=== PATIENT | male | born 1935 | race Caucasian/White ===

== ENCOUNTER 2018-01-25 08:56 | Outpatient (RCR) | payer MEDICARE, OTHER, SELFPAY ==
[2018-01-25 10:11] VITALS: BP 168/87; PULSE 67; RESP 18; TEMP 35.7; BMI 28.0
--- NOTE | 2018-01-25 11:51 | HP.PCM_ITS ---
(1) MRSA (methicillin resistant Staphylococcus aureus) infection Status: Acute Current Visit: Yes Code(s): A49.02 - Methicillin resistant Staphylococcus aureus infection, unspecified site (2) Malnutrition Status: Acute Current Visit: Yes Code(s): E46 - Unspecified protein-calorie malnutrition (3) Wound infection Status: Acute Current Visit: Yes Code(s): T14.8XXA - Other injury of unspecified body region, initial encounter; L08.9 - Local infection of the skin and subcutaneous tissue, unspecified (4) CKD (chronic kidney disease), stage III Status: Chronic Current Visit: Yes (5) Cellulitis Status: Chronic Current Visit: Yes Code(s): L03.90 - Cellulitis, unspecified (6) Lymphedema of lower extremity Status: Chronic Current Visit: Yes Qualifiers: Code(s): I89.0 - Lymphedema, not elsewhere classified (7) Nonstaphylococcal scalded skin syndrome Status: Chronic Current Visit: Yes Code(s): L53.8 - Other specified erythematous conditions History of Present Illness Date of Service: 01/25/18 Chief Complaint: Lymphedema legs, ruptured blister R great toe History of Wound: 82-year-old white male who has history of lymphedema and 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 Patient was last seen on for basically around the same thing. Patient has pumps at home he does use twice daily. Time patient complains that it is not only his lower leg but the sole of his foot that has developed a open ulcer. Patient complains that the drainage of clear fluid from his left leg is so much that it puddles all over his house which he finds annoying. So now he has developed cellulitis in the left lower leg with increased swelling and lymphedema. Patient has been soaking his foot and leg and a tub water but not Epson salt. We will be checking his pre-albumin and we did cultures today also will order him antibiotics because he finally has an infection and start him on levofloxacin cassettes when he was on last time and metronidazole because he did have anaerobes the last time. Past Medical History Past Medical History: Chronic Problems Cellulitis (Chronic) Lymphedema of lower extremity (Chronic) Nephrolithiasis (Chronic) Gout (Chronic) CKD (chronic kidney disease), stage III (Chronic) BPH (benign prostatic hyperplasia) (Chronic) Benign hypertension (Chronic) Anemia (Chronic) Chronic renal insufficiency, stage III (moderate) (Chronic) Nonstaphylococcal scalded skin syndrome (Chronic) Arthritis (Chronic) Past Medical History: Scalded skin syndrome left lower leg Surgical History: noncontributory Allergies/Adverse Reactions: Allergies No Known Allergies Allergy (Verified 04/13/17 14:20) Home Medications: Ambulatory Orders Medication Instructions Recorded Allopurinol 300 mg PO DAILY 10/10/16 Cholecalciferol (Vitamin D3) 50,000 unit PO BUGROS 10/10/16 [Vitamin D3] Doxazosin Mesylate 8 mg PO DAILY 10/10/16 Hydrochlorothiazide 12.5 mg PO TUTHSA PRN 10/10/16 Labetalol [Trandate (Beta Lily)] 200 mg PO BID 10/10/16 Lisinopril [Zestril] 40 mg PO DAILY 10/10/16 Pravastatin [Pravachol] 40 mg PO QHS 10/10/16 hydrALAZINE [Apresoline] 50 mg PO 4X/DAY 10/10/16 Acetaminophen [Tylenol Tablet] 650 mg PO Q6H PRN PRN tablet 04/15/17 Finasteride [Proscar] 5 mg PO DAILY #30 tablet 04/15/17 - Family History Paternal Diabetes Maternal Heart Disease Lives: With Family Smoking Status: Never smoker Alcohol: None Drugs: None Review of Systems Constitutional: Denies: Chills, Fever Eyes: Denies: Blurred vision, Drainage, Pain HEENT: Denies: Difficulty Hearing, Difficulty Swallowing, Sore Throat, Visual Changes Cardiovascular: Denies: Chest Pain, Palpitations, Syncope Respiratory: Denies: Cough, Shortness of Breath Gastrointestinal: Denies: Abdominal Pain, Nausea, Vomiting Genitourinary: Denies: Dysuria, Frequency Musculoskeletal: Denies: Joint Pain, Muscle pain Skin: Reports: - - Altered syndrome to left lower leg. Denies: Jaundice, Rash Neurological: Denies: Balance problems, Change in Speech, Difficulty swallowing , Focal weakness Psychiatric: Denies: Anxiety, Depression Endocrine: Denies: Change in Body Habitus Hematologic/ Lymphatic: Denies: Adenopathy - Physical Exam Vital Signs Temp Pulse Resp BP 96.2 F L 67 18 168/87 H 01/25/18 10:11 01/25/18 10:11 01/25/18 10:11 01/25/18 10:11 General: Oriented x3, Cooperative, Well developed HEENT: Atraumatic, PERRLA Oral: Moist Mucosa Neck: Supple, No JVD Lungs: Clear to auscultation, Normal air movement Cardiovascular: Regular rate, Regular Rhythm Abdomen: Bowel Sounds Present, Soft, Non Tender, No Hepato-splenomegaly Extremities: No clubbing, No edema, - - Scalded skin syndrome to left lower leg and on the pad of his left foot Wound Measurements and Assessment WC - Nurse 1 - General Ulcer Measurement Start: 01/25/18 09:27 Freq: Status: Active Protocol: Activity Type Activity Date Activity User E-Sign Co-Sign Detail Recorded Client Recorded Date Recorded By Document 01/25/18 10:11 DV [id number] 01/25/18 10:58 DV 01/25/18 10:11 Wound Center Nurse 1 [Ulcer Assessment] #5 Right Medial Ankle -Combined with other wound No -Current Size (cm) - Length 3.0 -Current Size (cm) - Width 3.0 -Current Size (cm) - Depth 0.1 -Total Square Cm 9.00 -Photo Taken Yes -Epithelialization None Present -Tunneling No -Undermining/Tunneling No -Circular Undermining No -Classification - Thickness Full Thickness without Exposed Support Structure -Exudate Amt Small (1-33%) -Exudate Type Serosanguineous -Wound Margin Flat & Intact -Granulation Amt None Present (0 %) -Granulation Quality N/A -Slough/Fibrin Yes -Necrosis Amt Large (67-100%) -Necrotic Tissue Type Adherent Slough -Structure Exposed None/Limited to Skin Breakdown -Texture ([place]-wound Skin Appearance) Assessed Excoriation Localized Edema Scarring Rash -Moisture ([place]-wound Skin Appearance Assessed ) Maceration Weeping Dry/Scaly -Color ([place]-wound Skin Appearance) Assessed Erythema Hemosiderin Staining -Temperature ([place]-wound Skin No Abnormality Appearance) (Pt Warm) -Tenderness on Palpation ([place]-wound Yes Skin Appearance) -Ulcer Cleansing Wound Cleanser -Foul Odor after Cleansing No -Anesthetic Used 4% Lidocaine Solution #4 LLE -Combined with other wound No -Current Size (cm) - Length 57.0 -Current Size (cm) - Width 54.5 -Current Size (cm) - Depth 0.3 -Total Square Cm 3106.50 -Photo Taken Yes -Epithelialization None Present -Tunneling No -Undermining/Tunneling No -Circular Undermining No -Classification - Thickness Full Thickness without Exposed Support Structure -Exudate Amt Large (67-100%) -Exudate Type Serosanguineous -Wound Margin Indistinct, Non -Visible -Granulation Amt Small (1-33%) -Granulation Quality Pale [place] Red -Slough/Fibrin Yes -Necrosis Amt Large (67-100%) -Necrotic Tissue Type Adherent Slough -Structure Exposed None/Limited to Skin Breakdown -Texture ([place]-wound Skin Appearance) Assessed Excoriation Localized Edema Scarring Rash -Moisture ([place]-wound Skin Appearance Assessed ) Maceration Weeping Dry/Scaly -Color ([place]-wound Skin Appearance) Assessed Erythema Mottled -Temperature ([place]-wound Skin No Abnormality Appearance) (Pt Warm) -Tenderness on Palpation ([place]-wound Yes Skin Appearance) -Ulcer Cleansing Wound Cleanser -Foul Odor after Cleansing Yes -Anesthetic Used 4% Lidocaine Solution [Edema Assessment] -Lower Limb Edema Present Yes -Right Calf (cm) 33.2 -Right Ankle (cm) 32.3 -Left Calf (cm) 44.5 -Left Ankle (cm) 32.4 WC - Nurse 2 - General Ulcer CM Notes Start: 01/25/18 09:27 Freq: Status: Active Protocol: Activity Type Activity Date Activity User E-Sign Co-Sign Detail Recorded Client Recorded Date Recorded By Document 01/25/18 11:25 MW [id number] 01/25/18 11:33 MW 01/25/18 11:25 Wound Center Nurse 2 [Procedure/Treatment] #5 Right Medial Ankle -Time 11:31 -Correct Patient Yes -Correct Side, Site, Position Yes -Correct Procedure Yes -Procedure Performed No -Post Debridement Size (cm) - Length 0 -Post Debridement Size (cm) - Width 0 -Post Debridement Size (cm) - Depth 0 -Total Square Cm 0 -Wound/Ulcer Outcome Healed- Epithelialized -Ulcer Cleansing Rinsed/ Irrigated with Saline -Foul Odor after Cleansing No -Bioengineered Tissue No -Bleeding Controlled with NA -Treatment Response Procedure Tolerated Well #4 LLE -Time 11:28 -Correct Patient Yes -Correct Side, Site, Position Yes -Correct Procedure Yes -Procedure Performed No -Post Debridement Size (cm) - Length 57.0 -Post Debridement Size (cm) - Width 54.5 -Post Debridement Size (cm) - Depth 0.3 -Total Square Cm 3106.50 -Wound/Ulcer Outcome Not Healed -Ulcer Cleansing Rinsed/ Irrigated with Saline -Foul Odor after Cleansing No -Bioengineered Tissue No -Bleeding Controlled with NA -Treatment Response Procedure Tolerated Well [See Physician Procedure note for Specifics] Musculoskeletal: No Tenderness to Palpation of Joints or Extremities Lymphatic: No Cervical, Supraclavicular, or Inguinal Adenopathy Neurological: Cranial nerves II-XII grossly intact, Neuro grossly intact Psych/Mental Status: Normal Affect, Appropriate Debridement Note Post-Debridement Measurements/Treatment WC - Nurse 2 - General Ulcer CM Notes Start: 01/25/18 09:27 Freq: Status: Active Protocol: Activity Type Activity Date Activity User E-Sign Co-Sign Detail Recorded Client Recorded Date Recorded By Document 01/25/18 11:25 MW [id number] 01/25/18 11:33 MW 01/25/18 11:25 Wound Center Nurse 2 #5 Right Medial Ankle -Time 11:31 -Correct Patient Yes -Correct Side, Site, Position Yes -Correct Procedure Yes -Procedure Performed No -Post Debridement Size (cm) - Length 0 -Post Debridement Size (cm) - Width 0 -Post Debridement Size (cm) - Depth 0 -Total Square Cm 0 -Wound/Ulcer Outcome Healed- Epithelialized -Ulcer Cleansing Rinsed/ Irrigated with Saline -Foul Odor after Cleansing No -Bioengineered Tissue No -Bleeding Controlled with NA -Treatment Response Procedure Tolerated Well #4 LLE -Time 11:28 -Correct Patient Yes -Correct Side, Site, Position Yes -Correct Procedure Yes -Procedure Performed No -Post Debridement Size (cm) - Length 57.0 -Post Debridement Size (cm) - Width 54.5 -Post Debridement Size (cm) - Depth 0.3 -Total Square Cm 3106.50 -Wound/Ulcer Outcome Not Healed -Ulcer Cleansing Rinsed/ Irrigated with Saline -Foul Odor after Cleansing No -Bioengineered Tissue No -Bleeding Controlled with NA -Treatment Response Procedure Tolerated Well No debridement was completed today Assessment/Plan Cultures obtained started on antibiotics will get labs of CBC and a pre-albumin Active Problems Cellulitis (Chronic) Lymphedema of lower extremity (Chronic) CKD (chronic kidney disease), stage III (Chronic) Wound infection (Acute) MRSA (methicillin resistant Staphylococcus aureus) infection (Acute) Malnutrition (Acute) Nonstaphylococcal scalded skin syndrome (Chronic) Assessment: Lymphedema bilateral lower legs. Cellulitis left leg. Renal insufficiency. MRSA and wound infections Plan: Wash leg with Hibiclens well then. Wrap left lower leg with Xeroform dressings cover with Barb tape and double layer Tubigrip's to bilateral lower legs. Until the order comes and will be using herself to open areas optic to red areas and Barb and double layer Tubigrip. Heart levofloxacin 751 p.o. daily for 14 days and metronidazole 253 times a day ?14 days\. Call with results of his labs. Up in 1 week
[2018-01-25 16:47] LABS: Absolute Lymphocyte Count 0.49 X10^3/ul (0.83-4.51); Absolute Neutrophil Count 4.9 X10^3/uL (2.0-7.7); Differential Indicated SCAN CRITERIA MET; Eosinophil# 0.04 X10^3/uL; Eosinophils% 0.7 % (0-5); Hematocrit 35.8 % (40-54); Lymphocyte # 0.49 X10^3/ul (4.0); Lymphocyte % 8.5 % (19-41); Mean Corp Hgb Conc 30.7 g/gl (32-36); Mean Corpuscular Hgb 29.4 pg (27.0-32.0); Mean Corpuscular Volume 95.7 fL (80-94); Mean Platelet Vol. 10.3 fl (6.2-12.0); Monocyte# 0.39 X10^3/uL; Monocyte% 6.7 % (0-10); Neutrophil # 4.85 X10^3/uL (2.7-7.7); Neutrophil % 83.9 % (47-70); POSITIVE COUNT NO; POSITIVE DIFFERENTIAL YES; POSITIVE MORPHOLOGY NO; Platelet Count 181 K/mm3 (150-450); RBC Distribution Width CV 14.2 % (11.6-14.6); RBC Distribution Width SD 48.7 fl (35.1-43.9); Red Blood Count 3.74 M/mm3 (4.6-6.2); White Blood Count 5.8 K/mm3 (4.4-11.0)
== END 2018-01-26 23:59 ==
LOC: WC 08:56
PROVIDERS: Family Provider Family Medicine; PCP Family Medicine; Visit Provider Nurse Practitioner
DX: T14.8XXA Other injury of unspecified body region, initial encounter (principal); L08.9 Local infection of the skin and subcutaneous tissue, unspecified; Z86.14 Personal history of Methicillin resistant Staphylococcus aureus infection; N18.3 Chronic kidney disease, stage 3 (moderate); I89.0 Lymphedema, not elsewhere classified; L03.90 Cellulitis, unspecified; L53.8 Other specified erythematous conditions; M19.90 Unspecified osteoarthritis, unspecified site; N40.0 Benign prostatic hyperplasia without lower urinary tract symptoms; M10.9 Gout, unspecified; Z79.899 Other long term (current) drug therapy
CPT/HCPCS: 84134; 85025; 87070; 87075; 87077; 87186; 87205; 99211; 99213; G0463

== ENCOUNTER 2018-02-15 10:30 | Outpatient (RCR) | payer MEDICARE, OTHER, SELFPAY ==
[2018-01-27 01:25] VITALS: PULSE 67; RESP 18; TEMP 35.7
[2018-02-01 09:58] VITALS: BP 92/46; PULSE 67; RESP 18; TEMP 35.7
--- NOTE | 2018-02-01 11:13 | PCM.WC.PN ---
(1) Wound infection Status: Acute Current Visit: No Code(s): T14.8XXA - Other injury of unspecified body region, initial encounter; L08.9 - Local infection of the skin and subcutaneous tissue, unspecified (2) Lymphedema of lower extremity Status: Chronic Current Visit: No Qualifiers: Code(s): I89.0 - Lymphedema, not elsewhere classified (3) Staph aureus infection Status: Acute Current Visit: Yes Code(s): A49.01 - Methicillin susceptible Staphylococcus aureus infection, unspecified site (4) Staphylococcal scalded skin syndrome Status: Acute Current Visit: Yes Code(s): L00 - Staphylococcal scalded skin syndrome Type of Wound Date of Service: 02/01/18 Chief Complaint: Lymphedema legs, ruptured blister R great toe History of Wound: 82-year-old white male who has history of lymphedema and 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 Patient was last seen on for basically around the same thing. Patient has pumps at home he does use twice daily. Time patient complains that it is not only his lower leg but the sole of his foot that has developed a open ulcer. Patient complains that the drainage of clear fluid from his left leg is so much that it puddles all over his house which he finds annoying. So now he has developed cellulitis in the left lower leg with increased swelling and lymphedema. Patient has been soaking his foot and leg and a tub water but not Epson salt. We will be checking his pre-albumin and we did cultures today also will order him antibiotics because he finally has an infection and start him on levofloxacin cassettes when he was on last time and metronidazole because he did have anaerobes the last time. Progress of Wound: The left lower leg is already started to improve using Xeroform. Patient has only been on Levaquin for 2 days but already showing improvement. Will continue the same treatment. Cultures came back positive for staph aureus no anaerobes were noted. - Physical Exam Vital Signs Temp Pulse Resp BP 96.2 F L 67 18 92/46 L 02/01/18 09:58 02/01/18 09:58 02/01/18 09:58 02/01/18 09:58 General: Oriented x3, Cooperative, Well developed HEENT: Atraumatic, PERRLA Oral: Moist Mucosa Neck: Supple, No JVD Lungs: Clear to auscultation, Normal air movement Cardiovascular: Regular rate, Regular Rhythm Abdomen: Bowel Sounds Present, Soft, Non Tender, No Hepato-splenomegaly Extremities: No clubbing, No edema, Edema, - - Scalded skin syndrome left lower leg, edema Wound Measurements and Assessment WC - Nurse 1 - General Ulcer Measurement Start: 02/01/18 09:54 Freq: Status: Active Protocol: Activity Type Activity Date Activity User E-Sign Co-Sign Detail Recorded Client Recorded Date Recorded By Document 02/01/18 09:58 BMF [id number] 02/01/18 10:15 BMF 02/01/18 09:58 Wound Center Nurse 1 [Ulcer Assessment] #4 LLE -Combined with other wound No -Current Size (cm) - Length 40 -Current Size (cm) - Width 36 -Current Size (cm) - Depth 0.1 -Total Square Cm 1440 -Photo Taken No -Tunneling No -Undermining/Tunneling No -Exudate Amt Large (67-100%) -Exudate Type Serosanguineous -Granulation Amt Large (67-100%) -Granulation Quality Red -Slough/Fibrin Yes -Necrosis Amt Small (1-33%) -Necrotic Tissue Type Adherent Slough -Structure Exposed None/Limited to Skin Breakdown -Texture ([place]-wound Skin Appearance) Scarring -Moisture ([place]-wound Skin Appearance Maceration ) Weeping Dry/Scaly -Color ([place]-wound Skin Appearance) Erythema Hemosiderin Staining -Temperature ([place]-wound Skin No Abnormality Appearance) (Pt Warm) -Tenderness on Palpation ([place]-wound No Skin Appearance) -Ulcer Cleansing Wound Cleanser -Foul Odor after Cleansing No -Anesthetic Used 4% Lidocaine Solution [Edema Assessment] -Lower Limb Edema Present Yes -Left Calf (cm) 38.3 -Left Ankle (cm) 36 WC - Nurse 2 - General Ulcer CM Notes Start: 02/01/18 09:54 Freq: Status: Active Protocol: Activity Type Activity Date Activity User E-Sign Co-Sign Detail Recorded Client Recorded Date Recorded By Document 02/01/18 10:31 MW [id number] 02/01/18 10:33 MW 02/01/18 10:31 Wound Center Nurse 2 [Procedure/Treatment] #4 LLE -Time 10:31 -Correct Patient Yes -Correct Side, Site, Position Yes -Correct Procedure Yes -Procedure Performed Yes -Type of Procedure Debridement -Clinical Debridement Selective -Post Debridement Size (cm) - Length 40.0 -Post Debridement Size (cm) - Width 26.0 -Post Debridement Size (cm) - Depth 0.1 -Total Square Cm 1040.00 -Wound/Ulcer Outcome Not Healed -Ulcer Cleansing Rinsed/ Irrigated with Saline -Foul Odor after Cleansing No -Bioengineered Tissue No -Bleeding Controlled with Pressure -Treatment Response Procedure Tolerated Well [See Physician Procedure note for Specifics] Pain Scale: 0-10 Numeric [Pain] -Is Patient Pain Free? Yes Musculoskeletal: No Tenderness to Palpation of Joints or Extremities Lymphatic: No Cervical, Supraclavicular, or Inguinal Adenopathy Neurological: Cranial nerves II-XII grossly intact, Neuro grossly intact Psych/Mental Status: Normal Affect, Appropriate, Alert and oriented to time, place, person, mood and affect Debridement Note Post-Debridement Measurements/Treatment WC - Nurse 2 - General Ulcer CM Notes Start: 02/01/18 09:54 Freq: Status: Active Protocol: Activity Type Activity Date Activity User E-Sign Co-Sign Detail Recorded Client Recorded Date Recorded By Document 02/01/18 10:31 MW [id number] 02/01/18 10:33 MW 02/01/18 10:31 Wound Center Nurse 2 #4 LLE -Time 10:31 -Correct Patient Yes -Correct Side, Site, Position Yes -Correct Procedure Yes -Procedure Performed Yes -Type of Procedure Debridement -Clinical Debridement Selective -Post Debridement Size (cm) - Length 40.0 -Post Debridement Size (cm) - Width 26.0 -Post Debridement Size (cm) - Depth 0.1 -Total Square Cm 1040.00 -Wound/Ulcer Outcome Not Healed -Ulcer Cleansing Rinsed/ Irrigated with Saline -Foul Odor after Cleansing No -Bioengineered Tissue No -Bleeding Controlled with Pressure -Treatment Response Procedure Tolerated Well Pain Scale: 0-10 Numeric Is Patient Pain Free? Yes Wound debrided: Lower leg scalded syndrome Type of Debridement: Selective debridement Anesthesia Used: 5% Lidocaine Gel Depth: Down to and including healthy tissue Percentage of wound debrided: 100 Instrument Used: - - Because Tissue Removed: Devitalized tissue some fibrin Severity: Limited To Skin Breakdown Amount of bleeding with debridement: None Bleeding Controlled with: Pressure Patient tolerated procedure well Assessment/Plan Active Problems Staph aureus infection (Acute) Staphylococcal scalded skin syndrome (Acute) Assessment: Lymphedema bilateral lower legs. Cellulitis left leg. Renal insufficiency. MRSA and wound infections Plan: Wash leg with Hibiclens well then. Wrap left lower leg with Xeroform dressings cover with Barb tape and double layer Tubigrip's to bilateral lower legs. Until the order comes and will be using herself to open areas optic to red areas and Barb and double layer Tubigrip. New Levaquin 750 1 p.o. daily for infection on the leg and you the metronidazole. Heart levofloxacin 751 p.o. daily for 14 days and metronidazole 253 times a day ?14 days\. Call with results of his labs. Up in 1 week
[2018-02-08 11:19] VITALS: BP 130/59; PULSE 69; RESP 18; TEMP 36.6
--- NOTE | 2018-02-08 14:12 | PCM.WC.PN ---
(1) Wound infection Status: Acute Current Visit: Yes Code(s): T14.8XXA - Other injury of unspecified body region, initial encounter; L08.9 - Local infection of the skin and subcutaneous tissue, unspecified (2) Lymphedema of lower extremity Status: Chronic Current Visit: Yes Qualifiers: Code(s): I89.0 - Lymphedema, not elsewhere classified (3) Staph aureus infection Status: Acute Current Visit: Yes Code(s): A49.01 - Methicillin susceptible Staphylococcus aureus infection, unspecified site (4) Staphylococcal scalded skin syndrome Status: Acute Current Visit: Yes Code(s): L00 - Staphylococcal scalded skin syndrome Type of Wound Date of Service: 02/08/18 Chief Complaint: Lymphedema legs, ruptured blister R great toe History of Wound: 82-year-old white male who has history of lymphedema and 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 Patient was last seen on for basically around the same thing. Patient has pumps at home he does use twice daily. Time patient complains that it is not only his lower leg but the sole of his foot that has developed a open ulcer. Patient complains that the drainage of clear fluid from his left leg is so much that it puddles all over his house which he finds annoying. So now he has developed cellulitis in the left lower leg with increased swelling and lymphedema. Patient has been soaking his foot and leg and a tub water but not Epson salt. We will be checking his pre-albumin and we did cultures today also will order him antibiotics because he finally has an infection and start him on levofloxacin cassettes when he was on last time and metronidazole because he did have anaerobes the last time. Progress of Wound: The left lower leg is already started to improve using Xeroform. Patient has only been on Levaquin for 2 days but already showing improvement. Will continue the same treatment. Cultures came back positive for staph aureus no anaerobes were noted. Having issues with the ankles breaking down from the Tubigrip will try padding better. Patient is doing his own dressing changes we debrided more on the left lateral lower leg of slough will start him on Aquacel there in those open areas - Physical Exam Vital Signs Temp Pulse Resp BP 97.8 F 69 18 130/59 H 02/08/18 11:19 02/08/18 11:19 02/08/18 11:19 02/08/18 11:19 General: Oriented x3, Cooperative, Well developed HEENT: Atraumatic, PERRLA Oral: Moist Mucosa Neck: Supple, No JVD Lungs: Clear to auscultation, Normal air movement Cardiovascular: Regular rate, Regular Rhythm Abdomen: Bowel Sounds Present, Soft, Non Tender, No Hepato-splenomegaly Extremities: No clubbing, No edema Skin: - - scalded skin syndrome open ulcers left lateral lower leg Wound Measurements and Assessment WC - Nurse 1 - General Ulcer Measurement Start: 02/01/18 09:54 Freq: Status: Active Protocol: Activity Type Activity Date Activity User E-Sign Co-Sign Detail Recorded Client Recorded Date Recorded By Document 02/08/18 11:19 [id number] 02/08/18 11:23 02/08/18 11:19 Wound Center Nurse 1 [Ulcer Assessment] #4 LLE -Combined with other wound No -Current Size (cm) - Length 35.0 -Current Size (cm) - Width 28.0 -Current Size (cm) - Depth 0.2 -Total Square Cm 980.00 -Photo Taken No -Epithelialization Small 1-33% -Tunneling No -Undermining/Tunneling No -Circular Undermining No -Classification - Thickness Full Thickness without Exposed Support Structure -Exudate Amt Large (67-100%) -Exudate Type Serous -Wound Margin Fibrotic Scar, Thickened Scar -Granulation Amt Large (67-100%) -Granulation Quality Red -Slough/Fibrin Yes -Necrosis Amt Small (1-33%) -Necrotic Tissue Type Adherent Slough -Structure Exposed Fascia Fat Layer Exposed -Texture ([place]-wound Skin Appearance) Excoriation Friable Localized Edema Scarring -Moisture ([place]-wound Skin Appearance Maceration ) Weeping -Color ([place]-wound Skin Appearance) Erythema Hemosiderin Staining -Temperature ([place]-wound Skin No Abnormality Appearance) (Pt Warm) -Tenderness on Palpation ([place]-wound Yes Skin Appearance) -Ulcer Cleansing hibiclens -Foul Odor after Cleansing No -Anesthetic Used 4% Lidocaine Solution [Edema Assessment] -Lower Limb Edema Present Yes -Right Calf (cm) 47.0 -Right Ankle (cm) 38.5 -Right Foot (cm) 30.0 -Left Calf (cm) 41.5 -Left Ankle (cm) 38.5 -Left Foot (cm) 30.0 WC - Nurse 2 - General Ulcer CM Notes Start: 02/01/18 09:54 Freq: Status: Active Protocol: Activity Type Activity Date Activity User E-Sign Co-Sign Detail Recorded Client Recorded Date Recorded By Document 02/08/18 11:41 MW [id number] 02/08/18 11:49 MW 02/08/18 11:41 Wound Center Nurse 2 [Procedure/Treatment] #4 LLE -Time 11:41 -Correct Patient Yes -Correct Side, Site, Position Yes -Correct Procedure Yes -Procedure Performed Yes -Type of Procedure Debridement -Clinical Debridement Subcutaneous -Post Debridement Size (cm) - Length 6.8 -Post Debridement Size (cm) - Width 8.0 -Post Debridement Size (cm) - Depth 0.1 -Total Square Cm 54.40 -Wound/Ulcer Outcome Not Healed -Ulcer Cleansing Rinsed/ Irrigated with Saline -Foul Odor after Cleansing No -Bioengineered Tissue No -Bleeding Controlled with Pressure -Treatment Response Procedure Tolerated Well [See Physician Procedure note for Specifics] Pain Scale: 0-10 Numeric [Pain] -Is Patient Pain Free? Yes Musculoskeletal: No Tenderness to Palpation of Joints or Extremities Lymphatic: No Cervical, Supraclavicular, or Inguinal Adenopathy Neurological: Cranial nerves II-XII grossly intact, Neuro grossly intact Psych/Mental Status: Normal Affect, Appropriate, Alert and oriented to time, place, person, mood and affect Debridement Note Post-Debridement Measurements/Treatment WC - Nurse 2 - General Ulcer CM Notes Start: 02/01/18 09:54 Freq: Status: Active Protocol: Activity Type Activity Date Activity User E-Sign Co-Sign Detail Recorded Client Recorded Date Recorded By Document 02/01/18 10:31 MW [id number] 02/01/18 10:33 MW Document 02/08/18 11:41 MW [id number] 02/08/18 11:49 MW 02/01/18 02/08/18 10:31 11:41 Wound Center Nurse 2 #4 LLE -Time 10:31 11:41 -Correct Patient Yes Yes -Correct Side, Site, Position Yes Yes -Correct Procedure Yes Yes -Procedure Performed Yes Yes -Type of Procedure Debridement Debridement -Clinical Debridement Selective Subcutaneous -Post Debridement Size (cm) - Length 40.0 6.8 -Post Debridement Size (cm) - Width 26.0 8.0 -Post Debridement Size (cm) - Depth 0.1 0.1 -Total Square Cm 1040.00 54.40 -Wound/Ulcer Outcome Not Healed Not Healed -Ulcer Cleansing Rinsed/ Rinsed/ Irrigated with Irrigated with Saline Saline -Foul Odor after Cleansing No No -Bioengineered Tissue No No -Bleeding Controlled with Pressure Pressure -Treatment Response Procedure Procedure Tolerated Well Tolerated Well Pain Scale: 0-10 Numeric Is Patient Pain Free? Yes Yes Wound debrided: Left lateral lower leg Type of Debridement: Excisional debridement Anesthesia Used: 5% Lidocaine Gel Depth: Down to and including healthy tissue, in the subcutaneous layer Percentage of wound debrided: 100 Instrument Used: 5mm curette Tissue Removed: Slough Severity: Limited To Skin Breakdown Amount of bleeding with debridement: None Bleeding Controlled with: Compression and gauze Patient tolerated procedure well Assessment/Plan Active Problems Staph aureus infection (Acute) Staphylococcal scalded skin syndrome (Acute) Lymphedema of lower extremity (Chronic) Wound infection (Acute) Assessment: Lymphedema bilateral lower legs. Cellulitis left leg. Renal insufficiency. MRSA and wound infections Plan: Wash leg with Hibiclens well then. Wrap left ankle and foot area with Xeroform dressings. Left lateral lower leg use Aquacel to open areas moistened cover gauze with Barb tape and double layer Tubigrip's to bilateral lower legs. Until the order comes and will be using herself to open areas optic to red areas and Barb and try cotton sleeve underneath Tubigrip double layer Tubigrip. New Levaquin 750 1 p.o. daily for infection on the leg and you the metronidazole. Heart levofloxacin 751 p.o. daily for 14 days and metronidazole 253 times a day ?14 days\. Up in 1 week
[2018-02-15 11:01] VITALS: RESP 16; TEMP 36.4
--- NOTE | 2018-02-15 12:39 | PCM.WC.PN ---
(1) Wound infection Status: Acute Current Visit: Yes Code(s): T14.8XXA - Other injury of unspecified body region, initial encounter; L08.9 - Local infection of the skin and subcutaneous tissue, unspecified (2) Lymphedema of lower extremity Status: Chronic Current Visit: Yes Qualifiers: Code(s): I89.0 - Lymphedema, not elsewhere classified (3) Staph aureus infection Status: Acute Current Visit: Yes Code(s): A49.01 - Methicillin susceptible Staphylococcus aureus infection, unspecified site (4) Staphylococcal scalded skin syndrome Status: Acute Current Visit: Yes Code(s): L00 - Staphylococcal scalded skin syndrome Type of Wound Date of Service: 02/15/18 Chief Complaint: Lymphedema legs, ruptured blister R great toe History of Wound: 82-year-old white male who has history of lymphedema and 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 Patient was last seen on for basically around the same thing. Patient has pumps at home he does use twice daily. Time patient complains that it is not only his lower leg but the sole of his foot that has developed a open ulcer. Patient complains that the drainage of clear fluid from his left leg is so much that it puddles all over his house which he finds annoying. So now he has developed cellulitis in the left lower leg with increased swelling and lymphedema. Patient has been soaking his foot and leg and a tub water but not Epson salt. We will be checking his pre-albumin and we did cultures today also will order him antibiotics because he finally has an infection and start him on levofloxacin cassettes when he was on last time and metronidazole because he did have anaerobes the last time. Progress of Wound: The left lower leg scalded skin is resolving. Patient has only been on Levaquin for 2 days but already showing improvement. Using Aquacel silver on the lateral left lower leg ulcers which is still wiping out a lot of slough but he does well and fluid buildup develops. Will continue the same treatment. Cultures came back positive for staph aureus no anaerobes were noted. We are using cotton sleeves under his ACEs and Tubigrip's which seem to be helping a lot with skin breakdown. Patient is doing his own dressing changes . - Physical Exam Vital Signs Temp Pulse Resp BP 97.5 F L 69 16 130/59 H 02/15/18 11:01 02/08/18 11:19 02/15/18 11:01 02/08/18 11:19 General: Oriented x3, Cooperative, Well developed HEENT: Atraumatic, PERRLA Oral: Moist Mucosa Neck: Supple, No JVD Lungs: Clear to auscultation, Normal air movement Cardiovascular: Regular rate, Regular Rhythm Abdomen: Bowel Sounds Present, Soft, Non Tender, No Hepato-splenomegaly Extremities: No clubbing, Edema, - - Lymphedema bilateral lower legs Skin syndrome resolving Skin: Ulcer/ Wound - Left lower lateral leg ulcer Wound Measurements and Assessment - Nurse 1 - General Ulcer Measurement Start: 02/01/18 09:54 Freq: Status: Active Protocol: Activity Type Activity Date Activity User E-Sign Co-Sign Detail Recorded Client Recorded Date Recorded By Document 02/15/18 11:01 [facility] [id number] 02/15/18 11:22 [facility] 02/15/18 11:01 Wound Center Nurse 1 [Ulcer Assessment] #4 LLE -Combined with other wound No -Current Size (cm) - Length 10.4 -Current Size (cm) - Width 8.5 -Current Size (cm) - Depth 0.1 -Total Square Cm 88.40 -Photo Taken No -Epithelialization Small 1-33% -Tunneling No -Undermining/Tunneling No -Circular Undermining No -Exudate Amt Large (67-100%) -Exudate Type Serous -Wound Margin Distinct, Outline Attached -Granulation Amt Large (67-100%) -Granulation Quality Red -Slough/Fibrin No -Necrosis Amt None Present (0 %) -Structure Exposed None/Limited to Skin Breakdown -Texture ([place]-wound Skin Appearance) Excoriation Scarring -Moisture ([place]-wound Skin Appearance Maceration ) Weeping -Color ([place]-wound Skin Appearance) Erythema -Temperature ([place]-wound Skin No Abnormality Appearance) (Pt Warm) -Tenderness on Palpation ([place]-wound No Skin Appearance) -Ulcer Cleansing Wound Cleanser -Foul Odor after Cleansing No -Anesthetic Used 4% Lidocaine Solution [Edema Assessment] -Lower Limb Edema Present Yes -Right Calf (cm) 45.6 -Right Ankle (cm) 37.8 -Left Calf (cm) 43.7 -Left Ankle (cm) 39 WC - Nurse 2 - General Ulcer CM Notes Start: 02/01/18 09:54 Freq: Status: Active Protocol: Activity Type Activity Date Activity User E-Sign Co-Sign Detail Recorded Client Recorded Date Recorded By Document 02/15/18 11:31 MW [id number] 02/15/18 11:35 MW 02/15/18 11:31 Wound Center Nurse 2 [Procedure/Treatment] #4 LLE -Time 11:31 -Correct Patient Yes -Correct Side, Site, Position Yes -Correct Procedure Yes -Procedure Performed Yes -Type of Procedure Debridement -Clinical Debridement Subcutaneous -Post Debridement Size (cm) - Length 9.5 -Post Debridement Size (cm) - Width 8.0 -Post Debridement Size (cm) - Depth 0.2 -Total Square Cm 76.00 -Wound/Ulcer Outcome Not Healed -Ulcer Cleansing Rinsed/ Irrigated with Saline -Foul Odor after Cleansing No -Bioengineered Tissue No -Bleeding Controlled with Pressure -Treatment Response Procedure Tolerated Well [See Physician Procedure note for Specifics] Pain Scale: 0-10 Numeric [Pain] -Is Patient Pain Free? Yes Musculoskeletal: No Tenderness to Palpation of Joints or Extremities Lymphatic: No Cervical, Supraclavicular, or Inguinal Adenopathy Neurological: Cranial nerves II-XII grossly intact, Neuro grossly intact Psych/Mental Status: Normal Affect, Appropriate, Alert and oriented to time, place, person, mood and affect Debridement Note Post-Debridement Measurements/Treatment WC - Nurse 2 - General Ulcer CM Notes Start: 02/01/18 09:54 Freq: Status: Active Protocol: Activity Type Activity Date Activity User E-Sign Co-Sign Detail Recorded Client Recorded Date Recorded By Document 02/01/18 10:31 MW [id number] 02/01/18 10:33 MW Document 02/08/18 11:41 MW [id number] 02/08/18 11:49 MW Document 02/15/18 11:31 MW [id number] 02/15/18 11:35 MW 02/01/18 02/08/18 02/15/18 10:31 11:41 11:31 Wound Center Nurse 2 #4 LLE -Time 10:31 11:41 11:31 -Correct Patient Yes Yes Yes -Correct Side, Site, Position Yes Yes Yes -Correct Procedure Yes Yes Yes -Procedure Performed Yes Yes Yes -Type of Procedure Debridement Debridement Debridement -Clinical Debridement Selective Subcutaneous Subcutaneous -Post Debridement Size (cm) - Length 40.0 6.8 9.5 -Post Debridement Size (cm) - Width 26.0 8.0 8.0 -Post Debridement Size (cm) - Depth 0.1 0.1 0.2 -Total Square Cm 1040.00 54.40 76.00 -Wound/Ulcer Outcome Not Healed Not Healed Not Healed -Ulcer Cleansing Rinsed/ Rinsed/ Rinsed/ Irrigated with Irrigated with Irrigated with Saline Saline Saline -Foul Odor after Cleansing No No No -Bioengineered Tissue No No No -Bleeding Controlled with Pressure Pressure Pressure -Treatment Response Procedure Procedure Procedure Tolerated Well Tolerated Well Tolerated Well Pain Scale: 0-10 Numeric Is Patient Pain Free? Yes Yes Yes Wound debrided: Lateral lower leg ulcer Anesthesia Used: 5% Lidocaine Gel Depth: Down to and including healthy tissue, in the subcutaneous layer Instrument Used: 5mm curette Tissue Removed: Fibrin slough Severity: Limited To Skin Breakdown Amount of bleeding with debridement: Mild Bleeding Controlled with: Compression and gauze Patient tolerated procedure well Assessment/Plan Active Problems Staph aureus infection (Acute) Staphylococcal scalded skin syndrome (Acute) Lymphedema of lower extremity (Chronic) Wound infection (Acute) Assessment: Lymphedema bilateral lower legs. Cellulitis left leg. Renal insufficiency. MRSA and wound infections Plan: Wash leg with Hibiclens well then. Left lateral lower leg use Aquacel to open areas moistened cover gauze with Barb tape and double layer Tubigrip's to bilateral lower legs. Until the order comes and will be using herself to open areas optic to red areas and Barb and try cotton sleeve underneath Tubigrip double layer Tubigrip. New Levaquin 750 1 p.o. daily for infection on the leg and you the metronidizole. follow in 2 weeks
--- NOTE | 2018-02-15 12:44 | PN.PCM_ITS ---
(1) Wound infection Status: Acute Current Visit: Yes Code(s): T14.8XXA - Other injury of unspecified body region, initial encounter; L08.9 - Local infection of the skin and subcutaneous tissue, unspecified (2) Lymphedema of lower extremity Status: Chronic Current Visit: Yes Qualifiers: Code(s): I89.0 - Lymphedema, not elsewhere classified (3) Staph aureus infection Status: Acute Current Visit: Yes Code(s): A49.01 - Methicillin susceptible Staphylococcus aureus infection, unspecified site (4) Staphylococcal scalded skin syndrome Status: Acute Current Visit: Yes Code(s): L00 - Staphylococcal scalded skin syndrome Type of Wound Date of Service: 02/15/18 Chief Complaint: Lymphedema legs, ruptured blister R great toe History of Wound: 82-year-old white male who has history of lymphedema and 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 Patient was last seen on for basically around the same thing. Patient has pumps at home he does use twice daily. Time patient complains that it is not only his lower leg but the sole of his foot that has developed a open ulcer. Patient complains that the drainage of clear fluid from his left leg is so much that it puddles all over his house which he finds annoying. So now he has developed cellulitis in the left lower leg with increased swelling and lymphedema. Patient has been soaking his foot and leg and a tub water but not Epson salt. We will be checking his pre-albumin and we did cultures today also will order him antibiotics because he finally has an infection and start him on levofloxacin cassettes when he was on last time and metronidazole because he did have anaerobes the last time. Progress of Wound: The left lower leg scalded skin is resolving. Patient has only been on Levaquin for 2 days but already showing improvement. Using Aquacel silver on the lateral left lower leg ulcers which is still wiping out a lot of slough but he does well and fluid buildup develops. Will continue the same treatment. Cultures came back positive for staph aureus no anaerobes were noted. We are using cotton sleeves under his ACEs and Tubigrip's which seem to be helping a lot with skin breakdown. Patient is doing his own dressing changes . - Physical Exam Vital Signs Temp Pulse Resp BP 97.5 F L 69 16 130/59 H 02/15/18 11:01 02/08/18 11:19 02/15/18 11:01 02/08/18 11:19 General: Oriented x3, Cooperative, Well developed HEENT: Atraumatic, PERRLA Oral: Moist Mucosa Neck: Supple, No JVD Lungs: Clear to auscultation, Normal air movement Cardiovascular: Regular rate, Regular Rhythm Abdomen: Bowel Sounds Present, Soft, Non Tender, No Hepato-splenomegaly Extremities: No clubbing, Edema, - - Lymphedema bilateral lower legs Skin syndrome resolving Skin: Ulcer/ Wound - Left lower lateral leg ulcer Wound Measurements and Assessment - Nurse 1 - General Ulcer Measurement Start: 02/01/18 09:54 Freq: Status: Active Protocol: Activity Type Activity Date Activity User E-Sign Co-Sign Detail Recorded Client Recorded Date Recorded By Document 02/15/18 11:01 [facility] [id number] 02/15/18 11:22 [facility] 02/15/18 11:01 Wound Center Nurse 1 [Ulcer Assessment] #4 LLE -Combined with other wound No -Current Size (cm) - Length 10.4 -Current Size (cm) - Width 8.5 -Current Size (cm) - Depth 0.1 -Total Square Cm 88.40 -Photo Taken No -Epithelialization Small 1-33% -Tunneling No -Undermining/Tunneling No -Circular Undermining No -Exudate Amt Large (67-100%) -Exudate Type Serous -Wound Margin Distinct, Outline Attached -Granulation Amt Large (67-100%) -Granulation Quality Red -Slough/Fibrin No -Necrosis Amt None Present (0 %) -Structure Exposed None/Limited to Skin Breakdown -Texture (Charlotte-wound Skin Appearance) Excoriation Scarring -Moisture ([place]-wound Skin Appearance Maceration ) Weeping -Color ([place]-wound Skin Appearance) Erythema -Temperature ([place]-wound Skin No Abnormality Appearance) (Pt Warm) -Tenderness on Palpation ([place]-wound No Skin Appearance) -Ulcer Cleansing Wound Cleanser -Foul Odor after Cleansing No -Anesthetic Used 4% Lidocaine Solution [Edema Assessment] -Lower Limb Edema Present Yes -Right Calf (cm) 45.6 -Right Ankle (cm) 37.8 -Left Calf (cm) 43.7 -Left Ankle (cm) 39 WC - Nurse 2 - General Ulcer CM Notes Start: 02/01/18 09:54 Freq: Status: Active Protocol: Activity Type Activity Date Activity User E-Sign Co-Sign Detail Recorded Client Recorded Date Recorded By Document 02/15/18 11:31 MW [id number] 02/15/18 11:35 MW 02/15/18 11:31 Wound Center Nurse 2 [Procedure/Treatment] #4 LLE -Time 11:31 -Correct Patient Yes -Correct Side, Site, Position Yes -Correct Procedure Yes -Procedure Performed Yes -Type of Procedure Debridement -Clinical Debridement Subcutaneous -Post Debridement Size (cm) - Length 9.5 -Post Debridement Size (cm) - Width 8.0 -Post Debridement Size (cm) - Depth 0.2 -Total Square Cm 76.00 -Wound/Ulcer Outcome Not Healed -Ulcer Cleansing Rinsed/ Irrigated with Saline -Foul Odor after Cleansing No -Bioengineered Tissue No -Bleeding Controlled with Pressure -Treatment Response Procedure Tolerated Well [See Physician Procedure note for Specifics] Pain Scale: 0-10 Numeric [Pain] -Is Patient Pain Free? Yes Musculoskeletal: No Tenderness to Palpation of Joints or Extremities Lymphatic: No Cervical, Supraclavicular, or Inguinal Adenopathy Neurological: Cranial nerves II-XII grossly intact, Neuro grossly intact Psych/Mental Status: Normal Affect, Appropriate, Alert and oriented to time, place, person, mood and affect Debridement Note Post-Debridement Measurements/Treatment WC - Nurse 2 - General Ulcer CM Notes Start: 02/01/18 09:54 Freq: Status: Active Protocol: Activity Type Activity Date Activity User E-Sign Co-Sign Detail Recorded Client Recorded Date Recorded By Document 02/01/18 10:31 MW [id number] 02/01/18 10:33 MW Document 02/08/18 11:41 MW [id number] 02/08/18 11:49 MW Document 02/15/18 11:31 MW [id number] 02/15/18 11:35 MW 02/01/18 02/08/18 02/15/18 10:31 11:41 11:31 Wound Center Nurse 2 #4 LLE -Time 10:31 11:41 11:31 -Correct Patient Yes Yes Yes -Correct Side, Site, Position Yes Yes Yes -Correct Procedure Yes Yes Yes -Procedure Performed Yes Yes Yes -Type of Procedure Debridement Debridement Debridement -Clinical Debridement Selective Subcutaneous Subcutaneous -Post Debridement Size (cm) - Length 40.0 6.8 9.5 -Post Debridement Size (cm) - Width 26.0 8.0 8.0 -Post Debridement Size (cm) - Depth 0.1 0.1 0.2 -Total Square Cm 1040.00 54.40 76.00 -Wound/Ulcer Outcome Not Healed Not Healed Not Healed -Ulcer Cleansing Rinsed/ Rinsed/ Rinsed/ Irrigated with Irrigated with Irrigated with Saline Saline Saline -Foul Odor after Cleansing No No No -Bioengineered Tissue No No No -Bleeding Controlled with Pressure Pressure Pressure -Treatment Response Procedure Procedure Procedure Tolerated Well Tolerated Well Tolerated Well Pain Scale: 0-10 Numeric Is Patient Pain Free? Yes Yes Yes Wound debrided: Lateral lower leg ulcer Anesthesia Used: 5% Lidocaine Gel Depth: Down to and including healthy tissue, in the subcutaneous layer Instrument Used: 5mm curette Tissue Removed: Fibrin slough Severity: Limited To Skin Breakdown Amount of bleeding with debridement: Mild Bleeding Controlled with: Compression and gauze Patient tolerated procedure well Assessment/Plan Active Problems Staph aureus infection (Acute) Staphylococcal scalded skin syndrome (Acute) Lymphedema of lower extremity (Chronic) Wound infection (Acute) Assessment: Lymphedema bilateral lower legs. Cellulitis left leg. Renal insufficiency. MRSA and wound infections Plan: Wash leg with Hibiclens well then. Left lateral lower leg use Aquacel to open areas moistened cover gauze with Barb tape and double layer Tubigrip's to bilateral lower legs. Until the order comes and will be using herself to open areas optic to red areas and Barb and try cotton sleeve underneath Tubigrip double layer Tubigrip. New Levaquin 750 1 p.o. daily for infection on the leg and you the metronidizole. follow in 2 weeks
== END 2018-02-25 23:59 ==
LOC: WC 10:30
PROVIDERS: Family Provider Family Medicine; PCP Family Medicine; Visit Provider Nurse Practitioner
DX: I89.0 Lymphedema, not elsewhere classified (principal); L00 Staphylococcal scalded skin syndrome; A49.01 Methicillin susceptible Staphylococcus aureus infection, unspecified site; L03.116 Cellulitis of left lower limb; L08.9 Local infection of the skin and subcutaneous tissue, unspecified; L97.821 Non-pressure chronic ulcer of other part of left lower leg limited to breakdown of skin
CPT/HCPCS: 11042; 11045; 97597; 97598

== ENCOUNTER → 2018-03-01 13:27 | Outpatient (CLI) | payer MEDICARE, OTHER, SELFPAY ==
[2018-03-01 16:21] LABS: Anion Gap 5 (5-15); BUN 23 mg/dL (7-18); BUN/Creat Ratio 16.3 RATIO (10-20); Calcium,Total 8.2 mg/dL (8.5-10.1); Chloride 112 mmol/L (98-107); Creatinine, Serum 1.41 mg/dL (0.70-1.30); EST Glomerular Filtration Rate 51 mL/min (>60); Est Glom Filt Rate - Afr Amer 62 mL/min (>60); Glucose 91 mg/dL (74-106); Potassium 4.3 mmol/L (3.5-5.1); Sodium Level 145 mmol/L (136-145)
[2018-03-01 16:26] LABS: Vitamin D,25 Hydroxy 76.4 ng/mL (29.95-100.01)
[2018-03-01 16:47] LABS: Absolute Lymphocyte Count 0.51 X10^3/ul (0.83-4.51); Absolute Neutrophil Count 2.3 X10^3/uL (2.0-7.7); Eosinophil# 0.13 X10^3/uL; Eosinophils% 4.2 % (0-5); Hematocrit 32.6 % (40-54); Hemoglobin 9.8 g/dl (13.0-16.5); Lymphocyte # 0.51 X10^3/ul (4.0); Lymphocyte % 16.6 % (19-41); Mean Corp Hgb Conc 30.1 g/gl (32-36); Mean Corpuscular Hgb 29.6 pg (27.0-32.0); Mean Corpuscular Volume 98.5 fL (80-94); Monocyte# 0.17 X10^3/uL; Monocyte% 5.5 % (0-10); Neutrophil # 2.26 X10^3/uL (2.7-7.7); Neutrophil % 73.4 % (47-70); Platelet Count 101 K/mm3 (150-450); RBC Distribution Width CV 14.4 % (11.6-14.6); Red Blood Count 3.31 M/mm3 (4.6-6.2); White Blood Count 3.1 K/mm3 (4.4-11.0)
[2018-03-01 16:52] LABS: Differential Indicated SCAN CRITERIA MET; POSITIVE COUNT NO; POSITIVE DIFFERENTIAL YES; POSITIVE MORPHOLOGY NO
[2018-03-01 18:27] LABS: Differential Comment SCANNED; Platelet Estimate MOD DEC (ADEQ)
== END ==
PROVIDERS: Family Provider Family Medicine; PCP Family Medicine; Visit Provider Family Medicine
DX: D69.6 Thrombocytopenia, unspecified (principal); E55.9 Vitamin D deficiency, unspecified; N18.3 Chronic kidney disease, stage 3 (moderate); L00 Staphylococcal scalded skin syndrome; L97.821 Non-pressure chronic ulcer of other part of left lower leg limited to breakdown of skin; L03.116 Cellulitis of left lower limb; B95.62 Methicillin resistant Staphylococcus aureus infection as the cause of diseases classified elsewhere
CPT/HCPCS: 11042; 11045; 36415; 80048; 82306; 85025

== ENCOUNTER 2018-03-22 10:15 | Outpatient (RCR) | payer MEDICARE, OTHER, SELFPAY ==
[2018-02-26 01:03] VITALS: PULSE 69; RESP 16; TEMP 36.4
[2018-03-01 10:09] VITALS: BP 128/68; PULSE 62; RESP 18; TEMP 35.7
--- NOTE | 2018-03-04 14:06 | PCM.WC.PN ---
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 Current Visit: Yes Code(s): L00 - Staphylococcal scalded skin syndrome (4) Wound infection Status: Acute Current Visit: Yes Code(s): T14.8XXA - Other injury of unspecified body region, initial encounter; L08.9 - Local infection of the skin and subcutaneous tissue, unspecified (5) Anemia Status: Chronic Current Visit: Yes Qualifiers: Anemia type: iron deficiency Code(s): D64.9 - Anemia, unspecified (6) Cellulitis Status: Chronic Current Visit: Yes Qualifiers: Site of cellulitis: extremity Site of cellulitis of extremity: lower extremity Laterality: unspecified laterality Qualified Code(s): L03.119 - Cellulitis of unspecified part of limb Code(s): L03.90 - Cellulitis, unspecified Type of Wound Date of Service: 03/15/18 Chief Complaint: Lymphedema legs, ruptured blister R great toe History of Wound: 82-year-old white male who has history of lymphedema and 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 Patient was last seen on for basically around the same thing. Patient has pumps at home he does use twice daily. Time patient complains that it is not only his lower leg but the sole of his foot that has developed a open ulcer. Patient complains that the drainage of clear fluid from his left leg is so much that it puddles all over his house which he finds annoying. So now he has developed cellulitis in the left lower leg with increased swelling and lymphedema. Patient has been soaking his foot and leg and a tub water but not Epson salt. We will be checking his pre-albumin and we did cultures today also will order him antibiotics because he finally has an infection and start him on levofloxacin cassettes when he was on last time and metronidazole because he did have anaerobes the last time. Progress of Wound: The right lower leg scalded skin is resolved. the L lower leg scalded leg is improved but wases and wanes with swellling . Patient has finished his antibiotics. Using Aquacel silver on the lateral left lower leg ulcers which isclean today totally no slough seen and is 1/2 the size from 2 weeks ago. Will continue the same treatment. Since switching to rhea wraps ioana is doing better about his swelling and able to do his own fressing changes .Cultures came back positive for staph aureus no anaerobes were noted. We are using cotton sleeves under his ACEs and Tubigrip's which seem to be helping a lot with skin breakdown. Patient is doing his own dressing changes . - Physical Exam Vital Signs Temp Pulse Resp BP 96.2 F L 62 18 128/68 H 03/01/18 10:09 03/01/18 10:09 03/01/18 10:09 03/01/18 10:09 General: Oriented x3, Cooperative, Well developed HEENT: Atraumatic, PERRLA Oral: Moist Mucosa Neck: Supple, No JVD Lungs: Clear to auscultation, Normal air movement Cardiovascular: Regular rate, Regular Rhythm Abdomen: Bowel Sounds Present, Soft, Non Tender, No Hepato-splenomegaly Extremities: No clubbing, Edema, - - ulcer L lat leg and lymphadema Musculoskeletal: No Tenderness to Palpation of Joints or Extremities Lymphatic: No Cervical, Supraclavicular, or Inguinal Adenopathy Neurological: Cranial nerves II-XII grossly intact, Neuro grossly intact Psych/Mental Status: Normal Affect, Appropriate, Alert and oriented to time, place, person, mood and affect Debridement Note Post-Debridement Measurements/Treatment WC - Nurse 2 - General Ulcer CM Notes Start: 03/01/18 10:09 Freq: Status: Active Protocol: Activity Type Activity Date Activity User E-Sign Co-Sign Detail Recorded Client Recorded Date Recorded By Document 03/01/18 11:50 CAROLINE [id number] 03/01/18 11:51 CAROLINE 03/01/18 11:50 Wound Center Nurse 2 #4 LLE -Time 11:50 -Correct Patient Yes -Correct Side, Site, Position Yes -Correct Procedure Yes -Procedure Performed Yes -Type of Procedure Debridement -Clinical Debridement Subcutaneous -Post Debridement Size (cm) - Length 4.5 -Post Debridement Size (cm) - Width 3.0 -Post Debridement Size (cm) - Depth 0.2 -Total Square Cm 13.50 -Wound/Ulcer Outcome Not Healed -Ulcer Cleansing Rinsed/ Irrigated with Saline -Foul Odor after Cleansing No -Bioengineered Tissue No -Topical Lidocaine (%) 4 -Lidocaine (ml) 5 -Bleeding Controlled with NA -Treatment Response Procedure Tolerated Well Pain Scale: 0-10 Numeric Is Patient Pain Free? Yes Wound debrided: l lat lower leg Type of Debridement: Excisional debridement Anesthesia Used: 5% Lidocaine Gel Depth: Down to and including healthy tissue Percentage of wound debrided: 100 Instrument Used: 5mm curette Tissue Removed: fibrin Severity: Limited To Skin Breakdown Amount of bleeding with debridement: Mild Bleeding Controlled with: Compression and gauze Patient tolerated procedure well Assessment/Plan Active Problems Staph aureus infection (Acute) Staphylococcal scalded skin syndrome (Acute) Cellulitis (Chronic) Lymphedema of lower extremity (Chronic) Wound infection (Acute) Anemia (Chronic) Assessment: Lymphedema bilateral lower legs. Cellulitis left leg. Renal insufficiency. MRSA and wound infections Plan: Wash leg with Hibiclens well then. Left lateral lower leg use Aquacel to open areas moistened cover gauze with Barb tape. 4 inch and 6 inch rhea wraps to the legs. STill finishing the metronidazole. follow-up in 1 weeks
[2018-03-15 11:31] VITALS: BP 139/62; PULSE 67; RESP 18; TEMP 35.9
--- NOTE | 2018-03-15 12:58 | PN.PCM_ITS ---
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 Current Visit: Yes Code(s): L00 - Staphylococcal scalded skin syndrome (4) Wound infection Status: Acute Current Visit: Yes Code(s): T14.8XXA - Other injury of unspecified body region, initial encounter; L08.9 - Local infection of the skin and subcutaneous tissue, unspecified (5) Anemia Status: Chronic Current Visit: Yes Qualifiers: Anemia type: iron deficiency Code(s): D64.9 - Anemia, unspecified (6) Cellulitis Status: Chronic Current Visit: Yes Qualifiers: Site of cellulitis: extremity Site of cellulitis of extremity: lower extremity Laterality: unspecified laterality Qualified Code(s): L03.119 - Cellulitis of unspecified part of limb Code(s): L03.90 - Cellulitis, unspecified (7) Lymphedema of lower extremity Status: Chronic Current Visit: Yes Code(s): I89.0 - Lymphedema, not elsewhere classified Type of Wound Date of Service: 03/15/18 Chief Complaint: Lymphedema legs, ruptured blister R great toe History of Wound: 82-year-old white male who has history of lymphedema and 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 Patient was last seen on for basically around the same thing. Patient has pumps at home he does use twice daily. Time patient complains that it is not only his lower leg but the sole of his foot that has developed a open ulcer. Patient complains that the drainage of clear fluid from his left leg is so much that it puddles all over his house which he finds annoying. So now he has developed cellulitis in the left lower leg with increased swelling and lymphedema. Patient has been soaking his foot and leg and a tub water but not Epson salt. We will be checking his pre-albumin and we did cultures today also will order him antibiotics because he finally has an infection and start him on levofloxacin cassettes when he was on last time and metronidazole because he did have anaerobes the last time. Progress of Wound: The right lower leg scalded skin is resolved. the L lower leg scalded leg is improved but waxes and wanes with swellling . Patient has finished his antibiotics. Using Aquacel silver on the lateral left lower leg ulcers which is clean today totally no slough seen and is 1/2 the size from 2 weeks ago. Will continue the same treatment. Since switching to rhea wraps ioana is doing better about his swelling and able to do his own fressing changes .Cultures came back positive for staph aureus no anaerobes were noted. We are using cotton sleeves under his ACEs and Tubigrip's which seem to be helping a lot with skin breakdown. Patient is doing his own dressing changes . - Physical Exam Vital Signs Temp Pulse Resp BP 96.6 F L 67 18 139/62 H 03/15/18 11:31 03/15/18 11:31 03/15/18 11:31 03/15/18 11:31 General: Oriented x3, Cooperative, Well developed HEENT: Atraumatic, PERRLA Oral: Moist Mucosa Neck: Supple, No JVD Lungs: Clear to auscultation, Normal air movement Cardiovascular: Regular rate, Regular Rhythm Abdomen: Bowel Sounds Present, Soft, Non Tender, No Hepato-splenomegaly Extremities: No clubbing, No edema Skin: Ulcer/ Wound, - - scalded skin syndrome and ulcers Wound Measurements and Assessment WC - Nurse 1 - General Ulcer Measurement Start: 03/01/18 10:09 Freq: Status: Active Protocol: Activity Type Activity Date Activity User E-Sign Co-Sign Detail Recorded Client Recorded Date Recorded By Document 03/15/18 11:31 [id number] 03/15/18 11:49 DL 03/15/18 11:31 Wound Center Nurse 1 [Ulcer Assessment] #4 LLE -Current Size (cm) - Length 3 -Current Size (cm) - Width 2.6 -Current Size (cm) - Depth 0.2 -Total Square Cm 7.8 -Photo Taken No -Exudate Amt Large (67-100%) -Exudate Type Serosanguineous -Wound Margin Indistinct, Non -Visible -Granulation Amt Medium (34-66%) -Granulation Quality [place] -Necrosis Amt Medium (34-66%) -Necrotic Tissue Type Adherent Slough -Structure Exposed N/A -Texture ([place]-wound Skin Appearance) Excoriation -Moisture ([place]-wound Skin Appearance Weeping ) -Color ([place]-wound Skin Appearance) Erythema Hemosiderin Staining -Temperature ([place]-wound Skin No Abnormality Appearance) (Pt Warm) -Ulcer Cleansing Wound Cleanser -Foul Odor after Cleansing No -Anesthetic Used 4% Lidocaine Solution [Edema Assessment] -Left Calf (cm) 46 -Left Ankle (cm) 37 Musculoskeletal: No Tenderness to Palpation of Joints or Extremities Lymphatic: No Cervical, Supraclavicular, or Inguinal Adenopathy Neurological: Cranial nerves II-XII grossly intact, Neuro grossly intact Psych/Mental Status: Normal Affect, Appropriate, Alert and oriented to time, place, person, mood and affect Debridement Note Post-Debridement Measurements/Treatment WC - Nurse 2 - General Ulcer CM Notes Start: 03/01/18 10:09 Freq: Status: Active Protocol: Activity Type Activity Date Activity User E-Sign Co-Sign Detail Recorded Client Recorded Date Recorded By Document 03/01/18 11:50 CAROLINE [id number] 03/01/18 11:51 CAROLINE 03/01/18 11:50 Wound Center Nurse 2 #4 LLE -Time 11:50 -Correct Patient Yes -Correct Side, Site, Position Yes -Correct Procedure Yes -Procedure Performed Yes -Type of Procedure Debridement -Clinical Debridement Subcutaneous -Post Debridement Size (cm) - Length 4.5 -Post Debridement Size (cm) - Width 3.0 -Post Debridement Size (cm) - Depth 0.2 -Total Square Cm 13.50 -Wound/Ulcer Outcome Not Healed -Ulcer Cleansing Rinsed/ Irrigated with Saline -Foul Odor after Cleansing No -Bioengineered Tissue No -Topical Lidocaine (%) 4 -Lidocaine (ml) 5 -Bleeding Controlled with NA -Treatment Response Procedure Tolerated Well Pain Scale: 0-10 Numeric Is Patient Pain Free? Yes Wound debrided: Lateral lower leg ulcer Type of Debridement: Excisional debridement Anesthesia Used: 5% Lidocaine Gel Depth: Down to and including healthy tissue, in the subcutaneous layer Instrument Used: 5mm curette Tissue Removed: Slough and fibrin Severity: Limited To Skin Breakdown Amount of bleeding with debridement: None Bleeding Controlled with: Pressure Patient tolerated procedure well Assessment/Plan Recultured anaerobic and aerobic to lower legs Active Problems Staph aureus infection (Acute) Staphylococcal scalded skin syndrome (Acute) Cellulitis (Chronic) Lymphedema of lower extremity (Chronic) Wound infection (Acute) Anemia (Chronic) Assessment: Lymphedema bilateral lower legs. Cellulitis left leg. Renal insufficiency. MRSA and wound infections Plan: Wash leg with Hibiclens well then. Left lateral lower leg use Aquacel to open areas moistened cover gauze with Barb tape. 4 inch and 6 inch rhea wraps to the legs. Call if there is difference in cultures. follow-up in 1 weeks
[2018-03-22 11:11] VITALS: BP 156/59; PULSE 63; RESP 18; TEMP 36.4
--- NOTE | 2018-03-22 13:07 | PCM.WC.PN ---
(1) Malnutrition Status: Acute Current Visit: Yes Qualifiers: Malnutrition type: protein-calorie malnutrition Code(s): E46 - Unspecified protein-calorie malnutrition (2) Staph aureus infection Status: Acute Current Visit: Yes Code(s): A49.01 - Methicillin susceptible Staphylococcus aureus infection, unspecified site (3) Staphylococcal scalded skin syndrome Status: Acute Current Visit: Yes Code(s): L00 - Staphylococcal scalded skin syndrome (4) Wound infection Status: Acute Current Visit: Yes Code(s): T14.8XXA - Other injury of unspecified body region, initial encounter; L08.9 - Local infection of the skin and subcutaneous tissue, unspecified (5) Anemia Status: Chronic Current Visit: Yes Qualifiers: Anemia type: iron deficiency Code(s): D64.9 - Anemia, unspecified (6) Cellulitis Status: Chronic Current Visit: Yes Qualifiers: Site of cellulitis: extremity Site of cellulitis of extremity: lower extremity Laterality: unspecified laterality Qualified Code(s): L03.119 - Cellulitis of unspecified part of limb Code(s): L03.90 - Cellulitis, unspecified Type of Wound Date of Service: 03/22/18 Chief Complaint: Lymphedema legs, ruptured blister R great toe History of Wound: 82-year-old white male who has history of lymphedema and 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 Patient was last seen on for basically around the same thing. Patient has pumps at home he does use twice daily. Time patient complains that it is not only his lower leg but the sole of his foot that has developed a open ulcer. Patient complains that the drainage of clear fluid from his left leg is so much that it puddles all over his house which he finds annoying. So now he has developed cellulitis in the left lower leg with increased swelling and lymphedema. Patient has been soaking his foot and leg and a tub water but not Epson salt. We will be checking his pre-albumin and we did cultures today also will order him antibiotics because he finally has an infection and start him on levofloxacin cassettes when he was on last time and metronidazole because he did have anaerobes the last time. Progress of Wound: The L lower leg scalded leg is improved but waxes and wanes with swellling . The recultures show staph again .Will restart levofloxin and continue the xeroform dressing changes. Using Aquacel silver on the lateral left lower leg ulcers which is clean today totally no slough seen and is 1/2 the size from 2 weeks ago. Will continue the same treatment. Since switching to rhea wraps ioana is doing better about his swelling and able to do his own fressing changes . We are using cotton sleeves under his ACEs and Tubigrip's which seem to be helping a lot with skin breakdown. Patient is doing his own dressing changes . - Physical Exam Vital Signs Temp Pulse Resp BP 97.5 F L 63 18 156/59 H 03/22/18 11:11 03/22/18 11:11 03/22/18 11:11 03/22/18 11:11 General: Oriented x3, Cooperative, Well developed HEENT: Atraumatic, PERRLA Oral: Moist Mucosa Neck: Supple, No JVD Lungs: Clear to auscultation, Normal air movement Cardiovascular: Regular rate, Regular Rhythm Abdomen: Bowel Sounds Present, Soft, Non Tender, No Hepato-splenomegaly Extremities: No clubbing, Edema Skin: Ulcer/ Wound - L lat lower leg and lower circumferential L lower leg is scalded syndrome Wound Measurements and Assessment WC - Nurse 1 - General Ulcer Measurement Start: 03/01/18 10:09 Freq: Status: Active Protocol: Activity Type Activity Date Activity User E-Sign Co-Sign Detail Recorded Client Recorded Date Recorded By Document 03/22/18 11:11 [facility] [id number] 03/22/18 11:20 [facility] 03/22/18 11:11 Wound Center Nurse 1 [Ulcer Assessment] #4 LLE -Combined with other wound No -Current Size (cm) - Length 8 -Current Size (cm) - Width 9 -Current Size (cm) - Depth 0.2 -Total Square Cm 72 -Date of Last Picture (Recall this 03/22/18 field) -Photo Taken Yes -Tunneling No -Undermining/Tunneling No -Circular Undermining No -Exudate Amt Large (67-100%) -Exudate Type Serous -Granulation Amt Large (67-100%) -Granulation Quality Red -Slough/Fibrin No -Necrosis Amt None Present (0 %) -Structure Exposed None/Limited to Skin Breakdown -Texture (Charlotte-wound Skin Appearance) Friable Scarring -Moisture ([place]-wound Skin Appearance Maceration ) -Color ([place]-wound Skin Appearance) Erythema Hemosiderin Staining -Temperature ([place]-wound Skin No Abnormality Appearance) (Pt Warm) -Tenderness on Palpation ([place]-wound No Skin Appearance) -Ulcer Cleansing Wound Cleanser -Foul Odor after Cleansing No -Anesthetic Used 4% Lidocaine Solution [Edema Assessment] -Lower Limb Edema Present Yes -Left Calf (cm) 45 -Left Ankle (cm) 35.6 WC - Nurse 2 - General Ulcer CM Notes Start: 03/01/18 10:09 Freq: Status: Active Protocol: Activity Type Activity Date Activity User E-Sign Co-Sign Detail Recorded Client Recorded Date Recorded By Document 03/22/18 11:47 DV [id number] 03/22/18 11:57 DV 03/22/18 11:47 Wound Center Nurse 2 [Procedure/Treatment] #6 LATERAL LLE -Time 11:52 -Correct Patient Yes -Correct Side, Site, Position Yes -Correct Procedure Yes -Procedure Performed Yes -Type of Procedure Debridement -Clinical Debridement Subcutaneous -Post Debridement Size (cm) - Length 4.0 -Post Debridement Size (cm) - Width 2.5 -Post Debridement Size (cm) - Depth 0.2 -Total Square Cm 10.00 -Wound/Ulcer Outcome Not Healed -Ulcer Cleansing Rinsed/ Irrigated with Saline -Foul Odor after Cleansing No -Bioengineered Tissue No -Bleeding Controlled with Pressure -Treatment Response Procedure Tolerated Well #4 LLE -Time 11:54 -Correct Patient Yes -Correct Side, Site, Position Yes -Correct Procedure Yes -Procedure Performed Yes -Type of Procedure Debridement -Clinical Debridement Selective -Post Debridement Size (cm) - Length 22.0 -Post Debridement Size (cm) - Width 35.0 -Post Debridement Size (cm) - Depth 0.1 -Total Square Cm 770.00 -Wound/Ulcer Outcome Not Healed -Ulcer Cleansing Rinsed/ Irrigated with Saline -Foul Odor after Cleansing No -Bioengineered Tissue No -Bleeding Controlled with NA -Other SELECTIVE @ 50% -Treatment Response Procedure Tolerated Well [See Physician Procedure note for Specifics] Pain Scale: 0-10 Numeric [Pain] -Is Patient Pain Free? Yes Musculoskeletal: No Tenderness to Palpation of Joints or Extremities Lymphatic: No Cervical, Supraclavicular, or Inguinal Adenopathy Neurological: Cranial nerves II-XII grossly intact, Neuro grossly intact Psych/Mental Status: Normal Affect, Appropriate Debridement Note Post-Debridement Measurements/Treatment WC - Nurse 2 - General Ulcer CM Notes Start: 03/01/18 10:09 Freq: Status: Active Protocol: Activity Type Activity Date Activity User E-Sign Co-Sign Detail Recorded Client Recorded Date Recorded By Document 03/01/18 11:50 JS [id number] 03/01/18 11:51 JS Document 03/22/18 11:47 DV [id number] 03/22/18 11:57 DV 03/01/18 03/22/18 11:50 11:47 Wound Center Nurse 2 #6 LATERAL LLE -Time 11:52 -Correct Patient Yes -Correct Side, Site, Position Yes -Correct Procedure Yes -Procedure Performed Yes -Type of Procedure Debridement -Clinical Debridement Subcutaneous -Post Debridement Size (cm) - Length 4.0 -Post Debridement Size (cm) - Width 2.5 -Post Debridement Size (cm) - Depth 0.2 -Total Square Cm 10.00 -Wound/Ulcer Outcome Not Healed -Ulcer Cleansing Rinsed/ Irrigated with Saline -Foul Odor after Cleansing No -Bioengineered Tissue No -Bleeding Controlled with Pressure -Treatment Response Procedure Tolerated Well #4 LLE -Time 11:50 11:54 -Correct Patient Yes Yes -Correct Side, Site, Position Yes Yes -Correct Procedure Yes Yes -Procedure Performed Yes Yes -Type of Procedure Debridement Debridement -Clinical Debridement Subcutaneous Selective -Post Debridement Size (cm) - Length 4.5 22.0 -Post Debridement Size (cm) - Width 3.0 35.0 -Post Debridement Size (cm) - Depth 0.2 0.1 -Total Square Cm 13.50 770.00 -Wound/Ulcer Outcome Not Healed Not Healed -Ulcer Cleansing Rinsed/ Rinsed/ Irrigated with Irrigated with Saline Saline -Foul Odor after Cleansing No No -Bioengineered Tissue No No -Topical Lidocaine (%) 4 -Lidocaine (ml) 5 -Bleeding Controlled with NA NA -Other SELECTIVE @ 50% -Treatment Response Procedure Procedure Tolerated Well Tolerated Well Pain Scale: 0-10 Numeric Is Patient Pain Free? Yes Yes Wound debrided: L Lat lower leg Type of Debridement: Excisional debridement Depth: Down to and including healthy tissue, in the subcutaneous layer Percentage of wound debrided: 100 Instrument Used: 5mm curette Tissue Removed: fibrin Severity: Limited To Skin Breakdown Amount of bleeding with debridement: None Bleeding Controlled with: Compression and gauze Patient tolerated procedure well - Additional Wound Wound debrided: scalded lower leg Laterality: Left Type of Debridement: Selective debridement Anesthesia Used: 5% Lidocaine Gel Depth: Down to and including healthy tissue Percentage of wound debrided: 50 Instrument Used: - - guaze Tissue Removed: fibrin Severity: Limited To Skin Breakdown Amount of bleeding with debridement: Mild Bleeding Controlled with: Compression and gauze Patient tolerated procedure: Patient tolerated procedure well Assessment/Plan Active Problems Staph aureus infection (Acute) Staphylococcal scalded skin syndrome (Acute) Cellulitis (Chronic) Lymphedema of lower extremity (Chronic) Wound infection (Acute) Anemia (Chronic) Malnutrition (Acute) Assessment: Lymphedema bilateral lower legs. scalded skin syndrome. nonhealing ulcer L lat lower leg. Cellulitis left leg. Renal insufficiency. MRSA and wound infections Plan: Wash leg with Hibiclens well then. Left lateral lower leg use Aquacel to open areas moistened cover gauze with Barb tape. 4 inch and 6 inch rhea wraps to the legs. patient instructed to wear all day till bed time for the swelling. start the levofloxin. follow-up in 1 weeks
== END 2018-03-28 23:59 ==
LOC: WC 10:15
PROVIDERS: Family Provider Family Medicine; PCP Family Medicine; Visit Provider Nurse Practitioner
DX: I89.0 Lymphedema, not elsewhere classified (principal); D69.6 Thrombocytopenia, unspecified; E55.9 Vitamin D deficiency, unspecified; N18.3 Chronic kidney disease, stage 3 (moderate); L00 Staphylococcal scalded skin syndrome; L97.821 Non-pressure chronic ulcer of other part of left lower leg limited to breakdown of skin; L03.116 Cellulitis of left lower limb; B95.62 Methicillin resistant Staphylococcus aureus infection as the cause of diseases classified elsewhere
CPT/HCPCS: 11042; 11045; 87070; 87075; 87077; 87186; 87205

== ENCOUNTER → 2018-04-05 09:00 | Outpatient (CLI) | payer MEDICARE, OTHER, SELFPAY ==
--- NOTE | 2018-04-05 09:00 | DT_ITS ---
This patient was seen during an EMR downtime April 01, 2018 - April 08, 2018. This patient may have a combination of paper and electronic documentation or all paper documentation. All documentation is viewable within the e-chart portion of [employer] for each patient visit.
== END ==
PROVIDERS: Visit Provider Nurse Practitioner
DX: L00 Staphylococcal scalded skin syndrome (principal)
CPT/HCPCS: 87070; 87075; 87077; 87186; 87205

== ENCOUNTER 2018-04-26 11:00 | Outpatient (RCR) | payer MEDICARE, OTHER, SELFPAY ==
[2018-03-29 00:52] VITALS: BP 156/59; PULSE 63; RESP 18; TEMP 36.4
[2018-03-29 11:41] VITALS: BP 122/65; PULSE 64; RESP 16; TEMP 35.7
--- NOTE | 2018-03-29 13:55 | PN.PCM_ITS ---
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 Status: Acute Current Visit: Yes Code(s): E83.59 - Other disorders of calcium metabolism; L97.909 - Non-pressure chronic ulcer of unspecified part of unspecified lower leg with unspecified severity (2) Staphylococcal scalded skin syndrome Status: Acute Current Visit: Yes Code(s): L00 - Staphylococcal scalded skin syndrome (3) Wound infection Status: Acute Current Visit: Yes Code(s): T14.8XXA - Other injury of unspecified body region, initial encounter; L08.9 - Local infection of the skin and subcutaneous tissue, unspecified (4) Anemia Status: Chronic Current Visit: Yes Code(s): D64.9 - Anemia, unspecified (5) Lymphedema of lower extremity Status: Chronic Current Visit: Yes Code(s): I89.0 - Lymphedema, not elsewhere classified (6) Nonstaphylococcal scalded skin syndrome Status: Chronic Current Visit: Yes Code(s): L53.8 - Other specified erythematous conditions Type of Wound Date of Service: 03/29/18 Chief Complaint: Lymphedema legs, ruptured blister R great toe History of Wound: 82-year-old white male who has history of lymphedema and 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 Patient was last seen on for basically around the same thing. Patient has pumps at home he does use twice daily. Time patient complains that it is not only his lower leg but the sole of his foot that has developed a open ulcer. Patient complains that the drainage of clear fluid from his left leg is so much that it puddles all over his house which he finds annoying. So now he has developed cellulitis in the left lower leg with increased swelling and lymphedema. Patient has been soaking his foot and leg and a tub water but not Epson salt. We will be checking his pre-albumin and we did cultures today also will order him antibiotics because he finally has an infection and start him on levofloxacin cassettes when he was on last time and metronidazole because he did have anaerobes the last time. Progress of Wound: The L lower leg scalded leg is improved but waxes and wanes with swellling . The recultures show staph again .Will restart levofloxin and continue the xeroform dressing changes. Using Aquacel silver on the lateral left lower leg ulcers which is clean today totally no slough seen and is 1/2 the size from 2 weeks ago. Will continue the same treatment. Since switching to rhea wraps ioana is doing better about his swelling and able to do his own fressing changes . We are using cotton sleeves under his ACEs and Tubigrip's which seem to be helping a lot with skin breakdown. Patient is doing his own dressing changes . - Physical Exam Vital Signs Temp Pulse Resp BP 96.2 F L 64 16 122/65 H 03/29/18 11:41 03/29/18 11:41 03/29/18 11:41 03/29/18 11:41 General: Oriented x3, Cooperative, Well developed HEENT: Atraumatic, PERRLA Oral: Moist Mucosa Neck: Supple, No JVD Lungs: Clear to auscultation, Normal air movement Cardiovascular: Regular rate, Regular Rhythm Abdomen: Bowel Sounds Present, Soft, Non Tender, No Hepato-splenomegaly Extremities: No clubbing, No edema, - - Lower leg lymphedema with lateral ulcers and scalded skin syndrome Skin: Ulcer/ Wound Wound Measurements and Assessment WC - Nurse 1 - General Ulcer Measurement Start: 03/29/18 11:26 Freq: Status: Active Protocol: Activity Type Activity Date Activity User E-Sign Co-Sign Detail Recorded Client Recorded Date Recorded By Document 03/29/18 11:41 [facility] [id number] 03/29/18 11:57 [facility] 03/29/18 11:41 Wound Center Nurse 1 [Ulcer Assessment] #6 LATERAL LLE inferior -Combined with other wound No -Current Size (cm) - Length 1.3 -Current Size (cm) - Width 0.5 -Current Size (cm) - Depth 0.1 -Total Square Cm 0.65 -Date of Last Picture (Recall this 03/29/18 field) -Photo Taken Yes -Epithelialization None Present -Tunneling No -Undermining/Tunneling No -Circular Undermining No -Exudate Amt Medium (34-66%) -Exudate Type Serous -Wound Margin Distinct, Outline Attached -Granulation Amt None Present (0 %) -Slough/Fibrin Yes -Necrosis Amt Large (67-100%) -Necrotic Tissue Type Adherent Slough -Structure Exposed N/A -Texture ([place]-wound Skin Appearance) Scarring -Moisture ([place]-wound Skin Appearance Maceration ) Weeping -Color ([place]-wound Skin Appearance) Erythema Hemosiderin Staining -Temperature ([place]-wound Skin No Abnormality Appearance) (Pt Warm) -Tenderness on Palpation ([place]-wound No Skin Appearance) -Ulcer Cleansing Wound Cleanser -Foul Odor after Cleansing No -Anesthetic Used 4% Lidocaine Solution #4 LLE superior -Combined with other wound No -Current Size (cm) - Length 1 -Current Size (cm) - Width 0.5 -Current Size (cm) - Depth 0.1 -Total Square Cm 0.5 -Date of Last Picture (Recall this 03/29/18 field) -Photo Taken Yes -Epithelialization None Present -Tunneling No -Undermining/Tunneling No -Circular Undermining No -Exudate Amt Medium (34-66%) -Exudate Type Serous -Wound Margin Distinct, Outline Attached -Granulation Amt None Present (0 %) -Slough/Fibrin Yes -Necrosis Amt Large (67-100%) -Necrotic Tissue Type Adherent Slough -Structure Exposed N/A -Texture ([place]-wound Skin Appearance) Scarring -Moisture ([place]-wound Skin Appearance Maceration ) Weeping -Color ([place]-wound Skin Appearance) Erythema Hemosiderin Staining -Temperature ([place]-wound Skin No Abnormality Appearance) (Pt Warm) -Tenderness on Palpation ([place]-wound No Skin Appearance) -Ulcer Cleansing Wound Cleanser -Foul Odor after Cleansing No -Anesthetic Used 4% Lidocaine Solution [Edema Assessment] -Lower Limb Edema Present Yes -Left Calf (cm) 45 -Left Ankle (cm) 37 WC - Nurse 2 - General Ulcer CM Notes Start: 03/29/18 11:26 Freq: Status: Active Protocol: Activity Type Activity Date Activity User E-Sign Co-Sign Detail Recorded Client Recorded Date Recorded By Document 03/29/18 12:21 [place] [id number] 03/29/18 12:23 [place] 03/29/18 12:21 Wound Center Nurse 2 [Procedure/Treatment] #6 LATERAL LLE inferior -Correct Patient No -Correct Side, Site, Position No -Correct Procedure No -Procedure Performed No #4 LLE superior -Time 12:22 -Correct Patient Yes -Correct Side, Site, Position Yes -Correct Procedure Yes -Procedure Performed Yes -Type of Procedure Debridement -Clinical Debridement Subcutaneous -Post Debridement Size (cm) - Length 2.2 -Post Debridement Size (cm) - Width 0.3 -Post Debridement Size (cm) - Depth 0.2 -Total Square Cm 0.66 -Wound/Ulcer Outcome Not Healed -Ulcer Cleansing Rinsed/ Irrigated with Saline -Foul Odor after Cleansing No -Bioengineered Tissue No -Bleeding Controlled with Pressure -Treatment Response Procedure Tolerated Well [See Physician Procedure note for Specifics] Pain Scale: 0-10 Numeric [Pain] -Is Patient Pain Free? Yes Musculoskeletal: No Tenderness to Palpation of Joints or Extremities Lymphatic: No Cervical, Supraclavicular, or Inguinal Adenopathy Neurological: Cranial nerves II-XII grossly intact, Neuro grossly intact Psych/Mental Status: Normal Affect, Appropriate Debridement Note Post-Debridement Measurements/Treatment WC - Nurse 2 - General Ulcer CM Notes Start: 03/29/18 11:26 Freq: Status: Active Protocol: Activity Type Activity Date Activity User E-Sign Co-Sign Detail Recorded Client Recorded Date Recorded By Document 03/29/18 12:21 [id number] 03/29/18 12:23 [place] 03/29/18 12:21 Wound Center Nurse 2 #6 LATERAL LLE inferior -Correct Patient No -Correct Side, Site, Position No -Correct Procedure No -Procedure Performed No #4 LLE superior -Time 12:22 -Correct Patient Yes -Correct Side, Site, Position Yes -Correct Procedure Yes -Procedure Performed Yes -Type of Procedure Debridement -Clinical Debridement Subcutaneous -Post Debridement Size (cm) - Length 2.2 -Post Debridement Size (cm) - Width 0.3 -Post Debridement Size (cm) - Depth 0.2 -Total Square Cm 0.66 -Wound/Ulcer Outcome Not Healed -Ulcer Cleansing Rinsed/ Irrigated with Saline -Foul Odor after Cleansing No -Bioengineered Tissue No -Bleeding Controlled with Pressure -Treatment Response Procedure Tolerated Well Pain Scale: 0-10 Numeric Is Patient Pain Free? 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 scalded skin syndrome. nonhealing ulcer L lat lower leg. Cellulitis left leg. Renal insufficiency. MRSA and wound infections Plan: Wash leg with Hibiclens well then. Left lateral lower leg use Aquacel to open areas moistened cover gauze with Barb tape. 4 inch and 6 inch rhea wraps to the legs. patient instructed to wear all day till bed time for the swelling. finish the antibiotics. follow-up in 1 weeks
--- NOTE | 2018-04-12 11:32 | PCM.WC.PN ---
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 Status: Acute Current Visit: No Code(s): E83.59 - Other disorders of calcium metabolism; L97.909 - Non-pressure chronic ulcer of unspecified part of unspecified lower leg with unspecified severity (2) Staphylococcal scalded skin syndrome Status: Acute Current Visit: Yes Code(s): L00 - Staphylococcal scalded skin syndrome (3) Wound infection Status: Acute Current Visit: Yes Code(s): T14.8XXA - Other injury of unspecified body region, initial encounter; L08.9 - Local infection of the skin and subcutaneous tissue, unspecified (4) Anemia Status: Chronic Current Visit: Yes Code(s): D64.9 - Anemia, unspecified (5) Lymphedema of lower extremity Status: Chronic Current Visit: Yes Code(s): I89.0 - Lymphedema, not elsewhere classified (6) Nonstaphylococcal scalded skin syndrome Status: Chronic Current Visit: Yes Code(s): L53.8 - Other specified erythematous conditions Type of Wound Date of Service: 04/12/18 Chief Complaint: Lymphedema legs, ruptured blister R great toe History of Wound: 82-year-old white male who has history of lymphedema and 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 Patient was last seen on for basically around the same thing. Patient has pumps at home he does use twice daily. Time patient complains that it is not only his lower leg but the sole of his foot that has developed a open ulcer. Patient complains that the drainage of clear fluid from his left leg is so much that it puddles all over his house which he finds annoying. So now he has developed cellulitis in the left lower leg with increased swelling and lymphedema. Patient has been soaking his foot and leg and a tub water but not Epson salt. We will be checking his pre-albumin and we did cultures today also will order him antibiotics because he finally has an infection and start him on levofloxacin cassettes when he was on last time and metronidazole because he did have anaerobes the last time. Progress of Wound: The L lower leg scalded leg is improved but waxes and wanes with swellling . The recultures show another nonusual bug again .Will start cefdinir 300 mg 2 po qd for 14 days and continue the xeroform dressing changes. L lat ulcer resolved. Since switching to rhea wraps ioana is doing better about his swelling and able to do his own dressing changes . We are using cotton sleeves under his ACEs and Tubigrip's which seem to be helping a lot with skin breakdown. - Physical Exam Vital Signs Temp Pulse Resp BP 96.2 F L 64 16 122/65 H 03/29/18 11:41 03/29/18 11:41 03/29/18 11:41 03/29/18 11:41 General: Oriented x3, Cooperative, Well developed HEENT: Atraumatic, PERRLA Oral: Moist Mucosa Neck: Supple, No JVD Lungs: Clear to auscultation, Normal air movement Cardiovascular: Regular rate, Regular Rhythm Abdomen: Bowel Sounds Present, Soft, Non Tender, No Hepato-splenomegaly Extremities: No clubbing, No edema Skin: Ulcer/ Wound - Scalded skin syndrome left lower leg and up the back of the leg There is on left lateral leg are resolved Wound Measurements and Assessment WC - Nurse 2 - General Ulcer CM Notes Start: 03/29/18 11:26 Freq: Status: Active Protocol: Activity Type Activity Date Activity User E-Sign Co-Sign Detail Recorded Client Recorded Date Recorded By Document 04/12/18 11:25 DV [id number] 04/12/18 11:32 DV 04/12/18 11:25 Wound Center Nurse 2 [Procedure/Treatment] #6 LATERAL LLE inferior -Time 11:28 -Correct Patient Yes -Correct Side, Site, Position Yes -Correct Procedure Yes -Procedure Performed Yes -Type of Procedure Debridement -Clinical Debridement Selective -Post Debridement Size (cm) - Length 25.5 -Post Debridement Size (cm) - Width 38.0 -Post Debridement Size (cm) - Depth 0.1 -Total Square Cm 969.00 -Wound/Ulcer Outcome Not Healed -Ulcer Cleansing Rinsed/ Irrigated with Saline -Foul Odor after Cleansing No -Bioengineered Tissue No -Bleeding Controlled with Pressure -Treatment Response Procedure Tolerated Well #4 LLE superior -Time 11:30 -Correct Patient Yes -Procedure Performed No -Post Debridement Size (cm) - Length 0 -Post Debridement Size (cm) - Width 0 -Post Debridement Size (cm) - Depth 0 -Total Square Cm 0 -Wound/Ulcer Outcome Healed- Epithelialized [See Physician Procedure note for Specifics] Pain Scale: 0-10 Numeric [Pain] -Is Patient Pain Free? Yes Musculoskeletal: No Tenderness to Palpation of Joints or Extremities Lymphatic: No Cervical, Supraclavicular, or Inguinal Adenopathy Neurological: Cranial nerves II-XII grossly intact, Neuro grossly intact Psych/Mental Status: Normal Affect, Appropriate, Alert and oriented to time, place, person, mood and affect Debridement Note Post-Debridement Measurements/Treatment WC - Nurse 2 - General Ulcer CM Notes Start: 03/29/18 11:26 Freq: Status: Active Protocol: Activity Type Activity Date Activity User E-Sign Co-Sign Detail Recorded Client Recorded Date Recorded By Document 03/29/18 12:21 JF [id number] 03/29/18 12:23 Document 04/12/18 11:25 DV [id number] 04/12/18 11:32 DV 03/29/18 04/12/18 12:21 11:25 Wound Center Nurse 2 #6 LATERAL LLE inferior -Time 11:28 -Correct Patient No Yes -Correct Side, Site, Position No Yes -Correct Procedure No Yes -Procedure Performed No Yes -Type of Procedure Debridement -Clinical Debridement Selective -Post Debridement Size (cm) - Length 25.5 -Post Debridement Size (cm) - Width 38.0 -Post Debridement Size (cm) - Depth 0.1 -Total Square Cm 969.00 -Wound/Ulcer Outcome Not Healed -Ulcer Cleansing Rinsed/ Irrigated with Saline -Foul Odor after Cleansing No -Bioengineered Tissue No -Bleeding Controlled with Pressure -Treatment Response Procedure Tolerated Well #4 LLE superior -Time 12:22 11:30 -Correct Patient Yes Yes -Correct Side, Site, Position Yes -Correct Procedure Yes -Procedure Performed Yes No -Type of Procedure Debridement -Clinical Debridement Subcutaneous -Post Debridement Size (cm) - Length 2.2 0 -Post Debridement Size (cm) - Width 0.3 0 -Post Debridement Size (cm) - Depth 0.2 0 -Total Square Cm 0.66 0 -Wound/Ulcer Outcome Not Healed Healed- Epithelialized -Ulcer Cleansing Rinsed/ Irrigated with Saline -Foul Odor after Cleansing No -Bioengineered Tissue No -Bleeding Controlled with Pressure -Treatment Response Procedure Tolerated Well Pain Scale: 0-10 Numeric Is Patient Pain Free? Yes Yes Wound debrided: Left lower leg scalded syndrome Type of Debridement: Selective debridement Anesthesia Used: 5% Lidocaine Gel Depth: Down to and including healthy tissue, in the subcutaneous layer Percentage of wound debrided: 50 Instrument Used: - - guaze Tissue Removed: fibrin Severity: Limited To Skin Breakdown Amount of bleeding with debridement: None Bleeding Controlled with: Pressure Patient tolerated procedure well Assessment/Plan Active Problems Staphylococcal scalded skin syndrome (Acute) Lymphedema of lower extremity (Chronic) Wound infection (Acute) Anemia (Chronic) Nonstaphylococcal scalded skin syndrome (Chronic) Assessment: Lymphedema bilateral lower legs. scalded skin syndrome. nonhealing ulcer L lat lower leg. Cellulitis left leg. Renal insufficiency. MRSA and wound infections Plan: Wash leg with Hibiclens well then. Xeroform to the left lower leg padded with ABDs and Barb then. 4 inch and 6 inch rhea wraps to the legs. patient instructed to wear all day till bed time for the swelling. start the antibiotics cefdinir 300 mg 2 po qd for 14 days. follow-up in 1 weeks
[2018-04-19 11:43] VITALS: BP 133/59; PULSE 64; RESP 16; TEMP 36.1
--- NOTE | 2018-04-19 14:11 | PCM.WC.PN ---
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 Status: Acute Current Visit: No Code(s): E83.59 - Other disorders of calcium metabolism; L97.909 - Non-pressure chronic ulcer of unspecified part of unspecified lower leg with unspecified severity (2) Staphylococcal scalded skin syndrome Status: Acute Current Visit: Yes Code(s): L00 - Staphylococcal scalded skin syndrome (3) Wound infection Status: Acute Current Visit: Yes Code(s): T14.8XXA - Other injury of unspecified body region, initial encounter; L08.9 - Local infection of the skin and subcutaneous tissue, unspecified (4) Anemia Status: Chronic Current Visit: Yes Code(s): D64.9 - Anemia, unspecified (5) Lymphedema of lower extremity Status: Chronic Current Visit: Yes Code(s): I89.0 - Lymphedema, not elsewhere classified (6) Nonstaphylococcal scalded skin syndrome Status: Chronic Current Visit: Yes Code(s): L53.8 - Other specified erythematous conditions Type of Wound Date of Service: 04/19/18 Chief Complaint: Lymphedema legs, ruptured blister R great toe History of Wound: 82-year-old white male who has history of lymphedema and 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 Patient was last seen on for basically around the same thing. Patient has pumps at home he does use twice daily. Time patient complains that it is not only his lower leg but the sole of his foot that has developed a open ulcer. Patient complains that the drainage of clear fluid from his left leg is so much that it puddles all over his house which he finds annoying. So now he has developed cellulitis in the left lower leg with increased swelling and lymphedema. Patient has been soaking his foot and leg and a tub water but not Epson salt. We will be checking his pre-albumin and we did cultures today also will order him antibiotics because he finally has an infection and start him on levofloxacin cassettes when he was on last time and metronidazole because he did have anaerobes the last time. Progress of Wound: The L lower leg scalded leg is improved but waxes and wanes with swellling . The recultures show another nonusual bug again .Will start cefdinir 300 mg 2 po qd for 14 days and continue the xeroform dressing changes. L lat ulcer resolved. Since switching to rhea wraps ioana is doing better about his swelling and able to do his own dressing changes . We are using cotton sleeves under his ACEs and Tubigrip's which seem to be helping a lot with skin breakdown. - Physical Exam Vital Signs Temp Pulse Resp BP 96.9 F L 64 16 133/59 H 04/19/18 11:43 04/19/18 11:43 04/19/18 11:43 04/19/18 11:43 General: Oriented x3, Cooperative, Well developed HEENT: Atraumatic, PERRLA Oral: Moist Mucosa Neck: Supple, No JVD Lungs: Clear to auscultation, Normal air movement Cardiovascular: Regular rate, Regular Rhythm Abdomen: Bowel Sounds Present, Soft, Non Tender, No Hepato-splenomegaly Extremities: No clubbing, No edema Skin: Ulcer/ Wound - Scalded skin syndrome left lower leg no ulcers noted Wound Measurements and Assessment WC - Nurse 1 - General Ulcer Measurement Start: 03/29/18 11:26 Freq: Status: Active Protocol: Activity Type Activity Date Activity User E-Sign Co-Sign Detail Recorded Client Recorded Date Recorded By Document 04/19/18 11:43 [facility] [id number] 04/19/18 11:50 [facility] 04/19/18 11:43 Wound Center Nurse 1 [Edema Assessment] -Lower Limb Edema Present Yes -Left Calf (cm) 45 -Left Ankle (cm) 36.7 - Nurse 2 - General Ulcer CM Notes Start: 03/29/18 11:26 Freq: Status: Active Protocol: Activity Type Activity Date Activity User E-Sign Co-Sign Detail Recorded Client Recorded Date Recorded By Document 04/19/18 12:06 [id number] 04/19/18 12:09 04/19/18 12:06 Wound Center Nurse 2 [Procedure/Treatment] #6 LLE -Time 12:07 -Correct Patient Yes -Correct Side, Site, Position Yes -Correct Procedure Yes -Procedure Performed Yes -Type of Procedure Debridement -Clinical Debridement Selective -Post Debridement Size (cm) - Length 19.0 -Post Debridement Size (cm) - Width 30.0 -Post Debridement Size (cm) - Depth 0.1 -Total Square Cm 570.00 -Wound/Ulcer Outcome Not Healed -Ulcer Cleansing Rinsed/ Irrigated with Saline -Foul Odor after Cleansing No -Bioengineered Tissue No -Bleeding Controlled with NA -Other 142.5 -Treatment Response Procedure Tolerated Well [See Physician Procedure note for Specifics] Pain Scale: 0-10 Numeric [Pain] -Is Patient Pain Free? Yes Musculoskeletal: No Tenderness to Palpation of Joints or Extremities Lymphatic: No Cervical, Supraclavicular, or Inguinal Adenopathy Neurological: Cranial nerves II-XII grossly intact, Neuro grossly intact Psych/Mental Status: Normal Affect, Appropriate Debridement Note Post-Debridement Measurements/Treatment WC - Nurse 2 - General Ulcer CM Notes Start: 03/29/18 11:26 Freq: Status: Active Protocol: Activity Type Activity Date Activity User E-Sign Co-Sign Detail Recorded Client Recorded Date Recorded By Document 03/29/18 12:21 JF [id number] 03/29/18 12:23 JF Document 04/12/18 11:25 DV [id number] 04/12/18 11:32 DV Document 04/19/18 12:06 CS [id number] 04/19/18 12:09 CS 03/29/18 04/12/18 04/19/18 12:21 11:25 12:06 Wound Center Nurse 2 #6 LLE -Time 11:28 12:07 -Correct Patient No Yes Yes -Correct Side, Site, Position No Yes Yes -Correct Procedure No Yes Yes -Procedure Performed No Yes Yes -Type of Procedure Debridement Debridement -Clinical Debridement Selective Selective -Post Debridement Size (cm) - Length 25.5 19.0 -Post Debridement Size (cm) - Width 38.0 30.0 -Post Debridement Size (cm) - Depth 0.1 0.1 -Total Square Cm 969.00 570.00 -Wound/Ulcer Outcome Not Healed Not Healed -Ulcer Cleansing Rinsed/ Rinsed/ Irrigated with Irrigated with Saline Saline -Foul Odor after Cleansing No No -Bioengineered Tissue No No -Bleeding Controlled with Pressure NA -Other 142.5 -Treatment Response Procedure Procedure Tolerated Well Tolerated Well #4 LLE superior -Time 12:22 11:30 -Correct Patient Yes Yes -Correct Side, Site, Position Yes -Correct Procedure Yes -Procedure Performed Yes No -Type of Procedure Debridement -Clinical Debridement Subcutaneous -Post Debridement Size (cm) - Length 2.2 0 -Post Debridement Size (cm) - Width 0.3 0 -Post Debridement Size (cm) - Depth 0.2 0 -Total Square Cm 0.66 0 -Wound/Ulcer Outcome Not Healed Healed- Epithelialized -Ulcer Cleansing Rinsed/ Irrigated with Saline -Foul Odor after Cleansing No -Bioengineered Tissue No -Bleeding Controlled with Pressure -Treatment Response Procedure Tolerated Well Pain Scale: 0-10 Numeric Is Patient Pain Free? Yes Yes Yes Wound debrided: Left lower leg Type of Debridement: Selective debridement Anesthesia Used: 5% Lidocaine Gel Depth: Down to and including healthy tissue Percentage of wound debrided: 100 Instrument Used: - - guaze Tissue Removed: fi brin Severity: Limited To Skin Breakdown Amount of bleeding with debridement: None Bleeding Controlled with: Pressure Patient tolerated procedure well Assessment/Plan Active Problems Staphylococcal scalded skin syndrome (Acute) Lymphedema of lower extremity (Chronic) Wound infection (Acute) Anemia (Chronic) Nonstaphylococcal scalded skin syndrome (Chronic) Assessment: Lymphedema bilateral lower legs. scalded skin syndrome. nonhealing ulcer L lat lower leg. Cellulitis left leg. Renal insufficiency. MRSA and wound infections Plan: Wash leg with Hibiclens well then. Xeroform to the left lower leg padded with ABDs and Barb then. 4 inch and 6 inch rhea wraps to the legs. patient instructed to wear all day till bed time for the swelling. finish the antibiotics cefdinir 300 mg 2 po qd for 14 days. follow-up in 1 weeks
--- NOTE | 2018-04-19 14:14 | PN.PCM_ITS ---
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 Status: Acute Current Visit: No Code(s): E83.59 - Other disorders of calcium metabolism; L97.909 - Non-pressure chronic ulcer of unspecified part of unspecified lower leg with unspecified severity (2) Staphylococcal scalded skin syndrome Status: Acute Current Visit: Yes Code(s): L00 - Staphylococcal scalded skin syndrome (3) Wound infection Status: Acute Current Visit: Yes Code(s): T14.8XXA - Other injury of unspecified body region, initial encounter; L08.9 - Local infection of the skin and subcutaneous tissue, unspecified (4) Anemia Status: Chronic Current Visit: Yes Code(s): D64.9 - Anemia, unspecified (5) Lymphedema of lower extremity Status: Chronic Current Visit: Yes Code(s): I89.0 - Lymphedema, not elsewhere classified (6) Nonstaphylococcal scalded skin syndrome Status: Chronic Current Visit: Yes Code(s): L53.8 - Other specified erythematous conditions Type of Wound Date of Service: 04/19/18 Chief Complaint: Lymphedema legs, ruptured blister R great toe History of Wound: 82-year-old white male who has history of lymphedema and 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 Patient was last seen on for basically around the same thing. Patient has pumps at home he does use twice daily. Time patient complains that it is not only his lower leg but the sole of his foot that has developed a open ulcer. Patient complains that the drainage of clear fluid from his left leg is so much that it puddles all over his house which he finds annoying. So now he has developed cellulitis in the left lower leg with increased swelling and lymphedema. Patient has been soaking his foot and leg and a tub water but not Epson salt. We will be checking his pre-albumin and we did cultures today also will order him antibiotics because he finally has an infection and start him on levofloxacin cassettes when he was on last time and metronidazole because he did have anaerobes the last time. Progress of Wound: The L lower leg scalded leg is improved but waxes and wanes with swellling . The recultures show another nonusual bug again .Will start cefdinir 300 mg 2 po qd for 14 days and continue the xeroform dressing changes. L lat ulcer resolved. Since switching to rhea wraps ioana is doing better about his swelling and able to do his own dressing changes . We are using cotton sleeves under his ACEs and Tubigrip's which seem to be helping a lot with skin breakdown. - Physical Exam Vital Signs Temp Pulse Resp BP 96.9 F L 64 16 133/59 H 04/19/18 11:43 04/19/18 11:43 04/19/18 11:43 04/19/18 11:43 General: Oriented x3, Cooperative, Well developed HEENT: Atraumatic, PERRLA Oral: Moist Mucosa Neck: Supple, No JVD Lungs: Clear to auscultation, Normal air movement Cardiovascular: Regular rate, Regular Rhythm Abdomen: Bowel Sounds Present, Soft, Non Tender, No Hepato-splenomegaly Extremities: No clubbing, No edema Skin: Ulcer/ Wound - Scalded skin syndrome left lower leg no ulcers noted Wound Measurements and Assessment WC - Nurse 1 - General Ulcer Measurement Start: 03/29/18 11:26 Freq: Status: Active Protocol: Activity Type Activity Date Activity User E-Sign Co-Sign Detail Recorded Client Recorded Date Recorded By Document 04/19/18 11:43 [facility] [id number] 04/19/18 11:50 [facility] 04/19/18 11:43 Wound Center Nurse 1 [Edema Assessment] -Lower Limb Edema Present Yes -Left Calf (cm) 45 -Left Ankle (cm) 36.7 - Nurse 2 - General Ulcer CM Notes Start: 03/29/18 11:26 Freq: Status: Active Protocol: Activity Type Activity Date Activity User E-Sign Co-Sign Detail Recorded Client Recorded Date Recorded By Document 04/19/18 12:06 [id number] 04/19/18 12:09 04/19/18 12:06 Wound Center Nurse 2 [Procedure/Treatment] #6 LLE -Time 12:07 -Correct Patient Yes -Correct Side, Site, Position Yes -Correct Procedure Yes -Procedure Performed Yes -Type of Procedure Debridement -Clinical Debridement Selective -Post Debridement Size (cm) - Length 19.0 -Post Debridement Size (cm) - Width 30.0 -Post Debridement Size (cm) - Depth 0.1 -Total Square Cm 570.00 -Wound/Ulcer Outcome Not Healed -Ulcer Cleansing Rinsed/ Irrigated with Saline -Foul Odor after Cleansing No -Bioengineered Tissue No -Bleeding Controlled with NA -Other 142.5 -Treatment Response Procedure Tolerated Well [See Physician Procedure note for Specifics] Pain Scale: 0-10 Numeric [Pain] -Is Patient Pain Free? Yes Musculoskeletal: No Tenderness to Palpation of Joints or Extremities Lymphatic: No Cervical, Supraclavicular, or Inguinal Adenopathy Neurological: Cranial nerves II-XII grossly intact, Neuro grossly intact Psych/Mental Status: Normal Affect, Appropriate Debridement Note Post-Debridement Measurements/Treatment WC - Nurse 2 - General Ulcer CM Notes Start: 03/29/18 11:26 Freq: Status: Active Protocol: Activity Type Activity Date Activity User E-Sign Co-Sign Detail Recorded Client Recorded Date Recorded By Document 03/29/18 12:21 JF [id number] 03/29/18 12:23 JF Document 04/12/18 11:25 DV [id number] 04/12/18 11:32 DV Document 04/19/18 12:06 CS [id number] 04/19/18 12:09 CS 03/29/18 04/12/18 04/19/18 12:21 11:25 12:06 Wound Center Nurse 2 #6 LLE -Time 11:28 12:07 -Correct Patient No Yes Yes -Correct Side, Site, Position No Yes Yes -Correct Procedure No Yes Yes -Procedure Performed No Yes Yes -Type of Procedure Debridement Debridement -Clinical Debridement Selective Selective -Post Debridement Size (cm) - Length 25.5 19.0 -Post Debridement Size (cm) - Width 38.0 30.0 -Post Debridement Size (cm) - Depth 0.1 0.1 -Total Square Cm 969.00 570.00 -Wound/Ulcer Outcome Not Healed Not Healed -Ulcer Cleansing Rinsed/ Rinsed/ Irrigated with Irrigated with Saline Saline -Foul Odor after Cleansing No No -Bioengineered Tissue No No -Bleeding Controlled with Pressure NA -Other 142.5 -Treatment Response Procedure Procedure Tolerated Well Tolerated Well #4 LLE superior -Time 12:22 11:30 -Correct Patient Yes Yes -Correct Side, Site, Position Yes -Correct Procedure Yes -Procedure Performed Yes No -Type of Procedure Debridement -Clinical Debridement Subcutaneous -Post Debridement Size (cm) - Length 2.2 0 -Post Debridement Size (cm) - Width 0.3 0 -Post Debridement Size (cm) - Depth 0.2 0 -Total Square Cm 0.66 0 -Wound/Ulcer Outcome Not Healed Healed- Epithelialized -Ulcer Cleansing Rinsed/ Irrigated with Saline -Foul Odor after Cleansing No -Bioengineered Tissue No -Bleeding Controlled with Pressure -Treatment Response Procedure Tolerated Well Pain Scale: 0-10 Numeric Is Patient Pain Free? Yes Yes Yes Wound debrided: Left lower leg Type of Debridement: Selective debridement Anesthesia Used: 5% Lidocaine Gel Depth: Down to and including healthy tissue Percentage of wound debrided: 100 Instrument Used: - - guaze Tissue Removed: fi brin Severity: Limited To Skin Breakdown Amount of bleeding with debridement: None Bleeding Controlled with: Pressure Patient tolerated procedure well Assessment/Plan Active Problems Staphylococcal scalded skin syndrome (Acute) Lymphedema of lower extremity (Chronic) Wound infection (Acute) Anemia (Chronic) Nonstaphylococcal scalded skin syndrome (Chronic) Assessment: Lymphedema bilateral lower legs. scalded skin syndrome. nonhealing ulcer L lat lower leg. Cellulitis left leg. Renal insufficiency. MRSA and wound infections Plan: Wash leg with Hibiclens well then. Xeroform to the left lower leg padded with ABDs and Barb then. 4 inch and 6 inch rhea wraps to the legs. patient instructed to wear all day till bed time for the swelling. ?finish the antibiotics cefdinir 300 mg 2 po qd for 14 days. follow-up in 1 weeks
[2018-04-26 11:12] VITALS: BP 128/61; PULSE 62; RESP 18; TEMP 36.4
--- NOTE | 2018-04-26 12:07 | PCM.WC.PN ---
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 Status: Acute Current Visit: No Code(s): E83.59 - Other disorders of calcium metabolism; L97.909 - Non-pressure chronic ulcer of unspecified part of unspecified lower leg with unspecified severity (2) Staphylococcal scalded skin syndrome Status: Acute Current Visit: Yes Code(s): L00 - Staphylococcal scalded skin syndrome (3) Wound infection Status: Acute Current Visit: No Code(s): T14.8XXA - Other injury of unspecified body region, initial encounter; L08.9 - Local infection of the skin and subcutaneous tissue, unspecified (4) Anemia Status: Chronic Current Visit: Yes Code(s): D64.9 - Anemia, unspecified (5) Lymphedema of lower extremity Status: Chronic Current Visit: Yes Code(s): I89.0 - Lymphedema, not elsewhere classified (6) Nonstaphylococcal scalded skin syndrome Status: Chronic Current Visit: Yes Code(s): L53.8 - Other specified erythematous conditions Type of Wound Date of Service: 04/26/18 Chief Complaint: Lymphedema legs, ruptured blister R great toe History of Wound: 82-year-old white male who has history of lymphedema and 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 Patient was last seen on for basically around the same thing. Patient has pumps at home he does use twice daily. Time patient complains that it is not only his lower leg but the sole of his foot that has developed a open ulcer. Patient complains that the drainage of clear fluid from his left leg is so much that it puddles all over his house which he finds annoying. So now he has developed cellulitis in the left lower leg with increased swelling and lymphedema. Patient has been soaking his foot and leg and a tub water but not Epson salt. We will be checking his pre-albumin and we did cultures today also will order him antibiotics because he finally has an infection and start him on levofloxacin cassettes when he was on last time and metronidazole because he did have anaerobes the last time. Progress of Wound: The L lower leg scalded leg is improved but waxes and wanes with swellling. Patient will be discharged from the wound center all the leg is cleared will always have just charge as long as he is keeping him up and keeping them bound the discharge should be limited. - Physical Exam Vital Signs Temp Pulse Resp BP 97.5 F L 62 18 128/61 H 04/26/18 11:12 04/26/18 11:12 04/26/18 11:12 04/26/18 11:12 General: Oriented x3, Cooperative, Well developed HEENT: Atraumatic, PERRLA Oral: Moist Mucosa Neck: Supple, No JVD Lungs: Clear to auscultation, Normal air movement Cardiovascular: Regular rate, Regular Rhythm Abdomen: Bowel Sounds Present, Soft, Non Tender, No Hepato-splenomegaly Extremities: No clubbing, No edema Wound Measurements and Assessment WC - Nurse 1 - General Ulcer Measurement Start: 03/29/18 11:26 Freq: Status: Active Protocol: Activity Type Activity Date Activity User E-Sign Co-Sign Detail Recorded Client Recorded Date Recorded By Document 04/26/18 11:12 [facility] [id number] 04/26/18 11:26 [facility] 04/26/18 11:12 Wound Center Nurse 1 [Ulcer Assessment] #6 LLE CIRCUMFERENTIAL -Combined with other wound No -Current Size (cm) - Length 21.5 -Current Size (cm) - Width 39.5 -Current Size (cm) - Depth 0.1 -Total Square Cm 849.25 -Date of Last Picture (Recall this 04/26/18 field) -Photo Taken Yes -Epithelialization Small 1-33% -Tunneling No -Undermining/Tunneling No -Circular Undermining No -Exudate Amt Large (67-100%) -Exudate Type Serosanguineous -Wound Margin Distinct, Outline Attached -Granulation Amt Large (67-100%) -Granulation Quality Red -Slough/Fibrin No -Necrosis Amt Small (1-33%) -Necrotic Tissue Type Adherent Slough -Structure Exposed None/Limited to Skin Breakdown -Texture ([place]-wound Skin Appearance) Excoriation Scarring -Moisture ([place]-wound Skin Appearance Maceration ) Weeping -Color ([place]-wound Skin Appearance) Erythema Hemosiderin Staining -Temperature ([place]-wound Skin No Abnormality Appearance) (Pt Warm) -Tenderness on Palpation ([place]-wound No Skin Appearance) -Ulcer Cleansing Wound Cleanser -Foul Odor after Cleansing No -Anesthetic Used 4% Lidocaine Solution [Edema Assessment] -Lower Limb Edema Present Yes -Left Calf (cm) 46 -Left Ankle (cm) 36.2 - Nurse 2 - General Ulcer CM Notes Start: 03/29/18 11:26 Freq: Status: Active Protocol: Activity Type Activity Date Activity User E-Sign Co-Sign Detail Recorded Client Recorded Date Recorded By Document 04/26/18 11:36 [id number] 04/26/18 11:37 JS 04/26/18 11:36 Wound Center Nurse 2 [Procedure/Treatment] #6 LLE CIRCUMFERENTIAL -Time 11:37 -Correct Patient Yes -Correct Side, Site, Position Yes -Correct Procedure Yes -Procedure Performed No -Wound/Ulcer Outcome Not Healed -Ulcer Cleansing Rinsed/ Irrigated with Saline -Foul Odor after Cleansing No -Bioengineered Tissue No -Bleeding Controlled with NA [See Physician Procedure note for Specifics] Pain Scale: 0-10 Numeric [Pain] -Is Patient Pain Free? Yes Musculoskeletal: No Tenderness to Palpation of Joints or Extremities Lymphatic: No Cervical, Supraclavicular, or Inguinal Adenopathy Neurological: Cranial nerves II-XII grossly intact, Neuro grossly intact Psych/Mental Status: Normal Affect, Appropriate, Alert and oriented to time, place, person, mood and affect Debridement Note Post-Debridement Measurements/Treatment WC - Nurse 2 - General Ulcer CM Notes Start: 03/29/18 11:26 Freq: Status: Active Protocol: Activity Type Activity Date Activity User E-Sign Co-Sign Detail Recorded Client Recorded Date Recorded By Document 03/29/18 12:21 [id number] 03/29/18 12:23 Document 04/12/18 11:25 DV [id number] 04/12/18 11:32 DV Document 04/19/18 12:06 [id number] 04/19/18 12:09 CS Document 04/26/18 11:36 JS [id number] 04/26/18 11:37 03/29/18 04/12/18 04/19/18 12:21 11:25 12:06 Wound Center Nurse 2 #6 LLE CIRCUMFERENTIAL -Time 11:28 12:07 -Correct Patient No Yes Yes -Correct Side, Site, Position No Yes Yes -Correct Procedure No Yes Yes -Procedure Performed No Yes Yes -Type of Procedure Debridement Debridement -Clinical Debridement Selective Selective -Post Debridement Size (cm) - Length 25.5 19.0 -Post Debridement Size (cm) - Width 38.0 30.0 -Post Debridement Size (cm) - Depth 0.1 0.1 -Total Square Cm 969.00 570.00 -Wound/Ulcer Outcome Not Healed Not Healed -Ulcer Cleansing Rinsed/ Rinsed/ Irrigated with Irrigated with Saline Saline -Foul Odor after Cleansing No No -Bioengineered Tissue No No -Bleeding Controlled with Pressure NA -Other 142.5 -Treatment Response Procedure Procedure Tolerated Well Tolerated Well #4 LLE superior -Time 12:22 11:30 -Correct Patient Yes Yes -Correct Side, Site, Position Yes -Correct Procedure Yes -Procedure Performed Yes No -Type of Procedure Debridement -Clinical Debridement Subcutaneous -Post Debridement Size (cm) - Length 2.2 0 -Post Debridement Size (cm) - Width 0.3 0 -Post Debridement Size (cm) - Depth 0.2 0 -Total Square Cm 0.66 0 -Wound/Ulcer Outcome Not Healed Healed- Epithelialized -Ulcer Cleansing Rinsed/ Irrigated with Saline -Foul Odor after Cleansing No -Bioengineered Tissue No -Bleeding Controlled with Pressure -Treatment Response Procedure Tolerated Well Pain Scale: 0-10 Numeric Is Patient Pain Free? Yes Yes Yes 04/26/18 11:36 Wound Center Nurse 2 #6 LLE CIRCUMFERENTIAL -Time 11:37 -Correct Patient Yes -Correct Side, Site, Position Yes -Correct Procedure Yes -Procedure Performed No -Type of Procedure -Clinical Debridement -Post Debridement Size (cm) - Length -Post Debridement Size (cm) - Width -Post Debridement Size (cm) - Depth -Total Square Cm -Wound/Ulcer Outcome Not Healed -Ulcer Cleansing Rinsed/ Irrigated with Saline -Foul Odor after Cleansing No -Bioengineered Tissue No -Bleeding Controlled with NA -Other -Treatment Response #4 LLE superior -Time -Correct Patient -Correct Side, Site, Position -Correct Procedure -Procedure Performed -Type of Procedure -Clinical Debridement -Post Debridement Size (cm) - Length -Post Debridement Size (cm) - Width -Post Debridement Size (cm) - Depth -Total Square Cm -Wound/Ulcer Outcome -Ulcer Cleansing -Foul Odor after Cleansing -Bioengineered Tissue -Bleeding Controlled with -Treatment Response Pain Scale: 0-10 Numeric Is Patient Pain Free? Yes No debridement was completed today Assessment/Plan Active Problems Staphylococcal scalded skin syndrome (Acute) Lymphedema of lower extremity (Chronic) Anemia (Chronic) Nonstaphylococcal scalded skin syndrome (Chronic) Assessment: Lymphedema bilateral lower legs. scalded skin syndrome. nonhealing ulcer L lat lower leg. Cellulitis left leg. Renal insufficiency. MRSA and wound infections Plan: Continue to wash legs with Hibiclens well then. Xeroform to the open areas and pad with ABDs and Barb then. 4 inch and 6 inch rhea wraps to the legs. patient instructed to wear all day till bed time for the swelling. Follow-up as needed discharge from the wound center
--- NOTE | 2018-04-26 12:10 | PN.PCM_ITS ---
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 Status: Acute Current Visit: No Code(s): E83.59 - Other disorders of calcium metabolism; L97.909 - Non-pressure chronic ulcer of unspecified part of unspecified lower leg with unspecified severity (2) Staphylococcal scalded skin syndrome Status: Acute Current Visit: Yes Code(s): L00 - Staphylococcal scalded skin syndrome (3) Wound infection Status: Acute Current Visit: No Code(s): T14.8XXA - Other injury of unspecified body region, initial encounter; L08.9 - Local infection of the skin and subcutaneous tissue, unspecified (4) Anemia Status: Chronic Current Visit: Yes Code(s): D64.9 - Anemia, unspecified (5) Lymphedema of lower extremity Status: Chronic Current Visit: Yes Code(s): I89.0 - Lymphedema, not elsewhere classified (6) Nonstaphylococcal scalded skin syndrome Status: Chronic Current Visit: Yes Code(s): L53.8 - Other specified erythematous conditions Type of Wound Date of Service: 04/26/18 Chief Complaint: Lymphedema legs, ruptured blister R great toe History of Wound: 82-year-old white male who has history of lymphedema and 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 Patient was last seen on for basically around the same thing. Patient has pumps at home he does use twice daily. Time patient complains that it is not only his lower leg but the sole of his foot that has developed a open ulcer. Patient complains that the drainage of clear fluid from his left leg is so much that it puddles all over his house which he finds annoying. So now he has developed cellulitis in the left lower leg with increased swelling and lymphedema. Patient has been soaking his foot and leg and a tub water but not Epson salt. We will be checking his pre-albumin and we did cultures today also will order him antibiotics because he finally has an infection and start him on levofloxacin cassettes when he was on last time and metronidazole because he did have anaerobes the last time. Progress of Wound: The L lower leg scalded leg is improved but waxes and wanes with swellling. Patient will be discharged from the wound center all the leg is cleared will always have just charge as long as he is keeping him up and keeping them bound the discharge should be limited. - Physical Exam Vital Signs Temp Pulse Resp BP 97.5 F L 62 18 128/61 H 04/26/18 11:12 04/26/18 11:12 04/26/18 11:12 04/26/18 11:12 General: Oriented x3, Cooperative, Well developed HEENT: Atraumatic, PERRLA Oral: Moist Mucosa Neck: Supple, No JVD Lungs: Clear to auscultation, Normal air movement Cardiovascular: Regular rate, Regular Rhythm Abdomen: Bowel Sounds Present, Soft, Non Tender, No Hepato-splenomegaly Extremities: No clubbing, No edema Wound Measurements and Assessment WC - Nurse 1 - General Ulcer Measurement Start: 03/29/18 11:26 Freq: Status: Active Protocol: Activity Type Activity Date Activity User E-Sign Co-Sign Detail Recorded Client Recorded Date Recorded By Document 04/26/18 11:12 [facility] [id number] 04/26/18 11:26 [facility] 04/26/18 11:12 Wound Center Nurse 1 [Ulcer Assessment] #6 LLE CIRCUMFERENTIAL -Combined with other wound No -Current Size (cm) - Length 21.5 -Current Size (cm) - Width 39.5 -Current Size (cm) - Depth 0.1 -Total Square Cm 849.25 -Date of Last Picture (Recall this 04/26/18 field) -Photo Taken Yes -Epithelialization Small 1-33% -Tunneling No -Undermining/Tunneling No -Circular Undermining No -Exudate Amt Large (67-100%) -Exudate Type Serosanguineous -Wound Margin Distinct, Outline Attached -Granulation Amt Large (67-100%) -Granulation Quality Red -Slough/Fibrin No -Necrosis Amt Small (1-33%) -Necrotic Tissue Type Adherent Slough -Structure Exposed None/Limited to Skin Breakdown -Texture ([place]-wound Skin Appearance) Excoriation Scarring -Moisture ([place]-wound Skin Appearance Maceration ) Weeping -Color ([place]-wound Skin Appearance) Erythema Hemosiderin Staining -Temperature ([place]-wound Skin No Abnormality Appearance) (Pt Warm) -Tenderness on Palpation ([place]-wound No Skin Appearance) -Ulcer Cleansing Wound Cleanser -Foul Odor after Cleansing No -Anesthetic Used 4% Lidocaine Solution [Edema Assessment] -Lower Limb Edema Present Yes -Left Calf (cm) 46 -Left Ankle (cm) 36.2 - Nurse 2 - General Ulcer CM Notes Start: 03/29/18 11:26 Freq: Status: Active Protocol: Activity Type Activity Date Activity User E-Sign Co-Sign Detail Recorded Client Recorded Date Recorded By Document 04/26/18 11:36 [id number] 04/26/18 11:37 JS 04/26/18 11:36 Wound Center Nurse 2 [Procedure/Treatment] #6 LLE CIRCUMFERENTIAL -Time 11:37 -Correct Patient Yes -Correct Side, Site, Position Yes -Correct Procedure Yes -Procedure Performed No -Wound/Ulcer Outcome Not Healed -Ulcer Cleansing Rinsed/ Irrigated with Saline -Foul Odor after Cleansing No -Bioengineered Tissue No -Bleeding Controlled with NA [See Physician Procedure note for Specifics] Pain Scale: 0-10 Numeric [Pain] -Is Patient Pain Free? Yes Musculoskeletal: No Tenderness to Palpation of Joints or Extremities Lymphatic: No Cervical, Supraclavicular, or Inguinal Adenopathy Neurological: Cranial nerves II-XII grossly intact, Neuro grossly intact Psych/Mental Status: Normal Affect, Appropriate, Alert and oriented to time, place, person, mood and affect Debridement Note Post-Debridement Measurements/Treatment WC - Nurse 2 - General Ulcer CM Notes Start: 03/29/18 11:26 Freq: Status: Active Protocol: Activity Type Activity Date Activity User E-Sign Co-Sign Detail Recorded Client Recorded Date Recorded By Document 03/29/18 12:21 [id number] 03/29/18 12:23 Document 04/12/18 11:25 DV [id number] 04/12/18 11:32 DV Document 04/19/18 12:06 [id number] 04/19/18 12:09 CS Document 04/26/18 11:36 JS [id number] 04/26/18 11:37 03/29/18 04/12/18 04/19/18 12:21 11:25 12:06 Wound Center Nurse 2 #6 LLE CIRCUMFERENTIAL -Time 11:28 12:07 -Correct Patient No Yes Yes -Correct Side, Site, Position No Yes Yes -Correct Procedure No Yes Yes -Procedure Performed No Yes Yes -Type of Procedure Debridement Debridement -Clinical Debridement Selective Selective -Post Debridement Size (cm) - Length 25.5 19.0 -Post Debridement Size (cm) - Width 38.0 30.0 -Post Debridement Size (cm) - Depth 0.1 0.1 -Total Square Cm 969.00 570.00 -Wound/Ulcer Outcome Not Healed Not Healed -Ulcer Cleansing Rinsed/ Rinsed/ Irrigated with Irrigated with Saline Saline -Foul Odor after Cleansing No No -Bioengineered Tissue No No -Bleeding Controlled with Pressure NA -Other 142.5 -Treatment Response Procedure Procedure Tolerated Well Tolerated Well #4 LLE superior -Time 12:22 11:30 -Correct Patient Yes Yes -Correct Side, Site, Position Yes -Correct Procedure Yes -Procedure Performed Yes No -Type of Procedure Debridement -Clinical Debridement Subcutaneous -Post Debridement Size (cm) - Length 2.2 0 -Post Debridement Size (cm) - Width 0.3 0 -Post Debridement Size (cm) - Depth 0.2 0 -Total Square Cm 0.66 0 -Wound/Ulcer Outcome Not Healed Healed- Epithelialized -Ulcer Cleansing Rinsed/ Irrigated with Saline -Foul Odor after Cleansing No -Bioengineered Tissue No -Bleeding Controlled with Pressure -Treatment Response Procedure Tolerated Well Pain Scale: 0-10 Numeric Is Patient Pain Free? Yes Yes Yes 04/26/18 11:36 Wound Center Nurse 2 #6 LLE CIRCUMFERENTIAL -Time 11:37 -Correct Patient Yes -Correct Side, Site, Position Yes -Correct Procedure Yes -Procedure Performed No -Type of Procedure -Clinical Debridement -Post Debridement Size (cm) - Length -Post Debridement Size (cm) - Width -Post Debridement Size (cm) - Depth -Total Square Cm -Wound/Ulcer Outcome Not Healed -Ulcer Cleansing Rinsed/ Irrigated with Saline -Foul Odor after Cleansing No -Bioengineered Tissue No -Bleeding Controlled with NA -Other -Treatment Response #4 LLE superior -Time -Correct Patient -Correct Side, Site, Position -Correct Procedure -Procedure Performed -Type of Procedure -Clinical Debridement -Post Debridement Size (cm) - Length -Post Debridement Size (cm) - Width -Post Debridement Size (cm) - Depth -Total Square Cm -Wound/Ulcer Outcome -Ulcer Cleansing -Foul Odor after Cleansing -Bioengineered Tissue -Bleeding Controlled with -Treatment Response Pain Scale: 0-10 Numeric Is Patient Pain Free? Yes No debridement was completed today Assessment/Plan Active Problems Staphylococcal scalded skin syndrome (Acute) Lymphedema of lower extremity (Chronic) Anemia (Chronic) Nonstaphylococcal scalded skin syndrome (Chronic) Assessment: Lymphedema bilateral lower legs. scalded skin syndrome. nonhealing ulcer L lat lower leg. Cellulitis left leg. Renal insufficiency. MRSA and wound infections Plan: Continue to wash legs with Hibiclens well then. Xeroform to the open areas and pad with ABDs and Barb then. 4 inch and 6 inch rhea wraps to the legs. patient instructed to wear all day till bed time for the swelling. Follow-up as needed discharge from the wound center
== END 2018-04-27 23:59 ==
LOC: WC 11:00
PROVIDERS: Family Provider Family Medicine; PCP Family Medicine; Visit Provider Nurse Practitioner
DX: E83.59 Other disorders of calcium metabolism (principal); L00 Staphylococcal scalded skin syndrome; I89.0 Lymphedema, not elsewhere classified; D64.9 Anemia, unspecified; T14.8XXA Other injury of unspecified body region, initial encounter; L08.9 Local infection of the skin and subcutaneous tissue, unspecified; L97.821 Non-pressure chronic ulcer of other part of left lower leg limited to breakdown of skin; Z86.14 Personal history of Methicillin resistant Staphylococcus aureus infection
CPT/HCPCS: 11042; 11045; 97597; 97598; 99212; G0463

== ENCOUNTER → 2018-05-07 09:57 | Outpatient (CLI) | payer MEDICARE, OTHER, SELFPAY ==
--- NOTE | 2018-05-07 09:59 | CDU_ITS ---
Reason For Study: Carotid stenosis Rt. Velocities/BP Lt. Velocities/BP Prox CCA 84.4/10.6 cm/sec. Prox CCA 86.2/12.3 cm/sec. Mid CCA 79.2/12.3 cm/sec. Mid CCA 91.5/13.5 cm/sec. Dist CCA 101.0/11.1 cm/sec. Dist CCA 90.9/11.7 cm/sec. Prox ICA 76.2/14.7 cm/sec. Prox ICA 104.0/17.0 cm/sec. Mid ICA 97.9/17.6 cm/sec. Mid ICA 101.0/19.6 cm/sec. Dist ICA 73.3/14.1 cm/sec. Dist ICA 90.4/13.7 cm/sec. Rt. ICA/CCA = 1.2. Lt. ICA/CCA = 1.1. Prox ECA 110.0/5.3 cm/sec. Prox ECA 98.5/0.0 cm/sec. Rt. Vert. 39.3/9.4 cm/sec. Lt. Vert. 67.4/12.9 cm/sec. Right Extracranial There is homogeneous, smooth atherosclerotic plaque noted in the right common carotid artery. There is homogeneous, smooth atherosclerotic plaque noted in the right internal carotid artery. There is intimal thickening but no significant atherosclerotic plaque noted in the right external carotid artery. Antegrade flow is noted in the right vertebral artery. Left Extracranial There is homogeneous, smooth atherosclerotic plaque noted in the left common carotid artery. There is intimal thickening but no significant atherosclerotic plaque noted in the left internal carotid artery. There is intimal thickening but no significant atherosclerotic plaque noted in the left external carotid artery. Antegrade flow is noted in the left vertebral artery. Procedure Carotid Duplex [id number]. Exam performed in department. Interpretation Summary Mild (<50%) stenosis right extracranial internal carotid. Mild (<50%) stenosis left extracranial internal carotid. Flow within the vertebral arteries is antegrade bilaterally. Ordering Physician: TIFFANIE KHAN Referring Physician: Vijay Mason Performed By: Kerri Alvarez RVT
== END ==
PROVIDERS: Family Provider Family Medicine; PCP Family Medicine; Visit Provider Surgery Vascular Surgery
DX: I65.23 Occlusion and stenosis of bilateral carotid arteries (principal)
CPT/HCPCS: 93880

== ENCOUNTER 2018-08-14 18:33 | Inpatient (IN) | payer MEDICARE, OTHER, SELFPAY ==
[2018-08-14 18:35] VITALS: BP 178/92; PULSE 65; RESP 18; TEMP 36.1; O2SAT 99; BMI 23.6
--- NOTE | 2018-08-14 18:52 | CT_ITS ---
STUDY: CT BRAIN WITHOUT CONTRAST REASON FOR EXAM: Male, 83 years old. Fall this morning. RADIATION DOSAGE (If Supplied By Facility): CTDIvol = ( 44.99 ) mGy, DLP = ( 829.85 ) mGycm TECHNIQUE: Transaxial CT imaging of the brain was performed without administration of intravenous contrast material. # of Images: 260 Individualized dose optimization techniques were used for this CT. COMPARISON: None. FINDINGS: There is a soft tissue mass over the right parietal region above the right ear. Soft tissues are otherwise unremarkable. Normal calvarium. There is mild cerebral atrophy with widening of the extra-axial spaces and ventricular dilatation. There is increasing encephalomalacia in the left parietal lobe suggesting remote left MCA distribution infarct. Normal basal ganglia and thalami. Normal brainstem. Normal cerebellum. There is no intracranial hemorrhage. There are no findings of an acute ischemic infarction. Normal visualized paranasal sinuses. CT/Brain/Head without Contrast IMPRESSION: 1. Remote left MCA distribution infarct. 2. Chronic involutional changes without acute intracranial or calvarial abnormality. 3. Soft tissue density overlying the right parietal region suggesting subcutaneous hematoma. Electronically Signed: Dionte Castillo DO at 20:58 EDT Tel [phone], Service support ,
--- NOTE | 2018-08-14 18:52 | EKG12_ITS ---
Test Reason : FALL Blood Pressure : / mmHG Vent. Rate : 068 BPM Atrial Rate : 068 BPM P-R Int : 186 ms QRS Dur : 130 ms QT Int : 514 ms P-R-T Axes : 022 268 020 degrees QTc Int : 546 ms Sinus rhythm with Premature atrial complexes Right bundle branch block Abnormal ECG Confirmed by BRET MACK, AMY ([id number]), assistant production editor LINO HOYT ([id number] on 08/19/2018 12:32:25 PM Referred By: TRESSA Confirmed By:AMY QUEEN MD
[2018-08-14 18:53] VITALS: BP 201/135; PULSE 69; RESP 18; TEMP 36.1; O2SAT 99
--- NOTE | 2018-08-14 18:53 | CT_ITS ---
STUDY: CT CERVICAL SPINE WITHOUT CONTRAST REASON FOR EXAM: Male, 83 years old. Fall this morning. RADIATION DOSAGE (If Supplied By Facility): CTDIvol = ( 22.32 ) mGy, DLP = ( 556.17 ) mGycm TECHNIQUE: High resolution transaxial imaging was performed without contrast material. Sagittal and coronal images were reconstructed. # of Images: 482 Individualized dose optimization techniques were used for this CT. COMPARISON: None FINDINGS: Normal craniovertebral junction. There are degenerative changes of the anterior atlantoaxial articulation. Normal odontoid process. Normal cervical lordosis. Normal vertebral bodies and posterior osseous elements. 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 C2-3: There is loss of disc height with endplate spondylosis. There is facet and uncovertebral joint degenerative change. Normal central canal. Narrowing of the right intervertebral neuroforamen. C3-4: There is endplate spondylosis with loss of disc height. There is facet and uncovertebral joint degenerative change. Normal central canal. There is marked narrowing of the right intervertebral neuroforamen. C4-5: There is loss of disc height with endplate spondylosis. There is facet and uncovertebral joint degenerative change. Normal central canal. There is narrowing of the right intervertebral neuroforamen. C5-6: There is loss of disc height with endplate spondylosis. There is facet and uncovertebral joint degenerative change. Normal central canal is narrowing of the bilateral intervertebral neuroforamina, right greater than left. C6-7: There is loss of disc height with endplate spondylosis.. There is facet and uncovertebral joint degenerative change. Normal central canal and there is mild narrowing of the bilateral intervertebral neuroforamina. C7-T1: There is loss of disc height with minimal endplate spondylosis. There is facet joint degenerative change. Normal central canal. There is narrowing of the left intervertebral neuroforamen. Normal visualized soft tissue structures. CT/Spine Cervical without Contras IMPRESSION: Degenerative changes of the cervical spine without acute fracture or subluxation. Electronically Signed: Dionte Castillo DO at 21:04 EDT Tel [phone], Service support ,
--- NOTE | 2018-08-14 18:53 | RAD_ITS ---
STUDY: X-RAY - LUMBAR SPINE REASON FOR EXAM: Male, 83 years old. Infusion. Patient found on floor. Complaints of lower back pain. TECHNIQUE: 3 view(s) of the lumbar spine were obtained. COMPARISON: None FINDINGS: There is straightening of the normal lumbar lordosis. There is no substantial scoliosis. There is a normal alignment of the vertebrae. There is multilevel endplate spondylosis of the lumbar vertebrae. There is multi-level degenerative disc disease with multi-level disc space narrowing. There is no evidence of acute fracture or loss of vertebral axial height. The soft tissue structures are unremarkable. RAD/Lumbar Spine 2 or 3 Views IMPRESSION: Degenerative changes of the lumbar spine is straightened lordosis. Electronically Signed: Dionte Castillo DO at 21:06 EDT Tel [phone], Service support ,
[2018-08-14 19:02] LABS: Absolute Lymphocyte Count 0.58 X10^3/ul (0.83-4.51); Absolute Neutrophil Count 13.4 X10^3/uL (2.0-7.7); Hematocrit 43.4 % (40-54); Hemoglobin 13.2 g/dl (13.0-16.5); Lymphocyte # 0.58 X10^3/ul (4.0); Mean Corp Hgb Conc 30.4 g/gl (32-36); Mean Corpuscular Hgb 27.8 pg (27.0-32.0); Mean Corpuscular Volume 91.6 fL (80-94); Mean Platelet Vol. 11.3 fl (6.2-12.0); Monocyte# 0.35 X10^3/uL; Monocyte% 2.4 % (0-10); Neutrophil # 13.38 X10^3/uL (2.7-7.7); Neutrophil % 93.4 % (47-70); Platelet Count 228 K/mm3 (150-450); RBC Distribution Width SD 49.6 fl (35.1-43.9); Red Blood Count 4.74 M/mm3 (4.6-6.2); White Blood Count 14.3 K/mm3 (4.4-11.0)
[2018-08-14 19:23] LABS: Differential Indicated SCAN CRITERIA MET; POSITIVE COUNT NO; POSITIVE DIFFERENTIAL YES; POSITIVE MORPHOLOGY NO
[2018-08-14 19:29] LABS: Anion Gap 12 (5-15); BUN 57 mg/dL (7-18); BUN/Creat Ratio 19.5 RATIO (10-20); Calcium,Total 8.6 mg/dL (8.5-10.1); Chloride 109 mmol/L (98-107); Creatinine, Serum 2.92 mg/dL (0.70-1.30); EST Glomerular Filtration Rate 22 mL/min (>60); Est Glom Filt Rate - Afr Amer 27 mL/min (>60); Estimated Creatinine Clearance 19.84 ml/min; Glucose 107 mg/dL (74-106); Sodium Level 143 mmol/L (136-145)
[2018-08-14 19:34] LABS: Platelet Estimate A (ADEQ); Red Cell Morphology NORM C+C NORMAL (NORM C&C)
--- NOTE | 2018-08-14 19:35 | ED.RN ---
lab called with critical lab results. Potassium level 6.3. Dr. Heath made aware no new orders at this time
[2018-08-14 19:37] LABS: Potassium 6.3 mmol/L (3.5-5.1)
[2018-08-14 19:45] LABS: CPK Total, Creatine Kinase 2125 U/L (39-308)
[2018-08-14 19:47] LABS: Mucous, Urine 0 SEEN /hpf (<or=2+)
[2018-08-14 19:50] LABS: Color, Urine Amber (Yellow); Glucose, Dipstick Normal (Normal); Ketone-Dipstick 5 mg/dl (Negative); Leukocyte Esterase-Dipstick 25 /ul (Negative); Nitrite-Dipstick Positive (Negative); Occult Blood-Urine 150 /ul (Negative); Protein-Dipstick 100 mg/dl (Negative); Specific Gravity, Urine 1.025 (1.002-1.030); Urine Clarity Sl. Cloudy (Clear); Urine Urobilinogen 4 mg/dl (Normal)
[2018-08-14 19:54] LABS: Urine Bilirubin Dipstick 3 mg/dL (Negative)
[2018-08-14 19:56] LABS: Amorphous Sediment 1+ URATE; Bacteria RARE /hpf (None Seen); Red Blood Cells-Urine 5-10 SEEN /hpf (0-5); Squamous Epithelial Cells - UA 0-5 SEEN /hpf (0-5); White Blood Cells 0-5 SEEN /hpf (0-5)
[2018-08-14] MEDS: Sodium Bicarbonate 8.4% 50 ML Syringe 50 MEQ IV (20:09)
--- NOTE | 2018-08-14 20:25 | RAD_ITS ---
STUDY: X-RAY CHEST REASON FOR EXAM: Male, 83 years old. Confusion. Patient found on floor by family members. TECHNIQUE: Single AP portable view of the chest. COMPARISON: May 10, 2017. FINDINGS: Telemetry wires overlie the chest. There is a moderate right pleural effusion with subsegmental atelectasis. There is no focal mass or infiltrate within the lungs. Normal size heart. Normal mediastinum and jordan. Normal visualized pulmonary arteries. Normal visualized aortic arch and descending thoracic aorta. The thoracic spine is obscured by the mediastinum. There is degenerative osteoarthritis of the bilateral shoulders. There is no demonstrated abnormality of the visualized soft tissue structures of the upper abdomen. RAD/Chest 1 View (Portable) IMPRESSION: Enlarging right pleural effusion and atelectasis on compared to the prior study. Electronically Signed: Dionte Castillo DO at 21:05 EDT Tel [phone], Service support ,
[2018-08-14] MEDS: Dextrose 50%-Water 25 GM/50 ML DISP.SYRIN IV (20:44)
[2018-08-14 20:51] VITALS: BP 162/93; PULSE 68; RESP 16; O2SAT 99
--- NOTE | 2018-08-14 21:16 | ED.DCSUM_ITS ---
- ER Visit Summary Date of Service: 08/14/18 Chief Complaint: Confusion History of Present Illness: The patient is a [address] Vijay Mason. He lives alone and is very functional. Family reports they spoke with him yesterday and he was at his baseline. States that he did not answer his phone this morning. However, he clearly then on the computer approximately 930. They went over to his house and he was on the floor and had been unable to get up. Patient complains of generalized weakness and chills. Patient reports that he goes to the wound clinic as needed for lymphedema. Physical Examination: Vitals: Stable. Afebrile. General: Well-nourished and well-developed. Head: Normocephalic atraumatic. Neck: Supple, no lymphadenopathy. No JVD. Mild diffuse tenderness palpation over the entire C-spine. No point tenderness.. Cardiovascular: Regular rate and rhythm. 2 out of 6 systolic murmur. Respiratory: No respiratory distress. Clear to auscultation bilaterally. Abdominal: Soft, nontender, nondistended, normal bowel sounds. No guarding, rebound, or peritoneal signs. Back: Moderate diffuse tenderness palpation over his lumbar spine. No point tenderness.. Extremities: 3+ pitting edema of his lower extreme is bilaterally. He has a large ulcer on the back of his left leg that extends to subcutaneous tissues and has surrounding erythema. There is green malodorous drainage coming from this. He has superficial ulcers over both the medial and lateral malleolus of the right ankle. Neurologic: Alert and oriented ?1. Cranial nerves II through XII are intact. Normal strength and sensation. Psych: Normal affect. Test Results: EKG is sinus at 68 with PACs and right bundle branch block. It is unchanged from 2017. CBC is more for white count of 14.3, segmented neutrophils 93, lymphocytes 4. Lactic acid is 2.1. Chem-7 is more for potassium of 6.3 (moderately hemolyzed) chloride of 109, BUN of 57, creatinine 2.92. Creatinine ranged from 1.41-2.52 in 2017. UA is marked for leukocytes, nitrites, blood, and 5-10 red blood cells. Initial troponin 0 0.230. CPK is 2125. Chest x-ray shows moderate right pleural effusion with atelectasis. LS spine x-ray show degenerative changes. CT of the C-spine shows degenerative changes and no acute disease. CT brain shows a right parietal hematoma and chronic changes otherwise. Emergency Department Course and Treatment: Patient had an IV placed. He was given a liter of normal saline. He was given D50 and insulin IV. Due to the hyperkalemia and rhabdomyolysis he was given an amp of bicarb IV. He was also given Zosyn and vancomycin IV. Aerobic and anaerobic cultures were sent from his left leg. A urine culture was sent. Treatment Plan: The patient was discussed with the hospitalist and will be admitted to the hospital for further evaluation and treatment. He is also discussed with Dr. Maxwell. At this time the elevated troponin is likely from his underlying illness and does not need to be repeated. Disposition: Admitted in serious condition. Impression: 1. Ulcers to legs bilaterally. 2. Cellulitis left leg. 3. Acute kidney injury. 4. Severe sepsis. 5. Hypokalemia. 6. Rhabdomyolysis. 7. Acute delirium. 8. Right pleural effusion. 9. Critical care time 30 minutes. This note was generated with [employer] dictation software. It may contain incorrect words, spelling, and punctuation that were not noted in review of the chart prior to signing ED Disposition - Plan for ED Patient: Chief Complaint: Fall Referrals: Vijay Mason MD [Primary Care Provider] -
--- NOTE | 2018-08-14 21:23 | ED.RN ---
pt was given a sip of water and immediately started coughing and semi-choking on the liquid. dr velasco was informed and dysphagia screening was conducted.
[2018-08-14] MEDS: Vancomycin IV 1,000 MG/200 ML BAG 200 MG IV (21:29)
--- NOTE | 2018-08-14 21:42 | ED.RN ---
REMOVED DRESSING FROM WOUNDS ON BILATERAL LEGS/FEET. DRESSING WAS DRIED TO WOUND, SALINE USED TO REMOVE. PURULENT/GREEN DRAINAGE FROM WOUNDS. FOUL SMELLING ODOR. VERY REDDENED WITH OPEN SPOTS. DR. ATKINS AT BEDSIDE TO ASSESS.
--- NOTE | 2018-08-14 21:53 | ED.RN ---
lab called with critical lab results. Lactic acid 2.1. Dr. Heath made aware. no new orders at this time
[2018-08-14 21:55] LABS: Lactic Acid 2.1 mmol/L (0.4-2.0)
--- NOTE | 2018-08-14 22:17 | PCM.HP.STD ---
Problem List (1) Sepsis affecting skin Status: Acute (2) Lymphedema of lower extremity Status: Chronic (3) Gout Status: Chronic (4) BPH (benign prostatic hyperplasia) Status: Chronic (5) Benign hypertension Status: Chronic (6) Chronic renal insufficiency, stage III (moderate) Status: Chronic (7) Rhabdomyolysis Status: Acute History of Present Illness Date of Admission: 08/14/18 Chief Complaint: confusion The patient is a 83 year old M with a significant history of CVA; MRSA infection; hypertension; hyperlipidemia; Gout; lymphedema; chronic bilateral leg wounds who was found on the floor of his home; confused and found to have elevated CPK; hyperkalemia; leukocytosis and possible infection of his bilateral leg wounds concerning for probable sepsis secondary to bilateral leg infection. Probable Sepsis White count of 14.3. Patient has no other SIRS criteria. However he is on labetalol. He reports taking labetalol the morning of his admission and his heart rate was 80. It is likely that he does not tachycardia because of use of labetalol. We will treat patient's as septic with likely source from infection of bilateral leg wounds. Per ED doctor unwrapping of prior dressing on patient leg showed dark green plaques on left leg that was cultured. Patient noted to have pus from bilateral leg wounds. Patient received vancomycin and Zosyn at emergency department. Patient has a history of MRSA infection. Vancomycin continued. Because patient reportedly has been going to our wound clinic is at risk of Pseudomonas. Zosyn continued. Lactic acid on admission was 2.1. Trend. Trend CBC. Rhabdomyolysis Likely due to fall and lying at one place. Patient received IV fluid bolus at emergency department. We will continue Normal Saline IV hydration Repeat CPK in a.m. Hyperkalemia This could be due to renal failure or rhabdomyolysis. Repeat BMP stat and in a.m. Patient has no serious EKG abnormality. JOSEF on CKD stage III On admission patient's creatinine was 2.92. Review of old records show that his creatinine on 03/01/2018 was 1.41. BUN over creatinine is 19.5. Urine creatinine and urine sodium ordered. His JOSEF on CKD likely is from rhabdomyolysis Continue IV hydration Avoid nephrotoxins. Trend BMP. If his creatinine does not improve consider nephrology consult. Wound Infection Management as in probable sepsis Wound Care consult Pleural effusion Independent review confirms severe pleural effusion on the right side. Review of old records confirms increase in size of right pleural effusion. Patient oxygen saturation was 98-99% on room air. Clinical monitoring. Hypertension On admission blood pressure was not within goal. Labetalol continued. Hydralazine as needed. Gout Allopurinol continued BPH Finasteride continued. DVT prophylaxis Subcutaneous heparin. Past Medical History Past Medical History (Chronic Problems): Chronic Problems Cellulitis (Chronic) Lymphedema of lower extremity (Chronic) Nephrolithiasis (Chronic) Gout (Chronic) CKD (chronic kidney disease), stage III (Chronic) BPH (benign prostatic hyperplasia) (Chronic) Benign hypertension (Chronic) Anemia (Chronic) Chronic renal insufficiency, stage III (moderate) (Chronic) Nonstaphylococcal scalded skin syndrome (Chronic) Arthritis (Chronic) Allergies No Known Allergies Allergy (Verified 04/13/17 14:20) Home Medications: Ambulatory Orders Medication Instructions Recorded Allopurinol 300 mg PO DAILY 10/10/16 Cholecalciferol (Vitamin D3) 50,000 unit PO BURGOS 10/10/16 [Vitamin D3] Labetalol [Trandate (Beta Lily)] 200 mg PO BID 10/10/16 Pravastatin [Pravachol] 40 mg PO QHS 10/10/16 Acetaminophen [Tylenol Tablet] 650 mg PO Q6H PRN PRN tablet 04/15/17 Finasteride [Proscar] 5 mg PO DAILY #30 tablet 04/15/17 Aspirin E.C. [Ecotrin] 81 mg PO DAILY 08/14/18 Surgical History: - - Bilateral carotid endarectomy Lives: Alone - Per family grandson will go and live with patient after discharge Smoking Status: Never smoker Alcohol: None - *Family History Paternal Family History: Family History (Last Updated 08/15/18 @ 00:00 by Chase Zavala MD) Mother Hyperthyroidism Father Diabetes Aortic aneurysm rupture History Items: Diabetes Maternal Family History: Family History (Last Updated 08/15/18 @ 00:00 by Chase Zavala MD) Mother Hyperthyroidism Father Diabetes Aortic aneurysm rupture History Items: Heart Disease Review of Systems Constitutional: Reports: Weakness. Denies: Chills, Fever, Weight Change Eyes: Denies: Blurred vision, Pain HEENT: Denies: Head Aches, Sinus Congestion, Sinus Drainage Cardiovascular: Denies: Chest Pain, Palpitations Respiratory: Denies: Cough, Shortness of breath at rest, Sputum production Gastrointestinal: Denies: Abdominal Pain, Nausea, Vomiting Genitourinary: Denies: Dysuria Musculoskeletal: Denies: Joint Pain, Joint Tenderness Skin: Denies: Rash, Wounds Neurological: Denies: Numbness, Tingling, Focal weakness Psychiatric: Denies: Anxiety, Depression, Homicidal Ideations, Suicidal Ideations Hematologic/ Lymphatic: Denies: Easy Bruising, Easy Bleeding VTE Information - Inpt Only VTE Present on Admission: No VTE Mechan Device Prophylaxis: None VTE Pharm Prophylaxis ordered?: Yes Patient Problems: Active and Suspected Problems Sepsis affecting skin (Acute) Rhabdomyolysis (Acute) - Physical Exam General: Alert, Cooperative, - - Oriented to self and place. Not oriented to the year. Extremely talkative with many repetition of statements. HEENT: Atraumatic, PERRLA, EOMI, Normocephalic Neck: Supple, No JVD, Negative Carotid Bruits Lungs: Clear to auscultation, Normal air movement Cardiovascular: Regular rate, No murmurs Abdomen: Bowel Sounds Present, Soft, Non Tender Extremities: No edema, Capillary Refill Less than 3 Seconds Skin: - - Excoriations of bilateral posterior legs; and with pus. Tender left posterior leg wound. Medial and lateral redness of left leg. Swelling of left leg. Musculoskeletal: No Tenderness to Palpation of Joints or Extremities Neurological: Cranial nerves II-XII grossly intact Psych/Mental Status: Normal Affect, Appropriate Vital Signs Temp Pulse Resp BP Pulse Ox 97.0 F L 68 16 162/93 H 99 08/14/18 18:53 08/14/18 20:51 08/14/18 20:51 08/14/18 20:51 08/14/18 20:51 Oxygen Delivery Method Room Air Weight: 72.606 kg Body Mass Index (BMI) 23.6 Laboratory Tests Past 24 Hrs 08/14/18 08/14/18 08/14/18 17:35 18:45 18:45 WBC 14.3 H RBC 4.74 Hgb 13.2 Hct 43.4 MCV 91.6 MCH 27.8 MCHC 30.4 L RDW 15.0 H RDW Differential 49.6 H Plt Count 228 MPV 11.3 Immature Gran % (Auto) 0.200 Neut % (Auto) 93.4 H Lymph % (Auto) 4.0 L [place] % (Auto) 2.4 Eos % (Auto) 0.0 Baso % (Auto) 0.0 Absolute Neuts (auto) 13.4 H Absolute Lymphs (auto) 0.58 L Total Counted Not Reportable Differential Comment Platelet Estimate A RBC Morphology NORM C+C Sodium 143 Potassium 6.3 H* Chloride 109 H Carbon Dioxide 22.0 Anion Gap 12 BUN 57 H Creatinine 2.92 H Estim Creat Clear Calc 19.84 Est GFR (MDRD) Af Amer 27 L Est GFR (MDRD) Non-Af 22 L BUN/Creatinine Ratio 19.5 Glucose 107 H Lactic Acid Calcium 8.6 Total Creatine Kinase Troponin I 0.230 H Urine Color Anjelica Urine Clarity Sl. Cloudy Urine pH 5.0 Ur Specific [place] 1.025 Urine Protein 100 H Urine Glucose (UA) Normal Urine Ketones 5 H Urine Occult Blood 150 H Urine Nitrite Positive H Urine Bilirubin 3 H Urine Urobilinogen 4 H Ur Leukocyte Esterase 25 H Urine RBC 5-10 SEEN Urine WBC 0-5 SEEN Ur Squamous Epith Cells 0-5 SEEN Amorphous Sediment 1+ URATE Urine Bacteria RARE Urine Mucus 0 SEEN 08/14/18 08/14/18 18:45 21:15 WBC RBC Hgb Hct MCV MCH MCHC RDW RDW Differential Plt Count MPV Immature Gran % (Auto) Neut % (Auto) Lymph % (Auto) [place] % (Auto) Eos % (Auto) Baso % (Auto) Absolute Neuts (auto) Absolute Lymphs (auto) Total Counted Differential Comment Platelet Estimate RBC Morphology Sodium Potassium Chloride Carbon Dioxide Anion Gap BUN Creatinine Estim Creat Clear Calc Est GFR (MDRD) Af Amer Est GFR (MDRD) Non-Af BUN/Creatinine Ratio Glucose Lactic Acid 2.1 H Calcium Total Creatine Kinase 2125 H Troponin I Urine Color Urine Clarity Urine pH Ur Specific [place] Urine Protein Urine Glucose (UA) Urine Ketones Urine Occult Blood Urine Nitrite Urine Bilirubin Urine Urobilinogen Ur Leukocyte Esterase Urine RBC Urine WBC Ur Squamous Epith Cells Amorphous Sediment Urine Bacteria Urine Mucus Assessment/Plan All Active Problems Staphylococcal scalded skin syndrome (Acute) 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 Per family patient was found on the floor with his recliner chair sit up forward and with scattered changes all over and a ceramics over his body and his hands entangled in wires. His family thinks that he fell and he tried to get up. Per his family patient was confused. When asked multiple questions he he was found; he kept saying: I am hoarse. Per family patient is normal alert, oriented and sharp. He has bilateral leg wounds that he follows up with the wound clinic. At emergency department patient was found to have elevated CPK. Also was found to have elevated potassium of 6.3. However his blood was slightly hemolyzed. Patient received D50, insulin and bicarbonate for this hyperkalemia. Patient was diagnosed with sepsis and received vancomycin and Zosyn. Probable Sepsis White count of 14.3. Patient has no other Sirs criteria. However he is on labetalol. He reports taking labetalol the morning of his admission and his heart rate was 80. We will treat patient's as a sepsis with likely source from infection of bilateral leg wounds. Per ED doctor unwrapping of prior dressing on patient leg showed dark green plaques on left leg that was cultured. Patient noted to have pus from bilateral leg wounds. Patient received vancomycin and Zosyn at emergency department. Patient has a history of MRSA infection. Vancomycin continued. Because patient reportedly has been going to our wound clinic is at risk of Pseudomonas. Zosyn continued. Lactic acid on admission was 2.1. Trend. Rhabdomyolysis Likely due to fall and line at one place. Patient received IV fluid bolus at emergency department. We will continue patient on half-normal saline due to hyperchloremia. Repeat CPK in a.m. Hyperkalemia This could be due to renal failure or rhabdomyolysis. Repeat BMP stat and in a.m. Patient has no serious EKG abnormality. Wound Infection Management as in probable sepsis Wound Care consult Pleural effusion Independent review confirms severe pleural effusion on the right side. Review of old records confirms increase in size of right pleural effusion. Patient oxygen saturation was 98-99% on room air. Clinical monitoring. Code Visit Inpatient E&M: 62062 In Hosp L3
[2018-08-14 22:48] VITALS: BP 156/98; PULSE 80; RESP 20; O2SAT 98
--- NOTE | 2018-08-14 22:55 | ED.RN ---
PT FAILED DYSPHAGIA SCREEN IN ED
[2018-08-15] VITALS (16 sets, daily range): BP systolic 147–182; BP diastolic 71–95; PULSE 62–80; RESP 16–20; TEMP 36.4–37.1; O2SAT 98–100; BMI 24.2
[2018-08-15 00:52] LABS: Anion Gap 11 (5-15); BUN 61 mg/dL (7-18); BUN/Creat Ratio 19.1 RATIO (10-20); Calcium,Total 8.3 mg/dL (8.5-10.1); Chloride 110 mmol/L (98-107); EST Glomerular Filtration Rate 20 mL/min (>60); Est Glom Filt Rate - Afr Amer 24 mL/min (>60); Glucose 159 mg/dL (74-106); Potassium 5.1 mmol/L (3.5-5.1); Sodium Level 145 mmol/L (136-145)
--- NOTE | 2018-08-15 01:02 | PCM.RX.CS ---
Consult Pharmacy has been consulted to manage selected antiobiotic: Vancomycin Type of Consult: New start Suspected Infection: Sepsis Prior Doses of Antibiotics Received/Current Regimen: Medications Discontinued Medications Vancomycin HCl (Vancomycin) 1,000 mg in 200 mls @ 200 mls/hr IV X1 ONE Stop: 08/14/18 21:29 Last Admin: 08/14/18 21: Dose: 200 mls/hr Labs: Sodium 145 mmol/L (136-145) 08/15/18 00:25 Potassium 5.1 mmol/L (3.5-5.1) 08/15/18 00:25 Chloride 110 mmol/L (98-107) H 08/15/18 00:25 Carbon Dioxide 24.0 mmol/L (21.0-32.0) 08/15/18 00:25 Anion Gap 11 (5-15) 08/15/18 00:25 BUN 61 mg/dL (7-18) H 08/15/18 00:25 Creatinine 3.20 mg/dL (0.70-1.30) H 08/15/18 00:25 Est GFR (MDRD) Af Amer 24 mL/min (>60) L 08/15/18 00:25 Est GFR (MDRD) Non-Af 20 mL/min (>60) L 08/15/18 00:25 BUN/Creatinine Ratio 19.1 RATIO (10-20) 08/15/18 00:25 Glucose 159 mg/dL (74-106) H 08/15/18 00:25 Weight used for dosin.4 kg Estimated Creatinine Clearance: 18.1 Goal Trough: 15-20 mcg/mL Pharmacy Plan for Drug Dosing: Due to CrCl<20 (18.1) a random vancomycin level will be drawn 08/16/18 @0600 and further dosing determined from results. Pharmacy Service will continue to monitor and adjust dosing as required. Follow-Up Labs: Trough Vancomycin - random level Labs to be done on [date and time ordered]: 08/16/18 @0600
[2018-08-15] MEDS: 0.9% Normal Saline 1,000 ML 100 ML IV (01:17)
[2018-08-15] MEDS: 0.9% NaCl Peripheral Flush Adult/Peds IV (01:17)
[2018-08-15 01:25] LABS: Reflex Lactate? Y
[2018-08-15 02:28] LABS: Lactic Acid 2.3 mmol/L (0.4-2.0)
[2018-08-15 05:46] LABS: BUN 64 mg/dL (7-18); Creatinine, Serum 3.18 mg/dL (0.70-1.30); EST Glomerular Filtration Rate 20 mL/min (>60); Estimated Creatinine Clearance 18.22 ml/min; Glucose 122 mg/dL (74-106)
[2018-08-15 05:47] LABS: Anion Gap 9 (5-15); BUN/Creat Ratio 20.1 RATIO (10-20); CPK Total, Creatine Kinase 890 U/L (39-308); Calcium,Total 7.9 mg/dL (8.5-10.1); Chloride 113 mmol/L (98-107); Est Glom Filt Rate - Afr Amer 24 mL/min (>60); Potassium 5.1 mmol/L (3.5-5.1); Sodium Level 144 mmol/L (136-145)
[2018-08-15 05:51] LABS: Urine Sodium 55 mmol/L (Not Establ.)
[2018-08-15] MEDS: Piperacil/Tazobactam 3.375 GM/50 ML ML IV ×2 (09:48→22:36)
[2018-08-15] MEDS: Heparin Injection (Vial) 5,000 UNIT/ML VIAL 5000 UNIT SC ×2 (09:49→22:38)
[2018-08-15] MEDS: 0.9% Normal Saline 1,000 ML 999 ML IV (09:52)
[2018-08-15] MEDS: 0.9% Normal Saline 1,000 ML 125 ML IV ×2 (09:53→18:46)
--- NOTE | 2018-08-15 10:18 | PCM.CONS.R ---
Problem List (1) Acute kidney injury superimposed on chronic kidney disease Status: Acute (2) Hyperkalemia Status: Acute Consultation - Renal PCP/ Referring MD: Requesting physician: [] Primary care physician: Vijay Mason MD - History of Present Illness History of Present Illness: The patient is a 83 year old M with medical history of gout, BPH, hyperlipidemia, vitamin D deficiency and CVA back in 1999. Patient was brought to [facility] emergency room yesterday because he was found by his family members on the floor. In the previous days, patient was in his usual status. In the emergency department, he was found to have acute kidney injury and hyperkalemia along with a sepsis due to cellulitis/UTI and rhabdomyolysis Renal team was consulted today for hyperkalemia management. Patient has chronic kidney disease at the baseline with baseline creatinine is around 1.4-1.5 mg deciliter. Last creatinine available was from February 2018 which shows creatinine 1.48 mg deciliter. Patient presented with a creatinine 2.9. Lloyd catheter was placed. Patient was given 2 L of normal saline yesterday and one liter of normal saline today . Kidney function did not improve , creatinine today 3.18 mg/dL . Patient seems oliguric . Patient started on antibiotic Zosyn/vancomycin . Urine culture and blood cultures are pending . Chest x-ray shows right lower pleural effusion moderate-sized with atelectasis . 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 along with right subcutaneous parietal hematoma Review of systems : 12 systems review is negative except for weakness , disorientation .[] - Allergies Allergies: Allergies No Known Allergies Allergy (Verified 04/13/17 14:20) - Current Medications Current Medications: Current Medications Acetaminophen (Tylenol) 650 mg PO Q6H PRN PRN PRN Reason: FEVER Allopurinol (Zyloprim) 300 mg PO DAILYCM [facility] Last Admin: 08/15/18 09:35 Dose: Not Given Aspirin (Ecotrin) 81 mg PO DAILYCM [facility] Last Admin: 08/15/18 09:35 Dose: Not Given Ergocalciferol (Vitamin D) 50,000 unit PO BURGOS [facility] Finasteride (Proscar) 5 mg PO DAILY [facility] Last Admin: 08/15/18 09:36 Dose: Not Given Heparin Sodium (Porcine) (Heparin Na) 5,000 unit SC Q12 [facility] Last Admin: 08/15/18 09:49 Dose: 5,000 unit Hydralazine HCl (Apresoline Iv) 5 mg IV Q4H PRN PRN PRN Reason: SBP > 160 Piperacillin Sod/Tazobactam Sod (Zosyn) 3.375 gm in 50 mls @ 12.5 mls/hr IV Q12 [facility] Last Admin: 08/15/18 09:48 Dose: 12.5 mls/hr Vancomycin IV Pharmacy to Dose (1,000 ea/ Sodium Chloride) 500 mls @ 250 mls/hr IV X1 PRN; Protocol Sodium Chloride () 1,000 mls @ 100 mls/hr IV .Q10H [facility] Stop: 08/15/18 10:29 Last Admin: 08/15/18 01:17 Dose: 100 mls/hr Sodium Chloride () 1,000 mls @ 999 mls/hr IV .Q1H1M ONE Stop: 08/15/18 10:37 Last Admin: 08/15/18 09:52 Dose: 999 mls/hr Sodium Chloride () 1,000 mls @ 125 mls/hr IV .Q8H [facility] Last Admin: 08/15/18 09:53 Dose: 125 mls/hr Labetalol HCl (Trandate) 200 mg PO BID [facility] Last Admin: 08/15/18 09:36 Dose: Not Given Magnesium Hydroxide (Milk Of Magnesia) 30 ml PO DAILY PRN PRN Reason: Constipation Nutritional Formula (Lactose Free) (Ensure Enlive) 120 ml PO 4X/DAY [facility] Last Admin: 08/15/18 09:36 Dose: Not Given Ondansetron HCl (Zofran) 4 mg IV Q8H PRN PRN PRN Reason: NAUSEA Pravastatin Sodium (Pravachol) 40 mg PO QHS [facility] Sodium Chloride () 5 - 30 ml IV UD PRN PRN Reason: SALINE FLUSH Last Admin: 08/15/18 01:17 Dose: 5 ml - Past Medical History Past Medical History (Chronic Problems): Chronic Problems Cellulitis (Chronic) Lymphedema of lower extremity (Chronic) Nephrolithiasis (Chronic) Gout (Chronic) CKD (chronic kidney disease), stage III (Chronic) BPH (benign prostatic hyperplasia) (Chronic) Benign hypertension (Chronic) Anemia (Chronic) Chronic renal insufficiency, stage III (moderate) (Chronic) Nonstaphylococcal scalded skin syndrome (Chronic) Arthritis (Chronic) - Past Surgical History Surgical History: - - Bilateral carotid endarectomy - Social History Smoking Status: Never smoker Alcohol: None - Family History Paternal Family History: Family History (Last Updated 08/15/18 @ 00:00 by Chase Zavala MD) Mother Hyperthyroidism Father Diabetes Aortic aneurysm rupture History Items: Diabetes Maternal Family History: Family History (Last Updated 08/15/18 @ 00:00 by Chase Zavala MD) Mother Hyperthyroidism Father Diabetes Aortic aneurysm rupture History Items: Heart Disease Patient Problems: Active and Suspected Problems Sepsis affecting skin (Acute) Rhabdomyolysis (Acute) Acute kidney injury superimposed on chronic kidney disease (Acute) Hyperkalemia (Acute) - Physical Exam General: Alert, Cooperative, Well developed, Disoriented Oral: Dry Mucosa Neck: Supple, No JVD Lungs: No rhonchi, No wheeze, No rales, - - Decreased breath sounds over right lower lobe Cardiovascular: Regular rate, Regular Rhythm, Normal S1, Normal S2 Abdomen: Bowel Sounds Present, Soft, Non Tender Extremities: No clubbing, No cyanosis, - - Both legs are wrapped up Skin: No rashes Musculoskeletal: No Muscle Wasting Lymphatic: No Cervical, Supraclavicular, or Inguinal Adenopathy Psych/Mental Status: Appropriate Vital Signs Temp Pulse Resp BP Pulse Ox 98.1 F 70 18 172/77 H 99 08/15/18 06:15 08/15/18 07:11 08/15/18 06:15 08/15/18 06:15 08/15/18 06:35 Oxygen Delivery Method Room Air Weight: 74.4 kg Body Mass Index (BMI) 24.2 Intake and Output for Last 24 Hours 08/13/18 08/14/18 08/15/18 23:59 23:59 23:59 Output Total 50 / 50 Balance -50 / -50 Laboratory Tests Past 24 Hrs 08/14/18 08/14/18 08/14/18 17:35 17:35 17:35 WBC RBC Hgb Hct MCV MCH MCHC RDW RDW Differential Plt Count MPV Immature Gran % (Auto) Neut % (Auto) Lymph % (Auto) [facility] % (Auto) Eos % (Auto) Baso % (Auto) Absolute Neuts (auto) Absolute Lymphs (auto) Total Counted Differential Comment Platelet Estimate RBC Morphology Sodium Potassium Chloride Carbon Dioxide Anion Gap BUN Creatinine Estim Creat Clear Calc Est GFR (MDRD) Af Amer Est GFR (MDRD) Non-Af BUN/Creatinine Ratio Glucose Lactic Acid Calcium Ammonia Total Creatine Kinase Troponin I Urine Color Anjelica Urine Clarity Sl. Cloudy Urine pH 5.0 Ur Specific [place] 1.025 Urine Protein 100 H Urine Glucose (UA) Normal Urine Ketones 5 H Urine Occult Blood 150 H Urine Nitrite Positive H Urine Bilirubin 3 H Urine Urobilinogen 4 H Ur Leukocyte Esterase 25 H Urine RBC 5-10 SEEN Urine WBC 0-5 SEEN Ur Squamous Epith Cells 0-5 SEEN Amorphous Sediment 1+ URATE Urine Bacteria RARE Urine Mucus 0 SEEN Ur Random Sodium 55 Urine Creatinine 253.00 08/14/18 08/14/18 08/14/18 18:45 18:45 18:45 WBC 14.3 H RBC 4.74 Hgb 13.2 Hct 43.4 MCV 91.6 MCH 27.8 MCHC 30.4 L RDW 15.0 H RDW Differential 49.6 H Plt Count 228 MPV 11.3 Immature Gran % (Auto) 0.200 Neut % (Auto) 93.4 H Lymph % (Auto) 4.[address] [facility] % (Auto) 2.4 Eos % (Auto) 0.0 Baso % (Auto) 0.0 Absolute Neuts (auto) 13.4 H Absolute Lymphs (auto) 0.58 L Total Counted Not Reportable Differential Comment Platelet Estimate A RBC Morphology NORM C+C Sodium 143 Potassium 6.3 H* Chloride 109 H Carbon Dioxide 22.0 Anion Gap 12 BUN 57 H Creatinine 2.92 H Estim Creat Clear Calc 19.84 Est GFR (MDRD) Af Amer 27 L Est GFR (MDRD) Non-Af 22 L BUN/Creatinine Ratio 19.5 Glucose 107 H Lactic Acid Calcium 8.6 Ammonia Total Creatine Kinase 2125 H Troponin I 0.230 H Urine Color Urine Clarity Urine pH Ur Specific [place] Urine Protein Urine Glucose (UA) Urine Ketones Urine Occult Blood Urine Nitrite Urine Bilirubin Urine Urobilinogen Ur Leukocyte Esterase Urine RBC Urine WBC Ur Squamous Epith Cells Amorphous Sediment Urine Bacteria Urine Mucus Ur Random Sodium Urine Creatinine 08/14/18 08/15/18 08/15/18 21:15 00:25 01:33 WBC RBC Hgb Hct MCV MCH MCHC RDW RDW Differential Plt Count MPV Immature Gran % (Auto) Neut % (Auto) Lymph % (Auto) [facility] % (Auto) Eos % (Auto) Baso % (Auto) Absolute Neuts (auto) Absolute Lymphs (auto) Total Counted Differential Comment Platelet Estimate RBC Morphology Sodium 145 Potassium 5.1 Chloride 110 H Carbon Dioxide 24.0 Anion Gap 11 BUN 61 H Creatinine 3.20 H Estim Creat Clear Calc 18.10 Est GFR (MDRD) Af Amer 24 L Est GFR (MDRD) Non-Af 20 L BUN/Creatinine Ratio 19.1 Glucose 159 H Lactic Acid 2.1 H 2.3 H Calcium 8.3 L Ammonia Total Creatine Kinase Troponin I Urine Color Urine Clarity Urine pH Ur Specific [place] Urine Protein Urine Glucose (UA) Urine Ketones Urine Occult Blood Urine Nitrite Urine Bilirubin Urine Urobilinogen Ur Leukocyte Esterase Urine RBC Urine WBC Ur Squamous Epith Cells Amorphous Sediment Urine Bacteria Urine Mucus Ur Random Sodium Urine Creatinine 08/15/18 08/15/18 05:20 09:38 WBC RBC Hgb Hct MCV MCH MCHC RDW RDW Differential Plt Count MPV Immature Gran % (Auto) Neut % (Auto) Lymph % (Auto) [facility] % (Auto) Eos % (Auto) Baso % (Auto) Absolute Neuts (auto) Absolute Lymphs (auto) Total Counted Differential Comment Platelet Estimate RBC Morphology Sodium 144 Potassium 5.1 Chloride 113 H Carbon Dioxide 22.0 Anion Gap 9 BUN 64 H Creatinine 3.18 H Estim Creat Clear Calc 18.22 Est GFR (MDRD) Af Amer 24 L Est GFR (MDRD) Non-Af 20 L BUN/Creatinine Ratio 20.1 H Glucose 122 H Lactic Acid Calcium 7.9 L Ammonia 18.0 Total Creatine Kinase 890 H Troponin I Urine Color Urine Clarity Urine pH Ur Specific [place] Urine Protein Urine Glucose (UA) Urine Ketones Urine Occult Blood Urine Nitrite Urine Bilirubin Urine Urobilinogen Ur Leukocyte Esterase Urine RBC Urine WBC Ur Squamous Epith Cells Amorphous Sediment Urine Bacteria Urine Mucus Ur Random Sodium Urine Creatinine Assessment/Plan All Active Problems 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 Baseline creatinine seems around 1.4-1.8 mg deciliter. UA showed 100 protein, occult blood 50, nitrite positive, RBCs 5-10 white cell 0-5. FeNa is 0.4% Acute kidney injury related to prerenal from dehydration due to poor oral intake . Postrenal is less likely since the patient has a Lloyd catheter in place I agree with IV fluid for volume expansion. I doubt another etiology of acute kidney injury for now. Please keep mean arterial pressure more than 65. Avoid PATITO inhibitor/ARB for now. No indication for renal replacement therapy. Check kidney function in the morning. 2-hyperkalemia: Related to acute kidney injury. Treated medically with D50/insulin. Potassium today 5.1. Check potassium level in a.m.. 3-sepsis due to cellulitis/UTI. On Zosyn and vancomycin. They are appropriately dosed for the current kidney function. Please monitor vancomycin trough level to keep it between 15 and 20. 4-hypertension: Blood pressure is elevated. I will increase labetalol to 400 twice a day. Might add hydralazine scheduled doses if blood pressure remains uncontrolled. Please avoid PATITO inhibitor/ARB and diuretics for now. 5-BPH: Continue finasteride and Flomax. Continuos urine drainage via Lloyd catheter You for the consult. Kidney team will continue to follow. I will discussed the plan of care with Dr. Vela. Zakia Meyer MD [phone]
--- NOTE | 2018-08-15 10:23 | CON.PCM_ITS ---
Problem List (1) Acute kidney injury superimposed on chronic kidney disease Status: Acute (2) Hyperkalemia Status: Acute Consultation - Renal PCP/ Referring MD: Requesting physician: [] Primary care physician: Vijay Mason MD - History of Present Illness History of Present Illness: The patient is a 83 year old M with medical history of gout, BPH, hyperlipidemia, vitamin D deficiency and CVA back in 1999. Patient was brought to [facility] emergency room yesterday because he was found by his family members on the floor. In the previous days, patient was in his usual status. In the emergency department, he was found to have acute kidney injury and hyperkalemia along with a sepsis due to cellulitis/UTI and rhabdomyolysis Renal team was consulted today for hyperkalemia management. Patient has chronic kidney disease at the baseline with baseline creatinine is around 1.4-1.5 mg deciliter. Last creatinine available was from February 2018 which shows creatinine 1.48 mg deciliter. Patient presented with a creatinine 2.9. Lloyd catheter was placed. Patient was given 2 L of normal saline yesterday and one liter of normal saline today . Kidney function did not improve , creatinine today 3.18 mg/dL . Patient seems oliguric . Patient started on antibiotic Zosyn/vancomycin . Urine culture and blood cultures are pending . Chest x-ray shows right lower pleural effusion moderate-sized with atelectasis . 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 along with right subcutaneous parietal hematoma Review of systems : 12 systems review is negative except for weakness , disorientation .[] - Allergies Allergies: Allergies No Known Allergies Allergy (Verified 04/13/17 14:20) - Current Medications Current Medications: Current Medications Acetaminophen (Tylenol) 650 mg PO Q6H PRN PRN PRN Reason: FEVER Allopurinol (Zyloprim) 300 mg PO DAILYCM [facility] Last Admin: 08/15/18 09:35 Dose: Not Given Aspirin (Ecotrin) 81 mg PO DAILYCM [facility] Last Admin: 08/15/18 09:35 Dose: Not Given Ergocalciferol (Vitamin D) 50,000 unit PO BURGOS [facility] Finasteride (Proscar) 5 mg PO DAILY [facility] Last Admin: 08/15/18 09:36 Dose: Not Given Heparin Sodium (Porcine) (Heparin Na) 5,000 unit SC Q12 [facility] Last Admin: 08/15/18 09:49 Dose: 5,000 unit Hydralazine HCl (Apresoline Iv) 5 mg IV Q4H PRN PRN PRN Reason: SBP > 160 Piperacillin Sod/Tazobactam Sod (Zosyn) 3.375 gm in 50 mls @ 12.5 mls/hr IV Q12 [facility] Last Admin: 08/15/18 09:48 Dose: 12.5 mls/hr Vancomycin IV Pharmacy to Dose (1,000 ea/ Sodium Chloride) 500 mls @ 250 mls/hr IV X1 PRN; Protocol Sodium Chloride () 1,000 mls @ 100 mls/hr IV .Q10H [facility] Stop: 08/15/18 10:29 Last Admin: 08/15/18 01:17 Dose: 100 mls/hr Sodium Chloride () 1,000 mls @ 999 mls/hr IV .Q1H1M ONE Stop: 08/15/18 10:37 Last Admin: 08/15/18 09:52 Dose: 999 mls/hr Sodium Chloride () 1,000 mls @ 125 mls/hr IV .Q8H [facility] Last Admin: 08/15/18 09:53 Dose: 125 mls/hr Labetalol HCl (Trandate) 200 mg PO BID [facility] Last Admin: 08/15/18 09:36 Dose: Not Given Magnesium Hydroxide (Milk Of Magnesia) 30 ml PO DAILY PRN PRN Reason: Constipation Nutritional Formula (Lactose Free) (Ensure Enlive) 120 ml PO 4X/DAY [facility] Last Admin: 08/15/18 09:36 Dose: Not Given Ondansetron HCl (Zofran) 4 mg IV Q8H PRN PRN PRN Reason: NAUSEA Pravastatin Sodium (Pravachol) 40 mg PO QHS [facility] Sodium Chloride () 5 - 30 ml IV UD PRN PRN Reason: SALINE FLUSH Last Admin: 08/15/18 01:17 Dose: 5 ml - Past Medical History Past Medical History (Chronic Problems): Chronic Problems Cellulitis (Chronic) Lymphedema of lower extremity (Chronic) Nephrolithiasis (Chronic) Gout (Chronic) CKD (chronic kidney disease), stage III (Chronic) BPH (benign prostatic hyperplasia) (Chronic) Benign hypertension (Chronic) Anemia (Chronic) Chronic renal insufficiency, stage III (moderate) (Chronic) Nonstaphylococcal scalded skin syndrome (Chronic) Arthritis (Chronic) - Past Surgical History Surgical History: - - Bilateral carotid endarectomy - Social History Smoking Status: Never smoker Alcohol: None - Family History Paternal Family History: Family History (Last Updated 08/15/18 @ 00:00 by Chase Zavala MD) Mother Hyperthyroidism Father Diabetes Aortic aneurysm rupture History Items: Diabetes Maternal Family History: Family History (Last Updated 08/15/18 @ 00:00 by Chase Zavala MD) Mother Hyperthyroidism Father Diabetes Aortic aneurysm rupture History Items: Heart Disease Patient Problems: Active and Suspected Problems Sepsis affecting skin (Acute) Rhabdomyolysis (Acute) Acute kidney injury superimposed on chronic kidney disease (Acute) Hyperkalemia (Acute) - Physical Exam General: Alert, Cooperative, Well developed, Disoriented Oral: Dry Mucosa Neck: Supple, No JVD Lungs: No rhonchi, No wheeze, No rales, - - Decreased breath sounds over right lower lobe Cardiovascular: Regular rate, Regular Rhythm, Normal S1, Normal S2 Abdomen: Bowel Sounds Present, Soft, Non Tender Extremities: No clubbing, No cyanosis, - - Both legs are wrapped up Skin: No rashes Musculoskeletal: No Muscle Wasting Lymphatic: No Cervical, Supraclavicular, or Inguinal Adenopathy Psych/Mental Status: Appropriate Vital Signs Temp Pulse Resp BP Pulse Ox 98.1 F 70 18 172/77 H 99 08/15/18 06:15 08/15/18 07:11 08/15/18 06:15 08/15/18 06:15 08/15/18 06:35 Oxygen Delivery Method Room Air Weight: 74.4 kg Body Mass Index (BMI) 24.2 Intake and Output for Last 24 Hours 08/13/18 08/14/18 08/15/18 23:59 23:59 23:59 Output Total 50 / 50 Balance -50 / -50 Laboratory Tests Past 24 Hrs 08/14/18 08/14/18 08/14/18 17:35 17:35 17:35 WBC RBC Hgb Hct MCV MCH MCHC RDW RDW Differential Plt Count MPV Immature Gran % (Auto) Neut % (Auto) Lymph % (Auto) [place] % (Auto) Eos % (Auto) Baso % (Auto) Absolute Neuts (auto) Absolute Lymphs (auto) Total Counted Differential Comment Platelet Estimate RBC Morphology Sodium Potassium Chloride Carbon Dioxide Anion Gap BUN Creatinine Estim Creat Clear Calc Est GFR (MDRD) Af Amer Est GFR (MDRD) Non-Af BUN/Creatinine Ratio Glucose Lactic Acid Calcium Ammonia Total Creatine Kinase Troponin I Urine Color Anjelica Urine Clarity Sl. Cloudy Urine pH 5.0 Ur Specific [place] 1.025 Urine Protein 100 H Urine Glucose (UA) Normal Urine Ketones 5 H Urine Occult Blood 150 H Urine Nitrite Positive H Urine Bilirubin 3 H Urine Urobilinogen 4 H Ur Leukocyte Esterase 25 H Urine RBC 5-10 SEEN Urine WBC 0-5 SEEN Ur Squamous Epith Cells 0-5 SEEN Amorphous Sediment 1+ URATE Urine Bacteria RARE Urine Mucus 0 SEEN Ur Random Sodium 55 Urine Creatinine 253.00 08/14/18 08/14/18 08/14/18 18:45 18:45 18:45 WBC 14.3 H RBC 4.74 Hgb 13.2 Hct 43.4 MCV 91.6 MCH 27.8 MCHC 30.4 L RDW 15.0 H RDW Differential 49.6 H Plt Count 228 MPV 11.3 Immature Gran % (Auto) 0.200 Neut % (Auto) 93.4 H Lymph % (Auto) 4.0 L [place] % (Auto) 2.4 Eos % (Auto) 0.0 Baso % (Auto) 0.0 Absolute Neuts (auto) 13.4 H Absolute Lymphs (auto) 0.58 L Total Counted Not Reportable Differential Comment Platelet Estimate A RBC Morphology NORM C+C Sodium 143 Potassium 6.3 H* Chloride 109 H Carbon Dioxide 22.0 Anion Gap 12 BUN 57 H Creatinine 2.92 H Estim Creat Clear Calc 19.84 Est GFR (MDRD) Af Amer 27 L Est GFR (MDRD) Non-Af 22 L BUN/Creatinine Ratio 19.5 Glucose 107 H Lactic Acid Calcium 8.6 Ammonia Total Creatine Kinase 2125 H Troponin I 0.230 H Urine Color Urine Clarity Urine pH Ur Specific [place] Urine Protein Urine Glucose (UA) Urine Ketones Urine Occult Blood Urine Nitrite Urine Bilirubin Urine Urobilinogen Ur Leukocyte Esterase Urine RBC Urine WBC Ur Squamous Epith Cells Amorphous Sediment Urine Bacteria Urine Mucus Ur Random Sodium Urine Creatinine 08/14/18 08/15/18 08/15/18 21:15 00:25 01:33 WBC RBC Hgb Hct MCV MCH MCHC RDW RDW Differential Plt Count MPV Immature Gran % (Auto) Neut % (Auto) Lymph % (Auto) [place] % (Auto) Eos % (Auto) Baso % (Auto) Absolute Neuts (auto) Absolute Lymphs (auto) Total Counted Differential Comment Platelet Estimate RBC Morphology Sodium 145 Potassium 5.1 Chloride 110 H Carbon Dioxide 24.0 Anion Gap 11 BUN 61 H Creatinine 3.20 H Estim Creat Clear Calc 18.10 Est GFR (MDRD) Af Amer 24 L Est GFR (MDRD) Non-Af 20 L BUN/Creatinine Ratio 19.1 Glucose 159 H Lactic Acid 2.1 H 2.3 H Calcium 8.3 L Ammonia Total Creatine Kinase Troponin I Urine Color Urine Clarity Urine pH Ur Specific [place] Urine Protein Urine Glucose (UA) Urine Ketones Urine Occult Blood Urine Nitrite Urine Bilirubin Urine Urobilinogen Ur Leukocyte Esterase Urine RBC Urine WBC Ur Squamous Epith Cells Amorphous Sediment Urine Bacteria Urine Mucus Ur Random Sodium Urine Creatinine 08/15/18 08/15/18 05:20 09:38 WBC RBC Hgb Hct MCV MCH MCHC RDW RDW Differential Plt Count MPV Immature Gran % (Auto) Neut % (Auto) Lymph % (Auto) [place] % (Auto) Eos % (Auto) Baso % (Auto) Absolute Neuts (auto) Absolute Lymphs (auto) Total Counted Differential Comment Platelet Estimate RBC Morphology Sodium 144 Potassium 5.1 Chloride 113 H Carbon Dioxide 22.0 Anion Gap 9 BUN 64 H Creatinine 3.18 H Estim Creat Clear Calc 18.22 Est GFR (MDRD) Af Amer 24 L Est GFR (MDRD) Non-Af 20 L BUN/Creatinine Ratio 20.1 H Glucose 122 H Lactic Acid Calcium 7.9 L Ammonia 18.0 Total Creatine Kinase 890 H Troponin I Urine Color Urine Clarity Urine pH Ur Specific [place] Urine Protein Urine Glucose (UA) Urine Ketones Urine Occult Blood Urine Nitrite Urine Bilirubin Urine Urobilinogen Ur Leukocyte Esterase Urine RBC Urine WBC Ur Squamous Epith Cells Amorphous Sediment Urine Bacteria Urine Mucus Ur Random Sodium Urine Creatinine Assessment/Plan All Active Problems 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 Baseline creatinine seems around 1.4-1.8 mg deciliter. UA showed 100 protein, occult blood 50, nitrite positive, RBCs 5-10 white cell 0-5. FeNa is 0.4% Acute kidney injury related to prerenal from dehydration due to poor oral intake . Postrenal is less likely since the patient has a Lloyd catheter in place I agree with IV fluid for volume expansion. I doubt another etiology of acute kidney injury for now. Please keep mean arterial pressure more than 65. Avoid PATITO inhibitor/ARB for now. No indication for renal replacement therapy. Check kidney function in the morning. 2-hyperkalemia: Related to acute kidney injury. Treated medically with D50/insulin. Potassium today 5.1. Check potassium level in a.m.. 3-sepsis due to cellulitis/UTI. On Zosyn and vancomycin. They are appropriately dosed for the current kidney function. Please monitor vancomycin trough level to keep it between 15 and 20. 4-hypertension: Blood pressure is elevated. I will increase labetalol to 400 twice a day. Might add hydralazine scheduled doses if blood pressure remains uncontrolled. Please avoid PATITO inhibitor/ARB and diuretics for now. 5-BPH: Continue finasteride and Flomax. Continuos urine drainage via Lloyd catheter You for the consult. Kidney team will continue to follow. I will discussed the plan of care with Dr. Vela. Zakia Meyer MD [phone]
--- NOTE | 2018-08-15 10:32 | US_ITS ---
STUDY: RENAL ULTRASOUND - COMPLETE REASON FOR EXAM: Male, 83 years old. Acute renal failure. TECHNIQUE: Ultrasound evaluation of the kidneys was performed with real-time and static astorga-scale imaging. # of Images: 52 COMPARISON: CT of the abdomen and pelvis, April 07, 2017. Report of a renal ultrasound, performed September 26, 2011, which is not available for direct comparison. FINDINGS: RIGHT KIDNEY: Normal location of the right kidney, which is normal in size. The right kidney measures 8.8 cm. There is increased renal cortical echogenicity. The renal cortex measures 1.1 cm. There is no right renal mass or cyst. A small lower pole exophytic cyst seen on the CT is not clearly identified. There are renal calculi in the lower pole with acoustic shadowing. The largest measures 9 mm in greatest dimension. There is no right hydronephrosis. DISTAL RIGHT URETER: There is non-visualization of the distal right ureter. There is no demonstrated right ureterovesical junction calculus. Dictated LEFT KIDNEY: Normal location of the left kidney, which is normal in size. The left kidney measures 8.5 cm. There is increased renal cortical echogenicity. There is mild cortical thinning. The renal cortex measures 0.9 cm. There is no left renal mass or cyst. There are no left renal calculi. There is no left hydronephrosis. DISTAL LEFT URETER: There is non-visualization of the distal left ureter. There is no demonstrated left ureterovesical junction calculus. There is no demonstrated left ureteral jet. BLADDER: The urinary bladder could not be evaluated as it is collapsed about a Lloyd catheter. US/Kidney and Bladder IMPRESSION: 1. Right lower pole renal calculi. This correlate with the calcifications seen on the CT scan. A small exophytic cyst seen in the lower pole of the right kidney is not identified however this may be partially obscured by bowel gas. 2. Bilateral increased renal cortical echogenicity with cortical thinning on the left. The findings suggest medical renal disease. 3. Inability to evaluate the urinary bladder due to nondistention. Electronically Signed: Dionte Castillo DO at 16:08 EDT Tel [phone], Service support ,
--- NOTE | 2018-08-15 10:34 | PCM.PROGNOTE ---
<Lion Green - Last Filed: 08/15/18 10:34> Patient Problems: Active and Suspected Problems Sepsis affecting skin (Acute) Rhabdomyolysis (Acute) Acute kidney injury superimposed on chronic kidney disease (Acute) Hyperkalemia (Acute) Subjective: Pt very confused this AM, not appropriately answering questions. Found aspirating laying flat. He cannot tell much about his hx. He knows he fell onto the floor and was unable to get up, unclear how long he was down before he was found. He is sore all over. He has chronic right sided weakness from stroke in 1999. He does not think he has any new onset of weakness. He has chronic LE lymphedema and follows the wound clinic here. - Physical Exam General: Alert, Cooperative, Confused HEENT: Atraumatic, PERRLA, EOMI, Normocephalic Neck: Supple, No JVD, Negative Carotid Bruits Lungs: Clear to auscultation, Normal air movement Cardiovascular: No murmurs, Irregular Rate Abdomen: Bowel Sounds Present, Soft, Non Tender Extremities: Capillary Refill Less than 3 Seconds, Edema Skin: Ulcer/ Wound Musculoskeletal: No Tenderness to Palpation of Joints or Extremities Neurological: Cranial nerves II-XII grossly intact Psych/Mental Status: Normal Affect, Appropriate Vital Signs Temp Pulse Resp BP Pulse Ox 98.1 F 70 18 172/77 H 99 08/15/18 06:15 08/15/18 07:11 08/15/18 06:15 08/15/18 06:15 08/15/18 06:35 Oxygen Delivery Method Room Air Weight: 164 lb 0.383 oz Body Mass Index (BMI) 24.2 Intake and Output for Last 24 Hours 08/13/18 08/14/18 08/15/18 23:59 23:59 23:59 Output Total 50 / 50 Balance -50 / -50 Laboratory Tests Past 24 Hrs 08/14/18 08/14/18 08/14/18 17:35 17:35 17:35 WBC RBC Hgb Hct MCV MCH MCHC RDW RDW Differential Plt Count MPV Immature Gran % (Auto) Neut % (Auto) Lymph % (Auto) [place] % (Auto) Eos % (Auto) Baso % (Auto) Absolute Neuts (auto) Absolute Lymphs (auto) Total Counted Differential Comment Platelet Estimate RBC Morphology Sodium Potassium Chloride Carbon Dioxide Anion Gap BUN Creatinine Estim Creat Clear Calc Est GFR (MDRD) Af Amer Est GFR (MDRD) Non-Af BUN/Creatinine Ratio Glucose Lactic Acid Calcium Ammonia Total Creatine Kinase Troponin I Urine Color Anjelica Urine Clarity Sl. Cloudy Urine pH 5.0 Ur Specific Ider 1.025 Urine Protein 100 H Urine Glucose (UA) Normal Urine Ketones 5 H Urine Occult Blood 150 H Urine Nitrite Positive H Urine Bilirubin 3 H Urine Urobilinogen 4 H Ur Leukocyte Esterase 25 H Urine RBC 5-10 SEEN Urine WBC 0-5 SEEN Ur Squamous Epith Cells 0-5 SEEN Amorphous Sediment 1+ URATE Urine Bacteria RARE Urine Mucus 0 SEEN Ur Random Sodium 55 Urine Creatinine 253.00 08/14/18 08/14/18 08/14/18 18:45 18:45 18:45 WBC 14.3 H RBC 4.74 Hgb 13.2 Hct 43.4 MCV 91.6 MCH 27.8 MCHC 30.4 L RDW 15.0 H RDW Differential 49.6 H Plt Count 228 MPV 11.3 Immature Gran % (Auto) 0.200 Neut % (Auto) 93.4 H Lymph % (Auto) 4.0 L [place] % (Auto) 2.4 Eos % (Auto) 0.0 Baso % (Auto) 0.0 Absolute Neuts (auto) 13.4 H Absolute Lymphs (auto) 0.58 L Total Counted Not Reportable Differential Comment Platelet Estimate A RBC Morphology NORM C+C Sodium 143 Potassium 6.3 H* Chloride 109 H Carbon Dioxide 22.0 Anion Gap 12 BUN 57 H Creatinine 2.92 H Estim Creat Clear Calc 19.84 Est GFR (MDRD) Af Amer 27 L Est GFR (MDRD) Non-Af 22 L BUN/Creatinine Ratio 19.5 Glucose 107 H Lactic Acid Calcium 8.6 Ammonia Total Creatine Kinase 2125 H Troponin I 0.230 H Urine Color Urine Clarity Urine pH Ur Specific Ider Urine Protein Urine Glucose (UA) Urine Ketones Urine Occult Blood Urine Nitrite Urine Bilirubin Urine Urobilinogen Ur Leukocyte Esterase Urine RBC Urine WBC Ur Squamous Epith Cells Amorphous Sediment Urine Bacteria Urine Mucus Ur Random Sodium Urine Creatinine 08/14/18 08/15/18 08/15/18 21:15 00:25 01:33 WBC RBC Hgb Hct MCV MCH MCHC RDW RDW Differential Plt Count MPV Immature Gran % (Auto) Neut % (Auto) Lymph % (Auto) [place] % (Auto) Eos % (Auto) Baso % (Auto) Absolute Neuts (auto) Absolute Lymphs (auto) Total Counted Differential Comment Platelet Estimate RBC Morphology Sodium 145 Potassium 5.1 Chloride 110 H Carbon Dioxide 24.0 Anion Gap 11 BUN 61 H Creatinine 3.20 H Estim Creat Clear Calc 18.10 Est GFR (MDRD) Af Amer 24 L Est GFR (MDRD) Non-Af 20 L BUN/Creatinine Ratio 19.1 Glucose 159 H Lactic Acid 2.1 H 2.3 H Calcium 8.3 L Ammonia Total Creatine Kinase Troponin I Urine Color Urine Clarity Urine pH Ur Specific Ider Urine Protein Urine Glucose (UA) Urine Ketones Urine Occult Blood Urine Nitrite Urine Bilirubin Urine Urobilinogen Ur Leukocyte Esterase Urine RBC Urine WBC Ur Squamous Epith Cells Amorphous Sediment Urine Bacteria Urine Mucus Ur Random Sodium Urine Creatinine 08/15/18 08/15/18 05:20 09:38 WBC RBC Hgb Hct MCV MCH MCHC RDW RDW Differential Plt Count MPV Immature Gran % (Auto) Neut % (Auto) Lymph % (Auto) [place] % (Auto) Eos % (Auto) Baso % (Auto) Absolute Neuts (auto) Absolute Lymphs (auto) Total Counted Differential Comment Platelet Estimate RBC Morphology Sodium 144 Potassium 5.1 Chloride 113 H Carbon Dioxide 22.0 Anion Gap 9 BUN 64 H Creatinine 3.18 H Estim Creat Clear Calc 18.22 Est GFR (MDRD) Af Amer 24 L Est GFR (MDRD) Non-Af 20 L BUN/Creatinine Ratio 20.1 H Glucose 122 H Lactic Acid Calcium 7.9 L Ammonia 18.0 Total Creatine Kinase 890 H Troponin I Urine Color Urine Clarity Urine pH Ur Specific Ider Urine Protein Urine Glucose (UA) Urine Ketones Urine Occult Blood Urine Nitrite Urine Bilirubin Urine Urobilinogen Ur Leukocyte Esterase Urine RBC Urine WBC Ur Squamous Epith Cells Amorphous Sediment Urine Bacteria Urine Mucus Ur Random Sodium Urine Creatinine Medical Necessity - Tobacco Use Smoking Status: Never smoker Assessment/Plan All Active Problems 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 BL LE cellulitis - complicated by chronic lymphedema. Did not meet sepsis criteria on admission (SIRS 1 of 2 only), however this is possibly masked as he is on lebatolol so will treat for possibly sepsis. He did have WBC elevation and lactic acidosis, however there are other etiologies to explain this. Hx multiple bacteria including MRSA and pseudomonas on cxs previously. Reculture wound and blood. Continue vanc and zosyn. Wound care consult. Possibly UTI as well + UA. Santizo in place. Pt is also aspirating. Afebrile. 2. JOSEF on CKD III 2/2 dehydration, rhabdo - not improved and oliguric. Nephrology consulted. He appears very dry. Bolus + increase IV fluid rate. Hyperkalemia resolved. 3. Acute rhabdo - fall + lying on floor. IV fluids. CK trending down. Check AM CMP. 4. Acute metabolic encephalopathy 2/2 sepsis, uremia - neuro consulted. Complicated by chronic right sided weakness 2/2 stroke. Severely elevated BP on admission. New aspiration/dysphagia. CT with remote infarct and chronic changes. Ammonia negative. 5. Witnessed aspiration - does not appear to have SOB or cough at this time. CXR with R pleural effusion and atelectasis. Speech therapy consulted. He states he does not have problems choking at home 6. Thrush - add nystatin if cleared by speech. 7. Indeterminate troponin - 2/2 CKD, rhabdo - relayed to cardiology per H&P and no further workup indicated per cardiology. 8. Chronic lymphedema complicating above. Continue wound care and follow up with [facility] [place]. 9. BPH - currently with santizo. 10. Hx CVA - right sided deficits. on asa, statin DVT ppx: heparin DC planning: PTOT, likely needs SNF. This patient was seen by Lion Green PA-C under the supervision of Doctor Vela. <Pablito Vela - Last Filed: 08/15/18 14:04> Subjective: The patient was seen and examined along with Lion BARONE and the nursing staff. Patient was found confused, disoriented to time and place. He was lethargic and very dehydrated. Skin and oral mucosa are very dry and parched. IV fluid normal saline 1 L bolus ordered Patient had just 50 mL of urine after midnight as per the nurse. Santizo catheter dark urine. Urobag empty. bus monitor shows normal sinus rhythm with PVCs and couplets. - Physical Exam General: Cooperative, Confused, Disoriented - To time and place, - Oral: Dry Mucosa, - - Thick white crust present on oropharyngeal mucosa. Neck: Supple, No JVD, Negative Carotid Bruits Lungs: No rhonchi, No wheeze, No rales, Diminished Cardiovascular: No murmurs, Irregular Rate Abdomen: Bowel Sounds Present, Soft, Non Tender Extremities: Capillary Refill Less than 3 Seconds, Edema - Bilateral lower leg edema seems chronic venous edema Skin: Ulcer/ Wound - Multiple superficial skin ulcer with excoriation and serous clear drainage. Large superficial skin erosion/ulcer on the posterior aspect of left leg Vital Signs Temp Pulse Resp BP Pulse Ox 98.1 F 76 18 172/77 H 99 08/15/18 06:15 08/15/18 11:18 08/15/18 06:15 08/15/18 06:15 08/15/18 06:35 Oxygen Delivery Method Room Air Weight: 164 lb 0.383 oz Body Mass Index (BMI) 24.2 Intake and Output for Last 24 Hours 08/13/18 08/14/18 08/15/18 23:59 23:59 23:59 Intake Total 1872 / 1872 Output Total 50 / 50 Balance 1822 / 1822 Microbiology Past 72 Hours 08/14/18 20:05 Gram Stain - Final Wound - Left Foot Wound Culture - Preliminary Gram negative collin Laboratory Tests Past 24 Hrs 08/14/18 08/14/18 08/14/18 17:35 17:35 17:35 WBC RBC Hgb Hct MCV MCH MCHC RDW RDW Differential Plt Count MPV Immature Gran % (Auto) Neut % (Auto) Lymph % (Auto) [place] % (Auto) Eos % (Auto) Baso % (Auto) Absolute Neuts (auto) Absolute Lymphs (auto) Total Counted Differential Comment Platelet Estimate RBC Morphology Sodium Potassium Chloride Carbon Dioxide Anion Gap BUN Creatinine Estim Creat Clear Calc Est GFR (MDRD) Af Amer Est GFR (MDRD) Non-Af BUN/Creatinine Ratio Glucose Lactic Acid Calcium Ammonia Total Creatine Kinase Troponin I Urine Color Anjelica Urine Clarity Sl. Cloudy Urine pH 5.0 Ur Specific Ider 1.025 Urine Protein 100 H Urine Glucose (UA) Normal Urine Ketones 5 H Urine Occult Blood 150 H Urine Nitrite Positive H Urine Bilirubin 3 H Urine Urobilinogen 4 H Ur Leukocyte Esterase 25 H Urine RBC 5-10 SEEN Urine WBC 0-5 SEEN Ur Squamous Epith Cells 0-5 SEEN Amorphous Sediment 1+ URATE Urine Bacteria RARE Urine Mucus 0 SEEN Ur Random Sodium 55 Urine Creatinine 253.00 S.aureus Protein A PCR MRSA (PCR) 08/14/18 08/14/18 08/14/18 18:45 18:45 18:45 WBC 14.3 H RBC 4.74 Hgb 13.2 Hct 43.4 MCV 91.6 MCH 27.8 MCHC 30.4 L RDW 15.0 H RDW Differential 49.6 H Plt Count 228 MPV 11.3 Immature Gran % (Auto) 0.200 Neut % (Auto) 93.4 H Lymph % (Auto) 4.0 L [place] % (Auto) 2.4 Eos % (Auto) 0.0 Baso % (Auto) 0.0 Absolute Neuts (auto) 13.4 H Absolute Lymphs (auto) 0.58 L Total Counted Not Reportable Differential Comment Platelet Estimate A RBC Morphology NORM C+C Sodium 143 Potassium 6.3 H* Chloride 109 H Carbon Dioxide 22.0 Anion Gap 12 BUN 57 H Creatinine 2.92 H Estim Creat Clear Calc 19.84 Est GFR (MDRD) Af Amer 27 L Est GFR (MDRD) Non-Af 22 L BUN/Creatinine Ratio 19.5 Glucose 107 H Lactic Acid Calcium 8.6 Ammonia Total Creatine Kinase 2125 H Troponin I 0.230 H Urine Color Urine Clarity Urine pH Ur Specific Ider Urine Protein Urine Glucose (UA) Urine Ketones Urine Occult Blood Urine Nitrite Urine Bilirubin Urine Urobilinogen Ur Leukocyte Esterase Urine RBC Urine WBC Ur Squamous Epith Cells Amorphous Sediment Urine Bacteria Urine Mucus Ur Random Sodium Urine Creatinine S.aureus Protein A PCR MRSA (PCR) 08/14/18 08/15/18 08/15/18 21:15 00:25 01:33 WBC RBC Hgb Hct MCV MCH MCHC RDW RDW Differential Plt Count MPV Immature Gran % (Auto) Neut % (Auto) Lymph % (Auto) [place] % (Auto) Eos % (Auto) Baso % (Auto) Absolute Neuts (auto) Absolute Lymphs (auto) Total Counted Differential Comment Platelet Estimate RBC Morphology Sodium 145 Potassium 5.1 Chloride 110 H Carbon Dioxide 24.0 Anion Gap 11 BUN 61 H Creatinine 3.20 H Estim Creat Clear Calc 18.10 Est GFR (MDRD) Af Amer 24 L Est GFR (MDRD) Non-Af 20 L BUN/Creatinine Ratio 19.1 Glucose 159 H Lactic Acid 2.1 H 2.3 H Calcium 8.3 L Ammonia Total Creatine Kinase Troponin I Urine Color Urine Clarity Urine pH Ur Specific Ider Urine Protein Urine Glucose (UA) Urine Ketones Urine Occult Blood Urine Nitrite Urine Bilirubin Urine Urobilinogen Ur Leukocyte Esterase Urine RBC Urine WBC Ur Squamous Epith Cells Amorphous Sediment Urine Bacteria Urine Mucus Ur Random Sodium Urine Creatinine S.aureus Protein A PCR MRSA (PCR) 08/15/18 08/15/18 08/15/18 05:20 09:38 10:45 WBC RBC Hgb Hct MCV MCH MCHC RDW RDW Differential Plt Count MPV Immature Gran % (Auto) Neut % (Auto) Lymph % (Auto) [place] % (Auto) Eos % (Auto) Baso % (Auto) Absolute Neuts (auto) Absolute Lymphs (auto) Total Counted Differential Comment Platelet Estimate RBC Morphology Sodium 144 Potassium 5.1 Chloride 113 H Carbon Dioxide 22.0 Anion Gap 9 BUN 64 H Creatinine 3.18 H Estim Creat Clear Calc 18.22 Est GFR (MDRD) Af Amer 24 L Est GFR (MDRD) Non-Af 20 L BUN/Creatinine Ratio 20.1 H Glucose 122 H Lactic Acid Calcium 7.9 L Ammonia 18.0 Total Creatine Kinase 890 H Troponin I Urine Color Urine Clarity Urine pH Ur Specific Ider Urine Protein Urine Glucose (UA) Urine Ketones Urine Occult Blood Urine Nitrite Urine Bilirubin Urine Urobilinogen Ur Leukocyte Esterase Urine RBC Urine WBC Ur Squamous Epith Cells Amorphous Sediment Urine Bacteria Urine Mucus Ur Random Sodium Urine Creatinine S.aureus Protein A PCR POSITIVE H MRSA (PCR) Negative Assessment/Plan This patient was seen in conjunction with Lion BARONE. I have independently interviewed and examined the patient and reviewed pertinent history, examination findings, laboratory and plan of management. I have reviewed the note and agree with the documented findings with the few additional points. In brief, patient is admitted to telemetry after he was found prolonged laying on the floor, confused and disoriented state and on further assessment found to be acute kidney injury with oliguria on baseline CKD stage III secondary to dehydration/prerenal along with suspicion of ATN secondary to rhabdomyolysis CK 2125, hyperkalemia, K6.3, sepsis secondary to bilateral lower extremity cellulitis and possible UTI with lactic acid 2.3. Patient is on empirically IV vancomycin and Zosyn. MRSA nasal screen is negative. UA positive of nitrite and LE, WBC 0-5, RBC 5-10 suggestive of possible UTI. Rv Technician consult reviewed and appreciated. Discussed with [employer] supervisor. Follow culture reports. Patient also has history of stroke with right-sided weakness in 1999. Patient is still has weakness on right upper and lower extremity. Neurologist was consulted to further evaluate for concern of new stroke on the top of old stroke. Neurology consult appreciated and advised to repeat CT head tomorrow. PT and OT to further evaluate when patient is more stable. I have discussed my assessment with Lion BARONE and orders have been reviewed. Microbiology Past 72 Hours 08/14/18 20:05 Wound - Left Foot Gram Stain - Final 08/14/18 20:05 Wound - Left Foot Wound Culture - Preliminary Gram negative collin Laboratory Results DRD) Non-Af 22 L, BUN/Creatinine Ratio 19.5, Glucose 107 H, Calcium 8.6, Troponin I 0.230 H 08/14/18 18:45: Total Creatine Kinase 2125 H 08/14/18 21:15: Lactic Acid 2.1 H 08/15/18 00:25: Sodium 145, Potassium 5.1, Chloride 110 H, Carbon Dioxide 24.0, Anion Gap 11, BUN 61 H, Creatinine 3.20 H, Estim Creat Clear Calc 18.10, Est GFR (MDRD) Af Amer 24 L, Est GFR (MDRD) Non-Af 20 L, BUN/Creatinine Ratio 19.1, Glucose 159 H, Calcium 8.3 L 08/15/18 01:33: Lactic Acid 2.3 H 08/15/18 05:20: Sodium 144, Potassium 5.1, Chloride 113 H, Carbon Dioxide 22.0, Anion Gap 9, BUN 64 H, Creatinine 3.18 H, Estim Creat Clear Calc 18.22, Est GFR (MDRD) Af Amer 24 L, Est GFR (MDRD) Non-Af 20 L, BUN/Creatinine Ratio 20.1 H, Glucose 122 H, Calcium 7.9 L, Total Creatine Kinase 890 H 08/15/18 09:38: Ammonia 18.0 08/15/18 10:45: S.aureus Protein A PCR POSITIVE H, MRSA (PCR) Negative Clinical Impression(s) from Imaging Studies Brain CT 08/14/18 18:52 IMPRESSION: 1. Remote left MCA distribution infarct. 2. Chronic involutional changes without acute intracranial or calvarial abnormality. 3. Soft tissue density overlying the right parietal region suggesting subcutaneous hematoma. Cervical Spine CT 08/14/18 18:53 IMPRESSION: Degenerative changes of the cervical spine without acute fracture or subluxation. Lumbar Spine X-Ray 08/14/18 18:53 IMPRESSION: Degenerative changes of the lumbar spine is straightened lordosis. Chest X-Ray 08/14/18 20:25 IMPRESSION: Enlarging right pleural effusion and atelectasis on compared to the prior study. Code Visit Inpatient E&M: 82678 Subs Hosp L3
--- NOTE | 2018-08-15 10:38 | CASEMGMT ---
DAVID met with patient, his daughter, and grandson. Introduced self and role at [facility]. Patient talked a lot, with some statements making sense and others not as much. He talked a lot about the wound center and his daughter in law who is a Nurse Practitioner. Patient does not feel he is confused from a Stroke, he feels it is because he fell and people are asking him too many questions. He said if his son or daughter would have shown up they could have helped him, but they didn't show up. Patient said too many people are coming in and asking him too many questions confusing him. DAVID then redirected patient and told him SW has some questions to ask, but since he feels too many questions are being asked SW can ask his daughter. He said, She will mess it up. SW told him he will be sitting right here and he can correct her if wrong. Patient lives in [facility] level home where he spends most of his time on the first floor. He has been independent. He manages his own meds, cooks, and drives. He uses [facility], but her said there is some problem with is insurance and [facility]. He has a lot of equipment from when his was alive. He has a walker, cane, shower chair, and grab bars. Confirmed patient's children's addresses and phone numbers. daughter: Ernestine Gr: [address] phone number is [phone] and patient's son lives about 5 minutes away from him here in [place]. Patient's daughter said they have been working on her son moving in with patient so he is not alone. DAVID told them DAVID and HAL LEDBETTER will follow along to assist with any d/c planning needs. Lorena LEWIS MSW
[2018-08-15] MEDS: Allopurinol 300 MG Tablet PO (11:04)
[2018-08-15] MEDS: Aspirin E.C. 81 MG Tablet PO (11:04)
[2018-08-15] MEDS: Labetalol 200 MG Tablet PO ×2 (11:04→22:55)
[2018-08-15] MEDS: Finasteride 5 MG Tablet PO (11:09)
--- NOTE | 2018-08-15 11:36 | CON.PCM_ITS ---
Reason for Consult Date of Consultation: 08/15/18 Reason for Consultation: confusion History of Present Illness: The patient is a 83 year old M right handed male who was found on the floor, couldnt get up, and was brought to er. family states he was on the floor all day. lives alone, but family member planning to move in. normally independent, drives. 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 initially his cva apparently caused right sided weakness Past Medical History Past Medical History (Chronic Problems): Chronic Problems Cellulitis (Chronic) Lymphedema of lower extremity (Chronic) Nephrolithiasis (Chronic) Gout (Chronic) CKD (chronic kidney disease), stage III (Chronic) BPH (benign prostatic hyperplasia) (Chronic) Benign hypertension (Chronic) Anemia (Chronic) Chronic renal insufficiency, stage III (moderate) (Chronic) Nonstaphylococcal scalded skin syndrome (Chronic) Arthritis (Chronic) Allergies No Known Allergies Allergy (Verified 04/13/17 14:20) Home Medications: Ambulatory Orders Medication Instructions Recorded Allopurinol 300 mg PO DAILY 10/10/16 Cholecalciferol (Vitamin D3) 50,000 unit PO BURGOS 10/10/16 [Vitamin D3] Labetalol [Trandate (Beta Lily)] 200 mg PO BID 10/10/16 Pravastatin [Pravachol] 40 mg PO QHS 10/10/16 Acetaminophen [Tylenol Tablet] 650 mg PO Q6H PRN PRN tablet 04/15/17 Finasteride [Proscar] 5 mg PO DAILY #30 tablet 04/15/17 Aspirin E.C. [Ecotrin] 81 mg PO DAILY 08/14/18 Surgical History: - - Bilateral carotid endarectomy Lives: Alone - Per family grandson will go and live with patient after discharge Smoking Status: Never smoker Alcohol: None - *Family History Paternal Family History: Family History (Last Reviewed 08/15/18 @ 11:35 by Bernardino Drake MD) Mother Hyperthyroidism Father Diabetes Aortic aneurysm rupture History Items: Diabetes Maternal Family History: Family History (Last Reviewed 08/15/18 @ 11:35 by Bernardino Drake MD) Mother Hyperthyroidism Father Diabetes Aortic aneurysm rupture History Items: Heart Disease Review of Systems Constitutional: Denies: Chills, Fever, Weight Change HEENT: Denies: Head Aches, Sinus Congestion, Sinus Drainage Cardiovascular: Denies: Chest Pain, Palpitations Respiratory: Denies: Cough, Shortness of breath at rest, Sputum production Gastrointestinal: Denies: Abdominal Pain, Nausea, Vomiting Genitourinary: Denies: Dysuria Musculoskeletal: Denies: Joint Pain, Joint Tenderness Skin: Denies: Rash, Wounds Neurological: Denies: Numbness, Tingling, Focal weakness Psychiatric: Denies: Anxiety, Depression, Homicidal Ideations, Suicidal Ideations Hematologic/ Lymphatic: Denies: Easy Bruising, Easy Bleeding Patient Problems: Active and Suspected Problems Sepsis affecting skin (Acute) Rhabdomyolysis (Acute) Acute kidney injury superimposed on chronic kidney disease (Acute) Hyperkalemia (Acute) - Physical Exam General: Alert, Oriented x3, Cooperative, No apparent distress Neurological: Cranial nerves II-XII grossly intact, Deep Tendon Reflexes 2+/4 and Symmetrical, - - mild right hemiparesis residual Vital Signs Temp Pulse Resp BP Pulse Ox 36.7 C 76 18 172/77 H 99 08/15/18 06:15 08/15/18 11:18 08/15/18 06:15 08/15/18 06:15 08/15/18 06:35 Oxygen Delivery Method Room Air Weight: 74.4 kg Body Mass Index (BMI) 24.2 Intake and Output for Last 24 Hours 08/13/18 08/14/18 08/15/18 23:59 23:59 23:59 Intake Total 1871 187 Output Total 50 / 50 Balance 182 / 182 Laboratory Tests Past 24 Hrs 08/14/18 08/14/18 08/14/18 17:35 17:35 17:35 WBC RBC Hgb Hct MCV MCH MCHC RDW RDW Differential Plt Count MPV Immature Gran % (Auto) Neut % (Auto) Lymph % (Auto) [place] % (Auto) Eos % (Auto) Baso % (Auto) Absolute Neuts (auto) Absolute Lymphs (auto) Total Counted Differential Comment Platelet Estimate RBC Morphology Sodium Potassium Chloride Carbon Dioxide Anion Gap BUN Creatinine Estim Creat Clear Calc Est GFR (MDRD) Af Amer Est GFR (MDRD) Non-Af BUN/Creatinine Ratio Glucose Lactic Acid Calcium Ammonia Total Creatine Kinase Troponin I Urine Color Anjelica Urine Clarity Sl. Cloudy Urine pH 5.0 Ur Specific [place] 1.025 Urine Protein 100 H Urine Glucose (UA) Normal Urine Ketones 5 H Urine Occult Blood 150 H Urine Nitrite Positive H Urine Bilirubin 3 H Urine Urobilinogen 4 H Ur Leukocyte Esterase 25 H Urine RBC 5-10 SEEN Urine WBC 0-5 SEEN Ur Squamous Epith Cells 0-5 SEEN Amorphous Sediment 1+ URATE Urine Bacteria RARE Urine Mucus 0 SEEN Ur Random Sodium 55 Urine Creatinine 253.00 S.aureus Protein A PCR MRSA (PCR) 08/14/18 08/14/18 08/14/18 18:45 18:45 18:45 WBC 14.3 H RBC 4.74 Hgb 13.2 Hct 43.4 MCV 91.6 MCH 27.8 MCHC 30.4 L RDW 15.0 H RDW Differential 49.6 H Plt Count 228 MPV 11.3 Immature Gran % (Auto) 0.200 Neut % (Auto) 93.4 H Lymph % (Auto) 4.0 L [place] % (Auto) 2.4 Eos % (Auto) 0.0 Baso % (Auto) 0.0 Absolute Neuts (auto) 13.4 H Absolute Lymphs (auto) 0.58 L Total Counted Not Reportable Differential Comment Platelet Estimate A RBC Morphology NORM C+C Sodium 143 Potassium 6.3 H* Chloride 109 H Carbon Dioxide 22.0 Anion Gap 12 BUN 57 H Creatinine 2.92 H Estim Creat Clear Calc 19.84 Est GFR (MDRD) Af Amer 27 L Est GFR (MDRD) Non-Af 22 L BUN/Creatinine Ratio 19.5 Glucose 107 H Lactic Acid Calcium 8.6 Ammonia Total Creatine Kinase 2125 H Troponin I 0.230 H Urine Color Urine Clarity Urine pH Ur Specific [place] Urine Protein Urine Glucose (UA) Urine Ketones Urine Occult Blood Urine Nitrite Urine Bilirubin Urine Urobilinogen Ur Leukocyte Esterase Urine RBC Urine WBC Ur Squamous Epith Cells Amorphous Sediment Urine Bacteria Urine Mucus Ur Random Sodium Urine Creatinine S.aureus Protein A PCR MRSA (PCR) 08/14/18 08/15/18 08/15/18 21:15 00:25 01:33 WBC RBC Hgb Hct MCV MCH MCHC RDW RDW Differential Plt Count MPV Immature Gran % (Auto) Neut % (Auto) Lymph % (Auto) [place] % (Auto) Eos % (Auto) Baso % (Auto) Absolute Neuts (auto) Absolute Lymphs (auto) Total Counted Differential Comment Platelet Estimate RBC Morphology Sodium 145 Potassium 5.1 Chloride 110 H Carbon Dioxide 24.0 Anion Gap 11 BUN 61 H Creatinine 3.20 H Estim Creat Clear Calc 18.10 Est GFR (MDRD) Af Amer 24 L Est GFR (MDRD) Non-Af 20 L BUN/Creatinine Ratio 19.1 Glucose 159 H Lactic Acid 2.1 H 2.3 H Calcium 8.3 L Ammonia Total Creatine Kinase Troponin I Urine Color Urine Clarity Urine pH Ur Specific [place] Urine Protein Urine Glucose (UA) Urine Ketones Urine Occult Blood Urine Nitrite Urine Bilirubin Urine Urobilinogen Ur Leukocyte Esterase Urine RBC Urine WBC Ur Squamous Epith Cells Amorphous Sediment Urine Bacteria Urine Mucus Ur Random Sodium Urine Creatinine S.aureus Protein A PCR MRSA (PCR) 08/15/18 08/15/18 08/15/18 05:20 09:38 10:45 WBC RBC Hgb Hct MCV MCH MCHC RDW RDW Differential Plt Count MPV Immature Gran % (Auto) Neut % (Auto) Lymph % (Auto) [place] % (Auto) Eos % (Auto) Baso % (Auto) Absolute Neuts (auto) Absolute Lymphs (auto) Total Counted Differential Comment Platelet Estimate RBC Morphology Sodium 144 Potassium 5.1 Chloride 113 H Carbon Dioxide 22.0 Anion Gap 9 BUN 64 H Creatinine 3.18 H Estim Creat Clear Calc 18.22 Est GFR (MDRD) Af Amer 24 L Est GFR (MDRD) Non-Af 20 L BUN/Creatinine Ratio 20.1 H Glucose 122 H Lactic Acid Calcium 7.9 L Ammonia 18.0 Total Creatine Kinase 890 H Troponin I Urine Color Urine Clarity Urine pH Ur Specific [place] Urine Protein Urine Glucose (UA) Urine Ketones Urine Occult Blood Urine Nitrite Urine Bilirubin Urine Urobilinogen Ur Leukocyte Esterase Urine RBC Urine WBC Ur Squamous Epith Cells Amorphous Sediment Urine Bacteria Urine Mucus Ur Random Sodium Urine Creatinine S.aureus Protein A PCR Pending MRSA (PCR) Pending ct reviewed, shows old left mca infarct Assessment/Plan All Active Problems 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 no mri due to claustrophobia. appears baseline/improved now per family repeat ct therapies continue medical management.
--- NOTE | 2018-08-15 12:03 | NURSING ---
wound photo: right lateral ankle
--- NOTE | 2018-08-15 12:04 | NURSING ---
wound photo: right medial ankle
--- NOTE | 2018-08-15 12:04 | NURSING ---
wound photo: left lateral foot/ankle
--- NOTE | 2018-08-15 12:05 | NURSING ---
wound photo: left posterior lower leg
--- NOTE | 2018-08-15 12:05 | NURSING ---
wound photo: left medial ankle
[2018-08-15 13:24] LABS: M R Staph aureus DNA By PCR Negative (Negative); Probe Check PASS; Specimen Processing Control PASS; Staph aureus DNA By PCR POSITIVE (Negative)
[2018-08-15] MEDS: hydrALAZINE 50 MG Tablet PO ×2 (13:59→22:38)
[2018-08-15] MEDS: Pravastatin 40 MG Tablet PO (22:45)
[2018-08-16] VITALS (16 sets, daily range): BP systolic 128–155; BP diastolic 52–83; PULSE 57–98; RESP 16–20; TEMP 36.8–36.9; O2SAT 95–99
[2018-08-16] MEDS: 0.9% Normal Saline 1,000 ML 125 ML IV ×2 (02:08→14:23)
[2018-08-16] MEDS: hydrALAZINE 50 MG Tablet PO ×3 (04:58→22:21)
--- NOTE | 2018-08-16 05:55 | CT_ITS ---
STUDY: CT BRAIN WITHOUT CONTRAST REASON FOR EXAM: Male, 83 years old. Fall. Old stroke. Head trauma. RADIATION DOSAGE (If Supplied By Facility): CTDIvol = ( 44.99 ) mGy, DLP = ( 1625.96 ) mGycm TECHNIQUE: Transaxial CT imaging of the brain was performed without administration of intravenous contrast material. # of Images: 246 Individualized dose optimization techniques were used for this CT. COMPARISON: None. FINDINGS: There is a soft tissue mass over the right temporal region above the right ear. Soft tissues are otherwise unremarkable. Normal calvarium. There is mild cerebral atrophy with widening of the extra-axial spaces and ventricular dilatation. There is increasing encephalomalacia in the left parietal lobe suggesting remote left MCA distribution infarct. Normal basal ganglia and thalami. Normal brainstem. Normal cerebellum. There is no intracranial hemorrhage. There are no findings of an acute ischemic infarction. Normal visualized paranasal sinuses. CT/Brain/Head without Contrast IMPRESSION: 1. Remote left MCA distribution infarct. 2. Chronic involutional changes without acute intracranial or calvarial abnormality. 3. Soft tissue density overlying the right temporal region suggesting subcutaneous hematoma. Electronically Signed: Boris Valderrama MD at 9:33 EDT Tel , Service support ,
[2018-08-16 07:44] LABS: Absolute Lymphocyte Count 0.52 X10^3/ul (0.83-4.51); Absolute Neutrophil Count 5.5 X10^3/uL (2.0-7.7); Basophil# 0.01 X10^3/uL; Basophil% 0.2 % (0-1); Eosinophil# 0.05 X10^3/uL; Eosinophils% 0.8 % (0-5); Hematocrit 31.7 % (40-54); Hemoglobin 9.5 g/dl (13.0-16.5); Lymphocyte # 0.52 X10^3/ul (4.0); Lymphocyte % 8.2 % (19-41); Mean Corpuscular Volume 93.5 fL (80-94); Mean Platelet Vol. 10.8 fl (6.2-12.0); Monocyte# 0.34 X10^3/uL; Monocyte% 5.3 % (0-10); Neutrophil # 5.45 X10^3/uL (2.7-7.7); Neutrophil % 85.3 % (47-70); Platelet Count 166 K/mm3 (150-450); RBC Distribution Width CV 14.8 % (11.6-14.6); RBC Distribution Width SD 48.2 fl (35.1-43.9); Red Blood Count 3.39 M/mm3 (4.6-6.2); White Blood Count 6.4 K/mm3 (4.4-11.0)
[2018-08-16 07:46] LABS: Differential Indicated SCAN CRITERIA MET; POSITIVE COUNT NO; POSITIVE DIFFERENTIAL YES; POSITIVE MORPHOLOGY NO
[2018-08-16 07:50] LABS: ALB/GLOB Ratio 0.7 RATIO (0.9-2.4); AST(SGOT) 55 U/L (15-37); Alanine Aminotransfer ALT/SGPT 27 U/L (16-61); Albumin, Serum 1.8 g/dL (3.2-5.0); Alkaline Phosphatase 69 U/L (45-117); Anion Gap 7 (5-15); BUN 66 mg/dL (7-18); BUN/Creat Ratio 18.8 RATIO (10-20); CPK Total, Creatine Kinase 484 U/L (39-308); Calcium,Total 7.2 mg/dL (8.5-10.1); Chloride 117 mmol/L (98-107); Creatinine, Serum 3.52 mg/dL (0.70-1.30); EST Glomerular Filtration Rate 18 mL/min (>60); Est Glom Filt Rate - Afr Amer 22 mL/min (>60); Estimated Creatinine Clearance 16.46 ml/min; Globulin 2.5 g/dL (2.2-4.2); Glucose 122 mg/dL (74-106); Potassium 4.2 mmol/L (3.5-5.1); Protein, Total 4.3 g/dL (6.4-8.2); Sodium Level 149 mmol/L (136-145)
[2018-08-16] MEDS: Piperacil/Tazobactam 3.375 GM/50 ML ML IV ×2 (09:51→22:41)
[2018-08-16] MEDS: Aspirin E.C. 81 MG Tablet PO (09:58)
[2018-08-16] MEDS: Finasteride 5 MG Tablet PO (09:58)
[2018-08-16] MEDS: Allopurinol 300 MG Tablet PO (09:58)
[2018-08-16] MEDS: Heparin Injection (Vial) 5,000 UNIT/ML VIAL 5000 UNIT SC ×2 (09:59→22:23)
--- NOTE | 2018-08-16 13:27 | CASEMGMT ---
Addendum entered by Lakshmi Del Valle 08/16/18 16:14: Physician and nursing expressing concerns about pt returning home at this time due to amount of care needed with therapy. SW attempted to call pt son multiple times with no answer and VM full. Call to pt dgt and SW re-explained concerns with plan for pt to return home at this time due to limited movement. Pt dgt states it is up to pt and brother, she does not have a say. SW met with pt and again expressed concerns with returning home at this time and explained that short term stay in SNF would be beneficial for rehab prior to returning home. SW explained Medicare benefit and coverage. Pt continues to deny to go to SNF at this time. He states his grandson will be with him providing 24 hour care and his son lives very close and can assist if needed. SW will remain available to assist with SNF placement if pt should change his mind. CRISTAL Rouse Original Note: Social Work Met with pt, son and daughter in room and reviewed how pt did with therapy and d/c plan. Pt and children state pt plans to return home at this time and that pt grandson who is an [employer] will be moving in with pt and providing 24 hour care. Pt is agreeable to home health services and would like to use [facility]. Pt will benefit from RN, PT, OT, AREA MANAGER. Pt inquired about medical alert. SW provided written and verbal information on the medical alert system. Pt son plans to assist pt in setting this up. Referral made to Ernestine in [facility]. Plan: home with 24 hour care and [facility] RN, PT, OT, AREA MANAGER CRISTAL Rouse
[2018-08-16] MEDS: Labetalol 200 MG Tablet PO ×2 (14:25→22:21)
--- NOTE | 2018-08-16 16:33 | PCM.PN.REN ---
Patient Problems: Active and Suspected Problems Sepsis affecting skin (Acute) Rhabdomyolysis (Acute) Acute kidney injury superimposed on chronic kidney disease (Acute) Hyperkalemia (Acute) Subjective: No acute events . Denied nausea /vomiting No SOB. On IVF Ns at 125 cc/hour. UOP > 500 Cr continues to rise - Physical Exam General: Alert, No apparent distress, Well nourished HEENT: PERRLA, EOMI Oral: Dry Mucosa Neck: Supple, No JVD Lungs: Clear to auscultation, Normal air movement, No rhonchi, No wheeze Cardiovascular: Regular rate, Regular Rhythm, Normal S1, Normal S2 Abdomen: Bowel Sounds Present, Soft, Non Tender Extremities: No clubbing, No cyanosis, - - +1 edema of both feet. Both legs are wrapped up Skin: No rashes Musculoskeletal: No Tenderness to Palpation of Joints or Extremities Lymphatic: No Cervical, Supraclavicular, or Inguinal Adenopathy Psych/Mental Status: Appropriate Vital Signs Temp Pulse Resp BP Pulse Ox 98.3 F 70 16 155/65 H 99 08/16/18 14:00 08/16/18 14:22 08/16/18 14:00 08/16/18 14:22 08/16/18 14:00 Oxygen Delivery Method Room Air Weight: 74.4 kg Body Mass Index (BMI) 24.2 Intake and Output for Last 24 Hours 08/14/18 08/15/18 08/16/18 23:59 23:59 23:59 Intake Total 4099 / 4099 1558 / 1558 Output Total 200 / 200 450 / 450 Balance 3899 / 3899 1108 / 1108 Microbiology Past 72 Hours 08/15/18 14:58 Urine Culture - Preliminary Urine, Catheterized Culture exhibits no growth. 08/14/18 20:05 Gram Stain - Final Wound - Left Foot Wound Culture - Preliminary GNR Poss Pseudomonas sp Gram positive organism Laboratory Tests Past 24 Hrs 08/16/18 08/16/18 07:08 07:08 WBC 6.4 RBC 3.39 L Hgb 9.5 L Hct 31.7 L MCV 93.5 MCH 28.0 MCHC 30.0 L RDW 14.8 H RDW Differential 48.2 H Plt Count 166 MPV 10.8 Immature Gran % (Auto) 0.200 Neut % (Auto) 85.3 H Lymph % (Auto) 8.2 L [place] % (Auto) 5.3 Eos % (Auto) 0.8 Baso % (Auto) 0.2 Absolute Neuts (auto) 5.5 Absolute Lymphs (auto) 0.52 L Total Counted Not Reportable Differential Comment COMMENT Sodium 149 H Potassium 4.2 Chloride 117 H Carbon Dioxide 25.0 Anion Gap 7 BUN 66 H Creatinine 3.52 H Estim Creat Clear Calc 16.46 Est GFR (MDRD) Af Amer 22 L Est GFR (MDRD) Non-Af 18 L BUN/Creatinine Ratio 18.8 Glucose 122 H Calcium 7.2 L Total Bilirubin 0.50 AST 55 H ALT 27 Alkaline Phosphatase 69 Total Creatine Kinase 484 H Total Protein 4.3 L Albumin 1.8 L Globulin 2.5 Albumin/Globulin Ratio 0.7 L Medical Necessity - Tobacco Use Smoking Status: Never smoker Assessment/Plan All Active Problems 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 Baseline creatinine seems around 1.4-1.8 mg deciliter. UA showed 100 protein, occult blood 50, nitrite positive, RBCs 5-10 white cell 0-5. FeNa is 0.4% Acute kidney injury related to prerenal from dehydration due to poor oral intake. Prerenal could have progressed to ATN . Cr is still worsening despite being on IVF I will continue IVF at 125 cc/hour. I will repeat urine indices Renal US is negative for hydronephrosis. Continue CD vis santizo I doubt another etiology of acute kidney injury for now. Please keep mean arterial pressure more than 65. Avoid PATITO inhibitor/ARB for now. No indication for renal replacement therapy. Check kidney function in the morning. 2-hyperkalemia: Related to acute kidney injury. Treated medically with D50/insulin. resolved. Check potassium level in a.m. 3- Hypernatremia . related to IV Ns. I will change IVF to 0.45% NS 4-sepsis due to cellulitis/UTI. On Zosyn which is appropriately dosed for the current kidney function. Please monitor vancomycin trough level to keep it between 15 and 20. 5-hypertension: Blood pressure is acceptable. Continue the current dose of hydralazine and labetalol Please avoid PATITO inhibitor/ARB and diuretics for now. 6-BPH: Continue finasteride and Flomax. Continuos urine drainage via Santizo catheter The plan of care with Dr. Oralia Meyer MD [phone]
[2018-08-16] MEDS: 0.45% Normal Saline 1,000 ML 125 ML IV (17:03)
--- NOTE | 2018-08-16 17:21 | PCM.PN.HOSP ---
Patient Problems: Active and Suspected Problems Sepsis affecting skin (Acute) Rhabdomyolysis (Acute) Acute kidney injury superimposed on chronic kidney disease (Acute) Hyperkalemia (Acute) Subjective: Feels better today, and wants to go home even though he needs two people to move him Vitals/I&O's: Vital Signs Temp Pulse Resp BP Pulse Ox 98.3 F 61 16 155/65 H 99 08/16/18 14:00 08/16/18 15:00 08/16/18 14:00 08/16/18 14:22 08/16/18 14:00 Oxygen Delivery Method Room Air Weight: 164 lb 0.383 oz Body Mass Index (BMI) 24.2 Intake and Output for Last 24 Hours 08/14/18 08/15/18 08/16/18 23:59 23:59 23:59 Intake Total 4099 / 4099 1558 / 1558 Output Total 200 / 200 450 / 450 Balance 3899 / 3899 1108 / 1108 General: Alert, Oriented x3, Cooperative, No apparent distress HEENT: Atraumatic, EOMI, Normocephalic Oral: Moist Mucosa Neck: Supple, No JVD Lungs: Clear to auscultation, Normal air movement, No rhonchi, No wheeze, No rales Cardiovascular: Regular rate, Regular Rhythm, Normal S1, Normal S2, No murmurs Abdomen: Soft, Non Tender, Non-Distended, No Hepato-splenomegaly Extremities: No edema, Capillary Refill Less than 3 Seconds Skin: - - Dressings inplace Neurological: Neuro grossly intact, Sensory exam intact to light touch and pain Psych/Mental Status: Normal Affect, Appropriate Microbiology Past 72 Hours 08/15/18 14:58 Urine, Catheterized Urine Culture - Preliminary Culture exhibits no growth. 08/14/18 20:05 Wound - Left Foot Gram Stain - Final 08/14/18 20:05 Wound - Left Foot Wound Culture - Preliminary GNR Poss Pseudomonas sp Gram positive organism Laboratory Results 08/16/18 07:08: WBC 6.4, RBC 3.39 L, Hgb 9.5 L, Hct 31.7 L, MCV 93.5, MCH 28.0, MCHC 30.0 L, RDW 14.8 H, RDW Differential 48.2 H, Plt Count 166, MPV 10.8, Immature Gran % (Auto) 0.200, Neut % (Auto) 85.3 H, Lymph % (Auto) 8.2 L, [place] % (Auto) 5.3, Eos % (Auto) 0.8, Baso % (Auto) 0.2, Absolute Neuts (auto) 5.5, Absolute Lymphs (auto) 0.52 L, Total Counted Not Reportable, Differential Comment COMMENT 08/16/18 07:08: Sodium 149 H, Potassium 4.2, Chloride 117 H, Carbon Dioxide 25.0, Anion Gap 7, BUN 66 H, Creatinine 3.52 H, Estim Creat Clear Calc 16.46, Est GFR (MDRD) Af Amer 22 L, Est GFR (MDRD) Non-Af 18 L, BUN/Creatinine Ratio 18.8, Glucose 122 H, Calcium 7.2 L, Total Bilirubin 0.50, AST 55 H, ALT 27, Alkaline Phosphatase 69, Total Creatine Kinase 484 H, Total Protein 4.3 L, Albumin 1.8 L, Globulin 2.5, Albumin/Globulin Ratio 0.7 L Current Medications Acetaminophen (Tylenol) 650 mg PO Q6H PRN PRN PRN Reason: FEVER Allopurinol (Zyloprim) 300 mg PO DAILYCM [facility] Last Admin: 08/16/18 09:58 Dose: 300 mg Aspirin (Ecotrin) 81 mg PO DAILYCM [facility] Last Admin: 08/16/18 09:58 Dose: 81 mg Ergocalciferol (Vitamin D) 50,000 unit PO BURGOS [facility] Finasteride (Proscar) 5 mg PO DAILY [facility] Last Admin: 08/16/18 09:58 Dose: 5 mg Heparin Sodium (Porcine) (Heparin Na) 5,000 unit SC Q12 [facility] Last Admin: 08/16/18 09:59 Dose: 5,000 unit Hydralazine HCl (Apresoline Iv) 5 mg IV Q4H PRN PRN PRN Reason: SBP > 160 Hydralazine HCl (Apresoline) 50 mg PO TID [facility] Last Admin: 08/16/18 14:22 Dose: 50 mg Piperacillin Sod/Tazobactam Sod (Zosyn) 3.375 gm in 50 mls @ 12.5 mls/hr IV Q12 [facility] Last Admin: 08/16/18 09:51 Dose: 12.5 mls/hr Sodium Chloride () 1,000 mls @ 125 mls/hr IV .Q8H [facility] Last Admin: 08/16/18 17:03 Dose: 125 mls/hr Labetalol HCl (Trandate) 200 mg PO BID [facility] Last Admin: 08/16/18 14:25 Dose: 200 mg Magnesium Hydroxide (Milk Of Magnesia) 30 ml PO DAILY PRN PRN Reason: Constipation Nutritional Formula (Lactose Free) (Ensure Enlive) 120 ml PO 4X/DAY [facility] Last Admin: 08/16/18 14:23 Dose: 120 ml Ondansetron HCl (Zofran) 4 mg IV Q8H PRN PRN PRN Reason: NAUSEA Pravastatin Sodium (Pravachol) 40 mg PO QHS [facility] Last Admin: 08/15/18 22:45 Dose: 40 mg Sodium Chloride () 5 - 30 ml IV UD PRN PRN Reason: SALINE FLUSH Last Admin: 08/15/18 01:17 Dose: 5 ml Medical Necessity - Tobacco Use Smoking Status: Never smoker Assessment/Plan All Active Problems 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 BL LE Cellulitis/JOSEF on CKD/Rhabdo/metabolic encephalopathy 2/2 uremia/Chronic lymphedema - H/o lymphedema - Now with cellulitis without sepsis - Currently cx with ? pseudomonas and gram positive organisms - c/w zosyn and vanc - Wound care consult for the lymphedema and the cellulitis - C/w IVF, though will decrease to 1/2NS since sodium is 149 - CK is improving 2. BPH - currently with a santizo - Will plan to dc in am 3. Hx CVA - right sided deficits, stable - c/w asa, statin DVT ppx: heparin
--- NOTE | 2018-08-16 18:36 | PN_ITS ---
Patient Problems: Active and Suspected Problems Sepsis affecting skin (Acute) Rhabdomyolysis (Acute) Acute kidney injury superimposed on chronic kidney disease (Acute) Hyperkalemia (Acute) Subjective: Feels better today, and wants to go home even though he needs two people to move him Vitals/I&O's: Vital Signs Temp Pulse Resp BP Pulse Ox 98.3 F 61 16 155/65 H 99 08/16/18 14:00 08/16/18 15:00 08/16/18 14:00 08/16/18 14:22 08/16/18 14:00 Oxygen Delivery Method Room Air Weight: 164 lb 0.383 oz Body Mass Index (BMI) 24.2 Intake and Output for Last 24 Hours 08/14/18 08/15/18 08/16/18 23:59 23:59 23:59 Intake Total 4099 / 4099 1558 / 1558 Output Total 200 / 200 450 / 450 Balance 3899 / 3899 1108 / 1108 General: Alert, Oriented x3, Cooperative, No apparent distress HEENT: Atraumatic, EOMI, Normocephalic Oral: Moist Mucosa Neck: Supple, No JVD Lungs: Clear to auscultation, Normal air movement, No rhonchi, No wheeze, No rales Cardiovascular: Regular rate, Regular Rhythm, Normal S1, Normal S2, No murmurs Abdomen: Soft, Non Tender, Non-Distended, No Hepato-splenomegaly Extremities: No edema, Capillary Refill Less than 3 Seconds Skin: - - Dressings inplace Neurological: Neuro grossly intact, Sensory exam intact to light touch and pain Psych/Mental Status: Normal Affect, Appropriate Microbiology Past 72 Hours 08/15/18 14:58 Urine, Catheterized Urine Culture - Preliminary Culture exhibits no growth. 08/14/18 20:05 Wound - Left Foot Gram Stain - Final 08/14/18 20:05 Wound - Left Foot Wound Culture - Preliminary GNR Poss Pseudomonas sp Gram positive organism Laboratory Results 08/16/18 07:08: WBC 6.4, RBC 3.39 L, Hgb 9.5 L, Hct 31.7 L, MCV 93.5, MCH 28.0, MCHC 30.0 L, RDW 14.8 H, RDW Differential 48.2 H, Plt Count 166, MPV 10.8, Immature Gran % (Auto) 0.200, Neut % (Auto) 85.3 H, Lymph % (Auto) 8.2 L, Colbert % (Auto) 5.3, Eos % (Auto) 0.8, Baso % (Auto) 0.2, Absolute Neuts (auto) 5.5, Absolute Lymphs (auto) 0.52 L, Total Counted Not Reportable, Differential Comment COMMENT 08/16/18 07:08: Sodium 149 H, Potassium 4.2, Chloride 117 H, Carbon Dioxide 25.0, Anion Gap 7, BUN 66 H, Creatinine 3.52 H, Estim Creat Clear Calc 16.46, Est GFR (MDRD) Af Amer 22 L, Est GFR (MDRD) Non-Af 18 L, BUN/Creatinine Ratio 18.8, Glucose 122 H, Calcium 7.2 L, Total Bilirubin 0.50, AST 55 H, ALT 27, Alkaline Phosphatase 69, Total Creatine Kinase 484 H, Total Protein 4.3 L, Albumin 1.8 L, Globulin 2.5, Albumin/Globulin Ratio 0.7 L Current Medications Acetaminophen (Tylenol) 650 mg PO Q6H PRN PRN PRN Reason: FEVER Allopurinol (Zyloprim) 300 mg PO DAILYCM [facility] Last Admin: 08/16/18 09:58 Dose: 300 mg Aspirin (Ecotrin) 81 mg PO DAILYCM [facility] Last Admin: 08/16/18 09:58 Dose: 81 mg Ergocalciferol (Vitamin D) 50,000 unit PO [place] [facility] Finasteride (Proscar) 5 mg PO DAILY [facility] Last Admin: 08/16/18 09:58 Dose: 5 mg Heparin Sodium (Porcine) (Heparin Na) 5,000 unit SC Q12 [facility] Last Admin: 08/16/18 09:59 Dose: 5,000 unit Hydralazine HCl (Apresoline Iv) 5 mg IV Q4H PRN PRN PRN Reason: SBP > 160 Hydralazine HCl (Apresoline) 50 mg PO TID [facility] Last Admin: 08/16/18 14:22 Dose: 50 mg Piperacillin Sod/Tazobactam Sod (Zosyn) 3.375 gm in 50 mls @ 12.5 mls/hr IV Q12 [facility] Last Admin: 08/16/18 09:51 Dose: 12.5 mls/hr Sodium Chloride () 1,000 mls @ 125 mls/hr IV .Q8H [facility] Last Admin: 08/16/18 17:03 Dose: 125 mls/hr Labetalol HCl (Trandate) 200 mg PO BID [facility] Last Admin: 08/16/18 14:25 Dose: 200 mg Magnesium Hydroxide (Milk Of Magnesia) 30 ml PO DAILY PRN PRN Reason: Constipation Nutritional Formula (Lactose Free) (Ensure Enlive) 120 ml PO 4X/DAY [facility] Last Admin: 08/16/18 14:23 Dose: 120 ml Ondansetron HCl (Zofran) 4 mg IV Q8H PRN PRN PRN Reason: NAUSEA Pravastatin Sodium (Pravachol) 40 mg PO QHS [facility] Last Admin: 08/15/18 22:45 Dose: 40 mg Sodium Chloride () 5 - 30 ml IV UD PRN PRN Reason: SALINE FLUSH Last Admin: 08/15/18 01:17 Dose: 5 ml Medical Necessity - Tobacco Use Smoking Status: Never smoker Assessment/Plan All Active Problems 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 BL LE Cellulitis/JOSEF on CKD/Rhabdo/metabolic encephalopathy 2/2 uremia/Chronic lymphedema - H/o lymphedema - Now with cellulitis without sepsis - Currently cx with ? pseudomonas and gram positive organisms - c/w zosyn and vanc - Wound care consult for the lymphedema and the cellulitis - C/w IVF, though will decrease to 1/2NS since sodium is 149 - CK is improving 2. BPH - currently with a santizo - Will plan to dc in am 3. Hx CVA - right sided deficits, stable - c/w asa, statin DVT ppx: heparin
[2018-08-16] MEDS: Pravastatin 40 MG Tablet PO (22:21)
[2018-08-16 22:52] LABS: Urine Sodium 53 mmol/L (Not Establ.)
[2018-08-17] VITALS (16 sets, daily range): BP systolic 125–159; BP diastolic 50–80; PULSE 53–98; RESP 14–20; TEMP 36.7–36.9; O2SAT 95–99
[2018-08-17] MEDS: 0.45% Normal Saline 1,000 ML 125 ML IV ×3 (01:39→16:19)
[2018-08-17] MEDS: hydrALAZINE 50 MG Tablet PO ×3 (05:25→21:32)
[2018-08-17 07:23] LABS: Anion Gap 8 (5-15); BUN 61 mg/dL (7-18); BUN/Creat Ratio 21.3 RATIO (10-20); Calcium,Total 7.6 mg/dL (8.5-10.1); Chloride 117 mmol/L (98-107); Creatinine, Serum 2.87 mg/dL (0.70-1.30); EST Glomerular Filtration Rate 23 mL/min (>60); Est Glom Filt Rate - Afr Amer 27 mL/min (>60); Estimated Creatinine Clearance 20.19 ml/min; Glucose 90 mg/dL (74-106); Potassium 3.8 mmol/L (3.5-5.1); Sodium Level 149 mmol/L (136-145)
[2018-08-17] MEDS: Finasteride 5 MG Tablet PO (09:43)
[2018-08-17] MEDS: Heparin Injection (Vial) 5,000 UNIT/ML VIAL 5000 UNIT SC ×2 (09:43→21:32)
[2018-08-17] MEDS: Aspirin E.C. 81 MG Tablet PO (09:43)
[2018-08-17] MEDS: Allopurinol 300 MG Tablet PO (09:43)
[2018-08-17] MEDS: Labetalol 200 MG Tablet PO ×2 (09:43→21:32)
[2018-08-17] MEDS: Piperacil/Tazobactam 3.375 GM/50 ML ML IV (09:50)
--- NOTE | 2018-08-17 14:18 | PCM.PN.HOSP ---
Patient Problems: Active and Suspected Problems Sepsis affecting skin (Acute) Rhabdomyolysis (Acute) Acute kidney injury superimposed on chronic kidney disease (Acute) Hyperkalemia (Acute) Subjective: Feels much better today but he is unable to go home because his grandson who is going to help him at home cannot move in until tomorrow Objective: General: Alert, Oriented x3, Cooperative, No apparent distress HEENT: Atraumatic, EOMI, Normocephalic Oral: Moist Mucosa Neck: Supple, No JVD Lungs: Clear to auscultation, Normal air movement, No rhonchi, No wheeze, No rales Cardiovascular: Regular rate, Regular Rhythm, Normal S1, Normal S2, No murmurs Abdomen: Soft, Non Tender, Non-Distended, No Hepato-splenomegaly Extremities: No edema, Capillary Refill Less than 3 Seconds Skin: - - Dressings inplace Neurological: Neuro grossly intact, Sensory exam intact to light touch and pain Psych/Mental Status: Normal Affect, Appropriate Vitals/I&O's: Vital Signs Temp Pulse Resp BP Pulse Ox 98.1 F 76 18 129/57 H 99 08/17/18 09:39 08/17/18 12:47 08/17/18 09:57 08/17/18 09:39 08/17/18 09:39 Oxygen Delivery Method Room Air Weight: 164 lb 0.383 oz Body Mass Index (BMI) 24.2 Intake and Output for Last 24 Hours 08/15/18 08/16/18 08/17/18 23:59 23:59 23:59 Intake Total 4099 / 4099 3331 / 3331 1674 / 1674 Output Total 200 / 200 1000 / 1000 525 / 525 Balance 3899 / 3899 2331 / 2331 1149 / 1149 Microbiology Past 72 Hours 08/15/18 01:23 Blood Culture (Wb) - Anticubital Right Blood Culture - Preliminary No growth in 48 hours. 08/15/18 01:33 Blood Culture (Wb) - Anticubital Right Blood Culture - Preliminary No growth in 48 hours. 08/15/18 14:58 Urine, Catheterized Urine Culture - Final Culture exhibits no growth. 08/14/18 20:05 Wound - Left Foot Gram Stain - Final 08/14/18 20:05 Wound - Left Foot Wound Culture - Preliminary Pseudomonas spp Gram positive organism 08/14/18 20:05 Wound - Left Foot Anaerobic Culture - Preliminary Checking for anaerobes, further studies to follow. Laboratory Results 08/16/18 20:15: Urine Creatinine 84.20 08/16/18 20:15: Ur Random Sodium 53 08/17/18 06:17: Sodium 149 H, Potassium 3.8, Chloride 117 H, Carbon Dioxide 24.0, Anion Gap 8, BUN 61 H, Creatinine 2.87 H, Estim Creat Clear Calc 20.19, Est GFR (MDRD) Af Amer 27 L, Est GFR (MDRD) Non-Af 23 L, BUN/Creatinine Ratio 21.3 H, Glucose 90, Calcium 7.6 L Current Medications Acetaminophen (Tylenol) 650 mg PO Q6H PRN PRN PRN Reason: FEVER [facility] Admin: 08/17/18 09:43 Dose: 300 mg [facility] ([facility]) [facility] Last Admin: 08/17/18 09:43 Dose: 81 mg Ergocalciferol (Vitamin D) 50,000 unit PO [facility] Finasteride (Proscar) 5 mg PO DAILY [facility] Last Admin: 08/17/18 09:43 Dose: 5 mg Heparin Sodium (Porcine) (Heparin Na) 5,000 unit SC Q12 [facility] Last Admin: 08/17/18 09:43 Dose: 5,000 unit Hydralazine HCl (Apresoline Iv) 5 mg IV Q4H PRN PRN PRN Reason: SBP > 160 Hydralazine HCl (Apresoline) 50 mg PO TID [facility] Last Admin: 08/17/18 05:25 Dose: 50 mg Piperacillin Sod/Tazobactam Sod (Zosyn) 3.375 gm in 50 mls @ 12.5 mls/hr IV Q12 [facility] Last Admin: 08/17/18 09:50 Dose: 12.5 mls/hr Sodium Chloride () 1,000 mls @ 125 mls/hr IV .Q8H [facility] Last Admin: 08/17/18 08:34 Dose: 125 mls/hr Labetalol HCl (Trandate) 200 mg PO BID [facility] Last Admin: 08/17/18 09:43 Dose: 200 mg Magnesium Hydroxide (Milk Of Magnesia) 30 ml PO DAILY PRN PRN Reason: Constipation Metronidazole (Flagyl) 500 mg PO TID [facility] Nutritional Formula (Lactose Free) (Ensure Enlive) 120 ml PO 4X/DAY [facility] Last Admin: 08/17/18 09:43 Dose: Not Given Ondansetron HCl (Zofran) 4 mg IV Q8H PRN PRN PRN Reason: NAUSEA Pravastatin Sodium (Pravachol) 40 mg PO QHS [facility] Last Admin: 08/16/18 22:21 Dose: 40 mg Sodium Chloride () 5 - 30 ml IV UD PRN PRN Reason: SALINE FLUSH Last Admin: 08/15/18 01:17 Dose: 5 ml Medical Necessity - Tobacco Use Smoking Status: Never smoker Assessment/Plan All Active Problems 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 BL LE Cellulitis/JOSEF on CKD/Rhabdo/metabolic encephalopathy 2/2 uremia/Chronic lymphedema - H/o lymphedema - Now with cellulitis without sepsis - Currently cx with pseudomonas and bacteroides, will switch to cipro and flagyl as the pseudomonas is longoria sensitive - Wound care consult for the lymphedema and the cellulitis, photos reviewed, no ulceration and no h/o DM to suspect osteo - C/w IVF 1/2NS since sodium is 149 - CK is improving - Creatinine is also improving and FENa is 1.2 indicating ATN, will remove santizo and renal function is also improving 2. BPH - DC santizo - c/w proscar 3. Hx CVA - right sided deficits, stable - c/w asa, statin DVT ppx: heparin Code Visit Inpatient E&M: 13048 Subs Hosp L2
--- NOTE | 2018-08-17 14:23 | PN_ITS ---
Patient Problems: Active and Suspected Problems Sepsis affecting skin (Acute) Rhabdomyolysis (Acute) Acute kidney injury superimposed on chronic kidney disease (Acute) Hyperkalemia (Acute) Subjective: Feels much better today but he is unable to go home because his grandson who is going to help him at home cannot move in until tomorrow Objective: General: Alert, Oriented x3, Cooperative, No apparent distress HEENT: Atraumatic, EOMI, Normocephalic Oral: Moist Mucosa Neck: Supple, No JVD Lungs: Clear to auscultation, Normal air movement, No rhonchi, No wheeze, No rales Cardiovascular: Regular rate, Regular Rhythm, Normal S1, Normal S2, No murmurs Abdomen: Soft, Non Tender, Non-Distended, No Hepato-splenomegaly Extremities: No edema, Capillary Refill Less than 3 Seconds Skin: - - Dressings inplace Neurological: Neuro grossly intact, Sensory exam intact to light touch and pain Psych/Mental Status: Normal Affect, Appropriate Vitals/I&O's: Vital Signs Temp Pulse Resp BP Pulse Ox 98.1 F 76 18 129/57 H 99 08/17/18 09:39 08/17/18 12:47 08/17/18 09:57 08/17/18 09:39 08/17/18 09:39 Oxygen Delivery Method Room Air Weight: 164 lb 0.383 oz Body Mass Index (BMI) 24.2 Intake and Output for Last 24 Hours 08/15/18 08/16/18 08/17/18 23:59 23:59 23:59 Intake Total 4099 / 4099 3331 / 3331 1674 / 1674 Output Total 200 / 200 1000 / 1000 525 / 525 Balance 3899 / 3899 2331 / 2331 1149 / 1149 Microbiology Past 72 Hours 08/15/18 01:23 Blood Culture (Wb) - Anticubital Right Blood Culture - Preliminary No growth in 48 hours. 08/15/18 01:33 Blood Culture (Wb) - Anticubital Right Blood Culture - Preliminary No growth in 48 hours. 08/15/18 14:58 Urine, Catheterized Urine Culture - Final Culture exhibits no growth. 08/14/18 20:05 Wound - Left Foot Gram Stain - Final 08/14/18 20:05 Wound - Left Foot Wound Culture - Preliminary Pseudomonas spp Gram positive organism 08/14/18 20:05 Wound - Left Foot Anaerobic Culture - Preliminary Checking for anaerobes, further studies to follow. Laboratory Results 08/16/18 20:15: Urine Creatinine 84.20 08/16/18 20:15: Ur Random Sodium 53 08/17/18 06:17: Sodium 149 H, Potassium 3.8, Chloride 117 H, Carbon Dioxide 24.0, Anion Gap 8, BUN 61 H, Creatinine 2.87 H, Estim Creat Clear Calc 20.19, Est GFR (MDRD) Af Amer 27 L, Est GFR (MDRD) Non-Af 23 L, BUN/Creatinine Ratio 21.3 H, Glucose 90, Calcium 7.6 L Current Medications Acetaminophen (Tylenol) 650 mg PO Q6H PRN PRN PRN Reason: FEVER [facility] Admin: 08/17/18 09:43 Dose: 300 mg [facility] ([facility]) [facility] Last Admin: 08/17/18 09:43 Dose: 81 mg Ergocalciferol (Vitamin D) 50,000 unit PO [facility] Finasteride (Proscar) 5 mg PO DAILY [facility] Last Admin: 08/17/18 09:43 Dose: 5 mg Heparin Sodium (Porcine) (Heparin Na) 5,000 unit SC Q12 [facility] Last Admin: 08/17/18 09:43 Dose: 5,000 unit Hydralazine HCl (Apresoline Iv) 5 mg IV Q4H PRN PRN PRN Reason: SBP > 160 Hydralazine HCl (Apresoline) 50 mg PO TID [facility] Last Admin: 08/17/18 05:25 Dose: 50 mg Piperacillin Sod/Tazobactam Sod (Zosyn) 3.375 gm in 50 mls @ 12.5 mls/hr IV Q12 [facility] Last Admin: 08/17/18 09:50 Dose: 12.5 mls/hr Sodium Chloride () 1,000 mls @ 125 mls/hr IV .Q8H [facility] Last Admin: 08/17/18 08:34 Dose: 125 mls/hr Labetalol HCl (Trandate) 200 mg PO BID [facility] Last Admin: 08/17/18 09:43 Dose: 200 mg Magnesium Hydroxide (Milk Of Magnesia) 30 ml PO DAILY PRN PRN Reason: Constipation Metronidazole (Flagyl) 500 mg PO TID [facility] Nutritional Formula (Lactose Free) (Ensure Enlive) 120 ml PO 4X/DAY [facility] Last Admin: 08/17/18 09:43 Dose: Not Given Ondansetron HCl (Zofran) 4 mg IV Q8H PRN PRN PRN Reason: NAUSEA Pravastatin Sodium (Pravachol) 40 mg PO QHS [facility] Last Admin: 08/16/18 22:21 Dose: 40 mg Sodium Chloride () 5 - 30 ml IV UD PRN PRN Reason: SALINE FLUSH Last Admin: 08/15/18 01:17 Dose: 5 ml Medical Necessity - Tobacco Use Smoking Status: Never smoker Assessment/Plan All Active Problems 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 BL LE Cellulitis/JOSEF on CKD/Rhabdo/metabolic encephalopathy 2/2 uremia/Chronic lymphedema - H/o lymphedema - Now with cellulitis without sepsis - Currently cx with pseudomonas and bacteroides, will switch to cipro and flagyl as the pseudomonas is longoria sensitive - Wound care consult for the lymphedema and the cellulitis, photos reviewed, no ulceration and no h/o DM to suspect osteo - C/w IVF 1/2NS since sodium is 149 - CK is improving - Creatinine is also improving and FENa is 1.2 indicating ATN, will remove santizo and renal function is also improving 2. BPH - DC santizo - c/w proscar 3. Hx CVA - right sided deficits, stable - c/w asa, statin DVT ppx: heparin Code Visit Inpatient E&M: 65093 Subs Hosp L2
[2018-08-17] MEDS: metroNIDAZOLE 500 MG Tablet PO ×2 (15:26→21:32)
--- NOTE | 2018-08-17 16:02 | PCM.PN.REN ---
Patient Problems: Active and Suspected Problems Sepsis affecting skin (Acute) Rhabdomyolysis (Acute) Acute kidney injury superimposed on chronic kidney disease (Acute) Hyperkalemia (Acute) Subjective: no new complaints - Physical Exam General: Alert, Oriented x3, Cooperative HEENT: Atraumatic, PERRLA, EOMI, Normocephalic Neck: Supple, No JVD, Negative Carotid Bruits Lungs: Clear to auscultation, Normal air movement Cardiovascular: Regular rate, No murmurs Abdomen: Bowel Sounds Present, Soft, Non Tender Extremities: No edema, Capillary Refill Less than 3 Seconds Skin: No rashes, No breakdown Musculoskeletal: No Tenderness to Palpation of Joints or Extremities Neurological: Cranial nerves II-XII grossly intact Psych/Mental Status: Normal Affect, Appropriate Vital Signs Temp Pulse Resp BP Pulse Ox 98.4 F 62 18 137/50 H 97 08/17/18 15:22 08/17/18 15:26 08/17/18 15:22 08/17/18 15:22 08/17/18 15:22 Oxygen Delivery Method Room Air Weight: 74.4 kg Body Mass Index (BMI) 24.2 Intake and Output for Last 24 Hours 08/15/18 08/16/18 08/17/18 23:59 23:59 23:59 Intake Total 4099 / 4099 3331 / 3331 1674 / 1674 Output Total 200 / 200 1000 / 1000 525 / 525 Balance 3899 / 3899 2331 / 2331 1149 / 1149 Microbiology Past 72 Hours 08/15/18 01:23 Blood Culture - Preliminary Blood Culture (Wb) - Anticubital Right No growth in 48 hours. 08/15/18 01:33 Blood Culture - Preliminary Blood Culture (Wb) - Anticubital Right No growth in 48 hours. 08/15/18 14:58 Urine Culture - Final Urine, Catheterized Culture exhibits no growth. 08/14/18 20:05 Gram Stain - Final Wound - Left Foot Wound Culture - Preliminary Pseudomonas spp Gram positive organism Anaerobic Culture - Preliminary Checking for anaerobes, further studies to follow. 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 Baseline creatinine seems around 1.4-1.8 mg deciliter. UA showed 100 protein, occult blood 50, nitrite positive, RBCs 5-10 white cell 0-5. FeNa is 0.4% Acute kidney injury related to prerenal from dehydration due to poor oral intake. Prerenal could have progressed to ATN . creatinine is better. 2-hyperkalemia: Related to acute kidney injury. Treated medically with D50/insulin. resolved. 3- Hypernatremia . related to IV Ns. now on half NS 4-sepsis due to cellulitis/UTI. abx as per primary 5-hypertension: Blood pressure is acceptable. Continue the current dose of hydralazine and labetalol 6-BPH: Continue finasteride and Flomax. santizo in place
[2018-08-17] MEDS: Pravastatin 40 MG Tablet PO (21:32)
[2018-08-18] VITALS (17 sets, daily range): BP systolic 121–199; BP diastolic 63–107; PULSE 53–94; RESP 16–18; TEMP 36.4–36.8; O2SAT 95–99
[2018-08-18] MEDS: 0.45% Normal Saline 1,000 ML 125 ML IV ×2 (00:13→08:57)
[2018-08-18] MEDS: metroNIDAZOLE 500 MG Tablet PO ×3 (05:39→22:12)
[2018-08-18] MEDS: hydrALAZINE 50 MG Tablet PO ×3 (05:39→22:12)
[2018-08-18 07:34] LABS: Anion Gap 6 (5-15); BUN 52 mg/dL (7-18); BUN/Creat Ratio 20.5 RATIO (10-20); Calcium,Total 7.6 mg/dL (8.5-10.1); Chloride 116 mmol/L (98-107); Creatinine, Serum 2.54 mg/dL (0.70-1.30); EST Glomerular Filtration Rate 26 mL/min (>60); Est Glom Filt Rate - Afr Amer 32 mL/min (>60); Estimated Creatinine Clearance 22.81 ml/min; Glucose 93 mg/dL (74-106); Potassium 3.9 mmol/L (3.5-5.1); Sodium Level 146 mmol/L (136-145)
--- NOTE | 2018-08-18 07:49 | PN_ITS ---
Patient Problems: Active and Suspected Problems Sepsis affecting skin (Acute) Rhabdomyolysis (Acute) Acute kidney injury superimposed on chronic kidney disease (Acute) Hyperkalemia (Acute) Subjective: Doing well, renal function is improving and he is now agreeable to SNF placement for rehab. No issues overnight Vitals/I&O's: Vital Signs Temp Pulse Resp BP Pulse Ox 97.7 F L 57 L 16 150/71 H 99 08/18/18 03:20 08/18/18 07:03 08/18/18 03:20 08/18/18 05:38 08/18/18 03:20 Oxygen Delivery Method Room Air Weight: 164 lb 0.383 oz Body Mass Index (BMI) 24.2 Intake and Output for Last 24 Hours 08/16/18 08/17/18 08/18/18 23:59 23:59 23:59 Intake Total 3331 / 3331 3473 / 3473 683 / 683 Output Total 1000 / 1000 675 / 675 Balance 2331 / 2331 2798 / 2798 683 / 683 General: Alert, Oriented x3, Cooperative, No apparent distress HEENT: Atraumatic, EOMI, Normocephalic Oral: Moist Mucosa Neck: Supple, No JVD Lungs: Clear to auscultation, Normal air movement, No rhonchi, No wheeze, No rales Cardiovascular: Regular rate, Regular Rhythm, Normal S1, Normal S2, No murmurs Abdomen: Soft, Non Tender, Non-Distended, No Hepato-splenomegaly Extremities: No edema, Capillary Refill Less than 3 Seconds Skin: - - Dressings inplace Neurological: Neuro grossly intact, Sensory exam intact to light touch and pain Psych/Mental Status: Normal Affect, Appropriate Microbiology Past 72 Hours 08/15/18 01:23 Blood Culture (Wb) - Anticubital Right Blood Culture - Preliminary No growth in 48 hours. 08/15/18 01:33 Blood Culture (Wb) - Anticubital Right Blood Culture - Prel iminary No growth in 48 hours. 08/15/18 14:58 Urine, Catheterized Urine Culture - Final Culture exhibits no growth. 08/14/18 20:05 Wound - Left Foot Gram Stain - Final 08/14/18 20:05 Wound - Left Foot Wound Culture - Preliminary Pseudomonas spp Gram positive organism 08/14/18 20:05 Wound - Left Foot Anaerobic Culture - Preliminary Checking for anaerobes, further studies to follow. Laboratory Results 08/18/18 06:50: Sodium 146 H, Potassium 3.9, Chloride 116 H, Carbon Dioxide 24.0, Anion Gap 6, BUN 52 H, Creatinine 2.54 H, Estim Creat Clear Calc 22.81, Est GFR (MDRD) Af Amer 32 L, Est GFR (MDRD) Non-Af 26 L, BUN/Creatinine Ratio 20.5 H, Glucose 93, Calcium 7.6 L Current Medications Acetaminophen (Tylenol) 650 mg PO Q6H PRN PRN PRN Reason: FEVER [facility] Last Admin: 08/17/18 09:43 Dose: 300 mg Aspirin (Ecotrin) [facility] Last Admin: 08/17/18 09:43 Dose: 81 mg Ciprofloxacin HCl (Cipro) 500 mg PO DAILY [facility] Ergocalciferol (Vitamin D) 50,000 unit PO BURGOS [facility] Finasteride (Proscar) 5 mg PO DAILY [facility] Last Admin: 08/17/18 09:43 Dose: 5 mg Heparin Sodium (Porcine) (Heparin Na) 5,000 unit SC Q12 [facility] Last Admin: 08/17/18 21:32 Dose: 5,000 unit Hydralazine HCl (Apresoline Iv) 5 mg IV Q4H PRN PRN PRN Reason: SBP > 160 Hydralazine HCl (Apresoline) 50 mg PO TID [facility] Last Admin: 08/18/18 05:39 Dose: 50 mg Sodium Chloride () 1,000 mls @ 125 mls/hr IV .Q8H [facility] Last Admin: 08/18/18 00:13 Dose: 125 mls/hr Labetalol HCl (Trandate) 200 mg PO BID [facility] Last Admin: 08/17/18 21:32 Dose: 200 mg Magnesium Hydroxide (Milk Of Magnesia) 30 ml PO DAILY PRN PRN Reason: Constipation Metronidazole (Flagyl) 500 mg PO TID [facility] Last Admin: 08/18/18 05:39 Dose: 500 mg Nutritional Formula (Lactose Free) (Ensure Enlive) 120 ml PO 4X/DAY [facility] Last Admin: 08/17/18 21:32 Dose: 120 ml Ondansetron HCl (Zofran) 4 mg IV Q8H PRN PRN PRN Reason: NAUSEA Pravastatin Sodium (Pravachol) 40 mg PO QHS [facility] Last Admin: 08/17/18 21:32 Dose: 40 mg Sodium Chloride () 5 - 30 ml IV UD PRN PRN Reason: SALINE FLUSH Last Admin: 08/15/18 01:17 Dose: 5 ml Medical Necessity - Tobacco Use Smoking Status: Never smoker Assessment/Plan All Active Problems 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 BL LE Cellulitis/JOSEF on CKD/Rhabdo/metabolic encephalopathy 2/2 uremia/Chronic lymphedema - H/o lymphedema - Now with cellulitis without sepsis - Currently cx with pseudomonas and bacteroides, will switch to cipro and flagyl as the pseudomonas is longoria sensitive - Wound care consult for the lymphedema and the cellulitis, photos reviewed, no ulceration and no h/o DM to suspect osteo - C/w IVF 1/2NS since sodium is 146 - Creatinine is also improving - CM for SNF authorization on sunday 2. BPH - c/w proscar 3. Hx CVA - right sided deficits, stable - c/w asa, statin DVT ppx: heparin Diet: Regular Code Visit Inpatient E&M: 83016 Subs Hosp L2
[2018-08-18] MEDS: Heparin Injection (Vial) 5,000 UNIT/ML VIAL 5000 UNIT SC ×2 (08:58→22:11)
[2018-08-18] MEDS: Aspirin E.C. 81 MG Tablet PO (08:59)
[2018-08-18] MEDS: Allopurinol 300 MG Tablet PO (08:59)
[2018-08-18] MEDS: Labetalol 200 MG Tablet PO ×2 (08:59→22:12)
[2018-08-18] MEDS: Ciprofloxacin 500 MG Tablet PO (08:59)
[2018-08-18] MEDS: Finasteride 5 MG Tablet PO (09:00)
[2018-08-18] MEDS: Pravastatin 40 MG Tablet PO (22:12)
--- NOTE | 2018-08-18 22:31 | NURSING ---
Report given to Pepe Willard RN who is taking over patient care at this time.
[2018-08-19] VITALS (12 sets, daily range): BP systolic 133–145; BP diastolic 55–73; PULSE 37–65; RESP 14–18; TEMP 36.4–36.8; O2SAT 96–99
[2018-08-19] MEDS: hydrALAZINE 50 MG Tablet PO (05:12)
[2018-08-19] MEDS: metroNIDAZOLE 500 MG Tablet PO ×2 (05:12→13:44)
[2018-08-19 06:57] LABS: Anion Gap 7 (5-15); BUN 50 mg/dL (7-18); BUN/Creat Ratio 21.3 RATIO (10-20); Chloride 117 mmol/L (98-107); Creatinine, Serum 2.35 mg/dL (0.70-1.30); EST Glomerular Filtration Rate 28 mL/min (>60); Est Glom Filt Rate - Afr Amer 34 mL/min (>60); Estimated Creatinine Clearance 24.65 ml/min; Glucose 114 mg/dL (74-106); Potassium 3.7 mmol/L (3.5-5.1); Sodium Level 148 mmol/L (136-145)
--- NOTE | 2018-08-19 08:09 | PCM.PN.HOSP ---
Patient Problems: Active and Suspected Problems Sepsis affecting skin (Acute) Rhabdomyolysis (Acute) Acute kidney injury superimposed on chronic kidney disease (Acute) Hyperkalemia (Acute) Subjective: Doing well fells better and noticed that his legs look better Vitals/I&O's: Vital Signs Temp Pulse Resp BP Pulse Ox 97.8 F 51 L 14 145/73 H 99 08/19/18 05:11 08/19/18 07:01 08/19/18 05:11 08/19/18 05:12 08/19/18 05:11 Oxygen Delivery Method Room Air Weight: 164 lb 0.383 oz Body Mass Index (BMI) 24.2 Intake and Output for Last 24 Hours 08/17/18 08/18/18 08/19/18 23:59 23:59 23:59 Intake Total 3473 / 3473 2166 / 2166 120 / 120 Output Total 675 / 675 150 / 150 100 / 100 Balance 2798 / 2798 2015 General: Alert, Oriented x3, Cooperative, No apparent distress HEENT: Atraumatic, EOMI, Normocephalic Oral: Moist Mucosa Neck: Supple, No JVD Lungs: Clear to auscultation, Normal air movement, No rhonchi, No wheeze, No rales Cardiovascular: Regular rate, Regular Rhythm, Normal S1, Normal S2, No murmurs Abdomen: Soft, Non Tender, Non-Distended, No Hepato-splenomegaly Extremities: No edema, Capillary Refill Less than 3 Seconds Skin: - - Dressings inplace Neurological: Neuro grossly intact, Sensory exam intact to light touch and pain Psych/Mental Status: Normal Affect, Appropriate Microbiology Past 72 Hours 08/14/18 20:05 Wound - Left Foot Gram Stain - Final 08/14/18 20:05 Wound - Left Foot Wound Culture - Final Pseudomonas spp Gram positive collin 08/14/18 20:05 Wound - Left Foot Anaerobic Culture - Preliminary Checking for anaerobes, further studies to follow. 08/15/18 01:23 Blood Culture (Wb) - Anticubital Right Blood Culture - Preliminary No growth in 48 hours. 08/15/18 01:33 Blood Culture (Wb) - Anticubital Right Blood Culture - Preliminary No growth in 48 hours. 08/15/18 14:58 Urine, Catheterized Urine Culture - Final Culture exhibits no growth. Laboratory Results 08/19/18 05:50: Sodium 148 H, Potassium 3.7, Chloride 117 H, Carbon Dioxide 24.0, Anion Gap 7, BUN 50 H, Creatinine 2.35 H, Estim Creat Clear Calc 24.65, Est GFR (MDRD) Af Amer 34 L, Est GFR (MDRD) Non-Af 28 L, BUN/Creatinine Ratio 21.3 H, Glucose 114 H, Calcium 8.0 L Current Medications Acetaminophen (Tylenol) 650 mg PO Q6H PRN PRN PRN Reason: FEVER [facility] Admin: 08/18/18 08:59 Dose: 300 mg [facility]) [facility] Last Admin: 08/18/18 08:59 Dose: 81 mg Ciprofloxacin HCl (Cipro) 500 mg PO DAILY [facility] Last Admin: 08/18/18 08:59 Dose: 500 mg Ergocalciferol (Vitamin D) 50,000 unit PO BURGOS [facility] Last Admin: 08/18/18 08:59 Dose: 50,000 unit Finasteride (Proscar) 5 mg PO DAILY [facility] Last Admin: 08/18/18 09:00 Dose: 5 mg Heparin Sodium (Porcine) (Heparin Na) 5,000 unit SC Q12 [facility] Last Admin: 08/18/18 22:11 Dose: 5,000 unit Hydralazine HCl (Apresoline Iv) 5 mg IV Q4H PRN PRN PRN Reason: SBP > 160 Hydralazine HCl (Apresoline) 50 mg PO TID [facility] Last Admin: 08/19/18 05:12 Dose: 50 mg Labetalol HCl (Trandate) 200 mg PO BID [facility] Last Admin: 08/18/18 22:12 Dose: 200 mg Magnesium Hydroxide (Milk Of Magnesia) 30 ml PO DAILY PRN PRN Reason: Constipation Metronidazole (Flagyl) 500 mg PO TID [facility] Last Admin: 08/19/18 05:12 Dose: 500 mg Nutritional Formula (Lactose Free) (Ensure Enlive) 120 ml PO 4X/DAY [facility] Last Admin: 08/18/18 22:12 Dose: 120 ml Ondansetron HCl (Zofran) 4 mg IV Q8H PRN PRN PRN Reason: NAUSEA Pravastatin Sodium (Pravachol) 40 mg PO QHS [facility] Last Admin: 08/18/18 22:12 Dose: 40 mg Sodium Chloride () 5 - 30 ml IV UD PRN PRN Reason: SALINE FLUSH Last Admin: 08/15/18 01:17 Dose: 5 ml Medical Necessity - Tobacco Use Smoking Status: Never smoker Assessment/Plan All Active Problems 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 BL LE Cellulitis/JOSFE on CKD/Rhabdo/metabolic encephalopathy 2/2 uremia/Chronic lymphedema - H/o lymphedema - Now with cellulitis without sepsis - Currently cx with pseudomonas and bacteroides, will switch to cipro and flagyl as the pseudomonas is longoria sensitive - Wound care consult for the lymphedema and the cellulitis, photos reviewed, no ulceration and no h/o DM to suspect osteo - IVF were discontinued because of arm swelling - Creatinine is also improving - CM for SNF authorization today 2. BPH - c/w proscar 3. Hx CVA - right sided deficits, stable - c/w asa, statin DVT ppx: heparin Diet: Regular Code Visit Inpatient E&M: 09657 Subs Hosp L2
--- NOTE | 2018-08-19 08:33 | PN_ITS ---
Patient Problems: Active and Suspected Problems Sepsis affecting skin (Acute) Rhabdomyolysis (Acute) Acute kidney injury superimposed on chronic kidney disease (Acute) Hyperkalemia (Acute) Subjective: Doing well fells better and noticed that his legs look better Vitals/I&O's: Vital Signs Temp Pulse Resp BP Pulse Ox 97.8 F 51 L 14 145/73 H 99 08/19/18 05:11 08/19/18 07:01 08/19/18 05:11 08/19/18 05:12 08/19/18 05:11 Oxygen Delivery Method Room Air Weight: 164 lb 0.383 oz Body Mass Index (BMI) 24.2 Intake and Output for Last 24 Hours 08/17/18 08/18/18 08/19/18 23:59 23:59 23:59 Intake Total 3473 / 3473 2166 / 2166 120 / 120 Output Total 675 / 675 150 / 150 100 / 100 Balance 2798 / 2798 2015 General: Alert, Oriented x3, Cooperative, No apparent distress HEENT: Atraumatic, EOMI, Normocephalic Oral: Moist Mucosa Neck: Supple, No JVD Lungs: Clear to auscultation, Normal air movement, No rhonchi, No wheeze, No rales Cardiovascular: Regular rate, Regular Rhythm, Normal S1, Normal S2, No murmurs Abdomen: Soft, Non Tender, Non-Distended, No Hepato-splenomegaly Extremities: No edema, Capillary Refill Less than 3 Seconds Skin: - - Dressings inplace Neurological: Neuro grossly intact, Sensory exam intact to light touch and pain Psych/Mental Status: Normal Affect, Appropriate Microbiology Past 72 Hours 08/14/18 20:05 Wound - Left Foot Gram Stain - Final 08/14/18 20:05 Wound - Left Foot Wound Culture - Final Pseudomonas spp Gram positive collin 08/14/18 20:05 Wound - Left Foot Anaerobic Culture - Preliminary Checking for anaerobes, further studies to follow. 08/15/18 01:23 Blood Culture (Wb) - Anticubital Right Blood Culture - Preliminary No growth in 48 hours. 08/15/18 01:33 Blood Culture (Wb) - Anticubital Right Blood Culture - Preliminary No growth in 48 hours. 08/15/18 14:58 Urine, Catheterized Urine Culture - Final Culture exhibits no growth. Laboratory Results 08/19/18 05:50: Sodium 148 H, Potassium 3.7, Chloride 117 H, Carbon Dioxide 24.0, Anion Gap 7, BUN 50 H, Creatinine 2.35 H, Estim Creat Clear Calc 24.65, Est GFR (MDRD) Af Amer 34 L, Est GFR (MDRD) Non-Af 28 L, BUN/Creatinine Ratio 21.3 H, Glucose 114 H, Calcium 8.0 L Current Medications Acetaminophen (Tylenol) 650 mg PO Q6H PRN PRN PRN Reason: FEVER [facility] Admin: 08/18/18 08:59 Dose: 300 mg Aspirin (Ecotrin) [facility] Last Admin: 08/18/18 08:59 Dose: 81 mg Ciprofloxacin HCl (Cipro) 500 mg PO DAILY [facility] Last Admin: 08/18/18 08:59 Dose: 500 mg Ergocalciferol (Vitamin D) 50,000 unit PO BURGOS [facility] Last Admin: 08/18/18 08:59 Dose: 50,000 unit Finasteride (Proscar) 5 mg PO DAILY [facility] Last Admin: 08/18/18 09:00 Dose: 5 mg Heparin Sodium (Porcine) (Heparin Na) 5,000 unit SC Q12 [facility] Last Admin: 08/18/18 22:11 Dose: 5,000 unit Hydralazine HCl (Apresoline Iv) 5 mg IV Q4H PRN PRN PRN Reason: SBP > 160 Hydralazine HCl (Apresoline) 50 mg PO TID [facility] Last Admin: 08/19/18 05:12 Dose: 50 mg Labetalol HCl (Trandate) 200 mg PO BID [facility] Last Admin: 08/18/18 22:12 Dose: 200 mg Magnesium Hydroxide (Milk Of Magnesia) 30 ml PO DAILY PRN PRN Reason: Constipation Metronidazole (Flagyl) 500 mg PO TID [facility] Last Admin: 08/19/18 05:12 Dose: 500 mg Nutritional Formula (Lactose Free) (Ensure Enlive) 120 ml PO 4X/DAY [facility] Last Admin: 08/18/18 22:12 Dose: 120 ml Ondansetron HCl (Zofran) 4 mg IV Q8H PRN PRN PRN Reason: NAUSEA Pravastatin Sodium (Pravachol) 40 mg PO QHS [facility] Last Admin: 08/18/18 22:12 Dose: 40 mg Sodium Chloride () 5 - 30 ml IV UD PRN PRN Reason: SALINE FLUSH Last Admin: 08/15/18 01:17 Dose: 5 ml Medical Necessity - Tobacco Use Smoking Status: Never smoker Assessment/Plan All Active Problems 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 BL LE Cellulitis/JOSEF on CKD/Rhabdo/metabolic encephalopathy 2/2 uremia/Chronic lymphedema - H/o lymphedema - Now with cellulitis without sepsis - Currently cx with pseudomonas and bacteroides, will switch to cipro and flagyl as the pseudomonas is longoria sensitive - Wound care consult for the lymphedema and the cellulitis, photos reviewed, no ulceration and no h/o DM to suspect osteo - IVF were discontinued because of arm swelling - Creatinine is also improving - CM for SNF authorization today 2. BPH - c/w proscar 3. Hx CVA - right sided deficits, stable - c/w asa, statin DVT ppx: heparin Diet: Regular Code Visit Inpatient E&M: 21298 Subs Hosp L2
[2018-08-19] MEDS: Aspirin E.C. 81 MG Tablet PO (09:07)
[2018-08-19] MEDS: Allopurinol 300 MG Tablet PO (09:07)
[2018-08-19] MEDS: Ciprofloxacin 500 MG Tablet PO (09:08)
[2018-08-19] MEDS: Heparin Injection (Vial) 5,000 UNIT/ML VIAL 5000 UNIT SC (09:08)
[2018-08-19] MEDS: Labetalol 200 MG Tablet PO (09:09)
[2018-08-19] MEDS: Finasteride 5 MG Tablet PO (09:09)
--- NOTE | 2018-08-19 11:58 | PCM.PN.REN ---
Patient Problems: Active and Suspected Problems Sepsis affecting skin (Acute) Rhabdomyolysis (Acute) Acute kidney injury superimposed on chronic kidney disease (Acute) Hyperkalemia (Acute) Subjective: Doing okay. No nausea No vomiting. No SOB - Physical Exam General: Cooperative, Well developed HEENT: Atraumatic Oral: Moist Mucosa Neck: Supple, No JVD Lungs: Clear to auscultation, Normal air movement, No rhonchi Cardiovascular: Regular rate, Regular Rhythm, Normal S1, Normal S2 Abdomen: Bowel Sounds Present, Soft, Non Tender Extremities: Edema Skin: No rashes Musculoskeletal: No Tenderness to Palpation of Joints or Extremities Neurological: Cranial nerves II-XII grossly intact, Neuro grossly intact Psych/Mental Status: Appropriate Vital Signs Temp Pulse Resp BP Pulse Ox 97.6 F L 37 L 16 145/64 H 98 08/19/18 09:00 08/19/18 11:01 08/19/18 09:00 08/19/18 09:00 08/19/18 09:00 Oxygen Delivery Method Room Air Weight: 74.4 kg Body Mass Index (BMI) 24.2 Intake and Output for Last 24 Hours 08/17/18 08/18/18 08/19/18 23:59 23:59 23:59 Intake Total 3473 / 3473 2166 / 2166 120 / 120 Output Total 675 / 675 150 / 150 100 / 100 Balance 2798 / 2798 2015 Microbiology Past 72 Hours 08/14/18 20:05 Gram Stain - Final Wound - Left Foot Wound Culture - Final Pseudomonas spp Gram positive collin Anaerobic Culture - Final No anaerobic bacteria isolated. 08/15/18 01:23 Blood Culture - Preliminary Blood Culture (Wb) - Anticubital Right No growth in 48 hours. 08/15/18 01:33 Blood Culture - Preliminary Blood Culture (Wb) - Anticubital Right No growth in 48 hours. 08/15/18 14:58 Urine Culture - Final Urine, Catheterized Culture exhibits no growth. 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 Baseline creatinine seems around 1.4-1.8 mg deciliter. UA showed 100 protein, occult blood 50, nitrite positive, RBCs 5-10 white cell 0-5. FeNa is 0.4% Acute kidney injury related to prerenal from dehydration due to poor oral intake. Cr improved with IVF. Currently off IVF. Last Cr trend 2.5->2.35 mg/dL Renal US is negative for hydronephrosis. Encouraged PO liquid intake Please keep mean arterial pressure more than 65. Avoid PATITO inhibitor/ARB for now. Check kidney function in the morning. 2-hyperkalemia: Related to acute kidney injury. Treated medically with D50/insulin. resolved. Check potassium level in a.m. 3- Hypernatremia . Na is 148 this morning. Encouraged PO water intake 4-Leg cellulitis. Continue Abx as per the primary service 5-hypertension: Blood pressure is acceptable. Continue the current dose of hydralazine and labetalol Please avoid PATITO inhibitor/ARB and diuretics for now. 6-BPH: Continue finasteride and Flomax. The plan of care with Dr. Oralia Meyer MD [phone]
--- NOTE | 2018-08-19 12:15 | CASEMGMT ---
Social Work Physician states he has spoke with pt and family over the weekend and they are now agreeable to short term SNF placement in [facility]. Referral made to TCU and they are able to accept pt today. SW met with pt in room and informed and he is agreeable to TCU at this time. With pt permission phone call to son to inform. No answer, VM full. SW inquired with pt if SW could call dgt and pt refused. Pt requested dgt in law be called. LADY left for Virgie Carrasco at work as pt does not have private number. Physician aware that TCU can take pt and pt to be d/c today. Plan: TCU [facility]
--- NOTE | 2018-08-19 13:09 | TREXTCAR_ITS ---
- Diet 08/15/18 10:16 Diet: Regular Diet Food consistency:: Regular Liquid Consistency:: Regular/Thin Is pt able to select menu?: No Diet Comments: supervision by staff / family[facility] - Wound(s) BILATERAL FEET Wound Type: Stasis Ulcer B lower legs Wound Type: combination of ulcered areas and superficial weeping areas Dressing Change: Adaptic and Aquacel AG right lateral ankle Wound Type: superficial open area Dressing Change: AntiMicrobial (Aquacel AG, etc) right medial ankle Wound Type: superficial open area Dressing Change: AntiMicrobial (Aquacel AG, etc) left lateral foot Wound Type: superficial ulcered area Dressing Change: AntiMicrobial (Aquacel AG, etc) left medial ankle Wound Type: cluster of superficial open areas Dressing Change: AntiMicrobial (Aquacel AG, etc) left posterior lower leg Wound Type: cluster of stasis ulcers Dressing Change: AntiMicrobial (Aquacel AG, etc) L arm Wound Type: Abrasion - Allergies/Procedures Done in Hospital Allergies/Adverse Reactions: Allergies No Known Allergies Allergy (Verified 04/13/17 14:20) - Type of Care/Length of Stay Estimated LOS: Convalescent Care Less Than 30 days Type of Care Needed: Skilled Rehab Potential: Good Prognosis: Good - Additional Orders/Day of Discharge Day of Discharge: 08/19/18 - Dietary and Speech Recommendations Dietitian Recommendations/Changes: Rec low sodium diet- consistency per [employer]. Continue Ensure Enlive w/ medpass as tolerated. Rec 1 packet Morales BID to assist w/ wound healing. Current weight as able. - Follow Up Care Primary Care Physician: Vijay Mason MD [Primary Care Provider] - Please follow up with your Primary Care Physician in: In 3-5 days after discharge
--- NOTE | 2018-08-19 13:19 | DS.PCM_ITS ---
Discharge Date and Diagnosis - Problem List Patient Problems: Active and Suspected Problems Sepsis affecting skin (Acute) Rhabdomyolysis (Acute) Acute kidney injury superimposed on chronic kidney disease (Acute) Hyperkalemia (Acute) Date of Admission: 08/14/18 Date of Discharge: 08/19/18 - Primary Discharge Diagnosis Active and Suspected Problems Sepsis affecting skin (Acute) Rhabdomyolysis (Acute) Acute kidney injury superimposed on chronic kidney disease (Acute) Hyperkalemia (Acute) - Secondary Discharge Diagnosis Chronic Problems Cellulitis (Chronic) Lymphedema of lower extremity (Chronic) Nephrolithiasis (Chronic) Gout (Chronic) CKD (chronic kidney disease), stage III (Chronic) BPH (benign prostatic hyperplasia) (Chronic) Benign hypertension (Chronic) Anemia (Chronic) Chronic renal insufficiency, stage III (moderate) (Chronic) Nonstaphylococcal scalded skin syndrome (Chronic) Arthritis (Chronic) Hospital Course and Treatment Imaging Results: CT Brain: IMPRESSION: 1. Remote left MCA distribution infarct. 2. Chronic involutional changes without acute intracranial or calvarial abnormality. 3. Soft tissue density overlying the right parietal region suggesting subcutaneous hematoma. CT C-spine: IMPRESSION: Degenerative changes of the cervical spine without acute fracture or subluxation. Consultations 08/15/18 00:18 Consult: Onc/Wound/product assurance engineer Routine Comment: Reason for Consult:: wounds on bilateral legs Nephrology Neurology Operations: None Procedures: None Summary of Care Provided: HPI: The patient is a 83 year old M with a significant history of CVA; MRSA infection; hypertension; hyperlipidemia; Gout; lymphedema; chronic bilateral leg wounds who was found on the floor of his home; confused and found to have elevated CPK; hyperkalemia; leukocytosis and possible infection of his bilateral leg wounds concerning for probable sepsis secondary to bilateral leg infection. Hospital Course: 1. BL LE Cellulitis/JOSEF on CKD/Rhabdo/metabolic encephalopathy 2/2 uremia/Chronic lymphedema - He was found on the floor at home by his son who brought him in. He was initially confused and that was felt to be d/t a metabolic encephalopathy from his elevated creatinine and rhabdo. He was started on IVF and hsi renal function progressed from JOSEF to ATN. He has continued to make urine and his creatinine was imprved to 2.35 on day of discahrge down from 3.52. Initially with his cellulitis was treated with zosyn and vanc, cx grew a pseudomonal species that was longoria-sensitive and report was called that he had bacteroides as well. He was transitioned to PO cipro and flagyl and will need to complete 4 more days of both. Also with his IVF, he was becoming hypernatremic and he was decreased to 1/2NS and then the day prior to DC he became edematous and so fluids were discontinued completely. 2. His other diagnoses were evaluated and his home medications were continued where appropriate Patient Problems: Active and Suspected Problems Sepsis affecting skin (Acute) Rhabdomyolysis (Acute) Acute kidney injury superimposed on chronic kidney disease (Acute) Hyperkalemia (Acute) - Physical Exam Vital Signs Temp Pulse Resp BP Pulse Ox 98.0 F 58 L 18 140/55 H 98 08/19/18 13:00 08/19/18 13:00 08/19/18 13:00 08/19/18 13:00 08/19/18 13:00 Oxygen Delivery Method Room Air Weight: 164 lb 0.383 oz Body Mass Index (BMI) 24.2 Intake and Output for Last 24 Hours 08/17/18 08/18/18 08/19/18 23:59 23:59 23:59 Intake Total 3473 / 3473 2166 / 2166 360 / 360 Output Total 675 / 675 150 / 150 250 / 250 Balance 2798 / 2798 2015 110 / 110 Microbiology Past 72 Hours 08/14/18 20:05 Gram Stain - Final Wound - Left Foot Wound Culture - Final Pseudomonas spp Gram positive collin Anaerobic Culture - Final No anaerobic bacteria isolated. 08/15/18 01:23 Blood Culture - Preliminary Blood Culture (Wb) - Anticubital Right No growth in 48 hours. 08/15/18 01:33 Blood Culture - Preliminary Blood Culture (Wb) - Anticubital Right No growth in 48 hours. 08/15/18 14:58 Urine Culture - Final Urine, Catheterized Culture exhibits no growth. Laboratory Tests Past 24 Hrs 08/19/18 05:50 Sodium 148 H Potassium 3.7 Chloride 117 H Carbon Dioxide 24.0 Anion Gap 7 BUN 50 H Creatinine 2.35 H Estim Creat Clear Calc 24.65 Est GFR (MDRD) Af Amer 34 L Est GFR (MDRD) Non-Af 28 L BUN/Creatinine Ratio 21.3 H Glucose 114 H Calcium 8.0 L Home Medications: Medications to take at Discharge Allopurinol 300 mg PO DAILY 10/10/16 Cholecalciferol (Vitamin D3) [Vitamin D3] 50,000 unit PO BURGOS 10/10/16 Labetalol [Trandate (Beta Lily)] 200 mg PO BID 10/10/16 Pravastatin [Pravachol] 40 mg PO QHS 10/10/16 Acetaminophen [Tylenol Tablet] 650 mg PO Q6H PRN PRN tablet 04/15/17 Finasteride [Proscar] 5 mg PO DAILY #30 tablet 04/15/17 Aspirin E.C. [Ecotrin] 81 mg PO DAILY 08/14/18 Ciprofloxacin [Cipro] 500 mg PO DAILY tablet 08/19/18 Metronidazole [Flagyl] 500 mg PO TID tablet 08/19/18 Primary Care Physician: Vijay Mason MD [Primary Care Provider] - Please follow up with your Primary Care Physician in: In 3-5 days after discharge Disposition: Shelter facility Minutes spent on discharge:: 35 Patient Condition:: Good Medical Necessity - Tobacco Use Smoking Status: Never smoker Meaningful Use Info Meaningful Use Diagnoses (Choose all that apply): None applicable Code Visit Inpatient E&M: 30926 Disch Hosp
--- NOTE | 2018-08-19 14:01 | CASEMGMT ---
Social Work Pt ready for d/c. Met with pt in room and he is agreeable to d/c today and states his dgt in law was in after SW left room earlier today and pt informed her of plan. Pt now has DIL number. Phone call to Virgie Carrasco and informed of d/c today to TCU. She is agreeable. Orders faxed to TCU and nursing aware of d/c. Plan: TCU today CRISTAL Rouse
== END 2018-08-19 14:40 | disposition skilled nursing facility (03) | DRG 682 ==
LOC: ED 19:19 → PCU 23:33
PROVIDERS: Internal Medicine; Physician Assistant; Admitting Provider Hospitalist; Emergency Provider Emergency Medicine; Family Provider Family Medicine; PCP Family Medicine; Visit Provider Family Medicine
DX: N17.0 Acute kidney failure with tubular necrosis (principal); G93.41 Metabolic encephalopathy; L03.116 Cellulitis of left lower limb; M62.82 Rhabdomyolysis; I69.351 Hemiplegia and hemiparesis following cerebral infarction affecting right dominant side; E87.0 Hyperosmolality and hypernatremia; L03.115 Cellulitis of right lower limb; E87.5 Hyperkalemia; I12.9 Hypertensive chronic kidney disease with stage 1 through stage 4 chronic kidney disease, or unspecified chronic kidney disease; N18.3 Chronic kidney disease, stage 3 (moderate); M19.90 Unspecified osteoarthritis, unspecified site; N40.0 Benign prostatic hyperplasia without lower urinary tract symptoms; M10.9 Gout, unspecified; I89.0 Lymphedema, not elsewhere classified; E86.0 Dehydration; D64.9 Anemia, unspecified; E78.5 Hyperlipidemia, unspecified
CPT/HCPCS: 36415; 70450; 71045; 72100; 72125; 76770; 80048; 80053; 81001; 82140; 82550; 82570; 83605; 84300; 84484; 85025; 87040; 87070; 87075; 87077; 87086; 87184; 87186; 87205; 87640; 92526; 93005; 94762; 97116; 97162; 97165; 97530; 97535; 99285; J7030; J7040; J7050; A4216

== ENCOUNTER 2018-08-19 14:42 | Inpatient (IN) | payer MEDICARE, OTHER, SELFPAY ==
[2018-08-19 14:45] VITALS: BP 142/55; PULSE 60; RESP 18; TEMP 36.6; O2SAT 99
--- NOTE | 2018-08-19 14:45 | NURSING ---
Pt arrived from U via bed at 1430
[2018-08-19 15:08] VITALS: BMI 27.4
[2018-08-19 15:17] VITALS: BMI 27.5
[2018-08-19] MEDS: Labetalol 200 MG Tablet PO (17:17)
--- NOTE | 2018-08-19 19:58 | PCM.HP.STD ---
Problem List (1) Metabolic encephalopathy Status: Acute (2) Cellulitis of leg Status: Acute (3) Leg ulcer Status: Chronic (4) Lymphedema Status: Chronic (5) Pleural effusion, right Status: Acute (6) Hypertension Status: Chronic (7) Benign prostatic hyperplasia Status: Chronic (8) Chronic kidney disease Status: Chronic (9) Stroke Status: Chronic (10) Hyperlipidemia Status: Chronic (11) Rhabdomyolysis Status: Acute (12) Hyperkalemia Status: Acute (13) Gout Status: Chronic (14) Sepsis Status: Acute History of Present Illness Date of Admission: 08/19/18 Chief Complaint: Here for rehabilitation, strengthening, prior to discharge home with grandson. The patient is a 83 year old Male with below past medical history presented to [facility] Emergency Department with confusion. 08/14/2018 EKG sinus rhythm with premature atrial contractions, right bundle branch block. 08/14/2018 CT cervical spine multi level disc disease without fracture, subluxation. 08/14/2018 X-ray lumbar spine degenerative changes, straightening lordosis. 08/14/2018 Chest X-ray enlarging right pleural effusion and atelectasis. 08/14/2018 CT brain shows remove left MCA infarct, right parietal hematoma, chronic involutional changes of brain. Lives alone. Found on floor, unable to get up. Generalized weakness, chills. WBC 14.3, Lactic acid 2.1. K 6.3(Hemolyzed), BUN 57, Cr 2.92. UA consistent with urinary tract infection, Troponin 0.230. CPK 2125. Normal Saline, D50, insulin, Bicarb, Zosyn, Vancomycin given. Leg, urine cultures sent. 08/14/2018 Admit to Hospital. Vancomycin, Zosyn IV for bilateral lower extremity cellulitis. IV fluids for rhabdomyolysis. Consult wound nurse for leg ulcers. 08/15/2018 Renal ultrasound showed right kidney stone, medical renal disease. 08/15/2018 Dr. Nelson consulted, added Hydralazine for blood pressure control. 08/15/2018 Dr. Drake recommended repeating CT scan of brain. 08/16/2018 Leg culture growing Pseudomonas. Continue Zosyn, Vancomycin. CK trending down. 08/17/2018 Leg cultures growing Pseudomonas, Bacteroides. Antibiotics switched to Cipro, Flagyl. IV fluids stopped due to edema. 08/19/2018 Admit to TCU with debility, here for rehabilitation, strengthening, prior to discharge home with grandson. Past Medical History Past Medical History (Chronic Problems): Chronic Problems Leg ulcer (Chronic) Lymphedema (Chronic) Hypertension (Chronic) Benign prostatic hyperplasia (Chronic) Chronic kidney disease (Chronic) Stroke (Chronic) Hyperlipidemia (Chronic) Cellulitis (Chronic) Lymphedema of lower extremity (Chronic) Nephrolithiasis (Chronic) Gout (Chronic) CKD (chronic kidney disease), stage III (Chronic) BPH (benign prostatic hyperplasia) (Chronic) Benign hypertension (Chronic) Anemia (Chronic) Chronic renal insufficiency, stage III (moderate) (Chronic) Nonstaphylococcal scalded skin syndrome (Chronic) Arthritis (Chronic) Allergies No Known Allergies Allergy (Verified 04/13/17 14:20) Home Medications: Ambulatory Orders Medication Instructions Recorded Allopurinol 300 mg PO DAILY 10/10/16 Cholecalciferol (Vitamin D3) 50,000 unit PO BURGOS 10/10/16 [Vitamin D3] Labetalol [Trandate (Beta Lily)] 200 mg PO BID 10/10/16 Pravastatin [Pravachol] 40 mg PO QHS 10/10/16 Acetaminophen [Tylenol Tablet] 650 mg PO Q6H PRN PRN tablet 04/15/17 Aspirin E.C. [Ecotrin] 81 mg PO DAILY 08/14/18 Ciprofloxacin [Cipro] 500 mg PO DAILY 08/19/18 Finasteride [Proscar] 5 mg PO DAILY 08/19/18 Metronidazole [Flagyl] 500 mg PO TID 08/19/18 Surgical History: - - Bilateral carotid endarectomy Psychiatric History: No pertinent psych hx Lives: Alone Smoking Status: Never smoker Tobacco Use: Non-smoker Alcohol: None Drugs: None - *Family History Paternal Family History: Family History (Last Reviewed 08/15/18 @ 11:35 by Bernardino Drake MD) Mother Hyperthyroidism Father Diabetes Aortic aneurysm rupture History Items: Diabetes Maternal Family History: Family History (Last Reviewed 08/15/18 @ 11:35 by Bernardino Drake MD) Mother Hyperthyroidism Father Diabetes Aortic aneurysm rupture History Items: Heart Disease Review of Systems Constitutional: Denies: Chills, Fever, Weight Change HEENT: Denies: Head Aches, Sinus Congestion, Sinus Drainage Cardiovascular: Denies: Chest Pain, Palpitations Respiratory: Denies: Cough, Shortness of breath at rest, Sputum production Gastrointestinal: Denies: Abdominal Pain, Nausea, Vomiting Genitourinary: Denies: Dysuria Musculoskeletal: Denies: Joint Pain, Joint Tenderness Skin: Denies: Rash, Wounds Neurological: Denies: Numbness, Tingling, Focal weakness Psychiatric: Denies: Anxiety, Depression, Homicidal Ideations, Suicidal Ideations Hematologic/ Lymphatic: Denies: Easy Bruising, Easy Bleeding VTE Information - Inpt Only VTE Present on Admission: No VTE Mechan Device Prophylaxis: Knee High JEAN PAUL Hose VTE Pharm Prophylaxis ordered?: Yes Patient Problems: Active and Suspected Problems Metabolic encephalopathy (Acute) Cellulitis of leg (Acute) Pleural effusion, right (Acute) - Physical Exam General: Alert, Oriented x3, Cooperative HEENT: Atraumatic, PERRLA, EOMI, Normocephalic Neck: Supple, No JVD, Negative Carotid Bruits Lungs: Clear to auscultation, Normal air movement Cardiovascular: Regular rate, No murmurs Abdomen: Bowel Sounds Present, Soft, Non Tender Extremities: Capillary Refill Less than 3 Seconds, - - All 4 extremities wrapped with Kerlix, PATITO wraps. Skin: No rashes, No breakdown Musculoskeletal: No Tenderness to Palpation of Joints or Extremities Neurological: Cranial nerves II-XII grossly intact Psych/Mental Status: Normal Affect, Appropriate Vital Signs Temp Pulse Resp BP Pulse Ox 97.8 F 60 18 142/55 H 99 08/19/18 14:45 08/19/18 14:45 08/19/18 14:45 08/19/18 14:45 08/19/18 14:45 Oxygen Delivery Method Room Air Weight: 84.368 kg Body Mass Index (BMI) 27.4 Intake and Output for Last 24 Hours 08/17/18 08/18/18 08/19/18 23:59 23:59 23:59 Intake Total 440 / 440 Balance 440 / 440 Assessment/Plan All Active Problems Staphylococcal scalded skin syndrome (Acute) 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) Sepsis affecting skin (Acute) Rhabdomyolysis (Acute) Acute kidney injury superimposed on chronic kidney disease (Acute) Hyperkalemia (Acute) Metabolic encephalopathy (Acute) Cellulitis of leg (Acute) Pleural effusion, right (Acute) Non-pressure chronic ulcer of other part of right foot limited to breakdown of skin (Resolved) Wound infection (Acute) Confusion (Acute) Sepsis (Acute) 83 year old male with below past medical history hospitalized for metabolic encephalopathy, complicated by bilateral lower extremity cellulitis, rhabdomyolysis, acute on chronic kidney failure, sepsis, hyperkalemia, admitted to TCU with debility, here for rehabilitation, strengthening, prior to discharge home with grandson. Debility - PT/OT. Dysphagia - ST. Pain - Tylenol 1000MG Q8H PRN mild pain. Bowel - Miralax 17GM daily, Dulcolax 10MG PO daily PRN. Pneumonia vaccination - Administer Prevnar 13. DVT prophylaxis - Lovenox 30MG sc daily. Leg ulcers - dressings per wound team, Morales 1 packet twice daily. Gout - Allopurinol 300MG daily. Stroke - Aspirin 81MG daily. Cellulitis of legs - Cipro 500MG daily thru 08/24/2018, Flagyl 500MG TID thru 08/23/2018. Vitamin D deficiency - D2 50,000 units per week. BPH - Finasteride 5MG daily. Hypertension - Labetalol 200MG BID. Skin irritation - Calmoseptine BID. Hyperlipidemia - Pravastatin 40MG QHS, consider high intensity statin with history of left MCA infarct.
--- NOTE | 2018-08-19 20:10 | HP.PCM_ITS ---
Problem List (1) Metabolic encephalopathy Status: Acute (2) Cellulitis of leg Status: Acute (3) Leg ulcer Status: Chronic (4) Lymphedema Status: Chronic (5) Pleural effusion, right Status: Acute (6) Hypertension Status: Chronic (7) Benign prostatic hyperplasia Status: Chronic (8) Chronic kidney disease Status: Chronic (9) Stroke Status: Chronic (10) Hyperlipidemia Status: Chronic (11) Rhabdomyolysis Status: Acute (12) Hyperkalemia Status: Acute (13) Gout Status: Chronic (14) Sepsis Status: Acute History of Present Illness Date of Admission: 08/19/18 Chief Complaint: Here for rehabilitation, strengthening, prior to discharge home with grandson. The patient is a 83 year old Male with below past medical history presented to [facility] Emergency Department with confusion. 08/14/2018 EKG sinus rhythm with premature atrial contractions, right bundle branch block. 08/14/2018 CT cervical spine multi level disc disease without fracture, subluxation. 08/14/2018 X-ray lumbar spine degenerative changes, straightening lordosis. 08/14/2018 Chest X-ray enlarging right pleural effusion and atelectasis. 08/14/2018 CT brain shows remove left MCA infarct, right parietal hematoma, chronic involutional changes of brain. Lives alone. Found on floor, unable to get up. Generalized weakness, chills. WBC 14.3, Lactic acid 2.1. K 6.3(Hemolyzed), BUN 57, Cr 2.92. UA consistent with urinary tract infection, Troponin 0.230. CPK 2125. Normal Saline, D50, insulin, Bicarb, Zosyn, Vancomycin given. Leg, urine cultures sent. 08/14/2018 Admit to Hospital. Vancomycin, Zosyn IV for bilateral lower extremity cellulitis. IV fluids for rhabdomyolysis. Consult wound nurse for leg ulcers. 08/15/2018 Renal ultrasound showed right kidney stone, medical renal disease. 08/15/2018 Dr. Nelson consulted, added Hydralazine for blood pressure control. 08/15/2018 Dr. Drake recommended repeating CT scan of brain. 08/16/2018 Leg culture growing Pseudomonas. Continue Zosyn, Vancomycin. CK trending down. 08/17/2018 Leg cultures growing Pseudomonas, Bacteroides. Antibiotics switched to Cipro, Flagyl. IV fluids stopped due to edema. 08/19/2018 Admit to TCU with debility, here for rehabilitation, strengthening, prior to discharge home with grandson. Past Medical History Past Medical History (Chronic Problems): Chronic Problems Leg ulcer (Chronic) Lymphedema (Chronic) Hypertension (Chronic) Benign prostatic hyperplasia (Chronic) Chronic kidney disease (Chronic) Stroke (Chronic) Hyperlipidemia (Chronic) Cellulitis (Chronic) Lymphedema of lower extremity (Chronic) Nephrolithiasis (Chronic) Gout (Chronic) CKD (chronic kidney disease), stage III (Chronic) BPH (benign prostatic hyperplasia) (Chronic) Benign hypertension (Chronic) Anemia (Chronic) Chronic renal insufficiency, stage III (moderate) (Chronic) Nonstaphylococcal scalded skin syndrome (Chronic) Arthritis (Chronic) Allergies No Known Allergies Allergy (Verified 04/13/17 14:20) Home Medications: Ambulatory Orders Medication Instructions Recorded Allopurinol 300 mg PO DAILY 10/10/16 Cholecalciferol (Vitamin D3) 50,000 unit PO BURGOS 10/10/16 [Vitamin D3] Labetalol [Trandate (Beta Lily)] 200 mg PO BID 10/10/16 Pravastatin [Pravachol] 40 mg PO QHS 10/10/16 Acetaminophen [Tylenol Tablet] 650 mg PO Q6H PRN PRN tablet 04/15/17 Aspirin E.C. [Ecotrin] 81 mg PO DAILY 08/14/18 Ciprofloxacin [Cipro] 500 mg PO DAILY 08/19/18 Finasteride [Proscar] 5 mg PO DAILY 08/19/18 Metronidazole [Flagyl] 500 mg PO TID 08/19/18 Surgical History: - - Bilateral carotid endarectomy Psychiatric History: No pertinent psych hx Lives: Alone Smoking Status: Never smoker Tobacco Use: Non-smoker Alcohol: None Drugs: None - *Family History Paternal Family History: Family History (Last Reviewed 08/15/18 @ 11:35 by Bernardino Drake MD) Mother Hyperthyroidism Father Diabetes Aortic aneurysm rupture History Items: Diabetes Maternal Family History: Family History (Last Reviewed 08/15/18 @ 11:35 by Bernardino Drake MD) Mother Hyperthyroidism Father Diabetes Aortic aneurysm rupture History Items: Heart Disease Review of Systems Constitutional: Denies: Chills, Fever, Weight Change HEENT: Denies: Head Aches, Sinus Congestion, Sinus Drainage Cardiovascular: Denies: Chest Pain, Palpitations Respiratory: Denies: Cough, Shortness of breath at rest, Sputum production Gastrointestinal: Denies: Abdominal Pain, Nausea, Vomiting Genitourinary: Denies: Dysuria Musculoskeletal: Denies: Joint Pain, Joint Tenderness Skin: Denies: Rash, Wounds Neurological: Denies: Numbness, Tingling, Focal weakness Psychiatric: Denies: Anxiety, Depression, Homicidal Ideations, Suicidal Ideations Hematologic/ Lymphatic: Denies: Easy Bruising, Easy Bleeding VTE Information - Inpt Only VTE Present on Admission: No VTE Mechan Device Prophylaxis: Knee High JEAN PAUL Hose VTE Pharm Prophylaxis ordered?: Yes Patient Problems: Active and Suspected Problems Metabolic encephalopathy (Acute) Cellulitis of leg (Acute) Pleural effusion, right (Acute) - Physical Exam General: Alert, Oriented x3, Cooperative HEENT: Atraumatic, PERRLA, EOMI, Normocephalic Neck: Supple, No JVD, Negative Carotid Bruits Lungs: Clear to auscultation, Normal air movement Cardiovascular: Regular rate, No murmurs Abdomen: Bowel Sounds Present, Soft, Non Tender Extremities: Capillary Refill Less than 3 Seconds, - - All 4 extremities wrapped with Kerlix, PATITO wraps. Skin: No rashes, No breakdown Musculoskeletal: No Tenderness to Palpation of Joints or Extremities Neurological: Cranial nerves II-XII grossly intact Psych/Mental Status: Normal Affect, Appropriate Vital Signs Temp Pulse Resp BP Pulse Ox 97.8 F 60 18 142/55 H 99 08/19/18 14:45 08/19/18 14:45 08/19/18 14:45 08/19/18 14:45 08/19/18 14:45 Oxygen Delivery Method Room Air Weight: 84.368 kg Body Mass Index (BMI) 27.4 Intake and Output for Last 24 Hours 08/17/18 08/18/18 08/19/18 23:59 23:59 23:59 Intake Total 440 / 440 Balance 440 / 440 Assessment/Plan All Active Problems Staphylococcal scalded skin syndrome (Acute) 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) Sepsis affecting skin (Acute) Rhabdomyolysis (Acute) Acute kidney injury superimposed on chronic kidney disease (Acute) Hyperkalemia (Acute) Metabolic encephalopathy (Acute) Cellulitis of leg (Acute) Pleural effusion, right (Acute) Non-pressure chronic ulcer of other part of right foot limited to breakdown of skin (Resolved) Wound infection (Acute) Confusion (Acute) Sepsis (Acute) 83 year old male with below past medical history hospitalized for metabolic encephalopathy, complicated by bilateral lower extremity cellulitis, rhabdomyolysis, acute on chronic kidney failure, sepsis, hyperkalemia, admitted to TCU with debility, here for rehabilitation, strengthening, prior to discharge home with grandson. * Debility - PT/OT. * Dysphagia - ST. * Pain - Tylenol 1000MG Q8H PRN mild pain. * Bowel - Miralax 17GM daily, Dulcolax 10MG PO daily PRN. * Pneumonia vaccination - Administer Prevnar 13. * DVT prophylaxis - Lovenox 30MG sc daily. * Leg ulcers - dressings per wound team, Morales 1 packet twice daily. * Gout - Allopurinol 300MG daily. * Stroke - Aspirin 81MG daily. * Cellulitis of legs - Cipro 500MG daily thru 08/24/2018, Flagyl 500MG TID thru 08/23/2018. * Vitamin D deficiency - D2 50,000 units per week. * BPH - Finasteride 5MG daily. * Hypertension - Labetalol 200MG BID. * Skin irritation - Calmoseptine BID. * Hyperlipidemia - Pravastatin 40MG QHS, consider high intensity statin with history of left MCA infarct.
[2018-08-19] MEDS: Pravastatin 40 MG Tablet PO (20:45)
[2018-08-19] MEDS: metroNIDAZOLE 500 MG Tablet PO (20:45)
[2018-08-19] MEDS: Menthol/Lanolin/Calamine/Znox 113 GM Tube 1 APPLIC TOPICAL (20:46)
[2018-08-20] MEDS: Menthol/Lanolin/Calamine/Znox 113 GM Tube 1 APPLIC TOPICAL ×2 (05:45→20:50)
[2018-08-20] MEDS: Labetalol 200 MG Tablet PO ×2 (05:46→17:37)
[2018-08-20] MEDS: Allopurinol 300 MG Tablet PO (05:47)
[2018-08-20] MEDS: Finasteride 5 MG Tablet PO (05:47)
[2018-08-20] MEDS: metroNIDAZOLE 500 MG Tablet PO ×3 (05:47→20:46)
[2018-08-20] MEDS: Polyethylene Glycol 3350 17 GM PACKET PO (05:48)
[2018-08-20] MEDS: Enoxaparin 30 MG/0.3 ML Syringe SC (05:48)
[2018-08-20] MEDS: Ciprofloxacin 500 MG Tablet PO (05:55)
[2018-08-20 06:13] LABS: Anion Gap 5 (5-15); BUN 49 mg/dL (7-18); BUN/Creat Ratio 23.4 RATIO (10-20); Calcium,Total 7.9 mg/dL (8.5-10.1); Chloride 117 mmol/L (98-107); Creatinine, Serum 2.09 mg/dL (0.70-1.30); EST Glomerular Filtration Rate 33 mL/min (>60); Est Glom Filt Rate - Afr Amer 39 mL/min (>60); Estimated Creatinine Clearance 27.72 ml/min; Glucose 100 mg/dL (74-106); Potassium 4.1 mmol/L (3.5-5.1); Sodium Level 148 mmol/L (136-145)
[2018-08-20 06:34] LABS: Absolute Lymphocyte Count 0.56 X10^3/ul (0.83-4.51); Absolute Neutrophil Count 3.8 X10^3/uL (2.0-7.7); Basophil# 0.01 X10^3/uL; Basophil% 0.2 % (0-1); Eosinophil# 0.22 X10^3/uL; Eosinophils% 4.5 % (0-5); Hematocrit 28.3 % (40-54); Hemoglobin 8.5 g/dl (13.0-16.5); Lymphocyte # 0.56 X10^3/ul (4.0); Lymphocyte % 11.5 % (19-41); Mean Corpuscular Hgb 28.4 pg (27.0-32.0); Mean Corpuscular Volume 94.6 fL (80-94); Mean Platelet Vol. 10.6 fl (6.2-12.0); Monocyte# 0.23 X10^3/uL; Monocyte% 4.7 % (0-10); Neutrophil # 3.81 X10^3/uL (2.7-7.7); Neutrophil % 78.7 % (47-70); Platelet Count 128 K/mm3 (150-450); RBC Distribution Width CV 14.5 % (11.6-14.6); RBC Distribution Width SD 47.4 fl (35.1-43.9); Red Blood Count 2.99 M/mm3 (4.6-6.2); White Blood Count 4.9 K/mm3 (4.4-11.0)
[2018-08-20 06:37] LABS: Differential Indicated SCAN CRITERIA MET; POSITIVE COUNT NO; POSITIVE DIFFERENTIAL YES; POSITIVE MORPHOLOGY NO
[2018-08-20 07:18] LABS: Differential Comment SCANNED
[2018-08-20] MEDS: Aspirin E.C. 81 MG Tablet PO (08:04)
--- NOTE | 2018-08-20 08:23 | NURSING ---
NO for ferrex PO daily.
--- NOTE | 2018-08-20 13:54 | PHA.CONS_ITS ---
<Kamron Heard D - Last Filed: 08/20/18 13:50> Progress Note - Pharmacy Subjective: TCU Admission Objective: Allergies No Known Allergies Allergy (Verified 04/13/17 14:20) Current Medications Generic Name Dose Route Start Last Admin Trade Name Freq PRN Reason Stop Dose Admin Acetaminophen 1,000 mg 08/19/18 20:23 Tylenol PO Q8H PRN MILD PAIN (1-3/10) Allopurinol 300 mg 08/20/18 06:00 08/20/18 05:47 Zyloprim PO 300 mg DAILY ANDRE Administration Aspirin 81 mg 08/20/18 08:00 08/20/18 08:04 Ecotrin PO 81 mg DAILY@0800 [facility] Administration Bisacodyl 10 mg 08/19/18 20:22 Dulcolax PO DAILY PRN Constipation Calamine/Phenol 1 applic 08/19/18 22:00 08/20/18 05:45 Calmoseptine Ointment TOPICAL 1 applicatio [facility] Administration Protocol Ciprofloxacin HCl 500 mg 08/20/18 06:00 08/20/18 05:55 Cipro PO 08/24/18 06:01 500 mg DAILY [facility] Administration Enoxaparin Sodium 30 mg 08/20/18 06:00 08/20/18 05:48 Lovenox SC 30 mg DAILY@0600 [facility] Administration Ergocalciferol 50,000 unit 08/25/18 10:00 Vitamin D PO BURGOS [facility] Finasteride 5 mg 08/20/18 06:00 08/20/18 05:47 Proscar PO 5 mg DAILY [facility] Administration Labetalol HCl 200 mg 08/19/18 18:00 08/20/18 05:46 Trandate PO 200 mg BID [facility] Administration Metronidazole 500 mg 08/19/18 22:00 08/20/18 05:47 Flagyl PO 08/23/18 22:01 500 mg TID [facility] Administration Nutritional Formula 1 packet 08/19/18 17:00 08/20/18 08:04 Morales - [place] Flavor PO 1 packet BIDCM [facility] Administration Polyethylene Glycol 17 gm 08/20/18 06:00 08/20/18 05:48 Miralax PO 17 gm DAILY [facility] Administration Polysaccharide Iron Complex 150 mg 08/21/18 08:00 Ferrex 150 PO DAILYCM [facility] Pravastatin Sodium 40 mg 08/19/18 22:00 08/19/18 20:45 Pravachol PO 40 mg QHS ANDRE Administration Tuberculin PPD 5 tu 08/27/18 10:00 Tubersol, Aplisol, Ppd ID 08/27/18 10:01 X1 ONE Problem List Metabolic encephalopathy (Acute) Cellulitis of leg (Acute) Leg ulcer (Chronic) Lymphedema (Chronic) Pleural effusion, right (Acute) Hypertension (Chronic) Benign prostatic hyperplasia (Chronic) Chronic kidney disease (Chronic) Stroke (Chronic) Hyperlipidemia (Chronic) Vital Signs Temp Pulse Resp BP Pulse Ox 97.8 F 60 18 142/55 H 99 08/19/18 14:45 08/19/18 14:45 08/19/18 14:45 08/19/18 14:45 08/19/18 14:45 Oxygen Delivery Method Room Air Weight: 85.36 kg Body Mass Index (BMI) 27.4 Sodium 148 mmol/L (136-145) H 08/20/18 05:30 Potassium 4.1 mmol/L (3.5-5.1) 08/20/18 05:30 Chloride 117 mmol/L (98-107) H 08/20/18 05:30 Carbon Dioxide 26.0 mmol/L (21.0-32.0) 08/20/18 05:30 Anion Gap 5 (5-15) 08/20/18 05:30 BUN 49 mg/dL (7-18) H 08/20/18 05:30 Creatinine 2.09 mg/dL (0.70-1.30) H 08/20/18 05:30 Est GFR (MDRD) Af Amer 39 mL/min (>60) L 08/20/18 05:30 Est GFR (MDRD) Non-Af 33 mL/min (>60) L 08/20/18 05:30 BUN/Creatinine Ratio 23.4 RATIO (10-20) H 08/20/18 05:30 Glucose 100 mg/dL (74-106) 08/20/18 05:30 Assessment/Plan: 1) Pain APAP for mild pain. Continue to monitor prn medication use, daily pain scores. 2) HTN/Hx Stroke ASA, pravastatin, labetalol. Continue to monitor lipids, s/s stroke, BP/HR. 3) ID Ciprofloxaxin, metronidazole. Continue to monitor s/s infection. 4) DVT PPx Enoxaparin daily. Continue to monitor s/s bleeding/clot. 5) Nutrition D, Fe, Morales. Continue to monitor clinically. 6) BPH Finasteride daily. Continue to monitor symptoms. 7) Gout Allopurinol daily. Continue to monitor gout symptoms. Psychotropic Medications: None Unnecessary Medications: None Bowel Regimen: 8) PEG daily, prn bisacodyl. Continue to monitor prn medication use, for constipation/diarrhea. Date of Note:: 08/20/18 - Provider Comments Provider responsibility: Provider responsible to enter orders to implement recommendations <Christiano Boss Chi - Last Filed: 08/20/18 18:02> Progress Note - Pharmacy Subjective: [] Objective: Allergies No Known Allergies Allergy (Verified 04/13/17 14:20) Current Medications Generic Name Dose Route Start Last Admin Trade Name Freq PRN Reason Stop Dose Admin Acetaminophen 1,000 mg 08/19/18 20:23 Tylenol PO Q8H PRN MILD PAIN (1-3/10) Allopurinol 300 mg 08/20/18 06:00 08/20/18 05:47 Zyloprim PO 300 mg DAILY ANDRE Administration Aspirin 81 mg 08/20/18 08:00 08/20/18 08:04 Ecotrin PO 81 mg DAILY@0800 [facility] Administration Bisacodyl 10 mg 08/19/18 20:22 Dulcolax PO DAILY PRN Constipation Calamine/Phenol 1 applic 08/19/18 22:00 08/20/18 05:45 Calmoseptine Ointment TOPICAL 1 applicatio [facility] Administration Protocol Ciprofloxacin HCl 500 mg 08/20/18 06:00 08/20/18 05:55 Cipro PO 08/24/18 06:01 500 mg DAILY ANDRE Administration Enoxaparin Sodium 30 mg 08/20/18 06:00 08/20/18 05:48 Lovenox SC 30 mg DAILY@0600 [facility] Administration Ergocalciferol 50,000 unit 08/25/18 10:00 Vitamin D PO BURGOS [facility] Finasteride 5 mg 08/20/18 06:00 08/20/18 05:47 Proscar PO 5 mg DAILY ANDRE Administration Labetalol HCl 200 mg 08/19/18 18:00 08/20/18 17:37 Trandate PO 200 mg BID ANDRE Administration Metronidazole 500 mg 08/19/18 22:00 08/20/18 13:50 Flagyl PO 08/23/18 22:01 500 mg TID ANDRE Administration Nutritional Formula 1 packet 08/19/18 17:00 08/20/18 17:36 Morales - [place] Flavor PO 1 packet BIDCM [facility] Administration Polyethylene Glycol 17 gm 08/20/18 06:00 08/20/18 05:48 Miralax PO 17 gm DAILY ANDRE Administration Polysaccharide Iron Complex 150 mg 08/21/18 08:00 Ferrex 150 PO DAILYCM [facility] Pravastatin Sodium 40 mg 08/19/18 22:00 08/19/18 20:45 Pravachol PO 40 mg QHS ANDRE Administration Tuberculin PPD 5 tu 08/27/18 10:00 Tubersol, Aplisol, Ppd ID 08/27/18 10:01 X1 ONE Problem List Metabolic encephalopathy (Acute) Cellulitis of leg (Acute) Leg ulcer (Chronic) Lymphedema (Chronic) Pleural effusion, right (Acute) Hypertension (Chronic) Benign prostatic hyperplasia (Chronic) Chronic kidney disease (Chronic) Stroke (Chronic) Hyperlipidemia (Chronic) Vital Signs Temp Pulse Resp BP Pulse Ox 98.3 F 56 L 16 149/58 H 99 08/20/18 15:36 08/20/18 15:36 08/20/18 15:36 08/20/18 15:36 08/20/18 15:36 Oxygen Delivery Method Room Air Weight: 85.36 kg Body Mass Index (BMI) 27.4 Sodium 148 mmol/L (136-145) H 08/20/18 05:30 Potassium 4.1 mmol/L (3.5-5.1) 08/20/18 05:30 Chloride 117 mmol/L (98-107) H 08/20/18 05:30 Carbon Dioxide 26.0 mmol/L (21.0-32.0) 08/20/18 05:30 Anion Gap 5 (5-15) 08/20/18 05:30 BUN 49 mg/dL (7-18) H 08/20/18 05:30 Creatinine 2.09 mg/dL (0.70-1.30) H 08/20/18 05:30 Est GFR (MDRD) Af Amer 39 mL/min (>60) L 08/20/18 05:30 Est GFR (MDRD) Non-Af 33 mL/min (>60) L 08/20/18 05:30 BUN/Creatinine Ratio 23.4 RATIO (10-20) H 08/20/18 05:30 Glucose 100 mg/dL (74-106) 08/20/18 05:30 Assessment/Plan: Psychotropic Medications: Unnecessary Medications: Bowel Regimen: - Provider Comments Provider responsibility: Provider responsible to enter orders to implement recommendations Provider Comments to Recommendations by Pharmacy: Agree
[2018-08-20 15:36] VITALS: BP 149/58; PULSE 56; RESP 16; TEMP 36.8; O2SAT 99
[2018-08-20] MEDS: Tuberculin,Purif.prot.deriv. 50 TU/ML Vial 5 ML ID (17:36)
--- NOTE | 2018-08-20 18:33 | NURSING ---
Per Dr. Perez's office, patient to get injection of Procrit every 2 weeks while at hospital.
[2018-08-20] MEDS: Pravastatin 40 MG Tablet PO (20:46)
[2018-08-21] MEDS: Finasteride 5 MG Tablet PO (05:06)
[2018-08-21] MEDS: Labetalol 200 MG Tablet PO ×2 (05:06→18:02)
[2018-08-21] MEDS: Ciprofloxacin 500 MG Tablet PO (05:06)
[2018-08-21] MEDS: Allopurinol 300 MG Tablet PO (05:06)
[2018-08-21] MEDS: metroNIDAZOLE 500 MG Tablet PO ×3 (05:06→22:10)
[2018-08-21] MEDS: Menthol/Lanolin/Calamine/Znox 113 GM Tube 1 APPLIC TOPICAL ×2 (05:06→22:10)
[2018-08-21] MEDS: Enoxaparin 30 MG/0.3 ML Syringe SC (05:10)
[2018-08-21] MEDS: Polyethylene Glycol 3350 17 GM PACKET PO (05:25)
[2018-08-21 07:20] VITALS: PULSE 78; RESP 16; O2SAT 93
[2018-08-21] MEDS: Aspirin E.C. 81 MG Tablet PO (07:47)
[2018-08-21] MEDS: Iron Polysaccharide Complex 150 MG CAPSULE PO (07:47)
[2018-08-21 16:00] VITALS: BP 107/58; PULSE 60; RESP 16; TEMP 36.8; O2SAT 99
[2018-08-21] MEDS: Pravastatin 40 MG Tablet PO (22:10)
[2018-08-22] MEDS: Menthol/Lanolin/Calamine/Znox 113 GM Tube 1 APPLIC TOPICAL ×2 (06:41→21:53)
[2018-08-22] MEDS: Ciprofloxacin 500 MG Tablet PO (06:42)
[2018-08-22] MEDS: metroNIDAZOLE 500 MG Tablet PO ×3 (06:42→21:51)
[2018-08-22] MEDS: Labetalol 200 MG Tablet PO ×2 (06:42→17:34)
[2018-08-22] MEDS: Allopurinol 300 MG Tablet PO (06:42)
[2018-08-22] MEDS: Finasteride 5 MG Tablet PO (06:42)
[2018-08-22] MEDS: Enoxaparin 30 MG/0.3 ML Syringe SC (06:43)
[2018-08-22] MEDS: Iron Polysaccharide Complex 150 MG CAPSULE PO (08:21)
[2018-08-22] MEDS: Aspirin E.C. 81 MG Tablet PO (08:21)
--- NOTE | 2018-08-22 08:45 | NURSING ---
wound photo: right lateral lower leg/ankle/foot
--- NOTE | 2018-08-22 08:46 | NURSING ---
wound photo: left posterior lower leg
[2018-08-22 10:00] VITALS: PULSE 80; RESP 18; O2SAT 94
[2018-08-22 16:00] VITALS: BP 177/63; PULSE 58; RESP 20; TEMP 36.7; O2SAT 100
[2018-08-22] MEDS: Pravastatin 40 MG Tablet PO (21:53)
[2018-08-23] MEDS: Allopurinol 300 MG Tablet PO (05:33)
[2018-08-23] MEDS: Ciprofloxacin 500 MG Tablet PO (05:33)
[2018-08-23] MEDS: Labetalol 200 MG Tablet PO ×2 (05:33→16:48)
[2018-08-23] MEDS: metroNIDAZOLE 500 MG Tablet PO ×3 (05:34→21:40)
[2018-08-23] MEDS: Menthol/Lanolin/Calamine/Znox 113 GM Tube 1 APPLIC TOPICAL ×2 (05:34→21:40)
[2018-08-23] MEDS: Enoxaparin 30 MG/0.3 ML Syringe SC (05:35)
[2018-08-23] MEDS: Finasteride 5 MG Tablet PO (05:37)
[2018-08-23] MEDS: Aspirin E.C. 81 MG Tablet PO (09:07)
[2018-08-23] MEDS: Iron Polysaccharide Complex 150 MG CAPSULE PO (09:07)
--- NOTE | 2018-08-23 13:08 | CASEMGMT ---
Addendum entered by Eloise Bejarano 08/23/18 14:46: Review and approved school social worker student documentation. CRISTAL Martínez SPIN TANK TENDER Original Note: Brief interview for mental status (BIMS) and mood (PHQ-9) completed on this day. BIMS score 15/15. PHQ-9 score 12/25. Dave Downey social work student
[2018-08-23 16:00] VITALS: BP 152/64; PULSE 70; RESP 20; TEMP 36.4; O2SAT 99
[2018-08-23 21:00] VITALS: PULSE 74; RESP 20; O2SAT 94
[2018-08-23] MEDS: Pravastatin 40 MG Tablet PO (21:40)
[2018-08-24] MEDS: Ciprofloxacin 500 MG Tablet PO (06:42)
[2018-08-24] MEDS: Menthol/Lanolin/Calamine/Znox 113 GM Tube 1 APPLIC TOPICAL ×2 (06:42→20:17)
[2018-08-24] MEDS: Enoxaparin 30 MG/0.3 ML Syringe SC (06:42)
[2018-08-24] MEDS: Labetalol 200 MG Tablet PO ×2 (06:43→17:06)
[2018-08-24] MEDS: Allopurinol 300 MG Tablet PO (06:43)
[2018-08-24] MEDS: Finasteride 5 MG Tablet PO (06:43)
[2018-08-24] MEDS: Iron Polysaccharide Complex 150 MG CAPSULE PO (08:09)
[2018-08-24] MEDS: Aspirin E.C. 81 MG Tablet PO (08:09)
[2018-08-24 10:00] VITALS: PULSE 78; RESP 20; O2SAT 95
[2018-08-24 15:23] VITALS: BP 172/54; PULSE 55; RESP 16; TEMP 36.7; O2SAT 95
[2018-08-24] MEDS: Pravastatin 40 MG Tablet PO (20:17)
[2018-08-25] MEDS: Menthol/Lanolin/Calamine/Znox 113 GM Tube 1 APPLIC TOPICAL ×2 (05:43→19:53)
[2018-08-25] MEDS: Labetalol 200 MG Tablet PO ×2 (05:44→17:49)
[2018-08-25] MEDS: Finasteride 5 MG Tablet PO (05:44)
[2018-08-25] MEDS: Allopurinol 300 MG Tablet PO (05:44)
[2018-08-25] MEDS: Enoxaparin 30 MG/0.3 ML Syringe SC (05:45)
[2018-08-25 07:00] VITALS: PULSE 72; RESP 18
[2018-08-25] MEDS: Iron Polysaccharide Complex 150 MG CAPSULE PO (07:34)
[2018-08-25] MEDS: Aspirin E.C. 81 MG Tablet PO (07:34)
[2018-08-25 15:24] VITALS: BP 153/65; PULSE 60; RESP 16; TEMP 36.8; O2SAT 99
[2018-08-25] MEDS: Pravastatin 40 MG Tablet PO (19:54)
[2018-08-26] MEDS: Finasteride 5 MG Tablet PO (05:13)
[2018-08-26] MEDS: Menthol/Lanolin/Calamine/Znox 113 GM Tube 1 APPLIC TOPICAL ×2 (05:13→21:14)
[2018-08-26] MEDS: Labetalol 200 MG Tablet PO ×2 (05:14→17:10)
[2018-08-26] MEDS: Allopurinol 300 MG Tablet PO (05:14)
[2018-08-26] MEDS: Enoxaparin 30 MG/0.3 ML Syringe SC (05:14)
[2018-08-26] MEDS: Iron Polysaccharide Complex 150 MG CAPSULE PO (07:56)
[2018-08-26] MEDS: Aspirin E.C. 81 MG Tablet PO (07:56)
[2018-08-26 10:50] VITALS: PULSE 86; RESP 18; O2SAT 95
--- NOTE | 2018-08-26 11:21 | NURSING ---
DRESSINGS DONE BY HAL SCHNEIDER WOUND NURSE.
--- NOTE | 2018-08-26 13:35 | NURSING ---
wound photo: bilateral lower legs
--- NOTE | 2018-08-26 13:36 | NURSING ---
wound photo: left posterior lower leg
--- NOTE | 2018-08-26 14:04 | NURSING ---
Left message with Claudine per request of therapy for appointment for hair cut.
[2018-08-26 15:06] VITALS: BP 155/68; PULSE 66; RESP 18; TEMP 36.7; O2SAT 98
--- NOTE | 2018-08-26 18:23 | NURSING ---
Pt has increased edema to BLLE and BLUE and scrotum. Dr. Boss updated. NO for lasix 40mg PO daily and check BMP sunday.
[2018-08-26] MEDS: Pravastatin 40 MG Tablet PO (21:14)
[2018-08-27] MEDS: Furosemide 40 MG Tablet PO (06:24)
[2018-08-27] MEDS: Menthol/Lanolin/Calamine/Znox 113 GM Tube 1 APPLIC TOPICAL ×2 (06:24→20:24)
[2018-08-27] MEDS: Labetalol 200 MG Tablet PO ×2 (06:25→17:00)
[2018-08-27] MEDS: Finasteride 5 MG Tablet PO (06:25)
[2018-08-27] MEDS: Enoxaparin 30 MG/0.3 ML Syringe SC (06:25)
[2018-08-27] MEDS: Allopurinol 300 MG Tablet PO (06:26)
[2018-08-27 07:16] LABS: Absolute Lymphocyte Count 0.67 X10^3/ul (0.83-4.51); Absolute Neutrophil Count 2.7 X10^3/uL (2.0-7.7); Basophil# 0.01 X10^3/uL; Basophil% 0.3 % (0-1); Eosinophil# 0.18 X10^3/uL; Eosinophils% 4.7 % (0-5); Hematocrit 29.4 % (40-54); Hemoglobin 8.7 g/dl (13.0-16.5); Lymphocyte # 0.67 X10^3/ul (4.0); Lymphocyte % 17.6 % (19-41); Mean Corp Hgb Conc 29.6 g/gl (32-36); Mean Corpuscular Hgb 28.7 pg (27.0-32.0); Mean Platelet Vol. 11.2 fl (6.2-12.0); Monocyte% 5.3 % (0-10); Neutrophil # 2.74 X10^3/uL (2.7-7.7); Neutrophil % 72.1 % (47-70); Platelet Count 142 K/mm3 (150-450); RBC Distribution Width CV 17.2 % (11.6-14.6); Red Blood Count 3.03 M/mm3 (4.6-6.2); White Blood Count 3.8 K/mm3 (4.4-11.0)
[2018-08-27 07:18] LABS: Anion Gap 8 (5-15); BUN 51 mg/dL (7-18); BUN/Creat Ratio 35.7 RATIO (10-20); Calcium,Total 8.4 mg/dL (8.5-10.1); Chloride 117 mmol/L (98-107); Creatinine, Serum 1.43 mg/dL (0.70-1.30); EST Glomerular Filtration Rate 50 mL/min (>60); Est Glom Filt Rate - Afr Amer 61 mL/min (>60); Estimated Creatinine Clearance 40.51 ml/min; Glucose 93 mg/dL (74-106); Potassium 4.3 mmol/L (3.5-5.1); Sodium Level 149 mmol/L (136-145)
[2018-08-27 07:30] LABS: POSITIVE COUNT NO; POSITIVE DIFFERENTIAL NO; POSITIVE MORPHOLOGY NO
[2018-08-27] MEDS: Iron Polysaccharide Complex 150 MG CAPSULE PO (07:30)
[2018-08-27] MEDS: Aspirin E.C. 81 MG Tablet PO (07:30)
[2018-08-27] MEDS: Tuberculin,Purif.prot.deriv. 50 TU/ML Vial 5 ML ID (10:57)
[2018-08-27 14:37] VITALS: PULSE 63; RESP 18; O2SAT 98
[2018-08-27 15:35] VITALS: BP 142/59; PULSE 60; RESP 14; TEMP 36.2; O2SAT 98
[2018-08-27] MEDS: Pravastatin 40 MG Tablet PO (20:25)
[2018-08-28] MEDS: Menthol/Lanolin/Calamine/Znox 113 GM Tube 1 APPLIC TOPICAL ×2 (04:29→21:47)
[2018-08-28] MEDS: Furosemide 40 MG Tablet PO (04:30)
[2018-08-28] MEDS: Finasteride 5 MG Tablet PO (04:30)
[2018-08-28] MEDS: Labetalol 200 MG Tablet PO ×2 (04:30→17:26)
[2018-08-28] MEDS: Allopurinol 300 MG Tablet PO (04:31)
[2018-08-28] MEDS: Enoxaparin 30 MG/0.3 ML Syringe SC (04:34)
[2018-08-28] MEDS: Aspirin E.C. 81 MG Tablet PO (08:01)
[2018-08-28] MEDS: Iron Polysaccharide Complex 150 MG CAPSULE PO (08:01)
[2018-08-28 10:00] VITALS: PULSE 78; RESP 18; O2SAT 96
--- NOTE | 2018-08-28 13:31 | CASEMGMT ---
Plan of care meeting held. Resident present as well as resident family. No discharge date set at this time. Resident to continue with further care and treatment on the Transitional Care Unit. Resident plans to discharge to home alone at time of discharge. Support given. Will continue to follow. CRISTAL Martínez, TRUCKLOAD OWNER OPERATOR
[2018-08-28 15:33] VITALS: BP 151/70; PULSE 64; RESP 16; TEMP 36.6; O2SAT 98
[2018-08-28] MEDS: Pravastatin 40 MG Tablet PO (21:47)
[2018-08-29] MEDS: Furosemide 40 MG Tablet PO (06:08)
[2018-08-29] MEDS: Menthol/Lanolin/Calamine/Znox 113 GM Tube 1 APPLIC TOPICAL ×2 (06:08→20:31)
[2018-08-29] MEDS: Enoxaparin 30 MG/0.3 ML Syringe SC (06:08)
[2018-08-29] MEDS: Finasteride 5 MG Tablet PO (06:09)
[2018-08-29] MEDS: Labetalol 200 MG Tablet PO ×2 (06:09→17:16)
[2018-08-29] MEDS: Allopurinol 300 MG Tablet PO (06:10)
[2018-08-29] MEDS: Iron Polysaccharide Complex 150 MG CAPSULE PO (08:12)
[2018-08-29] MEDS: Aspirin E.C. 81 MG Tablet PO (08:12)
--- NOTE | 2018-08-29 09:37 | MDS.RN ---
Information for the mds was obtained from review of the clinical record, interview of resident, staff, and direct observation of resident's care.
[2018-08-29 10:00] VITALS: PULSE 67; RESP 18; O2SAT 96
[2018-08-29 16:00] VITALS: BP 148/55; PULSE 66; RESP 18; TEMP 36.7; O2SAT 97
[2018-08-29] MEDS: Ammonium Lactate 225 gm Bottle 1 APPLIC TOPICAL (20:30)
[2018-08-29] MEDS: Pravastatin 40 MG Tablet PO (20:32)
[2018-08-30] MEDS: Ammonium Lactate 225 gm Bottle 1 APPLIC TOPICAL ×2 (04:48→16:40)
[2018-08-30] MEDS: Labetalol 200 MG Tablet PO ×2 (04:48→16:38)
[2018-08-30] MEDS: Furosemide 40 MG Tablet PO (04:48)
[2018-08-30] MEDS: Allopurinol 300 MG Tablet PO (04:48)
[2018-08-30] MEDS: Finasteride 5 MG Tablet PO (04:48)
[2018-08-30] MEDS: Menthol/Lanolin/Calamine/Znox 113 GM Tube 1 APPLIC TOPICAL ×2 (04:49→20:29)
[2018-08-30] MEDS: Enoxaparin 30 MG/0.3 ML Syringe SC (05:01)
[2018-08-30 06:10] LABS: Anion Gap 6 (5-15); BUN 59 mg/dL (7-18); BUN/Creat Ratio 41.8 RATIO (10-20); Calcium,Total 7.9 mg/dL (8.5-10.1); Chloride 114 mmol/L (98-107); Creatinine, Serum 1.41 mg/dL (0.70-1.30); EST Glomerular Filtration Rate 51 mL/min (>60); Est Glom Filt Rate - Afr Amer 62 mL/min (>60); Estimated Creatinine Clearance 41.09 ml/min; Glucose 94 mg/dL (74-106); Potassium 3.9 mmol/L (3.5-5.1); Sodium Level 149 mmol/L (136-145)
[2018-08-30] MEDS: Aspirin E.C. 81 MG Tablet PO (08:50)
[2018-08-30] MEDS: Iron Polysaccharide Complex 150 MG CAPSULE PO (08:51)
[2018-08-30 10:00] VITALS: PULSE 78; RESP 18; O2SAT 95
[2018-08-30 16:00] VITALS: BP 153/43; PULSE 66; RESP 14; TEMP 36.7; O2SAT 98
[2018-08-30] MEDS: Pravastatin 40 MG Tablet PO (20:28)
[2018-08-31] MEDS: Ammonium Lactate 225 gm Bottle 1 APPLIC TOPICAL ×2 (06:29→16:47)
[2018-08-31] MEDS: Menthol/Lanolin/Calamine/Znox 113 GM Tube 1 APPLIC TOPICAL ×2 (06:29→21:32)
[2018-08-31] MEDS: Enoxaparin 30 MG/0.3 ML Syringe SC (06:30)
[2018-08-31] MEDS: Furosemide 40 MG Tablet PO (06:31)
[2018-08-31] MEDS: Labetalol 200 MG Tablet PO ×2 (06:32→17:00)
[2018-08-31] MEDS: Allopurinol 300 MG Tablet PO (06:32)
[2018-08-31] MEDS: Finasteride 5 MG Tablet PO (06:32)
[2018-08-31] MEDS: Aspirin E.C. 81 MG Tablet PO (07:59)
[2018-08-31] MEDS: Iron Polysaccharide Complex 150 MG CAPSULE PO (07:59)
--- NOTE | 2018-08-31 14:16 | NURSING ---
THERAPY IN TO SEE PT. THIS NURSE ASKED PT IF HE NEEDED TO USE RESTROOM FIRST. PT STATED YES. THIS NURSE FOUND PT INCONTINENT X3. ASKED PT IF HE KNEW WHEN HE HAD TO USE RESTROOM, PT STATED BY THE TIME I GET URINAL I HAVE ALREADY WENT. ASKED PT IF HE CALLS OUT AFTER BEING INCONTINENT PT STATED NO. EXPLAINED TO PT THAT HE NEEDS TO CALL OUT SO WE CAN HELP HIM CLEAN UP AND THAT SITTING IN STOOL/URINE CAN CAUSE BRAKE DOWN ETC. PT STATED THAT HE UNDERSTOOD. REPORTED TO HAL LEE
[2018-08-31 15:30] VITALS: PULSE 62; RESP 18; O2SAT 98
[2018-08-31 15:43] VITALS: BP 172/61; PULSE 56; RESP 16; TEMP 36.3; O2SAT 99
[2018-08-31 16:53] VITALS: PULSE 64
[2018-08-31] MEDS: Pravastatin 40 MG Tablet PO (21:32)
[2018-09-01 04:46] VITALS: BP 157/52; PULSE 63; RESP 16; O2SAT 96
[2018-09-01 04:47] VITALS: PULSE 59; RESP 16; O2SAT 96
[2018-09-01] MEDS: Menthol/Lanolin/Calamine/Znox 113 GM Tube 1 APPLIC TOPICAL ×2 (05:08→20:46)
[2018-09-01] MEDS: Enoxaparin 30 MG/0.3 ML Syringe SC (05:08)
[2018-09-01] MEDS: Ammonium Lactate 225 gm Bottle 1 APPLIC TOPICAL ×2 (05:08→17:45)
[2018-09-01] MEDS: Finasteride 5 MG Tablet PO (05:09)
[2018-09-01] MEDS: Labetalol 200 MG Tablet PO ×2 (05:09→17:42)
[2018-09-01] MEDS: Furosemide 40 MG Tablet PO (05:10)
[2018-09-01] MEDS: Allopurinol 300 MG Tablet PO (05:10)
[2018-09-01] MEDS: Aspirin E.C. 81 MG Tablet PO (07:30)
[2018-09-01] MEDS: Iron Polysaccharide Complex 150 MG CAPSULE PO (07:30)
[2018-09-01 16:00] VITALS: BP 175/53; PULSE 57; RESP 14; TEMP 37.1; O2SAT 99
[2018-09-01] MEDS: Pravastatin 40 MG Tablet PO (20:44)
[2018-09-02] MEDS: Finasteride 5 MG Tablet PO (06:05)
[2018-09-02] MEDS: Labetalol 200 MG Tablet PO ×2 (06:05→16:42)
[2018-09-02] MEDS: Allopurinol 300 MG Tablet PO (06:05)
[2018-09-02] MEDS: Furosemide 40 MG Tablet PO (06:05)
[2018-09-02] MEDS: Enoxaparin 30 MG/0.3 ML Syringe SC (06:06)
[2018-09-02] MEDS: Ammonium Lactate 225 gm Bottle 1 APPLIC TOPICAL ×2 (06:08→16:42)
[2018-09-02] MEDS: Menthol/Lanolin/Calamine/Znox 113 GM Tube 1 APPLIC TOPICAL ×2 (06:09→21:30)
[2018-09-02] MEDS: Aspirin E.C. 81 MG Tablet PO (08:29)
[2018-09-02] MEDS: Iron Polysaccharide Complex 150 MG CAPSULE PO (08:30)
[2018-09-02 10:00] VITALS: PULSE 58; RESP 18; O2SAT 96
--- NOTE | 2018-09-02 14:41 | CASEMGMT ---
Brief interview for mental status (BIMS) and resident mood interview (PHQ-9) completed on this day. BIMS score 14/15. PHQ-9 score
[2018-09-02 16:00] VITALS: BP 122/68; PULSE 64; RESP 18; TEMP 36.8; O2SAT 96
[2018-09-02] MEDS: Pravastatin 40 MG Tablet PO (21:29)
[2018-09-03] MEDS: Polyethylene Glycol 3350 17 GM PACKET PO (05:24)
[2018-09-03] MEDS: Allopurinol 300 MG Tablet PO (05:26)
[2018-09-03] MEDS: Labetalol 200 MG Tablet PO ×2 (05:26→18:12)
[2018-09-03] MEDS: Enoxaparin 30 MG/0.3 ML Syringe SC (05:26)
[2018-09-03] MEDS: Furosemide 40 MG Tablet PO (05:26)
[2018-09-03] MEDS: Finasteride 5 MG Tablet PO (05:26)
[2018-09-03] MEDS: Ammonium Lactate 225 gm Bottle 1 APPLIC TOPICAL ×2 (05:27→18:13)
[2018-09-03] MEDS: Menthol/Lanolin/Calamine/Znox 113 GM Tube 1 APPLIC TOPICAL ×2 (05:27→20:07)
[2018-09-03 06:37] LABS: Anion Gap 5 (5-15); BUN 47 mg/dL (7-18); BUN/Creat Ratio 32.9 RATIO (10-20); Chloride 111 mmol/L (98-107); Creatinine, Serum 1.43 mg/dL (0.70-1.30); EST Glomerular Filtration Rate 50 mL/min (>60); Est Glom Filt Rate - Afr Amer 61 mL/min (>60); Estimated Creatinine Clearance 40.51 ml/min; Glucose 97 mg/dL (74-106); Potassium 3.4 mmol/L (3.5-5.1); Sodium Level 147 mmol/L (136-145)
[2018-09-03 06:42] LABS: Absolute Neutrophil Count 1.7 X10^3/uL (2.0-7.7); Eosinophil# 0.18 X10^3/uL; Eosinophils% 6.7 % (0-5); Hematocrit 28.1 % (40-54); Hemoglobin 8.6 g/dl (13.0-16.5); Lymphocyte % 22.4 % (19-41); Mean Corp Hgb Conc 30.6 g/gl (32-36); Mean Corpuscular Hgb 30.4 pg (27.0-32.0); Mean Corpuscular Volume 99.3 fL (80-94); Mean Platelet Vol. 10.6 fl (6.2-12.0); Monocyte% 7.5 % (0-10); Neutrophil % 63.4 % (47-70); Platelet Count 139 K/mm3 (150-450); RBC Distribution Width CV 18.2 % (11.6-14.6); RBC Distribution Width SD 62.6 fl (35.1-43.9); Red Blood Count 2.83 M/mm3 (4.6-6.2); White Blood Count 2.7 K/mm3 (4.4-11.0)
[2018-09-03 06:56] LABS: Differential Indicated SCAN CRITERIA MET; POSITIVE COUNT NO; POSITIVE DIFFERENTIAL YES; POSITIVE MORPHOLOGY NO
[2018-09-03 07:15] LABS: Anisocytosis RARE; Macrocytosis RARE; Platelet Estimate SLT DEC (ADEQ)
[2018-09-03] MEDS: Iron Polysaccharide Complex 150 MG CAPSULE PO (08:22)
[2018-09-03] MEDS: Aspirin E.C. 81 MG Tablet PO (08:22)
[2018-09-03 10:00] VITALS: PULSE 78; RESP 18; O2SAT 98
[2018-09-03 16:00] VITALS: BP 117/75; PULSE 56; RESP 22; TEMP 36.9; O2SAT 98
[2018-09-03] MEDS: Pravastatin 40 MG Tablet PO (20:07)
[2018-09-04] MEDS: Ammonium Lactate 225 gm Bottle 1 APPLIC TOPICAL ×2 (05:06→16:13)
[2018-09-04] MEDS: Furosemide 40 MG Tablet PO (05:06)
[2018-09-04] MEDS: Menthol/Lanolin/Calamine/Znox 113 GM Tube 1 APPLIC TOPICAL ×2 (05:06→21:14)
[2018-09-04] MEDS: Allopurinol 300 MG Tablet PO (05:06)
[2018-09-04] MEDS: Labetalol 200 MG Tablet PO ×2 (05:06→16:12)
[2018-09-04] MEDS: Finasteride 5 MG Tablet PO (05:06)
[2018-09-04] MEDS: Enoxaparin 30 MG/0.3 ML Syringe SC (05:07)
[2018-09-04] MEDS: Iron Polysaccharide Complex 150 MG CAPSULE PO (08:42)
[2018-09-04] MEDS: Aspirin E.C. 81 MG Tablet PO (08:42)
[2018-09-04 16:00] VITALS: BP 125/65; PULSE 62; RESP 14; TEMP 37; O2SAT 98
[2018-09-04] MEDS: Pravastatin 40 MG Tablet PO (21:13)
[2018-09-04 21:16] VITALS: PULSE 67; RESP 16; O2SAT 97
[2018-09-04 21:23] VITALS: BP 146/65; PULSE 67; RESP 16; O2SAT 98
[2018-09-05] MEDS: Ammonium Lactate 225 gm Bottle 1 APPLIC TOPICAL ×2 (05:39→17:53)
[2018-09-05] MEDS: Enoxaparin 30 MG/0.3 ML Syringe SC (05:40)
[2018-09-05] MEDS: Furosemide 40 MG Tablet PO (05:42)
[2018-09-05] MEDS: Finasteride 5 MG Tablet PO (05:42)
[2018-09-05] MEDS: Labetalol 200 MG Tablet PO ×2 (05:42→17:52)
[2018-09-05] MEDS: Allopurinol 300 MG Tablet PO (05:42)
[2018-09-05] MEDS: Menthol/Lanolin/Calamine/Znox 113 GM Tube 1 APPLIC TOPICAL ×2 (05:45→21:08)
[2018-09-05] MEDS: Aspirin E.C. 81 MG Tablet PO (09:02)
[2018-09-05] MEDS: Iron Polysaccharide Complex 150 MG CAPSULE PO (09:02)
[2018-09-05 10:00] VITALS: RESP 16; O2SAT 97
--- NOTE | 2018-09-05 11:58 | NURSING ---
wound photo: bilateral lower legs
--- NOTE | 2018-09-05 11:59 | NURSING ---
wound photo: left lateral lower leg
--- NOTE | 2018-09-05 11:59 | NURSING ---
wound photo: left posterior lower leg
[2018-09-05 15:32] VITALS: BP 126/70; PULSE 60; RESP 18; TEMP 36.8; O2SAT 97
[2018-09-05] MEDS: Pravastatin 40 MG Tablet PO (21:09)
[2018-09-06] MEDS: Ammonium Lactate 225 gm Bottle 1 APPLIC TOPICAL ×2 (05:15→16:40)
[2018-09-06] MEDS: Menthol/Lanolin/Calamine/Znox 113 GM Tube 1 APPLIC TOPICAL ×2 (05:15→20:53)
[2018-09-06] MEDS: Allopurinol 300 MG Tablet PO (05:16)
[2018-09-06] MEDS: Labetalol 200 MG Tablet PO ×2 (05:16→16:40)
[2018-09-06] MEDS: Enoxaparin 30 MG/0.3 ML Syringe SC (05:16)
[2018-09-06] MEDS: Furosemide 40 MG Tablet PO (05:16)
[2018-09-06] MEDS: Finasteride 5 MG Tablet PO (05:16)
[2018-09-06] MEDS: Iron Polysaccharide Complex 150 MG CAPSULE PO (08:18)
[2018-09-06] MEDS: Aspirin E.C. 81 MG Tablet PO (08:18)
--- NOTE | 2018-09-06 12:40 | CASEMGMT ---
Brief interview for mental status (BIMS) and mood (PHQ-9) completed on this day. BIMS score 15/15. PHQ-9 score 0/27. Dave Downey social work student
--- NOTE | 2018-09-06 14:08 | CASEMGMT ---
Student SW documentation reviewed. CRISTAL Rouse
[2018-09-06 16:00] VITALS: BP 146/65; PULSE 57; RESP 20; TEMP 35.7; O2SAT 97
[2018-09-06] MEDS: Pravastatin 40 MG Tablet PO (20:54)
[2018-09-06 22:00] VITALS: PULSE 66; RESP 15; O2SAT 97
[2018-09-07] MEDS: Menthol/Lanolin/Calamine/Znox 113 GM Tube 1 APPLIC TOPICAL ×2 (05:45→21:17)
[2018-09-07] MEDS: Ammonium Lactate 225 gm Bottle 1 APPLIC TOPICAL ×2 (05:46→17:20)
[2018-09-07] MEDS: Furosemide 40 MG Tablet PO (05:47)
[2018-09-07] MEDS: Labetalol 200 MG Tablet PO ×2 (05:47→17:19)
[2018-09-07] MEDS: Allopurinol 300 MG Tablet PO (05:47)
[2018-09-07] MEDS: Enoxaparin 30 MG/0.3 ML Syringe SC (05:47)
[2018-09-07] MEDS: Finasteride 5 MG Tablet PO (05:47)
[2018-09-07] MEDS: Aspirin E.C. 81 MG Tablet PO (08:30)
[2018-09-07] MEDS: Iron Polysaccharide Complex 150 MG CAPSULE PO (08:30)
[2018-09-07 16:00] VITALS: BP 167/87; PULSE 60; RESP 16; TEMP 37.2; O2SAT 99
[2018-09-07] MEDS: Pravastatin 40 MG Tablet PO (21:17)
[2018-09-07 22:00] VITALS: PULSE 80; RESP 20
[2018-09-08] MEDS: Menthol/Lanolin/Calamine/Znox 113 GM Tube 1 APPLIC TOPICAL ×2 (06:11→21:18)
[2018-09-08] MEDS: Ammonium Lactate 225 gm Bottle 1 APPLIC TOPICAL ×2 (06:16→17:19)
[2018-09-08] MEDS: Enoxaparin 30 MG/0.3 ML Syringe SC (06:17)
[2018-09-08] MEDS: Furosemide 40 MG Tablet PO (06:17)
[2018-09-08] MEDS: Labetalol 200 MG Tablet PO ×2 (06:17→17:17)
[2018-09-08] MEDS: Allopurinol 300 MG Tablet PO (06:18)
[2018-09-08] MEDS: Finasteride 5 MG Tablet PO (06:18)
[2018-09-08] MEDS: Iron Polysaccharide Complex 150 MG CAPSULE PO (08:38)
[2018-09-08] MEDS: Aspirin E.C. 81 MG Tablet PO (08:38)
[2018-09-08] MEDS: Polyethylene Glycol 3350 17 GM PACKET PO (09:32)
[2018-09-08 10:00] VITALS: PULSE 67; O2SAT 96
[2018-09-08 15:26] VITALS: BP 172/66; PULSE 58; RESP 14; TEMP 36.2; O2SAT 97
[2018-09-08] MEDS: Pravastatin 40 MG Tablet PO (21:18)
[2018-09-09] MEDS: Menthol/Lanolin/Calamine/Znox 113 GM Tube 1 APPLIC TOPICAL ×2 (06:37→21:14)
[2018-09-09] MEDS: Ammonium Lactate 225 gm Bottle 1 APPLIC TOPICAL ×2 (06:37→17:29)
[2018-09-09] MEDS: Furosemide 40 MG Tablet PO (06:37)
[2018-09-09] MEDS: Labetalol 200 MG Tablet PO ×2 (06:37→17:33)
[2018-09-09] MEDS: Enoxaparin 30 MG/0.3 ML Syringe SC (06:37)
[2018-09-09] MEDS: Allopurinol 300 MG Tablet PO (06:38)
[2018-09-09] MEDS: Finasteride 5 MG Tablet PO (06:38)
[2018-09-09] MEDS: Iron Polysaccharide Complex 150 MG CAPSULE PO (07:46)
[2018-09-09] MEDS: Aspirin E.C. 81 MG Tablet PO (07:46)
[2018-09-09 09:30] VITALS: PULSE 57; RESP 18; O2SAT 98
[2018-09-09 16:00] VITALS: BP 123/63; PULSE 58; RESP 16; TEMP 36.2; O2SAT 98
[2018-09-09 17:41] VITALS: PULSE 87
[2018-09-09] MEDS: Pravastatin 40 MG Tablet PO (21:14)
[2018-09-10] MEDS: Menthol/Lanolin/Calamine/Znox 113 GM Tube 1 APPLIC TOPICAL ×2 (05:22→20:44)
[2018-09-10] MEDS: Ammonium Lactate 225 gm Bottle 1 APPLIC TOPICAL ×2 (05:22→16:54)
[2018-09-10] MEDS: Enoxaparin 30 MG/0.3 ML Syringe SC (05:23)
[2018-09-10] MEDS: Labetalol 200 MG Tablet PO ×2 (05:25→16:54)
[2018-09-10] MEDS: Allopurinol 300 MG Tablet PO (05:25)
[2018-09-10] MEDS: Furosemide 40 MG Tablet PO (05:25)
[2018-09-10] MEDS: Finasteride 5 MG Tablet PO (05:25)
[2018-09-10] MEDS: Aspirin E.C. 81 MG Tablet PO (07:57)
[2018-09-10] MEDS: Iron Polysaccharide Complex 150 MG CAPSULE PO (07:57)
[2018-09-10 10:30] VITALS: PULSE 61; RESP 18; O2SAT 95
--- NOTE | 2018-09-10 14:39 | NURSING ---
wound photo: bilateral lower legs
--- NOTE | 2018-09-10 14:40 | NURSING ---
wound photo: left lateral lower leg
--- NOTE | 2018-09-10 14:40 | NURSING ---
wound photo: left posterior lower leg
--- NOTE | 2018-09-10 15:17 | NURSING ---
HAL SCHNEIDER DID DRESSING CHANGE TODAY. HAL CALIX AWARE
[2018-09-10 15:59] VITALS: BP 172/60; PULSE 64; RESP 16; TEMP 36.2; O2SAT 98
[2018-09-10] MEDS: Pravastatin 40 MG Tablet PO (20:46)
[2018-09-11] MEDS: Menthol/Lanolin/Calamine/Znox 113 GM Tube 1 APPLIC TOPICAL ×2 (05:21→20:50)
[2018-09-11] MEDS: Ammonium Lactate 225 gm Bottle 1 APPLIC TOPICAL ×2 (05:21→18:03)
[2018-09-11] MEDS: Furosemide 40 MG Tablet PO (05:26)
[2018-09-11] MEDS: Allopurinol 300 MG Tablet PO (05:27)
[2018-09-11] MEDS: Labetalol 200 MG Tablet PO ×2 (05:28→18:01)
[2018-09-11] MEDS: Finasteride 5 MG Tablet PO (05:28)
[2018-09-11] MEDS: Enoxaparin 30 MG/0.3 ML Syringe SC (05:31)
[2018-09-11 05:58] LABS: Absolute Lymphocyte Count 0.69 X10^3/ul (0.83-4.51); Absolute Neutrophil Count 1.4 X10^3/uL (2.0-7.7); Basophil# 0.01 X10^3/uL; Basophil% 0.4 % (0-1); Eosinophil# 0.18 X10^3/uL; Eosinophils% 6.9 % (0-5); Hematocrit 30.3 % (40-54); Hemoglobin 8.9 g/dl (13.0-16.5); Lymphocyte # 0.69 X10^3/ul (4.0); Lymphocyte % 26.4 % (19-41); Mean Corp Hgb Conc 29.4 g/gl (32-36); Mean Corpuscular Hgb 29.1 pg (27.0-32.0); Mean Platelet Vol. 10.5 fl (6.2-12.0); Monocyte# 0.34 X10^3/uL; Neutrophil # 1.38 X10^3/uL (2.7-7.7); Neutrophil % 52.9 % (47-70); Platelet Count 138 K/mm3 (150-450); RBC Distribution Width CV 16.5 % (11.6-14.6); RBC Distribution Width SD 57.7 fl (35.1-43.9); Red Blood Count 3.06 M/mm3 (4.6-6.2); White Blood Count 2.6 K/mm3 (4.4-11.0)
[2018-09-11 06:06] LABS: POSITIVE COUNT NO; POSITIVE DIFFERENTIAL NO; POSITIVE MORPHOLOGY NO
[2018-09-11 06:34] LABS: Anion Gap 7 (5-15); BUN 50 mg/dL (7-18); BUN/Creat Ratio 36.8 RATIO (10-20); Calcium,Total 8.5 mg/dL (8.5-10.1); Chloride 108 mmol/L (98-107); Creatinine, Serum 1.36 mg/dL (0.70-1.30); EST Glomerular Filtration Rate 53 mL/min (>60); Est Glom Filt Rate - Afr Amer 65 mL/min (>60); Glucose 88 mg/dL (74-106); Potassium 3.8 mmol/L (3.5-5.1); Sodium Level 148 mmol/L (136-145)
[2018-09-11] MEDS: Aspirin E.C. 81 MG Tablet PO (08:17)
[2018-09-11 10:00] VITALS: RESP 18; O2SAT 94
[2018-09-11] MEDS: Iron Polysaccharide Complex 150 MG CAPSULE PO (10:23)
--- NOTE | 2018-09-11 11:42 | CASEMGMT ---
Social Work Spoke with resident in room. This psychosocial rehabilitation counselor communicating to resident that discharge date has been set for 09/17/18. Resident is agreeable to discharge date and plans to discharge to home with family for support. Resident to have needed durable medical equipment already set up within the home. This psychosocial rehabilitation counselor communicating that physical and occupational therapy as well as halfway is being recommending for resident to continue with through home health care. Resident is agreeable to recommendation and requesting for home health care to be set up through [facility] ([facility]). Resident reporting to be able to communicate resident discharge date and plan to family. Resident family to provide transportation home for resident at time of discharge. Support given. Telephone call to [facility], Ernestine. This psychosocial rehabilitation counselor making referral for physical and occupational therapy as well as halfway. Order to be completed. Proposed discharge date: 09/17/18 PLAN: Discharge to home with grandson and home health care. CRISTAL Martínez, FLUTE GRINDER
[2018-09-11 15:44] VITALS: BP 178/61; PULSE 66; RESP 18; TEMP 36.6; O2SAT 97
[2018-09-11 20:30] VITALS: RESP 18
[2018-09-11] MEDS: Pravastatin 40 MG Tablet PO (20:50)
--- NOTE | 2018-09-11 21:12 | DCINST_ITS ---
- Discharge Diagnoses Current Active Problems: Current Active and Chronic Problems Metabolic encephalopathy (Acute) Cellulitis of leg (Acute) Leg ulcer (Chronic) Lymphedema (Chronic) Pleural effusion, right (Acute) Hypertension (Chronic) Benign prostatic hyperplasia (Chronic) Chronic kidney disease (Chronic) Stroke (Chronic) Hyperlipidemia (Chronic) You will use the following diet at home:: No restrictions, Regular Your food should be the consistency of: Regular Your liquids should be the consistency of: Regular/Thin Discharge Activity: Return to Normal Activity, May Shower, Use Walker Weight Bearing Status: Weight bearing as tolerated Call your doctor if you observe: Fever of 101 or Higher, Inability to urinate, Inability to have a bowel movement, Shortness of breath, Chest pain, Un controlled pain Allergies/Adverse Reactions: Allergies No Known Allergies Allergy (Verified 04/13/17 14:20) Medications to take at Discharge Allopurinol 300 mg PO DAILY 10/10/16 Cholecalciferol (Vitamin D3) [Vitamin D3] 50,000 unit PO BURGOS 10/10/16 Labetalol [Trandate (Beta Lily)] 200 mg PO BID 10/10/16 Pravastatin [Pravachol] 40 mg PO QHS 10/10/16 Aspirin E.C. [Ecotrin] 81 mg PO DAILY 08/14/18 Finasteride [Proscar] 5 mg PO DAILY 08/19/18 Acetaminophen [Tylenol] 1,000 mg PO Q8H PRN tablet 09/11/18 Epoetin Royer [Procrit] 10,000 units SC Q14D ml 09/11/18 Furosemide [Lasix] 40 mg PO DAILY #30 tablet 09/11/18 Iron Polysaccharide Complex [Ferrex 150] 150 mg PO DAILYCM #30 capsule 09/11/18 Menthol/Lanolin/Calamine/Znox [Calmoseptine Ointment] 1 applic TOPICAL tube 09/11/18 Nutritional Supplement [Morales - ORANGE FLAVOR] 1 packet PO BIDCM #60 packet 09/11/18 The following prescriptions were given: Furosemide [Lasix] 40 mg PO DAILY #30 tablet Iron Polysaccharide Complex [Ferrex 150] 150 mg PO DAILYCM #30 capsule Nutritional Supplement [Morales - [place]ANGE FLAVOR] 1 packet PO BIDCM #60 packet Primary Care Physician: Vijay Mason MD [Primary Care Provider] - Please follow up with your Primary Care Physician in: 1 week. Test Results: Test results from this visit will be discussed in further detail at your follow- up appointment, if applicable. Please Follow Up With: Vijay Mason When: F/U AFTER DC FROM TCU Proposed Discharge Date: 09/17/18
--- NOTE | 2018-09-11 21:14 | DS.PCM_ITS ---
Discharge Date and Diagnosis - Problem List Patient Problems: Active and Suspected Problems Metabolic encephalopathy (Acute) Cellulitis of leg (Acute) Pleural effusion, right (Acute) Date of Admission: 08/19/18 Date of Discharge: 09/17/18 - Primary Discharge Diagnosis Active and Suspected Problems Metabolic encephalopathy (Acute) Cellulitis of leg (Acute) Pleural effusion, right (Acute) - Secondary Discharge Diagnosis Chronic Problems Leg ulcer (Chronic) Lymphedema (Chronic) Hypertension (Chronic) Benign prostatic hyperplasia (Chronic) Chronic kidney disease (Chronic) Stroke (Chronic) Hyperlipidemia (Chronic) Cellulitis (Chronic) Lymphedema of lower extremity (Chronic) Nephrolithiasis (Chronic) Gout (Chronic) CKD (chronic kidney disease), stage III (Chronic) BPH (benign prostatic hyperplasia) (Chronic) Benign hypertension (Chronic) Anemia (Chronic) Chronic renal insufficiency, stage III (moderate) (Chronic) Nonstaphylococcal scalded skin syndrome (Chronic) Arthritis (Chronic) Hospital Course and Treatment Imaging Results: 08/19/18 15:06 Diet: Regular Diet Dietary Modifications:: Fluid Restricted Diet Is pt able to select menu?: Yes Diet Comments: LOW SODIUM, MEDS IN APPLESAUCE; 1500 FR. one salt packet w/each meal Labs (Last 48 Hours) 09/11/18 09/11/18 05:10 05:10 WBC 2.6 L RBC 3.06 L Hgb 8.9 L Hct 30.3 L MCV 99.0 H MCH 29.1 MCHC 29.4 L RDW 16.5 H RDW Differential 57.7 H Plt Count 138 L MPV 10.5 Immature Gran % (Auto) 0.400 Neut % (Auto) 52.9 Lymph % (Auto) 26.4 Mcleod % (Auto) 13.0 H Eos % (Auto) 6.9 H Baso % (Auto) 0.4 Absolute Neuts (auto) 1.4 L Absolute Lymphs (auto) 0.69 L Total Counted Not Reportable Sodium 148 H Potassium 3.8 Chloride 108 H Carbon Dioxide 33.0 H Anion Gap 7 BUN 50 H Creatinine 1.36 H Estim Creat Clear Calc 42.60 Est GFR (MDRD) Af Amer 65 Est GFR (MDRD) Non-Af 53 L BUN/Creatinine Ratio 36.8 H Glucose 88 Calcium 8.5 Consultations 08/19/18 15:03 Consult: Onc/Wound/traveling construction superintendent Routine Comment: Reason for Consult:: CELLULITES BLE'S Operations: None Procedures: None Summary of Care Provided: The patient is a 83 year old Male with below past medical history hospitalized for metabolic encephalopathy, complicated by bilateral lower extremity cellulitis, rhabdomyolysis, acute on chronic kidney failure, sepsis, hyperkalemia, admitted to TCU with debility, here for rehabilitation, strengthening, prior to discharge home with grandson. Discharge home with grandson, and Home Health Services. Patient Problems: Active and Suspected Problems Metabolic encephalopathy (Acute) Cellulitis of leg (Acute) Pleural effusion, right (Acute) - Physical Exam Vital Signs Temp Pulse Resp BP Pulse Ox 97.9 F 66 18 178/61 H 97 09/11/18 15:44 09/11/18 15:44 09/11/18 15:44 09/11/18 15:44 09/11/18 15:44 Oxygen Delivery Method Room Air Weight: 81.902 kg Body Mass Index (BMI) 27.4 Intake and Output for Last 24 Hours 09/09/18 09/10/18 09/11/18 23:59 23:59 23:59 Intake Total 1210 / 1210 830 / 830 580 / 580 Output Total 800 / 800 275 / 275 475 / 475 Balance 410 / 410 555 / 555 105 / 105 Laboratory Tests Past 24 Hrs 09/11/18 09/11/18 05:10 05:10 WBC 2.6 L RBC 3.06 L Hgb 8.9 L Hct 30.3 L MCV 99.0 H MCH 29.1 MCHC 29.4 L RDW 16.5 H RDW Differential 57.7 H Plt Count 138 L MPV 10.5 Immature Gran % (Auto) 0.400 Neut % (Auto) 52.9 Lymph % (Auto) 26.4 Mcleod % (Auto) 13.0 H Eos % (Auto) 6.9 H Baso % (Auto) 0.4 Absolute Neuts (auto) 1.4 L Absolute Lymphs (auto) 0.69 L Total Counted Not Reportable Sodium 148 H Potassium 3.8 Chloride 108 H Carbon Dioxide 33.0 H Anion Gap 7 BUN 50 H Creatinine 1.36 H Estim Creat Clear Calc 42.60 Est GFR (MDRD) Af Amer 65 Est GFR (MDRD) Non-Af 53 L BUN/Creatinine Ratio 36.8 H Glucose 88 Calcium 8.5 Discharge Diet: No Restrictions Discharge Activity: Return to Normal Activity, May Shower, Use Walker Weight Bearing Status: Weight bearing as tolerated Call your doctor if you observe: Fever of 101 or Higher, Inability to urinate, Inability to have a bowel movement, Shortness of breath, Chest pain, Uncontrolled pain Home Medications: Medications to take at Discharge Allopurinol 300 mg PO DAILY 10/10/16 Cholecalciferol (Vitamin D3) [Vitamin D3] 50,000 unit PO BURGOS 10/10/16 Labetalol [Trandate (Beta Lily)] 200 mg PO BID 10/10/16 Pravastatin [Pravachol] 40 mg PO QHS 10/10/16 Aspirin E.C. [Ecotrin] 81 mg PO DAILY 08/14/18 Finasteride [Proscar] 5 mg PO DAILY 08/19/18 Acetaminophen [Tylenol] 1,000 mg PO Q8H PRN tablet 09/11/18 Epoetin Royer [Procrit] 10,000 units SC Q14D ml 09/11/18 Furosemide [Lasix] 40 mg PO DAILY #30 tablet 09/11/18 Iron Polysaccharide Complex [Ferrex 150] 150 mg PO DAILYCM #30 capsule 09/11/18 Menthol/Lanolin/Calamine/Znox [Calmoseptine Ointment] 1 applic TOPICAL , tube 09/11/18 Nutritional Supplement [Morales - ORANGE FLAVOR] 1 packet PO BIDCM #60 packet 09/11/18 Following Prescrptions Were Given to Patient: Furosemide [Lasix] 40 mg PO DAILY #30 tablet Iron Polysaccharide Complex [Ferrex 150] 150 mg PO DAILYCM #30 capsule Nutritional Supplement [Morales - ORANGE FLAVOR] 1 packet PO BIDCM #60 packet Primary Care Physician: Vijay Mason MD [Primary Care Provider] - Please follow up with your Primary Care Physician in: 1 week. Please Follow Up With: Vijay Mason When: F/U AFTER DC FROM TCU Disposition: Home with Home Health Minutes spent on discharge:: 35 Patient Condition:: Stable Medical Necessity - Tobacco Use Smoking Status: Never smoker Tobacco Use: Non-smoker Meaningful Use Info Meaningful Use Diagnoses (Choose all that apply): None applicable
--- NOTE | 2018-09-11 21:15 | HHNOTE_ITS ---
Home Health Note - Plan Overview of reason of hospitalization: The patient is a 83 year old Male with below past medical history hospitalized for metabolic encephalopathy, complicated by bilateral lower extremity cellulitis, rhabdomyolysis, acute on chronic kidney failure, sepsis, hyperkalemia, admitted to TCU with debility, here for rehabilitation, strengthening, prior to discharge home with grandson. Discharge home with grandson, and Home Health Services. 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) Sepsis affecting skin (Acute) Rhabdomyolysis (Acute) Acute kidney injury superimposed on chronic kidney disease (Acute) Hyperkalemia (Acute) Metabolic encephalopathy (Acute) Cellulitis of leg (Acute) Leg ulcer (Chronic) Lymphedema (Chronic) Pleural effusion, right (Acute) Hypertension (Chronic) Benign prostatic hyperplasia (Chronic) Chronic kidney disease (Chronic) Stroke (Chronic) Hyperlipidemia (Chronic) Cellulitis (Chronic) Lymphedema of lower extremity (Chronic) Nephrolithiasis (Chronic) Gout (Chronic) CKD (chronic kidney disease), stage III (Chronic) BPH (benign prostatic hyperplasia) (Chronic) Benign hypertension (Chronic) Wound infection (Acute) Anemia (Chronic) Chronic renal insufficiency, stage III (moderate) (Chronic) Nonstaphylococcal scalded skin syndrome (Chronic) Confusion (Acute) Sepsis (Acute) Arthritis (Chronic) - Requirements and Reasons Disciplines Needed/Ordered: Senior Care, Physical Therapy Reason for Disciplines: Disease Specific Monitoring/education, Medication Management/Knowledge Deficit, Observation Assessment, Gait Training, Stair Training, Fall Prevention, Home Safety/Equipment Instruction, Balance and/or Posture Training, Transfer Training Related To: Limited/Poor Endurance, Unsteady Gait/Balance, Fall Risk Patient is unable to leave the home: Without Aid of Supportive Devices (crutches, cane, wheelchair, walker), Without the assistance of another person - Additional Disciplines Additional Disciplines Needed/Ordered: Occupational Therapy
[2018-09-12] MEDS: Allopurinol 300 MG Tablet PO (05:15)
[2018-09-12] MEDS: Labetalol 200 MG Tablet PO ×2 (05:15→17:46)
[2018-09-12] MEDS: Ammonium Lactate 225 gm Bottle 1 APPLIC TOPICAL ×2 (05:15→17:45)
[2018-09-12] MEDS: Furosemide 40 MG Tablet PO (05:15)
[2018-09-12] MEDS: Finasteride 5 MG Tablet PO (05:15)
[2018-09-12] MEDS: Menthol/Lanolin/Calamine/Znox 113 GM Tube 1 APPLIC TOPICAL ×2 (05:16→20:53)
[2018-09-12] MEDS: Enoxaparin 30 MG/0.3 ML Syringe SC (05:16)
[2018-09-12] MEDS: Iron Polysaccharide Complex 150 MG CAPSULE PO (07:51)
[2018-09-12] MEDS: Aspirin E.C. 81 MG Tablet PO (07:51)
[2018-09-12 15:15] VITALS: BP 168/60; PULSE 62; RESP 18; TEMP 36.8; O2SAT 96
[2018-09-12] MEDS: Pravastatin 40 MG Tablet PO (20:54)
[2018-09-13] MEDS: Ammonium Lactate 225 gm Bottle 1 APPLIC TOPICAL ×2 (05:47→17:00)
[2018-09-13] MEDS: Menthol/Lanolin/Calamine/Znox 113 GM Tube 1 APPLIC TOPICAL ×2 (05:47→22:08)
[2018-09-13] MEDS: Furosemide 40 MG Tablet PO (05:48)
[2018-09-13] MEDS: Labetalol 200 MG Tablet PO ×2 (05:48→17:00)
[2018-09-13] MEDS: Finasteride 5 MG Tablet PO (05:48)
[2018-09-13] MEDS: Allopurinol 300 MG Tablet PO (05:48)
[2018-09-13] MEDS: Enoxaparin 30 MG/0.3 ML Syringe SC (05:49)
[2018-09-13 06:30] VITALS: PULSE 60; O2SAT 95
[2018-09-13] MEDS: Iron Polysaccharide Complex 150 MG CAPSULE PO (08:48)
[2018-09-13] MEDS: Aspirin E.C. 81 MG Tablet PO (08:48)
--- NOTE | 2018-09-13 14:01 | CASEMGMT ---
Addendum entered by Eloise Bejarano 09/14/18 12:58: Reviewed and approved social work student MDS documentation. CRISTAL Martínez, GRANULAR OPERATOR Original Note: Brief interview for mental status (BIMS) and mood (PHQ-9) completed on this day. BIMS score 15. PHQ-9 score 11/24. Dave Downey social work student
[2018-09-13 16:00] VITALS: BP 174/61; PULSE 68; RESP 16; TEMP 36.6; O2SAT 96
[2018-09-13] MEDS: Pravastatin 40 MG Tablet PO (22:08)
[2018-09-14] MEDS: Menthol/Lanolin/Calamine/Znox 113 GM Tube 1 APPLIC TOPICAL ×2 (05:57→22:26)
[2018-09-14] MEDS: Furosemide 40 MG Tablet PO (05:58)
[2018-09-14] MEDS: Ammonium Lactate 225 gm Bottle 1 APPLIC TOPICAL ×2 (05:58→16:23)
[2018-09-14] MEDS: Enoxaparin 30 MG/0.3 ML Syringe SC (05:59)
[2018-09-14] MEDS: Finasteride 5 MG Tablet PO (05:59)
[2018-09-14] MEDS: Labetalol 200 MG Tablet PO ×2 (06:00→16:21)
[2018-09-14] MEDS: Allopurinol 300 MG Tablet PO (06:00)
[2018-09-14] MEDS: Iron Polysaccharide Complex 150 MG CAPSULE PO (09:12)
[2018-09-14] MEDS: Aspirin E.C. 81 MG Tablet PO (09:12)
[2018-09-14 16:00] VITALS: BP 166/57; PULSE 57; RESP 16; TEMP 37.1; O2SAT 97
--- NOTE | 2018-09-14 16:00 | NURSING ---
Aware of Vital Signs for 1600 today.
[2018-09-14 22:00] VITALS: PULSE 64; O2SAT 94
[2018-09-14] MEDS: Pravastatin 40 MG Tablet PO (22:27)
[2018-09-15] MEDS: Menthol/Lanolin/Calamine/Znox 113 GM Tube 1 APPLIC TOPICAL ×2 (05:14→20:15)
[2018-09-15] MEDS: Ammonium Lactate 225 gm Bottle 1 APPLIC TOPICAL ×2 (05:15→16:19)
[2018-09-15] MEDS: Labetalol 200 MG Tablet PO ×2 (05:16→16:19)
[2018-09-15] MEDS: Allopurinol 300 MG Tablet PO (05:16)
[2018-09-15] MEDS: Finasteride 5 MG Tablet PO (05:16)
[2018-09-15] MEDS: Furosemide 40 MG Tablet PO (05:17)
[2018-09-15] MEDS: Enoxaparin 30 MG/0.3 ML Syringe SC (05:18)
[2018-09-15] MEDS: Aspirin E.C. 81 MG Tablet PO (08:00)
[2018-09-15] MEDS: Iron Polysaccharide Complex 150 MG CAPSULE PO (08:00)
[2018-09-15 15:56] VITALS: BP 124/64; PULSE 79; RESP 14; TEMP 37.1; O2SAT 97
[2018-09-15] MEDS: Pravastatin 40 MG Tablet PO (20:15)
[2018-09-16] MEDS: Menthol/Lanolin/Calamine/Znox 113 GM Tube 1 APPLIC TOPICAL ×2 (05:04→21:35)
[2018-09-16] MEDS: Furosemide 40 MG Tablet PO (05:05)
[2018-09-16] MEDS: Labetalol 200 MG Tablet PO ×2 (05:05→16:59)
[2018-09-16] MEDS: Finasteride 5 MG Tablet PO (05:05)
[2018-09-16] MEDS: Allopurinol 300 MG Tablet PO (05:05)
[2018-09-16] MEDS: Enoxaparin 30 MG/0.3 ML Syringe SC (05:06)
[2018-09-16] MEDS: Ammonium Lactate 225 gm Bottle 1 APPLIC TOPICAL ×2 (05:08→17:05)
[2018-09-16] MEDS: Aspirin E.C. 81 MG Tablet PO (08:07)
[2018-09-16] MEDS: Iron Polysaccharide Complex 150 MG CAPSULE PO (08:07)
--- NOTE | 2018-09-16 09:51 | NURSING ---
JENNIEFARMWORKER LIVESTOCK NURSE CHANGED PT DRESSINGS.
--- NOTE | 2018-09-16 13:50 | MDS.RN ---
Information for the mds was obtained from review of the clinical record, interview of resident, staff, and direct observation of resident's care.
--- NOTE | 2018-09-16 15:51 | NURSING ---
wound photo: bilateral lower legs
[2018-09-16 15:52] VITALS: BP 159/57; PULSE 70; RESP 18; TEMP 36.4; O2SAT 97
--- NOTE | 2018-09-16 15:52 | NURSING ---
wound photo: left lateral lower leg
--- NOTE | 2018-09-16 15:52 | NURSING ---
wound photo: left posterior lower leg
[2018-09-16 20:40] VITALS: PULSE 78; RESP 18; O2SAT 96
[2018-09-16] MEDS: Pravastatin 40 MG Tablet PO (21:35)
[2018-09-17] MEDS: Ammonium Lactate 225 gm Bottle 1 APPLIC TOPICAL (06:04)
[2018-09-17] MEDS: Menthol/Lanolin/Calamine/Znox 113 GM Tube 1 APPLIC TOPICAL (06:04)
[2018-09-17] MEDS: Finasteride 5 MG Tablet PO (06:05)
[2018-09-17] MEDS: Enoxaparin 30 MG/0.3 ML Syringe SC (06:07)
[2018-09-17] MEDS: Labetalol 200 MG Tablet PO (06:07)
[2018-09-17] MEDS: Allopurinol 300 MG Tablet PO (06:07)
[2018-09-17] MEDS: Furosemide 40 MG Tablet PO (06:08)
[2018-09-17 09:14] VITALS: BP 166/56; PULSE 60; RESP 18; TEMP 36.6; O2SAT 96
[2018-09-17] MEDS: Iron Polysaccharide Complex 150 MG CAPSULE PO (09:16)
[2018-09-17] MEDS: Aspirin E.C. 81 MG Tablet PO (09:16)
== END 2018-09-17 12:30 | disposition home health service (06) | DRG 947 ==
PROVIDERS: Admitting Provider Family Medicine Geriatric Medicine; Family Provider Family Medicine; PCP Family Medicine; Referring Provider Family Medicine Geriatric Medicine; Visit Provider Family Medicine Geriatric Medicine
DX: R53.81 Other malaise (principal); G93.41 Metabolic encephalopathy; L03.116 Cellulitis of left lower limb; L03.115 Cellulitis of right lower limb; L97.811 Non-pressure chronic ulcer of other part of right lower leg limited to breakdown of skin; E78.5 Hyperlipidemia, unspecified; I12.9 Hypertensive chronic kidney disease with stage 1 through stage 4 chronic kidney disease, or unspecified chronic kidney disease; N18.3 Chronic kidney disease, stage 3 (moderate); E55.9 Vitamin D deficiency, unspecified; N40.0 Benign prostatic hyperplasia without lower urinary tract symptoms; M10.9 Gout, unspecified; Z86.73 Personal history of transient ischemic attack (TIA), and cerebral infarction without residual deficits; M19.90 Unspecified osteoarthritis, unspecified site; Z23 Encounter for immunization
CPT/HCPCS: 36415; 80048; 85025; 92610; 97110; 97116; 97162; 97166; 97530; 97535; 97802; J0885; 90670

== ENCOUNTER → 2018-09-23 15:23 | Outpatient (CLI) | payer MEDICARE, OTHER, SELFPAY ==
[2018-09-23 17:40] LABS: Absolute Lymphocyte Count 0.67 X10^3/ul (0.83-4.51); Absolute Neutrophil Count 4.2 X10^3/uL (2.0-7.7); Eosinophil# 0.13 X10^3/uL; Eosinophils% 2.4 % (0-5); Hematocrit 34.8 % (40-54); Hemoglobin 10.6 g/dl (13.0-16.5); Lymphocyte # 0.67 X10^3/ul (4.0); Lymphocyte % 12.6 % (19-41); Mean Corp Hgb Conc 30.5 g/gl (32-36); Mean Corpuscular Hgb 28.7 pg (27.0-32.0); Mean Corpuscular Volume 94.3 fL (80-94); Monocyte# 0.31 X10^3/uL; Monocyte% 5.8 % (0-10); Neutrophil # 4.21 X10^3/uL (2.7-7.7); Platelet Count 187 K/mm3 (150-450); RBC Distribution Width CV 14.4 % (11.6-14.6); RBC Distribution Width SD 49.2 fl (35.1-43.9); Red Blood Count 3.69 M/mm3 (4.6-6.2); White Blood Count 5.3 K/mm3 (4.4-11.0)
[2018-09-23 17:41] LABS: POSITIVE COUNT NO; POSITIVE DIFFERENTIAL NO; POSITIVE MORPHOLOGY NO
[2018-09-23 17:43] LABS: ALB/GLOB Ratio 0.8 RATIO (0.9-2.4); AST(SGOT) 15 U/L (15-37); Alanine Aminotransfer ALT/SGPT 14 U/L (16-61); Albumin, Serum 2.8 g/dL (3.2-5.0); Alkaline Phosphatase 116 U/L (45-117); Anion Gap 12 (5-15); BUN 29 mg/dL (7-18); BUN/Creat Ratio 19.5 RATIO (10-20); Calcium,Total 8.8 mg/dL (8.5-10.1); Chloride 105 mmol/L (98-107); Creatinine, Serum 1.49 mg/dL (0.70-1.30); EST Glomerular Filtration Rate 48 mL/min (>60); Est Glom Filt Rate - Afr Amer 58 mL/min (>60); Globulin 3.3 g/dL (2.2-4.2); Glucose 115 mg/dL (74-106); Potassium 3.6 mmol/L (3.5-5.1); Protein, Total 6.1 g/dL (6.4-8.2); Sodium Level 145 mmol/L (136-145)
--- OUTSIDE RECORDS SUMMARY | 2018-11-05 13:57 | XMS RPT_ITS ---
:1935 Author Organization OHIP Support Name Relationship Address Phone BULMARO SAWYER Unavailable [address] [facility] [address] + [place] [address] R Unavailable Unavailable Unavailable VASAS, DEMETRI Unavailable [address] + [place] [address] HARTLEYBULMARO Unavailable [address] [facility] [address] + [place] [address] R Unavailable Unavailable Unavailable VASAS, DEMETRI Unavailable [address] + [place] [address] HARTLEY BULMARO Unavailable [address] [facility] [address] + [place] [address] R Unavailable Unavailable Unavailable VASAS, DEMETRI Unavailable [address] + [place] [address] HARTLEYJESSICABULMARO Unavailable [address] [facility] [address] + [place] [address] R Unavailable Unavailable Unavailable VASAS, DEMETRI Unavailable [address] + [place] [address] Genesee Bulmaro Unavailable [address] [facility] [address] + [place] [address] R Unavailable Unavailable Unavailable Vasas, Demetri Unavailable [address] + [place] [address] Genesee Bulmaro Unavailable [address] [facility] [address] + [place] [address] R Unavailable Unavailable Unavailable Vasas, Demetri Unavailable [address] + [place] [address] Genesee Bulmaro Unavailable [address] [facility] [address] + [place] [address] R Unavailable Unavailable Unavailable Vasas, Demetri Unavailable [address] + [place] [address] [facility] Unavailable [address] + [place] [address] R Unavailable Unavailable Unavailable Vasas, Demetri Unavailable [address] + [place] [address] [facility] Unavailable [address] + [place] [address] R Unavailable Unavailable Unavailable Vasas, Demetri Unavailable [facility] + [place] [address] [facility] Un[facility] [address] + [place] [address] R Unavailable Unavailable Unavailable Vasas, Demetri Unavailable [address] [place], [place] [address] + [place] [address] [facility] Unavailable [address] + [place] [address] R Unavailable Unavailable Unavailable Vasas, Demetri Unavailable [facility] + [place] [address] [facility] Unavailable [address] + [place] [address] R Unavailable Unavailable Unavailable Vasas, Demetri Unavailable [facility] + [place] [address] [facility] Unavailable [address] + [place] [address] R Unavailable Unavailable Unavailable Vasas, Demetri Unavailable [facility] + [place] [address] [facility] Unavailable [address] + [place] [address] R Unavailable Unavailable Unavailable Vasas, Demetri Unavailable [address] [place], [place] [address] + [place] [address] Genesee, Bulmaro Unavailable [address] + [place] [address] R Unavailable Unavailable Unavailable Vasas, Demetri Unavailable [address] [place], [place] [address] + [place] [address] [facility] Unavailable [address] [facility] [address] + [place] [address] R Unavailable Unavailable Unavailable Vasas, Demetri Unavailable [address] + [place] [address] Genesee, Bulmaro Unavailable [address] + [place] [address] R Unavailable Unavailable Unavailable Vasas, Demetri Unavailable [address] + [place] [address] Genesee, Bulmaro Unavailable [address] + [place] [address] R Unavailable Unavailable Unavailable Vasas, Demetri Unavailable [address] + [place] [address] Genesee, Bulmaro Unavailable [address] + [place] [address] R Unavailable Unavailable Unavailable Vasas, Demetri Unavailable [address] + [place] [address] Genesee, Bulmaro Unavailable [address] + [place] [address] R Unavailable Unavailable Unavailable Vasas, Demetri Unavailable [address] + [place] [address] Genesee, Bulmaro Unavailable [address] + [place] [address] R Unavailable Unavailable Unavailable Vasas, Demetri Unavailable [address] + [place] [address] Genesee, Bulmaro Unavailable [address] + [place] [address] R Unavailable Unavailable Unavailable Vasas, Demetri Unavailable [address] + [place] [address] Genesee, Bulmaro Unavailable [address] + [place] [address] R Unavailable Unavailable Unavailable Vasas, Demetri Unavailable [address] + [place] [address] HARTLEY, BULMARO Unavailable [address] + [address] [place] [address] R Unavailable Unavailable Unavailable VASAS, DEMETRI Unavailable [address] + [place] [address] BULMARO SAWYER Unavailable Unavailable + R Unavailable Unavailable Unavailable VASAS, DEMETRI Unavailable [address] + [place] [address] Bulmaro Sawyer Unavailable [address] [facility] + [place] [address] R Unavailable Unavailable Unavailable Vasas, Demetri Unavailable [address] + [place] [address] BULMARO SAWYER Unavailable [address] + [address] [place] [address] R Unavailable Unavailable Unavailable VASAS, DEMETRI Unavailable [address] + [place] [address] BULMARO SAWYER Unavailable [address] + [address] [place] [address] R Unavailable Unavailable Unavailable VASAS, DEMETRI Unavailable [address] + [place] [address] BULMARO SAWYER Unavailable [address] [facility] + [address] [place] [address] R Unavailable Unavailable Unavailable VASAS, DEMETRI Unavailable [address] + [place] [address] BULMARO SAWYER Unavailable [address] + [address] [place] [address] R Unavailable Unavailable Unavailable VASAS, DEMETRI Unavailable [address] + [place] [address] R Unavailable Unavailable Unavailable VASAS, DEMETRI Unavailable [address] + [place] [address] R Unavailable Unavailable Unavailable VASAS, DEMETRI Unavailable [address] + [place] [address] R Unavailable Unavailable Unavailable VASAS, DEMETRI Unavailable [address] + [place] [address] R Unavailable Unavailable Unavailable VASAS, DEMETRI Unavailable [address] + [place] [address] R Unavailable Unavailable Unavailable VASAS, DEMETRI Unavailable [address] + [place] [address] R Unavailable Unavailable Unavailable VASAS, DEMETRI Unavailable [address] + [place] [address] R Unavailable Unavailable Unavailable VASAS, DEMETRI Unavailable [address] + [place] [address] R Unavailable Unavailable Unavailable VASAS, DEMETRI Unavailable [address] + [place] [address] R Unavailable Unavailable Unavailable VASAS, DEMETRI Unavailable [address] + [place] [address] Care Team Providers Name Role Phone Huerta Rah Attending Unavailable [facility] Unavailable Sementi, Gail Admitting Unavailable Bakhous, Aziz Consulting Unavailable Ashelfah, Ghasem Attending Unavailable Holden, Moi Consulting Unavailable Sementi, Gail Admitting Unavailable Sementi, Gail Attending Unavailable [facility] Unavailable Sementi, Gail Consulting Unavailable Sementi, Gail Admitting Unavailable An Platt SWITCH CLEANER-C Attending Unavailable [facility] Unavailable Bakhous, Aziz Consulting Unavailable Ashelfah, Ghasem Consulting Unavailable Tena Staples SWITCH CLEANER-C Attending Unavailable [facility] Unavailable Sementi, Gail Admitting Unavailable Ashelfah, Ghasem Attending Unavailable [facility] Unavailable Bakhous, Aziz Consulting Unavailable Holden, Moi Consulting Unavailable Ashelfah, Ghasem Consulting Unavailable Sementi, Gail Admitting Unavailable Ashelfah, Ghasem Attending Unavailable [facility] Unavailable Bakhous, Aziz Consulting Unavailable Holden, Moi Consulting Unavailable Ashelfah, Ghasem Consulting Unavailable Sementi, Gail Admitting Unavailable Ashelfah, Ghasem Attending Unavailable [facility] Unavailable Bakhous, Aziz Consulting Unavailable Holden, Moi Consulting Unavailable Ashelfah, Ghasem Consulting Unavailable Gera, Christiano Chi Admitting Unavailable Gera, Christiano Chi Attending Unavailable Gera, Christiano Chi Referring Unavailable [facility] Unavailable Marlon, Vijay Primary Care Unavailable [place], [place] Admitting Unavailable Dane, Pablito Attending Unavailable [place], [place] Admitting Unavailable [place], [place] Attending Unavailable [facility], [facility] Unavailable [place], [place] Consulting Unavailable [place], [place] Admitting Unavailable Arnaldo Greeny Attending Unavailable [facility], [facility] Unavailable Dane, Pablito Consulting Unavailable StaplesTena SWITCH CLEANER-C Attending Unavailable [facility], [facility] Unavailable StaplesTena SWITCH CLEANER-C Attending Unavailable [facility], [facility] Unavailable Marlon, Vijay Attending Unavailable Marlon, [facility] Unavailable Marlon, Vijay Attending Unavailable [facility], [facility] Unavailable Staples, Tnea SWITCH CLEANER-C Attending Unavailable [facility], [facility] Unavailable Staples, Tena SWITCH CLEANER-C Attending Unavailable Staples, Tena SWITCH CLEANER-C Attending Unavailable [facility], [facility] Unavailable ANGEL MEDRANO Attending Unavailable ANGEL MEDRANO Referring Unavailable [facility], [facility] Unavailable [facility], [facility] Unavailable Agyepong, Chase Admitting Unavailable Roxys, Aziz Consulting Unavailable Adele Bartons F Attending Unavailable Noelle, Bernardino Consulting Unavailable Agyepong, Chase Admitting Unavailable Agyepong, Chase Attending Unavailable [facility] Unavailable Agyepong, Chase Consulting Unavailable Agyepong, Chase Admitting Unavailable [facility] Unavailable Bakhous, Aziz Consulting Unavailable Dane, Pablito Attending Unavailable Darke, [place] Consulting Unavailable Dane, Pablito Consulting Unavailable Agyepong, Chase Admitting Unavailable Adele Bartons F Attending Unavailable [facility] Unavailable Bakhous, Aziz Consulting Unavailable Drake, Bernardino Consulting Unavailable Louistsoniray, Jose Guadalupe F Consulting Unavailable Agyepong, Chase Admitting Unavailable Oralia, Jose Guadalupe F Attending Unavailable [facility], [facility] Unavailable Bakhous, Aziz Consulting Unavailable Drake, Bernard[place] Consulting Unavailable Louistsoniray, Jose Guadalupe F Consulting Unavailable Agyepong, Chase Admitting Unavailable Oralia, Jose Guadalupe F Attending Unavailable [facility], [facility] Unavailable Bakhous, Aziz Consulting Unavailable Drake, Bernardino Consulting Unavailable Kotsonis, Jose Guadalupe F Consulting Unavailable Agyepong, Chase Admitting Unavailable Adele Bartons F Attending Unavailable Marlon, [facility] Unavailable Roxys, Zakia Consulting Unavailable Bernardino Drake Consulting Unavailable Jose Guadalupe Barton Consulting Unavailable Gera, Christiano Chi Admitting Unavailable Gera, Christiano Chi Attending Unavailable Gera, Christiano Chi Referring Unavailable Marlon, [facility] Unavailable Marlon, Vijay Attending Unavailable Marlon, [facility] Care Unavailable [facility], [facility] Unavailable Agyepong, Chase Admitting Unavailable [place], Rah Consulting Unavailable White, Maureen Attending Unavailable Steve, Oscar Consulting Unavailable Agyepong, Chase Admitting Unavailable Agyepong, Chase Attending [facility] Unavailable Agyepong, Chase Consulting Unavailable Agyepong, Chase Admitting Unavailable [place], Rah Attending Unavailable Marlon, [facility] Unavailable [place], Rah Consulting Unavailable AshelfahNanda Consulting Unavailable Agyepong, Chase Admitting Unavailable [place], Rah Attending Unavailable Marlon, [facility] Care Unavailable [place], Rah Consulting Unavailable Steve, Oscar Consulting Unavailable White, Maureen Consulting Unavailable Agyepong, Chase Admitting Unavailable Marlon, [facility] Unavailable [place], Rah Consulting Unavailable White, Maureen Attending Unavailable Steve, Oscar Consulting Unavailable White, Maureen Consulting Unavailable Agyepong, Chase Admitting Unavailable [place], Rah Attending Unavailable Marlon, [facility] Care Unavailable [place], Rah Consulting Unavailable Steve, Oscar Consulting Unavailable White, Maureen Consulting Unavailable Agyepong, Chase Admitting Unavailable Marlon, [facility] Unavailable [place], Rah Consulting Unavailable White, Maureen Attending Unavailable Steve, Oscar Consulting Unavailable White, Maureen Consulting Unavailable Agyepong, Chase Admitting Unavailable Marlon, [facility] Unavailable [place], Rah Consulting Unavailable White, Maureen Attending Unavailable Steve, Oscar Consulting Unavailable White, Maureen Consulting Unavailable HuertaRah Attending Unavailable HuertaRah Attending Unavailable MASCI, RAH Pritchard Referring Unavailable MASCI, RAH Pritchard Referring Unavailable MASCI, RAH A Referring Unavailable MASCI, RAH Pritchard Referring Unavailable MASCI, RAH Pritchard Referring Unavailable MASCI, RAH A Referring Unavailable MASCI, RAH A Referring Unavailable MASCI, RAH A Referring Unavailable MASCI, RAH A Referring Unavailable MASCI, RAH A Referring Unavailable MASCI, RAH A Referring Unavailable MASCI, RAH A Referring Unavailable MASCI, RAH A Referring Unavailable MASCI, RAH A Attending Unavailable MASCI, RAH A Referring Unavailable MASCI, RAH A Referring Unavailable MASCI, RAH A Referring Unavailable MASCI, RAH A Referring Unavailable MASCI, RAH A Referring Unavailable MASCI, RAH A Referring Unavailable MASCI, RAH A Referring Unavailable MASCI, RAH A Referring Unavailable MASCI, RAH A Referring Unavailable MASCI, RAH A Referring Unavailable MASCI, RAH A Referring Unavailable MASCI, RAH A Referring Unavailable MASCI, RAH A Referring Unavailable MASCI, RAH A Referring Unavailable MASCI, RAH A Referring Unavailable MASCI, RAH A Referring Unavailable MASCI, RAH A Referring Unavailable MASCI, RAH A Referring Unavailable MASCI, RAH A Referring Unavailable MASCI, RAH A Referring Unavailable MASCI, RAH A Referring Unavailable MASCI, RAH A Referring Unavailable MASCI, RAH A Referring Unavailable MASCI, RAH A Referring Unavailable KELLY, JUDY Referring Unavailable MASCI, RAH A Referring Unavailable MASCI, RAH A Referring Unavailable MASCI, RAH A Attending Unavailable MASCI, RAH A Referring Unavailable MASCI, RAH A Referring Unavailable MASCI, RAH A Referring Unavailable ANGEL MEDRANO Attending Unavailable MARLON, VIJAY MARTINEZ Referring Unavailable ANGEL MEDRANO Attending Unavailable MARLON, VIJAY Referring Unavailable MARLON, VIJAY Primary Care Unavailable ANGEL MEDRANO Attending Unavailable MARLON, VIJAY Referring Unavailable MARLON, VIJAY Primary Care Unavailable PROBLEMS PROBLEMS DATE TYPE CONDITION / CODE ATTENDING STATUS SOURCE 10/14/2018 Unknown R53.81 - Other Gera, Christiano Chi Active [place] malaise / Community R53.81(ICD-10) Hospital Repository 04/27/2016 Active [place] and ANGEL MEDRANO Active [place] stenosis of [facility] Other bilateral carotid [place] arteries / Repository I65.23(ICD-10) 05/17/2018 Active Other specified ANGEL MEDRANO Active [place] postprocedural [facility] Other states / [place] Z98.890(ICD-10) Repository 04/27/2016 Admitting Unknown / ANGEL MEDRANO General diagnosis UNK(Unknown) [facility] Repository 05/07/2018 Unknown 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 Community bilateral carotid Hospital arteries / Repository I65.23(ICD-10) 04/28/2018 Unknown I89.0 - Lymphedema, Staples, Active [place] not elsewhere Tena SWITCH CLEANER-C Community classified / Hospital I89.0(ICD-10) Repository 04/25/2018 Unknown L00 - Staphylococcal Jhoan, 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 / Hospital L00(ICD-10) Repository 03/04/2018 Unknown D64.9 - Anemia, Vijay Mason Active [place] unspecified / Community D64.9(ICD-10) Hospital Repository 03/01/2018 Unknown D69.6 - Vijay Mason Active [place] Thrombocytopenia, Community unspecified / Hospital D69.6(ICD-10) Repository 03/01/2018 Unknown E55.9 - Vitamin D Vijay Mason Active [place] deficiency, Community unspecified / Hospital E55.9(ICD-10) Repository 03/01/2018 Unknown N18.3 - Chronic Vijay Mason Active [place] kidney disease, [facility] stage 3 (moderate) / Hospital N18.3(ICD-10) Repository 01/30/2018 Active Anemia in chronic NA Active [place] kidney disease / [facility] D63.1(ICD-10) [place] Repository 01/30/2018 Active Chronic kidney NA Active [place] disease, stage 3 Clinic Main (moderate) / [place] N18.3(ICD-10) Repository 01/27/2018 Unknown Z00.00 - Encounter Jhoan, Active [place] for general adult [facility] without abnormal Repository findings / Z00.00(ICD-10) 10/24/2017 Active Chronic kidney NA Active [place] disease, unspecified Clinic Main / N18.9(ICD-10) [place] Repository PROCEDURES PROCEDURES No Procedure Records FoundRESULTS RESULTS CBC W/DIFF, AUTOMATED Collected: 10/15/2018 Status: F Source: [place] 5:13 AM [facility] HOSPITAL REPOSITORY TYPE CODE TESTS RESULT OUT OF RANGE REFERENCE UNITS LAB L100.1000 4.4-11.0 K/mm3 Low WBC 4.2 LAB L100.1200 4.6-6.2 M/mm3 Low RBC 2.92 LAB L100.1300 13.0-16.5 g/dl Low HGB 8.0 LAB L100.1400 40-54 % Low HCT 26.7 LAB L100.1500 80-94 fL Normal MCV 91.4 LAB L100.1600 27.0-32.0 pg Normal MCH 27.4 LAB L100.1700 32-36 g/gl Low MCHC 30.0 LAB L100.1810 11.6-14.6 % Normal RDW CV 14.3 LAB L100.1820 35.1-43.9 fl High RDW SD 47.7 LAB L100.1900 150-450 K/mm3 Low PLT 118 LAB L100.2000 6.2-12.0 fl Normal MPV 11.3 LAB L100.2100 47-70 % High NEUT% 81.5 LAB L100.2200 19-41 % Low LY% 11.8 LAB L100.2300 0-10 % Normal MONO% 5.3 LAB L100.2400 0-5 % Normal EO% 1.2 LAB L100.2500 0-1 % Normal BASO% 0.0 LAB L100.2550 0.0-0.9 % Normal IM GRAN % 0.200 Result Comment: IG% - Immature Granulocytes (promyelocytes, myelocytes and metamyelocytes) > 1% indicates that a LEFT SHIFT is Present. LAB L100.2620 2.0-7.7 X10 3/uL Normal Absolute Neut 3.4 LAB L100.2720 0.83-4.51 X10 3/ul Low Absolute Lymph 0.49 LAB L100.4500 Normal SMEAR COMMENT SEE COMMENT Result Comment: LYMPHOPENIA NOTED LAB L100.5500 ADEQ PLT EST Normal SLT DEC LAB L100.7300 ANISO Normal RARE LAB L100.7600 HYPOCHROMASIA Normal 1+ Performed By: #### L100.0100 #### [facility] [address] [place], [place], [address] BASIC METABOLIC Collected: 10/15/2018 Status: F Source: CINEBAR PROFILE (BMP) 5:[address] [facility] REPOSITORY TYPE CODE TESTS RESULT OUT OF RANGE REFERENCE UNITS LAB L501.0100 74-106 mg/dL High GLU 108 Result Comment: Fasting Glucose result from 100 to 125 mg/dL suggests IMPAIRED HOMEOSTASIS per A.D.A. criteria. Please note revised GLUCOSE reference range effective 2017. LAB L501.1000 7-18 mg/dL High BUN 63 LAB L501.1100 0.70-1.30 mg/dL High CREAT,SERUM 1.70 Result Comment: The validity of the calculated GFR AND GFRAA in patients over 70 years has not been determined. Clinical correlation is essential. LAB L501.1110 >60 mL/min Low EST GFR 41 Result Comment: Non- GFR Calc LAB L501.1115 >60 mL/min Low EST GFR - AA 50 Result Comment: GFR Calc LAB L501.1255 ml/min Normal Estimated CRCL 35.19 LAB L501.1300 10-20 RATIO High BUN/CRE 37.1 LAB L501.2200 8.5-10 mg/dL Low .1 CA 8.2 LAB L501.5300 136-14 mmol/L High 5 NA 149 LAB L501.5600 3.5-5. mmol/L Normal 1 K 4.6 LAB L501.5900 98-107 mmol/L High CL 112 LAB L501.6100 21.0-3 mmol/L Normal 2.0 CO2 30.0 LAB L501.6200 5-15 Normal GAP 7 Performed By: #### L500.2500 #### [facility] [address] [place], [address] BASIC METABOLIC Collected: 10/14/2018 Status: F Source: CINEBAR PROFILE (BMP) 6:[address] [facility] REPOSITORY TYPE CODE TESTS RESULT OUT OF RANGE REFERENCE UNITS LAB L501.0100 74-106 mg/dL Normal GLU 74 Result Comment: Please note revised GLUCOSE reference range effective 2017. LAB L501.1000 7-18 mg/dL High BUN 66 LAB L501.1100 0.70-1.30 mg/dL High CREAT,SERUM 1.70 Result Comment: The validity of the calculated GFR AND GFRAA in patients over 70 years has not been determined. Clinical correlation is essential. LAB L501.1110 >60 mL/min Low EST GFR 41 Result Comment: Non- GFR Calc LAB L501.1115 >60 mL/min Low EST GFR - AA 50 Result Comment: GFR Calc LAB L501.1255 ml/min Normal Estimated CRCL 35.19 LAB L501.1300 10-20 RATIO High BUN/CRE 38.8 LAB L501.2200 8.5-10 mg/dL Low .1 CA 8.2 LAB L501.5300 136-14 mmol/L Normal 5 NA 145 LAB L501.5600 3.5-5. mmol/L Normal 1 K 4.6 LAB L501.5900 98-107 mmol/L High CL 110 LAB L501.6100 21.0-3 mmol/L Normal 2.0 CO2 29.0 LAB L501.6200 5-15 Normal GAP 6 Performed By: #### L500.2500 #### [facility] [address] [place], [address] HISTORY AND PHYSICAL Observed: 10/13/2018 Status: F Source: CINEBAR EXAM 4:[address] [facility]POSITORY [facility] Medical Records Department [address] [facility] [facility] [place] [address] History and Physical 10/13/18 0748 MR#: [id number] Acct: [id number] Name: DOUG CAST Rep #: [id number] : 1935 83 From: Linda Syed MD PCP: Vijay Mason MD Status: ADM IN Y Location: [place] [address] Problem List (1) Acute delirium Status: Acute (2) Clostridium difficile colitis Status: Acute (3) Coronary artery disease Status: Chronic Qualifiers: Coronary Disease-Associated Artery/Lesion type: unspecified vessel or lesion type (4) Hypertension Status: Chronic Qualifiers: Hypertension type: essential hypertension Qualified Code(s): I10 - Essential (primary) hypertension (5) Stroke Status: Chronic Qualifiers: CVA mechanism: unspecified Qualified Code(s): I63.9 - Cerebral infarction, unspecified (6) Hyperlipidemia Status: Chronic Qualifiers: Hyperlipidemia type: unspecified Qualified Code(s): E78.5 - Hyperlipidemia, unspecified (7) Carotid artery disease Status: Chronic Qualifiers: Carotid artery disease type: unspecified Laterality: unspecified laterality Qualified Code(s): I77.9 - Disorder of arteries and arterioles, unspecified (8) Altered mental status Status: Acute History of Present Illness Date of Admission: 10/13/18 Chief Complaint: Altered mental status The patient is a 83 year old M [] Past Medical History Past Medical History (Chronic Problems): Chronic Problems Atrial fibrillation with rapid ventricular response (Chronic) Calciphylaxis (Chronic) Coronary artery disease (Chronic) Cellulitis of leg (Chronic) Healthcare associated bacterial pneumonia (Chronic) Sepsis (Chronic) Osteoarthritis (Chronic) BPH (benign prostatic hyperplasia) (Chronic) Leg ulcer (Chronic) Lymphedema (Chronic) Pleural effusion, right (Chronic) Hypertension (Chronic) Stroke (Chronic) Hyperlipidemia (Chronic) Carotid artery disease (Chronic) Anemia of chronic kidney failure (Chronic) Lymphedema of lower extremity (Chronic) Nephrolithiasis (Chronic) Gout (Chronic) CKD (chronic kidney disease), stage III (Chronic) BPH (benign prostatic hyperplasia) (Chronic) Allergies No Known Allergies Allergy (Verified 10/13/18 05:23) Home Medications: Ambulatory Orders Medication Instructions Recorded Labetalol [Trandate (Beta Mavis)] 200 mg PO BID 10/10/16 Surgical History: - - Bilateral carotid endarectomy Psychiatric History: No pertinent psych hx Lives: [place] Smoking Status: Never smoker Tobacco Use: Non-smoker Alcohol: None Drugs: None - *Family History Paternal Family History: Family History (Last Reviewed 10/08/18 @ 21:06 by Chuy Abrams DO) Mother Hyperthyroidism Father Diabetes Aortic aneurysm rupture History Items: Diabetes Maternal Family History: Family History (Last Reviewed 10/08/18 @ 21:06 by Chuy Abrams DO) Mother Hyperthyroidism Father Diabetes Aortic aneurysm rupture History Items: Heart Disease Review of Systems Unable to obtain accurate/complete ROS d/t: Unable to obtain on account of lethargy VTE Information - Inpt Only VTE Present on Admission: No VTE Pharm Prophylaxis ordered?: Yes Patient Problems: Active and Suspected Problems Acute delirium (Acute) Altered mental status (Acute) - Physical Exam General: Lethargic HEENT: Atraumatic, PERRLA, EOMI, Normocephalic Oral: Moist Mucosa Neck: Supple, No JVD, Negative Carotid Bruits Lungs: Clear to auscultation, Normal air movement Cardiovascular: Regular rate, Regular Rhythm, Normal S1, Normal S2, No murmurs Abdomen: Bowel Sounds Present, Soft, Non Tender, Non-Distended, No Hepato-splenomegaly Extremities: No edema Skin: No rashes, No breakdown Musculoskeletal: No Tenderness to Palpation of Joints or Extremities Lymphatic: No Cervical, Supraclavicular, or Inguinal Adenopathy Neurological: Cranial nerves II-XII grossly intact, Neuro grossly intact Psych/Mental Status: Normal Affect, Appropriate Vital Signs Temp Pulse Resp BP Pulse Ox 97.9 F 60 16 129/39 H 98 10/13/18 06:17 10/13/18 07:20 10/13/18 07:20 10/13/18 07:20 10/13/18 07:20 Oxygen Delivery Method Room Air Weight: 78.65 kg Body Mass Index (BMI) 24.8 Finger Stick Blood Glucose 122 Laboratory Tests Past 24 Hrs WBC 6.4 RBC 2.91 L Hgb 8.2 L Hct 27.9 L MCV 95.9 H MCH 28.2 Assessment/Plan All Active Problems Diarrhea (Acute) Clostridium difficile colitis (Acute) Blood in stool (Acute) Acute on chronic kidney failure (Acute) Hypernatremia (Acute) Hypokalemia (Acute) Delirium (Acute) Acute delirium (Acute) Altered mental status (Acute) 83-year-old with past medical history of CVA, hypertension, CKD, discharged on 11/02/2017 to TCU comes back with complaints of delirium and shortness of breath. Patient was combative in the ED, given Ativan, became lethargic. He was unarousable in PCU. ABG showed hypercapnia, respiratory acidosis 1. Acute on chronic hypoxic respiratory failure, likely secondary to medication side effect, started on BiPAP, continue to monitor mentation. 2. Acute metabolic encephalopathy, multifactorial, initially hyperactive now hypoactive delirium, the head was negative for any acute process started on IV ceftriaxone for possible UTI, will continue continue to monitor mentation. 3. Normocytic anemia,, at his baseline, 8.2 4. CKD stage III, baseline, continue to monitor 5. Possible UTI, contaminated as patient's perineum appear dirty, started on IV ceftriaxone, will continue, follow-up with urine cultures 6. Recent C. diff, on vancomycin, patient has decreased mentation, would continue on IV Flagyl for now, resume vancomycin if he is much more awake 7. Recent hypernatremia, sodium is normal 8. Recent hypokalemia, resolved 9. Hypertension 10. h/o CVA 11. Rest of history including BPH Asthma exacerbation is stable. 12. Code status: Full code. Discussed code status with patient's [id number] who will discuss with the son who is her . Agrees that patient should not be full code. The son will get back to the treatment staff on the expectations and plan. I discussed patient's care at the moment in detail. Code Visit Inpatient E AND M: [id number] Init Hosp L3 10/13/18 1659 <Electronically signed by Linda Syed MD> Date Linda Syed MD Cosigner Signature: Date (if applicable) CC: Linda Syed MD; Vijay Mason MD Signed TROPONIN-I Collected: 10/13/2018 Status: F Source: CINE[place] 3:[address] [facility] REPOSITORY Order Comment: 'TROP' Serial specimen #1, #2 or #3: 3 TYPE CODE TESTS RESULT OUT OF RANGE REFERENCE UNITS LAB L501.4010 <0.045 ng/mL Normal < 0.015 TROPONIN-I Result Comment: TROPONIN-I EXPECTED VALUES <0.045 Negative 0.045 - 0.590 Consistent with Cardiac Damage > OR = 0.600 Critical Value Not every elevated troponin is indicative of MN. These values should be used with clinical judgement in examining the patient's clinical picture for diagnosis. To establish a diagnosis of MN versus myocardial injury, there must be a demonstrated rise and/or fall in the troponin values, in addition to ischemic symptoms, EKG changes, new regional wall motion abnormality, and/or angiographical evidence. PLEASE NOTE: REFERENCE RANGES EDITED 18 Performed By: #### L501.4010 #### [facility] [place], [address] BLOOD GASES BY [facility] Collected: 10/13/2018 Status: F Source: [place] 2:[address] [facility] REPOSITORY TYPE CODE TESTS RESULT OUT OF RANGE REFERENCE UNITS LAB L9000.9990 Normal BLD GAS TYPE ART LAB L9001.1000 Normal SITE R Radial LAB L9001.1010 Normal LAURENCE TEST NA LAB L9001.1050 O2 Normal Delivery Dev Bi / C PAP LAB L9001.1070 RR Normal 12 LAB L9001.1074 Normal FI02 30 LAB L9001.1088 Normal IPAP 12 LAB L9001.1090 Normal EPAP 6 LAB L9001.1104 Normal Results To HOSP LAB L9001.1105 Normal Time Given 1400 LAB L9001.1110 7.35-7.45 Low pH - I-STAT 7.33 LAB L9001.1210 35-45 mmHg High pCO2 - ISTAT 57.3 LAB L9001.1310 75-100 mmHG Normal PO2 I-STAT 81 LAB L9001.2300 22-26 mmol/L High HCO3 ISTAT 30.2 LAB L9001.2400 -2 to +2 mmol/L High BE ISTAT 4 LAB L9001.2415 mmol/L Normal TOTAL CO2 32 ISTAT LAB L9001.2425 95-99 % Normal SO2 ISTAT 95 Performed By: #### L9000.0800 #### [facility] Point of Care [address] [place], [place] [address] TROPONIN-I Collected: 10/13/2018 Status: F Source: [place] 1:[address] [facility] REPOSITORY Order Comment: 'TROP' Serial specimen #1, #2 or #3: 2 TYPE CODE TESTS RESULT OUT OF RANGE REFERENCE UNITS LAB L501.4010 <0.045 ng/mL Normal < 0.015 TROPONIN-I Result Comment: TROPONIN-I EXPECTED VALUES <0.045 Negative 0.045 - 0.590 Consistent with Cardiac Damage > OR = 0.600 Critical Value Not every elevated troponin is indicative of MN. These values should be used with clinical judgement in examining the patient's clinical picture for diagnosis. To establish a diagnosis of MN versus myocardial injury, there must be a demonstrated rise and/or fall in the troponin values, in addition to ischemic symptoms, EKG changes, new regional wall motion abnormality, and/or angiographical evidence. PLEASE NOTE: REFERENCE RANGES EDITED 18 Performed By: #### L501.4010 #### [facility] [address] [place], [place], [id number] BLOOD GASES BY [facility] Collected: 10/13/2018 Status: F Source: MARK 10:[address] [facility] REPOSITORY TYPE CODE TESTS RESULT OUT OF RANGE REFERENCE UNITS LAB L9000.9990 Normal BLD GAS TYPE ART LAB L9001.1000 Normal SITE R Radial LAB L9001.1010 Normal LAURENCE TEST NA LAB L9001.1050 O2 Normal Delivery Dev NRB Mask LAB L9001.1055 /min Normal LPM 15.0 LAB L9001.1104 Normal Results To HOSP MD LAB L9001.1105 Normal Time Given 1051 LAB L9001.1110 7.35-7.45 Low pH - I-STAT 7.28 LAB L9001.1210 35-45 mmHg High alert pCO2 - ISTAT 68.2 LAB L9001.1310 75-100 mmHG High alert PO2 I-STAT 306 LAB L9001.2300 22-26 mmol/L High HCO3 ISTAT 31.8 LAB L9001.2400 -2 to +2 mmol/L High BE ISTAT 5 LAB L9001.2415 mmol/L Normal TOTAL CO2 34 ISTAT LAB L9001.2425 95-99 % High SO2 ISTAT 100 Performed By: #### L9000.0800 #### [facility] Point of Care [address] [facility] [place] [address] DISCHARGE SUMMARY Observed: 10/13/2018 Status: F Source: [place] 10:[address] [facility]POSITORY [facility] Medical Records Department [address] [place] [address] Discharge Summary 10/13/18 1005 MR#: [id number] Acct: [id number] Name: DOUG CAST Rep #: [id number] : 1935 83 From: Christiano Boss MD PCP: Vijay Mason MD Status: DIS IN Y Location: [place] [address] Discharge Date and Diagnosis - Problem List Patient Problems: Active and Suspected Problems Acute delirium (Acute) Date of Admission: 10/12/18 Date of Discharge: 10/13/18 - Primary Discharge Diagnosis Active and Suspected Problems Acute delirium (Acute) - Secondary Discharge Diagnosis Chronic Problems Atrial fibrillation with rapid ventricular response (Chronic) Calciphylaxis (Chronic) Coronary artery disease (Chronic) Cellulitis of leg (Chronic) Healthcare associated bacterial pneumonia (Chronic) Sepsis (Chronic) Osteoarthritis (Chronic) BPH (benign prostatic hyperplasia) (Chronic) Leg ulcer (Chronic) Lymphedema (Chronic) Pleural effusion, right (Chronic) Hypertension (Chronic) Stroke (Chronic) Hyperlipidemia (Chronic) Carotid artery disease (Chronic) Anemia of chronic kidney failure (Chronic) Lymphedema of lower extremity (Chronic) Nephrolithiasis (Chronic) Gout (Chronic) CKD (chronic kidney disease), stage III (Chronic) BPH (benign prostatic hyperplasia) (Chronic) Hospital Course and Treatment Consultations 10/12/18 16:31 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 STASIS ULCERS TO LLE Operations: None Procedures: None Summary of Care Provided: The patient is a 83 year old Male with below past medical history hospitalized for c. diff colitis, complicated by acute on chronic kidney failure, hypernatremia, hypokalemia, encephalopathy, admitted to TCU with debility, here for rehabilitation, strengthening, prior to disposition determination. 10/13/2018 4:37AM Resident increasingly short of breath, respiratory rate > 20, also more confused. Discharge to [facility] Emergency Department for evaluation, admission to hospital. Patient Problems: Active and Suspected Problems Acute delirium (Acute) - Physical Exam Vital Signs Temp Pulse Resp BP Pulse Ox 97.6 F L 58 L 22 H 147/64 H 98 10/12/18 16:00 10/13/18 04:45 10/13/18 04:45 10/12/18 16:00 10/13/18 04:45 Oxygen Flow Rate (L/min) 2 Oxygen Delivery Method Nasal Cannula Weight: 78.653 kg Body Mass Index (BMI) 25.6 Finger Stick Blood Glucose 122 POC Glucose POC Glucose 86 Discharge Diet: No Restrictions Weight Bearing Status: Weight bearing as tolerated Call your doctor if you observe: Fever of 101 or Higher, Inability to urinate, Shortness of breath, Chest pain, Uncontrolled pain Home Medications: Medications to take at Discharge Labetalol [Trandate (Beta Mavis)] 200 mg PO BID 10/10/16 Aspirin E.C. [Ecotrin] 81 mg PO DAILY 08/14/18 Finasteride [Proscar] 5 mg PO DAILY 08/19/18 Acetaminophen [Tylenol Tablet] 650 mg PO Q6H PRN PRN tab 10/02/18 Albuterol Aerosols [Ventolin Aerosols] 2.5 mg INHALATION Q2H PRN PRN vial.neb. 10/02/18 Magnesium Hydroxide [Milk Of Magnesia] 30 ml PO DAILY PRN udc 10/02/18 Allopurinol [Zyloprim] 300 mg PO DAILY 10/08/18 Apixaban [Eliquis] 2.5 mg PO BID 10/08/18 Epoetin Royer [Procrit] 10,000 units SC Q14D 10/08/18 Ergocalciferol [Vitamin D] 50,000 unit PO BURGOS 10/08/18 Furosemide [Lasix] 40 mg PO DAILY 10/08/18 Guaifenesin [Mucinex] 1,200 mg PO BID 10/08/18 Iron Polysaccharide Complex [Ferrex 150] 150 mg PO DAILYCM 10/08/18 Nutritional Supplement [Morales - ORANGE FLAVOR] 1 packet PO BIDCM 10/08/18 Pravastatin [Pravachol] 40 mg PO QHS 10/08/18 Fluoxetine [Prozac] 20 mg PO DAILY 10/12/18 Vancomcyin 125mg/5mL PO Liquid 125 mg PO Q6 10/12/18 Primary Care Physician: Vijay Mason MD [Primary Care Provider] - Please follow up with your Primary Care Physician in: 1 week. Please Follow Up With: Robby Stephens MD When: 2 weeks Please Follow Up With: Vijay Mason MD When: after discharge Disposition: Acute care Hospital Minutes spent on discharge:: 15 Patient Condition:: Guarded Medical Necessity - Tobacco Use Smoking Status: Never smoker Tobacco Use: Non-smoker Meaningful Use Info Meaningful Use Diagnoses (Choose all that apply): None applicable 10/13/18 1007 <Electronically signed by Christiano Boss MD> Date Christiano Boss MD Cosigner Signature (if applicable): Date CC: Vijay Mason MD; Christiano Boss MD Signed DISCHARGE INSTRUCTION Observed: 10/13/2018 Status: F Source: MARK 10:[address] [facility] REPOSITORY [facility] Medical Records Department [address] [place] [address] Instructions for Home/Discharge Instructions 10/13/18 1003 MR#: [id number] Acct: [id number] Name: DOUG CAST Rep #: [id number] : 1935 83 From: Christiano Boss MD PCP: Vijay Mason MD Status: DIS IN - Discharge Diagnoses Current Active Problems: Current Active and Chronic Problems Acute delirium (Acute) You will use the following diet at home:: No restrictions, Regular Your food should be the consistency of: Regular Your liquids should be the consistency of: Regular/Thin Weight Bearing Status: Weight bearing as tolerated Call your doctor if you observe: Fever of 101 or Higher, Inability to urinate, Shortness of breath, Chest pain, Uncontrolled pain Allergies/Adverse Reactions: Allergies No Known Allergies Allergy (Verified 10/13/18 05:23) Medications to take at Discharge Labetalol [Trandate (Beta Mavis)] 200 mg PO BID 10/10/16 Aspirin E.C. [Ecotrin] 81 mg PO DAILY 08/14/18 Finasteride [Proscar] 5 mg PO DAILY 08/19/18 Acetaminophen [Tylenol Tablet] 650 mg PO Q6H PRN PRN tab 10/02/18 Albuterol Aerosols [Ventolin Aerosols] 2.5 mg INHALATION Q2H PRN PRN vial.neb. 10/02/18 Magnesium Hydroxide [Milk Of Magnesia] 30 ml PO DAILY PRN udc 10/02/18 Allopurinol [Zyloprim] 300 mg PO DAILY 10/08/18 Apixaban [Eliquis] 2.5 mg PO BID 10/08/18 Epoetin Royer [Procrit] 10,000 units SC Q14D 10/08/18 Ergocalciferol [Vitamin D] 50,000 unit PO BURGOS 10/08/18 Furosemide [Lasix] 40 mg PO DAILY 10/08/18 Guaifenesin [Mucinex] 1,200 mg PO BID 10/08/18 Iron Polysaccharide Complex [Ferrex 150] 150 mg PO DAILYCM 10/08/18 Nutritional Supplement [Morales - ORANGE FLAVOR] 1 packet PO BIDCM 10/08/18 Pravastatin [Pravachol] 40 mg PO QHS 10/08/18 Fluoxetine [Prozac] 20 mg PO DAILY 10/12/18 Vancomcyin 125mg/5mL PO Liquid 125 mg PO Q6 10/12/18 Primary Care Physician: Vijay Mason MD [Primary Care Provider] - Please follow up with your Primary Care Physician in: 1 week. Test Results: Test results from this visit will be discussed in further detail at your follow-up appointment, if applicable. Please Follow Up With: Robby Stephens MD When: 2 weeks Please Follow Up With: Vijay Mason MD When: after discharge Proposed Discharge Date: 10/13/18 10/13/18 1004 <Electronically signed by Christiano Boss MD> Date Christiano Boss MD CC: Vijay Mason MD CBC W/DIFF, AUTOMATED Collected: 10/13/2018 Status: F Source: MARK 9:[address] [facility] REPOSITORY TYPE CODE TESTS RESULT OUT OF RANGE REFERENCE UNITS LAB L100.1000 4.4-11.0 K/mm3 Normal WBC 5.9 LAB L100.1200 4.6-6.2 M/mm3 Low RBC 2.96 LAB L100.1300 13.0-16.5 g/dl Low HGB 8.2 LAB L100.1400 40-54 % Low HCT 27.7 LAB L100.1500 80-94 fL Normal MCV 93.6 LAB L100.1600 27.0-32.0 pg Normal MCH 27.7 LAB L100.1700 32-36 g/gl Low MCHC 29.6 LAB L100.1810 11.6-14.6 % Normal RDW CV 14.3 LAB L100.1820 35.1-43.9 fl High RDW SD 49.1 LAB L100.1900 150-450 K/mm3 Low PLT 128 LAB L100.2000 6.2-12.0 fl Normal MPV 11.3 LAB L100.2100 47-70 % High NEUT% 84.4 LAB L100.2200 19-41 % Low LY% 8.4 LAB L100.2300 0-10 % Normal MONO% 5.1 LAB L100.2400 0-5 % Normal EO% 1.9 LAB L100.2500 0-1 % Normal BASO% 0.0 LAB L100.2550 0.0-0.9 % Normal IM GRAN % 0.200 Result Comment: IG% - Immature Granulocytes (promyelocytes, myelocytes and metamyelocytes) > 1% indicates that a LEFT SHIFT is Present. LAB L100.2620 2.0-7.7 X10 3/uL Normal Absolute Neut 5.0 LAB L100.2720 0.83-4.51 X10 3/ul Low Absolute Lymph 0.50 Performed By: #### L100.0100 #### [facility] [address] [place], [address] BNP,B-TYPE NATRIURETIC Collected: 10/13/2018 Status: F Source: [place] PEPTIDE 9:[address] [facility] REPOSITORY Order Comment: Comments: as add on test TYPE CODE TESTS RESULT OUT OF RANGE REFERENCE UNITS LAB L503.6620 0-100 pg/mL High B-TYPE 166.1 ARNOLD PEP Performed By: #### L503.6620 #### [facility] [address] [place], [address] TROPONIN-I Collected: 10/13/2018 Status: F Source: MARK 9:[address] [facility] REPOSITORY Order Comment: 'TROP' Serial specimen #1, #2 or #3: 1 TYPE CODE TESTS RESULT OUT OF RANGE REFERENCE UNITS LAB L501.4010 <0.045 ng/mL Normal < 0.015 TROPONIN-I Result Comment: TROPONIN-I EXPECTED VALUES <0.045 Negative 0.045 - 0.590 Consistent with Cardiac Damage > OR = 0.600 Critical Value Not every elevated troponin is indicative of MN. These values should be used with clinical judgement in examining the patient's clinical picture for diagnosis. To establish a diagnosis of MN versus myocardial injury, there must be a demonstrated rise and/or fall in the troponin values, in addition to ischemic symptoms, EKG changes, new regional wall motion abnormality, and/or angiographical evidence. PLEASE NOTE: REFERENCE RANGES EDITED 18 Performed By: #### L501.4010 #### [facility] [address] [place], [address] LACTIC ACID Collected: 10/13/2018 Status: F Source: [place] 8:[address] [facility] REPOS[facility]ORY Order Comment: Yes/No query for Sepsis Lactate Rule Y TYPE CODE TESTS RESULT OUT OF RANGE REFERENCE UNITS LAB L503.6005 0.4-2.0 mmol/L Normal LACTIC ACID 0.8 Performed By: #### L503.6005 #### [facility] [address] [place], [address] EMERGENCY DEPARTMENT Observed: 10/13/2018 Status: C Source: [place] SUMMARY 8:[address] [facility] REPOS[facility]ORY [facility] Medical Records Department [address] [place] [address] Emergency Department Summary 10/13/18 0736 MR#: [id number] Acct: [id number] Name: DOUG CAST Rep #: [id number] : 1935 83 From: Stanislaw Jaimes MD PCP: Vijay Mason MD Status: ADM IN ADDENDUM by Kary Ivan MD on 10/13/18 at 0835 Patient was signed out to me pending transfer to the floor. Patient's urinalysis did return with evidence of infection. With a definite source of infection and altered mental status, patient will have urine and blood cultures drawn along with a lactic acid. He is given a dose of IV Rocephin. Hospitalist has been contacted and updated on these changes. Date Kary Ivan MD cc: Vijay Mason MD * Addendum - ER Visit Summary Date of Service: 10/13/18 Chief Complaint: Altered mental status History of Present Illness: The patient is a 83 M who presents with altered mental status. He was sent down from the TCU. They had reported that he was lethargic and also short of breath. He was given an aerosol. At the initial time of nursing evaluation here he was awake and denied any complaint. At the time of my evaluation he was just repetitively yelling I cannot get up. He was also yelling his 's name who 2 years ago. I was unable to obtain any further history. Physical Examination: Afebrile pulse ox 97% on room air vitals unremarkable Moist mucous membranes Heart regular rate and rhythm No respiratory distress no wheezing Abdomen soft nontender nondistended Patient has dressings on the bilateral legs and some open wounds on both legs no erythema no drainage Patient alert but oriented to self only Test Results: EKG shows sinus bradycardia at a rate of 59 no acute changes. Labs notable for hemoglobin 8.2, BUN 71, creatinine 1.81. Chest x-ray shows progressive alveolar disease on the left and progressive right pleural fluid. CT of the head is done and pending I do not appreciate any obvious acute abnormality on my review. Urinalysis pending. Emergency Department Course and Treatment: Workup as above. We attempted to straight cath the patient also to obtain a urinalysis given his delirium. He began to punch the nurse. He was given IV Ativan. He was given IV Lasix for progressive CHF. Given his delirium I do feel he will need admitted. I spoke to the hospitalist and patient will be admitted to the PCU. Treatment Plan: [] Disposition: Admit Impression: CHF Delirium This note was generated with [employer]gl[employer] dictation software. It may contain incorrect words, spelling, and punctuation that were not noted in review of the chart prior to signing ED Disposition - Plan for ED Patient: Chief Complaint: Alt LOC Referrals: Viajy Mason MD [Primary Care Provider] - What to do if you have Problems For any increased pain, shortness of breath, bleeding, nausea or vomiting, chest pain, or any unexpected problems, contact your Primary Care Provider. Call [facility] ([phone]) or report to the closest Emergency Room. Call 911 if necessary. 10/13/18 0742 <Electronically signed by Stanislaw Jaimes MD> Date Stanislaw Jaimes MD Cosigner Signature (If Indicated): Date CC: Vijay Mason MD URINALYSIS, COMPLETE Collected: 10/13/2018 Status: F Source: MARK 8:[address] [facility] REPOSITORY Order Comment: How was Urine Obtained? CATHETER SPECIMEN TYPE CODE TESTS RESULT OUT OF RANGE REFERENCE UNITS LAB L400.3000 Yellow COLOR Normal Yellow LAB L400.3050 Clear Normal CLARITY Cloudy LAB L400.3200 Normal mg/dl Normal GLUCOSE, UR Normal LAB L400.3300 Negative mg/dL Normal BILIRUBIN URINE Negative LAB L400.3400 Negative mg/dl Normal KETONE UR Negative LAB L400.3465 1.002-1.030 Normal SP.GR. DIPSTX 1.015 LAB L400.3550 5.0 - 8.0 pH UR Normal 5.0 LAB L400.3600 Negative mg/dl High PROT 15 DIPSTX LAB L400.3700 Normal mg/dl Normal UROBILI Normal LAB L400.3750 Negative Normal NITRITE UR Negative LAB L400.3780 Negative /ul High OCCULT BLOOD-UR 150 LAB L400.3800 Negative /ul High LEUK ESTERASE 500 LAB L400.4050 0-5 /hpf WBC Normal 10-25 SEEN LAB L400.4100 0-5 /hpf Normal RBC-UA 5-10 SEEN LAB L400.4150 0-5 /hpf SQUAM Normal EPI 0-5 SEEN LAB L400.4300 None Seen /hpf 1+ Normal BACTERIA LAB L400.4350 <or=2+ /hpf 0 Normal MUCUS, URINE SEEN LAB L400.4400 0-5 /lpf Normal HYALINE CAST 0-5 SEEN LAB L400.4900 2+ Normal AMORPHOUS Performed By: #### L400.0001 #### [facility] [address] [place], [place], [address] Observed: 10/13/2018 Status: P Source: MARK CULTURE, URINE 8:[address] [facility] REPOSITORY Comments: use off of urine already collected Has pt arrived? Y Urine Culture Further studies to follow. ORGANISM 1: Yeast [place] Count 25,000-50,000 Performed By: #### M100.0650 #### [facility] [address] [place], [place], [address] CBC W/DIFF, AUTOMATED Collected: 10/13/2018 Status: F Source: MARK 6:[address] [facility] REPOSITORY TYPE CODE TESTS RESULT OUT OF RANGE REFERENCE UNITS LAB L100.1000 4.4-11.0 K/mm3 Normal WBC 6.4 LAB L100.1200 4.6-6.2 M/mm3 Low RBC 2.91 LAB L100.1300 13.0-16.5 g/dl Low HGB 8.2 LAB L100.1400 40-54 % Low HCT 27.9 LAB L100.1500 80-94 fL High MCV 95.9 LAB L100.1600 27.0-32.0 pg Normal MCH 28.2 LAB L100.1700 32-36 g/gl Low MCHC 29.4 LAB L100.1810 11.6-14.6 % Normal RDW CV 14.0 LAB L100.1820 35.1-43.9 fl High RDW SD 46.7 LAB L100.1900 150-450 K/mm3 Low PLT 127 LAB L100.2000 6.2-12.0 fl Normal MPV 11.6 LAB L100.2100 47-70 % High NEUT% 84.7 LAB L100.2200 19-41 % Low LY% 8.1 LAB L100.2300 0-10 % Normal MONO% 5.5 LAB L100.2400 0-5 % Normal EO% 1.4 LAB L100.2500 0-1 % Normal BASO% 0.0 LAB L100.2550 0.0-0.9 % Normal IM GRAN % 0.300 Result Comment: IG% - Immature Granulocytes (promyelocytes, myelocytes and metamyelocytes) > 1% indicates that a LEFT SHIFT is Present. LAB L100.2620 2.0-7.7 X10 3/uL Normal Absolute Neut 5.4 LAB L100.2720 0.83-4.51 X10 3/ul Low Absolute Lymph 0.52 Performed By: #### L100.0100 #### [facility] [address] [place], [place], [id number] COMPREHENSIVE METABOLIC Collected: 10/13/2018 Status: F Source: [facility] 6:[address] [facility] REPOSITORY TYPE CODE TESTS RESULT OUT OF RANGE REFERENCE UNITS LAB L501.0100 74-106 mg/dL Normal GLU 92 Result Comment: Please note revised GLUCOSE reference range effective 2017. LAB L501.1000 7-18 mg/dL High BUN 71 LAB L501.1100 0.70-1.30 mg/dL High CREAT,SERUM 1.81 Result Comment: The validity of the calculated GFR AND GFRAA in patients over 70 years has not been determined. Clinical correlation is essential. LAB L501.1110 >60 mL/min Low EST GFR 38 Result Comment: Non- GFR Calc LAB L501.1115 >60 mL/min Low EST GFR - AA 47 Result Comment: GFR Calc LAB L501.1255 ml/min Normal Estimated CRCL 33.05 LAB L501.1300 10-20 RATIO High BUN/CRE 39.2 LAB L501.1500 6.4-8. g/dL Low 2 T PROT 4.8 LAB L501.1800 3.2-5. g/dL Low 0 ALB 1.5 LAB L501.1950 2.2-4. g/dL Normal 2 GLOB 3.3 LAB L501.2000 0.9-2. RATIO Low 4 A/G 0.5 LAB L501.2200 8.5-10 mg/dL Low .1 CA 8.3 LAB L501.4100 15-37 U/L Normal AST 32 LAB L501.4305 45-117 U/L Normal ALK P 97 LAB L501.4405 16-61 U/L Normal ALT 20 LAB L501.4600 0.20-1 mg/dL Normal .00 T BILI 0.30 LAB L501.5300 136-14 mmol/L Normal 5 NA 143 LAB L501.5600 3.5-5. mmol/L Normal 1 K 4.7 LAB L501.5900 98-107 mmol/L High CL 109 LAB L501.6100 21.0-3 mmol/L Normal 2.0 CO2 30.0 LAB L501.6200 5-15 Low GAP 4 Performed By: #### L500.4050 #### [facility] [address] [place], [place], [id number] CHEST 1 VIEW Observed: 10/13/2018 Status: F Source: CINEBAR (PORTABLE) 6:[address] [facility] Imaging Services [address] [place] [address] Chest 1 View (Portable) MR#: [id number] Acct: [id number] Name: DOUG CAST Rep #: [id number] : 1935 M 83 From: Carmelo Canseco MD PCP: Vijay Mason MD Status: REG ER Study: Chest 1 View (Portable) Date of Exam: 10/13/18 Exam# [id number] Ordering Dr: Stanislaw Jaimes MD STUDY: X-RAY CHEST REASON FOR EXAM: Male, 83 years old. Unable to arouse TECHNIQUE: Single frontal view of the chest. COMPARISON: 10/08/2018 FINDINGS: Progressing alveolar disease on the left. Stable alveolar disease on the right. Progressing right pleural fluid. Stable left pleural fluid. Stable cardiomediastinal silhouette. Normal mediastinum and jordan. Normal visualized pulmonary arteries. Normal visualized aortic arch and descending thoracic aorta. There are diffuse degenerative changes of the visualized thoracic spine. There is degenerative osteoarthritis of the bilateral shoulders. There is no demonstrated abnormality of the visualized soft tissue structures of the upper abdomen. 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 Stable alveolar disease on the right. Progressing right pleural fluid. Stable left pleural fluid. Electronically Signed: Carmelo Canseco MD at 7:21 EST Tel , Service support , CC: Stanislaw Jaimes MD; Vijay Mason MD Safety Leader: Signed BRAIN/HEAD WITHOUT Observed: 10/13/2018 Status: F Source: MARK CONTRAST 6:[address] [facility] Imaging Services [address] [place] [address] Brain/Head without Contrast MR#: [id number] Acct: [id number] Name: DOUG CAST Rep #: [id number] : 1935 M 83 From: Carmelo Canseco MD PCP: Vijay Mason MD Status: REG ER Study: Brain/Head without Contrast Date of Exam: 10/13/18 Exam# [id number] Ordering Dr: Stanislaw Jaimes MD STUDY: CT BRAIN WITHOUT CONTRAST REASON FOR EXAM: Male, 83 years old. Confusion RADIATION DOSAGE (If Supplied By Facility): CTDIvol = ( 44.99 ) mGy, DLP = ( 1177.03 ) mGycm TECHNIQUE: Transaxial CT imaging of the brain was performed without administration of intravenous contrast material. Individualized dose optimization techniques were used for this CT. COMPARISON: 09/28/2018 FINDINGS: Multiple parotid calcifications. Normal calvarium. Bilateral lens replacements. Normal size ventricles and extra-axial spaces for the patient's age. There are areas of decreased attenuation within the white matter tracts of the supratentorial brain, consistent with microvascular disease changes. Normal age-related changes of the basal ganglia. Normal brainstem. Normal cerebellum. Stable left frontal and parietal encephalomalacia. There is no intracranial hemorrhage. There are no findings of an acute ischemic infarction. Normal visualized paranasal sinuses. CT/Brain/Head without Contrast IMPRESSION: No CT evidence of acute infarct or hemorrhage. Stable left frontal and parietal encephalomalacia. If there is clinical concern for hyperacute ischemia that is not evident by CT, MRI should be considered if possible. Electronically Signed: Carmelo Canseco MD at 7:50 EST Tel , Service support , CC: Stanislaw Jaimes MD; Vijay Mason MD Safety Leader: Signed BEDSIDE GLUCOSE Collected: 10/13/2018 Status: F Source: MARK 4:[address] [facility] REPOS[facility] TYPE CODE TESTS RESULT OUT OF RANGE REFERENCE UNITS LAB L501.080 70-110 mg/dL Normal BEDSIDE GLU 86 Result Comment: MANAGEMENT OF PATIENT CARE PER NURSING PROTOCOL Performed By: #### L501.080 #### [facility] Point of Care [address] [place] [address] Observed: 10/13/2018 Status: P Source: MARK CULTURE, BLOOD (WB) 12:[address] [facility] REPOSITORY BC No growth in 48 hours. Performed By: #### M200.1000 #### [facility] [address] [place], [id number] Observed: 10/13/2018 Status: P Source: MARK CULTURE, BLOOD (WB) 12:[address] [facility] REPOS[facility] BC No growth in 48 hours. Performed By: #### M200.1000 #### [facility] [address] [place], [address] HISTORY AND PHYSICAL Observed: 10/12/2018 Status: F Source: MARK EXAM 5:[address] [facility] Medical Records Department [address] [place] [address] History and Physical 10/12/18 1728 MR#: [id number] Acct: [id number] Name: DOUG CAST Rep #: [id number] : 1935 83 From: Christiano Boss MD PCP: Vijay Mason MD Status: ADM IN Location: [place] [address] Problem List (1) Diarrhea Status: Acute (2) Clostridium difficile colitis Status: Acute (3) Blood in stool Status: Acute (4) Acute on chronic kidney failure Status: Acute (5) Hypernatremia Status: Acute (6) Hypokalemia Status: Acute (7) Atrial fibrillation with rapid ventricular response Status: Chronic (8) Calciphylaxis Status: Chronic (9) Coronary artery disease Status: Chronic (10) Cellulitis of leg Status: Chronic (11) Delirium Status: Acute (12) Healthcare associated bacterial pneumonia Status: Chronic (13) Sepsis Status: Chronic (14) Osteoarthritis Status: Chronic (15) BPH (benign prostatic hyperplasia) Status: Chronic (16) Nephrolithiasis Status: Chronic History of Present Illness Date of Admission: 10/12/18 Chief Complaint: Here for rehabilitation, strengthening, prior to disposition determination. The patient is a 83 year old Male with below past medical history presented to [facility] Emergency Department 10/08/2018 with abnormal labs. 10/08/2018 Chest X-ray showed right mid, right lower lung consolidation, pleural effusion. Recent admission for atrial fibrillation with rapid ventricular response, started anticoagulation. Readmission for pneumonia. Increasing weakness, Increasing lethargy. Increased WBC, Decreased Hemoglobin, Low potassium, Creatinine 2. Diarrhea, fecal incontinence. Stool trace positive blood. 10/08/2018 Admit to Hospital. Stool for C. Diff. Supplement potassium. Consult Nephrology. 10/09/2018 Dr. Meyer recommended same dose Lasix. Avoid ACEI/ARBS. 10/09/2018 Gentle IV fluids. Hydrocortisone rectal suppositories for Hemorrhoids. Iron, Procrit for anemia. 10/09/2018 CT abdomen/pelvis no contrast showed right kidney stone with hydronephrosis. Colitis, Large loculated right pleural effusion, moderate left pleural effusion. Bilateral lower lung consolidation. 10/10/2018 Oral Vancomycin for C. diff colitis. D5W for hypernatremia. Stop Amoxicillin for strep HCAP, has had adequate course of treatment. 10/10/2018 Dr. Hatch recommended observation, no surgical intervention, right kidney stone not obstructive. 10/11/2018 Creatinine, sodium improving with D5W. Diarrhea resolved with oral vancomycin. Potassium corrected. 10/12/2018 Admit to TCU with debility, here for rehabilitation, strengthening, prior to disposition determination. Past Medical History Past Medical History (Chronic Problems): Chronic Problems Atrial fibrillation with rapid ventricular response (Chronic) Calciphylaxis (Chronic) Coronary artery disease (Chronic) Cellulitis of leg (Chronic) Healthcare associated bacterial pneumonia (Chronic) Sepsis (Chronic) Osteoarthritis (Chronic) BPH (benign prostatic hyperplasia) (Chronic) Leg ulcer (Chronic) Lymphedema (Chronic) Pleural effusion, right (Chronic) Hypertension (Chronic) Stroke (Chronic) Hyperlipidemia (Chronic) Carotid artery disease (Chronic) Anemia of chronic kidney failure (Chronic) Lymphedema of lower extremity (Chronic) Nephrolithiasis (Chronic) Gout (Chronic) CKD (chronic kidney disease), stage III (Chronic) BPH (benign prostatic hyperplasia) (Chronic) Allergies No Known Allergies Allergy (Verified 10/08/18 17:01) Home Medications: Ambulatory Orders Medication Instructions Recorded Surgical History: - - Bilateral carotid endarectomy Psychiatric History: No pertinent psych hx Lives: With Family - Most recently, at [facility] in [place]. Smoking Status: Never smoker Tobacco Use: Non-smoker Alcohol: None Drugs: None - *Family History Paternal Family History: Family History (Last Reviewed 10/08/18 @ 21:06 by Chuy Abrams DO) Mother Hyperthyroidism Father Diabetes Aortic aneurysm rupture History Items: Diabetes Maternal Family History: Family History (Last Reviewed 10/08/18 @ 21:06 by Cuhy Abrams DO) Mother Hyperthyroidism Father Diabetes Aortic aneurysm rupture History Items: Heart Disease Review of Systems Constitutional: Denies: Chills, Fever, Weight Change HEENT: Denies: Head Aches, Sinus Congestion, Sinus Drainage Cardiovascular: Denies: Chest Pain, Palpitations Respiratory: Denies: Cough, Shortness of breath at rest, Sputum production Gastrointestinal: Denies: Abdominal Pain, Nausea, Vomiting Genitourinary: Denies: Dysuria Musculoskeletal: Denies: Joint Pain, Joint Tenderness Skin: Denies: Rash, Wounds Neurological: Denies: Numbness, Tingling, Focal weakness Psychiatric: Denies: Anxiety, Depression, Homicidal Ideations, Suicidal Ideations Hematologic/ Lymphatic: Denies: Easy Bruising, Easy Bleeding VTE Information - Inpt Only VTE Present on Admission: No VTE Mechan Device Prophylaxis: Knee High JEAN PAUL Hose VTE Pharm Prophylaxis ordered?: No Reason prophylaxis not ordered:: Treatment Not Indicated Patient Problems: Active and Suspected Problems Diarrhea (Acute) Clostridium difficile colitis (Acute) Blood in stool (Acute) Acute on chronic kidney failure (Acute) Hypernatremia (Acute) Hypokalemia (Acute) Delirium (Acute) - Physical Exam General: Alert, Oriented x3, Cooperative HEENT: Atraumatic, PERRLA, EOMI, Normocephalic Neck: Supple, No JVD, Negative Carotid Bruits Lungs: Clear to auscultation, Normal air movement Cardiovascular: Regular rate, No murmurs Abdomen: Bowel Sounds Present, Soft, Non Tender Extremities: Capillary Refill Less than 3 Seconds, Edema - 1+ pitting edema bilaterally. Skin: No rashes, No breakdown Musculoskeletal: No Tenderness to Palpation of Joints or Extremities Neurological: Cranial nerves II-XII grossly intact Psych/Mental Status: Normal Affect, Appropriate Vital Signs Temp Pulse Resp BP Pulse Ox 97.6 F L 60 16 147/64 H 98 10/12/18 16:00 10/12/18 16:00 10/12/18 16:00 10/12/18 16:00 10/12/18 16:00 Oxygen Flow Rate (L/min) 2 Oxygen Delivery Method Nasal Cannula Weight: 78.653 kg Body Mass Index (BMI) 25.6 Finger Stick Blood Glucose 122 Assessment/Plan All Active Problems Diarrhea (Acute) Clostridium difficile colitis (Acute) Blood in stool (Acute) Acute on chronic kidney failure (Acute) Hypernatremia (Acute) Hypokalemia (Acute) Delirium (Acute) 83 year old male with below past medical history hospitalized for c. diff colitis, complicated by acute on chronic kidney failure, hypernatremia, hypokalemia, encephalopathy, admitted to TCU with debility, here for rehabilitation, strengthening, prior to disposition determination. * Debility - PT/OT. * Pain - Tylenol 1000MG Q8H PRN mild pain. * Bowel - Miralax 17GM daily PRN, Senna/colace 1 tablet BID PRN, Dulcolax 10MG daily PRN. * Pneumonia vaccination - Administer Prevnar 13 and/or Pneumovax 23 as necessary. * DVT prophylaxis - Not necessary, already on Eliquis. * Shortness of breath - Albuterol 2.5MG Q2H PRN. * Gout - Allopurinol 300MG daily. * Atrial Fibrillation - Labetalol 200MG BID, Eliquis 2.5MG BID. * Nutrition - Ensure Enlive 120ML 4x/day, Morales 1 packet BID. * Anemia - Ferrex 150MG daily, Procrit 10,000 units Q14 days. * BPH - Finasteride 5MG daily. * Depression - Fluoxetine 20MG daily. * Edema - Lasix 40MG daily. * Skin irritation - Calmoseptine TID bilateral buttocks, coccyx. * Tinea Corporis - Nystatin powder BID groin. * Hyperlipidemia - Pravastatin 40MG QHS, life expectancy short, consider stopping statin therapy. * C. difficile colitis - Vancomycin 125MG Q6H thru 10/24/2018, relapse rate high, consider tapering or prophylaxis dose. 10/12/18 [id number] <Electronically signed by Christiano Boss MD> Date Christiano Boss MD Cosigner Signature: Date (if applicable) CC: Vijay Maosn MD; Christiano Boss MD Signed DISCHARGE SUMMARY Observed: 10/12/2018 Status: F Source: CINEBAR 1:[address] [facility] Medical Records Department [address] [place] [address] Discharge Summary 10/12/18 1253 MR#: [id number] Acct: [id number] Name: DOUG CAST Rep #: [id number] : 1935 83 From: Nanda Canada MD PCP: Vijay Mason MD Status: ADM IN Location: [place] [address] Discharge Date and Diagnosis Date of Admission: 10/08/18 Date of Discharge: 10/12/18 - Primary Discharge Diagnosis #1 acute kidney injury notable stage III chronic kidney disease. #2 acute C. difficile colitis. #3 hypernatremia. #4 hypokalemia. #5 recent history of streptococcal healthcare associated pneumonia/streptococcal bacteremia, completed treatment with amoxicillin. - Secondary Discharge Diagnosis Chronic Problems Leg ulcer (Chronic) Lymphedema (Chronic) Pleural effusion, right (Chronic) Hypertension (Chronic) Stroke (Chronic) Hyperlipidemia (Chronic) Carotid artery disease (Chronic) Anemia of chronic kidney failure (Chronic) Lymphedema of lower extremity (Chronic) Nephrolithiasis (Chronic) Gout (Chronic) CKD (chronic kidney disease), stage III (Chronic) BPH (benign prostatic hyperplasia) (Chronic) Hospital Course and Treatment Imaging Results: Clinical Impression(s) from Imaging Studies Chest X-Ray 10/08/18 17:35 IMPRESSION: Right mid and lower lung consolidation and pleural effusion. Electronically Signed: Baltazar Moctezuma MD at 17:50 EST , Service support , Abdomen/Pelvis CT 10/09/18 19:37 IMPRESSION: Right renal stones with hydronephrosis. Colitis with wall thickening could be infectious or inflammatory. No obstruction. Large loculated right pleural effusion. Moderate left pleural effusion. Bilateral lower lung consolidation. Subcutaneous edema of the right lateral abdominal wall. No dominant mass. 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 Rosario, Dr. Hurtado, Dr. Meyer, nephrology. Dr. Hatch, urology. Operations: None Procedures: None Summary of Care Provided: Patient seen and examined on the day of discharge and appeared to be to be discharged to TCU. He denies any complaints. Nursing staff reports that he has been taking his medications. His vital signs are stable. This is an 83 years old male patient was sent to the ED because of abnormal labs namely leukocytosis, anemia and hypokalemia as well as weakness, diarrhea and functional decline, found to have acute kidney injury, stage III chronic kidney disease, C. difficile colitis, hyponatremia and hypokalemia. #1 acute kidney injury on top of stage III chronic kidney disease: Prerenal secondary to diarrhea and Lasix. He was treated with IV fluids. CT scan abdomen and pelvis done last night and revealed a right kidney stone with hydronephrosis. Urology consulted, stated that there is nonobstructing right kidney stone and without evidence of obstructive uropathy. Recommended no need for intervention at this time. With IV fluid therapy, his creatinine came down from 2.2 to down to 1.75 which is his baseline. Patient discharged to TCU in a stable medical condition, started back on Lasix, order given to repeat BMP in 4 days. #2 acute C. difficile colitis: Treated with oral vancomycin. He has no more diarrhea. Denied abdominal pain, nausea vomiting. Discharged on oral vancomycin to complete total of 10 days of treatment. #3 hypernatremia: Seems to be hypovolemic hypernatremia due to Lasix and diarrhea. Treated with D5 water IV fluids and his sodium returned back to normal. Maximum sodium was 150 and with treatment, came down to 140. #4 hypokalemia: Potassium replaced and corrected, discharge potassium is 4.4. #5 recent history of streptococcal healthcare associated pneumonia/streptococcal bacteremia: Patient was discharged on October 02, 2018 on amoxicillin for 7 additional days from that day which was completed. #6 chronic anemia: Normocytic anemia secondary to anemia of chronic disease. Hemoglobin has been around 8-9 g/dL. Discharge hemoglobin is 8.4 g/dL, stable at baseline. #7 paroxysmal atrial fibrillation: continued on labetalol for rate control, continued on Eliquis for anticoagulation. #8 hypertension: Blood pressure stable, continued on labetalol. #9 history of CVA: Continued on Eliquis and aspirin as well as statins. #10 benign prostatic hypertrophy: Continued on Proscar. Patient discharged to TCU in a stable medical condition, discharged on his medications without any changes, continued on Lasix and drip was, he completed his course of amoxicillin, order given to repeat BMP and CBC in 4 days, plan to follow-up with nephrology as outpatient, follow-up with PCP in 1 week. This note was generated with [employer] dictation software. It may contain incorrect words, spelling, and punctuation that were not noted in checking the note before signing. - Physical Exam General: Alert, Oriented x3, Cooperative, No apparent distress HEENT: Atraumatic, PERRLA, EOMI, Normocephalic Oral: Moist Mucosa, No Gingival or Mucosal Lesions/ Ulcerations Neck: Supple, No JVD, Negative Carotid Bruits, Trachea Midline, Thyroid Normal Size and Texture Lungs: Clear to auscultation, No wheeze, No rales, Diminished, Rhonchi, - - Decreased breath sounds at the bases, more on the right lung, rhonchi. Cardiovascular: Normal S1, Normal S2, PMI Normal, Irregular Rate Abdomen: Bowel Sounds Present, Soft, Non Tender, Non-Distended, No Hepato-splenomegaly Extremities: No clubbing, No cyanosis, Edema Lymphatic: No Cervical, Supraclavicular, or Inguinal Adenopathy Neurological: Cranial nerves II-XII grossly intact, Neuro grossly intact Psych/Mental Status: Normal Affect, Appropriate Vital Signs Temp Pulse Resp BP Pulse Ox 97.6 F L 60 16 147/68 H 98 10/12/18 08:25 10/12/18 08:25 10/12/18 08:25 10/12/18 08:25 10/12/18 08:25 Oxygen Flow Rate (L/min) 2 Oxygen Delivery Method Nasal Cannula Weight: 172 lb 2.896 oz Body Mass Index (BMI) 25.8 Finger Stick Blood Glucose 122 Intake and Output for Last 24 Hours Intake Total 2112 1396 / 1396 1581 / 1581 Output Total 100 / 100 Balance 2112 1296 / 1296 1581 / 1581 Microbiology Past 72 Hours 10/09/18 03:25 Enteric Bacteriology - Final Interface Orders 10/09/18 03:25 C. difficile DNA Amplification - Final Stool Toxigenic C. difficile DNA Laboratory Tests Past 24 Hrs WBC 7.2 RBC 3.08 L Hgb 8.4 L Hct 29.7 L MCV 96.4 H MCH 27.3 MCHC 28.3 L RDW 14.2 Home Medications: Medications to take at Discharge Labetalol [Trandate (Beta Mavis)] 200 mg PO BID 10/10/16 Aspirin E.C. [Ecotrin] 81 mg PO DAILY 08/14/18 Finasteride [Proscar] 5 mg PO DAILY 08/19/18 Acetaminophen [Tylenol Tablet] 650 mg PO Q6H PRN PRN tab 10/02/18 Albuterol Aerosols [Ventolin Aerosols] 2.5 mg INHALATION Q2H PRN PRN vial.neb. 10/02/18 Magnesium Hydroxide [Milk Of Magnesia] 30 ml PO DAILY PRN udc 10/02/18 Allopurinol [Zyloprim] 300 mg PO DAILY 10/08/18 Apixaban [Eliquis] 2.5 mg PO BID 10/08/18 Epoetin Royer [Procrit] 10,000 units SC Q14D 10/08/18 Ergocalciferol [Vitamin D] 50,000 unit PO BURGOS 10/08/18 Furosemide [Lasix] 40 mg PO DAILY 10/08/18 Guaifenesin [Mucinex] 1,200 mg PO BID 10/08/18 Iron Polysaccharide Complex [Ferrex 150] 150 mg PO DAILYCM 10/08/18 Nutritional Supplement [Morales - ORANGE FLAVOR] 1 packet PO BIDCM 10/08/18 Pravastatin [Pravachol] 40 mg PO QHS 10/08/18 Vancomcyin 125mg/5mL PO Liquid 125 mg PO Q6 7 Days po.syringe 10/12/18 Following Prescrptions Were Given to Patient: Vancomcyin 125mg/5mL PO Liquid 125 mg PO Q6 7 Days po.syringe Other Amb Orders: Basic Metabolic Profile (BMP) Time Frame: 10/16/18, Location: Laboratory CBC W/Diff, Automated Time Frame: 10/16/18, Location: Laboratory Primary Care Physician: Vijay Mason MD [Primary Care Provider] - Please follow up with your Primary Care Physician in: 1 week. Please Follow Up With: Robby Stephens MD When: 2 weeks. Disposition: [facility] facility Minutes spent on discharge:: 34 Patient Condition:: Stable Medical Necessity - Tobacco Use Smoking Status: Never smoker Tobacco Use: Non-smoker Meaningful Use Info Meaningful Use Diagnoses (Choose all that apply): None applicable Code Visit Inpatient E AND M: 05224 Disch Hosp 10/12/18 1301 <Electronically signed by Nanda Canada MD> Date Nanda Canada MD Cosigner Signature (if applicable): Date CC: Zakia Meyer MD; Nanda Canada; Diane Rosario M.D.; Vijay Mason MD Signed TRANSFER TO EXTENDED Observed: 10/12/2018 Status: F Source: [facility] 9:[address] [facility] Medical Records Department [address] [place] [id number] Transfer to Extended Care MR#: [id number] Acct: [id number] Name: DOUG CAST Rep #: [id number] : 1935 83 From: Nanda Canada MD PCP: Vijay Mason MD Status: ADM IN DOUG CAST [id number] (Patient) (Health Ins. Claim No.) (Day of Discharge to Facility) Certification of patient admission REQUIRED AT TIME OF ADMISSION. I CERTIFY THAT POST-HOSPITAL ECF SERVICES ARE REQUIRED TO BE GIVEN ON AN IN-PATIENT BASIS BECAUSE OF THE ABOVE NAMED PATIENT'S NEED FOR ALF CARE ON A CONTINUING BASIS FOR THE CONDITION(S) FOR WHICH HE/SHE WAS RECEIVING IN-PATIENT HOSPITAL SERVICES PRIOR TO HIS/HER TRANSFER TO THE [facility]. 10/12/18 0937 <Electronically signed by Nanda Canada MD> Date Nanda Canada MD - Diet 10/08/18 20:54 Diet: Renal: 60 gm protein Is pt able to select menu?: No - Routine Orders/Code Status O2 Liters per Minute: 2 O2 Frequency: Continuous Keep PO Greater than or Equal to (%): 92 Routine Lab Work: CBC, BMP - Wound(s) COCCYX Wound Type: Pressure Injury LEFT POSTERIOR CALF Wound Type: Stasis Ulcer Dressing Change: Adaptic cleft Wound Type: moisture associated Dressing Change: calmoseptine left buttock Wound Type: Pressure Injury - Suggestions for Active Care Change Position every (hours): 3 Hours to sit in a chair: 2 Times a day to sit in chair: 3 - Therapies Weight Bearing: Weight bearing as tolerated Physical Therapy: Eval and Treat Occupational Therapy: Eval and Treat Speech Therapy: Eval and Treat - Allergies/Procedures Done in Hospital Allergies/Adverse Reactions: Allergies No Known Allergies Allergy (Verified 10/08/18 17:01) - Type of Care/Length of Stay Estimated LOS: Convalescent Care Less Than 30 days Type of Care Needed: Skilled Rehab Potential: Fair Prognosis: Fair - Additional Orders/Day of Discharge H AND P will serve as current which was dated: 10/08/18 Day of Discharge: 10/12/18 - Dietary and Speech Recommendations Dietitian Recommendations/Changes: Poor oral intake- would not recommend renal diet at this time. Rec diet change to cardiac/low cholesterol, low sodium. Rec continue Morales BID for wound healing. Will d/c Nepro CarbSteady- not appropriate for non- dialysis patients. Will replace ONS w/ Ensure Enlive as intake appears poor this date. - Follow Up Care Primary Care Physician: Vijay Mason MD [Primary Care Provider] - Please follow up with your Primary Care Physician in: 1 week. Please Follow Up With: Robby Stephens MD When: 2 weeks. 10/12/18 0937 <Electronically signed by Nanda Canada MD> Date Nanda Canada MD CC: Zakia Meyer MD; Fernando Hatch MD; Vijay Mason MD Signed BASIC METABOLIC Collected: 10/12/2018 Status: F Source: CINEBAR PROFILE (BMP) 6:[address] [facility] REPOSITORY TYPE CODE TESTS RESULT OUT OF RANGE REFERENCE UNITS LAB L501.0100 74-106 mg/dL High GLU 114 Result Comment: Fasting Glucose result from 100 to 125 mg/dL suggests IMPAIRED HOMEOSTASIS per A.D.A. criteria. Please note revised GLUCOSE reference range effective 2017. LAB L501.1000 7-18 mg/dL High BUN 68 LAB L501.1100 0.70-1.30 mg/dL High CREAT,SERUM 1.75 Result Comment: The validity of the calculated GFR AND GFRAA in patients over 70 years has not been determined. Clinical correlation is essential. LAB L501.1110 >60 mL/min Low EST GFR 40 Result Comment: Non- GFR Calc LAB L501.1115 >60 mL/min Low EST GFR - AA 48 Result Comment: GFR Calc LAB L501.1255 ml/min Normal Estimated CRCL 32.03 LAB L501.1300 10-20 RATIO High BUN/CRE 38.9 LAB L501.2200 8.5-10 mg/dL Low .1 CA 8.0 LAB L501.5300 136-14 mmol/L Normal 5 NA 142 LAB L501.5600 3.5-5. mmol/L Normal 1 K 4.4 LAB L501.5900 98-107 mmol/L High CL 109 LAB L501.6100 21.0-3 mmol/L Normal 2.0 CO2 27.0 LAB L501.6200 5-15 Normal GAP 6 Performed By: #### L500.2500 #### [facility] [address] [place], [place], [address] CBC W/DIFF, AUTOMATED Collected: 10/12/2018 Status: F Source: MARK 6:[address] [facility] REPOSITORY TYPE CODE TESTS RESULT OUT OF RANGE REFERENCE UNITS LAB L100.1000 4.4-11.0 K/mm3 Normal WBC 7.2 LAB L100.1200 4.6-6.2 M/mm3 Low RBC 3.08 LAB L100.1300 13.0-16.5 g/dl Low HGB 8.4 LAB L100.1400 40-54 % Low HCT 29.7 LAB L100.1500 80-94 fL High MCV 96.4 LAB L100.1600 27.0-32.0 pg Normal MCH 27.3 LAB L100.1700 32-36 g/gl Low MCHC 28.3 LAB L100.1810 11.6-14.6 % Normal RDW CV 14.2 LAB L100.1820 35.1-43.9 fl High RDW SD 47.4 LAB L100.1900 150-450 K/mm3 Low PLT 122 LAB L100.2000 6.2-12.0 fl Normal MPV 11.6 LAB L100.2100 47-70 % High NEUT% 85.0 LAB L100.2200 19-41 % Low LY% 6.8 LAB L100.2300 0-10 % Normal MONO% 6.1 LAB L100.2400 0-5 % Normal EO% 1.8 LAB L100.2500 0-1 % Normal BASO% 0.0 LAB L100.2550 0.0-0.9 % Normal IM GRAN % 0.300 Result Comment: IG% - Immature Granulocytes (promyelocytes, myelocytes and metamyelocytes) > 1% indicates that a LEFT SHIFT is Present. LAB L100.2620 2.0-7.7 X10 3/uL Normal Absolute Neut 6.1 LAB L100.2720 0.83-4.51 X10 3/ul Low Absolute Lymph 0.49 Performed By: #### L100.0100 #### [facility] [address] [place], [address] CBC W/DIFF, AUTOMATED Collected: 10/11/2018 Status: F Source: MARK 5:[address] [facility] REPOSITORY TYPE CODE TESTS RESULT OUT OF RANGE REFERENCE UNITS LAB L100.1000 4.4-11.0 K/mm3 Normal WBC 7.7 LAB L100.1200 4.6-6.2 M/mm3 Low RBC 3.08 LAB L100.1300 13.0-16.5 g/dl Low HGB 8.5 LAB L100.1400 40-54 % Low HCT 29.4 LAB L100.1500 80-94 fL High MCV 95.5 LAB L100.1600 27.0-32.0 pg Normal MCH 27.6 LAB L100.1700 32-36 g/gl Low MCHC 28.9 LAB L100.1810 11.6-14.6 % High RDW CV 14.8 LAB L100.1820 35.1-43.9 fl High RDW SD 51.7 LAB L100.1900 150-450 K/mm3 Low PLT 127 LAB L100.2000 6.2-12.0 fl Normal MPV 11.7 LAB L100.2100 47-70 % High NEUT% 87.4 LAB L100.2200 19-41 % Low LY% 7.1 LAB L100.2300 0-10 % Normal MONO% 4.2 LAB L100.2400 0-5 % Normal EO% 1.3 LAB L100.2500 0-1 % Normal BASO% 0.0 LAB L100.2550 0.0-0.9 % Normal IM GRAN % 0.000 Result Comment: IG% - Immature Granulocytes (promyelocytes, myelocytes and metamyelocytes) > 1% indicates that a LEFT SHIFT is Present. LAB L100.2620 2.0-7.7 X10 3/uL Normal Absolute Neut 6.7 LAB L100.2720 0.83-4.51 X10 3/ul Low Absolute Lymph 0.55 Performed By: #### L100.0100 #### [facility] [address] [place], [place], [address] BASIC METABOLIC Collected: 10/11/2018 Status: F Source: MARK PROFILE ([facility]) 5:[address] [facility] REPOSITORY TYPE CODE TESTS RESULT OUT OF RANGE REFERENCE UNITS LAB L501.0100 74-106 mg/dL High GLU 122 Result Comment: Fasting Glucose result from 100 to 125 mg/dL suggests IMPAIRED HOMEOSTASIS per A.D.A. criteria. Please note revised GLUCOSE reference range effective 2017. LAB L501.1000 7-18 mg/dL High BUN 78 LAB L501.1100 0.70-1.30 mg/dL High CREAT,SERUM 1.96 Result Comment: The validity of the calculated GFR AND GFRAA in patients over 70 years has not been determined. Clinical correlation is essential. LAB L501.1110 >60 mL/min Low EST GFR 35 Result Comment: Non- GFR Calc LAB L501.1115 >60 mL/min Low EST GFR - AA 42 Result Comment: GFR Calc LAB L501.1255 ml/min Normal Estimated CRCL 28.60 LAB L501.1300 10-20 RATIO High BUN/CRE 39.8 LAB L501.2200 8.5-10 mg/dL Low .1 CA 8.3 LAB L501.5300 136-14 mmol/L High 5 NA 146 LAB L501.5600 3.5-5. mmol/L Normal 1 K 4.4 LAB L501.5900 98-107 mmol/L High CL 112 LAB L501.6100 21.0-3 mmol/L Normal 2.0 CO2 29.0 LAB L501.6200 5-15 Normal GAP 5 Performed By: #### L500.2500 #### [facility] [address] [facility] [place], [address] CONSULTATION Observed: 10/10/2018 Status: F Source: CINEBAR 8:[address] [facility] REPOSITORY [facility] Medical Records Department [address] [place] [address] Consultation 10/10/18 0803 MR#: [id number] Acct: [id number] Name: DOUG CAST Rep #: [id number] : 1935 83 From: Fernando Hatch MD PCP: Vijay Mason MD Status: ADM IN Location: [facility] [id number] Reason for Consult Date of Consultation: 10/10/18 Reason for Consultation: kidney stone History of Present Illness: The patient is a 83 year old [facility] with multiple medical problems and as a non obstructive stone recommend observation. Past Medical History Past Medical History (Chronic Problems): Chronic Problems Leg ulcer (Chronic) Lymphedema (Chronic) Pleural effusion, right (Chronic) Hypertension (Chronic) Stroke (Chronic) Hyperlipidemia (Chronic) Carotid artery disease (Chronic) Anemia of chronic kidney failure (Chronic) Lymphedema of lower extremity (Chronic) Nephrolithiasis (Chronic) Gout (Chronic) CKD (chronic kidney disease), stage III (Chronic) BPH (benign prostatic hyperplasia) (Chronic) Allergies No Known Allergies Allergy (Verified 10/08/18 17:01) Home Medications: Ambulatory Orders Medication Instructions Recorded Labetalol [Trandate (Beta Mavis)] 200 mg PO BID 10/10/16 Aspirin E.C. [Ecotrin] 81 mg PO DAILY 08/14/18 Finasteride [Proscar] 5 mg PO DAILY 08/19/18 Surgical History: - - Bilateral carotid endarectomy Lives: With Family, - - currently living [facility] [place] Smoking Status: Never smoker Tobacco Use: Non-smoker Alcohol: Occasional Drugs: None - *Family History Paternal Family History: Family History (Last Reviewed 10/08/18 @ 21:06 by Chuy Abrams DO) Mother Hyperthyroidism Father Diabetes Aortic aneurysm rupture History Items: Diabetes Maternal Family History: Family History (Last Reviewed 10/08/18 @ 21:06 by Chuy Abrams DO) Mother Hyperthyroidism Father Diabetes Aortic aneurysm rupture History Items: Heart Disease Physical Exam - Physical Exam Vital Signs Temp 98.7 F 10/10/18 03:09 Pulse 68 10/10/18 03:09 Resp 20 H 10/10/18 03:09 BP 121/47 H 10/10/18 03:09 Pulse Ox 95 10/10/18 03:09 Intake AND Output General: Alert HEENT: Atraumatic Neck: Supple Lungs: Normal air movement Microbiology Past 72 Hours 10/09/18 03:25 Enteric Bacteriology - Final Interface Orders 10/09/18 03:25 C. difficile DNA Amplification - Final Laboratory Tests Past 24 Hrs WBC 8.3 RBC 3.15 L Hgb 8.7 L Hct 30.5 L MCV 96.8 H MCH 27.6 MCHC 28.5 L RDW 14.5 RDW Differential 48.1 H WBC RBC Hgb Assessment/Plan stone in right kidney no obstruction no hydro for now recommend observation call with questions. 10/10/18 08 <Electronically signed by Fernando Hatch MD> Date Fernando Hatch MD Cosigner Signature (if applicable): Date CC: Zakia Meyer MD; Fernando Hatch MD; Vijay Mason MD Signed CBC W/DIFF, AUTOMATED Collected: 10/10/2018 Status: F Source: MARK 5:[address] [facility] REPOSITORY TYPE CODE TESTS RESULT OUT OF RANGE REFERENCE UNITS LAB L100.1000 4.4-11.0 K/mm3 Normal WBC 8.3 LAB L100.1200 4.6-6.2 M/mm3 Low RBC 3.15 LAB L100.1300 13.0-16.5 g/dl Low HGB 8.7 LAB L100.1400 40-54 % Low HCT 30.5 LAB L100.1500 80-94 fL High MCV 96.8 LAB L100.1600 27.0-32.0 pg Normal MCH 27.6 LAB L100.1700 32-36 g/gl Low MCHC 28.5 LAB L100.1810 11.6-14.6 % Normal RDW CV 14.5 LAB L100.1820 35.1-43.9 fl High RDW SD 48.1 LAB L100.1900 150-450 K/mm3 Low PLT 123 LAB L100.2000 6.2-12.0 fl Normal MPV 11.4 LAB L100.2100 47-70 % High NEUT% 90.5 LAB L100.2200 19-41 % Low LY% 5.1 LAB L100.2300 0-10 % Normal MONO% 3.5 LAB L100.2400 0-5 % Normal EO% 0.7 LAB L100.2500 0-1 % Normal BASO% 0.1 LAB L100.2550 0.0-0.9 % Normal IM GRAN % 0.100 Result Comment: IG% - Immature Granulocytes (promyelocytes, myelocytes and metamyelocytes) > 1% indicates that a LEFT SHIFT is Present. LAB L100.2620 2.0-7.7 X10 3/uL Normal Absolute Neut 7.5 LAB L100.2720 0.83-4.51 X10 3/ul Low Absolute Lymph 0.42 Performed By: #### L100.0100 #### [facility] [address] [facility] [place], [address] BASIC METABOLIC Collected: 10/10/2018 Status: F Source: CINEBAR PROFILE (BMP) 5:[address] [facility] REPOSITORY TYPE CODE TESTS RESULT OUT OF RANGE REFERENCE UNITS LAB L501.0100 74-106 mg/dL High GLU 107 Result Comment: Fasting Glucose result from 100 to 125 mg/dL suggests IMPAIRED HOMEOSTASIS per A.D.A. criteria. Please note revised GLUCOSE reference range effective 2017. LAB L501.1000 7-18 mg/dL High BUN 73 LAB L501.1100 0.70-1.30 mg/dL High CREAT,SERUM 2.22 Result Comment: The validity of the calculated GFR AND GFRAA in patients over 70 years has not been determined. Clinical correlation is essential. LAB L501.1110 >60 mL/min Low EST GFR 30 Result Comment: Non- GFR Calc LAB L501.1115 >60 mL/min Low EST GFR - AA 37 Result Comment: GFR Calc LAB L501.1255 ml/min Normal Estimated CRCL 25.25 LAB L501.1300 10-20 RATIO High BUN/CRE 32.9 LAB L501.2200 8.5-10 mg/dL Low .1 CA 8.3 LAB L501.5300 136-14 mmol/L High 5 NA 150 LAB L501.5600 3.5-5. mmol/L Normal 1 K 4.1 LAB L501.5900 98-107 mmol/L High CL 114 LAB L501.6100 21.0-3 mmol/L Normal 2.0 CO2 30.0 LAB L501.6200 5-15 Normal GAP 6 Performed By: #### L500.2500, L501.5200 #### [facility] [address] [facility] [place], [address] MAGNESIUM Collected: 10/10/2018 Status: F Source: CINEBAR 5:[address] [facility] REPOSITORY TYPE CODE TESTS RESULT OUT OF RANGE REFERENCE UNITS LAB L501.5200 1.6-2.6 mg/dL Normal MG 2.0 Performed By: #### L500.2500, L501.5200 #### [facility] [address] [place], [address] ABDOMEN/PELVIS WITHOUT Observed: 10/09/2018 Status: F Source: MARK CONT 7:[address] [facility] REPOSITORY [facility] Imaging Services [address] [address] Abdomen/Pelvis without Cont MR#: [id number] Acct: [id number] Name: DOUG CAST Rep #: [id number] : 1935 M 83 From: Baltazar Moctezuma MD PCP: Vijay Mason MD Status: ADM IN Study: Abdomen/Pelvis without Cont Date of Exam: 10/09/18 Exam# [id number] Ordering Dr: Nanda Canada MD STUDY: CT ABDOMEN AND PELVIS WITHOUT CONTRAST REASON FOR EXAM: Male, 83 years old. Large right flank mass RADIATION DOSAGE (If Supplied By Facility): CTDIvol = ( 20.47 ) mGy, DLP = ( 1263.61 ) mGycm TECHNIQUE: Transaxial images were obtained from the dome of the diaphragm to the symphysis pubis without oral contrast, and without intravenous contrast. Sagittal and coronal images were reconstructed. Individualized dose optimization techniques were used for this CT. COMPARISON: May 07, 2017 FINDINGS: Right mid and bilateral lower lung airspace opacities. Moderate left pleural effusion. Large right pleural effusion with loculation. Coronary artery calcifications. Normal liver. Normal gallbladder and extrahepatic biliary system. Normal spleen. Normal pancreas. Normal bilateral adrenal glands. There is 1.1 cm stone in the lower pole of the right kidney. There is 0.3 cm stones in the midpole. There are multiple 0.4 to 0.5 cm stones in the right renal pelvis. There is mild right hydronephrosis. Normal left kidney. Normal visualized stomach. Normal small intestine. Mild diffuse wall thickening of the colon. The appendix is visualized and appears normal. Normal abdominal aorta. Normal inferior vena cava. Normal retroperitoneum. Normal urinary bladder. There are prostatic calcifications. Mild free fluid in the abdomen and pelvis. Subcutaneous edema of the right lateral abdominal wall. There are diffuse degenerative changes of the visualized lumbar spine. Arthritic change of the hips. CT/Abdomen/Pelvis without Cont IMPRESSION: Right renal stones with hydronephrosis. Colitis with wall thickening could be infectious or inflammatory. No obstruction. Large loculated right pleural effusion. Moderate left pleural effusion. Bilateral lower lung consolidation. Subcutaneous edema of the right lateral abdominal wall. No dominant mass. Electronically Signed: Baltazar Moctezuma MD at 21:28 EST , Service support , CC: Nanda Canada; Vijay Mason MD Safety Leader: Signed UREA NITROGEN, URINE Collected: 10/09/2018 Status: F Source: MARK 10:[address] [facility] REPOSITORY TYPE CODE TESTS RESULT OUT OF RANGE REFERENCE UNITS LAB L502.0715 NO RANGE EST. mg/dL Normal URINE 793 UREA Performed By: #### L502.0715 #### [facility] [address] [place], [place], [address] CREATININE, URINE Collected: 10/09/2018 Status: F Source: MARK (RANDOM) 10:[address] [facility] REPOSITORY TYPE CODE TESTS RESULT OUT OF RANGE REFERENCE UNITS LAB L501.1200 NO RANGE EST. mg/dL Normal UR CREAT 88.30 Performed By: #### L501.1200 #### [facility] [address] [place], [address] CONSULTATION Observed: 10/09/2018 Status: F Source: MARK 7:[address] [facility] REPOSITORY [facility] Medical Records Department [address] [place] [address] Consultation 10/09/18 0731 MR#: [id number] Acct: [id number] Name: DOUG CAST Rep #: [id number] : 1935 83 From: Zakia Meyer MD PCP: Vijay Mason MD Status: ADM IN Y Location: [facility] [id number] Problem List (1) Acute kidney injury superimposed on chronic kidney disease Status: Chronic (2) Hypernatremia Status: Acute (3) Hypokalemia Status: Acute Consultation - Renal PCP/ Referring MD: Requesting physician: [] Primary care physician: Vijay Mason MD - History of Present Illness History of Present Illness: The patient is a 83 year old M past medical history of CVA, chronic kidney disease stage III, hypertension, A. fib, hyperlipidemia, bilateral lymphedema, anemia, recent pneumonia with acute kidney injury from prerenal etiology during his last admission in July 2018. [facility]. Stool test came back positive for blood. Patient was on antibiotics at the prison for pneumonia treatment. Patient was admitted for possible C. difficile colitis infection. Renal team was consulted for worsening kidney function. During patient hospitalization in July 2018 patient had an AK I from prerenal . Creatinine peaked at 3.5 at that time creatinine improved with hydration to baseline 1.4. Earlier this months creatinine increased to 2.7. Patient presented with a creatinine 2.3. Creatinine today is better at 2.7. Patient was on Lasix 40 mg p.o. daily at the prison. No NSAIDs used. No recent IV contrast exposure Review of system: 12 systems review is negative except for some diarrhea which is better than when he presented [] - Allergies Allergies: Allergies No Known Allergies Allergy (Verified 10/08/18 17:01) - Current Medications Current Medications: Current Medications Acetaminophen (Tylenol) 650 mg PO Q6H PRN PRN PRN Reason: Mild Pain (scale 0-3)/T>100.7 Albuterol Sulfate (Ventolin Aerosols) 2.5 mg INHALATION Q2H PRN PRN PRN Reason: sob/wheezing Allopurinol (Zyloprim) 300 mg PO DAILY [facility] Amoxicillin (Amoxil) 500 mg PO Q12 [facility] Last Admin: 10/08/18 21:50 Dose: 500 mg Apixaban (Eliquis) 2.5 mg PO BID ANDRE Last Admin: 10/08/18 21:50 Dose: 2.5 mg Aspirin (Ecotrin) 81 mg PO DAILY [facility] Epoetin Royer (Procrit) 10,000 units SC Q14D [facility] Ergocalciferol (Vitamin D) 50,000 unit PO BURGOS [facility] Finasteride (Proscar) 5 mg PO DAILY [facility] Furosemide (Lasix) 40 mg PO DAILY [facility] Guaifenesin (Mucinex) 1,200 mg PO BID [facility] Last Admin: 10/08/18 21:51 Dose: 1,200 mg Hydrocortisone Acetate (Anusol Hc) 25 mg RECTAL BID [facility] Stop: 10/11/18 10:01 Last Admin: 10/08/18 23:54 Dose: 25 mg Hydrocortisone Acetate (Anusol Hc) 25 mg RECTAL BID PRN PRN Labetalol HCl (Trandate) 200 mg PO BID [facility] Last Admin: 10/08/18 21:50 Dose: 200 mg Nutritional Formula (Morales - Sully Flavor) 1 packet PO BIDCM [facility] Nutritional Formula (Nepro Carb Steady) 120 ml PO 4X/DAY [facility] Polysaccharide Iron Complex (Ferrex 150) 150 mg PO DAILYCM [facility] Potassium Chloride (K-Dur) 20 meq PO BIDCM [facility] Stop: 10/09/18 08:01 Last Admin: 10/08/18 21:50 Dose: 20 meq Pravastatin Sodium (Pravachol) 40 mg PO QHS [facility] Last Admin: 10/08/18 21:50 Dose: 40 mg Sodium Chloride () 5 - 15 ml IV UD PRN PRN Reason: SALINE FLUSH - Past Medical History Past Medical History (Chronic Problems): Chronic Problems Leg ulcer (Chronic) Lymphedema (Chronic) Pleural effusion, right (Chronic) Hypertension (Chronic) Stroke (Chronic) Hyperlipidemia (Chronic) Carotid artery disease (Chronic) Anemia of chronic kidney failure (Chronic) Acute kidney injury superimposed on chronic kidney disease (Chronic) Cellulitis (Chronic) 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) Lymphedema of lower extremity (Chronic) Nephrolithiasis (Chronic) Gout (Chronic) CKD (chronic kidney disease), stage III (Chronic) BPH (benign prostatic hyperplasia) (Chronic) Anemia (Chronic) Chronic renal insufficiency, stage III (moderate) (Chronic) Arthritis (Chronic) - Past Surgical History Surgical History: - - Bilateral carotid endarectomy - Social History Smoking Status: Never smoker Alcohol: Occasional Drugs: None - Family History Paternal Family History: Family History (Last Reviewed 10/08/18 @ 21:06 by Chuy Abrams DO) Mother Hyperthyroidism Father Diabetes Aortic aneurysm rupture History Items: Diabetes Maternal Family History: Family History (Last Reviewed 10/08/18 @ 21:06 by Chuy Abrams DO) Mother Hyperthyroidism Father Diabetes Aortic aneurysm rupture History Items: Heart Disease Patient Problems: Active and Suspected Problems Diarrhea (Acute) Hematochezia (Acute) Hypokalemia (Acute) Hypernatremia (Acute) Hypokalemia (Acute) - Physical Exam General: Alert, Oriented x3 HEENT: Atraumatic Oral: Moist Mucosa Neck: Supple, No JVD Lungs: Clear to auscultation, Normal air movement, No rhonchi Cardiovascular: Regular rate, Regular Rhythm Abdomen: Bowel Sounds Present, Soft, Non Tender Extremities: No clubbing, No cyanosis, - - +2 edema of lower extremities Musculoskeletal: No Tenderness to Palpation of Joints or Extremities Lymphatic: No Cervical, Supraclavicular, or Inguinal Adenopathy Neurological: Cranial nerves II-XII grossly intact Psych/Mental Status: Normal Affect Vital Signs Temp Pulse Resp BP Pulse Ox 98.5 F 66 16 120/43 L 98 10/09/18 03:14 10/09/18 07:20 10/09/18 03:14 10/09/18 03:14 10/09/18 03:14 Oxygen Flow Rate (L/min) 2 Oxygen Delivery Method Nasal Cannula Weight: 78.1 kg Body Mass Index (BMI) 25.8 Finger Stick Blood Glucose 122 Intake and Output for Last 24 Hours Intake Total 300 / 300 200 / 200 Output Total 150 / 150 100 / 100 Balance 150 / 150 100 / 100 Microbiology Past 72 Hours 10/09/18 03:25 Stool Lactoferrin - Final Stool 10/08/18 17:40 Stool Occult Blood (ALDEN) - Final Stool Occult Blood Positive Laboratory Tests Past 24 Hrs WBC 10.7 RBC 2.86 L Assessment/Plan All Active Problems 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) Acute kidney injury superimposed on chronic kidney disease (Acute) Diarrhea (Acute) Hematochezia (Acute) Hypokalemia (Acute) Hypernatremia (Acute) Hypokalemia (Acute) Confusion (Acute) Atrial fibrillation with RVR (Resolved) Cellulitis of leg (Resolved) Delirium due to another medical condition (Resolved) HCAP (healthcare-associated pneumonia) (Resolved) Hyperkalemia (Resolved) Hypoxemia (Resolved) Metabolic encephalopathy (Resolved) Nonstaphylococcal scalded skin syndrome (Resolved) Pneumonia (Resolved) Rhabdomyolysis (Resolved) Sepsis (Resolved) Sepsis affecting skin (Resolved) Severe sepsis (Resolved) Staphylococcal scalded skin syndrome (Resolved) Wound infection (Resolved) 1-kidney injury on chronic kidney disease. Baseline creatinine seems in 1.4 mg a deciliter Patient had acute kidney injury 2 months ago from prerenal. Creatinine improved to 1.4 with hydration. UA for this is benign. No hematuria no proteinuria. I am suspecting acute kidney injury at this time also due to prerenal from diarrhea and Lasix. Creatinine is slightly better today at 2.17. Diarrhea is better. I will continue the same dose of Lasix. I encourage p.o. intake. Avoid PATITO inhibitor/ARB. 2-hypernatremia. Most probably from free water loss and diarrhea and Lasix. Sodium is 148 we will continue to follow. 3-hypokalemia: From Lasix and diarrhea. We will replace with potassium chloride 40 mEq p.o. 1 time today. I will check magnesium and potassium tomorrow. 4-anemia: Continue Procrit every 2 weeks. Check iron profile 5-hypertension: Blood pressure is well controlled. Continue the same dose of labetalol 6-BPH: On Proscar. No urinary obstructive symptoms as per the patient. 7-diarrhea: Rule out C. difficile colitis. Will defer to the primary team. Thank you for the consult. Renal team will continue to follow 10/09/18 0739 <Electronically signed by Zakia Meyer MD> Date Zakia Meyer MD Cosigner Signature (if applicable): Date CC: Zakia Meyer MD; Vijay Mason MD Signed CBC-COMPLETE BLOOD CNT Collected: 10/09/2018 Status: F Source: MARK NO DIFF 5:[address] [facility] REPOSITORY TYPE CODE TESTS RESULT OUT OF RANGE REFERENCE UNITS LAB L100.1000 4.4-11.0 K/mm3 Normal WBC 10.7 LAB L100.1200 4.6-6.2 M/mm3 Low RBC 2.86 LAB L100.1300 13.0-16.5 g/dl Low HGB 8.1 LAB L100.1400 40-54 % Low HCT 27.4 LAB L100.1500 80-94 fL High MCV 95.8 LAB L100.1600 27.0-32.0 pg Normal MCH 28.3 LAB L100.1700 32-36 g/gl Low MCHC 29.6 LAB L100.1810 11.6-14.6 % Normal RDW CV 14.4 LAB L100.1820 35.1-43.9 fl High RDW SD 47.6 LAB L100.1900 150-450 K/mm3 Low PLT 123 LAB L100.2000 6.2-12.0 fl High MPV 12.1 Performed By: #### L100.0500 #### [facility] [address] [place], [address] COMPREHENSIVE METABOLIC Collected: 10/09/2018 Status: F Source: [facility] 5:[address] [facility] REPOSITORY TYPE CODE TESTS RESULT OUT OF RANGE REFERENCE UNITS LAB L501.0100 74-106 mg/dL Normal GLU 99 Result Comment: Please note revised GLUCOSE reference range effective 2017. LAB L501.1000 7-18 mg/dL High BUN 74 LAB L501.1100 0.70-1.30 mg/dL High CREAT,SERUM 2.17 Result Comment: The validity of the calculated GFR AND GFRAA in patients over 70 years has not been determined. Clinical correlation is essential. LAB L501.1110 >60 mL/min Low EST GFR 31 Result Comment: Non- GFR Calc LAB L501.1115 >60 mL/min Low EST GFR - AA 38 Result Comment: GFR Calc LAB L501.1255 ml/min Normal Estimated CRCL 25.83 LAB L501.1300 10-20 RATIO High BUN/CRE 34.1 LAB L501.1500 6.4-8. g/dL Low 2 T PROT 4.3 LAB L501.1800 3.2-5. g/dL Low 0 ALB 1.4 LAB L501.1950 2.2-4. g/dL Normal 2 GLOB 2.9 LAB L501.2000 0.9-2. RATIO Low 4 A/G 0.5 LAB L501.2200 8.5-10 mg/dL Low .1 CA 8.3 LAB L501.4100 15-37 U/L Normal AST 24 LAB L501.4305 45-117 U/L Normal ALK P 114 LAB L501.4405 16-61 U/L Normal ALT 22 LAB L501.4600 0.20-1 mg/dL Normal .00 T BILI 0.40 LAB L501.5300 136-14 mmol/L High 5 NA 148 LAB L501.5600 3.5-5. mmol/L Low 1 K 3.1 LAB L501.5900 98-107 mmol/L High CL 111 LAB L501.6100 21.0-3 mmol/L Normal 2.0 CO2 31.0 LAB L501.6200 5-15 Normal GAP 6 Performed By: #### L500.4050, L501.2300, L501.5200 #### [facility] [address] [place], [place], [id number] PHOSPHORUS Collected: 10/09/2018 Status: F Source: CINEBAR 5:[address] [facility] REPOSITORY TYPE CODE TESTS RESULT OUT OF RANGE REFERENCE UNITS LAB L501.2300 2.5-4.9 mg/dL Normal PHOS 4.1 Performed By: #### L500.4050, L501.2300, L501.5200 #### [facility] [address] [place], [address] MAGNESIUM Collected: 10/09/2018 Status: F Source: CINEBAR 5:[address] [facility] REPOSITORY TYPE CODE TESTS RESULT OUT OF RANGE REFERENCE UNITS LAB L501.5200 1.6-2.6 mg/dL Normal MG 2.0 Performed By: #### L500.4050, L501.2300, L501.5200 #### [facility] [address] [place], [place], [id number] STOOL Observed: 10/09/2018 Status: F Source: MARK LACTOFERRIN/WBC 3:[address] [facility] REPOSITORY Stool Lacto/WBC Normal Reference Range = Negative Fecal WBC Lactoferrin Positive: Fecal WBC Lactoferrin present Performed By: #### M100.0605 #### [facility] [address] [place], [address] Observed: 10/09/2018 Status: C Source: MARK CDIFF (MOLECULAR) 3:[address] [facility] REPOSITORY Is the patient receiving laxatives? N New/unexplained onset of 3 or more stools in past 24 hrs? Y Cdiff-Molecular RESULTS CALLED TO Sheryl SAVAGE 10/09/18 1409 Alessandra [place]. REPORT READ BACK BY SOPHIA. Copy of report sent to Infection Control Printer MS#[id number] 10/09/18 7957 NITISHRayANNARay. Normal Reference Range = Negative C. Diff DNA Positive-Toxigenic C. Difficile DNA Detected NAAT METHOD Testing was performed using nucleic acid amplification ORGANISM 1: Toxigenic C. difficile DNA Performed By: #### M100.6796 #### [facility] [address] [place], [address] Observed: 10/09/2018 Status: F Source: MARK ENTERIC PATHOGEN 3:[address] [facility] PANEL STOOL REPOSITORY EP PANEL STOOL Not detected for Campylobacter group, Salmonella species, Shigella species, Vibrio Group, Yersinia enterocolitica, EHEC (Shiga Toxin 1, Shiga Toxin 2), Norovirus Gl/Gll, and Rotavirus A. Other common stool pathogens are not detected on this panel include: Aeromonas/Plesiomonas or parasites. Order testing for these organisms separately if suspected. This is an amplified DNA test which makes it both specific and sensitive. Normal Reference Range = Not Detected CAMPYLOBACTER Not Detected Salmonella Not Detected Shigella sp. Not Detected Shiga Toxin Not Detected Yersinia Not Detected VIBRIO Not Detected Norovirus Not Detected Rotavirus Not Detected Performed By: #### M100.637 #### [facility] [address] [place], [address] EMERGENCY DEPARTMENT Observed: 10/09/2018 Status: F Source: MARK SUMMARY 12:[address] [facility] REPOSITORY [facility] Medical Records Department [address] [place] [address] Emergency Department Summary 10/08/18 1857 MR#: [id number] Acct: [id number] Name: DOUG CAST Rep #: [id number] : 1935 83 From: Doug Currie MD PCP: Vijay Mason MD Status: ADM IN - ER Visit Summary Date of Service: 10/08/18 Chief Complaint: Abnormal labs History of Present Illness: The patient is a 83 M presenting for evaluation secondary to abnormal lab. Patient has recently been in and out of the hospital. He was initially admitted for A. fib with RVR and was started on anticoagulation. Patient then required readmission secondary to development of pneumonia. He was discharged home, and then bounced to a senior care facility secondary to functional decline. Patient apparently has had worsening weakness and lethargy. Repeat laboratory studies showed elevated white blood cell counts, decreased hemoglobin count, and a decreased potassium today. There was concern about this so the patient was brought to the emergency department for further evaluation. Patient states that his breathing feels somewhat improved, but he now has diarrhea and fecal incontinence. He states that his stools are not melanotic. Review of systems otherwise negative. Physical Examination: Vital signs are stable and within normal limits. Elderly somewhat ill-appearing male sitting in the bed not acute distress. Head normocephalic. Dry mucous membranes. Neck was supple. Heart was regular rate and rhythm. Lungs sounds showed some diminished sounds at the right base, but no respiratory distress rhonchi rales or wheezes. Abdomen was soft and nontender. Rectal exam showed brown stool but was trace guaiac positive. Patient has a stage I decubitus ulcer just above his anus. +2 bilaterally symmetric pitting edema of the lower extremities. Test Results: Patient's lab work today shows a leukocytosis of 17, hemoglobin of 8.5, potassium 3.1, and creatinine of 2 which is baseline Emergency Department Course and Treatment: Patient presented secondary to the above complaints. Patient's workup ends up showing guaiac positive stool in the setting of anticoagulation. I do believe that he requires admission for observation at this point given his general ill appearance. Patient's chest x-ray does not seem to be significantly changed, and as he has no new respiratory symptoms I do not believe that that is the cause of his leukocytosis, likely it is from his diarrhea. Patient will be admitted under the hospitalist. Disposition: Admission Impression: 1. GI bleed 2. Eliquis coagulopathy 3. Leukocytosis 4. Right-sided infiltrate and effusion unchanged from prior radiograph This note was generated with [employer]gl[employer] dictation software. It may contain incorrect words, spelling, and punctuation that were not noted in review of the chart prior to signing ED Disposition - Plan for ED Patient: Chief Complaint: Abn Labs Referrals: Vijay Mason MD [Primary Care Provider] - What to do if you have Problems For any increased pain, shortness of breath, bleeding, nausea or vomiting, chest pain, or any unexpected problems, contact your Primary Care Provider. Call [facility] ([phone]) or report to the closest Emergency Room. Call 911 if necessary. 10/09/18 0035 <Electronically signed by Doug Currie MD> Date Doug Currie MD Cosigner Signature (If Indicated): Date CC: Vijay Mason MD HISTORY AND PHYSICAL Observed: 10/08/2018 Status: F Source: CINEBAR EXAM 9:[address] [facility] REPOSITORY 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 Status: Acute (6) Carotid artery disease Status: Chronic (7) Cellulitis of leg Status: Resolved (8) Confusion Status: Acute (9) Delirium due to another medical condition Status: Resolved (10) HCAP (healthcare-associated pneumonia) Status: Resolved (11) Hyperkalemia Status: Resolved (12) Hypoxemia Status: Resolved (13) Metabolic encephalopathy Status: Resolved (14) Pneumonia Status: Resolved (15) Rhabdomyolysis Status: Resolved (16) Sepsis Status: Resolved (17) Sepsis affecting skin Status: Resolved (18) Severe sepsis Status: Resolved (19) Staphylococcal scalded skin syndrome Status: Resolved (20) Wound infection Status: Resolved (21) Anemia Status: Chronic (22) Arthritis Status: Chronic (23) BPH (benign prostatic hyperplasia) Status: Chronic (24) CKD (chronic kidney disease), stage III Status: Chronic (25) Cellulitis Status: Chronic Qualifiers: (26) Chronic renal insufficiency, stage III (moderate) Status: Chronic (27) Gout Status: Chronic (28) Hyperlipidemia Status: Chronic (29) Hypertension Status: Chronic (30) Leg ulcer Status: Chronic (31) Lymphedema Status: Chronic (32) Lymphedema of lower extremity Status: Chronic (33) Nephrolithiasis Status: Chronic (34) Non-pressure chronic ulcer of other part of right foot limited to breakdown of skin Status: Chronic (35) Nonstaphylococcal scalded skin syndrome Status: Resolved (36) Pleural effusion, right Status: Chronic (37) Stroke Status: Chronic (38) MRSA (methicillin resistant Staphylococcus aureus) infection Status: Inactive (39) Staph aureus infection Status: Inactive (40) Hypokalemia Status: Acute (41) Anemia of chronic kidney failure Status: Chronic History of Present Illness Date of Admission: 10/08/18 Chief Complaint: diarrhea, decreased HGB The patient is a 83 year old M with a past medical history of CVA, chronic renal failure stage III, hypertension, atrial fibrillation, chronic anticoagulation with Eliquis, hyperlipidemia, chronic mild thrombocytopenia, BPH, chronic bilateral lower extremity lymphedema, chronic venous stasis ulcers of the lower extremities, anemia of chronic disease/iron deficiency, recent streptococcal pneumonia with severe sepsis and acute on chronic renal failure who presented to the emergency department at [facility] with complaints of diarrhea, increased weakness, elevated white blood cell count and decreasing hemoglobin. He has been on amoxicillin and prior to that was on initially vancomycin and Zosyn for HCAP and then Rocephin. The patient himself cannot tell me if he has had diarrhea or not. He denies abdominal pain, nausea, vomiting. He denies any history of ulcers or diverticular disease. He denies shortness of breath and he is not coughing. Initial vital signs presentation to the emergency room are temperature 97.5, pulse rate 78, blood pressure 123/57, respiratory rate 16 and he was 94% saturated on room air and 99% saturated on a 2 L nasal cannula. White blood cell count at the prison was 17.5 with 91% neutrophils. Hemoglobin was 8.5 and platelet count was 125,000. The BMP showed an elevated sodium of 148 with a potassium of 3.1, BUN of 76 and a creatinine of 2.35. Creatinine at discharge from the hospital was 2.71. Chest x-ray in the emergency room showed right mid and lower lung consolidation with pleural effusion which is essentially unchanged from the chest x-ray at discharge. Rectal exam revealed brown stool which was Hemoccult positive. The patient does have internal hemorrhoids and they are painful to palpate. Past Medical History Past Medical History (Chronic Problems): Chronic Problems Leg ulcer (Chronic) Lymphedema (Chronic) Pleural effusion, right (Chronic) Hypertension (Chronic) Stroke (Chronic) Hyperlipidemia (Chronic) Carotid artery disease (Chronic) Anemia of chronic kidney failure (Chronic) Cellulitis (Chronic) 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) Lymphedema of lower extremity (Chronic) Nephrolithiasis (Chronic) Gout (Chronic) CKD (chronic kidney disease), stage III (Chronic) BPH (benign prostatic hyperplasia) (Chronic) Anemia (Chronic) Chronic renal insufficiency, stage III (moderate) (Chronic) Arthritis (Chronic) Allergies No Known Allergies Allergy (Verified 10/08/18 17:01) Home Medications: Ambulatory Orders Medication Instructions Recorded Labetalol [Trandate (Beta Mavis)] 200 mg PO BID 10/10/16 Aspirin E.C. [Ecotrin] 81 mg PO DAILY 08/14/18 Finasteride [Proscar] 5 mg PO DAILY 08/19/18 Surgical History: - - Bilateral carotid endarectomy Psychiatric History: No pertinent psych hx Lives: With Family, - - currently living [facility] [place] Smoking Status: Never smoker Tobacco Use: Non-smoker Alcohol: Occasional Drugs: None - *Family History Paternal Family History: Family History (Last Reviewed 10/08/18 @ 21:06 by Chuy Abrams DO) Mother Hyperthyroidism Father Diabetes Aortic aneurysm rupture History Items: Diabetes Maternal Family History: Family History (Last Reviewed 10/08/18 @ 21:06 by Chuy Abrams DO) Mother Hyperthyroidism Father Diabetes Aortic aneurysm rupture History Items: Heart Disease Review of Systems Constitutional: Reports: Weakness. Denies: Anorexia, Chills, Fever Eyes: Denies: Blurred vision HEENT: Denies: Difficulty Swallowing, Head Aches, Sinus Congestion, Sinus Drainage, Sore Throat Cardiovascular: Denies: Chest Pain, Light Headedness, Palpitations Respiratory: Denies: Cough, Shortness of Breath Gastrointestinal: Reports: Diarrhea. Denies: Abdominal Pain, Nausea, Vomiting Genitourinary: Denies: Dysuria Musculoskeletal: Denies: Arm Pain, Muscle pain, Neck Pain Skin: Denies: Jaundice, Rash, Wounds Neurological: Denies: Slurred speech, Focal weakness Psychiatric: Denies: Anxiety, Depression, Homicidal Ideations, Suicidal Ideations Hematologic/ Lymphatic: Reports: Easy Bruising, Easy Bleeding VTE Information - Inpt Only VTE Present on Admission: No VTE Mechan Device Prophylaxis: SCD's, Knee High JEAN PAUL Hose Reason prophylaxis not ordered:: Treatment Not Indicated - he is on Eliquis for AF Patient Problems: Active and Suspected Problems Diarrhea (Acute) Hematochezia (Acute) Hypokalemia (Acute) - Physical Exam General: Alert, Oriented x3, Cooperative, No apparent distress HEENT: Atraumatic, PERRLA, EOMI, Normocephalic Oral: Moist Mucosa Neck: Supple, No JVD, Negative Carotid Bruits Lungs: No rhonchi, No wheeze, No rales, Diminished - on the right side 1/[address] up the posterior lung field, - - Not tachypneic, no conversational dyspnea, no accessory muscle use Cardiovascular: Normal S1, Normal S2, No murmurs, No Ectopic Activity, No rub noted, No Gallop, - - Patient is in atrial fibrillation with controlled ventricular response Abdomen: Bowel Sounds Present, Soft, Non Tender, - - Rectal exam showed good sphincter tone, positive internal hemorrhoids that were painful to palpate, brown stool in the rectum...... Hemoccult positive Extremities: No clubbing, No cyanosis, No Calf Tenderness, Edema - Pitting of both lower extremities Skin: No rashes, No breakdown Musculoskeletal: No Tenderness to Palpation of Joints or Extremities Neurological: Cranial nerves II-XII grossly intact, Neuro grossly intact Psych/Mental Status: Appropriate, Flat Affect Vital Signs Temp Pulse Resp BP Pulse Ox 98.5 F 69 18 138/60 H 100 10/08/18 19:23 10/08/18 19:23 10/08/18 19:23 10/08/18 19:23 10/08/18 19:23 Oxygen Flow Rate (L/min) 2 Oxygen Delivery Method Nasal Cannula Weight: 170 lb Body Mass Index (BMI) 25.8 Finger Stick Blood Glucose 122 Microbiology Past 72 Hours 10/08/18 17:40 Stool Occult Blood (ALDEN) - Final Stool Occult Blood Positive Laboratory Tests Past 24 Hrs Urine Color Yellow Urine Clarity Sl. 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) Acute kidney injury superimposed on chronic kidney disease (Acute) Diarrhea (Acute) Hematochezia (Acute) Hypokalemia (Acute) Confusion (Acute) Atrial fibrillation with RVR (Resolved) Cellulitis of leg (Resolved) Delirium due to another medical condition (Resolved) HCAP (healthcare-associated pneumonia) (Resolved) Hyperkalemia (Resolved) Hypoxemia (Resolved) Metabolic encephalopathy (Resolved) Nonstaphylococcal scalded skin syndrome (Resolved) Pneumonia (Resolved) Rhabdomyolysis (Resolved) Sepsis (Resolved) Sepsis affecting skin (Resolved) Severe sepsis (Resolved) Staphylococcal scalded skin syndrome (Resolved) Wound infection (Resolved) Impressions 1. Diarrhea in a patient recently on multiple antibiotics. Stool is Hemoccult positive but patient has no abdominal pain, nausea or vomiting. Will workup for possible Clostridium difficile enterocolitis. He may just have bleeding hemorrhoids as his stool is brown and he has painful internal hemorrhoids. 2. Hypokalemia-will supplement 3. Hemoccult positive stool 4. Anemia of chronic disease 5. Acute renal failure on chronic renal failure stage III- we will consult nephrology at this time to evaluate this patient since he has not been evaluated in the recent past 6. History of CVA 7. PAF-rate controlled 8. Nephrolithiasis 9. Gout - need to consider that the Allopurinol may be causing some of the chronic anemia also due to BM suppression, herbert since the PLT's are low also 10. Hyperlipidemia 12. Hypertension 13. Carotid artery disease-status post endarterectomy 14. Chronic lymphedema of both lower extremities Admit to [facility] floor on telemetry Recheck lab in the a.m. Anusol HC suppositories twice daily Fecal leukocytes Enteric pathogen panel Enteric contact isolation Supplement potassium PT and OT Likely needs to go back to the prison Code Visit Inpatient E AND M: [id number] Init Hosp L2 10/08/182114 <Electronically signed by Chuy Abrams DO> Date Chuy Abrams DO Cosigner Signature: Date (if applicable) CC: Gail Abrams; Vijay Mason MD Signed URINALYSIS, COMPLETE Collected: 10/08/2018 Status: F Source: MARK 6:[address] [facility] REPOSITORY Order Comment: Order Date: 10/08/18 How was Urine Obtained? CLEAN CATCH TYPE CODE TESTS RESULT OUT OF RANGE REFERENCE UNITS LAB L400.3000 Yellow COLOR Normal Yellow LAB L400.3050 Clear Normal CLARITY Sl. Cloudy LAB L400.3200 Normal mg/dl Normal GLUCOSE, UR Normal LAB L400.3300 Negative mg/dL Normal BILIRUBIN URINE Negative LAB L400.3400 Negative mg/dl Normal KETONE UR Negative LAB L400.3465 1.002-1.030 Normal SP.GR. DIPSTX 1.015 LAB L400.3550 5.0 - 8.0 pH UR Normal 5.0 LAB L400.3600 Negative mg/dl PROT Normal DIPSTX Negative LAB L400.3700 Normal mg/dl Normal UROBILI Normal LAB L400.3750 Negative Normal NITRITE UR Negative LAB L400.3780 Negative /ul Normal OCCULT BLOOD-UR Negative LAB L400.3800 Negative /ul High LEUK 25 ESTERASE LAB L400.4050 0-5 /hpf WBC Normal 0-5 SEEN LAB L400.4100 0-5 /hpf 0 Normal RBC-UA SEEN LAB L400.4150 0-5 /hpf SQUAM 0 Normal EPI SEEN LAB L400.4300 None Seen /hpf 0 Normal BACTERIA SEEN LAB L400.4350 <or=2+ /hpf 0 Normal MUCUS, URINE SEEN LAB L400.4450 0-5 /lpf FINE Normal GRAN CAST 0-5 SEEN Performed By: #### L400.0001 #### [facility] [address] [place], [address] Observed: 10/08/2018 Status: F Source: CINEBAR STOOL OCCULT BLOOD 5:[address] [facility] IFOB REPOSITORY Order Date: 10/08/18 STOB iFOB Occult Blood Positive ORGANISM 1: OCCULT BLOOD POSITIVE Performed By: #### M100.7900 #### [facility] [address] [place], [address] CHEST 1 VIEW Observed: 10/08/2018 Status: F Source: MARK (PORTABLE) 5:[address] [facility] REPOSITORY [facility] Imaging Services [address] [place] [id number] Chest 1 View (Portable) MR#: [id number] Acct: [id number] Name: SEGUNDOUG Brittani Rep #: [id number] : 1935 M 83 From: Baltazar Moctezuma MD PCP: Vijay Mason MD Status: PRE ER Study: Chest 1 View (Portable) Date of Exam: 10/08/18 Exam# [id number] Ordering Dr: Doug Currie MD STUDY: X-RAY CHEST REASON FOR EXAM: Male, 83 years old. Abnormal labs. TECHNIQUE: Single AP portable view of the chest. COMPARISON: October 02, 2018 FINDINGS: There is right mid and lower lung groundglass and airspace consolidation. There is stable moderate right pleural effusion. There is left lower lung atelectasis. Normal size heart. Normal mediastinum and jordan. Normal visualized pulmonary arteries. There is atherosclerotic calcification of the aortic arch with tortuosity. There are diffuse degenerative changes of the visualized thoracic spine. Normal visualized ribs, clavicles, and shoulders. There is no demonstrated abnormality of the visualized soft tissue structures of the upper abdomen. RAD/Chest 1 View (Portable) IMPRESSION: Right mid and lower lung consolidation and pleural effusion. Electronically Signed: Baltazar Moctezuma MD at 17:50 EST , Service support , CC: Doug Currie; Vijay Mason MD Safety Leader: Signed CBC-COMPLETE BLOOD CNT Collected: 10/08/2018 Status: F Source: MARK NO DIFF 6:[address] [facility] REPOSITORY Order Comment: 119 TYPE CODE TESTS RESULT OUT OF RANGE REFERENCE UNITS LAB L100.1000 4.4-11.0 K/mm3 High WBC 17.5 LAB L100.1200 4.6-6.2 M/mm3 Low RBC 3.02 LAB L100.1300 13.0-16.5 g/dl Low HGB 8.5 LAB L100.1400 40-54 % Low HCT 28.7 LAB L100.1500 80-94 fL High MCV 95.0 LAB L100.1600 27.0-32.0 pg Normal MCH 28.1 LAB L100.1700 32-36 g/gl Low MCHC 29.6 LAB L100.1810 11.6-14.6 % Normal RDW CV 14.3 LAB L100.1820 35.1-43.9 fl High RDW SD 47.4 LAB L100.1900 150-450 K/mm3 Low PLT 125 LAB L100.2000 6.2-12.0 fl Normal MPV 11.8 Performed By: #### L100.0500 #### [facility] [address], [address] BASIC METABOLIC Collected: 10/08/2018 Status: F Source: MARK PROFILE (BMP) 6:[address] [facility] REPOSITORY Order Comment: 119 TYPE CODE TESTS RESULT OUT OF RANGE REFERENCE UNITS LAB L501.0100 74-106 mg/dL Normal GLU 95 Result Comment: Please note revised GLUCOSE reference range effective 2017. LAB L501.1000 7-18 mg/dL High BUN 76 LAB L501.1100 0.70-1.30 mg/dL High CREAT,SERUM 2.35 Result Comment: The validity of the calculated GFR AND GFRAA in patients over 70 years has not been determined. Clinical correlation is essential. LAB L501.1110 >60 mL/min Low EST GFR 28 Result Comment: Non- GFR Calc LAB L501.1115 >60 mL/min Low EST GFR - AA 34 Result Comment: GFR Calc LAB L501.1300 10-20 RATIO High BUN/CRE 32.3 LAB L501.2200 8.5-10.1 mg/dL Low CA 8.2 LAB L501.5300 136-145 mmol/L High NA 148 LAB L501.5600 3.5-5.1 mmol/L Low K 3.1 LAB L501.5900 98-107 mmol/L High CL 108 LAB L501.6100 21.0-32.0 mmol/L Normal CO2 30.0 LAB L501.6200 5-15 Normal GAP 10 Performed By: #### L500.2500 #### [facility] [address] [place], [address] CBC-COMPLETE BLOOD CNT Collected: 10/07/2018 Status: F Source: MARK NO DIFF 7:[address] [facility] REPOSITORY Order Comment: 119 TYPE CODE TESTS RESULT OUT OF RANGE REFERENCE UNITS LAB L100.1000 4.4-11.0 K/mm3 Normal WBC 9.6 LAB L100.1200 4.6-6.2 M/mm3 Low RBC 3.18 LAB L100.1300 13.0-16.5 g/dl Low HGB 9.0 LAB L100.1400 40-54 % Low HCT 30.1 LAB L100.1500 80-94 fL High MCV 94.7 LAB L100.1600 27.0-32.0 pg Normal MCH 28.3 LAB L100.1700 32-36 g/gl Low MCHC 29.9 LAB L100.1810 11.6-14.6 % Normal RDW CV 14.4 LAB L100.1820 35.1-43.9 fl High RDW SD 47.6 LAB L100.1900 150-450 K/mm3 Low PLT 118 LAB L100.2000 6.2-12.0 fl Normal MPV 11.9 Performed By: #### L100.0500 #### [facility] [address] [place], [place], [address] BASIC METABOLIC Collected: 10/07/2018 Status: F Source: MARK PROFILE (BMP) 7:[address] [facility] REPOSITORY Order Comment: 119 TYPE CODE TESTS RESULT OUT OF RANGE REFERENCE UNITS LAB L501.0100 74-106 mg/dL High GLU 123 Result Comment: Fasting Glucose result from 100 to 125 mg/dL suggests IMPAIRED HOMEOSTASIS per A.D.A. criteria. Please note revised GLUCOSE reference range effective 2017. LAB L501.1000 7-18 mg/dL High BUN 78 LAB L501.1100 0.70-1.30 mg/dL High CREAT,SERUM 2.30 Result Comment: The validity of the calculated GFR AND GFRAA in patients over 70 years has not been determined. Clinical correlation is essential. LAB L501.1110 >60 mL/min Low EST GFR 29 Result Comment: Non- GFR Calc LAB L501.1115 >60 mL/min Low EST GFR - AA 35 Result Comment: GFR Calc LAB L501.1300 10-20 RATIO High BUN/CRE 33.9 LAB L501.2200 8.5-10.1 mg/dL CA Normal 8.6 LAB L501.5300 136-145 mmol/L High NA 146 LAB L501.5600 3.5-5.1 mmol/L Low K 3.2 LAB L501.5900 98-107 mmol/L CL Normal 106 LAB L501.6100 21.0-32.0 mmol/L Normal CO2 30.0 LAB L501.6200 5-15 Normal GAP 10 Performed By: #### L500.2500 #### [facility] [address] [place], [address] CBC-COMPLETE BLOOD CNT Collected: 10/05/2018 Status: F Source: MARK NO DIFF 7:[address] [facility] REPOSITORY TYPE CODE TESTS RESULT OUT OF RANGE REFERENCE UNITS LAB L100.1000 4.4-11.0 K/mm3 Normal WBC 8.6 LAB L100.1200 4.6-6.2 M/mm3 Low RBC 3.54 LAB L100.1300 13.0-16.5 g/dl Low HGB 10.1 LAB L100.1400 40-54 % Low HCT 33.1 LAB L100.1500 80-94 fL Normal MCV 93.5 LAB L100.1600 27.0-32.0 pg Normal MCH 28.5 LAB L100.1700 32-36 g/gl Low MCHC 30.5 LAB L100.1810 11.6-14.6 % High RDW CV 14.7 LAB L100.1820 35.1-43.9 fl High RDW SD 48.1 LAB L100.1900 150-450 K/mm3 Low PLT 131 LAB L100.2000 6.2-12.0 fl High MPV 12.4 Performed By: #### L100.0500 #### [facility] [address] [place], [address] BASIC METABOLIC Collected: 10/05/2018 Status: F Source: CINEBAR PROFILE (BMP) 7:[address] [facility] REPOSITORY TYPE CODE TESTS RESULT OUT OF RANGE REFERENCE UNITS LAB L501.0100 74-106 mg/dL Normal GLU 101 Result Comment: Fasting Glucose result from 100 to 125 mg/dL suggests IMPAIRED HOMEOSTASIS per A.D.A. criteria. Please note revised GLUCOSE reference range effective 2017. LAB L501.1000 7-18 mg/dL High BUN 90 LAB L501.1100 0.70-1.30 mg/dL High CREAT,SERUM 2.69 Result Comment: The validity of the calculated GFR AND GFRAA in patients over 70 years has not been determined. Clinical correlation is essential. LAB L501.1110 >60 mL/min Low EST GFR 24 Result Comment: Non- GFR Calc LAB L501.1115 >60 mL/min Low EST GFR - AA 29 Result Comment: GFR Calc LAB L501.1300 10-20 RATIO High BUN/CRE 33.5 LAB L501.2200 8.5-10.1 mg/dL CA Normal 8.9 LAB L501.5300 136-145 mmol/L NA Normal 143 LAB L501.5600 3.5-5.1 mmol/L K Normal 3.7 LAB L501.5900 98-107 mmol/L CL Normal 105 LAB L501.6100 21.0-32.0 mmol/L Normal CO2 29.0 LAB L501.6200 5-15 Normal GAP 9 Performed By: #### L500.2500 #### [facility] [address] [place], [address] 12 LEAD ELECTROCARDIOGRAM Observed: 10/03/2018 Status: F Source: CINEBAR 2:[address] [facility] REPOSITORY [facility] Cardiovascular Services [address] [place] [address] 12 Lead EKG 09/29/18 0239 MR#: [id number] Acct: [id number] Name: DOUG CAST Rep #: [id number] : 1935 83 From: Rah Barab MD Attending Dr: Maureen Siddiqui Status: DIS IN Ordering Dr: Chase Zavala MD Date: 09/29/18 Location: [facility] Sex: M C Admitted: 09/29/18 Test Reason : RHYTHM CHANGE Blood Pressure : / mmHG Vent. Rate : 074 BPM Atrial Rate : 086 BPM P-R Int : 232 ms QRS Dur : 142 ms QT Int : 496 ms P-R-T Axes : 047 -50 -14 degrees QTc Int : 550 ms Sinus rhythm with marked sinus arrhythmia with 1st degree A-V block Right bundle branch block Left anterior fascicular block Bifascicular block Abnormal ECG Confirmed by BRET MACK, RAH ([id number]), state editor SARY MA ([id number]) on 10/03/2018 2:16:33 PM Referred By: DR STONE Confirmed By:RAH BARBA MD 10/03/18 1416 Date Rah Barba MD CC: Maureen Siddiqui; Chase Zavala MD; Vijay Mason MD Signed 12 LEAD ELECTROCARDIOGRAM Observed: 10/03/2018 Status: F Source: MARK 2:15 PM [facility] Cardiovascular Services [address] [place] [address] 12 Lead EKG 09/30/18 0451 MR#: [id number] Acct: [id number] Name: DOUG CAST Rep #: [id number] : 1935 83 From: Rah Barba MD Attending Dr: Maureen Siddiqui Status: DIS IN Ordering Dr: Rah Barba MD Date: 09/30/18 Location: [facility] Sex: M C Admitted: 09/29/18 Test Reason : AM EKG Blood Pressure : / mmHG Vent. Rate : 061 BPM Atrial Rate : 078 BPM P-R Int : 228 ms QRS Dur : 144 ms QT Int : 486 ms P-R-T Axes : 057 -61 005 degrees QTc Int : 489 ms Sinus rhythm with 1st degree A-V block with occasional Premature ventricular complexes and Premature atrial complexes Right bundle branch block Left anterior fascicular block Bifascicular block Abnormal ECG Confirmed by BRET MACK, RAH ([id number]), state editor SARY MA ([id number]) on 10/03/2018 2:14:38 PM Referred By: JOSE Confirmed By:RAH BARBA MD 10/03/18 1414 Date Rah Barba MD CC: Maureen Siddiqui; Rah Barba MD; Vijay Mason MD Signed DISCHARGE SUMMARY Observed: 10/02/2018 Status: F Source: MARK 3:[address] [facility]POSITORY [facility] Medical Records Department [address] [place] [address] Discharge Summary 10/02/18 1423 MR#: [id number] Acct: [id number] Name: DOUG CAST Rep #: [id number] : 1935 83 From: Lion BARONE PCP: Vijay Mason MD Status: DIS IN Y [id number] ADDENDUM by Maureen Siddiqui on 10/02/18 at 1500 Code Visit ATTENDING PHYSICIAN DISCHARGE NOTE: I have seen and examined the patient independently and agree with the assessment, plan, history per Lion Green as noted. Discharge Diagnoses: (1) Acute Encephalopathy secondary to Acute Metabolic Encephalopathy and Acute Severe Sepsis secondary to Acute Hypoxic Respiratory Failure secondary to Acute Streptococcal Pneumonia w/ Associated Streptococcal bacteremia and Possible Aspiration Component (2) Paroxsymal atrial fibrillation w/ RVR (3) Suspected Acute on Chronic Diastolic CHF (4) Acute kidney injury on CKD stage III (5) Mild Oropharyngeal Dysphagia (6) AOCD/Fe deficiency anemia (7) Carotid Artery Disease (8) BL LE Chronic Lymphedema w/ Stasis Wounds (9) Hypertension (10) Hyperlipidemia Discharge Summary: The patient is an 83 y/o M w/ PMHx: Hx CVA, CKD stage III, HTN, HLD, BPH, Chronic BL LE Lymphedema and Chronic Venous Stasis Ulcers/Wounds, AOCD/Fe deficiency anemia who presented to the [facility] ED on 09/29/18 w/ history of shortness of breath, increased weakness, lethargy as well as nonproductive cough. CT head without acute findings, CXR in the ED w/ cardiomegaly with central vascular congestive changes and areas of consolidation in the right lung base suspicious for pneumonia or pulmonary edema as well as small right-sided effusion. Admission CBC w/ WBC 12.3, LA elevated 2.1 upon admission with repeat 1.1. Admitted to PCU, maintained on oxygen with wean as tolerated to home oxygen supplementation, continued ATC duonebs, PRN albuterol, maintained initially on IV vanc and zosyn for possible HCAP; however, urine antigen + strep and also Bld Cx x 2 w/ streptococcal pneumonia thus abx therapy 09/30/18 de-escalated to IV rocephin w/ transition upon discharge given repeat negative Bld Cx 09/30/18 to oral amoxicillin 500 mg po BID x 7 additional days per ID recommendation. EKG in ED w/ atrial fibrillation w/ RVR, maintained on telemetry, converted, continued on home labetolol regimen, Cardiology consulted, initially maintained on heparin drip with transition to oral renally dosed eliquis. Additionally, suspected Acute on Chronic Diastolic CHF, initiated on IV low dose lasix given JOSEF on CKD, maintained on statin, BB, heparin drip initially as noted with transition to oral renally dosed eliquis, no ACEI/ARB secondary to renal disease, intake restriction. TSH and mag normal levels. ECHO obtained w/ normal LV systolic function, EF 55%, mild concentric LVH, mildly dilated RV, mildly enlarged LA, mildly enlarged RA, mild MVI, mild to moderate TVI, mild focal AV thickening, trivial pericardial effusion, no echocardiographic indication of a cardiac tamponade, echolucency consistent with pleural effusion, RVSP 64 mmHg consistent with pulmonary hypertension, evidence of diastolic dysfunction. Upon discharge patient transitioned to oral daily lasix regimen. Admission BUN/Cr 50/2.35, prior baseline creatinine noted to be 1.5 with recent elevations up to 2. Patient hydrated given sepsis despite CXR presentations w/ possible overload, held nephrotoxic medications, repeat 09/30/18 BUN/Cr 71/2.55, increasing; however, given concern for CHF exacerbation IV lasix utilized. Given these renal changes and progressive increase since 07/2018 1.4 range, requested nephrology follow-up upon discharge. During admission, concern for aspiration, Barium swallow study obtained w/ results noted to be normal with no evidence of increased risk for aspiration with speech therapy recommendation for regular texture, thin liquid diet with aspiration precautions, double swallow, liquid seizure, seated upright at 90 degrees during p.o. intake, remain upright for at least 30-60 minutes post-meal with continued speech assessment outpatient which was set-up with his home health care per discussion with CM/SW. Discharge Time: > 35 Minutes DAY OF DISCHARGE PROGRESS NOTE: Subjective: Patient without acute event overnight per self and nursing report. Patient breathing improved, weaned from oxygen, coughing lessened. Patient denies fever, chills, nausea, emesis, abdominal pain, chest pain or dyspnea. Patient agreeable to discharge to home with home health. He improved w/ PT and walked nearly 30 feet the day prior. Patient will be discharged with follow-up with primary care physician in addition to Dr. Barba. Objective: T 98.2, heart rate 86, BP 121/53, respiratory rate 16, 94% on room air. Physical Examination: General: awake, alert, oriented to self, place, year, recent events, improved from prior, cooperative, seated upright, in no apparent distress. Skin: normal color, turgor, no icterus, cyanosis except notable bilateral lower extremity chronic venous skin stasis wound/ulcers, lymphedema currently PATITO wrapped. HEENT: AT/NC, EOMI, PERRLA, improved MMM. Lungs: Diminished BS BL, > BL bases, mild effort, mild rales bases, no wheezing. Heart: Regular rate and rhythm; no gallop, rub audible. Abdomen: soft, NTTP, ND, normal BS. Extremities: no cyanosis, clubbing, see skin. Neurological: awake, alert, oriented as noted, improving, seated upright in bed in no apparent distress; cognitive function improved; pupils equally reactive to light and accomodation; cranial nerves II-XII grossly normal, moving all 4 extremities, strength improving, moderately globally decreased. Psychiatric: affect appears normal, no acute evidence of depressive or anxiety feelings. Assessment and Plan: Please see hospital summary above. Inpatient E AND M: [id number] Disch Hosp 10/02/18 1500 <Electronically signed by Maureen Siddiqui > Date Maureen Siddiqui cc: ABISAI Green; Maureen Siddiqui; Vijay Mason MD * Signed Discharge Date and Diagnosis Date of Admission: 09/29/18 Date of Discharge: 10/02/18 - Primary Discharge Diagnosis Acute sepsis 2/2 bacteremia and Acute RLL HCAP 2/2 strep pneumonia. 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 There is a small right-sided effusion is suspected Echo: Interpretation Summary The study was technically difficult. Left ventricular systolic function is normal. The estimated ejection fraction is 55 %. Mild concentric left ventricular hypertrophy. Mildly dilated right ventricle. The left atrium is mildly enlarged. The right atrium is mildly enlarged. Mild (1+) mitral valve insufficiency. Mild to moderate (1-2+) tricuspid valve insufficiency. Mild focal aortic valve thickening. Trivial pericardial effusion. There are no echocardiographic indications of cardiac tamponade. Echolucency c/w a pleural effusion. Right ventricular systolic pressure estimated to be 64 mmHg c/w pulmonary hypertension. There is evidence of diastolic dysfunction. Bubble contrast study negative for right to left interatrial shunt. 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 No acute findings in the brain Barium swallow: IMPRESSION: This patient presents with mild oropharyngeal dysphagia. Oral phase is marked by: sufficient labial seal/oral containment; significantly prolonged mastication w/ slowed lingual motion resulting in difficulty collecting bolus cohesively for A- P transit. Pharyngeal phase is marked by: delayed pharyngeal swallow onset w/ 1st 5mL bolus only; improved timing for swallow onset w/ all subsequent boluses across consistencies assessed; reduced tongue base retraction/anterior hyoid movement resulting incomplete epiglottic inversion w/ tongue base/vallecular contrast collection; incomplete laryngeal elevation/diminished posterior pharyngeal stripping wave resulting in poor pharyngeal bolus clearance; complete laryngeal vestibule closure was achieved w/ no penetration or aspiration occurring throughout this study; partial obstruction of bolus flow at the C4-5 level d/t osteophytes impeding bolus flow w/ contrast retention atop the PES. Use of liquid wash and multiple swallow was only somewhat effective to reduce pharyngeal residue retention. Although penetration/aspiration did not occur under fluoroscopy, this patient is at an increased risk to aspirate if compensatory precautions not adhered to properly. DIET TEXTURE RECOMMENDATIONS: Will recommend a regular texture/thin liquid diet. RAD/Swallowing Function w/Video IMPRESSION: Normal tailored barium swallow study. No evidence of increased risk for aspiration. RAD/Chest PA and Lateral IMPRESSION: Since prior study, there has been progressive increase in the right pleural effusion. Mild improvement in the right pulmonary infiltration. 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 Operations: None Procedures: 2-D Echocardiogram Summary of Care Provided: Hospital Course: The patient is a 83 year old M with pmhx of lymphedema, PAfib, CKDIII, dysphagia, prior stroke, chronic anemia, HTN, HLD, gout, carotid artery disease s/p CEA, bph, who presented to the ER with increased confusion and SOB. He was found to be septic with RLL pna and pleural effusion. He was placed in PCU on tele, and started on Rocephin and azithromycin. His blood cultures grew positive x 2 overnight with strep pneumo, urine antigen also + for strep pneumo. ID was consulted. Abx were de-escalated to rocephin only. He appeared to have a component of diastolic CHF exacerbation as well, and cardiology was consulted. He was managed with lasix and placed on a heparin drip. His repeat cultures grew negative. He was weaned off O2. With his hx of dysphagia, speech therapy and swallow studies were ordered, which he passed. Heparin was DCd and low dose eliquis was started given his age and kidney dysfunction. He was discharged to Home with Home Health Care in stable condition. He will need to see cardiology as an outpatient in 2 weeks, and his PCP in 1-2 weeks. He should continue daily wound care for his lymphedema. He will continue PT and OT at home. His weights and renal function need to be monitored. He was placed on Oral amoxicillin 500mg po bid for 7 more days for DC to clear his infection. This patient was seen by Lion Green PA-C under the supervision of Dr. Siddiqui. [] - Physical Exam General: Alert, Oriented x3, Cooperative HEENT: Atraumatic, PERRLA, EOMI, Normocephalic Neck: Supple, No JVD, Negative Carotid Bruits Lungs: Diminished, Rales - RML/RLL Cardiovascular: Regular rate, No murmurs Abdomen: Bowel Sounds Present, Soft, Non Tender Extremities: No edema, Capillary Refill Less than 3 Seconds Skin: No rashes, No breakdown Musculoskeletal: No Tenderness to Palpation of Joints or Extremities Neurological: Cranial nerves II-XII grossly intact Psych/Mental Status: Normal Affect, Appropriate, Alert and oriented to time, place, person, mood and affect Vital Signs Temp Pulse Resp BP Pulse Ox 98.2 F 86 16 121/53 H 94 10/02/18 13:51 10/02/18 13:51 10/02/18 13:51 10/02/18 13:51 10/02/18 13:51 Oxygen Flow Rate (L/min) 1 Oxygen Delivery Method Room Air Weight: 178 lb 9.191 oz Body Mass Index (BMI) 25.7 Finger Stick Blood Glucose 122 Intake and Output for Last 24 Hours Intake Total 4147.8 / 4147.8 966 / 966 724 / 724 Output Total 450 / 450 200 / 200 125 / 125 Balance 3697.8 / 3697.8 766 / 766 599 / 599 Microbiology Past 72 Hours 09/30/18 16:38 Blood Culture - Preliminary Blood Culture (Wb) - Anticubital Left Laboratory Tests Past 24 Hrs WBC Discharge Diet: Low fat/ Low Cholesterol, 2000 mg Sodium Diet Discharge Activity: Return to Normal Activity Home Medications: Medications to take at Discharge Allopurinol 300 mg PO DAILY 10/10/16 Cholecalciferol (Vitamin D3) [Vitamin D3] 50,000 unit PO BURGOS 10/10/16 Labetalol [Trandate (Beta Mavis)] 200 mg PO BID 10/10/16 Aspirin E.C. [Ecotrin] 81 mg PO DAILY 08/14/18 Finasteride [Proscar] 5 mg PO DAILY 08/19/18 Epoetin Royer [Procrit] 10,000 units SC Q14D ml 09/11/18 Iron Polysaccharide Complex [Ferrex 150] 150 mg PO DAILYCM #30 capsule 09/11/18 Menthol/Lanolin/Calamine/Znox [Calmoseptine Ointment] 1 applic TOPICAL , tube 09/11/18 Acetaminophen [Tylenol Tablet] 650 mg PO Q6H PRN PRN tab 10/02/18 Albuterol Aerosols [Ventolin Aerosols] 2.5 mg INHALATION Q2H PRN PRN vial.neb. 10/02/18 Amoxicillin [Amoxil] 500 mg PO Q12H #14 cap 10/02/18 Apixaban [Eliquis] 2.5 mg PO BID #60 tab 10/02/18 Ensure Enlive 120 ml PO 4X/DAY liquid 10/02/18 Furosemide 40 mg PO DAILY #30 tab 10/02/18 Magnesium Hydroxide [Milk Of Magnesia] 30 ml PO DAILY PRN udc 10/02/18 Pravastatin [Pravachol] 40 mg PO QHS tab 10/02/18 Following Prescrptions Were Given to Patient: Amoxicillin [Amoxil] 500 mg PO Q12H #14 cap Apixaban [Eliquis] 2.5 mg PO BID #60 tab Furosemide 40 mg PO DAILY #30 tab Other Amb Orders: Basic Metabolic Profile (BMP) Time Frame: 5 Days, Location: Laboratory Primary Care Physician: Vijay Mason MD [Primary Care Provider] - Please follow up with your Primary Care Physician in: 1-2 weeks Please Follow Up With: Rah Barba MD When: 2 weeks Please Follow Up With: Vijay Mason MD Disposition: Home with Home Health Medical Necessity - Tobacco Use Smoking Status: Never smoker Meaningful Use Info Meaningful Use Diagnoses (Choose all that apply): CHF - CHF PATITO/ARB ordered at discharge?: No Reason PATITO/ARB not ordered?: Worsening renal function Documented LVEF (%): 55 10/02/18 1444 <Electronically signed by Lion BARONE> Date Lion BARONE 10/02/18 1445<Electronically signed by Maureen Siddiqui > Cosigner Signature (if applicable): Date Maureen Siddiqui CC: ABISAI Green; Maureen Siddiqui; Vijay Mason MD Signed DISCHARGE INSTRUCTION Observed: 10/02/2018 Status: C Source: MARK 2:[address] [facility]POSITORY [facility] Medical Records Department [address] [place] [address] Instructions for Home/Discharge Instructions 10/02/18 1000 MR#: [id number] Acct: [id number] Name: DOUG CAST Rep #: [id number] : 1935 83 From: Lion BAROEN PCP: Vijay Mason MD Status: DIS IN ADDENDUM by Maureen Siddiqui on 10/02/18 at 1455 Additional Follow-up recommendation: Please follow-up with your materials planner or consider Dr. Sandrine Ramirez within 1-2 weeks given progressively worsening renal disease and recent acute kidney injury on chronic kidney disease. Date Maureen Siddiqui cc: Oscar Wilson M.D.; Rah Barba MD; Vijay Mason MD * Addendum ADDENDUM by ABISAI Green on 10/02/18 at 1015 Addendum: Lasix changed to 40 mg once daily. Please have a BMP checked within 5 days. 10/02/18 1015 Date Lion Green cc: Oscar Wilson M.D.; Rah Barba MD; Vijay Mason MD * Addendum - Discharge Diagnoses Current Active Problems: Current Active and Chronic Problems Acute kidney injury superimposed on chronic kidney disease (Acute) HCAP (healthcare-associated pneumonia) (Acute) Atrial fibrillation with RVR (Acute) Severe sepsis (Acute) Delirium due to another medical condition (Acute) Hypoxemia (Acute) Pneumonia (Acute) Carotid artery disease (Acute) You will use the following diet at home:: Cardiac Your food should be the consistency of: Regular Your liquids should be the consistency of: Regular/Thin Discharge Activity: Return to Normal Activity Allergies/Adverse Reactions: Allergies No Known Allergies Allergy (Verified 04/13/17 14:20) Medications to take at Discharge Allopurinol 300 mg PO DAILY 10/10/16 Cholecalciferol (Vitamin D3) [Vitamin D3] 50,000 unit PO BURGOS 10/10/16 Labetalol [Trandate (Beta Mavis)] 200 mg PO BID 10/10/16 Aspirin E.C. [Ecotrin] 81 mg PO DAILY 08/14/18 Finasteride [Proscar] 5 mg PO DAILY 08/19/18 Epoetin Royer [Procrit] 10,000 units SC Q14D ml 09/11/18 Iron Polysaccharide Complex [Ferrex 150] 150 mg PO DAILYCM #30 capsule 09/11/18 Menthol/Lanolin/Calamine/Znox [Calmoseptine Ointment] 1 applic TOPICAL , tube 09/11/18 Acetaminophen [Tylenol Tablet] 650 mg PO Q6H PRN PRN tablet 10/02/18 Albuterol Aerosols [Ventolin Aerosols] 2.5 mg INHALATION Q2H PRN PRN vial.neb. 10/02/18 Amoxicillin [Amoxil] 500 mg PO Q12H #14 capsule 10/02/18 Apixaban [Eliquis] 2.5 mg PO BID tablet 10/02/18 Ensure Enlive 120 ml PO 4X/DAY liquid 10/02/18 Furosemide [Lasix] 40 mg PO BID #30 tablet 10/02/18 Guaifenesin [Mucinex] 1,200 mg PO BID tablet 10/02/18 Magnesium Hydroxide [Milk Of Magnesia] 30 ml PO DAILY PRN udc 10/02/18 Pravastatin [Pravachol] 40 mg PO QHS tablet 10/02/18 The following prescriptions were given: Amoxicillin [Amoxil] 500 mg PO Q12H #14 capsule Primary Care Physician: Vijay Mason MD [Primary Care Provider] - Please follow up with your Primary Care Physician in: 1-2 weeks Test Results: Test results from this visit will be discussed in further detail at your follow-up appointment, if applicable. Please Follow Up With: Rah Barba MD When: 2 weeks Proposed Discharge Date: 10/02/18 10/02/18 1001 <Electronically signed by Lion BARONE> Date Lion BARONE CC: Oscar Wilson M.D.; Rah Barba MD; Vijay Mason MD Observed: 10/02/2018 Status: F Source: MARK CULTURE, BLOOD (WB) 8:[address] [facility] REPOSITORY Has pt arrived? Y BC No growth in 5 days. Performed By: #### M200.1000 #### [facility] [address] [place], [address] Observed: 10/02/2018 Status: F Source: MARK CULTURE, BLOOD (WB) 8:[address] [facility] REPOSITORY Has pt arrived? Y BC No growth in 5 days. Performed By: #### M200.1000 #### [facility] [address] [place], [address] BASIC METABOLIC Collected: 10/02/2018 Status: F Source: MARK PROFILE (BMP) 6:[address] [facility] REPOSITORY TYPE CODE TESTS RESULT OUT OF RANGE REFERENCE UNITS LAB L501.0100 74-106 mg/dL High GLU 124 Result Comment: Fasting Glucose result from 100 to 125 mg/dL suggests IMPAIRED HOMEOSTASIS per A.D.A. criteria. Please note revised GLUCOSE reference range effective 2017. LAB L501.1000 7-18 mg/dL High BUN 77 LAB L501.1100 0.70-1.30 mg/dL High CREAT,SERUM 2.71 Result Comment: The validity of the calculated GFR AND GFRAA in patients over 70 years has not been determined. Clinical correlation is essential. LAB L501.1110 >60 mL/min Low EST GFR 24 Result Comment: Non- GFR Calc LAB L501.1115 >60 mL/min Low EST GFR - AA 29 Result Comment: GFR Calc LAB L501.1255 ml/min Normal Estimated CRCL 20.68 LAB L501.1300 10-20 RATIO High BUN/CRE 28.4 LAB L501.2200 8.5-10 mg/dL Normal .1 CA 8.5 LAB L501.5300 136-14 mmol/L Normal 5 NA 143 LAB L501.5600 3.5-5. mmol/L Normal 1 K 3.9 LAB L501.5900 98-107 mmol/L Normal CL 105 LAB L501.6100 21.0-3 mmol/L Normal 2.0 CO2 29.0 LAB L501.6200 5-15 Normal GAP 9 Performed By: #### L500.2500 #### [facility] [address] [place], [place], [id number] CBC W/DIFF, AUTOMATED Collected: 10/02/2018 Status: F Source: MARK 6:[address] [facility] REPOSITORY Order Comment: Comments: due to heparin drip, per policy TYPE CODE TESTS RESULT OUT OF RANGE REFERENCE UNITS LAB L100.1000 4.4-11.0 K/mm3 Normal WBC 8.8 LAB L100.1200 4.6-6.2 M/mm3 Low RBC 3.41 LAB L100.1300 13.0-16.5 g/dl Low HGB 9.6 LAB L100.1400 40-54 % Low HCT 31.6 LAB L100.1500 80-94 fL Normal MCV 92.7 LAB L100.1600 27.0-32.0 pg Normal MCH 28.2 LAB L100.1700 32-36 g/gl Low MCHC 30.4 LAB L100.1810 11.6-14.6 % Normal RDW CV 14.1 LAB L100.1820 35.1-43.9 fl High RDW SD 45.9 LAB L100.1900 150-450 K/mm3 Low PLT 137 LAB L100.2000 6.2-12.0 fl Normal MPV 11.3 LAB L100.2100 47-70 % High NEUT% 91.0 LAB L100.2200 19-41 % Low LY% 3.0 LAB L100.2300 0-10 % Normal MONO% 5.5 LAB L100.2400 0-5 % Normal EO% 0.2 LAB L100.2500 0-1 % Normal BASO% 0.1 LAB L100.2550 0.0-0.9 % Normal IM GRAN % 0.200 Result Comment: IG% - Immature Granulocytes (promyelocytes, myelocytes and metamyelocytes) > 1% indicates that a LEFT SHIFT is Present. LAB L100.2620 2.0-7.7 X10 3/uL High Absolute Neut 8.0 LAB L100.2720 0.83-4.51 X10 3/ul Low Absolute Lymph 0.26 Performed By: #### L100.0100 #### [facility] [address] [place], [address] PARTIAL THROMBOPLAST Collected: 10/02/2018 Status: F Source: MARK TIME 6:[address] [facility] REPOSITORY Order Comment: Comments: on heparin drip TYPE CODE TESTS RESULT OUT OF REFERENCE UNITS RANGE LAB L300.4310 24.1-36.2 Seconds High PTT 72.4 Performed By: #### L300.4310 #### [facility] [address] [place], [address] CHEST PA AND LATERAL Observed: 10/02/2018 Status: F Source: MARK 12:[address] [facility] REPOSITORY [facility] Imaging Services [address] [place] [address] Chest PA and Lateral MR#: [id number] Acct: [id number] Name: DOUG CAST Rep #: [id number] : 1935 M 83 From: Stiven Ball MD PCP: Vijay Mason MD Status: ADM IN Study: Chest PA and Lateral Date of Exam: 10/02/18 Exam# [id number] Ordering Dr: Lion Green STUDY: X-RAY CHEST REASON FOR EXAM: Male, 83 years old. Shortness of breath and dyspnea. TECHNIQUE: AP and lateral views of the chest. COMPARISON: Comparison is made with prior study dated September 28, 2018. FINDINGS: EKG electrodes are seen. Since prior study, there has been progressive increase in the right pleural effusion. Mild improvement in the right lung infiltration. Stable appearance of the left hemithorax. Normal size heart. Normal mediastinum and jordan. Normal visualized pulmonary arteries. There is atherosclerotic tortuosity of the aortic arch and descending thoracic aorta. There are diffuse degenerative changes of the visualized thoracic spine. Normal visualized ribs, clavicles, and shoulders. There is no demonstrated abnormality of the visualized soft tissue structures of the upper abdomen. RAD/Chest PA and Lateral IMPRESSION: Since prior study, there has been progressive increase in the right pleural effusion. Mild improvement in the right pulmonary infiltration. Electronically Signed: Stiven Ball MD at 13:51 EST Tel [phone], Service support , CC: ABISAI Green; Vijay Mason MD Safety Leader: Signed PARTIAL THROMBOPLAST Collected: 10/01/2018 Status: F Source: CINE[place] TIME 8:[address] [facility] REPOSITORY TYPE CODE TESTS RESULT OUT OF REFERENCE UNITS RANGE LAB L300.4310 24.1-36.2 Seconds High PTT 72.6 Performed By: #### L300.4310 #### [facility] [address] [facility] [place], [address] 12 LEAD ELECTROCARDIOGRAM Observed: 10/01/2018 Status: F Source: CINEBAR 2:[address] [facility] REPOSITORY [facility] Cardiovascular Services [address] [place] [address] 12 Lead EKG 09/28/18 2232 MR#: [id number] Acct: [id number] Name: DOUG CAST Rep #: [id number] : 1935 83 From: Rah Barba MD Attending Dr: Maureen Siddiqui Status: ADM IN Ordering Dr: Baltazar Sultana MD Date: 09/28/18 Location: [facility] Sex: M C Admitted: 09/29/18 Test Reason : CP Blood Pressure : / mmHG Vent. Rate : 109 BPM Atrial Rate : 109 BPM P-R Int : 000 ms QRS Dur : 134 ms QT Int : 338 ms P-R-T Axes : 000 -64 034 degrees QTc Int : 455 ms Atrial fibrillation with rapid ventricular response Right bundle branch block Left anterior fascicular block Bifascicular block Abnormal ECG Confirmed by BRET MACK, RAH ([id number]), state editor SARY MA ([id number]) on 10/01/2018 2:55:25 PM Referred By: MARY Confirmed By:RAH BARBA MD 10/01/18 1455 Date Rah Barba MD CC: Maureen Siddiqui; BALTAZAR SULTANA MD; Vijay Mason MD Signed PARTIAL THROMBOPLAST Collected: 10/01/2018 Status: F Source: MARK TIME 2:[address] [facility] REPOSITORY TYPE CODE TESTS RESULT OUT OF REFERENCE UNITS RANGE LAB L300.4310 24.1-36.2 Seconds High PTT 76.0 Performed By: #### L300.4310 #### [facility] [address] [facility] [place], [address] MODIFIED BARIUM Observed: 10/01/2018 Status: F Source: CINE[place] SWALLOW STUDY 1:[address] [facility] REPOSITORY [facility] Speech Pathology [address] [place] [address] Modified Barium Swallow Study MR#: [id number] Acct: [id number] Name: DOUG CAST Rep #: [id number] : 1935 83 From: Nohemy Booth M.A. [facility] PRIMARY / SECONDARY DIAGNOSIS: HCAP/dysphagia REFERRING PHYSICIAN: Dr. Maureen Siddiqui CURRENT DIET: regular textures/thin liquids DENTITION: upper dentures in place, lower edentulous MENTAL STATUS: able to follow commands for participation in MBS RESPIRATORY STATUS: on 2L/min O2 via nasal cannula at time of MBS completion w/ diminished RLL lung sounds per most recent nursing documentation PREVIOUS MODIFIED BARIUM SWALLOW STUDY: n/a REASON FOR REFERRAL: Pt is an 83 YOM admitted to [facility] on 09/29/2018 d/t shortness of breath, workup revealed sepsis with bacteremia secondary to gram positive pneumonia, atrial fibrillation w/ RVR, metabolic encephalopathy. Pt. known to [facility] [employer] department from admission earlier this year (Jul), reports intermittent purposeful throat clearing during intake, though it is uncertain as to why. Reports continued and somewhat worsened hypogeusia. Given the etiology for admission, multiple prior workup results, and lack of clarity identified at bedside, a modified barium swallow study was recommended. 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 08/14/2018 CT revealed increasing encephalomalacia in the left parietal lobe suggesting remote left MCA distribution infarct. 08/16/2018 CT revealed a remote left MCA distribution infarct STUDY FINDINGS: Patient participated in a Modified Barium Swallow (MBS) study on 10/01/2018. Dr. Ball was the radiologist present for this evaluation. This study was recorded in the lateral view and images were sent to PACs for storage. The following consistencies were presented to this patient for analysis of oropharyngeal swallow function: thin liquid, pudding, and a regular texture Syeda Doone shortbread cookie. Results of the MBS are as follows: PENETRATION / ASPIRATION SCALE (ERNST): 1 = does not enter airway 2 = enters airway/above vocal folds/ejected 3 = enters airway/above vocal folds/not ejected 4 = enters airway/contacts vocal folds/ejected 5 = enters airway/contacts vocal folds/not ejected 6 = enters airway/below vocal folds/ejected 7 = enters airway/below vocal folds/not ejected despite effort 8 = enters airway/below vocal folds/no effort PENETRATION / ASPIRATION SCALE (SCORE): Thin via 5mL - teaspoon: 1 Thin via cup: 1 Thin via cup: 1 Thin via straw: 1 Puddin Cookie: 1 Thin via cup: 1 Thin via cup - sequential swallows: 1 ORAL PHASE CHARACTERIZED BY: LABIAL SEAL: no labial escape TONGUE CONTROL DURING BOLUS MANIPULATION: Posterior escape of less than half of bolus BOLUS PREPARATION / MASTICATION: slow prolonged chewing/mashing with complete recollection BOLUS TRANSPORT / LINGUAL MOTION: slowed tongue motion ORAL RESIDUE: residue collection on oral structures PHARYNGEAL PHASE CHARACTERIZED BY: INITIATION OF PHARYNGEAL SWALLOW: bolus head in pyriforms at first hyoid excursion with 5mL tsp swallow following cued oral holding; bolus head at posterior angle of ramus at first hyoid excursion w/ all subsequent boluses presented SOFT PALATE ELEVATION: no bolus between soft palate and pharyngeal wall LARYNGEAL ELEVATION: partial superior movement of thyroid cartilage/partial approximation of arytenoids cartilage to epiglottic petiole ANTERIOR HYOID EXCURSION: partial anterior movement EPIGLOTTIC MOVEMENT: partial epiglottic inversion LARYNGEAL VESTIBULE CLOSURE AT HEIGHT OF SWALLOW: complete laryngeal vestibule closure with no air/contrast in laryngeal vestibule PHARYNGEAL STRIPPING WAVE: pharyngeal stripping wave present / diminished PHARYNGOESOPHAGEAL SEGMENT OPENING: partial distension and partial duration; partial obstruction of flow C4-5 osteophytes impeding bolus flow TONGUE BASE RETRACTION: narrow column of contrast between tongue base and posterior pharyngeal wall PHARYNGEAL RESIDUE: collection of residue within or on pharyngeal structures collection along tongue base, valleculae, contrast lining the aryepiglottic folds and pyriform sinuses ESOPHAGEAL PHASE CHARACTERIZED BY: ESOPHAGEAL BOLUS CLEARANCE IN THE UPRIGHT POSITION: esophageal retention EFFECTS OF TREATMENT STRATEGIES ATTEMPTED: Double swallow = somewhat effective Liquid chaser = somewhat effective IMPRESSION: This patient presents with mild oropharyngeal dysphagia. Oral phase is marked by: sufficient labial seal/oral containment; significantly prolonged mastication w/ slowed lingual motion resulting in difficulty collecting bolus cohesively for A- P transit. Pharyngeal phase is marked by: delayed pharyngeal swallow onset w/ 1st 5mL bolus only; improved timing for swallow onset w/ all subsequent boluses across consistencies assessed; reduced tongue base retraction/anterior hyoid movement resulting incomplete epiglottic inversion w/ tongue base/vallecular contrast collection; incomplete laryngeal elevation/diminished posterior pharyngeal stripping wave resulting in poor pharyngeal bolus clearance; complete laryngeal vestibule closure was achieved w/ no penetration or aspiration occurring throughout this study; partial obstruction of bolus flow at the C4-5 level d/t osteophytes impeding bolus flow w/ contrast retention atop the PES. Use of liquid wash and multiple swallow was only somewhat effective to reduce pharyngeal residue retention. Although penetration/aspiration did not occur under fluoroscopy, this patient is at an increased risk to aspirate if compensatory precautions not adhered to properly. DIET TEXTURE RECOMMENDATIONS: Will recommend a regular texture/thin liquid diet. COMPENSATORY STRATEGIES RECOMMENDED: double swallow, liquid chaser, seated upright at 90 degrees during PO intake, remain upright for 30-60 minutes post meal (GERD precaution) SKILLED SPEECH THERAPY This patient requires intensive skilled speech-language intervention targeting and implementation of recommended compensatory strategies and implementation of an oral/oropharyngeal strengthening exercise maintenance program to preserve current function and prevent future decline; exercises targeting lingual control and oral/pharyngeal strength. ADDITIONAL COMMENTS/RECOMMENDATIONS: Results and recommendations were discussed with the Patient immediately following MBS completion, with the Patient verbalizing understanding and agreement with all recommendations and education provided. 10/01/18 1341 <Electronically signed by Nohemy Booth M.A. [employer]> Date Nohemy Booth M.A. [employer] Co-Signature Required for all Medicare patients Date/Time Co-Signature CC: BASIC METABOLIC Collected: 10/01/2018 Status: F Source: MARK LEMUS ([facility]) 6:[address] [facility] REPOSITORY TYPE CODE TESTS RESULT OUT OF RANGE REFERENCE UNITS LAB L501.0100 74-106 mg/dL High GLU 117 Result Comment: Fasting Glucose result from 100 to 125 mg/dL suggests IMPAIRED HOMEOSTASIS per A.D.A. criteria. Please note revised GLUCOSE reference range effective 2017. LAB L501.1000 7-18 mg/dL High BUN 74 LAB L501.1100 0.70-1.30 mg/dL High CREAT,SERUM 2.67 Result Comment: The validity of the calculated GFR AND GFRAA in patients over 70 years has not been determined. Clinical correlation is essential. LAB L501.1110 >60 mL/min Low EST GFR 25 Result Comment: Non- GFR Calc LAB L501.1115 >60 mL/min Low EST GFR - AA 30 Result Comment: GFR Calc LAB L501.1255 ml/min Normal Estimated CRCL 20.99 LAB L501.1300 10-20 RATIO High BUN/CRE 27.7 LAB L501.2200 8.5-10 mg/dL Low .1 CA 8.2 LAB L501.5300 136-14 mmol/L Normal 5 NA 143 LAB L501.5600 3.5-5. mmol/L Normal 1 K 3.8 LAB L501.5900 98-107 mmol/L Normal CL 104 LAB L501.6100 21.0-3 mmol/L Normal 2.0 CO2 28.0 LAB L501.6200 5-15 Normal GAP 11 Performed By: #### L500.2500 #### [facility] [address] [place], [place], [address] CBC W/DIFF, AUTOMATED Collected: 10/01/2018 Status: F Source: MARK 6:[address] [facility] REPOSITORY TYPE CODE TESTS RESULT OUT OF RANGE REFERENCE UNITS LAB L100.1000 4.4-11.0 K/mm3 Normal WBC 7.8 LAB L100.1200 4.6-6.2 M/mm3 Low RBC 3.27 LAB L100.1300 13.0-16.5 g/dl Low HGB 9.3 LAB L100.1400 40-54 % Low HCT 30.3 LAB L100.1500 80-94 fL Normal MCV 92.7 LAB L100.1600 27.0-32.0 pg Normal MCH 28.4 LAB L100.1700 32-36 g/gl Low MCHC 30.7 LAB L100.1810 11.6-14.6 % Normal RDW CV 13.9 LAB L100.1820 35.1-43.9 fl High RDW SD 45.0 LAB L100.1900 150-450 K/mm3 Low PLT 133 LAB L100.2000 6.2-12.0 fl Normal MPV 11.9 LAB L100.2100 47-70 % High NEUT% 91.0 LAB L100.2200 19-41 % Low LY% 3.1 LAB L100.2300 0-10 % Normal MONO% 5.5 LAB L100.2400 0-5 % Normal EO% 0.1 LAB L100.2500 0-1 % Normal BASO% 0.0 LAB L100.2550 0.0-0.9 % Normal IM GRAN % 0.300 Result Comment: IG% - Immature Granulocytes (promyelocytes, myelocytes and metamyelocytes) > 1% indicates that a LEFT SHIFT is Present. LAB L100.2620 2.0-7.7 X10 3/uL Normal Absolute Neut 7.1 LAB L100.2720 0.83-4.51 X10 3/ul Low Absolute Lymph 0.24 Performed By: #### L100.0100 #### [facility] [address] [place], [place], [address] PARTIAL THROMBOPLAST Collected: 10/01/2018 Status: F Source: MARK TIME 6:[address] [facility] REPOSITORY TYPE CODE TESTS RESULT OUT OF REFERENCE UNITS RANGE LAB L300.4310 24.1-36.2 Seconds High PTT 84.3 Performed By: #### L300.4310 #### [facility] [address] [place], [address] MAGNESIUM Collected: 10/01/2018 Status: F Source: MARK 6:[address] [facility] REPOSITORY Order Comment: Comments: ok to add on TYPE CODE TESTS RESULT OUT OF RANGE REFERENCE UNITS LAB L501.5200 1.6-2.6 mg/dL Normal MG 1.8 Performed By: #### L501.5200 #### [facility] [address] [place], [address] PHOSPHORUS Collected: 10/01/2018 Status: F Source: MARK 6:[address] [facility] REPOS[facility] Order Comment: Comments: ok to add on TYPE CODE TESTS RESULT OUT OF RANGE REFERENCE UNITS LAB L501.2300 2.5-4.9 mg/dL Normal PHOS 3.8 Performed By: #### L501.2300 #### [facility] [address] [place], [address] SWALLOWING FUNCTION Observed: 10/01/2018 Status: F Source: MARK W/VIDEO 12:[address] [facility] REPOSITORY [facility] Imaging Services [address] [place] [address] Swallowing Function w/Video MR#: [id number] Acct: [id number] Name: DOUG CAST Rep #: [id number] : 1935 M 83 From: Stiven Ball MD PCP: Vijay Mason MD Status: ADM IN Study: Swallowing Function w/Video Date of Exam: 10/01/18 Exam# [id number] Ordering Dr: Maureen Siddiqui STUDY: SWALLOWING STUDY REASON FOR EXAM: Male, 83 years old. Dysphagia. TECHNIQUE: The examination was performed with Speech Pathology in attendance. Under fluoroscopic observation, the patient ingested thin barium, thick barium, barium pudding, and barium coated cracker. FLUOROSCOPY TIME: 3:06 minutes/seconds. 2871 fluoroscopic images were obtained. RADIOLOGIST INVOLVEMENT: Radiologist was present and providing direct supervision. COMPARISON: None. FINDINGS: The following was observed during swallowing of the various mixtures of barium: There is a prolonged oral phase. Thin Barium: There was no evidence of aspiration or laryngeal penetration. Barium Pudding: There was no evidence of aspiration or laryngeal penetration. Moderate residual within the vallecula. Barium Coated Cracker: There was no evidence of aspiration or laryngeal penetration. RAD/Swallowing Function w/Video IMPRESSION: Normal tailored barium swallow study. No evidence of increased risk for aspiration. The swallow study findings were discussed with the patient by the speech pathologist at the conclusion of the examination. Please see speech pathology report for more information and recommendations. Electronically Signed: Stiven Ball MD at 11:40 EST Tel [phone], Service support , CC: Maureen Siddiqui; Vijay Mason MD Safety Leader: Signed Observed: 09/30/2018 Status: F Source: MARK CULTURE, BLOOD (WB) 4:[address] [facility] REPOSITORY Has pt arrived? Y BC No growth in 5 days. Performed By: #### M200.1000 #### [facility] [address] [place], [place], [address] Observed: 09/30/2018 Status: F Source: MARK CULTURE, BLOOD (WB) 4:[address] [facility] REPOSITORY Has pt arrived? Y BC No growth in 5 days. Performed By: #### M200.1000 #### [facility] [address] [place], [place], [address] ECHOCARDIOGRAM COMPLETE Observed: 09/30/2018 Status: F Source: MARK 4:[address] [facility] REPOSITORY [facility] Cardiovascular Services [address] [place] [address] Echo Complete 09/30/18 1457 MR#: [id number] Acct: [id number] Name: DOUG CAST Rep #: [id number] : 1935 83 From: Rah Barba MD Attending Dr: Maureen Siddiqui Status: ADM IN Ordering Dr: Chase Zavala MD Date: 09/29/18 Location: [facility] Sex: M C Admitted: 09/29/18 Reason For Study: ATRIAL FIB-FLUTTER Procedure This was a 2D Doppler, Color Flow transthoracic echocardiogram. The study was technically difficult. Exam performed portable in patient room. Left Ventricle Normal LV size. Mild concentric left ventricular hypertrophy. Left ventricular systolic function is normal. The estimated ejection fraction is 55 %. There is evidence of diastolic dysfunction. No regional wall motion abnormalities noted. Right Ventricle Mildly dilated right ventricle. Normal systolic function. Atria The left atrium is mildly enlarged. The right atrium is mildly enlarged. No doppler evidence for ASD. Bubble contrast study negative for right to left interatrial shunt. Mitral Valve There is no mitral annular calcification. Normal mitral valve. Mild (1+) mitral valve insufficiency. Tricuspid Valve Normal tricuspid valve. Mild to moderate (1-2+) tricuspid valve insufficiency. Right ventricular systolic pressure estimated to be 64 mmHg. Aortic Valve Trisinus/trileaflet aortic valve. Mild focal aortic valve thickening. Pulmonic Valve The pulmonic valve is not well visualized. Great Vessels Normal sized aortic root. Pericardium/Pleural Trivial pericardial effusion. There are no echocardiographic indications of cardiac tamponade. Echolucency c/w a pleural effusion. Medication Performed a rapid injection of agitated mix of 9 cc saline and 1cc air to assess for atrial septal defect. MMode/2D Measurements AND Calculations LVIDd: 5.2 cm IVSd: 1.4 cm Ao root diam: 3.2 cm LVIDs: 3.5 cm LVPWd: 1.3 cm RVDd: 4.4 cm FS: 31.5 % LAV(MOD-bp): 73.5 ml LVAd ap4: 34.9 cm2 SV(MOD-sp4): 53.3 ml LAV(MOD-bp) Indexed: 37.8 ml/m2 EDV(MOD-sp4): 111.4 ml LAV(MOD-sp2): 97.0 ml EDV(sp4-el): 114.5 ml LAV(MOD-sp4): 53.8 ml LVAs ap4: 22.6 cm2 ESV(MOD-sp4): 58.1 ml ESV(sp4-el): 55.1 ml EF(MOD-sp4): 47.8 % EF(sp4-el): 51.9 % SV(sp4-el): 59.4 ml LA A4 area: 20.7 cm2 LA dimension(2D): 3.9 cm RA A4 area: 21.1 cm2 Time Measurements MV dec time: 0.39 sec Doppler Measurements AND Calculations MV E max cheryl: 55.4 cm/sec Lat Peak E' Cheryl: 7.8 cm/sec Med Peak E' Cheryl: 6.3 cm/sec MV A max cheryl: 84.3 cm/sec E/E' lat: 7.1 E/E' med: 8.7 MV E/A: 0.66 Ao V2 max: 148.1 cm/sec LV V1 max: 103.5 cm/sec PA V2 max: 81.7 cm/sec Ao max P.8 mmHg LV V1 max P.3 mmHg TR max cheryl: 373.7 cm/sec TR max P.8 mmHg Interpretation Summary The study was technically difficult. Left ventricular systolic function is normal. The estimated ejection fraction is 55 %. Mild concentric left ventricular hypertrophy. Mildly dilated right ventricle. The left atrium is mildly enlarged. The right atrium is mildly enlarged. Mild (1+) mitral valve insufficiency. Mild to moderate (1-2+) tricuspid valve insufficiency. Mild focal aortic valve thickening. Trivial pericardial effusion. There are no echocardiographic indications of cardiac tamponade. Echolucency c/w a pleural effusion. Right ventricular systolic pressure estimated to be 64 mmHg c/w pulmonary hypertension. There is evidence of diastolic dysfunction. Bubble contrast study negative for right to left interatrial shunt. Ordering Physician: Chase Zavala Referring Physician: VIJAY MASON Performed By: Carla Reardon RDCS 12/01/13 1623 Date Rah Barba MD CC: Maureen Siddiqui; Chase Zavala MD; Vijay Mason MD Date Dictated: 09/30/18 1457 Date Transcribed: 09/30/181622 Safety Leader: Signed CONSULTATION Observed: 09/30/2018 Status: F Source: CINEBAR 11:[address] [facility] REPOSITORY [facility] Medical Records Department [address] [place] [address] Consultation 09/30/18 1146 MR#: [id number] Acct: [id number] Name: DOUG CAST Rep #: [id number] : 1935 83 From: Oscar Wilson MD PCP: Vijay Mason MD Status: ADM IN Y Location: [place] [address] Reason for Consult: Pneumococcal pneumonia with bacteremia Consulted by: Dr. Siddiqui History of Present Illness: The patient is a 83 year old M [] This is an 83-year-old gentleman with multiple comorbidities including previous stroke and underwent carotid endarterectomy in the past, chronic renal disease, chronic lymphedema of his lower extremities with recent multiple hospitalizations over the last 6 months who presents with progressive weakness and confusion. Patient denies any respiratory distress nor phlegm production. He did have evidence of new onset atrial fibrillation and an abnormal chest x-ray on admission. His admission blood cultures from September 28 are growing Streptococcus pneumoniae. Patient was initially placed on parenteral vancomycin and Zosyn. He is currently on ceftriaxone. Patient denies any active or history of tobacco abuse and denies any active alcohol abuse. Denies any pleuritic chest pain. He is on nasal cannula O2 at this time no gastrointestinal distress no urological symptoms. 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) Lymphedema of lower extremity (Chronic) Nephrolithiasis (Chronic) Gout (Chronic) CKD (chronic kidney disease), stage III (Chronic) BPH (benign prostatic hyperplasia) (Chronic) Benign hypertension (Chronic) Anemia (Chronic) Chronic renal insufficiency, stage III (moderate) (Chronic) Nonstaphylococcal scalded skin syndrome (Chronic) Arthritis (Chronic) Allergies/Adverse Reactions: Allergies No Known Allergies Allergy (Verified 04/13/17 14:20) Home Medications: Ambulatory Orders Medication Instructions Recorded Allopurinol 300 mg PO DAILY 10/10/16 Review of Systems Comment: Noncontributory Vital Signs Temp Pulse Resp BP Pulse Ox 97.9 F 78 20 H 133/80 H 95 09/30/18 09:35 09/30/18 11:25 09/30/18 11:25 09/30/18 09:35 09/30/18 09:35 Oxygen Flow Rate (L/min) 1 Oxygen Delivery Method Nasal Cannula Weight: 79.4 kg Body Mass Index (BMI) 25.7 Finger Stick Blood Glucose 122 Microbiology Past 72 Hours 09/28/18 22:33 Blood Culture - Preliminary Blood Culture (Wb) - Anticubital Right Streptococcus pneumoniae Laboratory Tests Past 24 Hrs WBC RBC Hgb Hct MCV WBC 8.0 RBC 3.38 L WBC RBC Hgb Hct MCV MCH MCHC RDW RDW Differential Plt Count MPV Immature Gran % (Auto) Neut % (Auto) Lymph % (Auto) - Other Studies Radiology: [] Other Studies: [] Route of nutrition/ use of supplements: [] Nutritional Intake: [] IV Site: [] Lloyd Catheter: [] Patient is alert chronically ill-appearing in no acute distress. Lungs some coarse breath sounds right lung field heart exam S1-S2 abdomen soft no focal tenderness. He does have bilateral chronic lymphedema with chronic ulcerations. - Assessment/Plan Antibiotics: [] Assessment/Plan: [] Active and Suspected Problems Acute kidney injury superimposed on chronic kidney disease (Acute) HCAP (healthcare-associated pneumonia) (Acute) Atrial fibrillation with RVR (Acute) Severe sepsis (Acute) Delirium due to another medical condition (Acute) Hypoxemia (Acute) Pneumonia (Acute) Carotid artery disease (Acute) Pneumococcal pneumonia with bacteremia and elderly man. I agree with daily ceftriaxone 2 g daily, will have sensitivities of the pneumococcus in the next 24 hours. Continue current antibiotic therapy and supportive care. 09/30/18 [id number] <Electronically signed by Oscar Wilson MD> Date Oscar Wilson MD Cosigner Signature (if applicable): Date CC: Oscar Wilson M.D.; Rah Barba MD; Vijay Mason MD Signed CBC W/DIFF, AUTOMATED Collected: 09/30/2018 Status: F Source: MARK 5:[address] [facility] REPOSITORY TYPE CODE TESTS RESULT OUT OF RANGE REFERENCE UNITS LAB L100.1000 4.4-11.0 K/mm3 Normal WBC 8.0 LAB L100.1200 4.6-6.2 M/mm3 Low RBC 3.38 LAB L100.1300 13.0-16.5 g/dl Low HGB 9.4 LAB L100.1400 40-54 % Low HCT 30.7 LAB L100.1500 80-94 fL Normal MCV 90.8 LAB L100.1600 27.0-32.0 pg Normal MCH 27.8 LAB L100.1700 32-36 g/gl Low MCHC 30.6 LAB L100.1810 11.6-14.6 % Normal RDW CV 13.9 LAB L100.1820 35.1-43.9 fl High RDW SD 46.6 LAB L100.1900 150-450 K/mm3 Low PLT 128 LAB L100.2000 6.2-12.0 fl Normal MPV 10.8 LAB L100.2100 47-70 % High NEUT% 92.3 LAB L100.2200 19-41 % Low LY% 3.9 LAB L100.2300 0-10 % Normal MONO% 3.8 LAB L100.2400 0-5 % Normal EO% 0.0 LAB L100.2500 0-1 % Normal BASO% 0.0 LAB L100.2550 0.0-0.9 % Normal IM GRAN % 0.000 Result Comment: IG% - Immature Granulocytes (promyelocytes, myelocytes and metamyelocytes) > 1% indicates that a LEFT SHIFT is Present. LAB L100.2620 2.0-7.7 X10 3/uL Normal Absolute Neut 7.4 LAB L100.2720 0.83-4.51 X10 3/ul Low Absolute Lymph 0.31 LAB L100.4500 Normal SMEAR COMMENT SCANNED Result Comment: LYMPHOPENIA NOTED Performed By: #### L100.0100 #### [facility] [address] [place], [address] PARTIAL THROMBOPLAST Collected: 09/30/2018 Status: F Source: MARK TIME 5:[address] [facility] REPOSITORY Order Comment: Comments: Heparin gtt TYPE CODE TESTS RESULT OUT OF REFERENCE UNITS RANGE LAB L300.4310 24.1-36.2 Seconds High PTT 70.6 Performed By: #### L300.4310 #### [facility] [address] [place], [address] BASIC METABOLIC Collected: 09/30/2018 Status: F Source: MARK PROFILE (BMP) 5:[address] [facility] REPOSITORY TYPE CODE TESTS RESULT OUT OF RANGE REFERENCE UNITS LAB L501.0100 74-106 mg/dL High GLU 115 Result Comment: Fasting Glucose result from 100 to 125 mg/dL suggests IMPAIRED HOMEOSTASIS per A.D.A. criteria. Please note revised GLUCOSE reference range effective 2017. LAB L501.1000 7-18 mg/dL High BUN 71 LAB L501.1100 0.70-1.30 mg/dL High CREAT,SERUM 2.55 Result Comment: The validity of the calculated GFR AND GFRAA in patients over 70 years has not been determined. Clinical correlation is essential. LAB L501.1110 >60 mL/min Low EST GFR 26 Result Comment: Non- GFR Calc LAB L501.1115 >60 mL/min Low EST GFR - AA 31 Result Comment: GFR Calc LAB L501.1255 ml/min Normal Estimated CRCL 21.98 LAB L501.1300 10-20 RATIO High BUN/CRE 27.8 LAB L501.2200 8.5-10 mg/dL Low .1 CA 7.9 LAB L501.5300 136-14 mmol/L Normal 5 NA 144 LAB L501.5600 3.5-5. mmol/L Normal 1 K 3.9 LAB L501.5900 98-107 mmol/L Normal CL 106 LAB L501.6100 21.0-3 mmol/L Normal 2.0 CO2 28.0 LAB L501.6200 5-15 Normal GAP 10 Performed By: #### L500.2500 #### [facility] [address] [facility] [place], [place], [address] PARTIAL THROMBOPLAST Collected: 09/29/2018 Status: F Source: CINEBAR TIME 9:[address] [facility] REPOSITORY Order Comment: Comments: HEPARIN DRIP VRI TYPE CODE TESTS RESULT OUT OF REFERENCE UNITS RANGE LAB L300.4310 24.1-36.2 Seconds High PTT 62.6 Performed By: #### L300.4310 #### [facility] [address] [place], [address] PARTIAL THROMBOPLAST Collected: 09/29/2018 Status: F Source: CINEBAR TIME 3:[address] [facility] REPOSITORY Order Comment: REDRAW. PREVIOUS SPECIMEN WAS REJECTED FOR TESTING DUE TO HEMOLYSIS. SPECIMEN WAS DISCARDED. 09/29/18 1549 Sarwat Milton Taylorkristyn. TYPE CODE TESTS RESULT OUT OF REFERENCE UNITS RANGE LAB L300.4310 24.1-36.2 Seconds High PTT 69.4 Performed By: #### L300.4310 #### [facility] [address] [place], [place], [address] CONSULTATION Observed: 09/29/2018 Status: F Source: CINEBAR 1:[address] [facility] REPOSITORY [facility] Medical Records Department [address] [place] [id number] Consultation 09/29/18 1335 MR#: [id number] Acct: [id number] Name: SEGUNDOUG Rep #: [id number] : 1935 83 From: Rah Barba MD PCP: Vijay Mason MD Status: ADM IN Y Location: [place] [address] Problem List (1) Atrial fibrillation with RVR Status: Acute (2) Hyperlipidemia Status: Chronic (3) Hypertension Status: Chronic (4) Carotid artery disease Status: Acute (5) Chronic renal insufficiency, stage III (moderate) Status: Chronic (6) Lymphedema Status: Chronic (7) Pneumonia Status: Acute (8) Pleural effusion, right Status: Chronic Reason for Consult Date of Consultation: 09/29/18 History of Present Illness: The patient is a 83 year old white male with a past complex medical history who is referred for evaluation of atrial fibrillation superimposed on history of hyperlipidemia, hypertension, carotid artery disease status post bilateral carotid endarterectomy- remote, chronic renal insufficiency, lymphedema, concerns of pneumonia, and a right- sided pleural effusion. The patient has been in and out of the [facility] and its associated transitional care unit recently for his complex medical history. He presented back based upon concerns of a cough, being somewhat short of breath, diminished appetite, and his personal concerns of having an underlying infection. He did not complain of ongoing chest discomfort classic for angina pectoris. He did state he had acid reflux which he believes was relieved by antacids. He has not not noted any acute orthopnea or PND. He has chronic lower extremity peripheral pitting edema which is been attributed to lymphedema. There has been no near syncope or syncope. He has denied any obvious palpitations. He does not believe he has gone through any cardiovascular diagnostic studies in the past. He has been evaluated. He was found to have negative troponin I levels. He was noted to be in atrial fibrillation. An ECG demonstrated atrial fibrillation with left axis deviation with right bundle branch block and a left anterior fascicular block. He was noted to have spontaneous return to sinus rhythm. A chest x-ray had been performed which suggested increased pulmonary vascularity/infiltrates especially right sided as well as a right sided pleural effusion. He has been placed on medical management. He is already been on beta-mavis therapy with labetalol/Normodyne. He was placed on anticoagulant therapy with IV heparin. He is also been placed on dual IV antibiotic therapy. 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) Lymphedema of lower extremity (Chronic) Nephrolithiasis (Chronic) Gout (Chronic) CKD (chronic kidney disease), stage III (Chronic) BPH (benign prostatic hyperplasia) (Chronic) Benign hypertension (Chronic) Anemia (Chronic) Chronic renal insufficiency, stage III (moderate) (Chronic) Nonstaphylococcal scalded skin syndrome (Chronic) Arthritis (Chronic) Surgical History: - - Bilateral carotid endarectomy - *Family History Paternal Family History: Family History (Last Reviewed 09/29/18 @ 01:26 by Chase Zavala MD) Mother Hyperthyroidism Father Diabetes Aortic aneurysm rupture History Items: Diabetes Maternal Family History: Family History (Last Reviewed 09/29/18 @ 01:26 by Chase Zavala MD) Mother Hyperthyroidism Father Diabetes Aortic aneurysm rupture History Items: Heart Disease Lives: With Family Smoking Status: Never smoker Alcohol: Occasional Drugs: None Review of Systems - Review of Systems General: Reports: Fatigue. Denies: Fever, Night Sweats Cardiovascular: Reports: Shortness of Breath, Peripheral Edema. Denies: Chest Discomfort, Orthopnea, PND, Palpitations, Lightheadedness, Dizziness, Near Syncope, Syncope Respiratory: Reports: Non Productive Cough, Shortness of Breath. Denies: Cough, Sputum Production, Hemoptysis Gastrointestinal: Reports: Heart Burn. Denies: Hematemesis, Hematochezia, Melena Genitourinary: Denies: Dysuria, Hematuria Skin: Denies: Rash Subjectve: This is an 83-year-old white male who appears to be resting comfortably at the moment in no acute distress. Objective: Vital Signs Temp Pulse Resp BP Pulse Ox 98.3 F 82 18 151/69 H 96 09/29/18 10:30 09/29/18 11:07 09/29/18 11:03 09/29/18 10:30 09/29/18 10:30 Oxygen Flow Rate (L/min) 4 Oxygen Delivery Method Nasal Cannula Weight: 173 lb 8.061 oz Body Mass Index (BMI) 25.7 Finger Stick Blood Glucose 122 Intake and Output for Last 24 Hours Intake Total 599 / 599 Output Total 70 / 70 Balance 529 / 529 General: Awake, Alert, Oriented x 3, Cooperative, No Acute Distress HEENT: Atraumatic, Normocephalic, PERRL, EOMI, Sclera Non Icteric Oral: Moist Mucosa Neck: Supple, Good ROM, No JVD Lungs: Diminished Right Base Cardiovascular: Regular Rhythm, Normal S1, Normal S2 Vascular: Delfino Carotid Artery Bruits Abdomen: Bowel Sounds Present, Soft, Non Tender Extremities: Moderate RLE Edema, Moderate LLE Edema Psych/Mental Status: Appropriate 09/28/18 22:33: WBC 16.1 H, RBC 4.06 L, Hgb 11.9 L, Hct 37.5 L, MCV 92.4, MCH 29.3, MCHC 31.7 L, RDW 13.8, RDW Differential 45.5 H, Plt Count 186, MPV 11.3, Immature Gran % (Auto) 0.300, Neut % (Auto) 93.1 H, Lymph % (Auto) 2.2 L, [place] % (Auto) 4.2, Eos % (Auto) 0.1, Baso % (Auto) 0.1, Absolute Neuts (auto) 15.0 H, Total Counted Not Reportable 09/28/18 22:33: Sodium 141, Potassium 4.3, Chloride 101, Carbon Dioxide 31.0, Anion Gap 9, BUN 50 H, Creatinine 2.35 H, Est GFR (MDRD) Af Amer 34 L, Est GFR (MDRD) Non-Af 28 L, BUN/Creatinine Ratio 21.3 H, Glucose 121 H, Calcium 8.7, Troponin I < 0.015 09/28/18 22:33: Lactic Acid 2.1 H 09/28/18 22:33: Magnesium 1.7 09/28/18 23:55: Urine Color Yellow, Urine Clarity Cloudy, Urine pH 5.0, Ur Specific [place] 1.020, Urine Protein 500 H, Urine Glucose (UA) Normal, Urine Ketones Negative, Urine Occult Blood 10 H, Urine Nitrite Negative, Urine Bilirubin 1 H, Urine Urobilinogen 1 H, Ur Leukocyte Esterase 25 H, Urine RBC 0-5 SEEN, Urine WBC 0-5 SEEN 09/29/18 02:20: PT 19.2 H, INR 1.6, APTT 58.1 H 09/29/18 03:14: Sodium 142, Potassium 3.7, Chloride 104, Carbon Dioxide 28.0, Anion Gap 10, BUN 51 H, Creatinine 2.32 H, Est GFR (MDRD) Af Amer 35 L, Est GFR (MDRD) Non-Af 29 L, BUN/Creatinine Ratio 22.0 H, Glucose 127 H, Calcium 7.7 L 09/29/18 03:14: WBC 12.3 H, RBC 3.43 L, Hgb 9.6 L, Hct 31.4 L, MCV 91.5, MCH 28.0, MCHC 30.6 L, RDW 14.1, RDW Differential 47.4 H, Plt Count 141 L, MPV 11.1 09/29/18 03:14: Lactic Acid 1.1 09/29/18 03:14: B-Natriuretic Peptide 236.5 H 09/29/18 08:46: APTT 69.4 H Rhythm: As noted above EKG: As noted above with subsequent ECG demonstrating sinus rhythm CXR: As noted above Assessment/Plan 1. Paroxysmal atrial fibrillation The patient demonstrated evidence of paroxysmal atrial fibrillation. The etiology may be related to a combination of factors including his age, history of hypertension, underlying pulmonary disease, infectious related issues, etc. At the present time he has returned to sinus rhythm. He will continue to be monitored. He will continue medical therapy. This will include his beta- mavis therapy and anticoagulant therapy. At the moment he is on IV heparin. Depending upon his clinical course consideration will be given to the need for future transition to oral systemic anticoagulant therapy. In the interim he will also undergo further evaluation. This will include a transthoracic echocardiogram to evaluate his atrial size as well as his ventricular wall motion and systolic function. 2. Hyperlipidemia He will continue lipid-lowering therapy as deemed appropriate. 3. Hypertension His blood pressure will need to be followed. His medications can be adjusted as deemed appropriate. 4. Carotid artery disease status post bilateral carotid endarterectomy This does place the patient is a higher risk for having other forms of arterial occlusive disease such as coronary artery disease. At the moment he has no evidence of ongoing acute coronary syndrome. However he will need to be monitored for any obvious evidence of underlying CAD that may require further evaluation and care as his clinical course progresses. 5. Chronic renal insufficiency This will need to be taken into consideration if the patient would require any type of evaluation regarding IV contrast could lead to IV contrast mediated nephropathy. 6. Lymphedema Patient has chronic bilateral lower extremity peripheral pitting edema which she has attributed to lymphedema. He will continue diuretic therapy as deemed appropriate. His renal function will be followed. 7. Pneumonia There is concern based on the patient's symptoms and his examination and his radiologic findings that he has underlying pneumonia. He will need to continue medical management and follow-up. 8. Pleural effusion The patient does have the appearance of a right-sided pleural effusion. Hopefully this will improve with medical therapy. If not he may need to be considered for thoracentesis. Comment: The above was discussed with the patient and his [id number] who was present at this time. This note was generated using a voice recognition system and there may be incorrect words, spelling or punctuation that were not noted when reviewing the office note prior to saving. 09/29/18 1346 <Electronically signed by Rah Barba MD> Date Rah Barba MD Cosigner Signature (if applicable): Date CC: Rah Barba MD; Vijay Mason MD Signed STREP Observed: 09/29/2018 Status: F Source: MARK PNEUMONIAE ANTIG(UR,CSF) 10:[address] [facility] REPOSITORY Order Date: 09/29/18 Has pt arrived? Y S pneumo Ag URINE INTERPRETATION Positive Urine Positive for pneumococcal pneumonia. RESULTS CALLED TO Megan MOURA 09/29/18 Miguel Cleveland. REPORT READ BACK BY JORDAN. Copy of report sent to Infection Control Printer [id number] 09/29/18 Miguel LÓPEZ. Strep pneumo Test Urine POSITIVE for pneumococcal pneumonia. ORGANISM 1: Streptococcus pneumonia Ag Performed By: #### M300.4600 #### [facility] [address] [place], [address] Observed: 09/29/2018 Status: F Source: MARK LEGIONELLA ANTIGEN 10:[address] [facility] URINE REPOSITORY Order Date: 09/29/18 Has pt arrived? Y Specimen Source: URINE, CATHETER Legionella, UR Legionella Antigen result interpretation: Negative Presumptive negative for Legionella pneumophila serogroup 1 antigen in urine, suggesting no recent or current infection. Legionella Ag, Urine Negative (See interpretation below) Performed By: #### M300.4500 #### [facility] [address] [facility] [place], [place], [address] PARTIAL THROMBOPLAST Collected: 09/29/2018 Status: F Source: MARK TIME 8:[address] [facility] REPOSITORY TYPE CODE TESTS RESULT OUT OF REFERENCE UNITS RANGE LAB L300.4310 24.1-36.2 Seconds High PTT 69.4 Performed By: #### L300.4310 #### [facility] [address] [facility] [place], [place], [address] CBC-COMPLETE BLOOD CNT Collected: 09/29/2018 Status: F Source: MARK NO DIFF 3:[address] [facility] REPOSITORY TYPE CODE TESTS RESULT OUT OF RANGE REFERENCE UNITS LAB L100.1000 4.4-11.0 K/mm3 High WBC 12.3 LAB L100.1200 4.6-6.2 M/mm3 Low RBC 3.43 LAB L100.1300 13.0-16.5 g/dl Low HGB 9.6 LAB L100.1400 40-54 % Low HCT 31.4 LAB L100.1500 80-94 fL Normal MCV 91.5 LAB L100.1600 27.0-32.0 pg Normal MCH 28.0 LAB L100.1700 32-36 g/gl Low MCHC 30.6 LAB L100.1810 11.6-14.6 % Normal RDW CV 14.1 LAB L100.1820 35.1-43.9 fl High RDW SD 47.4 LAB L100.1900 150-450 K/mm3 Low PLT 141 LAB L100.2000 6.2-12.0 fl Normal MPV 11.1 Performed By: #### L100.0500 #### [facility] [address] [facility] [address] [place], [place], [address] BASIC METABOLIC Collected: 09/29/2018 Status: F Source: MARK PRO[facility] (BMP) [facility] TYPE CODE TESTS RESULT OUT OF RANGE REFERENCE UNITS LAB L501.0100 74-106 mg/dL High GLU 127 Result Comment: Fasting Glucose result greater than or equal to 126 mg/dL suggests DIABETES MELLITUS per A.D.A. criteria. Please note revised GLUCOSE reference range effective 2017. LAB L501.1000 7-18 mg/dL High BUN 51 LAB L501.1100 0.70-1.30 mg/dL High CREAT,SERUM 2.32 Result Comment: The validity of the calculated GFR AND GFRAA in patients over 70 years has not been determined. Clinical correlation is essential. LAB L501.1110 >60 mL/min Low EST GFR 29 Result Comment: Non- GFR Calc LAB L501.1115 >60 mL/min Low EST GFR - AA 35 Result Comment: GFR Calc LAB L501.1255 ml/min Normal Estimated CRCL 24.16 LAB L501.1300 10-20 RATIO High BUN/CRE 22.0 LAB L501.2200 8.5-10 mg/dL Low .1 CA 7.7 LAB L501.5300 136-14 mmol/L Normal 5 NA 142 LAB L501.5600 3.5-5. mmol/L Normal 1 K 3.7 LAB L501.5900 98-107 mmol/L Normal CL 104 LAB L501.6100 21.0-3 mmol/L Normal 2.0 CO2 28.0 LAB L501.6200 5-15 Normal GAP 10 Performed By: #### L500.2500 #### [facility] [address] [place], [place], [address] LACTIC ACID Collected: 09/29/2018 Status: F Source: MARK 3:[address] [facility] REPOSITORY TYPE CODE TESTS RESULT OUT OF RANGE REFERENCE UNITS LAB L503.6005 0.4-2.0 mmol/L Normal LACTIC ACID 1.1 Performed By: #### L503.6005 #### [facility] [address] [place], [place], [address] BNP,B-TYPE NATRIURETIC Collected: 09/29/2018 Status: F Source: MARK PEPTIDE 3:[address] [facility] REPOSITORY Order Comment: Comments: from blood in lab. TYPE CODE TESTS RESULT OUT OF RANGE REFERENCE UNITS LAB L503.6620 0-100 pg/mL High B-TYPE 236.5 ARNOLD PEP Performed By: #### L503.6620 #### [facility] [address] [place], [address] PROTHROMBIN TIME W/INR Collected: 09/29/2018 Status: F Source: MARK 2:[address] [facility] REPOSITORY TYPE CODE TESTS RESULT OUT OF RANGE REFERENCE UNITS LAB L300.4150 11.7-14.9 SECONDS High PROTIME 19.2 LAB L300.4200 Normal INR 1.6 Performed By: #### L300.3900, L300.4310 #### [facility] [address] [facility] [place], [address] PARTIAL THROMBOPLAST Collected: 09/29/2018 Status: F Source: MARK TIME 2:[address] [facility] REPOSITORY TYPE CODE TESTS RESULT OUT OF REFERENCE UNITS RANGE LAB L300.4310 24.1-36.2 Seconds High PTT 58.1 Performed By: #### L300.3900, L300.4310 #### [facility] [address] [facility] [place], [address] HISTORY AND PHYSICAL Observed: 09/29/2018 Status: F Source: MARK EXAM 1:[address] [facility] REPOSITORY [facility] Medical Records Department [address] [place] [id number] History and Physical 09/29/18 0005 MR#: [id number] Acct: [id number] Name: DOUG CAST Rep #: [id number] : 1935 83 From: Chase Zavala MD PCP: Vijay Mason MD Status: ADM IN Location: [address] Problem List (1) Acute kidney injury superimposed on chronic kidney disease Status: Acute (2) Atrial fibrillation with RVR Status: Acute (3) Delirium due to another medical condition Status: Acute (4) HCAP (healthcare-associated pneumonia) Status: Acute History of Present Illness Date of Admission: 09/29/18 Chief Complaint: shortness of breath The patient is a 83 year old M with a significant history of CVA status post bilateral carotid endarterectomy; hypertension; chronic lymphedema who was hospitalized at our hospital on 08/14/2018 and discharged on 08/19/2018 for bilateral leg cellulitis, JOSEF on CKD, rhabdomyolysis, metabolic encephalopathy secondary to uremia and was subsequently discharged to a transitional care unit; who presents with increasing shortness of breath a few hours before his admission. Family reported that earlier in the day patient was weak. Later on he began to have shortness of breath at rest and was confused. His symptoms were progressively worsening. In the past week patient he has had a nonproductive cough. At the emergency department patient was found to have tachycardia, tachypnea; leukocytosis and was found in A. fib with RVR. His chest x-ray showed cardiomegaly with a severe pulmonary congestion. Brain CT scan at the ED did not show any acute pathology. 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) Lymphedema of lower extremity (Chronic) Nephrolithiasis (Chronic) Gout (Chronic) CKD (chronic kidney disease), stage III (Chronic) BPH (benign prostatic hyperplasia) (Chronic) Benign hypertension (Chronic) Anemia (Chronic) Chronic renal insufficiency, stage III (moderate) (Chronic) Nonstaphylococcal scalded skin syndrome (Chronic) Arthritis (Chronic) Allergies No Known Allergies Allergy (Verified 04/13/17 14:20) Home Medications: Ambulatory Orders Medication Instructions Recorded Allopurinol 300 mg PO DAILY 10/10/16 Cholecalciferol (Vitamin D3) 50,000 unit PO BURGOS 10/10/16 Surgical History: - - Bilateral carotid endarectomy Lives: With Family Smoking Status: Never smoker Alcohol: Occasional - *Family History Paternal Family History: Family History (Last Reviewed 09/29/18 @ 01:26 by Chase Zavala MD) Mother Hyperthyroidism Father Diabetes Aortic aneurysm rupture History Items: Diabetes Maternal Family History: Family History (Last Reviewed 09/29/18 @ 01:26 by Chase Zavala MD) Mother Hyperthyroidism Father Diabetes Aortic aneurysm rupture History Items: Heart Disease Review of Systems Constitutional: Denies: Chills, Fever, Weight Change HEENT: Denies: Head Aches, Sinus Congestion, Sinus Drainage Cardiovascular: Denies: Chest Pain, Palpitations Respiratory: Reports: Cough, Shortness of breath at rest. Denies: Sputum production Gastrointestinal: Denies: Abdominal Pain, Nausea, Vomiting Genitourinary: Denies: Dysuria Musculoskeletal: Denies: Joint Pain, Joint Tenderness Skin: Reports: Wounds - Bilateral leg wound.. Denies: Rash Neurological: Denies: Numbness, Tingling, Focal weakness Psychiatric: Denies: Anxiety, Depression, Homicidal Ideations, Suicidal Ideations Hematologic/ Lymphatic: Denies: Easy Bruising, Easy Bleeding VTE Information - Inpt Only VTE Present on Admission: No VTE Mechan Device Prophylaxis: None VTE Pharm Prophylaxis ordered?: No Reason prophylaxis not ordered:: Treatment Not Indicated - Patient has been started on heparin for Afib. - Physical Exam General: Alert, Oriented x3 - Patient new the month but not the year. He thought the year was . With some hesistancy he mentioned the name of the president, [employer] HEENT: Atraumatic, Normocephalic Neck: Supple, No JVD, Negative Carotid Bruits Lungs: Wheezes Cardiovascular: No murmurs, Irregular Rate Abdomen: Bowel Sounds Present, Soft, Non Tender Extremities: Edema - Bilateral leg edema Skin: Ulcer/ Wound - Bilateral leg wounds. Musculoskeletal: No Tenderness to Palpation of Joints or Extremities Neurological: Neuro grossly intact - Except patient did not know the year and she had some hesitancy before mentioned the name of the president of the [facility]. 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) Sepsis affecting skin (Acute) Rhabdomyolysis (Acute) Acute kidney injury superimposed on chronic kidney disease (Acute) Hyperkalemia (Acute) Metabolic encephalopathy (Acute) Cellulitis of leg (Acute) HCAP (healthcare-associated pneumonia) (Acute) Atrial fibrillation with RVR (Acute) Severe sepsis (Acute) Delirium due to another medical condition (Acute) Hypoxemia (Acute) Wound infection (Acute) Confusion (Acute) Sepsis (Acute) The patient is a 83 year old M with a significant history of CVA status post bilateral carotid endarterectomy; hypertension; chronic lymphedema who was hospitalized at the hospital on 08/14/2018 and discharged on 08/19/2018 for bilateral leg cellulitis, AK I on CKD, rhabdomyolysis, metabolic encephalopathy secondary to uremia and was subsequently discharged to a transitional care unit who presented with increasing shortness of breath; confusion and weakness and with radiographic evidence of pulmonary congestion consistent with sepsis secondary to hospital associated pneumonia. Sepsis secondary to hospital associated pneumonia. Lactic acid: 2.1; trend RR 29-37 Tachycardia: Atrial fibrillation with RVR with rate of about 110 Oxygen saturation: Initially 86% on 6 L Temperature 100.6. White count of 16.1 Patient meets SIRS criteria. Source of infection is his lungs. qSOFA score of 2 points (altered mental status; respiratory rate more than 22). CURB 65: 3 (confusion, uremia, increased respiratory rate) Blood culture 2 is pending Chest x-ray: Showed cardiomegaly with central vascular congestive changes and areas of consolidation in the right lung representing either pneumonia or pulmonary edema. There is small right-sided effusion suspected. I reviewed chest x- ray and I agree with radiologist's reading. Patient has a dry cough; sputum culture not ordered. Antibiotics: Patient received vancomycin and Zosyn at emergency department. Vancomycin and Zosyn will be continued with renal adjustments. Pharmacy to dose vancomycin. Patient received IV normal saline hydration which improved his heart rate. We will continue maintenance normal saline IV infusion especially as patient has AK I on CKD.. DuoNeb scheduled. Albuterol as needed Legionella antigen screen and Strep antigen ordered Prednisone 40 mg x1 was ordered due to severity of his pneumonia and wheezing on examination. Supplemental oxygen to maintain saturation of more than 90%. Echocardiogram to rule out any underlying heart failure. Trend CBC and BMP. Atrial fibrillation [id number] Score: Age >=75 (2 points) ; HTN (1 point); Stroke history (2 points) = 5 points. 7.2% stroke risk per year Admitted to PCU on telemetry Obtain echo Since patient is having AK I on CKD with creatinine clearance of 24.65 Lovenox was not ordered. Heparin bolus and drip ordered. No rate control at this time except continuation of his home labetalol. Patient's heart rate improved with IV fluids. Likely infection threw him into A. fib. TSH and magnesium level ordered. Sodium and potassium were unremarkable. We will consult cardiology to optimize management. JOSEF on CKD His creatinine on admission was 2.35. His creatinine about a month ago was 1.49. Baseline creatinine is about 1.42. BUN on admission was 50. BUN over creatinine is 21.3. Likely etiology is prerenal. However can not rule out intrinsic renal failure from sepsis. Gentle IV hydration with normal saline. Avoid nephrotoxic's. If JOSEF does not improve can consider urinary studies and imaging. Trend BMP. Acute encephalopathy Brain CT without any acute pathology but with old infarct involving the left middle cerebral artery distribution.. Likely secondary to sepsis due to hospitalization associated pneumonia. Continue treatment of sepsis as above. Generalized weakness Likely due to stress sepsis due to pneumonia. Treatment of sepsis as above. PT and OT to work patient. Hypertension At Admission blood pressure was not within goal. Continue home labetalol. Trend blood pressure and adjust blood pressure medication as necessary. Chronic lymphedema with wound Patient takes Lasix at home because of lymphedema. We will hold Lasix at this time because of sepsis with AK I. Continue Adaptic and Kerlix roll to bilateral legs Wound care consult. DVT prophylaxis Not indicated in the setting of patient started on a heparin drip for A. fib. Code Visit Inpatient E AND M: [id number] Init Hosp L3 09/29/18 0157 <Electronically signed by Chase Zavala MD> Date Chase Zavala MD Cosigner Signature: Date (if applicable) CC: Chase Zavala MD; Vijay Mason MD Signed EMERGENCY DEPARTMENT Observed: 09/29/2018 Status: F Source: MARK SUMMARY 12:[address] [facility] Medical Records Department [address] [place] [address] Emergency Department Summary 09/28/18 2254 MR#: [id number] Acct: [id number] Name: DOUG CAST Rep #: [id number] : 1935 83 From: Baltazar Sultana MD PCP: Vijay Mason MD Status: REG ER History of Present Illness Chief Complaint: Alt LOC Informant: Patient, Family Limited by: - - altered Onset: Today - last several hours Context: Sudden Onset Timing: Continuous Quality: confused Current Severity: Moderate Maximum Severity: Moderate Associated Symptoms: pt denies any other sx Narrative: Patient recently had infected wounds on his legs, followed by rhabdomyolysis and admission to the hospital and then about a month in rehab. He has been confused this evening, family states he has been appearing to be short of breath off and on today although the patient denies it. They state that he has had a chronic right-sided pleural effusion of unknown etiology, they cannot remember if it is ever been tested or not but he has no history of heart issues, A. fib which he appears to be in now, or congestive heart failure. 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 (8) Lymphedema of lower extremity Status: Chronic (9) Nephrolithiasis Status: Chronic (10) Gout Status: Chronic (11) CKD (chronic kidney disease), stage III Status: Chronic (12) MRSA (methicillin resistant Staphylococcus aureus) infection Status: Inactive (13) Anemia Status: Chronic (14) Arthritis Status: Chronic Past Medical History - Allergies and Home Meds Allergies/Adverse Reactions: Allergies No Known Allergies Allergy (Verified 04/13/17 14:20) Primary Care Physician: Vijay Mason MD [Primary Care Provider] - Surgical History: - - Bilateral carotid endarectomy Smoking Status: Never smoker - Family History Paternal Family History: Family History (Last Reviewed 08/15/18 @ 11:35 by Bernardino Drake MD) Mother Hyperthyroidism Father Diabetes Aortic aneurysm rupture Family History: Reports: Diabetes Maternal Family History: Family History (Last Reviewed 08/15/18 @ 11:35 by Bernardino Drake MD) Mother Hyperthyroidism Father Diabetes Aortic aneurysm rupture Family History: Reports: Heart Disease Review of Systems ROS: Unable to Obtain - limitetd due to confusion General: Reports: Malaise. Denies: Chills, Fever, Sweats Eyes: Denies: Visual changes - bilaterally, Diplopia ENT: Denies: Bilateral ear pain, Sore throat Cardiovascular: Denies: Chest pain, Palpitations, Heart racing Respiratory: Denies: Dyspnea - although family states breathing fast today, Cough, Dyspnea on exertion Gastrointestinal: Denies: Abdominal pain, Nausea, Vomiting, Diarrhea, Melena, Hematochezia Genitourinary: Reports: Frequency - urinary incontinence - new. Denies: Dysuria, Hematuria Musculoskeletal: Reports: Swelling - BLE chronic. Denies: Extremity Pain Skin: Reports: Wounds - BLE x mos. Denies: Rash, Abscess Neurological: Denies: Headache, Weakness, Parasthesia, Numbness Endocrine: Denies: Polyuria, Polydipsia Allergy: Denies: Swelling of the mouth, Swelling of the tongue Physical Exam Vital Signs/Narrative: Vital Signs 09/28/18 22:29 100.6 F H 110 H 37 H 141/77 H 94 Inital Vital Signs reviewed: Yes General: Well nourished, Well developed Head: Normocephalic, Atraumatic Eyes: Perrl, EOMI. Negative for: Scleral icterus ENT: No rhinorrhea, Dry mucous membranes. Negative for: Sinus tenderness Neck: Supple, Nontender, No lymphadenopathy, No JVD Cardiovascular: Irregular, Tachycardia Respiratory: Chest nontender, Rales - R base, Diminished - R base, - - tachypneic and abdominal breathing, conversive in full sentences Abdomen: Soft, Nontender, Nondistended, Normal bowel sounds Back: Nontender, Normal Inspection. Negative for: CVA tenderness Extremities: Nontender, Edema - 1+ BLE, mostly in feet, - - multiple healing wounds BLE lower legs, all nontender Skin: Normal color, - - erythema more distal LLE, nontender Neurological: Alert, Cranial nerves II-XII grossly intact, Normal Strength, Normal Sensation, Disoriented - year/month. oriented to person and place, and his relatives. Psychological: Normal affect Diagnostic/Tx/Re-eval Impressions Chest X-Ray 09/28/18 23:02 IMPRESSION: Cardiomegaly with central vascular congestive changes and areas of consolidation in the right lung representing either pneumonia or pulmonary edema. There is a small right-sided effusion is suspected Electronically Signed: Johnathan Wakefield MD at 23:53 EST Tel , Service support , 09/28/18 22:48 Brain/Head without Contrast [CT] Stat 09/28/18 23:02 Chest 1 View (Portable) [RAD] Stat Laboratory Results WBC 16.1 H RBC 4.06 L Hgb 11.9 L WBC RBC Hgb Hct MCV MCH MCHC RDW RDW Differential Plt Count MPV Immature Gran % (Auto) Neut % (Auto) Lymph % (Auto) [place] % (Auto) - Rhythm Strip Rhythm Strip: A-fib Rate: 125 Ectopy: None - EKG Initial EKG Interpretation: No Acute Injury Pattern, Atrial Fibrillation - w/ RVR - Medical Decision Making With IV fluid bolusing, his heart rate has come down to the 80s, still in atrial fibrillation. Given his leukocytosis, fever, hypoxia, I suspect the chest x-ray findings represent pneumonia rather than pulmonary edema or CHF. He is feeling well and wants some water, which he is okay with drinking. Antibiotics are started in order to cover healthcare associated pneumonia, Zosyn and vancomycin. His lactate is 2.1, qualifying him for severe sepsis. Just over 30 cc/kg IV fluid bolus is ordered, he has not received it all yet. CT head report is pending, it appears to be unremarkable for any acute abnormality. Will discuss with hospitalist for PCU admission. Procedures Critical care time (excluding procedures): 30-74 minutes - 35 min ED Disposition - Plan for ED Patient: Disposition: Acute Care Hospital [facility] Chief Complaint: Alt LOC Diagnosis: HCAP (healthcare-associated pneumonia), Acute kidney injury superimposed on chronic kidney disease, Atrial fibrillation with RVR, Severe sepsis, Delirium due to another medical condition, Hypoxemia Referrals: Vijay Mason MD [Primary Care Provider] - What to do if you have Problems For any increased pain, shortness of breath, bleeding, nausea or vomiting, chest pain, or any unexpected problems, contact your Primary Care Provider. Call [facility] ([phone]) or report to the closest Emergency Room. Call 911 if necessary. 09/29/18 0037 <Electronically signed by Baltazar Sultana MD> Date Baltazar Sultana MD Cosigner Signature (If Indicated): Date CC: Vijay Mason MD URINALYSIS, COMPLETE Collected: 09/28/2018 Status: F Source: MARK 11:[address] [facility] REPOSITORY Order Comment: Order Date: 09/28/18 How was Urine Obtained? TAXICAB DRIVER TO SPECIFY TYPE CODE TESTS RESULT OUT OF RANGE REFERENCE UNITS LAB L400.3000 Yellow COLOR Normal Yellow LAB L400.3050 Clear Normal CLARITY Cloudy LAB L400.3200 Normal mg/dl Normal GLUCOSE, UR Normal LAB L400.3300 Negative mg/dL High BILIRUBIN URINE 1 Result Comment: COLOR OF URINE MAY AFFECT DIPSTICK RESULTS. LAB L400.3400 Negative mg/dl Normal KETONE UR Negative LAB L400.3465 1.002-1.030 Normal SP.GR. DIPSTX 1.020 LAB L400.3550 5.0 - 8.0 pH Normal UR 5.0 LAB L400.3600 Negative mg/dl High PROT DIPSTX 500 LAB L400.3700 Normal mg/dl High UROBILI 1 LAB L400.3750 Negative Normal NITRITE UR Negative LAB L400.3780 Negative /ul High OCCULT 10 BLOOD-UR LAB L400.3800 Negative /ul High LEUK ESTERASE 25 LAB L400.4050 0-5 /hpf Normal WBC 0-5 SEEN LAB L400.4100 0-5 /hpf Normal RBC-UA 0-5 SEEN LAB L400.4150 0-5 /hpf Normal SQUAM EPI 0-5 SEEN LAB L400.4300 None Seen /hpf Normal BACTERIA 0 SEEN LAB L400.4350 <or=2+ /hpf Normal MUCUS, URINE 0 SEEN LAB L400.4400 0-5 /lpf Normal HYALINE CAST 0-5 SEEN LAB L400.4450 0-5 /lpf Normal FINE GRAN CAST 5-10 SEEN LAB L400.4500 0-5 /lpf /lpf Normal COARSE GRAN 25-50 SEEN LAB L400.4900 Normal AMORPHOUS 3+ Performed By: #### L400.0001 #### [facility] [address] [place], [address] CHEST 1 VIEW Observed: 09/28/2018 Status: F Source: CINEBAR (PORTABLE) 10:[address] [facility] Imaging Services [address] [place] [id number] Chest 1 View (Portable) MR#: [id number] Acct: [id number] Name: DOUG CAST Rep #: [id number] : 1935 M 83 From: Johnathan Wakefield MD PCP: Vijay Mason MD Status: REG ER Study: Chest 1 View (Portable) Date of Exam: 09/28/18 Exam# [id number] Ordering Dr: Baltazar Sultana MD STUDY: X-RAY CHEST REASON FOR EXAM: Male, 83 years old. Shortness of breath TECHNIQUE: One view COMPARISON: August 14, 2018 FINDINGS: There is some loss of volume of the right lung-presumably from a partial pneumonectomy, with areas of patchy consolidations identified in the right lung. The right hemidiaphragm is slightly elevated. There is a right-sided effusion is suspected. There are platelike atelectatic changes in the left base. The heart is enlarged.. Normal visualized thoracic spine. Normal visualized ribs, clavicles, and shoulders. There is no demonstrated abnormality of the visualized soft tissue structures of the upper abdomen. RAD/Chest 1 View (Portable) IMPRESSION: Cardiomegaly with central vascular congestive changes and areas of consolidation in the right lung representing either pneumonia or pulmonary edema. There is a small right-sided effusion is suspected Electronically Signed: Johnathan Wakefield MD at 23:53 EST Tel , Service support , CC: BALTAZAR SULTANA MD; Vijay Mason MD Safety Leader: Signed BRAIN/HEAD WITHOUT Observed: 09/28/2018 Status: F Source: MARK CONTRAST 10:[address] [facility] Imaging Services [address] [place] [address] Brain/Head without Contrast MR#: [id number] Acct: [id number] Name: DOUG CAST Rep #: [id number] : 1935 M 83 From: Johnathan Wakefield MD PCP: Vijay Mason MD Status: REG ER Study: Brain/Head without Contrast Date of Exam: 09/28/18 Exam# [id number] Ordering Dr: Baltazar Sultana MD STUDY: CT BRAIN WITHOUT CONTRAST REASON FOR EXAM: Male, 83 years old. Altered mental status RADIATION DOSAGE (If Supplied By Facility): CTDIvol = ( 20.80 ) mGy, DLP = ( 384.27 ) mGycm TECHNIQUE: Transaxial CT imaging of the brain was performed without administration of intravenous contrast material. Individualized dose optimization techniques were used for this CT. COMPARISON: August 16, 2018 FINDINGS: There continues to be an area of encephalomalacia involving the distribution of the left middle cerebral artery. There is currently no ipsilateral dilatation of the lateral ventricle on that side. There is no acute hemorrhage or acute infarction and no intra or extra- axial tumor mass. The calvarium is intact. There are no scalp swellings. The orbits, paranasal sinuses and mastoid air cells are normal. 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 No acute findings in the brain Electronically Signed: Johnathan Wakefield MD at 0:26 EST Tel , Service support , CC: BALTAZAR SULTANA MD; Vijay Mason MD Safety Leader: Signed Observed: 09/28/2018 Status: F Source: CINEBAR CULTURE, BLOOD (WB) 10:[address] [facility] REPOSITORY GRAM STAIN = GRAM POSITIVE COCCI CHAINS RESULTS CALLED TO Megan MOURA 09/29/18 1125 Alessandra [place]. REPORT READ BACK BY JORDAN. ANAEROBIC BOTTLE NO GROWTH 5 DAYS. ORGANISM 1: Streptococcus pneumoniae Amount Growth Growth Streptococcus pneumoniae: REACTION Benzylpenicillin NF <=0.06 S Cefotaxime (Other dx) $ <=0.12 S Cefotaxime (MENINGITIS) $ <=0.12 S (meningitis)Ceftriaxone $ <=0.12 S Ceftriaxone (other dx) $ <=0.12 S Clindamycin $$ <=0.25 S Erythromycin $ <=0.12 S Levofloxacin $ 0.5 S Moxifloxicin *NF 0.12 S Tetracycline NF <=0.25 S Trimethoprim/Sulfametho $ <=10 S Vancomycin $ 0.5 S (NF) indicates non-formulary drug at [facility]. Approval by Infectious Disease Specialist required before non-formulary drugs may be ordered and/or dispensed. * CLSI guidelines does not recommend testing of cephalosporins. This interpretation is deduced from Beta-lactam/penicillin results. Performed By: #### M200.1000, M100.636 #### [facility] [address] [place], [address] Observed: 09/28/2018 Status: C Source: [facility] GPC ID 10:38 [facility] GPC ID Copy of report sent to Infection Control Printer [id number] 09/29/18 1427 NSTANSLOS. Staphylococcus sp. Not Detected Enterococcus sp. Not Detected Streptococcus spp. Streptococcus pneumoniae Listeria spp Not Detected Mylene/vanB Not Detected mecA Not Detected NAAT METHOD Testing was performed using nucleic acid amplification ORGANISM 1: Streptococcus pneumoniae Performed By: #### M200.1000, M100.636 #### [facility] [address] [place], [place], [address] CBC W/DIFF, AUTOMATED Collected: 09/28/2018 Status: F Source: CINEBAR 10:[address] [facility] REPOSITORY TYPE CODE TESTS RESULT OUT OF RANGE REFERENCE UNITS LAB L100.1000 4.4-11.0 K/mm3 High WBC 16.1 LAB L100.1200 4.6-6.2 M/mm3 Low RBC 4.06 LAB L100.1300 13.0-16.5 g/dl Low HGB 11.9 LAB L100.1400 40-54 % Low HCT 37.5 LAB L100.1500 80-94 fL Normal MCV 92.4 LAB L100.1600 27.0-32.0 pg Normal MCH 29.3 LAB L100.1700 32-36 g/gl Low MCHC 31.7 LAB L100.1810 11.6-14.6 % Normal RDW CV 13.8 LAB L100.1820 35.1-43.9 fl High RDW SD 45.5 LAB L100.1900 150-450 K/mm3 Normal PLT 186 LAB L100.2000 6.2-12.0 fl Normal MPV 11.3 LAB L100.2100 47-70 % High NEUT% 93.1 LAB L100.2200 19-41 % Low LY% 2.2 LAB L100.2300 0-10 % Normal MONO% 4.2 LAB L100.2400 0-5 % Normal EO% 0.1 LAB L100.2500 0-1 % Normal BASO% 0.1 LAB L100.2550 0.0-0.9 % Normal IM GRAN % 0.300 Result Comment: IG% - Immature Granulocytes (promyelocytes, myelocytes and metamyelocytes) > 1% indicates that a LEFT SHIFT is Present. LAB L100.2620 2.0-7.7 X10 3/uL High Absolute Neut 15.0 LAB L100.2720 0.83-4.51 X10 3/ul Low Absolute Lymph 0.35 LAB L100.4500 Normal SMEAR COMMENT SCANNED Result Comment: LYMPHOPENIA NOTED Performed By: #### L100.0100 #### [facility] [address] [facility] [address] [place], [place], [address] BEDSIDE GLUCOSE Collected: 09/28/2018 Status: F Source: CINEBAR 10:[address] [facility] REPOSITORY TYPE CODE TESTS RESULT OUT OF REFERENCE UNITS RANGE LAB L501.080 70-110 mg/dL High BEDSIDE GLU 122 Result Comment: MANAGEMENT OF PATIENT CARE PER NURSING PROTOCOL Performed By: #### L501.080 #### [facility] Point of Care [address] [place] [address] BASIC METABOLIC Collected: 09/28/2018 Status: F Source: CINEBAR PROFILE (BMP) 10:[address] [facility] REPOSITORY TYPE CODE TESTS RESULT OUT OF RANGE REFERENCE UNITS LAB L501.0100 74-106 mg/dL High GLU 121 Result Comment: Fasting Glucose result from 100 to 125 mg/dL suggests IMPAIRED HOMEOSTASIS per A.D.A. criteria. Please note revised GLUCOSE reference range effective 2017. LAB L501.1000 7-18 mg/dL High BUN 50 LAB L501.1100 0.70-1.30 mg/dL High CREAT,SERUM 2.35 Result Comment: The validity of the calculated GFR AND GFRAA in patients over 70 years has not been determined. Clinical correlation is essential. LAB L501.1110 >60 mL/min Low EST GFR 28 Result Comment: Non- GFR Calc LAB L501.1115 >60 mL/min Low EST GFR - AA 34 Result Comment: GFR Calc LAB L501.1255 ml/min Normal Estimated CRCL 24.65 LAB L501.1300 10-20 RATIO High BUN/CRE 21.3 LAB L501.2200 8.5-10 mg/dL Normal .1 CA 8.7 LAB L501.5300 136-14 mmol/L Normal 5 NA 141 LAB L501.5600 3.5-5. mmol/L Normal 1 K 4.3 LAB L501.5900 98-107 mmol/L Normal CL 101 LAB L501.6100 21.0-3 mmol/L Normal 2.0 CO2 31.0 LAB L501.6200 5-15 Normal GAP 9 Performed By: #### L500.2500, L501.4010 #### [facility] [address] [place], [address] TROPONIN-I Collected: 09/28/2018 Status: F Source: CINEBAR 10:[address] [facility] REPOSITORY TYPE CODE TESTS RESULT OUT OF RANGE REFERENCE UNITS LAB L501.4010 <0.045 ng/mL Normal < 0.015 TROPONIN-I Result Comment: TROPONIN-I EXPECTED VALUES <0.045 Negative 0.045 - 0.590 Consistent with Cardiac Damage > OR = 0.600 Critical Value Not every elevated troponin is indicative of MN. These values should be used with clinical judgement in examining the patient's clinical picture for diagnosis. To establish a diagnosis of MN versus myocardial injury, there must be a demonstrated rise and/or fall in the troponin values, in addition to ischemic symptoms, EKG changes, new regional wall motion abnormality, and/or angiographical evidence. PLEASE NOTE: REFERENCE RANGES EDITED 18 Performed By: #### L500.2500, L501.4010 #### [facility] [address] [facility] [place], [address] LACTIC ACID Collected: 09/28/2018 Status: F Source: CINEBAR 10:33 [facility] REPOSITORY Order Comment: Yes/No query for Sepsis Lactate Rule Y TYPE CODE TESTS RESULT OUT OF REFERENCE UNITS RANGE LAB L503.6005 0.4-2.0 mmol/L High LACTIC ACID 2.1 Result Comment: Critical Result(s) Called at: 23:16:10 09/28/2018 by: Cecilia Chew Performed By: #### L503.6005 #### [facility] [address] [facility] [place], [address] MAGNESIUM Collected: 09/28/2018 Status: F Source: CINEBAR 10:[address] [facility] REPOSITORY TYPE CODE TESTS RESULT OUT OF RANGE REFERENCE UNITS LAB L501.5200 1.6-2.6 mg/dL Normal MG 1.7 Performed By: #### L501.5200, L501.9520 #### [facility] [address] [place], [address] THYROID STIM HORMONE Collected: 09/28/2018 Status: F Source: MARK (TSH) 10:[address] [facility] REPOSITORY TYPE CODE TESTS RESULT OUT OF RANGE REFERENCE UNITS LAB L501.9520 0.358-3.74 uIU/mL Normal TSH 1.47 Performed By: #### L501.5200, L501.9520 #### [facility] [address] [place], [address] Observed: 09/28/2018 Status: F Source: MARK CULTURE, BLOOD (WB) 10:[address] [facility] REPOSITORY BC GRAM STAIN = GRAM POSITIVE COCCI CHAINS RESULTS CALLED TO Chuy HERNANDEZ 09/29/18 Erendira [place]. REPORT READ BACK BY LUIS FELIPE. PLEASE REFER TO [id number] FOR SENSITIVITY RESULTS Copy of report sent to Infection Control Printer [id number] 09/30/[address] [facility]. AEROBIC BOTTLE NO GROWTH 5 DAYS. ORGANISM 1: Streptococcus pneumoniae Amount Growth Growth Performed By: #### M200.1000 #### [facility] [address] [facility] [place], [address] CBC W/DIFF, AUTOMATED Collected: 09/23/2018 Status: F Source: MARK 3:[address] [facility] REPOSITORY TYPE CODE TESTS RESULT OUT OF RANGE REFERENCE UNITS LAB L100.1000 4.4-11.0 K/mm3 Normal WBC 5.3 LAB L100.1200 4.6-6.2 M/mm3 Low RBC 3.69 LAB L100.1300 13.0-16.5 g/dl Low HGB 10.6 LAB L100.1400 40-54 % Low HCT 34.8 LAB L100.1500 80-94 fL High MCV 94.3 LAB L100.1600 27.0-32.0 pg Normal MCH 28.7 LAB L100.1700 32-36 g/gl Low MCHC 30.5 LAB L100.1810 11.6-14.6 % Normal RDW CV 14.4 LAB L100.1820 35.1-43.9 fl High RDW SD 49.2 LAB L100.1900 150-450 K/mm3 Normal PLT 187 LAB L100.2000 6.2-12.0 fl Normal MPV 11.0 LAB L100.2100 47-70 % High NEUT% 79.0 LAB L100.2200 19-41 % Low LY% 12.6 LAB L100.2300 0-10 % Normal MONO% 5.8 LAB L100.2400 0-5 % Normal EO% 2.4 LAB L100.2500 0-1 % Normal BASO% 0.0 LAB L100.2550 0.0-0.9 % Normal IM GRAN % 0.200 Result Comment: IG% - Immature Granulocytes (promyelocytes, myelocytes and metamyelocytes) > 1% indicates that a LEFT SHIFT is Present. LAB L100.2620 2.0-7.7 X10 3/uL Normal Absolute Neut 4.2 LAB L100.2720 0.83-4.51 X10 3/ul Low Absolute Lymph 0.67 Performed By: #### L100.0100 #### [facility] [address] [place], [address] COMPREHENSIVE METABOLIC Collected: 09/23/2018 Status: F Source: [facility] 3:[address] [facility] REPOSITORY TYPE CODE TESTS RESULT OUT OF RANGE REFERENCE UNITS LAB L501.0100 74-106 mg/dL High GLU 115 Result Comment: Fasting Glucose result from 100 to 125 mg/dL suggests IMPAIRED HOMEOSTASIS per A.D.A. criteria. Please note revised GLUCOSE reference range effective 2017. LAB L501.1000 7-18 mg/dL High BUN 29 LAB L501.1100 0.70-1.30 mg/dL High CREAT,SERUM 1.49 Result Comment: The validity of the calculated GFR AND GFRAA in patients over 70 years has not been determined. Clinical correlation is essential. LAB L501.1110 >60 mL/min Low EST GFR 48 Result Comment: Non- GFR Calc LAB L501.1115 >60 mL/min Low EST GFR - AA 58 Result Comment: GFR Calc LAB L501.1300 10-20 RATIO Normal BUN/CRE 19.5 LAB L501.1500 6.4-8.2 g/dL Low T PROT 6.1 LAB L501.1800 3.2-5.0 g/dL Low ALB 2.8 LAB L501.1950 2.2-4.2 g/dL Normal GLOB 3.3 LAB L501.2000 0.9-2.4 RATIO Low A/G 0.8 LAB L501.2200 8.5-10.1 mg/dL CA Normal 8.8 LAB L501.4100 15-37 U/L Normal AST 15 LAB L501.4305 45-117 U/L Normal ALK P 116 LAB L501.4405 16-61 U/L Low ALT 14 LAB L501.4600 0.20-1.00 mg/dL T Normal BILI 0.60 LAB L501.5300 136-145 mmol/L NA Normal 145 LAB L501.5600 3.5-5.1 mmol/L K Normal 3.6 LAB L501.5900 98-107 mmol/L CL Normal 105 LAB L501.6100 21.0-32.0 mmol/L Normal CO2 28.0 LAB L501.6200 5-15 Normal GAP 12 Performed By: #### L500.4050 #### [facility] [address] [place] [address]. [place], [place], [address] MARK ABS GR + CBC Collected: 09/18/2018 Status: F Source: [place] 11:14 AM [facility] REPOSITORY TYPE CODE TESTS RESULT OUT OF REFERENCE UNITS RANGE LAB WWBC 3.70-11.00 k/uL [place] WBC 6.75 LAB WRBC 4.20-6.00 m/uL Low Mark RBC 3.64 LAB WHGB 13.0-17.0 g/dL Low Mark Hemoglobin 10.6 LAB WHCT 39.0-51.0 % Low [place] Hematocrit 35.2 LAB WMCV 80.0-100.0 fL [place] MCV 96.7 LAB WMCH 26.0-34.0 pg [place] MCH 29.1 LAB WMCHC 30.5-36.0 g/dL Low Mark MCHC 30.1 LAB WRDW 11.5-15.0 % Mark RDW 14.9 LAB WPLT 150-400 k/uL [place] Platelet Cnt 152 LAB WMPV 9.0-12.7 fL Mark MPV 10.7 Result Comment: Test performed at: [facility], [address] [place] [address]. LAB ABGRAN 1.45-7.50 k/uL Absol Gran 5.18 Count HOME HEALTH PROGRESS Observed: 09/11/2018 Status: F Source: CINEBAR NOTE 9:[address] [facility] REPOSITORY [facility] Medical Records Department [address] [place] [address] Home Health Progress Note Vjvo-bu-Sqrv Encounter Encounter Date: 09/11/182113 MR#: [id number] Acct: [id number] Name: DOUG CAST Rep #: [id number] : 1935 83 From: Christiano Boss MD PCP: Vijay Mason MD Status: ADM IN Location: [place] [address] Home Health Note - Plan Overview of reason of hospitalization: The patient is a 83 year old Male with below past medical history hospitalized for metabolic encephalopathy, complicated by bilateral lower extremity cellulitis, rhabdomyolysis, acute on chronic kidney failure, sepsis, hyperkalemia, admitted to TCU with debility, here for rehabilitation, strengthening, prior to discharge home with grandson. Discharge home with grandson, and Home Health Services. 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) Sepsis affecting skin (Acute) Rhabdomyolysis (Acute) Acute kidney injury superimposed on chronic kidney disease (Acute) Hyperkalemia (Acute) Metabolic encephalopathy (Acute) Cellulitis of leg (Acute) Leg ulcer (Chronic) Lymphedema (Chronic) Pleural effusion, right (Acute) Hypertension (Chronic) Benign prostatic hyperplasia (Chronic) Chronic kidney disease (Chronic) Stroke (Chronic) Hyperlipidemia (Chronic) Cellulitis (Chronic) Lymphedema of lower extremity (Chronic) Nephrolithiasis (Chronic) Gout (Chronic) CKD (chronic kidney disease), stage III (Chronic) BPH (benign prostatic hyperplasia) (Chronic) Benign hypertension (Chronic) Wound infection (Acute) Anemia (Chronic) Chronic renal insufficiency, stage III (moderate) (Chronic) Nonstaphylococcal scalded skin syndrome (Chronic) Confusion (Acute) Sepsis (Acute) Arthritis (Chronic) - Requirements and Reasons Disciplines Needed/Ordered: Usp, Physical Therapy Reason for Disciplines: Disease Specific Monitoring/education, Medication Management/Knowledge Deficit, Observation Assessment, Gait Training, Stair Training, Fall Prevention, Home Safety/Equipment Instruction, Balance and/or Posture Training, Transfer Training Related To: Limited/Poor Endurance, Unsteady Gait/Balance, Fall Risk Patient is unable to leave the home: Without Aid of Supportive Devices (crutches, cane, wheelchair, walker), Without the assistance of another person - Additional Disciplines Additional Disciplines Needed/Ordered: Occupational Therapy 09/11/182114 <Electronically signed by Christiano Boss MD> Date Christiano Boss MD Cosigner Signature (if indicated): Date CC: Signed DISCHARGE SUMMARY Observed: 09/11/2018 Status: F Source: [place]INE[place] 9:[address] [facility] REPOSITORY [facility] Medical Records Department [address] [place] [address] Discharge Summary 09/11/182111 MR#: [id number] Acct: [id number] Name: CASEYTRISTANDOUG Brittani Rep #: [id number] : 1935 83 From: Christiano Boss MD PCP: Vijay Mason MD Status: ADM IN Location: [place] [address] Discharge Date and Diagnosis - Problem List Patient Problems: Active and Suspected Problems Metabolic encephalopathy (Acute) Cellulitis of leg (Acute) Pleural effusion, right (Acute) Date of Admission: 08/19/18 Date of Discharge: 09/17/18 - Primary Discharge Diagnosis Active and Suspected Problems Metabolic encephalopathy (Acute) Cellulitis of leg (Acute) Pleural effusion, right (Acute) - Secondary Discharge Diagnosis Chronic Problems Leg ulcer (Chronic) Lymphedema (Chronic) Hypertension (Chronic) Benign prostatic hyperplasia (Chronic) Chronic kidney disease (Chronic) Stroke (Chronic) Hyperlipidemia (Chronic) Cellulitis (Chronic) Lymphedema of lower extremity (Chronic) Nephrolithiasis (Chronic) Gout (Chronic) CKD (chronic kidney disease), stage III (Chronic) BPH (benign prostatic hyperplasia) (Chronic) Benign hypertension (Chronic) Anemia (Chronic) Chronic renal insufficiency, stage III (moderate) (Chronic) Nonstaphylococcal scalded skin syndrome (Chronic) Arthritis (Chronic) Hospital Course and Treatment Imaging Results: 08/19/18 15:06 Diet: Regular Diet Dietary Modifications:: Fluid Restricted Diet Is pt able to select menu?: Yes Diet Comments: LOW SODIUM, MEDS IN APPLESAUCE; 1500 FR. 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 Discharge home with grandson, and Home Health Services. Patient Problems: Active and Suspected Problems Metabolic encephalopathy (Acute) Cellulitis of leg (Acute) Pleural effusion, right (Acute) - Physical Exam Vital Signs Temp Pulse Resp BP Pulse Ox 97.9 F 66 18 178/61 H 97 09/11/18 15:44 09/11/18 15:44 09/11/18 15:44 09/11/18 15:44 09/11/18 15:44 Oxygen Delivery Method Room Air Weight: 81.902 kg Body Mass Index (BMI) 27.4 Intake and Output for Last 24 Hours Intake Total 1210 / 1210 830 / 830 580 / 580 Output Total 800 / 800 275 / 275 475 / 475 Balance 410 / 410 555 / 555 105 / 105 Laboratory Tests Past 24 Hrs WBC 2.6 L RBC 3.06 L Hgb 8.9 L Hct 30.3 L MCV 99.0 H MCH 29.1 MCHC 29.4 L RDW 16.5 H Discharge Diet: No Restrictions Discharge Activity: Return to Normal Activity, May Shower, Use Walker Weight Bearing Status: Weight bearing as tolerated Call your doctor if you observe: Fever of 101 or Higher, Inability to urinate, Inability to have a bowel movement, Shortness of breath, Chest pain, Uncontrolled pain Home Medications: Medications to take at Discharge Allopurinol 300 mg PO DAILY 10/10/16 Cholecalciferol (Vitamin D3) [Vitamin D3] 50,000 unit PO BURGOS 10/10/16 Labetalol [Trandate (Beta Mavis)] 200 mg PO BID 10/10/16 Pravastatin [Pravachol] 40 mg PO QHS 10/10/16 Aspirin E.C. [Ecotrin] 81 mg PO DAILY 08/14/18 Finasteride [Proscar] 5 mg PO DAILY 08/19/18 Acetaminophen [Tylenol] 1,000 mg PO Q8H PRN tablet 09/11/18 Epoetin Royer [Procrit] 10,000 units SC Q14D ml 09/11/18 Furosemide [Lasix] 40 mg PO DAILY #30 tablet 09/11/18 Iron Polysaccharide Complex [Ferrex 150] 150 mg PO DAILYCM #30 capsule 09/11/18 Menthol/Lanolin/Calamine/Znox [Calmoseptine Ointment] 1 applic TOPICAL tube 09/11/18 Nutritional Supplement [Morales - ORANGE FLAVOR] 1 packet PO BIDCM #60 packet 09/11/18 Following Prescrptions Were Given to Patient: Furosemide [Lasix] 40 mg PO DAILY #30 tablet Iron Polysaccharide Complex [Ferrex 150] 150 mg PO DAILYCM #30 capsule Nutritional Supplement [Morales - ORANGE FLAVOR] 1 packet PO BIDCM #60 packet Primary Care Physician: Vijay Mason MD [Primary Care Provider] - Please follow up with your Primary Care Physician in: 1 week. Please Follow Up With: Vijay Mason When: F/U AFTER DC FROM TCU Disposition: Home with Home Health Minutes spent on discharge:: 35 Patient Condition:: Stable Medical Necessity - Tobacco Use Smoking Status: Never smoker Tobacco Use: Non-smoker Meaningful Use Info Meaningful Use Diagnoses (Choose all that apply): None applicable 09/11/182113 <Electronically signed by Christiano Boss MD> Date Christiano Boss MD Cosigner Signature (if applicable): Date CC: Vijay Mason MD; Christiano Boss MD Signed DISCHARGE INSTRUCTION Observed: 09/11/2018 Status: F Source: [place] 9:[address] [facility] REPOSITORY [facility] Medical Records Department [address] [place] [address] Instructions for Home/Discharge Instructions 09/11/182110 MR#: [id number] Acct: [id number] Name: DOUG CAST Rep #: [id number] : 1935 83 From: Christiano Boss MD PCP: Vijay Mason MD Status: ADM IN - Discharge Diagnoses Current Active Problems: Current Active and Chronic Problems Metabolic encephalopathy (Acute) Cellulitis of leg (Acute) Leg ulcer (Chronic) Lymphedema (Chronic) Pleural effusion, right (Acute) Hypertension (Chronic) Benign prostatic hyperplasia (Chronic) Chronic kidney disease (Chronic) Stroke (Chronic) Hyperlipidemia (Chronic) You will use the following diet at home:: No restrictions, Regular Your food should be the consistency of: Regular Your liquids should be the consistency of: Regular/Thin Discharge Activity: Return to Normal Activity, May Shower, Use Walker Weight Bearing Status: Weight bearing as tolerated Call your doctor if you observe: Fever of 101 or Higher, Inability to urinate, Inability to have a bowel movement, Shortness of breath, Chest pain, Uncontrolled pain Allergies/Adverse Reactions: Allergies No Known Allergies Allergy (Verified 04/13/17 14:20) Medications to take at Discharge Allopurinol 300 mg PO DAILY 10/10/16 Cholecalciferol (Vitamin D3) [Vitamin D3] 50,000 unit PO BURGOS 10/10/16 Labetalol [Trandate (Beta Mavis)] 200 mg PO BID 10/10/16 Pravastatin [Pravachol] 40 mg PO QHS 10/10/16 Aspirin E.C. [Ecotrin] 81 mg PO DAILY 08/14/18 Finasteride [Proscar] 5 mg PO DAILY 08/19/18 Acetaminophen [Tylenol] 1,000 mg PO Q8H PRN tablet 09/11/18 Epoetin Royer [Procrit] 10,000 units SC Q14D ml 09/11/18 Furosemide [Lasix] 40 mg PO DAILY #30 tablet 09/11/18 Iron Polysaccharide Complex [Ferrex 150] 150 mg PO DAILYCM #30 capsule 09/11/18 Menthol/Lanolin/Calamine/Znox [Calmoseptine Ointment] 1 applic TOPICAL tube 09/11/18 Nutritional Supplement [Morales - ORANGE FLAVOR] 1 packet PO BIDCM #60 packet 09/11/18 The following prescriptions were given: Furosemide [Lasix] 40 mg PO DAILY #30 tablet Iron Polysaccharide Complex [Ferrex 150] 150 mg PO DAILYCM #30 capsule Nutritional Supplement [Morales - ORANGE FLAVOR] 1 packet PO BIDCM #60 packet Primary Care Physician: Vijay Mason MD [Primary Care Provider] - Please follow up with your Primary Care Physician in: 1 week. Test Results: Test results from this visit will be discussed in further detail at your follow-up appointment, if applicable. Please Follow Up With: Vijay Mason When: F/U AFTER DC FROM TCU Proposed Discharge Date: 09/17/18 09/11/182111 <Electronically signed by Christiano Boss MD> Date Christiano Boss MD CC: Vijay Mason MD CBC W/DIFF, AUTOMATED Collected: 09/11/2018 Status: F Source: MARK 5:[address] [facility] REPOSITORY TYPE CODE TESTS RESULT OUT OF RANGE REFERENCE UNITS LAB L100.1000 4.4-11.0 K/mm3 Low WBC 2.6 LAB L100.1200 4.6-6.2 M/mm3 Low RBC 3.06 LAB L100.1300 13.0-16.5 g/dl Low HGB 8.9 LAB L100.1400 40-54 % Low HCT 30.3 LAB L100.1500 80-94 fL High MCV 99.0 LAB L100.1600 27.0-32.0 pg Normal MCH 29.1 LAB L100.1700 32-36 g/gl Low MCHC 29.4 LAB L100.1810 11.6-14.6 % High RDW CV 16.5 LAB L100.1820 35.1-43.9 fl High RDW SD 57.7 LAB L100.1900 150-450 K/mm3 Low PLT 138 LAB L100.2000 6.2-12.0 fl Normal MPV 10.5 LAB L100.2100 47-70 % Normal NEUT% 52.9 LAB L100.2200 19-41 % Normal LY% 26.4 LAB L100.2300 0-10 % High MONO% 13.0 LAB L100.2400 0-5 % High EO% 6.9 LAB L100.2500 0-1 % Normal BASO% 0.4 LAB L100.2550 0.0-0.9 % Normal IM GRAN % 0.400 Result Comment: IG% - Immature Granulocytes (promyelocytes, myelocytes and metamyelocytes) > 1% indicates that a LEFT SHIFT is Present. LAB L100.2620 2.0-7.7 X10 3/uL Low Absolute Neut 1.4 LAB L100.2720 0.83-4.51 X10 3/ul Low Absolute Lymph 0.69 Performed By: #### L100.0100 #### [facility] [address] [employer] [facility] [employer] [facility] [place], [place], [id number] BASIC METABOLIC Collected: 09/11/2018 Status: F Source: [place] PROFILE (BMP) 5:[address] [facility] REPOSITORY TYPE CODE TESTS RESULT OUT OF RANGE REFERENCE UNITS LAB L501.0100 74-106 mg/dL Normal GLU 88 Result Comment: Please note revised GLUCOSE reference range effective 2017. LAB L501.1000 7-18 mg/dL High BUN 50 LAB L501.1100 0.70-1.30 mg/dL High CREAT,SERUM 1.36 Result Comment: The validity of the calculated GFR AND GFRAA in patients over 70 years has not been determined. Clinical correlation is essential. LAB L501.1110 >60 mL/min Low EST GFR 53 Result Comment: Non- GFR Calc LAB L501.1115 >60 mL/min Normal EST GFR - AA 65 Result Comment: GFR Calc LAB L501.1255 ml/min Normal Estimated CRCL 42.60 LAB L501.1300 10-20 RATIO High BUN/CRE 36.8 LAB L501.2200 8.5-10 mg/dL Normal .1 CA 8.5 LAB L501.5300 136-14 mmol/L High 5 NA 148 LAB L501.5600 3.5-5. mmol/L Normal 1 K 3.8 LAB L501.5900 98-107 mmol/L High CL 108 LAB L501.6100 21.0-3 mmol/L High 2.0 CO2 33.0 LAB L501.6200 5-15 Normal GAP 7 Performed By: #### L500.2500 #### [facility] [address] [place], [address] BASIC METABOLIC Collected: 09/03/2018 Status: F Source: [place] PROFILE ([facility]) 5:[address] [facility] REPOSITORY TYPE CODE TESTS RESULT OUT OF RANGE REFERENCE UNITS LAB L501.0100 74-106 mg/dL Normal GLU 97 Result Comment: Please note revised GLUCOSE reference range effective 2017. LAB L501.1000 7-18 mg/dL High BUN 47 LAB L501.1100 0.70-1.30 mg/dL High CREAT,SERUM 1.43 Result Comment: The validity of the calculated GFR AND GFRAA in patients over 70 years has not been determined. Clinical correlation is essential. LAB L501.1110 >60 mL/min Low EST GFR 50 Result Comment: Non- GFR Calc LAB L501.1115 >60 mL/min Normal EST GFR - AA 61 Result Comment: GFR Calc LAB L501.1255 ml/min Normal Estimated CRCL 40.51 LAB L501.1300 10-20 RATIO High BUN/CRE 32.9 LAB L501.2200 8.5-10 mg/dL Low .1 CA 8.0 LAB L501.5300 136-14 mmol/L High 5 NA 147 LAB L501.5600 3.5-5. mmol/L Low 1 K 3.4 LAB L501.5900 98-107 mmol/L High CL 111 LAB L501.6100 21.0-3 mmol/L Normal 2.0 CO2 31.0 LAB L501.6200 5-15 Normal GAP 5 Performed By: #### L500.2500 #### [facility] [address] [place], [address] CBC W/DIFF, AUTOMATED Collected: 09/03/2018 Status: F Source: MARK 5:[address] [facility] REPOSITORY TYPE CODE TESTS RESULT OUT OF RANGE REFERENCE UNITS LAB L100.1000 4.4-11.0 K/mm3 Low WBC 2.7 LAB L100.1200 4.6-6.2 M/mm3 Low RBC 2.83 LAB L100.1300 13.0-16.5 g/dl Low HGB 8.6 LAB L100.1400 40-54 % Low HCT 28.1 LAB L100.1500 80-94 fL High MCV 99.3 LAB L100.1600 27.0-32.0 pg Normal MCH 30.4 LAB L100.1700 32-36 g/gl Low MCHC 30.6 LAB L100.1810 11.6-14.6 % High RDW CV 18.2 LAB L100.1820 35.1-43.9 fl High RDW SD 62.6 LAB L100.1900 150-450 K/mm3 Low PLT 139 LAB L100.2000 6.2-12.0 fl Normal MPV 10.6 LAB L100.2100 47-70 % Normal NEUT% 63.4 LAB L100.2200 19-41 % Normal LY% 22.4 LAB L100.2300 0-10 % Normal MONO% 7.5 LAB L100.2400 0-5 % High EO% 6.7 LAB L100.2500 0-1 % Normal BASO% 0.0 LAB L100.2550 0.0-0.9 % Normal IM GRAN % 0.000 Result Comment: IG% - Immature Granulocytes (promyelocytes, myelocytes and metamyelocytes) > 1% indicates that a LEFT SHIFT is Present. LAB L100.2620 2.0-7.7 X10 3/uL Low Absolute Neut 1.7 LAB L100.2720 0.83-4.51 X10 3/ul Low Absolute Lymph 0.60 LAB L100.4500 Normal SMEAR COMMENT SEE COMMENT Result Comment: LYMPHOPENIA NOTED LAB L100.5500 ADEQ Normal PLT EST SLT DEC LAB L100.7300 Normal ANISO RARE LAB L100.7800 Normal MACROCYTE RARE Performed By: #### L100.0100 #### [facility] [address] [place], [place], [address] BASIC METABOLIC Collected: 08/30/2018 Status: F Source: [place] PROFILE ([facility]) 5:[address] [facility] REPOSITORY TYPE CODE TESTS RESULT OUT OF RANGE REFERENCE UNITS LAB L501.0100 74-106 mg/dL Normal GLU 94 Result Comment: Please note revised GLUCOSE reference range effective 2017. LAB L501.1000 7-18 mg/dL High BUN 59 LAB L501.1100 0.70-1.30 mg/dL High CREAT,SERUM 1.41 Result Comment: The validity of the calculated GFR AND GFRAA in patients over 70 years has not been determined. Clinical correlation is essential. LAB L501.1110 >60 mL/min Low EST GFR 51 Result Comment: Non- GFR Calc LAB L501.1115 >60 mL/min Normal EST GFR - AA 62 Result Comment: GFR Calc LAB L501.1255 ml/min Normal Estimated CRCL 41.09 LAB L501.1300 10-20 RATIO High BUN/CRE 41.8 LAB L501.2200 8.5-10 mg/dL Low .1 CA 7.9 LAB L501.5300 136-14 mmol/L High 5 NA 149 LAB L501.5600 3.5-5. mmol/L Normal 1 K 3.9 LAB L501.5900 98-107 mmol/L High CL 114 LAB L501.6100 21.0-3 mmol/L Normal 2.0 CO2 29.0 LAB L501.6200 5-15 Normal GAP 6 Performed By: #### L500.2500 #### [facility] [address] [place], [place], [address] BASIC METABOLIC Collected: 08/27/2018 Status: F Source: [place] PROFILE ([facility]) 6:[address] [facility] REPOSITORY TYPE CODE TESTS RESULT OUT OF RANGE REFERENCE UNITS LAB L501.0100 74-106 mg/dL Normal GLU 93 Result Comment: Please note revised GLUCOSE reference range effective 2017. LAB L501.1000 7-18 mg/dL High BUN 51 LAB L501.1100 0.70-1.30 mg/dL High CREAT,SERUM 1.43 Result Comment: The validity of the calculated GFR AND GFRAA in patients over 70 years has not been determined. Clinical correlation is essential. LAB L501.1110 >60 mL/min Low EST GFR 50 Result Comment: Non- GFR Calc LAB L501.1115 >60 mL/min Normal EST GFR - AA 61 Result Comment: GFR Calc LAB L501.1255 ml/min Normal Estimated CRCL 40.51 LAB L501.1300 10-20 RATIO High BUN/CRE 35.7 LAB L501.2200 8.5-10 mg/dL Low .1 CA 8.4 LAB L501.5300 136-14 mmol/L High 5 NA 149 LAB L501.5600 3.5-5. mmol/L Normal 1 K 4.3 Result Comment: Slight Hemolysis, Result may be falsely increased. LAB L501.5900 98-107 mmol/L High CL 117 LAB L501.6100 21.0-32.0 mmol/L Normal CO2 24.0 LAB L501.6200 5-15 Normal 8 GAP Performed By: #### L500.2500 #### [facility] [address] [place], [address] CBC W/DIFF, AUTOMATED Collected: 08/27/2018 Status: F Source: [place] 6:[address] [facility] REPOSITORY TYPE CODE TESTS RESULT OUT OF RANGE REFERENCE UNITS LAB L100.1000 4.4-11.0 K/mm3 Low WBC 3.8 LAB L100.1200 4.6-6.2 M/mm3 Low RBC 3.03 LAB L100.1300 13.0-16.5 g/dl Low HGB 8.7 LAB L100.1400 40-54 % Low HCT 29.4 LAB L100.1500 80-94 fL High MCV 97.0 LAB L100.1600 27.0-32.0 pg Normal MCH 28.7 LAB L100.1700 32-36 g/gl Low MCHC 29.6 LAB L100.1810 11.6-14.6 % High RDW CV 17.2 LAB L100.1820 35.1-43.9 fl High RDW SD 56.0 LAB L100.1900 150-450 K/mm3 Low PLT 142 LAB L100.2000 6.2-12.0 fl Normal MPV 11.2 LAB L100.2100 47-70 % High NEUT% 72.1 LAB L100.2200 19-41 % Low LY% 17.6 LAB L100.2300 0-10 % Normal MONO% 5.3 LAB L100.2400 0-5 % Normal EO% 4.7 LAB L100.2500 0-1 % Normal BASO% 0.3 LAB L100.2550 0.0-0.9 % Normal IM GRAN % 0.000 Result Comment: IG% - Immature Granulocytes (promyelocytes, myelocytes and metamyelocytes) > 1% indicates that a LEFT SHIFT is Present. LAB L100.2620 2.0-7.7 X10 3/uL Normal Absolute Neut 2.7 LAB L100.2720 0.83-4.51 X10 3/ul Low Absolute Lymph 0.67 Performed By: #### L100.0100 #### [facility] [address] [place], [address] BASIC METABOLIC Collected: 08/20/2018 Status: F Source: [place] PROFILE ([facility]) 5:[address] [facility] REPOSITORY TYPE CODE TESTS RESULT OUT OF RANGE REFERENCE UNITS LAB L501.0100 74-106 mg/dL Normal GLU 100 Result Comment: Fasting Glucose result from 100 to 125 mg/dL suggests IMPAIRED HOMEOSTASIS per A.D.A. criteria. Please note revised GLUCOSE reference range effective 2017. LAB L501.1000 7-18 mg/dL High BUN 49 LAB L501.1100 0.70-1.30 mg/dL High CREAT,SERUM 2.09 Result Comment: The validity of the calculated GFR AND GFRAA in patients over 70 years has not been determined. Clinical correlation is essential. LAB L501.1110 >60 mL/min Low EST GFR 33 Result Comment: Non- GFR Calc LAB L501.1115 >60 mL/min Low EST GFR - AA 39 Result Comment: GFR Calc LAB L501.1255 ml/min Normal Estimated CRCL 27.72 LAB L501.1300 10-20 RATIO High BUN/CRE 23.4 LAB L501.2200 8.5-10 mg/dL Low .1 CA 7.9 LAB L501.5300 136-14 mmol/L High 5 NA 148 LAB L501.5600 3.5-5. mmol/L Normal 1 K 4.1 LAB L501.5900 98-107 mmol/L High CL 117 LAB L501.6100 21.0-3 mmol/L Normal 2.0 CO2 26.0 LAB L501.6200 5-15 Normal GAP 5 Performed By: #### L500.2500 #### [facility] [place], [address] CBC W/DIFF, AUTOMATED Collected: 08/20/2018 Status: F Source: [place] 5:[address] [facility] REPOSITORY TYPE CODE TESTS RESULT OUT OF RANGE REFERENCE UNITS LAB L100.1000 4.4-11.0 K/mm3 Normal WBC 4.9 LAB L100.1200 4.6-6.2 M/mm3 Low RBC 2.99 LAB L100.1300 13.0-16.5 g/dl Low HGB 8.5 LAB L100.1400 40-54 % Low HCT 28.3 LAB L100.1500 80-94 fL High MCV 94.6 LAB L100.1600 27.0-32.0 pg Normal MCH 28.4 LAB L100.1700 32-36 g/gl Low MCHC 30.0 LAB L100.1810 11.6-14.6 % Normal RDW CV 14.5 LAB L100.1820 35.1-43.9 fl High RDW SD 47.4 LAB L100.1900 150-450 K/mm3 Low PLT 128 LAB L100.2000 6.2-12.0 fl Normal MPV 10.6 LAB L100.2100 47-70 % High NEUT% 78.7 LAB L100.2200 19-41 % Low LY% 11.5 LAB L100.2300 0-10 % Normal MONO% 4.7 LAB L100.2400 0-5 % Normal EO% 4.5 LAB L100.2500 0-1 % Normal BASO% 0.2 LAB L100.2550 0.0-0.9 % Normal IM GRAN % 0.400 Result Comment: IG% - Immature Granulocytes (promyelocytes, myelocytes and metamyelocytes) > 1% indicates that a LEFT SHIFT is Present. LAB L100.2620 2.0-7.7 X10 3/uL Normal Absolute Neut 3.8 LAB L100.2720 0.83-4.51 X10 3/ul Low Absolute Lymph 0.56 LAB L100.4500 Normal SMEAR COMMENT SCANNED Performed By: #### L100.0100 #### [facility] [address] [place], [address] HISTORY AND PHYSICAL Observed: 08/19/2018 Status: F Source: [place] EXAM 8:[address] [facility] REPOSITORY [facility] Medical Records Department [address] [place] [address] History and Physical 08/19/181957 MR#: [id number] Acct: [id number] Name: DOUG CAST Rep #: [id number] : 1935 83 From: Christiano Boss MD PCP: Vijay Mason MD Status: ADM IN Location: [place] [address] Problem List (1) Metabolic encephalopathy Status: Acute (2) Cellulitis of leg Status: Acute (3) Leg ulcer Status: Chronic (4) Lymphedema Status: Chronic (5) Pleural effusion, right Status: Acute (6) Hypertension Status: Chronic (7) Benign prostatic hyperplasia Status: Chronic (8) Chronic kidney disease Status: Chronic (9) Stroke Status: Chronic (10) Hyperlipidemia Status: Chronic (11) Rhabdomyolysis Status: Acute (12) Hyperkalemia Status: Acute (13) Gout Status: Chronic (14) Sepsis Status: Acute History of Present Illness Date of Admission: 08/19/18 Chief Complaint: Here for rehabilitation, strengthening, prior to discharge home with grandson. The patient is a 83 year old Male with below past medical history presented to [facility] Emergency Department with confusion. 08/14/2018 EKG sinus rhythm with premature atrial contractions, right bundle branch block. 08/14/2018 CT cervical spine multi level disc disease without fracture, subluxation. 08/14/2018 X-ray lumbar spine degenerative changes, straightening lordosis. 08/14/2018 Chest X-ray enlarging right pleural effusion and atelectasis. 08/14/2018 CT brain shows remove left MCA infarct, right parietal hematoma, chronic involutional changes of brain. Lives alone. Found on floor, unable to get up. Generalized weakness, chills. WBC 14.3, Lactic acid 2.1. K 6.3(Hemolyzed), BUN 57, Cr 2.92. UA consistent with urinary tract infection, Troponin 0.230. CPK 2125. Normal Saline, D50, insulin, Bicarb, Zosyn, Vancomycin given. Leg, urine cultures sent. 08/14/2018 Admit to Hospital. Vancomycin, Zosyn IV for bilateral lower extremity cellulitis. IV fluids for rhabdomyolysis. Consult wound nurse for leg ulcers. 08/15/2018 Renal ultrasound showed right kidney stone, medical renal disease. 08/15/2018 Dr. Nelson consulted, added Hydralazine for blood pressure control. 08/15/2018 Dr. Drake recommended repeating CT scan of brain. 08/16/2018 Leg culture growing Pseudomonas. Continue Zosyn, Vancomycin. CK trending down. 08/17/2018 Leg cultures growing Pseudomonas, Bacteroides. Antibiotics switched to Cipro, Flagyl. IV fluids stopped due to edema. 08/19/2018 Admit to TCU with debility, here for rehabilitation, strengthening, prior to discharge home with grandson. Past Medical History Past Medical History (Chronic Problems): Chronic Problems Leg ulcer (Chronic) Lymphedema (Chronic) Hypertension (Chronic) Benign prostatic hyperplasia (Chronic) Chronic kidney disease (Chronic) Stroke (Chronic) Hyperlipidemia (Chronic) Cellulitis (Chronic) Lymphedema of lower extremity (Chronic) Nephrolithiasis (Chronic) Gout (Chronic) CKD (chronic kidney disease), stage III (Chronic) BPH (benign prostatic hyperplasia) (Chronic) Benign hypertension (Chronic) Anemia (Chronic) Chronic renal insufficiency, stage III (moderate) (Chronic) Nonstaphylococcal scalded skin syndrome (Chronic) Arthritis (Chronic) Allergies No Known Allergies Allergy (Verified 04/13/17 14:20) Home Medications: Ambulatory Orders Medication Instructions Recorded Allopurinol 300 mg PO DAILY 10/10/16 Cholecalciferol (Vitamin D3) 50,000 unit PO BURGOS 10/10/16 Surgical History: - - Bilateral carotid endarectomy Psychiatric History: No pertinent psych hx Lives: Alone Smoking Status: Never smoker Tobacco Use: Non-smoker Alcohol: None Drugs: None - *Family History Paternal Family History: Family History (Last Reviewed 08/15/18 @ 11:35 by Bernardino Drake MD) Mother Hyperthyroidism Father Diabetes Aortic aneurysm rupture History Items: Diabetes Maternal Family History: Family History (Last Reviewed 08/15/18 @ 11:35 by Bernardino Drake MD) Mother Hyperthyroidism Father Diabetes Aortic aneurysm rupture History Items: Heart Disease Review of Systems Constitutional: Denies: Chills, Fever, Weight Change HEENT: Denies: Head Aches, Sinus Congestion, Sinus Drainage Cardiovascular: Denies: Chest Pain, Palpitations Respiratory: Denies: Cough, Shortness of breath at rest, Sputum production Gastrointestinal: Denies: Abdominal Pain, Nausea, Vomiting Genitourinary: Denies: Dysuria Musculoskeletal: Denies: Joint Pain, Joint Tenderness Skin: Denies: Rash, Wounds Neurological: Denies: Numbness, Tingling, Focal weakness Psychiatric: Denies: Anxiety, Depression, Homicidal Ideations, Suicidal Ideations Hematologic/ Lymphatic: Denies: Easy Bruising, Easy Bleeding VTE Information - Inpt Only VTE Present on Admission: No VTE Mechan Device Prophylaxis: Knee High JEAN PAUL Hose VTE Pharm Prophylaxis ordered?: Yes Patient Problems: Active and Suspected Problems Metabolic encephalopathy (Acute) Cellulitis of leg (Acute) Pleural effusion, right (Acute) - Physical Exam General: Alert, Oriented x3, Cooperative HEENT: Atraumatic, PERRLA, EOMI, Normocephalic Neck: Supple, No JVD, Negative Carotid Bruits Lungs: Clear to auscultation, Normal air movement Cardiovascular: Regular rate, No murmurs Abdomen: Bowel Sounds Present, Soft, Non Tender Extremities: Capillary Refill Less than 3 Seconds, - - All 4 extremities wrapped with Kerlix, PATITO wraps. 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) Sepsis affecting skin (Acute) Rhabdomyolysis (Acute) Acute kidney injury superimposed on chronic kidney disease (Acute) Hyperkalemia (Acute) Metabolic encephalopathy (Acute) Cellulitis of leg (Acute) Pleural effusion, right (Acute) Non-pressure chronic ulcer of other part of right foot limited to breakdown of skin (Resolved) Wound infection (Acute) Confusion (Acute) Sepsis (Acute) 83 year old male with below past medical history hospitalized for metabolic encephalopathy, complicated by bilateral lower extremity cellulitis, rhabdomyolysis, acute on chronic kidney failure, sepsis, hyperkalemia, admitted to TCU with debility, here for rehabilitation, strengthening, prior to discharge home with grandson. * Debility - PT/OT. * Dysphagia - ST. * Pain - Tylenol 1000MG Q8H PRN mild pain. * Bowel - Miralax 17GM daily, Dulcolax 10MG PO daily PRN. * Pneumonia vaccination - Administer Prevnar 13. * DVT prophylaxis - Lovenox 30MG sc daily. * Leg ulcers - dressings per wound team, Morales 1 packet twice daily. * Gout - Allopurinol 300MG daily. * Stroke - Aspirin 81MG daily. * Cellulitis of legs - Cipro 500MG daily thru 08/24/2018, Flagyl 500MG TID thru 08/23/2018. * Vitamin D deficiency - D2 50,000 units per week. * BPH - Finasteride 5MG daily. * Hypertension - Labetalol 200MG BID. * Skin irritation - Calmoseptine BID. * Hyperlipidemia - Pravastatin 40MG QHS, consider high intensity statin with history of left MCA infarct. 08/19/182020 <Electronically signed by Christiano Boss MD> Date Christiano Boss MD Cosigner Signature: Date (if applicable) CC: Vijay Mason MD; Christiano Boss MD Signed DISCHARGE SUMMARY Observed: 08/19/2018 Status: F Source: [place] 2:[address] [facility] REPOSITORY [facility] Medical Records Department [address] [place] [address] Discharge Summary 08/19/18 1311 MR#: [id number] Acct: [id number] Name: DOUG CAST Rep #: [id number] : 1935 83 From: Jose Guadalupe Barton MD PCP: Vijay Mason MD Status: ADM IN Y Location: [place] [address] Discharge Date and Diagnosis - Problem List Patient Problems: Active and Suspected Problems Sepsis affecting skin (Acute) Rhabdomyolysis (Acute) Acute kidney injury superimposed on chronic kidney disease (Acute) Hyperkalemia (Acute) Date of Admission: 08/14/18 Date of Discharge: 08/19/18 - Primary Discharge Diagnosis Active and Suspected Problems Sepsis affecting skin (Acute) Rhabdomyolysis (Acute) Acute kidney injury superimposed on chronic kidney disease (Acute) Hyperkalemia (Acute) - Secondary Discharge Diagnosis Chronic Problems Cellulitis (Chronic) Lymphedema of lower extremity (Chronic) Nephrolithiasis (Chronic) Gout (Chronic) CKD (chronic kidney disease), stage III (Chronic) BPH (benign prostatic hyperplasia) (Chronic) Benign hypertension (Chronic) Anemia (Chronic) Chronic renal insufficiency, stage III (moderate) (Chronic) Nonstaphylococcal scalded skin syndrome (Chronic) Arthritis (Chronic) Hospital Course and Treatment Imaging Results: CT Brain: IMPRESSION: 1. Remote left MCA distribution infarct. 2. Chronic involutional changes without acute intracranial or calvarial abnormality. 3. Soft tissue density overlying the right parietal region suggesting subcutaneous hematoma. CT C-spine: IMPRESSION: Degenerative changes of the cervical spine without acute fracture or subluxation. 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 Hospital Course: 1. BL LE Cellulitis/JOSEF on CKD/Rhabdo/metabolic encephalopathy 2/2 uremia/Chronic lymphedema - He was found on the floor at home by his son who brought him in. He was initially confused and that was felt to be d/t a metabolic encephalopathy from his elevated creatinine and rhabdo. He was started on IVF and hsi renal function progressed from JOSEF to ATN. He has continued to make urine and his creatinine was imprved to 2.35 on day of discahrge down from 3.52. Initially with his cellulitis was treated with zosyn and vanc, cx grew a pseudomonal species that was longoria-sensitive and report was called that he had bacteroides as well. He was transitioned to PO cipro and flagyl and will need to complete 4 more days of both. Also with his IVF, he was becoming hypernatremic and he was decreased to 1/2NS and then the day prior to DC he became edematous and so fluids were discontinued completely. 2. His other diagnoses were evaluated and his home medications were continued where appropriate Patient Problems: Active and Suspected Problems Sepsis affecting skin (Acute) Rhabdomyolysis (Acute) Acute kidney injury superimposed on chronic kidney disease (Acute) Hyperkalemia (Acute) - Physical Exam Vital Signs Temp Pulse Resp BP Pulse Ox 98.0 F 58 L 18 140/55 H 98 08/19/18 13:00 08/19/18 13:00 08/19/18 13:00 08/19/18 13:00 08/19/18 13:00 Oxygen Delivery Method Room Air Weight: 164 lb 0.383 oz Body Mass Index (BMI) 24.2 Intake and Output for Last 24 Hours Intake Total 3473 / 3473 2166 / 2166 360 / 360 Output Total 675 / 675 150 / 150 250 / 250 Balance 2798 / 2798 2015 110 / 110 Microbiology Past 72 Hours 08/14/18 20:05 Gram Stain - Final Wound - Left Foot Wound Culture - Final Laboratory Tests Past 24 Hrs Sodium 148 H Potassium 3.7 Chloride 117 H Carbon Dioxide 24.0 Anion Gap 7 Home Medications: Medications to take at Discharge Allopurinol 300 mg PO DAILY 10/10/16 Cholecalciferol (Vitamin D3) [Vitamin D3] 50,000 unit PO BURGOS 10/10/16 Labetalol [Trandate (Beta Mavis)] 200 mg PO BID 10/10/16 Pravastatin [Pravachol] 40 mg PO QHS 10/10/16 Acetaminophen [Tylenol Tablet] 650 mg PO Q6H PRN PRN tablet 04/15/17 Finasteride [Proscar] 5 mg PO DAILY #30 tablet 04/15/17 Aspirin E.C. [Ecotrin] 81 mg PO DAILY 08/14/18 Ciprofloxacin [Cipro] 500 mg PO DAILY tablet 08/19/18 Metronidazole [Flagyl] 500 mg PO TID tablet 08/19/18 Primary Care Physician: Vijay Mason MD [Primary Care Provider] - Please follow up with your Primary Care Physician in: In 3- 5 days after discharge Disposition: [facility] facility Minutes spent on discharge:: 35 Patient Condition:: Good Medical Necessity - Tobacco Use Smoking Status: Never smoker Meaningful Use Info Meaningful Use Diagnoses (Choose all that apply): None applicable Code Visit Inpatient E AND M: 52833 Disch Hosp 08/19/18 1425 <Electronically signed by Jose Guadalupe Barton MD> Date Jose Guadalupe Barton MD Cosigner Signature (if applicable): Date CC: Jose Guadalupe Barton MD; Vijay Mason MD Signed TRANSFER TO EXTENDED Observed: 08/19/2018 Status: F Source: [facility] 1:[address] [facility] REPOSITORY [facility] Medical Records Department [address] [place] [address] Transfer to [facility] Care MR#: [id number] Acct: [id number] Name: DOUG CAST Rep #: [id number] : 1935 83 From: Jose Guadalupe Barton MD PCP: Vijay Mason MD Status: ADM IN VASAS,DOUG P (Patient) (Health Ins. Claim No.) (Day of Discharge to Facility) Certification of patient admission REQUIRED AT TIME OF ADMISSION. I CERTIFY THAT POST-HOSPITAL ECF SERVICES ARE REQUIRED TO BE GIVEN ON AN IN-PATIENT BASIS BECAUSE OF THE ABOVE NAMED PATIENT'S NEED FOR ALF CARE ON A CONTINUING BASIS FOR THE CONDITION(S) FOR WHICH HE/SHE WAS RECEIVING IN-PATIENT HOSPITAL SERVICES PRIOR TO HIS/HER TRANSFER TO THE ECF. 08/19/18 1303 <Electronically signed by Jose Guadalupe Barton MD> Date Jose Guadalupe Barton MD - Diet 08/15/18 10:16 Diet: Regular Diet Food consistency:: Regular Liquid Consistency:: Regular/Thin Is pt able to select menu?: No Diet Comments: supervision by staff / family; meds in [facility] - Wound(s) BILATERAL FEET Wound Type: Stasis Ulcer B lower legs Wound Type: combination of ulcered areas and superficial weeping areas Dressing Change: Adaptic and Aquacel AG right lateral ankle Wound Type: superficial open area Dressing Change: AntiMicrobial (Aquacel AG, etc) right medial ankle Wound Type: superficial open area Dressing Change: AntiMicrobial (Aquacel AG, etc) left lateral foot Wound Type: superficial ulcered area Dressing Change: AntiMicrobial (Aquacel AG, etc) left medial ankle Wound Type: cluster of superficial open areas Dressing Change: AntiMicrobial (Aquacel AG, etc) left posterior lower leg Wound Type: cluster of stasis ulcers Dressing Change: AntiMicrobial (Aquacel AG, etc) L arm Wound Type: Abrasion - Allergies/Procedures Done in Hospital Allergies/Adverse Reactions: Allergies No Known Allergies Allergy (Verified 04/13/17 14:20) - Type of Care/Length of Stay Estimated LOS: Convalescent Care Less Than 30 days Type of Care Needed: Skilled Rehab Potential: Good Prognosis: Good - Additional Orders/Day of Discharge Day of Discharge: 08/19/18 - Dietary and Speech Recommendations Dietitian Recommendations/Changes: Rec low sodium diet- consistency per [employer]. Continue Ensure Enlive w/ medpass as tolerated. Rec 1 packet Morales BID to assist w/ wound healing. Current weight as able. - Follow Up Care Primary Care Physician: Vijay Mason MD [Primary Care Provider] - Please follow up with your Primary Care Physician in: In 3- 5 days after discharge 08/19/18 1309 <Electronically signed by Jose Guadalupe Barton MD> Date Jose Guadalupe Barton MD CC: Zakia Meyer MD; Bernardino Drake MD; Vijay Mason MD Signed 12 LEAD ELECTROCARDIOGRAM Observed: 08/19/2018 Status: F Source: [place] 12:[address] [facility] REPOSITORY [facility] Cardiovascular Services [address] [place] [address] 12 Lead EKG 08/14/18 1900 MR#: [id number] Acct: [id number] Name: DOUG CAST Rep #: [id number] : 1935 83 From: Rah Barba MD Attending Dr: Jose Guadalupe Barton MD Status: ADM IN Ordering Dr: Ata Heath MD Date: 08/14/18 Location: [facility] Sex: M C Admitted: 08/14/18 Test Reason : FALL Blood Pressure : / mmHG Vent. Rate : 068 BPM Atrial Rate : 068 BPM P-R Int : 186 ms QRS Dur : 130 ms QT Int : 514 ms P-R-T Axes : 022 268 020 degrees QTc Int : 546 ms Sinus rhythm with Premature atrial complexes Right bundle branch block Abnormal ECG Confirmed by BRET MACK, RAH ([id number]), state editor LINO HOYT ([id number]) on 08/19/2018 12:32:25 PM Referred By: SL Confirmed By:RAH BARBA MD 08/19/18 1232 Date Rah Barba MD CC: Jose Guadalupe Barton MD; Ata Heath MD; Vijay Mason MD Signed BASIC METABOLIC Collected: 08/19/2018 Status: F Source: [place] PROFILE ([facility]) 5:[address] [facility] REPOSITORY TYPE CODE TESTS RESULT OUT OF RANGE REFERENCE UNITS LAB L501.0100 74-106 mg/dL High GLU 114 Result Comment: Fasting Glucose result from 100 to 125 mg/dL suggests IMPAIRED HOMEOSTASIS per A.D.A. criteria. Please note revised GLUCOSE reference range effective 2017. LAB L501.1000 7-18 mg/dL High BUN 50 LAB L501.1100 0.70-1.30 mg/dL High CREAT,SERUM 2.35 Result Comment: The validity of the calculated GFR AND GFRAA in patients over 70 years has not been determined. Clinical correlation is essential. LAB L501.1110 >60 mL/min Low EST GFR 28 Result Comment: Non- GFR Calc LAB L501.1115 >60 mL/min Low EST GFR - AA 34 Result Comment: GFR Calc LAB L501.1255 ml/min Normal Estimated CRCL 24.65 LAB L501.1300 10-20 RATIO High BUN/CRE 21.3 LAB L501.2200 8.5-10 mg/dL Low .1 CA 8.0 LAB L501.5300 136-14 mmol/L High 5 NA 148 LAB L501.5600 3.5-5. mmol/L Normal 1 K 3.7 LAB L501.5900 98-107 mmol/L High CL 117 LAB L501.6100 21.0-3 mmol/L Normal 2.0 CO2 24.0 LAB L501.6200 5-15 Normal GAP 7 Performed By: #### L500.2500 #### [facility] [address] [place], [address] BASIC METABOLIC Collected: 08/18/2018 Status: F Source: [facility] PROFILE ([facility]) 6:[address] [facility] REPOSITORY TYPE CODE TESTS RESULT OUT OF RANGE REFERENCE UNITS LAB L501.0100 74-106 mg/dL Normal GLU 93 Result Comment: Please note revised GLUCOSE reference range effective 2017. LAB L501.1000 7-18 mg/dL High BUN 52 LAB L501.1100 0.70-1.30 mg/dL High CREAT,SERUM 2.54 Result Comment: The validity of the calculated GFR AND GFRAA in patients over 70 years has not been determined. Clinical correlation is essential. LAB L501.1110 >60 mL/min Low EST GFR 26 Result Comment: Non- GFR Calc LAB L501.1115 >60 mL/min Low EST GFR - AA 32 Result Comment: GFR Calc LAB L501.1255 ml/min Normal Estimated CRCL 22.81 LAB L501.1300 10-20 RATIO High BUN/CRE 20.5 LAB L501.2200 8.5-10 mg/dL Low .1 CA 7.6 LAB L501.5300 136-14 mmol/L High 5 NA 146 LAB L501.5600 3.5-5. mmol/L Normal 1 K 3.9 LAB L501.5900 98-107 mmol/L High CL 116 LAB L501.6100 21.0-3 mmol/L Normal 2.0 CO2 24.0 LAB L501.6200 5-15 Normal GAP 6 Performed By: #### L500.2500 #### [facility] [address] [place], [address] BASIC METABOLIC Collected: 08/17/2018 Status: F Source: [facility] PROFILE ([facility]) 6:[address] [facility] REPOSITORY TYPE CODE TESTS RESULT OUT OF RANGE REFERENCE UNITS LAB L501.0100 74-106 mg/dL Normal GLU 90 Result Comment: Please note revised GLUCOSE reference range effective 2017. LAB L501.1000 7-18 mg/dL High BUN 63 LAB L501.1100 0.70-1.30 mg/dL High CREAT,SERUM 2.87 Result Comment: The validity of the calculated GFR AND GFRAA in patients over 70 years has not been determined. Clinical correlation is essential. LAB L501.1110 >60 mL/min Low EST GFR 23 Result Comment: Non- GFR Calc LAB L501.1115 >60 mL/min Low EST GFR - AA 27 Result Comment: GFR Calc LAB L501.1255 ml/min Normal Estimated CRCL 20.19 LAB L501.1300 10-20 RATIO High BUN/CRE 21.3 LAB L501.2200 8.5-10 mg/dL Low .1 CA 7.6 LAB L501.5300 136-14 mmol/L High 5 NA 149 LAB L501.5600 3.5-5. mmol/L Normal 1 K 3.8 LAB L501.5900 98-107 mmol/L High CL 117 LAB L501.6100 21.0-3 mmol/L Normal 2.0 CO2 24.0 LAB L501.6200 5-15 Normal GAP 8 Performed By: #### L500.2500 #### [facility] [address] [place], [address] CREATININE, URINE Collected: 08/16/2018 Status: F Source: MARK (RANDOM) 8:[address] [facility] REPOSITORY Order Comment: Has pt arrived? Y TYPE CODE TESTS RESULT OUT OF RANGE REFERENCE UNITS LAB L501.1200 NO RANGE EST. mg/dL Normal UR CREAT 84.20 Performed By: #### L501.1200 #### [facility] [address] [place], [address] URINE SODIUM Collected: 08/16/2018 Status: F Source: CINEBAR 8:[address] [facility] REPOSITORY Order Comment: Has pt arrived? Y TYPE CODE TESTS RESULT OUT OF RANGE REFERENCE UNITS LAB L501.5500 Not Establ. mmol/L Normal UR NA 53 Performed By: #### L501.5500 #### [facility] [address] [place], [address] CONSULTATION Observed: 08/16/2018 Status: F Source: CINEBAR 10:[address] [facility]POSITORY [facility] Medical Records Department [address] [place] [address] Consultation 08/15/18 1132 MR#: [id number] Acct: [id number] Name: DOUG CAST Rep #: [id number] : 1935 83 From: Bernardino Drake MD PCP: Vijay Mason MD Status: ADM IN Y Location: [place] [address]-1 Reason for Consult Date of Consultation: 08/15/18 Reason for Consultation: confusion History of Present Illness: The patient is a 83 year old M right handed male who was found on the floor, couldnt get up, and was brought to er. family states he was on the floor all day. lives alone, but family member planning to move in. normally independent, drives. 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 initially his cva apparently caused right sided weakness Past Medical History Past Medical History (Chronic Problems): Chronic Problems Cellulitis (Chronic) Lymphedema of lower extremity (Chronic) Nephrolithiasis (Chronic) Gout (Chronic) CKD (chronic kidney disease), stage III (Chronic) BPH (benign prostatic hyperplasia) (Chronic) Benign hypertension (Chronic) Anemia (Chronic) Chronic renal insufficiency, stage III (moderate) (Chronic) Nonstaphylococcal scalded skin syndrome (Chronic) Arthritis (Chronic) Allergies No Known Allergies Allergy (Verified 04/13/17 14:20) Home Medications: Ambulatory Orders Medication Instructions Recorded Allopurinol 300 mg PO DAILY 10/10/16 Surgical History: - - Bilateral carotid endarectomy Lives: Alone - Per family grandson will go and live with patient after discharge Smoking Status: Never smoker Alcohol: None - *Family History Paternal Family History: Family History (Last Reviewed 08/15/18 @ 11:35 by Bernardino Drake MD) Mother Hyperthyroidism Father Diabetes Aortic aneurysm rupture History Items: Diabetes Maternal Family History: Family History (Last Reviewed 08/15/18 @ 11:35 by Bernardino Drake MD) Mother Hyperthyroidism Father Diabetes Aortic aneurysm rupture History Items: Heart Disease Review of Systems Constitutional: Denies: Chills, Fever, Weight Change HEENT: Denies: Head Aches, Sinus Congestion, Sinus Drainage Cardiovascular: Denies: Chest Pain, Palpitations Respiratory: Denies: Cough, Shortness of breath at rest, Sputum production Gastrointestinal: Denies: Abdominal Pain, Nausea, Vomiting Genitourinary: Denies: Dysuria Musculoskeletal: Denies: Joint Pain, Joint Tenderness Skin: Denies: Rash, Wounds Neurological: Denies: Numbness, Tingling, Focal weakness Psychiatric: Denies: Anxiety, Depression, Homicidal Ideations, Suicidal Ideations Hematologic/ Lymphatic: Denies: Easy Bruising, Easy Bleeding Patient Problems: Active and Suspected Problems Sepsis affecting skin (Acute) Rhabdomyolysis (Acute) Acute kidney injury superimposed on chronic kidney disease (Acute) Hyperkalemia (Acute) - Physical Exam General: Alert, Oriented x3, Cooperative, No apparent distress Neurological: Cranial nerves II-XII grossly intact, Deep Tendon Reflexes 2+/4 and Symmetrical, - - mild right hemiparesis residual Vital Signs Temp Pulse Resp BP Pulse Ox 36.7 C 76 18 172/77 H 99 08/15/18 06:15 08/15/18 11:18 08/15/18 06:15 08/15/18 06:15 08/15/18 06:35 Oxygen Delivery Method Room Air Weight: 74.4 kg Body Mass Index (BMI) 24.2 Intake and Output for Last 24 Hours Intake Total 1871 / 1871 Output Total 50 / 50 Balance 1821 / 1821 Laboratory Tests Past 24 Hrs WBC RBC Hgb Hct MCV MCH MCHC RDW RDW Differential WBC RBC Hgb Hct WBC RBC Hgb Hct MCV MCH ct reviewed, shows old left mca infarct Assessment/Plan All Active Problems 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 no mri due to claustrophobia. appears baseline/improved now per family repeat ct therapies continue medical management. 08/16/18 1056 <Electronically signed by Bernardino Drake MD> Date Bernardino Drake MD Cosigner Signature (if applicable): Date CC: Zakia Meyer MD; Bernardino Drake MD; Vijay Mason MD Signed CBC W/DIFF, AUTOMATED Collected: 08/16/2018 Status: F Source: MARK 7:[address] [facility] REPOSITORY TYPE CODE TESTS RESULT OUT OF RANGE REFERENCE UNITS LAB L100.1000 4.4-11.0 K/mm3 Normal WBC 6.4 LAB L100.1200 4.6-6.2 M/mm3 Low RBC 3.39 LAB L100.1300 13.0-16.5 g/dl Low HGB 9.5 LAB L100.1400 40-54 % Low HCT 31.7 LAB L100.1500 80-94 fL Normal MCV 93.5 LAB L100.1600 27.0-32.0 pg Normal MCH 28.0 LAB L100.1700 32-36 g/gl Low MCHC 30.0 LAB L100.1810 11.6-14.6 % High RDW CV 14.8 LAB L100.1820 35.1-43.9 fl High RDW SD 48.2 LAB L100.1900 150-450 K/mm3 Normal PLT 166 LAB L100.2000 6.2-12.0 fl Normal MPV 10.8 LAB L100.2100 47-70 % High NEUT% 85.3 LAB L100.2200 19-41 % Low LY% 8.2 LAB L100.2300 0-10 % Normal MONO% 5.3 LAB L100.2400 0-5 % Normal EO% 0.8 LAB L100.2500 0-1 % Normal BASO% 0.2 LAB L100.2550 0.0-0.9 % Normal IM GRAN % 0.200 Result Comment: IG% - Immature Granulocytes (promyelocytes, myelocytes and metamyelocytes) > 1% indicates that a LEFT SHIFT is Present. LAB L100.2620 2.0-7.7 X10 3/uL Normal Absolute Neut 5.5 LAB L100.2720 0.83-4.51 X10 3/ul Low Absolute Lymph 0.52 LAB L100.4500 Normal SMEAR COMMENT COMMENT Result Comment: SLIDE SCANNED - LYMPHOPENIA NOTED. Performed By: #### L100.0100 #### [facility] [address] [place], [address] COMPREHENSIVE METABOLIC Collected: 08/16/2018 Status: F Source: [facility] 7:[address] [facility] REPOSITORY TYPE CODE TESTS RESULT OUT OF RANGE REFERENCE UNITS LAB L501.0100 74-106 mg/dL High GLU 122 Result Comment: Fasting Glucose result from 100 to 125 mg/dL suggests IMPAIRED HOMEOSTASIS per A.D.A. criteria. Please note revised GLUCOSE reference range effective 2017. LAB L501.1000 7-18 mg/dL High BUN 66 LAB L501.1100 0.70-1.30 mg/dL High CREAT,SERUM 3.52 Result Comment: The validity of the calculated GFR AND GFRAA in patients over 70 years has not been determined. Clinical correlation is essential. LAB L501.1110 >60 mL/min Low EST GFR 18 Result Comment: Non- GFR Calc LAB L501.1115 >60 mL/min Low EST GFR - AA 22 Result Comment: GFR Calc LAB L501.1255 ml/min Normal Estimated CRCL 16.46 LAB L501.1300 10-20 RATIO Normal BUN/CRE 18.8 LAB L501.1500 6.4-8. g/dL Low 2 T PROT 4.3 LAB L501.1800 3.2-5. g/dL Low 0 ALB 1.8 LAB L501.1950 2.2-4. g/dL Normal 2 GLOB 2.5 LAB L501.2000 0.9-2. RATIO Low 4 A/G 0.7 LAB L501.2200 8.5-10 mg/dL Low .1 CA 7.2 LAB L501.4100 15-37 U/L High AST 55 LAB L501.4305 45-117 U/L Normal ALK P 69 LAB L501.4405 16-61 U/L Normal ALT 27 LAB L501.4600 0.20-1 mg/dL Normal .00 T BILI 0.50 LAB L501.5300 136-14 mmol/L High 5 NA 149 LAB L501.5600 3.5-5. mmol/L Normal 1 K 4.2 LAB L501.5900 98-107 mmol/L High CL 117 LAB L501.6100 21.0-3 mmol/L Normal 2.0 CO2 25.0 LAB L501.6200 5-15 Normal GAP 7 Performed By: #### L500.4050, L501.3620 #### [facility] [address] [place], [address] CPK TOTAL, CREATINE Collected: 08/16/2018 Status: F Source: MARK KINASE 7:[address] [facility] REPOSITORY TYPE CODE TESTS RESULT OUT OF RANGE REFERENCE UNITS LAB L501.3620 39-308 U/L High CPK TOTAL 484 Performed By: #### L500.4050, L501.3620 #### [facility] [address] [place], [address] BRAIN/HEAD WITHOUT Observed: 08/16/2018 Status: F Source: MARK CONTRAST 12:00 AM [facility] REPOSITORY [facility] Imaging Services [address] [address] Brain/Head without Contrast MR#: [id number] Acct: [id number] Name: DOUG CAST Rep #: [id number] : 1935 M 83 From: Boris Valderrama MD PCP: Vijay Mason MD Status: ADM IN Study: Brain/Head without Contrast Date of Exam: 08/16/18 Exam# [id number] Ordering Dr: Pablito Vela MD STUDY: CT BRAIN WITHOUT CONTRAST REASON FOR EXAM: Male, 83 years old. Fall. Old stroke. Head trauma. RADIATION DOSAGE (If Supplied By Facility): CTDIvol = ( 44.99 ) mGy, DLP = ( 1625.96 ) mGycm TECHNIQUE: Transaxial CT imaging of the brain was performed without administration of intravenous contrast material. # of Images: 246 Individualized dose optimization techniques were used for this CT. COMPARISON: None. FINDINGS: There is a soft tissue mass over the right temporal region above the right ear. Soft tissues are otherwise unremarkable. Normal calvarium. There is mild cerebral atrophy with widening of the extra- axial spaces and ventricular dilatation. There is increasing encephalomalacia in the left parietal lobe suggesting remote left MCA distribution infarct. Normal basal ganglia and thalami. Normal brainstem. Normal cerebellum. There is no intracranial hemorrhage. There are no findings of an acute ischemic infarction. Normal visualized paranasal sinuses. CT/Brain/Head without Contrast IMPRESSION: 1. Remote left MCA distribution infarct. 2. Chronic involutional changes without acute intracranial or calvarial abnormality. 3. Soft tissue density overlying the right temporal region suggesting subcutaneous hematoma. Electronically Signed: Boris Valderrama MD at 9:33 EDT Tel , Service support , CC: Pablito Vela MD; Vijay Mason MD Safety Leader: Signed Observed: 08/15/2018 Status: F Source: [place] CULTURE, URINE 2:[address] [facility] REPOSITORY Urine Culture Culture exhibits no growth. Performed By: #### M100.0650 #### [facility] [address] [facility] [place], [address] MRSA WOUND DNA BY Collected: 08/15/2018 Status: F Source: [place] PCR 10:[address] [facility] REPOSITORY Order Comment: Order Date: 08/15/18 Specimen Source? Leg wound left TYPE CODE TESTS RESULT OUT OF RANGE REFERENCE UNITS LAB L8200.1100 Negative Normal MRSA Negative RESULT LAB L8200.1150 Negative High SA RESULT POSITIVE Performed By: #### L8200.1075 #### [facility] [address] [facility] [place], [address] CONSULTATION Observed: 08/15/2018 Status: F Source: [place] 10:[address] [facility] REPOSIT[facility] Medical Records Department [address] [place] [address] Consultation 08/15/18 1018 MR#: [id number] Acct: [id number] Name: DOUG CAST Rep #: [id number] : 1935 83 From: Zakia Meyer MD PCP: Vijay Mason MD Status: ADM IN Y Location: [place] [id number] ADDENDUM by Zakia Meyer MD on 08/15/18 at 1036 Code Visit I add hydralazine 50 TID instead of increasing labetalol dose 08/15/18 1036 <Electronically signed by Zakia Meyer MD> Date Zakia Meyer MD cc: Zakia Meyer MD; Bernardino Drake MD; Vijay Mason MD * Signed Problem List (1) Acute kidney injury superimposed on chronic kidney disease Status: Acute (2) Hyperkalemia Status: Acute Consultation - Renal PCP/ Referring MD: Requesting physician: [] Primary care physician: Vijay Mason MD - History of Present Illness History of Present Illness: The patient is a 83 year old M with medical history of gout, BPH, hyperlipidemia, vitamin D deficiency and CVA back in 1999. Patient was brought to [facility] emergency room yesterday because he was found by his family members on the floor. In the previous days, patient was in his usual status. In the emergency department, he was found to have acute kidney injury and hyperkalemia along with a sepsis due to cellulitis/UTI and rhabdomyolysis Renal team was consulted today for hyperkalemia management. Patient has chronic kidney disease at the baseline with baseline creatinine is around 1.4-1.5 mg deciliter. Last creatinine available was from February 2018 which shows creatinine 1.48 mg deciliter. Patient presented with a creatinine 2.9. Lloyd catheter was placed. Patient was given 2 L of normal saline yesterday and one liter of normal saline today . Kidney function did not improve , creatinine today 3.18 mg/dL . Patient seems oliguric . Patient started on antibiotic Zosyn/vancomycin . Urine culture and blood cultures are pending . Chest x-ray shows right lower pleural effusion moderate-sized with atelectasis . 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 along with right subcutaneous parietal hematoma Review of systems : 12 systems review is negative except for weakness , disorientation .[] - Allergies Allergies: Allergies No Known Allergies Allergy (Verified 04/13/17 14:20) - Current Medications Current Medications: Current Medications Acetaminophen (Tylenol) 650 mg PO Q6H PRN PRN PRN Reason: FEVER Allopurinol (Zyloprim) 300 mg PO DAILYCM [facility] Last Admin: 08/15/18 09:35 Dose: Not Given Aspirin (Ecotrin) 81 mg PO DAILYCM [facility] Last Admin: 08/15/18 09:35 Dose: Not Given Ergocalciferol (Vitamin D) 50,000 unit PO [facility] Finasteride (Proscar) 5 mg PO DAILY [facility] Last Admin: 08/15/18 09:36 Dose: Not Given Heparin Sodium (Porcine) (Heparin Na) 5,000 unit SC Q12 [facility] Last Admin: 08/15/18 09:49 Dose: 5,000 unit Hydralazine HCl (Apresoline Iv) 5 mg IV Q4H PRN PRN PRN Reason: SBP > 160 Piperacillin Sod/Tazobactam Sod (Zosyn) 3.375 gm in 50 mls @ 12.5 mls/hr IV Q12 [facility] Last Admin: 08/15/18 09:48 Dose: 12.5 mls/hr Vancomycin IV Pharmacy to Dose (1,000 ea/ Sodium Chloride) 500 mls @ 250 mls/hr IV X1 PRN; Protocol Sodium Chloride () 1,000 mls @ 100 mls/hr IV .Q10H [facility] Stop: 08/15/18 10:29 Last Admin: 08/15/18 01:17 Dose: 100 mls/hr Sodium Chloride () 1,000 mls @ 999 mls/hr IV .Q1H1M ONE Stop: 08/15/18 10:37 Last Admin: 08/15/18 09:52 Dose: 999 mls/hr Sodium Chloride () 1,000 mls @ 125 mls/hr IV .Q8H [facility] Last Admin: 08/15/18 09:53 Dose: 125 mls/hr Labetalol HCl (Trandate) 200 mg PO BID [facility] Last Admin: 08/15/18 09:36 Dose: Not Given Magnesium Hydroxide (Milk Of Magnesia) 30 ml PO DAILY PRN PRN Reason: Constipation Nutritional Formula (Lactose Free) (Ensure Enlive) 120 ml PO 4X/DAY [facility] Last Admin: 08/15/18 09:36 Dose: Not Given Ondansetron HCl (Zofran) 4 mg IV Q8H PRN PRN PRN Reason: NAUSEA Pravastatin Sodium (Pravachol) 40 mg PO QHS [facility] Sodium Chloride () 5 - 30 ml IV UD PRN PRN Reason: SALINE FLUSH Last Admin: 08/15/18 01:17 Dose: 5 ml - Past Medical History Past Medical History (Chronic Problems): Chronic Problems Cellulitis (Chronic) Lymphedema of lower extremity (Chronic) Nephrolithiasis (Chronic) Gout (Chronic) CKD (chronic kidney disease), stage III (Chronic) BPH (benign prostatic hyperplasia) (Chronic) Benign hypertension (Chronic) Anemia (Chronic) Chronic renal insufficiency, stage III (moderate) (Chronic) Nonstaphylococcal scalded skin syndrome (Chronic) Arthritis (Chronic) - Past Surgical History Surgical History: - - Bilateral carotid endarectomy - Social History Smoking Status: Never smoker Alcohol: None - Family History Paternal Family History: Family History (Last Updated 08/15/18 @ 00:00 by Chase Zavala MD) Mother Hyperthyroidism Father Diabetes Aortic aneurysm rupture History Items: Diabetes Maternal Family History: Family History (Last Updated 08/15/18 @ 00:00 by Chase Zavala MD) Mother Hyperthyroidism Father Diabetes Aortic aneurysm rupture History Items: Heart Disease Patient Problems: Active and Suspected Problems Sepsis affecting skin (Acute) Rhabdomyolysis (Acute) Acute kidney injury superimposed on chronic kidney disease (Acute) Hyperkalemia (Acute) - Physical Exam General: Alert, Cooperative, Well developed, Disoriented Oral: Dry Mucosa Neck: Supple, No JVD Lungs: No rhonchi, No wheeze, No rales, - - Decreased breath sounds over right lower lobe Cardiovascular: Regular rate, Regular Rhythm, Normal S1, Normal S2 Abdomen: Bowel Sounds Present, Soft, Non Tender Extremities: No clubbing, No cyanosis, - - Both legs are wrapped up Skin: No rashes Musculoskeletal: No Muscle Wasting Lymphatic: No Cervical, Supraclavicular, or Inguinal Adenopathy Psych/Mental Status: Appropriate Vital Signs Temp Pulse Resp BP Pulse Ox 98.1 F 70 18 172/77 H 99 08/15/18 06:15 08/15/18 07:11 08/15/18 06:15 08/15/18 06:15 08/15/18 06:35 Oxygen Delivery Method Room Air Weight: 74.4 kg Body Mass Index (BMI) 24.2 Intake and Output for Last 24 Hours Output Total 50 / 50 Balance -50 / -50 Laboratory Tests Past 24 Hrs WBC RBC Hgb Hct MCV WBC 14.3 H RBC 4.74 Hgb 13.2 Hct 43.4 MCV 91.6 MCH 27.8 MCHC 30.4 L RDW 15.0 H RDW Differential 49.6 H WBC RBC Hgb Hct MCV MCH MCHC RDW RDW Differential Plt Count MPV Immature Gran % (Auto) Assessment/Plan All Active Problems 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 Baseline creatinine seems around 1.4-1.8 mg deciliter. UA showed 100 protein, occult blood 50, nitrite positive, RBCs 5-10 white cell 0-5. FeNa is 0.4% Acute kidney injury related to prerenal from dehydration due to poor oral intake . Postrenal is less likely since the patient has a Lloyd catheter in place I agree with IV fluid for volume expansion. I doubt another etiology of acute kidney injury for now. Please keep mean arterial pressure more than 65. Avoid PATITO inhibitor/ARB for now. No indication for renal replacement therapy. Check kidney function in the morning. 2-hyperkalemia: Related to acute kidney injury. Treated medically with D50/insulin. Potassium today 5.1. Check potassium level in a.m.. 3-sepsis due to cellulitis/UTI. On Zosyn and vancomycin. They are appropriately dosed for the current kidney function. Please monitor vancomycin trough level to keep it between 15 and 20. 4-hypertension: Blood pressure is elevated. I will increase labetalol to 400 twice a day. Might add hydralazine scheduled doses if blood pressure remains uncontrolled. Please avoid PATITO inhibitor/ARB and diuretics for now. 5-BPH: Continue finasteride and Flomax. Continuos urine drainage via Lloyd catheter You for the consult. Kidney team will continue to follow. I will discussed the plan of care with Dr. Vela. Zakia Meyer MD [phone] 08/15/18 1032 <Electronically signed by Zakia Meyer MD> Date Zakia Meyer MD Cosigner Signature (if applicable): Date CC: Zakia Meyer MD; Bernardino Drake MD; Vijay Mason MD Signed KIDNEY AND BLADDER Observed: 08/15/2018 Status: F Source: MARK 10:[address] [facility] REPOSITORY [facility] Imaging Services [address] [address] Kidney and Bladder MR#: [id number] Acct: [id number] Name: DOUG CAST Rep #: [id number] : 1935 M 83 From: Dionte Castillo PCP: Vijay Mason MD Status: ADM IN Study: Kidney and Bladder Date of Exam: 08/15/18 Exam# [id number] Ordering Dr: Zakia Meyer MD STUDY: RENAL ULTRASOUND - COMPLETE REASON FOR EXAM: Male, 83 years old. Acute renal failure. TECHNIQUE: Ultrasound evaluation of the kidneys was performed with real-time and static astorga-scale imaging. # of Images: 52 COMPARISON: CT of the abdomen and pelvis, April 07, 2017. Report of a renal ultrasound, performed September 26, 2011, which is not available for direct comparison. FINDINGS: RIGHT KIDNEY: Normal location of the right kidney, which is normal in size. The right kidney measures 8.8 cm. There is increased renal cortical echogenicity. The renal cortex measures 1.1 cm. There is no right renal mass or cyst. A small lower pole exophytic cyst seen on the CT is not clearly identified. There are renal calculi in the lower pole with acoustic shadowing. The largest measures 9 mm in greatest dimension. There is no right hydronephrosis. DISTAL RIGHT URETER: There is non-visualization of the distal right ureter. There is no demonstrated right ureterovesical junction calculus. Dictated LEFT KIDNEY: Normal location of the left kidney, which is normal in size. The left kidney measures 8.5 cm. There is increased renal cortical echogenicity. There is mild cortical thinning. The renal cortex measures 0.9 cm. There is no left renal mass or cyst. There are no left renal calculi. There is no left hydronephrosis. DISTAL LEFT URETER: There is non-visualization of the distal left ureter. There is no demonstrated left ureterovesical junction calculus. There is no demonstrated left ureteral jet. BLADDER: The urinary bladder could not be evaluated as it is collapsed about a Lloyd catheter. US/Kidney and Bladder IMPRESSION: 1. Right lower pole renal calculi. This correlate with the calcifications seen on the CT scan. A small exophytic cyst seen in the lower pole of the right kidney is not identified however this may be partially obscured by bowel gas. 2. Bilateral increased renal cortical echogenicity with cortical thinning on the left. The findings suggest medical renal disease. 3. Inability to evaluate the urinary bladder due to nondistention. Electronically Signed: Dionte Castillo DO at 16:08 EDT Tel [phone], Service support , CC: Zakia Meyer MD; Vijay Mason MD Safety Leader: Signed AMMONIA Collected: 08/15/2018 Status: F Source: [place] 9:[address] [facility] REPOSITORY TYPE CODE TESTS RESULT OUT OF RANGE REFERENCE UNITS LAB L503.5510 11-32 umol/L Normal AMMONIA 18.0 Performed By: #### L503.5510 #### [facility] [address] [place], [address] BASIC METABOLIC Collected: 08/15/2018 Status: F Source: [place] PROFILE (BMP) 5:[address] [facility] REPOSITORY TYPE CODE TESTS RESULT OUT OF RANGE REFERENCE UNITS LAB L501.0100 74-106 mg/dL High GLU 122 Result Comment: Fasting Glucose result from 100 to 125 mg/dL suggests IMPAIRED HOMEOSTASIS per A.D.A. criteria. Please note revised GLUCOSE reference range effective 2017. LAB L501.1000 7-18 mg/dL High BUN 64 LAB L501.1100 0.70-1.30 mg/dL High CREAT,SERUM 3.18 Result Comment: The validity of the calculated GFR AND GFRAA in patients over 70 years has not been determined. Clinical correlation is essential. LAB L501.1110 >60 mL/min Low EST GFR 20 Result Comment: Non- GFR Calc LAB L501.1115 >60 mL/min Low EST GFR - AA 24 Result Comment: GFR Calc LAB L501.1255 ml/min Normal Estimated CRCL 18.22 LAB L501.1300 10-20 RATIO High BUN/CRE 20.1 LAB L501.2200 8.5-10 mg/dL Low .1 CA 7.9 LAB L501.5300 136-14 mmol/L Normal 5 NA 144 LAB L501.5600 3.5-5. mmol/L Normal 1 K 5.1 LAB L501.5900 98-107 mmol/L High CL 113 LAB L501.6100 21.0-3 mmol/L Normal 2.0 CO2 22.0 LAB L501.6200 5-15 Normal GAP 9 Performed By: #### L500.2500, L501.3620 #### [facility] [address] [place], [place], [address] CPK TOTAL, CREATINE Collected: 08/15/2018 Status: F Source: MARK KINASE 5:[address] [facility] REPOSITORY TYPE CODE TESTS RESULT OUT OF RANGE REFERENCE UNITS LAB L501.3620 39-308 U/L High CPK TOTAL 890 Performed By: #### L500.2500, L501.3620 #### [facility] [address] [place], [address] LACTIC ACID Collected: 08/15/2018 Status: F Source: MARK 1:[address] [facility] REPOSITORY TYPE CODE TESTS RESULT OUT OF REFERENCE UNITS RANGE LAB L503.6005 0.4-2.0 mmol/L High LACTIC ACID 2.3 Result Comment: Critical Result(s) Called at: 02:27:05 08/15/2018 by: Cecilia Wyatt Performed By: #### L503.6005 #### [facility] [address] [place], [address] Observed: 08/15/2018 Status: F Source: MARK CULTURE, BLOOD (WB) 1:[address] [facility] REPOSITORY BC No growth in 5 days. Performed By: #### M200.1000 #### [facility] [address] [place], [address] HISTORY AND PHYSICAL Observed: 08/15/2018 Status: F Source: CINEBAR EXAM 1:[address] [facility] REPOSITORY [facility] Medical Records Department [address] [place] [address] History and Physical 08/14/187 MR#: [id number] Acct: [id number] Name: DOUG CAST Rep #: [id number] : 1935 83 From: Chase Zavala MD PCP: Vijay Mason MD Status: ADM IN Y Location: [place] [address] ADDENDUM by Chase Zavala MD on 08/15/18 at 0108 Code Visit Elevated troponin patient had elevated troponin at the ED. ED doctor reports consult cardiology. Per conversation between ED doctor and supervisor electric motor testing which was reported by ED doctor there was no need to follow troponin and there was no need for further cardiology follow up. Patient with no chest pain. Elevated troponin likely due to poor clearance or demand ischemia. 08/15/18 0108 <Electronically signed by Chase Zavala MD> Date Chase Zavala MD cc: Chase Zavala MD; Vijay Mason MD * Signed Problem List (1) Sepsis affecting skin Status: Acute (2) Lymphedema of lower extremity Status: Chronic (3) Gout Status: Chronic (4) BPH (benign prostatic hyperplasia) Status: Chronic (5) Benign hypertension Status: Chronic (6) Chronic renal insufficiency, stage III (moderate) Status: Chronic (7) Rhabdomyolysis Status: Acute History of Present Illness Date of Admission: 08/14/18 Chief Complaint: confusion The patient is a 83 year old M with a significant history of CVA; MRSA infection; hypertension; hyperlipidemia; Gout; lymphedema; chronic bilateral leg wounds who was found on the floor of his home; confused and found to have elevated CPK; hyperkalemia; leukocytosis and possible infection of his bilateral leg wounds concerning for probable sepsis secondary to bilateral leg infection. Probable Sepsis White count of 14.3. Patient has no other SIRS criteria. However he is on labetalol. He reports taking labetalol the morning of his admission and his heart rate was 80. It is likely that he does not tachycardia because of use of labetalol. We will treat patient's as septic with likely source from infection of bilateral leg wounds. Per ED doctor unwrapping of prior dressing on patient leg showed dark green plaques on left leg that was cultured. Patient noted to have pus from bilateral leg wounds. Patient received vancomycin and Zosyn at emergency department. Patient has a history of MRSA infection. Vancomycin continued. Because patient reportedly has been going to our wound clinic is at risk of Pseudomonas. Zosyn continued. Lactic acid on admission was 2.1. Trend. Trend CBC. Rhabdomyolysis Likely due to fall and lying at one place. Patient received IV fluid bolus at emergency department. We will continue Normal Saline IV hydration Repeat CPK in a.m. Hyperkalemia This could be due to renal failure or rhabdomyolysis. Repeat BMP stat and in a.m. Patient has no serious EKG abnormality. JOSEF on CKD stage III On admission patient's creatinine was 2.92. Review of old records show that his creatinine on 03/01/2018 was 1.41. BUN over creatinine is 19.5. Urine creatinine and urine sodium ordered. His JOSEF on CKD likely is from rhabdomyolysis Continue IV hydration Avoid nephrotoxins. Trend BMP. If his creatinine does not improve consider nephrology consult. Wound Infection Management as in probable sepsis Wound Care consult Pleural effusion Independent review confirms severe pleural effusion on the right side. Review of old records confirms increase in size of right pleural effusion. Patient oxygen saturation was 98-99% on room air. Clinical monitoring. Hypertension On admission blood pressure was not within goal. Labetalol continued. Hydralazine as needed. Gout Allopurinol continued BPH Finasteride continued. DVT prophylaxis Subcutaneous heparin. Past Medical History Past Medical History (Chronic Problems): Chronic Problems Cellulitis (Chronic) Lymphedema of lower extremity (Chronic) Nephrolithiasis (Chronic) Gout (Chronic) CKD (chronic kidney disease), stage III (Chronic) BPH (benign prostatic hyperplasia) (Chronic) Benign hypertension (Chronic) Anemia (Chronic) Chronic renal insufficiency, stage III (moderate) (Chronic) Nonstaphylococcal scalded skin syndrome (Chronic) Arthritis (Chronic) Allergies No Known Allergies Allergy (Verified 04/13/17 14:20) Home Medications: Ambulatory Orders Medication Instructions Recorded Allopurinol 300 mg PO DAILY 10/10/16 Surgical History: - - Bilateral carotid endarectomy Lives: Alone - Per family grandson will go and live with patient after discharge Smoking Status: Never smoker Alcohol: None - *Family History Paternal Family History: Family History (Last Updated 08/15/18 @ 00:00 by Chase Zavala MD) Mother Hyperthyroidism Father Diabetes Aortic aneurysm rupture History Items: Diabetes Maternal Family History: Family History (Last Updated 08/15/18 @ 00:00 by Chase Zavala MD) Mother Hyperthyroidism Father Diabetes Aortic aneurysm rupture History Items: Heart Disease Review of Systems Constitutional: Reports: Weakness. Denies: Chills, Fever, Weight Change Eyes: Denies: Blurred vision, Pain HEENT: Denies: Head Aches, Sinus Congestion, Sinus Drainage Cardiovascular: Denies: Chest Pain, Palpitations Respiratory: Denies: Cough, Shortness of breath at rest, Sputum production Gastrointestinal: Denies: Abdominal Pain, Nausea, Vomiting Genitourinary: Denies: Dysuria Musculoskeletal: Denies: Joint Pain, Joint Tenderness Skin: Denies: Rash, Wounds Neurological: Denies: Numbness, Tingling, Focal weakness Psychiatric: Denies: Anxiety, Depression, Homicidal Ideations, Suicidal Ideations Hematologic/ Lymphatic: Denies: Easy Bruising, Easy Bleeding VTE Information - Inpt Only VTE Present on Admission: No VTE Mechan Device Prophylaxis: None VTE Pharm Prophylaxis ordered?: Yes Patient Problems: Active and Suspected Problems Sepsis affecting skin (Acute) Rhabdomyolysis (Acute) - Physical Exam General: Alert, Cooperative, - - Oriented to self and place. Not oriented to the year. Extremely talkative with many repetition of statements. HEENT: Atraumatic, PERRLA, EOMI, Normocephalic Neck: Supple, No JVD, Negative Carotid Bruits Lungs: Clear to auscultation, Normal air movement Cardiovascular: Regular rate, No murmurs Abdomen: Bowel Sounds Present, Soft, Non Tender Extremities: No edema, Capillary Refill Less than 3 Seconds Skin: - - Excoriations of bilateral posterior legs; and with pus. Tender left posterior leg wound. Medial and lateral redness of left leg. Swelling of left leg. 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 Per family patient was found on the floor with his recliner chair sit up forward and with scattered changes all over and a ceramics over his body and his hands entangled in wires. His family thinks that he fell and he tried to get up. Per his family patient was confused. When asked multiple questions he he was found; he kept saying: I am hoarse. Per family patient is normal alert, oriented and sharp. He has bilateral leg wounds that he follows up with the wound clinic. At emergency department patient was found to have elevated CPK. Also was found to have elevated potassium of 6.3. However his blood was slightly hemolyzed. Patient received D50, insulin and bicarbonate for this hyperkalemia. Patient was diagnosed with sepsis and received vancomycin and Zosyn. Probable Sepsis White count of 14.3. Patient has no other Sirs criteria. However he is on labetalol. He reports taking labetalol the morning of his admission and his heart rate was 80. We will treat patient's as a sepsis with likely source from infection of bilateral leg wounds. Per ED doctor unwrapping of prior dressing on patient leg showed dark green plaques on left leg that was cultured. Patient noted to have pus from bilateral leg wounds. Patient received vancomycin and Zosyn at emergency department. Patient has a history of MRSA infection. Vancomycin continued. Because patient reportedly has been going to our wound clinic is at risk of Pseudomonas. Zosyn continued. Lactic acid on admission was 2.1. Trend. Rhabdomyolysis Likely due to fall and line at one place. Patient received IV fluid bolus at emergency department. We will continue patient on half-normal saline due to hyperchloremia. Repeat CPK in a.m. Hyperkalemia This could be due to renal failure or rhabdomyolysis. Repeat BMP stat and in a.m. Patient has no serious EKG abnormality. Wound Infection Management as in probable sepsis Wound Care consult Pleural effusion Independent review confirms severe pleural effusion on the right side. Review of old records confirms increase in size of right pleural effusion. Patient oxygen saturation was 98-99% on room air. Clinical monitoring. Code Visit Inpatient E AND M: [id number] Init Hosp L3 08/15/18 0037 <Electronically signed by Chase Zavala MD> Date Chase Zavala MD Cosigner Signature: Date (if applicable) CC: Chase Zavala MD; Vijay Mason MD Signed BASIC METABOLIC Collected: 08/15/2018 Status: F Source: MARK PROFILE (BMP) 12:[address] [facility] REPOSITORY TYPE CODE TESTS RESULT OUT OF RANGE REFERENCE UNITS LAB L501.0100 74-106 mg/dL High GLU 159 Result Comment: Fasting Glucose result greater than or equal to 126 mg/dL suggests DIABETES MELLITUS per A.D.A. criteria. Please note revised GLUCOSE reference range effective 2017. LAB L501.1000 7-18 mg/dL High BUN 61 LAB L501.1100 0.70-1.30 mg/dL High CREAT,SERUM 3.20 Result Comment: The validity of the calculated GFR AND GFRAA in patients over 70 years has not been determined. Clinical correlation is essential. LAB L501.1110 >60 mL/min Low EST GFR 20 Result Comment: Non- GFR Calc LAB L501.1115 >60 mL/min Low EST GFR - AA 24 Result Comment: GFR Calc LAB L501.1255 ml/min Normal Estimated CRCL 18.10 LAB L501.1300 10-20 RATIO Normal BUN/CRE 19.1 LAB L501.2200 8.5-10 mg/dL Low .1 CA 8.3 LAB L501.5300 136-14 mmol/L Normal 5 NA 145 LAB L501.5600 3.5-5. mmol/L Normal 1 K 5.1 LAB L501.5900 98-107 mmol/L High CL 110 LAB L501.6100 21.0-3 mmol/L Normal 2.0 CO2 24.0 LAB L501.6200 5-15 Normal GAP 11 Performed By: #### L500.2500 #### [facility] [address] [facility] [place], [address] EMERGENCY DEPARTMENT Observed: 08/14/2018 Status: F Source: CINEBAR SUMMARY 11:[address] [facility] REPOSITORY [facility] Medical Records Department [address] [place] [address] Emergency Department Summary 08/14/18 2108 MR#: [id number] Acct: [id number] Name: DOUG CAST Rep #: [id number] : 1935 83 From: Ata Heath MD PCP: Vijay Mason MD Status: REG ER - ER Visit Summary Date of Service: 08/14/18 Chief Complaint: Confusion History of Present Illness: The patient is a [address] Vijay Mason. He lives alone and is very functional. Family reports they spoke with him yesterday and he was at his baseline. States that he did not answer his phone this morning. However, he clearly then on the computer approximately 930. They went over to his house and he was on the floor and had been unable to get up. Patient complains of generalized weakness and chills. Patient reports that he goes to the wound clinic as needed for lymphedema. Physical Examination: Vitals: Stable. Afebrile. General: Well-nourished and well-developed. Head: Normocephalic atraumatic. Neck: Supple, no lymphadenopathy. No JVD. Mild diffuse tenderness palpation over the entire C-spine. No point tenderness.. Cardiovascular: Regular rate and rhythm. 2 out of 6 systolic murmur. Respiratory: No respiratory distress. Clear to auscultation bilaterally. Abdominal: Soft, nontender, nondistended, normal bowel sounds. No guarding, rebound, or peritoneal signs. Back: Moderate diffuse tenderness palpation over his lumbar spine. No point tenderness.. Extremities: 3+ pitting edema of his lower extreme is bilaterally. He has a large ulcer on the back of his left leg that extends to subcutaneous tissues and has surrounding erythema. There is green malodorous drainage coming from this. He has superficial ulcers over both the medial and lateral malleolus of the right ankle. Neurologic: Alert and oriented 1. Cranial nerves II through XII are intact. Normal strength and sensation. Psych: Normal affect. Test Results: EKG is sinus at 68 with PACs and right bundle branch block. It is unchanged from 2017. CBC is more for white count of 14.3, segmented neutrophils 93, lymphocytes 4. Lactic acid is 2.1. Chem-7 is more for potassium of 6.3 (moderately hemolyzed) chloride of 109, BUN of 57, creatinine 2.92. Creatinine ranged from 1.41-2.52 in 2017. UA is marked for leukocytes, nitrites, blood, and 5-10 red blood cells. Initial troponin 0 0.230. CPK is 2125. Chest x-ray shows moderate right pleural effusion with atelectasis. LS spine x-ray show degenerative changes. CT of the C-spine shows degenerative changes and no acute disease. CT brain shows a right parietal hematoma and chronic changes otherwise. Emergency Department Course and Treatment: Patient had an IV placed. He was given a liter of normal saline. He was given D50 and insulin IV. Due to the hyperkalemia and rhabdomyolysis he was given an amp of bicarb IV. He was also given Zosyn and vancomycin IV. Aerobic and anaerobic cultures were sent from his left leg. A urine culture was sent. Treatment Plan: The patient was discussed with the hospitalist and will be admitted to the hospital for further evaluation and treatment. He is also discussed with Dr. Maxwell. At this time the elevated troponin is likely from his underlying illness and does not need to be repeated. Disposition: Admitted in serious condition. Impression: 1. Ulcers to legs bilaterally. 2. Cellulitis left leg. 3. Acute kidney injury. 4. Severe sepsis. 5. Hypokalemia. 6. Rhabdomyolysis. 7. Acute delirium. 8. Right pleural effusion. 9. Critical care time 30 minutes. This note was generated with [employer] dictation software. It may contain incorrect words, spelling, and punctuation that were not noted in review of the chart prior to signing ED Disposition - Plan for ED Patient: Chief Complaint: Fall Referrals: Vijay Mason MD [Primary Care Provider] - What to do if you have Problems For any increased pain, shortness of breath, bleeding, nausea or vomiting, chest pain, or any unexpected problems, contact your Primary Care Provider. Call [facility] ([phone]) or report to the closest Emergency Room. Call 911 if necessary. 08/14/18 2319 <Electronically signed by Ata Heath MD> Date Ata Heath MD Cosigner Signature (If Indicated): Date CC: Vijay Mason MD LACTIC ACID Collected: 08/14/2018 Status: F Source: CINEBAR 9:[address] [facility] REPOSITORY Order Comment: Yes/No query for Sepsis Lactate Rule Y TYPE CODE TESTS RESULT OUT OF REFERENCE UNITS RANGE LAB L503.6005 0.4-2.0 mmol/L High LACTIC ACID 2.1 Result Comment: CALLED [facility] ED WITH [facility]ICAL [facility] 08-14-18 AT 2154PM READ BACK BY SAME Performed By: #### L503.6005 #### [facility] [address] [place], [address] Observed: 08/14/2018 Status: F Source: MARK CULTURE, DEEP WOUND 8:[address] [facility] REPOSITORY Order Date: 08/14/18 Gram Stain Gram Stain No White Blood Cells 1+ Gram positive cocci Rare Gram negative rods Wound Culture #2 Gram positive collin suggestive of a diptheroid. There are no CLSI standards for interpretation of this Drug/Organism combination. ORGANISM 1: Pseudomonas spp Amount Growth 1+ ORGANISM 2: Gram positive collin Amount Growth 2+ Pseudomonas spp: REACTION Aztreonam $$$ 27 S Pseudomonas spp: REACTION Amikacin $ 4 S Cefepime $ 4 S Ceftazidime *NF 2 S Gentamicin $ 4 S Imipenem *NF 2 S Levofloxacin $ 2 S Meropenem $ <=0.25 S Piperacillin/Tazobactam $$ 8 S Tobramycin $ <=1 S (NF) indicates non-formulary drug at [facility]. Approval by Infectious Disease Specialist required before non-formulary drugs may be ordered and/or dispensed. Cult, Anaerobic No anaerobic bacteria isolated. Performed By: #### M100.1500 #### [facility] [address] [facility] [place], [address] BRAIN/HEAD WITHOUT Observed: 08/14/2018 Status: F Source: CINEBAR CONTRAST 6:[address] [facility] REPOSITORY [facility] Imaging Services [address] [place] [address] Brain/Head without Contrast MR#: [id number] Acct: [id number] Name: DOUG CAST Brittani Rep #: [id number] : 1935 M 83 From: Dionte Castillo DO PCP: Vijay Mason MD Status: REG ER Study: Brain/Head without Contrast Date of Exam: 08/14/18 Exam# [id number] Ordering Dr: Ata Heath MD STUDY: CT BRAIN WITHOUT CONTRAST REASON FOR EXAM: Male, 83 years old. Fall this morning. RADIATION DOSAGE (If Supplied By Facility): CTDIvol = ( 44.99 ) mGy, DLP = ( 829.85 ) mGycm TECHNIQUE: Transaxial CT imaging of the brain was performed without administration of intravenous contrast material. # of Images: 260 Individualized dose optimization techniques were used for this CT. COMPARISON: None. FINDINGS: There is a soft tissue mass over the right parietal region above the right ear. Soft tissues are otherwise unremarkable. Normal calvarium. There is mild cerebral atrophy with widening of the extra- axial spaces and ventricular dilatation. There is increasing encephalomalacia in the left parietal lobe suggesting remote left MCA distribution infarct. Normal basal ganglia and thalami. Normal brainstem. Normal cerebellum. There is no intracranial hemorrhage. There are no findings of an acute ischemic infarction. Normal visualized paranasal sinuses. CT/Brain/Head without Contrast IMPRESSION: 1. Remote left MCA distribution infarct. 2. Chronic involutional changes without acute intracranial or calvarial abnormality. 3. Soft tissue density overlying the right parietal region suggesting subcutaneous hematoma. Electronically Signed: Dionte Castillo DO at 20:58 EDT Tel [phone], Service support , CC: Ata Heath MD; Vijay Mason MD Safety Leader: Signed SPINE CERVICAL Observed: 08/14/2018 Status: F Source: CINEBAR WITHOUT CONTRAS 6:[address] [facility] REPOSITORY [facility] Imaging Services [address] [place] [address] Spine Cervical without Contras MR#: [id number] Acct: [id number] Name: DOUG CAST Rep #: [id number] : 1935 M 83 From: Dionte Castillo DO PCP: Vijay Mason MD Status: REG ER Study: Spine Cervical without Contras Date of Exam: 08/14/18 Exam# [id number] Ordering Dr: Ata Heath MD STUDY: CT CERVICAL SPINE WITHOUT CONTRAST REASON FOR EXAM: Male, 83 years old. Fall this morning. RADIATION DOSAGE (If Supplied By Facility): CTDIvol = ( 22.32 ) mGy, DLP = ( 556.17 ) mGycm TECHNIQUE: High resolution transaxial imaging was performed without contrast material. Sagittal and coronal images were reconstructed. # of Images: 482 Individualized dose optimization techniques were used for this CT. COMPARISON: None FINDINGS: Normal craniovertebral junction. There are degenerative changes of the anterior atlantoaxial articulation. Normal odontoid process. Normal cervical lordosis. Normal vertebral bodies and posterior osseous elements. 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 C2-3: There is loss of disc height with endplate spondylosis. There is facet and uncovertebral joint degenerative change. Normal central canal. Narrowing of the right intervertebral neuroforamen. C3-4: There is endplate spondylosis with loss of disc height. There is facet and uncovertebral joint degenerative change. Normal central canal. There is marked narrowing of the right intervertebral neuroforamen. C4-5: There is loss of disc height with endplate spondylosis. There is facet and uncovertebral joint degenerative change. Normal central canal. There is narrowing of the right intervertebral neuroforamen. C5-6: There is loss of disc height with endplate spondylosis. There is facet and uncovertebral joint degenerative change. Normal central canal is narrowing of the bilateral intervertebral neuroforamina, right greater than left. C6-7: There is loss of disc height with endplate spondylosis.. There is facet and uncovertebral joint degenerative change. Normal central canal and there is mild narrowing of the bilateral intervertebral neuroforamina. C7-T1: There is loss of disc height with minimal endplate spondylosis. There is facet joint degenerative change. Normal central canal. There is narrowing of the left intervertebral neuroforamen. Normal visualized soft tissue structures. CT/Spine Cervical without Contras IMPRESSION: Degenerative changes of the cervical spine without acute fracture or subluxation. Electronically Signed: Dionte Castillo DO at 21:04 EDT Tel [phone], Service support , CC: tAa Heath MD; Vijay Mason MD Safety Leader: Signed CHEST 1 VIEW Observed: 08/14/2018 Status: F Source: CINEBAR (PORTABLE) 6:[address] [facility] REPOSITORY [facility] Imaging Services [address] [place] [address] Chest 1 View (Portable) MR#: [id number] Acct: [id number] Name: DOUG CAST Rep #: [id number] : 1935 M 83 From: Dionte Castillo DO PCP: Vijay Mason MD Status: REG ER Study: Chest 1 View (Portable) Date of Exam: 08/14/18 Exam# [id number] Ordering Dr: Ata Heath MD STUDY: X-RAY CHEST REASON FOR EXAM: Male, 83 years old. Confusion. Patient found on floor by family members. TECHNIQUE: Single AP portable view of the chest. COMPARISON: May 10, 2017. FINDINGS: Telemetry wires overlie the chest. There is a moderate right pleural effusion with subsegmental atelectasis. There is no focal mass or infiltrate within the lungs. Normal size heart. Normal mediastinum and jordan. Normal visualized pulmonary arteries. Normal visualized aortic arch and descending thoracic aorta. The thoracic spine is obscured by the mediastinum. There is degenerative osteoarthritis of the bilateral shoulders. There is no demonstrated abnormality of the visualized soft tissue structures of the upper abdomen. RAD/Chest 1 View (Portable) IMPRESSION: Enlarging right pleural effusion and atelectasis on compared to the prior study. Electronically Signed: Dionte Castillo DO at 21:05 EDT Tel [phone], Service support , CC: Ata Heath MD; Vijay Mason MD Safety Leader: Signed LUMBAR SPINE 2 OR 3 Observed: 08/14/2018 Status: F Source: CINEBAR VIEWS 6:[address] [facility]POSITORY [facility] Imaging Services [address] [place] [id number] Lumbar Spine 2 or 3 Views MR#: [id number] Acct: [id number] Name: DOUG CAST Brittani Rep #: [id number] : 1935 M 83 From: Dionte Castillo DO PCP: Vijay Mason MD Status: REG ER Study: Lumbar Spine 2 or 3 Views Date of Exam: 08/14/18 Exam# [id number] Ordering Dr: Ata Heath MD STUDY: X-RAY - LUMBAR SPINE REASON FOR EXAM: Male, 83 years old. Infusion. Patient found on floor. Complaints of lower back pain. TECHNIQUE: 3 view(s) of the lumbar spine were obtained. COMPARISON: None FINDINGS: There is straightening of the normal lumbar lordosis. There is no substantial scoliosis. There is a normal alignment of the vertebrae. There is multilevel endplate spondylosis of the lumbar vertebrae. There is multi-level degenerative disc disease with multi-level disc space narrowing. There is no evidence of acute fracture or loss of vertebral axial height. The soft tissue structures are unremarkable. RAD/Lumbar Spine 2 or 3 Views IMPRESSION: Degenerative changes of the lumbar spine is straightened lordosis. Electronically Signed: Dionte Castillo DO at 21:06 EDT Tel [phone], Service support , CC: Ata Heath MD; Vijay Mason MD Safety Leader: Signed CBC W/DIFF, AUTOMATED Collected: 08/14/2018 Status: F Source: [place] 6:[address] [facility] REPOSITORY TYPE CODE TESTS RESULT OUT OF RANGE REFERENCE UNITS LAB L100.1000 4.4-11.0 K/mm3 High WBC 14.3 LAB L100.1200 4.6-6.2 M/mm3 Normal RBC 4.74 LAB L100.1300 13.0-16.5 g/dl Normal HGB 13.2 LAB L100.1400 40-54 % Normal HCT 43.4 LAB L100.1500 80-94 fL Normal MCV 91.6 LAB L100.1600 27.0-32.0 pg Normal MCH 27.8 LAB L100.1700 32-36 g/gl Low MCHC 30.4 LAB L100.1810 11.6-14.6 % High RDW CV 15.0 LAB L100.1820 35.1-43.9 fl High RDW SD 49.6 LAB L100.1900 150-450 K/mm3 Normal PLT 228 LAB L100.2000 6.2-12.0 fl Normal MPV 11.3 LAB L100.2100 47-70 % High NEUT% 93.4 LAB L100.2200 19-41 % Low LY% 4.0 LAB L100.2300 0-10 % Normal MONO% 2.4 LAB L100.2400 0-5 % Normal EO% 0.0 LAB L100.2500 0-1 % Normal BASO% 0.0 LAB L100.2550 0.0-0.9 % Normal IM GRAN % 0.200 Result Comment: IG% - Immature Granulocytes (promyelocytes, myelocytes and metamyelocytes) > 1% indicates that a LEFT SHIFT is Present. LAB L100.2620 2.0-7.7 X10 3/uL High Absolute Neut 13.4 LAB L100.2720 0.83-4.51 X10 3/ul Low Absolute Lymph 0.58 LAB L100.4500 Normal SMEAR COMMENT Result Comment: LYMPHOPENIA NOTED LAB L100.5500 ADEQ Normal PLT EST A LAB L100.7000 NORM C AND NORMAL Normal C RED CELL NORM MORPH C+C Performed By: #### L100.0100 #### [facility] [address] [employer] [facility] [place], [place], [id number] BASIC METABOLIC Collected: 08/14/2018 Status: C Source: CINEBAR PROFILE (BMP) 6:[address] [facility] REPOSITORY TYPE CODE TESTS RESULT OUT OF RANGE REFERENCE UNITS LAB L501.0100 74-106 mg/dL High GLU 107 Result Comment: Fasting Glucose result from 100 to 125 mg/dL suggests IMPAIRED HOMEOSTASIS per A.D.A. criteria. Please note revised GLUCOSE reference range effective 2017. LAB L501.1000 7-18 mg/dL High BUN 57 LAB L501.1100 0.70-1.30 mg/dL High CREAT,SERUM 2.92 Result Comment: The validity of the calculated GFR AND GFRAA in patients over 70 years has not been determined. Clinical correlation is essential. LAB L501.1110 >60 mL/min Low EST GFR 22 Result Comment: Non- GFR Calc LAB L501.1115 >60 mL/min Low EST GFR - AA 27 Result Comment: GFR Calc LAB L501.1255 ml/min Normal Estimated CRCL 19.84 LAB L501.1300 10-20 RATIO Normal BUN/CRE 19.5 LAB L501.2200 8.5-10 mg/dL Normal .1 CA 8.6 LAB L501.5300 136-14 mmol/L Normal 5 NA 143 LAB L501.5600 3.5-5. mmol/L High 1 K alert 6.3 Result Comment: RESULTS CALLED TO [facility] 08/14/18 [address]. REPORT READ BACK BY SAME . Moderate Hemolysis, Result may be falsely increased. Moderate Hemolysis, Result may be falsely increased. LAB L501.5900 98-107 mmol/L High CL 109 LAB L501.6100 21.0-32.0 mmol/L Normal CO2 22.0 LAB L501.6200 5-15 Normal GAP 12 Performed By: #### L500.2500, L501.4010 #### [facility] [address] [place], [place], [id number] TROPONIN-I Collected: 08/14/2018 Status: F Source: CINEBAR 6:[address] [facility] REPOSITORY TYPE CODE TESTS RESULT OUT OF RANGE REFERENCE UNITS LAB L501.4010 <0.045 ng/mL High 0.230 TROPONIN-I Result Comment: TROPONIN-I EXPECTED VALUES <0.045 Negative 0.045 - 0.590 Consistent with Cardiac Damage > OR = 0.600 Critical Value Not every elevated troponin is indicative of MN. These values should be used with clinical judgement in examining the patient's clinical picture for diagnosis. To establish a diagnosis of MN versus myocardial injury, there must be a demonstrated rise and/or fall in the troponin values, in addition to ischemic symptoms, EKG changes, new regional wall motion abnormality, and/or angiographical evidence. PLEASE NOTE: REFERENCE RANGES EDITED 18 Performed By: #### L500.2500, L501.4010 #### [facility] [address] [place], [place], [address] CPK TOTAL, CREATINE Collected: 08/14/2018 Status: F Source: [place] KINASE 6:[address] [facility] REPOSITORY TYPE CODE TESTS RESULT OUT OF RANGE REFERENCE UNITS LAB L501.3620 39-308 U/L High CPK TOTAL 2125 Result Comment: Moderate Hemolysis, Result may be falsely increased. Performed By: #### L501.3620 #### [facility] [address] [place], [address] URINALYSIS, COMPLETE Collected: 08/14/2018 Status: F Source: [place] 5:[address] [facility] REPOSITORY Order Comment: Order Date: 08/14/18 COLOR OF URINE MAY AFFECT DIPSTICK RESULTS. How was Urine Obtained? CLEAN CATCH TYPE CODE TESTS RESULT OUT OF RANGE REFERENCE UNITS LAB L400.3000 Yellow COLOR Normal Anjelica LAB L400.3050 Clear Normal CLARITY Sl. Cloudy LAB L400.3200 Normal mg/dl Normal GLUCOSE, UR Normal LAB L400.3300 Negative mg/dL High BILIRUBIN URINE 3 Result Comment: COLOR OF URINE MAY AFFECT DIPSTICK RESULTS. LAB L400.3400 Negative mg/dl High KETONE UR 5 LAB L400.3465 1.002-1.030 Normal SP.GR. DIPSTX 1.025 LAB L400.3550 5.0 - 8.0 pH Normal UR 5.0 LAB L400.3600 Negative mg/dl High PROT DIPSTX 100 LAB L400.3700 Normal mg/dl High UROBILI 4 LAB L400.3750 Negative High NITRITE UR Positive LAB L400.3780 Negative /ul High OCCULT 150 BLOOD-UR LAB L400.3800 Negative /ul High LEUK ESTERASE 25 LAB L400.4050 0-5 /hpf Normal WBC 0-5 SEEN LAB L400.4100 0-5 /hpf Normal RBC-UA 5-10 SEEN LAB L400.4150 0-5 /hpf Normal SQUAM EPI 0-5 SEEN LAB L400.4300 None Seen /hpf Normal BACTERIA RARE LAB L400.4350 <or=2+ /hpf Normal MUCUS, URINE 0 SEEN LAB L400.4900 Normal AMORPHOUS 1+ URATE Performed By: #### L400.0001 #### [facility] [address] [place], [address] CREATININE, URINE Collected: 08/14/2018 Status: F Source: [place] 5:[address] [facility] REPOSITORY Order Comment: Comments: Sent from ED TYPE CODE TESTS RESULT OUT OF RANGE REFERENCE UNITS LAB L502.0300 NO RANGE EST. mg/dL Normal URINE 253.00 CREAT Performed By: #### L502.0300 #### [facility] [address] [place], [address] URINE SODIUM Collected: 08/14/2018 Status: F Source: [place] 5:[address] [facility] REPOSITORY Order Comment: Comments: Sent from ED TYPE CODE TESTS RESULT OUT OF RANGE REFERENCE UNITS LAB L501.5500 Not Establ. mmol/L Normal UR NA 55 Performed By: #### L501.5500 #### [facility] [address] [place], [address] PROGRESS Observed: 07/31/2018 Status: COMPLETED Source: [place] 11:32 AM [facility] REPOSITORY HNO ID: [id number] Author: Julisa Paulson (Maria Isabel) MARIA ISABEL Tran Service: (none) Author Type: LICENSED NURSE Type: Progress Notes Filed: 07/31/2018 1:51 PM Note Text: 82 year old male here for INACTIVATED INFLUENZA VACCINE. 1124-8313 Season Patient is identified by name and date of : Yes [] CONTRAINDICATIONS color enhanced section Age less than 6 months? No Allergy to eggs, chicken, chicken feathers, or chicken dander? No Allergy to thimerosal (a preservative) or formaldehyde, gelatin? No History of severe reaction to any vaccine component or a previous dose of influenza vaccination? No History of Guillain-Rochester Syndrome within 6 weeks after a previous influenza vaccine? No Patient is not moderately or severely ill? No Current temperature greater or equal to 100.4F? No History of Bone Marrow Transplant prior 6 months or solid organ transplant in the past 3 months ? No History of fainting after a prior injection or medical procedure? No- ? If patient has fainted in the past, the CDC recommends sitting or lying down for 15 minutes after the vaccination. [] VERIFICATION color enhanced section Was the answer Yes for any of the above contraindications? No contraindications present. Acceptable to proceed with vaccine. Patient/guardian agrees the above answers are true to the best of their knowledge? Yes Flu vaccine information sheet given? Yes See immunization activity in [facility] for details of immunizations adminstered today. Patient age: [age] year old For The 7573-0061 Flu Season 6-35 months old: Fluzone 0.25 ml - IM (Preservative Free) 3 years of age: Fluzone 0.5 ml - IM (Preservative Free) 3 years and older: Fluzone 0.5 ml- IM-(with Preservatives) 65+ years old: 2-49 years old Fluzone High-Dose 0.5 ml - IM (Preservative Free) FLUMIST- intranasal REMEMBER: If patient is less than 9 years of age and this is the first vaccine of Influenza to be received in any flu season, they should receive a second dose in one months time. PROGRESS Observed: 07/31/2018 Status: COMPLETED Source: [place] 11:13 AM [facility] REPOSITORY [facility] ID: [id number] Author: Rah Perez Service: (none) Author Type: Physician Type: Progress Notes Filed: 07/31/2018 1:51 PM Note Text: Diagnosis: 1) Anemia. HPI: The patient is a 82 yo male who has a PMH significant for PVD (L and R CEA), CKD ( ), gout, lymphedema of the legs, HTN, stroke (1999; right arm paresis--all symptoms resolved except little finger), lumbar stenosis, renal lithiasis and hyperlipidemia. Patient has a history of anemia and mild thrombocytopenia. He also underwent a workup for chronic kidney disease which culminated in a renal biopsy last May. However the patient's not quite certain what the results of that were. Most recent CBC showed hemoglobin 9.4 g/dL. White count was borderline low at 4000. Differential was unremarkable. Platelet count was 137,000. He didn't have any bleeding issues. He has significant lower extremity edema/lymphedema. Pain in both legs at night. He is under the care of the wound center and undergoes lymphatic pumping as well as wraps. He does this himself at home. Presents for ongoing hematologic management. Interim history: Receiving Aranesp when Hgb below 10 g/dl. No symptoms of cardiomyopathy including chest pain/pressure, palpitations, shortness of breath at rest or with exertion, PND or orthopnea. Stable b/l LE swelling edema from lymphedema. PMH, medications and allergies as below personally reviewed by me today. Any changes documented in appropriate section. ROS: Constitutional: Denies episodes of fever and night sweats. Not significantly fatigued. Normal appetite. Neuro: Denies URBINA, vertigo, dizziness. Occasional imbalance leading to a fall--has happened twice in the past. Denies symptoms of neuropathy. HEENT: No recent change in voice, vision or hearing. Resp: Denies cough, wheeze and hemoptysis. CVS: Denies PND, orthopnea. Stable chronic LE lymphedema. GI: Denies dysgeusia. Denies symptoms of stomatitis. Denies dysphagia and odynophagia. Denies reflux, n/v, change in bowel habits and abdominal pain. : Denies dysuria or gross hematuria. No symptoms of bladder outlet obstruction. Endo: Denies hot flashes. Denies polyuria and polydipsia. Denies heat and cold intolerance. Musculoskeletal: Denies bone, back, joint and muscular pain. Derm: Denies rash. Denies jaundice and diffuse pruritis. Heme: See above. Psych: Normal mood. PHYSICAL EXAM: Vitals: Blood pressure 188/83, pulse 68, temperature 36.8 ?C (98.2 ?F), weight 77.6 kg (171 lb). Well-appearing and in no acute distress. EYES: Sclerae are anicteric bilaterally. NECK: Supple. LYMPHATIC: There is no palpable cervical, supraclavicular adenopathy. RESPIRATORY: Inspiratory breath sounds are of normal intensity in all xie. No rales, wheezes or rhonchi. CARDIOVASCULAR: Rhythm is regular. Normal intensity S1/S2. There is no gallop or murmur. ABDOMEN: The abdomen is nondistended. Extremities: Stable edema from knees down both LEs SKIN: No jaundice or rash. No petechiae. 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 No focal motor weakness. MUSCULOSKELETAL: No muscle wasting. ASSESSMENT/PLAN: (D64.9) Anemia, unspecified type (primary encounter diagnosis) (N18.3) CKD (chronic kidney disease) stage 3, GFR 30-59 ml/min Assessment: -Tolerating and benefiting from Aranesp. -Maintaining appropriate iron levels. Plan: -Will continue every other week CBC/possible Aranesp. -Flu shot today. Rah Perez, DO [place] ABS GR + CBC Collected: 07/31/2018 Status: F Source: [place] 10:52 AM [facility] REPOSITORY TYPE CODE TESTS RESULT OUT OF REFERENCE UNITS RANGE LAB WWBC 3.70-11.00 k/uL [place] WBC 4.25 LAB WRBC 4.20-6.00 m/uL Low [place] RBC 3.55 LAB WHGB 13.0-17.0 g/dL Low [place] Hemoglobin 10.3 LAB WHCT 39.0-51.0 % Low [place] Hematocrit 34.5 LAB WMCV 80.0-100.0 fL [place] MCV 97.2 LAB WMCH 26.0-34.0 pg [place] MCH 29.0 LAB WMCHC 30.5-36.0 g/dL Low [place] MCHC 29.9 LAB WRDW 11.5-15.0 % [place] High RDW 15.2 LAB WPLT 150-400 k/uL [place] Platelet Cnt 176 LAB WMPV 9.0-12.7 fL [place] MPV 10.5 Result Comment: Test performed at: [facility], [address] [place] [address]. LAB ABGRAN 1.45-7.50 k/uL Absol Gran 3.28 Count [place] ISTAT BMP Collected: 07/31/2018 Status: F Source: [place] 10:52 AM [facility] REPOSITORY TYPE CODE TESTS RESULT OUT OF REFERENCE UNITS RANGE LAB NAWB 135-146 mmol/L Sodium, Whole 143 Bld LAB K1WB 3.5-5.0 mmol/L Potassium,Who 4.0 le Bld LAB CLWB 98-110 mmol/L Chloride, 105 Whole Bld LAB ICAWB 1.08-1.30 mmol/L Ionized 1.15 Calcium, WB Result Comment: Please note: This value represents ionized calcium not total calcium. LAB CO2WB 23-32 mmol/L TCO2, Whole 29 Blood LAB GLUWB 65-100 mg/dL High Glucose, 108 Whole Bld LAB BUNWB 10-25 mg/dL High BUN, Whole 27 Blood LAB BCRET 0.70-1.40 mg/dL Creatinine,Wh 1.30 ole Bld LAB AGAPWB 0-15 mmol/L Anion Gap, 9 Whole Bld LAB GFRAA eGFR- >60 Amer. LAB GFRNAA . eGFR-All 53 Other Races Result Comment: eGFR (Estimated GFR) Units of measure: mL/min/1.73 meters squared eGFR is derived from the reexpressed MDRD Study equation using the following parameters: serum creatinine, age, gender and race. The creatinine assay has been calibrated to be traceable to IDMS. An eGFR <60 mL/min/1.73m2 for >3 months is consistent with chronic kidney disease. Refer to KDOQI guidelines for clinical interpretation. In patients with unstable renal function, e.g. those with acute kidney injury, the eGFR may not accurately reflect actual GFR. IRON AND TIBC Collected: 07/31/2018 Status: F Source: [place] 10:52 AM [facility] REPOSITORY TYPE CODE TESTS RESULT OUT OF REFERENCE UNITS RANGE LAB IRN 41-186 ug/dL Low Iron 31 LAB TIBC 232-386 ug/dL Low TIBC 182 LAB SAT 15-57 % Transferrin Saturatn 17 Performed By: #### IRON, FERR #### [facility] [address] [place], [place] [address] FERRITIN Collected: 07/31/2018 Status: F Source: [place] 10:52 AM [facility] REPOSITORY TYPE CODE TESTS RESULT OUT OF REFERENCE UNITS RANGE LAB FERR 30.3-565.7 ng/mL Ferritin 448.4 Performed By: #### IRON, FERR #### [facility] [address] [place], [place] [address] CNOVSP Observed: 07/31/2018 Status: COMPLETED Source: [place] 9:50 AM [facility] REPOSITORY Visit (SP) Office (HEMAWS) DOUG CAST ([id number]) 1935 [address] [facility] Date Time Provider Department 07/31/18 9:50 AM RAH PEREZ During your visit today, we recorded the following information about you: Temperature Pulse Blood pressure Weight 98.2 degrees 68/minute 188/83 77.6 kg Julisa Tran LPN, LPN 07/31/2018 11:17 AM Signed Est pt. Discuss recent lab results MARIA ISABEL Bonilla DO 07/31/2018 1:51 PM Signed Diagnosis: 1) Anemia. HPI: The patient is a 82 yo male who has a PMH significant for PVD (L and R CEA), CKD ( ), gout, lymphedema of the legs, HTN, stroke (1999; right arm paresis--all symptoms resolved except little finger), lumbar stenosis, renal lithiasis and hyperlipidemia. Patient has a history of anemia and mild thrombocytopenia. He also underwent a workup for chronic kidney disease which culminated in a renal biopsy last May. However the patient's not quite certain what the results of that were. Most recent CBC showed hemoglobin 9.4 g/dL. White count was borderline low at 4000. Differential was unremarkable. Platelet count was 137,000. He didn't have any bleeding issues. He has significant lower extremity edema/lymphedema. Pain in both legs at night. He is under the care of the wound center and undergoes lymphatic pumping as well as wraps. He does this himself at home. Presents for ongoing hematologic management. Interim history: Receiving Aranesp when Hgb below 10 g/dl. No symptoms of cardiomyopathy including chest pain/pressure, palpitations, shortness of breath at rest or with exertion, PND or orthopnea. Stable b/l LE swelling edema from lymphedema. PMH, medications and allergies as below personally reviewed by me today. Any changes documented in appropriate section. ROS: Constitutional: Denies episodes of fever and night sweats. Not significantly fatigued. Normal appetite. Neuro: Denies URBIAN, vertigo, dizziness. Occasional imbalance leading to a fall--has happened twice in the past. Denies symptoms of neuropathy. HEENT: No recent change in voice, vision or hearing. Resp: Denies cough, wheeze and hemoptysis. CVS: Denies PND, orthopnea. Stable chronic LE lymphedema. GI: Denies dysgeusia. Denies symptoms of stomatitis. Denies dysphagia and odynophagia. Denies reflux, n/v, change in bowel habits and abdominal pain. : Denies dysuria or gross hematuria. No symptoms of bladder outlet obstruction. Endo: Denies hot flashes. Denies polyuria and polydipsia. Denies heat and cold intolerance. Musculoskeletal: Denies bone, back, joint and muscular pain. Derm: Denies rash. Denies jaundice and diffuse pruritis. Heme: See above. Psych: Normal mood. PHYSICAL EXAM: Vitals: Blood pressure 188/83, pulse 68, temperature 36.8 ?C (98.2 ?F), weight 77.6 kg (171 lb). Well-appearing and in no acute distress. EYES: Sclerae are anicteric bilaterally. NECK: Supple. LYMPHATIC: There is no palpable cervical, supraclavicular adenopathy. RESPIRATORY: Inspiratory breath sounds are of normal intensity in all xie. No rales, wheezes or rhonchi. CARDIOVASCULAR: Rhythm is regular. Normal intensity S1/S2. There is no gallop or murmur. ABDOMEN: The abdomen is nondistended. Extremities: Stable edema from knees down both LEs SKIN: No jaundice or rash. No petechiae. 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 No focal motor weakness. MUSCULOSKELETAL: No muscle wasting. ASSESSMENT/PLAN: (D64.9) Anemia, unspecified type (primary encounter diagnosis) (N18.3) CKD (chronic kidney disease) stage 3, GFR 30-59 ml/min Assessment: -Tolerating and benefiting from Aranesp. -Maintaining appropriate iron levels. Plan: -Will continue every other week CBC/possible Aranesp. -Flu shot today. DO Julisa Mendoza LPN, MARIA ISABEL 07/31/2018 11:33 AM Signed Influenza virus vaccine given as ordered. Right deltiod Julisa Paulson Marc, WATER PURIFICATION CHEMIST Julisa Paulson Marc, WATER PURIFICATION CHEMIST, WATER PURIFICATION CHEMIST 07/31/2018 1:51 PM Signed 82 year old male here for INACTIVATED INFLUENZA VACCINE. Season Patient is identified by name and date of : Yes [] CONTRAINDICATIONS color enhanced section Age less than 6 months? No Allergy to eggs, chicken, chicken feathers, or chicken dander? No Allergy to thimerosal (a preservative) or formaldehyde, gelatin? No History of severe reaction to any vaccine component or a previous dose of influenza vaccination? No History of Guillain-Rochester Syndrome within 6 weeks after a previous influenza vaccine? No Patient is not moderately or severely ill? No Current temperature greater or equal to 100.4F? No History of Bone Marrow Transplant prior 6 months or solid organ transplant in the past 3 months ? No History of fainting after a prior injection or medical procedure? No- ? If patient has fainted in the past, the CDC recommends sitting or lying down for 15 minutes after the vaccination. [] VERIFICATION color enhanced section Was the answer Yes for any of the above contraindications? No contraindications present. Acceptable to proceed with vaccine. Patient/guardian agrees the above answers are true to the best of their knowledge? Yes Flu vaccine information sheet given? Yes See immunization activity in [facility] for details of immunizations adminstered today. Patient age: [age] year old For The 8574-5532 Flu Season 6-35 months old: Fluzone 0.25 ml - IM (Preservative Free) 3 years of age: Fluzone 0.5 ml - IM (Preservative Free) 3 years and older: Fluzone 0.5 ml- IM-(with Preservatives) 65+ years old: 2-49 years old Fluzone High-Dose 0.5 ml - IM (Preservative Free) FLUMIST- intranasal REMEMBER: If patient is less than 9 years of age and this is the first vaccine of Influenza to be received in any flu season, they should receive a second dose in one months time. Referring Provider: RAH PEREZ [[id number]] Allergies As of Date: 07/31/2018 (No Known Allergies) Date Reviewed: 07/31/2018 Reviewed by: Julisa Paulson (Maria Isabel) MARIA ISABEL Tran - Fully Assessed Reason for Visit: Established Patient [175] Imm/Inj [58] Cmt: Flu Vaccine Reason For Visit History Recorded Primary Visit Diagnosis:CKD (chronic kidney disease) stage 3, GFR 30-59 ml/min (HCC) [N18.3] Other Visit Diagnoses:Anemia of chronic renal failure, stage 3 (moderate) (HCC) [N18.3, D63.1] Iron deficiency anemia, unspecified iron deficiency anemia type [D50.9] Need for vaccination [Z23] Order(s):[] influenza vaccine 180 mcg (Patients 65 years and older) (PF) (FLUZONE HIGH DOSE )Disp: Rfl: Follow-up and Disposition History Recorded Prescriptions as of 07/31/2018 Sig: FINASTERIDE 5 MG TABLET 1 tablet once daily. OMEGA 3 ORAL Take 1 capsule by mouth twice* ERGOCALCIFEROL (VITAMIN D2) 5* Take 50,000 Units by mouth on* ALLOPURINOL 300 MG TABLET once daily. DOXAZOSIN 8 MG TABLET daily at bedtime. LABETALOL 200 MG TABLET twice daily. LISINOPRIL 40 MG TABLET once daily. PRAVASTATIN 40 MG TABLET once daily. ASPIRIN 81 MG TABLET,DELAYED * 1 tablet(s) by mouth daily AMLODIPINE 5 MG TABLET Take 5 mg by mouth once daily. METRONIDAZOLE 250 MG TABLET 1 tablet three times daily. HYDRALAZINE 50 MG TABLET four times daily. Problem List As Of Date 07/31/2018 Noted Resolved Occlusion and stenosis of bilateral carotid art* Iron deficiency anemia [D50.9] INVALID FOR* Anemia of chronic kidney failure [N18.9, D63.1] INVALID FOR* CKD (chronic kidney disease) stage 3, GFR 30-59*INVALID FOR* Anemia of chronic renal failure, stage 3 (moder*INVALID FOR* Visit Notes: >> Julisa Paulson (Nylon Mender) Marc, WATER PURIFICATION CHEMIST SunJul 31, 2018 11:05 AM Status: Signed Est pt. Discuss recent lab results Julisa Tran LPN >> Julisa Paulson (Nylon Mender) Mrac, WATER PURIFICATION CHEMIST SunJul 31, 2018 11:32 AM Status: Signed Influenza virus vaccine given as ordered. Right deltiod Julisa Tran LPN Encounter Status:Closed by RAH PEREZ DO on 07/31/18 MARK ABS GR + CBC Collected: 07/17/2018 Status: F Source: [place] 11:19 AM [facility] REPOSITORY TYPE CODE TESTS RESULT OUT OF REFERENCE UNITS RANGE LAB WWBC 3.70-11.00 k/uL Mark WBC 5.31 LAB WRBC 4.20-6.00 m/uL Low Mark RBC 3.35 LAB WHGB 13.0-17.0 g/dL Low [place] Hemoglobin 9.7 LAB WHCT 39.0-51.0 % Low [place] Hematocrit 31.6 LAB WMCV 80.0-100.0 fL Mark MCV 94.3 LAB WMCH 26.0-34.0 pg [place] MCH 29.0 LAB WMCHC 30.5-36.0 g/dL [place] MCHC 30.7 LAB WRDW 11.5-15.0 % Mark RDW 13.7 LAB WPLT 150-400 k/uL [place] Platelet Cnt 176 LAB WMPV 9.0-12.7 fL [place] MPV 10.1 Result Comment: Test performed at: [address] [place] [address]. LAB ABGRAN 1.45-7.50 k/uL Absol Gran 4.32 Count MARK ABS GR + CBC Collected: 07/03/2018 Status: F Source: [place] 12:00 PM [facility] REPOSITORY TYPE CODE TESTS RESULT OUT OF REFERENCE UNITS RANGE LAB WWBC 3.70-11.00 k/uL Mark WBC 6.20 LAB WRBC 4.20-6.00 m/uL Low [place] RBC 3.49 LAB WHGB 13.0-17.0 g/dL Low [place] Hemoglobin 10.1 LAB WHCT 39.0-51.0 % Low [place] Hematocrit 33.3 LAB WMCV 80.0-100.0 fL [place] MCV 95.4 LAB WMCH 26.0-34.0 pg [place] MCH 28.9 LAB WMCHC 30.5-36.0 g/dL Low [place] MCHC 30.3 LAB WRDW 11.5-15.0 % Mark RDW 13.4 LAB WPLT 150-400 k/uL [place] Platelet Cnt 166 LAB WMPV 9.0-12.7 fL [place] MPV 10.6 Result Comment: Test performed at: [facility], [address] [place] [address] Rd[address] [place] [address]. LAB ABGRAN 1.45-7.50 k/uL Absol Gran 5.24 Count MARK ABS GR + CBC Collected: 06/19/2018 Status: F Source: [place] 10:49 AM [facility] REPOSITORY TYPE CODE TESTS RESULT OUT OF REFERENCE UNITS RANGE LAB WWBC 3.70-11.00 k/uL [place] WBC 5.14 LAB WRBC 4.20-6.00 m/uL Low [place] RBC 3.77 LAB WHGB 13.0-17.0 g/dL Low [place] Hemoglobin 11.0 LAB WHCT 39.0-51.0 % Low [place] Hematocrit 35.8 LAB WMCV 80.0-100.0 fL Mark MCV 95.0 LAB WMCH 26.0-34.0 pg [place] MCH 29.2 LAB WMCHC 30.5-36.0 g/dL [place] MCHC 30.7 LAB WRDW 11.5-15.0 % Mark RDW 14.4 LAB WPLT 150-400 k/uL [place] Platelet Cnt 168 LAB WMPV 9.0-12.7 fL Mark MPV 10.4 Result Comment: Test performed at: [facility], [address] [place] [address] Rd[address] [place] [address]. LAB ABGRAN 1.45-7.50 k/uL Absol Gran 4.29 Count MARK ABS GR + CBC Collected: 06/05/2018 Status: F Source: [place] 11:00 AM [facility] REPOSITORY TYPE CODE TESTS RESULT OUT OF REFERENCE UNITS RANGE LAB WWBC 3.70-11.00 k/uL [place] WBC 3.72 LAB WRBC 4.20-6.00 m/uL Low [place] RBC 3.23 LAB WHGB 13.0-17.0 g/dL Low [place] Hemoglobin 9.5 LAB WHCT 39.0-51.0 % Low [place] Hematocrit 30.9 LAB WMCV 80.0-100.0 fL [place] MCV 95.7 LAB WMCH 26.0-34.0 pg [place] MCH 29.4 LAB WMCHC 30.5-36.0 g/dL [place] MCHC 30.7 LAB WRDW 11.5-15.0 % Mark RDW 14.0 LAB WPLT 150-400 k/uL Low [place] Platelet Cnt 119 LAB WMPV 9.0-12.7 fL [place] MPV 10.7 LAB ABGRAN 1.45-7.50 k/uL Absol Gran Count 2.76 PROGRESS Observed: 05/25/2018 Status: COMPLETED Source: [place] 3:00 PM [facility] OTHER [facility]US REPOSITORY HNO ID: [id number] Author: Angel Medrano Service: (none) Author Type: Physician Type: Progress Notes Filed: 05/25/2018 3:05 PM Note Text: I see the patient back today for follow-up of his carotid endarterectomy that he had in the past. This patient really does not look like the same patient I saw a year ago. His appearance is disheveled and he is constantly rambling and it takes and incredible amount of time in this office visit to focus him on his symptoms and if he is having any symptoms which as best I can tell he does not have. One of the things I note is that Doug has lost quite a bit of weight and I try to inquire into this and he definitely diverges off into multiple different stories about why he feels his weight has dropped oftentimes not even focusing on the weight loss and just talking about other issues. He has no focal neurologic deficits but I am concerned about the patient's apparent disheveled appearance and rambling demeanor. on neurologic examination he is neurologically intact but again well oriented to person and place and even to the month of the year he is not completely oriented as to all of the different aspects of his care and what is happening at least he rambles into many different directions when I ask him questions about this. His carotids do have bruits but at this point in time I have also reviewed his ultrasound which shows really no significant issues especially with the site of his endarterectomy. In addition to his weight loss the patient also states that he has been having trouble with some anemia and lymphedema. Both of these are being followed here in [place]. At this point I am most concerned at this visit with regard to the patient's seeming deterioration of mental status and while he is not disoriented he certainly seems to have a great deal of flight of ideas and while we do spend a great deal of time in the office visit talking about different things I'm not sure I ever get a solid answer as to whether this is being addressed. From a vascular standpoint the patient be followed up in 1 year. I am going to make the patient's primary care doctor aware by means of a letter that he is having these issues.I spent 25 minutes in the visit, with more than 50% of the total [id number] time of the visit in counseling / coordination of care. [place] ABS GR + CBC Collected: 05/22/2018 Status: F Source: [place] 11:07 AM [facility] REPOSITORY TYPE CODE TESTS RESULT OUT OF REFERENCE UNITS RANGE LAB WWBC 3.70-11.00 k/uL [place] WBC 4.27 LAB WRBC 4.20-6.00 m/uL Low [place] RBC 3.45 LAB WHGB 13.0-17.0 g/dL Low Mrak Hemoglobin 10.2 LAB WHCT 39.0-51.0 % Low [place] Hematocrit 32.8 LAB WMCV 80.0-100.0 fL [place] MCV 95.1 LAB WMCH 26.0-34.0 pg [place] MCH 29.6 LAB WMCHC 30.5-36.0 g/dL [place] MCHC 31.1 LAB WRDW 11.5-15.0 % Mark RDW 14.3 LAB WPLT 150-400 k/uL Low [place] Platelet Cnt 116 LAB WMPV 9.0-12.7 fL [place] MPV 11.0 Result Comment: Test performed at: [facility], [address] [place] [address]. LAB ABGRAN 1.45-7.50 k/uL Absol Gran 3.30 Count CNOV Observed: 05/17/2018 Status: COMPLETED Source: [place] 9:15 AM [facility] OTHER CAMPUS REPOSITORY Office Visit (AGMIL) DOUG CAST ([id number]) 1935 [facility] Date Time Provider Department 05/17/18 9:15 AM ANGEL MEDRANO During your visit today, we recorded the following information about you: Pulse Respiration Blood pressure Weight 76/minute 18/minute 126/74 81.6 kg Height 1.727 m Angel Medrano MD 05/25/2018 3:05 PM Signed I see the patient back today for follow-up of his carotid endarterectomy that he had in the past. This patient really does not look like the same patient I saw a year ago. His appearance is disheveled and he is constantly rambling and it takes and incredible amount of time in this office visit to focus him on his symptoms and if he is having any symptoms which as best I can tell he does not have. One of the things I note is that Doug has lost quite a bit of weight and I try to inquire into this and he definitely diverges off into multiple different stories about why he feels his weight has dropped oftentimes not even focusing on the weight loss and just talking about other issues. He has no focal neurologic deficits but I am concerned about the patient's apparent disheveled appearance and rambling demeanor. on neurologic examination he is neurologically intact but again well oriented to person and place and even to the month of the year he is not completely oriented as to all of the different aspects of his care and what is happening at least he rambles into many different directions when I ask him questions about this. His carotids do have bruits but at this point in time I have also reviewed his ultrasound which shows really no significant issues especially with the site of his endarterectomy. In addition to his weight loss the patient also states that he has been having trouble with some anemia and lymphedema. Both of these are being followed here in [place]. At this point I am most concerned at this visit with regard to the patient's seeming deterioration of mental status and while he is not disoriented he certainly seems to have a great deal of flight of ideas and while we do spend a great deal of time in the office visit talking about different things I'm not sure I ever get a solid answer as to whether this is being addressed. From a vascular standpoint the patient be followed up in 1 year. I am going to make the patient's primary care doctor aware by means of a letter that he is having these issues.I spent 25 minutes in the visit, with more than 50% of the total buwg-lt-wpkp time of the visit in counseling / coordination of care. Referring Provider: VIJAY MASON [[id number]] Allergies As of Date: 05/17/2018 (No Known Allergies) Date Reviewed: 05/17/2018 Reviewed by: Angel Medrano - Fully Assessed Reason for Visit: Stenosis [1326] Cmt: Doug is here for follow up carotid stenosis. 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 OMEGA 3 ORAL Take 1 capsule by mouth twice* ERGOCALCIFEROL (VITAMIN D2) 5* Take 50,000 Units by mouth on* ALLOPURINOL 300 MG TABLET once daily. DOXAZOSIN 8 MG TABLET daily at bedtime. LABETALOL 200 MG TABLET twice daily. LISINOPRIL 40 MG TABLET once daily. PRAVASTATIN 40 MG TABLET once daily. METRONIDAZOLE 250 MG TABLET 1 tablet three times daily. HYDRALAZINE 50 MG TABLET four times daily. ASPIRIN 81 MG TABLET,DELAYED * 1 tablet(s) by mouth daily AMLODIPINE 5 MG TABLET Take 5 mg by mouth once daily. Problem List As Of Date 05/17/2018 Noted Resolved Occlusion and stenosis of bilateral carotid art* Iron deficiency anemia [D50.9] INVALID FOR* Anemia of chronic kidney failure [N18.9, D63.1] INVALID FOR* CKD (chronic kidney disease) stage 3, GFR 30-59*INVALID FOR* Anemia of chronic renal failure, stage 3 (moder*INVALID FOR* Disposition: Return in about 1 year (around 05/17/2019) for Carotid stenosis, Yearly check up with testing. Follow-up and Disposition History Recorded Letter Text Encounter Status:Closed by ANGEL MEDRANO MD on 05/25/18 CAROTID DUPLEX Observed: 05/08/2018 Status: F Source: [place] ULTRASOUND 11:[address] [facility] REPOSITORY [facility] Cardiovascular Services [address] [place] [address] Carotid Duplex Ultrasound 05/07/18 1001 MR#: [id number] Acct: [id number] Name: DOUG CAST Rep #: [id number] : 1935 82 From: Karthik Holloway MD Attending Dr: ANGEL MEDRANO MD Status: REG CLI Ordering Dr: Angel Medrano MD Date: 05/07/18 Location: [facility] Sex: M C Admitted: Reason For Study: Carotid stenosis Rt. Velocities/BP Lt. Velocities/BP Prox CCA 84.4/10.6 cm/sec. Prox CCA 86.2/12.3 cm/sec. Mid CCA 79.2/12.3 cm/sec. Mid CCA 91.5/13.5 cm/sec. Dist CCA 101.0/11.1 cm/sec. Dist CCA 90.9/11.7 cm/sec. Prox ICA 76.2/14.7 cm/sec. Prox ICA 104.0/17.0 cm/sec. Mid ICA 97.9/17.6 cm/sec. Mid ICA 101.0/19.6 cm/sec. Dist ICA 73.3/14.1 cm/sec. Dist ICA 90.4/13.7 cm/sec. Rt. ICA/CCA = 1.2. Lt. ICA/CCA = 1.1. Prox ECA 110.0/5.3 cm/sec. Prox ECA 98.5/0.0 cm/sec. Rt. Vert. 39.3/9.4 cm/sec. Lt. Vert. 67.4/12.9 cm/sec. Right Extracranial There is homogeneous, smooth atherosclerotic plaque noted in the right common carotid artery. There is homogeneous, smooth atherosclerotic plaque noted in the right internal carotid artery. There is intimal thickening but no significant atherosclerotic plaque noted in the right external carotid artery. Antegrade flow is noted in the right vertebral artery. Left Extracranial There is homogeneous, smooth atherosclerotic plaque noted in the left common carotid artery. There is intimal thickening but no significant atherosclerotic plaque noted in the left internal carotid artery. There is intimal thickening but no significant atherosclerotic plaque noted in the left external carotid artery. Antegrade flow is noted in the left vertebral artery. Procedure Carotid Duplex 23902. Exam performed in department. Interpretation Summary Mild (<50%) stenosis right extracranial internal carotid. Mild (<50%) stenosis left extracranial internal carotid. Flow within the vertebral arteries is antegrade bilaterally. Ordering Physician: ANGEL MEDRANO Referring Physician: Vijay Mason Performed By: Kerri Alvarez RVT 05/08/18 1113 Date Karthik Holloway MD CC: ANGEL MEDRANO MD; Vijay Mason MD Date Dictated: 05/07/18 1001 Date Transcribed: 05/08/18 1113 Safety Leader: Signed MARK ABS GR + CBC Collected: 05/08/2018 Status: F Source: [place] 11:11 AM [facility] REPOSITORY TYPE CODE TESTS RESULT OUT OF REFERENCE UNITS RANGE LAB WWBC 3.70-11.00 k/uL Low [place] WBC 3.38 LAB WRBC 4.20-6.00 m/uL Low [place] RBC 3.37 LAB WHGB 13.0-17.0 g/dL Low [place] Hemoglobin 10.0 LAB WHCT 39.0-51.0 % Low Mark Hematocrit 31.9 LAB WMCV 80.0-100.0 fL [place] MCV 94.7 LAB WMCH 26.0-34.0 pg [place] MCH 29.7 LAB WMCHC 30.5-36.0 g/dL [place] MCHC 31.3 LAB WRDW 11.5-15.0 % Mark RDW 13.5 LAB WPLT 150-400 k/uL Low [place] Platelet Cnt 114 LAB WMPV 9.0-12.7 fL [place] MPV 10.5 Result Comment: Test performed at: [facility], [address] [place] [address] Rd[address] [place] [address]. LAB ABGRAN 1.45-7.50 k/uL Absol Gran 2.64 Count IRON AND TIBC Collected: 04/24/2018 Status: F Source: [place] 11:17 AM [facility] REPOSITORY TYPE CODE TESTS RESULT OUT OF REFERENCE UNITS RANGE LAB IRN 41-186 ug/dL Low Iron 34 LAB TIBC 232-386 ug/dL Low TIBC 168 LAB SAT 15-57 % Transferrin Saturatn 20 Performed By: #### IRON, FERR #### [facility] [address] [address] FERRITIN Collected: 04/24/2018 Status: F Source: [place] 11:17 AM [facility] REPOSITORY TYPE CODE TESTS RESULT OUT OF REFERENCE UNITS RANGE LAB FERR 30.3-565.7 ng/mL Ferritin 348.0 Performed By: #### IRON, FERR #### [facility] [address] [address] MARK CBC AND DIFF Collected: 04/24/2018 Status: F Source: [place] 11:16 AM [facility] REPOSITORY TYPE CODE TESTS RESULT OUT OF REFERENCE UNITS RANGE LAB WWBC 3.70-11.00 k/uL Low [place] WBC 3.58 LAB WRBC 4.20-6.00 m/uL Low [place] RBC 3.43 LAB WHGB 13.0-17.0 g/dL Low [place] Hemoglobin 10.2 LAB WHCT 39.0-51.0 % Low [place] Hematocrit 32.8 LAB WMCV 80.0-100.0 fL [place] MCV 95.6 LAB WMCH 26.0-34.0 pg [place] MCH 29.7 LAB WMCHC 30.5-36.0 g/dL [place] MCHC 31.1 LAB WRDW 11.5-15.0 % [place] RDW 13.3 LAB WPLT 150-400 k/uL Low [place] Platelet Cnt 109 LAB WMPV 9.0-12.7 fL Mark MPV 10.9 Result Comment: Test performed at: [facility], [address] [place] [address]. LAB WNEUT % Mark Neut% 70.3 LAB WLYMP % [place] Lymp% 15.1 LAB WMONOC % [place]% 8.4 LAB WEOS % [place] Eos% 5.9 LAB WBASO % [place] Baso% 0.3 LAB WANEUT 1.45-7.5 k/uL 0 Mark Abs Neut 2.52 LAB WALYMP 1.00-4.0 k/uL Low 0 [place] Abs Lymp 0.54 LAB WAMONO <0.87 k/uL [place] Abs [place] 0.30 LAB WAEOS <0.46 k/uL Mark Abs Eos 0.21 LAB WABASO <0.11 k/uL [place] Abs Baso <0.03 DOWNTIME REPORT Observed: 04/18/2018 Status: F Source: [place] 1:[address] [facility] REPOSITORY [facility] Medical Records Department [address] [address] Downtime Report MR#: [id number] Acct: [id number] Name: DOUG CAST Brittani Rep #: [id number] : 1935 82 From: Harpreet Ma PCP: Status: REG CLI This patient was seen during an EMR downtime April 01, 2018 - April 08, 2018. This patient may have a combination of paper and electronic documentation or all paper documentation. All documentation is viewable within the e-chart portion of [facility] for each patient visit. MARK ABS GR + CBC Collected: 04/10/2018 Status: F Source: [place] 10:52 AM [facility] REPOSITORY TYPE CODE TESTS RESULT OUT OF REFERENCE UNITS RANGE LAB WWBC 3.70-11.00 k/uL [place] WBC 3.93 LAB WRBC 4.20-6.00 m/uL Low [place] RBC 3.71 LAB WHGB 13.0-17.0 g/dL Low [place] Hemoglobin 11.0 LAB WHCT 39.0-51.0 % Low Mark Hematocrit 36.0 LAB WMCV 80.0-100.0 fL [place] MCV 97.0 LAB WMCH 26.0-34.0 pg [place] MCH 29.6 LAB WMCHC 30.5-36.0 g/dL Mark MCHC 30.6 LAB WRDW 11.5-15.0 % Mark RDW 13.2 LAB WPLT 150-400 k/uL Low [place] Platelet Cnt 111 LAB WMPV 9.0-12.7 fL [place] MPV 11.3 Result Comment: Test performed at: [facility], [address] [place] [address]. LAB ABGRAN 1.45-7.50 k/uL Absol Gran 2.93 Count Observed: 04/05/2018 Status: F Source: [place] CULTURE, DEEP WOUND 9:00 [facility] REPOSITORY RESULT(S) PREVIOUSLY REPORTED ON MANUAL REQUISITION DURING DOWNTIME. Gram Stain Gram Stain No organisms seen Wound Culture ORGANISM 1: Corynebacterium striatum Amount Growth 3+ ORGANISM 2: Achromobacter xylosoxidans Amount Growth 1+ Achromobacter xylosoxidans: REACTION Ceftazidime *NF 8 S Ceftriaxone $ >=64 R Ciprofloxacin $ >=4 R Gentamicin $ >=16 R Imipenem *NF 1 S Levofloxacin $ >=8 R Piperacillin/Tazobactam $$ >=128 R Tobramycin $ >=16 R Trimethoprim/Sulfametho $ 160 R (NF) indicates non-formulary drug at [facility]. Approval by Infectious Disease Specialist required before non-formulary drugs may be ordered and/or dispensed. Cult, Anaerobic No anaerobic bacteria isolated. Performed By: #### M100.1500 #### [facility] [address] [place], [address] C[place]BAR ABS GR + CBC Collected: 03/27/2018 Status: F Source: [place] 11:01 AM [facility] REPOSITORY TYPE CODE TESTS RESULT OUT OF REFERENCE UNITS RANGE LAB WWBC 3.70-11.00 k/uL [place] WBC 4.88 LAB WRBC 4.20-6.00 m/uL Low Mark RBC 3.51 LAB WHGB 13.0-17.0 g/dL Low [place] Hemoglobin 10.5 LAB WHCT 39.0-51.0 % Low [place] Hematocrit 34.6 LAB WMCV 80.0-100.0 fL [place] MCV 98.6 LAB WMCH 26.0-34.0 pg Mark MCH 29.9 LAB WMCHC 30.5-36.0 g/dL Low Mark MCHC 30.3 LAB WRDW 11.5-15.0 % [place] RDW 13.3 LAB WPLT 150-400 k/uL Low [place] Platelet Cnt 138 LAB WMPV 9.0-12.7 fL Mark MPV 10.5 Result Comment: Test performed at: [facility], [address] [place] [address]. LAB ABGRAN 1.45-7.50 k/uL Absol Gran 4.02 Count Observed: 03/15/2018 Status: F Source: [place] CULTURE, DEEP WOUND 11:[address] [facility] REPOSITORY Comments: LLE ULCER Gram Stain Gram Stain Rare Epithelial cells No White Blood Cells Rare Gram negative rods 1+ Gram positive cocci Wound Culture #3 Gram positive collin suggestive of a diptheroid. There are no CLSI standards for interpretation of this Drug/Organism combination. ORGANISM 1: Pseudomonas aeroginosa Amount Growth 2+ ORGANISM 2: Staphylococcus aureus Amount Growth 1+ ORGANISM 3: Gram positive collin Amount Growth 3+ Pseudomonas aeroginosa: REACTION Cefepime $ 8 S Ceftazidime *NF 4 S Ciprofloxacin $ 0.5 S Gentamicin $ 4 S Imipenem *NF 1 S Levofloxacin $ 1 S Piperacillin/Tazobactam $$ 8 S Tobramycin $ <=1 S (NF) indicates non-formulary drug at [facility]. Approval by Infectious Disease Specialist required before non-formulary drugs may be ordered and/or dispensed. Staphylococcus aureus: REACTION Benzylpenicillin NF >=0.5 R Cefoxitin *NF - Clindamycin $$ <=0.25 R Inducable Clindamycin Res[place] + Erythromycin $ 4 R Gentamicin $ <=0.5 S Levofloxacin $ 0.25 S Linezolid $$$$ 2 S Moxifloxicin *NF <=0.25 S Oxacillin NF 0.5 S Tigecycline $$$$ 0.25 S Rifampin $$ <=0.5 S Tetracycline NF <=1 S Trimethoprim/Sulfametho $ <=10 S Vancomycin $ <=0.5 S (NF) indicates non-formulary drug at [facility]. Approval by Infectious Disease Specialist required before non-formulary drugs may be ordered and/or dispensed. * CLSI guidelines does not recommend testing of cephalosporins. This interpretation is deduced from Beta-lactam/penicillin results. Cult, Anaerobic No anaerobic bacteria isolated. Performed By: #### M100.1500 #### [facility] [address] [place], [address] CINEBAR ABS GR + CBC Collected: 03/13/2018 Status: F Source: [place] 11:13 AM [facility] REPOSITORY TYPE CODE TESTS RESULT OUT OF REFERENCE UNITS RANGE LAB WWBC 3.70-11.00 k/uL Low Mark WBC 3.24 LAB WRBC 4.20-6.00 m/uL Low [place] RBC 3.68 LAB WHGB 13.0-17.0 g/dL Low [place] Hemoglobin 11.0 LAB WHCT 39.0-51.0 % Low [place] Hematocrit 36.6 LAB WMCV 80.0-100.0 fL [place] MCV 99.5 LAB WMCH 26.0-34.0 pg [place] MCH 29.9 LAB WMCHC 30.5-36.0 g/dL Low [place] MCHC 30.1 LAB WRDW 11.5-15.0 % [place] RDW 15.0 LAB WPLT 150-400 k/uL Low [place] Platelet Cnt 102 LAB WMPV 9.0-12.7 fL [place] MPV 10.3 Result Comment: Test performed at: [facility], [address] [place] [address]. LAB ABGRAN 1.45-7.50 k/uL Absol Gran 2.45 Count BASIC METABOLIC Collected: 03/01/2018 Status: F Source: [place] PROFILE (BMP) 1:[address] [facility] REPOSITORY TYPE CODE TESTS RESULT OUT OF RANGE REFERENCE UNITS LAB L501.0100 74-106 mg/dL Normal GLU 91 Result Comment: Please note revised GLUCOSE reference range effective 2017. LAB L501.1000 7-18 mg/dL High BUN 23 LAB L501.1100 0.70-1.30 mg/dL High CREAT,SERUM 1.41 Result Comment: The validity of the calculated GFR AND GFRAA in patients over 70 years has not been determined. Clinical correlation is essential. LAB L501.1110 >60 mL/min Low EST GFR 51 Result Comment: Non- GFR Calc LAB L501.1115 >60 mL/min Normal EST GFR - AA 62 Result Comment: GFR Calc LAB L501.1300 10-20 RATIO Normal BUN/CRE 16.3 LAB L501.2200 8.5-10.1 mg/dL Low CA 8.2 LAB L501.5300 136-145 mmol/L NA Normal 145 LAB L501.5600 3.5-5.1 mmol/L K Normal 4.3 LAB L501.5900 98-107 mmol/L High CL 112 LAB L501.6100 21.0-32.0 mmol/L Normal CO2 28.0 LAB L501.6200 5-15 Normal GAP 5 Performed By: #### L500.2500 #### [facility] [address] [place], [address] VITAMIN D,25 HYDROXY Collected: 03/01/2018 Status: F Source: [place] 1:[address] [facility] REPOSITORY TYPE CODE TESTS RESULT OUT OF RANGE REFERENCE UNITS LAB L506.1000 29.95-100.01 ng/mL Normal Vitamin D 76.4 25-OH Result Comment: Vitamin D 25(OH) Status Range Deficiency <20 ng/mL (50nmol/L) Insuffciency 20 - 30 ng/mL (50 - 75 nmol/L) Sufficiency 30 - 100 ng/mL (75 - 250 nmol/L) Toxicity >100 ng/mL (>250 nmol/L) Performed By: #### L506.1000 #### [facility] [address] [place], [address] CBC W/DIFF, AUTOMATED Collected: 03/01/2018 Status: F Source: [place] 1:[address] [facility] REPOSITORY TYPE CODE TESTS RESULT OUT OF RANGE REFERENCE UNITS LAB L100.1000 4.4-11.0 K/mm3 Low WBC 3.1 LAB L100.1200 4.6-6.2 M/mm3 Low RBC 3.31 LAB L100.1300 13.0-16.5 g/dl Low HGB 9.8 LAB L100.1400 40-54 % Low HCT 32.6 LAB L100.1500 80-94 fL High MCV 98.5 LAB L100.1600 27.0-32.0 pg Normal MCH 29.6 LAB L100.1700 32-36 g/gl Low MCHC 30.1 LAB L100.1810 11.6-14.6 % Normal RDW CV 14.4 LAB L100.1820 35.1-43.9 fl High RDW SD 50.0 LAB L100.1900 150-450 K/mm3 Low PLT 101 LAB L100.2000 6.2-12.0 fl Normal MPV 12.0 LAB L100.2100 47-70 % High NEUT% 73.4 LAB L100.2200 19-41 % Low LY% 16.6 LAB L100.2300 0-10 % Normal MONO% 5.5 LAB L100.2400 0-5 % Normal EO% 4.2 LAB L100.2500 0-1 % Normal BASO% 0.0 LAB L100.2550 0.0-0.9 % Normal IM GRAN % 0.300 Result Comment: IG% - Immature Granulocytes (promyelocytes, myelocytes and metamyelocytes) > 1% indicates that a LEFT SHIFT is Present. LAB L100.2620 2.0-7.7 X10 3/uL Normal Absolute Neut 2.3 LAB L100.2720 0.83-4.51 X10 3/ul Low Absolute Lymph 0.51 LAB L100.4500 Normal SMEAR COMMENT SCANNED LAB L100.5500 ADEQ Normal PLT EST MOD DEC Performed By: #### L100.0100 #### [facility] [address] [place], [place], [address] CINEBAR ABS GR + CBC Collected: 02/27/2018 Status: F Source: [place] 10:50 AM [facility] REPOSITORY TYPE CODE TESTS RESULT OUT OF REFERENCE UNITS RANGE LAB WWBC 3.70-11.00 k/uL Mark WBC 3.97 LAB WRBC 4.20-6.00 m/uL Low [place] RBC 3.08 LAB WHGB 13.0-17.0 g/dL Low [place] Hemoglobin 9.3 LAB WHCT 39.0-51.0 % Low Mark Hematocrit 30.7 LAB WMCV 80.0-100.0 fL Mark MCV 99.7 LAB WMCH 26.0-34.0 pg Mark MCH 30.2 LAB WMCHC 30.5-36.0 g/dL Low [place] MCHC 30.3 LAB WRDW 11.5-15.0 % [place] RDW 14.5 LAB WPLT 150-400 k/uL Low Mark Platelet Cnt 100 LAB WMPV 9.0-12.7 fL Mark MPV 11.3 Result Comment: Test performed at: [facility], [address] [place] [address] Rd[address] [place] [address]. LAB ABGRAN 1.45-7.50 k/uL Absol Gran 2.71 Count MARK ABS GR + CBC Collected: 02/13/2018 Status: F Source: [place] 11:50 AM [facility] REPOSITORY TYPE CODE TESTS RESULT OUT OF REFERENCE UNITS RANGE LAB WWBC 3.70-11.00 k/uL Low Mark WBC 3.53 LAB WRBC 4.20-6.00 m/uL Low [place] RBC 3.34 LAB WHGB 13.0-17.0 g/dL Low Mark Hemoglobin 10.0 LAB WHCT 39.0-51.0 % Low Mark Hematocrit 32.9 LAB WMCV 80.0-100.0 fL [place] MCV 98.5 LAB WMCH 26.0-34.0 pg Mark MCH 29.9 LAB WMCHC 30.5-36.0 g/dL Low Mark MCHC 30.4 LAB WRDW 11.5-15.0 % Mark RDW 14.4 LAB WPLT 150-400 k/uL Low [place] Platelet Cnt 103 LAB WMPV 9.0-12.7 fL [place] MPV 11.8 Result Comment: Test performed at: [facility], [address] [place] [address]. LAB ABGRAN 1.45-7.50 k/uL Absol Gran 2.83 Count PROGRESS Observed: 01/30/2018 Status: COMPLETED Source: [place] 10:57 AM [facility] REPOSITORY HNO ID: [id number] Author: Rah Perez Service: (none) Author Type: Physician Type: Progress Notes Filed: 01/30/2018 11:06 AM Note Text: Diagnosis: 1) Anemia. HPI: The patient is a 82 yo male who has a PMH significant for PVD (L and R CEA), CKD ( ), gout, lymphedema of the legs, HTN, stroke (1999; right arm paresis--all symptoms resolved except little finger), lumbar stenosis, renal lithiasis and hyperlipidemia. Patient has a history of anemia and mild thrombocytopenia. He also underwent a workup for chronic kidney disease which culminated in a renal biopsy last May. However the patient's not quite certain what the results of that were. Most recent CBC showed hemoglobin 9.4 g/dL. White count was borderline low at 4000. Differential was unremarkable. Platelet count was 137,000. He didn't have any bleeding issues. He has significant lower extremity edema/lymphedema. Pain in both legs at night. He is under the care of the wound center and undergoes lymphatic pumping as well as wraps. He does this himself at home. Presents for ongoing hematologic management. Interim history: Receiving Aranesp when Hgb below 10 g/dl. It has been helping him--not short of breath at rest. DELCID only after stairs in the morning--rest of day no DELCID. No chest pain/pressure or tightness. No unusual bleeding or unexplained bruising. PMH, medications and allergies as below personally reviewed by me today. Any changes documented in appropriate section. ROS: Constitutional: Denies episodes of fever and night sweats. Not significantly fatigued. Normal appetite. Neuro: Denies URBINA, vertigo, dizziness. Occasional imbalance leading to a fall--has happened twice in the past. Denies symptoms of neuropathy. HEENT: No recent change in voice, vision or hearing. Resp: Denies cough, wheeze and hemoptysis. CVS: Denies PND, orthopnea. Stable chronic LE lymphedema. GI: Denies dysgeusia. Denies symptoms of stomatitis. Denies dysphagia and odynophagia. Denies reflux, n/v, change in bowel habits and abdominal pain. : Denies dysuria or gross hematuria. No symptoms of bladder outlet obstruction. Endo: Denies hot flashes. Denies polyuria and polydipsia. Denies heat and cold intolerance. Musculoskeletal: Denies bone, back, joint and muscular pain. Derm: Denies rash. Denies jaundice and diffuse pruritis. Heme: See above. Psych: Normal mood. PHYSICAL EXAM: Vitals: There were no vitals taken for this visit. Well-appearing and in no acute distress. EYES: Sclerae are anicteric bilaterally. NECK: Supple. LYMPHATIC: There is no palpable cervical, supraclavicular adenopathy. RESPIRATORY: Inspiratory breath sounds are of normal intensity in all xie. No rales, wheezes or rhonchi. CARDIOVASCULAR: Rhythm is regular. Normal intensity S1/S2. There is no gallop or murmur. ABDOMEN: The abdomen is nondistended. Extremities: Stable edema from knees down both LEs SKIN: No jaundice or rash. No petechiae. 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 No focal motor weakness. MUSCULOSKELETAL: No muscle wasting. ASSESSMENT/PLAN: (D64.9) Anemia, unspecified type (primary encounter diagnosis) (N18.3) CKD (chronic kidney disease) stage 3, GFR 30-59 ml/min Assessment: -Tolerating and benefiting well from Aranesp. Has only required 2 injections in last 6 months. -Maintaining appropriate iron levels. Plan: -Will continue every other week CBC/possible Aranesp. Rah Perez, MARK ABS GR + CBC Collected: 01/30/2018 Status: F Source: [place] 10:38 AM [facility] REPOSITORY TYPE CODE TESTS RESULT OUT OF REFERENCE UNITS RANGE LAB WWBC 3.70-11.00 k/uL [place] WBC 6.30 LAB WRBC 4.20-6.00 m/uL Low [place] RBC 3.55 LAB WHGB 13.0-17.0 g/dL Low Mark Hemoglobin 10.5 LAB WHCT 39.0-51.0 % Low Mark Hematocrit 34.9 LAB WMCV 80.0-100.0 fL Mark MCV 98.3 LAB WMCH 26.0-34.0 pg [place] MCH 29.6 LAB WMCHC 30.5-36.0 g/dL Low Mark MCHC 30.1 LAB WRDW 11.5-15.0 % Mark RDW 14.6 LAB WPLT 150-400 k/uL [place] Platelet Cnt 195 LAB WMPV 9.0-12.7 fL [place] MPV 10.0 Result Comment: Test performed at: [facility] Mark, [address] [place] [address]. LAB ABGRAN 1.45-7.50 k/uL Absol Gran 5.23 Count MARK LOVETT BMP Collected: 01/30/2018 Status: F Source: [place] 10:38 AM [facility] REPOSITORY TYPE CODE TESTS RESULT OUT OF REFERENCE UNITS RANGE LAB NAWB 135-146 mmol/L Sodium, Whole 144 Bld LAB K1WB 3.5-5.0 mmol/L Potassium,Who 4.3 le Bld LAB CLWB 98-110 mmol/L Chloride, 106 Whole Bld LAB ICAWB 1.08-1.30 mmol/L Ionized 1.18 Calcium, WB Result Comment: Please note: This value represents ionized calcium not total calcium. LAB CO2WB 23-32 mmol/L TCO2, Whole Blood 27 LAB GLUWB 65-100 mg/dL Glucose, Whole Bld 99 LAB BUNWB 10-25 mg/dL BUN, Whole Blood 22 LAB BCRET 0.70-1.40 mg/dL High Creatinine,Wh ole Bld 1.70 LAB AGAPWB 0-15 mmol/L Anion Gap, Whole Bld 11 LAB GFRAA eGFR- Amer. 47 LAB GFRNAA . eGFR-All Other Races 39 Result Comment: eGFR (Estimated GFR) Units of measure: mL/min/1.73 meters squared eGFR is derived from the reexpressed MDRD Study equation using the following parameters: serum creatinine, age, gender and race. The creatinine assay has been calibrated to be traceable to IDMS. An eGFR <60 mL/min/1.73m2 for >3 months is consistent with chronic kidney disease. Refer to KDOQI guidelines for clinical interpretation. In patients with unstable renal function, e.g. those with acute kidney injury, the eGFR may not accurately reflect actual GFR. CNOVSP Observed: 01/30/2018 Status: COMPLETED Source: [place] 10:30 AM [facility] REPOSITORY Visit (SP) Office (DAVID) VASAS,DOUG ([id number]) 1935 [address] [facility] Date Time Provider Department 01/30/18 10:30 AM RAH PEREZ During your visit today, we recorded the following information about you: Julisa Paulson MARIA ISABEL Tran, MARIA ISABEL 01/30/2018 10:59 AM Signed Est pt, discuss recent lab results 6 month f/u Julisa MARIA ISABEL Garcia DO 01/30/2018 11:06 AM Signed Diagnosis: 1) Anemia. HPI: The patient is a 82 yo male who has a PMH significant for PVD (L and R CEA), CKD ( ), gout, lymphedema of the legs, HTN, stroke (1999; right arm paresis--all symptoms resolved except little finger), lumbar stenosis, renal lithiasis and hyperlipidemia. Patient has a history of anemia and mild thrombocytopenia. He also underwent a workup for chronic kidney disease which culminated in a renal biopsy last May. However the patient's not quite certain what the results of that were. Most recent CBC showed hemoglobin 9.4 g/dL. White count was borderline low at 4000. Differential was unremarkable. Platelet count was 137,000. He didn't have any bleeding issues. He has significant lower extremity edema/lymphedema. Pain in both legs at night. He is under the care of the wound center and undergoes lymphatic pumping as well as wraps. He does this himself at home. Presents for ongoing hematologic management. Interim history: Receiving Aranesp when Hgb below 10 g/dl. It has been helping him--not short of breath at rest. DELCID only after stairs in the morning--rest of day no DELCID. No chest pain/pressure or tightness. No unusual bleeding or unexplained bruising. PMH, medications and allergies as below personally reviewed by me today. Any changes documented in appropriate section. ROS: Constitutional: Denies episodes of fever and night sweats. Not significantly fatigued. Normal appetite. Neuro: Denies URBINA, vertigo, dizziness. Occasional imbalance leading to a fall--has happened twice in the past. Denies symptoms of neuropathy. HEENT: No recent change in voice, vision or hearing. Resp: Denies cough, wheeze and hemoptysis. CVS: Denies PND, orthopnea. Stable chronic LE lymphedema. GI: Denies dysgeusia. Denies symptoms of stomatitis. Denies dysphagia and odynophagia. Denies reflux, n/v, change in bowel habits and abdominal pain. : Denies dysuria or gross hematuria. No symptoms of bladder outlet obstruction. Endo: Denies hot flashes. Denies polyuria and polydipsia. Denies heat and cold intolerance. Musculoskeletal: Denies bone, back, joint and muscular pain. Derm: Denies rash. Denies jaundice and diffuse pruritis. Heme: See above. Psych: Normal mood. PHYSICAL EXAM: Vitals: There were no vitals taken for this visit. Well-appearing and in no acute distress. EYES: Sclerae are anicteric bilaterally. NECK: Supple. LYMPHATIC: There is no palpable cervical, supraclavicular adenopathy. RESPIRATORY: Inspiratory breath sounds are of normal intensity in all xie. No rales, wheezes or rhonchi. CARDIOVASCULAR: Rhythm is regular. Normal intensity S1/S2. There is no gallop or murmur. ABDOMEN: The abdomen is nondistended. Extremities: Stable edema from knees down both LEs SKIN: No jaundice or rash. No petechiae. 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 No focal motor weakness. MUSCULOSKELETAL: No muscle wasting. ASSESSMENT/PLAN: (D64.9) Anemia, unspecified type (primary encounter diagnosis) (N18.3) CKD (chronic kidney disease) stage 3, GFR 30-59 ml/min Assessment: -Tolerating and benefiting well from Aranesp. Has only required 2 injections in last 6 months. -Maintaining appropriate iron levels. Plan: -Will continue every other week CBC/possible Aranesp. Rah Perez DO Referring Provider: RAH PEREZ [[id number]] Allergies As of Date: 01/30/2018 (No Known Allergies) Date Reviewed: 01/30/2018 Reviewed by: Rah Perez - Fully Assessed Reason for Visit: Established Patient [[id number]] Primary Visit Diagnosis:Anemia of chronic renal failure, stage 3 (moderate) [N18.3, D63.1] Other Visit Diagnosis:CKD (chronic kidney disease) stage 3, GFR 30-59 ml/min [N18.3] Follow-up and Disposition History Recorded Prescriptions as of 01/30/2018 Sig: FINASTERIDE 5 MG TABLET 1 tablet once daily. LEVOFLOXACIN 750 MG TABLET 1 tablet three times daily. METRONIDAZOLE 250 MG TABLET 1 tablet three times daily. OMEGA 3 ORAL Take 1 capsule by mouth twice* ERGOCALCIFEROL (VITAMIN D2) 5* Take 50,000 Units by mouth on* ALLOPURINOL 300 MG TABLET once daily. DOXAZOSIN 8 MG TABLET daily at bedtime. HYDRALAZINE 50 MG TABLET four times daily. LABETALOL 200 MG TABLET twice daily. LISINOPRIL 40 MG TABLET once daily. PRAVASTATIN 40 MG TABLET once daily. ASPIRIN 81 MG TABLET,DELAYED * 1 tablet(s) by mouth daily AMLODIPINE 5 MG TABLET Take 5 mg by mouth once daily. 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 REPOSITORY TYPE CODE TESTS RESULT OUT OF REFERENCE UNITS RANGE LAB L506.0500 20.0-40.0 mg/dL Low PREALBUMIN 7.0 Performed By: #### L506.0500 #### [facility] [address] [place], [address] CBC W/DIFF, AUTOMATED Collected: 01/25/2018 Status: F Source: [place] 12:[address] [facility] REPOSITORY TYPE CODE TESTS RESULT OUT OF RANGE REFERENCE UNITS LAB L100.1000 4.4-11.0 K/mm3 Normal WBC 5.8 LAB L100.1200 4.6-6.2 M/mm3 Low RBC 3.74 LAB L100.1300 13.0-16.5 g/dl Low HGB 11.0 LAB L100.1400 40-54 % Low HCT 35.8 LAB L100.1500 80-94 fL High MCV 95.7 LAB L100.1600 27.0-32.0 pg Normal MCH 29.4 LAB L100.1700 32-36 g/gl Low MCHC 30.7 LAB L100.1810 11.6-14.6 % Normal RDW CV 14.2 LAB L100.1820 35.1-43.9 fl High RDW SD 48.7 LAB L100.1900 150-450 K/mm3 Normal PLT 181 LAB L100.2000 6.2-12.0 fl Normal MPV 10.3 LAB L100.2100 47-70 % High NEUT% 83.9 LAB L100.2200 19-41 % Low LY% 8.5 LAB L100.2300 0-10 % Normal MONO% 6.7 LAB L100.2400 0-5 % Normal EO% 0.7 LAB L100.2500 0-1 % Normal BASO% 0.0 LAB L100.2550 0.0-0.9 % Normal IM GRAN % 0.200 Result Comment: IG% - Immature Granulocytes (promyelocytes, myelocytes and metamyelocytes) > 1% indicates that a LEFT SHIFT is Present. LAB L100.2620 2.0-7.7 X10 3/uL Normal Absolute Neut 4.9 LAB L100.2720 0.83-4.51 X10 3/ul Low Absolute Lymph 0.49 LAB L100.4500 SMEAR Normal COMMENT Result Comment: LYMPHOPENIA NOTED Performed By: #### L100.0100 #### [facility] [address] [place], [address] WOUND CTR HISTORY Observed: 01/25/2018 Status: F Source: [facility] 11:51 AM [facility] REPOSIT[facility] [address] [place] [address] Wound Ctr History AND Physical 01/25/18 1141 MR#: [id number] Acct: [id number] Name: DOUG CAST Brittani Rep #: [id number] : 1935 82 From: Tena [employer] PCP: Vijay Mason Status: REG RCR Y Location: WC (1) MRSA (methicillin resistant Staphylococcus aureus) infection Status: Acute Current Visit: Yes Code(s): A49.02 - Methicillin resistant Staphylococcus aureus infection, unspecified site (2) Malnutrition Status: Acute Current Visit: Yes Code(s): E46 - Unspecified protein-calorie malnutrition (3) Wound infection Status: Acute Current Visit: Yes Code(s): T14.8XXA - Other injury of unspecified body region, initial encounter; L08.9 - Local infection of the skin and subcutaneous tissue, unspecified (4) CKD (chronic kidney disease), stage III Status: Chronic Current Visit: Yes (5) Cellulitis Status: Chronic Current Visit: Yes Code(s): L03.90 - Cellulitis, unspecified (6) Lymphedema of lower extremity Status: Chronic Current Visit: Yes Qualifiers: Code(s): I89.0 - Lymphedema, not elsewhere classified (7) Nonstaphylococcal scalded skin syndrome Status: Chronic Current Visit: Yes Code(s): L53.8 - Other specified erythematous conditions History of Present Illness Date of Service: 01/25/18 Chief Complaint: Lymphedema legs, ruptured blister R great toe History of Wound: 82-year-old white male who has history of lymphedema and 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 Patient was last seen on for basically around the same thing. Patient has pumps at home he does use twice daily. Time patient complains that it is not only his lower leg but the sole of his foot that has developed a open ulcer. Patient complains that the drainage of clear fluid from his left leg is so much that it puddles all over his house which he finds annoying. So now he has developed cellulitis in the left lower leg with increased swelling and lymphedema. Patient has been soaking his foot and leg and a tub water but not Epson salt. We will be checking his pre- albumin and we did cultures today also will order him antibiotics because he finally has an infection and start him on levofloxacin cassettes when he was on last time and metronidazole because he did have anaerobes the last time. Past Medical History Past Medical History: Chronic Problems Cellulitis (Chronic) Lymphedema of lower extremity (Chronic) Nephrolithiasis (Chronic) Gout (Chronic) CKD (chronic kidney disease), stage III (Chronic) BPH (benign prostatic hyperplasia) (Chronic) Benign hypertension (Chronic) Anemia (Chronic) Chronic renal insufficiency, stage III (moderate) (Chronic) Nonstaphylococcal scalded skin syndrome (Chronic) Arthritis (Chronic) Past Medical History: Scalded skin syndrome left lower leg Surgical History: noncontributory Allergies/Adverse Reactions: Allergies No Known Allergies Allergy (Verified 04/13/17 14:20) Home Medications: Ambulatory Orders Medication Instructions Recorded Allopurinol 300 mg PO DAILY 10/10/16 Cholecalciferol (Vitamin D3) 50,000 unit PO BURGOS 10/10/16 [Vitamin D3] Doxazosin Mesylate 8 mg PO DAILY 10/10/16 - Family History Paternal Diabetes Maternal Heart Disease Lives: With Family Smoking Status: Never smoker Alcohol: None Drugs: None Review of Systems Constitutional: Denies: Chills, Fever Eyes: Denies: Blurred vision, Drainage, Pain HEENT: Denies: Difficulty Hearing, Difficulty Swallowing, Sore Throat, Visual Changes Cardiovascular: Denies: Chest Pain, Palpitations, Syncope Respiratory: Denies: Cough, Shortness of Breath Gastrointestinal: Denies: Abdominal Pain, Nausea, Vomiting Genitourinary: Denies: Dysuria, Frequency Musculoskeletal: Denies: Joint Pain, Muscle pain Skin: Reports: - - Altered syndrome to left lower leg. Denies: Jaundice, Rash Neurological: Denies: Balance problems, Change in Speech, Difficulty swallowing, Focal weakness Psychiatric: Denies: Anxiety, Depression Endocrine: Denies: Change in Body Habitus Hematologic/ Lymphatic: Denies: Adenopathy - Physical Exam Vital Signs Temp Pulse Resp BP 96.2 F L 67 18 168/87 H 01/25/18 10:11 01/25/18 10:11 01/25/18 10:11 01/25/18 10:11 General: Oriented x3, Cooperative, Well developed HEENT: Atraumatic, PERRLA Oral: Moist Mucosa Neck: Supple, No JVD Lungs: Clear to auscultation, Normal air movement Cardiovascular: Regular rate, Regular Rhythm Abdomen: Bowel Sounds Present, Soft, Non Tender, No Hepato-splenomegaly Extremities: No clubbing, No edema, - - Scalded skin syndrome to left lower leg and on the pad of his left foot Wound Measurements and Assessment WC - Nurse 1 - General Ulcer Measurement Start: 01/25/18 09:27 Freq: Status: Active Protocol: Activity Type Activity Date Activity User E-Sign Co-Sign Detail Recorded Client Recorded Date Recorded By Document 01/25/18 10:11 DV [id number] 01/25/18 10:58 DV Wound Center Nurse 1 [Ulcer Assessment] #5 Right Medial Ankle -Combined with other wound No -Current Size (cm) - Length 3.0 WC - Nurse 2 - General Ulcer CM Notes Start: 01/25/18 09:27 Freq: Status: Active Protocol: Activity Type Activity Date Activity User E-Sign Co-Sign Detail Recorded Client Recorded Date Recorded By Document 01/25/18 11:25 MW [id number] 01/25/18 11:33 MW Wound Center Nurse 2 Musculoskeletal: No Tenderness to Palpation of Joints or Extremities Lymphatic: No Cervical, Supraclavicular, or Inguinal Adenopathy Neurological: Cranial nerves II-XII grossly intact, Neuro grossly intact Psych/Mental Status: Normal Affect, Appropriate Debridement Note Post-Debridement Measurements/Treatment WC - Nurse 2 - General Ulcer CM Notes Start: 01/25/18 09:27 Freq: Status: Active Protocol: Activity Type Activity Date Activity User E-Sign Co-Sign Detail Recorded Client Recorded Date Recorded By Document 01/25/18 11:25 MW [id number] 01/25/18 11:33 MW Wound Center Nurse 2 #5 Right Medial Ankle -Time 11:31 -Correct Patient Yes -Correct Side, Site, Position Yes No debridement was completed today Assessment/Plan Cultures obtained started on antibiotics will get labs of CBC and a pre-albumin Active Problems Cellulitis (Chronic) Lymphedema of lower extremity (Chronic) CKD (chronic kidney disease), stage III (Chronic) Wound infection (Acute) MRSA (methicillin resistant Staphylococcus aureus) infection (Acute) Malnutrition (Acute) Nonstaphylococcal scalded skin syndrome (Chronic) Assessment: Lymphedema bilateral lower legs. Cellulitis left leg. Renal insufficiency. MRSA and wound infections Plan: Wash leg with Hibiclens well then. Wrap left lower leg with Xeroform dressings cover with Barb tape and double layer Tubigrip's to bilateral lower legs. Until the order comes and will be using herself to open areas optic to red areas and Barb and double layer Tubigrip. Heart levofloxacin 751 p.o. daily for 14 days and metronidazole 253 times a day 14 days\. Call with results of his labs. Up in 1 week 01/25/18 1151 <Electronically signed by Tena SOSA> Date Tena SOSA CC: Signed Observed: 01/25/2018 Status: F Source: [place] CULTURE, DEEP WOUND 11:[address] [facility] REPOSITORY Comments: LLE ULCER Gram Stain Gram Stain No White Blood Cells No organisms seen Wound Culture ORGANISM 1: Staphylococcus aureus Amount Growth Rare Staphylococcus aureus: REACTION Benzylpenicillin NF >=0.5 R Cefoxitin *NF - Clindamycin $$ <=0.25 R Inducable Clindamycin Res[place] + Erythromycin $ 4 R Gentamicin $ <=0.5 S Levofloxacin $ 0.25 S Linezolid $$$$ 2 S Moxifloxicin *NF <=0.25 S Oxacillin NF <=0.25 S Tigecycline $$$$ <=0.12 S Rifampin $$ <=0.5 S Tetracycline NF <=1 S Trimethoprim/Sulfametho $ <=10 S Vancomycin $ <=0.5 S (NF) indicates non-formulary drug at [facility]. Approval by Infectious Disease Specialist required before non-formulary drugs may be ordered and/or dispensed. * CLSI guidelines does not recommend testing of cephalosporins. This interpretation is deduced from Beta-lactam/penicillin results. Cult, Anaerobic No anaerobic bacteria isolated. Performed By: #### M100.1500 #### [facility] [place], [address] [place] ABS GR + CBC Collected: 01/18/2018 Status: F Source: [place] 11:25 AM [facility] REPOSITORY TYPE CODE TESTS RESULT OUT OF REFERENCE UNITS RANGE LAB WWBC 3.70-11.00 k/uL [place] WBC 5.46 LAB WRBC 4.20-6.00 m/uL Low Mark RBC 3.35 LAB WHGB 13.0-17.0 g/dL Low [place] Hemoglobin 9.9 LAB WHCT 39.0-51.0 % Low Mark Hematocrit 32.6 LAB WMCV 80.0-100.0 fL Mark MCV 97.3 LAB WMCH 26.0-34.0 pg Mark MCH 29.6 LAB WMCHC 30.5-36.0 g/dL Low [place] MCHC 30.4 LAB WRDW 11.5-15.0 % [place] RDW 13.6 LAB WPLT 150-400 k/uL [place] Platelet Cnt 181 LAB WMPV 9.0-12.7 fL Mark MPV 10.3 Result Comment: Test performed at: [facility], [address] [place] [address] Rd[address] [place] [address]. LAB ABGRAN 1.45-7.50 k/uL Absol Gran 4.36 Count FERRITIN Collected: 01/18/2018 Status: F Source: [place] 11:25 AM [facility] REPOSITORY TYPE CODE TESTS RESULT OUT OF REFERENCE UNITS RANGE LAB FERR 30.3-565.7 ng/mL Ferritin 463.0 Performed By: #### FERR, IRON #### [place] [address] IRON AND TIBC Collected: 01/18/2018 Status: F Source: [place] 11:25 AM [facility] REPOSITORY TYPE CODE TESTS RESULT OUT OF REFERENCE UNITS RANGE LAB IRN 41-186 ug/dL Iron 55 LAB TIBC 232-386 ug/dL Low TIBC 159 LAB SAT 15-57 % Transferrin Saturatn 35 Performed By: #### FERR, IRON #### [place] [address] MARK ABS GR + CBC Collected: 01/02/2018 Status: F Source: [place] 10:44 AM [facility] REPOSITORY TYPE CODE TESTS RESULT OUT OF REFERENCE UNITS RANGE LAB WWBC 3.70-11.00 k/uL [place] WBC 5.32 LAB WRBC 4.20-6.00 m/uL Low [place] RBC 3.58 LAB WHGB 13.0-17.0 g/dL Low [place] Hemoglobin 10.6 LAB WHCT 39.0-51.0 % Low [place] Hematocrit 34.8 LAB WMCV 80.0-100.0 fL [place] MCV 97.2 LAB WMCH 26.0-34.0 pg [place] MCH 29.6 LAB WMCHC 30.5-36.0 g/dL [place] MCHC 30.5 LAB WRDW 11.5-15.0 % [place] RDW 13.6 LAB WPLT 150-400 k/uL [place] Platelet Cnt 151 LAB WMPV 9.0-12.7 fL [place] MPV 10.5 Result Comment: Test performed at: [facility], [address] [place] [address]., [place] [address]. LAB ABGRAN 1.45-7.50 k/uL Absol Gran 4.35 Count MARK ABS GR + CBC Collected: 12/19/2017 Status: F Source: [place] 10:27 AM [facility] REPOSITORY TYPE CODE TESTS RESULT OUT OF REFERENCE UNITS RANGE LAB WWBC 3.70-11.00 k/uL [place] WBC 5.03 LAB WRBC 4.20-6.00 m/uL Low [place] RBC 3.58 LAB WHGB 13.0-17.0 g/dL Low [place] Hemoglobin 10.7 LAB WHCT 39.0-51.0 % Low [place] Hematocrit 35.2 LAB WMCV 80.0-100.0 fL [place] MCV 98.3 LAB WMCH 26.0-34.0 pg [place] MCH 29.9 LAB WMCHC 30.5-36.0 g/dL Low [place] MCHC 30.4 LAB WRDW 11.5-15.0 % [place] RDW 14.0 LAB WPLT 150-400 k/uL Low [place] Platelet Cnt 144 LAB WMPV 9.0-12.7 fL [place] MPV 10.8 Result Comment: Test performed at: [facility], [address] [place] [address]., [place] [address]. LAB ABGRAN 1.45-7.50 k/uL Absol Gran 3.92 Count MARK ABS GR + CBC Collected: 11/21/2017 Status: F Source: [place] 10:53 AM [facility] REPOSITORY TYPE CODE TESTS RESULT OUT OF REFERENCE UNITS RANGE LAB WWBC 3.70-11.00 k/uL [place] WBC 5.01 LAB WRBC 4.20-6.00 m/uL Low [place] RBC 3.43 LAB WHGB 13.0-17.0 g/dL Low [place] Hemoglobin 10.3 LAB WHCT 39.0-51.0 % Low [place] Hematocrit 33.3 LAB WMCV 80.0-100.0 fL [place] MCV 97.1 LAB WMCH 26.0-34.0 pg [place] MCH 30.0 LAB WMCHC 30.5-36.0 g/dL [place] MCHC 30.9 LAB WRDW 11.5-15.0 % [place] RDW 13.7 LAB WPLT 150-400 k/uL Low [place] Platelet Cnt 129 LAB WMPV 9.0-12.7 fL [place] MPV 9.9 Result Comment: Test performed at: [facility] Mark, [address] [place] [address]. LAB ABGRAN 1.45-7.50 k/uL Absol Gran 3.87 Count HOSP Observed: 11/21/2017 Status: COMPLETED Source: [place] 10:30 AM [facility] REPOSITORY Infusion Center ([facility]) DOUG CAST ([id number]) 1935 M T Date Time Provider Department 11/21/17 10:30 AM INJECTION [facility] During your visit today, we recorded the following information about you: Sheila Moctezuma LPN 11/21/2017 11:14 AM Signed Injection deferred, parameters not met. Hgb 10.3. Sheila Moctezuma LPN Referring Provider: RAH PEREZ [[id number]] Allergies As of Date: 11/21/2017 (No Known Allergies) Date Reviewed: 08/15/2017 Reviewed by: Rah Perez - Fully Assessed Primary Visit Diagnosis:Anemia of chronic renal failure, unspecified CKD stage [N18.9, D63.1] Prescriptions as of 11/21/2017 Sig: OMEGA 3 ORAL Take 1 capsule by mouth twice* ERGOCALCIFEROL (VITAMIN D2) 5* Take 50,000 Units by mouth on* ALLOPURINOL 300 MG TABLET once daily. DOXAZOSIN 8 MG TABLET daily at bedtime. HYDRALAZINE 50 MG TABLET four times daily. LABETALOL 200 MG TABLET twice daily. LISINOPRIL 40 MG TABLET once daily. PRAVASTATIN 40 MG TABLET once daily. ASPIRIN 81 MG TABLET,DELAYED * 1 tablet(s) by mouth daily AMLODIPINE 5 MG TABLET Take 5 mg by mouth once daily. 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 Hgb 10.3. Sheila Moctezuma LPN Encounter Status:Closed by SHEILA MOCTEZUMA LPN on 11/21/17 MARK ABS GR + CBC Collected: 11/07/2017 Status: F Source: [place] 10:53 AM [facility] REPOSITORY TYPE CODE TESTS RESULT OUT OF REFERENCE UNITS RANGE LAB WWBC 3.70-11.00 k/uL [place] WBC 6.26 LAB WRBC 4.20-6.00 m/uL Low [place] RBC 3.61 LAB WHGB 13.0-17.0 g/dL Low [place] Hemoglobin 10.8 LAB WHCT 39.0-51.0 % Low [place] Hematocrit 34.8 LAB WMCV 80.0-100.0 fL [place] MCV 96.4 LAB WMCH 26.0-34.0 pg [place] MCH 29.9 LAB WMCHC 30.5-36.0 g/dL [place] MCHC 31.0 LAB WRDW 11.5-15.0 % [place] RDW 14.0 LAB WPLT 150-400 k/uL [place] Platelet Cnt 153 LAB WMPV 9.0-12.7 fL [place] MPV 10.2 Result Comment: Test performed at: [facility] Mark [address] [place] [address]. LAB ABGRAN 1.45-7.50 k/uL Absol Gran 5.11 Count IRON AND TIBC Collected: 11/07/2017 Status: F Source: [place] 10:53 AM [facility] REPOSITORY TYPE CODE TESTS RESULT OUT OF REFERENCE UNITS RANGE LAB IRN 41-186 ug/dL Iron 49 LAB TIBC 232-386 ug/dL Low TIBC 183 LAB SAT 15-57 % Transferrin Saturatn 27 Performed By: #### IRON, FERR #### [facility] [employer] [address] [place], [place] [address] FERRITIN Collected: 11/07/2017 Status: F Source: [place] 10:53 AM [facility] REPOSITORY TYPE CODE TESTS RESULT OUT OF REFERENCE UNITS RANGE LAB FERR 30.3-565.7 ng/mL Ferritin 375.4 Performed By: #### IRON, FERR #### [facility] [employer] [address] [place], [place] [id number] HOSP Observed: 11/07/2017 Status: COMPLETED Source: [place] 10:30 AM [facility] REPOSITORY Infusion Center ([facility]) DOUG CAST ([id number]) 1935 M CHT Date Time Provider Department 11/07/17 10:30 AM INJECTION [facility] During your visit today, we recorded the following information about you: Sheila Moctezuma LPN 11/07/2017 11:04 AM Signed Injection deferred, Hgb 10.8. Sheila Moctezuma LPN Referring Provider: RAH PEREZ [[id number]] Allergies As of Date: 11/07/2017 (No Known Allergies) Date Reviewed: 08/15/2017 Reviewed by: Rah Perez - Fully Assessed Primary Visit Diagnosis:Anemia of chronic renal failure, unspecified CKD stage [N18.9, D63.1] Prescriptions as of 11/07/2017 Sig: OMEGA 3 ORAL Take 1 capsule by mouth twice* ERGOCALCIFEROL (VITAMIN D2) 5* Take 50,000 Units by mouth on* ALLOPURINOL 300 MG TABLET once daily. DOXAZOSIN 8 MG TABLET daily at bedtime. HYDRALAZINE 50 MG TABLET four times daily. LABETALOL 200 MG TABLET twice daily. LISINOPRIL 40 MG TABLET once daily. PRAVASTATIN 40 MG TABLET once daily. ASPIRIN 81 MG TABLET,DELAYED * 1 tablet(s) by mouth daily AMLODIPINE 5 MG TABLET Take 5 mg by mouth once daily. 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 Sheila Moctezuma LPN Encounter Status:Closed by SHEILA MOCTEZUMA LPN on 11/07/17 MARK ABS GR + CBC Collected: 10/24/2017 Status: F Source: [place] 10:30 AM [facility] REPOSITORY TYPE CODE TESTS RESULT OUT OF REFERENCE UNITS RANGE LAB WWBC 3.70-11.00 k/uL [place] WBC 4.40 LAB WRBC 4.20-6.00 m/uL Low [place] RBC 3.64 LAB WHGB 13.0-17.0 g/dL Low [place] Hemoglobin 10.8 LAB WHCT 39.0-51.0 % Low [place] Hematocrit 34.7 LAB WMCV 80.0-100.0 fL [place] MCV 95.3 LAB WMCH 26.0-34.0 pg [place] MCH 29.7 LAB WMCHC 30.5-36.0 g/dL [place] MCHC 31.1 LAB WRDW 11.5-15.0 % [place] RDW 14.1 LAB WPLT 150-400 k/uL Low [place] Platelet Cnt 114 LAB WMPV 9.0-12.7 fL [place] MPV 10.1 Result Comment: Test performed at: [facility] Mark, [address] [place] [address]. LAB ABGRAN 1.45-7.50 k/uL Absol Gran 3.20 Count HOSP Observed: 10/24/2017 Status: COMPLETED Source: [place] 10:30 AM [facility] REPOSITORY Infusion Center ([facility]) CASEYDOUG HUDSON ([id number]) 1935 M T Date Time Provider Department 10/24/17 10:30 AM INJECTION [facility] HEMA[facility] During your visit today, we recorded the following information about you: Sheila Moctezuma LPN 10/24/2017 10:55 AM Signed Injection deferred. Parameters not met. HGB 10.8. Sheila Moctezuma LPN Referring Provider: RAH PEREZ [[id number]] Allergies As of Date: 10/24/2017 (No Known Allergies) Date Reviewed: 08/15/2017 Reviewed by: Rah Perez - Fully Assessed Primary Visit Diagnosis:Anemia of chronic renal failure, unspecified CKD stage [N18.9, D63.1] Prescriptions as of 10/24/2017 Sig: OMEGA 3 ORAL Take 1 capsule by mouth twice* ERGOCALCIFEROL (VITAMIN D2) 5* Take 50,000 Units by mouth on* ALLOPURINOL 300 MG TABLET once daily. DOXAZOSIN 8 MG TABLET daily at bedtime. HYDRALAZINE 50 MG TABLET four times daily. LABETALOL 200 MG TABLET twice daily. LISINOPRIL 40 MG TABLET once daily. PRAVASTATIN 40 MG TABLET once daily. ASPIRIN 81 MG TABLET,DELAYED * 1 tablet(s) by mouth daily AMLODIPINE 5 MG TABLET Take 5 mg by mouth once daily. 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 Parameters not met. HGB 10.8. Sheila Moctezuma LPN Encounter Status:Closed by SHEILA MOCTEZUMA LPN on 10/24/17 ALLERGIES ALLERGIES DATE TYPE / CODE NAME / CODE REACTION SEVERITY SOURCE 10/13/2018 Drug No Known Unknown [facility] Allergy/416 Allergies/V49964 [facility] 786970(SNOM 0388(RXNORM) Repository ED CT) NG/[id number] NO KNOWN [facility] 6(SNOMED ALLERGIES [facility]) Repository Drug NO KNOWN [facility] Class/35503 ALLERGIES [place] 1003(SNOMED Repository CT) ENCOUNTERS ENCOUNTERS ADMIT/DISCHARGE ACCOUNT NUMBER ADMITTING ENCOUNTER LOCATION SOURCE CLASS 10/13/2018/10/13/20 [id number] [place] Inpatient [place] 18 Encounter [facility] ding:PCURoom Repository : [id number]: 1 10/13/2018 [id number] [place] Ambulatory BMSBuilding: [place] BMS.[facility] Repository 10/13/2018 [id number] [place] Ambulatory BMSBuilding: [place] BMS.[facility] Repository 10/12/2018/10/13/20 [id number] Christiano Boss [facility] Inpatient [place] 18 Encounter [facility] ding:TCURoom Repository : [id number]: 1 10/08/2018/10/12/20 [id number] Sementi, Inpatient [place] 18 [place] Encounter [facility] ding:SF3Aghr Repository : [id number]: 1 10/08/2018 [id number] Sementi, Ambulatory BMSBuilding: [place] Gail BMS.[facility] Repository 10/08/2018 [id number] Sementi, Ambulatory BMSBuilding: [place]ail BMS.[facility] Repository 10/08/2018 [id number] Sementi, Ambulatory BMSBuilding: [place] Gail BMS.[facility] Repository 10/08/2018 [id number] Sementi, Ambulatory BMSBuilding: [place] BMS.[facility] Repository 10/08/2018 [id number] Sementi, Ambulatory BMSBuilding: [place]ail BMS.[facility] Repository 10/08/2018 [id number] Ambulatory [facility] ding:CHET Repository B 10/07/2018 [id number] Ambulatory [facility] ding:MAGDALENA.AVE Repository B 10/05/2018 [id number] Ambulatory [facility] ding:OLS.AVE Repository B 09/29/2018/10/02/20 [id number] Agyepong, Inpatient [place] 18 [place] Encounter [facility] ding:PCURoom Repository : [id number]: 1 09/29/2018 [id number] Agyepong, Ambulatory BMSBuilding: [place] BMS.[facility] Repository 09/29/2018 [id number] Agyepong, Ambulatory BMSBuilding: [place] Chase BMS..[facility] Repository 09/29/2018 [id number] Agyepong, Ambulatory BMSBuilding: [place] BMS..[facility] Repository 09/29/2018 [id number] Agyepong, Ambulatory BMSBuilding: [place] Chase BMS.[facility] Repository 09/29/2018 [id number] Agyepong, Ambulatory BMSBuilding: [place] BMS.[facility] Repository 09/29/2018 [id number] Agyepong, Ambulatory BMSBuilding: [place] Chase BMS.[facility] Repository 09/29/2018 [id number] Agyepong, Ambulatory BMSBuilding: [place] BMS.[facility] Repository 09/23/2018 [id number] Ambulatory [facility] ding:BFHLAB Repository 09/18/2018/09/18/20 [id number] Ambulatory [address] Repository 08/19/2018/09/17/20 [id number] Christiano Boss Chi Inpatient [place] 18 [facility] ding:TCURoom Repository : [id number]: 1 08/14/2018/08/19/20 [id number] Agyepong, Inpatient [place] 18 [place] Encounter [facility] ding:PCURoom Repository : [id number]: 1 08/14/2018 [id number] Agyepong, Ambulatory BMSBuilding: [place] BMS.[facility] Repository 08/14/2018 [id number] Agyepong, Ambulatory BMSBuilding: [place] BMS.[facility] Repository 08/14/2018 [id number] Agyepong, Ambulatory BMSBuilding: [place] BMS.[facility] Repository 08/14/2018 [id number] Agyepong, Ambulatory BMSBuilding: [place] BMS.[facility] Repository 08/14/2018 [id number] Agyepong, Ambulatory BMSBuilding: [place] BMS.[facility] Repository 08/14/2018 [id number] Agyepong, Ambulatory BMSBuilding: [place] BMS.[facility] Repository 07/31/2018/08/01/20 [id number] Ambulatory [address] [place] Repository 07/31/2018/07/31/20 [id number] Ambulatory [address] [place] Repository 07/31/2018/08/15/20 [id number] Ambulatory [place] 18 [facility] [place] Repository 07/17/2018/07/18/20 [id number] Ambulatory [address] [place] Repository 07/17/2018/07/18/20 [id number] Ambulatory [place] 18 [facility] [place] Repository 07/03/2018/07/03/20 [id number] Ambulatory [place] 18 [facility] [place] Repository 07/03/2018/07/03/20 [id number] Ambulatory [place] 18 [facility] [place] Repository 06/19/2018/06/19/20 [id number] Ambulatory [place] 18 [facility] [place] Repository 06/19/2018/06/19/20 [id number] Ambulatory [place] 18 [facility] [place] Repository 06/05/2018/06/05/20 [id number] Ambulatory [place] 18 [facility] [place] Repository 06/05/2018/06/06/20 [id number] Ambulatory [place] 18 [facility] [place] Repository 05/22/2018/05/23/20 [id number] Ambulatory [place] 18 [facility] [place] Repository 05/22/2018/05/22/20 [id number] Ambulatory [place] 18 [facility] [place] Repository 05/17/2018/05/17/20 [id number] Ambulatory [place] 18 [facility] [place] Repository 05/17/2018/05/17/20 [id number] Ambulatory [address] MEDICAL Repository CENTERBuildi ng:AGWM 05/17/2018 [id number] Ambulatory [facility] MEDICAL Repository CENTERBuildi ng:AGWM 05/08/2018/05/09/20 [id number] Ambulatory [address] [place] Repository 05/08/2018/05/08/20 [id number] Ambulatory [address] Repository 05/08/2018 [id number] Ambulatory [facility] ding:WC Repository 05/07/2018 [id number] [facility] ding[facility] Repository 04/26/2018/04/27/20 [id number] Ambulatory [place] ding:WC Repository 04/24/2018/04/24/20 [id number] Ambulatory [address] [place] Repository 04/24/2018/04/25/20 [id number] Ambulatory [address] [place] Repository 04/10/2018/04/11/20 [id number] Ambulatory [address] [place] Repository 04/10/2018/04/10/20 [id number] Ambulatory [address] [place] Repository 04/05/2018 [id number] Ambulatory [facility] ding:LABSPEC Repository 03/27/2018/03/27/20 [id number] Ambulatory [address] [place] Repository 03/27/2018/03/27/20 [id number] Ambulatory [address] [place] Repository 03/22/2018/03/28/20 [id number] Ambulatory [address] ding:WC Repository 03/13/2018/03/14/20 [id number] Ambulatory [address] [place] Repository 03/13/2018/03/13/20 [id number] Ambulatory [address] [place] Repository 03/04/2018 [id number] [facility] ding:LAB.FUT Repository URE 03/01/2018 [id number] Ambulatory [facility] ding:BFHLAB Repository 02/27/2018/02/29/20 [id number] Ambulatory [address] [place] Repository 02/27/2018/02/29/20 [id number] Ambulatory [address] [place] Repository 02/15/2018/02/26/20 [id number] Ambulatory [place] 18 [facility] ding:WC Repository 02/13/2018/02/14/20 [id number] Ambulatory [place] 18 [facility] [place] Repository 02/13/2018/02/14/20 [id number] Ambulatory [place] 18 [facility] [place] Repository 01/30/2018/02/01/20 [id number] Ambulatory [place] 18 [facility] [place] Repository 01/30/2018/01/31/20 [id number] Ambulatory [place] 18 [facility] [place] Repository 01/30/2018/02/01/20 [id number] Ambulatory [place] 18 [facility] [place] Repository 01/25/2018/01/27/20 [id number] Ambulatory [place] 18 [facility] ding:WC Repository 01/18/2018/01/19/20 [id number] Ambulatory [place] 18 [facility] [place] Repository 01/18/2018/01/22/20 [id number] Ambulatory [place] [place] Repository 01/02/2018/01/04/20 [id number] Ambulatory [place] 18 [facility] [place] Repository 01/02/2018/01/03/20 [id number] Ambulatory [place] 18 [facility] [place] Repository 12/19/2017/12/20/19 [id number] Ambulatory [place] [facility] [place] Repository 12/19/2017/12/19/19 [id number] Ambulatory [place] [facility] [place] Repository 11/21/2017/11/21/19 [id number] Ambulatory [place] [facility] [place] Repository 11/21/2017/11/22/19 [id number] Ambulatory [place] [facility] [place] Repository 11/07/2017/11/07/19 [id number] Ambulatory [place] [facility] [place] Repository 11/07/2017/11/07/19 [id number] Ambulatory [place] [facility] [place] Repository 10/24/2017/10/24/20 [id number] Ambulatory [place] [facility] [place] Repository 10/24/2017/10/25/20 [id number] Ambulatory [place] 17 [facility] [place] Repository PAYERS PAYERS ENCOUNTER GUARANTOR PAYER SUBSCRIBER SOURCE 10/13/2018 DOUG Peter Primary DOUG [place] [id number] HAPPY Insurance:MEDICARE VASASDOB: [facility] PART A BPolicy Number: [id number] [id number] Repository 16308Imp: (865) Date:2018-10-13 [id number] () 10/13/2018 Secondary DOUG P [place] Insurance:HUMANA [facility]ASASDOB: [facility] [id number] Hospital Number: Repository [id number] Date:1859-44-22CH [address] [place] [address]PK: 10/13/2018 Tertiary NOT GIVENUNK [place] Insurance:SELF PAY [facility] Hospital Number: Effective Repository Date:2018-10-13 10/13/2018 DOUG P Primary DOUG P [place] [id number] HAPPY Insurance:MEDICARE VASASDOB: [facility] PART A BPolicy Number: [id number], [place] [id number] Repository [address]Frl: 330) Date:2018-10-13 [id number] () 10/13/2018 Secondary DOUG P [place] Insurance:HUMANA VASASDOB: [facility] [id number] Hospital Number: Repository [id number] Date:5201-50-66OL [address] [address]PB: 10/13/2018 Tertiary NOT GIVENUNK [place] Insurance:SELF PAY [facility] Hospital Number: Effective Repository Date:2018-10-13 10/13/2018 DOUG P Primary DUOG P [place] [id number] HAPPY Insurance:MEDICARE VASASDOB: [facility] PART A BPolicy Number: [id number], [place] [id number] Repository [address]Ngg: 330) Date:2018-10-13 [id number] () 10/13/2018 Secondary DOUG P [place] Insurance:HUMANA VASASDOB: [facility] [id number] Hospital Number: Repository [id number] Date:4874-73-11AD [address] [address]WW: 10/13/2018 Tertiary NOT GIVENUNK [place] Insurance:SELF PAY [facility] Hospital Number: Effective Repository Date:2018-10-13 10/12/2018 DOUG P Primary DOUG P [place] [id number] HAPPY Insurance:MEDICARE VASASDOB: [facility] PART A BPolicy Number: [id number], [place] [id number] Repository [address]Klb: (330) Date:2018-10-129513 () 10/12/2018 Secondary DOUG P [place] Insurance:HUMANA VASASDOB: [facility] [id number] Hospital Number: Repository [id number] Date:2002-31-97PW [address] [place] [address]OS: 10/12/2018 Tertiary NOT GIVENUNK [place] Insurance:SELF PAY [facility] Hospital Number: Effective Repository Date:2018-10-12 10/08/2018 DOUG P Primary DOUG P [place] [id number] HAPPY Insurance:MEDICARE VASASDOB: [facility] PART A BPolicy Number: [id number], [place] [id number] Repository [address]Osz: (330) Date:2018-10-088174 () 10/08/2018 Secondary DOUG P [place] Insurance:HUMANA VASASDOB: [facility] [id number] Hospital Number: Repository [id number] Date:4713-09-22JM [address] [place] [address]ZH: 10/08/2018 Tertiary NOT GIVENUNK [place] Insurance:SELF PAY [facility] Hospital Number: Effective Repository Date:2018-10-08 10/08/2018 DOUG P Primary DOUG P [place] [id number] HAPPY Insurance:MEDICARE VASASDOB: [facility] PART A BPolicy Number: [id number], [place] [id number] Repository [address]Ucg: (330) Date:2018-10-085569 () 10/08/2018 Secondary DOUG P [place] Insurance:HUMANA VASASDOB: [facility] [id number] Hospital Number: Repository [id number] Date:4277-94-17DE [address] [address]BZ: 10/08/2018 Tertiary NOT GIVENUNK [place] Insurance:SELF PAY [facility] Number: Effective Repository Date:2018-10-08 10/08/2018 DOUG P Primary DOUG P [place] [id number] HAPPY Insurance:MEDICARE VASASDOB: [facility] PART A BPolicy Number: [id number], [place] [id number] Repository [address]Vuk: (330) Date:2018-10-082757 () 10/08/2018 Secondary DOUG P [place] Insurance:HUMANA VASASDOB: [facility] COMMERCIALPolicy [id number] Hospital Number: Repository [id number] Date:2685-55-[address] [address]SO: 10/08/2018 Tertiary NOT GIVENUNK [place] Insurance:SELF PAY [facility] Hospital Number: Effective Repository Date:2018-10-08 10/08/2018 DOUG P Primary DOUG P [place] [id number] HAPPY Insurance:MEDICARE VASASDOB: [facility] PART A BPolicy Number: [id number], [place] [id number] Repository [address]Kyq: 330) Date:2018-10-08 [id number] () 10/08/2018 Secondary DOUG P [place] Insurance:HUMANA [facility]ASASDOB: [facility] [id number] Hospital Number: Repository [id number] Date:[id number] [address]IB: 10/08/2018 Tertiary NOT GIVENUNK [place] Insurance:SELF PAY [facility] Hospital Number: Effective Repository Date:2018-10-08 10/08/2018 DOUG P Primary DOUG P [place] [id number] HAPPY Insurance:MEDICARE VASASDOB: [facility] PART A BPolicy Number: [id number], [place] [id number] Repository 29625Wnn: 330) Date:2018-10-08 [phone] () 10/08/2018 Secondary DOUG P [place] Insurance:HUMANA VASASDOB: Community COMMERCIALPolicy [id number] Hospital Number: Repository [id number] Date:6831-74-21TS [address] [address]SN: 10/08/2018 Tertiary NOT GIVENUNK [place] Insurance:SELF PAY [facility] Number: Effective Repository Date:2018-10-08 10/08/2018 DOUG P Primary DOUG P [place] [id number] HAPPY Insurance:MEDICARE VASASDOB: [facility] PART A BPolicy Number: [id number], [place] [id number] Repository 00726Vci: (222) Date:2018-10-08 [phone] () 10/08/2018 Secondary DOUG P [place] Insurance:HUMANA VASASDOB: [facility] COMMERCIALPolicy [id number] Hospital Number: Repository [id number] Date:1692-14-01JX [address] [address]LB: 10/08/2018 Tertiary NOT GIVENUNK [place] Insurance:SELF PAY [facility] Number: Effective Repository Date:2018-10-08 10/08/2018 DOUG P Primary Insurance:SELF NOT GIVENUNK [place] [id number] HAPPY [facility]Y [facility] Number: Effective Hospital [facility] [place] Date:2018-10-08 Repository 08574Hfw: () 10/07/2018 DOUG P Primary Insurance:SELF NOT GIVENUNK [place] [id number] H[facility]Y [facility] Effective Hospital [facility] Date:2018-10-07 Repository 05193Owx: () 10/05/2018 DOUG P Primary Insurance:SELF NOT GIVENUNK [place] [id number] HAPPY PAY [facility] Number: Effective Hospital [facility] Date:2018-10-05 Repository 18491Jlm: () 09/29/2018 DOUG P Primary DOUG P [place] [id number] HAPPY Insurance:MEDICARE VASASDOB: Community [place] PART A BPolicy Number: [id number], [place] [id number] Repository 06329Oes: (330) Date:2018-09-28 [phone] () 09/29/2018 Secondary DOUG P [place] Insurance:HUMANA VASASDOB: [facility] [id number] Hospital Number: Repository [id number] Date:8004-38-59PI [address] [address]PU: 09/29/2018 Tertiary NOT GIVENUNK Mark Insurance:SELF PAY [facility] Hospital Number: Effective Repository Date:2018-09-28 09/29/2018 DOUG P Primary DOUG P [place] [id number] HAPPY Insurance:MEDICARE VASASDOB: [facility] [place] PART A BPolicy Number: [id number], [place] [id number] Repository 46824Ixw: 330) Date:2018-09-287092 () 09/29/2018 Secondary DOUG P [place] Insurance:HUMANA VASASDOB: [facility] [id number] Hospital Number: Repository [id number] Date:3028-71-84GE [address] [address]QE: 09/29/2018 Tertiary NOT GIVENUNK [place] Insurance:SELF PAY [facility] Hospital Number: Effective Repository Date:2018-09-29 09/29/2018 DOUG P Primary DOUG P [place] [id number] HAPPY Insurance:MEDICARE VASASDOB: [facility] [place] PART A BPolicy Number: [id number], [place] [id number] Repository 93028Rzh: 330) Date:2018-09-28 [phone] () 09/29/2018 Secondary DOUG P [place] Insurance:HUMANA VASASDOB: [facility] [id number] Hospital Number: Repository [id number] Date:2324-59-86GO [address] [address]YO: 09/29/2018 Tertiary NOT GIVENUNK [place] Insurance:SELF PAY [facility] Number: Effective Repository Date:2018-09-29 09/29/2018 DOUG P Primary DOUG P [place] [id number] HAPPY Insurance:MEDICARE VASASDOB: [facility] [place] PART A BPolicy Number: [id number], [place] [id number] Repository 54128Jlu: (137) Date:2018-09-289116 () 09/29/2018 Secondary DOUG P [place] Insurance:HUMANA VASASDOB: Community COMMERCIALPolicy [id number] Hospital Number: Repository [id number] Date:3086-71-14ZF[address] [address]YI: 09/29/2018 Tertiary NOT GIVENUNK [place] Insurance:SELF PAY [facility] Number: Effective Repository Date:2018-09-29 09/29/2018 DOUG P Primary DOUG P [place] [id number] HAPPY Insurance:MEDICARE VASASDOB: [facility] [place] PART A BPolicy Number: [id number], [place] [id number] Repository 66439Bqd: (849) Date:2018-09-28 [phone] () 09/29/2018 Secondary DOUG P [place] Insurance:HUMANA VASASDOB: [facility] [id number] Hospital Number: Repository [id number] Date:1629-15-04DY[address] [address]ML: 09/29/2018 Tertiary NOT GIVENUNK [place] Insurance:SELF PAY [facility] Hospital Number: Effective Repository Date:2018-09-29 09/29/2018 DOUG P Primary DOUG P [place] [id number] HAPPY Insurance:MEDICARE VASASDOB: [facility] [place] PART A BPolicy Number: [id number], [place] [id number] Repository 23783Lim: (031) Date:2018-09-28 [phone] () 09/29/2018 Secondary DOUG P [place] Insurance:HUMANA VASASDOB: Community COMMERCIALPolicy [id number] Hospital Number: Repository [id number] Date:2051-05-00BY[address] [address]ZH: 09/29/2018 Tertiary NOT GIVENUNK [place] Insurance:SELF PAY [facility] Number: Effective Repository Date:2018-09-29 09/29/2018 DOUG P Primary DOUG P [place] [id number] HAPPY Insurance:MEDICARE VASASDOB: [facility] [place] PART A BPolicy Number: [id number], [place] [id number] Repository 61095Mku: (239) Date:2018-09-28 [phone] () 09/29/2018 Secondary DOUG P [place] Insurance:HUMANA VASASDOB: Community COMMERCIALPolicy [id number] Hospital Number: Repository [id number] Date:9760-14-58ID[address] [address]WI: 09/29/2018 Tertiary NOT GIVENUNK [place] Insurance:SELF PAY [facility] Number: Effective Repository Date:2018-09-29 09/29/2018 DOUG P Primary DOU[place] P [place] [id number] HAPPY Insurance:MEDICARE VASASDOB: [facility] [place] PART A BPolicy Number: [id number], [place] [id number] Repository 91536Fau: (213) Date:2018-09-28 [phone] () 09/29/2018 Secondary DOUG P [place] Insurance:HUMANA VASASDOB: Community COMMERCIALPolicy [id number] Hospital Number: Repository [id number] Date:1082-95-83JP[address] [address]BK: 09/29/2018 Tertiary NOT GIVENUNK [place] Insurance:SELF PAY [facility] Number: Effective Repository Date:2018-09-29 09/23/2018 DOUG P Primary DOUG P [place] [id number] HAPPY Insurance:MEDICARE VASASDOB: [facility] [place] PART A BPolicy Number: [id number], [place] [id number] Repository 99233Qmi: 330) Date:2018-09-236578 () 09/23/2018 Secondary DOUG P [place] Insurance:HUMANA VASASDOB: [facility] [id number] Hospital Number: Repository [id number] Date:5822-60-45JY [address] [address]CM: 09/23/2018 Tertiary NOT GIVENUNK [place] Insurance:SELF PAY [facility] Hospital Number: Effective Repository Date:2018-09-23 08/19/2018 DOUG P Primary DOUG P [place] [id number] HAPPY Insurance:MEDICARE VASASDOB: [facility] [place] PART A BPolicy Number: [id number], [place] [id number] Repository 84520Iao: 330) Date:2018-08-194150 () 08/19/2018 Secondary DOUG P [place] Insurance:HUMANA VASASDOB: [facility] [id number] Hospital Number: Repository [id number] Date:9551-04-14YA [address] [address]AP: 08/19/2018 Tertiary NOT GIVENUNK [place] Insurance:SELF PAY [facility] Hospital Number: Effective Repository Date:2018-08-19 08/14/2018 Doug P Primary Doug P [place] [id number] HAPPY Insurance:MEDICARE VasasDOB: [facility] [place] PART A BPolicy Number: [id number], [place] [id number] Repository 10906Eqf: (839) Date:2018-08-14 [phone] () 08/14/2018 Secondary Doug P [place] Insurance:HUMANA VasasDOB: [facility] [id number] Hospital Number: Repository [id number] Date:4252-10-24VM [address] [address]AR: 08/14/2018 Tertiary NOT GIVENUNK [place] Insurance:SELF PAY [facility] Hospital Number: Effective Repository Date:2018-08-14 08/14/2018 Doug P Primary Doug P [place] [id number] HAPPY Insurance:MEDICARE VasasDOB: [facility] [place] PART A BPolicy Number: [id number], [place] [id number] Repository 64640Oes: (433) Date:2018-08-141276 () 08/14/2018 Secondary Doug P [place] Insurance:HUMANA VasasDOB: Community COMMERCIALPolicy [id number] Hospital Number: Repository [id number] Date:2900-58-55BS [address] [place] [address]XS: 08/14/2018 Tertiary NOT GIVENUNK [place] Insurance:SELF PAY [facility] Hospital Number: Effective Repository Date:2018-08-14 08/14/2018 DOUG P Primary DOUG P [place] [id number] HAPPY Insurance:MEDICARE VASASDOB: [facility] [place] PART A BPolicy Number: [id number], [place] [id number] Repository 54273Dwx: (952) Date:2018-08-146827 () 08/14/2018 Secondary DOUG P [place] Insurance:HUMANA VASASDOB: [facility] [id number] Hospital Number: Repository [id number] Date:0889-05-04GS [address] [place] [address]GY: 08/14/2018 Tertiary NOT GIVENUNK [place] Insurance:SELF PAY [facility] Hospital Number: Effective Repository Date:2018-08-14 08/14/2018 Doug P Primary Doug P [place] [id number] HAPPY Insurance:MEDICARE VasasDOB: [facility] [place] PART A BPolicy Number: [id number], [place] [id number] Repository 71298Lju: (836) Date:2018-08-140079 () 08/14/2018 Secondary Doug P [place] Insurance:HUMANA VasasDOB: Community COMMERCIALPolicy [id number] Hospital Number: Repository [id number] Date:3787-66-63BZ[address] [address]FZ: 08/14/2018 Tertiary NOT GIVENUNK [place] Insurance:SELF PAY [facility] Number: Effective Repository Date:2018-08-14 08/14/2018 Doug P Primary Doug P [place] [id number] HAPPY Insurance:MEDICARE VasasDOB: [facility] [place] PART A BPolicy Number: [id number], [place] [id number] Repository 56187Adq: (380) Date:2018-08-14 [phone] () 08/14/2018 Secondary Doug P [place] Insurance:HUMANA VasasDOB: Community COMMERCIALPolicy [id number] Hospital Number: Repository [id number] Date:0847-79-55PU[address] [address]IE: 08/14/2018 Tertiary NOT GIVENUNK [place] Insurance:SELF PAY [facility] Number: Effective Repository Date:2018-08-14 08/14/2018 Doug P Primary Doug P [place] [id number] HAPPY Insurance:MEDICARE VasasDOB: [facility] [place] PART A BPolicy Number: [id number], [place] [id number] Repository 90870Jtw: (203) Date:2018-08-14 [phone] () 08/14/2018 Secondary Doug P [place] Insurance:HUMANA VasasDOB: Community COMMERCIALPolicy [id number] Hospital Number: Repository [id number] Date:0892-67-30QM [address] [address]RV: 08/14/2018 Tertiary NOT GIVENUNK [place] Insurance:SELF PAY [facility] Number: Effective Repository Date:2018-08-14 08/14/2018 Doug P Primary Doug P [place] [id number] HAPPY Insurance:MEDICARE VasasDOB: [facility] [place] PART A BPolicy Number: [id number], [place] [id number] Repository 06860Ogz: (586) Date:2018-08-14 [phone] (HP) 08/14/2018 Secondary Doug P [place] Insurance:HUMANA VasasDOB: [facility] [id number] Hospital Number: Repository [id number] Date:3567-50-43EC [address] [address]TJ: 08/14/2018 Tertiary NOT GIVENUNK [place] Insurance:SELF PAY [facility] Number: Effective Repository Date:2018-08-14 05/17/2018 DOUG Primary DOUG Rom[facility] VASASDOB: Insurance:MEDICARE A VASASDOB: [facility] AND BPolicy Number: [id number] Repository [place] [id number] [place], [place] Date: [address]Lmg: () 05/17/2018 Secondary DOUG Romero General Insurance:HUMANA VASASDOB: [facility] MEDICARE [id number] Repository SUPPLEMENTPolicy Number: [id number] Date: 05/17/2018 DOUG Primary DOUG Romero [facility] VASASDOB: Insurance:MEDICARE A VASASDOB: [facility] AND BPolicy Number: [id number] Repository [place] [id number] [place], [place] Date: [address]Bxc: () 05/17/2018 Secondary DOUG Romero General Insurance:HUMANA VASASDOB: [facility] MEDICARE [id number] Repository SUPPLEMENTPolicy Number: [id number] Date: 05/08/2018 Doug P Primary Doug P [place] [id number] [place] Insurance:MEDICARE VasasDOB: [facility] PART A BPolicy Number: [id number] [place] [id number] Repository 68[address]Szf: 330) Date:2018-01-25 [phone] () 05/08/2018 Secondary Doug P [place] Insurance:HUMANA VasasDOB: [facility] [id number] Hospital Number: Repository [id number] Date:5506-58-16CB [address] [place] [address]YP: 05/08/2018 Tertiary NOT GIVENUNK [place] Insurance:SELF PAY [facility] Number: Effective Repository Date:2018-04-28 05/07/2018 Doug P Primary Doug P [place] [id number] HAPPY Insurance:MEDICARE VasasDOB: [facility] [place] PART A BPolicy Number: [id number], [place] [id number] Repository 60435Etm: (735) Date:2018-04-22 [phone] () 05/07/2018 Secondary Doug P [place] Insurance:HUMANA VasasDOB: [facility] [id number] Hospital Number: Repository [id number] Date:1206-04-20QO [address] [address]VX: 05/07/2018 Tertiary NOT GIVENUNK [place] Insurance:SELF PAY [facility] Hospital Number: Effective Repository Date:2018-04-22 04/26/2018 Doug P Primary Doug P [place] [id number] [place] Insurance:MEDICARE VasasDOB: [place] PART A BPolicy Number: [id number], [place] [id number] Repository 59232Gpb: (147) Date:2018-01-25 [phone] () 04/26/2018 Secondary Doug P [place] Insurance:HUMANA VasasDOB: Community COMMERCIALPolicy [id number] Hospital Number: Repository [id number] Date:4863-86-06LT [address] [place] [address]OC: 04/26/2018 Tertiary NOT GIVENUNK [place] Insurance:SELF PAY [facility] Number: Effective Repository Date:2018-03-29 04/05/2018 Doug P Primary Doug P [place] [id number] [place] Insurance:MEDICARE VasasDOB: [facility] [place] PART A BPolicy Number: [id number], [place] [id number] Repository 16844Jix: (846) Date:2018-04-05 [phone] (HP) 04/05/2018 Secondary Doug P [place] Insurance:HUMANA VasasDOB: [facility] [id number] Hospital Number: Repository [id number] Date:0509-34-81LO [address] [place] [address]MJ: 04/05/2018 Tertiary NOT GIVENUNK [place] Insurance:SELF PAY [facility] Hospital Number: Effective Repository Date:2018-04-05 03/22/2018 Doug P Primary Doug P [place] [id number] [place] Insurance:MEDICARE VasasDOB: [place] PART A olicy Number: [id number], [place] [id number] Repository 10098Bzs: Date:2018-01-25 ~33 0-4 (HP) 03/22/2018 Secondary Doug P [place] Insurance:HUMANA VasasDOB: [facility] [id number] Hospital Number: Repository [id number] Date:3828-09-69NG [address] [place] [address]HS: 03/22/2018 Tertiary NOT GIVENUNK [place] Insurance:SELF PAY [facility] Hospital Number: Effective Repository Date:2018-02-26 03/04/2018 Doug P Primary Doug P Mark [id number] [place] Insurance:MEDICARE VasasDOB: [facility] PART A BPolicy Number: [id number], [place] [id number] Repository 71345Ekr: Date:2018-03-04 ~33 0-4 (HP) 03/04/2018 Secondary Doug P [place] Insurance:HUMANA VasasDOB: [facility] [id number] Hospital Number: Repository [id number] Date:1448-96-96VZ [address] [place] [address]BU: 03/04/2018 Tertiary NOT GIVENUNK [place] Insurance:SELF PAY [facility] Hospital Number: Effective Repository Date:2018-03-04 03/01/2018 Doug P Primary Doug P [place] [id number] [place] Insurance:MEDICARE VasasDOB: [facility] [place] PART A BPolicy Number: [id number], [place] [id number] Repository 50453Qif: Date:2018-03-01 ~33 0-4 (HP) 03/01/2018 Secondary Doug P [place] Insurance:HUMANA VasasDOB: [facility] [id number] Hospital Number: Repository [id number] Date:5505-31-14TG [address] [address]MP: 03/01/2018 Tertiary NOT GIVENUNK [place] Insurance:SELF PAY [facility] Hospital Number: Effective Repository Date:2018-03-01 02/15/2018 Doug P Primary Doug P [place] [id number] [place] Insurance:MEDICARE VasasDOB: [facility] PART A olicy Number: [id number], [place] [id number] Repository 84027Vzp: Date:2018-01-25 ~33 0-4 (HP) 02/15/2018 Secondary Doug P [place] Insurance:HUMANA VasasDOB: [facility] [id number] Hospital Number: Repository [id number] Date:5742-03-34WN [address] [address]WW: 02/15/2018 Tertiary NOT GIVENUNK [place] Insurance:SELF PAY [facility] Hospital Number: Effective Repository Date:2018-01-27 01/25/2018 Doug P Primary Doug P [place] [id number] [place] Insurance:MEDICARE VasasDOB: [facility] PART A BPolicy Number: [id number], [place] [id number] Repository 22262Hos: Date:2018-01-25 ~33 0-4 (HP) 01/25/2018 Secondary Doug P [place] Insurance:HUMANA VasasDOB: [facility] [id number] Hospital Number: Repository [id number] Date:0070-24-29[address] [address]VWYFDEHVX, [place] [address]UJ: 01/25/2018 Tertiary NOT GIVENUNK [place] Insurance:SELF PAY [facility]: Effective Repository Date:2018-01-25
== END ==
PROVIDERS: Family Provider Family Medicine; PCP Family Medicine; Visit Provider Family Medicine
DX: I89.0 Lymphedema, not elsewhere classified (principal); D61.818 Other pancytopenia
CPT/HCPCS: 36415; 80053; 85025

== ENCOUNTER 2018-09-28 22:28 | Inpatient (IN) | payer MEDICARE, OTHER, SELFPAY ==
[2018-09-28 22:29] VITALS: BP 141/77; BP 169/108; PULSE 109; PULSE 110; RESP 32; RESP 37; TEMP 38.1; O2SAT 86; O2SAT 94; BMI 25.7
--- NOTE | 2018-09-28 22:48 | CT_ITS ---
STUDY: CT BRAIN WITHOUT CONTRAST REASON FOR EXAM: Male, 83 years old. Altered mental status RADIATION DOSAGE (If Supplied By Facility): CTDIvol = ( 20.80 ) mGy, DLP = ( 384.27 ) mGycm TECHNIQUE: Transaxial CT imaging of the brain was performed without administration of intravenous contrast material. Individualized dose optimization techniques were used for this CT. COMPARISON: August 16, 2018 FINDINGS: There continues to be an area of encephalomalacia involving the distribution of the left middle cerebral artery. There is currently no ipsilateral dilatation of the lateral ventricle on that side. There is no acute hemorrhage or acute infarction and no intra or extra-axial tumor mass. The calvarium is intact. There are no scalp swellings. The orbits, paranasal sinuses and mastoid air cells are normal. 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 No acute findings in the brain Electronically Signed: Johnathan Wakefield MD at 0:26 EST Tel , Service support ,
--- NOTE | 2018-09-28 22:50 | EKG12_ITS ---
Test Reason : CP Blood Pressure : / mmHG Vent. Rate : 109 BPM Atrial Rate : 109 BPM P-R Int : 000 ms QRS Dur : 134 ms QT Int : 338 ms P-R-T Axes : 000 -64 034 degrees QTc Int : 455 ms Atrial fibrillation with rapid ventricular response Right bundle branch block Left anterior fascicular block Bifascicular block Abnormal ECG Confirmed by BRET MACK, AMY ([id number]), film or videotape editor SARY MA ([id number] on 10/01/2018 2:55:25 PM Referred By: MARY Confirmed By:AMY QUEEN MD
[2018-09-28] MEDS: Acetaminophen 500 MG Tablet 1000 MG PO (22:58)
[2018-09-28] MEDS: 0.9% Normal Saline 1,000 ML 999 ML IV (23:00)
--- NOTE | 2018-09-28 23:01 | ED.DCSUM_ITS ---
History of Present Illness Chief Complaint: Alt LOC Informant: Patient, Family Limited by: - - altered Onset: Today - last several hours Context: Sudden Onset Timing: Continuous Quality: confused Current Severity: Moderate Maximum Severity: Moderate Associated Symptoms: pt denies any other sx Narrative: Patient recently had infected wounds on his legs, followed by rhabdomyolysis and admission to the hospital and then about a month in rehab. He has been confused this evening, family states he has been appearing to be short of breath off and on today although the patient denies it. They state that he has had a chronic right-sided pleural effusion of unknown etiology, they cannot remember if it is ever been tested or not but he has no history of heart issues, A. fib which he appears to be in now, or congestive heart failure. 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 (8) Lymphedema of lower extremity Status: Chronic (9) Nephrolithiasis Status: Chronic (10) Gout Status: Chronic (11) CKD (chronic kidney disease), stage III Status: Chronic (12) MRSA (methicillin resistant Staphylococcus aureus) infection Status: Inactive (13) Anemia Status: Chronic (14) Arthritis Status: Chronic Past Medical History - Allergies and Home Meds Allergies/Adverse Reactions: Allergies No Known Allergies Allergy (Verified 04/13/17 14:20) Primary Care Physician: Vijay Mason MD [Primary Care Provider] - Surgical History: - - Bilateral carotid endarectomy Smoking Status: Never smoker - Family History Paternal Family History: Family History (Last Reviewed 08/15/18 @ 11:35 by Bernardino Drake MD) Mother Hyperthyroidism Father Diabetes Aortic aneurysm rupture Family History: Reports: Diabetes Maternal Family History: Family History (Last Reviewed 08/15/18 @ 11:35 by Bernardino Drake MD) Mother Hyperthyroidism Father Diabetes Aortic aneurysm rupture Family History: Reports: Heart Disease Review of Systems ROS: Unable to Obtain - limitetd due to confusion General: Reports: Malaise. Denies: Chills, Fever, Sweats Eyes: Denies: Visual changes - bilaterally, Diplopia ENT: Denies: Bilateral ear pain, Sore throat Cardiovascular: Denies: Chest pain, Palpitations, Heart racing Respiratory: Denies: Dyspnea - although family states breathing fast today, Cough, Dyspnea on exertion Gastrointestinal: Denies: Abdominal pain, Nausea, Vomiting, Diarrhea, Melena, Hematochezia Genitourinary: Reports: Frequency - urinary incontinence - new. Denies: Dysuria, Hematuria Musculoskeletal: Reports: Swelling - BLE chronic. Denies: Extremity Pain Skin: Reports: Wounds - BLE x mos. Denies: Rash, Abscess Neurological: Denies: Headache, Weakness, Parasthesia, Numbness Endocrine: Denies: Polyuria, Polydipsia Allergy: Denies: Swelling of the mouth, Swelling of the tongue Physical Exam Vital Signs/Narrative: Vital Signs Temp Pulse Resp BP Pulse Ox 09/28/18 22:29 100.6 F H 110 H 37 H 141/77 H 94 Inital Vital Signs reviewed: Yes General: Well nourished, Well developed Head: Normocephalic, Atraumatic Eyes: Perrl, EOMI. Negative for: Scleral icterus ENT: No rhinorrhea, Dry mucous membranes. Negative for: Sinus tenderness Neck: Supple, Nontender, No lymphadenopathy, No JVD Cardiovascular: Irregular, Tachycardia Respiratory: Chest nontender, Rales - R base, Diminished - R base, - - tachypneic and abdominal breathing, conversive in full sentences Abdomen: Soft, Nontender, Nondistended, Normal bowel sounds Back: Nontender, Normal Inspection. Negative for: CVA tenderness Extremities: Nontender, Edema - 1+ BLE, mostly in feet, - - multiple healing wounds BLE lower legs, all nontender Skin: Normal color, - - erythema more distal LLE, nontender Neurological: Alert, Cranial nerves II-XII grossly intact, Normal Strength, Normal Sensation, Disoriented - year/month. oriented to person and place, and his relatives. Psychological: Normal affect Diagnostic/Tx/Re-eval Impressions Chest X-Ray 09/28/18 23:02 IMPRESSION: Cardiomegaly with central vascular congestive changes and areas of consolidation in the right lung representing either pneumonia or pulmonary edema. There is a small right-sided effusion is suspected Electronically Signed: Johnathan Wakefield MD at 23:53 EST Tel , Service support , 09/28/18 22:48 Brain/Head without Contrast [CT] Stat 09/28/18 23:02 Chest 1 View (Portable) [RAD] Stat Laboratory Results 09/28/18 09/28/18 09/28/18 22:33 22:33 22:33 WBC 16.1 H RBC 4.06 L Hgb 11.9 L Hct 37.5 L MCV 92.4 MCH 29.3 MCHC 31.7 L RDW 13.8 RDW Differential 45.5 H Plt Count 186 MPV 11.3 Immature Gran % (Auto) 0.300 Neut % (Auto) 93.1 H Lymph % (Auto) 2.2 L [place] % (Auto) 4.2 Eos % (Auto) 0.1 Baso % (Auto) 0.1 Absolute Neuts (auto) 15.0 H Absolute Lymphs (auto) 0.35 L Total Counted Not Reportable Differential Comment SCANNED Sodium 141 Potassium 4.3 Chloride 101 Carbon Dioxide 31.0 Anion Gap 9 BUN 50 H Creatinine 2.35 H Estim Creat Clear Calc 24.65 Est GFR (MDRD) Af Amer 34 L Est GFR (MDRD) Non-Af 28 L BUN/Creatinine Ratio 21.3 H Glucose 121 H Lactic Acid 2.1 H Calcium 8.7 Troponin I < 0.015 POC Glucose 09/28/18 22:33 WBC RBC Hgb Hct MCV MCH MCHC RDW RDW Differential Plt Count MPV Immature Gran % (Auto) Neut % (Auto) Lymph % (Auto) [place] % (Auto) Eos % (Auto) Baso % (Auto) Absolute Neuts (auto) Absolute Lymphs (auto) Total Counted Differential Comment Sodium Potassium Chloride Carbon Dioxide Anion Gap BUN Creatinine Estim Creat Clear Calc Est GFR (MDRD) Af Amer Est GFR (MDRD) Non-Af BUN/Creatinine Ratio Glucose Lactic Acid Calcium Troponin I POC Glucose 122 H - Rhythm Strip Rhythm Strip: A-fib Rate: 125 Ectopy: None - EKG Initial EKG Interpretation: No Acute Injury Pattern, Atrial Fibrillation - w/ RVR - Medical Decision Making With IV fluid bolusing, his heart rate has come down to the 80s, still in atrial fibrillation. Given his leukocytosis, fever, hypoxia, I suspect the chest x- ray findings represent pneumonia rather than pulmonary edema or CHF. He is feeling well and wants some water, which he is okay with drinking. Antibiotics are started in order to cover healthcare associated pneumonia, Zosyn and vancomycin. His lactate is 2.1, qualifying him for severe sepsis. Just over 30 cc/kg IV fluid bolus is ordered, he has not received it all yet. CT head report is pending, it appears to be unremarkable for any acute abnormality. Will discuss with hospitalist for PCU admission. Procedures Critical care time (excluding procedures): 30-74 minutes - 35 min ED Disposition - Plan for ED Patient: Disposition: [facility] Chief Complaint: Alt LOC Diagnosis: HCAP (healthcare-associated pneumonia), Acute kidney injury superimposed on chronic kidney disease, Atrial fibrillation with RVR, Severe sepsis, Delirium due to another medical condition, Hypoxemia Referrals: Vijay Mason MD [Primary Care Provider] -
--- NOTE | 2018-09-28 23:02 | RAD_ITS ---
STUDY: X-RAY CHEST REASON FOR EXAM: Male, 83 years old. Shortness of breath TECHNIQUE: One view COMPARISON: August 14, 2018 FINDINGS: There is some loss of volume of the right lung-presumably from a partial pneumonectomy, with areas of patchy consolidations identified in the right lung. The right hemidiaphragm is slightly elevated. There is a right-sided effusion is suspected. There are platelike atelectatic changes in the left base. The heart is enlarged.. Normal visualized thoracic spine. Normal visualized ribs, clavicles, and shoulders. There is no demonstrated abnormality of the visualized soft tissue structures of the upper abdomen. RAD/Chest 1 View (Portable) IMPRESSION: Cardiomegaly with central vascular congestive changes and areas of consolidation in the right lung representing either pneumonia or pulmonary edema. There is a small right-sided effusion is suspected Electronically Signed: Johnathan Wakefield MD at 23:53 EST Tel , Service support ,
[2018-09-28 23:04] LABS: Absolute Lymphocyte Count 0.35 X10^3/ul (0.83-4.51); Basophil# 0.01 X10^3/uL; Basophil% 0.1 % (0-1); Eosinophil# 0.01 X10^3/uL; Eosinophils% 0.1 % (0-5); Hematocrit 37.5 % (40-54); Hemoglobin 11.9 g/dl (13.0-16.5); Lymphocyte # 0.35 X10^3/ul (4.0); Lymphocyte % 2.2 % (19-41); Mean Corp Hgb Conc 31.7 g/gl (32-36); Mean Corpuscular Hgb 29.3 pg (27.0-32.0); Mean Corpuscular Volume 92.4 fL (80-94); Mean Platelet Vol. 11.3 fl (6.2-12.0); Monocyte# 0.67 X10^3/uL; Monocyte% 4.2 % (0-10); Neutrophil # 14.99 X10^3/uL (2.7-7.7); Neutrophil % 93.1 % (47-70); Platelet Count 186 K/mm3 (150-450); RBC Distribution Width CV 13.8 % (11.6-14.6); RBC Distribution Width SD 45.5 fl (35.1-43.9); Red Blood Count 4.06 M/mm3 (4.6-6.2); White Blood Count 16.1 K/mm3 (4.4-11.0)
[2018-09-28 23:05] LABS: Bedside Glucose 122 mg/dL (70-110); Differential Indicated SCAN CRITERIA MET; POSITIVE COUNT NO; POSITIVE DIFFERENTIAL YES; POSITIVE MORPHOLOGY NO
[2018-09-28 23:14] LABS: Anion Gap 9 (5-15); BUN 50 mg/dL (7-18); BUN/Creat Ratio 21.3 RATIO (10-20); Calcium,Total 8.7 mg/dL (8.5-10.1); Chloride 101 mmol/L (98-107); Creatinine, Serum 2.35 mg/dL (0.70-1.30); EST Glomerular Filtration Rate 28 mL/min (>60); Est Glom Filt Rate - Afr Amer 34 mL/min (>60); Estimated Creatinine Clearance 24.65 ml/min; Glucose 121 mg/dL (74-106); Potassium 4.3 mmol/L (3.5-5.1); Sodium Level 141 mmol/L (136-145)
[2018-09-28 23:15] LABS: Lactic Acid 2.1 mmol/L (0.4-2.0)
[2018-09-28 23:23] LABS: Differential Comment SCANNED
[2018-09-28 23:35] VITALS: BP 127/64; PULSE 101; RESP 32; O2SAT 96
[2018-09-28 23:58] LABS: Bacteria 0 SEEN /hpf (None Seen); Mucous, Urine 0 SEEN /hpf (<or=2+)
[2018-09-29] VITALS (22 sets, daily range): BP systolic 96–151; BP diastolic 46–69; PULSE 56–108; RESP 18–36; TEMP 36.4–36.9; O2SAT 93–98; BMI 25.7
[2018-09-29 00:02] LABS: Color, Urine Yellow (Yellow); Glucose, Dipstick Normal (Normal); Ketone-Dipstick Negative (Negative); Leukocyte Esterase-Dipstick 25 /ul (Negative); Nitrite-Dipstick Negative (Negative); Occult Blood-Urine 10 /ul (Negative); Protein-Dipstick 500 mg/dl (Negative); Urine Clarity Cloudy (Clear); Urine Urobilinogen 1 mg/dl (Normal)
[2018-09-29 00:03] LABS: Urine Bilirubin Dipstick 1 mg/dL (Negative)
--- NOTE | 2018-09-29 00:05 | HP.PCM_ITS ---
Problem List (1) Acute kidney injury superimposed on chronic kidney disease Status: Acute (2) Atrial fibrillation with RVR Status: Acute (3) Delirium due to another medical condition Status: Acute (4) HCAP (healthcare-associated pneumonia) Status: Acute History of Present Illness Date of Admission: 09/29/18 Chief Complaint: shortness of breath The patient is a 83 year old M with a significant history of CVA status post bilateral carotid endarterectomy; hypertension; chronic lymphedema who was hospitalized at our hospital on 08/14/2018 and discharged on 08/19/2018 for bilateral leg cellulitis, JOSEF on CKD, rhabdomyolysis, metabolic encephalopathy secondary to uremia and was subsequently discharged to a transitional care unit; who presents with increasing shortness of breath a few hours before his admission. Family reported that earlier in the day patient was weak. Later on he began to have shortness of breath at rest and was confused. His symptoms were progressively worsening. In the past week patient he has had a nonproductive cough. At the emergency department patient was found to have tachycardia, tachypnea; leukocytosis and was found in A. fib with RVR. His chest x-ray showed cardiomegaly with a severe pulmonary congestion. Brain CT scan at the ED did not show any acute pathology. 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) Lymphedema of lower extremity (Chronic) Nephrolithiasis (Chronic) Gout (Chronic) CKD (chronic kidney disease), stage III (Chronic) BPH (benign prostatic hyperplasia) (Chronic) Benign hypertension (Chronic) Anemia (Chronic) Chronic renal insufficiency, stage III (moderate) (Chronic) Nonstaphylococcal scalded skin syndrome (Chronic) Arthritis (Chronic) Allergies No Known Allergies Allergy (Verified 04/13/17 14:20) Home Medications: Ambulatory Orders Medication Instructions Recorded Allopurinol 300 mg PO DAILY 10/10/16 Cholecalciferol (Vitamin D3) 50,000 unit PO BURGOS 10/10/16 [Vitamin D3] Labetalol [Trandate (Beta Lily)] 200 mg PO BID 10/10/16 Pravastatin [Pravachol] 40 mg PO QHS 10/10/16 Aspirin E.C. [Ecotrin] 81 mg PO DAILY 08/14/18 Finasteride [Proscar] 5 mg PO DAILY 08/19/18 Acetaminophen [Tylenol] 1,000 mg PO Q8H PRN tablet 09/11/18 Epoetin Royer [Procrit] 10,000 units SC Q14D ml 09/11/18 Furosemide [Lasix] 40 mg PO DAILY #30 tablet 09/11/18 Iron Polysaccharide Complex 150 mg PO DAILYCM #30 capsule 09/11/18 [Ferrex 150] Menthol/Lanolin/Calamine/Znox 1 applic TOPICAL tube 09/11/18 [Calmoseptine Ointment] Surgical History: - - Bilateral carotid endarectomy Lives: With Family Smoking Status: Never smoker Alcohol: Occasional - *Family History Paternal Family History: Family History (Last Reviewed 09/29/18 @ 01:26 by Chase Zavala MD) Mother Hyperthyroidism Father Diabetes Aortic aneurysm rupture History Items: Diabetes Maternal Family History: Family History (Last Reviewed 09/29/18 @ 01:26 by Chase Zavala MD) Mother Hyperthyroidism Father Diabetes Aortic aneurysm rupture History Items: Heart Disease Review of Systems Constitutional: Denies: Chills, Fever, Weight Change HEENT: Denies: Head Aches, Sinus Congestion, Sinus Drainage Cardiovascular: Denies: Chest Pain, Palpitations Respiratory: Reports: Cough, Shortness of breath at rest. Denies: Sputum production Gastrointestinal: Denies: Abdominal Pain, Nausea, Vomiting Genitourinary: Denies: Dysuria Musculoskeletal: Denies: Joint Pain, Joint Tenderness Skin: Reports: Wounds - Bilateral leg wound.. Denies: Rash Neurological: Denies: Numbness, Tingling, Focal weakness Psychiatric: Denies: Anxiety, Depression, Homicidal Ideations, Suicidal Ideations Hematologic/ Lymphatic: Denies: Easy Bruising, Easy Bleeding VTE Information - Inpt Only VTE Present on Admission: No VTE Mechan Device Prophylaxis: None VTE Pharm Prophylaxis ordered?: No Reason prophylaxis not ordered:: Treatment Not Indicated - Patient has been started on heparin for Afib. - Physical Exam General: Alert, Oriented x3 - Patient new the month but not the year. He thought the year was . With some hesistancy he mentioned the name of the president, Cooperative HEENT: Atraumatic, Normocephalic Neck: Supple, No JVD, Negative Carotid Bruits Lungs: Wheezes Cardiovascular: No murmurs, Irregular Rate Abdomen: Bowel Sounds Present, Soft, Non Tender Extremities: Edema - Bilateral leg edema Skin: Ulcer/ Wound - Bilateral leg wounds. Musculoskeletal: No Tenderness to Palpation of Joints or Extremities Neurological: Neuro grossly intact - Except patient did not know the year and she had some hesitancy before mentioned the name of the president of the [facility]. Psych/Mental Status: Normal Affect, Appropriate Vital Signs Temp Pulse Resp BP Pulse Ox 100.6 F H 101 H 32 H 127/64 H 96 09/28/18 22:29 09/28/18 23:35 09/28/18 23:35 09/28/18 23:35 09/28/18 23:35 Oxygen Flow Rate (L/min) 3 Oxygen Delivery Method Nasal Cannula Weight: 79.2 kg Body Mass Index (BMI) 25.7 Finger Stick Blood Glucose 122 Laboratory Tests Past 24 Hrs 09/28/18 09/28/18 09/28/18 22:33 22:33 22:33 WBC 16.1 H RBC 4.06 L Hgb 11.9 L Hct 37.5 L MCV 92.4 MCH 29.3 MCHC 31.7 L RDW 13.8 RDW Differential 45.5 H Plt Count 186 MPV 11.3 Immature Gran % (Auto) 0.300 Neut % (Auto) 93.1 H Lymph % (Auto) 2.2 L [place] % (Auto) 4.2 Eos % (Auto) 0.1 Baso % (Auto) 0.1 Absolute Neuts (auto) 15.0 H Absolute Lymphs (auto) 0.35 L Total Counted Not Reportable Differential Comment SCANNED Sodium 141 Potassium 4.3 Chloride 101 Carbon Dioxide 31.0 Anion Gap 9 BUN 50 H Creatinine 2.35 H Estim Creat Clear Calc 24.65 Est GFR (MDRD) Af Amer 34 L Est GFR (MDRD) Non-Af 28 L BUN/Creatinine Ratio 21.3 H Glucose 121 H Lactic Acid 2.1 H Calcium 8.7 Troponin I < 0.015 Urine Color Urine Clarity Urine pH Ur Specific [place] Urine Protein Urine Glucose (UA) Urine Ketones Urine Occult Blood Urine Nitrite Urine Bilirubin Urine Urobilinogen Ur Leukocyte Esterase Urine RBC Urine WBC Ur Squamous Epith Cells Urine Bacteria Urine Mucus 09/28/18 23:55 WBC RBC Hgb Hct MCV MCH MCHC RDW RDW Differential Plt Count MPV Immature Gran % (Auto) Neut % (Auto) Lymph % (Auto) [place] % (Auto) Eos % (Auto) Baso % (Auto) Absolute Neuts (auto) Absolute Lymphs (auto) Total Counted Differential Comment Sodium Potassium Chloride Carbon Dioxide Anion Gap BUN Creatinine Estim Creat Clear Calc Est GFR (MDRD) Af Amer Est GFR (MDRD) Non-Af BUN/Creatinine Ratio Glucose Lactic Acid Calcium Troponin I Urine Color Yellow Urine Clarity Cloudy Urine pH 5.0 Ur Specific [place] 1.020 Urine Protein 500 H Urine Glucose (UA) Normal Urine Ketones Negative Urine Occult Blood 10 H Urine Nitrite Negative Urine Bilirubin 1 H Urine Urobilinogen 1 H Ur Leukocyte Esterase 25 H Urine RBC Pending Urine WBC Pending Ur Squamous Epith Cells Pending Urine Bacteria Pending Urine Mucus Pending POC Glucose 09/28/18 22:33 POC Glucose 122 H Assessment/Plan All Active Problems Staphylococcal scalded skin syndrome (Acute) 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) Sepsis affecting skin (Acute) Rhabdomyolysis (Acute) Acute kidney injury superimposed on chronic kidney disease (Acute) Hyperkalemia (Acute) Metabolic encephalopathy (Acute) Cellulitis of leg (Acute) HCAP (healthcare-associated pneumonia) (Acute) Atrial fibrillation with RVR (Acute) Severe sepsis (Acute) Delirium due to another medical condition (Acute) Hypoxemia (Acute) Wound infection (Acute) Confusion (Acute) Sepsis (Acute) The patient is a 83 year old M with a significant history of CVA status post bilateral carotid endarterectomy; hypertension; chronic lymphedema who was hospitalized at the hospital on 08/14/2018 and discharged on 08/19/2018 for bilateral leg cellulitis, AK I on CKD, rhabdomyolysis, metabolic encephalopathy secondary to uremia and was subsequently discharged to a transitional care unit who presented with increasing shortness of breath; confusion and weakness and with radiographic evidence of pulmonary congestion consistent with sepsis secondary to hospital associated pneumonia. Sepsis secondary to hospital associated pneumonia. Lactic acid: 2.1; trend RR ~29-37 Tachycardia: Atrial fibrillation with RVR with rate of about 110 Oxygen saturation: Initially 86% on 6 L Temperature 100.6. White count of 16.1 Patient meets SIRS criteria. Source of infection is his lungs. qSOFA score of 2 points (altered mental status; respiratory rate more than 22). CURB 65: 3 (confusion, uremia, increased respiratory rate) Blood culture ?2 is pending Chest x-ray: Showed cardiomegaly with central vascular congestive changes and areas of consolidation in the right lung representing either pneumonia or pulmonary edema. There is small right-sided effusion suspected. I reviewed chest x-ray and I agree with radiologist's reading. Patient has a dry cough; sputum culture not ordered. Antibiotics: Patient received vancomycin and Zosyn at emergency department. Vancomycin and Zosyn will be continued with renal adjustments. Pharmacy to dose vancomycin. Patient received IV normal saline hydration which improved his heart rate. We will continue maintenance normal saline IV infusion especially as patient has AK I on CKD.. DuoNeb scheduled. Albuterol as needed Legionella antigen screen and Strep antigen ordered Prednisone 40 mg x1 was ordered due to severity of his pneumonia and wheezing on examination. Supplemental oxygen to maintain saturation of more than 90%. Echocardiogram to rule out any underlying heart failure. Trend CBC and BMP. Atrial fibrillation [id number] Score: Age >=75 (2 points) ; HTN (1 point); Stroke history (2 points) = 5 points. 7.2% stroke risk per year Admitted to PCU on telemetry Obtain echo Since patient is having AK I on CKD with creatinine clearance of 24.65 Lovenox was not ordered. Heparin bolus and drip ordered. No rate control at this time except continuation of his home labetalol. Patient's heart rate improved with IV fluids. Likely infection threw him into A. fib. TSH and magnesium level ordered. Sodium and potassium were unremarkable. We will consult cardiology to optimize management. JOSEF on CKD His creatinine on admission was 2.35. His creatinine about a month ago was 1.49. Baseline creatinine is about 1.42. BUN on admission was 50. BUN over creatinine is 21.3. Likely etiology is prerenal. However can not rule out intrinsic renal failure from sepsis. Gentle IV hydration with normal saline. Avoid nephrotoxic's. If JOSEF does not improve can consider urinary studies and imaging. Trend BMP. Acute encephalopathy Brain CT without any acute pathology but with old infarct involving the left middle cerebral artery distribution.. Likely secondary to sepsis due to hospitalization associated pneumonia. Continue treatment of sepsis as above. Generalized weakness Likely due to stress sepsis due to pneumonia. Treatment of sepsis as above. PT and OT to work patient. Hypertension At Admission blood pressure was not within goal. Continue home labetalol. Trend blood pressure and adjust blood pressure medication as necessary. Chronic lymphedema with wound Patient takes Lasix at home because of lymphedema. We will hold Lasix at this time because of sepsis with AK I. Continue Adaptic and Kerlix roll to bilateral legs Wound care consult. DVT prophylaxis Not indicated in the setting of patient started on a heparin drip for A. fib. Code Visit Inpatient E&M: 96472 Init Hosp L3
[2018-09-29 00:07] LABS: Coarse Granular Cast 25-50 SEEN /lpf (0-5 /lpf)
[2018-09-29 00:08] LABS: Fine Granular Cast- Urine 5-10 SEEN /lpf (0-5); Hyaline Cast 0-5 SEEN /lpf (0-5)
[2018-09-29 00:09] LABS: Amorphous Sediment 3+; Red Blood Cells-Urine 0-5 SEEN /hpf (0-5); Squamous Epithelial Cells - UA 0-5 SEEN /hpf (0-5); White Blood Cells 0-5 SEEN /hpf (0-5)
[2018-09-29] MEDS: 0.9% Normal Saline 1,000 ML 999 ML IV (00:18)
--- NOTE | 2018-09-29 01:19 | ECHOD_ITS ---
Reason For Study: ATRIAL FIB-FLUTTER Procedure This was a 2D Doppler, Color Flow transthoracic echocardiogram. The study was technically difficult. Exam performed portable in patient room. Left Ventricle Normal LV size. Mild concentric left ventricular hypertrophy. Left ventricular systolic function is normal. The estimated ejection fraction is 55 %. There is evidence of diastolic dysfunction. No regional wall motion abnormalities noted. Right Ventricle Mildly dilated right ventricle. Normal systolic function. Atria The left atrium is mildly enlarged. The right atrium is mildly enlarged. No doppler evidence for ASD. Bubble contrast study negative for right to left interatrial shunt. Mitral Valve There is no mitral annular calcification. Normal mitral valve. Mild (1+) mitral valve insufficiency. Tricuspid Valve Normal tricuspid valve. Mild to moderate (1-2+) tricuspid valve insufficiency. Right ventricular systolic pressure estimated to be 64 mmHg. Aortic Valve Trisinus/trileaflet aortic valve. Mild focal aortic valve thickening. Pulmonic Valve The pulmonic valve is not well visualized. Great Vessels Normal sized aortic root. Pericardium/Pleural Trivial pericardial effusion. There are no echocardiographic indications of cardiac tamponade. Echolucency c/w a pleural effusion. Medication Performed a rapid injection of agitated mix of 9 cc saline and 1cc air to assess for atrial septal defect. MMode/2D Measurements & Calculations LVIDd: 5.2 cm IVSd: 1.4 cm Ao root diam: 3.2 cm LVIDs: 3.5 cm LVPWd: 1.3 cm RVDd: 4.4 cm FS: 31.5 % LAV(MOD-bp): 73.5 ml LVAd ap4: 34.9 cm2 SV(MOD-sp4): 53.3 ml LAV(MOD-bp) Indexed: 37.8 ml/m2 EDV(MOD-sp4): 111.4 ml LAV(MOD-sp2): 97.0 ml EDV(sp4-el): 114.5 ml LAV(MOD-sp4): 53.8 ml LVAs ap4: 22.6 cm2 ESV(MOD-sp4): 58.1 ml ESV(sp4-el): 55.1 ml EF(MOD-sp4): 47.8 % EF(sp4-el): 51.9 % SV(sp4-el): 59.4 ml LA A4 area: 20.7 cm2 LA dimension(2D): 3.9 cm RA A4 area: 21.1 cm2 Time Measurements MV dec time: 0.39 sec Doppler Measurements & Calculations MV E max alberto: 55.4 cm/sec Lat Peak E' Alberto: 7.8 cm/sec Med Peak E' Alberto: 6.3 cm/sec MV A max alberto: 84.3 cm/sec E/E' lat: 7.1 E/E' med: 8.7 MV E/A: 0.66 Ao V2 max: 148.1 cm/sec LV V1 max: 103.5 cm/sec PA V2 max: 81.7 cm/sec Ao max P.8 mmHg LV V1 max P.3 mmHg TR max alberto: 373.7 cm/sec TR max P.8 mmHg Interpretation Summary The study was technically difficult. Left ventricular systolic function is normal. The estimated ejection fraction is 55 %. Mild concentric left ventricular hypertrophy. Mildly dilated right ventricle. The left atrium is mildly enlarged. The right atrium is mildly enlarged. Mild (1+) mitral valve insufficiency. Mild to moderate (1-2+) tricuspid valve insufficiency. Mild focal aortic valve thickening. Trivial pericardial effusion. There are no echocardiographic indications of cardiac tamponade. Echolucency c/w a pleural effusion. Right ventricular systolic pressure estimated to be 64 mmHg c/w pulmonary hypertension. There is evidence of diastolic dysfunction. Bubble contrast study negative for right to left interatrial shunt. Ordering Physician: Chase Zavala Referring Physician: JORGE MORRIS Performed By: Carla Reardon RDCS
[2018-09-29 01:59] LABS: Magnesium 1.7 mg/dL (1.6-2.6); Thyroid Stim Hormone (TSH) 1.47 uIU/mL (0.358-3.74)
--- NOTE | 2018-09-29 02:17 | EKG12_ITS ---
Test Reason : RHYTHM CHANGE Blood Pressure : / mmHG Vent. Rate : 074 BPM Atrial Rate : 086 BPM P-R Int : 232 ms QRS Dur : 142 ms QT Int : 496 ms P-R-T Axes : 047 -50 -14 degrees QTc Int : 550 ms Sinus rhythm with marked sinus arrhythmia with 1st degree A-V block Right bundle branch block Left anterior fascicular block Bifascicular block Abnormal ECG Confirmed by BRET MACK, AMY ([id number]), image editor SARY MA ([id number]) on 10/03/2018 2:16:33 PM Referred By: DR NINA Confirmed By:AMY QUEEN MD
--- NOTE | 2018-09-29 02:18 | PCM.RX.CS ---
Consult Pharmacy has been consulted to manage selected antiobiotic: Vancomycin Type of Consult: New start Suspected Infection: Sepsis Prior Doses of Antibiotics Received/Current Regimen: Medications Vancomycin HCl 750 mg/ Sodium (Chloride) 265 mls @ 250 mls/hr IV Q24H ANDRE Discontinued Medications Vancomycin HCl 1,250 mg/ (Dextrose) 275 mls @ 250 mls/hr IV X1 ONE Stop: 09/29/18 01:00 Last Admin: 09/29/18 00:45 Dose: 250 mls/hr Labs: Sodium 141 mmol/L (136-145) 09/28/18 22:33 Potassium 4.3 mmol/L (3.5-5.1) 09/28/18 22:33 Chloride 101 mmol/L (98-107) 09/28/18 22:33 Carbon Dioxide 31.0 mmol/L (21.0-32.0) 09/28/18 22:33 Anion Gap 9 (5-15) 09/28/18 22:33 BUN 50 mg/dL (7-18) H 09/28/18 22:33 Creatinine 2.35 mg/dL (0.70-1.30) H 09/28/18 22:33 Est GFR (MDRD) Af Amer 34 mL/min (>60) L 09/28/18 22:33 Est GFR (MDRD) Non-Af 28 mL/min (>60) L 09/28/18 22:33 BUN/Creatinine Ratio 21.3 RATIO (10-20) H 09/28/18 22:33 Glucose 121 mg/dL (74-106) H 09/28/18 22:33 Weight used for dosin.8 kg Estimated Creatinine Clearance: 25 Goal Trough: 15-20 mcg/mL Pharmacy Plan for Drug Dosing: Pharmacy Service will continue to monitor and adjust dosing as required. Follow-Up Labs: Trough Vancomycin Labs to be done on [date and time ordered]: 10/01/18 @0030
[2018-09-29 02:38] LABS: International Normalized Ratio 1.6; Prothrombin Time (Protime)PT. 19.2 SECONDS (11.7-14.9)
[2018-09-29 02:39] LABS: Partial Thromboplast Time 58.1 Seconds (24.1-36.2)
[2018-09-29] MEDS: predniSONE 20 MG Tablet 40 MG PO (02:47)
[2018-09-29] MEDS: 0.9% NaCl Peripheral Flush Adult/Peds IV (02:47)
[2018-09-29] MEDS: 0.9% Normal Saline 1,000 ML 75 ML IV ×2 (02:48→20:10)
[2018-09-29] MEDS: Heparin Injection (Vial) 5,000 UNIT/ML VIAL 5000 UNIT IV (02:51)
[2018-09-29] MEDS: HEPARIN/D5w 25,000 UNITS 25,000 UNITS/250 ML IV.SOLN. 11 UNITS IV ×2 (02:51→23:12)
[2018-09-29 02:57] LABS: Reflex Lactate? Y
[2018-09-29 03:31] LABS: Hematocrit 31.4 % (40-54); Hemoglobin 9.6 g/dl (13.0-16.5); Mean Corp Hgb Conc 30.6 g/gl (32-36); Mean Corpuscular Volume 91.5 fL (80-94); Mean Platelet Vol. 11.1 fl (6.2-12.0); Platelet Count 141 K/mm3 (150-450); RBC Distribution Width CV 14.1 % (11.6-14.6); RBC Distribution Width SD 47.4 fl (35.1-43.9); Red Blood Count 3.43 M/mm3 (4.6-6.2); White Blood Count 12.3 K/mm3 (4.4-11.0)
[2018-09-29 03:33] LABS: Scan Indicated on CBC? Y/N NO
[2018-09-29 03:44] LABS: Anion Gap 10 (5-15); BUN 51 mg/dL (7-18); Calcium,Total 7.7 mg/dL (8.5-10.1); Chloride 104 mmol/L (98-107); Creatinine, Serum 2.32 mg/dL (0.70-1.30); EST Glomerular Filtration Rate 29 mL/min (>60); Est Glom Filt Rate - Afr Amer 35 mL/min (>60); Estimated Creatinine Clearance 24.16 ml/min; Glucose 127 mg/dL (74-106); Potassium 3.7 mmol/L (3.5-5.1); Sodium Level 142 mmol/L (136-145)
[2018-09-29 03:49] LABS: Lactic Acid 1.1 mmol/L (0.4-2.0)
[2018-09-29] MEDS: Magnesium Hydroxide 30 ML UDC PO (05:09)
[2018-09-29] MEDS: Piperacil/Tazobactam 3.375 GM/50 ML ML IV ×3 (05:09→21:43)
[2018-09-29] MEDS: Ipratropium/Albuterol Sulfate 3 ML AMPUL.NEB INHALATION ×4 (07:40→20:20)
[2018-09-29] MEDS: Allopurinol 300 MG Tablet PO (08:48)
[2018-09-29] MEDS: Iron Polysaccharide Complex 150 MG CAPSULE PO (08:48)
[2018-09-29] MEDS: Aspirin E.C. 81 MG Tablet PO (08:48)
[2018-09-29 09:14] LABS: Partial Thromboplast Time 69.4 Seconds (24.1-36.2)
[2018-09-29] MEDS: Labetalol 200 MG Tablet PO ×2 (10:36→21:44)
[2018-09-29] MEDS: Finasteride 5 MG Tablet PO (10:36)
--- NOTE | 2018-09-29 11:46 | PCM.PN.BLA ---
Progress Note This is an 83 years old male patient presented to the ED because of worsening shortness of breath, confusion and weakness and was found to have cardiomegaly, patchy infiltration on the whole right lung in addition to the left base as well as right pleural effusion. On admission, patient did have evidence of sepsis with elevated lactic acid, low-grade fever, tachycardia and hypoxia. Started on IV vancomycin and Zosyn for healthcare associated pneumonia. Today, patient seen and examined. He states that he feels a little bit better, less short of breath. Still complaining of cough with no sputum production. He had no spike a fever this morning, heart rate stabilized, blood pressure stable, pulse ox is 96% on 4 L. On examination: Chest: Decreased breath sounds bilateral, more on the right side, coarse crackles, rhonchi. Short of breath. Heart: S1-S2 normal, no murmur. Abdomen: Soft, nontender. Extremities:++ edema bilaterally. Assessment and plan: #1 healthcare associated pneumonia with sepsis. On IV antibiotics. #2 acute hypoxic respiratory failure: Secondary to above. #3 probable acute on chronic CHF, unspecified: At this time, patient is on IV fluids because of sepsis. He denied any history of CAD or CHF in the past. 2D echocardiogram ordered, BMP will be ordered. #4 AK I on CKD: On gentle IV fluids for hydration. Plan to repeat BMP tomorrow morning. #5 encephalopathy, likely metabolic secondary to pneumonia plan as above. CT scan brain without acute findings. Today, patient is awake, alert and oriented x3.
[2018-09-29 12:22] LABS: BNP,B-Type NATRIURETIC PEPTIDE 236.5 pg/mL (0-100)
--- NOTE | 2018-09-29 13:35 | PCM.CONS.C ---
Problem List (1) Atrial fibrillation with RVR Status: Acute (2) Hyperlipidemia Status: Chronic (3) Hypertension Status: Chronic (4) Carotid artery disease Status: Acute (5) Chronic renal insufficiency, stage III (moderate) Status: Chronic (6) Lymphedema Status: Chronic (7) Pneumonia Status: Acute (8) Pleural effusion, right Status: Chronic Reason for Consult Date of Consultation: 09/29/18 History of Present Illness: The patient is a 83 year old white male with a past complex medical history who is referred for evaluation of atrial fibrillation superimposed on history of hyperlipidemia, hypertension, carotid artery disease status post bilateral carotid endarterectomy-remote, chronic renal insufficiency, lymphedema, concerns of pneumonia, and a right-sided pleural effusion. The patient has been in and out of the [facility] and its associated transitional care unit recently for his complex medical history. He presented back based upon concerns of a cough, being somewhat short of breath, diminished appetite, and his personal concerns of having an underlying infection. He did not complain of ongoing chest discomfort classic for angina pectoris. He did state he had acid reflux which he believes was relieved by antacids. He has not not noted any acute orthopnea or PND. He has chronic lower extremity peripheral pitting edema which is been attributed to lymphedema. There has been no near syncope or syncope. He has denied any obvious palpitations. He does not believe he has gone through any cardiovascular diagnostic studies in the past. He has been evaluated. He was found to have negative troponin I levels. He was noted to be in atrial fibrillation. An ECG demonstrated atrial fibrillation with left axis deviation with right bundle branch block and a left anterior fascicular block. He was noted to have spontaneous return to sinus rhythm. A chest x-ray had been performed which suggested increased pulmonary vascularity/infiltrates especially right sided as well as a right sided pleural effusion. He has been placed on medical management. He is already been on beta-lily therapy with labetalol/Normodyne. He was placed on anticoagulant therapy with IV heparin. He is also been placed on dual IV antibiotic therapy. [] Past Medical History Allergies/Adverse Reactions: Allergies No Known Allergies Allergy (Verified 04/13/17 14:20) Home Medications: Ambulatory Orders Medication Instructions Recorded Allopurinol 300 mg PO DAILY 10/10/16 Cholecalciferol (Vitamin D3) 50,000 unit PO BURGOS 10/10/16 [Vitamin D3] Labetalol [Trandate (Beta Lily)] 200 mg PO BID 10/10/16 Aspirin E.C. [Ecotrin] 81 mg PO DAILY 08/14/18 Finasteride [Proscar] 5 mg PO DAILY 08/19/18 Acetaminophen [Tylenol] 1,000 mg PO Q8H PRN tablet 09/11/18 Epoetin Royer [Procrit] 10,000 units SC Q14D ml 09/11/18 Furosemide [Lasix] 40 mg PO DAILY #30 tablet 09/11/18 Iron Polysaccharide Complex 150 mg PO DAILYCM #30 capsule 09/11/18 [Ferrex 150] Menthol/Lanolin/Calamine/Znox 1 applic TOPICAL tube 09/11/18 [Calmoseptine Ointment] Past Medical History (Chronic Problems): Chronic Problems Leg ulcer (Chronic) Lymphedema (Chronic) Pleural effusion, right (Chronic) Hypertension (Chronic) Benign prostatic hyperplasia (Chronic) Chronic kidney disease (Chronic) Stroke (Chronic) Hyperlipidemia (Chronic) Cellulitis (Chronic) 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) Lymphedema of lower extremity (Chronic) Nephrolithiasis (Chronic) Gout (Chronic) CKD (chronic kidney disease), stage III (Chronic) BPH (benign prostatic hyperplasia) (Chronic) Benign hypertension (Chronic) Anemia (Chronic) Chronic renal insufficiency, stage III (moderate) (Chronic) Nonstaphylococcal scalded skin syndrome (Chronic) Arthritis (Chronic) Surgical History: - - Bilateral carotid endarectomy - *Family History Paternal Family History: Family History (Last Reviewed 09/29/18 @ 01:26 by Chase Zavala MD) Mother Hyperthyroidism Father Diabetes Aortic aneurysm rupture History Items: Diabetes Maternal Family History: Family History (Last Reviewed 09/29/18 @ 01:26 by Chase Zavala MD) Mother Hyperthyroidism Father Diabetes Aortic aneurysm rupture History Items: Heart Disease Lives: With Family Smoking Status: Never smoker Alcohol: Occasional Drugs: None Review of Systems - Review of Systems General: Reports: Fatigue. Denies: Fever, Night Sweats Cardiovascular: Reports: Shortness of Breath, Peripheral Edema. Denies: Chest Discomfort, Orthopnea, PND, Palpitations, Lightheadedness, Dizziness, Near Syncope, Syncope Respiratory: Reports: Non Productive Cough, Shortness of Breath. Denies: Cough, Sputum Production, Hemoptysis Gastrointestinal: Reports: Heart Burn. Denies: Hematemesis, Hematochezia, Melena Genitourinary: Denies: Dysuria, Hematuria Skin: Denies: Rash Subjectve: This is an 83-year-old white male who appears to be resting comfortably at the moment in no acute distress. Objective: Vital Signs Temp Pulse Resp BP Pulse Ox 98.3 F 82 18 151/69 H 96 09/29/18 10:30 09/29/18 11:07 09/29/18 11:03 09/29/18 10:30 09/29/18 10:30 Oxygen Flow Rate (L/min) 4 Oxygen Delivery Method Nasal Cannula Weight: 173 lb 8.061 oz Body Mass Index (BMI) 25.7 Finger Stick Blood Glucose 122 Intake and Output for Last 24 Hours 09/27/18 09/28/18 09/29/18 23:59 23:59 23:59 Intake Total 599 / 599 Output Total 70 / 70 Balance 529 / 529 General: Awake, Alert, Oriented x 3, Cooperative, No Acute Distress HEENT: Atraumatic, Normocephalic, PERRL, EOMI, Sclera Non Icteric Oral: Moist Mucosa Neck: Supple, Good ROM, No JVD Lungs: Diminished Right Base Cardiovascular: Regular Rhythm, Normal S1, Normal S2 Vascular: Delfino Carotid Artery Bruits Abdomen: Bowel Sounds Present, Soft, Non Tender Extremities: Moderate RLE Edema, Moderate LLE Edema Psych/Mental Status: Appropriate 09/28/18 22:33: WBC 16.1 H, RBC 4.06 L, Hgb 11.9 L, Hct 37.5 L, MCV 92.4, MCH 29.3, MCHC 31.7 L, RDW 13.8, RDW Differential 45.5 H, Plt Count 186, MPV 11.3, Immature Gran % (Auto) 0.300, Neut % (Auto) 93.1 H, Lymph % (Auto) 2.2 L, [place] % (Auto) 4.2, Eos % (Auto) 0.1, Baso % (Auto) 0.1, Absolute Neuts (auto) 15.0 H, Total Counted Not Reportable 09/28/18 22:33: Sodium 141, Potassium 4.3, Chloride 101, Carbon Dioxide 31.0, Anion Gap 9, BUN 50 H, Creatinine 2.35 H, Est GFR (MDRD) Af Amer 34 L, Est GFR (MDRD) Non-Af 28 L, BUN/Creatinine Ratio 21.3 H, Glucose 121 H, Calcium 8.7, Troponin I < 0.015 09/28/18 22:33: Lactic Acid 2.1 H 09/28/18 22:33: Magnesium 1.7 09/28/18 23:55: Urine Color Yellow, Urine Clarity Cloudy, Urine pH 5.0, Ur Specific Matteson 1.020, Urine Protein 500 H, Urine Glucose (UA) Normal, Urine Ketones Negative, Urine Occult Blood 10 H, Urine Nitrite Negative, Urine Bilirubin 1 H, Urine Urobilinogen 1 H, Ur Leukocyte Esterase 25 H, Urine RBC 0-5 SEEN, Urine WBC 0-5 SEEN 09/29/18 02:20: PT 19.2 H, INR 1.6, APTT 58.1 H 09/29/18 03:14: Sodium 142, Potassium 3.7, Chloride 104, Carbon Dioxide 28.0, Anion Gap 10, BUN 51 H, Creatinine 2.32 H, Est GFR (MDRD) Af Amer 35 L, Est GFR (MDRD) Non-Af 29 L, BUN/Creatinine Ratio 22.0 H, Glucose 127 H, Calcium 7.7 L 09/29/18 03:14: WBC 12.3 H, RBC 3.43 L, Hgb 9.6 L, Hct 31.4 L, MCV 91.5, MCH 28.0, MCHC 30.6 L, RDW 14.1, RDW Differential 47.4 H, Plt Count 141 L, MPV 11.1 09/29/18 03:14: Lactic Acid 1.1 09/29/18 03:14: B-Natriuretic Peptide 236.5 H 09/29/18 08:46: APTT 69.4 H Rhythm: As noted above EKG: As noted above with subsequent ECG demonstrating sinus rhythm CXR: As noted above Assessment/Plan 1. Paroxysmal atrial fibrillation The patient demonstrated evidence of paroxysmal atrial fibrillation. The etiology may be related to a combination of factors including his age, history of hypertension, underlying pulmonary disease, infectious related issues, etc. At the present time he has returned to sinus rhythm. He will continue to be monitored. He will continue medical therapy. This will include his beta-lily therapy and anticoagulant therapy. At the moment he is on IV heparin. Depending upon his clinical course consideration will be given to the need for future transition to oral systemic anticoagulant therapy. In the interim he will also undergo further evaluation. This will include a transthoracic echocardiogram to evaluate his atrial size as well as his ventricular wall motion and systolic function. 2. Hyperlipidemia He will continue lipid-lowering therapy as deemed appropriate. 3. Hypertension His blood pressure will need to be followed. His medications can be adjusted as deemed appropriate. 4. Carotid artery disease status post bilateral carotid endarterectomy This does place the patient is a higher risk for having other forms of arterial occlusive disease such as coronary artery disease. At the moment he has no evidence of ongoing acute coronary syndrome. However he will need to be monitored for any obvious evidence of underlying CAD that may require further evaluation and care as his clinical course progresses. 5. Chronic renal insufficiency This will need to be taken into consideration if the patient would require any type of evaluation regarding IV contrast could lead to IV contrast mediated nephropathy. 6. Lymphedema Patient has chronic bilateral lower extremity peripheral pitting edema which she has attributed to lymphedema. He will continue diuretic therapy as deemed appropriate. His renal function will be followed. 7. Pneumonia There is concern based on the patient's symptoms and his examination and his radiologic findings that he has underlying pneumonia. He will need to continue medical management and follow-up. 8. Pleural effusion The patient does have the appearance of a right-sided pleural effusion. Hopefully this will improve with medical therapy. If not he may need to be considered for thoracentesis. Comment: The above was discussed with the patient and his [id number] who was present at this time. This note was generated using a voice recognition system and there may be incorrect words, spelling or punctuation that were not noted when reviewing the office note prior to saving.
[2018-09-29] MEDS: Furosemide 20 MG/2 ML VIAL IV (14:28)
[2018-09-29 15:44] LABS: Partial Thromboplast Time 69.4 Seconds (24.1-36.2)
--- NOTE | 2018-09-29 19:01 | NURSING ---
Reviewed and agreed on all charting with Sameera Stoner RN
[2018-09-29] MEDS: Menthol/Lanolin/Calamine/Znox 113 GM Tube 1 APPLIC TOPICAL (21:42)
[2018-09-29 21:43] LABS: Partial Thromboplast Time 62.6 Seconds (24.1-36.2)
[2018-09-29] MEDS: Pravastatin 40 MG Tablet PO (21:44)
[2018-09-30] VITALS (18 sets, daily range): BP systolic 115–153; BP diastolic 55–82; PULSE 64–104; RESP 16–22; TEMP 36.3–37.4; O2SAT 87–98
[2018-09-30 05:25] LABS: Absolute Lymphocyte Count 0.31 X10^3/ul (0.83-4.51); Absolute Neutrophil Count 7.4 X10^3/uL (2.0-7.7); Hematocrit 30.7 % (40-54); Hemoglobin 9.4 g/dl (13.0-16.5); Lymphocyte # 0.31 X10^3/ul (4.0); Lymphocyte % 3.9 % (19-41); Mean Corp Hgb Conc 30.6 g/gl (32-36); Mean Corpuscular Hgb 27.8 pg (27.0-32.0); Mean Corpuscular Volume 90.8 fL (80-94); Mean Platelet Vol. 10.8 fl (6.2-12.0); Monocyte% 3.8 % (0-10); Neutrophil # 7.35 X10^3/uL (2.7-7.7); Neutrophil % 92.3 % (47-70); Platelet Count 128 K/mm3 (150-450); RBC Distribution Width CV 13.9 % (11.6-14.6); RBC Distribution Width SD 46.6 fl (35.1-43.9); Red Blood Count 3.38 M/mm3 (4.6-6.2)
[2018-09-30 05:29] LABS: Differential Indicated SCAN CRITERIA MET; POSITIVE COUNT NO; POSITIVE DIFFERENTIAL YES; POSITIVE MORPHOLOGY NO
[2018-09-30 05:30] LABS: Partial Thromboplast Time 70.6 Seconds (24.1-36.2)
[2018-09-30] MEDS: Piperacil/Tazobactam 3.375 GM/50 ML ML IV (05:33)
[2018-09-30] MEDS: Menthol/Lanolin/Calamine/Znox 113 GM Tube 1 APPLIC TOPICAL (05:33)
[2018-09-30 05:44] LABS: Anion Gap 10 (5-15); BUN 71 mg/dL (7-18); BUN/Creat Ratio 27.8 RATIO (10-20); Calcium,Total 7.9 mg/dL (8.5-10.1); Chloride 106 mmol/L (98-107); Creatinine, Serum 2.55 mg/dL (0.70-1.30); EST Glomerular Filtration Rate 26 mL/min (>60); Est Glom Filt Rate - Afr Amer 31 mL/min (>60); Estimated Creatinine Clearance 21.98 ml/min; Glucose 115 mg/dL (74-106); Potassium 3.9 mmol/L (3.5-5.1); Sodium Level 144 mmol/L (136-145)
[2018-09-30 05:46] LABS: Differential Comment SCANNED
--- NOTE | 2018-09-30 05:55 | EKG12_ITS ---
Test Reason : AM EKG Blood Pressure : / mmHG Vent. Rate : 061 BPM Atrial Rate : 078 BPM P-R Int : 228 ms QRS Dur : 144 ms QT Int : 486 ms P-R-T Axes : 057 -61 005 degrees QTc Int : 489 ms Sinus rhythm with 1st degree A-V block with occasional Premature ventricular complexes and Premature atrial complexes Right bundle branch block Left anterior fascicular block Bifascicular block Abnormal ECG Confirmed by BRET MACK, AMY ([id number]), publication editor SARY MA ([id number]) on 10/03/2018 2:14:38 PM Referred By: JOSE Confirmed By:AMY QUEEN MD
[2018-09-30] MEDS: Ipratropium/Albuterol Sulfate 3 ML AMPUL.NEB INHALATION ×4 (07:20→19:44)
[2018-09-30] MEDS: Aspirin E.C. 81 MG Tablet PO (10:36)
[2018-09-30] MEDS: Allopurinol 300 MG Tablet PO (10:38)
[2018-09-30] MEDS: Furosemide 20 MG/2 ML VIAL IV (10:39)
[2018-09-30] MEDS: Labetalol 200 MG Tablet PO ×2 (10:40→21:25)
[2018-09-30] MEDS: 0.9% Normal Saline 1,000 ML 75 ML IV (10:59)
[2018-09-30] MEDS: Finasteride 5 MG Tablet PO (11:03)
[2018-09-30] MEDS: Iron Polysaccharide Complex 150 MG CAPSULE PO (11:03)
--- NOTE | 2018-09-30 11:49 | CON.PCM_ITS ---
Reason for Consult: Pneumococcal pneumonia with bacteremia Consulted by: Dr. Siddqiui History of Present Illness: The patient is a 83 year old M [] This is an 83-year-old gentleman with multiple comorbidities including previous stroke and underwent carotid endarterectomy in the past, chronic renal disease, chronic lymphedema of his lower extremities with recent multiple hospitalizations over the last 6 months who presents with progressive weakness and confusion. Patient denies any respiratory distress nor phlegm production. He did have evidence of new onset atrial fibrillation and an abnormal chest x- ray on admission. His admission blood cultures from September 28 are growing Streptococcus pneumoniae. Patient was initially placed on parenteral vancomycin and Zosyn. He is currently on ceftriaxone. Patient denies any active or history of tobacco abuse and denies any active alcohol abuse. Denies any pleuritic chest pain. He is on nasal cannula O2 at this time no gastrointestinal distress no urological symptoms. 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) Lymphedema of lower extremity (Chronic) Nephrolithiasis (Chronic) Gout (Chronic) CKD (chronic kidney disease), stage III (Chronic) BPH (benign prostatic hyperplasia) (Chronic) Benign hypertension (Chronic) Anemia (Chronic) Chronic renal insufficiency, stage III (moderate) (Chronic) Nonstaphylococcal scalded skin syndrome (Chronic) Arthritis (Chronic) Allergies/Adverse Reactions: Allergies No Known Allergies Allergy (Verified 04/13/17 14:20) Home Medications: Ambulatory Orders Medication Instructions Recorded Allopurinol 300 mg PO DAILY 10/10/16 Cholecalciferol (Vitamin D3) 50,000 unit PO BURGOS 10/10/16 [Vitamin D3] Labetalol [Trandate (Beta Lily)] 200 mg PO BID 10/10/16 Aspirin E.C. [Ecotrin] 81 mg PO DAILY 08/14/18 Finasteride [Proscar] 5 mg PO DAILY 08/19/18 Acetaminophen [Tylenol] 1,000 mg PO Q8H PRN tablet 09/11/18 Epoetin Royer [Procrit] 10,000 units SC Q14D ml 09/11/18 Furosemide [Lasix] 40 mg PO DAILY #30 tablet 09/11/18 Iron Polysaccharide Complex 150 mg PO DAILYCM #30 capsule 09/11/18 [Ferrex 150] Menthol/Lanolin/Calamine/Znox 1 applic TOPICAL tube 09/11/18 [Calmoseptine Ointment] Review of Systems Comment: Noncontributory Vital Signs Temp Pulse Resp BP Pulse Ox 97.9 F 78 20 H 133/80 H 95 09/30/18 09:35 09/30/18 11:25 09/30/18 11:25 09/30/18 09:35 09/30/18 09:35 Oxygen Flow Rate (L/min) 1 Oxygen Delivery Method Nasal Cannula Weight: 79.4 kg Body Mass Index (BMI) 25.7 Finger Stick Blood Glucose 122 Microbiology Past 72 Hours 09/28/18 22:33 Blood Culture - Preliminary Blood Culture (Wb) - Anticubital Right Streptococcus pneumoniae 09/28/18 22:38 Bacteria Detection (PCR) - Final Blood Culture (Wb) - Right Wrist Streptococcus pneumoniae Blood Culture - Preliminary Streptococcus pneumoniae 09/29/18 10:30 Legionella Antigen - Final Urine Catheter - Catheter 09/29/18 10:30 Streptococcus pneumoniae Antigen (M - Final Urine Catheter - Catheter Streptococcus pneumonia Ag Laboratory Tests Past 24 Hrs 09/29/18 09/29/18 09/29/18 03:14 14:46 15:18 WBC RBC Hgb Hct MCV MCH MCHC RDW RDW Differential Plt Count MPV Immature Gran % (Auto) Neut % (Auto) Lymph % (Auto) Mcduffie % (Auto) Eos % (Auto) Baso % (Auto) Absolute Neuts (auto) Absolute Lymphs (auto) Total Counted Differential Comment APTT Cancelled 69.4 H Sodium Potassium Chloride Carbon Dioxide Anion Gap BUN Creatinine Estim Creat Clear Calc Est GFR (MDRD) Af Amer Est GFR (MDRD) Non-Af BUN/Creatinine Ratio Glucose Calcium B-Natriuretic Peptide 236.5 H 09/29/18 09/30/18 09/30/18 21:15 05:14 05:14 WBC 8.0 RBC 3.38 L Hgb 9.4 L Hct 30.7 L MCV 90.8 MCH 27.8 MCHC 30.6 L RDW 13.9 RDW Differential 46.6 H Plt Count 128 L MPV 10.8 Immature Gran % (Auto) 0.000 Neut % (Auto) 92.3 H Lymph % (Auto) 3.9 L Mcduffie % (Auto) 3.8 Eos % (Auto) 0.0 Baso % (Auto) 0.0 Absolute Neuts (auto) 7.4 Absolute Lymphs (auto) 0.31 L Total Counted Not Reportable Differential Comment SCANNED APTT 62.6 H Sodium 144 Potassium 3.9 Chloride 106 Carbon Dioxide 28.0 Anion Gap 10 BUN 71 H Creatinine 2.55 H Estim Creat Clear Calc 21.98 Est GFR (MDRD) Af Amer 31 L Est GFR (MDRD) Non-Af 26 L BUN/Creatinine Ratio 27.8 H Glucose 115 H Calcium 7.9 L B-Natriuretic Peptide 09/30/18 05:14 WBC RBC Hgb Hct MCV MCH MCHC RDW RDW Differential Plt Count MPV Immature Gran % (Auto) Neut % (Auto) Lymph % (Auto) [place]duff[place] % (Auto) Eos % (Auto) Baso % (Auto) Absolute Neuts (auto) Absolute Lymphs (auto) Total Counted Differential Comment APTT 70.6 H Sodium Potassium Chloride Carbon Dioxide Anion Gap BUN Creatinine Estim Creat Clear Calc Est GFR (MDRD) Af Amer Est GFR (MDRD) Non-Af BUN/Creatinine Ratio Glucose Calcium B-Natriuretic Peptide - Other Studies Radiology: [] Other Studies: [] Route of nutrition/ use of supplements: [] Nutritional Intake: [] IV Site: [] Lloyd Catheter: [] Patient is alert chronically ill-appearing in no acute distress. Lungs some coarse breath sounds right lung field heart exam S1-S2 abdomen soft no focal tenderness. He does have bilateral chronic lymphedema with chronic ulcerations. - Assessment/Plan Antibiotics: [] Assessment/Plan: [] Active and Suspected Problems Acute kidney injury superimposed on chronic kidney disease (Acute) HCAP (healthcare-associated pneumonia) (Acute) Atrial fibrillation with RVR (Acute) Severe sepsis (Acute) Delirium due to another medical condition (Acute) Hypoxemia (Acute) Pneumonia (Acute) Carotid artery disease (Acute) Pneumococcal pneumonia with bacteremia and elderly man. I agree with daily ceftriaxone 2 g daily, will have sensitivities of the pneumococcus in the next 24 hours. Continue current antibiotic therapy and supportive care.
[2018-09-30] MEDS: Ceftriaxone 2 GM in 0.9% NS 50 ML Minibag x1 IV (12:46)
--- NOTE | 2018-09-30 15:35 | CASEMGMT ---
HAL LEDBETTER assessment: Face to Face with patient for initial transition planning/care coordination assessment. HAL LEDBETTER introduced self and role at [facility], pt voices understanding and consents to assessment at this time. Pt is sitting up in bed in no distress at this time with nasal cannula in place. Pt is A/O x4 at this time and answers all questions appropriately at this time. Care providers, pharmacy, and demographics verified/updated at this time. PCP: Marlon Specialists: Masci-onc/hemat; Holden, uro Preferred Pharmacy: [facility] Insurance: [facility] A/B, [employer] Prescription Benefit: [employer] Living Will/HPOA: Pt states does not currently have LW/HPOA and declines info at this time. Pt states 'my son is working on this.' LNOK: Demetri Gaytan, son; Maximiliano Merrill, grandson Living Arrangements: Pt states that his grandson lives with him in a tri-level home and that they are currently getting rails installed on all stairs. Pt also states that they are in the process of getting 2 bathrooms updated to be handicap accessible. Transportation: Pt states drives self and states no transportation concerns at this time. DME/HHC: Pt states has the following DME: shower chair, grab bars, cane, and walker. Pt states no need for any further DME at this time. Pt states was recently in TCU and is current with [facility]HC for RN, PT/OT. Pt states no concerns with going home at time of discharge. Pt states is retired. Pt states does not smoke or drink ETOH. CM to follow for home oxygen need and any further discharge planning/needs. Pt voices no further concerns/needs at this time. Advised pt to ask for CM if any further questions/concerns/needs arise, voices understanding. Plan[place]ET[place]
--- NOTE | 2018-09-30 15:47 | NURSING ---
wound photo: left posterior lower leg
--- NOTE | 2018-09-30 15:56 | PN_ITS ---
Patient Problems: Active and Suspected Problems Acute kidney injury superimposed on chronic kidney disease (Acute) HCAP (healthcare-associated pneumonia) (Acute) Atrial fibrillation with RVR (Acute) Severe sepsis (Acute) Delirium due to another medical condition (Acute) Hypoxemia (Acute) Pneumonia (Acute) Carotid artery disease (Acute) Subjective: Pt remains somewhat confused concerning the reason he came to the hospital. His daughter in law is present and states he was progressively more confused at home. He has a nonproductive occasional cough. No CP. No further fever/chills. He has been choking on pills and has a hx of dysphagia. - Physical Exam General: Alert, Oriented x3, Cooperative HEENT: Atraumatic, PERRLA, EOMI, Normocephalic Neck: Supple, No JVD, Negative Carotid Bruits Lungs: Diminished, Rales Cardiovascular: Regular rate, No murmurs Abdomen: Bowel Sounds Present, Soft, Non Tender Extremities: No edema, Capillary Refill Less than 3 Seconds Skin: No rashes, No breakdown Musculoskeletal: No Tenderness to Palpation of Joints or Extremities Neurological: Cranial nerves II-XII grossly intact Psych/Mental Status: Normal Affect, Appropriate, Alert and oriented to time, place, person, mood and affect Vital Signs Temp Pulse Resp BP Pulse Ox 97.4 F L 72 18 153/82 H 95 09/30/18 15:28 09/30/18 15:28 09/30/18 15:28 09/30/18 15:28 09/30/18 15:28 Oxygen Flow Rate (L/min) 2 Oxygen Delivery Method Nasal Cannula Weight: 175 lb 0.752 oz Body Mass Index (BMI) 25.7 Finger Stick Blood Glucose 122 Intake and Output for Last 24 Hours 09/28/18 09/29/18 09/30/18 23:59 23:59 23:59 Intake Total 1157.7 / 1157.7 3134.8 / 3134.8 Output Total 70 / 70 450 / 450 Balance 1087.7 / 1087.7 2684.8 / 2684.8 Microbiology Past 72 Hours 09/28/18 22:33 Blood Culture - Preliminary Blood Culture (Wb) - Anticubital Right Streptococcus pneumoniae 09/28/18 22:38 Bacteria Detection (PCR) - Final Blood Culture (Wb) - Right Wrist Streptococcus pneumoniae Blood Culture - Preliminary Streptococcus pneumoniae 12/02/18 10:30 Legionella Antigen - Final Urine Catheter - Catheter 09/29/18 10:30 Streptococcus pneumoniae Antigen (M - Final Urine Catheter - Catheter Streptococcus pneumonia Ag Laboratory Tests Past 24 Hrs 09/29/18 09/29/18 09/30/18 15:18 21:15 05:14 WBC 8.0 RBC 3.38 L Hgb 9.4 L Hct 30.7 L MCV 90.8 MCH 27.8 MCHC 30.6 L RDW 13.9 RDW Differential 46.6 H Plt Count 128 L MPV 10.8 Immature Gran % (Auto) 0.000 Neut % (Auto) 92.3 H Lymph % (Auto) 3.9 L [place] % (Auto) 3.8 Eos % (Auto) 0.0 Baso % (Auto) 0.0 Absolute Neuts (auto) 7.4 Absolute Lymphs (auto) 0.31 L Total Counted Not Reportable Differential Comment SCANNED APTT 69.4 H 62.6 H Sodium Potassium Chloride Carbon Dioxide Anion Gap BUN Creatinine Estim Creat Clear Calc Est GFR (MDRD) Af Amer Est GFR (MDRD) Non-Af BUN/Creatinine Ratio Glucose Calcium 09/30/18 09/30/18 05:14 05:14 WBC RBC Hgb Hct MCV MCH MCHC RDW RDW Differential Plt Count MPV Immature Gran % (Auto) Neut % (Auto) Lymph % (Auto) [place] % (Auto) Eos % (Auto) Baso % (Auto) Absolute Neuts (auto) Absolute Lymphs (auto) Total Counted Differential Comment APTT 70.6 H Sodium 144 Potassium 3.9 Chloride 106 Carbon Dioxide 28.0 Anion Gap 10 BUN 71 H Creatinine 2.55 H Estim Creat Clear Calc 21.98 Est GFR (MDRD) Af Amer 31 L Est GFR (MDRD) Non-Af 26 L BUN/Creatinine Ratio 27.8 H Glucose 115 H Calcium 7.9 L Medical Necessity - Tobacco Use Smoking Status: Never smoker Assessment/Plan All Active Problems 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 Sepsis with bacteremia 2/2 strep pna - + blood cultures, + right sided pna. Concern for aspiration. Speech consulted. No further fever. WBC elevation resolved. ID following. Echo pending. Continue IS/PEP therapy. He is also getting low dose IV lasix as there was some fluid on his CXR. DC IV fluids. Legionella antigen neg. 2. Afib with RVR - rate controlled now. Cardiology following. lebatolol, heparin drip. 3. Metabolic encephalopathy - seems mildly confused, but he has improved since admission. This is 2/2 sepsis and how he usually presents. CT brain with old infarct. 4. Iron def anemia - po iron 5. JOSEF on CKD III - Cr bump. Trend. DC fluids, provide lasix. May be a component of CHF. 6. Lymphedema - continue wound care. 7. Dysphagia - as above, ST ordered, cookie swallow. 8. HTN - stable DVT ppx: Heparin drip DC planning: PTOT. May need to go back to SNF. He came from home, recently in TCU. This patient was seen by Lion Green PA-C under the supervision of Doctor Siddiqui.
--- NOTE | 2018-09-30 17:41 | PCM.PN.CARD ---
Subjectve: The patient continues in the PCU. He is without acute cardiac complaint. He continues to undergo pulmonary evaluation and infectious disease evaluation and care. Objective: Vital Signs Temp Pulse Resp BP Pulse Ox 97.4 F L 72 18 153/82 H 95 09/30/18 15:28 09/30/18 15:28 09/30/18 15:28 09/30/18 15:28 09/30/18 15:28 Oxygen Flow Rate (L/min) 2.5 Oxygen Delivery Method Nasal Cannula Weight: 175 lb 0.752 oz Body Mass Index (BMI) 25.7 Finger Stick Blood Glucose 122 Intake and Output for Last 24 Hours 09/28/18 09/29/18 09/30/18 23:59 23:59 23:59 Intake Total 1157.7 / 1157.7 3254.8 / 3254.8 Output Total 70 / 70 450 / 450 Balance 1087.7 / 1087.7 2804.8 / 2804.8 General: Awake, Alert, Oriented x 3, Cooperative Lungs: Diminished Right Base Cardiovascular: Regular Rhythm, Premature Ectopic Beats, Normal S1, Normal S2 Abdomen: Bowel Sounds Present, Soft, Non Tender Extremities: Moderate RLE Edema, Moderate LLE Edema 09/29/18 21:15: APTT 62.6 H 09/30/18 05:14: WBC 8.0, RBC 3.38 L, Hgb 9.4 L, Hct 30.7 L, MCV 90.8, MCH 27.8, MCHC 30.6 L, RDW 13.9, RDW Differential 46.6 H, Plt Count 128 L, MPV 10.8, Immature Gran % (Auto) 0.000, Neut % (Auto) 92.3 H, Lymph % (Auto) 3.9 L, [place] % (Auto) 3.8, Eos % (Auto) 0.0, Baso % (Auto) 0.0, Absolute Neuts (auto) 7.4, Total Counted Not Reportable 09/30/18 05:14: Sodium 144, Potassium 3.9, Chloride 106, Carbon Dioxide 28.0, Anion Gap 10, BUN 71 H, Creatinine 2.55 H, Est GFR (MDRD) Af Amer 31 L, Est GFR (MDRD) Non-Af 26 L, BUN/Creatinine Ratio 27.8 H, Glucose 115 H, Calcium 7.9 L 09/30/18 05:14: APTT 70.6 H Rhythm: Sinus rhythm; PACs/PVCs; intermittent episodes potentially compatible with atrial fibrillation ECHO: Preliminary evaluation: Left ventricle normal with an LVEF 55%; mild right ventricular enlargement; mild biatrial enlargement; mild MR; mild to moderate TR; estimated RV systolic pressure of 64 mmHg compatible pulmonary hypertension; negative agitated saline contrast study for interatrial shunt: Please see official report Medical Necessity - Tobacco Use Smoking Status: Never smoker Assessment/Plan 1. Paroxysmal atrial fibrillation The patient demonstrated evidence of paroxysmal atrial fibrillation. The etiology may be related to a combination of factors including his age, history of hypertension, underlying pulmonary disease, infectious related issues, etc. He will continue medical therapy. This will include his beta-mavis therapy and anticoagulant therapy. At the moment he is on IV heparin. Depending upon his clinical course consideration will be given to the need for future transition to oral systemic anticoagulant therapy if he does not require other invasive procedures over time. 2. Hyperlipidemia He will continue lipid-lowering therapy as deemed appropriate. 3. Hypertension His blood pressure will need to be followed. His medications can be adjusted as deemed appropriate. 4. Carotid artery disease status post bilateral carotid endarterectomy This does place the patient is a higher risk for having other forms of arterial occlusive disease such as coronary artery disease. At the moment he has no evidence of ongoing acute coronary syndrome. However he will need to be monitored for any obvious evidence of underlying CAD that may require further evaluation and care as his clinical course progresses. 5. Chronic renal insufficiency This will need to be taken into consideration if the patient would require any type of evaluation regarding IV contrast could lead to IV contrast mediated nephropathy. 6. Lymphedema Patient has chronic bilateral lower extremity peripheral pitting edema which she has attributed to lymphedema. He will continue diuretic therapy as deemed appropriate. His renal function will be followed. 7. Pneumonia There is concern based on the patient's symptoms and his examination and his radiologic findings that he has underlying pneumonia. He is being evaluated by internal medicine and infectious disease. He is on antibiotic therapy. 8. Pleural effusion The patient does have the appearance of a right-sided pleural effusion. Hopefully this will improve with medical therapy. If not he may need to be considered for thoracentesis. This note was generated using a voice recognition system and there may be incorrect words, spelling or punctuation that were not noted when reviewing the office note prior to saving.
[2018-09-30] MEDS: guaiFENesin 1,200 MG Tablet 1200 MG PO (21:24)
[2018-09-30] MEDS: Pravastatin 40 MG Tablet PO (21:25)
[2018-10-01] VITALS (15 sets, daily range): BP systolic 112–140; BP diastolic 60–70; PULSE 59–91; RESP 15–24; TEMP 36.3–36.8; O2SAT 89–98
[2018-10-01] MEDS: HEPARIN/D5w 25,000 UNITS 25,000 UNITS/250 ML IV.SOLN. 11 UNITS IV ×2 (00:47→21:39)
[2018-10-01 06:58] LABS: Anion Gap 11 (5-15); BUN 74 mg/dL (7-18); BUN/Creat Ratio 27.7 RATIO (10-20); Calcium,Total 8.2 mg/dL (8.5-10.1); Chloride 104 mmol/L (98-107); Creatinine, Serum 2.67 mg/dL (0.70-1.30); EST Glomerular Filtration Rate 25 mL/min (>60); Est Glom Filt Rate - Afr Amer 30 mL/min (>60); Estimated Creatinine Clearance 20.99 ml/min; Glucose 117 mg/dL (74-106); Potassium 3.8 mmol/L (3.5-5.1); Sodium Level 143 mmol/L (136-145)
[2018-10-01] MEDS: Ipratropium/Albuterol Sulfate 3 ML AMPUL.NEB INHALATION ×4 (06:59→19:27)
[2018-10-01 07:06] LABS: Absolute Lymphocyte Count 0.24 X10^3/ul (0.83-4.51); Absolute Neutrophil Count 7.1 X10^3/uL (2.0-7.7); Eosinophil# 0.01 X10^3/uL; Eosinophils% 0.1 % (0-5); Hematocrit 30.3 % (40-54); Hemoglobin 9.3 g/dl (13.0-16.5); Lymphocyte # 0.24 X10^3/ul (4.0); Lymphocyte % 3.1 % (19-41); Mean Corp Hgb Conc 30.7 g/gl (32-36); Mean Corpuscular Hgb 28.4 pg (27.0-32.0); Mean Corpuscular Volume 92.7 fL (80-94); Mean Platelet Vol. 11.9 fl (6.2-12.0); Monocyte# 0.43 X10^3/uL; Monocyte% 5.5 % (0-10); Platelet Count 133 K/mm3 (150-450); RBC Distribution Width CV 13.9 % (11.6-14.6); Red Blood Count 3.27 M/mm3 (4.6-6.2); White Blood Count 7.8 K/mm3 (4.4-11.0)
[2018-10-01 07:07] LABS: Differential Indicated SCAN CRITERIA MET; POSITIVE COUNT NO; POSITIVE DIFFERENTIAL YES; POSITIVE MORPHOLOGY NO
[2018-10-01 07:09] LABS: Partial Thromboplast Time 84.3 Seconds (24.1-36.2)
[2018-10-01] MEDS: Aspirin E.C. 81 MG Tablet PO (08:37)
[2018-10-01] MEDS: Allopurinol 300 MG Tablet PO (08:37)
[2018-10-01] MEDS: Iron Polysaccharide Complex 150 MG CAPSULE PO (08:37)
[2018-10-01] MEDS: Labetalol 200 MG Tablet PO ×2 (08:38→21:33)
[2018-10-01] MEDS: Furosemide 20 MG/2 ML VIAL IV (08:38)
[2018-10-01] MEDS: guaiFENesin 1,200 MG Tablet 1200 MG PO ×2 (08:38→21:33)
[2018-10-01] MEDS: Finasteride 5 MG Tablet PO (08:38)
[2018-10-01] MEDS: 0.9% NaCl Peripheral Flush Adult/Peds IV (08:41)
--- NOTE | 2018-10-01 10:55 | RAD_ITS ---
STUDY: SWALLOWING STUDY REASON FOR EXAM: Male, 83 years old. Dysphagia. TECHNIQUE: The examination was performed with Speech Pathology in attendance. Under fluoroscopic observation, the patient ingested thin barium, thick barium, barium pudding, and barium coated cracker. FLUOROSCOPY TIME: 3:06 minutes/seconds. 2871 fluoroscopic images were obtained. RADIOLOGIST INVOLVEMENT: Radiologist was present and providing direct supervision. COMPARISON: None. FINDINGS: The following was observed during swallowing of the various mixtures of barium: There is a prolonged oral phase. Thin Barium: There was no evidence of aspiration or laryngeal penetration. Barium Pudding: There was no evidence of aspiration or laryngeal penetration. Moderate residual within the vallecula. Barium Coated Cracker: There was no evidence of aspiration or laryngeal penetration. RAD/Swallowing Function w/Video IMPRESSION: Normal tailored barium swallow study. No evidence of increased risk for aspiration. The swallow study findings were discussed with the patient by the speech pathologist at the conclusion of the examination. Please see speech pathology report for more information and recommendations. Electronically Signed: Stiven Ball MD at 11:40 EST Tel [phone], Service support ,
--- NOTE | 2018-10-01 13:23 | SP.MBSS_ITS ---
PRIMARY / SECONDARY DIAGNOSIS: HCAP/dysphagia REFERRING PHYSICIAN: Dr. Maureen Siddiqui CURRENT DIET: regular textures/thin liquids DENTITION: upper dentures in place, lower edentulous MENTAL STATUS: able to follow commands for participation in MBS RESPIRATORY STATUS: on 2L/min O2 via nasal cannula at time of MBS completion w/ diminished RLL lung sounds per most recent nursing documentation PREVIOUS MODIFIED BARIUM SWALLOW STUDY: n/a REASON FOR REFERRAL: Pt is an 83 YOM [facility] d/t shortness of breath, workup revealed sepsis with bacteremia secondary to gram positive pneumonia, atrial fibrillation w/ RVR, metabolic encephalopathy. Pt. known to [facility] [employer] department from admission earlier this year (Jul), reports intermittent purposeful throat clearing during intake, though it is uncertain as to why. Reports continued and somewhat worsened hypogeusia. Given the etiology for admission, multiple prior workup results, and lack of clarity identified at bedside, a modified barium swallow study was recommended. 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 08/14/2018 CT revealed increasing encephalomalacia in the left parietal lobe suggesting remote left MCA distribution infarct. 08/16/2018 CT revealed a remote left MCA distribution infarct STUDY FINDINGS: Patient participated in a Modified Barium Swallow (MBS) study on 10/01/2018. Dr. Ball was the radiologist present for this evaluation. This study was recorded in the lateral view and images were sent to PACs for storage. The following consistencies were presented to this patient for analysis of oropharyngeal swallow function: thin liquid, pudding, and a regular texture Syeda Doone shortbread cookie. Results of the MBS are as follows: PENETRATION / ASPIRATION SCALE (ERNST): 1 = does not enter airway 2 = enters airway/above vocal folds/ejected 3 = enters airway/above vocal folds/not ejected 4 = enters airway/contacts vocal folds/ejected 5 = enters airway/contacts vocal folds/not ejected 6 = enters airway/below vocal folds/ejected 7 = enters airway/below vocal folds/not ejected despite effort 8 = enters airway/below vocal folds/no effort PENETRATION / ASPIRATION SCALE (SCORE): Thin via 5mL - teaspoon: 1 Thin via cup: 1 Thin via cup: 1 Thin via straw: 1 Puddin Cookie: 1 Thin via cup: 1 Thin via cup - sequential swallows: 1 ORAL PHASE CHARACTERIZED BY: LABIAL SEAL: no labial escape TONGUE CONTROL DURING BOLUS MANIPULATION: Posterior escape of less than half of bolus BOLUS PREPARATION / MASTICATION: slow prolonged chewing/mashing with complete recollection BOLUS TRANSPORT / LINGUAL MOTION: slowed tongue motion ORAL RESIDUE: residue collection on oral structures PHARYNGEAL PHASE CHARACTERIZED BY: INITIATION OF PHARYNGEAL SWALLOW: bolus head in pyriforms at first hyoid excursion with 5mL tsp swallow following cued oral holding; bolus head at posterior angle of ramus at first hyoid excursion w/ all subsequent boluses presented SOFT PALATE ELEVATION: no bolus between soft palate and pharyngeal wall LARYNGEAL ELEVATION: partial superior movement of thyroid cartilage/partial approximation of arytenoids cartilage to epiglottic petiole ANTERIOR HYOID EXCURSION: partial anterior movement EPIGLOTTIC MOVEMENT: partial epiglottic inversion LARYNGEAL VESTIBULE CLOSURE AT HEIGHT OF SWALLOW: complete laryngeal vestibule closure with no air/contrast in laryngeal vestibule PHARYNGEAL STRIPPING WAVE: pharyngeal stripping wave present / diminished PHARYNGOESOPHAGEAL SEGMENT OPENING: partial distension and partial duration; partial obstruction of flow C4-5 osteophytes impeding bolus flow TONGUE BASE RETRACTION: narrow column of contrast between tongue base and posterior pharyngeal wall PHARYNGEAL RESIDUE: collection of residue within or on pharyngeal structures collection along tongue base, valleculae, contrast lining the aryepiglottic folds and pyriform sinuses ESOPHAGEAL PHASE CHARACTERIZED BY: ESOPHAGEAL BOLUS CLEARANCE IN THE UPRIGHT POSITION: esophageal retention EFFECTS OF TREATMENT STRATEGIES ATTEMPTED: Double swallow = somewhat effective Liquid chaser = somewhat effective IMPRESSION: This patient presents with mild oropharyngeal dysphagia. Oral phase is marked by: sufficient labial seal/oral containment; significantly prolonged mastication w/ slowed lingual motion resulting in difficulty collecting bolus cohesively for A-P transit. Pharyngeal phase is marked by: delayed pharyngeal swallow onset w/ 1st 5mL bolus only; improved timing for swallow onset w/ all subsequent boluses across consistencies assessed; reduced tongue base retraction/anterior hyoid movement resulting incomplete epiglottic inversion w/ tongue base/vallecular contrast collection; incomplete laryngeal elevation/diminished posterior pharyngeal stripping wave resulting in poor pharyngeal bolus clearance; complete laryngeal vestibule closure was achieved w/ no penetration or aspiration occurring throughout this study; partial obstruction of bolus flow at the C4-5 level d/t osteophytes impeding bolus flow w/ contrast retention atop the PES. Use of liquid wash and multiple swallow was only somewhat effective to reduce pharyngeal residue retention. Although penetration/aspiration did not occur under fluoroscopy, this patient is at an increased risk to aspirate if compensatory precautions not adhered to properly. DIET TEXTURE RECOMMENDATIONS: Will recommend a regular texture/thin liquid diet. COMPENSATORY STRATEGIES RECOMMENDED: double swallow, liquid chaser, seated upright at 90 degrees during PO intake, remain upright for 30-60 minutes post meal (GERD precaution) SKILLED SPEECH THERAPY This patient requires intensive skilled speech-language intervention targeting and implementation of recommended compensatory strategies and implementation of an oral/oropharyngeal strengthening exercise maintenance program to preserve current function and prevent future decline; exercises targeting lingual control and oral/pharyngeal strength. ADDITIONAL COMMENTS/RECOMMENDATIONS: Results and recommendations were discussed with the Patient immediately following MBS completion, with the Patient verbalizing understanding and agreement with all recommendations and education provided.
--- NOTE | 2018-10-01 14:10 | PN_ITS ---
Patient Problems: Active and Suspected Problems Acute kidney injury superimposed on chronic kidney disease (Acute) HCAP (healthcare-associated pneumonia) (Acute) Atrial fibrillation with RVR (Acute) Severe sepsis (Acute) Delirium due to another medical condition (Acute) Hypoxemia (Acute) Pneumonia (Acute) Carotid artery disease (Acute) Subjective: No palp, CP, dizziness, LH. His SOB at rest is improved. No fever/chills. He has a nonproductive cough. Apparently he refused to have his LE PATITO wraps reapplied by the wound nurse today. - Physical Exam General: Alert, Oriented x3, Cooperative HEENT: Atraumatic, PERRLA, EOMI, Normocephalic Neck: Supple, No JVD, Negative Carotid Bruits Lungs: Rales - Right side Cardiovascular: No murmurs, Irregular Rate Abdomen: Bowel Sounds Present, Soft, Non Tender Extremities: Capillary Refill Less than 3 Seconds, Edema Skin: No rashes, No breakdown Musculoskeletal: No Tenderness to Palpation of Joints or Extremities Neurological: Cranial nerves II-XII grossly intact Psych/Mental Status: Normal Affect, Appropriate Vital Signs Temp Pulse Resp BP Pulse Ox 97.3 F L 69 24 H 127/70 H 96 10/01/18 08:36 10/01/18 11:19 10/01/18 10:13 10/01/18 08:36 10/01/18 08:36 Oxygen Flow Rate (L/min) 2.5 Oxygen Delivery Method Nasal Cannula Weight: 179 lb 7.3 oz Body Mass Index (BMI) 25.7 Finger Stick Blood Glucose 122 Intake and Output for Last 24 Hours 09/29/18 09/30/18 10/01/18 23:59 23:59 23:59 Intake Total 1157.7 / 1157.7 4147.8 / 4147.8 378 / 378 Output Total 70 / 70 450 / 450 100 / 100 Balance 1087.7 / 1087.7 3697.8 / 3697.8 278 / 278 Microbiology Past 72 Hours 09/28/18 22:33 Blood Culture - Preliminary Blood Culture (Wb) - Anticubital Right Streptococcus pneumoniae 09/28/18 22:38 Bacteria Detection (PCR) - Final Blood Culture (Wb) - Right Wrist Streptococcus pneumoniae Blood Culture - Preliminary Streptococcus pneumoniae 09/29/18 10:30 Legionella Antigen - Final Urine Catheter - Catheter 12/02/18 10:30 Streptococcus pneumoniae Antigen (M - Final Urine Catheter - Catheter Streptococcus pneumonia Ag Laboratory Tests Past 24 Hrs 10/01/18 10/01/18 10/01/18 06:20 06:20 06:20 WBC 7.8 RBC 3.27 L Hgb 9.3 L Hct 30.3 L MCV 92.7 MCH 28.4 MCHC 30.7 L RDW 13.9 RDW Differential 45.0 H Plt Count 133 L MPV 11.9 Immature Gran % (Auto) 0.300 Neut % (Auto) 91.0 H Lymph % (Auto) 3.1 L [place] % (Auto) 5.5 Eos % (Auto) 0.1 Baso % (Auto) 0.0 Absolute Neuts (auto) 7.1 Absolute Lymphs (auto) 0.24 L Total Counted Not Reportable APTT 84.3 H Sodium 143 Potassium 3.8 Chloride 104 Carbon Dioxide 28.0 Anion Gap 11 BUN 74 H Creatinine 2.67 H Estim Creat Clear Calc 20.99 Est GFR (MDRD) Af Amer 30 L Est GFR (MDRD) Non-Af 25 L BUN/Creatinine Ratio 27.7 H Glucose 117 H Calcium 8.2 L Medical Necessity - Tobacco Use Smoking Status: Never smoker Assessment/Plan All Active Problems 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 Sepsis with bacteremia 2/2 strep pna - + blood cultures, + right sided pna. He does have mild dysphagia. No further fever. WBC elevation resolved. ID following. Echo pending. Continue IS/PEP therapy. He is also getting low dose IV lasix as there was some fluid on his CXR. DC IV fluids. Legionella antigen neg. 2. Afib with RVR - rate controlled now. Cardiology following. lebatolol, heparin drip. Echo shows EF 55%, 1-2+ TVI, RVSP 64 mmHg, pleural effusion, diastolic dysfunction. 3. Mild acute on chronic CHF exacerbation complicated by pulmonary htn - low dose IV lasix. Follow renal function. TSH normal. mag/phos pending. He does have elevated BNP, and pleural effusions on CXR. Repeat CXR in am. 4. Metabolic encephalopathy - This is 2/2 sepsis and how he usually presents. CT brain with old infarct. This seems to have stabilized. 5. Iron def anemia - po iron 6. JOSEF on CKD III - Cr bump. Trend. DC fluids, provide lasix. 7. Lymphedema - continue wound care. 8. Dysphagia - as above, ST ordered, cookie swallow. Diet per speech should be thin liquid, reg texture with recommended aspiration precautions in place: double swallow, liquid chaser, seated upright at 90 degrees during PO intake, remain upright for 30-60 minutes post meal (GERD precaution) 9. HTN - stable DVT ppx: Heparin drip DC planning: PTOT. May need to go back to SNF. He came from home, recently in TCU. This patient was seen by Lion Green PA-C under the supervision of Doctor Siddiqui.
[2018-10-01 14:26] LABS: Magnesium 1.8 mg/dL (1.6-2.6)
[2018-10-01 14:35] LABS: Phosphorus 3.8 mg/dL (2.5-4.9)
--- NOTE | 2018-10-01 15:27 | PN.CARD_ITS ---
Subjectve: The patient is awake and alert somewhat more so than yesterday. He denies any acute chest discomfort. He continues with his chronic shortness of breath. He has been recommended for further evaluation with a cookie swallow test. Objective: Vital Signs Temp Pulse Resp BP Pulse Ox 97.3 F L 69 24 H 127/70 H 96 10/01/18 08:36 10/01/18 11:19 10/01/18 10:13 10/01/18 08:36 10/01/18 08:36 Oxygen Flow Rate (L/min) 2.5 Oxygen Delivery Method Nasal Cannula Weight: 179 lb 7.3 oz Body Mass Index (BMI) 25.7 Finger Stick Blood Glucose 122 Intake and Output for Last 24 Hours 09/29/18 09/30/18 10/01/18 23:59 23:59 23:59 Intake Total 1157.7 / 1157.7 4147.8 / 4147.8 378 / 378 Output Total 70 / 70 450 / 450 100 / 100 Balance 1087.7 / 1087.7 3697.8 / 3697.8 278 / 278 General: Awake, Alert, Oriented x 3, Ill Appearing HEENT: Atraumatic, Normocephalic, PERRL, EOMI, Sclera Non Icteric Oral: Moist Mucosa Neck: Supple, Good ROM, No JVD Lungs: Diminished Right Base Cardiovascular: Regular Rhythm, Premature Ectopic Beats, Normal S1, Normal S2 Abdomen: Bowel Sounds Present, Soft, Non Tender Extremities: Moderate RLE Edema, Moderate LLE Edema Psych/Mental Status: Appropriate 10/01/18 06:20: APTT 84.3 H 10/01/18 06:20: WBC 7.8, RBC 3.27 L, Hgb 9.3 L, Hct 30.3 L, MCV 92.7, MCH 28.4, MCHC 30.7 L, RDW 13.9, RDW Differential 45.0 H, Plt Count 133 L, MPV 11.9, Immature Gran % (Auto) 0.300, Neut % (Auto) 91.0 H, Lymph % (Auto) 3.1 L, [place] % (Auto) 5.5, Eos % (Auto) 0.1, Baso % (Auto) 0.0, Absolute Neuts (auto) 7.1, Total Counted Not Reportable 10/01/18 06:20: Sodium 143, Potassium 3.8, Chloride 104, Carbon Dioxide 28.0, Anion Gap 11, BUN 74 H, Creatinine 2.67 H, Est GFR (MDRD) Af Amer 30 L, Est GFR (MDRD) Non-Af 25 L, BUN/Creatinine Ratio 27.7 H, Glucose 117 H, Calcium 8.2 L 10/01/18 06:20: Phosphorus 3.8 10/01/18 06:20: Magnesium 1.8 10/01/18 14:00: APTT 76.0 H Rhythm: Sinus rhythm; PACs/PVCs; intermittent episodes of atrial dysrhythmia Medical Necessity - Tobacco Use Smoking Status: Never smoker Assessment/Plan 1. Paroxysmal atrial fibrillation The patient demonstrated evidence of paroxysmal atrial fibrillation. The etiology may be related to a combination of factors including his age, history of hypertension, underlying pulmonary disease, infectious related issues, etc. He will continue medical therapy. This will include his beta-mavis therapy and anticoagulant therapy. At the moment he is on IV heparin. Depending upon his clinical course consideration will be given to the need for future transition to oral systemic anticoagulant therapy if he does not require other invasive procedures over time and it is deemed that he is safe on oral anticoagulant therapy. 2. Hyperlipidemia He will continue lipid-lowering therapy as deemed appropriate. 3. Hypertension His blood pressure will need to be followed. His medications can be adjusted as deemed appropriate. 4. Carotid artery disease status post bilateral carotid endarterectomy This does place the patient is a higher risk for having other forms of arterial occlusive disease such as coronary artery disease. At the moment he has no evidence of ongoing acute coronary syndrome. However he will need to be monitored for any obvious evidence of underlying CAD that may require further evaluation and care as his clinical course progresses. 5. Chronic renal insufficiency This will need to be taken into consideration if the patient would require any type of evaluation regarding IV contrast could lead to IV contrast mediated nephropathy. 6. Lymphedema Patient has chronic bilateral lower extremity peripheral pitting edema which she has attributed to lymphedema. He will continue diuretic therapy as deemed appropriate. His renal function will be followed. 7. Pneumonia There is concern based on the patient's symptoms and his examination and his radiologic findings that he has underlying pneumonia. He is being evaluated by internal medicine and infectious disease. He is on antibiotic therapy. 8. Pleural effusion The patient does have the appearance of a right-sided pleural effusion. Hopefully this will improve with medical therapy. If not he may need to be considered for thoracentesis. At the present time he will continue cardiovascular medical management as best as possible. He will continue evaluation care per internal medicine and infectious disease. This note was generated using a voice recognition system and there may be incorrect words, spelling or punctuation that were not noted when reviewing the office note prior to saving.
[2018-10-01 20:54] LABS: Partial Thromboplast Time 72.6 Seconds (24.1-36.2)
[2018-10-01] MEDS: Pravastatin 40 MG Tablet PO (21:33)
[2018-10-02] VITALS (10 sets, daily range): BP systolic 117–135; BP diastolic 52–59; PULSE 68–86; RESP 16–20; TEMP 36.6–36.8; O2SAT 92–94
--- NOTE | 2018-10-02 05:55 | RAD_ITS ---
STUDY: X-RAY CHEST REASON FOR EXAM: Male, 83 years old. Shortness of breath and dyspnea. TECHNIQUE: AP and lateral views of the chest. COMPARISON: Comparison is made with prior study dated September 28, 2018. FINDINGS: EKG electrodes are seen. Since prior study, there has been progressive increase in the right pleural effusion. Mild improvement in the right lung infiltration. Stable appearance of the left hemithorax. Normal size heart. Normal mediastinum and jordan. Normal visualized pulmonary arteries. There is atherosclerotic tortuosity of the aortic arch and descending thoracic aorta. There are diffuse degenerative changes of the visualized thoracic spine. Normal visualized ribs, clavicles, and shoulders. There is no demonstrated abnormality of the visualized soft tissue structures of the upper abdomen. RAD/Chest PA and Lateral IMPRESSION: Since prior study, there has been progressive increase in the right pleural effusion. Mild improvement in the right pulmonary infiltration. Electronically Signed: Stiven Ball MD at 13:51 EST Tel [phone], Service support ,
[2018-10-02 06:53] LABS: Anion Gap 9 (5-15); BUN 77 mg/dL (7-18); BUN/Creat Ratio 28.4 RATIO (10-20); Calcium,Total 8.5 mg/dL (8.5-10.1); Chloride 105 mmol/L (98-107); Creatinine, Serum 2.71 mg/dL (0.70-1.30); EST Glomerular Filtration Rate 24 mL/min (>60); Est Glom Filt Rate - Afr Amer 29 mL/min (>60); Estimated Creatinine Clearance 20.68 ml/min; Glucose 124 mg/dL (74-106); Potassium 3.9 mmol/L (3.5-5.1); Sodium Level 143 mmol/L (136-145)
[2018-10-02 06:57] LABS: Absolute Lymphocyte Count 0.26 X10^3/ul (0.83-4.51); Basophil# 0.01 X10^3/uL; Basophil% 0.1 % (0-1); Eosinophil# 0.02 X10^3/uL; Eosinophils% 0.2 % (0-5); Hematocrit 31.6 % (40-54); Hemoglobin 9.6 g/dl (13.0-16.5); Lymphocyte # 0.26 X10^3/ul (4.0); Mean Corp Hgb Conc 30.4 g/gl (32-36); Mean Corpuscular Hgb 28.2 pg (27.0-32.0); Mean Corpuscular Volume 92.7 fL (80-94); Mean Platelet Vol. 11.3 fl (6.2-12.0); Monocyte# 0.48 X10^3/uL; Monocyte% 5.5 % (0-10); Neutrophil # 8.01 X10^3/uL (2.7-7.7); Partial Thromboplast Time 72.4 Seconds (24.1-36.2); Platelet Count 137 K/mm3 (150-450); RBC Distribution Width CV 14.1 % (11.6-14.6); RBC Distribution Width SD 45.9 fl (35.1-43.9); Red Blood Count 3.41 M/mm3 (4.6-6.2); White Blood Count 8.8 K/mm3 (4.4-11.0)
[2018-10-02 07:02] LABS: Differential Indicated SCAN CRITERIA MET; POSITIVE COUNT NO; POSITIVE DIFFERENTIAL YES; POSITIVE MORPHOLOGY NO
[2018-10-02] MEDS: Ipratropium/Albuterol Sulfate 3 ML AMPUL.NEB INHALATION ×2 (07:12→11:30)
[2018-10-02] MEDS: Allopurinol 300 MG Tablet PO (07:46)
[2018-10-02] MEDS: Iron Polysaccharide Complex 150 MG CAPSULE PO (07:46)
[2018-10-02] MEDS: Aspirin E.C. 81 MG Tablet PO (07:46)
--- NOTE | 2018-10-02 09:30 | PN.ID_ITS ---
Patient Problems: Active and Suspected Problems Acute kidney injury superimposed on chronic kidney disease (Acute) HCAP (healthcare-associated pneumonia) (Acute) Atrial fibrillation with RVR (Acute) Severe sepsis (Acute) Delirium due to another medical condition (Acute) Hypoxemia (Acute) Pneumonia (Acute) Carotid artery disease (Acute) Subjective: Patient is alert responsive states of poor appetite. Currently on 1 L nasal cannula. No significant respiratory distress. Tolerating ceftriaxone well. No nausea or vomiting Objective: Alert does not appear toxic lungs some coarse breath sounds heart exam S1-S2 abdomen soft nontender - Physical Exam Vital Signs Temp Pulse Resp BP Pulse Ox 98 F 68 20 H 135/59 H 93 10/02/18 03:15 10/02/18 07:12 10/02/18 07:12 10/02/18 03:15 10/02/18 07:38 Oxygen Flow Rate (L/min) 1 Oxygen Delivery Method Nasal Cannula Weight: 81 kg Body Mass Index (BMI) 25.7 Finger Stick Blood Glucose 122 Intake and Output for Last 24 Hours 09/30/18 10/01/18 10/02/18 23:59 23:59 23:59 Intake Total 4147.8 / 4147.8 966 / 966 174 / 174 Output Total 450 / 450 200 / 200 125 / 125 Balance 3697.8 / 3697.8 766 / 766 49 / 49 Microbiology Past 72 Hours 09/28/18 22:33 Blood Culture - Preliminary Blood Culture (Wb) - Anticubital Right Streptococcus pneumoniae 09/28/18 22:38 Bacteria Detection (PCR) - Final Blood Culture (Wb) - Right Wrist Streptococcus pneumoniae Blood Culture - Preliminary Streptococcus pneumoniae 09/29/18 10:30 Legionella Antigen - Final Urine Catheter - Catheter 09/29/18 10:30 Streptococcus pneumoniae Antigen (M - Final Urine Catheter - Catheter Streptococcus pneumonia Ag Laboratory Tests Past 24 Hrs 10/01/18 10/01/18 10/01/18 06:20 06:20 14:00 WBC RBC Hgb Hct MCV MCH MCHC RDW RDW Differential Plt Count MPV Immature Gran % (Auto) Neut % (Auto) Lymph % (Auto) [place] % (Auto) Eos % (Auto) Baso % (Auto) Absolute Neuts (auto) Absolute Lymphs (auto) Total Counted APTT 76.0 H Sodium Potassium Chloride Carbon Dioxide Anion Gap BUN Creatinine Estim Creat Clear Calc Est GFR (MDRD) Af Amer Est GFR (MDRD) Non-Af BUN/Creatinine Ratio Glucose Calcium Phosphorus 3.8 Magnesium 1.8 10/01/18 10/02/18 10/02/18 20:22 06:20 06:20 WBC 8.8 RBC 3.41 L Hgb 9.6 L Hct 31.6 L MCV 92.7 MCH 28.2 MCHC 30.4 L RDW 14.1 RDW Differential 45.9 H Plt Count 137 L MPV 11.3 Immature Gran % (Auto) 0.200 Neut % (Auto) 91.0 H Lymph % (Auto) 3.0 L [place] % (Auto) 5.5 Eos % (Auto) 0.2 Baso % (Auto) 0.1 Absolute Neuts (auto) 8.0 H Absolute Lymphs (auto) 0.26 L Total Counted Not Reportable APTT 72.6 H Sodium 143 Potassium 3.9 Chloride 105 Carbon Dioxide 29.0 Anion Gap 9 BUN 77 H Creatinine 2.71 H Estim Creat Clear Calc 20.68 Est GFR (MDRD) Af Amer 29 L Est GFR (MDRD) Non-Af 24 L BUN/Creatinine Ratio 28.4 H Glucose 124 H Calcium 8.5 Phosphorus Magnesium 10/02/18 06:20 WBC RBC Hgb Hct MCV MCH MCHC RDW RDW Differential Plt Count MPV Immature Gran % (Auto) Neut % (Auto) Lymph % (Auto) [place] % (Auto) Eos % (Auto) Baso % (Auto) Absolute Neuts (auto) Absolute Lymphs (auto) Total Counted APTT 72.4 H Sodium Potassium Chloride Carbon Dioxide Anion Gap BUN Creatinine Estim Creat Clear Calc Est GFR (MDRD) Af Amer Est GFR (MDRD) Non-Af BUN/Creatinine Ratio Glucose Calcium Phosphorus Magnesium Medical Necessity - Tobacco Use Smoking Status: Never smoker Route of nutrition/ use of supplements: [] Nutritional Intake: [] IV Site: [] Lloyd Catheter: [] - Assessment/Plan Pneumococcal pneumonia with bacteremia in an elderly male. Sensitivities of the streptococcal pneumoniae reviewed. Patient clinically stable on ceftriaxone. I did talk to Dr. Siddiqui regards to management of this patient if patient is discharged out of the hospital okay to go out on oral amoxicillin 500 mg p.o. twice daily for 7 more days
--- NOTE | 2018-10-02 09:54 | PCM.TXEXTCAR ---
- Diet 09/29/18 01:19 Diet: Cardiac/Low Cholesterol Food consistency:: Regular Liquid Consistency:: Regular/Thin - Routine Orders/Code Status Enema Frequency: Daily PRN Suppository Type: Dulcolax 10mg Suppository Frequency: Daily PRN - Wound(s) RFA distal Wound Type: Skin Tear RFA proximal Wound Type: Skin Tear LFA Wound Type: scabbed over skin tear Left inside of foot Wound Type: flaking of skin, cellulitis left heel Wound Type: flaking of skin, cellulitis R Foot Wound Type: flaking of skin, cellulitis Coccyx Wound Type: Pressure Injury left posterior lower leg Wound Type: 2 small superficial open areas Dressing Change: Adaptic - Allergies/Procedures Done in Hospital Allergies/Adverse Reactions: Allergies No Known Allergies Allergy (Verified 04/13/17 14:20) - Dietary and Speech Recommendations Dietitian Recommendations/Changes: Rec 1 packet Morales BID for wound healing- must be ordered from pharmacy. - Follow Up Care Primary Care Physician: Vijay Mason MD [Primary Care Provider] -
--- NOTE | 2018-10-02 10:01 | DCINST_ITS ---
- Discharge Diagnoses Current Active Problems: Current Active and Chronic Problems Acute kidney injury superimposed on chronic kidney disease (Acute) HCAP (healthcare-associated pneumonia) (Acute) Atrial fibrillation with RVR (Acute) Severe sepsis (Acute) Delirium due to another medical condition (Acute) Hypoxemia (Acute) Pneumonia (Acute) Carotid artery disease (Acute) You will use the following diet at home:: Cardiac Your food should be the consistency of: Regular Your liquids should be the consistency of: Regular/Thin Discharge Activity: Return to Normal Activity Allergies/Adverse Reactions: Allergies No Known Allergies Allergy (Verified 04/13/17 14:20) Medications to take at Discharge Allopurinol 300 mg PO DAILY 10/10/16 Cholecalciferol (Vitamin D3) [Vitamin D3] 50,000 unit PO BURGOS 10/10/16 Labetalol [Trandate (Beta Lily)] 200 mg PO BID 10/10/16 Aspirin E.C. [Ecotrin] 81 mg PO DAILY 08/14/18 Finasteride [Proscar] 5 mg PO DAILY 08/19/18 Epoetin Royer [Procrit] 10,000 units SC Q14D ml 09/11/18 Iron Polysaccharide Complex [Ferrex 150] 150 mg PO DAILYCM #30 capsule 09/11/18 Menthol/Lanolin/Calamine/Znox [Calmoseptine Ointment] 1 applic TOPICAL tube 09/11/18 Acetaminophen [Tylenol Tablet] 650 mg PO Q6H PRN PRN tablet 10/02/18 Albuterol Aerosols [Ventolin Aerosols] 2.5 mg INHALATION Q2H PRN PRN vial.neb. 10/02/18 Amoxicillin [Amoxil] 500 mg PO Q12H #14 capsule 10/02/18 Apixaban [Eliquis] 2.5 mg PO BID tablet 10/02/18 Ensure Enlive 120 ml PO 4X/DAY liquid 10/02/18 Furosemide [Lasix] 40 mg PO BID #30 tablet 10/02/18 Guaifenesin [Mucinex] 1,200 mg PO BID tablet 10/02/18 Magnesium Hydroxide [Milk Of Magnesia] 30 ml PO DAILY PRN udc 10/02/18 Pravastatin [Pravachol] 40 mg PO QHS tablet 10/02/18 The following prescriptions were given: Amoxicillin [Amoxil] 500 mg PO Q12H #14 capsule Primary Care Physician: Vijay Mason MD [Primary Care Provider] - Please follow up with your Primary Care Physician in: 1-2 weeks Test Results: Test results from this visit will be discussed in further detail at your follow- up appointment, if applicable. Please Follow Up With: Rah Barba MD When: 2 weeks Proposed Discharge Date: 10/02/18
[2018-10-02] MEDS: APIXABAN 2.5 MG TABLET PO (10:18)
[2018-10-02] MEDS: 0.9% NaCl Peripheral Flush Adult/Peds IV (10:18)
[2018-10-02] MEDS: guaiFENesin 1,200 MG Tablet 1200 MG PO (10:19)
[2018-10-02] MEDS: Labetalol 200 MG Tablet PO (10:19)
[2018-10-02] MEDS: Finasteride 5 MG Tablet PO (10:19)
[2018-10-02] MEDS: Furosemide 20 MG/2 ML VIAL IV (10:19)
--- NOTE | 2018-10-02 12:21 | CASEMGMT ---
Therapy is recommending 'further skilled therapy' for pt at this time. This RN CM to room and pt is A/Ox4 at this time. Pt states would like to go home with resumption of [facility] at this time. Pt is aware that if he does not do well at home that he can call PCP and be placed in TCU with having already met his 3 MN's during this visit, voices understanding at this time. Pt voices no further concerns/needs at this time. Ernestine from [facility] aware of pt discharge today, voices understanding. Resumption of care order already in. Richelle HONG CM
--- NOTE | 2018-10-02 14:23 | PCM.DC.SUM ---
Discharge Date and Diagnosis Date of Admission: 09/29/18 Date of Discharge: 10/02/18 - Primary Discharge Diagnosis Acute sepsis 2/2 bacteremia and Acute RLL HCAP 2/2 strep pneumonia. 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 There is a small right-sided effusion is suspected Echo: Interpretation Summary The study was technically difficult. Left ventricular systolic function is normal. The estimated ejection fraction is 55 %. Mild concentric left ventricular hypertrophy. Mildly dilated right ventricle. The left atrium is mildly enlarged. The right atrium is mildly enlarged. Mild (1+) mitral valve insufficiency. Mild to moderate (1-2+) tricuspid valve insufficiency. Mild focal aortic valve thickening. Trivial pericardial effusion. There are no echocardiographic indications of cardiac tamponade. Echolucency c/w a pleural effusion. Right ventricular systolic pressure estimated to be 64 mmHg c/w pulmonary hypertension. There is evidence of diastolic dysfunction. Bubble contrast study negative for right to left interatrial shunt. 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 No acute findings in the brain Barium swallow: IMPRESSION: This patient presents with mild oropharyngeal dysphagia. Oral phase is marked by: sufficient labial seal/oral containment; significantly prolonged mastication w/ slowed lingual motion resulting in difficulty collecting bolus cohesively for A-P transit. Pharyngeal phase is marked by: delayed pharyngeal swallow onset w/ 1st 5mL bolus only; improved timing for swallow onset w/ all subsequent boluses across consistencies assessed; reduced tongue base retraction/anterior hyoid movement resulting incomplete epiglottic inversion w/ tongue base/vallecular contrast collection; incomplete laryngeal elevation/diminished posterior pharyngeal stripping wave resulting in poor pharyngeal bolus clearance; complete laryngeal vestibule closure was achieved w/ no penetration or aspiration occurring throughout this study; partial obstruction of bolus flow at the C4-5 level d/t osteophytes impeding bolus flow w/ contrast retention atop the PES. Use of liquid wash and multiple swallow was only somewhat effective to reduce pharyngeal residue retention. Although penetration/aspiration did not occur under fluoroscopy, this patient is at an increased risk to aspirate if compensatory precautions not adhered to properly. DIET TEXTURE RECOMMENDATIONS: Will recommend a regular texture/thin liquid diet. RAD/Swallowing Function w/Video IMPRESSION: Normal tailored barium swallow study. No evidence of increased risk for aspiration. RAD/Chest PA and Lateral IMPRESSION: Since prior study, there has been progressive increase in the right pleural effusion. Mild improvement in the right pulmonary infiltration. 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/manager cost Routine Comment: Reason for Consult:: Lymphedema of bilateral leg wounds. Operations: None Procedures: 2-D Echocardiogram Summary of Care Provided: Hospital Course: The patient is a 83 year old M with pmhx of lymphedema, PAfib, CKDIII, dysphagia, prior stroke, chronic anemia, HTN, HLD, gout, carotid artery disease s/p CEA, bph, who presented to the ER with increased confusion and SOB. He was found to be septic with RLL pna and pleural effusion. He was placed in PCU on tele, and started on Rocephin and azithromycin. His blood cultures grew positive x 2 overnight with strep pneumo, urine antigen also + for strep pneumo. ID was consulted. Abx were de-escalated to rocephin only. He appeared to have a component of diastolic CHF exacerbation as well, and cardiology was consulted. He was managed with lasix and placed on a heparin drip. His repeat cultures grew negative. He was weaned off O2. With his hx of dysphagia, speech therapy and swallow studies were ordered, which he passed. Heparin was DCd and low dose eliquis was started given his age and kidney dysfunction. He was discharged to Home with Home Health Care in stable condition. He will need to see cardiology as an outpatient in 2 weeks, and his PCP in 1-2 weeks. He should continue daily wound care for his lymphedema. He will continue PT and OT at home. His weights and renal function need to be monitored. He was placed on Oral amoxicillin 500mg po bid for 7 more days for DC to clear his infection. This patient was seen by Lion Green PA-C under the supervision of Dr. Siddiqui. [] - Physical Exam General: Alert, Oriented x3, Cooperative HEENT: Atraumatic, PERRLA, EOMI, Normocephalic Neck: Supple, No JVD, Negative Carotid Bruits Lungs: Diminished, Rales - RML/RLL Cardiovascular: Regular rate, No murmurs Abdomen: Bowel Sounds Present, Soft, Non Tender Extremities: No edema, Capillary Refill Less than 3 Seconds Skin: No rashes, No breakdown Musculoskeletal: No Tenderness to Palpation of Joints or Extremities Neurological: Cranial nerves II-XII grossly intact Psych/Mental Status: Normal Affect, Appropriate, Alert and oriented to time, place, person, mood and affect Vital Signs Temp Pulse Resp BP Pulse Ox 98.2 F 86 16 121/53 H 94 10/02/18 13:51 10/02/18 13:51 10/02/18 13:51 10/02/18 13:51 10/02/18 13:51 Oxygen Flow Rate (L/min) 1 Oxygen Delivery Method Room Air Weight: 178 lb 9.191 oz Body Mass Index (BMI) 25.7 Finger Stick Blood Glucose 122 Intake and Output for Last 24 Hours 09/30/18 10/01/18 10/02/18 23:59 23:59 23:59 Intake Total 4147.8 / 4147.8 966 / 966 724 / 724 Output Total 450 / 450 200 / 200 125 / 125 Balance 3697.8 / 3697.8 766 / 766 599 / 599 Microbiology Past 72 Hours 09/30/18 16:38 Blood Culture - Preliminary Blood Culture (Wb) - Anticubital Left 09/30/18 16:50 Blood Culture - Preliminary Blood Culture (Wb) - Anticubital Left 09/28/18 22:33 Blood Culture - Preliminary Blood Culture (Wb) - Anticubital Right Streptococcus pneumoniae 09/28/18 22:38 Bacteria Detection (PCR) - Final Blood Culture (Wb) - Right Wrist Streptococcus pneumoniae Blood Culture - Preliminary Streptococcus pneumoniae 09/29/18 10:30 Legionella Antigen - Final Urine Catheter - Catheter 09/29/18 10:30 Streptococcus pneumoniae Antigen (M - Final Urine Catheter - Catheter Streptococcus pneumonia Ag Laboratory Tests Past 24 Hrs 10/01/18 10/01/18 10/01/18 06:20 06:20 20:22 WBC RBC Hgb Hct MCV MCH MCHC RDW RDW Differential Plt Count MPV Immature Gran % (Auto) Neut % (Auto) Lymph % (Auto) [place] % (Auto) Eos % (Auto) Baso % (Auto) Absolute Neuts (auto) Absolute Lymphs (auto) Total Counted APTT 72.6 H Sodium Potassium Chloride Carbon Dioxide Anion Gap BUN Creatinine Estim Creat Clear Calc Est GFR (MDRD) Af Amer Est GFR (MDRD) Non-Af BUN/Creatinine Ratio Glucose Calcium Phosphorus 3.8 Magnesium 1.8 10/02/18 10/02/18 10/02/18 06:20 06:20 06:20 WBC 8.8 RBC 3.41 L Hgb 9.6 L Hct 31.6 L MCV 92.7 MCH 28.2 MCHC 30.4 L RDW 14.1 RDW Differential 45.9 H Plt Count 137 L MPV 11.3 Immature Gran % (Auto) 0.200 Neut % (Auto) 91.0 H Lymph % (Auto) 3.0 L [place] % (Auto) 5.5 Eos % (Auto) 0.2 Baso % (Auto) 0.1 Absolute Neuts (auto) 8.0 H Absolute Lymphs (auto) 0.26 L Total Counted Not Reportable APTT 72.4 H Sodium 143 Potassium 3.9 Chloride 105 Carbon Dioxide 29.0 Anion Gap 9 BUN 77 H Creatinine 2.71 H Estim Creat Clear Calc 20.68 Est GFR (MDRD) Af Amer 29 L Est GFR (MDRD) Non-Af 24 L BUN/Creatinine Ratio 28.4 H Glucose 124 H Calcium 8.5 Phosphorus Magnesium Discharge Diet: Low fat/ Low Cholesterol, 2000 mg Sodium Diet Discharge Activity: Return to Normal Activity Home Medications: Medications to take at Discharge Allopurinol 300 mg PO DAILY 10/10/16 Cholecalciferol (Vitamin D3) [Vitamin D3] 50,000 unit PO BURGOS 10/10/16 Labetalol [Trandate (Beta Lily)] 200 mg PO BID 10/10/16 Aspirin E.C. [Ecotrin] 81 mg PO DAILY 08/14/18 Finasteride [Proscar] 5 mg PO DAILY 08/19/18 Epoetin Royer [Procrit] 10,000 units SC Q14D ml 09/11/18 Iron Polysaccharide Complex [Ferrex 150] 150 mg PO DAILYCM #30 capsule 09/11/18 Menthol/Lanolin/Calamine/Znox [Calmoseptine Ointment] 1 applic TOPICAL tube 09/11/18 Acetaminophen [Tylenol Tablet] 650 mg PO Q6H PRN PRN tab 10/02/18 Albuterol Aerosols [Ventolin Aerosols] 2.5 mg INHALATION Q2H PRN PRN vial.neb. 10/02/18 Amoxicillin [Amoxil] 500 mg PO Q12H #14 cap 10/02/18 Apixaban [Eliquis] 2.5 mg PO BID #60 tab 10/02/18 Ensure Enlive 120 ml PO 4X/DAY liquid 10/02/18 Furosemide 40 mg PO DAILY #30 tab 10/02/18 Magnesium Hydroxide [Milk Of Magnesia] 30 ml PO DAILY PRN udc 10/02/18 Pravastatin [Pravachol] 40 mg PO QHS tab 10/02/18 Following Prescrptions Were Given to Patient: Amoxicillin [Amoxil] 500 mg PO Q12H #14 cap Apixaban [Eliquis] 2.5 mg PO BID #60 tab Furosemide 40 mg PO DAILY #30 tab Other Amb Orders: Basic Metabolic Profile (BMP) Time Frame: 5 Days, Location: Laboratory Primary Care Physician: Vijay Mason MD [Primary Care Provider] - Please follow up with your Primary Care Physician in: 1-2 weeks Please Follow Up With: Rah Barba MD When: 2 weeks Please Follow Up With: Vijay Mason MD Disposition: Home with Home Health Medical Necessity - Tobacco Use Smoking Status: Never smoker Meaningful Use Info Meaningful Use Diagnoses (Choose all that apply): CHF - CHF PATITO/ARB ordered at discharge?: No Reason PATITO/ARB not ordered?: Worsening renal function Documented LVEF (%): 55
--- NOTE | 2018-10-03 15:56 | CASEMGMT ---
Addendum entered by Shruti Dozier 10/04/18 15:59: This [facility] LEDBETTER attempted to reach pt again without success at this time. Richelle HONG CM Original Note: HAL LEDBETTER Discharge F/U Phone Call LACE: 12 Strata: 4 Discharge date: 10/02/18 Call date: 10/03/18 Call time: [id number] Attempted to reach pt via home phone and cell phone at this time without success, unable to leave message at this time as pt has no way to leave message on home phone and his voicemail is not set up yet on cell phone. Richelle HONG CM Admission dx: Severe sepsis, HCAP, JOSEF, Delirium
--- OUTSIDE RECORDS SUMMARY | 2018-11-22 21:55 | XMS RPT_ITS ---
:1935 Author Organization OHIP Support Name Relationship Address Phone BULMARO SAWYER Unavailable [address] + [place] [address] R Unavailable Unavailable Unavailable VASAS, DEMETRI Unavailable [address] + [place] [address] TUNICABULMARO Unavailable [address] + [place] [address] R Unavailable Unavailable Unavailable VASAS, DEMETRI Unavailable [address] + [place] [address] TUNICAJESSICABULMARO Unavailable [address] + [place] [address] R Unavailable Unavailable Unavailable VASAS, DEMETRI Unavailable [address] + [place] [address] TUNICABULMARO Unavailable [address] + [place] [address] R Unavailable Unavailable Unavailable VASAS, DEMETRI Unavailable [address] + [place] [address] TUNICABULMARO Unavailable [address] + [place] [address] R Unavailable Unavailable Unavailable VASAS, DEMETRI Unavailable [address] + [place] [address] Bicknell Bulmaro Unavailable [address] [facility] [address] + [place] [address] R Unavailable Unavailable Unavailable Vasas, Demetri Unavailable [address] + [place] [address] BicknellBulmaro Unavailable [address] [facility] [address] + [place] [address] R Unavailable Unavailable Unavailable Vasas, Demetri Unavailable [address] + [place] [address] [facility] [address] [facility] [address] + [place] [address] R Unavailable Unavailable Unavailable Vasas, Demetri Unavailable [address] + [place] [address] [facility] Un[facility] [address] [facility] [address] + [place] [address] R Unavailable Unavailable Unavailable Vasas, Demetri Unavailable [address] + [place] [address] [facility] Un[facility] [address] [facility] [address] + [place] [address] R Unavailable Unavailable Unavailable Vasas, Demetri Unavailable [facility] + [place] [address] [facility] Unavailable [address] [facility] [address] + [place] [address] R Unavailable Unavailable Unavailable Vasas, Demetri Unavailable [facility] + [place] [address] [facility] Un[facility] [address] [facility] [address] + [place] [address] R Unavailable Unavailable Unavailable Vasas, Demetri Unavailable [facility] + [place] [address] [facility] Unavailable [address] [facility] [address] + [place] [address] R Unavailable Unavailable Unavailable Vasas, Demetri Unavailable [facility] + [place] [address] [facility] Unavailable [address] [facility] [address] + [place] [address] R Unavailable Unavailable Unavailable Vasas, Demetri Unavailable [facility] + [place] [address] Bicknell, Bulmaro Unavailable [address] [facility] [address] + [place] [address] R Unavailable Unavailable Unavailable Vasas, Demetri Unavailable [facility] + [place] [address] Sawyer, Bulmaro Unavailable [address] [facility] [address] + [place] [address] R Unavailable Unavailable Unavailable Vasas, Demetri Unavailable [address] + [place] [address] Bicknell, Bulmaro Unavailable [address] [facility] [address] + [place] [address] R Unavailable Unavailable Unavailable Vasas, Demetri Unavailable [address] + [place] [address] Bicknell, Bulmaro Unavailable [address] [facility] [address] + [place] [address] R Unavailable Unavailable Unavailable Vasas, Demetri Unavailable [address] + [place] [address] Bicknell, Bulmaro Unavailable [address] [facility] [address] + [place] [address] R Unavailable Unavailable Unavailable Vasas, Demetri Unavailable [address] + [place] [address] Bicknell, Bulmaro Unavailable [address] [facility] [address] + [place] [address] R Unavailable Unavailable Unavailable Vasas, Demetri Unavailable [address] + [place] [address] Bicknell, Bulmaro Unavailable [address] [facility] [address] + [place] [address] R Unavailable Unavailable Unavailable Vasas, Demetri Unavailable [address] + [place] [address] Bicknell, Bulmaro Unavailable [address] [facility] [address] + [place] [address] R Unavailable Unavailable Unavailable Vasas, Demetri Unavailable [address] + [place] [address] Bicknell, Bulmaro Unavailable [address] [facility] [address] + [place] [address] R Unavailable Unavailable Unavailable Vasas, Demetri Unavailable [address] + [place] [address] Bicknell, Bulmaro Unavailable [address] + [place] [address] R Unavailable Unavailable Unavailable Vasas, Demetri Unavailable [address] + [place] [address] SAWYERBULMARO Unavailable [address] [facility] [address] + [address] [place] [address] R Unavailable Unavailable Unavailable VASAS, DEMETRI Unavailable [address] + [place] [address] BULMARO SAWYER Unavailable Unavailable + R Unavailable Unavailable Unavailable VASAS, DEMETRI Unavailable [address] + [place] [address] SawyerBulmaro Unavailable [address] [facility] [address] + [place] [address] R Unavailable Unavailable Unavailable Vasas, Demetri Unavailable [address] + [place] [address] SAWYERBULMARO Unavailable [address] [facility] [address] + [address] [place] [address] R Unavailable Unavailable Unavailable VASAS, DEMETRI Unavailable [address] + [place] [address] SAWYERBULMARO Unavailable [address] [facility] [address] + [address] [place] [address] R Unavailable Unavailable Unavailable VASAS, DEMETRI Unavailable [address] + [place] [address] SAWYERBULMARO Unavailable [address] [facility] [address] + [address] [place] [address] R Unavailable Unavailable Unavailable VASAS, DEMETRI Unavailable [address] + [place] [address] SAWYERJESSICABULMARO Unavailable [address] [facility] [address] + [address] [place] [address] R Unavailable Unavailable Unavailable VASAS, DEMETRI Unavailable [address] + [place] [address] R Unavailable Unavailable Unavailable VASAS, DEMETRI Unavailable [address] + [place] [address] R Unavailable Unavailable Unavailable VASAS, DEMETRI Unavailable [address] + [place] [address] R Unavailable Unavailable Unavailable VASAS, DEMETRI Unavailable [address] [facility] [address] + [place] [address] R Unavailable Unavailable Unavailable VASAS, DEMETRI Unavailable [address] [facility] [address] + [place] [address] R Unavailable Unavailable Unavailable VASAS, DEMETRI Unavailable [address] [facility] [address] + [place] [address] R Unavailable Unavailable Unavailable VASAS, DEMETRI Unavailable [address] [facility] [address] + [place] [address] R Unavailable Unavailable Unavailable VASAS, DEMETRI Unavailable [address] [facility] + [place] [address] R Unavailable Unavailable Unavailable VASAS, DEMETRI Unavailable [address] + [place] [address] R Unavailable Unavailable Unavailable VASAS, DEMETRI Unavailable [address] + [place] [address] Care Team Providers Name Role Phone Deanna Rah Attending Unavailable [facility] Unavailable Sementi, Gail Admitting Unavailable Bakhous, Aziz Consulting Unavailable Ashelfah, Ghasem Attending Unavailable Holden, Moi Consulting Unavailable Sementi, Gail Admitting Unavailable Sementi, Gail Attending Unavailable [facility] Unavailable Sementi, Gail Consulting Unavailable Sementi, Gail Admitting Unavailable An Platt NP-C Attending Unavailable [facility] Unavailable Bakhous, Aziz Consulting Unavailable Ashelfah, Ghasem Consulting Unavailable Sementi, Gail Admitting Unavailable Ashelfah, Ghasem Attending Unavailable [facility] Unavailable Bakhous, Aziz Consulting Unavailable Holden, Moi Consulting Unavailable Ashelfah, Ghasem Consulting Unavailable Sementi, Gali Admitting Unavailable Ashelfah, Ghasem Attending Unavailable [facility] Unavailable Bakhous, Aziz Consulting Unavailable Holden, Moi Consulting Unavailable Ashelfah, Ghasem Consulting Unavailable Sementi, Gail Admitting Unavailable Ashelf, Ghasem Attending Unavailable [facility] Unavailable Bakhous, Aziz Consulting Unavailable Holden, Moi Consulting Unavailable Ashelfah, Mingoasesabra Consulting Unavailable Gera, Christiano Chi Admitting Unavailable Gera, Christiano Chi Attending Unavailable Gera, Christiano Chi Referring Unavailable [facility] Unavailable [facility] Unavailable Paintsil, Kendalia Admitting Unavailable Dane, Pablito Attending Unavailable Paintsil, Kendalia Admitting Unavailable Paintsil, Kendalia Attending Unavailable [facility] Unavailable Paintsil, Kendalia Consulting Unavailable Paintsil, Kendalia Admitting Unavailable Norma, Lion Attending Unavailable [facility], [place] [facility] Unavailable Dane, Pablito Consulting Unavailable Paintsil, Kendalia Admitting Unavailable Norma, Lion Attending Unavailable [facility] Unavailable Dane, Pablito Consulting Unavailable Tena Staples CLEAN UP SUPERVISOR-C Attending Unavailable [facility] Unavailable Tena Staples CLEAN UP SUPERVISOR-C Attending Unavailable [facility] Unavailable Tena Staples CLEAN UP SUPERVISOR-C Attending Unavailable [facility] Unavailable [facility], Vijay Attending Unavailable [facility] Unavailable [facility], Vijay Attending Unavailable [facility] Unavailable Tena Staples CLEAN UP SUPERVISOR-C Attending Unavailable [facility] Unavailable Jhoan, Tena CLEAN UP SUPERVISOR-C Attending Unavailable Staples, Tena CLEAN UP SUPERVISOR-C Attending Unavailable [facility] Unavailable ANGEL MEDRANO Attending Unavailable ANGEL MEDRANO Referring Unavailable [facility] Unavailable [facility] Unavailable Agyepong, Chase Admitting Unavailable Prashanth Meyeriz Consulting Unavailable Jose Guadalupe Barton Attending Unavailable Bernardino Drake Consulting Unavailable Agyepong, Chase Admitting Unavailable Agyepong, Chase Attending Unavailable [facility] Unavailable Agyepong, Chase Consulting Unavailable Agyepong, Chase Admitting Unavailable [facility] Unavailable Bakmakaylas, Aziz Consulting Unavailable Dane, Pablito Attending Unavailable Bernardino rDake Consulting Unavailable Dane, Pablito Consulting Unavailable Agyepong, Chase Admitting Unavailable Jose Guadalupe Barton Attending Unavailable [facility] Unavailable Bakmakaylas, Aziz Consulting Unavailable Bernardino Drake Consulting Unavailable Jose Guadalupe Barton Consulting Unavailable Agyepong, Chase Admitting Unavailable Jose Guadalupe Barton Attending Unavailable [facility] Unavailable Roxys, Aziz Consulting Unavailable Drake, Bernardino Consulting Unavailable MervatoniJose Guadalupe bell F Consulting Unavailable Agyepong, Chase Admitting Unavailable Adele aBrtons F Attending Unavailable [facility] Unavailable Prashanth Meyeriz Consulting Unavailable Noelle, Bernardino Consulting Unavailable MervatoniKvng bellJose Guadalupe F Consulting Unavailable Agyepong, Chase Admitting Unavailable KoAdele bolanoss F Attending Unavailable [facility] Unavailable Prashanth Meyeriz Consulting Unavailable Noelle, Bernardino Consulting Unavailable Louistsoniray, Jose Guadalupe F Consulting Unavailable Gera, Christiano Chi Admitting Unavailable Gera, Christiano Chi Attending Unavailable Gera, Christiano Chi Referring Unavailable [facility] Unavailable [facility], [place] Attending Unavailable [facility] Unavailable [facility] Unavailable Agyepong, Chase Admitting Unavailable Mood[place], Rah Consulting Unavailable White, Maureen Attending Unavailable Steve, Oscar Consulting Unavailable Agyepong, Chase Admitting Unavailable Agyepong, Chase Attending Unavailable [facility] Unavailable Agyepong, Chase Consulting Unavailable Agyepong, Chase Admitting Unavailable Moodispafrance, Rah Attending Unavailable [facility] Unavailable [place], Rah Consulting Unavailable Ashelfah, Ghasem Consulting Unavailable Agyepong, Chase Admitting Unavailable [place], Rah Attending Unavailable [facility] Unavailable [place], Rah Consulting Unavailable Steve, Oscar Consulting Unavailable White, Maureen Consulting Unavailable Agyepong, Chase Admitting Unavailable [facility] Unavailable [place], Rah Consulting Unavailable White, Maureen Attending Unavailable Steve, Oscar Consulting Unavailable White, Maureen Consulting Unavailable Agyepong, Chase Admitting Unavailable [place], Rah Attending Unavailable [facility] Unavailable [place], Rah Consulting Unavailable Steve, Oscar Consulting Unavailable White, Maureen Consulting Unavailable Agyepong, Chase Admitting Unavailable [facility] Unavailable [place], Rah Consulting Unavailable White, Maureen Attending Unavailable Steve, Oscar Consulting Unavailable White, Maureen Consulting Unavailable Agyepong, Chase Admitting Unavailable [facility] Unavailable [place], Rah Consulting Unavailable White, Maureen Attending Unavailable Steve, Oscar Consulting Unavailable White, Maureen Consulting Unavailable HuertaRha Attending Unavailable Deanna, Rah Attending Unavailable MASCI, RAH A Referring Unavailable [...] A Referring Unavailable ANGEL MEDRANO Attending Unavailable ARTURO, VIJAY MARTINEZ Referring Unavailable ANGEL MEDRANO Attending Unavailable ARTURO, VIJAY Referring Unavailable ARTURO, VIJAY Primary Care Unavailable ANGEL MEDRANO Attending Unavailable ARTURO, VIJAY Referring Unavailable ARTURO, VIJAY Primary Care Unavailable PROBLEMS PROBLEMS DATE TYPE CONDITION / CODE ATTENDING STATUS SOURCE 10/14/2018 Unknown R53.81 - Other Gera, Christiano Chi Active [place] malaise / Community R53.81(ICD-10) Hospital Repository 04/27/2016 Active 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 / Repository I65.23(ICD-10) 05/17/2018 Active Other specified ANGEL MEDRANO Active [place] postprocedural [facility] Other states / [place] Z98.890(ICD-10) Repository 04/27/2016 Admitting Unknown / ANGEL MEDRANO Active [facility] UNK[facility]Unknown[facility] Repository 05/07/2018 Unknown 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 Hospital arteries / Repository I65.23(ICD-10) 04/28/2018 Unknown I89.0 - Lymphedema, Jhoan, Active [place] not elsewhere Tena CLEAN UP SUPERVISOR-C Community classified / Hospital I89.0(ICD-10) Repository 04/25/2018 Unknown L00 - Staphylococcal Jhoan, 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 Tena CLEAN UP SUPERVISOR-C Community syndrome / Hospital L00(ICD-10) Repository 03/04/2018 Unknown D64.9 - Anemia, Vijay Mason Active [place] unspecified / Community D64.9(ICD-10) Hospital Repository 03/01/2018 Unknown D69.6 - Vijay Mason Active [place] Thrombocytopenia, Community unspecified / Hospital D69.6(ICD-10) Repository 03/01/2018 Unknown E55.9 - Vitamin D Vijay Mason Active [place] deficiency, Community unspecified / Hospital E55.9(ICD-10) Repository 03/01/2018 Unknown N18.3 - Chronic Vijay Mason Active [place] kidney disease, [facility] stage 3 (moderate) / Hospital N18.3(ICD-10) Repository 01/30/2018 Active Anemia in chronic NA Active [place] kidney disease / Clinic Main D63.1(ICD-10) [place] Repository 01/30/2018 Active Chronic kidney NA Active [place] disease, stage 3 Clinic Main (moderate) / [place] N18.3(ICD-10) Repository 01/27/2018 Unknown Z00.00 - Encounter Jhoan Active [place] for general adult [facility] without abnormal Repository findings / Z00.00(ICD-10) 10/24/2017 Active Chronic kidney NA Active [place] disease, unspecified Clinic Main / N18.9(ICD-10) [place] Repository PROCEDURES PROCEDURES No Procedure Records FoundRESULTS RESULTS CBC W/DIFF, AUTOMATED Collected: 10/15/2018 Status: F Source: [place] 5:13 AM [facility] REPOSITORY TYPE CODE TESTS RESULT OUT [...] Normal 1+ Performed By: #### L100.0100 #### [facility] [place], [address] BASIC METABOLIC Collected: 10/15/2018 Status: F Source: [place] PROFILE (BMP) 5:00 AM REPOSITORY TYPE CODE TESTS RESULT OUT OF [...] GAP 7 Performed By: #### L500.2500 #### [facility] [address] [place], [address] BASIC METABOLIC Collected: 10/14/2018 Status: F Source: [place] PROFILE ([facility]) 6:30 AM REPOSITORY TYPE CODE TESTS RESULT OUT OF [...] GAP 6 Performed By: #### L500.2500 #### [facility] [address] [place], [address] HISTORY AND PHYSICAL Observed: 10/13/2018 Status: F Source: [place] EXAM 4:59 PM REPOSITORY [facility] Medical Records Department [address] [place] [address] History and Physical 10/13/18 0748 MR#: [id number] Acct: [id number] Name: DOUG CAST Rep #: [id number] : 1935 83 From: Linda Syed MD PCP: Vijay Mason MD Status: ADM IN Location: [place] [address] Problem List (1) Acute delirium Status: Acute [...] Psychiatric History: No pertinent psych hx [place]: [place] Smoking Status: Never smoker Tobacco Use: Non-smoker Alcohol: None Drugs: None - *Family History Paternal Family History: Family History (Last Reviewed 10/08/18 @ 21:06 by Sabra Abrams DO) Mother Hyperthyroidism Father Diabetes Aortic aneurysm rupture History Items: Diabetes Maternal Family History: Family History (Last Reviewed 10/08/18 @ 21:06 by Sabra Abrams DO) Mother Hyperthyroidism Father Diabetes Aortic [...] Full code. Discussed code status with patient's [id number] who will discuss with the son who is her . Agrees that patient should not be full code. The son will get back to the treatment staff on the expectations and plan. I discussed patient's care at the moment in detail. Code Visit Inpatient E AND M: [id number] Init Hosp L3 10/13/18 1659 <Electronically signed by Linda Syed MD> Date Linda Syed MD Cosigner Signature: Date (if applicable) CC: Linda Syed MD; Vijay Mason MD Signed TROPONIN-I Collected: 10/13/2018 Status: F Source: [place] 3:47 PM REPOSITORY Order Comment: 'TROP' Serial specimen #1, #2 or #3: 3 TYPE CODE TESTS RESULT OUT OF RANGE REFERENCE UNITS LAB L501.4010 <0.045 ng/mL Normal < 0.015 TROPONIN-I Result Comment: TROPONIN-I EXPECTED VALUES <0.045 Negative 0.045 - 0.590 Consistent with Cardiac Damage > OR = 0.600 Critical Value Not every elevated troponin is indicative of UT. These values should be used with clinical judgement in examining the patient's clinical picture for diagnosis. To establish a diagnosis of UT versus myocardial injury, there must be a demonstrated rise and/or fall in the troponin values, in addition to ischemic symptoms, EKG changes, new regional wall motion abnormality, and/or angiographical evidence. PLEASE NOTE: REFERENCE RANGES EDITED 18 Performed By: #### L501.4010 #### [facility] [address] [place], [address] BLOOD GASES BY [facility] Collected: 10/13/2018 Status: F Source: [place] 2:24 PM REPOSITORY TYPE CODE TESTS RESULT OUT OF [...] 6 LAB L9001.1104 Normal Results To HOSP MD LAB L9001.1105 Normal Time Given 1400 LAB [...] ISTAT 95 Performed By: #### L9000.0800 #### [facility] Point of Care [address] [place] [address] TROPONIN-I Collected: 10/13/2018 Status: F Source: [place] 1:45 PM REPOSITORY Order Comment: 'TROP' Serial specimen #1, #2 or #3: 2 TYPE CODE TESTS RESULT OUT OF RANGE REFERENCE UNITS LAB L501.4010 <0.045 ng/mL Normal < 0.015 TROPONIN-I Result Comment: TROPONIN-I EXPECTED VALUES <0.045 Negative 0.045 - 0.590 Consistent with Cardiac Damage > OR = 0.600 Critical Value Not every elevated troponin is indicative of UT. These values should be used with clinical judgement in examining the patient's clinical picture for diagnosis. To establish a diagnosis of UT versus myocardial injury, there must be a demonstrated rise and/or fall in the troponin values, in addition to ischemic symptoms, EKG changes, new regional wall motion abnormality, and/or angiographical evidence. PLEASE NOTE: REFERENCE RANGES EDITED 18 Performed By: #### L501.4010 #### [facility] [address] [place], [address] BLOOD GASES BY [facility] Collected: 10/13/2018 Status: F Source: [place] 10:52 AM REPOSITORY TYPE CODE TESTS RESULT OUT OF [...] ISTAT 100 Performed By: #### L9000.0800 #### [facility] Point of Care [address] 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 Discharge to [facility] Emergency Department for evaluation, admission to [...] 650 mg PO Q6H PRN PRN tab 12/05/18 Albuterol Aerosols [Ventolin Aerosols] 2.5 mg INHALATION [...] 10/13/2018 Status: F Source: [place] 10:04 AM REPOSITORY [facility] Medical Records Department [address] [place] [address] Instructions for Home/Discharge Instructions 10/13/18 1003 MR#: [id number] Acct: [id number] Name: DOUG CAST Rep #: [id number] : 1935 83 From: Christiano Boss MD [...] 10/13/2018 Status: F Source: [place] 9:40 AM REPOSITORY TYPE CODE TESTS RESULT OUT OF [...] Lymph 0.50 Performed By: #### L100.0100 #### [facility] [address] [facility] [place], [place], [address] BNP,B-TYPE NATRIURETIC Collected: 10/13/2018 Status: F Source: [place] PEPTIDE 9:40 AM REPOSITORY Order Comment: Comments: as add on test TYPE CODE TESTS RESULT OUT OF RANGE REFERENCE UNITS LAB L503.6620 0-100 pg/mL High B-TYPE 166.1 ARNOLD PEP Performed By: #### L503.6620 #### [facility] [address] [place], [address] TROPONIN-I Collected: 10/13/2018 Status: F Source: [place] 9:40 AM REPOSITORY Order Comment: 'TROP' Serial specimen #1, #2 or #3: 1 TYPE CODE TESTS RESULT OUT OF RANGE REFERENCE UNITS LAB L501.4010 <0.045 ng/mL Normal < 0.015 TROPONIN-I Result Comment: TROPONIN-I EXPECTED VALUES <0.045 Negative 0.045 - 0.590 Consistent with Cardiac Damage > OR = 0.600 Critical Value Not every elevated troponin is indicative of UT. These values should be used with clinical judgement in examining the patient's clinical picture for diagnosis. To establish a diagnosis of UT versus myocardial injury, there must be a demonstrated rise and/or fall in the troponin values, in addition to ischemic symptoms, EKG changes, new regional wall motion abnormality, and/or angiographical evidence. PLEASE NOTE: REFERENCE RANGES EDITED 18 Performed By: #### L501.4010 #### [facility] [address] [place], [address] LACTIC ACID Collected: 10/13/2018 Status: F Source: MRAK 8:45 AM REPOSITORY Order Comment: Yes/No query for Sepsis Lactate Rule Y TYPE CODE TESTS RESULT OUT OF RANGE REFERENCE UNITS LAB L503.6005 0.4-2.0 mmol/L Normal LACTIC ACID 0.8 Performed By: #### L503.6005 #### [facility] [address] [place], [address] EMERGENCY DEPARTMENT Observed: 10/13/2018 Status: C Source: MARK SUMMARY 8:35 AM REPOSITORY [facility] Medical Records Department [address] [place] [address] Emergency Department Summary 10/13/18 0736 MR#: [id number] Acct: [id number] Name: DOUG CAST Rep #: [id number] : 1935 83 From: Stanislaw Jaimes MD [...] CHF Delirium This note was generated with xTurion dictation software. It may contain incorrect words, spelling, and punctuation that were not noted in review of the chart prior to signing ED Disposition - Plan for ED Patient: Chief Complaint: Alt LOC Referrals: Vijay Mason MD [Primary Care Provider] - What to do if you have Problems For any increased pain, shortness of breath, bleeding, nausea or vomiting, chest pain, or any unexpected problems, contact your Primary Care Provider. Call [facility] ([phone]) or report to the closest Emergency Room. Call 911 if necessary. 10/13/18 0742 <Electronically signed by Stanislaw Jaimes MD> Date Stanislaw Jaimes MD Cosigner Signature (If Indicated): Date CC: Vijay Mason MD URINALYSIS, COMPLETE Collected: 10/13/2018 Status: F Source: MARK 8:05 AM REPOSITORY Order Comment: How was Urine Obtained? [...] Normal AMORPHOUS Performed By: #### L400.0001 #### [facility] [address] [place] [place], [place], [address] Observed: 10/13/2018 Status: F Source: MARK CULTURE, URINE 8:05 AM REPOSITORY Comments: use off of urine already collected Has pt arrived? Y Urine Culture ORGANISM 1: Marzena albicans Fisher Count 25,000-50,000 Performed By: #### M100.0650 #### [facility] [address] [place], [place], [address] CBC W/DIFF, AUTOMATED Collected: 10/13/2018 Status: F Source: MARK 6:19 AM REPOSITORY TYPE CODE TESTS RESULT OUT OF [...] Lymph 0.52 Performed By: #### L100.0100 #### [facility] [address] [facility] [place], [address] COMPREHENSIVE METABOLIC Collected: 10/13/2018 Status: F Source: MARK LAST 6:19 AM REPOSITORY TYPE CODE TESTS RESULT OUT OF [...] GAP 4 Performed By: #### L500.4050 #### [facility] [place], [address] CHEST 1 VIEW Observed: 10/13/2018 Status: F Source: MARK (PORTABLE) 6:06 AM [facility] REPOSITORY [facility] Imaging Services [address] [place] [address] Chest 1 View (Portable) MR#: [id number] Acct: [id number] Name: DOUG CAST Rep #: [id number] : 1935 M 83 From: Carmelo Canseco MD PCP: Vijay Mason MD Status: REG ER Study: Chest 1 View (Portable) Date of Exam: 10/13/18 Exam# [id number] Ordering Dr: Stanislaw Jamies MD STUDY: X-RAY CHEST REASON FOR EXAM: [...] CC: Stanislaw Jaimes MD; Vijay Mason MD Application Security Consultant: Signed BRAIN/HEAD WITHOUT Observed: 10/13/2018 Status: F Source: MARK CONTRAST 6:06 AM [facility] REPOSITORY [facility] Imaging Services [address] [place] [address] Brain/Head without Contrast MR#: [id number] Acct: [id number] Name: DOUG CAST Rep #: [id number] : 1935 M 83 From: Carmelo Canseco MD PCP: Vijay Mason MD Status: REG ER Study: Brain/Head without Contrast Date of Exam: 10/13/18 Exam# [id number] Ordering Dr: Stanislaw Jaimes MD STUDY: CT [...] CC: Stanislaw Jaimes MD; Vijay Mason MD Application Security Consultant: Signed BEDSIDE GLUCOSE Collected: 10/13/2018 Status: F Source: MARK 4:34 AM REPOSITORY TYPE CODE TESTS RESULT OUT OF RANGE REFERENCE UNITS LAB L501.080 70-110 mg/dL Normal BEDSIDE GLU 86 Result Comment: MANAGEMENT OF PATIENT CARE PER NURSING PROTOCOL Performed By: #### L501.080 #### [facility] Point of Care [address] [place] [address] Observed: 10/13/2018 Status: P Source: MARK CULTURE, BLOOD (WB) 12:00 AM REPOSITORY BC No growth in 48 hours. Performed By: #### M200.1000 #### [facility] [address] [place], [address] Observed: 10/13/2018 Status: P Source: MARK CULTURE, BLOOD (WB) 12:00 AM REPOSITORY BC No growth in 48 hours. Performed By: #### M200.1000 #### [facility] [address] [place], [address] HISTORY AND PHYSICAL Observed: 10/12/2018 Status: F Source: MARK EXAM 5:52 PM REPOSITORY [facility] Medical Records Department [address] [place], [place] [address] [address] History and Physical 10/12/18 1728 MR#: [id number] Acct: [id number] Name: DOUG CAST Rep #: [id number] : 1935 83 From: Christiano Boss MD PCP: Vijay Mason MD Status: ADM IN Location: [facility] T[facility]09-1 Problem List (1) Diarrhea Status: Acute (2) [...] with below past medical history presented to [facility] Emergency Department 10/08/2018 with abnormal labs. [...] With Family - Most recently, at [facility] in [place]. Smoking Status: Never smoker Tobacco Use: Non-smoker Alcohol: None Drugs: None - *Family History Paternal Family History: Family History (Last Reviewed 10/08/18 @ 21:06 by Sabra Abrams DO) Mother Hyperthyroidism Father Diabetes Aortic aneurysm rupture History Items: Diabetes Maternal Family History: Family History (Last Reviewed 10/08/18 @ 21:06 by Sabra Abrams DO) Mother Hyperthyroidism Father Diabetes Aortic [...] high, consider tapering or prophylaxis dose. 10/12/18 1752 <Electronically signed by Christiano Boss MD> Date Christiano Boss MD Cosigner Signature: Date (if applicable) CC: Vijay Mason MD; Christiano Boss MD Signed DISCHARGE SUMMARY Observed: 10/12/2018 Status: F Source: MARK 1:01 PM REPOSITORY [facility] Medical Records Department [address] [place] [address] Discharge Summary 10/12/18 1253 MR#: [id number] Acct: [id number] Name: DOUG CAST Rep #: [id number] : 1935 83 From: Nanda Canada MD PCP: Vijay Mason MD Status: ADM IN Location: [address] Discharge Date and Diagnosis Date of Admission: [...] Service support , Consultations 10/09/18 01:05 Consult: 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 This note was generated with xTurion dictation software. It may contain incorrect words, [...] Robby Stephens MD When: 2 weeks. Disposition: Residential facility Minutes spent on discharge:: 34 Patient Condition:: Stable Medical Necessity - Tobacco Use Smoking Status: Never smoker Tobacco Use: Non-smoker Meaningful Use Info Meaningful Use Diagnoses (Choose all that apply): None applicable Code Visit Inpatient E AND M: 23080 Disch Hosp 10/12/18 1301 <Electronically signed by Nanda Canada MD> Date Nanda Canada MD Cosigner Signature (if applicable): Date CC: Zakia Meyer MD; Nanda Canada; Diane Rosario M.D.; Vijay Mason MD Signed TRANSFER TO [facility] Observed: 10/12/2018 Status: F Source: [facility] 9:37 AM REPOSITORY [facility] Medical Records Department [address] [place] [address] Transfer to [facility] Care MR#: [id number] Acct: [id number] Name: DOUG CAST Rep #: [id number] : 1935 83 From: Nanda Canada MD PCP: Vijay Mason MD Status: ADM IN DOUG CAST [id number] (Patient) (Health Ins. Claim No.) (Day of Discharge to Facility) Certification of patient admission REQUIRED AT TIME OF ADMISSION. I CERTIFY THAT POST-HOSPITAL ECF SERVICES ARE REQUIRED TO BE GIVEN ON AN IN-PATIENT BASIS BECAUSE OF THE ABOVE NAMED PATIENT'S NEED FOR GROUP HOME CARE ON A CONTINUING BASIS FOR THE CONDITION(S) FOR WHICH HE/SHE WAS RECEIVING IN-PATIENT HOSPITAL SERVICES PRIOR TO HIS/HER TRANSFER TO THE F. 10/12/18 0937 <Electronically signed by Nanda Canada [...] Wound Type: Stasis Ulcer Dressing Change: Adaptic heydi cleft Wound Type: moisture associated Dressing Change: [...] BASIC METABOLIC Collected: 10/12/2018 Status: F Source: MARK PROFILE (BMP) 6:24 AM REPOSITORY TYPE CODE TESTS RESULT OUT OF [...] GAP 6 Performed By: #### L500.2500 #### [facility] [address] [place], [place], [address] CBC W/DIFF, AUTOMATED Collected: 10/12/2018 Status: F Source: COLTS NECK 6:24 AM REPOSITORY TYPE CODE TESTS RESULT OUT OF [...] Lymph 0.49 Performed By: #### L100.0100 #### [facility] [address] [facility] [place], [place], [address] CBC W/DIFF, AUTOMATED Collected: 10/11/2018 Status: F Source: COLTS NECK 5:38 AM REPOSITORY TYPE CODE TESTS RESULT OUT OF [...] Lymph 0.55 Performed By: #### L100.0100 #### [facility] [address] [place], [address] BASIC METABOLIC Collected: 10/11/2018 Status: F Source: MARK PROFILE ([facility]) 5:38 AM REPOSITORY TYPE CODE TESTS RESULT OUT OF [...] GAP 5 Performed By: #### L500.2500 #### [facility] [address] [place], [address] CONSULTATION Observed: 10/10/2018 Status: F Source: MARK 8:05 AM REPOSITORY [facility] Medical Records Department [address] [place] [address] Consultation 10/10/18 0803 MR#: [id number] Acct: [id number] Name: DOUG CAST Rep #: [id number] : 1935 83 From: Fernando Hatch MD PCP: Vijay Mason MD Status: ADM IN Y Location: [facility] UR440-4 Reason for Consult Date of Consultation: 10/10/18 Reason for Consultation: kidney stone History of Present Illness: The patient is a 83 year old Male in [facility] admitted with multiple medical problems [...] Family, - - [place] living [place] Smoking Status: Never smoker Tobacco Use: Non-smoker Alcohol: Occasional Drugs: None - *Family History Paternal Family History: Family History (Last Reviewed 10/08/18 @ 21:06 by Sabra Abrams DO) Mother Hyperthyroidism Father Diabetes Aortic aneurysm rupture History Items: Diabetes Maternal Family History: Family History (Last Reviewed 10/08/18 @ 21:06 by Sabra Abrams DO) Mother Hyperthyroidism Father Diabetes Aortic [...] now recommend observation call with questions. 10/10/18 0805 <Electronically signed by Fernando Hatch MD> Date Fernando Hatch MD Cosigner Signature (if applicable): Date CC: Zakia Meyer MD; Fernando Hatch MD; Vijay Mason MD Signed CBC W/DIFF, AUTOMATED Collected: 10/10/2018 Status: F Source: MARK 5:50 AM REPOSITORY TYPE CODE TESTS RESULT OUT OF [...] Lymph 0.42 Performed By: #### L100.0100 #### [facility] [address] [place], [address] BASIC METABOLIC Collected: 10/10/2018 Status: F Source: COLTS NECK PROFILE (BMP) 5:50 AM REPOSITORY TYPE CODE TESTS RESULT OUT OF [...] 6 Performed By: #### L500.2500, L501.5200 #### [facility] [address] [place], [address] MAGNESIUM Collected: 10/10/2018 Status: F Source: MARK 5:50 AM REPOSITORY TYPE CODE TESTS RESULT OUT OF RANGE REFERENCE UNITS LAB L501.5200 1.6-2.6 mg/dL Normal MG 2.0 Performed By: #### L500.2500, L501.5200 #### [facility] [address] [place], [address] ABDOMEN/PELVIS WITHOUT Observed: 10/09/2018 Status: F Source: MARK CONT 7:38 PM REPOSITORY [facility] Imaging Services [address] [place] [address] Abdomen/Pelvis without Cont MR#: [id number] Acct: [id number] Name: DOUG CAST Brittani Rep #: [id number] : 1935 M 83 From: Baltazar Moctezuma MD PCP: Vijay Mason MD Status: ADM IN Study: Abdomen/Pelvis without Cont Date of Exam: 10/09/18 Exam# [id number] Ordering Dr: Nanda Canada MD STUDY: CT [...] , CC: Nanda Canada; Vijay Mason MD Application Security Consultant: Signed UREA NITROGEN, URINE Collected: 10/09/2018 Status: F Source: MARK 10:20 AM REPOSITORY TYPE CODE TESTS RESULT OUT OF RANGE REFERENCE UNITS LAB L502.0715 NO RANGE EST. mg/dL Normal URINE 793 UREA Performed By: #### L502.0715 #### [facility] [address] [place], [place], [address] CREATININE, URINE Collected: 10/09/2018 Status: F Source: MARK (RANDOM) 10:20 AM REPOSITORY TYPE CODE TESTS RESULT OUT OF RANGE REFERENCE UNITS LAB L501.1200 NO RANGE EST. mg/dL Normal UR CREAT 88.30 Performed By: #### L501.1200 #### [facility] [address] [place], [address] CONSULTATION Observed: 10/09/2018 Status: F Source: COLTS NECK 7:39 AM REPOSITORY [facility] Medical Records Department [address] [place] [address] Consultation 10/09/1831 MR#: [id number] Acct: [id number] Name: DOUG CAST Rep #: [id number] : 1935 83 From: Zakia Meyer MD PCP: Vijay Mason MD Status: ADM IN Y Location: [facility] GS149-6 Problem List (1) Acute kidney injury superimposed [...] in July 2018. Patient [facility] due to [facility]. Stool test came back positive for blood. Patient was on antibiotics at the [facility] for pneumonia treatment. Patient was admitted for [...] Lasix 40 mg p.o. daily at the [facility]. No NSAIDs used. No recent IV contrast [...] sob/wheezing Allopurinol (Zyloprim) 300 mg PO DAILY [facility] Amoxicillin (Amoxil) 500 mg PO Q12 [facility] Last Admin: 10/08/18 21:50 Dose: 500 mg Apixaban (Eliquis) 2.5 mg PO BID [facility] Last Admin: 10/08/18 21:50 Dose: 2.5 mg Aspirin (Ecotrin) 81 mg PO DAILY [facility] Epoetin Royer (Procrit) 10,000 units SC Q14D [facility] Ergocalciferol (Vitamin D) 50,000 unit PO BURGOS [facility] Finasteride (Proscar) 5 mg PO DAILY [facility] Furosemide (Lasix) 40 mg PO DAILY [facility] Guaifenesin (Mucinex) 1,200 mg PO BID [facility] Last Admin: 10/08/18 21:51 Dose: 1,200 mg Hydrocortisone Acetate (Anusol Hc) 25 mg RECTAL BID [facility] Stop: 10/11/18 10:01 Last Admin: 10/08/18 23:54 Dose: 25 mg Hydrocortisone Acetate (Anusol Hc) 25 mg RECTAL BID PRN PRN Labetalol HCl (Trandate) 200 mg PO BID [facility] Last Admin: 10/08/18 21:50 Dose: 200 mg Nutritional Formula (Morales - [place] Flavor) 1 [facility] Nutritional Formula (Nepro Carb Steady) 120 ml PO 4X/DAY [facility] Polysaccharide Iron Complex (Ferrex 150) 150 mg [facility] Potassium Chloride (K-Dur) 20 meq PO BIDCM [facility] Stop: 10/09/18 08:01 Last Admin: 10/08/18 21:50 Dose: 20 meq Pravastatin Sodium (Pravachol) 40 mg PO QHS [facility] Last Admin: 10/08/18 21:50 Dose: 40 mg [...] History (Last Reviewed 10/08/18 @ 21:06 by Sabra Abrams DO) Mother Hyperthyroidism Father Diabetes Aortic aneurysm rupture History Items: Diabetes Maternal Family History: Family History (Last Reviewed 10/08/18 @ 21:06 by Sabra Abrams DO) Mother Hyperthyroidism Father Diabetes Aortic [...] F Source: MARK NO DIFF 5:04 AM REPOSITORY TYPE CODE TESTS RESULT OUT OF [...] MPV 12.1 Performed By: #### L100.0500 #### [facility] [address] [place], [address] COMPREHENSIVE METABOLIC Collected: 10/09/2018 Status: F Source: MARK PROFIL 5:04 AM REPOSITORY TYPE CODE TESTS RESULT OUT OF [...] Performed By: #### L500.4050, L501.2300, L501.5200 #### [facility] [address] [facility] [place], [place], [address] PHOSPHORUS Collected: 10/09/2018 Status: F Source: MARK 5:04 AM REPOSITORY TYPE CODE TESTS RESULT OUT OF RANGE REFERENCE UNITS LAB L501.2300 2.5-4.9 mg/dL Normal PHOS 4.1 Performed By: #### L500.4050, L501.2300, L501.5200 #### [facility] [address] [place], [place], [address] MAGNESIUM Collected: 10/09/2018 Status: F Source: MARK 5:04 AM REPOSITORY TYPE CODE TESTS RESULT OUT OF RANGE REFERENCE UNITS LAB L501.5200 1.6-2.6 mg/dL Normal MG 2.0 Performed By: #### L500.4050, L501.2300, L501.5200 #### [facility] [address] [place], [address] STOOL Observed: 10/09/2018 Status: F Source: MARK LACTOFERRIN/WBC 3:25 AM REPOSITORY Stool Lacto/WBC Normal Reference Range = Negative Fecal WBC Lactoferrin Positive: Fecal WBC Lactoferrin present Performed By: #### M100.0605 #### [facility] [address], [address] Observed: 10/09/2018 Status: C Source: MARK CDIFF (MOLECULAR) 3:25 AM REPOSITORY Is the patient receiving laxatives? N New/unexplained onset of 3 or more stools in past 24 hrs? Y Cdiff-Molecular RESULTS CALLED TO Sheryl SAVAGE 10/09/18 140Yudith [place]. REPORT READ BACK BY SOPHIA. Copy of report sent to Infection Control Printer [id number] 10/09/18 2226 MARIBEL. Normal Reference Range = Negative C. Diff DNA Positive-Toxigenic C. Difficile DNA Detected NAAT METHOD Testing was performed using nucleic acid amplification ORGANISM 1: Toxigenic C. difficile DNA Performed By: #### M100.6796 #### [facility] [address] [facility] [place], [address] Observed: 10/09/2018 Status: F Source: MARK ENTERIC PATHOGEN 3:25 AM PANEL STOOL REPOSITORY EP PANEL STOOL Not [...] Not Detected Performed By: #### M100.637 #### [facility] [address] [place], [address] EMERGENCY DEPARTMENT Observed: 10/09/2018 Status: F Source: COLTS NECK SUMMARY 12:35 AM REPOSITORY [facility] Medical Records Department [address] [place] [address] Emergency Department Summary 10/08/18 1857 MR#: [id number] Acct: [id number] Name: DOUG CAST Rep #: [id number] : 1935 83 From: Doug Currie MD [...] discharged home, and then [facility] a [facility] facility secondary to functional decline. Patient apparently [...] prior radiograph This note was generated with xTurion dictation software. It may contain incorrect words, [...] problems, contact your Primary Care Provider. Call [employer] [facility] ([phone]) or report to the closest Emergency Room. Call 911 if necessary. 10/09/18 0035 <Electronically signed by Doug Currie MD> Date Doug Currie MD Cosigner Signature (If Indicated): Date CC: Vijay Mason MD HISTORY AND PHYSICAL Observed: 10/08/2018 Status: F Source: COLTS NECK EXAM 9:15 PM REPOSITORY [facility] Medical Records Department [address] [place] [address] History and Physical 10/08/182046 MR#: [id number] Acct: [id number] Name: DOUG CAST Rep #: [id number] : 1935 83 From: Sabra Abrams DO PCP: Vijay Mason MD Status: ADM IN Y Location: [facility] [id number] Problem List (1) Diarrhea Status: Acute (2) [...] who presented to the emergency department at [facility]08[facility] from [facility] with complaints of diarrhea, increased weakness, elevated [...] cannula. White blood cell count at the [facility] was 17.5 with 91% neutrophils. Hemoglobin was [...] Family, - - [place] living [place] Smoking Status: Never smoker Tobacco Use: Non-smoker Alcohol: Occasional Drugs: None - *Family History Paternal Family History: Family History (Last Reviewed 10/08/18 @ 21:06 by Sabra Abrams DO) Mother Hyperthyroidism Father Diabetes Aortic aneurysm rupture History Items: Diabetes Maternal Family History: Family History (Last Reviewed 10/08/18 @ 21:06 by Sabra Abrams DO) Mother Hyperthyroidism Father Diabetes Aortic [...] Sl. 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 Anusol HC suppositories twice daily Fecal leukocytes Enteric pathogen panel Enteric contact isolation Supplement potassium PT and OT Likely needs to go back to the [facility] Code Visit Inpatient E AND M: 43396 Init Hosp L2 10/08/182114 <Electronically signed by Sabra Abrams DO> Date Sabra Abrams DO Cosigner Signature: Date (if applicable) CC: Gail Abrams; Vijay Mason MD Signed URINALYSIS, COMPLETE Collected: 10/08/2018 Status: F Source: MARK 6:45 PM REPOSITORY Order Comment: Order Date: 10/08/18 How [...] 0-5 SEEN Performed By: #### L400.0001 #### [facility] [address] [place], [address] Observed: 10/08/2018 Status: F Source: COLTS NECK STOOL OCCULT BLOOD 5:40 PM IFOB REPOSITORY Order Date: 10/08/18 STOB iFOB Occult Blood Positive ORGANISM 1: OCCULT BLOOD POSITIVE Performed By: #### M100.7900 #### [facility] [address] [place], [address] CHEST 1 VIEW Observed: 10/08/2018 Status: F Source: MARK (PORTABLE) 5:34 PM REPOSITORY [facility] Imaging Services [address] [place] [address] Chest 1 View (Portable) MR#: [id number] Acct: [id number] Name: DOUG CAST Rep #: [id number] : 1935 M 83 From: Baltazar Moctezuma MD PCP: Vijay Mason MD Status: PRE ER Study: Chest 1 View (Portable) Date of Exam: 10/08/18 Exam# [id number] Ordering Dr: Doug Currie MD STUDY: X-RAY [...] , CC: Doug Currie; Vijay Mason MD Application Security Consultant: Signed CBC-COMPLETE BLOOD CNT Collected: 10/08/2018 Status: F Source: MARK NO DIFF 6:40 AM REPOSITORY Order Comment: 119 TYPE CODE TESTS [...] MPV 11.8 Performed By: #### L100.0500 #### [facility] [address] [place], [place], [address] BASIC METABOLIC Collected: 10/08/2018 Status: F Source: MARK PROFILE (BMP) 6:40 AM REPOSITORY Order Comment: 119 TYPE CODE TESTS [...] GAP 10 Performed By: #### L500.2500 #### [facility] [address] [place], [address] CBC-COMPLETE BLOOD CNT Collected: 10/07/2018 Status: F Source: MARK NO DIFF 7:00 AM REPOSITORY Order Comment: 119 TYPE CODE TESTS [...] MPV 11.9 Performed By: #### L100.0500 #### [facility] [address] [place], [address] BASIC METABOLIC Collected: 10/07/2018 Status: F Source: COLTS NECK PROFILE (BMP) 7:00 AM REPOSITORY Order Comment: 119 TYPE CODE TESTS [...] GAP 10 Performed By: #### L500.2500 #### [facility] [address] [place], [place], [address] CBC-COMPLETE BLOOD CNT Collected: 10/05/2018 Status: F Source: MARK NO DIFF 7:25 AM REPOSITORY TYPE CODE TESTS RESULT OUT OF [...] MPV 12.4 Performed By: #### L100.0500 #### [facility] [address] [place], [place], [address] BASIC METABOLIC Collected: 10/05/2018 Status: F Source: MARK PROFILE (BMP) 7:25 AM REPOSITORY TYPE CODE TESTS RESULT OUT OF [...] GAP 9 Performed By: #### L500.2500 #### [facility] [address] [place], [address] 12 LEAD ELECTROCARDIOGRAM Observed: 10/03/2018 Status: F Source: COLTS NECK 2:16 PM REPOSITORY [facility] Cardiovascular Services [address] [place] [address] 12 Lead EKG 09/29/18 0239 MR#: [id number] Acct: [id number] Name: CASEYTRISTANDOUG Peter Rep #: [id number] : 1935 83 From: Rah Barba MD Attending Dr: Maureen Siddiqui Status: DIS IN Ordering Dr: Chase Zavala MD Date: 09/29/18 Location: [facility] Sex: M C Admitted: 09/29/18 Test Reason [...] Abnormal ECG Confirmed by BRET MACK, RAH ([id number]), non linear editor SARY MA ([id number]) on 10/03/2018 2:16:33 PM Referred By: DR STONE Confirmed By:RAH BARBA MD 10/03/18 1416 Date Rah Barba MD CC: Maureen Siddiqui; Chase Zavala MD; Vijay Mason MD Signed 12 LEAD ELECTROCARDIOGRAM Observed: 10/03/2018 Status: F Source: MARK 2:15 PM REPOSITORY [facility] Cardiovascular Services [address] [place] [address] 12 Lead EKG 09/30/18 0451 MR#: [id number] Acct: [id number] Name: DOUG CAST Rep #: [id number] : 1935 83 From: Rah Barba MD Attending Dr: Maureen Siddiqui Status: DIS IN Ordering Dr: Rah Barba MD Date: 09/30/18 Location: [facility] Sex: M C Admitted: 09/29/18 Test Reason [...] ECG Confirmed by BRET MACK, RAH ([id number]), non linear editor SARY MA ([id number]) on 10/03/2018 2:14:38 PM Referred By: JOSE Confirmed By:RAH BARBA MD 10/03/18 1414 Rah Barba MD CC: Maureen Siddiqui; Rah Barba MD; Vijay Mason MD Signed DISCHARGE SUMMARY Observed: 10/02/2018 Status: F Source: MARK 3:00 PM REPOSITORY [facility] Medical Records Department [address] [place] [address] Discharge Summary 10/02/18 1423 MR#: [id number] Acct: [id number] Name: DOUG CAST Rep #: [id number] : 1935 83 From: Lion BARONE PCP: Vijay Mason MD Status: DIS IN Y Location: [place] [address] ADDENDUM by Maureen Siddiqui on 10/02/18 at [...] AOCD/Fe deficiency anemia who presented to the [facility] ED on 09/29/18 w/ history of shortness [...] hospital summary above. Inpatient E AND M: 26591 Disch Hosp 10/02/18 1500 <Electronically signed by [...] right pulmonary infiltration. 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 Routine Comment: Reason for Consult:: Lymphedema of [...] 09/11/18 Menthol/Lanolin/Calamine/Znox [Calmoseptine Ointment] 1 applic TOPICAL 06,22 tube 09/11/18 Acetaminophen [Tylenol Tablet] 650 mg [...] 10/02/2018 Status: C Source: MARK 2:55 PM REPOSITORY [facility] Medical Records Department [address] [place] [address] Instructions for Home/Discharge Instructions 10/02/18 1000 MR#: [id number] Acct: [id number] Name: DOUG CAST Rep #: [id number] : 1935 83 From: Lion BARONE PCP: Vijay Mason MD Status: DIS IN ADDENDUM by Maureen Siddiqui on 10/02/18 at 1455 Additional Follow-up recommendation: Please follow-up with your sign wirer or consider Dr. Sandrine Ramirez within 1-2 [...] [Calmoseptine Ointment] 1 applic TOPICAL tube 09/11/18 Acetaminophen [Tylenol Tablet] 650 mg [...] Source: MARK CULTURE, BLOOD (WB) 8:40 AM REPOSITORY Has pt arrived? Y BC No growth in 5 days. Performed By: #### M200.1000 #### [facility] [address] [place], [address] Observed: 10/02/2018 Status: F Source: MARK CULTURE, BLOOD (WB) 8:30 AM REPOSITORY Has pt arrived? Y BC No growth in 5 days. Performed By: #### M200.1000 #### [facility] [address] [place], [address] BASIC METABOLIC Collected: 10/02/2018 Status: F Source: MARK PROFILE (BMP) 6:20 AM REPOSITORY TYPE CODE TESTS RESULT OUT OF [...] GAP 9 Performed By: #### L500.2500 #### [facility] [place], [address] CBC W/DIFF, AUTOMATED Collected: 10/02/2018 Status: F Source: COLTS NECK 6:20 AM REPOSITORY Order Comment: Comments: due to heparin [...] Lymph 0.26 Performed By: #### L100.0100 #### [facility] [address] [place], [address] PARTIAL THROMBOPLAST Collected: 10/02/2018 Status: F Source: COLTS NECK TIME 6:20 AM REPOSITORY Order Comment: Comments: on heparin drip TYPE CODE TESTS RESULT OUT OF REFERENCE UNITS RANGE LAB L300.4310 24.1-36.2 Seconds High PTT 72.4 Performed By: #### L300.4310 #### [facility] [address] [facility] [place], [address] CHEST PA AND LATERAL Observed: 10/02/2018 Status: F Source: COLTS NECK 12:00 AM REPOSITORY [facility] Imaging Services [address] [facility] [place] [address] Chest PA and Lateral MR#: [id number] Acct: [id number] Name: DOUG CAST Rep #: [id number] : 1935 M 83 From: Stiven Ball MD PCP: Vijay Mason MD Status: ADM IN Study: Chest PA and Lateral Date of Exam: 10/02/18 Exam# [id number] Ordering Dr: Lion Green STUDY: X-RAY CHEST [...] Stiven Ball MD at 13:51 EST Tel [phone], Service support , CC: ABISAI Green; Vijay Mason MD Application Security Consultant: Signed PARTIAL THROMBOPLAST Collected: 10/01/2018 Status: F Source: COLTS NECK TIME 8:22 PM REPOSITORY TYPE CODE TESTS RESULT OUT OF REFERENCE UNITS RANGE LAB L300.4310 24.1-36.2 Seconds High PTT 72.6 Performed By: #### L300.4310 #### [facility] [address] [facility], [address] 12 LEAD ELECTROCARDIOGRAM Observed: 10/01/2018 Status: F Source: COLTS NECK 2:55 PM REPOSITORY [facility] Cardiovascular Services [address] [place] [address] 12 Lead EKG 09/28/18 2232 MR#: [id number] Acct: [id number] Name: CASEYTRISTANDOUG Rep #: [id number] : 1935 83 From: Rah Barba MD Attending Dr: Maureen Siddiqui Status: ADM IN Ordering Dr: Baltazar Sultana MD Date: 09/28/18 Location: U Sex: M C Admitted: 09/29/18 Test Reason [...] Abnormal ECG Confirmed by BRET MACK, RAH ([id number]), non linear editor SARY MA ([id number]) on 10/01/2018 2:55:25 PM Referred By: MARY Confirmed By:RAH BARBA MD 10/01/18 1455 Date Rah Barba MD CC: Maureen Siddiqui; BALTAZAR SULTANA MD; Vijay Mason MD Signed PARTIAL THROMBOPLAST Collected: 10/01/2018 Status: F Source: COLTS NECK TIME 2:00 PM REPOSITORY TYPE CODE TESTS RESULT OUT OF REFERENCE UNITS RANGE LAB L300.4310 24.1-36.2 Seconds High PTT 76.0 Performed By: #### L300.4310 #### [facility] [address] [place], [address] MODIFIED BARIUM Observed: 10/01/2018 Status: F Source: COLTS NECK SWALLOW STUDY 1:41 PM REPOSITORY [facility] Speech Pathology [address] [place] [address] Modified Barium Swallow Study MR#: [id number] Acct: [id number] Name: DOUG CAST Rep #: [id number] : 1935 83 From: Nohemy Booth M.A. [facility] PRIMARY / SECONDARY DIAGNOSIS: HCAP/dysphagia REFERRING PHYSICIAN: [...] Pt is an [address] [facility] on 09/29/2018 d/t shortness of breath, workup revealed sepsis with bacteremia secondary to gram positive pneumonia, atrial fibrillation w/ RVR, metabolic encephalopathy. Pt. known to [facility] SHORT ORDER COOK department from admission earlier this year (Jul), [...] 10/01/18 1341 <Electronically signed by Nohemy Booth M.A., CCC-SHORT ORDER COOK> Date Nohemy Booth M.A., CCC-[facility] ORDER COOK Co-Signature Required for all Medicare patients Date/Time Co-Signature CC: BASIC METABOLIC Collected: 10/01/2018 Status: F Source: MARK PROFILE (BMP) 6:20 AM REPOSITORY TYPE CODE TESTS RESULT OUT OF [...] GAP 11 Performed By: #### L500.2500 #### [facility] [place], [address] CBC W/DIFF, AUTOMATED Collected: 10/01/2018 Status: F Source: COLTS NECK 6:20 AM REPOSITORY TYPE CODE TESTS RESULT OUT OF [...] Lymph 0.24 Performed By: #### L100.0100 #### [facility] [address] [place], [address] PARTIAL THROMBOPLAST Collected: 10/01/2018 Status: F Source: MARK TIME 6:20 AM REPOSITORY TYPE CODE TESTS RESULT OUT OF REFERENCE UNITS RANGE LAB L300.4310 24.1-36.2 Seconds High PTT 84.3 Performed By: #### L300.4310 #### [facility] [address] [place], [address] MAGNESIUM Collected: 10/01/2018 Status: F Source: MARK 6:20 AM REPOSITORY Order Comment: Comments: ok to add on TYPE CODE TESTS RESULT OUT OF RANGE REFERENCE UNITS LAB L501.5200 1.6-2.6 mg/dL Normal MG 1.8 Performed By: #### L501.5200 #### [facility] [address] [place], [address] PHOSPHORUS Collected: 10/01/2018 Status: F Source: MARK 6:20 AM REPOSITORY Order Comment: Comments: ok to add on TYPE CODE TESTS RESULT OUT OF RANGE REFERENCE UNITS LAB L501.2300 2.5-4.9 mg/dL Normal PHOS 3.8 Performed By: #### L501.2300 #### [facility] [address] [place], [address] SWALLOWING FUNCTION Observed: 10/01/2018 Status: F Source: MARK W/VIDEO 12:00 AM REPOSITORY [facility] Imaging Services [address] [facility] [place] [address] Swallowing Function w/Video MR#: [id number] Acct: [id number] Name: DOUG CAST Brittani Rep #: [id number] : 1935 M 83 From: Stiven Ball MD PCP: Vijay Mason MD Status: ADM IN Study: Swallowing Function w/Video Date of Exam: 10/01/18 Exam# [id number] Ordering Dr: Maureen Siddiqui STUDY: SWALLOWING STUDY [...] Stiven Ball MD at 11:40 EST Tel [phone], Service support , CC: Maureen Siddiqui; Vijay Mason MD Application Security Consultant: Signed Observed: 09/30/2018 Status: F Source: MARK CULTURE, BLOOD (WB) 4:50 PM REPOSITORY Has pt arrived? Y BC No growth in 5 days. Performed By: #### M200.1000 #### [facility] [place], [address] Observed: 09/30/2018 Status: F Source: COLTS NECK CULTURE, BLOOD (WB) 4:38 PM REPOSITORY Has pt arrived? Y BC No growth in 5 days. Performed By: #### M200.1000 #### [facility] [address] [place], [address] ECHOCARDIOGRAM COMPLETE Observed: 09/30/2018 Status: F Source: MARK 4:23 PM REPOSITORY [facility] Cardiovascular Services [address] [place] [address] Echo Complete 09/30/18 1457 MR#: [id number] Acct: [id number] Name: DOUG CAST Rep #: [id number] : 1935 83 From: Rah Barba MD Attending Dr: Maureen Siddiqui Status: ADM IN Ordering Dr: Chase Zavala MD Date: 09/29/18 Location: PCU Sex: M C Admitted: 09/29/18 Reason For [...] VIJAY MASON Performed By: Carla Reardon RDCS 09/30/18 1623 Date Rah Barba MD CC: Maureen Siddiqui; Chase Zavala MD; Vijay Mason MD Date Dictated: 09/30/18 1457 Date Transcribed: 09/30/181622 Application Security Consultant: Signed CONSULTATION Observed: 09/30/2018 Status: F Source: COLTS NECK 11:49 AM [facility] Medical Records Department [address] [place] [address] Consultation 09/30/18 1146 MR#: [id number] Acct: [id number] Name: DOUG CAST Rep #: [id number] : 1935 83 From: Oscar Wilson MD PCP: Vijay Mason MD Status: ADM IN Location: [place] [address] Reason for Consult: Pneumococcal pneumonia with bacteremia [...] current antibiotic therapy and supportive care. 09/30/18 1149 <Electronically signed by Oscar Wilson MD> Date Oscar Wilson MD Cosigner Signature (if applicable): Date CC: Oscar Wilson M.D.; Rah Barba MD; Vijay Mason MD Signed CBC W/DIFF, AUTOMATED Collected: 09/30/2018 Status: F Source: MARK 5:14 AM REPOSITORY TYPE CODE TESTS RESULT OUT OF [...] LYMPHOPENIA NOTED Performed By: #### L100.0100 #### [facility] [address] [place], [address] PARTIAL THROMBOPLAST Collected: 09/30/2018 Status: F Source: COLTS NECK TIME 5:14 AM REPOSITORY Order Comment: Comments: Heparin gtt TYPE CODE TESTS RESULT OUT OF REFERENCE UNITS RANGE LAB L300.4310 24.1-36.2 Seconds High PTT 70.6 Performed By: #### L300.4310 #### [facility] [address] [place], [address] BASIC METABOLIC Collected: 09/30/2018 Status: F Source: COLTS NECK PROFILE (BMP) 5:14 AM REPOSITORY TYPE CODE TESTS RESULT OUT OF [...] GAP 10 Performed By: #### L500.2500 #### [facility] [address] [place], [address] PARTIAL THROMBOPLAST Collected: 09/29/2018 Status: F Source: COLTS NECK TIME 9:15 PM REPOSITORY Order Comment: Comments: HEPARIN DRIP VRI TYPE CODE TESTS RESULT OUT OF REFERENCE UNITS RANGE LAB L300.4310 24.1-36.2 Seconds High PTT 62.6 Performed By: #### L300.4310 #### [facility] [address] [place], [address] PARTIAL THROMBOPLAST Collected: 09/29/2018 Status: F Source: COLTS NECK TIME 3:18 PM REPOSITORY Order Comment: REDRAW. PREVIOUS SPECIMEN WAS REJECTED FOR TESTING DUE TO HEMOLYSIS. SPECIMEN WAS DISCARDED. 09/29/18 1549 Sarwat Galdamez. TYPE CODE TESTS RESULT OUT OF REFERENCE UNITS RANGE LAB L300.4310 24.1-36.2 Seconds High PTT 69.4 Performed By: #### L300.4310 #### [facility] [address] [place], [address] CONSULTATION Observed: 09/29/2018 Status: F Source: COLTS NECK 1:46 PM REPOSITORY [facility] Medical Records Department [address] [place] [address] Consultation 09/29/18 1335 MR#: [id number] Acct: [id number] Name: DOUG CAST Rep #: [id number] : 1935 83 From: Rah Barba MD PCP: Vijay Mason MD Status: ADM IN Y Location: [place] [address] Problem List (1) Atrial fibrillation with RVR [...] has been in and out of the [facility] and its associated transitional care unit [...] 93.1 H, Lymph % (Auto) 2.2 L, Bryan % (Auto) 4.2, Eos % (Auto) 0.1, [...] Clarity Cloudy, Urine pH 5.0, Ur Specific [place] 1.020, Urine Protein 500 H, Urine Glucose [...] was discussed with the patient and his [id number] who was present at this time. This [...] F Source: MARK PNEUMONIAE ANTIG(UR,CSF) 10:30 AM REPOSITORY Order Date: 09/29/18 Has pt arrived? Y S pneumo Ag URINE INTERPRETATION Positive Urine Positive for pneumococcal pneumonia. RESULTS CALLED TO Megan MOURA 09/29/18 [place]7 Alessandra Cleveland. REPORT READ BACK BY JORDAN. Copy of report sent to Infection Control Printer [id number] 09/29/18 Miguel LÓPEZ. Strep pneumo Test Urine POSITIVE for pneumococcal pneumonia. ORGANISM 1: Streptococcus pneumonia Ag Performed By: #### M300.4600 #### [facility] [address] [facility] [place], [address] Observed: 09/29/2018 Status: F Source: MARK LEGIONELLA ANTIGEN 10:30 AM URINE REPOSITORY Order Date: 09/29/18 Has pt arrived? Y Specimen Source: URINE, CATHETER Legionella, UR Legionella Antigen result interpretation: Negative Presumptive negative for Legionella pneumophila serogroup 1 antigen in urine, suggesting no recent or current infection. Legionella Ag, Urine Negative (See interpretation below) Performed By: #### M300.4500 #### [facility] [address] [facility] [place], [address] PARTIAL THROMBOPLAST Collected: 09/29/2018 Status: F Source: MARK TIME 8:46 AM REPOSITORY TYPE CODE TESTS RESULT OUT OF REFERENCE UNITS RANGE LAB L300.4310 24.1-36.2 Seconds High PTT 69.4 Performed By: #### L300.4310 #### [facility] [address] [facility] [place], [address] CBC-COMPLETE BLOOD CNT Collected: 09/29/2018 Status: F Source: MARK NO DIFF 3:14 AM REPOSITORY TYPE CODE TESTS RESULT OUT OF [...] MPV 11.1 Performed By: #### L100.0500 #### [facility] [address] [place], [place], [address] BASIC METABOLIC Collected: 09/29/2018 Status: F Source: MARK PROFILE (BMP) 3:14 AM REPOSITORY TYPE CODE TESTS RESULT OUT OF [...] GAP 10 Performed By: #### L500.2500 #### [facility] [address] [place], [place], [address] LACTIC ACID Collected: 09/29/2018 Status: F Source: COLTS NECK 3:14 AM REPOSITORY TYPE CODE TESTS RESULT OUT OF RANGE REFERENCE UNITS LAB L503.6005 0.4-2.0 mmol/L Normal LACTIC ACID 1.1 Performed By: #### L503.6005 #### [facility] [address] [facility] [place], [address] BNP,B-TYPE NATRIURETIC Collected: 09/29/2018 Status: F Source: MARK PEPTIDE 3:14 AM REPOSITORY Order Comment: Comments: from blood in lab. TYPE CODE TESTS RESULT OUT OF RANGE REFERENCE UNITS LAB L503.6620 0-100 pg/mL High B-TYPE 236.5 ARNOLD PEP Performed By: #### L503.6620 #### [facility] [address] [place], [address] PROTHROMBIN TIME W/INR Collected: 09/29/2018 Status: F Source: MARK 2:20 AM REPOSITORY TYPE CODE TESTS RESULT OUT OF RANGE REFERENCE UNITS LAB L300.4150 11.7-14.9 SECONDS High PROTIME 19.2 LAB L300.4200 Normal INR 1.6 Performed By: #### L300.3900, L300.4310 #### [facility] [address] [place], [address] PARTIAL THROMBOPLAST Collected: 09/29/2018 Status: F Source: MARK TIME 2:20 AM REPOSITORY TYPE CODE TESTS RESULT OUT OF REFERENCE UNITS RANGE LAB L300.4310 24.1-36.2 Seconds High PTT 58.1 Performed By: #### L300.3900, L300.4310 #### [facility] [address] [facility] [place], [address] HISTORY AND PHYSICAL Observed: 09/29/2018 Status: F Source: MARK EXAM 1:57 AM REPOSITORY [facility] Medical Records Department [address] [place] [address] History and Physical 09/29/18 0005 MR#: [id number] Acct: [id number] Name: DOUG CAST Rep #: [id number] : 1935 83 From: Chase Zavala MD PCP: Vijay Mason MD Status: ADM IN Location: [place] [address] Problem List (1) Acute kidney injury superimposed [...] the name of the president of the [employer]. Psych/Mental Status: Normal Affect, Appropriate Vital Signs [...] (Auto) Neut % (Auto) Lymph % (Auto) Bryan % (Auto) POC Glucose POC Glucose 122 [...] failure. Trend CBC and BMP. Atrial fibrillation [id number] Score: Age >=75 (2 points) ; HTN [...] fib. Code Visit Inpatient E AND M: 32338 Init Hosp L3 09/29/18 0157 <Electronically signed by Chase Zavala MD> Date [facility] Signature: Date (if applicable) CC: Chase Zavala MD; Vijay Mason MD Signed EMERGENCY DEPARTMENT Observed: 09/29/2018 Status: F Source: COLTS NECK SUMMARY 12:37 AM REPOSITORY [facility] Medical Records Department [address] [place] [address] Emergency Department Summary 09/28/18 2254 MR#: [id number] Acct: [id number] Name: DOUG CAST Rep #: [id number] : 1935 83 From: Baltazar Sultana MD [...] (Auto) Neut % (Auto) Lymph % (Auto) Bryan % (Auto) - Rhythm Strip Rhythm Strip: [...] Disposition - Plan for ED Patient: Disposition: [facility] Chief Complaint: Alt LOC Diagnosis: HCAP (healthcare-associated [...] problems, contact your Primary Care Provider. Call [employer] [facility] ([phone]) or report to the closest Emergency Room. Call 911 if necessary. 09/29/18 0037 <Electronically signed by Baltazar Sultana MD> Date Baltazar Sultana MD Cosigner Signature (If Indicated): Date CC: Vijay Mason MD URINALYSIS, COMPLETE Collected: 09/28/2018 Status: F Source: MARK 11:55 PM REPOSITORY Order Comment: Order Date: 09/28/18 How was Urine Obtained? 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, [address] CHEST 1 VIEW Observed: 09/28/2018 Status: F Source: COLTS NECK (PORTABLE) 10:53 PM REPOSITORY [facility] Imaging Services [address] [place] [address] Chest 1 View (Portable) MR#: [id number] Acct: [id number] Name: DOUG CAST Rep #: [id number] : 1935 M 83 From: Johnathan Wakefield MD PCP: Vijay Mason MD Status: REG ER Study: Chest 1 View (Portable) Date of Exam: 09/28/18 Exam# [id number] Ordering Dr: Baltazar Sultana MD STUDY: X-RAY [...] CC: BALTAZAR SULTANA MD; Vijay Mason MD Application Security Consultant: Signed BRAIN/HEAD WITHOUT Observed: 09/28/2018 Status: F Source: COLTS NECK CONTRAST 10:53 PM REPOSITORY [facility] Imaging Services [address] [place] [address] Brain/Head without Contrast MR#: [id number] Acct: [id number] Name: DOUG CAST Rep #: [id number] : 1935 M 83 From: Johnathan Wakefield MD PCP: Vijay Mason MD Status: REG ER Study: Brain/Head without Contrast Date of Exam: 09/28/18 Exam# [id number] Ordering Dr: Baltazar Sultana MD STUDY: CT [...] CC: BALTAZAR SULTANA MD; Vijay Mason MD Application Security Consultant: Signed Observed: 09/28/2018 Status: F Source: COLTS NECK CULTURE, BLOOD (WB) 10:38 PM REPOSITORY GRAM STAIN = GRAM POSITIVE COCCI [...] 0.5 S (NF) indicates non-formulary drug at [facility]. Approval by Infectious Disease Specialist required before non-formulary drugs may be ordered and/or dispensed. * CLSI guidelines does not recommend testing of cephalosporins. This interpretation is deduced from Beta-lactam/penicillin results. Performed By: #### M200.1000, M100.636 #### [facility] [address] [place], [address] Observed: 09/28/2018 Status: C Source: [facility] GPC ID 10:38 PM REPOSITORY BC GPC ID Copy of report sent to Infection Control Printer [id number] 09/29/18 1427 NSTANSLOS. Staphylococcus sp. Not Detected Enterococcus sp. Not Detected Streptococcus spp. Streptococcus pneumoniae Listeria spp Not Detected Mylene/vanB Not Detected mecA Not Detected NAAT METHOD Testing was performed using nucleic acid amplification ORGANISM 1: Streptococcus pneumoniae Performed By: #### M200.1000, M100.636 #### [facility] [address] [place], [address] CBC W/DIFF, AUTOMATED Collected: 09/28/2018 Status: F Source: COLTS NECK 10:33 PM REPOSITORY TYPE CODE TESTS RESULT OUT OF [...] LYMPHOPENIA NOTED Performed By: #### L100.0100 #### [facility] [address] [facility] [address] [place], [place], [address] BEDSIDE GLUCOSE Collected: 09/28/2018 Status: F Source: COLTS NECK 10:33 PM REPOSITORY TYPE CODE TESTS RESULT OUT OF REFERENCE UNITS RANGE LAB L501.080 70-110 mg/dL High BEDSIDE GLU 122 Result Comment: MANAGEMENT OF PATIENT CARE PER NURSING PROTOCOL Performed By: #### L501.080 #### [facility] Point of Care [address] [facility] [place], [place] [address] BASIC METABOLIC Collected: 09/28/2018 Status: F Source: COLTS NECK PROFILE (BMP) 10:33 PM REPOSITORY TYPE CODE TESTS RESULT OUT OF [...] 9 Performed By: #### L500.2500, L501.4010 #### [facility] [address] [facility] [place], [place], [address] TROPONIN-I Collected: 09/28/2018 Status: F Source: COLTS NECK 10:33 PM REPOSITORY TYPE CODE TESTS RESULT OUT OF RANGE REFERENCE UNITS LAB L501.4010 <0.045 ng/mL Normal < 0.015 TROPONIN-I Result Comment: TROPONIN-I EXPECTED VALUES <0.045 Negative 0.045 - 0.590 Consistent with Cardiac Damage > OR = 0.600 Critical Value Not every elevated troponin is indicative of UT. These values should be used with clinical judgement in examining the patient's clinical picture for diagnosis. To establish a diagnosis of UT versus myocardial injury, there must be a demonstrated rise and/or fall in the troponin values, in addition to ischemic symptoms, EKG changes, new regional wall motion abnormality, and/or angiographical evidence. PLEASE NOTE: REFERENCE RANGES EDITED 18 Performed By: #### L500.2500, L501.4010 #### [facility] [address] [facility] [place], [place], [address] LACTIC ACID Collected: 09/28/2018 Status: F Source: COLTS NECK 10:33 PM REPOSITORY Order Comment: Yes/No query for Sepsis Lactate Rule Y TYPE CODE TESTS RESULT OUT OF REFERENCE UNITS RANGE LAB L503.6005 0.4-2.0 mmol/L High LACTIC ACID 2.1 Result Comment: Critical Result(s) Called at: 23:16:10 09/28/2018 by: Cecilia Chew Performed By: #### L503.6005 #### [facility] [address] [place], [address] MAGNESIUM Collected: 09/28/2018 Status: F Source: MARK 10:33 PM REPOSITORY TYPE CODE TESTS RESULT OUT OF RANGE REFERENCE UNITS LAB L501.5200 1.6-2.6 mg/dL Normal MG 1.7 Performed By: #### L501.5200, L501.9520 #### [facility] [address] [facility] [place], [address] THYROID STIM HORMONE Collected: 09/28/2018 Status: F Source: MARK (TSH) 10:33 PM REPOSITORY TYPE CODE TESTS RESULT OUT OF RANGE REFERENCE UNITS LAB L501.9520 0.358-3.74 uIU/mL Normal TSH 1.47 Performed By: #### L501.5200, L501.9520 #### [facility] [place], [address] Observed: 09/28/2018 Status: F Source: MARK CULTURE, BLOOD (WB) 10:33 PM REPOSITORY BC GRAM STAIN = GRAM POSITIVE COCCI CHAINS RESULTS CALLED TO Sabra HERNANDEZ 09/29/18 Erendira Cleveland. REPORT READ BACK BY LUIS FELIPE. PLEASE REFER TO [id number] FOR SENSITIVITY RESULTS Copy of report sent to Infection Control Printer [id number] 09/30/18 0939 BLUCAS. AEROBIC BOTTLE NO GROWTH 5 DAYS. ORGANISM 1: Streptococcus pneumoniae Amount Growth Growth Performed By: #### M200.1000 #### [facility] [address] [facility] [place], [address] CBC W/DIFF, AUTOMATED Collected: 09/23/2018 Status: F Source: MARK 3:25 PM REPOSITORY TYPE CODE TESTS RESULT OUT OF [...] Lymph 0.67 Performed By: #### L100.0100 #### [facility] [place], [address] COMPREHENSIVE METABOLIC Collected: 09/23/2018 Status: F Source: [facility] 3:25 PM REPOSITORY TYPE CODE TESTS RESULT OUT OF [...] GAP 12 Performed By: #### L500.4050 #### [facility] [address] [place], [place] [address], [address] COLTS NECK ABS GR + CBC Collected: 09/18/2018 Status: F Source: [place] 11:14 AM [facility] REPOSITORY TYPE CODE TESTS RESULT OUT OF REFERENCE UNITS RANGE LAB WWBC 3.70-11.00 k/uL Makr WBC 6.75 LAB WRBC 4.20-6.00 m/uL Low [place] RBC 3.64 LAB WHGB 13.0-17.0 g/dL Low [place] Hemoglobin 10.6 LAB WHCT 39.0-51.0 % Low [place] Hematocrit 35.2 LAB WMCV 80.0-100.0 fL [place] MCV 96.7 LAB WMCH 26.0-34.0 pg Mark MCH 29.1 LAB WMCHC 30.5-36.0 g/dL Low [place] MCHC 30.1 LAB WRDW 11.5-15.0 % Mark RDW 14.9 LAB WPLT 150-400 k/uL [place] Platelet Cnt 152 LAB WMPV 9.0-12.7 fL [place] MPV 10.7 Result Comment: Test performed at: [facility], [address] [place] [address]. LAB ABGRAN 1.45-7.50 k/uL Absol Gran 5.18 Count HOME HEALTH PROGRESS Observed: 09/11/2018 Status: F Source: COLTS NECK NOTE 9:15 PM REPOSITORY [facility] Medical Records Department [address] [place] [address] Home Health Progress Note Sunc-va-Oure Encounter Encounter Date: 09/11/182113 MR#: [id number] Acct: [id number] Name: DOUG CAST Brittani Rep #: [id number] : 1935 83 From: Christiano Boss MD PCP: Vijay Mason MD Status: ADM IN Location: [place] [address] Home Health Note - Plan Overview of [...] (Chronic) - Requirements and Reasons Disciplines Needed/Ordered: Residential, Physical Therapy Reason for Disciplines: Disease Specific [...] DISCHARGE SUMMARY Observed: 09/11/2018 Status: F Source: MARK 9:14 PM REPOSITORY [facility] Medical Records Department [address] [place] [address] Discharge Summary 09/11/182111 MR#: [id number] Acct: [id number] Name: DOUG CAST Brittani Rep #: [id number] : 1935 83 From: Christiano Boss MD PCP: Vijay Mason MD Status: ADM IN Location: [facility] Discharge Date and Diagnosis - Problem List [...] RDW 16.5 H Consultations 08/19/18 15:03 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: 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 Routine Comment: Reason for Consult:: CELLULITES BLE'S [...] 09/11/18 Menthol/Lanolin/Calamine/Znox [Calmoseptine Ointment] 1 applic TOPICAL ,22 tube 09/11/18 Nutritional Supplement [Morales - ORANGE [...] DISCHARGE INSTRUCTION Observed: 09/11/2018 Status: F Source: COLTS NECK 9:12 PM REPOSITORY [facility] Medical Records Department [address] [place] [address] Instructions for Home/Discharge Instructions 09/11/182110 MR#: [id number] Acct: [id number] Name: DOUG CAST Rep #: [id number] : 1935 83 From: Christiano Boss MD [...] Vijay Mason When: F/U AFTER DC FROM U Proposed Discharge Date: 09/17/18 09/11/182111 <Electronically signed by Christiano Boss MD> Date Christiano Boss MD CC: Vijay Mason MD CBC W/DIFF, AUTOMATED Collected: 09/11/2018 Status: F Source: MARK 5:10 AM REPOSITORY TYPE CODE TESTS RESULT OUT OF [...] Lymph 0.69 Performed By: #### L100.0100 #### [facility] [place], [address] BASIC METABOLIC Collected: 09/11/2018 Status: F Source: MARK PROFILE (BMP) 5:10 AM REPOSITORY TYPE CODE TESTS RESULT OUT OF [...] GAP 7 Performed By: #### L500.2500 #### [facility] [address] [place], [address] BASIC METABOLIC Collected: 09/03/2018 Status: F Source: COLTS NECK PROFILE (BMP) 5:45 AM REPOSITORY TYPE CODE TESTS RESULT OUT OF [...] GAP 5 Performed By: #### L500.2500 #### [facility] [address] [place], [address] CBC W/DIFF, AUTOMATED Collected: 09/03/2018 Status: F Source: COLTS NECK 5:45 AM REPOSITORY TYPE CODE TESTS RESULT OUT OF [...] MACROCYTE RARE Performed By: #### L100.0100 #### [facility] [address] [place], [place], [address] BASIC METABOLIC Collected: 08/30/2018 Status: F Source: COLTS NECK PROFILE (BMP) 5:05 AM REPOSITORY TYPE CODE TESTS RESULT OUT OF [...] GAP 6 Performed By: #### L500.2500 #### [facility] [address] [place], [address] BASIC METABOLIC Collected: 08/27/2018 Status: F Source: MARK PROFILE ([facility]) 6:44 AM REPOSITORY TYPE CODE TESTS RESULT OUT OF [...] 8 GAP Performed By: #### L500.2500 #### [facility] [address] [place], [address] CBC W/DIFF, AUTOMATED Collected: 08/27/2018 Status: F Source: MARK 6:44 AM REPOSITORY TYPE CODE TESTS RESULT OUT OF [...] Lymph 0.67 Performed By: #### L100.0100 #### [facility] [address] [place], [address] BASIC METABOLIC Collected: 08/20/2018 Status: F Source: COLTS NECK PROFILE (BMP) 5:30 AM REPOSITORY TYPE CODE TESTS RESULT OUT OF [...] GAP 5 Performed By: #### L500.2500 #### [facility] [address] [place], [place] [address], [address] CBC W/DIFF, AUTOMATED Collected: 08/20/2018 Status: F Source: COLTS NECK 5:30 AM REPOSITORY TYPE CODE TESTS RESULT OUT OF [...] COMMENT SCANNED Performed By: #### L100.0100 #### [facility] [address] [place], [address] HISTORY AND PHYSICAL Observed: 08/19/2018 Status: F Source: COLTS NECK EXAM 8:21 PM REPOSITORY [facility] Medical Records Department [address] [place] [address] History and Physical 08/19/181957 MR#: [id number] Acct: [id number] Name: DOUG CAST Brittani Rep #: [id number] : 1935 83 From: Christiano Boss MD PCP: Vijay Mason MD Status: ADM IN Y Location: [place] [address] Problem List (1) Metabolic encephalopathy Status: Acute [...] with below past medical history presented to [facility] Emergency Department with confusion. 08/14/2018 EKG [...] Christiano Boss MD> Date Christiano Boss MD [facility] Signature: Date (if applicable) CC: Vijay Mason MD; Christiano Boss MD Signed DISCHARGE SUMMARY Observed: 08/19/2018 Status: F Source: MARK 2:25 PM REPOSITORY [facility] Medical Records Department [address] [place] [address] Discharge Summary 08/19/18 1311 MR#: [id number] Acct: [id number] Name: DOUG CAST Rep #: [id number] : 1935 83 From: Jose Guadalupe Barton MD PCP: Vijay Mason MD Status: ADM IN Location: [place] [address] Discharge Date and Diagnosis - Problem List [...] fracture or subluxation. 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 Routine Comment: Reason for Consult:: wounds on [...] In 3- 5 days after discharge Disposition: Residential facility Minutes spent on discharge:: 35 Patient Condition:: Good Medical Necessity - Tobacco Use Smoking Status: Never smoker Meaningful Use Info Meaningful Use Diagnoses (Choose all that apply): None applicable Code Visit Inpatient Ankit AND M: 15525 Disch Hosp 08/19/18 1425 <Electronically signed by Jose Guadalupe Barton MD> Date Jose Guadalupe Barton MD Cosigner Signature (if applicable): Date CC: Jose Guadalupe Barton MD; Vijay Mason MD Signed TRANSFER TO [facility] Observed: 08/19/2018 Status: F Source: COLTS NECK CARE 1:09 PM REPOSITORY [facility] Medical Records Department [address] [place] [address] Transfer to Extended Care MR#: [id number] Acct: [id number] Name: DOUG CAST Rep #: [id number] : 1935 83 From: Jose Guadalupe Barton MD PCP: Vijay Mason MD Status: ADM IN DOUG CAST (Patient) (Health Ins. Claim No.) (Day of Discharge to Facility) Certification of patient admission REQUIRED AT TIME OF ADMISSION. I CERTIFY THAT POST-HOSPITAL ECF SERVICES ARE REQUIRED TO BE GIVEN ON AN IN-PATIENT BASIS BECAUSE OF THE ABOVE NAMED PATIENT'S NEED FOR GROUP HOME CARE ON A CONTINUING BASIS FOR THE CONDITION(S) FOR WHICH HE/SHE WAS RECEIVING IN-PATIENT HOSPITAL SERVICES PRIOR TO HIS/HER TRANSFER TO THE ECF. 08/19/18 1309 <Electronically signed by Jose Guadalupe Barton MD> Date Jose Guadalupe Barton MD - Diet 08/15/18 10:16 Diet: Regular Diet Food consistency:: Regular Liquid Consistency:: Regular/Thin Is pt able to select menu?: No Diet Comments: supervision by staff / family; [facility] - Wound(s) BILATERAL FEET Wound Type: Stasis [...] Recommendations/Changes: Rec low sodium diet- consistency per SHORT ORDER COOK. Continue Ensure Enlive w/ medpass as tolerated. [...] LEAD ELECTROCARDIOGRAM Observed: 08/19/2018 Status: F Source: COLTS NECK 12:32 PM REPOSITORY [facility] Cardiovascular Services [address] [place] [address] 12 Lead EKG 08/14/18 1900 MR#: [id number] Acct: [id number] Name: DOUG CAST Rep #: [id number] : 1935 83 From: Rah Barba MD Attending Dr: Jose Guadalupe Barton MD Status: ADM IN Ordering Dr: Ata Heath MD Date: 08/14/18 Location: U Sex: M C Admitted: 08/14/18 Test Reason [...] Abnormal ECG Confirmed by BRET MACK, RAH ([id number]), non linear editor LINO HOYT ([id number]) on 08/19/2018 12:32:25 PM Referred By: SL Confirmed By:RAH BARBA MD 08/19/18 1232 Date Rah Barba MD CC: Jose Guadalupe Barton MD; Ata Heath MD; Vijay Mason MD Signed BASIC METABOLIC Collected: 08/19/2018 Status: F Source: COLTS NECK PROFILE (BMP) 5:50 AM REPOSITORY TYPE CODE TESTS RESULT OUT OF [...] GAP 7 Performed By: #### L500.2500 #### [facility] [address] [place], [address] BASIC METABOLIC Collected: 08/18/2018 Status: F Source: COLTS NECK PROFILE (BMP) 6:50 AM REPOSITORY TYPE CODE TESTS RESULT OUT OF [...] GAP 6 Performed By: #### L500.2500 #### [facility] [address] [place], [address] BASIC METABOLIC Collected: 08/17/2018 Status: F Source: MARK PROFILE ([facility]) 6:17 AM REPOSITORY TYPE CODE TESTS RESULT OUT OF [...] GAP 8 Performed By: #### L500.2500 #### [facility] [address] [place], [address] CREATININE, URINE Collected: 08/16/2018 Status: F Source: COLTS NECK (RANDOM) 8:15 PM REPOSITORY Order Comment: Has pt arrived? Y TYPE CODE TESTS RESULT OUT OF RANGE REFERENCE UNITS LAB L501.1200 NO RANGE EST. mg/dL Normal UR CREAT 84.20 Performed By: #### L501.1200 #### [facility] [address] [place], [address] URINE SODIUM Collected: 08/16/2018 Status: F Source: COLTS NECK 8:15 PM REPOSITORY Order Comment: Has pt arrived? Y TYPE CODE TESTS RESULT OUT OF RANGE REFERENCE UNITS LAB L501.5500 Not Establ. mmol/L Normal UR NA 53 Performed By: #### L501.5500 #### [facility] [address] [place], [address] CONSULTATION Observed: 08/16/2018 Status: F Source: MARK 10:56 AM REPOSITORY [facility] Medical Records Department [address] [place] [address] Consultation 08/15/18 1132 MR#: [id number] Acct: [id number] Name: DOUG CAST Rep #: [id number] : 1935 83 From: Bernardino Drake MD PCP: Vijay Mason MD Status: ADM IN [id number] Reason for Consult Date of Consultation: 08/15/18 [...] W/DIFF, AUTOMATED Collected: 08/16/2018 Status: F Source: COLTS NECK 7:08 AM REPOSITORY TYPE CODE TESTS RESULT OUT OF [...] LYMPHOPENIA NOTED. Performed By: #### L100.0100 #### [facility] [address] [place], [place], [address] COMPREHENSIVE METABOLIC Collected: 08/16/2018 Status: F Source: MARK LAST 7:08 AM REPOSITORY TYPE CODE TESTS RESULT OUT OF [...] 7 Performed By: #### L500.4050, L501.3620 #### [facility] [address] [place], [address] CPK TOTAL, CREATINE Collected: 08/16/2018 Status: F Source: MARK KINASE 7:08 AM REPOSITORY TYPE CODE TESTS RESULT OUT OF RANGE REFERENCE UNITS LAB L501.3620 39-308 U/L High CPK TOTAL 484 Performed By: #### L500.4050, L501.3620 #### [facility] [address] [place], [address] BRAIN/HEAD WITHOUT Observed: 08/16/2018 Status: F Source: MARK CONTRAST 12:00 AM REPOSITORY [facility] Imaging Services [address] [place] [address] Brain/Head without Contrast MR#: [id number] Acct: [id number] Name: DOUG CAST Rep #: [id number] : 1935 M 83 From: Boris Valderrama MD PCP: Vijay Mason MD Status: ADM IN Study: Brain/Head without Contrast Date of Exam: 08/16/18 Exam# [id number] Ordering Dr: Pablito Vela MD STUDY: CT [...] CC: Pablito Vela MD; Vijay Mason MD Application Security Consultant: Signed Observed: 08/15/2018 Status: F Source: MARK CULTURE, URINE 2:58 PM REPOSITORY Urine Culture Culture exhibits no growth. Performed By: #### M100.0650 #### [facility] [address] [facility] [place], [address] MRSA WOUND DNA BY Collected: 08/15/2018 Status: F Source: MARK PCR 10:45 AM REPOSITORY Order Comment: Order Date: 08/15/18 Specimen Source? Leg wound left TYPE CODE TESTS RESULT OUT OF RANGE REFERENCE UNITS LAB L8200.1100 Negative Normal MRSA Negative RESULT LAB L8200.1150 Negative High SA RESULT POSITIVE Performed By: #### L8200.1075 #### [facility] [address] [place], [address] CONSULTATION Observed: 08/15/2018 Status: F Source: MARK 10:36 AM REPOSITORY [facility] Medical Records Department [address] [place] [address] Consultation 08/15/18 1018 MR#: [id number] Acct: [id number] Name: DOUG CAST Rep #: [id number] : 1935 83 From: Zakia Meyer MD PCP: Vijay Mason MD Status: ADM IN Y Location: [place] [address] ADDENDUM by Zakia Meyer MD on 08/15/18 [...] back in 1999. Patient was brought to [facility] emergency room yesterday because he was [...] FEVER Allopurinol (Zyloprim) 300 mg PO DAILYCM ANDRE Last Admin: 08/15/18 09:35 Dose: Not Given Aspirin (Ecotrin) 81 mg PO DAILYCM [facility] Last Admin: 08/15/18 09:35 Dose: Not Given Ergocalciferol (Vitamin D) 50,000 unit PO BURGOS [facility] Finasteride (Proscar) 5 mg PO DAILY [facility] Last Admin: 08/15/18 09:36 Dose: Not Given Heparin Sodium (Porcine) (Heparin Na) 5,000 unit SC Q12 [facility] Last Admin: 08/15/18 09:49 Dose: 5,000 unit Hydralazine HCl (Apresoline Iv) 5 mg IV Q4H PRN PRN PRN Reason: SBP > 160 Piperacillin Sod/Tazobactam Sod (Zosyn) 3.375 gm in 50 mls @ 12.5 mls/hr IV Q12 [facility] Last Admin: 08/15/18 09:48 Dose: 12.5 mls/hr Vancomycin IV Pharmacy to Dose (1,000 ea/ Sodium Chloride) 500 mls @ 250 mls/hr IV X1 PRN; Protocol Sodium Chloride () 1,000 mls @ 100 mls/hr IV .Q10H [facility] Stop: 08/15/18 10:29 Last Admin: 08/15/18 01:17 Dose: 100 mls/hr Sodium Chloride () 1,000 mls @ 999 mls/hr IV .Q1H1M ONE Stop: 08/15/18 10:37 Last Admin: 08/15/18 09:52 Dose: 999 mls/hr Sodium Chloride () 1,000 mls @ 125 mls/hr IV .Q8H [facility] Last Admin: 08/15/18 09:53 Dose: 125 mls/hr Labetalol HCl (Trandate) 200 mg PO BID [facility] Last Admin: 08/15/18 09:36 Dose: Not Given Magnesium Hydroxide (Milk Of Magnesia) 30 ml PO DAILY PRN PRN Reason: Constipation Nutritional Formula (Lactose Free) (Ensure Enlive) 120 ml PO 4X/DAY [facility] Last Admin: 08/15/18 09:36 Dose: Not Given Ondansetron HCl (Zofran) 4 mg IV Q8H PRN PRN PRN Reason: NAUSEA Pravastatin Sodium (Pravachol) 40 mg PO QHS [facility] Sodium Chloride () 5 - 30 ml [...] care with Dr. Vela. Zakia Meyer MD [phone] 08/15/18 1032 <Electronically signed by Zakia Meyer MD> Date Zakia Meyer MD Cosigner Signature (if applicable): Date CC: Zakia Meyer MD; Bernardino Drake MD; Vijay Mason MD Signed KIDNEY AND BLADDER Observed: 08/15/2018 Status: F Source: MARK 10:33 AM REPOSITORY [facility] Imaging Services [address] [place] [address] Kidney and Bladder MR#: [id number] Acct: [id number] Name: DOUG CAST Rep #: [id number] : 1935 M 83 From: Dionte Castillo DO PCP: Vijay Mason MD Status: ADM IN Study: Kidney and Bladder Date of Exam: 08/15/18 Exam# [id number] Ordering Dr: Zakia Meyer MD STUDY: RENAL [...] Dionte Castillo DO at 16:08 EDT Tel [phone], Service support , CC: Zakia Meyer MD; Vijay Mason MD Application Security Consultant: Signed AMMONIA Collected: 08/15/2018 Status: F Source: MARK 9:38 AM REPOSITORY TYPE CODE TESTS RESULT OUT OF RANGE REFERENCE UNITS LAB L503.5510 11-32 umol/L Normal AMMONIA 18.0 Performed By: #### L503.5510 #### [facility] [address] [place], [address] BASIC METABOLIC Collected: 08/15/2018 Status: F Source: MARK PROFILE (BMP) 5:20 AM REPOSITORY TYPE CODE TESTS RESULT OUT OF [...] 9 Performed By: #### L500.2500, L501.3620 #### [facility] [address] [place], [address] CPK TOTAL, CREATINE Collected: 08/15/2018 Status: F Source: COLTS NECK KINASE 5:20 AM REPOSITORY TYPE CODE TESTS RESULT OUT OF RANGE REFERENCE UNITS LAB L501.3620 39-308 U/L High CPK TOTAL 890 Performed By: #### L500.2500, L501.3620 #### [facility] [address] [place], [address] LACTIC ACID Collected: 08/15/2018 Status: F Source: MARK 1:33 AM REPOSITORY TYPE CODE TESTS RESULT OUT OF REFERENCE UNITS RANGE LAB L503.6005 0.4-2.0 mmol/L High LACTIC ACID 2.3 Result Comment: Critical Result(s) Called at: 02:27:05 08/15/2018 by: Cecilia Wyatt Performed By: #### L503.6005 #### [facility] [address] [place], [address] Observed: 08/15/2018 Status: F Source: MARK CULTURE, BLOOD (WB) 1:23 AM REPOSITORY BC No growth in 5 days. Performed By: #### M200.1000 #### [facility] [address] [place], [address] HISTORY AND PHYSICAL Observed: 08/15/2018 Status: F Source: MARK EXAM 1:08 AM REPOSITORY [facility] Medical Records Department [address] [place] [address] History and Physical 08/14/182216 MR#: [id number] Acct: [id number] Name: DOUG CAST Rep #: [id number] : 1935 83 From: Chase Zavala MD PCP: Vijay Mason MD Status: ADM IN Location: [place] [address]1 ADDENDUM by Chase Zavala MD on 08/15/18 at 0108 Code Visit Elevated troponin patient had elevated troponin at the ED. ED doctor reports consult cardiology. 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 Code Visit Inpatient E AND M: 30818 Init Hosp L3 08/15/18 0037 <Electronically signed by Chase Zavala MD> Date Chase Zavala MD Cosigner Signature: Date (if applicable) CC: Chase Zavala MD; Vijay Mason MD Signed BASIC METABOLIC Collected: 08/15/2018 Status: F Source: MARK PROFILE (BMP) 12:25 AM REPOSITORY TYPE CODE TESTS RESULT OUT OF [...] GAP 11 Performed By: #### L500.2500 #### [facility] [address] [place], [address] EMERGENCY DEPARTMENT Observed: 08/14/2018 Status: F Source: COLTS NECK SUMMARY 11:19 PM REPOSITORY [facility] Medical Records Department [address] [place] [address] Emergency Department Summary 08/14/18 2108 MR#: [id number] Acct: [id number] Name: DOUG CAST Rep #: [id number] : 1935 83 From: Ata Heath MD [...] 30 minutes. This note was generated with xTurion dictation software. It may contain incorrect words, [...] problems, contact your Primary Care Provider. Call [employer] [facility] ([phone]) or report to the closest Emergency Room. Call 911 if necessary. 08/14/18 2319 <Electronically signed by Ata Heath MD> Date Ata Heath MD Cosigner Signature (If Indicated): Date CC: Vijay Mason MD LACTIC ACID Collected: 08/14/2018 Status: F Source: COLTS NECK 9:15 PM REPOSITORY Order Comment: Yes/No query for Sepsis Lactate Rule Y TYPE CODE TESTS RESULT OUT OF REFERENCE UNITS RANGE LAB L503.6005 0.4-2.0 mmol/L High LACTIC ACID 2.1 Result Comment: CALLED [facility] WITH CRITICAL [facility] BY [facility] 08-14-18 AT 2154PM READ BACK BY SAME Performed By: #### L503.6005 #### [facility] [address] [place], [address] Observed: 08/14/2018 Status: F Source: MARK CULTURE, DEEP WOUND 8:05 PM REPOSITORY Order Date: 08/14/18 Gram Stain Gram [...] <=1 S (NF) indicates non-formulary drug at [facility]. Approval by Infectious Disease Specialist required before non-formulary drugs may be ordered and/or dispensed. Cult, Anaerobic No anaerobic bacteria isolated. Performed By: #### M100.1500 #### [facility] [address] [place], [address] BRAIN/HEAD WITHOUT Observed: 08/14/2018 Status: F Source: MARK CONTRAST 6:54 PM REPOSITORY [facility] Imaging Services [address] [place] [address] Brain/Head without Contrast MR#: [id number] Acct: [id number] Name: DOUG CAST Brittani Rep #: [id number] : 1935 M 83 From: Dionte Castillo DO PCP: Vijay Mason MD Status: REG ER Study: Brain/Head without Contrast Date of Exam: 08/14/18 Exam# [id number] Ordering Dr: Ata Heath MD STUDY: CT [...] Dionte Castillo DO at 20:58 EDT Tel [phone], Service support , CC: Ata Heath MD; Vijay Mason MD Application Security Consultant: Signed SPINE CERVICAL Observed: 08/14/2018 Status: F Source: COLTS NECK WITHOUT CONTRAS 6:54 PM REPOSITORY [facility] Imaging Services [address] [place] [address] Spine Cervical without Contras MR#: [id number] Acct: [id number] Name: DOUG CAST Rep #: [id number] : 1935 M 83 From: Dionte Castillo DO PCP: Vijay Mason MD Status: REG ER Study: Spine Cervical without Contras Date of Exam: 08/14/18 Exam# [id number] Ordering Dr: Ata Heath MD STUDY: CT [...] Dionte Castillo DO at 21:04 EDT Tel [phone], Service support , CC: Ata Heath MD; Vijay Mason MD Application Security Consultant: Signed CHEST 1 VIEW Observed: 08/14/2018 Status: F Source: MARK (PORTABLE) 6:54 PM [facility] REPOSITORY [facility] Imaging Services [address] [place] [address] Chest 1 View (Portable) MR#: [id number] Acct: [id number] Name: DOUG CAST Rep #: [id number] : 1935 M 83 From: Dionte Castillo DO PCP: Vijay Mason MD Status: REG ER Study: Chest 1 View (Portable) Date of Exam: 08/14/18 Exam# [id number] Ordering Dr: Ata Heath MD STUDY: X-RAY [...] Dionte Castillo DO at 21:05 EDT Tel [phone], Service support , CC: Ata Heath MD; Vijay Mason MD Application Security Consultant: Signed LUMBAR SPINE 2 OR 3 Observed: 08/14/2018 Status: F Source: MARK VIEWS 6:54 PM [facility] REPOSITORY [facility] Imaging Services [address] [place] [address] Lumbar Spine 2 or 3 Views MR#: [id number] Acct: [id number] Name: DOUG CAST Rep #: [id number] : 1935 M 83 From: Dionte Castillo DO PCP: Vijay Mason MD Status: REG ER Study: Lumbar Spine 2 or 3 Views Date of Exam: 08/14/18 Exam# [id number] Ordering Dr: Ata Heath MD STUDY: X-RAY [...] Dionte Castillo DO at 21:06 EDT Tel [phone], Service support , CC: Ata Heath MD; Vijay Mason MD Application Security Consultant: Signed CBC W/DIFF, AUTOMATED Collected: 08/14/2018 Status: F Source: MARK 6:45 PM REPOSITORY TYPE CODE TESTS RESULT OUT OF [...] MORPH C+C Performed By: #### L100.0100 #### [facility] [place], [address] BASIC METABOLIC Collected: 08/14/2018 Status: C Source: MARK PROFILE (BMP) 6:45 PM REPOSITORY TYPE CODE TESTS RESULT OUT OF [...] 12 Performed By: #### L500.2500, L501.4010 #### [facility] [address] [place], [address] TROPONIN-I Collected: 08/14/2018 Status: F Source: COLTS NECK 6:45 PM REPOSITORY TYPE CODE TESTS RESULT OUT OF RANGE REFERENCE UNITS LAB L501.4010 <0.045 ng/mL High 0.230 TROPONIN-I Result Comment: TROPONIN-I EXPECTED VALUES <0.045 Negative 0.045 - 0.590 Consistent with Cardiac Damage > OR = 0.600 Critical Value Not every elevated troponin is indicative of UT. These values should be used with clinical judgement in examining the patient's clinical picture for diagnosis. To establish a diagnosis of UT versus myocardial injury, there must be a demonstrated rise and/or fall in the troponin values, in addition to ischemic symptoms, EKG changes, new regional wall motion abnormality, and/or angiographical evidence. PLEASE NOTE: REFERENCE RANGES EDITED 18 Performed By: #### L500.2500, L501.4010 #### [facility] [address] [place], [address] CPK TOTAL, CREATINE Collected: 08/14/2018 Status: F Source: MARK KINASE 6:45 PM REPOSITORY TYPE CODE TESTS RESULT OUT OF RANGE REFERENCE UNITS LAB L501.3620 39-308 U/L High CPK TOTAL 2125 Result Comment: Moderate Hemolysis, Result may be falsely increased. Performed By: #### L501.3620 #### [facility] [address] [facility] [place], [address] URINALYSIS, COMPLETE Collected: 08/14/2018 Status: F Source: MARK 5:35 PM REPOSITORY Order Comment: Order Date: 08/14/18 COLOR [...] 1+ URATE Performed By: #### L400.0001 #### [facility] [address] [place], [address] CREATININE, URINE Collected: 08/14/2018 Status: F Source: COLTS NECK 5:35 PM REPOSITORY Order Comment: Comments: Sent from ED TYPE CODE TESTS RESULT OUT OF RANGE REFERENCE UNITS LAB L502.0300 NO RANGE EST. mg/dL Normal URINE 253.00 CREAT Performed By: #### L502.0300 #### [facility] [address] [place] [place], [address] URINE SODIUM Collected: 08/14/2018 Status: F Source: COLTS NECK 5:35 PM REPOSITORY Order Comment: Comments: Sent from ED TYPE CODE TESTS RESULT OUT OF RANGE REFERENCE UNITS LAB L501.5500 Not Establ. mmol/L Normal UR NA 55 Performed By: #### L501.5500 #### [facility] [address] [place] [place], [address] PROGRESS Observed: 07/31/2018 Status: COMPLETED Source: [place] 11:32 AM [facility] [place] REPOSITORY HNO ID: [id number] Author: Julisa Paulson (Maria Isabel) MARIA ISABEL Tran Service: (none) Author Type: LICENSED NURSE Type: Progress Notes Filed: 07/31/2018 1:51 PM Note Text: 82 year old male here for INACTIVATED INFLUENZA VACCINE. 4430-0198 Season Patient is identified by name and date of : Yes [] CONTRAINDICATIONS color enhanced section Age less than 6 months? No Allergy to eggs, chicken, chicken feathers, or chicken dander? No Allergy to thimerosal (a preservative) or formaldehyde, gelatin? No History of severe reaction to any vaccine component or a previous dose of influenza vaccination? 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 Yes See immunization activity in [facility] for details of immunizations adminstered today. Patient age: [age] year old For The 4126-9830 Flu Season 6-35 months old: Fluzone 0.25 [...] time. PROGRESS Observed: 07/31/2018 Status: COMPLETED Source: [place] 11:13 AM [facility] REPOSITORY O ID: [id number] Author: Rah Perez Service: (none) Author Type: [...] No jaundice or rash. No petechiae. NEUROLOGIC: senior clinical consultant II-XII are grossly intact. No focal motor weakness. MUSCULOSKELETAL: No muscle wasting. ASSESSMENT/PLAN: (D64.9) Anemia, unspecified type (primary encounter diagnosis) (N18.3) CKD (chronic kidney disease) stage 3, GFR 30-59 ml/min Assessment: -Tolerating and benefiting from Aranesp. -Maintaining appropriate iron levels. Plan: -Will continue every other week CBC/possible Aranesp. -Flu shot today. DO OLAMIDE MendozaOSTER ABS GR + CBC Collected: 07/31/2018 Status: F Source: [place] 10:52 AM [facility] [place] REPOSITORY TYPE CODE TESTS RESULT OUT OF REFERENCE UNITS RANGE LAB WWBC 3.70-11.00 k/uL [place] WBC 4.25 LAB WRBC 4.20-6.00 m/uL [place] RBC 3.55 LAB WHGB 13.0-17.0 g/dL [place] Hemoglobin 10.3 LAB WHCT 39.0-51.0 % Low [place] Hematocrit 34.5 LAB WMCV 80.0-100.0 fL [place] MCV 97.2 LAB WMCH 26.0-34.0 pg [place] MCH 29.0 LAB WMCHC 30.5-36.0 g/dL Low [place] MCHC 29.9 LAB WRDW 11.5-15.0 % [place] High RDW 15.2 LAB WPLT 150-400 k/uL [place] Platelet Cnt 176 LAB WMPV 9.0-12.7 fL [place] MPV 10.5 Result Comment: Test performed at: [facility], [address] [place] [address]. LAB ABGRAN 1.45-7.50 k/uL Absol Gran 3.28 Count [place] ISTAT BMP Collected: 07/31/2018 Status: F Source: [place] 10:52 AM [facility] REPOSITORY TYPE CODE TESTS [...] AND TIBC Collected: 07/31/2018 Status: F Source: [place] 10:52 AM [facility] REPOSITORY TYPE CODE TESTS RESULT OUT OF REFERENCE UNITS RANGE LAB IRN 41-186 ug/dL [place] Iron 31 LAB TIBC 232-386 ug/dL Low TIBC 182 LAB SAT 15-57 % Transferrin Saturatn 17 Performed By: #### IRON, FERR #### [facility] [address] [place] [address] FERRITIN Collected: 07/31/2018 Status: F Source: [place] 10:52 AM [facility] REPOSITORY TYPE CODE TESTS RESULT OUT OF REFERENCE UNITS RANGE LAB FERR 30.3-565.7 ng/mL Ferritin 448.4 Performed By: #### IRON, FERR #### [facility] [address] [place], [place] [address] CNOVSP Observed: 07/31/2018 Status: COMPLETED Source: [place] 9:50 AM [facility] REPOSITORY Visit (SP) Office (HEMAWS) DOUG CAST ([id number]) 1935 M CHT Date Time Provider Department 07/31/18 9:50 AM [...] No jaundice or rash. No petechiae. NEUROLOGIC: senior clinical consultant II-XII are grossly intact. No focal motor weakness. MUSCULOSKELETAL: No muscle wasting. ASSESSMENT/PLAN: (D64.9) Anemia, unspecified type (primary encounter diagnosis) (N18.3) CKD (chronic kidney disease) stage 3, GFR 30-59 ml/min Assessment: -Tolerating and benefiting from Aranesp. -Maintaining appropriate iron levels. Plan: -Will continue every other week CBC/possible Aranesp. -Flu shot today. Rah Perez, DO Julisa Tran LPN, MARIA ISABEL 07/31/2018 11:33 AM Signed Influenza virus vaccine given as ordered. Right deltiod MARIA ISABEL Bonilla LPN, MARIA ISABEL 07/31/2018 1:51 PM Signed 82 year old male here for INACTIVATED INFLUENZA VACCINE. 8483-3295 Season Patient is identified by name and date of : Yes [] CONTRAINDICATIONS color enhanced section Age less than 6 months? No Allergy to eggs, chicken, chicken feathers, or chicken dander? No Allergy to thimerosal (a preservative) or formaldehyde, gelatin? No History of severe reaction to any vaccine component or a previous dose of influenza vaccination? 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 Yes See immunization activity in [facility] for details of immunizations adminstered today. Patient age: [age] year old For The 5327-0558 Flu Season 6-35 months old: Fluzone 0.25 [...] one months time. Referring Provider: RAH PEREZ [[id number]] Allergies As of Date: 07/31/2018 (No Known Allergies) Date Reviewed: 07/31/2018 Reviewed by: Julisa Paulson (Intake Assessor) MARIA ISABEL Tran - Fully Assessed Reason [...] (moder*INVALID FOR* Visit Notes: >> Julisa Paulson (Intake Assessor) Marc, IC DESIGN ENGINEER SunJul 31, 2018 11:05 AM Status: Signed Est pt. Discuss recent lab results Julisa Tran, IC DESIGN ENGINEER >> Julisa Paulson (Intake Assessor) Marc, IC DESIGN ENGINEER SunJul 31, 2018 11:32 AM Status: Signed Influenza virus vaccine given as ordered. Right deltiod Julisa Tran LPN Encounter Status:Closed by RAH PEREZ DO on 07/31/18 [place] ABS GR + CBC Collected: 07/17/2018 Status: F Source: [place] 11:19 AM [facility] REPOSITORY TYPE CODE TESTS RESULT OUT OF REFERENCE UNITS RANGE LAB WWBC 3.70-11.00 k/uL [place] WBC 5.31 LAB WRBC 4.20-6.00 m/uL Low [place] RBC 3.35 LAB WHGB 13.0-17.0 g/dL Low [place] Hemoglobin 9.7 LAB WHCT 39.0-51.0 % Low [place] Hematocrit 31.6 LAB WMCV 80.0-100.0 fL [place] MCV 94.3 LAB WMCH 26.0-34.0 pg [place] MCH 29.0 LAB WMCHC 30.5-36.0 g/dL [place] MCHC 30.7 LAB WRDW 11.5-15.0 % [place] RDW 13.7 LAB WPLT 150-400 k/uL [place] Platelet Cnt 176 LAB WMPV 9.0-12.7 fL [place] MPV 10.1 Result Comment: Test performed at: [facility] [place], [address] [place] [address]. LAB ABGRAN 1.45-7.50 k/uL Absol Gran 4.32 Count [place] ABS GR + CBC Collected: 07/03/2018 Status: F Source: [place] 12:00 PM [facility] REPOSITORY TYPE CODE TESTS RESULT OUT OF REFERENCE UNITS RANGE LAB WWBC 3.70-11.00 k/uL [place] WBC 6.20 LAB WRBC 4.20-6.00 m/uL Low [place] RBC 3.49 LAB WHGB 13.0-17.0 g/dL Low [place] Hemoglobin 10.1 LAB WHCT 39.0-51.0 % Low [place] Hematocrit 33.3 LAB WMCV 80.0-100.0 fL [place] MCV 95.4 LAB WMCH 26.0-34.0 pg [place] MCH 28.9 LAB WMCHC 30.5-36.0 g/dL Low [place] MCHC 30.3 LAB WRDW 11.5-15.0 % [place] RDW 13.4 LAB WPLT 150-400 k/uL [place] Platelet Cnt 166 LAB WMPV 9.0-12.7 fL [place] MPV 10.6 Result Comment: Test performed at: [address] [place] [address]. LAB ABGRAN 1.45-7.50 k/uL Absol Gran 5.24 Count [place] ABS GR + CBC Collected: 06/19/2018 Status: F Source: [place] 10:49 AM [facility] REPOSITORY TYPE CODE TESTS RESULT OUT OF REFERENCE UNITS RANGE LAB WWBC 3.70-11.00 k/uL [place] WBC 5.14 LAB WRBC 4.20-6.00 m/uL [place] RBC 3.77 LAB WHGB 13.0-17.0 g/dL Low [place] Hemoglobin 11.0 LAB WHCT 39.0-51.0 % Low [place] Hematocrit 35.8 LAB WMCV 80.0-100.0 fL [place] MCV 95.0 LAB WMCH 26.0-34.0 pg [place] MCH 29.2 LAB WMCHC 30.5-36.0 g/dL [place] MCHC 30.7 LAB WRDW 11.5-15.0 % [place] RDW 14.4 LAB WPLT 150-400 k/uL [place] Platelet Cnt 168 LAB WMPV 9.0-12.7 fL [place] MPV 10.4 Result Comment: Test performed at: [address] [place] [address]. LAB ABGRAN 1.45-7.50 k/uL Absol Gran 4.29 Count [place] ABS GR + CBC Collected: 06/05/2018 Status: F Source: [place] 11:00 AM [facility] REPOSITORY TYPE CODE TESTS RESULT OUT OF REFERENCE UNITS RANGE LAB WWBC 3.70-11.00 k/uL [place] WBC 3.72 LAB WRBC 4.20-6.00 m/uL Low [place] RBC 3.23 LAB WHGB 13.0-17.0 g/dL Low [place] Hemoglobin 9.5 LAB WHCT 39.0-51.0 % Low [place] Hematocrit 30.9 LAB WMCV 80.0-100.0 fL [place] MCV 95.7 LAB WMCH 26.0-34.0 pg [place] MCH 29.4 LAB WMCHC 30.5-36.0 g/dL [place] MCHC 30.7 LAB WRDW 11.5-15.0 % [place] RDW 14.0 LAB WPLT 150-400 k/uL Low [place] Platelet Cnt 119 LAB WMPV 9.0-12.7 fL [place] MPV 10.7 LAB ABGRAN 1.45-7.50 k/uL Absol Gran Count 2.76 PROGRESS Observed: 05/25/2018 Status: COMPLETED Source: [place] 3:00 PM [facility] REPOSITORY HNO ID: [id number] Author: Angel Medrano Service: (none) Author Type: [...] of these are being followed here in [place]. At this point I am most concerned [...] with more than 50% of the total xlgu-hd-njul time of the visit in counseling / coordination of care. COLTS NECK ABS GR + CBC Collected: 05/22/2018 Status: F Source: [place] 11:07 AM [facility] [place] REPOSITORY TYPE CODE TESTS RESULT OUT OF REFERENCE UNITS RANGE LAB WWBC 3.70-11.00 k/uL [place] WBC 4.27 LAB WRBC 4.20-6.00 m/uL [place] RBC 3.45 LAB WHGB 13.0-17.0 g/dL Low [place] Hemoglobin 10.2 LAB WHCT 39.0-51.0 % Low [place] Hematocrit 32.8 LAB WMCV 80.0-100.0 fL [place] MCV 95.1 LAB WMCH 26.0-34.0 pg [place] MCH 29.6 LAB WMCHC 30.5-36.0 g/dL [place] MCHC 31.1 LAB WRDW 11.5-15.0 % [place] RDW 14.3 LAB WPLT 150-400 k/uL [place] Platelet Cnt 116 LAB WMPV 9.0-12.7 fL [place] MPV 11.0 Result Comment: Test performed at: [facility] [place], [address] [place] [address]. LAB ABGRAN 1.45-7.50 k/uL Absol Gran 3.30 Count CNOV Observed: 05/17/2018 Status: COMPLETED Source: [place] 9:15 AM [facility] REPOSITORY Office Visit (AGMIL) DOUG CAST ([id number]) 1935 M [facility] Date Time Provider Department 05/17/18 9:15 AM ANGEL MEDRANO AGMIKarine During your visit today, we recorded the [...] of these are being followed here in [place]. At this point I am most concerned [...] with more than 50% of the total tsmz-xn-yqfx time of the visit in counseling / coordination of care. Referring Provider: VIJAY MASON [[id number]] Allergies As of Date: 05/17/2018 (No Known Allergies) Date Reviewed: 05/17/2018 Reviewed by: Angel Medrano - Fully Assessed Reason for Visit: Stenosis [1326] Cmt: oDug is here for follow up carotid stenosis. 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] Other Visit Diagnosis:H/O carotid endarterectomy [Z98.890] Order(s):US CAROTID ARTERIES [facility] [[id number]] Order #: [id number] FUTURE Prescriptions as of 05/17/2018 Sig: FINASTERIDE [...] CAROTID DUPLEX Observed: 05/08/2018 Status: F Source: COLTS NECK ULTRASOUND 11:14 AM REPOSITORY [facility] Cardiovascular Services [address] [place] [address] Carotid Duplex Ultrasound 05/07/18 1001 MR#: [id number] Acct: [id number] Name: DOUG CAST Rep #: [id number] : 1935 82 From: Karthik Holloway MD Attending Dr: ANGEL MEDRANO MD Status: REG CLI Ordering Dr: Angel Medrano MD Date: 05/07/18 Location: [facility] Sex: M C Admitted: Reason For Study: [...] the left vertebral artery. Procedure Carotid Duplex 82650. Exam performed in department. Interpretation Summary Mild (<50%) stenosis right extracranial internal carotid. Mild (<50%) stenosis left extracranial internal carotid. Flow within the vertebral arteries is antegrade bilaterally. Ordering Physician: ANGEL MEDRANO Referring Physician: Vijay Mason Performed By: Kerri Alvarez RVT 05/08/18 1113 Date Karthik Holloway MD CC: ANGEL MEDRANO MD; Vijay Mason MD Date Dictated: 05/07/18 1001 Date Transcribed: 05/08/18 1113 Application Security Consultant: Monse RASHEED GR + CBC Collected: 05/08/2018 Status: F Source: [place] 11:11 AM [facility] REPOSITORY TYPE CODE TESTS RESULT OUT OF REFERENCE UNITS RANGE LAB WWBC 3.70-11.00 k/uL Low [place] WBC 3.38 LAB WRBC 4.20-6.00 m/uL Low [place] RBC 3.37 LAB WHGB 13.0-17.0 g/dL Low [place] Hemoglobin 10.0 LAB WHCT 39.0-51.0 % Low [place] Hematocrit 31.9 LAB WMCV 80.0-100.0 fL [place] MCV 94.7 LAB WMCH 26.0-34.0 pg [place] MCH 29.7 LAB WMCHC 30.5-36.0 g/dL [place] MCHC 31.3 LAB WRDW 11.5-15.0 % [place] RDW 13.5 LAB WPLT 150-400 k/uL Low [place] Platelet Cnt 114 LAB WMPV 9.0-12.7 fL [place] MPV 10.5 Result Comment: Test performed at: [facility], [address] [place] [address] Rd[address] [place] [address]. LAB ABGRAN 1.45-7.50 k/uL Absol Gran 2.64 Count IRON AND TIBC Collected: 04/24/2018 Status: F Source: [place] 11:17 AM [facility] REPOSITORY TYPE CODE TESTS RESULT OUT OF REFERENCE UNITS RANGE LAB IRN 41-186 ug/dL [place] 34 LAB TIBC 232-386 ug/dL Low TIBC 168 LAB SAT 15-57 % Transferrin Saturatn 20 Performed By: #### IRON, FERR #### [facility] [address] [place] [address] FERRITIN Collected: 04/24/2018 Status: F Source: [place] 11:17 AM [facility] REPOSITORY TYPE CODE TESTS RESULT OUT OF REFERENCE UNITS RANGE LAB FERR 30.3-565.7 ng/mL Ferritin 348.0 Performed By: #### IRON, FERR #### [facility] [employer] [address] [place] [address] MRAK CBC AND DIFF Collected: 04/24/2018 Status: F Source: [place] 11:16 AM [facility] REPOSITORY TYPE CODE TESTS RESULT OUT OF REFERENCE UNITS RANGE LAB WWBC 3.70-11.00 k/uL Low [place] WBC 3.58 LAB WRBC 4.20-6.00 m/uL Low [place] RBC 3.43 LAB WHGB 13.0-17.0 g/dL Low [place] Hemoglobin 10.2 LAB WHCT 39.0-51.0 % Low [place] Hematocrit 32.8 LAB WMCV 80.0-100.0 fL [place] MCV 95.6 LAB WMCH 26.0-34.0 pg [place] MCH 29.7 LAB WMCHC 30.5-36.0 g/dL [place] MCHC 31.1 LAB WRDW 11.5-15.0 % [place] RDW 13.3 LAB WPLT 150-400 k/uL Low [place] Platelet Cnt 109 LAB WMPV 9.0-12.7 fL [place] MPV 10.9 Result Comment: Test performed at: [facility], [address] [place] [address]. LAB WNEUT % [place] Neut% 70.3 LAB WLYMP % [place] Lymp% 15.1 LAB WMONOC % [place] Bryan% 8.4 LAB WEOS % [place] Eos% 5.9 LAB WBASO % [place] Baso% 0.3 LAB WANEUT 1.45-7.5 k/uL 0 [place] Abs Neut 2.52 LAB WALYMP 1.00-4.0 k/uL Low 0 [place] Abs Lymp 0.54 LAB WAMONO <0.87 k/uL [place] Abs Bryan 0.30 LAB WAEOS <0.46 k/uL [place] Abs Eos 0.21 LAB WABASO <0.11 k/uL [place] Abs Baso <0.03 DOWNTIME REPORT Observed: 04/18/2018 Status: F Source: COLTS NECK 1:15 PM REPOSITORY [facility] Medical Records Department [address] [place] [address] Downtime Report MR#: [id number] Acct: [id number] Name: DOUG CAST Rep #: [id number] : 1935 82 From: Harpreet Ma PCP: Status: REG CLI This patient was seen during an EMR downtime April 01, 2018 - April 08, 2018. This patient may have a combination of paper and electronic documentation or all paper documentation. All documentation is viewable within the e-chart portion of [employer] for each patient visit. COLTS NECK ABS GR + CBC Collected: 04/10/2018 Status: F Source: [place] 10:52 AM [facility] REPOSITORY TYPE CODE TESTS RESULT OUT OF REFERENCE UNITS RANGE LAB WWBC 3.70-11.00 k/uL [place] WBC 3.93 LAB WRBC 4.20-6.00 m/uL Low [place] RBC 3.71 LAB WHGB 13.0-17.0 g/dL Low [place] Hemoglobin 11.0 LAB WHCT 39.0-51.0 % Low [place] Hematocrit 36.0 LAB WMCV 80.0-100.0 fL [place] MCV 97.0 LAB WMCH 26.0-34.0 pg [place] MCH 29.6 LAB WMCHC 30.5-36.0 g/dL [place] MCHC 30.6 LAB WRDW 11.5-15.0 % [place] RDW 13.2 LAB WPLT 150-400 k/uL [place] Platelet Cnt 111 LAB WMPV 9.0-12.7 fL [place] MPV 11.3 Result Comment: Test performed at: [facility], [address] [place] [address]. LAB ABGRAN 1.45-7.50 k/uL Absol Gran 2.93 Count Observed: 04/05/2018 Status: F Source: COLTS NECK CULTURE, DEEP WOUND 9:00 AM REPOSITORY RESULT(S) PREVIOUSLY REPORTED ON MANUAL REQUISITION [...] 160 R (NF) indicates non-formulary drug at [facility]. Approval by Infectious Disease Specialist required before non-formulary drugs may be ordered and/or dispensed. Cult, Anaerobic No anaerobic bacteria isolated. Performed By: #### M100.1500 #### [facility] [address] [place], [place], [address] COLTS NECK ABS GR + CBC Collected: 03/27/2018 Status: F Source: [place] 11:01 AM [facility] [place] REPOSITORY TYPE CODE TESTS RESULT OUT OF REFERENCE UNITS RANGE LAB WWBC 3.70-11.00 k/uL [place] WBC 4.88 LAB WRBC 4.20-6.00 m/uL Low [place] RBC 3.51 LAB WHGB 13.0-17.0 g/dL Low [place] Hemoglobin 10.5 LAB WHCT 39.0-51.0 % Low [place] Hematocrit 34.6 LAB WMCV 80.0-100.0 fL [place] MCV 98.6 LAB WMCH 26.0-34.0 pg [place] MCH 29.9 LAB WMCHC 30.5-36.0 g/dL Low [place] MCHC 30.3 LAB WRDW 11.5-15.0 % [place] RDW 13.3 LAB WPLT 150-400 k/uL Low [place] Platelet Cnt 138 LAB WMPV 9.0-12.7 fL [place] MPV 10.5 Result Comment: Test performed at: [facility], [address] [place] [address] Rd[address] [place] [address]. LAB ABGRAN 1.45-7.50 k/uL Absol Gran 4.02 Count Observed: 03/15/2018 Status: F Source: COLTS NECK CULTURE, DEEP WOUND 11:30 AM REPOSITORY Comments: LLE ULCER Gram Stain Gram [...] <=1 S (NF) indicates non-formulary drug at [facility]. Approval by Infectious Disease Specialist [...] <=0.5 S (NF) indicates non-formulary drug at [facility]. Approval by Infectious Disease Specialist required before non-formulary drugs may be ordered and/or dispensed. * CLSI guidelines does not recommend testing of cephalosporins. This interpretation is deduced from Beta-lactam/penicillin results. Cult, Anaerobic No anaerobic bacteria isolated. Performed By: #### M100.1500 #### [facility] [address] [place], [address] COLTS NECK ABS GR + CBC Collected: 03/13/2018 Status: F Source: [place] 11:13 AM [facility] REPOSITORY TYPE CODE TESTS RESULT OUT OF REFERENCE UNITS RANGE LAB WWBC 3.70-11.00 k/uL Low [place] WBC 3.24 LAB WRBC 4.20-6.00 m/uL Low [place] RBC 3.68 LAB WHGB 13.0-17.0 g/dL Low [place] Hemoglobin 11.0 LAB WHCT 39.0-51.0 % Low [place] Hematocrit 36.6 LAB WMCV 80.0-100.0 fL [place] MCV 99.5 LAB WMCH 26.0-34.0 pg [place] MCH 29.9 LAB WMCHC 30.5-36.0 g/dL Low [place] MCHC 30.1 LAB WRDW 11.5-15.0 % [place] RDW 15.0 LAB WPLT 150-400 k/uL Low [place] Platelet Cnt 102 LAB WMPV 9.0-12.7 fL [place] MPV 10.3 Result Comment: Test performed at: [facility], [address] [place] [address] Rd[address] [place] [address]. LAB ABGRAN 1.45-7.50 k/uL Absol Gran 2.45 Count BASIC METABOLIC Collected: 03/01/2018 Status: F Source: COLTS NECK PROFILE (BMP) 1:29 PM REPOSITORY TYPE CODE TESTS RESULT OUT OF [...] GAP 5 Performed By: #### L500.2500 #### [facility] [address] [place], [place], [address] VITAMIN D,25 HYDROXY Collected: 03/01/2018 Status: F Source: [place] 1:29 PM REPOSITORY TYPE CODE TESTS RESULT OUT OF RANGE REFERENCE UNITS LAB L506.1000 29.95-100.01 ng/mL Normal Vitamin D 76.4 25-OH Result Comment: Vitamin D 25(OH) Status Range Deficiency <20 ng/mL (50nmol/L) Insuffciency 20 - 30 ng/mL (50 - 75 nmol/L) Sufficiency 30 - 100 ng/mL (75 - 250 nmol/L) Toxicity >100 ng/mL (>250 nmol/L) Performed By: #### L506.1000 #### [facility] [address] [place], [address] CBC W/DIFF, AUTOMATED Collected: 03/01/2018 Status: F Source: COLTS NECK 1:29 PM REPOSITORY TYPE CODE TESTS RESULT OUT OF [...] MOD DEC Performed By: #### L100.0100 #### [facility] [address] [place], [address] COLTS NECK ABS GR + CBC Collected: 02/27/2018 Status: F Source: [place] 10:50 AM [facility] REPOSITORY TYPE CODE TESTS RESULT OUT OF REFERENCE UNITS RANGE LAB WWBC 3.70-11.00 k/uL [place] WBC 3.97 LAB WRBC 4.20-6.00 m/uL Low [place] RBC 3.08 LAB WHGB 13.0-17.0 g/dL Low [place] Hemoglobin 9.3 LAB WHCT 39.0-51.0 % Low [place] Hematocrit 30.7 LAB WMCV 80.0-100.0 fL [place] MCV 99.7 LAB WMCH 26.0-34.0 pg [place] MCH 30.2 LAB WMCHC 30.5-36.0 g/dL Low [place] MCHC 30.3 LAB WRDW 11.5-15.0 % [place] RDW 14.5 LAB WPLT 150-400 k/uL Low [place] Platelet Cnt 100 LAB WMPV 9.0-12.7 fL [place] MPV 11.3 Result Comment: Test performed at: [address] [place] [address]. LAB ABGRAN 1.45-7.50 k/uL Absol Gran 2.71 Count [place] ABS GR + CBC Collected: 02/13/2018 Status: F Source: [place] 11:50 AM [facility] REPOSITORY TYPE CODE TESTS RESULT OUT OF REFERENCE UNITS RANGE LAB WWBC 3.70-11.00 k/uL Low [place] WBC 3.53 LAB WRBC 4.20-6.00 m/uL Low [place] RBC 3.34 LAB WHGB 13.0-17.0 g/dL Low [place] Hemoglobin 10.0 LAB WHCT 39.0-51.0 % Low [place] Hematocrit 32.9 LAB WMCV 80.0-100.0 fL [place] MCV 98.5 LAB WMCH 26.0-34.0 pg [place] MCH 29.9 LAB WMCHC 30.5-36.0 g/dL Low [place] MCHC 30.4 LAB WRDW 11.5-15.0 % [place] RDW 14.4 LAB WPLT 150-400 k/uL Low [place] Platelet Cnt 103 LAB WMPV 9.0-12.7 fL [place] MPV 11.8 Result Comment: Test performed at: [address] [place] [address]. LAB ABGRAN 1.45-7.50 k/uL Absol Gran 2.83 Count PROGRESS Observed: 01/30/2018 Status: COMPLETED Source: [place] 10:57 AM [facility] REPOSITORY HNO ID: [id number] Author: Rah Perez Service: (none) Author Type: [...] No jaundice or rash. No petechiae. NEUROLOGIC: senior clinical consultant II-XII are grossly intact. No focal motor [...] + CBC Collected: 01/30/2018 Status: F Source: [place] 10:38 AM [facility] REPOSITORY TYPE CODE TESTS RESULT OUT OF REFERENCE UNITS RANGE LAB WWBC 3.70-11.00 k/uL [place] WBC 6.30 LAB WRBC 4.20-6.00 m/uL Low [place] RBC 3.55 LAB WHGB 13.0-17.0 g/dL [place] Hemoglobin 10.5 LAB WHCT 39.0-51.0 % Low [place] Hematocrit 34.9 LAB WMCV 80.0-100.0 fL [place] MCV 98.3 LAB WMCH 26.0-34.0 pg [place] MCH 29.6 LAB WMCHC 30.5-36.0 g/dL Low [place] MCHC 30.1 LAB WRDW 11.5-15.0 % [place] RDW 14.6 LAB WPLT 150-400 k/uL [place] Platelet Cnt 195 LAB WMPV 9.0-12.7 fL [place] MPV 10.0 Result Comment: Test performed at: [facility] [place], [address] [place] [address]. LAB ABGRAN 1.45-7.50 k/uL Absol Gran 5.23 Count [place] ISTAT BMP Collected: 01/30/2018 Status: F Source: [place] 10:38 AM [facility] REPOSITORY TYPE CODE TESTS RESULT OUT OF [...] GFR. CNOVSP Observed: 01/30/2018 Status: COMPLETED Source: [place] 10:30 AM [facility] REPOSITORY Visit (SP) Office (HEMAWS) DOUG CAST ([id number]) 1935 M [facility] Date Time Provider Department 01/30/18 10:30 AM RAH PEREZ During your visit today, we recorded the following information about you: Julisa Tran LPN, MARIA ISABEL 01/30/2018 10:59 AM Signed Est pt, discuss recent lab results 6 month f/u MARIA ISABEL Bonilla DO 01/30/2018 11:06 AM Signed Diagnosis: 1) [...] No jaundice or rash. No petechiae. NEUROLOGIC: senior clinical consultant II-XII are grossly intact. No focal motor [...] Rah Perez DO Referring Provider: RAH PEREZ [[id number]] Allergies As of Date: 01/30/2018 (No Known [...] 3 (moder*INVALID FOR* Visit Notes: >> Julisa Tran LPN SunJan 30, 2018 10:49 AM Status: Signed Est pt, discuss recent lab results 6 month f/u Julisa Tran LPN Encounter Status:Closed by RAH PEREZ DO on 01/30/18 PREALBUMIN Collected: 01/25/2018 Status: F Source: [facility] 12:40 PM REPOSITORY TYPE CODE TESTS RESULT OUT OF REFERENCE UNITS RANGE LAB L506.0500 20.0-40.0 mg/dL Low PREALBUMIN 7.0 Performed By: #### [id number] #### [facility] [address] [place], [place], [id number] CBC W/DIFF, AUTOMATED Collected: 01/25/2018 Status: F Source: MARK 12:40 PM REPOSITORY TYPE CODE TESTS RESULT OUT OF [...] LYMPHOPENIA NOTED Performed By: #### L100.0100 #### [facility] [address] [place], [address] WOUND CTR HISTORY Observed: 01/25/2018 Status: F Source: MARK AND PHYSICAL 11:51 AM REPOSITORY [facility] [address] [place] [address] Wound Ctr History AND Physical 01/25/18 1141 MR#: [id number] Acct: [id number] Name: DOUG CAST Rep #: [id number] : 1935 82 From: Tena Staples CLEAN UP SUPERVISORStacieC PCP: Vijay Mason Status: REG RCR Y Location: (1) MRSA (methicillin resistant Staphylococcus aureus) infection [...] Date Recorded By Document 01/25/18 10:11 DV [id number] 01/25/18 10:58 DV Wound Center Nurse 1 [Ulcer Assessment] #5 Right Medial Ankle -Combined with other wound No -Current Size (cm) - Length 3.0 WC - Nurse 2 - General Ulcer CM Notes Start: 01/25/18 09:27 Freq: Status: Active Protocol: Activity Type Activity Date Activity User E-Sign Co-Sign Detail Recorded Client Recorded Date Recorded By Document 01/25/18 11:25 MW [id number] 01/25/18 11:33 MW Wound Center Nurse 2 [...] Date Recorded By Document 01/25/18 11:25 MW [id number] 01/25/18 11:33 MW Wound Center Nurse 2 [...] CC: Signed Observed: 01/25/2018 Status: F Source: MARK CULTURE, DEEP WOUND 11:30 AM REPOSITORY Comments: LLE ULCER Gram Stain Gram [...] <=0.5 S (NF) indicates non-formulary drug at [facility]. Approval by Infectious Disease Specialist required before non-formulary drugs may be ordered and/or dispensed. * CLSI guidelines does not recommend testing of cephalosporins. This interpretation is deduced from Beta-lactam/penicillin results. Cult, Anaerobic No anaerobic bacteria isolated. Performed By: #### M100.1500 #### [facility] [address] [place], [address] COLTS NECK ABS GR + CBC Collected: 01/18/2018 Status: F Source: SANDY HOOK 11:25 AM [facility] [place] REPOSITORY TYPE CODE TESTS RESULT OUT OF REFERENCE UNITS RANGE LAB WWBC 3.70-11.00 k/uL [place] WBC 5.46 LAB WRBC 4.20-6.00 m/uL Low [place] RBC 3.35 LAB WHGB 13.0-17.0 g/dL Low [place] Hemoglobin 9.9 LAB WHCT 39.0-51.0 % Low [place] Hematocrit 32.6 LAB WMCV 80.0-100.0 fL Mark MCV 97.3 LAB WMCH 26.0-34.0 pg Mark MCH 29.6 LAB WMCHC 30.5-36.0 g/dL Low [place] MCHC 30.4 LAB WRDW 11.5-15.0 % Mark RDW 13.6 LAB WPLT 150-400 k/uL [place] Platelet Cnt 181 LAB WMPV 9.0-12.7 fL Mark MPV 10.3 Result Comment: Test performed at: [facility], [address] [place] [address]., [place] [address]. LAB ABGRAN 1.45-7.50 k/uL Absol Gran 4.36 Count FERRITIN Collected: 01/18/2018 Status: F Source: SANDY HOOK 11:25 AM [facility] REPOSITORY TYPE CODE TESTS RESULT OUT OF REFERENCE UNITS RANGE LAB FERR 30.3-565.7 ng/mL Ferritin 463.0 Performed By: #### FERR, IRON #### [facility] [employer] [address] [place] [address] IRON AND TIBC Collected: 01/18/2018 Status: F Source: SANDY HOOK 11:25 AM [facility] REPOSITORY TYPE CODE TESTS RESULT OUT OF REFERENCE UNITS RANGE LAB IRN 41-186 ug/dL Iron 55 LAB TIBC 232-386 ug/dL Low TIBC 159 LAB SAT 15-57 % Transferrin Saturatn 35 Performed By: #### FERR, IRON #### [facility] [employer] [address] [place], [place] [address] MARK ABS GR + CBC Collected: 01/02/2018 Status: F Source: SANDY HOOK 10:44 AM [facility] REPOSITORY TYPE CODE TESTS RESULT OUT OF REFERENCE UNITS RANGE LAB WWBC 3.70-11.00 k/uL Mark WBC 5.32 LAB WRBC 4.20-6.00 m/uL Low [place] RBC 3.58 LAB WHGB 13.0-17.0 g/dL Low [place] Hemoglobin 10.6 LAB WHCT 39.0-51.0 % Low Mark Hematocrit 34.8 LAB WMCV 80.0-100.0 fL Mark MCV 97.2 LAB WMCH 26.0-34.0 pg [place] MCH 29.6 LAB WMCHC 30.5-36.0 g/dL Mark MCHC 30.5 LAB WRDW 11.5-15.0 % Mark RDW 13.6 LAB WPLT 150-400 k/uL [place] Platelet Cnt 151 LAB WMPV 9.0-12.7 fL [place] MPV 10.5 Result Comment: Test performed at: [address] [place] [address]. LAB ABGRAN 1.45-7.50 k/uL Absol Gran 4.35 Count MARK ABS GR + CBC Collected: 12/19/2017 Status: F Source: SANDY HOOK 10:27 AM [facility] REPOSITORY TYPE CODE TESTS RESULT OUT OF REFERENCE UNITS RANGE LAB WWBC 3.70-11.00 k/uL Mark WBC 5.03 LAB WRBC 4.20-6.00 m/uL Low [place] RBC 3.58 LAB WHGB 13.0-17.0 g/dL Low Mark Hemoglobin 10.7 LAB WHCT 39.0-51.0 % Low Mark Hematocrit 35.2 LAB WMCV 80.0-100.0 fL [place] MCV 98.3 LAB WMCH 26.0-34.0 pg [place] MCH 29.9 LAB WMCHC 30.5-36.0 g/dL Low [place] MCHC 30.4 LAB WRDW 11.5-15.0 % Mark RDW 14.0 LAB WPLT 150-400 k/uL Low Mark Platelet Cnt 144 LAB WMPV 9.0-12.7 fL Mark MPV 10.8 Result Comment: Test performed at: [facility], [address] [place] [address]., [place] [address]. LAB ABGRAN 1.45-7.50 k/uL Absol Gran 3.92 Count MARK ABS GR + CBC Collected: 11/21/2017 Status: F Source: SANDY HOOK 10:53 AM [facility] REPOSITORY TYPE CODE TESTS RESULT OUT OF REFERENCE UNITS RANGE LAB WWBC 3.70-11.00 k/uL Mark WBC 5.01 LAB WRBC 4.20-6.00 m/uL Low [place] RBC 3.43 LAB WHGB 13.0-17.0 g/dL Low Mark Hemoglobin 10.3 LAB WHCT 39.0-51.0 % Low Mark Hematocrit 33.3 LAB WMCV 80.0-100.0 fL [place] MCV 97.1 LAB WMCH 26.0-34.0 pg [place] MCH 30.0 LAB WMCHC 30.5-36.0 g/dL [place] MCHC 30.9 LAB WRDW 11.5-15.0 % Mark RDW 13.7 LAB WPLT 150-400 k/uL Low Mark Platelet Cnt 129 LAB WMPV 9.0-12.7 fL [place] MPV 9.9 Result Comment: Test performed at: [facility] [place], [address] [place] [address]. LAB ABGRAN 1.45-7.50 k/uL Absol Gran 3.87 Count HOSP Observed: 11/21/2017 Status: COMPLETED Source: SANDY HOOK 10:30 AM [facility] REPOSITORY Infusion Center ([facility]) DOUG CAST ([id number]) 1935 M T Date Time Provider Department 11/21/17 10:30 AM [facility] During your visit today, we recorded the following information about you: Sheila Moctezuma LPN 11/21/2017 11:14 AM Signed Injection deferred, parameters not met. Hgb 10.3. Sheila Moctezuma LPN Referring Provider: RAH PEREZ [[id number]] Allergies As of Date: 11/21/2017 (No Known [...] + CBC Collected: 11/07/2017 Status: F Source: SANDY HOOK 10:53 AM [facility] [place] REPOSITORY TYPE CODE TESTS RESULT OUT OF REFERENCE UNITS RANGE LAB WWBC 3.70-11.00 k/uL [place] WBC 6.26 LAB WRBC 4.20-6.00 m/uL Low Mark RBC 3.61 LAB WHGB 13.0-17.0 g/dL Low [place] Hemoglobin 10.8 LAB WHCT 39.0-51.0 % Low [place] Hematocrit 34.8 LAB WMCV 80.0-100.0 fL Mark MCV 96.4 LAB WMCH 26.0-34.0 pg [place] MCH 29.9 LAB WMCHC 30.5-36.0 g/dL Mark MCHC 31.0 LAB WRDW 11.5-15.0 % Mark RDW 14.0 LAB WPLT 150-400 k/uL Mark Platelet Cnt 153 LAB WMPV 9.0-12.7 fL Mark MPV 10.2 Result Comment: Test performed at: [facility], [address] [place] [address]. LAB ABGRAN 1.45-7.50 k/uL Absol Gran 5.11 Count IRON AND TIBC Collected: 11/07/2017 Status: F Source: SANDY HOOK 10:53 AM [facility] REPOSITORY TYPE CODE TESTS RESULT OUT OF REFERENCE UNITS RANGE LAB IRN 41-186 ug/dL Iron 49 LAB TIBC 232-386 ug/dL Low TIBC 183 LAB SAT 15-57 % Transferrin Saturatn 27 Performed By: #### IRON, FERR #### [facility] [address] [place], [place] [id number] FERRITIN Collected: 11/07/2017 Status: F Source: SANDY HOOK 10:53 AM [facility] REPOSITORY TYPE CODE TESTS RESULT OUT OF REFERENCE UNITS RANGE LAB FERR 30.3-565.7 ng/mL Ferritin 375.4 Performed By: #### IRON, FERR #### [facility] [employer] [address] [place], [place] [address] HOSP Observed: 11/07/2017 Status: COMPLETED Source: SANDY HOOK 10:30 AM [facility] REPOSITORY Infusion Center ([facility]) DOUG CAST ([id number]) 1935 M T Date Time Provider Department 11/07/17 10:30 AM [facility] During your visit today, we recorded the following information about you: Sheila Moctezuma LPN 11/07/2017 11:04 AM Signed Injection deferred, Hgb 10.8. Sheila Moctezuma LPN Referring Provider: RAH PEREZ [[id number]] Allergies As of Date: 11/07/2017 (No Known [...] + CBC Collected: 10/24/2017 Status: F Source: SANDY HOOK 10:30 AM [facility] [place] REPOSITORY TYPE CODE TESTS RESULT OUT OF REFERENCE UNITS RANGE LAB WWBC 3.70-11.00 k/uL Mark WBC 4.40 LAB WRBC 4.20-6.00 m/uL Low Mark RBC 3.64 LAB WHGB 13.0-17.0 g/dL Low Mark Hemoglobin 10.8 LAB WHCT 39.0-51.0 % Low [place] Hematocrit 34.7 LAB WMCV 80.0-100.0 fL [place] MCV 95.3 LAB WMCH 26.0-34.0 pg [place] MCH 29.7 LAB WMCHC 30.5-36.0 g/dL [place] MCHC 31.1 LAB WRDW 11.5-15.0 % Mark RDW 14.1 LAB WPLT 150-400 k/uL Low [place] Platelet Cnt 114 LAB WMPV 9.0-12.7 fL [place] MPV 10.1 Result Comment: Test performed at: [facility] Mark [facility] [address] [place] [address]. LAB ABGRAN 1.45-7.50 k/uL Absol Gran 3.20 Count HOSP Observed: 10/24/2017 Status: COMPLETED Source: SANDY HOOK 10:30 AM [facility] REPOSITORY Infusion Center ([facility]) CASEYDOUG HUDSON ([id number]) 1935 M CHT Date Time Provider Department 10/24/17 10:30 AM [facility] During your visit today, we recorded the following information about you: Sheila Moctezuma LPN 10/24/2017 10:55 AM Signed Injection deferred. Parameters not met. HGB 10.8. Sheila Moctezuma LPN Referring Provider: RAH PEREZ [[id number]] Allergies As of Date: 10/24/2017 (No Known [...] Parameters not met. HGB 10.8. Sheila Moctezuma MARIA ISABEL Encounter Status:Closed by RHIANNA NICOLASSHEILA on 10/24/17 ALLERGIES ALLERGIES DATE TYPE / CODE NAME / CODE REACTION SEVERITY SOURCE 10/13/2018 Drug No Known Unknown [facility] [place] Allergy/416 Allergies/Y93437 Hospital 313460(SNOM 0388(RXNORM) Repository ED CT) NG/51904076 NO KNOWN [facility] 6(SNOMED ALLERGIES [facility]) Repository Drug NO KNOWN [facility] Class/14692 ALLERGIES [address] [place] 1003(SNOMED Repository CT) ENCOUNTERS ENCOUNTERS ADMIT/DISCHARGE ACCOUNT NUMBER ADMITTING ENCOUNTER LOCATION SOURCE CLASS 10/13/2018/10/13/20 [id number] [place], [place] Inpatient Mark [place] 18 Encounter [facility] ding:PCURoom Repository : [id number]: 1 10/13/2018 [id number] [place], [place] Ambulatory BMSBuilding: [place] BMS.[facility] Repository 10/13/2018 [id number] [place], [place] Ambulatory BMSBuilding: Mark BMS.[facility] Repository 10/13/2018 [id number] [place], [place] Ambulatory BMSBuilding: Mark BMS.[facility] Repository 10/12/2018/10/13/20 [id number] GeraChristiano Chi Inpatient Mark [place] 18 Encounter [facility] ding:TCURoom Repository : [id number]: 1 10/08/2018/10/12/20 [id number] Sementi, Inpatient Mark Mark 18 Gial Encounter [facility] ding:GZ4Cjhb Repository : [id number]: 1 10/08/2018 [id number] [place], Ambulatory BMSBuilding: Mark Gail BMS.[facility] Repository 10/08/2018 [id number] [place], Ambulatory BMSBuilding: [place] Gail BMS.[facility] Repository 10/08/2018 [id number] Sementi, Ambulatory BMSBuilding: Mark Gail BMS.[facility] Repository 10/08/2018 [id number] [place]i, Ambulatory BMSBuilding: [place] Gail BMS.[facility] Repository 10/08/2018 [id number] Sementi, Ambulatory BMSBuilding: [place] Gail BMS.[facility] Repository 10/08/2018 [id number] Ambulatory [facility] ding:OLS.AVE Repository B 10/07/2018 [id number] Ambulatory [facility] ding:OLS.AVE Repository B 10/05/2018 [id number] Ambulatory [facility] ding:OLS.AVE Repository B 09/29/2018/10/02/20 [id number] Agyepong, Inpatient Mark [place] [facility] ding:PCURoom Repository : [id number]: 1 09/29/2018 [id number] Agyepong, Ambulatory BMSBuilding: [place] BMS.[facility] Repository 09/29/2018 [id number] [place], Ambulatory BMSBuilding: Mark [place] BMS..[facility] Repository 09/29/2018 [id number] [place], Ambulatory BMSBuilding: [place] BMS.[facility] Repository 09/29/2018 [id number] Agyepong, Ambulatory BMSBuilding: Mark [place] BMS.[facility] Repository 09/29/2018 [id number] Agyepong, Ambulatory BMSBuilding: [place] BMS.[facility] Repository 09/29/2018 [id number] Agyepong, Ambulatory BMSBuilding: [place] BMS.[facility] Repository 09/29/2018 [id number] Agyepong, Ambulatory BMSBuilding: Mark [place] BMS.[facility] Repository 09/23/2018 [id number] Ambulatory [facility] ding:BFHLAB Repository 09/18/2018/09/18/20 [id number] Ambulatory [address] Repository 08/19/2018/09/17/20 [id number] Christiano [place] Inpatient [address] ding:TCURoom Repository : FQT04Qul: 1 08/14/2018/08/19/20 [id number] Agyepong, Inpatient Mark Mark 18 [place] Encounter [facility] ding:PCURoom Repository : [id number]: 1 08/14/2018 [id number] Agyepong, Ambulatory BMSBuilding: Markjosue Stone BMS.[facility] Repository 08/14/2018 [id number] Agyepong, Ambulatory BMSBuilding: Mark Stone BMS.[facility] Repository 08/14/2018 [id number] Agyepong, Ambulatory BMSBuilding: [place] BMS.[facility] Repository 08/14/2018 [id number] Agyepong, Ambulatory BMSBuilding: [place] BMS.[facility] Repository 08/14/2018 [id number] Agyepong, Ambulatory BMSBuilding: [place] BMS.[facility] Repository 08/14/2018 [id number] Agyepong, Ambulatory BMSBuilding: [place] Stone BMS.[facility] Repository 07/31/2018/08/01/20 [id number] Ambulatory [address] Repository 07/31/2018/07/31/20 [id number] Ambulatory [address] Repository 07/31/2018/08/15/20 [id number] Ambulatory [address] Repository 07/17/2018/07/18/20 [id number] Ambulatory [address] Repository 07/17/2018/07/18/20 [id number] Ambulatory [address] [place] Repository 07/03/2018/07/03/20 [id number] Ambulatory [address] [place] Repository 07/03/2018/07/03/20 [id number] Ambulatory [address] [place] Repository 06/19/2018/06/19/20 [id number] Ambulatory [address] [place] Repository 06/19/2018/06/19/20 [id number] Ambulatory [address] [place] Repository 06/05/2018/06/05/20 [id number] Ambulatory [address] [place] Repository 06/05/2018/06/06/20 [id number] Ambulatory [address] Repository 05/22/2018/05/23/20 [id number] Ambulatory [place] 18 [facility] [place] Repository 05/22/2018/05/22/20 [id number] Ambulatory [address] [place] Repository 05/17/2018/05/17/20 [id number] Ambulatory [address] Other [place] Repository 05/17/2018/05/17/20 [id number] Ambulatory [address] MEDICAL Repository CENTERBuildi ng:AGWM 05/17/2018 [id number] Ambulatory [facility] MEDICAL Repository CENTERBuildi ng:AGWM 05/08/2018/05/09/20 [id number] Ambulatory [address] [place] Repository 05/08/2018/05/08/20 [id number] Ambulatory [address] [place] Repository 05/08/2018 [id number] [facility] ding:WC Repository 05/07/2018 [id number] Ambulatory [facility] ding:CVS Repository 04/26/2018/04/27/20 [id number] Ambulatory [address] ding:WC Repository 04/24/2018/04/24/20 [id number] Ambulatory [address] [place] Repository 04/24/2018/04/25/20 [id number] Ambulatory [address] [place] Repository 04/10/2018/04/11/20 [id number] Ambulatory [address] [place] Repository 04/10/2018/04/10/20 [id number] Ambulatory [address] [place] Repository 04/05/2018 [id number] Ambulatory [facility] ding:LABSPEC Repository 03/27/2018/03/27/20 [id number] Ambulatory [address] [place] Repository 03/27/2018/03/27/20 [id number] Ambulatory [address] [place] Repository 03/22/2018/03/28/20 [id number] Ambulatory [address] ding:WC Repository 03/13/2018/03/14/20 [id number] Ambulatory [address] [place] Repository 03/13/2018/03/13/20 [id number] Ambulatory [address] [place] Repository 03/04/2018 [id number] Ambulatory [facility] ding:LAB.FUT Repository URE 03/01/2018 [id number] Ambulatory [facility] ding:BFHLAB Repository 02/27/2018/02/29/20 [id number] Ambulatory [address] [place] Repository 02/27/2018/02/29/20 [id number] Ambulatory [address] [place] Repository 02/15/2018/02/26/20 [id number] Ambulatory [address] ding:WC Repository 02/13/2018/02/14/20 [id number] Ambulatory [address] [place] Repository 02/13/2018/02/14/20 [id number] Ambulatory [address] [place] Repository 01/30/2018/02/01/20 [id number] Ambulatory [address] [place] Repository 01/30/2018/01/31/20 [id number] Ambulatory [address] [place] Repository 01/30/2018/02/01/20 [id number] Ambulatory [address] [place] Repository 01/25/2018/01/27/20 [id number] Ambulatory [address] ding:WC Repository 01/18/2018/01/19/20 [id number] Ambulatory [address] [place] Repository 01/18/2018/01/22/20 [id number] Ambulatory [address] [place] Repository 01/02/2018/01/04/20 [id number] Ambulatory [address] [place] Repository 01/02/2018/01/03/20 [id number] Ambulatory [place] 18 [facility] [place] Repository 12/19/2017/12/20/19 [id number] Ambulatory [place] 18 [facility] [place] Repository 12/19/2017/12/19/19 [id number] Ambulatory [place] 18 [facility] [place] Repository 11/21/2017/11/21/19 [id number] Ambulatory [place] 18 [facility] [place] Repository 11/21/2017/11/22/19 [id number] Ambulatory [place] 18 [facility] [place] Repository 11/07/2017/11/07/19 [id number] Ambulatory [place] 18 [facility] [place] Repository 11/07/2017/11/07/19 [id number] Ambulatory [address] Repository 10/24/2017/10/24/20 [id number] Ambulatory [address] Repository 10/24/2017/10/25/20 [id number] Ambulatory [address] Repository PAYERS PAYERS ENCOUNTER GUARANTOR PAYER SUBSCRIBER SOURCE 10/13/2018 DOUG Peter Primary DOUG Flores [id number] HAPPY Insurance:MEDICARE VASASDOB: Community [place] A BPolicy Number: [id number] [id number] Repository 71097Zmi: 330) Date:2018-10-13 [phone] () 10/13/2018 Secondary DOUG P [place] Insurance:HUMANA VASASDOB: [facility] [id number] Hospital Number: Repository [id number] Date:0825-76-95NH [address] [address]YE: 10/13/2018 Tertiary NOT GIVENUNK [place] Insurance:SELF PAY [facility] Hospital Number: Effective Repository Date:2018-10-13 10/13/2018 DOUG P Primary DOUG Quiñonezoster [id number] HAPPY Insurance:MEDICARE VASASDOB: Community [place] PART A BPolicy Number: [id number], [place] [id number] Repository 03968Pfg: 330) Date:2018-10-13 [phone] () 10/13/2018 Secondary DOUG Peter [place] Insurance:HUMANA VASASDOB: [facility] [id number] Hospital Number: Repository [id number] Date:6817-55-44JW [address] [address]SP: 10/13/2018 Tertiary NOT GIVENUNK Mark Insurance:SELF PAY [facility] Number: Effective Repository Date:2018-10-13 10/13/2018 DOUG P Primary DOUG P [place] [id number] HAPPY Insurance:MEDICARE VASASDOB: Community [place] PART [place] BPolicy Number: [id number], [place] [id number] Repository 10803Qyp: 330) Date:2018-10-13 [phone] () 10/13/2018 Secondary DOUG P [place] Insurance:HUMANA VASASDOB: [facility] COMMERCIALPolicy [id number] Hospital Number: Repository [id number] Date:[id number] [address]AI: 10/13/2018 Tertiary NOT GIVENUNK Mark Insurance:SELF PAY [facility] Number: Effective Repository Date:2018-10-13 10/13/2018 DOUG P Primary DOUG P [place] [id number] HAPPY Insurance:MEDICARE VASASDOB: Community [place] PART A BPolicy Number: [id number], [place] [id number] Repository [address]Woy: (330) Date:2018-10-13 [phone] () 10/13/2018 Secondary DOUG P [place] Insurance:HUMANA VASASDOB: [facility] [id number] Hospital Number: Repository [id number] Date:[id number] [address]JK: 10/13/2018 Tertiary NOT GIVENUNK [place] Insurance:SELF PAY [facility] Hospital Number: Effective Repository Date:2018-10-13 10/12/2018 DOUG P Primary DOUG P Mark [id number] HAPPY Insurance:MEDICARE VASASDOB: Community [place] PART A BPolicy Number: [id number], [place] [id number] Repository [address]Gil: (330) Date:2018-10-12 [phone] () 10/12/2018 Secondary DOUG P [place] Insurance:HUMANA VASASDOB: [facility] [id number] Hospital Number: Repository [id number] Date:3583-65-63KG [address] [address]GS: 10/12/2018 Tertiary NOT GIVENUNK Mark Insurance:SELF PAY [facility] Hospital Number: Effective Repository Date:2018-10-12 10/08/2018 DOUG P Primary DOUG P [place] [id number] HAPPY Insurance:MEDICARE VASASDOB: Community [place] BPolicy Number: [id number], [place] [id number] Repository [address]27[address]Avy: (330) Date:2018-10-088339 () 10/08/2018 Secondary DOUG P Mark Insurance:HUMANA VASASDOB: [facility] [id number] Hospital Number: Repository [id number] Date:0187-29-59IT [address] [address]XS: 10/08/2018 Tertiary NOT GIVENUNK Mark Insurance:SELF PAY [facility] Hospital Number: Effective Repository Date:2018-10-08 10/08/2018 DOUG P Primary DOUG P [place] [id number] HAPPY Insurance:MEDICARE VASASDOB: Community [place] PART A BPolicy Number: [id number], [place] [id number] Repository [address]Tjn: 330) Date:2018-10-088390 () 10/08/2018 Secondary DOUG P [place] Insurance:HUMANA VASASDOB: [facility] [id number] Hospital Number: Repository [id number] Date:[id number] [address]SQ: 10/08/2018 Tertiary NOT GIVENUNK [place] Insurance:SELF PAY [facility] Hospital Number: Effective Repository Date:2018-10-08 10/08/2018 DOUG P Primary DOUG P Mark [id number] HAPP[place] Insurance:MEDICARE VASASDOB: [facility] PART A BPolicy Number: [id number], [place] [id number] Repository [address]Rku: (330) Date:2018-10-081815 () 10/08/2018 Secondary DOUG P [place] Insurance:HUMANA VASASDOB: [facility] [id number] Hospital Number: Repository [id number] Date:1711-60-04LA [address] [address]GP: 10/08/2018 Tertiary NOT GIVENUNK Mark Insurance:SELF PAY [facility] Number: Effective Repository Date:2018-10-08 10/08/2018 DOUG P Primary DOUG P Mark [id number] HAPPY Insurance:MEDICARE VASASDOB: Community [place] PART [place] BPolicy Number: [id number], [place] [id number] Repository [address]Ecg: (050) Date:2018-10-080090 () 10/08/2018 Secondary DOUG P Mark Insurance:HUMANA VASASDOB: Community COMMERCIALPolicy [id number] Hospital Number: Repository [id number] Date:4543-23-75MQ[address] [address]PH: 10/08/2018 Tertiary NOT GIVENUNK [place] Insurance:SELF PAY [facility] Number: Effective Repository Date:2018-10-08 10/08/2018 DOUG P Primary DOUG P [place] [id number] [place]APPY Insurance:MEDICARE VASASDOB: [place] BPolicy [place]: [id number] [id number] Repository 57270Hzh: (421) Date:2018-10-08 [phone] () 10/08/2018 Secondary DOUG P Mark Insurance:HUMANA VASASDOB: Community COMMERCIALPolicy [id number] Hospital Number: Repository [id number] Date:1195-36-87SE[address] [address]UH: 10/08/2018 Tertiary NOT GIVENUNK [place] Insurance:SELF PAY [facility] Number: Effective Repository Date:2018-10-08 10/08/2018 DOUG P Primary DOUG P [place] [id number] [place] Insurance:MEDICARE VASASDOB: [place] PART [place] BPolicy Number: [id number], [place] [id number] Repository 36440Aor: (170) Date:2018-10-086089 () 10/08/2018 Secondary DOUG P Mark Insurance:HUMANA VASASDOB: Community COMMERCIALPolicy [id number] Hospital Number: Repository [id number] Date:4379-85-47CJ [address] [place] [address]LC: 10/08/2018 Tertiary NOT GIVENUNK [place] Insurance:SELF PAY [facility] Number: Effective Repository Date:2018-10-08 10/08/2018 DOUG P Primary Insurance:SELF NOT GIVENUNK [place] [id number] [place] PAY [facility] Number: Effective [place] Date:2018-10-08 Repository 26194Rfk: () 10/07/2018 DOUG P Primary Insurance:SELF NOT GIVENUNK [place] [id number] [place] PAY [facility] Number: Effective [place] Date:2018-10-07 Repository 14674Mtc: () 10/05/2018 DOUG P Primary Insurance:SELF NOT GIVENUNK [place] [id number] [place] [facility] [place] Date:2018-10-05 Repository 25163Prv: () 09/29/2018 DOUG P Primary DOUG P [place] [id number] [place] Insurance:MEDICARE VASASDOB: [place] PART A BPolicy Number: [id number] [place], [place] [id number] Repository 99112Quj: (862) Date:2018-09-28 [phone] () 09/29/2018 Secondary DOUG Peter [place] Insurance:HUMANA VASASDOB: Community COMMERCIALPolicy [id number] Hospital Number: Repository [id number] Date:8069-68-91LH [address] [place] [address]XL: 09/29/2018 Tertiary NOT GIVENUNK [place] Insurance:SELF PAY [facility] Number: Effective Repository Date:2018-09-28 09/29/2018 DOUG P Primary DOUG Peter [place] [id number] [place] Insurance:MEDICARE VASASDOB: [place] BPolicy Number: [id number], [place] [id number] Repository [address]Ris: 330) Date:2018-09-285720 () 09/29/2018 Secondary DOUG P [place] Insurance:HUMANA VASASDOB: [facility] [id number] Hospital Number: Repository [id number] Date:5236-27-99GI [address] [place] [address]AW: 09/29/2018 Tertiary NOT GIVENUNK Mark Insurance:SELF PAY [facility] Hospital Number: Effective Repository Date:2018-09-29 09/29/2018 DOUG P Primary DOUG P [place] [id number] [place] Insurance:MEDICARE VASASDOB: [facility] PART A BPolicy Number: [id number], [place] [id number] Repository [address]Edb: 330) Date:2018-09-281067 () 09/29/2018 Secondary DOUG P Mark Insurance:HUMANA VASASDOB: [facility] [id number] Hospital Number: Repository [id number] Date:6989-38-36TO [address] [place] [address]VG: 09/29/2018 Tertiary NOT GIVENUNK [place] Insurance:SELF PAY [facility] Hospital Number: Effective Repository Date:2018-09-29 09/29/2018 DOUG P Primary DOUG P [place] [id number] [place] Insurance:MEDICARE VASASDOB: [facility] PART A BPolicy Number: [id number], [place] [id number] Repository 80231Msv: 330) Date:2018-09-28 [phone] () 09/29/2018 Secondary DOUG P [place] Insurance:HUMANA VASASDOB: [facility] [id number] Hospital Number: Repository [id number] Date:6319-49-34GL [address] [place] [address]OH: 09/29/2018 Tertiary NOT GIVENUNK [place] Insurance:SELF PAY [facility] Number: Effective Repository Date:2018-09-29 09/29/2018 DOUG P Primary DOUG P [place] [id number] [place] Insurance:MEDICARE VASASDOB: [place] BPolicy Number: [id number], [place] [id number] Repository 55365Ffq: (330) Date:2018-09-282393 () 09/29/2018 Secondary DOUG P Mark Insurance:HUMANA VASASDOB: Community COMMERCIALPolicy [id number] Hospital Number: Repository [id number] Date:1890-02-93PK [address] [place] [address]KM: 09/29/2018 Tertiary NOT GIVENUNK [place] Insurance:SELF PAY [facility] Hospital Number: Effective Repository Date:2018-09-29 09/29/2018 DOUG P Primary DOUG P [place] [id number] [place] Insurance:MEDICARE VASASDOB: [place] BPolicy Number: [id number], [place] [id number] Repository 909[address]Gbk: (734) Date:2018-09-28 [phone] () 09/29/2018 Secondary DOUG P [place] Insurance:HUMANA VASASDOB: Community COMMERCIALPolicy [id number] Hospital Number: Repository [id number] Date:4368-46-46WS [address] [place] [address]SD: 09/29/2018 Tertiary NOT GIVENUNK [place] Insurance:SELF PAY [facility] Hospital Number: Effective Repository Date:2018-09-29 09/29/2018 DOUG P Primary DOUG P [place] [id number] [place] Insurance:MEDICARE VASASDOB: [place] BPolicy Number: [id number], [place] [id number] Repository 33835Ckp: (330) Date:2018-09-28 [phone] () 09/29/2018 Secondary DOUG P Mark Insurance:HUMANA VASASDOB: Community COMMERCIALPolicy [id number] Hospital Number: Repository [id number] Date:8475-11-26YQ [address] [place] [address]NQ: 09/29/2018 Tertiary NOT GIVENUNK [place] Insurance:SELF PAY [facility] Number: Effective Repository Date:2018-09-29 09/29/2018 DOUG P Primary DOUG P [place] [id number] [place] Insurance:MEDICARE VASASDOB: [place] BPolicy Number: [id number], [place] [id number] Repository 72267Wme: (032) Date:2018-09-28 [phone] () 09/29/2018 Secondary DOUG P Mark Insurance:HUMANA VASASDOB: [facility] [id number] Hospital Number: Repository [id number] Date:4077-76-26TT [address] [place] [address]ST: 09/29/2018 Tertiary NOT GIVENUNK [place] Insurance:SELF PAY [facility] Hospital Number: Effective Repository Date:2018-09-29 09/23/2018 DOUG P Primary DOUG P [place] [id number] [place] Insurance:MEDICARE VASASDOB: [place] BPolicy Number: [id number], [place] [id number] Repository 02352Grw: (817) Date:2018-09-23 [phone] () 09/23/2018 Secondary DOUG P Mark Insurance:HUMANA VASASDOB: [facility] [id number] Hospital Number: Repository [id number] Date:9958-24-99JO [address] [place] [address]CR: 09/23/2018 Tertiary NOT GIVENUNK [place] Insurance:SELF PAY [facility] Hospital Number: Effective Repository Date:2018-09-23 08/19/2018 DOUG P Primary DOUG P [place] [id number] [place] Insurance:MEDICARE VASASDOB: [place] PART A BPolicy Number: [id number], [place] [id number] Repository 25206Vyr: 330) Date:2018-08-19 [phone] () 08/19/2018 Secondary DOUG P [place] Insurance:HUMANA VASASDOB: [facility] [id number] Hospital Number: Repository [id number] Date:2981-57-10WF[address] [address]OM: 08/19/2018 Tertiary NOT GIVENUNK [place] Insurance:SELF PAY [facility] Number: Effective Repository Date:2018-08-19 08/14/2018 Doug P Primary Doug P [place] [id number] [place] Insurance:MEDICARE VasasDOB: [facility] PART A BPolicy Number: [id number], [place] [id number] Repository 38677Zih: (330) Date:2018-08-14 [phone] () 08/14/2018 Secondary Doug P [place] Insurance:HUMANA VasasDOB: [facility] [id number] Hospital Number: Repository [id number] Date:1825-89-46NX[address] [address]JD: 08/14/2018 Tertiary NOT GIVENUNK [place] Insurance:SELF PAY [facility] Hospital Number: Effective Repository Date:2018-08-14 08/14/2018 Doug P Primary Doug P [place] [id number] [place] Insurance:MEDICARE VasasDOB: [facility] PART A BPolicy Number: [id number], [place] [id number] Repository 17116Xrf: 330) Date:2018-08-14 [phone] () 08/14/2018 Secondary Doug P [place] Insurance:HUMANA VasasDOB: [facility] [id number] Hospital Number: Repository [id number] Date:7290-22-22NS [address] [address]KC: 08/14/2018 Tertiary NOT GIVENUNK [place] Insurance:SELF PAY [facility] Hospital Number: Effective Repository Date:2018-08-14 08/14/2018 DOUG P Primary DOUG P Mark [id number] [place] Insurance:MEDICARE VASASDOB: [place] PART A BPolicy Number: [id number], [place] [id number] Repository 56520Xub: (330) Date:2018-08-146036 () 08/14/2018 Secondary DOUG P [place] Insurance:HUMANA VASASDOB: [facility] [id number] Hospital Number: Repository [id number] Date:0688-48-02YD [address] [place] [address]YU: 08/14/2018 Tertiary NOT GIVENUNK [place] Insurance:SELF PAY [facility] Hospital Number: Effective Repository Date:2018-08-14 08/14/2018 Doug P Primary Doug P [place] [id number] [place] Insurance:MEDICARE VasasDOB: [facility] PART A BPolicy Number: [id number], [place] [id number] Repository 259[address]Wki: 330) Date:2018-08-146365 () 08/14/2018 Secondary Doug P [place] Insurance:HUMANA VasasDOB: [facility] [id number] Hospital Number: Repository [id number] Date:9792-86-43HY [address] [address]NR: 08/14/2018 Tertiary NOT GIVENUNK [place] Insurance:SELF PAY [facility] Hospital Number: Effective Repository Date:2018-08-14 08/14/2018 Doug P Primary Doug P [place] [id number] [place] Insurance:MEDICARE VasasDOB: [facility] PART A BPolicy Number: [id number], [place] [id number] Repository 59[address]Dke: (330) Date:2018-08-145115 () 08/14/2018 Secondary Doug P [place] Insurance:HUMANA VasasDOB: [facility] 2022-28-20QFM Hospital Number: Repository [id number] Date:6800-14-14QE [address] [place] [address]LG: 08/14/2018 Tertiary NOT GIVENUNK [place] Insurance:SELF PAY [facility] Number: Effective Repository Date:2018-08-14 08/14/2018 Doug P Primary Doug P [place] [id number] [place] Insurance:MEDICARE VasasDOB: [place] PART [place] BPolicy Number: [id number], [place] [id number] Repository 24226Fzm: (330) Date:2018-08-14 [phone] () 08/14/2018 Secondary Doug P [place] Insurance:HUMANA VasasDOB: [facility] [id number] Hospital Number: Repository [id number] Date:2042-09-65HN[address] [address]MO: 08/14/2018 Tertiary NOT GIVENUNK [place] Insurance:SELF PAY [facility] Hospital Number: Effective Repository Date:2018-08-14 08/14/2018 Doug P Primary Doug P [place] [id number] [place] Insurance:MEDICARE VasasDOB: [place] PART [place] BPolicy Number: [id number], [place] [id number] Repository 58183Wto: (751) Date:2018-08-14 [phone] () 08/14/2018 Secondary Doug P [place] Insurance:HUMANA VasasDOB: [facility] [id number] Hospital Number: Repository [id number] Date:4350-12-32LB [address] [address]ZR: 08/14/2018 Tertiary NOT GIVENUNK [place] Insurance:SELF PAY [facility] Hospital Number: Effective Repository Date:2018-08-14 05/17/2018 DOUG Primary DOUG [facility] VASASDOB: Insurance:MEDICARE A VASASDOB: [facility] AND BPolicy Number: [id number] Repository [place] [id number] [place], [place] Date: [address]Jxx: (HP) 05/17/2018 Secondary DOUG [facility] Insurance:HUMANA VASASDOB: [facility] MEDICARE [id number] Repository SUPPLEMENTPolicy Number: [id number] Date: 05/17/2018 DOUG Primary DOUG [facility] VASASDOB: Insurance:MEDICARE A VASASDOB: [facility] AND BPolicy Number: [id number] Repository [place] [id number] [place] Date: [address]Yvs: (HP) 05/17/2018 Secondary DOUG [facility] Insurance:HUMANA VASASDOB: [facility] MEDICARE [id number] Repository SUPPLEMENTPolicy Number: [id number] Date: 05/08/2018 Doug P Primary Doug P Mark [id number] [place] Insurance:MEDICARE VasasDOB: [facility] PART A BPolicy Number: [id number], [place] [id number] Repository 79889Wli: (775) Date:2018-01-25 [phone] () 05/08/2018 Secondary Doug P [place] Insurance:HUMANA VasasDOB: [facility] [id number] Hospital Number: Repository [id number] Date:3263-56-12BW[address] [address]OY: 05/08/2018 Tertiary NOT GIVENUNK [place] Insurance:SELF PAY [facility] Hospital Number: Effective Repository Date:2018-04-28 05/07/2018 Doug P Primary Doug P [place] [id number] [place] Insurance:MEDICARE VasasDOB: [facility] [place] PART A BPolicy Number: [id number], [place] [id number] Repository 18147Cvs: (862) Date:2018-04-22 [phone] (HP) 05/07/2018 Secondary Doug P [place] Insurance:HUMANA VasasDOB: [facility] [id number] Hospital Number: Repository [id number] Date:3732-07-47KP[address] [address]DY: 05/07/2018 Tertiary NOT GIVENUNK [place] Insurance:SELF PAY [facility] Hospital Number: Effective Repository Date:2018-04-22 04/26/2018 Doug P Primary Doug P [place] [id number] [place] Insurance:MEDICARE VasasDOB: [facility] [place] PART A BPolicy Number: [id number], [place] [id number] Repository [address]Ppc: (330) Date:2018-01-25 [phone] () 04/26/2018 Secondary Doug P [place] Insurance:HUMANA VasasDOB: [facility] [id number] Hospital Number: Repository [id number] Date:4712-13-40MD[address] [address]IB: 04/26/2018 Tertiary NOT GIVENUNK [place] Insurance:SELF PAY [facility] Hospital Number: Effective Repository Date:2018-03-29 04/05/2018 Doug P Primary Doug P [place] [id number] [place] Insurance:MEDICARE VasasDOB: [place] PART A BPolicy Number: [id number], [place] [id number] Repository 409[address]Mum: (954) Date:2018-04-05 [phone] () 04/05/2018 Secondary Doug P [place] Insurance:HUMANA VasasDOB: [facility] [id number] Hospital Number: Repository [id number] Date:3023-86-64AR[address] [address]TG: 04/05/2018 Tertiary NOT GIVENUNK [place] Insurance:SELF PAY [facility] Hospital Number: Effective Repository Date:2018-04-05 03/22/2018 Doug P Primary Doug P Mark [id number] [place] Insurance:MEDICARE VasasDOB: [facility] [place] PART A BPolicy Number: [id number], [place] [id number] Repository [address]5783Qyp: Date:2018-01-25 ~33 0-4 (HP) 03/22/2018 Secondary Doug P [place] Insurance:HUMANA VasasDOB: [facility] [id number] Hospital Number: Repository [id number] Date:5876-73-28NX[address] [address]SW: 03/22/2018 Tertiary NOT GIVENUNK [place] Insurance:SELF PAY [facility] Hospital Number: Effective Repository Date:2018-02-26 03/04/2018 Doug P Primary Doug P [place] [id number] [place] Insurance:MEDICARE VasasDOB: [place] PART A BPolicy Number: [id number], [place] [id number] Repository [address]97[address]Iaa: Date:2018-03-04 ~33 0-4 (HP) 03/04/2018 Secondary Doug P [place] Insurance:HUMANA VasasDOB: [facility] [id number] Hospital Number: Repository [id number] Date:4242-86-97FR[address] [address]FT: 03/04/2018 Tertiary NOT GIVENUNK [place] Insurance:SELF PAY [facility] Hospital Number: Effective Repository Date:2018-03-04 03/01/2018 Doug P Primary Doug P Mark [id number] [place] Insurance:MEDICARE VasasDOB: [place] PART A BPolicy Number: [id number], [place] [id number] Repository 933[address]Jrj: Date:2018-03-01 ~33 0-4 (HP) 03/01/2018 Secondary Doug P [place] Insurance:HUMANA VasasDOB: [facility] [id number] Hospital Number: Repository [id number] Date:9180-68-10HN[address] [address]GQ: 03/01/2018 Tertiary NOT GIVENUNK [place] Insurance:SELF PAY [facility] Hospital Number: Effective Repository Date:2018-03-01 02/15/2018 Doug P Primary Doug P Mark [id number] [place] Insurance:MEDICARE VasasDOB: [facility] [place] PART A BPolicy Number: [id number], [place] [id number] Repository 22298Evy: Date:2018-01-25 ~33 0-4 (HP) 02/15/2018 Secondary Doug P [place] Insurance:HUMANA VasasDOB: [facility] [id number] Hospital Number: Repository [id number] Date:8824-00-04MP [address] [place] [address]PI: 02/15/2018 Tertiary NOT GIVENUNK [place] Insurance:SELF PAY [facility] Number: Effective Repository Date:2018-01-27 01/25/2018 Doug P Primary Doug P Mark [id number] [place] Insurance:MEDICARE VasasDOB: [facility] PART A BPolicy Number: [id number], [place] [id number] Repository 489[address]Vkv: Date:2018-01-25 ~33 0-4 (HP) 01/25/2018 Secondary Doug P [place] Insurance:HUMANA VasasDOB: [facility] [id number] Hospital Number: Repository [id number] Date:0080-44-56OO [address] [address]TE: 01/25/2018 Tertiary NOT GIVENUNK [place] Insurance:SELF PAY [facility] Hospital Number: Effective Repository Date:2018-01-25
== END 2018-10-02 14:08 | disposition home or self-care (01) | DRG 871 ==
LOC: ED 09-29 00:50 → PCU 09-29 01:24
PROVIDERS: Hospitalist; Internal Medicine Cardiovascular Disease; Physician Assistant; Admitting Provider Hospitalist; Emergency Provider Emergency Medicine; Family Provider Family Medicine; PCP Family Medicine; Visit Provider Family Medicine
DX: A40.3 Sepsis due to Streptococcus pneumoniae (principal); G93.41 Metabolic encephalopathy; J13 Pneumonia due to Streptococcus pneumoniae; I50.33 Acute on chronic diastolic (congestive) heart failure; J96.01 Acute respiratory failure with hypoxia; R65.20 Severe sepsis without septic shock; N17.9 Acute kidney failure, unspecified; I13.0 Hypertensive heart and chronic kidney disease with heart failure and stage 1 through stage 4 chronic kidney disease, or unspecified chronic kidney disease; N18.3 Chronic kidney disease, stage 3 (moderate); D50.9 Iron deficiency anemia, unspecified; D63.8 Anemia in other chronic diseases classified elsewhere; E78.5 Hyperlipidemia, unspecified; I89.0 Lymphedema, not elsewhere classified; I48.0 Paroxysmal atrial fibrillation; N40.0 Benign prostatic hyperplasia without lower urinary tract symptoms; I87.2 Venous insufficiency (chronic) (peripheral); R13.12 Dysphagia, oropharyngeal phase; M10.9 Gout, unspecified; Z86.73 Personal history of transient ischemic attack (TIA), and cerebral infarction without residual deficits; Z79.899 Other long term (current) drug therapy
CPT/HCPCS: 36415; 70450; 71045; 71046; 74230; 80048; 81001; 82962; 83605; 83735; 83880; 84100; 84443; 84484; 85025; 85027; 85610; 85730; 87040; 87077; 87149; 87186; 87449; 92526; 92611; 93005; 93306; 94640; 94667; 94668; 97162; 97165; 97530; 97802; 99285; J7030; J7040; J7050; A4216; J0696; J1940

== ENCOUNTER 2018-10-08 17:00 | Inpatient (IN) | payer MEDICARE, OTHER, SELFPAY ==
[2018-09-29 01:45] VITALS: BMI 25.7
[2018-10-08 17:01] VITALS: BP 123/57; PULSE 77; PULSE 78; RESP 16; RESP 18; TEMP 36.4; O2SAT 99; BMI 25.8
--- NOTE | 2018-10-08 17:35 | RAD_ITS ---
STUDY: X-RAY CHEST REASON FOR EXAM: Male, 83 years old. Abnormal labs. TECHNIQUE: Single AP portable view of the chest. COMPARISON: October 02, 2018 FINDINGS: There is right mid and lower lung groundglass and airspace consolidation. There is stable moderate right pleural effusion. There is left lower lung atelectasis. Normal size heart. Normal mediastinum and jordan. Normal visualized pulmonary arteries. There is atherosclerotic calcification of the aortic arch with tortuosity. There are diffuse degenerative changes of the visualized thoracic spine. Normal visualized ribs, clavicles, and shoulders. There is no demonstrated abnormality of the visualized soft tissue structures of the upper abdomen. RAD/Chest 1 View (Portable) IMPRESSION: Right mid and lower lung consolidation and pleural effusion. Electronically Signed: Baltazar Linder MD at 17:50 EST , Service support ,
[2018-10-08 18:55] VITALS: BP 130/52; PULSE 81; RESP 18; O2SAT 94
[2018-10-08 18:57] LABS: Bacteria 0 SEEN /hpf (None Seen); Mucous, Urine 0 SEEN /hpf (<or=2+); Red Blood Cells-Urine 0 SEEN /hpf (0-5)
--- NOTE | 2018-10-08 18:57 | ED.VISSUMM ---
- ER Visit Summary Date of Service: 10/08/18 Chief Complaint: Abnormal labs History of Present Illness: The patient is a 83 M presenting for evaluation secondary to abnormal lab. Patient has recently been in and out of the hospital. He was initially admitted for A. fib with RVR and was started on anticoagulation. Patient then required readmission secondary to development of pneumonia. He was discharged home, and then bounced to a long-term facility secondary to functional decline. Patient apparently has had worsening weakness and lethargy. Repeat laboratory studies showed elevated white blood cell counts, decreased hemoglobin count, and a decreased potassium today. There was concern about this so the patient was brought to the emergency department for further evaluation. Patient states that his breathing feels somewhat improved, but he now has diarrhea and fecal incontinence. He states that his stools are not melanotic. Review of systems otherwise negative. Physical Examination: Vital signs are stable and within normal limits. Elderly somewhat ill-appearing male sitting in the bed not acute distress. Head normocephalic. Dry mucous membranes. Neck was supple. Heart was regular rate and rhythm. Lungs sounds showed some diminished sounds at the right base, but no respiratory distress rhonchi rales or wheezes. Abdomen was soft and nontender. Rectal exam showed brown stool but was trace guaiac positive. Patient has a stage I decubitus ulcer just above his anus. +2 bilaterally symmetric pitting edema of the lower extremities. Test Results: Patient's lab work today shows a leukocytosis of 17, hemoglobin of 8.5, potassium 3.1, and creatinine of 2 which is baseline Emergency Department Course and Treatment: Patient presented secondary to the above complaints. Patient's workup ends up showing guaiac positive stool in the setting of anticoagulation. I do believe that he requires admission for observation at this point given his general ill appearance. Patient's chest x-ray does not seem to be significantly changed, and as he has no new respiratory symptoms I do not believe that that is the cause of his leukocytosis, likely it is from his diarrhea. Patient will be admitted under the hospitalist. Disposition: Admission Impression: 1. GI bleed 2. Eliquis coagulopathy 3. Leukocytosis 4. Right-sided infiltrate and effusion unchanged from prior radiograph This note was generated with Skulpt dictation software. It may contain incorrect words, spelling, and punctuation that were not noted in review of the chart prior to signing ED Disposition - Plan for ED Patient: Chief Complaint: Abn Labs Referrals: Vijay Mason MD [Primary Care Provider] -
--- NOTE | 2018-10-08 19:00 | ED.DCSUM_ITS ---
- ER Visit Summary Date of Service: 10/08/18 Chief Complaint: Abnormal labs History of Present Illness: The patient is a 83 M presenting for evaluation secondary to abnormal lab. Patient has recently been in and out of the hospital. He was initially admitted for A. fib with RVR and was started on anticoagulation. Patient then required readmission secondary to development of pneumonia. He was discharged home, and then bounced to a long term facility secondary to functional decline. Patient apparently has had worsening weakness and lethargy. Repeat laboratory studies showed elevated white blood cell counts, decreased hemoglobin count, and a decreased potassium today. There was concern about this so the patient was brought to the emergency department for further evaluation. Patient states that his breathing feels somewhat improved, but he now has diarrhea and fecal incontinence. He states that his stools are not melanotic. Review of systems otherwise negative. Physical Examination: Vital signs are stable and within normal limits. Elderly somewhat ill-appearing male sitting in the bed not acute distress. Head normocephalic. Dry mucous membranes. Neck was supple. Heart was regular rate and rhythm. Lungs sounds showed some diminished sounds at the right base, but no respiratory distress rhonchi rales or wheezes. Abdomen was soft and nontender. Rectal exam showed brown stool but was trace guaiac positive. Patient has a stage I decubitus ulcer just above his anus. +2 bilaterally symmetric pitting edema of the lower extremities. Test Results: Patient's lab work today shows a leukocytosis of 17, hemoglobin of 8.5, potassium 3.1, and creatinine of 2 which is baseline Emergency Department Course and Treatment: Patient presented secondary to the above complaints. Patient's workup ends up showing guaiac positive stool in the setting of anticoagulation. I do believe that he requires admission for observation at this point given his general ill appearance. Patient's chest x- ray does not seem to be significantly changed, and as he has no new respiratory symptoms I do not believe that that is the cause of his leukocytosis, likely it is from his diarrhea. Patient will be admitted under the hospitalist. Disposition: Admission Impression: 1. GI bleed 2. Eliquis coagulopathy 3. Leukocytosis 4. Right-sided infiltrate and effusion unchanged from prior radiograph This note was generated with [employer] dictation software. It may contain incorrect words, spelling, and punctuation that were not noted in review of the chart pr ior to signing ED Disposition - Plan for ED Patient: Chief Complaint: Abn Labs Referrals: Vijay Mason MD [Primary Care Provider] -
[2018-10-08 19:09] LABS: Color, Urine Yellow (Yellow); Glucose, Dipstick Normal (Normal); Ketone-Dipstick Negative (Negative); Leukocyte Esterase-Dipstick 25 /ul (Negative); Nitrite-Dipstick Negative (Negative); Occult Blood-Urine Negative /ul (Negative); Protein-Dipstick Negative (Negative); Specific Gravity, Urine 1.015 (1.002-1.030); Urine Bilirubin Dipstick Negative (Negative); Urine Clarity Sl. Cloudy (Clear); Urine Urobilinogen Normal (Normal)
[2018-10-08 19:23] VITALS: BP 138/60; PULSE 69; RESP 18; TEMP 36.9; O2SAT 100
[2018-10-08 19:24] LABS: Fine Granular Cast- Urine 0-5 SEEN /lpf (0-5)
[2018-10-08 19:25] LABS: White Blood Cells 0-5 SEEN /hpf (0-5)
[2018-10-08 19:26] LABS: Squamous Epithelial Cells - UA 0 SEEN /hpf (0-5)
--- NOTE | 2018-10-08 20:12 | ED.RN ---
this rn calls pt theresa hair with number listed in contacts with pt permission. son does not answer, voicemail is full, unable to notify him of pt room number.
--- NOTE | 2018-10-08 20:47 | PCM.HP.STD ---
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 Status: Acute (6) Carotid artery disease Status: Chronic (7) Cellulitis of leg Status: Resolved (8) Confusion Status: Acute (9) Delirium due to another medical condition Status: Resolved (10) HCAP (healthcare-associated pneumonia) Status: Resolved (11) Hyperkalemia Status: Resolved (12) Hypoxemia Status: Resolved (13) Metabolic encephalopathy Status: Resolved (14) Pneumonia Status: Resolved (15) Rhabdomyolysis Status: Resolved (16) Sepsis Status: Resolved (17) Sepsis affecting skin Status: Resolved (18) Severe sepsis Status: Resolved (19) Staphylococcal scalded skin syndrome Status: Resolved (20) Wound infection Status: Resolved (21) Anemia Status: Chronic (22) Arthritis Status: Chronic (23) BPH (benign prostatic hyperplasia) Status: Chronic (24) CKD (chronic kidney disease), stage III Status: Chronic (25) Cellulitis Status: Chronic Qualifiers: (26) Chronic renal insufficiency, stage III (moderate) Status: Chronic (27) Gout Status: Chronic (28) Hyperlipidemia Status: Chronic (29) Hypertension Status: Chronic (30) Leg ulcer Status: Chronic (31) Lymphedema Status: Chronic (32) Lymphedema of lower extremity Status: Chronic (33) Nephrolithiasis Status: Chronic (34) Non-pressure chronic ulcer of other part of right foot limited to breakdown of skin Status: Chronic (35) Nonstaphylococcal scalded skin syndrome Status: Resolved (36) Pleural effusion, right Status: Chronic (37) Stroke Status: Chronic (38) MRSA (methicillin resistant Staphylococcus aureus) infection Status: Inactive (39) Staph aureus infection Status: Inactive (40) Hypokalemia Status: Acute (41) Anemia of chronic kidney failure Status: Chronic History of Present Illness Date of Admission: 10/08/18 Chief Complaint: diarrhea, decreased HGB The patient is a 83 year old M with a past medical history of CVA, chronic renal failure stage III, hypertension, atrial fibrillation, chronic anticoagulation with Eliquis, hyperlipidemia, chronic mild thrombocytopenia, BPH, chronic bilateral lower extremity lymphedema, chronic venous stasis ulcers of the lower extremities, anemia of chronic disease/iron deficiency, recent streptococcal pneumonia with severe sepsis and acute on chronic renal failure who presented to the emergency department at [facility] on 10/08/2018 from the senior care with complaints of diarrhea, increased weakness, elevated white blood cell count and decreasing hemoglobin. He has been on amoxicillin and prior to that was on initially vancomycin and Zosyn for HCAP and then Rocephin. The patient himself cannot tell me if he has had diarrhea or not. He denies abdominal pain, nausea, vomiting. He denies any history of ulcers or diverticular disease. He denies shortness of breath and he is not coughing. Initial vital signs presentation to the emergency room are temperature 97.5, pulse rate 78, blood pressure 123/57, respiratory rate 16 and he was 94% saturated on room air and 99% saturated on a 2 L nasal cannula. White blood cell count at the senior care was 17.5 with 91% neutrophils. Hemoglobin was 8.5 and platelet count was 125,000. The BMP showed an elevated sodium of 148 with a potassium of 3.1, BUN of 76 and a creatinine of 2.35. Creatinine at discharge from the hospital was 2.71. Chest x-ray in the emergency room showed right mid and lower lung consolidation with pleural effusion which is essentially unchanged from the chest x-ray at discharge. Rectal exam revealed brown stool which was Hemoccult positive. The patient does have internal hemorrhoids and they are painful to palpate. Past Medical History Past Medical History (Chronic Problems): Chronic Problems Leg ulcer (Chronic) Lymphedema (Chronic) Pleural effusion, right (Chronic) Hypertension (Chronic) Stroke (Chronic) Hyperlipidemia (Chronic) Carotid artery disease (Chronic) Anemia of chronic kidney failure (Chronic) Cellulitis (Chronic) 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) Lymphedema of lower extremity (Chronic) Nephrolithiasis (Chronic) Gout (Chronic) CKD (chronic kidney disease), stage III (Chronic) BPH (benign prostatic hyperplasia) (Chronic) Anemia (Chronic) Chronic renal insufficiency, stage III (moderate) (Chronic) Arthritis (Chronic) Allergies No Known Allergies Allergy (Verified 10/08/18 17:01) Home Medications: Ambulatory Orders Medication Instructions Recorded Labetalol [Trandate (Beta Lily)] 200 mg PO BID 10/10/16 Aspirin E.C. [Ecotrin] 81 mg PO DAILY 08/14/18 Finasteride [Proscar] 5 mg PO DAILY 08/19/18 Acetaminophen [Tylenol Tablet] 650 mg PO Q6H PRN PRN tab 10/02/18 Albuterol Aerosols [Ventolin 2.5 mg INHALATION Q2H PRN PRN 10/02/18 Aerosols] vial.neb. Amoxicillin [Amoxil] 500 mg PO Q12H #14 cap 10/02/18 Magnesium Hydroxide [Milk Of 30 ml PO DAILY PRN udc 10/02/18 Magnesia] Allopurinol [Zyloprim] 300 mg PO DAILY 10/08/18 Apixaban [Eliquis] 2.5 mg PO BID 10/08/18 Epoetin Royer [Procrit] 10,000 units SC Q14D 10/08/18 Ergocalciferol [Vitamin D] 50,000 unit PO BURGOS 10/08/18 Furosemide [Lasix] 40 mg PO DAILY 10/08/18 Guaifenesin [Mucinex] 1,200 mg PO BID 10/08/18 Iron Polysaccharide Complex 150 mg PO DAILYCM 10/08/18 [Ferrex 150] Nutritional Supplement [Morales - 1 packet PO BIDCM 10/08/18 ORANGE FLAVOR] Pravastatin [Pravachol] 40 mg PO QHS 10/08/18 Surgical History: - - Bilateral carotid endarectomy Psychiatric History: No pertinent psych hx Lives: With Family, - - [facility] [place] Smoking Status: Never smoker Tobacco Use: Non-smoker Alcohol: Occasional Drugs: None - *Family History Paternal Family History: Family History (Last Reviewed 10/08/18 @ 21:06 by Chuy Abrams DO) Mother Hyperthyroidism Father Diabetes Aortic aneurysm rupture History Items: Diabetes Maternal Family History: Family History (Last Reviewed 10/08/18 @ 21:06 by Chuy Abrams DO) Mother Hyperthyroidism Father Diabetes Aortic aneurysm rupture History Items: Heart Disease Review of Systems Constitutional: Reports: Weakness. Denies: Anorexia, Chills, Fever Eyes: Denies: Blurred vision HEENT: Denies: Difficulty Swallowing, Head Aches, Sinus Congestion, Sinus Drainage, Sore Throat Cardiovascular: Denies: Chest Pain, Light Headedness, Palpitations Respiratory: Denies: Cough, Shortness of Breath Gastrointestinal: Reports: Diarrhea. Denies: Abdominal Pain, Nausea, Vomiting Genitourinary: Denies: Dysuria Musculoskeletal: Denies: Arm Pain, Muscle pain, Neck Pain Skin: Denies: Jaundice, Rash, Wounds Neurological: Denies: Slurred speech, Focal weakness Psychiatric: Denies: Anxiety, Depression, Homicidal Ideations, Suicidal Ideations Hematologic/ Lymphatic: Reports: Easy Bruising, Easy Bleeding VTE Information - Inpt Only VTE Present on Admission: No VTE Mechan Device Prophylaxis: SCD's, Knee High JEAN PAUL Hose Reason prophylaxis not ordered:: Treatment Not Indicated - he is on Eliquis for AF Patient Problems: Active and Suspected Problems Diarrhea (Acute) Hematochezia (Acute) Hypokalemia (Acute) - Physical Exam General: Alert, Oriented x3, Cooperative, No apparent distress HEENT: Atraumatic, PERRLA, EOMI, Normocephalic Oral: Moist Mucosa Neck: Supple, No JVD, Negative Carotid Bruits Lungs: No rhonchi, No wheeze, No rales, Diminished - on the right side 1/[address] up the posterior lung field, - - Not tachypneic, no conversational dyspnea, no accessory muscle use Cardiovascular: Normal S1, Normal S2, No murmurs, No Ectopic Activity, No rub noted, No Gallop, - - Patient is in atrial fibrillation with controlled ventricular response Abdomen: Bowel Sounds Present, Soft, Non Tender, - - Rectal exam showed good sphincter tone, positive internal hemorrhoids that were painful to palpate, brown stool in the rectum...... Hemoccult positive Extremities: No clubbing, No cyanosis, No Calf Tenderness, Edema - Pitting of both lower extremities Skin: No rashes, No breakdown Musculoskeletal: No Tenderness to Palpation of Joints or Extremities Neurological: Cranial nerves II-XII grossly intact, Neuro grossly intact Psych/Mental Status: Appropriate, Flat Affect Vital Signs Temp Pulse Resp BP Pulse Ox 98.5 F 69 18 138/60 H 100 10/08/18 19:23 10/08/18 19:23 10/08/18 19:23 10/08/18 19:23 10/08/18 19:23 Oxygen Flow Rate (L/min) 2 Oxygen Delivery Method Nasal Cannula Weight: 170 lb Body Mass Index (BMI) 25.8 Finger Stick Blood Glucose 122 Microbiology Past 72 Hours 10/08/18 17:40 Stool Occult Blood (ALDEN) - Final Stool Occult Blood Positive Laboratory Tests Past 24 Hrs 10/08/18 18:45 Urine Color Yellow Urine Clarity Sl. 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) Acute kidney injury superimposed on chronic kidney disease (Acute) Diarrhea (Acute) Hematochezia (Acute) Hypokalemia (Acute) Confusion (Acute) Atrial fibrillation with RVR (Resolved) Cellulitis of leg (Resolved) Delirium due to another medical condition (Resolved) HCAP (healthcare-associated pneumonia) (Resolved) Hyperkalemia (Resolved) Hypoxemia (Resolved) Metabolic encephalopathy (Resolved) Nonstaphylococcal scalded skin syndrome (Resolved) Pneumonia (Resolved) Rhabdomyolysis (Resolved) Sepsis (Resolved) Sepsis affecting skin (Resolved) Severe sepsis (Resolved) Staphylococcal scalded skin syndrome (Resolved) Wound infection (Resolved) Impressions 1. Diarrhea in a patient recently on multiple antibiotics. Stool is Hemoccult positive but patient has no abdominal pain, nausea or vomiting. Will workup for possible Clostridium difficile enterocolitis. He may just have bleeding hemorrhoids as his stool is brown and he has painful internal hemorrhoids. 2. Hypokalemia-will supplement 3. Hemoccult positive stool 4. Anemia of chronic disease 5. Acute renal failure on chronic renal failure stage III-we will consult nephrology at this time to evaluate this patient since he has not been evaluated in the recent past 6. History of CVA 7. PAF-rate controlled 8. Nephrolithiasis 9. Gout - need to consider that the Allopurinol may be causing some of the chronic anemia also due to BM suppression, herbert since the PLT's are low also 10. Hyperlipidemia 12. Hypertension 13. Carotid artery disease-status post endarterectomy 14. Chronic lymphedema of both lower extremities Admit to [facility] floor on telemetry Recheck lab in the a.m. Anusol HC suppositories twice daily Fecal leukocytes Enteric pathogen panel Enteric contact isolation Supplement potassium PT and OT Likely needs to go back to the senior care Code Visit Inpatient E&M: 19210 Init Hosp L2
[2018-10-08 20:54] VITALS: BMI 26.2
[2018-10-08 21:02] VITALS: PULSE 76
[2018-10-08 21:14] VITALS: BP 151/84; PULSE 73; RESP 18; TEMP 36.8; O2SAT 100
[2018-10-08] MEDS: APIXABAN 2.5 MG TABLET PO (21:50)
[2018-10-08] MEDS: Pravastatin 40 MG Tablet PO (21:50)
[2018-10-08] MEDS: AMOXICILLIN 500 MG CAPSULE PO (21:50)
[2018-10-08] MEDS: Labetalol 200 MG Tablet PO (21:50)
[2018-10-08] MEDS: guaiFENesin 1,200 MG Tablet 1200 MG PO (21:51)
[2018-10-08 23:15] VITALS: O2SAT 98
[2018-10-08] MEDS: Hydrocortisone 25 MG Suppository RECTAL (23:54)
[2018-10-09] VITALS (8 sets, daily range): BP systolic 108–156; BP diastolic 35–47; PULSE 59–80; RESP 16–18; TEMP 36.5–36.9; O2SAT 97–100
--- NOTE | 2018-10-09 00:28 | NURSING ---
This RN called the [facility] to obtain date of flu shot administration as pt reports getting it this season. [facility] unable to provide flu shot date of administration.
[2018-10-09 06:05] LABS: Hematocrit 27.4 % (40-54); Hemoglobin 8.1 g/dl (13.0-16.5); Mean Corp Hgb Conc 29.6 g/gl (32-36); Mean Corpuscular Hgb 28.3 pg (27.0-32.0); Mean Corpuscular Volume 95.8 fL (80-94); Mean Platelet Vol. 12.1 fl (6.2-12.0); Platelet Count 123 K/mm3 (150-450); RBC Distribution Width CV 14.4 % (11.6-14.6); RBC Distribution Width SD 47.6 fl (35.1-43.9); Red Blood Count 2.86 M/mm3 (4.6-6.2); White Blood Count 10.7 K/mm3 (4.4-11.0)
[2018-10-09 06:12] LABS: Scan Indicated on CBC? Y/N NO
[2018-10-09 06:23] LABS: ALB/GLOB Ratio 0.5 RATIO (0.9-2.4); AST(SGOT) 24 U/L (15-37); Alanine Aminotransfer ALT/SGPT 22 U/L (16-61); Albumin, Serum 1.4 g/dL (3.2-5.0); Alkaline Phosphatase 114 U/L (45-117); Anion Gap 6 (5-15); BUN 74 mg/dL (7-18); BUN/Creat Ratio 34.1 RATIO (10-20); Calcium,Total 8.3 mg/dL (8.5-10.1); Chloride 111 mmol/L (98-107); Creatinine, Serum 2.17 mg/dL (0.70-1.30); EST Glomerular Filtration Rate 31 mL/min (>60); Est Glom Filt Rate - Afr Amer 38 mL/min (>60); Estimated Creatinine Clearance 25.83 ml/min; Globulin 2.9 g/dL (2.2-4.2); Glucose 99 mg/dL (74-106); Phosphorus 4.1 mg/dL (2.5-4.9); Potassium 3.1 mmol/L (3.5-5.1); Protein, Total 4.3 g/dL (6.4-8.2); Sodium Level 148 mmol/L (136-145)
--- NOTE | 2018-10-09 07:31 | PCM.CONS.R ---
Problem List (1) Acute kidney injury superimposed on chronic kidney disease Status: Chronic (2) Hypernatremia Status: Acute (3) Hypokalemia Status: Acute Consultation - Renal PCP/ Referring MD: Requesting physician: [] Primary care physician: Vijay Mason MD - History of Present Illness History of Present Illness: The patient is a 83 year old M past medical history of CVA, chronic kidney disease stage III, hypertension, A. fib, hyperlipidemia, bilateral lymphedema, anemia, recent pneumonia with acute kidney injury from prerenal etiology during his last admission in July 2018. Patient was sent to [facility] [place] [facility] due to diarrhea. Stool test came back positive for blood. Patient was on antibiotics at the [place] [facility] for pneumonia treatment. Patient was admitted for possible C. difficile colitis infection. Renal team was consulted for worsening kidney function. During patient hospitalization in July 2018 patient had an AK I from prerenal . Creatinine peaked at 3.5 at that time creatinine improved with hydration to baseline 1.4. Earlier this months creatinine increased to 2.7. Patient presented with a creatinine 2.3. Creatinine today is better at 2.7. Patient was on Lasix 40 mg p.o. daily at the [place] [facility]. No NSAIDs used. No recent IV contrast exposure Review of system: 12 systems review is negative except for some diarrhea which is better than when he presented [] - Allergies Allergies: Allergies No Known Allergies Allergy (Verified 10/08/18 17:01) - Current Medications Current Medications: Current Medications Acetaminophen (Tylenol) 650 mg PO Q6H PRN PRN PRN Reason: Mild Pain (scale 0-3)/T>100.7 Albuterol Sulfate (Ventolin Aerosols) 2.5 mg INHALATION Q2H PRN PRN PRN Reason: sob/wheezing Allopurinol (Zyloprim) 300 mg PO DAILY [facility] Amoxicillin (Amoxil) 500 mg PO Q12 ANDRE Last Admin: 10/08/18 21:50 Dose: 500 mg Apixaban (Eliquis) 2.5 mg PO BID ANDRE Last Admin: 10/08/18 21:50 Dose: 2.5 mg Aspirin (Ecotrin) 81 mg PO DAILY [facility] Epoetin Royer (Procrit) 10,000 units SC Q14D ANDRE Ergocalciferol (Vitamin D) 50,000 unit PO BURGOS [facility] Finasteride (Proscar) 5 mg PO DAILY [facility] Furosemide (Lasix) 40 mg PO DAILY [facility] Guaifenesin (Mucinex) 1,200 mg PO BID [facility] Last Admin: 10/08/18 21:51 Dose: 1,200 mg Hydrocortisone Acetate (Anusol Hc) 25 mg RECTAL BID [facility] Stop: 10/11/18 10:01 Last Admin: 10/08/18 23:54 Dose: 25 mg Hydrocortisone Acetate (Anusol Hc) 25 mg RECTAL BID PRN PRN Labetalol HCl (Trandate) 200 mg PO BID [facility] Last Admin: 10/08/18 21:50 Dose: 200 mg Nutritional Formula (Morales - [place] Flavor) 1 packet PO BIDCM [facility] Nutritional Formula (Nepro Carb Steady) 120 ml PO 4X/DAY [facility] Polysaccharide Iron Complex (Ferrex 150) [facility] Potassium Chloride (K-Dur) [facility] meq [facility] Stop: 10/09/18 08:01 Last Admin: 10/08/18 21:50 Dose: 20 meq Pravastatin Sodium (Pravachol) 40 mg PO QHS [facility] Last Admin: 10/08/18 21:50 Dose: 40 mg Sodium Chloride () 5 - 15 ml IV UD PRN PRN Reason: SALINE FLUSH - Past Medical History Past Medical History (Chronic Problems): Chronic Problems Leg ulcer (Chronic) Lymphedema (Chronic) Pleural effusion, right (Chronic) Hypertension (Chronic) Stroke (Chronic) Hyperlipidemia (Chronic) Carotid artery disease (Chronic) Anemia of chronic kidney failure (Chronic) Acute kidney injury superimposed on chronic kidney disease (Chronic) Cellulitis (Chronic) 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) Lymphedema of lower extremity (Chronic) Nephrolithiasis (Chronic) Gout (Chronic) CKD (chronic kidney disease), stage III (Chronic) BPH (benign prostatic hyperplasia) (Chronic) Anemia (Chronic) Chronic renal insufficiency, stage III (moderate) (Chronic) Arthritis (Chronic) - Past Surgical History Surgical History: - - Bilateral carotid endarectomy - Social History Smoking Status: Never smoker Alcohol: Occasional Drugs: None - Family History Paternal Family History: Family History (Last Reviewed 10/08/18 @ 21:06 by Chuy Abrams DO) Mother Hyperthyroidism Father Diabetes Aortic aneurysm rupture History Items: Diabetes Maternal Family History: Family History (Last Reviewed 10/08/18 @ 21:06 by Chuy Abrams DO) Mother Hyperthyroidism Father Diabetes Aortic aneurysm rupture History Items: Heart Disease Patient Problems: Active and Suspected Problems Diarrhea (Acute) Hematochezia (Acute) Hypokalemia (Acute) Hypernatremia (Acute) Hypokalemia (Acute) - Physical Exam General: Alert, Oriented x3 HEENT: Atraumatic Oral: Moist Mucosa Neck: Supple, No JVD Lungs: Clear to auscultation, Normal air movement, No rhonchi Cardiovascular: Regular rate, Regular Rhythm Abdomen: Bowel Sounds Present, Soft, Non Tender Extremities: No clubbing, No cyanosis, - - +2 edema of lower extremities Musculoskeletal: No Tenderness to Palpation of Joints or Extremities Lymphatic: No Cervical, Supraclavicular, or Inguinal Adenopathy Neurological: Cranial nerves II-XII grossly intact Psych/Mental Status: Normal Affect Vital Signs Temp Pulse Resp BP Pulse Ox 98.5 F 66 16 120/43 L 98 10/09/18 03:14 10/09/18 07:20 10/09/18 03:14 10/09/18 03:14 10/09/18 03:14 Oxygen Flow Rate (L/min) 2 Oxygen Delivery Method Nasal Cannula Weight: 78.1 kg Body Mass Index (BMI) 25.8 Finger Stick Blood Glucose 122 Intake and Output for Last 24 Hours 10/07/18 10/08/18 10/09/18 23:59 23:59 23:59 Intake Total 300 / 300 200 / 200 Output Total 150 / 150 100 / 100 Balance 150 / 150 100 / 100 Microbiology Past 72 Hours 10/09/18 03:25 Stool Lactoferrin - Final Stool 10/08/18 17:40 Stool Occult Blood (ALDEN) - Final Stool Occult Blood Positive Laboratory Tests Past 24 Hrs 10/08/18 10/09/18 10/09/18 18:45 05:04 05:04 WBC 10.7 RBC 2.86 L Hgb 8.1 L Hct 27.4 L MCV 95.8 H MCH 28.3 MCHC 29.6 L RDW 14.4 RDW Differential 47.6 H Plt Count 123 L MPV 12.1 H Sodium 148 H Potassium 3.1 L Chloride 111 H Carbon Dioxide 31.0 Anion Gap 6 BUN 74 H Creatinine 2.17 H Estim Creat Clear Calc 25.83 Est GFR (MDRD) Af Amer 38 L Est GFR (MDRD) Non-Af 31 L BUN/Creatinine Ratio 34.1 H Glucose 99 Calcium 8.3 L Phosphorus 4.1 Magnesium 2.0 Total Bilirubin 0.40 AST 24 ALT 22 Alkaline Phosphatase 114 Total Protein 4.3 L Albumin 1.4 L Globulin 2.9 Albumin/Globulin Ratio 0.5 L Urine Color Yellow Urine Clarity Sl. 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) Acute kidney injury superimposed on chronic kidney disease (Acute) Diarrhea (Acute) Hematochezia (Acute) Hypokalemia (Acute) Hypernatremia (Acute) Hypokalemia (Acute) Confusion (Acute) Atrial fibrillation with RVR (Resolved) Cellulitis of leg (Resolved) Delirium due to another medical condition (Resolved) HCAP (healthcare-associated pneumonia) (Resolved) Hyperkalemia (Resolved) Hypoxemia (Resolved) Metabolic encephalopathy (Resolved) Nonstaphylococcal scalded skin syndrome (Resolved) Pneumonia (Resolved) Rhabdomyolysis (Resolved) Sepsis (Resolved) Sepsis affecting skin (Resolved) Severe sepsis (Resolved) Staphylococcal scalded skin syndrome (Resolved) Wound infection (Resolved) 1-kidney injury on chronic kidney disease. Baseline creatinine seems in 1.4 mg a deciliter Patient had acute kidney injury 2 months ago from prerenal. Creatinine improved to 1.4 with hydration. UA for this is benign. No hematuria no proteinuria. I am suspecting acute kidney injury at this time also due to prerenal from diarrhea and Lasix. Creatinine is slightly better today at 2.17. Diarrhea is better. I will continue the same dose of Lasix. I encourage p.o. intake. Avoid PATITO inhibitor/ARB. 2-hypernatremia. Most probably from free water loss and diarrhea and Lasix. Sodium is 148 we will continue to follow. 3-hypokalemia: From Lasix and diarrhea. We will replace with potassium chloride 40 mEq p.o. 1 time today. I will check magnesium and potassium tomorrow. 4-anemia: Continue Procrit every 2 weeks. Check iron profile 5-hypertension: Blood pressure is well controlled. Continue the same dose of labetalol 6-BPH: On Proscar. No urinary obstructive symptoms as per the patient. 7-diarrhea: Rule out C. difficile colitis. Will defer to the primary team. Thank you for the consult. Renal team will continue to follow
--- NOTE | 2018-10-09 07:35 | CON.PCM_ITS ---
Problem List (1) Acute kidney injury superimposed on chronic kidney disease Status: Chronic (2) Hypernatremia Status: Acute (3) Hypokalemia Status: Acute Consultation - Renal PCP/ Referring MD: Requesting physician: [] Primary care physician: Vijay Mason MD - History of Present Illness History of Present Illness: The patient is a 83 year old M past medical history of CVA, chronic kidney disease stage III, hypertension, A. fib, hyperlipidemia, bilateral lymphedema, anemia, recent pneumonia with acute kidney injury from prerenal etiology during his last admission in July 2018. [facility]. Stool test came back positive for blood. [facility]. Patient was admitted for possible C. difficile colitis infection. Renal team was consulted for worsening kidney function. During patient hospitalization in July 2018 patient had an AK I from prerenal . Creatinine peaked at 3.5 at that time creatinine improved with hydration to baseline 1.4. Earlier this months creatinine increased to 2.7. Patient presented with a creatinine 2.3. Creatinine today is better at 2.7. Patient was on Lasix 40 mg p.o. [facility]. No NSAIDs used. No recent IV contrast exposure Review of system: 12 systems review is negative except for some diarrhea which is better than when he presented [] - Allergies Allergies: Allergies No Known Allergies Allergy (Verified 10/08/18 17:01) - Current Medications Current Medications: Current Medications Acetaminophen (Tylenol) 650 mg PO Q6H PRN PRN PRN Reason: Mild Pain (scale 0-3)/T>100.7 Albuterol Sulfate (Ventolin Aerosols) 2.5 mg INHALATION Q2H PRN PRN PRN Reason: sob/wheezing Allopurinol (Zyloprim) 300 mg PO DAILY [facility] Amoxicillin (Amoxil) 500 mg PO Q12 ANDRE Last Admin: 10/08/18 21:50 Dose: 500 mg Apixaban (Eliquis) 2.5 mg PO BID ANDRE Last Admin: 10/08/18 21:50 Dose: 2.5 mg Aspirin (Ecotrin) 81 mg PO DAILY [facility] Epoetin Royer (Procrit) 10,000 units SC Q14D ANDRE Ergocalciferol (Vitamin D) 50,000 unit PO BURGOS [facility] Finasteride (Proscar) 5 mg PO DAILY [facility] Furosemide (Lasix) 40 mg PO DAILY [facility] Guaifenesin (Mucinex) 1,200 mg PO BID [facility] Last Admin: 10/08/18 21:51 Dose: 1,200 mg Hydrocortisone Acetate (Anusol Hc) 25 mg RECTAL BID [facility] Stop: 10/11/18 10:01 Last Admin: 10/08/18 23:54 Dose: 25 mg Hydrocortisone Acetate (Anusol Hc) 25 mg RECTAL BID PRN PRN Labetalol HCl (Trandate) 200 mg PO BID [facility] Last Admin: 10/08/18 21:50 Dose: 200 mg Nutritional Formula (Morales - [place] Flavor) 1 packet PO BIDCM [facility] Nutritional Formula (Nepro Carb Steady) 120 ml PO 4X/DAY [facility] Polysaccharide Iron Complex (Ferrex 150) [facility] Potassium Chloride (K-Dur) [facility] Stop: 10/09/18 08:01 Last Admin: 10/08/18 21:50 Dose: 20 meq Pravastatin Sodium (Pravachol) 40 mg PO QHS [facility] Last Admin: 10/08/18 21:50 Dose: 40 mg Sodium Chloride () 5 - 15 ml IV UD PRN PRN Reason: SALINE FLUSH - Past Medical History Past Medical History (Chronic Problems): Chronic Problems Leg ulcer (Chronic) Lymphedema (Chronic) Pleural effusion, right (Chronic) Hypertension (Chronic) Stroke (Chronic) Hyperlipidemia (Chronic) Carotid artery disease (Chronic) Anemia of chronic kidney failure (Chronic) Acute kidney injury superimposed on chronic kidney disease (Chronic) Cellulitis (Chronic) 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) Lymphedema of lower extremity (Chronic) Nephrolithiasis (Chronic) Gout (Chronic) CKD (chronic kidney disease), stage III (Chronic) BPH (benign prostatic hyperplasia) (Chronic) Anemia (Chronic) Chronic renal insufficiency, stage III (moderate) (Chronic) Arthritis (Chronic) - Past Surgical History Surgical History: - - Bilateral carotid endarectomy - Social History Smoking Status: Never smoker Alcohol: Occasional Drugs: None - Family History Paternal Family History: Family History (Last Reviewed 10/08/18 @ 21:06 by Chuy Abrams DO) Mother Hyperthyroidism Father Diabetes Aortic aneurysm rupture History Items: Diabetes Maternal Family History: Family History (Last Reviewed 10/08/18 @ 21:06 by Chuy Abrams DO) Mother Hyperthyroidism Father Diabetes Aortic aneurysm rupture History Items: Heart Disease Patient Problems: Active and Suspected Problems Diarrhea (Acute) Hematochezia (Acute) Hypokalemia (Acute) Hypernatremia (Acute) Hypokalemia (Acute) - Physical Exam General: Alert, Oriented x3 HEENT: Atraumatic Oral: Moist Mucosa Neck: Supple, No JVD Lungs: Clear to auscultation, Normal air movement, No rhonchi Cardiovascular: Regular rate, Regular Rhythm Abdomen: Bowel Sounds Present, Soft, Non Tender Extremities: No clubbing, No cyanosis, - - +2 edema of lower extremities Musculoskeletal: No Tenderness to Palpation of Joints or Extremities Lymphatic: No Cervical, Supraclavicular, or Inguinal Adenopathy Neurological: Cranial nerves II-XII grossly intact Psych/Mental Status: Normal Affect Vital Signs Temp Pulse Resp BP Pulse Ox 98.5 F 66 16 120/43 L 98 10/09/18 03:14 10/09/18 07:20 10/09/18 03:14 10/09/18 03:14 10/09/18 03:14 Oxygen Flow Rate (L/min) 2 Oxygen Delivery Method Nasal Cannula Weight: 78.1 kg Body Mass Index (BMI) 25.8 Finger Stick Blood Glucose 122 Intake and Output for Last 24 Hours 10/07/18 10/08/18 10/09/18 23:59 23:59 23:59 Intake Total 300 / 300 200 / 200 Output Total 150 / 150 100 / 100 Balance 150 / 150 100 / 100 Microbiology Past 72 Hours 10/09/18 03:25 Stool Lactoferrin - Final Stool 10/08/18 17:40 Stool Occult Blood (ALDEN) - Final Stool Occult Blood Positive Laboratory Tests Past 24 Hrs 10/08/18 10/09/18 10/09/18 18:45 05:04 05:04 WBC 10.7 RBC 2.86 L Hgb 8.1 L Hct 27.4 L MCV 95.8 H MCH 28.3 MCHC 29.6 L RDW 14.4 RDW Differential 47.6 H Plt Count 123 L MPV 12.1 H Sodium 148 H Potassium 3.1 L Chloride 111 H Carbon Dioxide 31.0 Anion Gap 6 BUN 74 H Creatinine 2.17 H Estim Creat Clear Calc 25.83 Est GFR (MDRD) Af Amer 38 L Est GFR (MDRD) Non-Af 31 L BUN/Creatinine Ratio 34.1 H Glucose 99 Calcium 8.3 L Phosphorus 4.1 Magnesium 2.0 Total Bilirubin 0.40 AST 24 ALT 22 Alkaline Phosphatase 114 Total Protein 4.3 L Albumin 1.4 L Globulin 2.9 Albumin/Globulin Ratio 0.5 L Urine Color Yellow Urine Clarity Sl. 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) Acute kidney injury superimposed on chronic kidney disease (Acute) Diarrhea (Acute) Hematochezia (Acute) Hypokalemia (Acute) Hypernatremia (Acute) Hypokalemia (Acute) Confusion (Acute) Atrial fibrillation with RVR (Resolved) Cellulitis of leg (Resolved) Delirium due to another medical condition (Resolved) HCAP (healthcare-associated pneumonia) (Resolved) Hyperkalemia (Resolved) Hypoxemia (Resolved) Metabolic encephalopathy (Resolved) Nonstaphylococcal scalded skin syndrome (Resolved) Pneumonia (Resolved) Rhabdomyolysis (Resolved) Sepsis (Resolved) Sepsis affecting skin (Resolved) Severe sepsis (Resolved) Staphylococcal scalded skin syndrome (Resolved) Wound infection (Resolved) 1-kidney injury on chronic kidney disease. Baseline creatinine seems in 1.4 mg a deciliter Patient had acute kidney injury 2 months ago from prerenal. Creatinine improved to 1.4 with hydration. UA for this is benign. No hematuria no proteinuria. I am suspecting acute kidney injury at this time also due to prerenal from diarrhea and Lasix. Creatinine is slightly better today at 2.17. Diarrhea is better. I will continue the same dose of Lasix. I encourage p.o. intake. Avoid PATITO inhibitor/ARB. 2-hypernatremia. Most probably from free water loss and diarrhea and Lasix. Sodium is 148 we will continue to follow. 3-hypokalemia: From Lasix and diarrhea. We will replace with potassium chloride 40 mEq p.o. 1 time today. I will check magnesium and potassium tomorrow. 4-anemia: Continue Procrit every 2 weeks. Check iron profile 5-hypertension: Blood pressure is well controlled. Continue the same dose of labetalol 6-BPH: On Proscar. No urinary obstructive symptoms as per the patient. 7-diarrhea: Rule out C. difficile colitis. Will defer to the primary team. Thank you for the consult. Renal team will continue to follow
[2018-10-09] MEDS: guaiFENesin 1,200 MG Tablet 1200 MG PO ×2 (08:33→21:17)
[2018-10-09] MEDS: APIXABAN 2.5 MG TABLET PO ×2 (08:33→21:17)
[2018-10-09] MEDS: Hydrocortisone 25 MG Suppository RECTAL ×2 (08:34→21:16)
[2018-10-09] MEDS: AMOXICILLIN 500 MG CAPSULE PO ×2 (08:34→21:16)
[2018-10-09] MEDS: Allopurinol 300 MG Tablet PO (08:34)
[2018-10-09] MEDS: Labetalol 200 MG Tablet PO ×2 (08:34→21:16)
[2018-10-09] MEDS: Finasteride 5 MG Tablet PO (08:34)
[2018-10-09] MEDS: Aspirin E.C. 81 MG Tablet PO (08:34)
[2018-10-09] MEDS: Furosemide 40 MG Tablet PO (08:34)
--- NOTE | 2018-10-09 10:28 | CASEMGMT ---
Addendum entered by Ora Loomis 10/09/18 10:46: Home number for son Demetri Gaytan is [phone]. SW attempted to call, no answer. Demetri's Virgie Carrasco, as per Evangelina, is also involved. SW also called her ([phone]), was able to reach her. She confirms that the plan is for pt to return to [facility] when ready. She states pt may say he wants to go home, and say that his grandson who lives with him can care for him. However, as per Virgie, pt's grandson can't provide 24 hour care. SW explained will speak to pt about this tomorrow. DAVID also asked Virgie about POA forms, Virgie states they were going to have an defense attorney come in but pt ended up in the hospital. Virgie asked about POA forms here in the hospital. DAVID explained that when pt is able, SW can speak to pt about completing POA/LW when pt is more awake. Virgie states this would be helpful. DAVID will continue to follow for POA/LW and for pt to return to [facility] when ready. DELTA Burgess, PSYCHOLOGIST CLINICAL Original Note: SW spoke w/ANATOLY, pt is here from [facility]. SW called [facility], confirmed w/Evangelina pt did come in from their facility. She spoke to daughter in law and it is anticipated pt will return there at discharge. As per Evangelina, the family plans to bring in an defense attorney into the facility to complete POA papers. Son and daughter in law have been involved w/pt there, daughter has not been in to see pt. SW attempted to call son, he did not answer cell phone and voicemail is full. DAVID faxed clinical updates to [facility] and also requested from Evangelina any additional numbers she may have for son or daughter in law. DAVID will continue to follow. DELTA Burgess, PSYCHOLOGIST CLINICAL
[2018-10-09 10:52] LABS: Urea Nitrogen, Urine 793 mg/dL (NO RANGE EST.)
--- NOTE | 2018-10-09 11:17 | CASEMGMT ---
Physician just let SW know that pt is saying he wants to go home from here. SW met w/pt, pt up in chair, does not appear to be feeling well. SW spoke w/pt initially about completing POA/LW forms. Pt states he is willing to complete the forms here, plans to make son POA. Pt not up for this today however, SW explained can come back tomorrow to assist pt with the forms. SW also asked pt about going to [facility], SW explained reviewed the therapy notes, and it does not appear pt is moving well enough to go home yet. Pt states he knows, he just does not want to go back to [facility]. Pt states he just sat all day. SW asked if he would be interested in going [facility] to [facility], pt states he would consider this. SW explained will find out about bed availability and let him know. SW called [facility], message left to call this SW back. SW will continue to follow. DELTA Burgess, [employer] MANAGER
--- NOTE | 2018-10-09 12:10 | PN_ITS ---
<An Platt - Last Filed: 10/09/18 12:10> Subjective: Patient seen and examined. No acute events overnight. Denies further diarrhea. Denies nausea, vomiting. - Physical Exam General: Alert, Oriented x3, Cooperative, No apparent distress HEENT: Atraumatic, PERRLA, EOMI, Normocephalic Oral: Moist Mucosa Neck: Supple, No JVD, Negative Carotid Bruits Lungs: Clear to auscultation, Diminished Cardiovascular: No murmurs, - - Atrial fibrillation, rate controlled Abdomen: Bowel Sounds Present, Soft, Non Tender, Non-Distended Extremities: No clubbing, No cyanosis, No edema, Capillary Refill Less than 3 Seconds Skin: No rashes, No breakdown Musculoskeletal: No Tenderness to Palpation of Joints or Extremities Neurological: Cranial nerves II-XII grossly intact, Neuro grossly intact Psych/Mental Status: Normal Affect, Appropriate Vital Signs Temp Pulse Resp BP Pulse Ox 98.3 F 66 18 108/44 L 100 10/09/18 08:12 10/09/18 08:12 10/09/18 08:12 10/09/18 08:12 10/09/18 08:12 Oxygen Flow Rate (L/min) 3 Oxygen Delivery Method Nasal Cannula Weight: 172 lb 2.896 oz Body Mass Index (BMI) 25.8 Finger Stick Blood Glucose 122 Intake and Output for Last 24 Hours 10/07/18 10/08/18 10/09/18 23:59 23:59 23:59 Intake Total 300 / 300 200 / 200 Output Total 150 / 150 100 / 100 Balance 150 / 150 100 / 100 Microbiology Past 72 Hours 10/09/18 03:25 Stool Lactoferrin - Final Stool 10/08/18 17:40 Stool Occult Blood (ALDEN) - Final Stool Occult Blood Positive Laboratory Tests Past 24 Hrs 10/08/18 10/09/18 10/09/18 18:45 05:04 05:04 WBC 10.7 RBC 2.86 L Hgb 8.1 L Hct 27.4 L MCV 95.8 H MCH 28.3 MCHC 29.6 L RDW 14.4 RDW Differential 47.6 H Plt Count 123 L MPV 12.1 H Sodium 148 H Potassium 3.1 L Chloride 111 H Carbon Dioxide 31.0 Anion Gap 6 BUN 74 H Creatinine 2.17 H Estim Creat Clear Calc 25.83 Est GFR (MDRD) Af Amer 38 L Est GFR (MDRD) Non-Af 31 L BUN/Creatinine Ratio 34.1 H Glucose 99 Calcium 8.3 L Phosphorus 4.1 Magnesium 2.0 Total Bilirubin 0.40 AST 24 ALT 22 Alkaline Phosphatase 114 Total Protein 4.3 L Albumin 1.4 L Globulin 2.9 Albumin/Globulin Ratio 0.5 L Urine Color Yellow Urine Clarity Sl. Cloudy Urine pH 5.0 Ur Specific [place] 1.015 Urine Protein Negative Urine Glucose (UA) Normal Urine Ketones Negative Urine Occult Blood Negative Urine Nitrite Negative Urine Bilirubin Negative Urine Urobilinogen Normal Ur Leukocyte Esterase 25 H Urine RBC 0 SEEN Urine WBC 0-5 SEEN Ur Squamous Epith Cells 0 SEEN Urine Bacteria 0 SEEN Fine Granular Casts 0-5 SEEN Urine Mucus 0 SEEN Urine Creatinine Urine Urea Nitrogen 10/09/18 10/09/18 10:20 10:20 WBC RBC Hgb Hct MCV MCH MCHC RDW RDW Differential Plt Count MPV Sodium Potassium Chloride Carbon Dioxide Anion Gap BUN Creatinine Estim Creat Clear Calc Est GFR (MDRD) Af Amer Est GFR (MDRD) Non-Af BUN/Creatinine Ratio Glucose Calcium Phosphorus Magnesium Total Bilirubin AST ALT Alkaline Phosphatase Total Protein Albumin Globulin Albumin/Globulin Ratio Urine Color Urine Clarity Urine pH Ur Specific [place] Urine Protein Urine Glucose (UA) Urine Ketones Urine Occult Blood Urine Nitrite Urine Bilirubin Urine Urobilinogen Ur Leukocyte Esterase Urine RBC Urine WBC Ur Squamous Epith Cells Urine Bacteria Fine Granular Casts Urine Mucus Urine Creatinine 88.30 Urine Urea Nitrogen 793 Medical Necessity - Tobacco Use Smoking Status: Never smoker Tobacco Use: Non-smoker Assessment/Plan 1. Acute on chronic renal failure stage III-Gentle IV fluids. Trend BMP. Nephrology following. Suspect prerenal from Lasix and diarrhea. 2. Diarrhea with Hemoccult positive stool-hemoglobin stable. +OB possibly due to hemorrhoids. Continue hydrocortisone rectal suppositories. Stool shows positive lactoferrin. Enteric bacteriology pending. C. difficile pending. Trend CBC. Diarrhea resolved. 3. Hypokalemia-improved per protocol, trend BMP. 4. Anemia of chronic disease, iron deficiency anemia-Baseline hemoglobin 8.5- 9.5. Prior iron studies showed iron deficiency. Continue iron supplementation. Trend CBC. On Procrit. 5. Paroxysmal atrial fibrillation-rate controlled. Continue Eliquis, labetalol. 6. History of CVA-continue Eliquis, statin. 7. Hypertension-stable, continue home labetalol regimen. 8. Hyperlipidemia-continue statin. 9. Carotid artery disease status post endarterectomy 10. Chronic lymphedema bilateral lower extremities-continue Lasix. Alan wraps bilateral lower extremities. 11. BPH-continue Proscar. 12. Recent discharge with streptococcal pneumonia and associated streptococcal bacteremia-amoxicillin course will be completed today. 13. History of dysphagia-ST eval. DVT prophylaxis-Eliquis. Discharge planning: Patient from [facility]. States he wishes to go home on discharge. Case management following. PT/OT eval. This patient was seen by IAN Calderon under the supervision of Dr. Canada. <Nanda Canada E - Last Filed: 10/09/18 12:25> - Physical Exam Vital Signs Temp Pulse Resp BP Pulse Ox 98.3 F 66 18 108/44 L 100 10/09/18 08:12 10/09/18 08:12 10/09/18 08:12 10/09/18 08:12 10/09/18 08:12 Oxygen Flow Rate (L/min) 3 Oxygen Delivery Method Nasal Cannula Weight: 172 lb 2.896 oz Body Mass Index (BMI) 25.8 Finger Stick Blood Glucose 122 Intake and Output for Last 24 Hours 10/07/18 10/08/18 10/09/18 23:59 23:59 23:59 Intake Total 300 / 300 200 / 200 Output Total 150 / 150 100 / 100 Balance 150 / 150 100 / 100 Microbiology Past 72 Hours 10/09/18 03:25 Stool Lactoferrin - Final Stool 10/08/18 17:40 Stool Occult Blood (ALDEN) - Final Stool Occult Blood Positive Laboratory Tests Past 24 Hrs 10/08/18 10/09/18 10/09/18 18:45 05:04 05:04 WBC 10.7 RBC 2.86 L Hgb 8.1 L Hct 27.4 L MCV 95.8 H MCH 28.3 MCHC 29.6 L RDW 14.4 RDW Differential 47.6 H Plt Count 123 L MPV 12.1 H Sodium 148 H Potassium 3.1 L Chloride 111 H Carbon Dioxide 31.0 Anion Gap 6 BUN 74 H Creatinine 2.17 H Estim Creat Clear Calc 25.83 Est GFR (MDRD) Af Amer 38 L Est GFR (MDRD) Non-Af 31 L BUN/Creatinine Ratio 34.1 H Glucose 99 Calcium 8.3 L Phosphorus 4.1 Magnesium 2.0 Total Bilirubin 0.40 AST 24 ALT 22 Alkaline Phosphatase 114 Total Protein 4.3 L Albumin 1.4 L Globulin 2.9 Albumin/Globulin Ratio 0.5 L Urine Color Yellow Urine Clarity Sl. Cloudy Urine pH 5.0 Ur Specific [place] 1.015 Urine Protein Negative Urine Glucose (UA) Normal Urine Ketones Negative Urine Occult Blood Negative Urine Nitrite Negative Urine Bilirubin Negative Urine Urobilinogen Normal Ur Leukocyte Esterase 25 H Urine RBC 0 SEEN Urine WBC 0-5 SEEN Ur Squamous Epith Cells 0 SEEN Urine Bacteria 0 SEEN Fine Granular Casts 0-5 SEEN Urine Mucus 0 SEEN Urine Creatinine Urine Urea Nitrogen 10/09/18 10/09/18 10:20 10:20 WBC RBC Hgb Hct MCV MCH MCHC RDW RDW Differential Plt Count MPV Sodium Potassium Chloride Carbon Dioxide Anion Gap BUN Creatinine Estim Creat Clear Calc Est GFR (MDRD) Af Amer Est GFR (MDRD) Non-Af BUN/Creatinine Ratio Glucose Calcium Phosphorus Magnesium Total Bilirubin AST ALT Alkaline Phosphatase Total Protein Albumin Globulin Albumin/Globulin Ratio Urine Color Urine Clarity Urine pH Ur Specific [place] Urine Protein Urine Glucose (UA) Urine Ketones Urine Occult Blood Urine Nitrite Urine Bilirubin Urine Urobilinogen Ur Leukocyte Esterase Urine RBC Urine WBC Ur Squamous Epith Cells Urine Bacteria Fine Granular Casts Urine Mucus Urine Creatinine 88.30 Urine Urea Nitrogen 793 Assessment/Plan Hospitalist note: I am seeing this patient in conjunction with An Platt. I independently seen and examined the patient. Progress note above, laboratory data and imaging studies reviewed and I concur with the above treatment plan. Today, patient mentioned that he had no bowel movement since he came in. Denied abdominal pain, nausea or vomiting. Denies chest pain or shortness of breath. He is afebrile, blood pressure and heart rate are stable, pulse ox is 100% on 2 L. - Physical Exam General: Alert, Oriented x3, Cooperative, No apparent distress. HEENT: Atraumatic, PERRLA, EOMI. Neck: Supple, No JVD, Negative Carotid Bruits, Trachea Midline, Thyroid Normal. Lungs: Decreased breath sounds on the right lung, rhonchi, no wheezes or cr ackles. Cardiovascular: Irregular rhythm, Normal S1, Normal S2, PMI Normal. Abdomen: Bowel Sounds Present, Soft, Non Tender, Non-Distended, No Hepato- splenomegaly. Extremities: No clubbing, No cyanosis, edema Skin: No rashes, No breakdown Neurological: Neuro grossly intact, cranial nerves are intact. Vital Signs are stable. Assessment and plan: #1 acute kidney injury W stage III chronic kidney disease: Secondary to diarrhea and dehydration. Recently, creatinine has been around 1.4 mg/dL. Admission creatinine was 2.35, came down to 1.7 today. Patient is on gentle IV fluids for hydration. Nephrology consulted. Plan to continue gentle IV fluids for hydration, repeat BMP tomorrow morning. #2 hypernatremia: Likely hypovolemic hypernatremia secondary to dehydration. Patient is on half-normal saline with potassium supplement. Plan to continue IV fluids, encourage oral intake, repeat BMP tomorrow morning. #3 hypokalemia: Secondary to diarrhea. Potassium is 3.1. Patient is on IV fl uids with potassium supplement, plan as above. #4 acute diarrheal illness: With reported bloody diarrhea, stool was positive for occult blood. Patient does have hemorrhoids. Stool studies are pending. Hemoglobin and hematocrit are stable. #5 distant history of healthcare associated pneumonia: Patient was discharged from the hospital recently. Continue amoxicillin. #6 chronic anemia: Due to anemia of chronic disease. Baseline hemoglobin has been around 8-9 g/dL. Today's hemoglobin is 8.1 g/dL. Plan to repeat CBC tomorrow morning, transfuse if hemoglobin less than 8 g/dL. #6 other chronic medical problems: Stable, continue current medications as above. Code Visit Inpatient E&M: 47260 Subs Hosp L2
[2018-10-09] MEDS: 0.9% NaCl Peripheral Flush Adult/Peds IV ×2 (12:52→21:16)
[2018-10-09] MEDS: Iron Polysaccharide Complex 150 MG CAPSULE PO (12:52)
--- NOTE | 2018-10-09 14:02 | NURSING ---
wound photo: left posterior lower leg
--- NOTE | 2018-10-09 14:02 | NURSING ---
wound photo: heydi cleft/buttocks
[2018-10-09] MEDS: Menthol/Lanolin/Calamine/Znox 113 GM Tube 1 APPLIC TOPICAL ×2 (17:11→21:17)
--- NOTE | 2018-10-09 18:09 | NURSING ---
pt daughter visited this afternoon, wanted RN to pass along to social psychologist that if pt is not able to go to TCU on DC, they would like to look at [facility]. left message for Ora.
--- NOTE | 2018-10-09 19:37 | CT_ITS ---
STUDY: CT ABDOMEN AND PELVIS WITHOUT CONTRAST REASON FOR EXAM: Male, 83 years old. Large right flank mass RADIATION DOSAGE (If Supplied By Facility): CTDIvol = ( 20.47 ) mGy, DLP = ( 1263.61 ) mGycm TECHNIQUE: Transaxial images were obtained from the dome of the diaphragm to the symphysis pubis without oral contrast, and without intravenous contrast. Sagittal and coronal images were reconstructed. Individualized dose optimization techniques were used for this CT. COMPARISON: May 07, 2017 FINDINGS: Right mid and bilateral lower lung airspace opacities. Moderate left pleural effusion. Large right pleural effusion with loculation. Coronary artery calcifications. Normal liver. Normal gallbladder and extrahepatic biliary system. Normal spleen. Normal pancreas. Normal bilateral adrenal glands. There is 1.1 cm stone in the lower pole of the right kidney. There is 0.3 cm stones in the midpole. There are multiple 0.4 to 0.5 cm stones in the right renal pelvis. There is mild right hydronephrosis. Normal left kidney. Normal visualized stomach. Normal small intestine. Mild diffuse wall thickening of the colon. The appendix is visualized and appears normal. Normal abdominal aorta. Normal inferior vena cava. Normal retroperitoneum. Normal urinary bladder. There are prostatic calcifications. Mild free fluid in the abdomen and pelvis. Subcutaneous edema of the right lateral abdominal wall. There are diffuse degenerative changes of the visualized lumbar spine. Arthritic change of the hips. CT/Abdomen/Pelvis without Cont IMPRESSION: Right renal stones with hydronephrosis. Colitis with wall thickening could be infectious or inflammatory. No obstruction. Large loculated right pleural effusion. Moderate left pleural effusion. Bilateral lower lung consolidation. Subcutaneous edema of the right lateral abdominal wall. No dominant mass. Electronically Signed: Baltazar Linder MD at 21:28 EST , Service support ,
[2018-10-09] MEDS: Pravastatin 40 MG Tablet PO (21:16)
[2018-10-10] VITALS (7 sets, daily range): BP systolic 109–185; BP diastolic 39–77; PULSE 66–96; RESP 18–20; TEMP 36.4–37.1; O2SAT 93–97
[2018-10-10] MEDS: 0.9% NaCl Peripheral Flush Adult/Peds IV ×2 (00:22→11:08)
[2018-10-10 06:17] LABS: Absolute Lymphocyte Count 0.42 X10^3/ul (0.83-4.51); Absolute Neutrophil Count 7.5 X10^3/uL (2.0-7.7); Basophil# 0.01 X10^3/uL; Basophil% 0.1 % (0-1); Eosinophil# 0.06 X10^3/uL; Eosinophils% 0.7 % (0-5); Hematocrit 30.5 % (40-54); Hemoglobin 8.7 g/dl (13.0-16.5); Lymphocyte # 0.42 X10^3/ul (4.0); Lymphocyte % 5.1 % (19-41); Mean Corp Hgb Conc 28.5 g/gl (32-36); Mean Corpuscular Hgb 27.6 pg (27.0-32.0); Mean Corpuscular Volume 96.8 fL (80-94); Mean Platelet Vol. 11.4 fl (6.2-12.0); Monocyte# 0.29 X10^3/uL; Monocyte% 3.5 % (0-10); Neutrophil # 7.49 X10^3/uL (2.7-7.7); Neutrophil % 90.5 % (47-70); Platelet Count 123 K/mm3 (150-450); RBC Distribution Width CV 14.5 % (11.6-14.6); RBC Distribution Width SD 48.1 fl (35.1-43.9); Red Blood Count 3.15 M/mm3 (4.6-6.2); White Blood Count 8.3 K/mm3 (4.4-11.0)
[2018-10-10 06:19] LABS: Differential Indicated SCAN CRITERIA MET; POSITIVE COUNT NO; POSITIVE DIFFERENTIAL YES; POSITIVE MORPHOLOGY NO
[2018-10-10 06:26] LABS: Anion Gap 6 (5-15); BUN 73 mg/dL (7-18); BUN/Creat Ratio 32.9 RATIO (10-20); Calcium,Total 8.3 mg/dL (8.5-10.1); Chloride 114 mmol/L (98-107); Creatinine, Serum 2.22 mg/dL (0.70-1.30); EST Glomerular Filtration Rate 30 mL/min (>60); Est Glom Filt Rate - Afr Amer 37 mL/min (>60); Estimated Creatinine Clearance 25.25 ml/min; Glucose 107 mg/dL (74-106); Potassium 4.1 mmol/L (3.5-5.1); Sodium Level 150 mmol/L (136-145)
--- NOTE | 2018-10-10 08:00 | PCM.PROGNOTE ---
Subjective: Chief complaint: Follow-up after admission for acute kidney injury, stage III chronic kidney disease, hyponatremia, C. difficile colitis, right kidney stone with hydronephrosis. Patient seen and examined. No acute events overnight. Today, he denies any complaints. Denies any worsening shortness of breath. Denied abdominal pain, nausea vomiting. According to him, he had a normal bowel movement today, no blood in the stool. Denies fever chills. Denied chest pain, palpitation, dizziness or lightheadedness. His pulse ox has been maintained on 2 L, he is afebrile, blood pressure and heart rate are maintained. - Physical Exam General: Alert, Oriented x3, Cooperative, No apparent distress HEENT: Atraumatic, PERRLA, EOMI, Normocephalic Oral: Moist Mucosa, No Gingival or Mucosal Lesions/ Ulcerations Neck: Supple, No JVD, Negative Carotid Bruits, Trachea Midline, Thyroid Normal Size and Texture Lungs: No wheeze, Diminished, Rales, Rhonchi, - - Decreased sounds bilateral, more on the right base, coarse crackles basally, scattered rhonchi. Cardiovascular: Normal S1, Normal S2, No murmurs, Irregular Rate Abdomen: Bowel Sounds Present, Soft, Non Tender, Non-Distended, No Hepato-splenomegaly, - - Subcutaneous edema on the right flank region. Extremities: No clubbing, No cyanosis, Edema Skin: No rashes, No breakdown Lymphatic: No Cervical, Supraclavicular, or Inguinal Adenopathy Neurological: Cranial nerves II-XII grossly intact, Neuro grossly intact Psych/Mental Status: Normal Affect, Appropriate, Alert and oriented to time, place, person, mood and affect Vital Signs Temp Pulse Resp BP Pulse Ox 98.7 F 68 20 H 121/47 H 95 10/10/18 03:09 10/10/18 03:09 10/10/18 03:09 10/10/18 03:09 10/10/18 03:09 Oxygen Flow Rate (L/min) 2 Oxygen Delivery Method Nasal Cannula Weight: 172 lb 2.896 oz Body Mass Index (BMI) 25.8 Finger Stick Blood Glucose 122 Intake and Output for Last 24 Hours 10/08/18 10/09/18 10/10/18 23:59 23:59 23:59 Intake Total 300 / 300 813 / 813 626 / 626 Output Total 150 / 150 250 / 250 Balance 150 / 150 563 / 563 626 / 626 Microbiology Past 72 Hours 10/09/18 03:25 Enteric Bacteriology - Final Interface Orders 10/09/18 03:25 C. difficile DNA Amplification - Final Stool Toxigenic C. difficile DNA 10/09/18 03:25 Stool Lactoferrin - Final Stool 10/08/18 17:40 Stool Occult Blood (ALDEN) - Final Stool Occult Blood Positive Laboratory Tests Past 24 Hrs 10/09/18 10/09/18 10/10/18 10:20 10:20 05:50 WBC 8.3 RBC 3.15 L Hgb 8.7 L Hct 30.5 L MCV 96.8 H MCH 27.6 MCHC 28.5 L RDW 14.5 RDW Differential 48.1 H Plt Count 123 L MPV 11.4 Immature Gran % (Auto) 0.100 Neut % (Auto) 90.5 H Lymph % (Auto) 5.1 L [place] % (Auto) 3.5 Eos % (Auto) 0.7 Baso % (Auto) 0.1 Absolute Neuts (auto) 7.5 Absolute Lymphs (auto) 0.42 L Total Counted Not Reportable Sodium Potassium Chloride Carbon Dioxide Anion Gap BUN Creatinine Estim Creat Clear Calc Est GFR (MDRD) Af Amer Est GFR (MDRD) Non-Af BUN/Creatinine Ratio Glucose Calcium Magnesium Urine Creatinine 88.30 Urine Urea Nitrogen 793 10/10/18 05:50 WBC RBC Hgb Hct MCV MCH MCHC RDW RDW Differential Plt Count MPV Immature Gran % (Auto) Neut % (Auto) Lymph % (Auto) [place] % (Auto) Eos % (Auto) Baso % (Auto) Absolute Neuts (auto) Absolute Lymphs (auto) Total Counted Sodium 150 H Potassium 4.1 Chloride 114 H Carbon Dioxide 30.0 Anion Gap 6 BUN 73 H Creatinine 2.22 H Estim Creat Clear Calc 25.25 Est GFR (MDRD) Af Amer 37 L Est GFR (MDRD) Non-Af 30 L BUN/Creatinine Ratio 32.9 H Glucose 107 H Calcium 8.3 L Magnesium 2.0 Urine Creatinine Urine Urea Nitrogen Clinical Impression(s) from Imaging Studies Chest X-Ray 10/08/18 17:35 IMPRESSION: Right mid and lower lung consolidation and pleural effusion. Electronically Signed: Baltazar Linder MD at 17:50 EST , Service support , Abdomen/Pelvis CT 10/09/18 19:37 IMPRESSION: Right renal stones with hydronephrosis. Colitis with wall thickening could be infectious or inflammatory. No obstruction. Large loculated right pleural effusion. Moderate left pleural effusion. Bilateral lower lung consolidation. Subcutaneous edema of the right lateral abdominal wall. No dominant mass. Electronically Signed: Baltazar Linder MD at 21:28 EST , Service support , Medical Necessity - Tobacco Use Smoking Status: Never smoker Tobacco Use: Non-smoker Assessment/Plan This is an 83 years old male patient was sent to the ED because of abnormal labs namely leukocytosis, anemia and hypokalemia as well as weakness, diarrhea and functional decline, found to have acute kidney injury, stage III chronic kidney disease, C. difficile colitis, hyponatremia and hypokalemia. #1 acute kidney injury on top of stage III chronic kidney disease: Prerenal secondary to diarrhea and Lasix. Patient has been on gentle IV fluids for hydration but his kidney function continued to worsen. Today's creatinine went up 2.22, slightly up from yesterday. Urine output is not suspected. CT scan abdomen and pelvis done last night and revealed a right kidney stone with hydronephrosis. Urology consulted, stated that there is nonobstructing right kidney stone and without evidence of obstructive uropathy. Recommended no need for intervention at this time. Nephrology on the case. Plan: Change IV fluids to D5 water, gentle hydration, avoid nephrotoxic drugs, repeat CBC and BMP tomorrow morning. #2 acute C. difficile colitis: Started on oral vancomycin. Patient stated that he had normal bowel movement last night, no blood in the stool. Denied abdominal pain, no fever or chills. Plan to continue same treatment. #3 hypernatremia: Seems to be hypovolemic hypernatremia. Serum sodium still going up, it is 150 today. Plan as above to change IV fluids to D5 water, repeat BMP tomorrow morning. #4 hypokalemia: Potassium replaced and corrected, today's potassium is 4.1. #5 recent history of streptococcal healthcare associated pneumonia/streptococcal bacteremia: Patient was discharged on October 02, 2018 on amoxicillin for 7 additional days from that day which was completed yesterday. She has been afebrile, pulse ox has been stable on 2 L of oxygen. Plan is to DC amoxicillin. #6 chronic anemia: Normocytic anemia secondary to anemia of chronic disease. Hemoglobin has been around 8-9 g/dL. Today's hemoglobin is 8.7 g/dL, stable at baseline, no indication for transfusion. #7 paroxysmal atrial fibrillation: Rate is stable, blood pressure stable, continue labetalol for rate control, continue Eliquis for anticoagulation. #8 hypertension: Blood pressure stable, continue labetalol. #9 history of CVA: Continue Eliquis and aspirin as well as statins. #10 benign prostatic hypertrophy: Continue Proscar. #11 DVT prophylaxis: Continue Eliquis. This note was generated with [employer] dictation software. It may contain incorrect words, spelling, and punctuation that were not noted in checking the note before signing. Code Visit Inpatient E&M: 09164 [facility] Hosp L3
--- NOTE | 2018-10-10 08:03 | PN_ITS ---
Subjective: Chief complaint: Follow-up after admission for acute kidney injury, stage III chronic kidney disease, hyponatremia, C. difficile colitis, right kidney stone with hydronephrosis. Patient seen and examined. No acute events overnight. Today, he denies any complaints. Denies any worsening shortness of breath. Denied abdominal pain, nausea vomiting. According to him, he had a normal bowel movement today, no blood in the stool. Denies fever chills. Denied chest pain, palpitation, dizziness or lightheadedness. His pulse ox has been maintained on 2 L, he is afebrile, blood pressure and heart rate are maintained. - Physical Exam General: Alert, Oriented x3, Cooperative, No apparent distress HEENT: Atraumatic, PERRLA, EOMI, Normocephalic Oral: Moist Mucosa, No Gingival or Mucosal Lesions/ Ulcerations Neck: Supple, No JVD, Negative Carotid Bruits, Trachea Midline, Thyroid Normal Size and Texture Lungs: No wheeze, Diminished, Rales, Rhonchi, - - Decreased sounds bilateral, more on the right base, coarse crackles basally, scattered rhonchi. Cardiovascular: Normal S1, Normal S2, No murmurs, Irregular Rate Abdomen: Bowel Sounds Present, Soft, Non Tender, Non-Distended, No Hepato- splenomegaly, - - Subcutaneous edema on the right flank region. Extremities: No clubbing, No cyanosis, Edema Skin: No rashes, No breakdown Lymphatic: No Cervical, Supraclavicular, or Inguinal Adenopathy Neurological: Cranial nerves II-XII grossly intact, Neuro grossly intact Psych/Mental Status: Normal Affect, Appropriate, Alert and oriented to time, place, person, mood and affect Vital Signs Temp Pulse Resp BP Pulse Ox 98.7 F 68 20 H 121/47 H 95 10/10/18 03:09 10/10/18 03:09 10/10/18 03:09 10/10/18 03:09 10/10/18 03:09 Oxygen Flow Rate (L/min) 2 Oxygen Delivery Method Nasal Cannula Weight: 172 lb 2.896 oz Body Mass Index (BMI) 25.8 Finger Stick Blood Glucose 122 Intake and Output for Last 24 Hours 10/08/18 10/09/18 10/10/18 23:59 23:59 23:59 Intake Total 300 / 300 813 / 813 626 / 626 Output Total 150 / 150 250 / 250 Balance 150 / 150 563 / 563 626 / 626 Microbiology Past 72 Hours 10/09/18 03:25 Enteric Bacteriology - Final Interface Orders 10/09/18 03:25 C. difficile DNA Amplification - Final Stool Toxigenic C. difficile DNA 10/09/18 03:25 Stool Lactoferrin - Final Stool 10/08/18 17:40 Stool Occult Blood (ALDEN) - Final Stool Occult Blood Positive Laboratory Tests Past 24 Hrs 10/09/18 10/09/18 10/10/18 10:20 10:20 05:50 WBC 8.3 RBC 3.15 L Hgb 8.7 L Hct 30.5 L MCV 96.8 H MCH 27.6 MCHC 28.5 L RDW 14.5 RDW Differential 48.1 H Plt Count 123 L MPV 11.4 Immature Gran % (Auto) 0.100 Neut % (Auto) 90.5 H Lymph % (Auto) 5.1 L [place] % (Auto) 3.5 Eos % (Auto) 0.7 Baso % (Auto) 0.1 Absolute Neuts (auto) 7.5 Absolute Lymphs (auto) 0.42 L Total Counted Not Reportable Sodium Potassium Chloride Carbon Dioxide Anion Gap BUN Creatinine Estim Creat Clear Calc Est GFR (MDRD) Af Amer Est GFR (MDRD) Non-Af BUN/Creatinine Ratio Glucose Calcium Magnesium Urine Creatinine 88.30 Urine Urea Nitrogen 793 10/10/18 05:50 WBC RBC Hgb Hct MCV MCH MCHC RDW RDW Differential Plt Count MPV Immature Gran % (Auto) Neut % (Auto) Lymph % (Auto) [place] % (Auto) Eos % (Auto) Baso % (Auto) Absolute Neuts (auto) Absolute Lymphs (auto) Total Counted Sodium 150 H Potassium 4.1 Chloride 114 H Carbon Dioxide 30.0 Anion Gap 6 BUN 73 H Creatinine 2.22 H Estim Creat Clear Calc 25.25 Est GFR (MDRD) Af Amer 37 L Est GFR (MDRD) Non-Af 30 L BUN/Creatinine Ratio 32.9 H Glucose 107 H Calcium 8.3 L Magnesium 2.0 Urine Creatinine Urine Urea Nitrogen Clinical Impression(s) from Imaging Studies Chest X-Ray 10/08/18 17:35 IMPRESSION: Right mid and lower lung consolidation and pleural effusion. Electronically Signed: Baltazar Linder MD at 17:50 EST , Service support , Abdomen/Pelvis CT 10/09/18 19:37 IMPRESSION: Right renal stones with hydronephrosis. Colitis with wall thickening could be infectious or inflammatory. No obstruction. Large loculated right pleural effusion. Moderate left pleural effusion. Bilateral lower lung consolidation. Subcutaneous edema of the right lateral abdominal wall. No dominant mass. Electronically Signed: Baltazar Linder MD at 21:28 EST , Service support , Medical Necessity - Tobacco Use Smoking Status: Never smoker Tobacco Use: Non-smoker Assessment/Plan This is an 83 years old male patient was sent to the ED because of abnormal labs namely leukocytosis, anemia and hypokalemia as well as weakness, diarrhea and functional decline, found to have acute kidney injury, stage III chronic kidney disease, C. difficile colitis, hyponatremia and hypokalemia. #1 acute kidney injury on top of stage III chronic kidney disease: Prerenal secondary to diarrhea and Lasix. Patient has been on gentle IV fluids for hydration but his kidney function continued to worsen. Today's creatinine went up 2.22, slightly up from yesterday. Urine output is not suspected. CT scan abdomen and pelvis done last night and revealed a right kidney stone with hydronephrosis. Urology consulted, stated that there is nonobstructing right kidney stone and without evidence of obstructive uropathy. Recommended no need for intervention at this time. Nephrology on the case. Plan: Change IV fluids to D5 water, gentle hydration, avoid nephrotoxic drugs, repeat CBC and BMP tomorrow morning. #2 acute C. difficile colitis: Started on oral vancomycin. Patient stated that he had normal bowel movement last night, no blood in the stool. Denied abdominal pain, no fever or chills. Plan to continue same treatment. #3 hypernatremia: Seems to be hypovolemic hypernatremia. Serum sodium still going up, it is 150 today. Plan as above to change IV fluids to D5 water, repeat BMP tomorrow morning. #4 hypokalemia: Potassium replaced and corrected, today's potassium is 4.1. #5 recent history of streptococcal healthcare associated pneumonia/streptococcal bacteremia: Patient was discharged on October 02, 2018 on amoxicillin for 7 additional days from that day which was completed yesterday. She has been afebrile, pulse ox has been stable on 2 L of oxygen. Plan is to DC amoxicillin. #6 chronic anemia: Normocytic anemia secondary to anemia of chronic disease. Hemoglobin has been around 8-9 g/dL. Today's hemoglobin is 8.7 g/dL, stable at baseline, no indication for transfusion. #7 paroxysmal atrial fibrillation: Rate is stable, blood pressure stable, continue labetalol for rate control, continue Eliquis for anticoagulation. #8 hypertension: Blood pressure stable, continue labetalol. #9 history of CVA: Continue Eliquis and aspirin as well as statins. #10 benign prostatic hypertrophy: Continue Proscar. #11 DVT prophylaxis: Continue Eliquis. This note was generated with Gro dictation software. It may contain incorrect words, spelling, and punctuation that were not noted in checking the note before signing. Code Visit Inpatient E&M: 35292 [facility] Hosp L3
--- NOTE | 2018-10-10 08:03 | PCM.CONS.U ---
Reason for Consult Date of Consultation: 10/10/18 Reason for Consultation: kidney stone History of Present Illness: The patient is a 83 year old Male in [facility] admitted with multiple medical problems and as a non obstructive stone recommend observation. Past Medical History Past Medical History (Chronic Problems): Chronic Problems Leg ulcer (Chronic) Lymphedema (Chronic) Pleural effusion, right (Chronic) Hypertension (Chronic) Stroke (Chronic) Hyperlipidemia (Chronic) Carotid artery disease (Chronic) Anemia of chronic kidney failure (Chronic) Lymphedema of lower extremity (Chronic) Nephrolithiasis (Chronic) Gout (Chronic) CKD (chronic kidney disease), stage III (Chronic) BPH (benign prostatic hyperplasia) (Chronic) Allergies No Known Allergies Allergy (Verified 10/08/18 17:01) Home Medications: Ambulatory Orders Medication Instructions Recorded Labetalol [Trandate (Beta Lily)] 200 mg PO BID 10/10/16 Aspirin E.C. [Ecotrin] 81 mg PO DAILY 08/14/18 Finasteride [Proscar] 5 mg PO DAILY 08/19/18 Acetaminophen [Tylenol Tablet] 650 mg PO Q6H PRN PRN tab 10/02/18 Albuterol Aerosols [Ventolin 2.5 mg INHALATION Q2H PRN PRN 10/02/18 Aerosols] vial.neb. Amoxicillin [Amoxil] 500 mg PO Q12H #14 cap 10/02/18 Magnesium Hydroxide [Milk Of 30 ml PO DAILY PRN udc 10/02/18 Magnesia] Allopurinol [Zyloprim] 300 mg PO DAILY 10/08/18 Apixaban [Eliquis] 2.5 mg PO BID 10/08/18 Epoetin Royer [Procrit] 10,000 units SC Q14D 10/08/18 Ergocalciferol [Vitamin D] 50,000 unit PO BURGOS 10/08/18 Furosemide [Lasix] 40 mg PO DAILY 10/08/18 Guaifenesin [Mucinex] 1,200 mg PO BID 10/08/18 Iron Polysaccharide Complex 150 mg PO DAILYCM 10/08/18 [Ferrex 150] Nutritional Supplement [Morales - 1 packet PO BIDCM 10/08/18 ORANGE FLAVOR] Pravastatin [Pravachol] 40 mg PO QHS 10/08/18 Surgical History: - - Bilateral carotid endarectomy Lives: With Family, - - currently living at the [place] Smoking Status: Never smoker Tobacco Use: Non-smoker Alcohol: Occasional Drugs: None - *Family History Paternal Family History: Family History (Last Reviewed 10/08/18 @ 21:06 by Chuy Abrams DO) Mother Hyperthyroidism Father Diabetes Aortic aneurysm rupture History Items: Diabetes Maternal Family History: Family History (Last Reviewed 10/08/18 @ 21:06 by Chuy Abrams DO) Mother Hyperthyroidism Father Diabetes Aortic aneurysm rupture History Items: Heart Disease Physical Exam - Physical Exam Vital Signs Temp 98.7 F 10/10/18 03:09 Pulse 68 10/10/18 03:09 Resp 20 H 10/10/18 03:09 BP 121/47 H 10/10/18 03:09 Pulse Ox 95 10/10/18 03:09 Intake & Output 10/08/18 10/09/18 10/10/18 23:59 23:59 23:59 Intake Total 300 / 300 813 / 813 626 / 626 Output Total 150 / 150 250 / 250 Balance 150 / 150 563 / 563 626 / 626 Weight: 78.1 kg 78.1 kg Intake: Oral 300 / 300 480 / 480 270 / 270 IV fluid/meds 333 / 333 356 / 356 Output: Urine 150 / 150 250 / 250 Other: Number of times incontinent 1 Incontinent Amount Moderate Number of Bowel Movements 2 General: Alert HEENT: Atraumatic Neck: Supple Lungs: Normal air movement Microbiology Past 72 Hours 10/09/18 03:25 Enteric Bacteriology - Final Interface Orders 10/09/18 03:25 C. difficile DNA Amplification - Final Stool Toxigenic C. difficile DNA 10/09/18 03:25 Stool Lactoferrin - Final Stool 10/08/18 17:40 Stool Occult Blood (ALDEN) - Final Stool Occult Blood Positive Laboratory Tests Past 24 Hrs 10/09/18 10/09/18 10/10/18 10:20 10:20 05:50 WBC 8.3 RBC 3.15 L Hgb 8.7 L Hct 30.5 L MCV 96.8 H MCH 27.6 MCHC 28.5 L RDW 14.5 RDW Differential 48.1 H Plt Count 123 L MPV 11.4 Immature Gran % (Auto) 0.100 Neut % (Auto) 90.5 H Lymph % (Auto) 5.[address] [place] % (Auto) 3.5 Eos % (Auto) 0.7 Baso % (Auto) 0.1 Absolute Neuts (auto) 7.5 Absolute Lymphs (auto) 0.42 L Total Counted Not Reportable Sodium Potassium Chloride Carbon Dioxide Anion Gap BUN Creatinine Estim Creat Clear Calc Est GFR (MDRD) Af Amer Est GFR (MDRD) Non-Af BUN/Creatinine Ratio Glucose Calcium Magnesium Urine Creatinine 88.30 Urine Urea Nitrogen 793 10/10/18 05:50 WBC RBC Hgb Hct MCV MCH MCHC RDW RDW Differential Plt Count MPV Immature Gran % (Auto) Neut % (Auto) Lymph % (Auto) [place] % (Auto) Eos % (Auto) Baso % (Auto) Absolute Neuts (auto) Absolute Lymphs (auto) Total Counted Sodium 150 H Potassium 4.1 Chloride 114 H Carbon Dioxide 30.0 Anion Gap 6 BUN 73 H Creatinine 2.22 H Estim Creat Clear Calc 25.25 Est GFR (MDRD) Af Amer 37 L Est GFR (MDRD) Non-Af 30 L BUN/Creatinine Ratio 32.9 H Glucose 107 H Calcium 8.3 L Magnesium 2.0 Urine Creatinine Urine Urea Nitrogen Assessment/Plan stone in right kidney no obstruction no hydro for now recommend observation call with questions.
--- NOTE | 2018-10-10 09:36 | CASEMGMT ---
Addendum entered by Ora Loomis 10/10/18 12:20: Pt is not ready for discharge today, SW left Reema a message in TCU to let her know. SW spoke w/pt, let him know TCU would have a bed for him, pt is agreeable to go there at discharge. SW explained to pt that he will need to participate in therapy there(as he did not fully participate today) in order for insurance to cover his stay there. Pt states understanding. SW asked about completing POA papers today, pt is not wanting to do this today, states tomorrow. SW asked if it would be okay to call his son and if SW does not reach him his daughter in law, pt is agreeable to this. SW called son Demetri, was able to reach him today. SW explained to son SW spoke w/pt yesterday, and pt did not want to return to [place], but was agreeable to [facility]. SW explained TCU will have a bed and let son know that pt did agree today to go to TCU. Son states understanding, is also in agreement with this. SW also explained pt did not fully participate in therapy here, SW did encourage him to participate in therapy in [facility]CU. Son states understanding. Son is not sure why the pt did not like [place], he thought perhaps pt's daughter had said something to pt about the facility. Son also told this SW he thinks pt may be depressed and is wondering if this may be impacting the pt. Son states at [facility] pt seemed confused and uncomfortable. Son states he knows the pt and pt's daughter did like [facility]. SW spoke w/son about pt's course of hospitalizations, [facility] and [facility] stay over the last few months, support given. Son states pt's grandson had been staying w/pt but he cannot provide 24 hour care. After pt's last hospitalization earlier this month, it took son and nephew 30-60 minutes to get pt into the home, as pt was so worried he would fall he was having difficulty getting into the home. Son again thinks there is a mental element to all of this. SW spoke w/son about POA papers as well. SW let son know that if pt is up for it SW will assist pt in completing POA forms. SW explained that yesterday and today pt was not feeling well enough to do the papers. Son states that they have been trying to get a jig inspector to come over and do the papers w/pt but he has not been feeling well enough to complete them. SW explained that if the SW here cannot assist in completing the papers while pt is here, SW in TCU would be able to assist as well. SW also explained will mention to [facility] SW son's concern about pt being depressed. Son states understanding. SW will continue to follow, will speak w/pt about POA papers tomorrow to see if he is feeling well enough to complete and is alert and oriented and able to complete the forms, and will stay in touch w/son. SW did let SW in [facility]CU know about pt's possible depression as per son and that if this SW is not able to complete the POA forms here, to see if pt will be able to complete them when in TCU. DELTA Burgess, [employer] Original Note: TCU is able to take pt at discharge. Pt is sleeping at present, SW will speak w/him later today. DELTA Burgess, [employer]
[2018-10-10] MEDS: Menthol/Lanolin/Calamine/Znox 113 GM Tube 1 APPLIC TOPICAL ×2 (10:18→21:27)
--- NOTE | 2018-10-10 11:02 | NURSING ---
This RN and AZUL Anguiano repositioned pt at 1000 from left side to supine. Urinary incontinence care provided and calmoseptine applied to buttock per order. When turning pt began using profanities and stated that the odyssey should be over- and they told me that for 6 days now. This RN notified pt that we are unaware of what odyssey he is referring to. Pt states yes you do. A little while later this RN asked pt what the current month is- he responded probably the same as last year. This RN then asked what the year is and he again repeated, probably the same as last year. Pt able to state his name, bday and current location- [facility]. This RN spent 60 minutes with this patient. Therapy had assisted pt up to recliner after patient agreed to do so after some encouragement. patient stated that he had no choice but to work with them- however, they reminded pt that he did have a say and that they would leave if he told them to. After a long delay, pt eventually agreed and was assisted into chair with personal alarm placed. Therapy left room and this RN spent about 45 more minutes with pt attempting to give morning medications. Pt kept repeating that he already took them all. Reminded pt that he took his medications last evening but have not yet had any of your morning medications yet. Pt verbalized that he understood but refused to take his morning medications. This RN attempted to educate and encourage pt to take meds- continued to refuse. Pt then became very irritable and stated that he needed to get back to bed NOW. This RN assisted pt back to bed per his request with use of gait belt. Primary RN Alva notified of same. Pt drank all of his Morales and Calmoseptine was applied at time of turn.
[2018-10-10] MEDS: AMOXICILLIN 500 MG CAPSULE PO (11:04)
[2018-10-10] MEDS: APIXABAN 2.5 MG TABLET PO ×2 (11:05→21:27)
[2018-10-10] MEDS: Allopurinol 300 MG Tablet PO (11:05)
[2018-10-10] MEDS: guaiFENesin 1,200 MG Tablet 1200 MG PO ×2 (11:05→21:27)
[2018-10-10] MEDS: Aspirin E.C. 81 MG Tablet PO (11:06)
[2018-10-10] MEDS: Finasteride 5 MG Tablet PO (11:06)
[2018-10-10] MEDS: Iron Polysaccharide Complex 150 MG CAPSULE PO (11:06)
--- NOTE | 2018-10-10 11:36 | NURSING ---
Attends changed for small amount of urine incontinence. patient tearful about being incontinent. comfort provided. applied calmoseptine as a moisture barrier. patient does have an open area to the cleft. most likely moisture related. will continue to monitor.
--- NOTE | 2018-10-10 13:21 | NURSING ---
This RN walked by pt's room- pt was attempting to get out of bed. He states that he needs help with this and gestured to side rail. Pt had used index finger on left hand to pick left nare- blood on pt's face, finger and side rail with some bloody mucous in left palm. This RN obtained warm wipes and assisted pt with cleaning up skin and face as well as side rail. Once complete pt states, you need to hurry!! it is running!! Pt unable to tell this RN what was running or what he needed but assumed due to recent diarrhea that it might be commode. BSC given- pt assisted onto commode and with removal of brief. Pt incontinent of small amt. of yellowish gelatinous stool. As pt sat on commode he told this RN, you can remove this and motioned toward walker. Reminded pt that he needed walker to be safe when he is walking- pt slightly agitated but agreed to keeping in place. New brief placed after care provided and pt assisted back to bed. Bed alarm placed on more sensitive level. This RN asked pt is he would prefer a different TV channel. Pt stated, oh that's my TV. This RN reminded pt that he is in the hospital and pt states, Oh I am? this RN verified same.
--- NOTE | 2018-10-10 14:06 | PCM.PN.REN ---
Subjective: no new events - Physical Exam General: Alert, Oriented x3, Cooperative HEENT: Atraumatic, PERRLA, EOMI, Normocephalic Neck: Supple, No JVD, Negative Carotid Bruits Lungs: Clear to auscultation, Normal air movement Cardiovascular: Regular rate, No murmurs Abdomen: Bowel Sounds Present, Soft, Non Tender Extremities: No edema, Capillary Refill Less than 3 Seconds Skin: No rashes, No breakdown Musculoskeletal: No Tenderness to Palpation of Joints or Extremities Neurological: Cranial nerves II-XII grossly intact Psych/Mental Status: Normal Affect, Appropriate Vital Signs Temp Pulse Resp BP Pulse Ox 98.7 F 96 18 109/40 L 93 10/10/18 09:09 10/10/18 09:31 10/10/18 09:09 10/10/18 09:09 10/10/18 09:09 Oxygen Flow Rate (L/min) 2 Oxygen Delivery Method Room Air Weight: 78.1 kg Body Mass Index (BMI) 25.8 Finger Stick Blood Glucose 122 Intake and Output for Last 24 Hours 10/08/18 10/09/18 10/10/18 23:59 23:59 23:59 Intake Total 300 / 300 813 / 813 626 / 626 Output Total 150 / 150 250 / 250 Balance 150 / 150 563 / 563 626 / 626 Microbiology Past 72 Hours 10/09/18 03:25 Enteric Bacteriology - Final Interface Orders 10/09/18 03:25 C. difficile DNA Amplification - Final Stool Toxigenic C. difficile DNA 10/09/18 03:25 Stool Lactoferrin - Final Stool 10/08/18 17:40 Stool Occult Blood (ALDEN) - Final Stool Occult Blood Positive Laboratory Tests Past 24 Hrs 10/10/18 10/10/18 05:50 05:50 WBC 8.3 RBC 3.15 L Hgb 8.7 L Hct 30.5 L MCV 96.8 H MCH 27.6 MCHC 28.5 L RDW 14.5 RDW Differential 48.1 H Plt Count 123 L MPV 11.4 Immature Gran % (Auto) 0.100 Neut % (Auto) 90.5 H Lymph % (Auto) 5.1 L [place] % (Auto) 3.5 Eos % (Auto) 0.7 Baso % (Auto) 0.1 Absolute Neuts (auto) 7.5 Absolute Lymphs (auto) 0.42 L Total Counted Not Reportable Sodium 150 H Potassium 4.1 Chloride 114 H Carbon Dioxide 30.0 Anion Gap 6 BUN 73 H Creatinine 2.22 H Estim Creat Clear Calc 25.25 Est GFR (MDRD) Af Amer 37 L Est GFR (MDRD) Non-Af 30 L BUN/Creatinine Ratio 32.9 H Glucose 107 H Calcium 8.3 L Magnesium 2.0 Medical Necessity - Tobacco Use Smoking Status: Never smoker Tobacco Use: Non-smoker Assessment/Plan 1-kidney injury on chronic kidney disease. Patient had acute kidney injury 2 months ago from prerenal. UA for this is benign. No hematuria no proteinuria. I am suspecting acute kidney injury at this time also due to prerenal from diarrhea and Lasix. Creatinine is slightly stable today at 2.17. Diarrhea is better. hold lasix for now 2-hypernatremia. Most probably from free water loss and diarrhea and Lasix. on D5W today. 3-hypokalemia: From Lasix and diarrhea. better 4-anemia: Continue Procrit every 2 weeks. 5-hypertension: Blood pressure is well controlled. Continue the same dose of labetalol 6-BPH: On Proscar. No urinary obstructive symptoms as per the patient. 7-diarrhea: C Diff on oral vanco.
--- NOTE | 2018-10-10 14:28 | CPS ---
ENCOURAGED PT TO USE SMI AND PEP ON OWN
--- NOTE | 2018-10-10 15:51 | NURSING ---
Pt's daughter Bulmaro came in to visit pt. This RN instructed Bulmaro- per her request instructions for gowning up prior to entering room for special precautions. Pt followed all instructions and was very diligent about following special precautions. Upon entry in room this RN heard pt speaking to daughter loudly regarding moving bed rail. This RN gowned up and entered room to assist pt. Pt yelling at daughter blaming her for his wet pants. This RN provided emotional support and notified pt that it wasn't daughters fault and we will take care of everything. Daughter stepped on other side of curtain while this RN assisted pt to [facility]. Pt began talking to this RN and stated, Now you know number 4 doesn't work correctly don't you? This RN attempted to prevent pt to be angry and stated sure. Pt then asked well then what is it? This RN notified him of difficulty understanding. Pt stated, you know #4, Nirmal Fairbanks the pooper of the poops, #3 Nirmal the Pooper. Pt then asked this RN, and you know who is #5 right? This RN responded that she did not know. Daughter stated Roseanne Means and pt seemed fine with response. Then pt states that the thing he is having trouble with is that he wakes up each day and they make him start all the way over. Daughter responded that is the way it is for now. Pt then became very angry with daughter and stated that he wanted her to leave and return to [place]. Daughter stated that she would do that if he wanted her to, to which pt replied that is what I want, you go back to [place]. I never had these troubles until you got here. Pt states, see!! now I have to have a finger shoved up my butt. This RN educated pt that is not happening but that incontinence care would be provided and that some cream would be applied due to protect skin. Pt again stated, yeah right- here it goes, a finger up the butt. Emotional support provided to pt- and notified him that daughter came all the way here to visit him. Pt states no she didn't she came her for herself. Again reinforced that she came to visit with him. Daughter verbalized same. Then pt reminded that sometimes when we don't feel well we say hurtful things that we do not mean. Pt did not respond. 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 she states that there are a lot of family issues but that many get the picture that they have a wonderful family. She states her son gave up his life and his home to live with pt as he was unsafe to be there alone. She states that pt treats him like he does her and is very hard and cruel at times, but that her daughter can do no wrong. Emotional support provided. Bulmaro states she will call in to see how he is, from now on, prior to coming in. She advised her son not to come visit due to patients current mood. She notes that both her and her son have depression and she sees a counselor and they cannot be around the hurtful comments. More emotional support provided.
[2018-10-10] MEDS: Labetalol 200 MG Tablet PO (21:27)
[2018-10-10] MEDS: Pravastatin 40 MG Tablet PO (21:27)
[2018-10-11 03:20] VITALS: BP 118/59; PULSE 61; RESP 14; TEMP 36.2; O2SAT 96
[2018-10-11 06:31] LABS: Absolute Lymphocyte Count 0.55 X10^3/ul (0.83-4.51); Absolute Neutrophil Count 6.7 X10^3/uL (2.0-7.7); Eosinophils% 1.3 % (0-5); Hematocrit 29.4 % (40-54); Hemoglobin 8.5 g/dl (13.0-16.5); Lymphocyte # 0.55 X10^3/ul (4.0); Lymphocyte % 7.1 % (19-41); Mean Corp Hgb Conc 28.9 g/gl (32-36); Mean Corpuscular Hgb 27.6 pg (27.0-32.0); Mean Corpuscular Volume 95.5 fL (80-94); Mean Platelet Vol. 11.7 fl (6.2-12.0); Monocyte# 0.32 X10^3/uL; Monocyte% 4.2 % (0-10); Neutrophil # 6.74 X10^3/uL (2.7-7.7); Neutrophil % 87.4 % (47-70); Platelet Count 127 K/mm3 (150-450); RBC Distribution Width CV 14.8 % (11.6-14.6); RBC Distribution Width SD 51.7 fl (35.1-43.9); Red Blood Count 3.08 M/mm3 (4.6-6.2); White Blood Count 7.7 K/mm3 (4.4-11.0)
[2018-10-11 06:32] LABS: Differential Indicated SCAN CRITERIA MET; POSITIVE COUNT NO; POSITIVE DIFFERENTIAL YES; POSITIVE MORPHOLOGY NO
[2018-10-11 06:33] LABS: Anion Gap 5 (5-15); BUN 78 mg/dL (7-18); BUN/Creat Ratio 39.8 RATIO (10-20); Calcium,Total 8.3 mg/dL (8.5-10.1); Chloride 112 mmol/L (98-107); Creatinine, Serum 1.96 mg/dL (0.70-1.30); EST Glomerular Filtration Rate 35 mL/min (>60); Est Glom Filt Rate - Afr Amer 42 mL/min (>60); Glucose 122 mg/dL (74-106); Potassium 4.4 mmol/L (3.5-5.1); Sodium Level 146 mmol/L (136-145)
[2018-10-11 06:45] VITALS: O2SAT 94
--- NOTE | 2018-10-11 08:41 | PCM.PN.REN ---
Subjective: Following for JOSEF on CKD. Pt is confused. However, he denies CP, SOB or nausea. Diarrhea has considerably improved per RN. - Physical Exam General: Alert, No apparent distress HEENT: Atraumatic, Normocephalic Oral: Dry Mucosa Neck: Supple Lungs: Clear to auscultation Cardiovascular: Normal S1, Normal S2, No murmurs Abdomen: Bowel Sounds Present, Soft, Non Tender Extremities: Edema - wrapped in PATITO bandage Vital Signs Temp Pulse Resp BP Pulse Ox 97.1 F L 61 14 118/59 L 94 10/11/18 03:20 10/11/18 03:20 10/11/18 03:20 10/11/18 03:20 10/11/18 06:45 Oxygen Flow Rate (L/min) 2 Oxygen Delivery Method Nasal Cannula Weight: 78.1 kg Body Mass Index (BMI) 25.8 Finger Stick Blood Glucose 122 Intake and Output for Last 24 Hours 10/09/18 10/10/18 10/11/18 23:59 23:59 23:59 Intake Total 813 / 813 2113 / 2113 725 / 725 Output Total 250 / 250 Balance 563 / 563 2113 / 2113 725 / 725 Microbiology Past 72 Hours 10/09/18 03:25 Enteric Bacteriology - Final Interface Orders 10/09/18 03:25 C. difficile DNA Amplification - Final Stool Toxigenic C. difficile DNA 10/09/18 03:25 Stool Lactoferrin - Final Stool 10/08/18 17:40 Stool Occult Blood (ALDEN) - Final Stool Occult Blood Positive Laboratory Tests Past 24 Hrs 10/11/18 10/11/18 05:38 05:38 WBC 7.7 RBC 3.08 L Hgb 8.5 L Hct 29.4 L MCV 95.5 H MCH 27.6 MCHC 28.9 L RDW 14.8 H RDW Differential 51.7 H Plt Count 127 L MPV 11.7 Immature Gran % (Auto) 0.000 Neut % (Auto) 87.4 H Lymph % (Auto) 7.1 L [place] % (Auto) 4.2 Eos % (Auto) 1.3 Baso % (Auto) 0.0 Absolute Neuts (auto) 6.7 Absolute Lymphs (auto) 0.55 L Total Counted Not Reportable Sodium 146 H Potassium 4.4 Chloride 112 H Carbon Dioxide 29.0 Anion Gap 5 BUN 78 H Creatinine 1.96 H Estim Creat Clear Calc 28.60 Est GFR (MDRD) Af Amer 42 L Est GFR (MDRD) Non-Af 35 L BUN/Creatinine Ratio 39.8 H Glucose 122 H Calcium 8.3 L Medical Necessity - Tobacco Use Smoking Status: Never smoker Tobacco Use: Non-smoker Assessment/Plan 1-Acute kidney injury on chronic kidney disease stage 3. Baseline SCr is 1.4-1.5. CKD is in stage 3. JOSEF is likely prerenal from volume depletion (diarrhea). Renal function is better but not yet back to baseline. Continue D5W today since Na is till high and po intake is unreliable per RN. Recheck renal function in am. 2-Hypernatremia. Improved. Hypernatremia is due to free water loss from diarrhea and Lasix. Continue D5W today. Hold Lasix today. Recheck Na in am. 3-Hypokalemia: From Lasix and diarrhea. better. Ok to continue KCl. 4-Anemia: Continue Procrit every 2 weeks. Monitor Hgb. 5-Hypertension: Blood pressure is well controlled. Continue the same dose of labetalol. 6-BPH: On Proscar. 7-Diarrhea: C Diff on oral vancomycin. Improving. OK from renal standpoint to go to TCU.
--- NOTE | 2018-10-11 08:45 | PCM.PROGNOTE ---
Subjective: Chief complaint: Follow-up after admission for acute kidney injury, stage III chronic kidney disease, hyponatremia, C. difficile colitis, right kidney stone with hydronephrosis. Patient seen and examined. No acute events overnight. He remained asymptomatic, no complaints. His breathing has been okay, no complaint of worsening shortness of breath. Denied cough or sputum production. Denied abdominal pain, nausea vomiting. He has no more diarrhea. His vital signs have been stable, pulse ox is maintained on 2 L of oxygen. - Physical Exam General: Alert, Oriented x3, Cooperative, No apparent distress HEENT: Atraumatic, PERRLA, EOMI, Normocephalic Oral: Moist Mucosa, No Gingival or Mucosal Lesions/ Ulcerations Neck: Supple, No JVD, Negative Carotid Bruits, Trachea Midline, Thyroid Normal Size and Texture Lungs: No wheeze, No rales, Diminished, Rhonchi, - - Decreased breath sounds bilateral, more on the right side with scattered rhonchi. Cardiovascular: Normal S1, Normal S2, No murmurs, PMI Normal, Irregular Rate Abdomen: Bowel Sounds Present, Soft, Non Tender, Non-Distended, No Hepato-splenomegaly Extremities: No clubbing, No cyanosis, Edema Skin: No rashes, No breakdown Lymphatic: No Cervical, Supraclavicular, or Inguinal Adenopathy Neurological: Cranial nerves II-XII grossly intact, Neuro grossly intact Psych/Mental Status: Normal Affect, Appropriate, Alert and oriented to time, place, person, mood and affect Vital Signs Temp Pulse Resp BP Pulse Ox 97.1 F L 61 14 118/59 L 94 10/11/18 03:20 10/11/18 03:20 10/11/18 03:20 10/11/18 03:20 10/11/18 06:45 Oxygen Flow Rate (L/min) 2 Oxygen Delivery Method Nasal Cannula Weight: 172 lb 2.896 oz Body Mass Index (BMI) 25.8 Finger Stick Blood Glucose 122 Intake and Output for Last 24 Hours 10/09/18 10/10/18 10/11/18 23:59 23:59 23:59 Intake Total 813 / 813 2113 / 2113 725 / 725 Output Total 250 / 250 Balance 563 / 563 2113 / 2113 725 / 725 Microbiology Past 72 Hours 10/09/18 03:25 Enteric Bacteriology - Final Interface Orders 10/09/18 03:25 C. difficile DNA Amplification - Final Stool Toxigenic C. difficile DNA 10/09/18 03:25 Stool Lactoferrin - Final Stool 10/08/18 17:40 Stool Occult Blood (ALDEN) - Final Stool Occult Blood Positive Laboratory Tests Past 24 Hrs 10/11/18 10/11/18 05:38 05:38 WBC 7.7 RBC 3.08 L Hgb 8.5 L Hct 29.4 L MCV 95.5 H MCH 27.6 MCHC 28.9 L RDW 14.8 H RDW Differential 51.7 H Plt Count 127 L MPV 11.7 Immature Gran % (Auto) 0.000 Neut % (Auto) 87.4 H Lymph % (Auto) 7.1 L [place] % (Auto) 4.2 Eos % (Auto) 1.3 Baso % (Auto) 0.0 Absolute Neuts (auto) 6.7 Absolute Lymphs (auto) 0.55 L Total Counted Not Reportable Sodium 146 H Potassium 4.4 Chloride 112 H Carbon Dioxide 29.0 Anion Gap 5 BUN 78 H Creatinine 1.96 H Estim Creat Clear Calc 28.60 Est GFR (MDRD) Af Amer 42 L Est GFR (MDRD) Non-Af 35 L BUN/Creatinine Ratio 39.8 H Glucose 122 H Calcium 8.3 L Medical Necessity - Tobacco Use Smoking Status: Never smoker Tobacco Use: Non-smoker Assessment/Plan This is an 83 years old male patient was sent to the ED because of abnormal labs namely leukocytosis, anemia and hypokalemia as well as weakness, diarrhea and functional decline, found to have acute kidney injury, stage III chronic kidney disease, C. difficile colitis, hyponatremia and hypokalemia. #1 acute kidney injury on top of stage III chronic kidney disease: Prerenal secondary to diarrhea and Lasix. Remains on IV fluids for hydration, kidney function started to improve. Creatinine is down to 1.96, sodium is getting down as well. CT scan abdomen and pelvis done last night and revealed a right kidney stone with hydronephrosis. Urology consulted, stated that there is nonobstructing right kidney stone and without evidence of obstructive uropathy. Recommended no need for intervention at this time. Nephrology on the case. Plan: Continue same treatment, repeat BMP tomorrow morning. #2 acute C. difficile colitis: He is on oral vancomycin. He has no more diarrhea. Denied abdominal pain, nausea vomiting. He has been afebrile. Plan to complete 10 days of treatment. #3 hypernatremia: Seems to be hypovolemic hypernatremia. Serum sodium started to come down, it is 146 today. Plan to continue same treatment, repeat BMP tomorrow morning. #4 hypokalemia: Potassium replaced and corrected, today's potassium is 4.4. Will discontinue oral potassium supplement. #5 recent history of streptococcal healthcare associated pneumonia/streptococcal bacteremia: Patient was discharged on October 02, 2018 on amoxicillin for 7 additional days from that day which was completed. She has been afebrile, pulse ox has been stable on 2 L of oxygen. #6 chronic anemia: Normocytic anemia secondary to anemia of chronic disease. Hemoglobin has been around 8-9 g/dL. Today's hemoglobin is 8.5 g/dL, stable at baseline, no indication for transfusion. #7 paroxysmal atrial fibrillation: Rate is stable, blood pressure stable, continue labetalol for rate control, continue Eliquis for anticoagulation. #8 hypertension: Blood pressure stable, continue labetalol. #9 history of CVA: Continue Eliquis and aspirin as well as statins. #10 benign prostatic hypertrophy: Continue Proscar. #11 DVT prophylaxis: Continue Eliquis. This note was generated with [employer] dictation software. It may contain incorrect words, spelling, and punctuation that were not noted in checking the note before signing. Code Visit Inpatient E&M: 92743 Subs Hosp L2
--- NOTE | 2018-10-11 09:53 | CASEMGMT ---
Addendum entered by Ora Loomis 10/11/18 11:09: As per RN, pt not taking his medication, not eating. As per PT/OT, pt did not participate today, stated he gives up. Physician spoke w/pt as well, asked if family can come speak w/pt. SW called son Demetri. SW explained to son that pt is not participating in therapy, not taking meds, not eating. SW explained that RN, therapy, physician have all spoken to pt and pt does not seem to want to participate. SW explained to son if pt does not participate in therapy he will not be able to stay in TCU. SW asked if he and/or any other family members may be able to speak w/thept. Son states understanding. He is going to call his and they are going to come to the hospital to speak w/the pt. DELTA Burgess, LEGAL RESEARCH ANALYST Original Note: As per physician, pt will be ready to go to TCU tomorrow. SW let Reema in TCU know via voicemail that pt should be ready for TCU tomorrow. SW spoke w/pt, he is too sleepy to do POA forms now, and would like his son present when they are completed. Also, pt does not seem alert enough at this time to complete the forms. SW let SW in TCU know that pt would like son present when he completes the forms, she will address this when pt is in TCU. SW called son and let him know that pt will likely go to TCU tomorrow. SW explained also spoke w/pt about completing POA forms and pt wants him to be present. Son asked how pt is today, SW explained was in there and pt is quite sleepy and seems slightly confused at present. Son explained that after pt's , pt was in a daze or funk for about a month and was able to come out of it. Son states he was going over daily to make sure pt was hydrated, and pt did eventually come out of it. Pt was healthier then however. SW inquired if pt's current mental status is reminding him of this, and he states yes. SW explained can try to speak to pt today, though he may be too sleepy today. SW explained that the SW in TCU will address this w/pt as well. Son states understanding. Green sheet on the chart in anticipation of weekend discharge. SW did attempt to go back to speak w/pt regarding concerns son has explained, however pt is asleep at present. It may not be appropriate today to speak w/pt about the son's concerns, SW in TCU is aware of son's concerns and can follow up. DELTA Burgess, LEGAL RESEARCH ANALYST
[2018-10-11 10:15] VITALS: BP 140/54; PULSE 60; RESP 20; TEMP 36.9; O2SAT 95
[2018-10-11] MEDS: Allopurinol 300 MG Tablet PO (10:17)
[2018-10-11] MEDS: Iron Polysaccharide Complex 150 MG CAPSULE PO (10:17)
[2018-10-11] MEDS: Finasteride 5 MG Tablet PO (10:17)
[2018-10-11] MEDS: APIXABAN 2.5 MG TABLET PO ×2 (10:18→21:43)
--- NOTE | 2018-10-11 12:05 | CASEMGMT ---
Son and [id number] spoke w/pt in room, then spoke w/ganga SW. Pt told them he wants to live, but also indicated to them he does not want to take medication or do PT. Son and daughter in law also spoke about pt having trouble at times with using the right words, and that this has been going on since pt came home from the hospital last time. SW spoke w/family about the limits of insurance covering SNF if pt is not participating in therapy, they are aware of this. DIL explains that pt wants to go home, but does not want to do what is needed to go home. Both son and DIL feel that pt is not connecting the dots of doing what he needs to do in order to go home. PEDRO asked about pt going to TCU, SW explained that the plan is for pt to go there tomorrow if doing okay. We did discuss the plan if pt is not participating in therapy. DIL and son state that they would want a referral to [facility] for private pay if needed. They would like to speak w/physician if possible. SW spoke w/Dr. Canada, he came over and spoke w/family. The plan for now continues to be for pt to go to TCU with the hope that he will better participate there--as pt has been there in the past and liked it there, did participate last time. If pt is not able to participate there, then the SW in TCU can assist in making a referral to [facility] private pay. DAVID explained will check [place]/Reema in TCU to make sure she is okay with this. SW spoke [place]/Reema in TCU, let her know pt is not participating here with PT, not wanting to take his medications. DAVID explained family aware if pt does not participate with therapy he will need to go elsewhere private pay. Reema states pt can still come to TCU and they will try to work w/pt. SW let family and physician know. Plan: TCU at discharge, green sheet on the chart. DELTA Burgess, RADIO STATION MANAGER
[2018-10-11 14:37] VITALS: BP 162/74; PULSE 62; RESP 18; TEMP 36.9; O2SAT 98
[2018-10-11 19:50] VITALS: BP 157/64; PULSE 61; RESP 16; TEMP 36; O2SAT 100
[2018-10-11] MEDS: Menthol/Lanolin/Calamine/Znox 113 GM Tube 1 APPLIC TOPICAL (21:43)
[2018-10-11] MEDS: Pravastatin 40 MG Tablet PO (21:43)
[2018-10-11] MEDS: guaiFENesin 1,200 MG Tablet 1200 MG PO (21:43)
[2018-10-11] MEDS: Labetalol 200 MG Tablet PO (21:43)
[2018-10-12 07:05] LABS: Anion Gap 6 (5-15); BUN 68 mg/dL (7-18); BUN/Creat Ratio 38.9 RATIO (10-20); Chloride 109 mmol/L (98-107); Creatinine, Serum 1.75 mg/dL (0.70-1.30); EST Glomerular Filtration Rate 40 mL/min (>60); Est Glom Filt Rate - Afr Amer 48 mL/min (>60); Estimated Creatinine Clearance 32.03 ml/min; Glucose 114 mg/dL (74-106); Potassium 4.4 mmol/L (3.5-5.1); Sodium Level 142 mmol/L (136-145)
[2018-10-12 07:09] LABS: Absolute Lymphocyte Count 0.49 X10^3/ul (0.83-4.51); Absolute Neutrophil Count 6.1 X10^3/uL (2.0-7.7); Eosinophil# 0.13 X10^3/uL; Eosinophils% 1.8 % (0-5); Hematocrit 29.7 % (40-54); Hemoglobin 8.4 g/dl (13.0-16.5); Lymphocyte # 0.49 X10^3/ul (4.0); Lymphocyte % 6.8 % (19-41); Mean Corp Hgb Conc 28.3 g/gl (32-36); Mean Corpuscular Hgb 27.3 pg (27.0-32.0); Mean Corpuscular Volume 96.4 fL (80-94); Mean Platelet Vol. 11.6 fl (6.2-12.0); Monocyte# 0.44 X10^3/uL; Monocyte% 6.1 % (0-10); Neutrophil # 6.12 X10^3/uL (2.7-7.7); Platelet Count 122 K/mm3 (150-450); RBC Distribution Width CV 14.2 % (11.6-14.6); RBC Distribution Width SD 47.4 fl (35.1-43.9); Red Blood Count 3.08 M/mm3 (4.6-6.2); White Blood Count 7.2 K/mm3 (4.4-11.0)
[2018-10-12 07:15] LABS: POSITIVE DIFFERENTIAL YES
[2018-10-12 07:16] LABS: Differential Indicated SCAN CRITERIA MET; POSITIVE COUNT NO; POSITIVE MORPHOLOGY NO
[2018-10-12 08:00] VITALS: O2SAT 98
[2018-10-12 08:25] VITALS: BP 147/68; PULSE 60; RESP 16; TEMP 36.4; O2SAT 98
[2018-10-12] MEDS: Iron Polysaccharide Complex 150 MG CAPSULE PO (08:25)
[2018-10-12] MEDS: APIXABAN 2.5 MG TABLET PO (08:25)
[2018-10-12] MEDS: Finasteride 5 MG Tablet PO (08:25)
[2018-10-12] MEDS: Aspirin E.C. 81 MG Tablet PO (08:25)
[2018-10-12] MEDS: Allopurinol 300 MG Tablet PO (08:25)
[2018-10-12] MEDS: Labetalol 200 MG Tablet PO (08:25)
[2018-10-12] MEDS: guaiFENesin 1,200 MG Tablet 1200 MG PO (08:25)
[2018-10-12] MEDS: Menthol/Lanolin/Calamine/Znox 113 GM Tube 1 APPLIC TOPICAL (08:26)
[2018-10-12] MEDS: 0.9% NaCl Peripheral Flush Adult/Peds IV (08:29)
--- NOTE | 2018-10-12 09:29 | PCM.TXEXTCAR ---
- Diet 10/08/18 20:54 Diet: Renal: 60 gm protein Is pt able to select menu?: No - Routine Orders/Code Status O2 Liters per Minute: 2 O2 Frequency: Continuous Keep PO Greater than or Equal to (%): 92 Routine Lab Work: CBC, BMP - Wound(s) COCCYX Wound Type: Pressure Injury LEFT POSTERIOR CALF Wound Type: Stasis Ulcer Dressing Change: Adaptic heydi cleft Wound Type: moisture associated Dressing Change: calmoseptine left buttock Wound Type: Pressure Injury - Suggestions for Active Care Change Position every (hours): 3 Hours to sit in a chair: 2 Times a day to sit in chair: 3 - Therapies Weight Bearing: Weight bearing as tolerated Physical Therapy: Eval and Treat Occupational Therapy: Eval and Treat Speech Therapy: Eval and Treat - Allergies/Procedures Done in Hospital Allergies/Adverse Reactions: Allergies No Known Allergies Allergy (Verified 10/08/18 17:01) - Type of Care/Length of Stay Estimated LOS: Convalescent Care Less Than 30 days Type of Care Needed: Skilled Rehab Potential: Fair Prognosis: Fair - Additional Orders/Day of Discharge H&P will serve as current which was dated: 10/08/18 Day of Discharge: 10/12/18 - Dietary and Speech Recommendations Dietitian Recommendations/Changes: Poor oral intake- would not recommend renal diet at this time. Rec diet change to cardiac/low cholesterol, low sodium. Rec continue Morales BID for wound healing. Will d/c Nepro CarbSteady- not appropriate for non-dialysis patients. Will replace ONS w/ Ensure Enlive as intake appears poor this date. - Follow Up Care Primary Care Physician: Vijay Mason MD [Primary Care Provider] - Please follow up with your Primary Care Physician in: 1 week. Please Follow Up With: Robby Stephens MD When: 2 weeks.
[2018-10-12 12:00] VITALS: RESP 16; O2SAT 96
--- NOTE | 2018-10-12 13:00 | DS.PCM_ITS ---
Discharge Date and Diagnosis Date of Admission: 10/08/18 Date of Discharge: 10/12/18 - Primary Discharge Diagnosis #1 acute kidney injury notable stage III chronic kidney disease. #2 acute C. difficile colitis. #3 hypernatremia. #4 hypokalemia. #5 recent history of streptococcal healthcare associated pneumonia/streptococcal bacteremia, completed treatment with amoxicillin. - Secondary Discharge Diagnosis Chronic Problems Leg ulcer (Chronic) Lymphedema (Chronic) Pleural effusion, right (Chronic) Hypertension (Chronic) Stroke (Chronic) Hyperlipidemia (Chronic) Carotid artery disease (Chronic) Anemia of chronic kidney failure (Chronic) Lymphedema of lower extremity (Chronic) Nephrolithiasis (Chronic) Gout (Chronic) CKD (chronic kidney disease), stage III (Chronic) BPH (benign prostatic hyperplasia) (Chronic) Hospital Course and Treatment Imaging Results: Clinical Impression(s) from Imaging Studies Chest X-Ray 10/08/18 17:35 IMPRESSION: Right mid and lower lung consolidation and pleural effusion. Electronically Signed: Baltazar Linder MD at 17:50 EST , Service support , Abdomen/Pelvis CT 10/09/18 19:37 IMPRESSION: Right renal stones with hydronephrosis. Colitis with wall thickening could be infectious or inflammatory. No obstruction. Large loculated right pleural effusion. Moderate left pleural effusion. Bilateral lower lung consolidation. Subcutaneous edema of the right lateral abdominal wall. No dominant mass. 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 Rosario, Dr. Hurtado, Dr. Meyer, nephrology. Dr. Hatch, urology. Operations: None Procedures: None Summary of Care Provided: Patient seen and examined on the day of discharge and appeared to be to be discharged to TCU. He denies any complaints. Nursing staff reports that he has been taking his medications. His vital signs are stable. This is an 83 years old male patient was sent to the ED because of abnormal labs namely leukocytosis, anemia and hypokalemia as well as weakness, diarrhea and functional decline, found to have acute kidney injury, stage III chronic kidney disease, C. difficile colitis, hyponatremia and hypokalemia. #1 acute kidney injury on top of stage III chronic kidney disease: Prerenal secondary to diarrhea and Lasix. He was treated with IV fluids. CT scan abdomen and pelvis done last night and revealed a right kidney stone with hydronephrosis. Urology consulted, stated that there is nonobstructing right kidney stone and without evidence of obstructive uropathy. Recommended no need for intervention at this time. With IV fluid therapy, his creatinine came down from 2.2 to down to 1.75 which is his baseline. Patient discharged to TCU in a stable medical condition, started back on Lasix, order given to repeat BMP in 4 days. #2 acute C. difficile colitis: Treated with oral vancomycin. He has no more diarrhea. Denied abdominal pain, nausea vomiting. Discharged on oral vancomycin to complete total of 10 days of treatment. #3 hypernatremia: Seems to be hypovolemic hypernatremia due to Lasix and diarrhea. Treated with D5 water IV fluids and his sodium returned back to normal. Maximum sodium was 150 and with treatment, came down to 140. #4 hypokalemia: Potassium replaced and corrected, discharge potassium is 4.4. #5 recent history of streptococcal healthcare associated pneumonia/streptococcal bacteremia: Patient was discharged on October 02, 2018 on amoxicillin for 7 additional days from that day which was completed. #6 chronic anemia: Normocytic anemia secondary to anemia of chronic disease. Hemoglobin has been around 8-9 g/dL. Discharge hemoglobin is 8.4 g/dL, stable at baseline. #7 paroxysmal atrial fibrillation: continued on labetalol for rate control, continued on Eliquis for anticoagulation. #8 hypertension: Blood pressure stable, continued on labetalol. #9 history of CVA: Continued on Eliquis and aspirin as well as statins. #10 benign prostatic hypertrophy: Continued on Proscar. Patient discharged to TCU in a stable medical condition, discharged on his medications without any changes, continued on Lasix and drip was, he completed his course of amoxicillin, order given to repeat BMP and CBC in 4 days, plan to follow-up with nephrology as outpatient, follow-up with PCP in 1 week. This note was generated with [employer] software. It may contain incorrect words, spelling, and punctuation that were not noted in checking the note before signing. - Physical Exam General: Alert, Oriented x3, Cooperative, No apparent distress HEENT: Atraumatic, PERRLA, EOMI, Normocephalic Oral: Moist Mucosa, No Gingival or Mucosal Lesions/ Ulcerations Neck: Supple, No JVD, Negative Carotid Bruits, Trachea Midline, Thyroid Normal Size and Texture Lungs: Clear to auscultation, No wheeze, No rales, Diminished, Rhonchi, - - Decreased breath sounds at the bases, more on the right lung, rhonchi. Cardiovascular: Normal S1, Normal S2, PMI Normal, Irregular Rate Abdomen: Bowel Sounds Present, Soft, Non Tender, Non-Distended, No Hepato- splenomegaly Extremities: No clubbing, No cyanosis, Edema Lymphatic: No Cervical, Supraclavicular, or Inguinal Adenopathy Neurological: Cranial nerves II-XII grossly intact, Neuro grossly intact Psych/Mental Status: Normal Affect, Appropriate Vital Signs Temp Pulse Resp BP Pulse Ox 97.6 F L 60 16 147/68 H 98 10/12/18 08:25 10/12/18 08:25 10/12/18 08:25 10/12/18 08:25 10/12/18 08:25 Oxygen Flow Rate (L/min) 2 Oxygen Delivery Method Nasal Cannula Weight: 172 lb 2.896 oz Body Mass Index (BMI) 25.8 Finger Stick Blood Glucose 122 Intake and Output for Last 24 Hours 10/10/18 10/11/18 10/12/18 23:59 23:59 23:59 Intake Total 2112 / 2112 1396 / 1396 1581 / 1581 Output Total 100 / 100 Balance 2112 / 2112 1296 / 1296 1581 / 1581 Microbiology Past 72 Hours 10/09/18 03:25 Enteric Bacteriology - Final Interface Orders 10/09/18 03:25 C. difficile DNA Amplification - Final Stool Toxigenic C. difficile DNA Laboratory Tests Past 24 Hrs 10/12/18 10/12/18 06:24 06:24 WBC 7.2 RBC 3.08 L Hgb 8.4 L Hct 29.7 L MCV 96.4 H MCH 27.3 MCHC 28.3 L RDW 14.2 RDW Differential 47.4 H Plt Count 122 L MPV 11.6 Immature Gran % (Auto) 0.300 Neut % (Auto) 85.0 H Lymph % (Auto) 6.8 L [place] % (Auto) 6.1 Eos % (Auto) 1.8 Baso % (Auto) 0.0 Absolute Neuts (auto) 6.1 Absolute Lymphs (auto) 0.49 L Total Counted Not Reportable Sodium 142 Potassium 4.4 Chloride 109 H Carbon Dioxide 27.0 Anion Gap 6 BUN 68 H Creatinine 1.75 H Estim Creat Clear Calc 32.03 Est GFR (MDRD) Af Amer 48 L Est GFR (MDRD) Non-Af 40 L BUN/Creatinine Ratio 38.9 H Glucose 114 H Calcium 8.0 L Home Medications: Medications to take at Discharge Labetalol [Trandate (Beta Lily)] 200 mg PO BID 10/10/16 Aspirin E.C. [Ecotrin] 81 mg PO DAILY 08/14/18 Finasteride [Proscar] 5 mg PO DAILY 08/19/18 Acetaminophen [Tylenol Tablet] 650 mg PO Q6H PRN PRN tab 10/02/18 Albuterol Aerosols [Ventolin Aerosols] 2.5 mg INHALATION Q2H PRN PRN vial.neb. 10/02/18 Magnesium Hydroxide [Milk Of Magnesia] 30 ml PO DAILY PRN udc 10/02/18 Allopurinol [Zyloprim] 300 mg PO DAILY 10/08/18 Apixaban [Eliquis] 2.5 mg PO BID 10/08/18 Epoetin Royer [Procrit] 10,000 units SC Q14D 10/08/18 Ergocalciferol [Vitamin D] 50,000 unit PO BURGOS 10/08/18 Furosemide [Lasix] 40 mg PO DAILY 10/08/18 Guaifenesin [Mucinex] 1,200 mg PO BID 10/08/18 Iron Polysaccharide Complex [Ferrex 150] 150 mg PO DAILYCM 10/08/18 Nutritional Supplement [Morales - ORANGE FLAVOR] 1 packet PO BIDCM 10/08/18 Pravastatin [Pravachol] 40 mg PO QHS 10/08/18 Vancomcyin 125mg/5mL PO Liquid 125 mg PO Q6 7 Days po.syringe 10/12/18 Following Prescrptions Were Given to Patient: Vancomcyin 125mg/5mL PO Liquid 125 mg PO Q6 7 Days po.syringe Other Amb Orders: Basic Metabolic Profile (BMP) Time Frame: 10/16/18, Location: Laboratory CBC W/Diff, Automated Time Frame: 10/16/18, Location: Laboratory Primary Care Physician: Vijay Mason MD [Primary Care Provider] - Please follow up with your Primary Care Physician in: 1 week. Please Follow Up With: Robby Stephens MD When: 2 weeks. Disposition: Alf facility Minutes spent on discharge:: 34 Patient Condition:: Stable Medical Necessity - Tobacco Use Smoking Status: Never smoker Tobacco Use: Non-smoker Meaningful Use Info Meaningful Use Diagnoses (Choose all that apply): None applicable Code Visit Inpatient E&M: 75788 Disch Hosp
--- OUTSIDE RECORDS SUMMARY | 2018-11-24 23:59 | XMS RPT_ITS ---
:1935 Author Organization OHIP Support Name Relationship Address Phone BULMARO SAWYER Unavailable [address] + [place] [address] R Unavailable Unavailable Unavailable VASAS, DEMETRI Unavailable [address] + [place] [address] GWYNN OAKBULMARO Unavailable [address] + [place] [address] R Unavailable Unavailable Unavailable VASAS, DEMETRI Unavailable [address] + [place] [address] GWYNN OAKBULMARO Unavailable [address] + [place] [address] R Unavailable Unavailable Unavailable VASAS, DEMETRI Unavailable [address] + [place] [address] GWYNN OAKBULMARO Unavailable [address] + [place] [address] R Unavailable Unavailable Unavailable VASAS, DEMETRI Unavailable [address] + [place] [address] GWYNN OAKBULMARO Unavailable [address] + [place] [address] R Unavailable Unavailable Unavailable VASAS, DEMETRI Unavailable [address] + [place] [address] GWYNN OAKBULMARO Unavailable [address] [address] + [place] [address] R Unavailable Unavailable Unavailable VASAS, DEMETRI Unavailable [address] + [place] [address] GWYNN OAKBULMARO Unavailable [address] [facility] [address] + [place] [address] R Unavailable Unavailable Unavailable VASAS, DEMETRI Unavailable [address] + [place] [address] [place] Bulmaro Unavailable [address] [facility] [address] + [place] [address] R Unavailable Unavailable Unavailable Vasas, Demetri Unavailable [address] + [place] [address] [place] Bulmaro Unavailable [address] [facility] [address] + [place] [address] R Unavailable Unavailable Unavailable Vasas, Demetri Unavailable [address] + [place] [address] GWYNN OAK BULMARO Unavailable [address] [facility] [address] [address] + [place] [address] R Unavailable Unavailable Unavailable VASAS, DEMETRI Unavailable [address] + [place] [address] [place], Bulmaro Unavailable [address] [facility] [address] + [place] [address] R Unavailable Unavailable Unavailable Vasas, Demetri Unavailable [address] + [place] [address] [facility] Unavailable [address] [facility] [address] + [place] [address] R Unavailable Unavailable Unavailable Vasas, Demetri Unavailable [address] + [place] [address] [place], Bulmaro Unavailable [address] [facility] [address] + [place] [address] R Unavailable Unavailable Unavailable Vasas, Demetri Unavailable [address] + [place] [address] [facility] [address] [address] [address] + [place] [address] R Unavailable Unavailable Unavailable VASAS, DEMETRI Unavailable [address] + [place] [address] GWYNN OAK, BULMARO Unavailable [address] [facility] [address] + [place] [address] R Unavailable Unavailable Unavailable VASAS, DEMETRI Unavailable [facility] + [place] [address] GWYNN OAK, BULMARO Unavailable [address] [facility] [address] + [place] [address] R Unavailable Unavailable Unavailable VASAS, DEMETRI Unavailable [address] + [place] [address] [place] Unavailable [address] [facility] [address] + [place] [address] R Unavailable Unavailable Unavailable Vasas, Demetri Unavailable [address] + [place] [address] [place] Bulmaro Unavailable [address] [facility] [address] + [place] [address] R Unavailable Unavailable Unavailable Vasas, Demetri Unavailable [address] + [place] [address] [place] Bulmaro Unavailable [address] [facility] [address] + [place] [address] R Unavailable Unavailable Unavailable Vasas, Demetri Unavailable [address] + [place] [address] [place] Bulmaro Unavailable [address] [facility] [address] + [place] [address] R Unavailable Unavailable Unavailable Vasas, Demetri Unavailable [address] + [place] [address] [facility] Unavailable [address] [facility] [address] + [place] [address] R Unavailable Unavailable Unavailable Vasas, Demetri Unavailable [address] + [place] [address] [facility] [place] [facility] Unavailable [address] [facility] [address] + [place] [address] R Unavailable Unavailable Unavailable Vasas, Demetri Unavailable [address] + [place] [address] [facility] Unavailable [address] [place] [address] [address] + [place] [address] R Unavailable Unavailable Unavailable Vasas, Dmeetri Unavailable [address] + [place] [address] [facility] [place] Unavailable [address] [facility] [address] + [place] [address] R Unavailable Unavailable Unavailable Vasas, Demetri Unavailable [address] + [place] [address] [place] Unavailable [address] [facility] + [place] [address] R Unavailable Unavailable Unavailable Vasas, Demetri Unavailable [address] + [place] [address] [place] Unavailable [address] [facility] + [place] [address] R Unavailable Unavailable Unavailable Vasas, Demetri Unavailable [address] + [place] [address] [facility] Unavailable [address] [facility] [address] + [address] [place] [address] R Unavailable Unavailable Unavailable VASAS, DEMETRI Unavailable [address] + [place] [address] [place] Unavailable [address] [facility] + [place] [address] R Unavailable Unavailable Unavailable Vasas, Demetri Unavailable [address] + [place] [address] [facility] Unavailable Unavailable + R Unavailable Unavailable Unavailable VASAS, DEMETRI Unavailable [address] + [place] [address] [facility] Unavailable [address] [facility] [address] + [address] [place] [address] R Unavailable Unavailable Unavailable VASAS, DEMETRI Unavailable [address] + [place] [address] [facility] Unavailable [address] [facility] [address] + [address] [place] [address] R Unavailable Unavailable Unavailable VASAS, DEMETRI Unavailable [address] + [place] [address] [facility] Unavailable [address] [facility] [address] + [address] [place] [address] R Unavailable Unavailable Unavailable VASAS, DEMETRI Unavailable [address] + [place] [address] BULMARO SAWYER Unavailable [address] [facility] [address] + [address] [place] [address] R Unavailable Unavailable Unavailable VASAS, DEMETRI Unavailable [address] + [place] [address] R Unavailable Unavailable Unavailable VASAS, DEMETRI Unavailable [address] + [place] [address] R Unavailable Unavailable Unavailable VASAS, DEMETRI Unavailable [address] + [place] [address] R Unavailable Unavailable Unavailable VASAS, DEMETRI Unavailable [address] + [place] [address] R Unavailable Unavailable Unavailable VASAS, DEMETRI Unavailable [address] + [place] [address] R Unavailable Unavailable Unavailable VASAS, DEMETRI Unavailable [address] + [place] [address] R Unavailable Unavailable Unavailable VASAS, DEMETRI Unavailable [address] + [place] [address] R Unavailable Unavailable Unavailable VASAS, DEMETRI Unavailable [address] + [place] [address] R Unavailable Unavailable Unavailable VASAS, DEMETRI Unavailable [address] + [place] [address] R Unavailable Unavailable Unavailable VASAS, DEMETRI Unavailable [address] + [place] [address] Care Team Providers Name Role Phone Rah Huerta Attending Unavailable [facility] Care Unavailable Sementi, Gail Admitting Unavailable Bakhous, Aziz Consulting Unavailable Ashelfah, Ghasem Attending Unavailable Fernando Hatch Consulting Unavailable Sementi, Gail Admitting Unavailable Sementi, Gail Attending Unavailable [facility] Care Unavailable Sementi, Gail Consulting Unavailable Sementi, Gail Admitting Unavailable [facility] Care Unavailable Bakhous, Aziz Consulting Unavailable Ashelfah, Ghasem Attending Unavailable Ashelfah, Ghasem Consulting Unavailable Sementi, Gail Admitting Unavailable Ehelfvamsi, Ghasem Attending Unavailable [facility] Care Unavailable Bakhous, Aziz Consulting Unavailable Holden, Moi Consulting Unavailable Ashelfah, Ghasem Consulting Unavailable Aliza Gail Admitting Unavailable Ashelfah, Ghasem Attending Unavailable [facility] Care Unavailable Bakhous, Aziz Consulting Unavailable Holden, Moi Consulting Unavailable Ashelfah, Ghasem Consulting Unavailable [facility] Unavailable Paintsil, Garland Admitting Unavailable Dane, Pablito Attending Unavailable Paintsil, Garland Admitting Unavailable Paintsil, Garland Attending Unavailable [facility] Unavailable Paintsil, Garland Consulting Unavailable Paintsil, Garland Admitting Unavailable [facility] [place] [facility] Unavailable Dane, Pablito Consulting Unavailable Dane, Pablito Attending Unavailable Paintsil, Garland Admitting Unavailable [facility] [place] [facility] Unavailable Dane, Pablito Consulting Unavailable Dane, Pablito Attending Unavailable [facility], Vijay Attending Unavailable [facility] Unavailable ANGEL MEDRANO Attending Unavailable ANGEL MEDRANO Referring Unavailable [facility] Care Unavailable Sydneyg, Chase Admitting Unavailable [facility] Care Unavailable Rah Barba Consulting Unavailable Maureen Siddiqui Attending Unavailable Oscar Wilson Consulting Unavailable Maureen Siddiqui Consulting Unavailable Maureen Siddiqui Attending Unavailable Agshiv, Chase Admitting Unavailable [facility] Unavailable Rah Barba Consulting Unavailable Oscar Wilson Consulting Unavailable rAtur, Maureen Consulting Unavailable Rah Huerta Attending Unavailable Tena Staples [employer] Attending Unavailable [facility] Care Unavailable Gera, Christiano Chi Admitting Unavailable Gera, Christiano Chi Attending Unavailable Gera, Christiano Chi Referring Unavailable [facility] Care Unavailable Agyepong, Chase Admitting Unavailable Jose Guadalupe Barton Attending Unavailable [facility] Unavailable Prashanth Meyeriz Consulting Unavailable Bernardino Drake Consulting Unavailable Jose Guadalupe Barton Consulting Unavailable Agshiv, Chase Admitting Unavailable [facility] Unavailable Roxys, Aziz Consulting Unavailable Dane, Pablito Attending Unavailable Noelle, Bernardino Consulting Unavailable Dane, Pablito Consulting Unavailable Agyepong, Chase Admitting Unavailable Agyeponsocorro, Chase Attending Unavailable [facility] Unavailable Sally, Chase Consulting Unavailable Jose Guadalupe Barton Attending Unavailable Marlon, Vijay Primary Care Unavailable Agyepong, Chase Admitting Unavailable Bakmakaylas, Prashanthiz Consulting Unavailable Noelle, Bernardino Consulting Unavailable StaplesTena STEM CLE[employer]ING MACHINE FEEDER-C Attending Unavailable [facility] Care Unavailable Staples, Tena STEM CLE[employer]ING [employer]ACHINE [employer]EDER-C Attending Unavailable Staples, Tena STEM CLEANING MACHINE FEEDER-C Attending Unavailable [facility] Care Unavailable [facility], Vijay Attending Unavailable [facility] Care Unavailable Staples, Tena [employer] CLE[employer]ING [employer]ACHINE [employer]EDER-C Attending Unavailable [facility] Care Unavailable Staples, Tena STEM CLE[employer]ING MACHINE FEEDER-C Attending Unavailable [facility] Care Unavailable Rah Huerta Attending Unavailable Agyepong, Chase Admitting Unavailable [facility] Care Unavailable Moodispaw, Rah Consulting Unavailable White, Maureen Attending Unavailable Steve, Marc Consulting Unavailable Artur, Maureen Consulting Unavailable Agyepong, Chase Admitting Unavailable Moodispafrance, Rah Attending Unavailable [facility] Care Unavailable Moodispafrance, Rah Consulting Unavailable Oscar Wilson Consulting Unavailable White, Maureen Consulting Unavailable Agyepong, Chase Admitting Unavailable Moodispafrance, Rah Attending Unavailable [facility] Care Unavailable Moodispafrance, Rah Consulting Unavailable Steve, Oscar Consulting Unavailable White, Maureen Consulting Unavailable Agyepong, Chase Admitting Unavailable Moodispafrance, Rah Attending Unavailable [facility] Care Unavailable Moodispafrance, Rah Consulting Unavailable EhelfMingo agustinasem Consulting Unavailable Agyepong, Chase Admitting Unavailable Agyepong, Chase Attending Unavailable [facility] Care Unavailable Agyepong, Chase Consulting Unavailable [facility] Care Unavailable Agyepong, Chase Admitting Unavailable Moodispafrance, Rah Consulting Unavailable Artur, Maureen Attending Unavailable Oscar Wilson Consulting Unavailable Marlon, Vijay Attending Unavailable [facility] Care Unavailable Gera, Christiano Chi Admitting Unavailable Gera, Christiano Chi Attending Unavailable Gera, Christiano Chi Referring Unavailable [facility] Care Unavailable Agyepong, Chase Admitting Unavailable Jose Guadalupe Barton Attending Unavailable [facility] Care Unavailable Roxys, Aziz Consulting Unavailable Noelle, Bernardino Consulting Unavailable Jose Guadalupe Barton Consulting Unavailable Agyepong, Chase Admitting Unavailable Jose Guadalupe Barton Attending Unavailable [facility] Care Unavailable Bakmakaylas, Aziz Consulting Unavailable Rdake, Bernardino Consulting Unavailable Jose Guadalupe Barton Consulting Unavailable Paintsil, Garland Admitting Unavailable Marlon, Vijay Primary Care Unavailable Dane, Pablito Consulting Unavailable Dane, Pablito Attending Unavailable AgChase chaney Admitting Unavailable Koluis miguel, Jose Guadalupe Choudhury Attending Unavailable Marlon, Vijay Primary Care Unavailable Bakhous, Aziz Consulting Unavailable Noelle, Bernardino Consulting Unavailable KotsoniJose Guadalupe bell Consulting Unavailable VarelaErnestine kirkpatrick Attending Unavailable Sementi, Gail Admitting Unavailable Ashelfah, Mingoasem Attending Unavailable Marlon, Vijay Primary Care Unavailable Bakhous, Aziz Consulting Unavailable Holden, Fernando Sahni Consulting Unavailable Ashelfah, Ghasem Consulting Unavailable MASCI, RAH A Referring Unavailable MASCI, RAH A Referring Unavailable MASCI, RAH A Referring Unavailable MASCI, RAH A Referring Unavailable MASCI, RAH A Referring Unavailable MASCI, RAH A Referring Unavailable MASCI, RAH A Referring Unavailable MASCI, RAH A Referring Unavailable MASCI, RAH A Referring Unavailable MASCI, RAH Pritchard Attending Unavailable MASCI, RAH A Referring Unavailable [...] Referring Unavailable MASCI, RAH Pritchard Referring Unavailable ANGEL MEDRANO Attending Unavailable MARLON, [...] and ANGEL MEDRANO Active [place] stenosis [facility] 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 / Repository I65.23(ICD-10) 05/17/2018 Active Other specified ANGEL MEDRANO Active [place] postprocedural [facility] Other states / [place] Z98.890(ICD-10) Repository 04/27/2016 Admitting Unknown / ANGEL MEDRANO Active [facility] UNK(Unknown) [facility] System Repository 04/28/2018 Unknown I89.0 - Lymphedema, Staples, Active [place] not elsewhere Tena [employer] Community classified / Hospital I89.0(ICD-10) Repository 05/07/2018 Unknown 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 bilateral carotid Hospital arteries / Repository I65.23(ICD-10) 04/25/2018 Unknown L00 - Staphylococcal Jhoan, 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 Tena [employer] Community syndrome / Hospital L00(ICD-10) Repository 03/04/2018 Unknown D64.9 - Anemia, MarlonVijay Active [place] unspecified / Community D64.9(ICD-10) Hospital Repository 03/01/2018 Unknown D69.6 - MarlonVijay arias Active [place] Thrombocytopenia, Community unspecified / Hospital D69.6(ICD-10) Repository 03/01/2018 Unknown E55.9 - Vitamin D Vijay Mason Active [place] deficiency, Community unspecified / Hospital E55.9(ICD-10) Repository 03/01/2018 Unknown N18.3 - Chronic MarlonVijay Active [place] kidney disease, Community stage 3 (moderate) / Hospital N18.3(ICD-10) Repository 01/30/2018 Active Anemia in chronic NA Active [place] kidney disease / Clinic Main D63.1(ICD-10) [place] Repository 01/30/2018 Active Chronic kidney NA Active [place] disease, stage 3 Clinic Main (moderate) / [place] N18.3(ICD-10) Repository 01/27/2018 Unknown Z00.00 - Encounter Jhoan Active [place] for general adult Tena [employer] medical examination Hospital without abnormal Repository findings / Z00.00(ICD-10) 11/21/2017 Active Chronic kidney NA Active [place] disease, unspecified Clinic Main / N18.9(ICD-10) [place] Repository PROCEDURES PROCEDURES No Procedure Records FoundRESULTS RESULTS DISCHARGE SUMMARY Observed: 10/16/2018 Status: F Source: [place] 4:21 PM [facility] REPOSITORY [facility] Medical Records Department [address] [place] [address] Discharge Summary 10/16/18 1238 MR#: [id number] Acct: [id number] Name: DOUG CAST Rep #: [id number] : 1935 83 From: Lion BARONE PCP: Vijay Mason MD Status: ADM IN Y Location: [place] [address] ADDENDUM by Pablito Vela MD on 10/16/18 at 1621 Code Visit Patient was seen and examined today. Patient is more awake alert and oriented x3. Patient's xlueyyyi-eh-asd present in the room. Physical exam findings General: Alert, Oriented x3, Cooperative HEENT: Atraumatic, PERRLA, EOMI, Normocephalic Neck: Supple, No JVD, Negative Carotid Bruits Lungs: Clear to auscultation, air entry diminished in bilateral lung bases. Cardiovascular: Regular rate, No murmurs/gallops/rubs Abdomen: Bowel Sounds Present, Soft, Non Tender Extremities: No edema, Capillary Refill Less than 3 Seconds. bilateral legs Patito wrap bandage. Skin: No rashes, No breakdown Musculoskeletal: No Tenderness to Palpation of Joints or Extremities Neurological: Cranial nerves II-XII grossly intact Psych/Mental Status: Normal Affect, Appropriate, Alert and oriented to time, place, person, mood and affect 10/16/18 1621 <Electronically signed by Pablito Vela MD> Date Pablito Vela MD cc: ABISAI Green; Pablito Vela MD; Vijay Mason MD * Signed <Lion Green - Last Filed: 10/16/18 12:38> Discharge Date and Diagnosis - Problem List Patient Problems: Active and Suspected Problems Acute delirium (Acute) Altered mental status (Acute) Date of Admission: 10/13/18 Date of Discharge: 10/16/18 - Primary Discharge Diagnosis Active and Suspected Problems Acute metabolic encephalopathy 2/2 UTI - Candidal Acute hypoxic respiratory failure secondary to Ativan administration C. difficile colitis CKD stage III Chronic atrial fibrillation Chronic diastolic congestive heart failure pulmonary hypertension History of CVA Chronic normocytic anemia BPH Dysphagia Chronic lymphedema Depression - Secondary Discharge Diagnosis Chronic Problems Atrial [...] (Chronic) Hospital Course and Treatment Imaging Results: CT/Brain/Head without Contrast IMPRESSION: No CT evidence of acute infarct or hemorrhage. Stable left frontal and parietal encephalomalacia. If there is clinical concern for hyperacute ischemia that is not evident by CT, MRI should be considered if possible. 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 Stable alveolar disease on the right. Progressing right pleural fluid. Stable left pleural fluid. Consults: Hospice Operations: None Procedures: None Summary of Care Provided: Hospital course: The patient is a 83 year old M with past medical history as above who was recently discharged from the hospital to TCU, was recently been admitted to the hospital with CHF, A. fib with RVR, pneumonia, bacteremia, C. difficile, AK I, who was sent from TCU to the emergency room with increased confusion. He was found to have a UTI. He was given Ativan for agitation and became hypoxic and developed respiratory failure. He was admitted to the PCU no further benzodiazepines were given. His breathing improved with BiPAP overnight and he was weaned back to his baseline oxygen. He was given Rocephin for UTI. Urine culture demonstrated Marzena albicans and he was placed on fluconazole. While admitted he became very upset and temporarily was refusing all medications, was refusing oxygen. He desired for all of his care to be discontinued. His family was contacted and he was made DNR CCA. He temporarily allowed us to resume medication administration. The following day further discussion was had about his CODE STATUS and his desires. He desired with his multiple hospitalizations, continued functional decline, multiple ongoing chronic medical issues, and loss of will to live, that he be allowed to . Hospice was consulted. He did not qualify for inpatient hospice and it was decided that he would go home with hospice. He was made DNR CC only. We have prescribed him oral fluconazole to clear his UTI. He will finish the previous course of oral vancomycin prescribed for C diff. He was discharged home with hospice in stable condition. His follow-up with your PCP in 1-2 weeks and with hospice as directed. This patient was seen by Lion Green PA-C under the supervision of Doctor Vela. [] Patient Problems: Active and Suspected Problems Acute delirium (Acute) Altered mental status (Acute) - Physical Exam General: Alert, Oriented [...] Cranial nerves II-XII grossly intact Psych/Mental Status: Depressed, Alert and oriented to time, place, person, mood and affect Vital Signs Temp Pulse Resp BP Pulse Ox 96.9 F L 62 32 H 183/51 H 97 10/16/18 10:48 10/16/18 11:02 10/16/18 10:48 10/16/18 10:48 10/16/18 10:48 Oxygen Flow Rate (L/min) 2 Oxygen Delivery Method Nasal Cannula Weight: 164 lb 7.437 oz Body Mass Index (BMI) 24.9 Finger Stick Blood Glucose 122 Intake and Output for Last 24 Hours Intake Total 1104.7 / 1104.7 1083 / 1083 70 / 70 Balance 1104.7 / 1104.7 1083 / 1083 70 / 70 Microbiology Past 72 Hours 10/13/18 08:05 Urine Culture - Final Urine, Random Marzena albicans 10/13/18 Unknown Blood Culture - Preliminary Discharge Diet: No Restrictions Discharge Activity: Return to Normal Activity Home [...] PO Liquid 125 mg PO Q6 10/12/18 Bisacodyl [Dulcolax] 10 mg PO DAILY PRN 10/13/18 Menthol/Lanolin/Calamine/Znox [Calmoseptine Ointment] 1 applic TP TID 10/13/18 Nystatin Powder [Mycostatin Powder] 1 applic TOPICAL BID 10/13/18 Polyethylene Glycol 3350 [Miralax] 17 gm PO DAILY 10/13/18 Fluconazole [Diflucan] 200 mg PO DAILY #13 tablet 10/16/18 Following Prescrptions Were Given to Patient: Fluconazole [Diflucan] 200 mg PO DAILY #13 tablet Primary Care Physician: Vijay Mason MD [Primary Care Provider] - Please follow up with your Primary Care Physician in: 1-2 weeks Please Follow Up With: Hospice - Home hospice When: As directed Disposition: Home with Hospice Minutes spent on discharge:: 40 Patient Condition:: Stable Medical Necessity - Tobacco Use Smoking Status: Never smoker Tobacco Use: Non-smoker Meaningful Use Info Meaningful Use Diagnoses (Choose all that apply): None applicable <Pablito Vela - Last Filed: 10/16/18 16:18> Discharge Date and Diagnosis - Primary Discharge Diagnosis Active and Suspected Problems Acute delirium (Acute) Altered mental status (Acute) - Secondary Discharge Diagnosis Chronic Problems [...] prostatic hyperplasia) (Chronic) Hospital Course and Treatment Summary of Care Provided: This patient was seen in conjunction with Lion BARONE. I have independently interviewed and examined the patient and reviewed pertinent history, examination findings, laboratory and plan of management. I have reviewed the note and agree with the documented findings with the few additional points. In brief, patient is admitted for metabolic encephalopathy and acute on chronic combined hypoxic and hypercarbic respiratory failure probably related to medication/Ativan. Has multiple admissions, recent 1 for CHF with A. fib with RVR, C. difficile, AK I, bacteremia most probably secondary to pneumonia and was transferred to TCU from where he got admitted at this time. On intermittent BiPAP at night. Continue IV Flagyl for C. difficile colitis. Urine culture shows 25,000-50,000 Marzena albicans. Diflucan added. Hospice was consulted. Patient is DNR CC. Patient is discharged home with home hospice care. Multiple comorbidities complicates the present care and expect difficult and delay recovery Discharge medication reconciliation done. Discharge follow- up instructions discussed with the patient's xujdxpzq-lw-eri. Hospital course and discharge planning discussed with the patient's abwmbejj-ap-qni and she agrees. Total time spent, exact 35 minutes on discharge meds reconciliation, examination, review of imaging and blood test and discussion with the patient on follow-up instructions. I have discussed my assessment with Lion BARONE and orders have been reviewed. [] - Physical Exam Vital Signs Temp Pulse Resp BP Pulse Ox 96.9 F L 60 24 H 172/64 H 96 10/16/18 12:41 10/16/18 12:41 10/16/18 12:41 10/16/18 12:41 10/16/18 12:41 Oxygen Flow Rate (L/min) 2 Oxygen Delivery Method Nasal Cannula Weight: 164 lb 7.437 oz Body Mass Index (BMI) 24.9 Finger Stick Blood Glucose 122 Intake and Output for Last 24 Hours Intake Total 1104.7 / 1104.7 1083 / 1083 100 / 100 Balance 1104.7 / 1104.7 1083 / 1083 100 / 100 Microbiology Past 72 Hours 10/13/18 08:05 Urine Culture - Final Urine, Random Marzena albicans 10/13/18 Unknown Blood Culture - Preliminary Code Visit Inpatient E AND M: 76840 Disch Hosp 10/16/18 1246 <Electronically signed by Lion BARONE> Date Lion BARONE 10/16/18 1618<Electronically signed by Pablito Vela MD> Cosigner Signature (if applicable): Date Pablito Vela MD CC: ABISAI Grene; Pablito Vela MD; Vijay Mason MD Signed 12 LEAD ELECTROCARDIOGRAM Observed: 10/16/2018 Status: F Source: MARK 3:06 PM [facility] REPOSIT[facility] Cardiovascular Services [address], [place] [address] 12 Lead EKG 10/13/18 0617 MR#: [id number] Acct: [id number] Name: DOUG CAST Rep #: [id number] : 1935 83 From: Bhavesh Maxwell MD Attending Dr: Pablito Vela MD Status: ADM IN Ordering Dr: Stanislaw Jaimes MD Date: 10/13/18 Location: [facility] Sex: M C Admitted: 10/13/18 Test Reason : ILL Blood Pressure : / mmHG Vent. Rate : 059 BPM Atrial Rate : 059 BPM P-R Int : 270 ms QRS Dur : 150 ms QT Int : 506 ms P-R-T Axes : 045 -52 -05 degrees QTc Int : 500 ms Sinus bradycardia with 1st degree A-V block with occasional Premature ventricular complexes Right bundle branch block Left anterior fascicular block Bifascicular block Abnormal ECG Confirmed by BHAVESH MAXWELL MD ([id number]), desk editor SARY MA ([id number]) on 10/16/2018 3:06:12 PM Referred By: NUNO Confirmed By:BHAVESH MAXWELL MD 10/16/18 1506 Date Bhavesh Maxwell MD CC: Stanislaw Jaimes MD; Pablito Vela MD; Vijay Mason MD Signed DISCHARGE INSTRUCTION Observed: 10/16/2018 Status: F Source: MARK 12:37 PM [facility] REPOSIT[facility] Medical Records Department [address] [place] [address] Instructions for Home/Discharge Instructions 10/16/18 1236 MR#: [id number] Acct: [id number] Name: DOUG CAST Brittani Rep #: [id number] : 1935 83 From: Lion BARONE PCP: Vijay Mason MD Status: ADM IN - Discharge Diagnoses Current Active Problems: Current Active and Chronic Problems Acute delirium (Acute) Altered mental status (Acute) You will use the following diet at home:: No restrictions Your food should be the consistency of: Regular Your liquids should be the consistency of: Regular/Thin Discharge Activity: Return to Normal Activity Allergies/Adverse Reactions: Allergies No Known Allergies Allergy (Verified 12/16/18 05:23) Medications to take at Discharge Labetalol [...] PO Liquid 125 mg PO Q6 10/12/18 Bisacodyl [Dulcolax] 10 mg PO DAILY PRN 10/13/18 Menthol/Lanolin/Calamine/Znox [Calmoseptine Ointment] 1 applic TP TID 10/13/18 Nystatin Powder [Mycostatin Powder] 1 applic TOPICAL BID 10/13/18 Polyethylene Glycol 3350 [Miralax] 17 gm PO DAILY 10/13/18 Fluconazole [Diflucan] 200 mg PO DAILY #13 tablet 10/16/18 The following prescriptions were given: Fluconazole [Diflucan] 200 mg PO DAILY #13 tablet Primary Care Physician: Vijay Mason MD [Primary Care Provider] - Please follow up with your Primary Care Physician in: 1-2 weeks Test Results: Test results from this visit will be discussed in further detail at your follow-up appointment, if applicable. Please Follow Up With: Hospice - Home hospice When: As directed Proposed Discharge Date: 10/16/18 10/16/18 1237 <Electronically signed by Lion BARONE> Date Lion BARONE CC: Vijay Mason MD CBC W/DIFF, AUTOMATED Collected: 10/15/2018 Status: F Source: MARK 5:13 AM [facility] REPOSITORY TYPE CODE TESTS RESULT OUT OF [...] Normal 1+ Performed By: #### L100.0100 #### [facility] [address] [place], [place], [address] BASIC METABOLIC Collected: 10/15/2018 Status: F Source: [place] PROFILE (BMP) 5:00 AM [facility] REPOSIT[facility] TYPE CODE TESTS RESULT OUT OF [...] GAP 7 Performed By: #### L500.2500 #### [facility] [address] [place], [address] BASIC METABOLIC Collected: 10/14/2018 Status: F Source: [place] PROFILE (BMP) 6:30 AM [facility] REPOSIT[facility] TYPE CODE TESTS RESULT OUT OF [...] GAP 6 Performed By: #### L500.2500 #### [facility] [address] [place], [address] HISTORY AND PHYSICAL Observed: 10/13/2018 Status: F Source: MARK EXAM 4:59 PM [facility] REPOSITORY [facility] Medical Records Department [address] [place] [address] History and Physical 10/13/18 0748 MR#: [id number] Acct: [id number] Name: DOUG CAST Rep #: [id number] : 1935 83 From: Linda Syed MD PCP: Vijay Mason MD Status: ADM IN Y Location: [place] [address] Problem List (1) Acute delirium Status: Acute [...] Psychiatric History: No pertinent psych hx Lives: Snf Smoking Status: Never smoker Tobacco Use: Non-smoker [...] Full code. Discussed code status with patient's mveruijq-xb-sch who will discuss with the son who is her . Agrees that patient should not be full code. The son will get back to the treatment staff on the expectations and plan. I discussed patient's care at the moment in detail. Code Visit Inpatient E AND M: 12735 Init Hosp L3 10/13/18 1659 <Electronically signed by Linda Syed MD> Date Linda Syed MD Cosigner Signature: Date (if applicable) CC: Linda Syed MD; Vijay Mason MD Signed TROPONIN-I Collected: 10/13/2018 Status: F Source: MARK 3:47 PM [facility] REPOSITORY Order Comment: 'TROP' Serial specimen #1, #2 or #3: 3 TYPE CODE TESTS RESULT OUT OF RANGE REFERENCE UNITS LAB L501.4010 <0.045 ng/mL Normal < 0.015 TROPONIN-I Result Comment: TROPONIN-I EXPECTED VALUES <0.045 Negative 0.045 - 0.590 Consistent with Cardiac Damage > OR = 0.600 Critical Value Not every elevated troponin is indicative of [place]. These values should be used with clinical judgement in examining the patient's clinical picture for diagnosis. To establish a diagnosis of [place] versus myocardial injury, there must be a demonstrated rise and/or fall in the troponin values, in addition to ischemic symptoms, EKG changes, new regional wall motion abnormality, and/or angiographical evidence. PLEASE NOTE: REFERENCE RANGES EDITED 18 Performed By: #### L501.4010 #### [facility] [address] [place], [place], [address] BLOOD GASES BY [facility] Collected: 10/13/2018 Status: F Source: [place] 2:24 PM [facility] REPOSIT[facility] TYPE CODE TESTS RESULT OUT OF [...] ISTAT 95 Performed By: #### L9000.0800 #### [facility] Point of Care [address] [place], [place] [address] TROPONIN-I Collected: 10/13/2018 Status: F Source: [place] 1:45 PM [facility] REPOS[facility] Order Comment: 'TROP' Serial specimen #1, #2 or #3: 2 TYPE CODE TESTS RESULT OUT OF RANGE REFERENCE UNITS LAB L501.4010 <0.045 ng/mL Normal < 0.015 TROPONIN-I Result Comment: TROPONIN-I EXPECTED VALUES <0.045 Negative 0.045 - 0.590 Consistent with Cardiac Damage > OR = 0.600 Critical Value Not every elevated troponin is indicative of [place]. These values should be used with clinical judgement in examining the patient's clinical picture for diagnosis. To establish a diagnosis of [place] versus myocardial injury, there must be a demonstrated rise and/or fall in the troponin values, in addition to ischemic symptoms, EKG changes, new regional wall motion abnormality, and/or angiographical evidence. PLEASE NOTE: REFERENCE RANGES EDITED 18 Performed By: #### L501.4010 #### [facility] [address] [place], [place], [address] BLOOD GASES BY [facility] Collected: 10/13/2018 Status: F Source: [place] 10:52 AM [facility] REPOSIT[facility] TYPE CODE TESTS RESULT OUT OF [...] ISTAT 100 Performed By: #### L9000.0800 #### [facility] Point of Care [address] [place], [place] [address] DISCHARGE SUMMARY Observed: 10/13/2018 Status: F Source: [place] 10:07 AM [facility] REPOSITORY [facility] Medical Records Department [address] [place] [address] Discharge Summary 10/13/18 1005 MR#: [id number] Acct: [id number] Name: DOUG CAST Rep #: [id number] : 1935 83 From: Christiano Boss MD PCP: Vijay Mason MD Status: DIS IN Y Location: [place] [address] Discharge Date and Diagnosis - Problem List [...] Course and Treatment Consultations 10/12/18 16:31 Consult: Onc/Wound/maths tutor Routine Comment: Reason for Consult:: 2 PRESSURE [...] > 20, also more confused. Discharge to [facility] Emergency Department for evaluation, admission to [...] Vijay Mason MD When: after discharge Disposition: [facility] Minutes spent on discharge:: 15 Patient [...] DISCHARGE INSTRUCTION Observed: 10/13/2018 Status: F Source: [place] 10:04 AM [facility] REPOSITORY [facility] Medical Records Department [address] [place] [address] Instructions for Home/Discharge Instructions 10/13/18 1003 MR#: [id number] Acct: [id number] Name: DOUG CAST Rep #: [id number] : 1935 83 From: Christiano Boss MD [...] 10/13/2018 Status: F Source: MARK 9:40 AM [facility] REPOSIT[facility] TYPE CODE TESTS RESULT OUT OF [...] Lymph 0.50 Performed By: #### L100.0100 #### [facility] [address] [place], [place], [address] BNP,B-TYPE NATRIURETIC Collected: 10/13/2018 Status: F Source: [place] PEPTIDE 9:40 AM [facility] REPOSITORY Order Comment: Comments: as add on test TYPE CODE TESTS RESULT OUT OF RANGE REFERENCE UNITS LAB L503.6620 0-100 pg/mL High B-TYPE 166.1 ARNOLD PEP Performed By: #### L503.6620 #### [facility] [address] [place], [place], [address] TROPONIN-I Collected: 10/13/2018 Status: F Source: [place] 9:40 AM [facility] REPOSIT[facility] Order Comment: 'TROP' Serial specimen #1, #2 or #3: 1 TYPE CODE TESTS RESULT OUT OF RANGE REFERENCE UNITS LAB L501.4010 <0.045 ng/mL Normal < 0.015 TROPONIN-I Result Comment: TROPONIN-I EXPECTED VALUES <0.045 Negative 0.045 - 0.590 Consistent with Cardiac Damage > OR = 0.600 Critical Value Not every elevated troponin is indicative of [place]. These values should be used with clinical judgement in examining the patient's clinical picture for diagnosis. To establish a diagnosis of [place] versus myocardial injury, there must be a demonstrated rise and/or fall in the troponin values, in addition to ischemic symptoms, EKG changes, new regional wall motion abnormality, and/or angiographical evidence. PLEASE NOTE: REFERENCE RANGES EDITED 18 Performed By: #### L501.4010 #### [facility] [address] [place], [address] LACTIC ACID Collected: 10/13/2018 Status: F Source: [place] 8:45 AM [facility] REPOSITORY Order Comment: Yes/No query for Sepsis Lactate Rule Y TYPE CODE TESTS RESULT OUT OF RANGE REFERENCE UNITS LAB L503.6005 0.4-2.0 mmol/L Normal LACTIC ACID 0.8 Performed By: #### L503.6005 #### [facility] [address] [place], [address] EMERGENCY DEPARTMENT Observed: 10/13/2018 Status: C Source: [place] SUMMARY 8:35 AM [facility] REPOSITORY [facility] Medical Records Department [address] [place] [address] Emergency Department Summary 10/13/18 0736 MR#: [id number] Acct: [id number] Name: DOUG CAST Rep #: [id number] : 1935 83 From: Stanislaw Jaimes MD PCP: Vijay Mason MD Status: ADM IN ADDENDUM by Kary Ivan MD on 10/13/18 at 0835 Patient was signed out to ar pending transfer to the floor. Patient's urinalysis [...] CHF Delirium This note was generated with [employer] dictation software. It may contain incorrect words, [...] your Primary Care Provider. Call [facility] ([phone]) or report to the closest Emergency Room. Call 911 if necessary. 10/13/18 0742 <Electronically signed by Stanislaw Jaimes MD> Date Stanislaw Jaimes MD Cosigner Signature (If Indicated): Date CC: Vijay Mason MD URINALYSIS, COMPLETE Collected: 10/13/2018 Status: F Source: MARK 8:05 AM [facility] REPOSITORY Order Comment: How was Urine Obtained? [...] Normal AMORPHOUS Performed By: #### L400.0001 #### [facility] [address] [place], [address] Observed: 10/13/2018 Status: F Source: [place] CULTURE, URINE 8:05 AM [facility] REPOSITORY Comments: use off of urine already collected Has pt arrived? Y Urine Culture ORGANISM 1: Marzena albicans [place] Count 25,000-50,000 Performed By: #### M100.0650 #### [facility] [address] [place], [address] CBC W/DIFF, AUTOMATED Collected: 10/13/2018 Status: F Source: [place] 6:19 AM [facility] REPOSIT[facility] TYPE CODE TESTS RESULT OUT OF [...] Lymph 0.52 Performed By: #### L100.0100 #### [facility] [address] [place], [place], [address] COMPREHENSIVE METABOLIC Collected: 10/13/2018 Status: F Source: [facility] 6:19 AM [facility] REPOSIT[facility] TYPE CODE TESTS RESULT OUT OF [...] GAP 4 Performed By: #### L500.4050 #### [facility] [address] [place], [address] CHEST 1 VIEW Observed: 10/13/2018 Status: F Source: [place] (PORTABLE) 6:06 AM [facility] REPOSITORY [facility] Imaging Services [address] [place] [address] Chest 1 View (Portable) MR#: [id number] Acct: [id number] Name: DOUG CAST Rep #: [id number] : 1935 M 83 From: Carmelo Canseco MD PCP: Vijay Mason MD Status: REG ER Study: Chest 1 View (Portable) Date of Exam: 10/13/18 Exam# [id number] Ordering Dr: Stanislaw Jaimes MD STUDY: X-RAY [...] CC: Stanislaw Jaimes MD; Vijay Mason MD Registered Dental Assistant Rda: Signed BRAIN/HEAD WITHOUT Observed: 10/13/2018 Status: F Source: [place] CONTRAST 6:06 AM [facility] REPOSITORY [facility] Imaging Services [address] [place], [place] [address] [address] Brain/Head without Contrast MR#: [id number] Acct: [id number] Name: DOUG CAST Brittani Rep #: [id number] : 1935 M 83 From: Carmelo Canseco MD PCP: Vijay Mason MD Status: REG ER Study: Brain/Head without Contrast Date of Exam: 10/13/18 Exam# [id number] Ordering Dr: Stanislaw Jaimes MD STUDY: CT [...] CC: Stanislaw Jaimes MD; Vijay Mason MD Registered Dental Assistant Rda: Signed BEDSIDE GLUCOSE Collected: 10/13/2018 Status: F Source: [place] 4:34 AM [facility] REPOSITORY TYPE CODE TESTS RESULT OUT OF RANGE REFERENCE UNITS LAB L501.080 70-110 mg/dL Normal BEDSIDE GLU 86 Result Comment: MANAGEMENT OF PATIENT CARE PER NURSING PROTOCOL Performed By: #### L501.080 #### [facility] Point of Care [address] [place] [address] Observed: 10/13/2018 Status: F Source: [place] CULTURE, BLOOD (WB) 12:00 AM [facility] REPOSITORY BC No growth in 5 days. Performed By: #### M200.1000 #### [facility] [address] [place], [address] Observed: 10/13/2018 Status: F Source: [place] CULTURE, BLOOD (WB) 12:00 AM [facility] REPOSIT[facility] BC No growth in 5 days. Performed By: #### M200.1000 #### [facility] [address] [place], [address] HISTORY AND PHYSICAL Observed: 10/12/2018 Status: F Source: [place] EXAM 5:52 PM [facility] REPOSITORY [facility] Medical Records Department [address] [facility] [place] [address] History and Physical 10/12/18 1728 MR#: [id number] Acct: [id number] Name: DOUG CAST Rep #: [id number] : 1935 83 From: Christiano Boss MD PCP: Vijay Mason MD Status: ADM IN Y Location: [place] [address] Problem List (1) Diarrhea Status: Acute (2) [...] with below past medical history presented to [facility] Emergency Department 10/08/2018 with abnormal labs. [...] - Most recently, at [facility] in [place]. Smoking Status: Never smoker Tobacco Use: Non-smoker [...] high, consider tapering or prophylaxis dose. 10/12/18 5598 <Electronically signed by Christiano Boss MD> Date Christiano Boss MD Cosign Signature: Date (if applicable) CC: Vijay Mason MD; Christiano Boss MD Signed DISCHARGE SUMMARY Observed: 10/12/2018 Status: F Source: MARK 1:01 PM [facility] REPOSITORY [facility] Medical Records Department [address] [place] [address] Discharge Summary 10/12/18 1253 MR#: [id number] Acct: [id number] Name: SEGUNDOUG Rep #: [id number] : 1935 83 From: Nanda Canada MD PCP: Vijay Mason MD Status: ADM IN Location: [facility] [id number] Discharge Date and Diagnosis Date of Admission: [...] Service support , Consultations 10/09/18 01:05 Consult: Onc/Wound/maths tutor Routine Comment: Reason for Consult:: coccyx wound, [...] 1 week. This note was generated with [employer] software. It may contain incorrect words, spelling, [...] for Last 24 Hours Intake Total 2112 / 3 1396 / 1396 1581 / 1581 Output Total 100 / 100 Balance 2112 / 2112 1296 / 1296 1581 / 1581 [...] Robby Stephens MD When: 2 weeks. [facility]position: [facility] Minutes spent on discharge:: 34 Patient Condition:: Stable Medical Necessity - Tobacco Use Smoking Status: Never smoker Tobacco Use: Non-smoker Meaningful Use Info Meaningful Use Diagnoses (Choose all that apply): None applicable Code Visit Inpatient E AND M: 38595 Disch Hosp 10/12/18 1301 <Electronically signed by Nanda Canada MD> Date Nanda Canada MD Cosigner Signature (if applicable): Date CC: Zakia Meyer MD; Nanda Canada; Diane Rosario M.D.; Vijay Mason MD Signed TRANSFER TO [facility] Observed: 10/12/2018 Status: F Source: [facility] 9:37 AM [facility] REPOSITORY [facility] Medical Records Department [address] [place] [address] Transfer to [facility] Care MR#: [id number] Acct: [id number] Name: DOUG CAST Brittani Rep #: [id number] : 1935 83 From: Nanda Canada MD PCP: Vijay Mason MD Status: ADM IN DOUG CAST Brittani [id number] (Patient) (Health Ins. Claim No.) (Day of Discharge to Facility) Certification of patient admission REQUIRED AT TIME OF ADMISSION. I CERTIFY THAT POST-HOSPITAL ECF SERVICES ARE REQUIRED TO BE GIVEN ON AN IN-PATIENT BASIS BECAUSE OF THE ABOVE NAMED PATIENT'S NEED FOR RESIDENTIAL CARE ON A CONTINUING BASIS FOR THE CONDITION(S) FOR WHICH HE/SHE WAS RECEIVING IN-PATIENT HOSPITAL SERVICES PRIOR TO HIS/HER TRANSFER TO THE ECF. 10/12/18 0937 <Electronically signed by Nanda Canada [...] F Source: [place] PROFILE (BMP) 6:24 AM [facility] REPOSITORY TYPE CODE TESTS RESULT OUT OF [...] GAP 6 Performed By: #### L500.2500 #### [facility] [address] [facility] [place], [place], [address] CBC W/DIFF, AUTOMATED Collected: 10/12/2018 Status: F Source: [place] 6:24 AM [facility] REPOSITORY TYPE CODE TESTS RESULT OUT OF [...] Lymph 0.49 Performed By: #### L100.0100 #### [facility] [address] [place], [place] [address] [facility], [address] CBC W/DIFF, AUTOMATED Collected: 10/11/2018 Status: F Source: [place] 5:38 AM [facility] REPOSITORY TYPE CODE TESTS RESULT OUT OF [...] Lymph 0.55 Performed By: #### L100.0100 #### [facility] [address] [place], [address] BASIC METABOLIC Collected: 10/11/2018 Status: F Source: [place] PROFILE ([facility]) 5:38 AM [facility] REPOSITORY TYPE CODE TESTS RESULT OUT OF [...] GAP 5 Performed By: #### L500.2500 #### [facility] [address] [place], [address] CONSULTATION Observed: 10/10/2018 Status: F Source: [place] 8:05 AM [facility] REPOSITORY [facility] Medical Records Department [address] [place] [address] Consultation 10/10/18 0803 MR#: [id number] Acct: [id number] Name: DOUG CAST Rep #: [id number] : 1935 83 From: Fernando Hatch MD PCP: Vijay Mason MD Status: ADM IN Location: [place] [address] Reason for Consult Date of Consultation: 10/10/18 Reason for Consultation: kidney stone History of Present Illness: The patient is a 83 [facility] with [facility] medical problems and as [...] Family, - [place] Smoking Status: Never smoker Tobacco Use: Non-smoker [...] 10/10/2018 Status: F Source: [place] 5:50 AM [facility] REPOSITORY TYPE CODE TESTS RESULT OUT OF [...] Lymph 0.42 Performed By: #### L100.0100 #### [facility] [address] [place] [address]. [place], [place], [address] BASIC METABOLIC Collected: 10/10/2018 Status: F Source: [place] PROFILE (BMP) 5:50 AM [facility] REPOSITORY TYPE CODE TESTS RESULT OUT OF [...] 6 Performed By: #### L500.2500, L501.5200 #### [facility] [address] [place], [address] MAGNESIUM Collected: 10/10/2018 Status: F Source: MARK 5:50 AM [facility] REPOSITORY TYPE CODE TESTS RESULT OUT OF RANGE REFERENCE UNITS LAB L501.5200 1.6-2.6 mg/dL Normal MG 2.0 Performed By: #### L500.2500, L501.5200 #### [facility] [address] [place], [address] ABDOMEN/PELVIS WITHOUT Observed: 10/09/2018 Status: F Source: MARK CONT 7:38 PM [facility] HOSPITAL REPOSITORY [facility] Imaging Services [address] [place] [address] Abdomen/Pelvis without Cont MR#: [id number] Acct: [id number] Name: SEGUNDOUG Brittani Rep #: [id number] : 1935 M 83 From: Baltazar Moctezuma MD PCP: Vijay Mason MD Status: ADM IN Study: Abdomen/Pelvis without Cont Date of Exam: 10/09/18 Exam# [id number] Ordering Dr: Nanda Canada MD STUDY: CT [...] , CC: Nanda Canada; Vijay Mason MD Registered Dental Assistant Rda: Signed UREA NITROGEN, URINE Collected: 10/09/2018 Status: F Source: MARK 10:20 AM [facility] REPOSITORY TYPE CODE TESTS RESULT OUT OF RANGE REFERENCE UNITS LAB L502.0715 NO RANGE EST. mg/dL Normal URINE 793 UREA Performed By: #### L502.0715 #### [facility] [address] [place], [address] CREATININE, URINE Collected: 10/09/2018 Status: F Source: MARK (RANDOM) 10:20 AM [facility] REPOSITORY TYPE CODE TESTS RESULT OUT OF RANGE REFERENCE UNITS LAB L501.1200 NO RANGE EST. mg/dL Normal UR CREAT 88.30 Performed By: #### L501.1200 #### [facility] [address] [facility] [place], [address] CONSULTATION Observed: 10/09/2018 Status: F Source: MARK 7:39 AM [facility] REPOSITORY [facility] Medical Records Department [address] [place] [address] Consultation 10/09/18 0731 MR#: [id number] Acct: [id number] Name: DOUG CAST Rep #: [id number] : 1935 83 From: Zakia Meyer MD PCP: Vijay Mason MD Status: ADM IN Location: [facility] [id number] Problem List (1) Acute kidney injury superimposed [...] in July 2018. Patient was sent to [facility] from residential due to diarrhea. Stool test came back positive for blood. Patient was on antibiotics at the residential for pneumonia treatment. Patient was admitted for [...] Lasix 40 mg p.o. daily at the residential. No NSAIDs used. No recent IV contrast [...] sob/wheezing Allopurinol (Zyloprim) 300 mg PO DAILY [facility] Amoxicillin (Amoxil) 500 mg PO Q12 [facility] Last Admin: 10/08/18 21:50 Dose: 500 mg Apixaban (Eliquis) 2.5 mg PO BID [facility] Last Admin: 10/08/18 21:50 Dose: 2.5 mg Aspirin (Ecotrin) 81 mg PO DAILY [facility] Epoetin Royer (Procrit) 10,000 units SC Q14D [facility] Ergocalciferol (Vitamin D) 50,000 unit PO BURGOS [facility] Finasteride (Proscar) 5 mg PO DAILY [facility] Furosemide (Lasix) 40 mg PO DAILY [facility] Guaifenesin (Mucinex) 1,200 mg PO BID [facility] Last Admin: 10/08/18 21:51 Dose: 1,200 mg Hydrocortisone Acetate (Anusol Hc) 25 mg RECTAL BID [facility] Stop: 10/11/18 10:01 Last Admin: 10/08/18 23:54 Dose: 25 mg Hydrocortisone Acetate (Anusol Hc) 25 mg RECTAL BID PRN PRN Labetalol HCl (Trandate) 200 mg PO BID [facility] Last Admin: 10/08/18 21:50 Dose: 200 mg Nutritional Formula (Morales - Kramer Flavor) [facility] Nutritional Formula (Nepro Carb Steady) 120 ml PO 4X/DAY [facility] Polysaccharide Iron Complex (Ferrex 150) 150 mg [facility] Potassium Chloride (K-Dur) 20 meq [facility] Stop: 10/09/18 08:01 Last Admin: 10/08/18 21:50 Dose: 20 meq Pravastatin Sodium (Pravachol) 40 mg PO QHS [facility] Last Admin: 10/08/18 21:50 Dose: 40 [...] BLOOD CNT Collected: 10/09/2018 Status: F Source: [place] NO DIFF 5:04 AM [facility] REPOSITORY TYPE CODE TESTS RESULT OUT OF [...] MPV 12.1 Performed By: #### L100.0500 #### [facility] [place], [address] COMPREHENSIVE METABOLIC Collected: 10/09/2018 Status: F Source: [place] LAST 5:04 AM [facility] REPOSITORY TYPE CODE TESTS RESULT OUT OF [...] Performed By: #### L500.4050, L501.2300, L501.5200 #### [facility] [address] [place], [address] PHOSPHORUS Collected: 10/09/2018 Status: F Source: MARK 5:04 AM [facility] REPOSITORY TYPE CODE TESTS RESULT OUT OF RANGE REFERENCE UNITS LAB L501.2300 2.5-4.9 mg/dL Normal PHOS 4.1 Performed By: #### L500.4050, L501.2300, L501.5200 #### [facility] [address] [place], [address] MAGNESIUM Collected: 10/09/2018 Status: F Source: MARK 5:04 AM [facility] REPOSITORY TYPE CODE TESTS RESULT OUT OF RANGE REFERENCE UNITS LAB L501.5200 1.6-2.6 mg/dL Normal MG 2.0 Performed By: #### L500.4050, L501.2300, L501.5200 #### [facility] [address] [place], [address] STOOL Observed: 10/09/2018 Status: F Source: MARK LACTOFERRIN/WBC 3:25 AM [facility] REPOSITORY Stool Lacto/WBC Normal Reference Range = Negative Fecal WBC Lactoferrin Positive: Fecal WBC Lactoferrin present Performed By: #### M100.0605 #### [facility] [address] [place], [address] Observed: 10/09/2018 Status: C Source: MARK CDIFF (MOLECULAR) 3:25 AM [facility] REPOSITORY Is the patient receiving laxatives? N New/unexplained onset of 3 or more stools in past 24 hrs? Y Cdiff-Molecular RESULTS CALLED TO Sheryl SAVAGE 10/09/18 Sergei [place]. REPORT READ BACK BY SOPHIA. Copy of report sent to Infection Control Printer MS#[id number] 10/09/18 2942 MARIBEL. Normal Reference Range = Negative C. Diff DNA Positive-Toxigenic C. Difficile DNA Detected NAAT METHOD Testing was performed using nucleic acid amplification ORGANISM 1: Toxigenic C. difficile DNA Performed By: #### M100.6796 #### [facility] [address] [place], [address] Observed: 10/09/2018 Status: F Source: [place] ENTERIC PATHOGEN 3:25 AM [facility] PANEL STOOL REPOSITORY EP PANEL STOOL Not [...] Not Detected Performed By: #### M100.637 #### [facility] [address] [place], [address] EMERGENCY DEPARTMENT Observed: 10/09/2018 Status: F Source: [place] SUMMARY 12:35 AM [facility] HOSPITAL REPOSITORY [facility] Medical Records Department [address] [place] [address] Emergency Department Summary 10/08/18 1857 MR#: [id number] Acct: [id number] Name: DOUG CAST Rep #: [id number] : 1935 83 From: Doug Currie MD [...] discharged home, and then bounced to a residential facility secondary to functional decline. Patient apparently [...] prior radiograph This note was generated with [employer] dictation software. It may contain incorrect words, [...] problems, contact your Primary Care Provider. Call [facility] ([phone]) or report to the closest Emergency Room. Call 911 if necessary. 10/09/18 0035 <Electronically signed by Doug Currie MD> Date Doug Currie MD Cosigner Signature (If Indicated): Date CC: Vijay Mason MD HISTORY AND PHYSICAL Observed: 10/08/2018 Status: F Source: [place] EXAM 9:15 PM [facility] REPOSITORY [facility] Medical Records Department [address] [place] [address] History and Physical 10/08/182046 MR#: [id number] Acct: [id number] Name: SEGUNDOUG Brittani Rep #: [id number] : 1935 83 From: Chuy Abrams DO PCP: Vijay Mason MD Status: ADM IN Location: [place] [address] Problem List (1) Diarrhea Status: Acute (2) [...] who presented to the emergency department at [facility] on 10/08/2018 from the residential with complaints of diarrhea, increased weakness, elevated [...] cannula. White blood cell count at the residential was 17.5 with 91% neutrophils. Hemoglobin was [...] Family, - - [place] living [place] the [place] Smoking Status: Never smoker Tobacco Use: Non-smoker [...] Sl. 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 Anusol HC suppositories twice daily Fecal leukocytes Enteric pathogen panel Enteric contact isolation Supplement potassium PT and OT Likely needs to go back to the residential Code Visit Inpatient E AND M: 06066 Init Hosp L2 10/08/182114 <Electronically signed by Chuy Abrams DO> Date Chuy Abrams DO Cosigner Signature: Date (if applicable) CC: Gail Abrams; Vijay Mason MD Signed URINALYSIS, COMPLETE Collected: 10/08/2018 Status: F Source: MARK 6:45 PM [facility] REPOSITORY Order Comment: Order Date: 10/08/18 How [...] 0-5 SEEN Performed By: #### L400.0001 #### [facility] [address] [place], [place], [address] Observed: 10/08/2018 Status: F Source: MARK STOOL OCCULT BLOOD 5:40 PM [facility] IFOB REPOSITORY Order Date: 10/08/18 STOB iFOB Occult Blood Positive ORGANISM 1: OCCULT BLOOD POSITIVE Performed By: #### M100.7900 #### [facility] [address] [place], [address] CHEST 1 VIEW Observed: 10/08/2018 Status: F Source: MARK (PORTABLE) 5:34 PM [facility] HOSPITAL REPOSITORY [facility] Imaging Services [address] [place] [address] Chest 1 View (Portable) MR#: [id number] Acct: [id number] Name: DOUG CAST Rep #: [id number] : 1935 M 83 From: Baltazar Moctezuma MD PCP: Vijay Msaon MD Status: PRE ER Study: Chest 1 View (Portable) Date of Exam: 10/08/18 Exam# [id number] Ordering Dr: Doug Currie MD STUDY: X-RAY [...] , CC: Doug Currie; Vijay Mason MD Registered Dental Assistant Rda: Signed CBC-COMPLETE BLOOD CNT Collected: 10/08/2018 Status: F Source: MARK NO DIFF 6:40 AM [facility] REPOSITORY Order Comment: 119 TYPE CODE TESTS [...] MPV 11.8 Performed By: #### L100.0500 #### [facility] [address] [place], [address] BASIC METABOLIC Collected: 10/08/2018 Status: F Source: [place] PROFILE (BMP) 6:40 AM [facility] REPOSITORY Order Comment: 119 TYPE CODE TESTS [...] GAP 10 Performed By: #### L500.2500 #### [facility] [address] [place], [place], [address] CBC-COMPLETE BLOOD CNT Collected: 10/07/2018 Status: F Source: MARK NO DIFF 7:00 AM [facility] REPOSITORY Order Comment: 119 TYPE CODE TESTS [...] MPV 11.9 Performed By: #### L100.0500 #### [facility] [address] [facility] [address] [place], [place], [address] BASIC METABOLIC Collected: 10/07/2018 Status: F Source: MARK PROFILE (BMP) 7:00 AM [facility] REPOSITORY Order Comment: 119 TYPE CODE TESTS [...] GAP 10 Performed By: #### L500.2500 #### [facility] [address] [place], [place], [address] CBC-COMPLETE BLOOD CNT Collected: 10/05/2018 Status: F Source: [place] NO DIFF 7:25 AM [facility] REPOSITORY TYPE CODE TESTS RESULT OUT OF [...] MPV 12.4 Performed By: #### L100.0500 #### [facility] [address] [place], [address] BASIC METABOLIC Collected: 10/05/2018 Status: F Source: MARK PROFILE (BMP) 7:25 AM [facility] REPOSITORY TYPE CODE TESTS RESULT OUT OF [...] GAP 9 Performed By: #### L500.2500 #### [facility] [address] [place], [address] 12 LEAD ELECTROCARDIOGRAM Observed: 10/03/2018 Status: F Source: MARK 2:16 PM [facility] REPOSITORY [facility] Cardiovascular Services [address] [place] [address] 12 Lead EKG 09/29/18 0239 MR#: [id number] Acct: [id number] Name: DOUG CAST Rep #: [id number] : 1935 83 From: Rah Barba MD Attending Dr: Maureen Siddiqui Status: DIS IN Ordering Dr: Chase Zavala MD Date: 09/29/18 Location: [facility] Sex: M C Admitted: 09/29/18 Test Reason [...] ECG Confirmed by BRET MACK, RAH ([id number]), desk editor SARY MA ([id number]) on 10/03/2018 2:16:33 PM Referred By: DR NINA Confirmed By:RAH BARBA MD 10/03/18 1416 Date Rah Barba MD CC: Maureen Siddiqui; Chase Zavala MD; Vijay Mason MD Signed 12 LEAD ELECTROCARDIOGRAM Observed: 10/03/2018 Status: F Source: [place] 2:15 PM [facility] REPOSITORY [facility] Cardiovascular Services [address] [place] [address] 12 Lead EKG 09/30/18 0451 MR#: [id number] Acct: [id number] Name: DOUG CAST Rep #: [id number] : 1935 83 From: Rah Barba MD Attending Dr: Maureen Siddiqui Status: DIS IN Ordering Dr: Rah Barba MD Date: 09/30/18 Location: [facility] Sex: M C Admitted: 09/29/18 Test Reason [...] Abnormal ECG Confirmed by BRET MACK, RAH ([id number]), desk editor SARY MA ([id number]) on 10/03/2018 2:14:38 PM Referred By: SALLY Confirmed By:RAH BARBA MD 10/03/18 1414 Date Rah Barba MD CC: Maureen Siddiqui; Rah Barba MD; Vijay Mason MD Signed DISCHARGE SUMMARY Observed: 10/02/2018 Status: F Source: [place] 3:00 PM [facility] REPOSITORY [facility] Medical Records Department [address] [place] [address] Discharge Summary 10/02/18 1423 MR#: [id number] Acct: [id number] Name: DOUG CAST Brittani Rep #: [id number] : 1935 83 From: Lion BARONE PCP: Vijay Mason MD Status: DIS IN Y Location: [place] [address]-1 ADDENDUM by Maureen Siddiqui on 10/02/18 at [...] AOCD/Fe deficiency anemia who presented to the [facility] ED on 09/29/18 w/ history of shortness [...] hospital summary above. Inpatient E AND M: 50671 Disch Hosp 10/02/18 1500 <Electronically signed by [...] right pulmonary infiltration. 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/maths tutor Routine Comment: Reason for Consult:: Lymphedema of [...] DISCHARGE INSTRUCTION Observed: 10/02/2018 Status: C Source: [place] 2:55 PM [facility] REPOSITORY [facility] Medical Records Department [address] [place] [address] Instructions for Home/Discharge Instructions 10/02/18 1000 MR#: [id number] Acct: [id number] Name: DOUG CAST Rep #: [id number] : 1935 83 From: Lion BARONE PCP: Vijay Mason MD Status: DIS IN ADDENDUM by Maureen Siddiqui on 10/02/18 at 1455 Additional Follow-up recommendation: Please follow-up with your claims assistant or consider Dr. Sandrine Ramirez within 1-2 [...] Mason MD Observed: 10/02/2018 Status: F Source: [place] CULTURE, BLOOD (WB) 8:40 AM [facility] REPOSITORY Has pt arrived? Y BC No growth in 5 days. Performed By: #### M200.1000 #### [facility] Laboratory [address] [place], [place], [address] Observed: 10/02/2018 Status: F Source: MARK CULTURE, BLOOD (WB) 8:30 AM [facility] REPOSITORY Has pt arrived? Y BC No growth in 5 days. Performed By: #### M200.1000 #### [facility] [address] [place], [address] BASIC METABOLIC Collected: 10/02/2018 Status: F Source: MARK PROFILE (BMP) 6:20 AM [facility] REPOSITORY TYPE CODE TESTS RESULT OUT OF [...] GAP 9 Performed By: #### L500.2500 #### [facility] Laboratory [facility] [address] [place], [place], [address] CBC W/DIFF, AUTOMATED Collected: 10/02/2018 Status: F Source: [place] 6:20 AM [facility] REPOSITORY Order Comment: Comments: due to heparin [...] Lymph 0.26 Performed By: #### L100.0100 #### [facility] [address] [place], [address] PARTIAL THROMBOPLAST Collected: 10/02/2018 Status: F Source: [place] TIME 6:20 AM [facility] REPOSITORY Order Comment: Comments: on heparin drip TYPE CODE TESTS RESULT OUT OF REFERENCE UNITS RANGE LAB L300.4310 24.1-36.2 Seconds High PTT 72.4 Performed By: #### L300.4310 #### [facility] [address] [place], [address] CHEST PA AND LATERAL Observed: 10/02/2018 Status: F Source: [place] 12:00 AM [facility] REPOSITORY [facility] Imaging Services [address] [place] [address] Chest PA and Lateral MR#: [id number] Acct: [id number] Name: DOUG CAST Rep #: [id number] : 1935 M 83 From: Stiven Ball MD PCP: Vijay Mason MD Status: ADM IN Study: Chest PA and Lateral Date of Exam: 10/02/18 Exam# [id number] Ordering Dr: Lion Green STUDY: X-RAY CHEST [...] Stiven Ball MD at 13:51 EST Tel [phone], Service support , CC: ABISAI Green; Vijay Mason MD Registered Dental Assistant Rda: Signed PARTIAL THROMBOPLAST Collected: 10/01/2018 Status: F Source: [place] TIME 8:22 PM [facility] REPOSITORY TYPE CODE TESTS RESULT OUT OF REFERENCE UNITS RANGE LAB L300.4310 24.1-36.2 Seconds High PTT 72.6 Performed By: #### L300.4310 #### [facility] Laboratory [address] [place] [address]. [place], [address] 12 LEAD ELECTROCARDIOGRAM Observed: 10/01/2018 Status: F Source: MARK 2:55 PM [facility] HOSPITAL REPOSITORY [facility] Cardiovascular Services [address] [place] [address] 12 Lead EKG 09/28/182 MR#: [id number] Acct: [id number] Name: DOUG CAST Brittani Rep #: [id number] : 1935 83 From: Rah Barba MD Attending Dr: Maureen Siddiqui Status: ADM IN Ordering Dr: Baltazar Sultana MD Date: 09/28/18 Location: [facility] Sex: M C Admitted: 09/29/18 Test Reason [...] Abnormal ECG Confirmed by BRET MACK, RAH ([id number]), desk editor SARY MA ([id number]) on 10/01/2018 2:55:25 PM Referred By: JW Confirmed By:RAH BARBA MD 10/01/18 1455 Date Rah Barba MD CC: Maureen Siddiqui; BALTAZAR SULTANA MD; Vijay Mason MD Signed PARTIAL THROMBOPLAST Collected: 10/01/2018 Status: F Source: [place] TIME 2:00 PM [facility] REPOSITORY TYPE CODE TESTS RESULT OUT OF REFERENCE UNITS RANGE LAB L300.4310 24.1-36.2 Seconds High PTT 76.0 Performed By: #### L300.4310 #### [facility] Laboratory [address] [place], [address] MODIFIED BARIUM Observed: 10/01/2018 Status: F Source: [place] SWALLOW STUDY 1:41 PM [facility] REPOSITORY [facility] Speech Pathology [address] [place] [address] Modified Barium Swallow Study MR#: [id number] Acct: [id number] Name: CASEYDOUG HUDSON Rep #: [id number] : 1935 83 From: Nohemy Booth M.A. [facility]-GENERAL LOT ATTENDANT PRIMARY / SECONDARY DIAGNOSIS: HCAP/dysphagia REFERRING PHYSICIAN: [...] Pt is an 83 YOM admitted to [facility] on 09/29/2018 d/t shortness of breath, workup revealed sepsis with bacteremia secondary to gram positive pneumonia, atrial fibrillation w/ RVR, metabolic encephalopathy. Pt. known to [facility] GENERAL LOT ATTENDANT department from admission earlier this year (Jul), [...] 1341 <Electronically signed by Nohemy Booth M.A., [facility]-GENERAL LOT ATTENDANT> Date Nohemy Booth M.A., [facility]-GENERAL LOT ATTENDANT Co-Signature Required for all Medicare patients Date/Time Co-Signature CC: BASIC METABOLIC Collected: 10/01/2018 Status: F Source: [place] PROFILE (BMP) 6:20 AM [facility] REPOSITORY TYPE CODE TESTS RESULT OUT OF [...] GAP 11 Performed By: #### L500.2500 #### [facility] Laboratory [facility] [address] [place], [place], [address] CBC W/DIFF, AUTOMATED Collected: 10/01/2018 Status: F Source: [place] 6:20 AM [facility] REPOSITORY TYPE CODE TESTS RESULT OUT OF [...] Lymph 0.24 Performed By: #### L100.0100 #### [facility] Laboratory [address] [facility] [address] PARTIAL THROMBOPLAST Collected: 10/01/2018 Status: F Source: [place] TIME 6:20 AM [facility] REPOSITORY TYPE CODE TESTS RESULT OUT OF REFERENCE UNITS RANGE LAB L300.4310 24.1-36.2 Seconds High PTT 84.3 Performed By: #### L300.4310 #### [facility] Laboratory [address] [facility] [address] MAGNESIUM Collected: 10/01/2018 Status: F Source: MARK 6:20 AM [facility] REPOSITORY Order Comment: Comments: ok to add on TYPE CODE TESTS RESULT OUT OF RANGE REFERENCE UNITS LAB L501.5200 1.6-2.6 mg/dL Normal MG 1.8 Performed By: #### L501.5200 #### [facility] Laboratory [address] [place], [address] PHOSPHORUS Collected: 10/01/2018 Status: F Source: MARK 6:20 AM [facility] REPOSITORY Order Comment: Comments: ok to add on TYPE CODE TESTS RESULT OUT OF RANGE REFERENCE UNITS LAB L501.2300 2.5-4.9 mg/dL Normal PHOS 3.8 Performed By: #### L501.2300 #### [facility] [address] [place], [address] SWALLOWING FUNCTION Observed: 10/01/2018 Status: F Source: [place] W/VIDEO 12:00 AM [facility] REPOSITORY [facility] Imaging Services [address] [place] [address] Swallowing Function w/Video MR#: [id number] Acct: [id number] Name: DOUG CAST Rep #: [id number] : 1935 M 83 From: Stiven Ball MD PCP: Vijay Mason MD Status: ADM IN Study: Swallowing Function w/Video Date of Exam: 10/01/18 Exam# [id number] Ordering Dr: Maureen Siddiqui STUDY: SWALLOWING STUDY [...] Stiven Ball MD at 11:40 EST Tel [phone], Service support , CC: Maureen Siddiqui; Vijay Mason MD Registered Dental Assistant Rda: Signed Observed: 09/30/2018 Status: F Source: [place] CULTURE, BLOOD (WB) 4:50 PM [facility] REPOSITORY Has pt arrived? Y BC No growth in 5 days. Performed By: #### M200.1000 #### [facility] [address] [facility] [place], [place], [address] Observed: 09/30/2018 Status: F Source: [place] CULTURE, BLOOD (WB) 4:38 PM [facility] REPOSITORY Has pt arrived? Y BC No growth in 5 days. Performed By: #### M200.1000 #### [facility] [address] [place], [place], [address] ECHOCARDIOGRAM COMPLETE Observed: 09/30/2018 Status: F Source: MARK 4:23 PM [facility] REPOSITORY [facility] Cardiovascular Services [address] [place] [address] Echo Complete 09/30/18 1457 MR#: [id number] Acct: [id number] Name: DOUG CAST Rep #: [id number] : 1935 83 From: Rah Barba MD Attending Dr: Maureen Siddiqui Status: ADM IN Ordering Dr: Chase Zavala MD Date: 09/29/18 Location: U Sex: M C Admitted: 09/29/18 Reason For [...] MD Date Dictated: 09/30/18 1457 Date Transcribed: 09/30/18 1623 Registered Dental Assistant Rda: Signed CONSULTATION Observed: 09/30/2018 Status: F Source: [place] 11:49 AM [facility] REPOSITORY [facility] Medical Records Department [address] [place] [address] Consultation 09/30/18 1146 MR#: [id number] Acct: [id number] Name: DOUG CAST Rep #: [id number] : 1935 83 From: Oscar Wilson MD PCP: Vijay Mason MD Status: ADM IN Location: [place] [address] Reason for Consult: Pneumococcal pneumonia with bacteremia [...] 09/30/2018 Status: F Source: [place] 5:14 AM [facility] REPOSITORY TYPE CODE TESTS RESULT OUT OF [...] LYMPHOPENIA NOTED Performed By: #### L100.0100 #### [facility] [address] [facility] [place], [place], [address] PARTIAL THROMBOPLAST Collected: 09/30/2018 Status: F Source: [place] TIME 5:14 AM [facility] REPOSITORY Order Comment: Comments: Heparin gtt TYPE CODE TESTS RESULT OUT OF REFERENCE UNITS RANGE LAB L300.4310 24.1-36.2 Seconds High PTT 70.6 Performed By: #### L300.4310 #### [facility] [address] [place], [place], [address] BASIC METABOLIC Collected: 09/30/2018 Status: F Source: [place] PROFILE (BMP) 5:14 AM [facility] REPOSITORY TYPE CODE TESTS RESULT OUT OF [...] GAP 10 Performed By: #### L500.2500 #### [facility] [address] [place], [place], [address] PARTIAL THROMBOPLAST Collected: 09/29/2018 Status: F Source: [place] TIME 9:15 PM [facility] REPOSITORY Order Comment: Comments: HEPARIN DRIP VRI TYPE CODE TESTS RESULT OUT OF REFERENCE UNITS RANGE LAB L300.4310 24.1-36.2 Seconds High PTT 62.6 Performed By: #### L300.4310 #### [facility] [address] [place], [address] PARTIAL THROMBOPLAST Collected: 09/29/2018 Status: F Source: [place] TIME 3:18 PM [facility] REPOSITORY Order Comment: REDRAW. PREVIOUS SPECIMEN WAS REJECTED FOR TESTING DUE TO HEMOLYSIS. SPECIMEN WAS DISCARDED. 09/29/18 1549 Sarwat Galdamez. TYPE CODE TESTS RESULT OUT OF REFERENCE UNITS RANGE LAB L300.4310 24.1-36.2 Seconds High PTT 69.4 Performed By: #### L300.4310 #### [facility] [address] [facility] [place], [address] CONSULTATION Observed: 09/29/2018 Status: F Source: [place] 1:46 PM [facility] REPOSITORY [facility] Medical Records Department [address] [place] [address] Consultation 09/29/18 1335 MR#: [id number] Acct: [id number] Name: DOUG CAST Rep #: [id number] : 1935 83 From: Rah Barba MD PCP: Vijay Mason MD Status: ADM IN Location: [place] [address] Problem List (1) Atrial fibrillation with RVR [...] has been in and out of the [facility] and its associated transitional care unit recently [...] 93.1 H, Lymph % (Auto) 2.2 L, Newton % (Auto) 4.2, Eos % (Auto) 0.1, [...] Clarity Cloudy, Urine pH 5.0, Ur Specific [place] 1.020, Urine Protein 500 H, Urine Glucose [...] was discussed with the patient and his [id number] who was present at this time. This note was generated using a voice recognition system and there may be incorrect words, spelling or punctuation that were not noted when reviewing the office note prior to saving. 09/29/18 4366 <Electronically signed by Rah Barba MD> Date Rah Barba MD Cosigner Signature (if applicable): Date CC: Rah Barba MD; Vijay Mason MD Signed STREP Observed: 09/29/2018 Status: F Source: [place] PNEUMONIAE ANTIG(UR,CSF) 10:30 AM [facility]OSPITAL REPOSITORY Order Date: 09/29/18 Has pt arrived? Y S pneumo Ag URINE INTERPRETATION Positive Urine Positive for pneumococcal pneumonia. RESULTS CALLED TO Megan MOURA 09/29/18 1127 Alessandra Cleveland. REPORT READ BACK BY JORDAN. Copy of report sent to Infection Control Printer [id number] 09/29/18 1127 MARIBEL. Strep pneumo Test Urine POSITIVE for pneumococcal pneumonia. ORGANISM 1: Streptococcus pneumonia Ag Performed By: #### M300.4600 #### [facility] [address] [facility] [place], [address] Observed: 09/29/2018 Status: F Source: [place] LEGIONELLA ANTIGEN 10:30 AM [facility] URINE REPOSITORY Order Date: 09/29/18 Has pt arrived? Y Specimen Source: URINE, CATHETER Legionella, UR Legionella Antigen result interpretation: Negative Presumptive negative for Legionella pneumophila serogroup 1 antigen in urine, suggesting no recent or current infection. Legionella Ag, Urine Negative (See interpretation below) Performed By: #### M300.4500 #### [facility] [address] [place], [address] PARTIAL THROMBOPLAST Collected: 09/29/2018 Status: F Source: [place] TIME 8:46 AM [facility] REPOSITORY TYPE CODE TESTS RESULT OUT OF REFERENCE UNITS RANGE LAB L300.4310 24.1-36.2 Seconds High PTT 69.4 Performed By: #### L300.4310 #### [facility] [address] [place], [address] CBC-COMPLETE BLOOD CNT Collected: 09/29/2018 Status: F Source: [place] NO DIFF 3:14 AM [facility] REPOSITORY TYPE CODE TESTS RESULT OUT OF [...] MPV 11.1 Performed By: #### L100.0500 #### [facility] [address] [place], [address] BASIC METABOLIC Collected: 09/29/2018 Status: F Source: [place] PROFILE (BMP) 3:14 AM [facility] REPOSITORY TYPE CODE TESTS RESULT OUT OF [...] GAP 10 Performed By: #### L500.2500 #### [facility] [address], [address] LACTIC ACID Collected: 09/29/2018 Status: F Source: [place] 3:14 AM [facility] REPOSITORY TYPE CODE TESTS RESULT OUT OF RANGE REFERENCE UNITS LAB L503.6005 0.4-2.0 mmol/L Normal LACTIC ACID 1.1 Performed By: #### L503.6005 #### [facility] [address] [place], [place], [address] BNP,B-TYPE NATRIURETIC Collected: 09/29/2018 Status: F Source: [place] PEPTIDE 3:14 AM [facility] REPOSITORY Order Comment: Comments: from blood in lab. TYPE CODE TESTS RESULT OUT OF RANGE REFERENCE UNITS LAB L503.6620 0-100 pg/mL High B-TYPE 236.5 ARNOLD PEP Performed By: #### L503.6620 #### [facility] [address] [place], [address] PROTHROMBIN TIME W/INR Collected: 09/29/2018 Status: F Source: [place] 2:20 AM [facility] REPOSITORY TYPE CODE TESTS RESULT OUT OF RANGE REFERENCE UNITS LAB L300.4150 11.7-14.9 SECONDS High PROTIME 19.2 LAB L300.4200 Normal INR 1.6 Performed By: #### L300.3900, L300.4310 #### [facility] [address] [facility] [place] [place], [address] PARTIAL THROMBOPLAST Collected: 09/29/2018 Status: F Source: [place] TIME 2:20 AM [facility] REPOSITORY TYPE CODE TESTS RESULT OUT OF REFERENCE UNITS RANGE LAB L300.4310 24.1-36.2 Seconds High PTT 58.1 Performed By: #### L300.3900, L300.4310 #### [facility] [address] [place], [address] HISTORY AND PHYSICAL Observed: 09/29/2018 Status: F Source: [place] EXAM 1:57 AM [facility] REPOSITORY [facility] Medical Records Department [address] [place] [address] History and Physical 09/29/18 0005 MR#: [id number] Acct: [id number] Name: DOUG CAST Rep #: [id number] : 1935 83 From: Chase Zavala MD PCP: Vijay Mason MD Status: ADM IN Y Location: [place] [address] Problem List (1) Acute kidney injury superimposed [...] the name of the president of the [facility]. Psych/Mental Status: Normal Affect, Appropriate Vital Signs [...] (Auto) Neut % (Auto) Lymph % (Auto) Newton % (Auto) POC Glucose POC Glucose 122 [...] failure. Trend CBC and BMP. Atrial fibrillation [id number] Score: Age >=75 (2 points) ; HTN [...] fib. Code Visit Inpatient E AND M: 50657 Init Hosp L3 09/29/18 0157 <Electronically signed by Chase Zavala MD> Date Chase Zavala MD Cosigner Signature: Date (if applicable) CC: Chase Zavala MD; Vijay Mason MD Signed EMERGENCY DEPARTMENT Observed: 09/29/2018 Status: F Source: [place] SUMMARY 12:37 AM [facility] REPOSITORY [facility] Medical Records Department [address] [place] [address] Emergency Department Summary 09/28/18 2254 MR#: [id number] Acct: [id number] Name: DOUG CAST Rep #: [id number] : 1935 83 From: Baltazar Sultana MD [...] (Auto) Neut % (Auto) Lymph % (Auto) Newton % (Auto) - Rhythm Strip Rhythm Strip: [...] Disposition - Plan for ED Patient: Disposition: [facility] Chief Complaint: Alt LOC Diagnosis: HCAP (healthcare-associated [...] your Primary Care Provider. Call [facility] ([phone]) or report to the closest Emergency Room. Call 911 if necessary. 09/29/18 0037 <Electronically signed by Baltazar Sultana MD> Date Baltazar Sultana MD Cosigner Signature (If Indicated): Date CC: Vijay Mason MD URINALYSIS, COMPLETE Collected: 09/28/2018 Status: F Source: [place] 11:55 PM [facility] REPOSITORY Order Comment: Order Date: 09/28/18 How was Urine Obtained? [employer] CONSULTANT TO SPECIFY TYPE CODE TESTS RESULT OUT [...] AMORPHOUS 3+ Performed By: #### L400.0001 #### [facility] [address] [facility] [place], [address] CHEST 1 VIEW Observed: 09/28/2018 Status: F Source: [place] (PORTABLE) 10:53 PM [facility] REPOSITORY [facility] Imaging Services [address] [place] [address] Chest 1 View (Portable) MR#: [id number] Acct: [id number] Name: DOUG CAST Rep #: [id number] : 1935 M 83 From: Johnathan Wakefield MD PCP: Vijay Mason MD Status: REG ER Study: Chest 1 View (Portable) Date of Exam: 09/28/18 Exam# [id number] Ordering Dr: Baltazar Sultana MD STUDY: X-RAY [...] CC: BALTAZAR SULTANA MD; Vijay Mason MD Registered Dental Assistant Rda: Signed BRAIN/HEAD WITHOUT Observed: 09/28/2018 Status: F Source: [place] CONTRAST 10:53 PM [facility] REPOSITORY [facility] Imaging Services [address] [place] [address] Brain/Head without Contrast MR#: [id number] Acct: [id number] Name: DOUG CAST Rep #: [id number] : 1935 M 83 From: Johnathan Wakefield MD PCP: Vijay Mason MD Status: REG ER Study: Brain/Head without Contrast Date of Exam: 09/28/18 Exam# [id number] Ordering Dr: Baltazar Sultana MD STUDY: CT [...] CC: BALTAZAR SULTANA MD; Vijay Mason MD Registered Dental Assistant Rda: Signed Observed: 09/28/2018 Status: F Source: [place] CULTURE, BLOOD (WB) 10:38 PM [facility] REPOSITORY GRAM STAIN = GRAM POSITIVE COCCI CHAINS RESULTS CALLED TO Megan MOURA 09/29/18 Isaak Cleveland. REPORT READ BACK BY JORDAN. ANAEROBIC [...] 0.5 S (NF) indicates non-formulary drug at [facility]. Approval by Infectious Disease Specialist required before non-formulary drugs may be ordered and/or dispensed. * CLSI guidelines does not recommend testing of cephalosporins. This interpretation is deduced from Beta-lactam/penicillin results. Performed By: #### M200.1000, M100.636 #### [facility] [address] [facility] [place], [address] Observed: 09/28/2018 Status: C Source: [facility] GPC ID 10:38 PM [facility] REPOSITORY BC GPC ID Copy of report sent to Infection Control Printer [id number] 09/29/18 1427 NSTANSLOS. Staphylococcus sp. Not Detected Enterococcus sp. Not Detected Streptococcus spp. Streptococcus pneumoniae Listeria spp Not Detected Mylene/vanB Not Detected mecA Not Detected NAAT METHOD Testing was performed using nucleic acid amplification ORGANISM 1: Streptococcus pneumoniae Performed By: #### M200.1000, M100.636 #### [facility] [address] [place], [address] CBC W/DIFF, AUTOMATED Collected: 09/28/2018 Status: F Source: [place] 10:33 PM [facility] REPOSITORY TYPE CODE TESTS RESULT OUT OF [...] LYMPHOPENIA NOTED Performed By: #### L100.0100 #### [facility] [address] [place], [place] [address] [place], [place], [address] BEDSIDE GLUCOSE Collected: 09/28/2018 Status: F Source: [place] 10:33 PM [facility] REPOSITORY TYPE CODE TESTS RESULT OUT OF REFERENCE UNITS RANGE LAB L501.080 70-110 mg/dL High BEDSIDE GLU 122 Result Comment: MANAGEMENT OF PATIENT CARE PER NURSING PROTOCOL Performed By: #### L501.080 #### [facility] Point of Care [address] [place], [place] [address] BASIC METABOLIC Collected: 09/28/2018 Status: F Source: [place] PROFILE (BMP) 10:33 PM [facility] REPOSITORY TYPE CODE TESTS RESULT OUT OF [...] 9 Performed By: #### L500.2500, L501.4010 #### [facility] [facility], [address] TROPONIN-I Collected: 09/28/2018 Status: F Source: [place] 10:33 PM [facility] REPOSITORY TYPE CODE TESTS RESULT OUT OF RANGE REFERENCE UNITS LAB L501.4010 <0.045 ng/mL Normal < 0.015 TROPONIN-I Result Comment: TROPONIN-I EXPECTED VALUES <0.045 Negative 0.045 - 0.590 Consistent with Cardiac Damage > OR = 0.600 Critical Value Not every elevated troponin is indicative of [place]. These values should be used with clinical judgement in examining the patient's clinical picture for diagnosis. To establish a diagnosis of [place] versus myocardial injury, there must be a demonstrated rise and/or fall in the troponin values, in addition to ischemic symptoms, EKG changes, new regional wall motion abnormality, and/or angiographical evidence. PLEASE NOTE: REFERENCE RANGES EDITED 18 Performed By: #### L500.2500, L501.4010 #### [facility] [address] [place], [address] LACTIC ACID Collected: 09/28/2018 Status: F Source: [place] 10:33 PM [facility] REPOSITORY Order Comment: Yes/No query for Sepsis Lactate Rule Y TYPE CODE TESTS RESULT OUT OF REFERENCE UNITS RANGE LAB L503.6005 0.4-2.0 mmol/L High LACTIC ACID 2.1 Result Comment: Critical Result(s) Called at: 23:16:10 09/28/2018 by: Cecilia Chew Performed By: #### L503.6005 #### [facility] [address] [facility] [place] [place], [address] MAGNESIUM Collected: 09/28/2018 Status: F Source: [place] 10:33 PM [facility] REPOSITORY TYPE CODE TESTS RESULT OUT OF RANGE REFERENCE UNITS LAB L501.5200 1.6-2.6 mg/dL Normal MG 1.7 Performed By: #### L501.5200, L501.9520 #### [facility] [address] [place], [address] THYROID STIM HORMONE Collected: 09/28/2018 Status: F Source: [place] (TSH) 10:33 PM [facility] REPOSITORY TYPE CODE TESTS RESULT OUT OF RANGE REFERENCE UNITS LAB L501.9520 0.358-3.74 uIU/mL Normal TSH 1.47 Performed By: #### L501.5200, L501.9520 #### [facility] [address] [place], [address] Observed: 09/28/2018 Status: F Source: [place] CULTURE, BLOOD (WB) 10:33 PM [facility] REPOSITORY BC GRAM STAIN = GRAM POSITIVE COCCI CHAINS RESULTS CALLED TO Chuy HERNANDEZ 09/29/18 Erendira Cleveland. REPORT READ BACK BY LUIS FELIPE. PLEASE REFER TO [id number] FOR SENSITIVITY RESULTS Copy of report sent to Infection Control Printer [id number] 09/30/18 0939 BLUCAS. AEROBIC BOTTLE NO GROWTH 5 DAYS. ORGANISM 1: Streptococcus pneumoniae Amount Growth Growth Performed By: #### M200.1000 #### [facility] [address] [place], [address] CBC W/DIFF, AUTOMATED Collected: 09/23/2018 Status: F Source: [place] 3:25 PM [facility] REPOSITORY TYPE CODE TESTS RESULT OUT OF [...] Lymph 0.67 Performed By: #### L100.0100 #### [facility] [address] [place], [address] COMPREHENSIVE METABOLIC Collected: 09/23/2018 Status: F Source: [place] LAST 3:25 PM [facility] REPOSITORY TYPE CODE TESTS RESULT OUT OF [...] GAP 12 Performed By: #### L500.4050 #### [facility] [address] [place], [address] [place] ABS GR + CBC Collected: 09/18/2018 Status: F Source: [place] 11:14 AM [facility] REPOSITORY TYPE CODE TESTS RESULT OUT OF REFERENCE UNITS RANGE LAB WWBC 3.70-11.00 k/uL [place] WBC 6.75 LAB WRBC 4.20-6.00 m/uL Low [place] RBC 3.64 LAB WHGB 13.0-17.0 g/dL Low [place] Hemoglobin 10.6 LAB WHCT 39.0-51.0 % Low [place] Hematocrit 35.2 LAB WMCV 80.0-100.0 fL [place] MCV 96.7 LAB WMCH 26.0-34.0 pg [place] MCH 29.1 LAB WMCHC 30.5-36.0 g/dL Low [place] MCHC 30.1 LAB WRDW 11.5-15.0 % [place] RDW 14.9 LAB WPLT 150-400 k/uL [place] Platelet Cnt 152 LAB WMPV 9.0-12.7 fL [place] MPV 10.7 Result Comment: Test performed at: [facility], [address] [place] [address]. LAB ABGRAN 1.45-7.50 k/uL Absol Gran 5.18 Count HOME HEALTH PROGRESS Observed: 09/11/2018 Status: F Source: [place] NOTE 9:15 PM [facility] REPOSITORY [facility] Medical Records Department [address] [place] [address] Home Health Progress Note Psye-iw-Xzeu Encounter Encounter Date: 09/11/182113 MR#: [id number] Acct: [id number] Name: DOUG CAST Brittani Rep #: [id number] : 1935 83 From: Christiano Boss MD PCP: Vijay Mason MD Status: ADM IN Location: [place] [address] Home Health Note - Plan Overview of [...] (Chronic) - Requirements and Reasons Disciplines Needed/Ordered: Correction, Physical Therapy Reason for Disciplines: Disease Specific [...] 09/11/2018 Status: F Source: [place] 9:14 PM [facility] REPOSITORY [facility] Medical Records Department [address] [place] [address] Discharge Summary 09/11/182111 MR#: [id number] Acct: [id number] Name: DOUG CAST Rep #: [id number] : 1935 83 From: Christiano Boss MD PCP: Vijay Mason MD Status: ADM IN Y Location: [place] [address] Discharge Date and Diagnosis - Problem List [...] RDW 16.5 H Consultations 08/19/18 15:03 Consult: Onc/Wound/maths tutor Routine Comment: Reason for Consult:: CELLULITES BLE'S [...] Ointment] 1 applic TOPICAL 06,22 tube 09/11/18 Nutritional Supplement [Morales - ORANGE [...] (if applicable): Date CC: Vijay Mason MD; Crhistiano Boss MD Signed DISCHARGE INSTRUCTION Observed: 09/11/2018 Status: F Source: [place] 9:12 PM [facility] REPOSITORY [facility] Medical Records Department [address] [place] [address] Instructions for Home/Discharge Instructions 09/11/182110 MR#: [id number] Acct: [id number] Name: DOUG CAST Rep #: [id number] : 1935 83 From: Christiano Boss MD [...] 09/11/2018 Status: F Source: [place] 5:10 AM [facility] REPOSITORY TYPE CODE TESTS RESULT OUT OF [...] Lymph 0.69 Performed By: #### L100.0100 #### [facility] [address] [facility] [facility] [place], [place], [address] BASIC METABOLIC Collected: 09/11/2018 Status: F Source: [place] PROFILE (BMP) 5:10 AM [facility] REPOSITORY TYPE CODE TESTS RESULT OUT OF [...] GAP 7 Performed By: #### L500.2500 #### [facility] [address] [facility] [place], [place], [address] BASIC METABOLIC Collected: 09/03/2018 Status: F Source: [place] PROFILE (BMP) 5:45 AM [facility] REPOSITORY TYPE CODE TESTS RESULT OUT OF [...] GAP 5 Performed By: #### L500.2500 #### [facility] [address] [place], [address] CBC W/DIFF, AUTOMATED Collected: 09/03/2018 Status: F Source: [place] 5:45 AM [facility] REPOSITORY TYPE CODE TESTS RESULT OUT OF [...] MACROCYTE RARE Performed By: #### L100.0100 #### [facility] [address] [place], [place], [address] BASIC METABOLIC Collected: 08/30/2018 Status: F Source: [place] PROFILE (BMP) 5:05 AM [facility] REPOSITORY TYPE CODE TESTS RESULT OUT OF [...] GAP 6 Performed By: #### L500.2500 #### [facility] [address] [place], [address] BASIC METABOLIC Collected: 08/27/2018 Status: F Source: [place] PROFILE (BMP) 6:44 AM [facility] REPOSITORY TYPE CODE TESTS RESULT OUT OF [...] 8 GAP Performed By: #### L500.2500 #### [facility] [address] [place], [address] CBC W/DIFF, AUTOMATED Collected: 08/27/2018 Status: F Source: [place] 6:44 AM [facility] REPOSITORY TYPE CODE TESTS RESULT OUT OF [...] Lymph 0.67 Performed By: #### L100.0100 #### [facility] [address], [address] BASIC METABOLIC Collected: 08/20/2018 Status: F Source: [place] PROFILE (BMP) 5:30 AM [facility] REPOSITORY TYPE CODE TESTS RESULT OUT OF [...] GAP 5 Performed By: #### L500.2500 #### [facility] [address] [place], [address] CBC W/DIFF, AUTOMATED Collected: 08/20/2018 Status: F Source: [place] 5:30 AM [facility] REPOSITORY TYPE CODE TESTS RESULT OUT OF [...] COMMENT SCANNED Performed By: #### L100.0100 #### [facility] [address] [facility] [place], [address] HISTORY AND PHYSICAL Observed: 08/19/2018 Status: F Source: [place] EXAM 8:21 PM [facility] REPOSITORY [facility] Medical Records Department [address] [place] [address] History and Physical 08/19/181957 MR#: [id number] Acct: [id number] Name: DOUG CAST Rep #: [id number] : 1935 83 From: Christiano Boss MD PCP: Vijay Mason MD Status: ADM IN Y Location: [place] [address] Problem List (1) Metabolic encephalopathy Status: Acute [...] with below past medical history presented to [facility] Emergency Department with confusion. 08/14/2018 EKG [...] DISCHARGE SUMMARY Observed: 08/19/2018 Status: F Source: [place] 2:25 PM [facility] REPOSITORY [facility] Medical Records Department [address] [place] [address] Discharge Summary 08/19/18 1311 MR#: [id number] Acct: [id number] Name: DOUG CAST Brittani Rep #: [id number] : 1935 83 From: Jose Guadalupe Barton MD PCP: Vijay Mason MD Status: ADM IN Location: [place] [address] Discharge Date and Diagnosis - Problem List [...] fracture or subluxation. Consultations 08/15/18 00:18 Consult: Onc/Wound/maths tutor Routine Comment: Reason for Consult:: wounds on [...] unit PO BURGOS 10/10/16 Labetalol [Trandate (Beta Mavsi)] 200 mg PO BID 10/10/16 Pravastatin [Pravachol] [...] In 3- 5 days after discharge Disposition: [facility] facility Minutes spent on discharge:: 35 Patient Condition:: Good Medical Necessity - Tobacco Use Smoking Status: Never smoker Meaningful Use Info Meaningful Use Diagnoses (Choose all that apply): None applicable Code Visit Inpatient E AND M: 20277 Disch Hosp 08/19/18 1425 <Electronically signed by Jose Guadalupe Barton MD> Date Jose Guadalupe Barton MD Cosigner Signature (if applicable): Date CC: Jose Guadalupe Barton MD; Vijay Mason MD Signed TRANSFER TO EXTENDED Observed: 08/19/2018 Status: F Source: [facility] 1:09 PM [facility] REPOSIT[facility] Medical Records Department [address] [place] [address] Transfer to [facility] MR#: [id number] Acct: [id number] Name: DOUG CAST Rep #: [id number] : 1935 83 From: Jose Guadalupe Barton MD PCP: Vijay Mason MD Status: ADM IN DOUG CAST (Patient) (Health Ins. Claim No.) (Day of Discharge to Facility) Certification of patient admission REQUIRED AT TIME OF ADMISSION. I CERTIFY THAT POST-HOSPITAL F SERVICES ARE REQUIRED TO BE GIVEN ON AN IN-PATIENT BASIS BECAUSE OF THE ABOVE NAMED PATIENT'S NEED FOR RESIDENTIAL CARE ON A CONTINUING BASIS FOR THE CONDITION(S) FOR WHICH HE/SHE WAS RECEIVING IN-PATIENT HOSPITAL SERVICES PRIOR TO HIS/HER TRANSFER TO THE F. 08/19/18 1309 <Electronically signed by Jose Guadalupe Barton MD> Date Jose Guadalupe Barton MD - Diet 08/15/18 10:16 Diet: Regular Diet Food consistency:: Regular Liquid Consistency:: Regular/Thin Is pt able to select menu?: No Diet Comments: supervision by staff / family; [facility] - Wound(s) BILATERAL FEET Wound Type: Stasis [...] Recommendations/Changes: Rec low sodium diet- consistency per GENERAL LOT ATTENDANT. Continue Ensure Enlive w/ medpass as tolerated. [...] LEAD ELECTROCARDIOGRAM Observed: 08/19/2018 Status: F Source: [place] 12:32 PM [facility] REPOSITORY [facility] Cardiovascular Services [address], [place] [address] 12 Lead EKG 08/14/18 1900 MR#: [id number] Acct: [id number] Name: DOUG CAST Rep #: [id number] : 1935 83 From: Rah Barba MD Attending Dr: Jose Guadalupe Barton MD Status: ADM IN Ordering Dr: Ata Heath MD Date: 08/14/18 Location: [facility] Sex: M C Admitted: 08/14/18 Test Reason [...] Abnormal ECG Confirmed by BRET MACK, RAH ([id number]), desk editor LINO HOYT ([id number]) on 08/19/2018 12:32:25 PM Referred By: Confirmed By:RAH BARBA MD 08/19/18 1232 Date Rah Barba MD CC: Jose Guadalupe Barton MD; Ata Heath MD; Vijay Mason MD Signed BASIC METABOLIC Collected: 08/19/2018 Status: F Source: [place] PROFILE (BMP) 5:50 AM [facility] REPOSITORY TYPE CODE TESTS RESULT OUT OF [...] GAP 7 Performed By: #### L500.2500 #### [facility] [address] [place] [address] [address] [place], [place], [address] BASIC METABOLIC Collected: 08/18/2018 Status: F Source: [place] PROFILE (BMP) 6:50 AM [facility] REPOSIT[facility] TYPE CODE TESTS RESULT OUT OF [...] GAP 6 Performed By: #### L500.2500 #### [facility] [address] [place], [address] BASIC METABOLIC Collected: 08/17/2018 Status: F Source: [place] PROFILE (BMP) 6:17 AM [facility] REPOSIT[facility] TYPE CODE TESTS RESULT OUT OF [...] GAP 8 Performed By: #### L500.2500 #### [facility] [address] [place], [address] CREATININE, URINE Collected: 08/16/2018 Status: F Source: MARK (RANDOM) 8:15 PM [facility] REPOSITORY Order Comment: Has pt arrived? Y TYPE CODE TESTS RESULT OUT OF RANGE REFERENCE UNITS LAB L501.1200 NO RANGE EST. mg/dL Normal UR CREAT 84.20 Performed By: #### L501.1200 #### [facility] [address] [place], [address] URINE SODIUM Collected: 08/16/2018 Status: F Source: [place] 8:15 PM [facility] REPOSIT[facility] Order Comment: Has pt arrived? Y TYPE CODE TESTS RESULT OUT OF RANGE REFERENCE UNITS LAB L501.5500 Not Establ. mmol/L Normal UR NA 53 Performed By: #### L501.5500 #### [facility] [address] [place], [address] CONSULTATION Observed: 08/16/2018 Status: F Source: [place] 10:56 AM [facility] REPOSITORY [facility] Medical Records Department [address] [place] [address] Consultation 08/15/18 1132 MR#: [id number] Acct: [id number] Name: DOUG CAST Rep #: [id number] : 1935 83 From: Bernardino Drake MD PCP: Vijay Mason MD Status: ADM IN Y Location: [place] [address] Reason for Consult Date of Consultation: 08/15/18 [...] Output for Last 24 Hours Intake Total 1872 / 1872 Output Total 50 / 50 Balance 1822 / 1822 Laboratory Tests Past 24 Hrs WBC RBC [...] 08/16/2018 Status: F Source: [place] 7:08 AM [facility] REPOSIT[facility] TYPE CODE TESTS RESULT OUT OF [...] LYMPHOPENIA NOTED. Performed By: #### L100.0100 #### [facility] [address] [place], [address] COMPREHENSIVE METABOLIC Collected: 08/16/2018 Status: F Source: [facility] 7:08 AM [facility] REPOSIT[facility] TYPE CODE TESTS RESULT OUT OF [...] 7 Performed By: #### L500.4050, L501.3620 #### [facility] [address] [place], [address] CPK TOTAL, CREATINE Collected: 08/16/2018 Status: F Source: [place] KINASE 7:08 AM [facility] REPOSIT[facility] TYPE CODE TESTS RESULT OUT OF RANGE REFERENCE UNITS LAB L501.3620 39-308 U/L High CPK TOTAL 484 Performed By: #### L500.4050, L501.3620 #### [facility] [address] [place], [address] BRAIN/HEAD WITHOUT Observed: 08/16/2018 Status: F Source: [place] CONTRAST 12:00 AM [facility] REPOSITORY [facility] Imaging Services [address] [place] [address] Brain/Head without Contrast MR#: [id number] Acct: [id number] Name: DOUG CAST Brittani Rep #: [id number] : 1935 M 83 From: Boris Valderrama MD PCP: Vijay Mason MD Status: ADM IN Study: Brain/Head without Contrast Date of Exam: 08/16/18 Exam# [id number] Ordering Dr: Pablito Vela MD STUDY: CT [...] CC: Pablito Vela MD; Vijay Mason MD Registered Dental Assistant Rda: Signed Observed: 08/15/2018 Status: F Source: [place] CULTURE, URINE 2:58 PM [facility] REPOSITORY Urine Culture Culture exhibits no growth. Performed By: #### M100.0650 #### [facility] [address] [place], [place], [address] MRSA WOUND DNA BY Collected: 08/15/2018 Status: F Source: MARK PCR 10:45 AM [facility] REPOSIT[facility] Order Comment: Order Date: 08/15/18 Specimen Source? Leg wound left TYPE CODE TESTS RESULT OUT OF RANGE REFERENCE UNITS LAB L8200.1100 Negative Normal MRSA Negative RESULT LAB L8200.1150 Negative High SA RESULT POSITIVE Performed By: #### L8200.1075 #### [facility] [address] [place], [address] CONSULTATION Observed: 08/15/2018 Status: F Source: [place] 10:36 AM [facility] REPOSITORY [facility] Medical Records Department [address] [place] [address] Consultation 08/15/18 1018 MR#: [id number] Acct: [id number] Name: DOUG CAST Rep #: [id number] : 1935 83 From: Zakia Meyer MD PCP: Vijay Mason MD Status: ADM IN Y Location: [address] ADDENDUM by Zakia Meyer MD on 08/15/18 [...] back in 1999. Patient was brought to [facility] emergency room yesterday because he was found [...] Reason: FEVER [facility]op[facility] Admin: 08/15/18 09:35 Dose: Not Given Aspirin (Ecotrin) [facility] Last Admin: 08/15/18 09:35 Dose: Not Given Ergocalciferol (Vitamin D) 50,000 unit PO BURGOS [facility] Finasteride (Proscar) 5 mg PO DAILY [facility] Last Admin: 08/15/18 09:36 Dose: Not Given Heparin Sodium (Porcine) (Heparin Na) 5,000 unit SC Q12 [facility] Last Admin: 08/15/18 09:49 Dose: 5,000 unit Hydralazine HCl (Apresoline Iv) 5 mg IV Q4H PRN PRN PRN Reason: SBP > 160 Piperacillin Sod/Tazobactam Sod (Zosyn) 3.375 gm in 50 mls @ 12.5 mls/hr IV Q12 [facility] Last Admin: 08/15/18 09:48 Dose: 12.5 mls/hr Vancomycin IV Pharmacy to Dose (1,000 ea/ Sodium Chloride) 500 mls @ 250 mls/hr IV X1 PRN; Protocol Sodium Chloride () 1,000 mls @ 100 mls/hr IV .Q10H [facility] Stop: 08/15/18 10:29 Last Admin: 08/15/18 01:17 Dose: 100 mls/hr Sodium Chloride () 1,000 mls @ 999 mls/hr IV .Q1H1M ONE Stop: 08/15/18 10:37 Last Admin: 08/15/18 09:52 Dose: 999 mls/hr Sodium Chloride () 1,000 mls @ 125 mls/hr IV .Q8H [facility] Last Admin: 08/15/18 09:53 Dose: 125 mls/hr Labetalol HCl (Trandate) 200 mg PO BID [facility] Last Admin: 08/15/18 09:36 Dose: Not Given Magnesium Hydroxide (Milk Of Magnesia) 30 ml PO DAILY PRN PRN Reason: Constipation Nutritional Formula (Lactose Free) (Ensure Enlive) 120 ml PO 4X/DAY [facility] Last Admin: 08/15/18 09:36 Dose: Not Given Ondansetron HCl (Zofran) 4 mg IV Q8H PRN PRN PRN Reason: NAUSEA Pravastatin Sodium (Pravachol) 40 mg PO QHS [facility] Sodium Chloride () 5 - 30 [...] care with Dr. Vela. Zakia Meyer MD [phone] 08/15/18 1032 <Electronically signed by Zakia Meyer MD> Date Zakia Meyer MD Cosigner Signature (if applicable): Date CC: Zakia Meyer MD; Bernardino Drake MD; Vijay Mason MD Signed KIDNEY AND BLADDER Observed: 08/15/2018 Status: F Source: [place] 10:33 AM [facility] REPOSITORY [facility] Imaging Services [address] [place] [address] Kidney and Bladder MR#: [id number] Acct: [id number] Name: DOUG CAST Rep #: [id number] : 1935 M 83 From: Dionte Castillo DO PCP: Vijay Mason MD Status: ADM IN Study: Kidney and Bladder Date of Exam: 08/15/18 Exam# [id number] Ordering Dr: Zakia Meyer MD STUDY: RENAL [...] Dionte Castillo DO at 16:08 EDT Tel [phone], Service support , CC: Zakia Meyer MD; Vijay Mason MD Registered Dental Assistant Rda: Signed AMMONIA Collected: 08/15/2018 Status: F Source: [place] 9:38 AM [facility] REPOSITORY TYPE CODE TESTS RESULT OUT OF RANGE REFERENCE UNITS LAB L503.5510 11-32 umol/L Normal AMMONIA 18.0 Performed By: #### L503.5510 #### [facility] [address] [place], [place], [address] BASIC METABOLIC Collected: 08/15/2018 Status: F Source: [place] PROFILE (BMP) 5:20 AM [facility] REPOSIT[facility] TYPE CODE TESTS RESULT OUT OF [...] 9 Performed By: #### L500.2500, L501.3620 #### [facility] [address] [place], [address] CPK TOTAL, CREATINE Collected: 08/15/2018 Status: F Source: [place] KINASE 5:20 AM [facility] REPOSIT[facility] TYPE CODE TESTS RESULT OUT OF RANGE REFERENCE UNITS LAB L501.3620 39-308 U/L High CPK TOTAL 890 Performed By: #### L500.2500, L501.3620 #### [facility] [address] [place], [address] LACTIC ACID Collected: 08/15/2018 Status: F Source: [place] 1:33 AM [facility] REPOSITORY TYPE CODE TESTS RESULT OUT OF REFERENCE UNITS RANGE LAB L503.6005 0.4-2.0 mmol/L High LACTIC ACID 2.3 Result Comment: Critical Result(s) Called at: 02:27:05 08/15/2018 by: Cecilia Martin to CDotterer Performed By: #### L503.6005 #### [facility] [address] [place], [address] Observed: 08/15/2018 Status: F Source: [place] CULTURE, BLOOD (WB) 1:23 AM [facility] REPOSITORY BC No growth in 5 days. Performed By: #### M200.1000 #### [facility] [address] [place], [address] HISTORY AND PHYSICAL Observed: 08/15/2018 Status: F Source: MARK EXAM 1:08 AM [facility] REPOSITORY [facility] Medical Records Department [address] [place] [address] History and Physical 08/14/187 MR#: [id number] Acct: [id number] Name: DOUG CAST Rep #: [id number] : 1935 83 From: Chase Zavala MD PCP: Vijay Mason MD Status: ADM IN Location: [place] [id number] ADDENDUM by Chase Zavala MD on 08/15/18 at 0108 Code Visit Elevated troponin patient had elevated troponin at the ED. ED doctor reports consult cardiology. Per conversation between ED doctor and client director which was reported by ED doctor there [...] room air. Clinical monitoring. Code Visit Inpatient Ankit AND M: 40796 Init Hosp L3 08/15/18 0037 <Electronically signed by Chase Zavala MD> Date Chase Zavala MD Cosigner Signature: Date (if applicable) CC: Chase Zavala MD; Vijay Mason MD Signed BASIC METABOLIC Collected: 08/15/2018 Status: F Source: [place] PROFILE (BMP) 12:25 AM [facility] REPOSITORY TYPE CODE TESTS RESULT OUT OF [...] GAP 11 Performed By: #### L500.2500 #### [facility] [address] [place], [address] EMERGENCY DEPARTMENT Observed: 08/14/2018 Status: F Source: [place] SUMMARY 11:19 PM [facility] REPOSITORY [facility] Medical Records Department [address] [place] [address] Emergency Department Summary 08/14/182107 MR#: [id number] Acct: [id number] Name: DOUG CAST Rep #: [id number] : 1935 83 From: Ata Heath MD [...] 30 minutes. This note was generated with [employer] dictation software. It may contain incorrect words, [...] problems, contact your Primary Care Provider. Call [facility] ([phone]) or report to the closest Emergency Room. Call 911 if necessary. 08/14/18 6884 <Electronically signed by Ata Heath MD> Date Ata Heath MD Cosigner Signature (If Indicated): Date CC: Vijay Mason MD LACTIC ACID Collected: 08/14/2018 Status: F Source: [place] 9:15 PM [facility] REPOSITORY Order Comment: Yes/No query for Sepsis Lactate Rule Y TYPE CODE TESTS RESULT OUT OF REFERENCE UNITS RANGE LAB L503.6005 0.4-2.0 mmol/L High LACTIC ACID 2.1 Result Comment: CALLED [facility] WITH CRITICAL [facility] BY [facility] 08-14-18 AT 2154PM READ BACK BY SAME Performed By: #### L503.6005 #### [facility] [address] [facility] [place], [place], [address] Observed: 08/14/2018 Status: F Source: [place] CULTURE, DEEP WOUND 8:05 PM [facility] REPOSITORY Order Date: 08/14/18 Gram Stain Gram [...] <=1 S (NF) indicates non-formulary drug at [facility]. Approval by Infectious Disease Specialist required before non-formulary drugs may be ordered and/or dispensed. Cult, Anaerobic No anaerobic bacteria isolated. Performed By: #### M100.1500 #### [facility] [address] [place], [place], [address] BRAIN/HEAD WITHOUT Observed: 08/14/2018 Status: F Source: [place] CONTRAST 6:54 PM [facility] REPOSITORY [facility] Imaging Services [address] [place] [address] Brain/Head without Contrast MR#: [id number] Acct: [id number] Name: DOUG CAST Rep #: [id number] : 1935 M 83 From: Dionte Castillo DO PCP: Vijay Mason MD Status: REG ER Study: Brain/Head without Contrast Date of Exam: 08/14/18 Exam# [id number] Ordering Dr: Ata Heath MD STUDY: CT [...] Dionte Castillo DO at 20:58 EDT Tel [phone], Service support , CC: Ata Heath MD; Vijay Mason MD Registered Dental Assistant Rda: Signed SPINE CERVICAL Observed: 08/14/2018 Status: F Source: [place] WITHOUT CONTRAS 6:54 PM [facility] REPOSITORY [facility] Imaging Services [address] [place] [address] Spine Cervical without Contras MR#: [id number] Acct: [id number] Name: DOUG CAST Rep #: [id number] : 1935 M 83 From: Dionte Castillo DO PCP: Vijay Mason MD Status: REG ER Study: Spine Cervical without Contras Date of Exam: 08/14/18 Exam# [id number] Ordering Dr: Ata Heath MD STUDY: CT [...] Dionte Castillo DO at 21:04 EDT Tel [phone], Service support , CC: Ata Heath MD; Vijay Mason MD Registered Dental Assistant Rda: Signed CHEST 1 VIEW Observed: 08/14/2018 Status: F Source: [place] (PORTABLE) 6:54 PM [facility] REPOSITORY [facility] Imaging Services [address] [place] [address] Chest 1 View (Portable) MR#: [id number] Acct: [id number] Name: DOUG CAST Rep #: [id number] : 1935 M 83 From: Dionte Castillo DO PCP: Vijay Mason MD Status: REG ER Study: Chest 1 View (Portable) Date of Exam: 08/14/18 Exam# [id number] Ordering Dr: Ata Heath MD STUDY: X-RAY [...] Dionte Castillo DO at 21:05 EDT Tel [phone], Service support , CC: Ata Heath MD; Vijay Mason MD Registered Dental Assistant Rda: Signed LUMBAR SPINE 2 OR 3 Observed: 08/14/2018 Status: F Source: [place] VIEWS 6:54 PM [facility] REPOS[facility] Imaging Services [address] [place] [address] Lumbar Spine 2 or 3 Views MR#: [id number] Acct: [id number] Name: DOUG CAST Rep #: [id number] : 1935 M 83 From: Dionte Castillo DO PCP: Vijay Mason MD Status: REG ER Study: Lumbar Spine 2 or 3 Views Date of Exam: 08/14/18 Exam# [id number] Ordering Dr: Ata Heath MD STUDY: X-RAY [...] spine is straightened lordosis. Electronically Signed: Dionte CastilloDO at 21:06 EDT Tel [phone], Service support , CC: Ata Heath MD; Vijay Mason MD Registered Dental Assistant Rda: Signed CBC W/DIFF, AUTOMATED Collected: 08/14/2018 Status: F Source: [place] 6:45 PM [facility] REPOSIT[facility] TYPE CODE TESTS RESULT OUT OF [...] MORPH C+C Performed By: #### L100.0100 #### [facility] [address] [place], [address] BASIC METABOLIC Collected: 08/14/2018 Status: C Source: [place] PROFILE (BMP) 6:45 PM [facility] REPOSITORY TYPE CODE TESTS RESULT OUT OF [...] RESULTS CALLED TO [facility] 08/14/18 Dorian Conrad. REPORT READ BACK BY SAME . Moderate Hemolysis, Result may be falsely increased. Moderate Hemolysis, Result may be falsely increased. LAB L501.5900 98-107 mmol/L High CL 109 LAB L501.6100 21.0-32.0 mmol/L Normal CO2 22.0 LAB L501.6200 5-15 Normal GAP 12 Performed By: #### L500.2500, L501.4010 #### [facility] [address] [place], [address] TROPONIN-I Collected: 08/14/2018 Status: F Source: MARK 6:45 PM [facility] REPOSITORY TYPE CODE TESTS RESULT OUT OF RANGE REFERENCE UNITS LAB L501.4010 <0.045 ng/mL High 0.230 TROPONIN-I Result Comment: TROPONIN-I EXPECTED VALUES <0.045 Negative 0.045 - 0.590 Consistent with Cardiac Damage > OR = 0.600 Critical Value Not every elevated troponin is indicative of [place]. These values should be used with clinical judgement in examining the patient's clinical picture for diagnosis. To establish a diagnosis of [place] versus myocardial injury, there must be a demonstrated rise and/or fall in the troponin values, in addition to ischemic symptoms, EKG changes, new regional wall motion abnormality, and/or angiographical evidence. PLEASE NOTE: REFERENCE RANGES EDITED 18 Performed By: #### L500.2500, L501.4010 #### [facility] [address] [place], [address] CPK TOTAL, CREATINE Collected: 08/14/2018 Status: F Source: [place] KINASE 6:45 PM [facility] REPOSITORY TYPE CODE TESTS RESULT OUT OF RANGE REFERENCE UNITS LAB L501.3620 39-308 U/L High CPK TOTAL 2125 Result Comment: Moderate Hemolysis, Result may be falsely increased. Performed By: #### L501.3620 #### [facility] [address], [address] URINALYSIS, COMPLETE Collected: 08/14/2018 Status: F Source: MARK 5:35 PM [facility] REPOSITORY Order Comment: Order Date: 08/14/18 COLOR [...] 1+ URATE Performed By: #### L400.0001 #### [facility] [address] [facility] [place], [address] CREATININE, URINE Collected: 08/14/2018 Status: F Source: [place] 5:35 PM [facility] REPOSIT[facility] Order Comment: Comments: Sent from ED TYPE CODE TESTS RESULT OUT OF RANGE REFERENCE UNITS LAB L502.0300 NO RANGE EST. mg/dL Normal URINE 253.00 CREAT Performed By: #### L502.0300 #### [facility] [address] [place], [address] URINE SODIUM Collected: 08/14/2018 Status: F Source: [place] 5:35 PM [facility] REPOS[facility] Order Comment: Comments: Sent from ED TYPE CODE TESTS RESULT OUT OF RANGE REFERENCE UNITS LAB L501.5500 Not Establ. mmol/L Normal UR NA 55 Performed By: #### L501.5500 #### [facility] [address] [place], [address] PROGRESS Observed: 07/31/2018 Status: COMPLETED Source: [place] 11:32 AM [facility] REPOSITORY HNO ID: [id number] Author: Julisa Paulson (Maria Isabel) MARIA ISABEL Tran Service: (none) Author Type: LICENSED NURSE Type: Progress Notes Filed: 07/31/2018 1:51 PM Note Text: 82 year old male here for INACTIVATED INFLUENZA VACCINE. 9874-3645 Season Patient is identified by name and date of : Yes [] CONTRAINDICATIONS color enhanced section Age less than 6 months? No Allergy to eggs, chicken, chicken feathers, or chicken dander? No Allergy to thimerosal (a preservative) or formaldehyde, gelatin? No History of severe reaction to any vaccine component or a previous dose of influenza vaccination? 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 Yes See immunization activity in [facility] for details of immunizations adminstered today. Patient age: [age] year old For The 3452-2371 Flu Season 6-35 months old: Fluzone 0.25 [...] time. PROGRESS Observed: 07/31/2018 Status: COMPLETED Source: [place] 11:13 AM [facility] REPOSITORY HNO ID: [id number] Author: Rah Perez Service: (none) Author Type: [...] No jaundice or rash. No petechiae. NEUROLOGIC: assembler deck and hull II-XII are grossly intact. No focal motor weakness. MUSCULOSKELETAL: No muscle wasting. ASSESSMENT/PLAN: (D64.9) Anemia, unspecified type (primary encounter diagnosis) (N18.3) CKD (chronic kidney disease) stage 3, GFR 30-59 ml/min Assessment: -Tolerating and benefiting from Aranesp. -Maintaining appropriate iron levels. Plan: -Will continue every other week CBC/possible Aranesp. -Flu shot today. DO MARK Mendoza ABS GR + CBC Collected: 07/31/2018 Status: F Source: [place] 10:52 AM [facility] REPOS[facility] TYPE CODE TESTS RESULT OUT OF REFERENCE UNITS RANGE LAB WWBC 3.70-11.00 k/uL Mark WBC 4.25 LAB WR[facility] 4.20-6.00 m/uL Low Mark RBC 3.55 LAB [facility] 13.0-17.0 g/dL Low Mark Hemoglobin 10.3 LAB WHCT 39.0-51.0 % Low [place] Hematocrit 34.5 LAB WMCV 80.0-100.0 fL [place] MCV 97.2 LAB WMCH 26.0-34.0 pg [place] MCH 29.0 LAB WMCHC 30.5-36.0 g/dL Low [place] MCHC 29.9 LAB WRDW 11.5-15.0 % [place] High RDW 15.2 LAB WPLT 150-400 k/uL [place] Platelet Cnt 176 LAB WMPV 9.0-12.7 fL [place] MPV 10.5 Result Comment: Test performed at: [facility], [address] [place] [address]. LAB ABGRAN 1.45-7.50 k/uL Absol Gran 3.28 Count [place] ISTAT BMP Collected: 07/31/2018 Status: F Source: [place] 10:52 AM [facility] REPOSITORY TYPE CODE TESTS RESULT OUT OF [...] AND TIBC Collected: 07/31/2018 Status: F Source: [place] 10:52 AM [facility] REPOSITORY TYPE CODE TESTS RESULT OUT OF REFERENCE UNITS RANGE LAB IRN 41-186 ug/dL Low Iron 31 LAB TIBC 232-386 ug/dL Low TIBC 182 LAB SAT 15-57 % Transferrin Saturatn 17 Performed By: #### IRON, FERR #### [facility] [employer] [address] [place], [place] [address] FERRITIN Collected: 07/31/2018 Status: F Source: [place] 10:52 AM [facility] REPOSITORY TYPE CODE TESTS RESULT OUT OF REFERENCE UNITS RANGE LAB FERR 30.3-565.7 ng/mL Ferritin 448.4 Performed By: #### IRON, FERR #### [facility] [employer] [address] [address] CNOVSP Observed: 07/31/2018 Status: COMPLETED Source: [place] 9:50 AM [facility] REPOSITORY Visit (SP) Office (HEMAWS) DOUG CAST ([id number]) 1935 [facility] Date Time Provider Department 07/31/18 9:50 AM [...] No jaundice or rash. No petechiae. NEUROLOGIC: assembler deck and hull II-XII are grossly intact. No focal motor [...] ordered. Right deltiod MARIA ISABEL [place] LPN, LPN 07/31/2018 1:51 PM Signed 82 year old male here for INACTIVATED INFLUENZA VACCINE. 5052-6102 Season Patient is identified by name and date of : Yes [] CONTRAINDICATIONS color enhanced section Age less than 6 months? No Allergy to eggs, chicken, chicken feathers, or chicken dander? No Allergy to thimerosal (a preservative) or formaldehyde, gelatin? No History of severe reaction to any vaccine component or a previous dose of influenza vaccination? 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 Yes See immunization activity in [facility] for details of immunizations adminstered today. Patient age: [age] year old For The 0204-2753 Flu Season 6-35 months old: Fluzone 0.25 [...] one months time. Referring Provider: RAH PEREZ [[id number]] Allergies As of Date: 07/31/2018 (No Known Allergies) Date Reviewed: 07/31/2018 Reviewed by: Julisa Paulson (Paste Mixer) MARIA ISABEL Tran - Fully Assessed Reason [...] FOR* Visit Notes: >> Julisa Tran LPN SunJul 31, 2018 11:05 AM Status: Signed Est pt. Discuss recent lab results Julisa Tran LPN >> Julisa Tran LPN SunJul 31, 2018 11:32 AM Status: Signed Influenza virus vaccine given as ordered. Right deltiod Julisa Tran LPN Encounter Status:Closed by RAH PEREZ DO on 07/31/18 [place] ABS GR + CBC Collected: 07/17/2018 Status: F Source: [place] 11:19 AM [facility] REPOSITORY TYPE CODE TESTS RESULT OUT OF REFERENCE UNITS RANGE LAB WWBC 3.70-11.00 k/uL [place] WBC 5.31 LAB WRBC 4.20-6.00 m/uL Low [place] RBC 3.35 LAB WHGB 13.0-17.0 g/dL Low [place] Hemoglobin 9.7 LAB WHCT 39.0-51.0 % Low [place] Hematocrit 31.6 LAB WMCV 80.0-100.0 fL [place] MCV 94.3 LAB WMCH 26.0-34.0 pg [place] MCH 29.0 LAB WMCHC 30.5-36.0 g/dL [place] MCHC 30.7 LAB WRDW 11.5-15.0 % [place] RDW 13.7 LAB WPLT 150-400 k/uL [place] Platelet Cnt 176 LAB WMPV 9.0-12.7 fL [place] MPV 10.1 Result Comment: Test performed at: [facility], [address] [place] [address] Rd[address] [place] [address]. LAB ABGRAN 1.45-7.50 k/uL Absol Gran 4.32 Count [place] ABS GR + CBC Collected: 07/03/2018 Status: F Source: [place] 12:00 PM [facility] REPOSITORY TYPE CODE TESTS RESULT OUT OF REFERENCE UNITS RANGE LAB WWBC 3.70-11.00 k/uL [place] WBC 6.20 LAB WRBC 4.20-6.00 m/uL Low [place] RBC 3.49 LAB WHGB 13.0-17.0 g/dL Low [place] Hemoglobin 10.1 LAB WHCT 39.0-51.0 % Low [place] Hematocrit 33.3 LAB WMCV 80.0-100.0 fL [place] MCV 95.4 LAB WMCH 26.0-34.0 pg [place] MCH 28.9 LAB WMCHC 30.5-36.0 g/dL Low [place] MCHC 30.3 LAB WRDW 11.5-15.0 % [place] RDW 13.4 LAB WPLT 150-400 k/uL [place] Platelet Cnt 166 LAB WMPV 9.0-12.7 fL [place] MPV 10.6 Result Comment: Test performed at: [facility], [address] [place] [address]. LAB ABGRAN 1.45-7.50 k/uL Absol Gran 5.24 Count [place] ABS GR + CBC Collected: 06/19/2018 Status: F Source: [place] 10:49 AM [facility] REPOSITORY TYPE CODE TESTS RESULT OUT OF REFERENCE UNITS RANGE LAB WWBC 3.70-11.00 k/uL [place] WBC 5.14 LAB WRBC 4.20-6.00 m/uL Low [place] RBC 3.77 LAB WHGB 13.0-17.0 g/dL Low [place] Hemoglobin 11.0 LAB WHCT 39.0-51.0 % Low [place] Hematocrit 35.8 LAB WMCV 80.0-100.0 fL [place] MCV 95.0 LAB WMCH 26.0-34.0 pg [place] MCH 29.2 LAB WMCHC 30.5-36.0 g/dL [place] MCHC 30.7 LAB WRDW 11.5-15.0 % [place] RDW 14.4 LAB WPLT 150-400 k/uL [place] Platelet Cnt 168 LAB WMPV 9.0-12.7 fL [place] MPV 10.4 Result Comment: Test performed at: [facility], [address] [place] [address] Rd[address] [place] [address]. LAB ABGRAN 1.45-7.50 k/uL Absol Gran 4.29 Count [place] ABS GR + CBC Collected: 06/05/2018 Status: F Source: [place] 11:00 AM [facility] REPOSITORY TYPE CODE TESTS RESULT OUT OF REFERENCE UNITS RANGE LAB WWBC 3.70-11.00 k/uL [place] WBC 3.72 LAB WRBC 4.20-6.00 m/uL Low [place] RBC 3.23 LAB WHGB 13.0-17.0 g/dL Low [place] Hemoglobin 9.5 LAB WHCT 39.0-51.0 % Low [place] Hematocrit 30.9 LAB WMCV 80.0-100.0 fL [place] MCV 95.7 LAB WMCH 26.0-34.0 pg [place] MCH 29.4 LAB WMCHC 30.5-36.0 g/dL [place] MCHC 30.7 LAB WRDW 11.5-15.0 % [place] RDW 14.0 LAB WPLT 150-400 k/uL Low [place] Platelet Cnt 119 LAB WMPV 9.0-12.7 fL [place] MPV 10.7 LAB ABGRAN 1.45-7.50 k/uL Absol Gran Count 2.76 PROGRESS Observed: 05/25/2018 Status: COMPLETED Source: [place] 3:00 PM [facility] OTHER CAMPUS REPOSITORY HNO ID: [id number] Author: Angel Medrano Service: (none) Author Type: [...] of these are being followed here in [place]. At this point I am most concerned [...] with more than 50% of the total jzos-zn-fbjw time of the visit in counseling / coordination of care. [place] ABS GR + CBC Collected: 05/22/2018 Status: F Source: [place] 11:07 AM [facility] REPOSITORY TYPE CODE TESTS RESULT OUT OF REFERENCE UNITS RANGE LAB WWBC 3.70-11.00 k/uL [place] WBC 4.27 LAB WRBC 4.20-6.00 m/uL Low [place] RBC 3.45 LAB WHGB 13.0-17.0 g/dL Low [place] Hemoglobin 10.2 LAB WHCT 39.0-51.0 % Low [place] Hematocrit 32.8 LAB WMCV 80.0-100.0 fL [place] MCV 95.1 LAB WMCH 26.0-34.0 pg [place] MCH 29.6 LAB WMCHC 30.5-36.0 g/dL [place] MCHC 31.1 LAB WRDW 11.5-15.0 % [place] RDW 14.3 LAB WPLT 150-400 k/uL Low [place] Platelet Cnt 116 LAB WMPV 9.0-12.7 fL [place] MPV 11.0 Result Comment: Test performed at: [facility] [place], [address] [place] [address]. LAB ABGRAN 1.45-7.50 k/uL Absol Gran 3.30 Count CNOV Observed: 05/17/2018 Status: COMPLETED Source: [place] 9:15 AM [facility] REPOSITORY Office Visit (AGMIL) DOUG CAST ([id number]) 1935 M [facility] Date Time Provider Department 05/17/18 9:15 AM [...] of these are being followed here in [place]. At this point I am most concerned [...] with more than 50% of the total guzf-dp-xlil time of the visit in counseling / coordination of care. Referring Provider: VIJAY MASON [[id number]] Allergies As of Date: 05/17/2018 (No Known Allergies) Date Reviewed: 05/17/2018 Reviewed by: Angel Medrano - Fully Assessed Reason for Visit: Stenosis [1326] Cmt: Doug is here for follow up carotid stenosis. 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] Other Visit Diagnosis:H/O carotid endarterectomy [Z98.890] Order(s):US CAROTID ARTERIES [facility] [[id number]] Order #: [id number] FUTURE Prescriptions as of 05/17/2018 Sig: FINASTERIDE [...] CAROTID DUPLEX Observed: 05/08/2018 Status: F Source: [place] [facility]TR[facility] 11:14 AM [facility] REPOSITORY [facility] Cardiovascular Services [address] [place] [address] Carotid Duplex Ultrasound 05/07/18 1001 MR#: [id number] Acct: [id number] Name: DOUG CAST Rep #: [id number] : 1935 82 From: Karthik Holloway MD Attending Dr: ANGEL MEDRANO MD Status: REG CLI Ordering Dr: Angel Medrano MD Date: 05/07/18 Location: [facility] Sex: M C Admitted: Reason For [...] the left vertebral artery. Procedure Carotid Duplex 91431. Exam performed in department. Interpretation Summary Mild (<50%) stenosis right extracranial internal carotid. Mild (<50%) stenosis left extracranial internal carotid. Flow within the vertebral arteries is antegrade bilaterally. Ordering Physician: ANGEL MEDRANO Referring Physician: Vijay Mason Performed By: Kerri Alvarez RVT 05/08/18 1113 Date Karthik Holloway MD CC: ANGEL MEDRANO MD; Vijay Mason MD Date Dictated: 05/07/18 1001 Date Transcribed: 05/08/18 1113 Registered Dental Assistant Rda: Signed [place] ABS GR + CBC Collected: 05/08/2018 Status: F Source: [place] 11:11 AM [facility] REPOSITORY TYPE CODE TESTS RESULT OUT OF REFERENCE UNITS RANGE LAB WWBC 3.70-11.00 k/uL Low [place] WBC 3.38 LAB WRBC 4.20-6.00 m/uL Low [place] RBC 3.37 LAB WHGB 13.0-17.0 g/dL Low [place] Hemoglobin 10.0 LAB WHCT 39.0-51.0 % Low [place] Hematocrit 31.9 LAB WMCV 80.0-100.0 fL [place] MCV 94.7 LAB WMCH 26.0-34.0 pg [place] MCH 29.7 LAB WMCHC 30.5-36.0 g/dL [place] MCHC 31.3 LAB WRDW 11.5-15.0 % [place] RDW 13.5 LAB WPLT 150-400 k/uL Low [place] Platelet Cnt 114 LAB WMPV 9.0-12.7 fL [place] MPV 10.5 Result Comment: Test performed at: [facility], [address] [place] [address] Rd., [place] [address]. LAB ABGRAN 1.45-7.50 k/uL Absol Gran 2.64 Count IRON AND TIBC Collected: 04/24/2018 Status: F Source: [place] 11:17 AM [facility] REPOSITORY TYPE CODE TESTS RESULT OUT OF REFERENCE UNITS RANGE LAB IRN 41-186 ug/dL [place] 34 LAB TIBC 232-386 ug/dL Low TIBC 168 LAB SAT 15-57 % Transferrin Saturatn 20 Performed By: #### IRON, FERR #### [facility] [address] [place], [place] [address] FERRITIN Collected: 04/24/2018 Status: F Source: [place] 11:17 AM [facility] REPOSITORY TYPE CODE TESTS RESULT OUT OF REFERENCE UNITS RANGE LAB FERR 30.3-565.7 ng/mL Ferritin 348.0 Performed By: #### IRON, FERR #### [facility] [address] [place], [place] [address] MARK CBC AND DIFF Collected: 04/24/2018 Status: F Source: [place] 11:16 AM [facility] REPOSITORY TYPE CODE TESTS RESULT OUT OF REFERENCE UNITS RANGE LAB WWBC 3.70-11.00 k/uL Low [place] WBC 3.58 LAB WRBC 4.20-6.00 m/uL Low [place] RBC 3.43 LAB WHGB 13.0-17.0 g/dL Low [place] Hemoglobin 10.2 LAB WHCT 39.0-51.0 % Low [place] Hematocrit 32.8 LAB WMCV 80.0-100.0 fL [place] MCV 95.6 LAB WMCH 26.0-34.0 pg [place] MCH 29.7 LAB WMCHC 30.5-36.0 g/dL [place] MCHC 31.1 LAB WRDW 11.5-15.0 % [place] RDW 13.3 LAB WPLT 150-400 k/uL Low [place] Platelet Cnt 109 LAB WMPV 9.0-12.7 fL [place] MPV 10.9 Result Comment: Test performed at: [address] [place] [address]. LAB WNEUT % [place] Neut% 70.3 LAB WLYMP % [place] Lymp% 15.1 LAB WMONOC % [place] Newton% 8.4 LAB WEOS % [place] Eos% 5.9 LAB WBASO % [place] Baso% 0.3 LAB WANEUT 1.45-7.5 k/uL 0 [place] Abs Neut 2.52 LAB WALYMP 1.00-4.0 k/uL Low 0 [place] Abs Lymp 0.54 LAB WAMONO <0.87 k/uL [place] Abs Newton 0.30 LAB WAEOS <0.46 k/uL [place] Abs Eos 0.21 LAB WABASO <0.11 k/uL [place] Abs Baso <0.03 DOWNTIME REPORT Observed: 04/18/2018 Status: F Source: [place] 1:15 PM [facility] REPOSITORY [facility] Medical Records Department [address] [place] [address] Downtime Report MR#: [id number] Acct: [id number] Name: DOUG CAST Rep #: [id number] : 1935 82 From: Harpreet Ma PCP: Status: REG CLI This patient was seen during an EMR downtime April 01, 2018 - April 08, 2018. This patient may have a combination of paper and electronic documentation or all paper documentation. All documentation is viewable within the e-chart portion of [employer] for each patient visit. [place] ABS GR + CBC Collected: 04/10/2018 Status: F Source: [place] 10:52 AM [facility] REPOSITORY TYPE CODE TESTS RESULT OUT OF REFERENCE UNITS RANGE LAB WWBC 3.70-11.00 k/uL [place] WBC 3.93 LAB WRBC 4.20-6.00 m/uL Low [place] RBC 3.71 LAB WHGB 13.0-17.0 g/dL Low [place] Hemoglobin 11.0 LAB WHCT 39.0-51.0 % Low [place] Hematocrit 36.0 LAB WMCV 80.0-100.0 fL [place] MCV 97.0 LAB WMCH 26.0-34.0 pg [place] MCH 29.6 LAB WMCHC 30.5-36.0 g/dL [place] MCHC 30.6 LAB WRDW 11.5-15.0 % [place] RDW 13.2 LAB WPLT 150-400 k/uL [place] Platelet Cnt 111 LAB WMPV 9.0-12.7 fL [place] MPV 11.3 Result Comment: Test performed at: [facility], [address] [place] [address]. LAB ABGRAN 1.45-7.50 k/uL Absol Gran 2.93 Count Observed: 04/05/2018 Status: F Source: [place] CULTURE, DEEP WOUND 9:00 AM [facility] REPOSITORY RESULT(S) PREVIOUSLY REPORTED ON MANUAL REQUISITION [...] 160 R (NF) indicates non-formulary drug at [facility]. Approval by Infectious Disease Specialist required before non-formulary drugs may be ordered and/or dispensed. Cult, Anaerobic No anaerobic bacteria isolated. Performed By: #### M100.1500 #### [facility] [address] [place], [address] [place] ABS GR + CBC Collected: 03/27/2018 Status: F Source: [place] 11:01 AM [facility] REPOSITORY TYPE CODE TESTS RESULT OUT OF REFERENCE UNITS RANGE LAB WWBC 3.70-11.00 k/uL [place] WBC 4.88 LAB WRBC 4.20-6.00 m/uL Low [place] RBC 3.51 LAB WHGB 13.0-17.0 g/dL Low [place] Hemoglobin 10.5 LAB WHCT 39.0-51.0 % Low [place] Hematocrit 34.6 LAB WMCV 80.0-100.0 fL [place] MCV 98.6 LAB WMCH 26.0-34.0 pg [place] MCH 29.9 LAB WMCHC 30.5-36.0 g/dL Low [place] MCHC 30.3 LAB WRDW 11.5-15.0 % [place] RDW 13.3 LAB WPLT 150-400 k/uL [place] Platelet Cnt 138 LAB WMPV 9.0-12.7 fL [place] MPV 10.5 Result Comment: Test performed at: [facility] [place], [address] [place] [address]. LAB ABGRAN 1.45-7.50 k/uL Absol Gran 4.02 Count Observed: 03/15/2018 Status: F Source: [place] CULTURE, DEEP WOUND 11:30 AM [facility] REPOSITORY Comments: LLE ULCER Gram Stain Gram [...] <=1 S (NF) indicates non-formulary drug at [facility]. Approval by Infectious Disease Specialist required [...] <=0.5 S (NF) indicates non-formulary drug at [facility]. Approval by Infectious Disease Specialist required before non-formulary drugs may be ordered and/or dispensed. * CLSI guidelines does not recommend testing of cephalosporins. This interpretation is deduced from Beta-lactam/penicillin results. Cult, Anaerobic No anaerobic bacteria isolated. Performed By: #### M100.1500 #### [facility] [address] [place], [address] [place] ABS GR + CBC Collected: 03/13/2018 Status: F Source: [place] 11:13 AM [facility]AMP[facility] REPOSITORY TYPE CODE TESTS RESULT OUT OF REFERENCE UNITS RANGE LAB WWBC 3.70-11.00 k/uL Low [place] WBC 3.24 LAB WRBC 4.20-6.00 m/uL Low [place] RBC 3.68 LAB WHGB 13.0-17.0 g/dL Low [place] Hemoglobin 11.0 LAB WHCT 39.0-51.0 % Low [place] Hematocrit 36.6 LAB WMCV 80.0-100.0 fL [place] MCV 99.5 LAB WMCH 26.0-34.0 pg [place] MCH 29.9 LAB WMCHC 30.5-36.0 g/dL Low [place] MCHC 30.1 LAB WRDW 11.5-15.0 % [place] RDW 15.0 LAB WPLT 150-400 k/uL [place] Platelet Cnt 102 LAB WMPV 9.0-12.7 fL [place] MPV 10.3 Result Comment: Test performed at: [facility], [address] [place] [address]. LAB ABGRAN 1.45-7.50 k/uL Absol Gran 2.45 Count BASIC METABOLIC Collected: 03/01/2018 Status: F Source: [place] PROFILE (BMP) 1:29 PM [facility] REPOSITORY TYPE CODE TESTS RESULT OUT OF [...] GAP 5 Performed By: #### L500.2500 #### [facility] [address] [place], [address] VITAMIN D,25 HYDROXY Collected: 03/01/2018 Status: F Source: [place] 1:29 PM [facility] REPOSITORY TYPE CODE TESTS RESULT OUT OF RANGE REFERENCE UNITS LAB L506.1000 29.95-100.01 ng/mL Normal Vitamin D 76.4 25-OH Result Comment: Vitamin D 25(OH) Status Range Deficiency <20 ng/mL (50nmol/L) Insuffciency 20 - 30 ng/mL (50 - 75 nmol/L) Sufficiency 30 - 100 ng/mL (75 - 250 nmol/L) Toxicity >100 ng/mL (>250 nmol/L) Performed By: #### L506.1000 #### [facility] [address] [place], [address] CBC W/DIFF, AUTOMATED Collected: 03/01/2018 Status: F Source: [place] 1:29 PM [facility] REPOSITORY TYPE CODE TESTS RESULT OUT OF [...] MOD DEC Performed By: #### L100.0100 #### [facility] [address] [place], [place], [address] [place] ABS GR + CBC Collected: 02/27/2018 Status: F Source: [place] 10:50 AM [facility] REPOSITORY TYPE CODE TESTS RESULT OUT OF REFERENCE UNITS RANGE LAB WWBC 3.70-11.00 k/uL [place] WBC 3.97 LAB WRBC 4.20-6.00 m/uL Low [place] RBC 3.08 LAB WHGB 13.0-17.0 g/dL Low [place] Hemoglobin 9.3 LAB WHCT 39.0-51.0 % Low [place] Hematocrit 30.7 LAB WMCV 80.0-100.0 fL [place] MCV 99.7 LAB WMCH 26.0-34.0 pg [place] MCH 30.2 LAB WMCHC 30.5-36.0 g/dL Low [place] MCHC 30.3 LAB WRDW 11.5-15.0 % [place] RDW 14.5 LAB WPLT 150-400 k/uL Low [place] Platelet Cnt 100 LAB WMPV 9.0-12.7 fL [place] MPV 11.3 Result Comment: Test performed at: [facility], [address] [place] [address]. LAB ABGRAN 1.45-7.50 k/uL Absol Gran 2.71 Count [place] ABS GR + CBC Collected: 02/13/2018 Status: F Source: [place] 11:50 AM [facility] REPOSITORY TYPE CODE TESTS RESULT OUT OF REFERENCE UNITS RANGE LAB WWBC 3.70-11.00 k/uL Low [place] WBC 3.53 LAB WRBC 4.20-6.00 m/uL Low [place] RBC 3.34 LAB WHGB 13.0-17.0 g/dL Low [place] Hemoglobin 10.0 LAB WHCT 39.0-51.0 % Low [place] Hematocrit 32.9 LAB WMCV 80.0-100.0 fL [place] MCV 98.5 LAB WMCH 26.0-34.0 pg [place] MCH 29.9 LAB WMCHC 30.5-36.0 g/dL Low [place] MCHC 30.4 LAB WRDW 11.5-15.0 % [place] RDW 14.4 LAB WPLT 150-400 k/uL [place] Platelet Cnt 103 LAB WMPV 9.0-12.7 fL [place] MPV 11.8 Result Comment: Test performed at: [facility], [address] [place] [address]. LAB ABGRAN 1.45-7.50 k/uL Absol Gran 2.83 Count PROGRESS Observed: 01/30/2018 Status: COMPLETED Source: [place] 10:57 AM [facility] REPOSITORY HNO ID: [id number] Author: Rah Perez Service: (none) Author Type: [...] No jaundice or rash. No petechiae. NEUROLOGIC: assembler deck and hull II-XII are grossly intact. No focal motor weakness. MUSCULOSKELETAL: No muscle wasting. ASSESSMENT/PLAN: (D64.9) Anemia, unspecified type (primary encounter diagnosis) (N18.3) CKD (chronic kidney disease) stage 3, GFR 30-59 ml/min Assessment: -Tolerating and benefiting well from Aranesp. Has only required 2 injections in last 6 months. -Maintaining appropriate iron levels. Plan: -Will continue every other week CBC/possible Aranesp. Rah Perez, DO [place] ABS GR + CBC Collected: 01/30/2018 Status: F Source: [place] 10:38 AM [facility] REPOSITORY TYPE CODE TESTS RESULT OUT OF REFERENCE UNITS RANGE LAB WWBC 3.70-11.00 k/uL [place] WBC 6.30 LAB WRBC 4.20-6.00 m/uL Low [place] RBC 3.55 LAB WHGB 13.0-17.0 g/dL Low [place] Hemoglobin 10.5 LAB WHCT 39.0-51.0 % Low [place] Hematocrit 34.9 LAB WMCV 80.0-100.0 fL [place] MCV 98.3 LAB WMCH 26.0-34.0 pg [place] MCH 29.6 LAB WMCHC 30.5-36.0 g/dL Low [place] MCHC 30.1 LAB WRDW 11.5-15.0 % [place] RDW 14.6 LAB WPLT 150-400 k/uL [place] Platelet Cnt 195 LAB WMPV 9.0-12.7 fL [place] MPV 10.0 Result Comment: Test performed at: [facility], [address] [place] [address]. LAB ABGRAN 1.45-7.50 k/uL Absol Gran 5.23 Count [place] ISTAT BMP Collected: 01/30/2018 Status: F Source: [place] 10:38 AM [facility] REPOSITORY TYPE CODE TESTS RESULT OUT OF [...] GFR. CNOVSP Observed: 01/30/2018 Status: COMPLETED Source: [place] 10:30 AM [facility] REPOSITORY Visit (SP) Office (HEMASIYA) DOUG CAST ([id number]) 1935 M [facility] Date Time Provider Department 01/30/18 10:30 AM RAH PEREZ During your visit today, we recorded the following information about you: Julisa Tran LPN, LPN 01/30/2018 10:59 AM Signed Est pt, discuss [...] No jaundice or rash. No petechiae. NEUROLOGIC: assembler deck and hull II-XII are grossly intact. No focal motor [...] Rah Perez DO Referring Provider: RAH PEREZ [[id number]] Allergies As of Date: 01/30/2018 (No Known [...] (moder*INVALID FOR* Visit Notes: >> Julisa Paulson (Paste Mixer) Marc MARIA ISABEL SunJan 30, 2018 10:49 AM Status: Signed Est pt, discuss recent lab results 6 month f/u Julisa TranMARIA ISABEL Encounter Status:Closed by RAH PEREZ DO on 01/30/18 PREALBUMIN Collected: 01/25/2018 Status: F Source: [place] 12:40 PM [facility] REPOSITORY TYPE CODE TESTS RESULT OUT OF REFERENCE UNITS RANGE LAB L506.0500 20.0-40.0 mg/dL Low PREALBUMIN 7.0 Performed By: #### L506.0500 #### [facility] [address] [place], [place], [id number] CBC W/DIFF, AUTOMATED Collected: 01/25/2018 Status: F Source: [place] 12:40 PM [facility] REPOSITORY TYPE CODE TESTS RESULT OUT OF [...] LYMPHOPENIA NOTED Performed By: #### L100.0100 #### [facility] [address] [place], [address] WOUND CTR HISTORY Observed: 01/25/2018 Status: F Source: [place] AND PHYSICAL 11:51 AM [facility] REPOSITORY [facility] [address] [place] [address] Wound Ctr History AND Physical 01/25/18 1141 MR#: [id number] Acct: [id number] Name: DOUG CAST Rep #: [id number] : 1935 82 From: Tena Staples [employer] PCP: Vijay Mason Status: REG RCR Y [...] Date Recorded By Document 01/25/18 10:11 DV [id number] 01/25/18 10:58 DV Wound Center Nurse 1 [Ulcer Assessment] #5 Right Medial Ankle -Combined with other wound No -Current Size (cm) - Length 3.0 WC - Nurse 2 - General Ulcer CM Notes Start: 01/25/18 09:27 Freq: Status: Active Protocol: Activity Type Activity Date Activity User E-Sign Co-Sign Detail Recorded Client Recorded Date Recorded By Document 01/25/18 11:25 MW [id number] 01/25/18 11:33 MW Wound Center Nurse 2 [...] Date Recorded By Document 01/25/18 11:25 MW [id number] 01/25/18 11:33 MW Wound Center Nurse 2 [...] Source: MARK CULTURE, DEEP WOUND 11:30 AM [facility] REPOSITORY Comments: LLE ULCER Gram Stain Gram [...] <=0.5 S (NF) indicates non-formulary drug at [facility]. Approval by Infectious Disease Specialist required before non-formulary drugs may be ordered and/or dispensed. * CLSI guidelines does not recommend testing of cephalosporins. This interpretation is deduced from Beta-lactam/penicillin results. Cult, Anaerobic No anaerobic bacteria isolated. Performed By: #### [id number] #### [facility] [address] [place], [address] [place] ABS GR + CBC Collected: 01/18/2018 Status: F Source: [place] 11:25 AM [facility] REPOSITORY TYPE CODE TESTS RESULT OUT OF REFERENCE UNITS RANGE LAB WWBC 3.70-11.00 k/uL [place] WBC 5.46 LAB WRBC 4.20-6.00 m/uL Low [place] RBC 3.35 LAB WHGB 13.0-17.0 g/dL Low [place] Hemoglobin 9.9 LAB WHCT 39.0-51.0 % Low [place] Hematocrit 32.6 LAB WMCV 80.0-100.0 fL [place] MCV 97.3 LAB WMCH 26.0-34.0 pg [place] MCH 29.6 LAB WMCHC 30.5-36.0 g/dL Low [place] MCHC 30.4 LAB WRDW 11.5-15.0 % [place] RDW 13.6 LAB WPLT 150-400 k/uL [place] Platelet Cnt 181 LAB WMPV 9.0-12.7 fL [place] MPV 10.3 Result Comment: Test performed at: [facility], [address] [place] [address]. LAB ABGRAN 1.45-7.50 k/uL Absol Gran 4.36 Count FERRITIN Collected: 01/18/2018 Status: F Source: [place] 11:25 [facility] REPOSITORY TYPE CODE TESTS RESULT OUT OF REFERENCE UNITS RANGE LAB FERR 30.3-565.7 ng/mL Ferritin 463.0 Performed By: #### FERR, IRON #### [facility] [address] [place], [place] [address] IRON AND TIBC Collected: 01/18/2018 Status: F Source: [place] 11:25 AM [facility] REPOSITORY TYPE CODE TESTS RESULT OUT OF REFERENCE UNITS RANGE LAB IRN 41-186 ug/dL Iron 55 LAB TIBC 232-386 ug/dL Low TIBC 159 LAB SAT 15-57 % Transferrin Saturatn 35 Performed By: #### FERR, IRON #### [facility] [address] [place], [place] [address] MARK ABS GR + CBC Collected: 01/02/2018 Status: F Source: [place] 10:44 AM [facility] REPOSITORY TYPE CODE TESTS RESULT OUT OF REFERENCE UNITS RANGE LAB WWBC 3.70-11.00 k/uL Mark WBC 5.32 LAB WRBC 4.20-6.00 m/uL Low [place] RBC 3.58 LAB WHGB 13.0-17.0 g/dL Low Mark Hemoglobin 10.6 LAB WHCT 39.0-51.0 % Low [place] Hematocrit 34.8 LAB WMCV 80.0-100.0 fL [place] MCV 97.2 LAB WMCH 26.0-34.0 pg Mark MCH 29.6 LAB WMCHC 30.5-36.0 g/dL [place] MCHC 30.5 LAB WRDW 11.5-15.0 % [place] RDW 13.6 LAB WPLT 150-400 k/uL Mark Platelet Cnt 151 LAB WMPV 9.0-12.7 fL Mark MPV 10.5 Result Comment: Test performed at: [address] [place] [address]. LAB ABGRAN 1.45-7.50 k/uL Absol Gran 4.35 Count MARK ABS GR + CBC Collected: 12/19/2017 Status: F Source: [place] 10:27 AM [facility] REPOSITORY TYPE CODE TESTS RESULT OUT OF REFERENCE UNITS RANGE LAB WWBC 3.70-11.00 k/uL [place] WBC 5.03 LAB WRBC 4.20-6.00 m/uL Low Mark RBC 3.58 LAB WHGB 13.0-17.0 g/dL Low Mark Hemoglobin 10.7 LAB WHCT 39.0-51.0 % Low Mark Hematocrit 35.2 LAB WMCV 80.0-100.0 fL [place] MCV 98.3 LAB WMCH 26.0-34.0 pg Mark MCH 29.9 LAB WMCHC 30.5-36.0 g/dL Low [place] MCHC 30.4 LAB WRDW 11.5-15.0 % Mark RDW 14.0 LAB WPLT 150-400 k/uL Low [place] Platelet Cnt 144 LAB WMPV 9.0-12.7 fL [place] MPV 10.8 Result Comment: Test performed at: [facility], [address] [place] [address]. LAB ABGRAN 1.45-7.50 k/uL Absol Gran 3.92 Count MARK ABS GR + CBC Collected: 11/21/2017 Status: F Source: [place] 10:53 AM [facility] REPOSITORY TYPE CODE TESTS RESULT OUT OF REFERENCE UNITS RANGE LAB WWBC 3.70-11.00 k/uL [place] WBC 5.01 LAB WRBC 4.20-6.00 m/uL Low [place] RBC 3.43 LAB WHGB 13.0-17.0 g/dL Low [place] Hemoglobin 10.3 LAB WHCT 39.0-51.0 % Low [place] Hematocrit 33.3 LAB WMCV 80.0-100.0 fL [place] MCV 97.1 LAB WMCH 26.0-34.0 pg [place] MCH 30.0 LAB WMCHC 30.5-36.0 g/dL Mark MCHC 30.9 LAB WRDW 11.5-15.0 % Mark RDW 13.7 LAB WPLT 150-400 k/uL Low [place] Platelet Cnt 129 LAB WMPV 9.0-12.7 fL [place] MPV 9.9 Result Comment: Test performed at: [facility], [address] [place] [address]. LAB ABGRAN 1.45-7.50 k/uL Absol Gran 3.87 Count HOSP Observed: 11/21/2017 Status: COMPLETED Source: [place] 10:30 AM [facility] REPOSITORY Infusion Center (HEMAWS) DOUG CAST ([id number]) 1935 [facility] Date Time Provider Department 11/21/17 10:30 AM INJECTION [facility] WSTR HEMAWS During your visit today, we recorded the following information about you: Sheila Moctezuma LPN 11/21/2017 11:14 AM Signed Injection deferred, parameters not met. Hgb 10.3. Sheila Moctezuma LPN Referring Provider: RAH PEREZ [[id number]] Allergies As of Date: 11/21/2017 (No Known [...] Status:Closed by SHEILA MOCTEZUMA LPN on 11/21/17 ALLERGIES ALLERGIES DATE TYPE / CODE NAME / CODE REACTION SEVERITY SOURCE 10/13/2018 Drug No Known Unknown [facility] Allergy/416 Allergies/L19074 [facility] 597016(SNOM 0388(RXNORM) Repository ED CT) /[id number] NO KNOWN [facility] 6(SNOMED ALLERGIES [facility]) Repository Drug NO KNOWN [facility] Class/57336 ALLERGIES Main [place] 1003(SNOMED Repository CT) ENCOUNTERS ENCOUNTERS ADMIT/DISCHARGE ACCOUNT NUMBER ADMITTING ENCOUNTER LOCATION SOURCE CLASS 10/31/2018 [id number] Ambulatory BMSBuilding: [place] BMS.[facility] Repository 10/13/2018/10/16/20 [id number] [place], [place] Inpatient Mark [place] 18 Encounter [facility] ding:PCURoom Repository : [id number]: 1 10/13/2018 [id number] [place] Ambulatory BMSBuilding: [place] BMS.[facility] Repository 10/13/2018 [id number] [place] Ambulatory BMSBuilding: Mark BMS.[facility] Repository 10/13/2018 [id number] [place] Ambulatory BMSBuilding: [place] BMS.[facility] Repository 10/13/2018 [id number] [place] Ambulatory BMSBuilding: [place] BMS.[facility] Repository 10/12/2018/10/13/20 [id number] GeraChristiano Chi Inpatient Mark [place] 18 Encounter [facility] ding:TCURoom Repository : [id number]: 1 10/08/2018/10/12/20 [id number] Sementi, Inpatient [place] Mark 18 [place] Encounter [facility] ding:LZ9Xufp Repository : WF132Qec: 1 10/08/2018 [id number] Sementi, Ambulatory BMSBuilding: Mark Gail BMS.[facility] Repository 10/08/2018 [id number] Sementi, Ambulatory BMSBuilding: Amrk Gail BMS.[facility] Repository 10/08/2018 [id number] Sementi, Ambulatory BMSBuilding: [place] Gail BMS.[facility] Repository 10/08/2018 [id number] Sementi, Ambulatory BMSBuilding: [place] Gail BMS.[facility] Repository 10/08/2018 [id number] Sementi, Ambulatory BMSBuilding: [place] Gail BMS.[facility] Repository 10/08/2018 [id number] Ambulatory [facility] ding:OLS.AVE Repository B 10/07/2018 [id number] Ambulatory [facility] ding:OLS.AVE Repository B 10/05/2018 [id number] Ambulatory [facility] ding:OLS.AVE Repository B 09/29/2018 [id number] Agyepong, Ambulatory BMSBuilding: Mark Chase BMS.[facility] Repository 09/29/2018 [id number] Agyepong, Ambulatory BMSBuilding: Mark Chase BMS.[facility] Repository 09/29/2018 [id number] Agyepong, Ambulatory BMSBuilding: Mark Chase BMS.[facility] Repository 09/29/2018 [id number] Agyepong, Ambulatory BMSBuilding: Mark Chase BMS.[facility] Repository 09/29/2018 [id number] Agyepong, Ambulatory BMSBuilding: [place] Chase BMS.[facility] Repository 09/29/2018 [id number] Agyepong, Ambulatory BMSBuilding: Mark Chase BMS.[facility] Repository 09/29/2018 [id number] Agyepong, Ambulatory BMSBuilding: Mark Chase BMS.[facility] Repository 09/29/2018/10/02/20 [id number] Agyepong, Inpatient [place] 18 [facility] ding:PCURoom Repository : [id number]: 1 09/23/2018 [id number] Ambulatory [facility] ding:BFHLAB Repository 09/18/2018/09/18/20 [id number] Ambulatory [address] Repository 08/19/2018/09/17/20 [id number] Christiano Boss Chi Inpatient [address] ding:TCURoom Repository : OXB08Ury: 1 08/14/2018 [id number] Agyepong, Ambulatory BMSBuilding: [place] Chase BMS.[facility] Repository 08/14/2018 [id number] Agyepong, Ambulatory BMSBuilding: [place] Chase BMS.[facility] Repository 08/14/2018 [id number] Agyepong, Ambulatory BMSBuilding: [place] Chase BMS.[facility] Repository 08/14/2018/08/19/20 [id number] Agyepong, Inpatient [place] Mark 18 [facility] ding:PCURoom Repository : [id number]: 1 08/14/2018 [id number] Agyepong, Ambulatory BMSBuilding: Mark Chase BMS.[facility] Repository 08/14/2018 [id number] Agyepong, Ambulatory BMSBuilding: Mark Chase BMS.[facility] Repository 08/14/2018 [id number] Agyepong, Ambulatory BMSBuilding: Mark Chase BMS.[facility] Repository 07/31/2018/08/01/20 [id number] Ambulatory [address] [place] Repository 07/31/2018/07/31/20 [id number] Ambulatory [address] [place] Repository 07/31/2018/08/15/20 [id number] Ambulatory [address] [place] Repository 07/17/2018/07/18/20 [id number] Ambulatory [place] 18 [facility] [place] Repository 07/17/2018/07/18/20 [id number] Ambulatory [place] 18 [facility] [place] Repository 07/03/2018/07/03/20 [id number] Ambulatory [facility] [place] Repository 07/03/2018/07/03/20 [id number] Ambulatory [facility] [place] Repository 06/19/2018/06/19/20 [id number] Ambulatory [facility] [place] Repository 06/19/2018/06/19/20 [id number] Ambulatory [facility] [place] Repository 06/05/2018/06/05/20 [id number] Ambulatory [facility] [place] Repository 06/05/2018/06/06/20 [id number] Ambulatory [facility] [place] Repository 05/22/2018/05/23/20 [id number] Ambulatory [facility] [place] Repository 05/22/2018/05/22/20 [id number] Ambulatory [place] 18 [facility] [place] Repository 05/17/2018/05/17/20 [id number] Ambulatory [address] Other [place] Repository 05/17/2018/05/17/20 [id number] Ambulatory [address] MEDICAL Repository CENTERBuildi ng:AGWM 05/17/2018 [id number] Ambulatory [facility] MEDICAL Repository CENTERBuildi ng:AGWM 05/08/2018/05/09/20 [id number] Ambulatory [address] [place] Repository 05/08/2018/05/08/20 [id number] Ambulatory [address] [place] Repository 05/08/2018 [id number] Ambulatory [facility] ding:WC Repository 05/07/2018 [id number] Ambulatory [facility] ding:CVS Repository 04/26/2018/04/27/20 [id number] Ambulatory [address] ding:WC Repository 04/24/2018/04/24/20 [id number] Ambulatory [address] [place] Repository 04/24/2018/04/25/20 [id number] Ambulatory [address] [place] Repository 04/10/2018/04/11/20 [id number] Ambulatory [address] [place] Repository 04/10/2018/04/10/20 [id number] Ambulatory [address] [place] Repository 04/05/2018 [id number] Ambulatory [facility] ding:LABSPEC Repository 03/27/2018/03/27/20 [id number] Ambulatory [address] [place] Repository 03/27/2018/03/27/20 [id number] Ambulatory [address] [place] Repository 03/22/2018/03/28/20 [id number] Ambulatory [place] ding:WC Repository 03/13/2018/03/14/20 [id number] Ambulatory [address] [place] Repository 03/13/2018/03/13/20 [id number] Ambulatory [address] [place] Repository 03/04/2018 [id number] Ambulatory [facility] ding:LAB.FUT Repository URE 03/01/2018 [id number] [facility]BF[facility] Repository 02/27/2018/02/29/20 [id number] Ambulatory [place] [place] Repository 02/27/2018/02/29/20 [id number] Ambulatory [address] [place] Repository 02/15/2018/02/26/20 [id number] Ambulatory Mark [place] ding:WC Repository 02/13/2018/02/14/20 [id number] Ambulatory [address] [place] Repository 02/13/2018/02/14/20 [id number] Ambulatory [address] [place] Repository 01/30/2018/02/01/20 [id number] Ambulatory [place] 18 [facility] [place] Repository 01/30/2018/01/31/20 [id number] Ambulatory [place] [place] Repository 01/30/2018/02/01/20 [id number] Ambulatory [address] [place] Repository 01/25/2018/01/27/20 [id number] Ambulatory [place] ding:WC Repository 01/18/2018/01/19/20 [id number] Ambulatory [facility] [place] Repository 01/18/2018/01/22/20 [id number] Ambulatory [facility] [place] Repository 01/02/2018/01/04/20 [id number] Ambulatory [facility] [place] Repository 01/02/2018/01/03/20 [id number] Ambulatory [facility] [place] Repository 12/19/2017/12/20/19 [id number] Ambulatory [facility] [place] Repository 12/19/2017/12/19/19 [id number] Ambulatory [facility] [place] Repository 11/21/2017/11/21/19 [id number] Ambulatory [facility] [place] Repository 11/21/2017/11/22/19 [id number] Ambulatory [facility] [place] Repository PAYERS PAYERS ENCOUNTER GUARANTOR PAYER SUBSCRIBER SOURCE 10/31/2018 DOUG Flores [id number] [place] Insurance:MEDICARE VASASDOB: [facility] PART A BPolicy Number: [id number], [place] [id number] Repository 02150Eod: (330) Date:2018-10-31 [phone] () 10/31/2018 Secondary DOUG P Mark Insurance:HUMANA VASASDOB: [facility] [id number] Hospital Number: Repository [id number] Date:[id number] [address]XU: 10/31/2018 Tertiary NOT GIVENUNK [place] Insurance:SELF PAY [facility] Hospital Number: Effective Repository Date:2018-10-31 10/13/2018 DOUG P Primary DOUG P [place] [id number] [place] Insurance:MEDICARE VASASDOB: Community [place] PART A BPolicy Number: [id number], [place] [id number] Repository [address]Eri: (330) Date:2018-10-13 [phone] () 10/13/2018 Secondary DOUG P Mark Insurance:HUMANA VASASDOB: [facility] [id number] Hospital Number: Repository [id number] Date:9374-60-63YY[address] [address]DN: 10/13/2018 Tertiary NOT GIVENUNK [place] Insurance:SELF PAY [facility] Hospital Number: Effective Repository Date:2018-10-13 10/13/2018 DOUG P Primary DOUG P Mark [id number] [place] Insurance:MEDICARE VASASDOB: Community [place] PART A BPolicy Number: [id number], [place] [id number] Repository [address]Ysc: (330) Date:2018-10-13 [phone] () 10/13/2018 Secondary DOUG P Mark Insurance:HUMANA VASASDOB: [facility] [id number] Hospital Number: Repository [id number] Date:1337-42-38SF [address] [address]UQ: 10/13/2018 Tertiary NOT GIVENUNK Mark Insurance:SELF PAY [facility] Hospital Number: Effective Repository Date:2018-10-13 10/13/2018 DOUG P Primary DOUG P [place] [id number] [place] Insurance:MEDICARE VASASDOB: Community [place] PART A BPolicy Number: [id number], [place] [id number] Repository [address]Amo: (330) Date:2018-10-13 [phone] () 10/13/2018 Secondary DOUG P [place] Insurance:HUMANA [facility]ASASDOB: [facility] [id number] Hospital Number: Repository [id number] Date:5553-92-99EL [address] [address]ZR: 10/13/2018 Tertiary NOT GIVENUNK [place] Insurance:SELF PAY [facility] Hospital Number: Effective Repository Date:2018-10-13 10/13/2018 DOUG P Primary DOUG P [place] [id number] [place] Insurance:MEDICARE VASASDOB: [facility] PART A BPolicy Number: [id number], [place] [id number] Repository [address]Rxi: 330) Date:2018-10-13 [phone] () 10/13/2018 Secondary DOUG P Mark Insurance:HUMANA VASASDOB: [facility] [id number] Hospital Number: Repository [id number] Date:8668-88-73WK [address] [address]UT: 10/13/2018 Tertiary NOT GIVENUNK [place] Insurance:SELF PAY [facility] Hospital Number: Effective Repository Date:2018-10-13 10/13/2018 DOUG P Primary DOUG P Mark [id number] [place] Insurance:LIFECARE [facility]DOB[facility] Number: [id number], [place] [id number] Repository [address]Iwg: (330) Date:2018-10-16 [phone] () 10/13/2018 Secondary DOUG P [place] Insurance:MEDICARE VASASDOB: Community PART A BPolicy Number: [id number] Hospital [id number] Repository Date:2018-10-13 10/13/2018 Tertiary DOUG P [place] Insurance:HUMANA VASASDOB: Community COMMERCIALPolicy [id number] Hospital Number: Repository [id number] Date:1587-48-41KU[address] [address]HX: 10/13/2018 Tertiary NOT GIVENUNK Mark Insurance:SELF PAY [facility] Number: Effective Repository Date:2018-10-13 10/12/2018 DOUG P Primary DOUG P [place] [id number] [place] Insurance:MEDICARE VASASDOB: [place] PART A BPolicy Number: [id number], [place] [id number] Repository [address]Kkk: (383) Date:2018-10-12 [phone] () 10/12/2018 Secondary DOUG P Mark Insurance:HUMANA VASASDOB: Community COMMERCIALPolicy [id number] Hospital Number: Repository [id number] Date:1952-81-74VH[address] [address]DB: 10/12/2018 Tertiary NOT GIVENUNK [place] Insurance:SELF PAY [facility] Number: Effective Repository Date:2018-10-12 10/08/2018 DOUG P Primary DOUG P Mark [id number] [place] Insurance:MEDICARE VASASDOB: [place] PART A BPolicy Number: [id number], [place] [id number] Repository [address]Nau: (692) Date:2018-10-08 [phone] () 10/08/2018 Secondary DOUG P [place] Insurance:HUMANA VASASDOB: Community COMMERCIALPolicy [id number] Hospital Number: Repository [id number] Date:7130-52-36HI[address] [address]WQ: 10/08/2018 Tertiary NOT GIVENUNK Mark Insurance:SELF PAY [facility] Number: Effective Repository Date:2018-10-08 10/08/2018 DOUG P Primary DOUG P [place] [id number] [place] Insurance:MEDICARE VASASDOB: [place] PART A BPolicy Number: [id number], [place] [id number] Repository [address]23[address]Mok: (388) Date:2018-10-080888 () 10/08/2018 Secondary DOUG P [place] Insurance:HUMANA VASASDOB: Community COMMERCIALPolicy [id number] Hospital Number: Repository [id number] Date:0772-52-13DJ[address] [address]KO: 10/08/2018 Tertiary NOT GIVENUNK [place] Insurance:SELF PAY [facility] Number: Effective Repository Date:2018-10-08 10/08/2018 DOUG P Primary DOUG P [place] [id number] [place] Insurance:MEDICARE VASASDOB: [place] PART A BPolicy Number: [id number], [place] [id number] Repository [address]Zpw: 330) Date:2018-10-087961 () 10/08/2018 Secondary DOUG P Mark Insurance:HUMANA VASASDOB: [facility] COMMERCIALPolicy [id number] Hospital Number: Repository [id number] Date:2993-01-07BW[address] [address]NG: 10/08/2018 Tertiary NOT GIVENUNK [place] Insurance:SELF PAY [facility] Number: Effective Repository Date:2018-10-08 10/08/2018 DOUG P Primary DOUG P Mark [id number] [place] Insurance:MEDICARE VASASDOB: [place] PART A BPolicy Number: [id number], [place] [id number] Repository 414[address]Xvi: (300) Date:2018-10-088738 () 10/08/2018 Secondary DOUG P Mark Insurance:HUMANA VASASDOB: [facility] [id number] Hospital Number: Repository [id number] Date:1202-04-04LK[address] [address]MN: 10/08/2018 Tertiary NOT GIVENUNK Mark Insurance:SELF PAY [facility] Number: Effective Repository Date:2018-10-08 10/08/2018 DOUG P Primary DOUG P Mark [id number] [place] Insurance:MEDICARE VASASDOB: [place] PART A BPolicy Number: [id number], [place] [id number] Repository [address]Vkn: (330) Date:2018-10-08 [phone] () 10/08/2018 Secondary DOUG P [place] Insurance:HUMANA VASASDOB: Community COMMERCIALPolicy [id number] Hospital Number: Repository [id number] Date:8514-35-25TV [address] [place] [address]NL: 10/08/2018 Tertiary NOT GIVENUNK [place] Insurance:SELF PAY [facility] Hospital Number: Effective Repository Date:2018-10-08 10/08/2018 DOUG P Primary DOUG P [place] [id number] [place] Insurance:MEDICARE VASASDOB: [place] PART A BPolicy Number: [id number], [place] [id number] Repository [address]Hnv: (053) Date:2018-10-08 [phone] () 10/08/2018 Secondary DOUG P [place] Insurance:HUMANA VASASDOB: [facility] [id number] Hospital Number: Repository [id number] Date:6203-03-45SA [address] [place] [address]FW: 10/08/2018 Tertiary NOT GIVENUNK [place] Insurance:SELF PAY [facility] Number: Effective Repository Date:2018-10-08 10/08/2018 DOUG P Primary Insurance:SELF NOT GIVENUNK Mark [id number] [place] [facility] [place]: [place] Date:2018-10-08 Repository [address]Ahf: (HP) 10/07/2018 DOUG P Primary Insurance:SELF NOT GIVENUNK Mark [id number] [place] PAY [facility] Number: Effective [place] Date:2018-10-07 Repository 36314Dgl: () 10/05/2018 DOUG P Primary Insurance:SELF NOT GIVENUNK Mark [id number] [place] PAY [facility] Number: Effective [place] Date:2018-10-05 Repository 12363Gxl: () 09/29/2018 DOUG P Primary DOUG P Mark [id number] [place] Insurance:MEDICARE VASASDOB: [place] PART A BPolicy Number: [id number], [place] [id number] Repository 980[address]Qzx: (099) Date:2018-09-28 [phone] () 09/29/2018 Secondary DOUG P [place] Insurance:HUMANA [facility]ASDOB: [facility] [id number] Hospital Number: Repository [id number] Date:9490-90-00UW[address] [address]LL: 09/29/2018 Tertiary NOT GIVENUNK [place] Insurance:SELF PAY [facility] Number: Effective Repository Date:2018-09-29 09/29/2018 DOUG P Primary DOUG P [place] [id number] [place] Insurance:MEDICARE VASASDOB: [place] PART A BPolicy Number: [id number], [place] [id number] Repository [address]Yml: (004) Date:2018-09-28 [phone] () 09/29/2018 Secondary DOUG P Mark Insurance:HUMANA VASASDOB: [facility] [id number] Hospital Number: Repository [id number] Date:3990-27-75EX [address] [place] [address]RW: 09/29/2018 Tertiary NOT GIVENUNK Mark Insurance:SELF PAY [facility] Number: Effective Repository Date:2018-09-29 09/29/2018 DOUG P Primary DOUG P [place] [id number] [place] Insurance:MEDICARE VASASDOB: [place] PART A BPolicy Number: [id number], [place] [id number] Repository [address]Adl: (244) Date:2018-09-28 [phone] () 09/29/2018 Secondary DOUG P Mark Insurance:HUMANA [facility]ASASDOB: [facility] [id number] Hospital Number: Repository [id number] Date:4106-23-92XT [address] [address]MN: 09/29/2018 Tertiary NOT GIVENUNK [place] Insurance:SELF PAY [facility] Number: Effective Repository Date:2018-09-29 09/29/2018 DOUG P Primary DOUG P Mark [id number] [place] Insurance:MEDICARE VASASDOB: [facility] PART A BPolicy Number: [id number], [place] [id number] Repository 88284Tju: 330) Date:2018-09-28 [id number] () 09/29/2018 Secondary DOUG P Aquilla Insurance:HUMANA VASASDOB: [facility] [id number] Hospital Number: Repository [id number] Date:5985-07-02KQ [address] [address]LT: 09/29/2018 Tertiary NOT GIVENUNK Mark Insurance:SELF PAY [facility] Hospital Number: Effective Repository Date:2018-09-29 09/29/2018 DOUG P Primary DOUG P Mark [id number] HAPPY Insurance:MEDICARE VASASDOB: [facility] PART A BPolicy Number: [id number] [id number] Repository 69593Pll: (469) Date:2018-09-28 [phone] () 09/29/2018 Secondary DOUG P Aquilla Insurance:HUMANA VASASDOB: [facility] [id number] Hospital Number: Repository [id number] Date:3335-03-09MH [address] [address]LM: 09/29/2018 Tertiary NOT GIVENUNK Aquilla Insurance:SELF PAY [facility] Number: Effective Repository Date:2018-09-29 09/29/2018 DOUG P Primary DOUG P Aquilla [id number] HAPPY Insurance:MEDICARE VASASDOB: [facility] [place] PART A BPolicy Number: [id number], [place] [id number] Repository 562[address]Byr: (330) Date:2018-09-283812 () 09/29/2018 Secondary DOUG P Mark Insurance:HUMANA VASASDOB: [facility] [id number] Hospital Number: Repository [id number] Date:3470-48-23YH [address] [place] [address]ZZ: 09/29/2018 Tertiary NOT GIVENUNK Aqu[place] Insurance:SELF PAY [facility] Number: Effective Repository Date:2018-09-29 09/29/2018 DOUG P Primary DOUG P Aquilla [id number] [place] Insurance:MEDICARE VASASDOB: [facility] PART A BPolicy Number: [id number], [place] [id number] Repository [address]397Uej: 330) Date:2018-09-284568 () 09/29/2018 Secondary DOUG P Aquilla Insurance:HUMANA VASASDOB: [facility] [id number] Hospital Number: Repository [id number] Date:9086-33-24DU [address] [place] [address]HZ: 09/29/2018 Tertiary NOT GIVENUNK Aquilla Insurance:SELF PAY [facility] Number: Effective Repository Date:2018-09-29 09/29/2018 DOUG P Primary DOUG P Aquilla [id number] [place] Insurance:MEDICARE VASASDOB: [facility] [place] PART A BPolicy Number: [id number], [place] [id number] Repository 90932Mqx: (330) Date:2018-09-287766 () 09/29/2018 Secondary DOUG P Aquilla Insurance:HUMANA VASASDOB: [facility] [id number] Hospital Number: Repository [id number] Date:7076-44-72JY [address] [address]WI: 09/29/2018 Tertiary NOT GIVENUNK [place] Insurance:SELF PAY [facility] Effective Repository Date:2018-09-28 09/23/2018 DOUG P Primary DOUG P Mark [id number] [place] Insurance:MEDICARE VASASDOB: [facility] [place] PART A BPolicy Number: [id number], [place] [id number] Repository 98631Xjg: (005) Date:2018-09-23 [phone] () 09/23/2018 Secondary DOUG P Aquilla Insurance:HUMANA VASASDOB: [facility] COMMERCIALPolicy [id number] Hospital Number: Repository [id number] Date:9976-47-74LC [address] [address]YI: 09/23/2018 Tertiary NOT GIVENUNK Mark Insurance:SELF PAY [facility] Number: Effective Repository Date:2018-09-23 08/19/2018 DOUG P Primary DOUG P Aquilla [id number] [place] Insurance:MEDICARE VASASDOB: [facility] [place] PART A BPolicy Number: [id number], [place] [id number] Repository 04697Vey: (568) Date:2018-08-19 [phone] () 08/19/2018 Secondary DOUG P Mark Insurance:HUMANA [facility]ASASDOB[facility] [id number] Hospital Number: Repository [id number] Date:6297-27-70EC [address] [address]OC: 08/19/2018 Tertiary NOT GIVENUNK Mark Insurance:SELF PAY [facility] Number: Effective Repository Date:2018-08-19 08/14/2018 Doug P Primary Doug P Mark [id number] HAPPY Insurance:MEDICARE VasasDOB: [facility] [place] PART A BPolicy Number: [id number], [place] [id number] Repository [address]Ohr: (825) Date:2018-08-14 [phone] (HP) 08/14/2018 Secondary Doug P Mark Insurance:HUMANA VasasDOB: Community COMMERCIALPolicy [id number] Hospital Number: Repository [id number] Date:3637-75-07WC[address] [address]NF: 08/14/2018 Tertiary NOT GIVENUNK [place] Insurance:SELF PAY [facility] Number: Effective Repository Date:2018-08-14 08/14/2018 DOUG P Primary DOUG P Mark [id number] [place]APP[place] Insurance:MEDICARE VASASDOB: [facility] [place] PART A BPolicy Number: [id number], [place] [id number] Repository 92[address]Ohp: (471) Date:2018-08-14 [phone] () 08/14/2018 Secondary DOUG P Mark Insurance:HUMANA VASASDOB: [facility] [id number] Hospital Number: Repository [id number] Date:8030-07-10FD[address] [address]UB: 08/14/2018 Tertiary NOT GIVENUNK Aqu[place] Insurance:SELF PAY [facility] Number: Effective Repository Date:2018-08-14 08/14/2018 Doug P Primary Doug P Aquilla [id number] [place]APP[place] Insurance:MEDICARE VasasDOB: [facility] [place] PART A BPolicy Number: [id number], [place] [id number] Repository 98520Ggt: (292) Date:2018-08-14 [phone] () 08/14/2018 Secondary Doug P Aquilla Insurance:HUMANA VasasDOB: [facility] COMMERCIALPolicy [id number] Hospital Number: Repository [id number] Date:5518-29-58YF[address] [address]CP: 08/14/2018 Tertiary NOT GIVENUNK [place] Insurance:SELF PAY [facility] Number: Effective Repository Date:2018-08-14 08/14/2018 Doug P Primary Doug P Aquilla [id number] [place] Insurance:MEDICARE VasasDOB: [facility] [place] PART A BPolicy Number: [id number], [place] [id number] Repository [address]77[address]Hjn: 330) Date:2018-08-142011 () 08/14/2018 Secondary Doug P Mark Insurance:HUMANA [facility]asDOB: [facility] [id number] Hospital Number: Repository [id number] Date:2338-45-32TF[address] [address]AT: 08/14/2018 Tertiary NOT GIVENUNK Mark Insurance:SELF PAY [facility] Number: Effective Repository Date:2018-08-14 08/14/2018 Doug P Primary Doug P Aquilla [id number] [place]APP[place] Insurance:MEDICARE VasasDOB: Community [place] PART A BPolicy Number: [id number], [place] [id number] Repository [address]27[address]Suw: 330) Date:2018-08-147342 () 08/14/2018 Secondary Doug P Mark Insurance:HUMANA VasasDOB: [facility] [id number] Hospital Number: Repository [id number] Date:9791-80-93AV[address] [address]NI: 08/14/2018 Tertiary NOT GIVENUNK Aqu[place] Insurance:SELF PAY [facility] Number: Effective Repository Date:2018-08-14 08/14/2018 Doug P Primary Doug P Aquilla [id number] HAPP[place] Insurance:MEDICARE VasasDOB: [facility] [place] PART A BPolicy Number: [id number], [place] [id number] Repository [address]Faf: 330) Date:2018-08-147515 () 08/14/2018 Secondary Doug P Aquilla Insurance:HUMANA VasasDOB: [facility] [id number] Hospital Number: Repository [id number] Date:1733-20-00RT [address] [address]ZI: 08/14/2018 Tertiary NOT GIVENUNK Mark Insurance:SELF PAY [facility] Number: Effective Repository Date:2018-08-14 08/14/2018 Doug P Primary Doug Flores [id number] HAPPY Insurance:MEDICARE VasasDOB: [facility] [place] PART A BPolicy Number: [id number] [facility] [place], [place] [id number] Repository 05003Ypy: (956) Date:2018-08-14 [phone] (HP) 08/14/2018 Secondary Doug Flores Insurance:HUMANA VasasDOB: [facility] [id number] Hospital Number: Repository [id number] Date:7866-35-42BM[address] [address]XS: 08/14/2018 Tertiary NOT GIVENUNK Aqu[place] Insurance:SELF PAY [facility] Number: Effective Repository Date:2018-08-14 05/17/2018 DOUG Primary DOUG Romero General VASASDOB: Insurance:MEDICARE A VASASDOB: [facility] AND BPolicy Number: [id number] Repository [place] [id number] [place], [place] Date: [address]Cof: (HP) 05/17/2018 Secondary DOUG Romero General Insurance:HUMANA VASASDOB: [facility] MEDICARE [id number] Repository SUPPLEMENTPolicy Number: [id number] Date: 05/17/2018 DOUG Primary DOUG Romero General VASASDOB: Insurance:MEDICARE A VASASDOB: [facility] AND BPolicy Number: [id number] Repository [place] [id number] [place], [place] Date: [address]Tww: (HP) 05/17/2018 Secondary DOUG Romero General Insurance:HUMANA VASASDOB: [facility] MEDICARE [id number] Repository SUPPLEMENTPolicy Number: [id number] Date: 05/08/2018 Doug P Primary Doug Flores [id number] Happy Insurance:MEDICARE VasasDOB: [facility] [place] PART A BPolicy Number: [id number], [place] [id number] Repository 81596Inj: 330) Date:2018-01-259530 () 05/08/2018 Secondary Doug P Mark Insurance:HUMANA VasasDOB: Community COMMERCIALPolicy [id number] Hospital Number: Repository [id number] Date:5656-23-39FI [address] [place] [address]ZG: 05/08/2018 Tertiary NOT GIVENUNK Aqu[place] Insurance:SELF PAY [facility] Hospital Number: Effective Repository Date:2018-04-28 05/07/2018 Doug P Primary Doug P Mark [id number] [place]APP[place] Insurance:MEDICARE VasasDOB: Community [place] PART A BPolicy Number: [id number], [place] [id number] Repository [address]Ndw: 330) Date:2018-04-226911 () 05/07/2018 Secondary Doug P Aquilla Insurance:HUMANA [facility]asDOB: [facility] [id number] Hospital Number: Repository [id number] Date:1323-30-54YA [address] [place] [address]XP: 05/07/2018 Tertiary NOT GIVENUNK Mark Insurance:SELF PAY [facility] Hospital Number: Effective Repository Date:2018-04-22 04/26/2018 Doug P Primary Doug P Mark [id number] Happy Insurance:MEDICARE VasasDOB: [facility] PART A BPolicy Number: [id number], [place] [id number] Repository [address]Reg: 330) Date:2018-01-25 [phone] () 04/26/2018 Secondary Doug P Mark Insurance:HUMANA VasasDOB: [facility] [id number] Hospital Number: Repository [id number] Date:4514-39-15EW [address] [place] [address]VM: 04/26/2018 Tertiary NOT GIVENUNK Mark Insurance:SELF PAY [facility] Hospital Number: Effective Repository Date:2018-03-29 04/05/2018 Doug P Primary Doug P Aquilla [id number] Happy Insurance:MEDICARE VasasDOB: [facility] [place] PART A BPolicy Number: [id number], [place] [id number] Repository 388[address]Mst: 330) Date:2018-04-05 [phone] (HP) 04/05/2018 Secondary Doug P Mark Insurance:HUMANA VasasDOB: Community COMMERCIALPolicy [id number] Hospital Number: Repository [id number] Date:5912-16-41HZ[address] [address]UW: 04/05/2018 Tertiary NOT GIVENUNK Mark Insurance:SELF PAY [facility] Hospital Number: Effective Repository Date:2018-04-05 03/22/2018 Doug P Primary Doug P Mark [id number] Happy Insurance:MEDICARE VasasDOB: [facility] [place] PART A BPolicy Number: [id number], [place] [id number] Repository 82547Hxq: Date:2018-01-25 ~33 0-4 (HP) 03/22/2018 Secondary Doug P Mark Insurance:HUMANA VasasDOB: [facility] [id number] Hospital Number: Repository [id number] Date:1947-65-04QX[address] [address]EX: 03/22/2018 Tertiary NOT GIVENUNK Mark Insurance:SELF PAY [facility] Hospital Number: Effective Repository Date:2018-02-26 03/04/2018 Doug P Primary Doug P Aquilla [id number] [place] Insurance:MEDICARE VasasDOB: [facility] [place] PART A BPolicy Number: [id number], [place] [id number] Repository 117[address]Gmg: Date:2018-03-04 ~33 0-4 (HP) 03/04/2018 Secondary Doug P Aquilla Insurance:HUMANA VasasDOB: Community COMMERCIALPolicy [id number] Hospital Number: Repository [id number] Date:0957-95-61MB[address] [address]YE: 03/04/2018 Tertiary NOT GIVENUNK Mark Insurance:SELF PAY [facility] Number: Effective Repository Date:2018-03-04 03/01/2018 Doug Peter Primary Doug Peter Aquilla [id number] [place] Insurance:MEDICARE VasasDOB: [facility] [place] PART A BPolicy Number: [id number], [place] [id number] Repository [address]19[address]Poy: Date:2018-03-01 ~33 0-4 (HP) 03/01/2018 Secondary Doug Peter Aqu[place] Insurance:HUMANA VasasDOB: [facility] [id number] Hospital Number: Repository [id number] Date:6824-41-08QR[address] [address]JY: 03/01/2018 Tertiary NOT GIVENUNK [place] Insurance:SELF PAY [facility] Number: Effective Repository Date:2018-03-01 02/15/2018 Doug Peter Primary Doug Peter Mark [id number] Happy Insurance:MEDICARE VasasDOB: [facility] [place] PART A BPolicy Number: [id number], [place] [id number] Repository [address]Ddl: Date:2018-01-25 ~33 0-4 (HP) 02/15/2018 Secondary Doug Peter Mark Insurance:HUMANA VasasDOB: [facility] [id number] Hospital Number: Repository [id number] Date:4617-73-84UA[address] [address]BI: 02/15/2018 Tertiary NOT GIVENUNK [place] Insurance:SELF PAY [facility] Number: Effective Repository Date:2018-01-27 01/25/2018 Doug Peter Primary Doug Peter [place] [id number] [place] Insurance:MEDICARE VasasDOB: [facility] [place] PART A BPolicy Number: [id number] [place], [place] [id number] Repository [address]Ukd: Date:2018-01-25 ~33 0-4 (HP) 01/25/2018 Secondary Doug P Mark Insurance:HUMANA VasasDOB: [facility] [id number] Hospital Number: Repository [id number] Date:0510-14-33[address]KHMQTFSBD, [place] [address]GN: 01/25/2018 Tertiary NOT GIVENUNK Mark Insurance:SELF PAY [facility] Hospital Number: Effective Repository Date:2018-01-25
== END 2018-10-12 13:55 | disposition skilled nursing facility (03) | DRG 371 ==
LOC: ED 18:17 → MS2 20:08
PROVIDERS: Internal Medicine Nephrology; Admitting Provider Internal Medicine; Emergency Provider Emergency Medicine; Family Provider Family Medicine; PCP Family Medicine; Visit Provider Hospitalist
DX: A04.72 Enterocolitis due to Clostridium difficile, not specified as recurrent (principal); J15.4 Pneumonia due to other streptococci; N17.9 Acute kidney failure, unspecified; E87.0 Hyperosmolality and hypernatremia; E87.6 Hypokalemia; I48.0 Paroxysmal atrial fibrillation; N18.3 Chronic kidney disease, stage 3 (moderate); I89.0 Lymphedema, not elsewhere classified; E78.5 Hyperlipidemia, unspecified; M10.9 Gout, unspecified; D63.1 Anemia in chronic kidney disease; N40.0 Benign prostatic hyperplasia without lower urinary tract symptoms; Z86.73 Personal history of transient ischemic attack (TIA), and cerebral infarction without residual deficits; Z79.01 Long term (current) use of anticoagulants; Z79.899 Other long term (current) drug therapy; I12.9 Hypertensive chronic kidney disease with stage 1 through stage 4 chronic kidney disease, or unspecified chronic kidney disease; K64.8 Other hemorrhoids; N20.0 Calculus of kidney
CPT/HCPCS: 36415; 71045; 74176; 80048; 80053; 81001; 82274; 82570; 83630; 83735; 84100; 84540; 85025; 85027; 87493; 87506; 94667; 94668; 97162; 97165; 97530; 97535; 99283; A4216

== ENCOUNTER 2018-10-12 14:00 | Inpatient (IN) | payer MEDICARE, OTHER, SELFPAY ==
--- NOTE | 2018-10-12 15:14 | NURSING ---
R' ARRIVED TO UNIT AT 1400 FROM [facility].
[2018-10-12 15:27] VITALS: BP 160/57; PULSE 54; RESP 18; TEMP 36.4; O2SAT 91
[2018-10-12 15:28] VITALS: BMI 25.6
[2018-10-12 15:33] VITALS: BMI 25.6
[2018-10-12 16:00] VITALS: BP 147/64; PULSE 60; RESP 16; TEMP 36.4; O2SAT 98
--- NOTE | 2018-10-12 16:28 | NURSING ---
ALL CARE PROVIDED IN ROOM T/O SHIFT D/T CONTACT ISOLATION D/T CDIF.
--- NOTE | 2018-10-12 17:28 | PCM.HP.STD ---
Problem List (1) Diarrhea Status: Acute (2) Clostridium difficile colitis Status: Acute (3) Blood in stool Status: Acute (4) Acute on chronic kidney failure Status: Acute (5) Hypernatremia Status: Acute (6) Hypokalemia Status: Acute (7) Atrial fibrillation with rapid ventricular response Status: Chronic (8) Calciphylaxis Status: Chronic (9) Coronary artery disease Status: Chronic (10) Cellulitis of leg Status: Chronic (11) Delirium Status: Acute (12) Healthcare associated bacterial pneumonia Status: Chronic (13) Sepsis Status: Chronic (14) Osteoarthritis Status: Chronic (15) BPH (benign prostatic hyperplasia) Status: Chronic (16) Nephrolithiasis Status: Chronic History of Present Illness Date of Admission: 10/12/18 Chief Complaint: Here for rehabilitation, strengthening, prior to disposition determination. The patient is a 83 year old Male with below past medical history presented to [facility] Emergency Department 10/08/2018 with abnormal labs. 10/08/2018 Chest X-ray showed right mid, right lower lung consolidation, pleural effusion. Recent admission for atrial fibrillation with rapid ventricular response, started anticoagulation. Readmission for pneumonia. Increasing weakness, Increasing lethargy. Increased WBC, Decreased Hemoglobin, Low potassium, Creatinine 2. Diarrhea, fecal incontinence. Stool trace positive blood. 10/08/2018 Admit to Hospital. Stool for C. Diff. Supplement potassium. Consult Nephrology. 10/09/2018 Dr. Meyer recommended same dose Lasix. Avoid ACEI/ARBS. 10/09/2018 Gentle IV fluids. Hydrocortisone rectal suppositories for Hemorrhoids. Iron, Procrit for anemia. 10/09/2018 CT abdomen/pelvis no contrast showed right kidney stone with hydronephrosis. Colitis, Large loculated right pleural effusion, moderate left pleural effusion. Bilateral lower lung consolidation. 10/10/2018 Oral Vancomycin for C. diff colitis. D5W for hypernatremia. Stop Amoxicillin for strep HCAP, has had adequate course of treatment. 10/10/2018 Dr. Hatch recommended observation, no surgical intervention, right kidney stone not obstructive. 10/11/2018 Creatinine, sodium improving with D5W. Diarrhea resolved with oral vancomycin. Potassium corrected. 10/12/2018 Admit to TCU with debility, here for rehabilitation, strengthening, prior to disposition determination. Past Medical History Past Medical History (Chronic Problems): Chronic Problems Atrial fibrillation with rapid ventricular response (Chronic) Calciphylaxis (Chronic) Coronary artery disease (Chronic) Cellulitis of leg (Chronic) Healthcare associated bacterial pneumonia (Chronic) Sepsis (Chronic) Osteoarthritis (Chronic) BPH (benign prostatic hyperplasia) (Chronic) Leg ulcer (Chronic) Lymphedema (Chronic) Pleural effusion, right (Chronic) Hypertension (Chronic) Stroke (Chronic) Hyperlipidemia (Chronic) Carotid artery disease (Chronic) Anemia of chronic kidney failure (Chronic) Lymphedema of lower extremity (Chronic) Nephrolithiasis (Chronic) Gout (Chronic) CKD (chronic kidney disease), stage III (Chronic) BPH (benign prostatic hyperplasia) (Chronic) Allergies No Known Allergies Allergy (Verified 10/08/18 17:01) Home Medications: Ambulatory Orders Medication Instructions Recorded Labetalol [Trandate (Beta Lily)] 200 mg PO BID 10/10/16 Aspirin E.C. [Ecotrin] 81 mg PO DAILY 08/14/18 Finasteride [Proscar] 5 mg PO DAILY 08/19/18 Acetaminophen [Tylenol Tablet] 650 mg PO Q6H PRN PRN tab 10/02/18 Albuterol Aerosols [Ventolin 2.5 mg INHALATION Q2H PRN PRN 10/02/18 Aerosols] vial.neb. Magnesium Hydroxide [Milk Of 30 ml PO DAILY PRN udc 10/02/18 Magnesia] Allopurinol [Zyloprim] 300 mg PO DAILY 10/08/18 Apixaban [Eliquis] 2.5 mg PO BID 10/08/18 Epoetin Royer [Procrit] 10,000 units SC Q14D 10/08/18 Ergocalciferol [Vitamin D] 50,000 unit PO BURGOS 10/08/18 Furosemide [Lasix] 40 mg PO DAILY 10/08/18 Guaifenesin [Mucinex] 1,200 mg PO BID 10/08/18 Iron Polysaccharide Complex 150 mg PO DAILYCM 10/08/18 [Ferrex 150] Nutritional Supplement [Morales - 1 packet PO BIDCM 10/08/18 ORANGE FLAVOR] Pravastatin [Pravachol] 40 mg PO QHS 10/08/18 Fluoxetine [Prozac] 20 mg PO DAILY 10/12/18 Vancomcyin 125mg/5mL PO Liquid 125 mg PO Q6 10/12/18 Surgical History: - - Bilateral carotid endarectomy Psychiatric History: No pertinent psych hx Lives: With Family - Most recently, at [facility] in [place]. Smoking Status: Never smoker Tobacco Use: Non-smoker Alcohol: None Drugs: None - *Family History Paternal Family History: Family History (Last Reviewed 10/08/18 @ 21:06 by hCuy Abrams DO) Mother Hyperthyroidism Father Diabetes Aortic aneurysm rupture History Items: Diabetes Maternal Family History: Family History (Last Reviewed 10/08/18 @ 21:06 by Chuy Abrams DO) Mother Hyperthyroidism Father Diabetes Aortic aneurysm rupture History Items: Heart Disease Review of Systems Constitutional: Denies: Chills, Fever, Weight Change HEENT: Denies: Head Aches, Sinus Congestion, Sinus Drainage Cardiovascular: Denies: Chest Pain, Palpitations Respiratory: Denies: Cough, Shortness of breath at rest, Sputum production Gastrointestinal: Denies: Abdominal Pain, Nausea, Vomiting Genitourinary: Denies: Dysuria Musculoskeletal: Denies: Joint Pain, Joint Tenderness Skin: Denies: Rash, Wounds Neurological: Denies: Numbness, Tingling, Focal weakness Psychiatric: Denies: Anxiety, Depression, Homicidal Ideations, Suicidal Ideations Hematologic/ Lymphatic: Denies: Easy Bruising, Easy Bleeding VTE Information - Inpt Only VTE Present on Admission: No VTE Mechan Device Prophylaxis: Knee High JEAN PAUL Hose VTE Pharm Prophylaxis ordered?: No Reason prophylaxis not ordered:: Treatment Not Indicated Patient Problems: Active and Suspected Problems Diarrhea (Acute) Clostridium difficile colitis (Acute) Blood in stool (Acute) Acute on chronic kidney failure (Acute) Hypernatremia (Acute) Hypokalemia (Acute) Delirium (Acute) - Physical Exam General: Alert, Oriented x3, Cooperative HEENT: Atraumatic, PERRLA, EOMI, Normocephalic Neck: Supple, No JVD, Negative Carotid Bruits Lungs: Clear to auscultation, Normal air movement Cardiovascular: Regular rate, No murmurs Abdomen: Bowel Sounds Present, Soft, Non Tender Extremities: Capillary Refill Less than 3 Seconds, Edema - 1+ pitting edema bilaterally. Skin: No rashes, No breakdown Musculoskeletal: No Tenderness to Palpation of Joints or Extremities Neurological: Cranial nerves II-XII grossly intact Psych/Mental Status: Normal Affect, Appropriate Vital Signs Temp Pulse Resp BP Pulse Ox 97.6 F L 60 16 147/64 H 98 1215/18 16:00 10/12/18 16:00 10/12/18 16:00 10/12/18 16:00 10/12/18 16:00 Oxygen Flow Rate (L/min) 2 Oxygen Delivery Method Nasal Cannula Weight: 78.653 kg Body Mass Index (BMI) 25.6 Finger Stick Blood Glucose 122 Assessment/Plan All Active Problems Diarrhea (Acute) Clostridium difficile colitis (Acute) Blood in stool (Acute) Acute on chronic kidney failure (Acute) Hypernatremia (Acute) Hypokalemia (Acute) Delirium (Acute) 83 year old male with below past medical history hospitalized for c. diff colitis, complicated by acute on chronic kidney failure, hypernatremia, hypokalemia, encephalopathy, admitted to TCU with debility, here for rehabilitation, strengthening, prior to disposition determination. Debility - PT/OT. Pain - Tylenol 1000MG Q8H PRN mild pain. Bowel - Miralax 17GM daily PRN, Senna/colace 1 tablet BID PRN, Dulcolax 10MG daily PRN. Pneumonia vaccination - Administer Prevnar 13 and/or Pneumovax 23 as necessary. DVT prophylaxis - Not necessary, already on Eliquis. Shortness of breath - Albuterol 2.5MG Q2H PRN. Gout - Allopurinol 300MG daily. Atrial Fibrillation - Labetalol 200MG BID, Eliquis 2.5MG BID. Nutrition - Ensure Enlive 120ML 4x/day, Morales 1 packet BID. Anemia - Ferrex 150MG daily, Procrit 10,000 units Q14 days. BPH - Finasteride 5MG daily. Depression - Fluoxetine 20MG daily. Edema - Lasix 40MG daily. Skin irritation - Calmoseptine TID bilateral buttocks, coccyx. Tinea Corporis - Nystatin powder BID groin. Hyperlipidemia - Pravastatin 40MG QHS, life expectancy short, consider stopping statin therapy. C. difficile colitis - Vancomycin 125MG Q6H thru 10/24/2018, relapse rate high, consider tapering or prophylaxis dose.
--- NOTE | 2018-10-12 17:37 | HP.PCM_ITS ---
Problem List (1) Diarrhea Status: Acute (2) Clostridium difficile colitis Status: Acute (3) Blood in stool Status: Acute (4) Acute on chronic kidney failure Status: Acute (5) Hypernatremia Status: Acute (6) Hypokalemia Status: Acute (7) Atrial fibrillation with rapid ventricular response Status: Chronic (8) Calciphylaxis Status: Chronic (9) Coronary artery disease Status: Chronic (10) Cellulitis of leg Status: Chronic (11) Delirium Status: Acute (12) Healthcare associated bacterial pneumonia Status: Chronic (13) Sepsis Status: Chronic (14) Osteoarthritis Status: Chronic (15) BPH (benign prostatic hyperplasia) Status: Chronic (16) Nephrolithiasis Status: Chronic History of Present Illness Date of Admission: 10/12/18 Chief Complaint: Here for rehabilitation, strengthening, prior to disposition determination. The patient is a 83 year old Male with below past medical history presented to [facility] Emergency Department 10/08/2018 with abnormal labs. 10/08/2018 Chest X-ray showed right mid, right lower lung consolidation, pleural effusion. Recent admission for atrial fibrillation with rapid ventricular response, started anticoagulation. Readmission for pneumonia. Increasing weakness, Increasing lethargy. Increased WBC, Decreased Hemoglobin, Low potassium, Creatinine 2. Diarrhea, fecal incontinence. Stool trace positive blood. 10/08/2018 Admit to Hospital. Stool for C. Diff. Supplement potassium. Consult Nephrology. 10/09/2018 Dr. Meyer recommended same dose Lasix. Avoid ACEI/ARBS. 10/09/2018 Gentle IV fluids. Hydrocortisone rectal suppositories for Hemorrhoids. Iron, Procrit for anemia. 10/09/2018 CT abdomen/pelvis no contrast showed right kidney stone with hydronephrosis. Colitis, Large loculated right pleural effusion, moderate left pleural effusion. Bilateral lower lung consolidation. 10/10/2018 Oral Vancomycin for C. diff colitis. D5W for hypernatremia. Stop Amoxicillin for strep HCAP, has had adequate course of treatment. 10/10/2018 Dr. Hatch recommended observation, no surgical intervention, right kidney stone not obstructive. 10/11/2018 Creatinine, sodium improving with D5W. Diarrhea resolved with oral vancomycin. Potassium corrected. 10/12/2018 Admit to TCU with debility, here for rehabilitation, strengthening, prior to disposition determination. Past Medical History Past Medical History (Chronic Problems): Chronic Problems Atrial fibrillation with rapid ventricular response (Chronic) Calciphylaxis (Chronic) Coronary artery disease (Chronic) Cellulitis of leg (Chronic) Healthcare associated bacterial pneumonia (Chronic) Sepsis (Chronic) Osteoarthritis (Chronic) BPH (benign prostatic hyperplasia) (Chronic) Leg ulcer (Chronic) Lymphedema (Chronic) Pleural effusion, right (Chronic) Hypertension (Chronic) Stroke (Chronic) Hyperlipidemia (Chronic) Carotid artery disease (Chronic) Anemia of chronic kidney failure (Chronic) Lymphedema of lower extremity (Chronic) Nephrolithiasis (Chronic) Gout (Chronic) CKD (chronic kidney disease), stage III (Chronic) BPH (benign prostatic hyperplasia) (Chronic) Allergies No Known Allergies Allergy (Verified 10/08/18 17:01) Home Medications: Ambulatory Orders Medication Instructions Recorded Labetalol [Trandate (Beta Lily)] 200 mg PO BID 10/10/16 Aspirin E.C. [Ecotrin] 81 mg PO DAILY 08/14/18 Finasteride [Proscar] 5 mg PO DAILY 08/19/18 Acetaminophen [Tylenol Tablet] 650 mg PO Q6H PRN PRN tab 10/02/18 Albuterol Aerosols [Ventolin 2.5 mg INHALATION Q2H PRN PRN 10/02/18 Aerosols] vial.neb. Magnesium Hydroxide [Milk Of 30 ml PO DAILY PRN udc 10/02/18 Magnesia] Allopurinol [Zyloprim] 300 mg PO DAILY 10/08/18 Apixaban [Eliquis] 2.5 mg PO BID 10/08/18 Epoetin Royer [Procrit] 10,000 units SC Q14D 10/08/18 Ergocalciferol [Vitamin D] 50,000 unit PO BURGOS 10/08/18 Furosemide [Lasix] 40 mg PO DAILY 10/08/18 Guaifenesin [Mucinex] 1,200 mg PO BID 10/08/18 Iron Polysaccharide Complex 150 mg PO DAILYCM 10/08/18 [Ferrex 150] Nutritional Supplement [Morales - 1 packet PO BIDCM 10/08/18 ORANGE FLAVOR] Pravastatin [Pravachol] 40 mg PO QHS 10/08/18 Fluoxetine [Prozac] 20 mg PO DAILY 10/12/18 Vancomcyin 125mg/5mL PO Liquid 125 mg PO Q6 10/12/18 Surgical History: - - Bilateral carotid endarectomy Psychiatric History: No pertinent psych hx Lives: With Family - Most recently, at [facility] in [place]. Smoking Status: Never smoker Tobacco Use: Non-smoker Alcohol: None Drugs: None - *Family History Paternal Family History: Family History (Last Reviewed 10/08/18 @ 21:06 by Chuy Abrams DO) Mother Hyperthyroidism Father Diabetes Aortic aneurysm rupture History Items: Diabetes Maternal Family History: Family History (Last Reviewed 10/08/18 @ 21:06 by Chuy Abrams DO) Mother Hyperthyroidism Father Diabetes Aortic aneurysm rupture History Items: Heart Disease Review of Systems Constitutional: Denies: Chills, Fever, Weight Change HEENT: Denies: Head Aches, Sinus Congestion, Sinus Drainage Cardiovascular: Denies: Chest Pain, Palpitations Respiratory: Denies: Cough, Shortness of breath at rest, Sputum production Gastrointestinal: Denies: Abdominal Pain, Nausea, Vomiting Genitourinary: Denies: Dysuria Musculoskeletal: Denies: Joint Pain, Joint Tenderness Skin: Denies: Rash, Wounds Neurological: Denies: Numbness, Tingling, Focal weakness Psychiatric: Denies: Anxiety, Depression, Homicidal Ideations, Suicidal Ideations Hematologic/ Lymphatic: Denies: Easy Bruising, Easy Bleeding VTE Information - Inpt Only VTE Present on Admission: No VTE Mechan Device Prophylaxis: Knee High JEAN PAUL Hose VTE Pharm Prophylaxis ordered?: No Reason prophylaxis not ordered:: Treatment Not Indicated Patient Problems: Active and Suspected Problems Diarrhea (Acute) Clostridium difficile colitis (Acute) Blood in stool (Acute) Acute on chronic kidney failure (Acute) Hypernatremia (Acute) Hypokalemia (Acute) Delirium (Acute) - Physical Exam General: Alert, Oriented x3, Cooperative HEENT: Atraumatic, PERRLA, EOMI, Normocephalic Neck: Supple, No JVD, Negative Carotid Bruits Lungs: Clear to auscultation, Normal air movement Cardiovascular: Regular rate, No murmurs Abdomen: Bowel Sounds Present, Soft, Non Tender Extremities: Capillary Refill Less than 3 Seconds, Edema - 1+ pitting edema bilaterally. Skin: No rashes, No breakdown Musculoskeletal: No Tenderness to Palpation of Joints or Extremities Neurological: Cranial nerves II-XII grossly intact Psych/Mental Status: Normal Affect, Appropriate Vital Signs Temp Pulse Resp BP Pulse Ox 97.6 F L 60 16 147/64 H 98 1215/18 16:00 10/12/18 16:00 10/12/18 16:00 10/12/18 16:00 10/12/18 16:00 Oxygen Flow Rate (L/min) 2 Oxygen Delivery Method Nasal Cannula Weight: 78.653 kg Body Mass Index (BMI) 25.6 Finger Stick Blood Glucose 122 Assessment/Plan All Active Problems Diarrhea (Acute) Clostridium difficile colitis (Acute) Blood in stool (Acute) Acute on chronic kidney failure (Acute) Hypernatremia (Acute) Hypokalemia (Acute) Delirium (Acute) 83 year old male with below past medical history hospitalized for c. diff colitis, complicated by acute on chronic kidney failure, hypernatremia, hypokalemia, encephalopathy, admitted to TCU with debility, here for rehabilitat ion, strengthening, prior to disposition determination. * Debility - PT/OT. * Pain - Tylenol 1000MG Q8H PRN mild pain. * Bowel - Miralax 17GM daily PRN, Senna/colace 1 tablet BID PRN, Dulcolax 10MG daily PRN. * Pneumonia vaccination - Administer Prevnar 13 and/or Pneumovax 23 as necessary. * DVT prophylaxis - Not necessary, already on Eliquis. * Shortness of breath - Albuterol 2.5MG Q2H PRN. * Gout - Allopurinol 300MG daily. * Atrial Fibrillation - Labetalol 200MG BID, Eliquis 2.5MG BID. * Nutrition - Ensure Enlive 120ML 4x/day, Morales 1 packet BID. * Anemia - Ferrex 150MG daily, Procrit 10,000 units Q14 days. * BPH - Finasteride 5MG daily. * Depression - Fluoxetine 20MG daily. * Edema - Lasix 40MG daily. * Skin irritation - Calmoseptine TID bilateral buttocks, coccyx. * Tinea Corporis - Nystatin powder BID groin. * Hyperlipidemia - Pravastatin 40MG QHS, life expectancy short, consider stopping statin therapy. * C. difficile colitis - Vancomycin 125MG Q6H thru 10/24/2018, relapse rate high, consider tapering or prophylaxis dose.
--- NOTE | 2018-10-12 18:33 | NURSING ---
ALL PT CARE DONE IN ROOM DUE TO PRECAUTIONS FOR C-DIFF.
[2018-10-12] MEDS: APIXABAN 2.5 MG TABLET PO (18:34)
[2018-10-12] MEDS: Labetalol 200 MG Tablet PO (18:36)
--- NOTE | 2018-10-12 21:44 | NURSING ---
Pt remains in precautions this shift dt Cdiff. All care provided in room.
[2018-10-12] MEDS: Menthol/Lanolin/Calamine/Znox 113 GM Tube 1 APPLIC TOPICAL (21:53)
[2018-10-12] MEDS: Pravastatin 40 MG Tablet PO (21:54)
[2018-10-12] MEDS: Nystatin Powder 15gm Bottle 1 APPLIC TOPICAL (21:54)
--- NOTE | 2018-10-13 04:30 | NURSING ---
Addendum entered by Mitra Chaudhary 10/13/18 05:03: Pt's son Demetri updated at this time. Original Note: Pt very lethargic this morning, alert to self only, RR 27 with shallow fast breathing, lung sounds diminished, BP 106/56, O2 sat 96%, on 2L oxygen. Dr Boss updated. N.O. to send to ER. Report given to Arline HONG in ER.
[2018-10-13 04:41] LABS: Bedside Glucose 86 mg/dL (70-110)
[2018-10-13 04:45] VITALS: PULSE 58; RESP 22; O2SAT 98
--- NOTE | 2018-10-13 10:04 | DCINST_ITS ---
- Discharge Diagnoses Current Active Problems: Current Active and Chronic Problems Acute delirium (Acute) You will use the following diet at home:: No restrictions, Regular Your food should be the consistency of: Regular Your liquids should be the consistency of: Regular/Thin Weight Bearing Status: Weight bearing as tolerated Call your doctor if you observe: Fever of 101 or Higher, Inability to urinate, Shortness of breath, Chest pain, Uncontrolled pain Allergies/Adverse Reactions: Allergies No Known Allergies Allergy (Verified 10/13/18 05:23) Medications to take at Discharge Labetalol [Trandate (Beta Lily)] 200 mg PO BID 10/10/16 Aspirin E.C. [Ecotrin] 81 mg PO DAILY 08/14/18 Finasteride [Proscar] 5 mg PO DAILY 08/19/18 Acetaminophen [Tylenol Tablet] 650 mg PO Q6H PRN PRN tab 10/02/18 Albuterol Aerosols [Ventolin Aerosols] 2.5 mg INHALATION Q2H PRN PRN vial.neb. 10/02/18 Magnesium Hydroxide [Milk Of Magnesia] 30 ml PO DAILY PRN udc 10/02/18 Allopurinol [Zyloprim] 300 mg PO DAILY 10/08/18 Apixaban [Eliquis] 2.5 mg PO BID 10/08/18 Epoetin Royer [Procrit] 10,000 units SC Q14D 10/08/18 Ergocalciferol [Vitamin D] 50,000 unit PO BURGOS 10/08/18 Furosemide [Lasix] 40 mg PO DAILY 10/08/18 Guaifenesin [Mucinex] 1,200 mg PO BID 10/08/18 Iron Polysaccharide Complex [Ferrex 150] 150 mg PO DAILYCM 10/08/18 Nutritional Supplement [Morales - ORANGE FLAVOR] 1 packet PO BIDCM 10/08/18 Pravastatin [Pravachol] 40 mg PO QHS 10/08/18 Fluoxetine [Prozac] 20 mg PO DAILY 10/12/18 Vancomcyin 125mg/5mL PO Liquid 125 mg PO Q6 10/12/18 Primary Care Physician: Vijay Mason MD [Primary Care Provider] - Please follow up with your Primary Care Physician in: 1 week. Test Results: Test results from this visit will be discussed in further detail at your follow- up appointment, if applicable. Please Follow Up With: Robby Stephens MD When: 2 weeks Please Follow Up With: Vijay Mason MD When: after discharge Proposed Discharge Date: 10/13/18
--- NOTE | 2018-10-13 10:05 | PCM.DC.SUM ---
Discharge Date and Diagnosis - Problem List Patient Problems: Active and Suspected Problems Acute delirium (Acute) Date of Admission: 10/12/18 Date of Discharge: 10/13/18 - Primary Discharge Diagnosis Active and Suspected Problems Acute delirium (Acute) - Secondary Discharge Diagnosis Chronic Problems Atrial fibrillation with rapid ventricular response (Chronic) Calciphylaxis (Chronic) Coronary artery disease (Chronic) Cellulitis of leg (Chronic) Healthcare associated bacterial pneumonia (Chronic) Sepsis (Chronic) Osteoarthritis (Chronic) BPH (benign prostatic hyperplasia) (Chronic) Leg ulcer (Chronic) Lymphedema (Chronic) Pleural effusion, right (Chronic) Hypertension (Chronic) Stroke (Chronic) Hyperlipidemia (Chronic) Carotid artery disease (Chronic) Anemia of chronic kidney failure (Chronic) Lymphedema of lower extremity (Chronic) Nephrolithiasis (Chronic) Gout (Chronic) CKD (chronic kidney disease), stage III (Chronic) BPH (benign prostatic hyperplasia) (Chronic) Hospital Course and Treatment Consultations 10/12/18 16:31 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 STASIS ULCERS TO LLE Operations: None Procedures: None Summary of Care Provided: The patient is a 83 year old Male with below past medical history hospitalized for c. diff colitis, complicated by acute on chronic kidney failure, hypernatremia, hypokalemia, encephalopathy, admitted to TCU with debility, here for rehabilitation, strengthening, prior to disposition determination. 10/13/2018 4:37AM Resident increasingly short of breath, respiratory rate > 20, also more confused. Discharge to [facility] Emergency Department for evaluation, admission to hospital. Patient Problems: Active and Suspected Problems Acute delirium (Acute) - Physical Exam Vital Signs Temp Pulse Resp BP Pulse Ox 97.6 F L 58 L 22 H 147/64 H 98 10/12/18 16:00 10/13/18 04:45 10/13/18 04:45 10/12/18 16:00 10/13/18 04:45 Oxygen Flow Rate (L/min) 2 Oxygen Delivery Method Nasal Cannula Weight: 78.653 kg Body Mass Index (BMI) 25.6 Finger Stick Blood Glucose 122 POC Glucose 10/13/18 04:34 POC Glucose 86 Discharge Diet: No Restrictions Weight Bearing Status: Weight bearing as tolerated Call your doctor if you observe: Fever of 101 or Higher, Inability to urinate, Shortness of breath, Chest pain, Uncontrolled pain Home Medications: Medications to take at Discharge Labetalol [Trandate (Beta Lily)] 200 mg PO BID 10/10/16 Aspirin E.C. [Ecotrin] 81 mg PO DAILY 08/14/18 Finasteride [Proscar] 5 mg PO DAILY 08/19/18 Acetaminophen [Tylenol Tablet] 650 mg PO Q6H PRN PRN tab 10/02/18 Albuterol Aerosols [Ventolin Aerosols] 2.5 mg INHALATION Q2H PRN PRN vial.neb. 10/02/18 Magnesium Hydroxide [Milk Of Magnesia] 30 ml PO DAILY PRN udc 10/02/18 Allopurinol [Zyloprim] 300 mg PO DAILY 10/08/18 Apixaban [Eliquis] 2.5 mg PO BID 10/08/18 Epoetin Royer [Procrit] 10,000 units SC Q14D 10/08/18 Ergocalciferol [Vitamin D] 50,000 unit PO BURGOS 10/08/18 Furosemide [Lasix] 40 mg PO DAILY 10/08/18 Guaifenesin [Mucinex] 1,200 mg PO BID 10/08/18 Iron Polysaccharide Complex [Ferrex 150] 150 mg PO DAILYCM 10/08/18 Nutritional Supplement [Morales - ORANGE FLAVOR] 1 packet PO BIDCM 10/08/18 Pravastatin [Pravachol] 40 mg PO QHS 10/08/18 Fluoxetine [Prozac] 20 mg PO DAILY 10/12/18 Vancomcyin 125mg/5mL PO Liquid 125 mg PO Q6 10/12/18 Primary Care Physician: Vijay Mason MD [Primary Care Provider] - Please follow up with your Primary Care Physician in: 1 week. Please Follow Up With: Robby Stephens MD When: 2 weeks Please Follow Up With: Vijay Mason MD When: after discharge Disposition: Acute care Hospital Minutes spent on discharge:: 15 Patient Condition:: Guarded Medical Necessity - Tobacco Use Smoking Status: Never smoker Tobacco Use: Non-smoker Meaningful Use Info Meaningful Use Diagnoses (Choose all that apply): None applicable
--- NOTE | 2018-10-21 07:17 | MDS.RN ---
Information for the mds was obtained from review of the clinical record, interview of resident, staff, and direct observation of resident's care.
--- OUTSIDE RECORDS SUMMARY | 2019-01-15 11:28 | XMS RPT_ITS ---
:1935 Author Organization OHIP Support Name Relationship Address Phone BULMARO SAWYER Unavailable [address] [facility] [address] + [place] [address] R Unavailable Unavailable Unavailable VASAS, DEMETRI Unavailable [address] + [place] [address] RICHMONDBULMARO Unavailable [address] [facility] [address] + [place] [address] R Unavailable Unavailable Unavailable VASAS, DEMETRI Unavailable [address] + [place] [address] RICHMONDBULMARO Unavailable [address] [facility] [address] + [place] [address] R Unavailable Unavailable Unavailable VASAS, DEMETRI Unavailable [address] + [place] [address] RICHMONDBULMARO Unavailable [address] [facility] + [place] [address] R Unavailable Unavailable Unavailable VASAS, DEMETRI Unavailable [address] + [place] [address] RICHMONDBULMARO Unavailable [address] [facility] [address] + [place] [address] R Unavailable Unavailable Unavailable VASAS, DEMETRI Unavailable [address] + [place] [address] RICHMONDBULMARO Unavailable [address] [facility] + [place] [address] R Unavailable Unavailable Unavailable VASAS, DEMETRI Unavailable [address] + [place] [address] RICHMONDBULMARO Unavailable [address] [facility] [address] + [place] [address] R Unavailable Unavailable Unavailable VASAS, DEMETRI Unavailable [address] + [place] [address] [place] Bulmaro Unavailable [address] [facility] [address] + [place] [address] R Unavailable Unavailable Unavailable Vasas, Demetri Unavailable [address] + [place] [address] [place] Bulmaro Unavailable [address] [facility] [address] + [place] [address] R Unavailable Unavailable Unavailable Vasas, Demetri Unavailable [address] + [place] [address] RICHMOND BULMARO Unavailable [address] [facility] [address] + [place] [address] R Unavailable Unavailable Unavailable VASAS, DEMETRI Unavailable [address] + [place] [address] [place], Bulmaro Unavailable [address] [facility] [address] + [place] [address] R Unavailable Unavailable Unavailable Vasas, Demetri Unavailable [address] + [place] [address] [facility] [address] [facility] [address] + [place] [address] R Unavailable Unavailable Unavailable Vasas, Demetri Unavailable [address] + [place] [address] [place], Bulmaro Unavailable [address] [facility] [address] + [place] [address] R Unavailable Unavailable Unavailable Vasas, Demetri Unavailable [address] + [place] [address] [facility] Unavailable [address] [facility] [address] + [place] [address] R Unavailable Unavailable Unavailable VASAS, DEMETRI Unavailable [address] + [place] [address] RICHMOND, BULMARO Unavailable [address] [facility] [address] + [place] [address] R Unavailable Unavailable Unavailable VASAS, DEMETRI Unavailable [facility] + [place] [address] RICHMOND, BULMARO Unavailable [address] [facility] [address] + [place] [address] R Unavailable Unavailable Unavailable VASAS, DEMETRI Unavailable [address] + [place] [address] [place] Unavailable [address] [facility] [address] + [place] [address] R Unavailable Unavailable Unavailable Vasas, Demetri Unavailable [address] + [place] [address] [place] Bulmaro Unavailable [address] [facility] [address] + [place] [address] R Unavailable Unavailable Unavailable Vasas, Demetri Unavailable [address] + [place] [address] [place] Bulmaro Unavailable [address] [facility] [address] + [place] [address] R Unavailable Unavailable Unavailable Vasas, Demetri Unavailable [address] + [place] [address] [place] Bulmaro Unavailable [address] [facility] [address] + [place] [address] R Unavailable Unavailable Unavailable Vasas, Demetri Unavailable [address] + [place] [address] [facility] Un[facility] [address] [facility] [address] + [place] [address] R Unavailable Unavailable Unavailable Vasas, Demetri Unavailable [address] + [place] [address] [facility] Unavailable [address] [facility] [address] + [place] [address] R Unavailable Unavailable Unavailable Vasas, Demetri Unavailable [address] + [place] [address] [facility] Unavailable [address] [place] [address] [address] + [place] [address] R Unavailable Unavailable Unavailable Vasas, Demetri Unavailable [address] + [place] [address] [facility] Unavailable [address] [facility] [address] + [place] [address] R Unavailable Unavailable Unavailable Vasas, Demetri Unavailable [address] + [place] [address] [facility] Unavailable [address] [facility] + [place] [address] R Unavailable Unavailable Unavailable Vasas, Demetri Unavailable [address] + [place] [address] [facility] Unavailable [address] [facility]. [address] + [place] [address] R Unavailable Unavailable Unavailable Vasas, Demetri Unavailable [address] + [place] [address] [facility] Unavailable [address] [facility] [address] + [address] [place] [address] R Unavailable Unavailable Unavailable VASAS, DEMETRI Unavailable [address] + [place] [address] [facility] Unavailable Unavailable + R Unavailable Unavailable Unavailable VASAS, DEMETRI Unavailable [address] + [place] [address] [place], Bulmaro Unavailable [address] [facility] [address] + [place] [address] R Unavailable Unavailable Unavailable Vasas, Demetri Unavailable [address] + [place] [address] [facility] Unavailable [address] [facility] [address] + [address] [place] [address] R Unavailable Unavailable Unavailable VASAS, DEMETRI Unavailable [address] + [place] [address] [facility] Unavailable [address] [facility] [address] + [address] [place] [address] R Unavailable Unavailable Unavailable VASAS, DEMETRI Unavailable [address] + [place] [address] [facility] Unavailable [address] [facility] [address] + [address] [place] [address] R Unavailable Unavailable Unavailable VASAS, DEMETRI Unavailable [address] + [place] [address] BULMARO SAWYER Unavailable [address] [facility] [address] + [address] [place] [address] R Unavailable Unavailable Unavailable VASAS, DEMETRI Unavailable [address] + [place] [address] R Unavailable Unavailable Unavailable VASAS, DEMETRI Unavailable [address] + [place] [address] R Unavailable Unavailable Unavailable VASAS, DEMETRI Unavailable [address] + [place] [address] R Unavailable Unavailable Unavailable VASAS, DEMETRI Unavailable [address] + [place] [address] R Unavailable Unavailable Unavailable VASAS, DEMETRI Unavailable [address] + [place] [address] R Unavailable Unavailable Unavailable VASAS, DEMETRI Unavailable [address] + [place] [address] R Unavailable Unavailable Unavailable VASAS, DEMETRI Unavailable [address] + [place] [address] R Unavailable Unavailable Unavailable VASAS, DEMETRI Unavailable [address] + [place] [address] R Unavailable Unavailable Unavailable VASAS, DEMETRI Unavailable [address] + [place] [address] R Unavailable Unavailable Unavailable VASAS, DEMETRI Unavailable [address] + [place] [address] Care Team Providers Name Role Phone MASCI, RAH A Referring Unavailable MASCI, RAH [...] Referring Unavailable MASCI, RAH A Referring Unavailable Huerta, Rah Attending Unavailable [facility] Unavailable Sementi, Gail Admitting Unavailable Bakhous, Aziz Consulting Unavailable Ashelfah, Ghasem Attending Unavailable Holden, Moi Consulting Unavailable Sementi, Gail Admitting Unavailable Sementi, Gail Attending Unavailable [facility] Unavailable Sementi, Gail Consulting Unavailable Sementi, Gail Admitting Unavailable [facility] Unavailable Bakhous, Aziz Consulting Unavailable Ashelfah, Ghasem Attending Unavailable Ashelfah, Ghasem Consulting Unavailable Sementi, Gail Admitting Unavailable Ashelfah, Ghasem Attending Unavailable [facility] Unavailable Bakhous, Aziz Consulting Unavailable Holden, Moi Consulting Unavailable Ashelfah, Ghasem Consulting Unavailable Sementi, Gail Admitting Unavailable Ashelfah, Ghasem Attending Unavailable [facility] Unavailable Bakhous, Aziz Consulting Unavailable Holden, Moi Consulting Unavailable Ashelfah, Ghasem Consulting Unavailable Sementi, Gail Admitting Unavailable Ashelfah, Ghasem Attending Unavailable [facility] Unavailable Bakhous, Aziz Consulting Unavailable Holden, Moi Consulting Unavailable Ashelfah, Ghasem Consulting Unavailable Gera, Christiano Chi Admitting Unavailable Gera, Christiano Chi Attending Unavailable Gera, Christiano Chi Referring Unavailable [facility] Unavailable [facility] Unavailable [facility] Admitting Unavailable Dane, Pablito Attending Unavailable [facility], [facility] Admitting Unavailable [facility], [facility] Attending Unavailable [facility] Unavailable [facility], [facility] Consulting Unavailable [facility], [facility] Admitting Unavailable Marlon, Vijay Primary Care Unavailable Dane, Pablito Consulting Unavailable Dane, Pablito Attending Unavailable [facility], [facility] Admitting Unavailable Marlon, Vijay Primary Care Unavailable Dane, Pablito Consulting Unavailable Dane, Pablito Attending Unavailable [facility] Attending Unavailable [facility], Vijay Primary Care Unavailable [place], Tena [facility]-C Attending Unavailable [facility], Vijay Primary Care Unavailable [place], Tena [facility] Attending Unavailable Marlon, Vijay Primary Care Unavailable Marlon, Vijay Attending Unavailable Marlon, Vijay Primary Care Unavailable Marlon, Vijay Attending Unavailable Marlon, Vijay Primary Care Unavailable Staples, Tena [facility]-C Attending Unavailable Marlon, Vijay Primary Care Unavailable Staples, Tena [facility]-C Attending Unavailable [place], Tena [facility]-C Attending Unavailable [facility], Vijay Primary Care Unavailable ANGEL MEDRANO Attending Unavailable ANGEL MEDRANO Referring Unavailable [facility], Vijay Primary Care Unavailable Marlon, Vijay Primary Care Unavailable Agyepong, Chase Admitting Unavailable Bakmakaylas, Aziz Consulting Unavailable Adele Bartons Kei Attending Unavailable Noelle, Bernardino Consulting Unavailable Agyepong, Chase Admitting Unavailable Agyepong, Chase Attending Unavailable [facility], Vijay Primary Care Unavailable Agyepong, Chase Consulting Unavailable Agyepong, Chase Admitting Unavailable Marlon, Vijya Primary Care Unavailable Bakhous, Aziz Consulting Unavailable Dane, Pablito Attending Unavailable Noelle, Bernardino Consulting Unavailable Dane, Pablito Consulting Unavailable Agyepong, Chase Admitting Unavailable Adele Bartons F Attending Unavailable [facility], Vijay Primary Care Unavailable Bakhous, Aziz Consulting Unavailable Drake, Bernardino Consulting Unavailable Mervatoniray, Jose Guadalupe F Consulting Unavailable Agyepong, Chase Admitting Unavailable Oralia, Jose Guadalupe F Attending Unavailable [facility], Vijay Primary Care Unavailable Bakhous, Aziz Consulting Unavailable Drake, Bernardino Consulting Unavailable Kotsonis, Jose Guadalupe F Consulting Unavailable [facility], [facility] Admitting Unavailable [facility], Vijay Primary Care Unavailable Dane, Pablito Consulting Unavailable Dane, Pablito Attending Unavailable Ernestine Varela Attending Unavailable Agyepong, Chase Admitting Unavailable Oralia, Jose Guadalupe F Attending Unavailable [facility], Vijay Primary Care Unavailable Bakhous, Aziz Consulting Unavailable Drake, Bernardino Consulting Unavailable Kotsonis, Jose Guadalupe F Consulting Unavailable Agyepong, Chase Admitting Unavailable Jose Guadalupe Barton Attending Unavailable [facility] Care Unavailable Zakia Meyer Consulting Unavailable Bernardino Drake Consulting Unavailable Jose Guadalupe Barton Consulting Unavailable Gera, Christiano Chi Admitting Unavailable Gera, Christiano Chi Attending Unavailable Gera, Christiano Chi Referring Unavailable [facility] Care Unavailable [facility], Vijay Attending Unavailable [facility] Care Unavailable [facility] Care Unavailable Agyepong, Chase Admitting Unavailable [place], Rah Consulting Unavailable White, Maureen Attending Unavailable Steve, Oscar Consulting Unavailable Agyepong, Chase Admitting Unavailable Agyepong, Chase Attending Unavailable [facility] Care Unavailable Agyepong, Chase Consulting Unavailable Agyepong, Chase Admitting Unavailable [place], Rah Attending Unavailable [facility] Care Unavailable [place], Rah Consulting Unavailable Ashelfah, Ghasem Consulting Unavailable Agyepong, Chase Admitting Unavailable Moodispafrance, Rah Attending Unavailable [facility] Care Unavailable [place], Rah Consulting Unavailable Steve, Oscar Consulting Unavailable White, Maureen Consulting Unavailable Agyepong, Chase Admitting Unavailable [facility] Care Unavailable [place], Rah Consulting Unavailable White, Maureen Attending Unavailable Steve, Oscar Consulting Unavailable White, Maureen Consulting Unavailable Agyepong, Chase Admitting Unavailable [place], Rah Attending Unavailable [facility] Care Unavailable [place], Rah Consulting Unavailable Steve, Oscar Consulting Unavailable White, Maureen Consulting Unavailable Agyepong, Chase Admitting Unavailable [facility] Care Unavailable [place], Rah Consulting Unavailable White, Maureen Attending Unavailable Steve, Oscar Consulting Unavailable White, Maureen Consulting Unavailable Agyepong, Chase Admitting Unavailable [facility] Care Unavailable [place], Rah Consulting Unavailable White, Maureen Attending Unavailable Steve, Oscar Consulting Unavailable White, Maureen Consulting Unavailable Rah Huerta Attending Unavailable Rah Huerta Attending Unavailable ANGEL MEDRANO Attending Unavailable [facility] VIJAY MARTINEZ Referring Unavailable ANGEL MEDRANO Attending Unavailable VIJAY MASON Referring Unavailable [facility] Care Unavailable ANGEL MEDRANO Attending Unavailable [facility] VIJAY Referring Unavailable [facility] Care Unavailable PROBLEMS PROBLEMS DATE TYPE CONDITION / CODE ATTENDING STATUS SOURCE 10/14/2018 Unknown R53.81 - Other Gera, Christiano Chi Active [place] malaise / Community R53.81(ICD-10) Hospital Repository 04/27/2016 Active 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 / Repository I65.23(ICD-10) 05/17/2018 Active Other specified ANGEL MEDRANO Active [place] postprocedural [facility] Other states / [place] Z98.890(ICD-10) Repository 04/27/2016 Admitting Unknown / ANGEL MEDRANO Active [facility] diagnosis UNK(Unknown) [facility] Repository 05/07/2018 Unknown 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 [facility] bilateral carotid Hospital arteries / Repository I65.23(ICD-10) 04/28/2018 Unknown I89.0 - Lymphedema, Staples, Active [place] not elsewhere [facility] Community classified / Hospital I89.0(ICD-10) Repository 04/25/2018 Unknown L00 - Staphylococcal Staples, 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 / Hospital L00(ICD-10) Repository 03/04/2018 Unknown D64.9 - Anemia, MarlonVijay Active [place] unspecified / Community D64.9(ICD-10) Hospital Repository 03/01/2018 Unknown D69.6 - MarlonVijay arias Active [facility] Thrombocytopenia, Community unspecified / Hospital D69.6(ICD-10) Repository 03/01/2018 Unknown E55.9 - Vitamin D Vijay Mason Active [place] deficiency, Community unspecified / Hospital E55.9(ICD-10) Repository 03/01/2018 Unknown N18.3 - Chronic Marlon Vijay Active [facility] kidney disease, Community stage 3 (moderate) / Hospital N18.3(ICD-10) Repository 01/30/2018 Active Anemia in chronic NA Active [place] kidney disease / Clinic Main D63.1(ICD-10) [place] Repository 01/30/2018 Active Chronic kidney NA Active [facility] disease, stage 3 Clinic Main (moderate) / [place] N18.3(ICD-10) Repository 01/27/2018 Unknown Z00.00 - Encounter Jhoan Active [facility] for general adult [facility] medical examination Hospital without abnormal Repository findings / Z00.00(ICD-10) 11/21/2017 Active Chronic kidney NA Active [place] disease, unspecified Clinic Main / N18.9(ICD-10) [place] Repository PROCEDURES PROCEDURES No Procedure Records FoundRESULTS RESULTS DISCHARGE SUMMARY Observed: 10/16/2018 Status: F Source: [place] 4:21 PM [facility] REPOSITORY [facility] Medical Records Department [address] [place] [address] Discharge Summary 10/16/18 1238 MR#: [id number] Acct: [id number] Name: DOUG CAST Rep #: [id number] : 1935 83 From: Lion BARONE PCP: Vijay Mason MD Status: ADM IN Y Location: [place] [address] ADDENDUM by Pablito Vela MD on 10/16/18 at 1621 Code Visit Patient was seen and examined today. Patient is more awake alert and oriented x3. Patient's lfxjlbfl-px-ecg present in the room. Physical exam findings [...] follow- up instructions discussed with the patient's frvvnvvi-dj-oyb. Hospital course and discharge planning discussed with the patient's bfbtsipj-gc-byi and she agrees. Total time spent, exact [...] Preliminary Code Visit Inpatient E AND M: [id number] Disch Hosp 10/16/18 1246 <Electronically signed by Lion BARONE> Date Lion BARONE 10/16/18 1618<Electronically signed by Pablito Vela MD> Cosigner Signature (if applicable): Date Pablito Vela MD CC: ABISAI Green; Pablito Vela MD; Vijay Mason MD Signed 12 LEAD ELECTROCARDIOGRAM Observed: 10/16/2018 Status: F Source: [place] 3:06 PM [facility] REPOSITORY [facility] Cardiovascular Services [address], [place] [address] 12 Lead EKG 10/13/18 0617 MR#: [id number] Acct: [id number] Name: DOUG CAST Rep #: [id number] : 1935 83 From: Bhavesh Maxwell MD Attending Dr: Pablito Vela MD Status: ADM IN Ordering Dr: Stanislaw Jaimes MD Date: 10/13/18 Location: [facility] Sex: M C Admitted: 10/13/18 Test Reason [...] ECG Confirmed by BHAVESH MAXWELL MD ([id number]), dictionary editor SARY MA ([id number]) on 10/16/2018 3:06:12 PM Referred By: NUNO Confirmed By:BHAVESH MAXWELL MD 10/16/18 1506 Date Bhavesh Maxwell MD CC: Stanislaw Jaimes MD; Pablito Vela MD; Vijay Mason MD Signed DISCHARGE INSTRUCTION Observed: 10/16/2018 Status: F Source: [place] 12:37 PM [facility] REPOSITORY [facility] Medical Records Department [address] [place] [address] Instructions for Home/Discharge Instructions 10/16/18 1236 MR#: [id number] Acct: [id number] Name: DOUG CAST Brittani Rep #: [id number] : 1935 83 From: Lion BARONE PCP: [...] 10/15/2018 Status: F Source: [place] 5:13 AM [facility] REPOSITORY TYPE CODE TESTS RESULT OUT OF [...] Normal 1+ Performed By: #### L100.0100 #### [facility] [address] [facility] [address] [place], [place], [address] BASIC METABOLIC Collected: 10/15/2018 Status: F Source: [place] PROFILE (BMP) 5:00 AM [facility] REPOSITORY TYPE CODE TESTS RESULT OUT OF [...] GAP 7 Performed By: #### L500.2500 #### [facility] [address] [facility] [place], [address] BASIC METABOLIC Collected: 10/14/2018 Status: F Source: [place] PROFILE (BMP) 6:30 AM [facility] REPOSITORY TYPE CODE TESTS RESULT OUT OF [...] GAP 6 Performed By: #### L500.2500 #### [facility] [address] [facility] [place], [address] HISTORY AND PHYSICAL Observed: 10/13/2018 Status: F Source: [place] EXAM 4:59 PM [facility] REPOSITORY [facility] Medical Records Department [address] [place] [address] History and Physical 10/13/18 0748 MR#: [id number] Acct: [id number] Name: DOUG CAST Rep #: [id number] : 1935 83 From: Linda Syed MD PCP: Vijay Mason MD Status: ADM IN Y Location: [place] [address] Problem List (1) Acute delirium Status: Acute [...] Psychiatric History: No pertinent psych hx Lives: [facility] Smoking Status: Never smoker Tobacco Use: Non-smoker [...] Full code. Discussed code status with patient's domamxqd-ii-bgl who will discuss with the son who is her . Agrees that patient should not be full code. The son will get back to the treatment staff on the expectations and plan. I discussed patient's care at the moment in detail. Code Visit Inpatient E AND M: [id number] Init Hosp L3 10/13/18 1659 <Electronically signed by Linda Syed MD> Date Linda Syed MD Cosigner Signature: Date (if applicable) CC: Linda Syed MD; Vijay Mason MD Signed TROPONIN-I Collected: 10/13/2018 Status: F Source: [place] 3:47 PM [facility] REPOSITORY Order Comment: 'TROP' Serial specimen #1, #2 or #3: 3 TYPE CODE TESTS RESULT OUT OF RANGE REFERENCE UNITS LAB L501.4010 <0.045 ng/mL Normal < 0.015 TROPONIN-I Result Comment: TROPONIN-I EXPECTED VALUES <0.045 Negative 0.045 - 0.590 Consistent with Cardiac Damage > OR = 0.600 Critical Value Not every elevated troponin is indicative of NM. These values should be used with clinical judgement in examining the patient's clinical picture for diagnosis. To establish a diagnosis of NM versus myocardial injury, there must be a demonstrated rise and/or fall in the troponin values, in addition to ischemic symptoms, EKG changes, new regional wall motion abnormality, and/or angiographical evidence. PLEASE NOTE: REFERENCE RANGES EDITED 18 Performed By: #### L501.4010 #### [facility] [address] [place], [place], [id number] BLOOD GASES BY [facility] Collected: 10/13/2018 Status: F Source: [place] 2:24 PM [facility] REPOSITORY TYPE CODE TESTS RESULT OUT OF [...] ISTAT 95 Performed By: #### L9000.0800 #### [facility] Point of Care [address] [place], [place] [address] TROPONIN-I Collected: 10/13/2018 Status: F Source: [place] 1:45 PM [facility] REPOSITORY Order Comment: 'TROP' Serial specimen #1, #2 or #3: 2 TYPE CODE TESTS RESULT OUT OF RANGE REFERENCE UNITS LAB L501.4010 <0.045 ng/mL Normal < 0.015 TROPONIN-I Result Comment: TROPONIN-I EXPECTED VALUES <0.045 Negative 0.045 - 0.590 Consistent with Cardiac Damage > OR = 0.600 Critical Value Not every elevated troponin is indicative of NM. These values should be used with clinical judgement in examining the patient's clinical picture for diagnosis. To establish a diagnosis of NM versus myocardial injury, there must be a demonstrated rise and/or fall in the troponin values, in addition to ischemic symptoms, EKG changes, new regional wall motion abnormality, and/or angiographical evidence. PLEASE NOTE: REFERENCE RANGES EDITED 18 Performed By: #### L501.4010 #### [facility] [address] [place], [place], [address] BLOOD GASES BY [facility] Collected: 10/13/2018 Status: F Source: MARK 10:52 AM [facility] REPOSITORY TYPE CODE TESTS RESULT OUT OF [...] ISTAT 100 Performed By: #### L9000.0800 #### [facility] Point of Care [address] [place], [place] [address] DISCHARGE SUMMARY Observed: 10/13/2018 Status: F Source: [place] 10:07 AM [facility] REPOSITORY [facility] Medical Records Department [address] [place] [address] Discharge Summary 10/13/18 1005 MR#: [id number] Acct: [id number] Name: DOUG CAST Rep #: [id number] : 1935 83 From: Christiano Boss MD PCP: Vijay Mason MD Status: DIS IN Y Location: [place] [address] Discharge Date and Diagnosis - Problem List [...] Course and Treatment Consultations 10/12/18 16:31 Consult: Onc/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 Discharge to [facility] Emergency Department for evaluation, admission to [...] Vijay Mason MD When: after discharge Disposition: [facility] Minutes spent on discharge:: 15 Patient [...] DISCHARGE INSTRUCTION Observed: 10/13/2018 Status: F Source: [place] 10:04 AM [facility] REPOSITORY [facility] Medical Records Department [address] [place] [address] Instructions for Home/Discharge Instructions 10/13/18 1003 MR#: [id number] Acct: [id number] Name: DOUG CAST Rep #: [id number] : 1935 83 From: Christiano Boss MD [...] 10/13/2018 Status: F Source: MARK 9:40 AM [facility] REPOSITORY TYPE CODE TESTS RESULT OUT OF [...] Lymph 0.50 Performed By: #### L100.0100 #### [facility] [address] [place], [place], [id number] BNP,B-TYPE NATRIURETIC Collected: 10/13/2018 Status: F Source: [place] PEPTIDE 9:40 AM [facility] REPOSITORY Order Comment: Comments: as add on test TYPE CODE TESTS RESULT OUT OF RANGE REFERENCE UNITS LAB L503.6620 0-100 pg/mL High B-TYPE 166.1 ARNOLD PEP Performed By: #### L503.6620 #### [facility] [address] [place], [place], [address] TROPONIN-I Collected: 10/13/2018 Status: F Source: [place] 9:40 AM [facility] REPOSITORY Order Comment: 'TROP' Serial specimen #1, #2 or #3: 1 TYPE CODE TESTS RESULT OUT OF RANGE REFERENCE UNITS LAB L501.4010 <0.045 ng/mL Normal < 0.015 TROPONIN-I Result Comment: TROPONIN-I EXPECTED VALUES <0.045 Negative 0.045 - 0.590 Consistent with Cardiac Damage > OR = 0.600 Critical Value Not every elevated troponin is indicative of NM. These values should be used with clinical judgement in examining the patient's clinical picture for diagnosis. To establish a diagnosis of NM versus myocardial injury, there must be a demonstrated rise and/or fall in the troponin values, in addition to ischemic symptoms, EKG changes, new regional wall motion abnormality, and/or angiographical evidence. PLEASE NOTE: REFERENCE RANGES EDITED 18 Performed By: #### L501.4010 #### [facility] [address] [facility] [place], [address] LACTIC ACID Collected: 10/13/2018 Status: F Source: [place] 8:45 AM [facility] REPOSITORY Order Comment: Yes/No query for Sepsis Lactate Rule Y TYPE CODE TESTS RESULT OUT OF RANGE REFERENCE UNITS LAB L503.6005 0.4-2.0 mmol/L Normal LACTIC ACID 0.8 Performed By: #### L503.6005 #### [facility] [address] [facility] [place], [address] EMERGENCY DEPARTMENT Observed: 10/13/2018 Status: C Source: [place] SUMMARY 8:35 AM [facility] REPOSITORY [facility] Medical Records Department [address] [place] [address] Emergency Department Summary 10/13/18 0736 MR#: [id number] Acct: [id number] Name: DOUG CAST Rep #: [id number] : 1935 83 From: Stanislaw Jaimes MD PCP: Vijay Mason MD Status: ADM IN ADDENDUM by Kary Ivan MD on 10/13/18 at 0835 Patient was signed out to ne pending transfer to the floor. Patient's urinalysis [...] CHF Delirium This note was generated with [employer] dictation software. It may contain incorrect words, [...] your Primary Care Provider. Call [facility] ([phone]) or report to the closest Emergency Room. Call 911 if necessary. 10/13/18 0742 <Electronically signed by Stanislaw Jaimes MD> Date Stanislaw Jaimes MD Cosigner Signature (If Indicated): Date CC: Vijay Mason MD URINALYSIS, COMPLETE Collected: 10/13/2018 Status: F Source: MARK 8:05 AM [facility] REPOSITORY Order Comment: How was Urine Obtained? [...] Normal AMORPHOUS Performed By: #### L400.0001 #### [facility] [address] [place], [address] Observed: 10/13/2018 Status: F Source: [place] CULTURE, URINE 8:05 AM [facility] REPOSITORY Comments: use off of urine already collected Has pt arrived? Y Urine Culture ORGANISM 1: Marzena albicans Wallace Count 25,000-50,000 Performed By: #### M100.0650 #### [facility] [address] [place], [address] CBC W/DIFF, AUTOMATED Collected: 10/13/2018 Status: F Source: [place] 6:19 AM [facility] REPOSITORY TYPE CODE TESTS RESULT OUT OF [...] Lymph 0.52 Performed By: #### L100.0100 #### [facility] [address] [place], [place], [address] COMPREHENSIVE METABOLIC Collected: 10/13/2018 Status: F Source: [facility] 6:19 AM [facility] REPOSITORY TYPE CODE TESTS RESULT OUT OF [...] GAP 4 Performed By: #### L500.4050 #### [facility] [address] [facility] [place], [address] CHEST 1 VIEW Observed: 10/13/2018 Status: F Source: [place] (PORTABLE) 6:06 AM [facility] REPOSITORY [facility] Imaging Services [address] [place] [address] Chest 1 View (Portable) MR#: [id number] Acct: [id number] Name: DOUG CAST Rep #: [id number] : 1935 M 83 From: Carmelo Canseco MD PCP: Vijay Mason MD Status: REG ER Study: Chest 1 View (Portable) Date of Exam: 10/13/18 Exam# [id number] Ordering Dr: Stanislaw Jaimes MD STUDY: X-RAY [...] CC: Stanislaw Jaimes MD; Vijay Mason MD Ink Printer: Signed BRAIN/HEAD WITHOUT Observed: 10/13/2018 Status: F Source: [place] CONTRAST 6:06 AM [facility] REPOSITORY [facility] Imaging Services [address] [place], [place] [address] [address] Brain/Head without Contrast MR#: [id number] Acct: [id number] Name: DOUG CAST Brittani Rep #: [id number] : 1935 M 83 From: Carmelo Canseco MD PCP: Vijay Mason MD Status: REG ER Study: Brain/Head without Contrast Date of Exam: 10/13/18 Exam# [id number] Ordering Dr: Stanislaw Jaimes MD STUDY: CT [...] CC: Stanislaw Jaimes MD; Vijay Mason MD Ink Printer: Signed BEDSIDE GLUCOSE Collected: 10/13/2018 Status: F Source: MARK 4:34 AM [facility] REPOSITORY TYPE CODE TESTS RESULT OUT OF RANGE REFERENCE UNITS LAB L501.080 70-110 mg/dL Normal BEDSIDE GLU 86 Result Comment: MANAGEMENT OF PATIENT CARE PER NURSING PROTOCOL Performed By: #### L501.080 #### [facility] Point of Care [address] [facility] [place] [address] Observed: 10/13/2018 Status: F Source: MARK CULTURE, BLOOD (WB) 12:00 AM [facility] REPOSITORY BC No growth in 5 days. Performed By: #### M200.1000 #### [facility] [address] [place], [address] Observed: 10/13/2018 Status: F Source: MARK CULTURE, BLOOD (WB) 12:00 AM [facility] REPOSITORY BC No growth in 5 days. Performed By: #### M200.1000 #### [facility] [address] [facility] [place], [address] HISTORY AND PHYSICAL Observed: 10/12/2018 Status: F Source: MARK EXAM 5:52 PM [facility] REPOSITORY [facility] Medical Records Department [address] [facility] [place] [address] History and Physical 10/12/18 1728 MR#: [id number] Acct: [id number] Name: DOUG CAST Rep #: [id number] : 1935 83 From: Christiano Boss MD PCP: Vijay Mason MD Status: ADM IN Y Location: [place] [address] Problem List (1) Diarrhea Status: Acute (2) [...] with below past medical history presented to [facility] Emergency Department 10/08/2018 with abnormal labs. [...] - Most recently, at [facility] [place]. Smoking Status: Never smoker Tobacco Use: Non-smoker [...] high, consider tapering or prophylaxis dose. 10/12/18 0148 <Electronically signed by Christiano Boss MD> Date Christiano Boss MD Cosign Signature: Date (if applicable) CC: Vijay Mason MD; Christiano Boss MD Signed DISCHARGE SUMMARY Observed: 10/12/2018 Status: F Source: MARK 1:01 PM [facility] REPOSITORY [facility] Medical Records Department [address] [place] [address] Discharge Summary 10/12/18 1253 MR#: [id number] Acct: [id number] Name: SEGUNDOUG Rep #: [id number] : 1935 83 From: Nanda Canada MD PCP: Vijay Mason MD Status: ADM [place] [facility] [id number] Discharge Date and Diagnosis Date of Admission: [...] Service support , Consultations 10/09/18 01:05 Consult: Onc/Wound/manager laundry Routine Comment: Reason for Consult:: coccyx wound, leg wounds Dr. Rsoario, Dr. Hurtado, Dr. Meyer, nephrology. Dr. Hatch, [...] 1 week. This note was generated with [employer] software. It may contain incorrect words, spelling, [...] Robby Stephens MD When: 2 weeks. Disposition: Care Home facility Minutes spent on discharge:: 34 Patient Condition:: Stable Medical Necessity - Tobacco Use Smoking Status: Never smoker Tobacco Use: Non-smoker Meaningful Use Info Meaningful Use Diagnoses (Choose all that apply): None applicable Code Visit Inpatient E AND M: 50767 Disch Hosp 10/12/18 1301 <Electronically signed by Nanda Canada MD> Date Nanda Canada MD Cosigner Signature (if applicable): Date CC: Zakia Meyer MD; Nanda Canada; Diane Rosario M.D.; Vijay Mason MD Signed TRANSFER TO [facility] Observed: 10/12/2018 Status: F Source: [facility] 9:37 AM [facility] REPOSITORY [facility] Medical Records Department [address] [place] [address] Transfer to [facility] Care MR#: [id number] Acct: [id number] Name: DOUG CAST Brittani Rep #: [id number] : 1935 83 From: Nanda Canada MD PCP: Vijay Mason MD Status: ADM IN DOUG CAST Brittani [id number] (Patient) (Health Ins. Claim No.) (Day of Discharge to Facility) Certification of patient admission REQUIRED AT TIME OF ADMISSION. I CERTIFY THAT POST-HOSPITAL ECF SERVICES ARE REQUIRED TO BE GIVEN ON AN IN-PATIENT BASIS BECAUSE OF THE ABOVE NAMED PATIENT'S NEED FOR [facility] CARE ON A CONTINUING BASIS FOR THE [...] F Source: MARK PROFILE (BMP) 6:24 AM [facility] REPOSITORY TYPE CODE TESTS RESULT OUT OF [...] GAP 6 Performed By: #### L500.2500 #### [facility] [address] [facility]. [place], [place], [id number] CBC W/DIFF, AUTOMATED Collected: 10/12/2018 Status: F Source: [place] 6:24 AM [facility] REPOSITORY TYPE CODE TESTS RESULT OUT OF [...] Lymph 0.49 Performed By: #### L100.0100 #### [facility] [address] [place], [place] [address]all [facility] [place], [address] CBC W/DIFF, AUTOMATED Collected: 10/11/2018 Status: F Source: [place] 5:38 AM [facility] REPOSITORY TYPE CODE TESTS RESULT OUT OF [...] Lymph 0.55 Performed By: #### L100.0100 #### [facility] [address] [place], [address] BASIC METABOLIC Collected: 10/11/2018 Status: F Source: [place] PROFILE ([facility]) 5:38 AM [facility] REPOSITORY TYPE CODE TESTS RESULT OUT OF [...] GAP 5 Performed By: #### L500.2500 #### [facility] [address] [place], [address] CONSULTATION Observed: 10/10/2018 Status: F Source: [place] 8:05 AM [facility] REPOSITORY [facility] Medical Records Department [address] [place] [address] Consultation 10/10/18 0803 MR#: [id number] Acct: [id number] Name: DOUG CAST Rep #: [id number] : 1935 83 From: Fernando Hatch MD PCP: Vijay Mason MD Status: ADM IN Location: [place] [address] Reason for Consult Date of Consultation: 10/10/18 Reason for Consultation: kidney stone History of Present Illness: The patient is a 83 year old Male in [facility] admitted with multiple medical problems and [...] Family, - - [place] living [place] Smoking Status: Never smoker Tobacco Use: Non-smoker [...] 10/10/2018 Status: F Source: MARK 5:50 AM [facility] REPOSITORY TYPE CODE TESTS RESULT OUT OF [...] Lymph 0.42 Performed By: #### L100.0100 #### [facility] [address] [place] [address]. [place], [place], [address] BASIC METABOLIC Collected: 10/10/2018 Status: F Source: [place] PROFILE (BMP) 5:50 AM [facility] REPOSITORY TYPE CODE TESTS RESULT OUT OF [...] 6 Performed By: #### L500.2500, L501.5200 #### [facility] [address] [place], [address] MAGNESIUM Collected: 10/10/2018 Status: F Source: MARK 5:50 AM [facility] REPOSITORY TYPE CODE TESTS RESULT OUT OF RANGE REFERENCE UNITS LAB L501.5200 1.6-2.6 mg/dL Normal MG 2.0 Performed By: #### L500.2500, L501.5200 #### [facility] [address] [place], [address] ABDOMEN/PELVIS WITHOUT Observed: 10/09/2018 Status: F Source: MARK CONT 7:38 PM [facility] REPOSITORY [facility] Imaging Services [address] [place] [address] Abdomen/Pelvis without Cont MR#: [id number] Acct: [id number] Name: SEGUNDOUG Brittani Rep #: [id number] : 1935 M 83 From: Baltazar Moctezuma MD PCP: Vijay Mason MD Status: ADM IN Study: Abdomen/Pelvis without Cont Date of Exam: 10/09/18 Exam# [id number] Ordering Dr: Nanda Canada MD STUDY: CT [...] , CC: Nanda Canada; Vijay Mason MD Ink Printer: Signed UREA NITROGEN, URINE Collected: 10/09/2018 Status: F Source: MARK 10:20 AM [facility] REPOSITORY TYPE CODE TESTS RESULT OUT OF RANGE REFERENCE UNITS LAB L502.0715 NO RANGE EST. mg/dL Normal URINE 793 UREA Performed By: #### L502.0715 #### [facility] [address] [place], [address] CREATININE, URINE Collected: 10/09/2018 Status: F Source: MARK (RANDOM) 10:20 AM [facility] REPOSITORY TYPE CODE TESTS RESULT OUT OF RANGE REFERENCE UNITS LAB L501.1200 NO RANGE EST. mg/dL Normal UR CREAT 88.30 Performed By: #### L501.1200 #### [facility] [address] [facility] [place], [address] CONSULTATION Observed: 10/09/2018 Status: F Source: MARK 7:39 AM [facility] REPOSITORY [facility] Medical Records Department [address] [place] [address] Consultation 10/09/18 0731 MR#: [id number] Acct: [id number] Name: DOUG CAST Rep #: [id number] : 1935 83 From: Zakia Meyer MD PCP: Vijay Mason MD Status: ADM IN [place] [facility] [id number] Problem List (1) Acute kidney injury superimposed [...] in July 2018. Patient was sent to [facility] from long term due to diarrhea. Stool test came back positive for blood. Patient was on antibiotics at the long term for pneumonia treatment. Patient was admitted for [...] Lasix 40 mg p.o. daily at the long term. No NSAIDs used. No recent IV contrast [...] Allopurinol (Zyloprim) 300 mg PO DAILY [facility] Amoxicillin (Amoxil) 500 mg PO Q12 [facility] Last Admin: 10/08/18 21:50 Dose: 500 mg Apixaban (Eliquis) 2.5 mg PO BID [facility] Last Admin: 10/08/18 21:50 Dose: 2.5 mg Aspirin (Ecotrin) 81 mg PO DAILY [facility] Epoetin Royer (Procrit) 10,000 units SC Q14D [facility] Ergocalciferol (Vitamin D) 50,000 unit PO BURGOS [facility] Finasteride (Proscar) 5 mg PO DAILY [facility] Furosemide (Lasix) 40 mg PO DAILY [facility] Guaifenesin (Mucinex) 1,200 mg PO BID [facility] Last Admin: 10/08/18 21:51 Dose: 1,200 mg Hydrocortisone Acetate (Anusol Hc) 25 mg RECTAL BID [facility] Stop: 10/11/18 10:01 Last Admin: 10/08/18 23:54 Dose: 25 mg Hydrocortisone Acetate (Anusol Hc) 25 mg RECTAL BID PRN PRN Labetalol HCl (Trandate) 200 mg PO BID [facility] Last Admin: 10/08/18 21:50 Dose: 200 mg Nutritional Formula ([place] Flavor) [facility] Nutritional Formula (Nepro Carb Steady) 120 ml PO 4X/DAY [facility] Polysaccharide Iron Complex (Ferrex 150) 150 [facility] Potassium Chloride (K-Dur) 20 meq [facility] Stop: 10/09/18 08:01 Last Admin: 10/08/18 21:50 Dose: 20 meq Pravastatin Sodium (Pravachol) 40 mg PO QHS [facility] Last Admin: 10/08/18 21:50 Dose: 40 [...] BLOOD CNT Collected: 10/09/2018 Status: F Source: [place] NO DIFF 5:04 AM [facility] REPOSITORY TYPE CODE TESTS RESULT OUT OF [...] MPV 12.1 Performed By: #### L100.0500 #### [facility] [place], [address] COMPREHENSIVE METABOLIC Collected: 10/09/2018 Status: F Source: MARK LAST 5:04 AM [facility] REPOSITORY TYPE CODE TESTS RESULT OUT OF [...] Performed By: #### L500.4050, L501.2300, L501.5200 #### [facility] [address] [place], [address] PHOSPHORUS Collected: 10/09/2018 Status: F Source: MARK 5:04 AM [facility] REPOSITORY TYPE CODE TESTS RESULT OUT OF RANGE REFERENCE UNITS LAB L501.2300 2.5-4.9 mg/dL Normal PHOS 4.1 Performed By: #### L500.4050, L501.2300, L501.5200 #### [facility] [address] [place], [address] MAGNESIUM Collected: 10/09/2018 Status: F Source: MARK 5:04 AM [facility] REPOSITORY TYPE CODE TESTS RESULT OUT OF RANGE REFERENCE UNITS LAB L501.5200 1.6-2.6 mg/dL Normal MG 2.0 Performed By: #### L500.4050, L501.2300, L501.5200 #### [facility] [address] [place], [address] STOOL Observed: 10/09/2018 Status: F Source: MARK LACTOFERRIN/WBC 3:25 AM [facility] REPOSITORY Stool Lacto/WBC Normal Reference Range = Negative Fecal WBC Lactoferrin Positive: Fecal WBC Lactoferrin present Performed By: #### M100.0605 #### [facility] [address] [place], [address] Observed: 10/09/2018 Status: C Source: MARK CDIFF (MOLECULAR) 3:25 AM [facility] REPOSITORY Is the patient receiving laxatives? N New/unexplained onset of 3 or more stools in past 24 hrs? Y Cdiff-Molecular RESULTS CALLED TO Sheryl SAVAGE 10/09/18 Sergei [place]. REPORT READ BACK BY SOPHIA. Copy of report sent to Infection Control Printer MS#[id number] 10/09/18 8516 MARIBEL. Normal Reference Range = Negative C. Diff DNA Positive-Toxigenic C. Difficile DNA Detected NAAT METHOD Testing was performed using nucleic acid amplification ORGANISM 1: Toxigenic C. difficile DNA Performed By: #### M100.6796 #### [facility] [address] [place], [address] Observed: 10/09/2018 Status: F Source: [place] ENTERIC PATHOGEN 3:25 AM [facility] PANEL STOOL REPOSITORY EP PANEL STOOL Not [...] Not Detected Performed By: #### M100.637 #### [facility] [address] [place], [address] EMERGENCY DEPARTMENT Observed: 10/09/2018 Status: F Source: [place] SUMMARY 12:35 AM [facility] REPOSITORY [facility] Medical Records Department [address] [place] [address] Emergency Department Summary 10/08/18 1857 MR#: [id number] Acct: [id number] Name: DOUG CAST Rep #: [id number] : 1935 83 From: Doug Currie MD [...] discharged home, and then bounced to a prison facility secondary to functional decline. Patient apparently [...] prior radiograph This note was generated with [employer] dictation software. It may contain incorrect words, [...] problems, contact your Primary Care Provider. Call [facility] - your brands Registry ([phone]) or report to the closest Emergency Room. Call 911 if necessary. 10/09/18 0035 <Electronically signed by Doug Currie MD> Date Doug Currie MD Cosigner Signature (If Indicated): Date CC: Vijay Mason MD HISTORY AND PHYSICAL Observed: 10/08/2018 Status: F Source: [place] EXAM 9:15 PM [facility] REPOSITORY [facility] Medical Records Department [address] [place] [address] History and Physical 10/08/182046 MR#: [id number] Acct: [id number] Name: SEGUNDOUG Brittani Rep #: [id number] : 1935 83 From: Chuy Abrams DO PCP: Vijay Mason MD Status: ADM IN Location: [place] [address] Problem List (1) Diarrhea Status: Acute (2) [...] who presented to the emergency department at [facility] on 10/08/2018 from the long term with complaints of diarrhea, increased weakness, elevated [...] cannula. White blood cell count at the long term was 17.5 with 91% neutrophils. Hemoglobin was [...] Family, - - currently living [place] Smoking Status: Never smoker Tobacco Use: Non-smoker [...] Sl. 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 floor on telemetry Recheck lab in the a.m. Anusol HC suppositories twice daily Fecal leukocytes Enteric pathogen panel Enteric contact isolation Supplement potassium PT and OT Likely needs to go back to the long term Code Visit Inpatient E AND M: 84435 Init Hosp L2 10/08/182114 <Electronically signed by Chuy Abrams DO> Date Chuy Abrams DO Cosigner Signature: Date (if applicable) CC: Gail Abrams; Vijay Mason MD Signed URINALYSIS, COMPLETE Collected: 10/08/2018 Status: F Source: MARK 6:45 PM [facility] REPOSITORY Order Comment: Order Date: 10/08/18 How [...] 0-5 SEEN Performed By: #### L400.0001 #### [facility] [address] [place], [place], [address] Observed: 10/08/2018 Status: F Source: MARK STOOL OCCULT BLOOD 5:40 PM [facility] IFOB REPOSITORY Order Date: 10/08/18 STOB iFOB Occult Blood Positive ORGANISM 1: OCCULT BLOOD POSITIVE Performed By: #### M100.7900 #### [facility] [address] [place], [address] CHEST 1 VIEW Observed: 10/08/2018 Status: F Source: MARK (PORTABLE) 5:34 PM [facility] REPOSITORY [facility] [facility] [address] [address] Chest 1 View (Portable) MR#: [id number] Acct: [id number] Name: DOUG CAST Rep #: [id number] : 1935 M 83 From: Baltazar Moctezuma MD PCP: Vijay Mason MD Status: PRE ER Study: Chest 1 View (Portable) Date of Exam: 10/08/18 Exam# [id number] Ordering Dr: Doug Currie MD STUDY: X-RAY [...] , CC: Doug Currie; Vijay Mason MD Ink Printer: Signed CBC-COMPLETE BLOOD CNT Collected: 10/08/2018 Status: F Source: MARK NO DIFF 6:40 AM [facility] REPOSITORY Order Comment: 119 TYPE CODE TESTS [...] MPV 11.8 Performed By: #### L100.0500 #### [facility] [address] [place], [address] BASIC METABOLIC Collected: 10/08/2018 Status: F Source: [place] PROFILE (BMP) 6:40 AM [facility] REPOSITORY Order Comment: 119 TYPE CODE TESTS [...] GAP 10 Performed By: #### L500.2500 #### [facility] [address] [place], [place], [address] CBC-COMPLETE BLOOD CNT Collected: 10/07/2018 Status: F Source: MARK NO DIFF 7:00 AM [facility] REPOSITORY Order Comment: 119 TYPE CODE TESTS [...] MPV 11.9 Performed By: #### L100.0500 #### [facility] [address] [facility] [address] [place], [place], [address] BASIC METABOLIC Collected: 10/07/2018 Status: F Source: MARK PROFILE (BMP) 7:00 AM [facility] REPOSITORY Order Comment: 119 TYPE CODE TESTS [...] GAP 10 Performed By: #### L500.2500 #### [facility] [address] [place], [place], [address] CBC-COMPLETE BLOOD CNT Collected: 10/05/2018 Status: F Source: [place] NO DIFF 7:25 AM [facility] REPOSITORY TYPE CODE TESTS RESULT OUT OF [...] MPV 12.4 Performed By: #### L100.0500 #### [facility] [address] [place], [address] BASIC METABOLIC Collected: 10/05/2018 Status: F Source: MARK PROFILE (BMP) 7:25 AM [facility] REPOSITORY TYPE CODE TESTS RESULT OUT OF [...] GAP 9 Performed By: #### L500.2500 #### [facility] [address] [facility] [place], [address] 12 LEAD ELECTROCARDIOGRAM Observed: 10/03/2018 Status: F Source: MARK 2:16 PM [facility] REPOSITORY [facility] Cardiovascular Services [address] [facility] [place] [address] 12 Lead EKG 09/29/18 0239 MR#: [id number] Acct: [id number] Name: DOUG CAST Rep #: [id number] : 1935 83 From: Rah Barba MD Attending Dr: Maureen Siddiqui Status: DIS IN Ordering Dr: Chase Zavala MD Date: 09/29/18 Location: [facility] Sex: M C Admitted: 09/29/18 Test [...] ECG Confirmed by BRET MACK, RAH ([id number]), dictionary editor SARY MA ([id number]) on 10/03/2018 2:16:33 PM Referred By: DR NINA Confirmed By:RAH BARBA MD 10/03/18 1416 Date Rah Barba MD CC: Maureen Siddiqui; Chase Zavala MD; Vijay Mason MD Signed 12 LEAD ELECTROCARDIOGRAM Observed: 10/03/2018 Status: F Source: [place] 2:15 PM [facility] REPOSITORY [facility] Cardiovascular Services [address] [place] [address] 12 Lead EKG 09/30/18 0451 MR#: [id number] Acct: [id number] Name: DOUG CAST Rep #: [id number] : 1935 83 From: Rah Barba MD Attending Dr: Maureen Siddiqui Status: DIS IN Ordering Dr: Rah Barba MD Date: 09/30/18 Location: [facility] Sex: M C Admitted: 09/29/18 Test [...] Abnormal ECG Confirmed by BRET MACK, RAH ([id number]), dictionary editor SARY MA ([id number]) on 10/03/2018 2:14:38 PM Referred By: JOSE Confirmed By:RAH BARBA MD 10/03/18 1414 Date Rah Barba MD CC: Maureen Siddiqui; Rah Barba MD; Vijay Mason MD Signed DISCHARGE SUMMARY Observed: 10/02/2018 Status: F Source: [place] 3:00 PM [facility] REPOSITORY [facility] Medical Records Department [address] [place] [address] Discharge Summary 10/02/18 1423 MR#: [id number] Acct: [id number] Name: DOUG CAST Brittani Rep #: [id number] : 1935 83 From: Lion BARONE PCP: Vijay Mason MD Status: DIS IN Y Location: [place] [address]1 ADDENDUM by Maureen Siddiqui on 10/02/18 at [...] AOCD/Fe deficiency anemia who presented to the [facility] ED on 09/29/18 w/ history of [...] hospital summary above. Inpatient E AND M: [address] Disch Hosp 10/02/18 1500 <Electronically signed by [...] right pulmonary infiltration. 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/manager laundry Routine Comment: Reason for Consult:: Lymphedema of [...] DISCHARGE INSTRUCTION Observed: 10/02/2018 Status: C Source: [place] 2:55 PM [facility] REPOSITORY [facility] Medical Records Department [address] [place] [address] Instructions for Home/Discharge Instructions 10/02/18 1000 MR#: [id number] Acct: [id number] Name: DOUG CSAT Rep #: [id number] : 1935 83 From: Lion BARONE PCP: Vijay Mason MD Status: DIS IN ADDENDUM by Maureen Siddiqui on 10/02/18 at 1455 Additional Follow-up recommendation: Please follow-up with your burnisher or consider Dr. Sandrine Ramirez within 1-2 [...] Source: MARK CULTURE, BLOOD (WB) 8:40 AM [facility] REPOSITORY Has pt arrived? Y BC No growth in 5 days. Performed By: #### M200.1000 #### [facility] [address] [place], [place], [address] Observed: 10/02/2018 Status: F Source: MARK CULTURE, BLOOD (WB) 8:30 AM [facility] REPOSITORY Has pt arrived? Y BC No growth in 5 days. Performed By: #### M200.1000 #### [facility] [address] [place], [address] BASIC METABOLIC Collected: 10/02/2018 Status: F Source: MARK PROFILE (BMP) 6:20 AM [facility] REPOSITORY TYPE CODE TESTS RESULT OUT OF [...] GAP 9 Performed By: #### L500.2500 #### [facility] [address] [place], [place], [address] CBC W/DIFF, AUTOMATED Collected: 10/02/2018 Status: F Source: [place] 6:20 AM [facility] REPOSITORY Order Comment: Comments: due to heparin [...] Lymph 0.26 Performed By: #### L100.0100 #### [facility] [address] [place], [address] PARTIAL THROMBOPLAST Collected: 10/02/2018 Status: F Source: [place] TIME 6:20 AM [facility] REPOSITORY Order Comment: Comments: on heparin drip TYPE CODE TESTS RESULT OUT OF REFERENCE UNITS RANGE LAB L300.4310 24.1-36.2 Seconds High PTT 72.4 Performed By: #### L300.4310 #### [facility] [address] [place], [address] CHEST PA AND LATERAL Observed: 10/02/2018 Status: F Source: [place] 12:00 AM [facility] REPOSITORY [facility] Imaging Services [address] [place] [address] Chest PA and Lateral MR#: [id number] Acct: [id number] Name: DOUG CAST Rep #: [id number] : 1935 M 83 From: Stiven Ball MD PCP: Vijay Mason MD Status: ADM IN Study: Chest PA and Lateral Date of Exam: 10/02/18 Exam# [id number] Ordering Dr: Lion Green STUDY: X-RAY CHEST [...] Stiven Ball MD at 13:51 EST Tel [phone], Service support , CC: ABISAI Green; Vijay Mason MD Ink Printer: Signed PARTIAL THROMBOPLAST Collected: 10/01/2018 Status: F Source: [place] TIME 8:22 PM [facility] REPOSITORY TYPE CODE TESTS RESULT OUT OF REFERENCE UNITS RANGE LAB L300.4310 24.1-36.2 Seconds High PTT 72.6 Performed By: #### L300.4310 #### [facility] [address] [place] [address]. [place], [address] 12 LEAD ELECTROCARDIOGRAM Observed: 10/01/2018 Status: F Source: MARK 2:55 PM [facility] REPOSITORY [facility] Cardiovascular Services [address] [place] [address] 12 Lead EKG 09/28/182 MR#: [id number] Acct: [id number] Name: DOUG CAST Brittani Rep #: [id number] : 1935 83 From: Rah Barba MD Attending Dr: Maureen Siddiqui Status: ADM IN Ordering Dr: Baltazar Sultana MD Date: 09/28/18 Location: [facility] Sex: M C Admitted: 09/29/18 Test [...] Abnormal ECG Confirmed by BRET MACK, RAH ([id number]), dictionary editor SARY MA (56) on 10/01/2018 2:55:25 PM Referred By: JW Confirmed By:RAH BARBA MD 10/01/18 1455 Date Rah Barba MD CC: Maureen Siddiqui; BALTAZAR SULTANA MD; Vijay Mason MD Signed PARTIAL THROMBOPLAST Collected: 10/01/2018 Status: F Source: [place] TIME 2:00 PM [facility] REPOSITORY TYPE CODE TESTS RESULT OUT OF REFERENCE UNITS RANGE LAB L300.4310 24.1-36.2 Seconds High PTT 76.0 Performed By: #### L300.4310 #### [facility] [address] [place], [address] MODIFIED BARIUM Observed: 10/01/2018 Status: F Source: [place] SWALLOW STUDY 1:41 PM [facility] REPOSITORY [facility] Speech Pathology [address] [place] [address] Modified Barium Swallow Study MR#: [id number] Acct: [id number] Name: CASEYDOUG HUDSON Rep #: [id number] : 1935 83 From: Nohemy Booth M.A. [facility]DUBBING MACHINE OPERATOR PRIMARY / SECONDARY DIAGNOSIS: HCAP/dysphagia REFERRING PHYSICIAN: [...] Pt is an 83 YOM admitted to [facility] on 09/29/2018 d/t shortness of breath, workup revealed sepsis with bacteremia secondary to gram positive pneumonia, atrial fibrillation w/ RVR, metabolic encephalopathy. Pt. known to [facility] DUBBING MACHINE OPERATOR department from admission earlier this year (Jul), [...] 1341 <Electronically signed by Nohemy Booth M.A., CCC-DUBBING MACHINE OPERATOR> Date Nohemy Booth M.A., CCC-DUBBING MACHINE OPERATOR Co-Signature Required for all Medicare patients Date/Time Co-Signature CC: BASIC METABOLIC Collected: 10/01/2018 Status: F Source: [place] PROFILE (BMP) 6:20 AM [facility] REPOSITORY TYPE CODE TESTS RESULT OUT OF [...] GAP 11 Performed By: #### L500.2500 #### [facility] [address] [place], [place], [address] CBC W/DIFF, AUTOMATED Collected: 10/01/2018 Status: F Source: [place] 6:20 AM [facility] REPOSITORY TYPE CODE TESTS RESULT OUT OF [...] Lymph 0.24 Performed By: #### L100.0100 #### [facility] [address] [facility] [address] PARTIAL THROMBOPLAST Collected: 10/01/2018 Status: F Source: [place] TIME 6:20 AM [facility] REPOSITORY TYPE CODE TESTS RESULT OUT OF REFERENCE UNITS RANGE LAB L300.4310 24.1-36.2 Seconds High PTT 84.3 Performed By: #### L300.4310 #### [facility] [address] [facility] [address] MAGNESIUM Collected: 10/01/2018 Status: F Source: MARK 6:20 AM [facility] REPOSITORY Order Comment: Comments: ok to add on TYPE CODE TESTS RESULT OUT OF RANGE REFERENCE UNITS LAB L501.5200 1.6-2.6 mg/dL Normal MG 1.8 Performed By: #### L501.5200 #### [facility] [address] [place], [address] PHOSPHORUS Collected: 10/01/2018 Status: F Source: MARK 6:20 AM [facility] REPOSITORY Order Comment: Comments: ok to add on TYPE CODE TESTS RESULT OUT OF RANGE REFERENCE UNITS LAB L501.2300 2.5-4.9 mg/dL Normal PHOS 3.8 Performed By: #### L501.2300 #### [facility] [address] [place], [address] SWALLOWING FUNCTION Observed: 10/01/2018 Status: F Source: [place] W/VIDEO 12:00 AM [facility] REPOSITORY [facility] Imaging Services [address] [place] [address] Swallowing Function w/Video MR#: [id number] Acct: [id number] Name: DOUG CAST Rep #: [id number] : 1935 M 83 From: Stiven Ball MD PCP: Vijay Mason MD Status: ADM IN Study: Swallowing Function w/Video Date of Exam: 10/01/18 Exam# [id number] Ordering Dr: Maureen Siddiqui STUDY: SWALLOWING STUDY [...] Stiven Ball MD at 11:40 EST Tel [phone], Service support , CC: Maureen Siddiqui; Vijay Mason MD Ink Printer: Signed Observed: 09/30/2018 Status: F Source: MARK CULTURE, BLOOD (WB) 4:50 PM [facility] REPOSITORY Has pt arrived? Y BC No growth in 5 days. Performed By: #### M200.1000 #### [facility] [address] [facility]. [place], [place], [address] Observed: 09/30/2018 Status: F Source: MARK CULTURE, BLOOD (WB) 4:38 PM [facility] REPOSITORY Has pt arrived? Y BC No growth in 5 days. Performed By: #### M200.1000 #### [facility] [address] [place], [place], [address] ECHOCARDIOGRAM COMPLETE Observed: 09/30/2018 Status: F Source: MARK 4:23 PM [facility] REPOSITORY [facility] Cardiovascular Services [address] [place] [address] Echo Complete 09/30/18 1457 MR#: [id number] Acct: [id number] Name: DOUG CAST Rep #: [id number] : 1935 83 From: Rah Barba MD [...] Ordering Physician: Chase Zavala Referring Physician: VIJAY MASNO Performed By: Carla Reardon RDCS 09/30/18 1623 Date Rah Barba MD CC: Maureen Siddiqui; Chase Zavala MD; Vijay Mason MD Date Dictated: 09/30/18 1457 Date Transcribed: 09/30/18 1623 Ink Printer: Signed CONSULTATION Observed: 09/30/2018 Status: F Source: MARK 11:49 AM [facility] REPOSITORY [facility] Medical Records Department [address] [place] [address] Consultation 09/30/18 1146 MR#: [id number] Acct: [id number] Name: DOUG CAST Rep #: [id number] : 1935 83 From: Oscar Wilson MD PCP: Vijay Mason MD Status: ADM IN Location: [place] [address] Reason for Consult: Pneumococcal pneumonia with bacteremia [...] 09/30/2018 Status: F Source: MARK 5:14 AM [facility] REPOSITORY TYPE CODE TESTS RESULT OUT OF [...] LYMPHOPENIA NOTED Performed By: #### L100.0100 #### [facility] [address] [facility] [place], [place], [address] PARTIAL THROMBOPLAST Collected: 09/30/2018 Status: F Source: MARK TIME 5:14 AM [facility] REPOSITORY Order Comment: Comments: Heparin gtt TYPE CODE TESTS RESULT OUT OF REFERENCE UNITS RANGE LAB L300.4310 24.1-36.2 Seconds High PTT 70.6 Performed By: #### L300.4310 #### [facility] [address] [place], [place], [address] BASIC METABOLIC Collected: 09/30/2018 Status: F Source: MARK PROFILE (BMP) 5:14 AM [facility] REPOSITORY TYPE CODE TESTS RESULT OUT OF [...] GAP 10 Performed By: #### L500.2500 #### [facility] [address] [place], [place], [address] PARTIAL THROMBOPLAST Collected: 09/29/2018 Status: F Source: MARK TIME 9:15 PM [facility] REPOSITORY Order Comment: Comments: HEPARIN DRIP VRI TYPE CODE TESTS RESULT OUT OF REFERENCE UNITS RANGE LAB L300.4310 24.1-36.2 Seconds High PTT 62.6 Performed By: #### L300.4310 #### [facility] [address] [place], [address] PARTIAL THROMBOPLAST Collected: 09/29/2018 Status: F Source: MARK TIME 3:18 PM [facility] REPOSITORY Order Comment: REDRAW. PREVIOUS SPECIMEN WAS REJECTED FOR TESTING DUE TO HEMOLYSIS. SPECIMEN WAS DISCARDED. 09/29/18 1549 Sarwat Galdamez. TYPE CODE TESTS RESULT OUT OF REFERENCE UNITS RANGE LAB L300.4310 24.1-36.2 Seconds High PTT 69.4 Performed By: #### L300.4310 #### [facility] [address] [facility] [place], [address] CONSULTATION Observed: 09/29/2018 Status: F Source: [place] 1:46 PM [facility] REPOSITORY [facility] Medical Records Department [address] [place] [address] Consultation 09/29/18 1335 MR#: [id number] Acct: [id number] Name: DOUG CAST Rep #: [id number] : 1935 83 From: Rah Barba MD PCP: Vijay Mason MD Status: ADM IN Location: [place] [address] Problem List (1) Atrial fibrillation with RVR [...] has been in and out of the [facility] and its associated transitional care unit [...] 93.1 H, Lymph % (Auto) 2.2 L, [place] % (Auto) 4.2, Eos % (Auto) 0.1, [...] Clarity Cloudy, Urine pH 5.0, Ur Specific [place] 1.020, Urine Protein 500 H, Urine Glucose [...] was discussed with the patient and his [id number] who was present at this time. This note was generated using a voice recognition system and there may be incorrect words, spelling or punctuation that were not noted when reviewing the office note prior to saving. 09/29/18 1626 <Electronically signed by Rah Barba MD> Date Rah Barab MD Cosigner Signature (if applicable): Date CC: Rah Barba MD; Vijay Mason MD Signed STREP Observed: 09/29/2018 Status: F Source: MARK PNEUMONIAE ANTIG(UR,CSF) 10:30 AM [facility] REPOSITORY Order Date: 09/29/18 Has pt [...] pneumonia Ag Performed By: #### M300.4600 #### [facility] [address] [facility] [place], [address] Observed: 09/29/2018 Status: F Source: MARK LEGIONELLA ANTIGEN 10:30 AM [facility] URINE REPOSITORY Order Date: 09/29/18 Has pt arrived? Y Specimen Source: URINE, CATHETER Legionella, UR Legionella Antigen result interpretation: Negative Presumptive negative for Legionella pneumophila serogroup 1 antigen in urine, suggesting no recent or current infection. Legionella Ag, Urine Negative (See interpretation below) Performed By: #### M300.4500 #### [facility] [address] [place], [address] PARTIAL THROMBOPLAST Collected: 09/29/2018 Status: F Source: MARK TIME 8:46 AM [facility] REPOSITORY TYPE CODE TESTS RESULT OUT OF REFERENCE UNITS RANGE LAB L300.4310 24.1-36.2 Seconds High PTT 69.4 Performed By: #### L300.4310 #### [facility] [address] [place], [address] CBC-COMPLETE BLOOD CNT Collected: 09/29/2018 Status: F Source: MARK NO DIFF 3:14 AM [facility] REPOSITORY TYPE CODE TESTS RESULT OUT OF [...] MPV 11.1 Performed By: #### L100.0500 #### [facility] [address] [place], [address] BASIC METABOLIC Collected: 09/29/2018 Status: F Source: [place] PROFILE (BMP) 3:14 AM [facility] REPOSITORY TYPE CODE TESTS RESULT OUT OF [...] GAP 10 Performed By: #### L500.2500 #### [facility] [address] [facility] [place], [address] LACTIC ACID Collected: 09/29/2018 Status: F Source: MARK 3:14 AM [facility] REPOSITORY TYPE CODE TESTS RESULT OUT OF RANGE REFERENCE UNITS LAB L503.6005 0.4-2.0 mmol/L Normal LACTIC ACID 1.1 Performed By: #### L503.6005 #### [facility] [address] [facility] [place], [place], [address] BNP,B-TYPE NATRIURETIC Collected: 09/29/2018 Status: F Source: MARK PEPTIDE 3:14 AM [facility] REPOSITORY Order Comment: Comments: from blood in lab. TYPE CODE TESTS RESULT OUT OF RANGE REFERENCE UNITS LAB L503.6620 0-100 pg/mL High B-TYPE 236.5 ARNOLD PEP Performed By: #### L503.6620 #### [facility] [address] [facility] [place], [address] PROTHROMBIN TIME W/INR Collected: 09/29/2018 Status: F Source: MARK 2:20 AM [facility] REPOSITORY TYPE CODE TESTS RESULT OUT OF RANGE REFERENCE UNITS LAB L300.4150 11.7-14.9 SECONDS High PROTIME 19.2 LAB L300.4200 Normal INR 1.6 Performed By: #### L300.3900, L300.4310 #### [facility] [address] [facility] [place], [address] PARTIAL THROMBOPLAST Collected: 09/29/2018 Status: F Source: MARK TIME 2:20 AM [facility] REPOSITORY TYPE CODE TESTS RESULT OUT OF REFERENCE UNITS RANGE LAB L300.4310 24.1-36.2 Seconds High PTT 58.1 Performed By: #### L300.3900, L300.4310 #### [facility] [address] [place], [address] HISTORY AND PHYSICAL Observed: 09/29/2018 Status: F Source: [place] EXAM 1:57 AM [facility] REPOSITORY [facility] Medical Records Department [address] [place] [address] History and Physical 09/29/18 0005 MR#: [id number] Acct: [id number] Name: DOUG CAST Rep #: [id number] : 1935 83 From: Chase Zavala MD PCP: Vijay Mason MD Status: ADM IN Y Location: [place] [address] Problem List (1) Acute kidney injury superimposed [...] the name of the president of the [place]. Psych/Mental Status: Normal Affect, Appropriate Vital Signs [...] (Auto) Neut % (Auto) Lymph % (Auto) [place] % (Auto) POC Glucose POC Glucose 122 [...] failure. Trend CBC and BMP. Atrial fibrillation [id number] Score: Age >=75 (2 points) ; HTN [...] fib. Code Visit Inpatient E AND M: 06884 Init Hosp L3 09/29/18 0157 <Electronically signed by Chase Zavala MD> Date Chase Zavala MD Cosigner Signature: Date (if applicable) CC: Chase Zavala MD; Vijay Mason MD Signed EMERGENCY DEPARTMENT Observed: 09/29/2018 Status: F Source: [place] SUMMARY 12:37 AM [facility] REPOSITORY [facility] Medical Records Department [address] [place] [address] Emergency Department Summary 09/28/18 2254 MR#: [id number] Acct: [id number] Name: DOUG CAST Rep #: [id number] : 1935 83 From: Baltazar Sultana MD [...] (Auto) Neut % (Auto) Lymph % (Auto) [place] % (Auto) - Rhythm Strip Rhythm Strip: [...] Disposition - Plan for ED Patient: Disposition: [facility] Chief Complaint: Alt LOC Diagnosis: HCAP [...] your Primary Care Provider. Call [facility] ([phone]) or report to the closest Emergency Room. Call 911 if necessary. 09/29/18 0037 <Electronically signed by Baltazar Sultana MD> Date Baltazar Sultana MD Cosigner Signature (If Indicated): Date CC: Vijay Mason MD URINALYSIS, COMPLETE Collected: 09/28/2018 Status: F Source: MARK 11:55 PM [facility] REPOSITORY Order Comment: Order Date: 09/28/18 How was Urine Obtained? VICE PRESIDENT RESEARCH TO SPECIFY TYPE CODE TESTS RESULT OUT [...] AMORPHOUS 3+ Performed By: #### L400.0001 #### [facility] [address] [facility] [place], [address] CHEST 1 VIEW Observed: 09/28/2018 Status: F Source: MARK (PORTABLE) 10:53 PM [facility] REPOSITORY [facility] Imaging Services [address] [place] [address] Chest 1 View (Portable) MR#: [id number] Acct: [id number] Name: DOUG CAST Rep #: [id number] : 1935 M 83 From: Johnathan Wakefield MD PCP: Vijay Mason MD Status: REG ER Study: Chest 1 View (Portable) Date of Exam: 09/28/18 Exam# [id number] Ordering Dr: Baltazar Sultana MD STUDY: X-RAY [...] CC: BALTAZAR SULTANA MD; Vijay Mason MD Ink Printer: Signed BRAIN/HEAD WITHOUT Observed: 09/28/2018 Status: F Source: MARK CONTRAST 10:53 PM [facility] REPOSITORY [facility] Imaging Services [address] [place] [address] Brain/Head without Contrast MR#: [id number] Acct: [id number] Name: DOUG CAST Rep #: [id number] : 1935 M 83 From: Johnathan Wakefield MD PCP: Vijay Mason MD Status: REG ER Study: Brain/Head without Contrast Date of Exam: 09/28/18 Exam# [id number] Ordering Dr: Baltazar Sultana MD STUDY: CT [...] CC: BALTAZAR SULTANA MD; Vijay Mason MD Ink Printer: Signed Observed: 09/28/2018 Status: F Source: MARK CULTURE, BLOOD (WB) 10:38 PM [facility] REPOSITORY GRAM STAIN = GRAM POSITIVE COCCI [...] 0.5 S (NF) indicates non-formulary drug at [facility]. Approval by Infectious Disease Specialist required before non-formulary drugs may be ordered and/or dispensed. * CLSI guidelines does not recommend testing of cephalosporins. This interpretation is deduced from Beta-lactam/penicillin results. Performed By: #### M200.1000, M100.636 #### [facility] [address] [place], [address] Observed: 09/28/2018 Status: C Source: [facility] GPC ID 10:38 PM [facility] REPOSITORY BC GPC ID Copy of report sent to Infection Control Printer [id number] 09/29/18 1427 NSTANSLOS. Staphylococcus sp. Not Detected Enterococcus sp. Not Detected Streptococcus spp. Streptococcus pneumoniae Listeria spp Not Detected Mylene/vanB Not Detected mecA Not Detected NAAT METHOD Testing was performed using nucleic acid amplification ORGANISM 1: Streptococcus pneumoniae Performed By: #### M200.1000, M100.636 #### [facility] [address] [place], [address] CBC W/DIFF, AUTOMATED Collected: 09/28/2018 Status: F Source: [place] 10:33 PM [facility] REPOSITORY TYPE CODE TESTS RESULT OUT OF [...] LYMPHOPENIA NOTED Performed By: #### L100.0100 #### [facility] [address] [place], [place] [address]naomi Gibbons. [place], [place], [address] BEDSIDE GLUCOSE Collected: 09/28/2018 Status: F Source: [place] 10:33 PM [facility] REPOSITORY TYPE CODE TESTS RESULT OUT OF REFERENCE UNITS RANGE LAB L501.080 70-110 mg/dL High BEDSIDE GLU 122 Result Comment: MANAGEMENT OF PATIENT CARE PER NURSING PROTOCOL Performed By: #### L501.080 #### [facility] Point of Care [address] [place], [place] [address] BASIC METABOLIC Collected: 09/28/2018 Status: F Source: [place] PROFILE (BMP) 10:33 PM [facility] REPOSITORY TYPE CODE TESTS RESULT OUT OF [...] 9 Performed By: #### L500.2500, L501.4010 #### [facility] [facility] [place], [address] TROPONIN-I Collected: 09/28/2018 Status: F Source: [place] 10:33 PM [facility] REPOSITORY TYPE CODE TESTS RESULT OUT OF RANGE REFERENCE UNITS LAB L501.4010 <0.045 ng/mL Normal < 0.015 TROPONIN-I Result Comment: TROPONIN-I EXPECTED VALUES <0.045 Negative 0.045 - 0.590 Consistent with Cardiac Damage > OR = 0.600 Critical Value Not every elevated troponin is indicative of NM. These values should be used with clinical judgement in examining the patient's clinical picture for diagnosis. To establish a diagnosis of NM versus myocardial injury, there must be a demonstrated rise and/or fall in the troponin values, in addition to ischemic symptoms, EKG changes, new regional wall motion abnormality, and/or angiographical evidence. PLEASE NOTE: REFERENCE RANGES EDITED 18 Performed By: #### L500.2500, L501.4010 #### [facility] [address] [place], [address] LACTIC ACID Collected: 09/28/2018 Status: F Source: [place] 10:33 PM [facility] REPOSITORY Order Comment: Yes/No query for Sepsis Lactate Rule Y TYPE CODE TESTS RESULT OUT OF REFERENCE UNITS RANGE LAB L503.6005 0.4-2.0 mmol/L High LACTIC ACID 2.1 Result Comment: Critical Result(s) Called at: 23:16:10 09/28/2018 by: Cecilia Chew Performed By: #### L503.6005 #### [facility] [address] [place], [address] MAGNESIUM Collected: 09/28/2018 Status: F Source: [place] 10:33 PM [facility] REPOSITORY TYPE CODE TESTS RESULT OUT OF RANGE REFERENCE UNITS LAB L501.5200 1.6-2.6 mg/dL Normal MG 1.7 Performed By: #### L501.5200, L501.9520 #### [facility] [address] [place], [address] THYROID STIM HORMONE Collected: 09/28/2018 Status: F Source: [place] (TSH) 10:33 PM [facility] REPOSITORY TYPE CODE TESTS RESULT OUT OF RANGE REFERENCE UNITS LAB L501.9520 0.358-3.74 uIU/mL Normal TSH 1.47 Performed By: #### L501.5200, L501.9520 #### [facility] [address] [place], [address] Observed: 09/28/2018 Status: F Source: [place] CULTURE, BLOOD (WB) 10:33 PM [facility] REPOSITORY BC GRAM STAIN = GRAM POSITIVE COCCI CHAINS RESULTS CALLED TO Chuy HERNANDEZ 09/29/18 Erendira [place]. REPORT READ BACK BY LUIS FELIPE. PLEASE REFER TO [id number] FOR SENSITIVITY RESULTS Copy of report sent to Infection Control Printer [id number] 09/30/18 0939 BLUCAS. AEROBIC BOTTLE NO GROWTH 5 DAYS. ORGANISM 1: Streptococcus pneumoniae Amount Growth Growth Performed By: #### M200.1000 #### [facility] [address] [place], [address] CBC W/DIFF, AUTOMATED Collected: 09/23/2018 Status: F Source: [place] 3:25 PM [facility] REPOSITORY TYPE CODE TESTS RESULT OUT OF [...] Lymph 0.67 Performed By: #### L100.0100 #### [facility] [address] [place], [address] COMPREHENSIVE METABOLIC Collected: 09/23/2018 Status: F Source: [place] LAST 3:25 PM [facility] REPOSITORY TYPE CODE TESTS RESULT OUT OF [...] GAP 12 Performed By: #### L500.4050 #### [facility] [address] [place], [address] [place] ABS GR + CBC Collected: 09/18/2018 Status: F Source: [place] 11:14 AM [facility] REPOSITORY TYPE CODE TESTS RESULT OUT OF REFERENCE UNITS RANGE LAB WWBC 3.70-11.00 k/uL [place] WBC 6.75 LAB WRBC 4.20-6.00 m/uL Low [place] RBC 3.64 LAB WHGB 13.0-17.0 g/dL Low [place] Hemoglobin 10.6 LAB WHCT 39.0-51.0 % Low [place] Hematocrit 35.2 LAB WMCV 80.0-100.0 fL [place] MCV 96.7 LAB WMCH 26.0-34.0 pg [place] MCH 29.1 LAB WMCHC 30.5-36.0 g/dL Low [place] MCHC 30.1 LAB WRDW 11.5-15.0 % [place] RDW 14.9 LAB WPLT 150-400 k/uL [place] Platelet Cnt 152 LAB WMPV 9.0-12.7 fL [place] MPV 10.7 Result Comment: Test performed at: [facility], [address] [place] [address]. LAB ABGRAN 1.45-7.50 k/uL Absol Gran 5.18 Count HOME HEALTH PROGRESS Observed: 09/11/2018 Status: F Source: [place] NOTE 9:15 PM [facility] REPOSITORY [facility] Medical Records Department [address] [place] [address] Home Health Progress Note Oybf-ya-Nauz Encounter Encounter Date: 09/11/182113 MR#: [id number] Acct: [id number] Name: DOUG CAST Brittani Rep #: [id number] : 1935 83 From: Christiano Boss MD PCP: Vijay Mason MD Status: ADM IN Location: [place] [address] Home Health Note - Plan Overview of [...] (Chronic) - Requirements and Reasons Disciplines Needed/Ordered: Care Home, Physical Therapy Reason for Disciplines: Disease Specific [...] 09/11/2018 Status: F Source: [place] 9:14 PM [facility] REPOSITORY [facility] Medical Records Department [address] [place] [address] Discharge Summary 09/11/182111 MR#: [id number] Acct: [id number] Name: DOUG CAST Rep #: [id number] : 1935 83 From: Christiano Boss MD PCP: Vijay Mason MD Status: ADM IN Y Location: [place] [address] Discharge Date and Diagnosis - Problem List [...] RDW 16.5 H Consultations 08/19/18 15:03 Consult: Onc/Wound/manager laundry Routine Comment: Reason for Consult:: CELLULITES BLE'S [...] 09/11/2018 Status: F Source: [place] 9:12 PM [facility] REPOSITORY [facility] Medical Records Department [address] [place] [address] Instructions for Home/Discharge Instructions 09/11/182110 MR#: [id number] Acct: [id number] Name: DOUG CAST Rep #: [id number] : 1935 83 From: Christiano Boss MD [...] 09/11/2018 Status: F Source: [place] 5:10 AM [facility] REPOSITORY TYPE CODE TESTS RESULT OUT OF [...] Lymph 0.69 Performed By: #### L100.0100 #### [facility] [address] [facility] [place], [place], [address] BASIC METABOLIC Collected: 09/11/2018 Status: F Source: [place] PROFILE (BMP) 5:10 AM [facility] REPOSITORY TYPE CODE TESTS RESULT OUT OF [...] GAP 7 Performed By: #### L500.2500 #### [facility] [address] [facility] [place], [place], [address] BASIC METABOLIC Collected: 09/03/2018 Status: F Source: [place] PROFILE (BMP) 5:45 AM [facility] REPOSITORY TYPE CODE TESTS RESULT OUT OF [...] GAP 5 Performed By: #### L500.2500 #### [facility] [address] [place], [address] CBC W/DIFF, AUTOMATED Collected: 09/03/2018 Status: F Source: [place] 5:45 AM [facility] REPOSITORY TYPE CODE TESTS RESULT OUT OF [...] MACROCYTE RARE Performed By: #### L100.0100 #### [facility] [address] [place], [place], [address] BASIC METABOLIC Collected: 08/30/2018 Status: F Source: [place] PROFILE (BMP) 5:05 AM [facility] REPOSITORY TYPE CODE TESTS RESULT OUT OF [...] GAP 6 Performed By: #### L500.2500 #### [facility] [address] [place], [address] BASIC METABOLIC Collected: 08/27/2018 Status: F Source: [place] PROFILE (BMP) 6:44 AM [facility] REPOSITORY TYPE CODE TESTS RESULT OUT OF [...] 8 GAP Performed By: #### L500.2500 #### [facility] [address] [place], [address] CBC W/DIFF, AUTOMATED Collected: 08/27/2018 Status: F Source: [place] 6:44 AM [facility] REPOSITORY TYPE CODE TESTS RESULT OUT OF [...] Lymph 0.67 Performed By: #### L100.0100 #### [facility] [address] [facility] [place], [address] BASIC METABOLIC Collected: 08/20/2018 Status: F Source: [place] PROFILE (BMP) 5:30 AM [facility] REPOSITORY TYPE CODE TESTS RESULT OUT OF [...] GAP 5 Performed By: #### L500.2500 #### [facility] [address] [place], [address] CBC W/DIFF, AUTOMATED Collected: 08/20/2018 Status: F Source: [place] 5:30 AM [facility] REPOSITORY TYPE CODE TESTS RESULT OUT OF [...] COMMENT SCANNED Performed By: #### L100.0100 #### [facility] [address] [facility] [place], [address] HISTORY AND PHYSICAL Observed: 08/19/2018 Status: F Source: [place] EXAM 8:21 PM [facility] REPOSITORY [facility] Medical Records Department [address] [place] [address] History and Physical 08/19/181957 MR#: [id number] Acct: [id number] Name: DOUG CAST Rep #: [id number] : 1935 83 From: Christiano Boss MD PCP: Vijay Mason MD Status: ADM IN Y Location: [place] [address] Problem List (1) Metabolic encephalopathy Status: Acute [...] with below past medical history presented to [facility] Emergency Department with confusion. 08/14/2018 EKG [...] DISCHARGE SUMMARY Observed: 08/19/2018 Status: F Source: [place] 2:25 PM [facility] REPOSITORY [facility] Medical Records Department [address] [place] [address] Discharge Summary 08/19/18 1311 MR#: [id number] Acct: [id number] Name: DOUG CAST Brittani Rep #: [id number] : 1935 83 From: Jose Guadalupe Barton MD PCP: Vijay Mason MD Status: ADM IN Location: [place] [address] Discharge Date and Diagnosis - Problem List [...] fracture or subluxation. Consultations 08/15/18 00:18 Consult: Onc/Wound/manager laundry Routine Comment: Reason for Consult:: wounds on [...] In 3- 5 days after discharge Disposition: Care Home facility Minutes spent on discharge:: 35 Patient Condition:: Good Medical Necessity - Tobacco Use Smoking Status: Never smoker Meaningful Use Info Meaningful Use Diagnoses (Choose all that apply): None applicable Code Visit Inpatient E AND M: 64553 Disch Hosp 08/19/18 1425 <Electronically signed by Jose Guadalupe Barton MD> Date Jose Guadalupe Barton MD Cosigner Signature (if applicable): Date CC: Jose Guadalupe Barton MD; Vijay Mason MD Signed TRANSFER TO EXTENDED Observed: 08/19/2018 Status: F Source: [facility] 1:09 PM [facility] REPOSITORY [facility] Medical Records Department [address] [place] [address] Transfer to [facility] MR#: [id number] Acct: [id number] Name: DOUG CAST Rep #: [id number] : 1935 83 From: Jose Guadalupe Barton MD PCP: Vijay Mason MD Status: ADM IN DOUG CAST (Patient) (Health Ins. Claim No.) (Day of Discharge to Facility) Certification of patient admission REQUIRED AT TIME OF ADMISSION. 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 Continue Ensure Enlive w/ medpass as tolerated. [...] 08/19/2018 Status: F Source: [place] 12:32 PM [facility] REPOSITORY [facility] Cardiovascular Services [address] [place] [address] 12 Lead EKG 08/14/18 1900 MR#: [id number] Acct: [id number] Name: DOUG CAST Rep #: [id number] : 1935 83 From: Rah Barba MD Attending Dr: Jose Guadalupe Barton MD Status: ADM IN Ordering Dr: Ata Heath MD Date: 08/14/18 Location: [facility] Sex: M C Admitted: 08/14/18 Test Reason [...] Abnormal ECG Confirmed by BRET MACK, RAH ([id number]), dictionary editor LINO HOYT ([id number]) on 08/19/2018 12:32:25 PM Referred By: Confirmed By:RAH BARBA MD 08/19/18 1232 Date Rah Barba MD CC: Jose Guadalupe Barton MD; Ata Heath MD; Vijay Mason MD Signed BASIC METABOLIC Collected: 08/19/2018 Status: F Source: [place] PROFILE (BMP) 5:50 AM [facility] REPOSITORY TYPE CODE TESTS RESULT OUT OF [...] GAP 7 Performed By: #### L500.2500 #### [facility] [address] [place] [address] [address] [place], [place], [address] BASIC METABOLIC Collected: 08/18/2018 Status: F Source: [place] PROFILE (BMP) 6:50 AM [facility] REPOSITORY TYPE CODE TESTS RESULT OUT OF [...] GAP 6 Performed By: #### L500.2500 #### [facility] [address] [place], [address] BASIC METABOLIC Collected: 08/17/2018 Status: F Source: [place] PROFILE (BMP) 6:17 AM [facility] REPOSITORY TYPE CODE TESTS RESULT OUT OF [...] GAP 8 Performed By: #### L500.2500 #### [facility] [address] [place], [address] CREATININE, URINE Collected: 08/16/2018 Status: F Source: [place] (RAND[place]) 8:15 PM [facility] REPOSITORY Order Comment: Has pt arrived? Y TYPE CODE TESTS RESULT OUT OF RANGE REFERENCE UNITS LAB L501.1200 NO RANGE EST. mg/dL Normal UR CREAT 84.20 Performed By: #### L501.1200 #### [facility] [address] [place], [address] URINE SODIUM Collected: 08/16/2018 Status: F Source: [place] 8:15 PM [facility] REPOSITORY Order Comment: Has pt arrived? Y TYPE CODE TESTS RESULT OUT OF RANGE REFERENCE UNITS LAB L501.5500 Not Establ. mmol/L Normal UR NA 53 Performed By: #### L501.5500 #### [facility] [address] [place], [address] CONSULTATION Observed: 08/16/2018 Status: F Source: [place] 10:56 AM [facility] REPOSITORY [facility] Medical Records Department [address] [place] [address] Consultation 08/15/18 1132 MR#: [id number] Acct: [id number] Name: DOUG CAST Rep #: [id number] : 1935 83 From: Bernardino Drake MD PCP: Vijay Mason MD Status: ADM IN Y Location: [place] [address] Reason for Consult Date of Consultation: 08/15/18 [...] 08/16/2018 Status: F Source: [place] 7:08 AM [facility] REPOSITORY TYPE CODE TESTS RESULT OUT OF [...] LYMPHOPENIA NOTED. Performed By: #### L100.0100 #### [facility] [address] [place], [address] COMPREHENSIVE METABOLIC Collected: 08/16/2018 Status: F Source: [facility] 7:08 AM [facility] REPOSITORY TYPE CODE TESTS RESULT OUT OF [...] 7 Performed By: #### L500.4050, L501.3620 #### [facility] [address] [place], [address] CPK TOTAL, CREATINE Collected: 08/16/2018 Status: F Source: [place] KINASE 7:08 AM [facility] REPOSITORY TYPE CODE TESTS RESULT OUT OF RANGE REFERENCE UNITS LAB L501.3620 39-308 U/L High CPK TOTAL 484 Performed By: #### L500.4050, L501.3620 #### [facility] [address] [place], [address] BRAIN/HEAD WITHOUT Observed: 08/16/2018 Status: F Source: [place] CONTRAST 12:00 AM [facility] REPOSITORY [facility] Imaging Services [address] [place] [address] Brain/Head without Contrast MR#: [id number] Acct: [id number] Name: DOUG CAST Brittani Rep #: [id number] : 1935 M 83 From: Boris Valderrama MD PCP: Vijay Mason MD Status: ADM IN Study: Brain/Head without Contrast Date of Exam: 08/16/18 Exam# [id number] Ordering Dr: Pablito Vela MD STUDY: CT [...] CC: Pablito Vela MD; Vijay Mason MD Ink Printer: Signed Observed: 08/15/2018 Status: F Source: [place] CULTURE, URINE 2:58 PM [facility] REPOSITORY Urine Culture Culture exhibits no growth. Performed By: #### M100.0650 #### [facility] [address] [place], [place], [address] MRSA WOUND DNA BY Collected: 08/15/2018 Status: F Source: [place] PCR 10:45 AM [facility] REPOSITORY Order Comment: Order Date: 08/15/18 Specimen Source? Leg wound left TYPE CODE TESTS RESULT OUT OF RANGE REFERENCE UNITS LAB L8200.1100 Negative Normal MRSA Negative RESULT LAB L8200.1150 Negative High SA RESULT POSITIVE Performed By: #### L8200.1075 #### [facility] [address] [place], [address] CONSULTATION Observed: 08/15/2018 Status: F Source: [place] 10:36 AM [facility] REPOSITORY [facility] Medical Records Department [address] [place] [address] Consultation 08/15/18 1018 MR#: [id number] Acct: [id number] Name: DOUG CAST Rep #: [id number] : 1935 83 From: Zakia Meyer MD PCP: Vijay Mason MD Status: ADM IN Y Location: [address] ADDENDUM by Zakia Meyer MD on [...] back in 1999. Patient was brought to [facility] emergency room yesterday because he [...] Reason: FEVER [facility] Last Admin: 08/15/18 09:35 Dose: Not Given [facility]ir[facility] ([facility]cotrin) [facility] Last Admin: 08/15/18 09:35 Dose: Not Given Ergocalciferol (Vitamin D) 50,000 unit PO BURGOS [facility] Finasteride (Proscar) 5 mg PO DAILY [facility] Last Admin: 08/15/18 09:36 Dose: Not Given Heparin Sodium (Porcine) (Heparin Na) 5,000 unit SC Q12 [facility] Last Admin: 08/15/18 09:49 Dose: 5,000 unit Hydralazine HCl (Apresoline Iv) 5 mg IV Q4H PRN PRN PRN Reason: SBP > 160 Piperacillin Sod/Tazobactam Sod (Zosyn) 3.375 gm in 50 mls @ 12.5 mls/hr IV Q12 [facility] Last Admin: 08/15/18 09:48 Dose: 12.5 mls/hr Vancomycin IV Pharmacy to Dose (1,000 ea/ Sodium Chloride) 500 mls @ 250 mls/hr IV X1 PRN; Protocol Sodium Chloride () 1,000 mls @ 100 mls/hr IV .Q10H [facility] Stop: 08/15/18 10:29 Last Admin: 08/15/18 01:17 Dose: 100 mls/hr Sodium Chloride () 1,000 mls @ 999 mls/hr IV .Q1H1M ONE Stop: 08/15/18 10:37 Last Admin: 08/15/18 09:52 Dose: 999 mls/hr Sodium Chloride () 1,000 mls @ 125 mls/hr IV .Q8H [facility] Last Admin: 08/15/18 09:53 Dose: 125 mls/hr Labetalol HCl (Trandate) 200 mg PO BID [facility] Last Admin: 08/15/18 09:36 Dose: Not Given Magnesium Hydroxide (Milk Of Magnesia) 30 ml PO DAILY PRN PRN Reason: Constipation Nutritional Formula (Lactose Free) (Ensure Enlive) 120 ml PO 4X/DAY [facility] Last Admin: 08/15/18 09:36 Dose: Not Given Ondansetron HCl (Zofran) 4 mg IV Q8H PRN PRN PRN Reason: NAUSEA Pravastatin Sodium (Pravachol) 40 mg PO QHS [facility] Sodium Chloride () 5 - 30 [...] care with Dr. Vela. Zakia Meyer MD [phone] 08/15/18 1032 <Electronically signed by Zakia Meyer MD> Date Zakia Meyer MD Cosigner Signature (if applicable): Date CC: Zakia Meyer MD; Bernardino Drake MD; Vijay Mason MD Signed KIDNEY AND BLADDER Observed: 08/15/2018 Status: F Source: [place] 10:33 AM [facility] REPOSITORY [facility] Imaging Services [address] [place] [address] Kidney and Bladder MR#: [id number] Acct: [id number] Name: DOUG CAST Rep #: [id number] : 1935 M 83 From: Dionte Castillo DO PCP: Vijay Mason MD Status: ADM IN Study: Kidney and Bladder Date of Exam: 08/15/18 Exam# [id number] Ordering Dr: Zakia Meyer MD STUDY: RENAL [...] Dionte Castillo DO at 16:08 EDT Tel [phone], Service support , CC: Zakia Meyer MD; Vijay Mason MD Ink Printer: Signed AMMONIA Collected: 08/15/2018 Status: F Source: [place] 9:38 AM [facility] REPOSITORY TYPE CODE TESTS RESULT OUT OF RANGE REFERENCE UNITS LAB L503.5510 11-32 umol/L Normal AMMONIA 18.0 Performed By: #### L503.5510 #### [facility] [address] [place], [place], [address] BASIC METABOLIC Collected: 08/15/2018 Status: F Source: [place] PROFILE (BMP) 5:20 AM [facility] REPOSITORY TYPE CODE TESTS RESULT OUT OF [...] 9 Performed By: #### L500.2500, L501.3620 #### [facility] [address] [place], [address] CPK TOTAL, CREATINE Collected: 08/15/2018 Status: F Source: [place] KINASE 5:20 AM [facility] REPOSITORY TYPE CODE TESTS RESULT OUT OF RANGE REFERENCE UNITS LAB L501.3620 39-308 U/L High CPK TOTAL 890 Performed By: #### L500.2500, L501.3620 #### [facility] [address] [place], [address] LACTIC ACID Collected: 08/15/2018 Status: F Source: [place] 1:33 AM [facility] REPOSITORY TYPE CODE TESTS RESULT OUT OF REFERENCE UNITS RANGE LAB L503.6005 0.4-2.0 mmol/L High LACTIC ACID 2.3 Result Comment: Critical Result(s) Called at: 02:27:05 08/15/2018 by: Cecilia Martin to CDotterer Performed By: #### L503.6005 #### [facility] [address] [place], [address] Observed: 08/15/2018 Status: F Source: [place] CULTURE, BLOOD (WB) 1:23 AM [facility] REPOSITORY BC No growth in 5 days. Performed By: #### M200.1000 #### [facility] [address] [place], [address] HISTORY AND PHYSICAL Observed: 08/15/2018 Status: F Source: [place] EXAM 1:08 AM [facility] REPOSITORY [facility] Medical Records Department [address] [place] [address] History and Physical 08/14/187 MR#: [id number] Acct: [id number] Name: DOUG CAST Rep #: [id number] : 1935 83 From: Chase Zavala MD PCP: Vijay Mason MD Status: ADM IN Location: [place] [id number] ADDENDUM by Chase Zavala MD on 08/15/18 at 0108 Code Visit Elevated troponin patient had elevated troponin at the ED. ED doctor reports consult cardiology. Per conversation between ED doctor and arts administrator or manager which was reported by ED doctor there [...] monitoring. Code Visit Inpatient Ankit AND M: [id number] Init Hosp L3 08/15/18 0037 <Electronically signed by Chase Zavala MD> Date Chase Zavala MD Cosigner Signature: Date (if applicable) CC: Chase Zavala MD; Vijay Mason MD Signed BASIC METABOLIC Collected: 08/15/2018 Status: F Source: MARK PROFILE (BMP) 12:25 AM [facility] REPOSITORY TYPE CODE TESTS RESULT OUT OF [...] [place] 11 Performed By: #### L500.2500 #### [facility] [address] [place], [address] EMERGENCY DEPARTMENT Observed: 08/14/2018 Status: F Source: [place] SUMMARY 11:19 PM [facility] REPOSITORY [facility] Medical Records Department [address] [place] [address] Emergency Department Summary 08/14/182107 MR#: [id number] Acct: [id number] Name: DOUG CAST Rep #: [id number] : 1935 83 From: Ata Heath MD [...] 30 minutes. This note was generated with [employer] dictation software. It may contain incorrect words, [...] problems, contact your Primary Care Provider. Call [facility] ([phone]) or report to the closest Emergency Room. Call 911 if necessary. 08/14/18 9527 <Electronically signed by Ata Heath MD> Date Ata Heath MD Cosigner Signature (If Indicated): Date CC: Vijay Mason MD LACTIC ACID Collected: 08/14/2018 Status: F Source: MARK 9:15 PM [facility] REPOSITORY Order Comment: Yes/No query for Sepsis Lactate Rule Y TYPE CODE TESTS RESULT OUT OF REFERENCE UNITS RANGE LAB L503.6005 0.4-2.0 mmol/L High LACTIC ACID 2.1 Result Comment: CALLED [facility] WITH [facility] 08-14-18 AT 2154PM READ BACK BY SAME Performed By: #### L503.6005 #### [facility] [address] [place], [place], [address] Observed: 08/14/2018 Status: F Source: MARK CULTURE, DEEP WOUND 8:05 PM [facility] REPOSITORY Order Date: 08/14/18 Gram Stain Gram [...] <=1 S (NF) indicates non-formulary drug at [facility]. Approval by Infectious Disease Specialist required before non-formulary drugs may be ordered and/or dispensed. Cult, Anaerobic No anaerobic bacteria isolated. Performed By: #### M100.1500 #### [facility] [address] [place], [place], [address] BRAIN/HEAD WITHOUT Observed: 08/14/2018 Status: F Source: [place] CONTRAST 6:54 PM [facility] REPOSITORY [facility] Imaging Services [address] [place] [address] Brain/Head without Contrast MR#: [id number] Acct: [id number] Name: DOUG CAST Rep #: [id number] : 1935 M 83 From: Dionte Castillo DO PCP: Vijay Mason MD Status: REG ER Study: Brain/Head without Contrast Date of Exam: 08/14/18 Exam# [id number] Ordering Dr: Ata Heath MD STUDY: CT [...] Dionte Castillo DO at 20:58 EDT Tel [phone], Service support , CC: Ata Heath MD; Vijay Mason MD Ink Printer: Signed SPINE CERVICAL Observed: 08/14/2018 Status: F Source: [place] WITHOUT CONTRAS 6:54 PM [facility] REPOSITORY [facility] Imaging Services [address] [place] [address] Spine Cervical without Contras MR#: [id number] Acct: [id number] Name: DOUG CAST Rep #: [id number] : 1935 M 83 From: Dionte Castillo DO PCP: Vijay Mason MD Status: REG ER Study: Spine Cervical without Contras Date of Exam: 08/14/18 Exam# [id number] Ordering Dr: Ata Heath MD STUDY: CT [...] Dionte Castillo DO at 21:04 EDT Tel [phone], Service support , CC: Ata Heath MD; Vijay Mason MD Ink Printer: Signed CHEST 1 VIEW Observed: 08/14/2018 Status: F Source: [place] (PORTABLE) 6:54 PM [facility] REPOSITORY [facility] Imaging Services [address] [place] [address] Chest 1 View (Portable) MR#: [id number] Acct: [id number] Name: DOUG CAST Rep #: [id number] : 1935 M 83 From: Dionte Castillo DO PCP: Vijay Mason MD Status: REG ER Study: Chest 1 View (Portable) Date of Exam: 08/14/18 Exam# [id number] Ordering Dr: Ata Heath MD STUDY: X-RAY [...] Dionte Castillo DO at 21:05 EDT Tel [phone], Service support , CC: Ata Heath MD; Vijay Mason MD Ink Printer: Signed LUMBAR SPINE 2 OR 3 Observed: 08/14/2018 Status: F Source: [place] VIEWS 6:54 PM [facility] REPOSITORY [facility] Imaging Services [address] [place] [address] Lumbar Spine 2 or 3 Views MR#: [id number] Acct: [id number] Name: DOUG CAST Rep #: [id number] : 1935 M 83 From: Dionte Castillo DO PCP: Vijay Mason MD Status: REG ER Study: Lumbar Spine 2 or 3 Views Date of Exam: 08/14/18 Exam# [id number] Ordering Dr: Ata Heath MD STUDY: X-RAY [...] Signed: Dionte CastilloDO at 21:06 EDT Tel [phone], Service support , CC: Ata Heath MD; Vijay Mason MD Ink Printer: Signed CBC W/DIFF, AUTOMATED Collected: 08/14/2018 Status: F Source: MARK 6:45 PM [facility] REPOSITORY TYPE CODE TESTS RESULT OUT OF [...] MORPH C+C Performed By: #### L100.0100 #### [facility] [address] [place], [address] BASIC METABOLIC Collected: 08/14/2018 Status: C Source: [place] PROFILE (BMP) 6:45 PM [facility] REPOSITORY TYPE CODE TESTS RESULT OUT OF [...] 12 Performed By: #### L500.2500, L501.4010 #### [facility] [address] [place], [address] TROPONIN-I Collected: 08/14/2018 Status: F Source: MARK 6:45 PM [facility] REPOSITORY TYPE CODE TESTS RESULT OUT OF RANGE REFERENCE UNITS LAB L501.4010 <0.045 ng/mL High 0.230 TROPONIN-I Result Comment: TROPONIN-I EXPECTED VALUES <0.045 Negative 0.045 - 0.590 Consistent with Cardiac Damage > OR = 0.600 Critical Value Not every elevated troponin is indicative of NM. These values should be used with clinical judgement in examining the patient's clinical picture for diagnosis. To establish a diagnosis of NM versus myocardial injury, there must be a demonstrated rise and/or fall in the troponin values, in addition to ischemic symptoms, EKG changes, new regional wall motion abnormality, and/or angiographical evidence. PLEASE NOTE: REFERENCE RANGES EDITED 18 Performed By: #### L500.2500, L501.4010 #### [facility] [address] [place], [address] CPK TOTAL, CREATINE Collected: 08/14/2018 Status: F Source: [place] KINASE 6:45 PM [facility] REPOSITORY TYPE CODE TESTS RESULT OUT OF RANGE REFERENCE UNITS LAB L501.3620 39-308 U/L High CPK TOTAL 2125 Result Comment: Moderate Hemolysis, Result may be falsely increased. Performed By: #### L501.3620 #### [facility] [address] [place], [address] URINALYSIS, COMPLETE Collected: 08/14/2018 Status: F Source: MARK 5:35 PM [facility] REPOSITORY Order Comment: Order Date: 08/14/18 COLOR [...] 1+ URATE Performed By: #### L400.0001 #### [facility] [address] [facility] [place], [address] CREATININE, URINE Collected: 08/14/2018 Status: F Source: [place] 5:35 PM [facility] REPOSITORY Order Comment: Comments: Sent from ED TYPE CODE TESTS RESULT OUT OF RANGE REFERENCE UNITS LAB L502.0300 NO RANGE EST. mg/dL Normal URINE 253.00 CREAT Performed By: #### L502.0300 #### [facility] [address] [place], [address] URINE SODIUM Collected: 08/14/2018 Status: F Source: [place] 5:35 PM [facility] REPOSITORY Order Comment: Comments: Sent from ED TYPE CODE TESTS RESULT OUT OF RANGE REFERENCE UNITS LAB L501.5500 Not Establ. mmol/L Normal UR NA 55 Performed By: #### L501.5500 #### [facility] [address] [place], [address] PROGRESS Observed: 07/31/2018 Status: COMPLETED Source: [place] 11:32 AM [facility] [place] REPOSITORY HNO ID: [id number] Author: Julisa Paulson (Maria Isabel) MARIA ISABEL Tran Service: (none) Author Type: LICENSED NURSE Type: Progress Notes Filed: 07/31/2018 1:51 PM Note Text: 82 year old male here for INACTIVATED INFLUENZA VACCINE. 0916-2098 Season Patient is identified by name and date of : Yes [] CONTRAINDICATIONS color enhanced section Age less than 6 months? No Allergy to eggs, chicken, chicken feathers, or chicken dander? No Allergy to thimerosal (a preservative) or formaldehyde, gelatin? No History of severe reaction to any vaccine component or a previous dose of influenza vaccination? No History of Guillain-Suffolk Syndrome within 6 weeks after a previous [...] sheet given? Yes See immunization activity in [facility] for details of immunizations adminstered today. Patient age: [age] year old For The 8823-9235 Flu Season 6-35 months old: Fluzone 0.25 [...] time. PROGRESS Observed: 07/31/2018 Status: COMPLETED Source: [place] 11:13 AM [facility] [place] REPOSITORY HNO ID: [id number] Author: Rah Perez Service: (none) Author Type: [...] No jaundice or rash. No petechiae. NEUROLOGIC: reading tutor II-XII are grossly intact. No focal motor weakness. MUSCULOSKELETAL: No muscle wasting. ASSESSMENT/PLAN: (D64.9) Anemia, unspecified type (primary encounter diagnosis) (N18.3) CKD (chronic kidney disease) stage 3, GFR 30-59 ml/min Assessment: -Tolerating and benefiting from Aranesp. -Maintaining appropriate iron levels. Plan: -Will continue every other week CBC/possible Aranesp. -Flu shot today. DO MARK Mendoza ABS GR + CBC Collected: 07/31/2018 Status: F Source: [place] 10:52 AM [facility] REPOSITORY TYPE CODE TESTS RESULT OUT OF REFERENCE UNITS RANGE LAB WWBC 3.70-11.00 k/uL [place] WBC 4.25 LAB WRBC 4.20-6.00 m/uL Low [place] RBC 3.55 LAB WHGB 13.0-17.0 g/dL Low [place] Hemoglobin 10.3 LAB WHCT 39.0-51.0 % Low [place] Hematocrit 34.5 LAB WMCV 80.0-100.0 fL [place] MCV 97.2 LAB WMCH 26.0-34.0 pg [place] MCH 29.0 LAB WMCHC 30.5-36.0 g/dL Low [place] MCHC 29.9 LAB WRDW 11.5-15.0 % [place] High RDW 15.2 LAB WPLT 150-400 k/uL [place] Platelet Cnt 176 LAB WMPV 9.0-12.7 fL [place] MPV 10.5 Result Comment: Test performed at: [facility], [address] [place] [address]. LAB ABGRAN 1.45-7.50 k/uL Absol Gran 3.28 Count MARK ISTAT BMP Collected: 07/31/2018 Status: F Source: [place] 10:52 AM [facility] [place] REPOSITORY TYPE CODE TESTS RESULT OUT OF [...] AND TIBC Collected: 07/31/2018 Status: F Source: [place] 10:52 AM [facility] REPOSITORY TYPE CODE TESTS RESULT OUT OF REFERENCE UNITS RANGE LAB IRN 41-186 ug/dL Low Iron 31 LAB TIBC 232-386 ug/dL Low TIBC 182 LAB SAT 15-57 % Transferrin Saturatn 17 Performed By: #### IRON, FERR #### [facility] [employer] [address] [place], [place] [address] FERRITIN Collected: 07/31/2018 Status: F Source: [place] 10:52 AM [facility] REPOSITORY TYPE CODE TESTS RESULT OUT OF REFERENCE UNITS RANGE LAB FERR 30.3-565.7 ng/mL Ferritin 448.4 Performed By: #### IRON, FERR #### [facility] [address] [place] [address] CNOVSP Observed: 07/31/2018 Status: COMPLETED Source: [place] 9:50 AM [facility] REPOSITORY Visit (SP) Office (HEMAWS) DOUG CAST ([id number]) [address] [facility] Date Time Provider Department 07/31/18 [...] No jaundice or rash. No petechiae. NEUROLOGIC: reading tutor II-XII are grossly intact. No focal motor [...] old male here for INACTIVATED INFLUENZA VACCINE. 6355-6606 Season Patient is identified by name and date of : Yes [] CONTRAINDICATIONS color enhanced section Age less than 6 months? No Allergy to eggs, chicken, chicken feathers, or chicken dander? No Allergy to thimerosal (a preservative) or formaldehyde, gelatin? No History of severe reaction to any vaccine component or a previous dose of influenza vaccination? No History of Guillain-Suffolk Syndrome within 6 weeks after a previous [...] sheet given? Yes See immunization activity in [facility] for details of immunizations adminstered today. Patient age: [age] year old For The 2494-3021 Flu Season 6-35 months old: Fluzone 0.25 [...] one months time. Referring Provider: RAH PEREZ [[id number]] Allergies As of Date: 07/31/2018 (No Known Allergies) Date Reviewed: 07/31/2018 Reviewed by: Julisa Paulson (Refinish Technician) MARIA ISABEL Tran - Fully Assessed Reason [...] + CBC Collected: 07/17/2018 Status: F Source: [place] 11:19 AM [facility] REPOSITORY TYPE CODE TESTS RESULT OUT OF REFERENCE UNITS RANGE LAB WWBC 3.70-11.00 k/uL [place] WBC 5.31 LAB WRBC 4.20-6.00 m/uL Low [place] RBC 3.35 LAB WHGB 13.0-17.0 g/dL Low [place] Hemoglobin 9.7 LAB WHCT 39.0-51.0 % Low [place] Hematocrit 31.6 LAB WMCV 80.0-100.0 fL [place] MCV 94.3 LAB WMCH 26.0-34.0 pg [place] MCH 29.0 LAB WMCHC 30.5-36.0 g/dL [place] MCHC 30.7 LAB WRDW 11.5-15.0 % [place] RDW 13.7 LAB WPLT 150-400 k/uL [place] Platelet Cnt 176 LAB WMPV 9.0-12.7 fL [place] MPV 10.1 Result Comment: Test performed at: [facility], [address] [place] [address] Rd[address] [place] [address]. LAB ABGRAN 1.45-7.50 k/uL Absol Gran 4.32 Count MAKR ABS GR + CBC Collected: 07/03/2018 Status: F Source: [place] 12:00 PM [facility] REPOSITORY TYPE CODE TESTS RESULT OUT OF REFERENCE UNITS RANGE LAB WWBC 3.70-11.00 k/uL [place] WBC 6.20 LAB WRBC 4.20-6.00 m/uL Low [place] RBC 3.49 LAB WHGB 13.0-17.0 g/dL Low [place] Hemoglobin 10.1 LAB WHCT 39.0-51.0 % Low [place] Hematocrit 33.3 LAB WMCV 80.0-100.0 fL [place] MCV 95.4 LAB WMCH 26.0-34.0 pg [place] MCH 28.9 LAB WMCHC 30.5-36.0 g/dL Low [place] MCHC 30.3 LAB WRDW 11.5-15.0 % [place] RDW 13.4 LAB WPLT 150-400 k/uL [place] Platelet Cnt 166 LAB WMPV 9.0-12.7 fL [place] MPV 10.6 Result Comment: Test performed at: [facility], [address] [place] [address]. LAB ABGRAN 1.45-7.50 k/uL Absol Gran 5.24 Count MARK ABS GR + CBC Collected: 06/19/2018 Status: F Source: [place] 10:49 AM [facility] REPOSITORY TYPE CODE TESTS RESULT OUT OF REFERENCE UNITS RANGE LAB WWBC 3.70-11.00 k/uL [place] WBC 5.14 LAB WRBC 4.20-6.00 m/uL Low [place] RBC 3.77 LAB WHGB 13.0-17.0 g/dL Low [place] Hemoglobin 11.0 LAB WHCT 39.0-51.0 % Low [place] Hematocrit 35.8 LAB WMCV 80.0-100.0 fL [place] MCV 95.0 LAB WMCH 26.0-34.0 pg [place] MCH 29.2 LAB WMCHC 30.5-36.0 g/dL [place] MCHC 30.7 LAB WRDW 11.5-15.0 % Mark RDW 14.4 LAB WPLT 150-400 k/uL [place] Platelet Cnt 168 LAB WMPV 9.0-12.7 fL [place] MPV 10.4 Result Comment: Test performed at: [facility], [address] [place] [address] Rd[address] [place] [address]. LAB ABGRAN 1.45-7.50 k/uL Absol Gran 4.29 Count MARK ABS GR + CBC Collected: 06/05/2018 Status: F Source: [place] 11:00 AM [facility] REPOSITORY TYPE CODE TESTS RESULT OUT OF REFERENCE UNITS RANGE LAB WWBC 3.70-11.00 k/uL [place] WBC 3.72 LAB WRBC 4.20-6.00 m/uL Low [place] RBC 3.23 LAB WHGB 13.0-17.0 g/dL Low [place] Hemoglobin 9.5 LAB WHCT 39.0-51.0 % Low [place] Hematocrit 30.9 LAB WMCV 80.0-100.0 fL [place] MCV 95.7 LAB WMCH 26.0-34.0 pg [place] MCH 29.4 LAB WMCHC 30.5-36.0 g/dL [place] MCHC 30.7 LAB WRDW 11.5-15.0 % [place] RDW 14.0 LAB WPLT 150-400 k/uL Low [place] Platelet Cnt 119 LAB WMPV 9.0-12.7 fL [place] MPV 10.7 LAB ABGRAN 1.45-7.50 k/uL Absol Gran Count 2.76 PROGRESS Observed: 05/25/2018 Status: COMPLETED Source: [place] 3:00 PM [facility]AMP[facility] REPOSITORY HNO ID: [id number] Author: Angel Medrano Service: (none) Author Type: [...] of these are being followed here in [place]. At this point I am most concerned [...] with more than 50% of the total uwqn-zq-wxft time of the visit in counseling / coordination of care. MARK ABS GR + CBC Collected: 05/22/2018 Status: F Source: [place] 11:07 AM [facility] [place] REPOSITORY TYPE CODE TESTS RESULT OUT OF REFERENCE UNITS RANGE LAB WWBC 3.70-11.00 k/uL [place] WBC 4.27 LAB WRBC 4.20-6.00 m/uL Low [place] RBC 3.45 LAB WHGB 13.0-17.0 g/dL Low [place] Hemoglobin 10.2 LAB WHCT 39.0-51.0 % Low [place] Hematocrit 32.8 LAB WMCV 80.0-100.0 fL [place] MCV 95.1 LAB WMCH 26.0-34.0 pg [place] MCH 29.6 LAB WMCHC 30.5-36.0 g/dL [place] MCHC 31.1 LAB WRDW 11.5-15.0 % [place] RDW 14.3 LAB WPLT 150-400 k/uL Low [place] Platelet Cnt 116 LAB WMPV 9.0-12.7 fL Mark MPV 11.0 Result Comment: Test performed at: [facility], [address] [place] [address]. LAB ABGRAN 1.45-7.50 k/uL Absol Gran 3.30 Count CNOV Observed: 05/17/2018 Status: COMPLETED Source: [place] 9:15 AM [facility] REPOSITORY Office Visit (AGMIL) DOUG CAST ([id number]) [address] [facility] Date Time Provider Department 05/17/18 [...] of these are being followed here in [place]. At this point I am most concerned [...] with more than 50% of the total gpav-cj-kqua time of the visit in counseling / coordination of care. Referring Provider: VIJAY MASON [[id number]] Allergies As of Date: 05/17/2018 (No Known Allergies) Date Reviewed: 05/17/2018 Reviewed by: Angel Medrano - Fully Assessed Reason for Visit: Stenosis [1326] Cmt: Doug is here for follow up carotid stenosis. 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] Other Visit Diagnosis:H/O carotid endarterectomy [Z98.890] Order(s):US CAROTID ARTERIES [facility] [1624930] Order #: [id number] FUTURE Prescriptions as of 05/17/2018 Sig: FINASTERIDE [...] CAROTID DUPLEX Observed: 05/08/2018 Status: F Source: [place] ULTRASOUND 11:14 AM [facility] REPOSITORY [facility] Cardiovascular Services [address] [place] [address] Carotid Duplex Ultrasound 05/07/18 1001 MR#: [id number] Acct: [id number] Name: DOUG CAST Rep #: [id number] : 1935 82 From: Karthik Holloway MD Attending Dr: ANGEL MEDRANO MD Status: REG CLI Ordering Dr: Angel Medrano MD Date: 05/07/18 Location: [facility] Sex: M C Admitted: Reason For [...] the left vertebral artery. Procedure Carotid Duplex 16574. Exam performed in department. Interpretation Summary Mild (<50%) stenosis right extracranial internal carotid. Mild (<50%) stenosis left extracranial internal carotid. Flow within the vertebral arteries is antegrade bilaterally. Ordering Physician: ANGEL MEDRANO Referring Physician: Vijay Mason Performed By: Kerri Alvarez RVT 05/08/18 1113 Date Karthik Holloway MD CC: ANGEL MEDRANO MD; Vijay Mason MD Date Dictated: 05/07/18 1001 Date Transcribed: 05/08/18 1113 Ink Printer: Signed MARK ABS GR + CBC Collected: 05/08/2018 Status: F Source: [place] 11:11 AM [facility] REPOSITORY TYPE CODE TESTS RESULT OUT OF REFERENCE UNITS RANGE LAB WWBC 3.70-11.00 k/uL Low [place] WBC 3.38 LAB WRBC 4.20-6.00 m/uL Low [place] RBC 3.37 LAB WHGB 13.0-17.0 g/dL Low [place] Hemoglobin 10.0 LAB WHCT 39.0-51.0 % Low [place] Hematocrit 31.9 LAB WMCV 80.0-100.0 fL Mark MCV 94.7 LAB WMCH 26.0-34.0 pg [place] MCH 29.7 LAB WMCHC 30.5-36.0 g/dL [place] MCHC 31.3 LAB WRDW 11.5-15.0 % [place] RDW 13.5 LAB WPLT 150-400 k/uL Low [place] Platelet Cnt 114 LAB WMPV 9.0-12.7 fL [place] MPV 10.5 Result Comment: Test performed at: [facility], [address] [place] [address] Rd[address] [place] [address]. LAB ABGRAN 1.45-7.50 k/uL Absol Gran 2.64 Count IRON AND TIBC Collected: 04/24/2018 Status: F Source: [place] 11:17 AM [facility] REPOSITORY TYPE CODE TESTS RESULT OUT OF REFERENCE UNITS RANGE LAB IRN 41-186 ug/dL Low Iron 34 LAB TIBC 232-386 ug/dL Low TIBC 168 LAB SAT 15-57 % Transferrin Saturatn 20 Performed By: #### IRON, FERR #### [facility] [address] [place] [address] FERRITIN Collected: 04/24/2018 Status: F Source: [place] 11:17 AM [facility] REPOSITORY TYPE CODE TESTS RESULT OUT OF REFERENCE UNITS RANGE LAB FERR 30.3-565.7 ng/mL Ferritin 348.0 Performed By: #### IRON, FERR #### [facility] [address] [place], [place] [address] MARK CBC AND DIFF Collected: 04/24/2018 Status: F Source: [place] 11:16 AM [facility] REPOSITORY TYPE CODE TESTS RESULT OUT OF REFERENCE UNITS RANGE LAB WWBC 3.70-11.00 k/uL Low [place] WBC 3.58 LAB WRBC 4.20-6.00 m/uL Low [place] RBC 3.43 LAB WHGB 13.0-17.0 g/dL Low [place] Hemoglobin 10.2 LAB WHCT 39.0-51.0 % Low [place] Hematocrit 32.8 LAB WMCV 80.0-100.0 fL [place] MCV 95.6 LAB WMCH 26.0-34.0 pg Mark MCH 29.7 LAB WMCHC 30.5-36.0 g/dL [place] MCHC 31.1 LAB WRDW 11.5-15.0 % [place] RDW 13.3 LAB WPLT 150-400 k/uL Low [place] Platelet Cnt 109 LAB WMPV 9.0-12.7 fL [place] MPV 10.9 Result Comment: Test performed at: [address] [place] [address]. LAB WNEUT % [place] Neut% 70.3 LAB WLYMP % Mark Lymp% 15.1 LAB WMONOC % Mark Buffalo% 8.4 LAB WEOS % [place] Eos% 5.9 LAB WBASO % Mark Baso% 0.3 LAB WANEUT 1.45-7.5 k/uL 0 [place] Abs Neut 2.52 LAB WALYMP 1.00-4.0 k/uL Low 0 Mark Abs Lymp 0.54 LAB WAMONO <0.87 k/uL [place] Abs [place] 0.30 LAB WAEOS <0.46 k/uL [place] Abs Eos 0.21 LAB WABASO <0.11 k/uL [place] Abs Baso <0.03 DOWNTIME REPORT Observed: 04/18/2018 Status: F Source: [place] 1:15 PM [facility] REPOSITORY [facility] Medical Records Department [address] [place] [address] Downtime Report MR#: [id number] Acct: [id number] Name: DOUG CAST Rep #: [id number] : 1935 82 From: Harpreet Ma PCP: Status: REG CLI This patient was seen during an EMR downtime April 01, 2018 - April 08, 2018. This patient may have a combination of paper and electronic documentation or all paper documentation. All documentation is viewable within the e-chart portion of [facility] for each patient visit. MARK ABS GR + CBC Collected: 04/10/2018 Status: F Source: [place] 10:52 AM [facility] [place] REPOSITORY TYPE CODE TESTS RESULT OUT OF REFERENCE UNITS RANGE LAB WWBC 3.70-11.00 k/uL [place] WBC 3.93 LAB WRBC 4.20-6.00 m/uL Low Mark RBC 3.71 LAB WHGB 13.0-17.0 g/dL Low [place] Hemoglobin 11.0 LAB WHCT 39.0-51.0 % Low [place] Hematocrit 36.0 LAB WMCV 80.0-100.0 fL [place] MCV 97.0 LAB WMCH 26.0-34.0 pg [place] MCH 29.6 LAB WMCHC 30.5-36.0 g/dL [place] MCHC 30.6 LAB WRDW 11.5-15.0 % Mark RDW 13.2 LAB WPLT 150-400 k/uL Low [place] Platelet Cnt 111 LAB WMPV 9.0-12.7 fL [place] MPV 11.3 Result Comment: Test performed at: [facility], [address] [place] [address]. LAB ABGRAN 1.45-7.50 k/uL Absol Gran 2.93 Count Observed: 04/05/2018 Status: F Source: [place] CULTURE, DEEP WOUND 9:00 AM [facility] REPOSITORY RESULT(S) PREVIOUSLY REPORTED ON MANUAL REQUISITION [...] 160 R (NF) indicates non-formulary drug at [facility]. Approval by Infectious Disease Specialist required before non-formulary drugs may be ordered and/or dispensed. Cult, Anaerobic No anaerobic bacteria isolated. Performed By: #### M100.1500 #### [facility] [address] [place], [address] [place] ABS GR + CBC Collected: 03/27/2018 Status: F Source: [place] 11:01 AM [facility] REPOSITORY TYPE CODE TESTS RESULT OUT OF REFERENCE UNITS RANGE LAB WWBC 3.70-11.00 k/uL [place] WBC 4.88 LAB WRBC 4.20-6.00 m/uL Low [place] RBC 3.51 LAB WHGB 13.0-17.0 g/dL Low [place] Hemoglobin 10.5 LAB WHCT 39.0-51.0 % Low [place] Hematocrit 34.6 LAB WMCV 80.0-100.0 fL [place] MCV 98.6 LAB WMCH 26.0-34.0 pg [place] MCH 29.9 LAB WMCHC 30.5-36.0 g/dL Low [place] MCHC 30.3 LAB WRDW 11.5-15.0 % [place] RDW 13.3 LAB WPLT 150-400 k/uL Low [place] Platelet Cnt 138 LAB WMPV 9.0-12.7 fL [place] MPV 10.5 Result Comment: Test performed at: [facility] [place], [address] [place] [address]. LAB ABGRAN 1.45-7.50 k/uL Absol Gran 4.02 Count Observed: 03/15/2018 Status: F Source: [place] CULTURE, DEEP WOUND 11:30 AM [facility] REPOSITORY Comments: LLE ULCER Gram Stain Gram [...] <=1 S (NF) indicates non-formulary drug at [facility]. Approval by Infectious Disease [...] <=0.5 S (NF) indicates non-formulary drug at [facility]. Approval by Infectious Disease Specialist required before non-formulary drugs may be ordered and/or dispensed. * CLSI guidelines does not recommend testing of cephalosporins. This interpretation is deduced from Beta-lactam/penicillin results. Cult, Anaerobic No anaerobic bacteria isolated. Performed By: #### M100.1500 #### [facility] [address] [place], [address] [place] ABS GR + CBC Collected: 03/13/2018 Status: F Source: [place] 11:13 AM [facility] REPOSITORY TYPE CODE TESTS RESULT OUT OF REFERENCE UNITS RANGE LAB WWBC 3.70-11.00 k/uL Low [place] WBC 3.24 LAB WRBC 4.20-6.00 m/uL Low [place] RBC 3.68 LAB WHGB 13.0-17.0 g/dL Low [place] Hemoglobin 11.0 LAB WHCT 39.0-51.0 % Low [place] Hematocrit 36.6 LAB WMCV 80.0-100.0 fL [place] MCV 99.5 LAB WMCH 26.0-34.0 pg [place] MCH 29.9 LAB WMCHC 30.5-36.0 g/dL Low [place] MCHC 30.1 LAB WRDW 11.5-15.0 % [place] RDW 15.0 LAB WPLT 150-400 k/uL [place] Platelet Cnt 102 LAB WMPV 9.0-12.7 fL [place] MPV 10.3 Result Comment: Test performed at: [facility], [address] [place] [address]. LAB ABGRAN 1.45-7.50 k/uL Absol Gran 2.45 Count BASIC METABOLIC Collected: 03/01/2018 Status: F Source: [place] PROFILE (BMP) 1:29 PM [facility] REPOSITORY TYPE CODE TESTS RESULT OUT OF [...] GAP 5 Performed By: #### L500.2500 #### [facility] [address] [place], [address] VITAMIN D,25 HYDROXY Collected: 03/01/2018 Status: F Source: [place] 1:29 PM [facility] REPOSITORY TYPE CODE TESTS RESULT OUT OF RANGE REFERENCE UNITS LAB L506.1000 29.95-100.01 ng/mL Normal Vitamin D 76.4 25-OH Result Comment: Vitamin D 25(OH) Status Range Deficiency <20 ng/mL (50nmol/L) Insuffciency 20 - 30 ng/mL (50 - 75 nmol/L) Sufficiency 30 - 100 ng/mL (75 - 250 nmol/L) Toxicity >100 ng/mL (>250 nmol/L) Performed By: #### L506.1000 #### [facility] [address] [place], [address] CBC W/DIFF, AUTOMATED Collected: 03/01/2018 Status: F Source: [place] 1:29 PM [facility] REPOSITORY TYPE CODE TESTS RESULT OUT OF [...] MOD DEC Performed By: #### L100.0100 #### [facility] [address] [place], [place], [address] [place] ABS GR + CBC Collected: 02/27/2018 Status: F Source: [place] 10:50 AM [facility] REPOSITORY TYPE CODE TESTS RESULT OUT OF REFERENCE UNITS RANGE LAB WWBC 3.70-11.00 k/uL [place] WBC 3.97 LAB WRBC 4.20-6.00 m/uL Low [place] RBC 3.08 LAB WHGB 13.0-17.0 g/dL Low [place] Hemoglobin 9.3 LAB WHCT 39.0-51.0 % Low [place] Hematocrit 30.7 LAB WMCV 80.0-100.0 fL [place] MCV 99.7 LAB WMCH 26.0-34.0 pg [place] MCH 30.2 LAB WMCHC 30.5-36.0 g/dL Low [place] MCHC 30.3 LAB WRDW 11.5-15.0 % [place] RDW 14.5 LAB WPLT 150-400 k/uL Low [place] Platelet Cnt 100 LAB WMPV 9.0-12.7 fL [place] MPV 11.3 Result Comment: Test performed at: [facility], [address] [place] [address]. LAB ABGRAN 1.45-7.50 k/uL Absol Gran 2.71 Count [place] ABS GR + CBC Collected: 02/13/2018 Status: F Source: [place] 11:50 AM [facility] REPOSITORY TYPE CODE TESTS RESULT OUT OF REFERENCE UNITS RANGE LAB WWBC 3.70-11.00 k/uL Low [place] WBC 3.53 LAB WRBC 4.20-6.00 m/uL Low [place] RBC 3.34 LAB WHGB 13.0-17.0 g/dL Low [place] Hemoglobin 10.0 LAB WHCT 39.0-51.0 % Low [place] Hematocrit 32.9 LAB WMCV 80.0-100.0 fL [place] MCV 98.5 LAB WMCH 26.0-34.0 pg [place] MCH 29.9 LAB WMCHC 30.5-36.0 g/dL Low [place] MCHC 30.4 LAB WRDW 11.5-15.0 % [place] RDW 14.4 LAB WPLT 150-400 k/uL [place] Platelet Cnt 103 LAB WMPV 9.0-12.7 fL [place] MPV 11.8 Result Comment: Test performed at: [facility], [address] [place] [address]. LAB ABGRAN 1.45-7.50 k/uL Absol Gran 2.83 Count PROGRESS Observed: 01/30/2018 Status: COMPLETED Source: [place] 10:57 AM [facility] REPOSITORY HNO ID: [id number] Author: Rah Perez Service: (none) Author Type: [...] No jaundice or rash. No petechiae. NEUROLOGIC: reading tutor II-XII are grossly intact. No focal motor [...] + CBC Collected: 01/30/2018 Status: F Source: [place] 10:38 AM [facility] REPOSITORY TYPE CODE TESTS RESULT OUT OF REFERENCE UNITS RANGE LAB WWBC 3.70-11.00 k/uL [place] WBC 6.30 LAB WRBC 4.20-6.00 m/uL Low [place] RBC 3.55 LAB WHGB 13.0-17.0 g/dL Low [place] Hemoglobin 10.5 LAB WHCT 39.0-51.0 % Low [place] Hematocrit 34.9 LAB WMCV 80.0-100.0 fL [place] MCV 98.3 LAB WMCH 26.0-34.0 pg [place] MCH 29.6 LAB WMCHC 30.5-36.0 g/dL Low [place] MCHC 30.1 LAB WRDW 11.5-15.0 % [place] RDW 14.6 LAB WPLT 150-400 k/uL [place] Platelet Cnt 195 LAB WMPV 9.0-12.7 fL [place] MPV 10.0 Result Comment: Test performed at: [facility], [address] [place] [address]. LAB ABGRAN 1.45-7.50 k/uL Absol Gran 5.23 Count [place] ISTAT BMP Collected: 01/30/2018 Status: F Source: [place] 10:38 AM [facility] REPOSITORY TYPE CODE TESTS RESULT OUT [...] GFR. CNOVSP Observed: 01/30/2018 Status: COMPLETED Source: [place] 10:30 AM [facility] REPOSITORY Visit (SP) Office (HEMASIYA) DOUG CAST ([id number]) [address] [facility] Date Time Provider Department 01/30/18 [...] No jaundice or rash. No petechiae. NEUROLOGIC: reading tutor II-XII are grossly intact. No focal motor [...] Rah Perez DO Referring Provider: RAH PEREZ [[id number]] Allergies As of Date: 01/30/2018 (No Known [...] (moder*INVALID FOR* Visit Notes: >> Julisa Paulson (Refinish Technician) Marc MARIA ISABEL SunJan 30, 2018 10:49 AM Status: Signed Est pt, discuss recent lab results 6 month f/u Julisa TranMARIA ISABEL Encounter Status:Closed by RAH PEREZ DO on 01/30/18 PREALBUMIN Collected: 01/25/2018 Status: F Source: [place] 12:40 PM [facility] REPOSITORY TYPE CODE TESTS RESULT OUT OF REFERENCE UNITS RANGE LAB L506.0500 20.0-40.0 mg/dL Low PREALBUMIN 7.0 Performed By: #### L506.0500 #### [facility] [address] [place], [place], [address] CBC W/DIFF, AUTOMATED Collected: 01/25/2018 Status: F Source: [place] 12:40 PM [facility] REPOSITORY TYPE CODE TESTS RESULT OUT OF [...] LYMPHOPENIA NOTED Performed By: #### L100.0100 #### [facility] [address] [place], [address] WOUND CTR HISTORY Observed: 01/25/2018 Status: F Source: [place] AND PHYSICAL 11:51 AM [facility] REPOSITORY [facility] [address] [place] [address] Wound Ctr History AND Physical 01/25/18 1141 MR#: [id number] Acct: [id number] Name: DOUG CAST Rep #: [id number] : 1935 82 From: Tena Staples HERB GROWER-C PCP: Vijay Mason Status: REG RCR Y [...] Date Recorded By Document 01/25/18 10:11 DV [id number] 01/25/18 10:58 DV Wound Center Nurse 1 [Ulcer Assessment] #5 Right Medial Ankle -Combined with other wound No -Current Size (cm) - Length 3.0 WC - Nurse 2 - General Ulcer CM Notes Start: 01/25/18 09:27 Freq: Status: Active Protocol: Activity Type Activity Date Activity User E-Sign Co-Sign Detail Recorded Client Recorded Date Recorded By Document 01/25/18 11:25 MW [id number] 01/25/18 11:33 [place] Wound Center Nurse 2 [...] Date Recorded By Document 01/25/18 11:25 MW [id number] 01/25/18 11:33 [place] Wound Center Nurse 2 [...] Source: [place] CULTURE, DEEP WOUND 11:30 AM [facility] REPOSITORY Comments: LLE ULCER Gram Stain Gram [...] <=0.5 S (NF) indicates non-formulary drug at [facility]. Approval by Infectious Disease Specialist required before non-formulary drugs may be ordered and/or dispensed. * CLSI guidelines does not recommend testing of cephalosporins. This interpretation is deduced from Beta-lactam/penicillin results. Cult, Anaerobic No anaerobic bacteria isolated. Performed By: #### M100.1500 #### [facility] [address] [place], [address] [place] ABS GR + CBC Collected: 01/18/2018 Status: F Source: [place] 11:25 AM [facility] REPOSITORY TYPE CODE TESTS RESULT OUT OF REFERENCE UNITS RANGE LAB WWBC 3.70-11.00 k/uL [place] WBC 5.46 LAB WRBC 4.20-6.00 m/uL Low [place] RBC 3.35 LAB WHGB 13.0-17.0 g/dL Low [place] Hemoglobin 9.9 LAB WHCT 39.0-51.0 % Low [place] Hematocrit 32.6 LAB WMCV 80.0-100.0 fL [place] MCV 97.3 LAB WMCH 26.0-34.0 pg [place] MCH 29.6 LAB WMCHC 30.5-36.0 g/dL Low [place] MCHC 30.4 LAB WRDW 11.5-15.0 % [place] RDW 13.6 LAB WPLT 150-400 k/uL [place] Platelet Cnt 181 LAB WMPV 9.0-12.7 fL [place] MPV 10.3 Result Comment: Test performed at: [facility], [address] [place] [address]. LAB ABGRAN 1.45-7.50 k/uL Absol Gran 4.36 Count FERRITIN Collected: 01/18/2018 Status: F Source: [place] 11:25 [facility] REPOSITORY TYPE CODE TESTS RESULT OUT OF REFERENCE UNITS RANGE LAB FERR 30.3-565.7 ng/mL Ferritin 463.0 Performed By: #### FERR, IRON #### [facility] [address] [place], [place] [address] IRON AND TIBC Collected: 01/18/2018 Status: F Source: [place] 11:25 AM [facility] REPOSITORY TYPE CODE TESTS RESULT OUT OF REFERENCE UNITS RANGE LAB IRN 41-186 ug/dL Iron 55 LAB TIBC 232-386 ug/dL [place] TIBC 159 LAB SAT 15-57 % Transferrin Saturatn 35 Performed By: #### FERR, IRON #### [facility] [address] [place], [place] [address] [place] ABS GR + CBC Collected: 01/02/2018 Status: F Source: [place] 10:44 AM [facility] REPOSITORY TYPE CODE TESTS RESULT OUT OF REFERENCE UNITS RANGE LAB WWBC 3.70-11.00 k/uL [place] WBC 5.32 LAB WRBC 4.20-6.00 m/uL Low [place] RBC 3.58 LAB WHGB 13.0-17.0 g/dL Low [place] Hemoglobin 10.6 LAB WHCT 39.0-51.0 % Low [place] Hematocrit 34.8 LAB WMCV 80.0-100.0 fL [place] MCV 97.2 LAB WMCH 26.0-34.0 pg [place] MCH 29.6 LAB WMCHC 30.5-36.0 g/dL [place] MCHC 30.5 LAB WRDW 11.5-15.0 % [place] RDW 13.6 LAB WPLT 150-400 k/uL [place] Platelet Cnt 151 LAB WMPV 9.0-12.7 fL [place] MPV 10.5 Result Comment: Test performed at: [address] [place] [address]. LAB ABGRAN 1.45-7.50 k/uL Absol Gran 4.35 Count [place] ABS GR + CBC Collected: 12/19/2017 Status: F Source: [place] 10:27 AM [facility] REPOSITORY TYPE CODE TESTS RESULT OUT OF REFERENCE UNITS RANGE LAB WWBC 3.70-11.00 k/uL [place] WBC 5.03 LAB WRBC 4.20-6.00 m/uL Low [place] RBC 3.58 LAB WHGB 13.0-17.0 g/dL [place] Hemoglobin 10.7 LAB WHCT 39.0-51.0 % Low [place] Hematocrit 35.2 LAB WMCV 80.0-100.0 fL [place] MCV 98.3 LAB WMCH 26.0-34.0 pg [place] MCH 29.9 LAB WMCHC 30.5-36.0 g/dL Low [place] MCHC 30.4 LAB WRDW 11.5-15.0 % [place] RDW 14.0 LAB WPLT 150-400 k/uL Low [place] Platelet Cnt 144 LAB WMPV 9.0-12.7 fL [place] MPV 10.8 Result Comment: Test performed at: [facility], [address] [place] [address]. LAB ABGRAN 1.45-7.50 k/uL Absol Gran 3.92 Count [place] ABS GR + CBC Collected: 11/21/2017 Status: F Source: [place] 10:53 AM [facility] REPOSITORY TYPE CODE TESTS RESULT OUT OF REFERENCE UNITS RANGE LAB WWBC 3.70-11.00 k/uL [place] WBC 5.01 LAB WRBC 4.20-6.00 m/uL Low [place] RBC 3.43 LAB WHGB 13.0-17.0 g/dL Low [place] Hemoglobin 10.3 LAB WHCT 39.0-51.0 % Low [place] Hematocrit 33.3 LAB WMCV 80.0-100.0 fL [place] MCV 97.1 LAB WMCH 26.0-34.0 pg [place] MCH 30.0 LAB WMCHC 30.5-36.0 g/dL [place] MCHC 30.9 LAB WRDW 11.5-15.0 % [place] RDW 13.7 LAB WPLT 150-400 k/uL Low [place] Platelet Cnt 129 LAB WMPV 9.0-12.7 fL [place] MPV 9.9 Result Comment: Test performed at: [facility], [address] [place] [address]. LAB ABGRAN 1.45-7.50 k/uL Absol Gran 3.87 Count HOSP Observed: 11/21/2017 Status: COMPLETED Source: [place] 10:30 AM [facility] REPOSITORY Infusion Center (HEMAWS) DOUG CAST ([id number]) [address] [facility] Date Time Provider Department 11/21/17 10:30 AM INJECTION [facility] During your visit today, we recorded the following information about you: Sheila Moctezuma LPN 11/21/2017 11:14 AM Signed Injection deferred, parameters not met. Hgb 10.3. [place] Moctez[place] LPN Referring Provider: RAH PEREZ [[id number]] Allergies As of Date: 11/21/2017 (No Known [...] Drug No Known Unknown [place] [facility] Allergy/416 Allergies/W73757 [facility] 227909(SNOM 0388(RXNORM) Repository ED CT) /[id number] NO KNOWN [facility] 6(SNOMED ALLERGIES Health System CT) Repository Drug NO KNOWN [facility] Class/96252 ALLERGIES Main [place] 1003(SNOMED Repository CT) ENCOUNTERS ENCOUNTERS ADMIT/DISCHARGE ACCOUNT NUMBER ADMITTING ENCOUNTER LOCATION SOURCE CLASS 10/31/2018 [id number] Ambulatory BMSBuilding: [place] BMS.[facility] Repository 10/13/2018/10/16/20 [id number] [place]patient [place] 18 Encounter [facility] ding:PCURoom Repository : DKO200Cew: 1 10/13/2018 [id number] [place] Ambulatory BMSBuilding: [place] BMS.[facility] Repository 10/13/2018 [id number] [place] Ambulatory BMSBuilding: [place] BMS.[facility] Repository 10/13/2018 [id number] [place] Ambulatory BMSBuilding: [place] BMS.[facility] Repository 10/13/2018 [id number] [place] Ambulatory BMSBuilding: [place] BMS.[facility] Repository 10/12/2018/10/13/20 [id number] GeraChristiano Chi Inpatient [place] 18 Encounter [facility] ding:TCURoom Repository : OOF97Qdb: 1 10/08/2018/10/12/20 [id number] Sementi, Inpatient [place] 18 [place] Encounter [facility] ding:PD6Tjnj Repository : UJ428Bvd: 1 10/08/2018 [id number] Sementi, Ambulatory BMSBuilding: [place] BMS.[facility] Repository 10/08/2018 [id number] Sementi, Ambulatory BMSBuilding: [place] BMS.[facility] Repository 10/08/2018 [id number] Sementi, Ambulatory BMSBuilding: [place] BMS.[facility] Repository 10/08/2018 [id number] Sementi, Ambulatory BMSBuilding: [place] BMS.[facility] Repository 10/08/2018 [id number] Sementi, Ambulatory BMSBuilding: [place] BMS.[facility] Repository 10/08/2018 [id number] Ambulatory [facility] ding:OLS.AVE Repository B 10/07/2018 [id number] Ambulatory [facility] ding:OLS.AVE Repository B 10/05/2018 [id number] Ambulatory [facility] ding:OLS.AVE Repository B 09/29/2018/10/02/20 [id number] Agyepong, Inpatient [place] 18 [facility] ding:PCURoom Repository : [id number]: 1 09/29/2018 [id number] Agyepong, Ambulatory BMSBuilding: [place] BMS.[facility] Repository 09/29/2018 [id number] Agyepong, Ambulatory BMSBuilding: [place] BMS.[facility] Repository 09/29/2018 [id number] Agyepong, Ambulatory BMSBuilding: [place] BMS.[facility] Repository 09/29/2018 [id number] Agyepong, Ambulatory BMSBuilding: [place] BMS.[facility] Repository 09/29/2018 [id number] Agyepong, Ambulatory BMSBuilding: [place] BMS.[facility] Repository 09/29/2018 [id number] Agyepong, Ambulatory BMSBuilding: [place] BMS.[facility] Repository 09/29/2018 [id number] Agyepong, Ambulatory BMSBuilding: [place] BMS.[facility] Repository 09/23/2018 [id number] Ambulatory [facility] ding:BFHLAB Repository 09/18/2018/09/18/20 [id number] Ambulatory [address] Repository 08/19/2018/09/17/20 [id number] Christiano Boss Chi Inpatient [address] ding:TCURoom Repository : KMD13Dej: 1 08/14/2018/08/19/20 [id number] Agyepong, Inpatient [place] 18 [facility] ding:PCURoom Repository : [id number]: 1 08/14/2018 [id number] Agyepong, Ambulatory BMSBuilding: [place] BMS.[facility] Repository 08/14/2018 [id number] Agyepong, Ambulatory BMSBuilding: [place] BMS.[facility] Repository 08/14/2018 [id number] Agyepong, Ambulatory BMSBuilding: [place] BMS.[facility] Repository 08/14/2018 [id number] Agyepong, Ambulatory BMSBuilding: [place] BMS.[facility] Repository 08/14/2018 [id number] Agyepong, Ambulatory BMSBuilding: [place] BMS.[facility] Repository 08/14/2018 [id number] Agyepong, Ambulatory BMSBuilding: [place] BMS.[facility] Repository 07/31/2018/08/01/20 [id number] Ambulatory [address] [place] Repository 07/31/2018/07/31/20 [id number] Ambulatory [address] [place] Repository 07/31/2018/08/15/20 [id number] Ambulatory [address] [place] Repository 07/17/2018/07/18/20 [id number] Ambulatory [address] [place] Repository 07/17/2018/07/18/20 [id number] Ambulatory [place] [facility] [place] Repository 07/03/2018/07/03/20 [id number] Ambulatory [place] [facility] [place] Repository 07/03/2018/07/03/20 [id number] Ambulatory [place] [facility] [place] Repository 06/19/2018/06/19/20 [id number] Ambulatory [place] [facility] [place] Repository 06/19/2018/06/19/20 [id number] Ambulatory [place] [facility] [place] Repository 06/05/2018/06/05/20 [id number] Ambulatory [place] [facility] [place] Repository 06/05/2018/06/06/20 [id number] Ambulatory [place] [facility] [place] Repository 05/22/2018/05/23/20 [id number] Ambulatory [place] [facility] [place] Repository 05/22/2018/05/22/20 [id number] Ambulatory [place] [facility] [place] Repository 05/17/2018/05/17/20 [id number] Ambulatory [address] Other [place] Repository 05/17/2018/05/17/20 [id number] Ambulatory [address] MEDICAL Repository CENTERBuildi ng:AGWM 05/17/2018 [id number] Ambulatory [facility] MEDICAL Repository CENTERBuildi ng:AGWM 05/08/2018/05/09/20 [id number] Ambulatory [address] [place] Repository 05/08/2018/05/08/20 [id number] Ambulatory [address] [place] Repository 05/08/2018 [id number] Ambulatory [facility] ding:WC Repository 05/07/2018 [id number] Ambulatory [facility] ding:CVS Repository 04/26/2018/04/27/20 [id number] Ambulatory [address] ding:WC Repository 04/24/2018/04/24/20 [id number] Ambulatory [address] [place] Repository 04/24/2018/04/25/20 [id number] Ambulatory [address] [place] Repository 04/10/2018/04/11/20 [id number] Ambulatory [address] [place] Repository 04/10/2018/04/10/20 [id number] Ambulatory [address] [place] Repository 04/05/2018 [id number] Ambulatory [facility] ding:LABSPEC Repository 03/27/2018/03/27/20 [id number] Ambulatory [address] [place] Repository 03/27/2018/03/27/20 [id number] Ambulatory [address] [place] Repository 03/22/2018/03/28/20 [id number] Ambulatory [place] ding:WC Repository 03/13/2018/03/14/20 [id number] Ambulatory [address] [place] Repository 03/13/2018/03/13/20 [id number] Ambulatory [address] [place] Repository 03/04/2018 [id number] Ambulatory [facility] ding:LAB.FUT Repository URE 03/01/2018 [id number] [facility] [place] [facility] Repository 02/27/2018/02/29/20 [id number] Ambulatory [place] [place] Repository 02/27/2018/02/29/20 [id number] Ambulatory [address] [place] Repository 02/15/2018/02/26/20 [id number] Ambulatory [place] ding:WC Repository 02/13/2018/02/14/20 [id number] Ambulatory [address] [place] Repository 02/13/2018/02/14/20 [id number] Ambulatory [address] [place] Repository 01/30/2018/02/01/20 [id number] Ambulatory [place] [facility] [place] Repository 01/30/2018/01/31/20 [id number] Ambulatory [place] [place] Repository 01/30/2018/02/01/20 [id number] Ambulatory [address] [place] Repository 01/25/2018/01/27/20 [id number] Ambulatory [place] ding:WC Repository 01/18/2018/01/19/20 [id number] Ambulatory [facility] [place] Repository 01/18/2018/01/22/20 [id number] Ambulatory [place] [facility] [place] Repository 01/02/2018/01/04/20 [id number] Ambulatory [place] [facility] [place] Repository 01/02/2018/01/03/20 [id number] Ambulatory [place] [facility] [place] Repository 12/19/2017/12/20/19 [id number] Ambulatory [place] [facility] [place] Repository 12/19/2017/12/19/19 [id number] Ambulatory [place] [facility] [place] Repository 11/21/2017/11/21/19 [id number] Ambulatory [place] [facility] [place] Repository 11/21/2017/11/22/19 [id number] Ambulatory [place] [facility] [place] Repository PAYERS PAYERS ENCOUNTER GUARANTOR PAYER SUBSCRIBER SOURCE 10/31/2018 DOUG Flores [id number] HAPPY Insurance:MEDICARE VASASDOB: [facility] PART A BPolicy Number: [id number], [place] [id number] Repository [address]Dpq: (330) Date:2018-10-31 [id number] () 10/31/2018 Secondary DOUG P [place] Insurance:HUMANA VASASDOB: [facility] [id number] Hospital Number: Repository [id number] Date:[id number] [address]OP: 10/31/2018 Tertiary NOT GIVENUNK [place] Insurance:SELF PAY [facility] Number: Effective Repository Date:2018-10-31 10/13/2018 DOUG P Primary DOUG P [place] [id number] HAPPY Insurance:MEDICARE VASASDOB: Community [facility] PART A BPolicy Number: [id number], [place] [id number] Repository 05323Iiz: (330) Date:2018-10-13 [id number] () 10/13/2018 Secondary DOUG P [place] Insurance:HUMANA VASASDOB: [facility] [id number] Hospital Number: Repository [id number] Date:[id number] [address]NR: 10/13/2018 Tertiary NOT GIVENUNK [place] Insurance:SELF PAY [facility] Number: Effective Repository Date:2018-10-13 10/13/2018 DOUG P Primary DOUG P [place] [id number] HAPPY Insurance:MEDICARE VASASDOB: [facility] PART A BPolicy Number: [id number], [place] [id number] Repository [address]Ibi: (330) Date:2018-10-13 [id number] () 10/13/2018 Secondary DOUG P [place] Insurance:HUMANA VASASDOB: [facility] [id number] Hospital Number: Repository [id number] Date:8892-06-57VP [address] [address]QE: 10/13/2018 Tertiary NOT GIVENUNK Mark Insurance:SELF PAY [facility] Number: Effective Repository Date:2018-10-13 10/13/2018 DOUG P Primary DOUG P [place] [id number] HAPPY Insurance:MEDICARE VASASDOB: Community [place] BPolicy [place]: [id number], [place] [id number] Repository 64621Cuq: (330) Date:2018-10-13 [phone] () 10/13/2018 Secondary DOUG P [place] Insurance:HUMANA VASASDOB: [facility] [id number] Hospital Number: Repository [id number] Date:8766-44-46XB [address] [address]IW: 10/13/2018 Tertiary NOT GIVENUNK [place] Insurance:SELF PAY [facility] Number: Effective Repository Date:2018-10-13 10/13/2018 DOUG P Primary DOUG P [place] [id number] HAPPY Insurance:MEDICARE VASASDOB: [facility] PART A BPolicy Number: [id number] [place], [place] [id number] Repository 03970Nsg: 330) Date:2018-10-13 [phone] () 10/13/2018 Secondary DOUG P Mark Insurance:HUMANA VASASDOB: [facility] [id number] Hospital Number: Repository [id number] Date:8913-38-99HQ [address] [address]NQ: 10/13/2018 Tertiary NOT GIVENUNK [place] Insurance:SELF PAY [facility] Number: Effective Repository Date:2018-10-13 10/13/2018 DOUG P Primary DOUG P Mark [id number] HAPPY Insurance:LIFECARE [facility] Number: [id number] [place], [place] [id number] Repository 06216Ley: (330) Date:2018-10-16 [phone] () 10/13/2018 Secondary DOUG P [place] Insurance:MEDICARE VASASDOB: Community PART A BPolicy Number: [id number] Hospital [id number] Repository Date:2018-10-13 10/13/2018 Tertiary DOUG P [place] Insurance:HUMANA VASASDOB: Community COMMERCIALPolicy [id number] Hospital Number: Repository [id number] Date:8975-92-37RT[address] [address]OW: 10/13/2018 Tertiary NOT GIVENUNK Mark Insurance:SELF PAY [facility] Number: Effective Repository Date:2018-10-13 10/12/2018 DOUG P Primary DOUG P [place] [id number] [place]APPY Insurance:MEDICARE VASASDOB: Community [place] PART A BPolicy Number: [id number], [place] [id number] Repository 658[address]Kyu: (208) Date:2018-10-12 [phone] () 10/12/2018 Secondary DOUG P Mark Insurance:HUMANA VASASDOB: Community COMMERCIALPolicy [id number] Hospital Number: Repository [id number] Date:7039-34-45SF[address] [address]TP: 10/12/2018 Tertiary NOT GIVENUNK [place] Insurance:SELF PAY [facility] Number: Effective Repository Date:2018-10-12 10/08/2018 DOUG P Primary DOUG P Mark [id number] [place]APPY Insurance:MEDICARE VASASDOB: [place] PART [place] BPolicy Number: [id number] [place], [place] [id number] Repository 13458Dsy: (607) Date:2018-10-08 [phone] () 10/08/2018 Secondary DOUG P [place] Insurance:HUMANA VASASDOB: Community COMMERCIALPolicy [id number] Hospital Number: Repository [id number] Date:1601-76-15AE[address] [address]LG: 10/08/2018 Tertiary NOT GIVENUNK Mark Insurance:SELF PAY [facility] Number: Effective Repository Date:2018-10-08 10/08/2018 DOUG P Primary DOUG P [place] [id number] [place] Insurance:MEDICARE VASASDOB: [facility] [place] BPolicy Number: [id number] [place], [place] [id number] Repository 24973Qvo: (667) Date:2018-10-087333 () 10/08/2018 Secondary DOUG P [place] Insurance:HUMANA VASASDOB: Community COMMERCIALPolicy [id number] Hospital Number: Repository [id number] Date:9719-00-38QF[address] [address]US: 10/08/2018 Tertiary NOT GIVENUNK [place] Insurance:SELF PAY [facility] Number: Effective Repository Date:2018-10-08 10/08/2018 DOUG P Primary DOUG P [place] [id number] [place]APPY Insurance:MEDICARE VASASDOB: [facility] [place] PART A BPolicy Number: [id number] [place], [place] [id number] Repository 81206Fyn: 330) Date:2018-10-087627 () 10/08/2018 Secondary DOUG P Mark Insurance:HUMANA VASASDOB: [facility] COMMERCIALPolicy [id number] Hospital Number: Repository [id number] Date:2310-85-82DJ[address] [address]TE: 10/08/2018 Tertiary NOT GIVENUNK [place] Insurance:SELF PAY [facility] Number: Effective Repository Date:2018-10-08 10/08/2018 DOUG P Primary DOUG P Mark [id number] HAPPY Insurance:MEDICARE VASASDOB: [facility] [place] PART A BPolicy Number: [id number] [place], [place] [id number] Repository 77389Rlb: (800) Date:2018-10-089426 () 10/08/2018 Secondary DOUG P Mark Insurance:HUMANA VASASDOB: [facility] [id number] Hospital Number: Repository [id number] Date:8647-83-86IY[address] [address]MR: 10/08/2018 Tertiary NOT GIVENUNK Mark Insurance:SELF PAY [facility] Number: Effective Repository Date:2018-10-08 10/08/2018 DOUG P Primary DOUG P Mark [id number] HAPPY Insurance:MEDICARE VASASDOB: [facility] [place] PART A BPolicy Number: [id number] [place], [place] [id number] Repository 45231Hvr: (330) Date:2018-10-08 [phone] () 10/08/2018 Secondary DOUG P [place] Insurance:HUMANA VASASDOB: Community COMMERCIALPolicy [id number] Hospital Number: Repository [id number] Date:0454-39-43WA [address] [place] [address]NG: 10/08/2018 Tertiary NOT GIVENUNK [place] Insurance:SELF PAY [facility] Number: Effective Repository Date:2018-10-08 10/08/2018 DOUG P Primary DOUG P [place] [id number] HAPPY Insurance:MEDICARE VASASDOB: [facility] [place] PART A BPolicy Number: [id number] [place], [place] [id number] Repository 83306Tah: (045) Date:2018-10-08 [phone] () 10/08/2018 Secondary DOUG P [place] Insurance:HUMANA VASASDOB: [facility] [id number] Hospital Number: Repository [id number] Date:6945-31-30WX [address] [place] [address]EB: 10/08/2018 Tertiary NOT GIVENUNK [place] Insurance:SELF PAY [facility] Number: Effective Repository Date:2018-10-08 10/08/2018 DOUG P Primary Insurance:SELF NOT GIVENUNK Mark [id number] [place] [facility] [place] Date:2018-10-08 Repository 16376Jog: (HP) 10/07/2018 DOUG P Primary Insurance:SELF NOT GIVENUNK [place] [id number] [place] [facility] [place]: [place] Date:2018-10-07 Repository 53327Mkq: () 10/05/2018 DOUG P Primary Insurance:SELF NOT GIVENUNK [place] [id number] [place] PA[facility] Number: Effective [place] Date:2018-10-05 Repository 61444Pgv: () 09/29/2018 DOUG P Primary DOUG P Mark [id number] HAPPY Insurance:MEDICARE VASASDOB: [facility] [place] PART A BPolicy Number: [id number] [place], [place] [id number] Repository 43396Kba: (963) Date:2018-09-28 [phone] () 09/29/2018 Secondary DOUG P [place] Insurance:HUMANA VASASDOB: [facility] [id number] Hospital Number: Repository [id number] Date:7154-49-92HX[address] [address]CX: 09/29/2018 Tertiary NOT GIVENUNK [place] Insurance:SELF PAY [facility] Number: Effective Repository Date:2018-09-28 09/29/2018 DOUG P Primary DOUG P [place] [id number] HAPPY Insurance:MEDICARE VASASDOB: Community [place] PART A BPolicy Number: [id number] [place], [place] [id number] Repository 28762Grx: (588) Date:2018-09-28 [phone] () 09/29/2018 Secondary DOUG P Mark Insurance:HUMANA VASASDOB: [facility]y [id number] Hospital Number: Repository [id number] Date:7569-19-69KF [address] [place] [address]GX: 09/29/2018 Tertiary NOT GIVENUNK Mark Insurance:SELF PAY [facility] Number: Effective Repository Date:2018-09-29 09/29/2018 DOUG P Primary DOUG P [place] [id number] HAPPY Insurance:MEDICARE VASASDOB: [facility] [place] PART A BPolicy Number: [id number] [place], [place] [id number] Repository 69127Hua: (244) Date:2018-09-28 [phone] () 09/29/2018 Secondary DOUG P Mark Insurance:HUMANA VASASDOB: [facility] [id number] Hospital Number: Repository [id number] Date:6714-29-09WE [address] [address]LA: 09/29/2018 Tertiary NOT GIVENUNK [place] Insurance:SELF PAY [facility] Number: Effective Repository Date:2018-09-29 09/29/2018 DOUG P Primary DOUG P Mark [id number] HAPPY Insurance:MEDICARE VASASDOB: [facility] PART A BPolicy Number: [id number] [place], [place] [id number] Repository 22788Qmj: 330) Date:2018-09-28 [phone] () 09/29/2018 Secondary DOUG P [place] Insurance:HUMANA VASASDOB: [facility] [id number] Hospital Number: Repository [id number] Date:8812-63-80CJ [address] [address]VI: 09/29/2018 Tertiary NOT GIVENUNK Mark Insurance:SELF PAY [facility] Number: Effective Repository Date:2018-09-29 09/29/2018 DOUG P Primary DOUG P Mark [id number] HAPPY Insurance:MEDICARE VASASDOB: [facility] PART A BPolicy Number: [id number] [place], [place] [id number] Repository 87003Sof: (889) Date:2018-09-28 [phone] () 09/29/2018 Secondary DOUG P [place] Insurance:HUMANA VASASDOB: [facility] [id number] Hospital Number: Repository [id number] Date:5557-50-66RL [address] [address]AN: 09/29/2018 Tertiary NOT GIVENUNK [place] Insurance:SELF PAY [facility] Number: Effective Repository Date:2018-09-29 09/29/2018 DOUG P Primary DOUG P [place] [id number] HAPPY Insurance:MEDICARE VASASDOB: [facility] [place] PART A BPolicy Number: [id number] [place], [place] [id number] Repository 77844Ysf: (330) Date:2018-09-286205 () 09/29/2018 Secondary DOUG P Mark Insurance:HUMANA VASASDOB: [facility] [id number] Hospital Number: Repository [id number] Date:4013-51-28GU [address] [place] [address]KV: 09/29/2018 Tertiary NOT GIVENUNK [place] Insurance:SELF PAY [facility] Number: Effective Repository Date:2018-09-29 09/29/2018 DOUG P Primary DOUG P [place] [id number] HAPPY Insurance:MEDICARE VASASDOB: [facility] PART A BPolicy Number: [id number] [place], [place] [id number] Repository 21910Aog: 330) Date:2018-09-285377 () 09/29/2018 Secondary DOUG P [place] Insurance:HUMANA VASASDOB: [facility] [id number] Hospital Number: Repository [id number] Date:5185-78-72QQ [address] [place] [address]AL: 09/29/2018 Tertiary NOT GIVENUNK [place] Insurance:SELF PAY [facility] Number: Effective Repository Date:2018-09-29 09/29/2018 DOUG P Primary DOUG P [place] [id number] HAPPY Insurance:MEDICARE VASASDOB: [facility] [place] PART A BPolicy Number: [id number] [place], [place] [id number] Repository 83071Kcm: (330) Date:2018-09-286593 () 09/29/2018 Secondary DOUG P [place] Insurance:HUMANA VASASDOB: [facility] [id number] Hospital Number: Repository [id number] Date:7838-45-97HA [address] [address]IE: 09/29/2018 Tertiary NOT GIVENUNK [place] Insurance:SELF PAY [facility] Number: Effective Repository Date:2018-09-29 09/23/2018 DOUG P Primary DOUG P Mark [id number] HAPPY Insurance:MEDICARE VASASDOB: Community [place] PART A BPolicy Number: [id number] [place], [place] [id number] Repository 909[address]Uwp: (341) Date:2018-09-23 [phone] () 09/23/2018 Secondary DOUG P [place] Insurance:HUMANA VASASDOB: [facility] COMMERCIALPolicy [id number] Hospital Number: Repository [id number] Date:5282-54-74NO [address] [address]ZR: 09/23/2018 Tertiary NOT GIVENUNK Mark Insurance:SELF PAY [facility] Number: Effective Repository Date:2018-09-23 08/19/2018 DOUG P Primary DOUG P [place] [id number] HAPPY Insurance:MEDICARE VASASDOB: Community [place] PART A BPolicy Number: [id number] [place], [place] [id number] Repository 08699Fso: (314) Date:2018-08-19 [phone] () 08/19/2018 Secondary DOUG P Mark Insurance:HUMANA VASASDOB: [facility] [id number] Hospital Number: Repository [id number] Date:5497-52-52PB [address] [address]IT: 08/19/2018 Tertiary NOT GIVENUNK Mark Insurance:SELF PAY [facility] Number: Effective Repository Date:2018-08-19 08/14/2018 Doug P Primary Doug P Mark [id number] HAPPY Insurance:MEDICARE VasasDOB: Community [place] PART A BPolicy Number: [id number] [place], [place] [id number] Repository 59702Zjv: (472) Date:2018-08-14 [phone] (HP) 08/14/2018 Secondary Doug P Mark Insurance:HUMANA VasasDOB: Community COMMERCIALPolicy [id number] Hospital Number: Repository [id number] Date:3976-21-27PD[address] [address]BS: 08/14/2018 Tertiary NOT GIVENUNK [place] Insurance:SELF PAY [facility] Number: Effective Repository Date:2018-08-14 08/14/2018 Doug P Primary Doug P Mark [id number] HAPPY Insurance:MEDICARE VasasDOB: Community [place] PART A BPolicy Number: [id number] [place], [place] [id number] Repository 20093Orb: (296) Date:2018-08-14 [phone] () 08/14/2018 Secondary Doug P Mark Insurance:HUMANA VasasDOB: [facility] [id number] Hospital Number: Repository [id number] Date:6651-38-61BZ[address] [address]SV: 08/14/2018 Tertiary NOT GIVENUNK [place] Insurance:SELF PAY [facility] Number: Effective Repository Date:2018-08-14 08/14/2018 DOUG P Primary DOUG P [place] [id number] [place]APPY Insurance:MEDICARE VASASDOB: [facility] [place] PART A BPolicy Number: [id number] [place], [place] [id number] Repository 98279Ams: (778) Date:2018-08-14 [phone] () 08/14/2018 Secondary DOUG P [place] Insurance:HUMANA VASASDOB: [facility] COMMERCIALPolicy [id number] Hospital Number: Repository [id number] Date:9517-37-66ZO[address] [address]DG: 08/14/2018 Tertiary NOT GIVENUNK [place] Insurance:SELF PAY [facility] Number: Effective Repository Date:2018-08-14 08/14/2018 Doug P Primary Doug P [place] [id number] HAPPY Insurance:MEDICARE VasasDOB: Community [place] PART A BPolicy Number: [id number] [place], [place] [id number] Repository 01792Jvs: 330) Date:2018-08-142623 () 08/14/2018 Secondary Doug P Mark Insurance:HUMANA VasasDOB: [facility] [id number] Hospital Number: Repository [id number] Date:7380-46-89YK[address] [address]CI: 08/14/2018 Tertiary NOT GIVENUNK Mark Insurance:SELF PAY [facility] Number: Effective Repository Date:2018-08-14 08/14/2018 Doug P Primary Doug P [place] [id number] [place]APPY Insurance:MEDICARE VasasDOB: [facility] [place] PART A BPolicy Number: [id number] [place], [place] [id number] Repository 91628Wlj: 330) Date:2018-08-148847 () 08/14/2018 Secondary Doug P Mark Insurance:HUMANA VasasDOB: [facility] [id number] Hospital Number: Repository [id number] Date:2023-92-98AO[address] [address]YA: 08/14/2018 Tertiary NOT GIVENUNK [place] Insurance:SELF PAY [facility] Number: Effective Repository Date:2018-08-14 08/14/2018 Doug P Primary Doug P [place] [id number] [place]APPY Insurance:MEDICARE VasasDOB: [facility] VALLEY PART A BPolicy Number: [id number] [place], [place] [id number] Repository 34021Cdp: 330) Date:2018-08-140485 () 08/14/2018 Secondary Doug P [place] Insurance:HUMANA VasasDOB: [facility] [id number] Hospital Number: Repository [id number] Date:4845-67-14WJ [address] [address]FA: 08/14/2018 Tertiary NOT GIVENUNK Mark Insurance:SELF PAY [facility] Number: Effective Repository Date:2018-08-14 08/14/2018 Doug P Primary Doug Flores [id number] HAPPY Insurance:MEDICARE VasasDOB: [facility] [place] PART A BPolicy Number: [id number] [facility] [place] [id number] Repository 09202Ugf: (763) Date:2018-08-14 [phone] (HP) 08/14/2018 Secondary Doug Flores Insurance:HUMANA VasasDOB: [facility] [id number] Hospital Number: Repository [id number] Date:8770-46-63MQ[address] [address]EA: 08/14/2018 Tertiary NOT GIVENUNK [place] Insurance:SELF PAY [facility] Number: Effective Repository Date:2018-08-14 05/17/2018 DOUG Primary DOUG [facility] VASASDOB: Insurance:MEDICARE A VASASDOB: [facility] AND BPolicy Number: [id number] Repository [place] [id number] [place], [place] Date: [address]Yxa: (HP) 05/17/2018 Secondary DOUG Romero General Insurance:HUMANA VASASDOB: [facility] MEDICARE [id number] Repository SUPPLEMENTPolicy Number: [id number] Date: 05/17/2018 DOUG Primary DOUG [facility] VASASDOB: Insurance:MEDICARE A VASASDOB: [facility] AND BPolicy Number: [id number] Repository [place] [id number] [place], [place] Date: [address]Awm: (HP) 05/17/2018 Secondary DOUG Romero General Insurance:HUMANA VASASDOB: [facility] MEDICARE [id number] Repository SUPPLEMENTPolicy Number: [id number] Date: 05/08/2018 Doug P Primary Doug Flores [id number] Happy Insurance:MEDICARE Vas[facility]DOB: [facility] PART A BPolicy Number: [id number], [place] [id number] Repository 28607Vdr: 330) Date:2018-01-254902 () 05/08/2018 Secondary Doug P Mark Insurance:HUMANA VasasDOB: Community COMMERCIALPolicy [id number] Hospital Number: Repository [id number] Date:5282-87-36OX [address] [place] [address]MW: 05/08/2018 Tertiary NOT GIVENUNK [place] Insurance:SELF PAY [facility] Number: Effective Repository Date:2018-04-28 05/07/2018 Doug P Primary Doug P Mark [id number] [place]APPY Insurance:MEDICARE VasasDOB: [facility] [place] PART A BPolicy Number: [id number] [place], [place] [id number] Repository 10714Ecv: 330) Date:2018-04-229154 () 05/07/2018 Secondary Doug P [place] Insurance:HUMANA VasasDOB: [facility] [id number] Hospital Number: Repository [id number] Date:5288-25-91AF [address] [place] [address]IS: 05/07/2018 Tertiary NOT GIVENUNK Mark Insurance:SELF PAY [facility] Number: Effective Repository Date:2018-04-22 04/26/2018 Doug P Primary Doug P Mark [id number] Happy Insurance:MEDICARE VasasDOB: [facility] PART A BPolicy Number: [id number], [place] [id number] Repository 29751Qny: 330) Date:2018-01-25 [phone] () 04/26/2018 Secondary Doug P Mark Insurance:HUMANA VasasDOB: [facility] [id number] Hospital Number: Repository [id number] Date:5849-94-69VV [address] [place] [address]XH: 04/26/2018 Tertiary NOT GIVENUNK Mark Insurance:SELF PAY [facility] Number: Effective Repository Date:2018-03-29 04/05/2018 Doug P Primary Doug P [place] [id number] Happy Insurance:MEDICARE VasasDOB: [facility] PART A BPolicy Number: [id number], [place] [id number] Repository 14006Bir: 330) Date:2018-04-05 [phone] (HP) 04/05/2018 Secondary Doug P Mark Insurance:HUMANA VasasDOB: Community COMMERCIALPolicy [id number] Hospital Number: Repository [id number] Date:0925-30-37CG[address] [address]XF: 04/05/2018 Tertiary NOT GIVENUNK Mark Insurance:SELF PAY [facility] Number: Effective Repository Date:2018-04-05 03/22/2018 Doug P Primary Doug P Mark [id number] Happy Insurance:MEDICARE VasasDOB: [facility] PART A BPolicy Number: [id number], [place] [id number] Repository 97[address]Hyd: Date:2018-01-25 ~33 0-4 (HP) 03/22/2018 Secondary Doug P Mark Insurance:HUMANA VasasDOB: [facility] [id number] Hospital Number: Repository [id number] Date:6658-14-55IL[address] [address]TG: 03/22/2018 Tertiary NOT GIVENUNK Mark Insurance:SELF PAY [facility] Number: Effective Repository Date:2018-02-26 03/04/2018 Doug P Primary Doug P [place] [id number] Happy Insurance:MEDICARE VasasDOB: [facility] PART A BPolicy Number: [id number], [place] [id number] Repository 65[address]Mvt: Date:2018-03-04 ~33 0-4 (HP) 03/04/2018 Secondary Doug P [place] Insurance:HUMANA VasasDOB: Community COMMERCIALPolicy [id number] Hospital Number: Repository [id number] Date:5235-61-33MD[address] [address]BO: 03/04/2018 Tertiary NOT GIVENUNK Mark Insurance:SELF PAY [facility] Number: Effective Repository Date:2018-03-04 03/01/2018 Doug Peter Primary Doug Peter [place] [id number] Happy Insurance:MEDICARE VasasDOB: [facility] PART A BPolicy Number: [id number], [place] [id number] Repository 816[address]Snn: Date:2018-03-01 ~33 0-4 (HP) 03/01/2018 Secondary Doug Peter [place] Insurance:HUMANA VasasDOB: [facility] [id number] Hospital Number: Repository [id number] Date:6285-43-07UK[address] [address]WQ: 03/01/2018 Tertiary NOT GIVENUNK [place] Insurance:SELF PAY [facility] Number: Effective Repository Date:2018-03-01 02/15/2018 Doug Peter Primary Doug Peter Mark [id number] Happy Insurance:MEDICARE VasasDOB: [facility] PART A BPolicy Number: [id number], [place] [id number] Repository 68842Flz: Date:2018-01-25 ~33 0-4 (HP) 02/15/2018 Secondary Doug Peter Mark Insurance:HUMANA VasasDOB: [facility] [id number] Hospital Number: Repository [id number] Date:8438-11-80SE[address] [address]EY: 02/15/2018 Tertiary NOT GIVENUNK [place] Insurance:SELF PAY [facility] Hospital Number: Effective Repository Date:2018-01-27 01/25/2018 Doug Peter Primary Doug Peter [place] [id number] [place] Insurance:MEDICARE VasasDOB: [facility] PART A BPolicy Number: [id number] [place], [place] [id number] Repository [id number]: Date:2018-01-25 ~33 0-4 (HP) 01/25/2018 Secondary Doug P Mark Insurance:HUMANA [id number] Number: Repository [id number] Date:[id number] [address] [address], [place] [address]RW: 01/25/2018 Tertiary NOT GIVENUNK Mark Insurance:SELF PAY [facility] Number: Effective Repository Date:2018-01-25
== END 2018-10-13 08:30 | disposition short-term general hospital (02) | DRG 948 ==
LOC: MS2 14:57 → TCU 15:07
PROVIDERS: Admitting Provider Family Medicine Geriatric Medicine; Family Provider Family Medicine; PCP Family Medicine; Referring Provider Family Medicine Geriatric Medicine; Visit Provider Family Medicine Geriatric Medicine
DX: R53.81 Other malaise (principal); A04.72 Enterocolitis due to Clostridium difficile, not specified as recurrent; E87.0 Hyperosmolality and hypernatremia; F32.9 Major depressive disorder, single episode, unspecified; N40.0 Benign prostatic hyperplasia without lower urinary tract symptoms; I48.91 Unspecified atrial fibrillation; I12.9 Hypertensive chronic kidney disease with stage 1 through stage 4 chronic kidney disease, or unspecified chronic kidney disease; N18.3 Chronic kidney disease, stage 3 (moderate); E78.5 Hyperlipidemia, unspecified; B35.4 Tinea corporis; I25.10 Atherosclerotic heart disease of native coronary artery without angina pectoris; M19.90 Unspecified osteoarthritis, unspecified site; M1A.9XX0 Chronic gout, unspecified, without tophus (tophi); D63.1 Anemia in chronic kidney disease; E87.6 Hypokalemia; R41.0 Disorientation, unspecified
CPT/HCPCS: 82962; 94640; J0885

== ENCOUNTER 2018-10-13 05:13 | Inpatient (IN) | payer MEDICARE, OTHER, SELFPAY ==
[2018-10-12 15:28] VITALS: BMI 25.6
[2018-10-13] VITALS (32 sets, daily range): BP systolic 101–177; BP diastolic 38–64; PULSE 49–69; RESP 12–33; TEMP 36.3–36.7; O2SAT 94–100; BMI 24.8; BMI 24.9
--- NOTE | 2018-10-13 06:04 | RAD_ITS ---
STUDY: X-RAY CHEST REASON FOR EXAM: Male, 83 years old. Unable to arouse TECHNIQUE: Single frontal view of the chest. COMPARISON: 10/08/2018 FINDINGS: Progressing alveolar disease on the left. Stable alveolar disease on the right. Progressing right pleural fluid. Stable left pleural fluid. Stable cardiomediastinal silhouette. Normal mediastinum and jordan. Normal visualized pulmonary arteries. Normal visualized aortic arch and descending thoracic aorta. There are diffuse degenerative changes of the visualized thoracic spine. There is degenerative osteoarthritis of the bilateral shoulders. There is no demonstrated abnormality of the visualized soft tissue structures of the upper abdomen. 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 Stable alveolar disease on the right. Progressing right pleural fluid. Stable left pleural fluid. Electronically Signed: Carmelo Canseco MD at 7:21 EST Tel , Service support ,
--- NOTE | 2018-10-13 06:04 | CT_ITS ---
STUDY: CT BRAIN WITHOUT CONTRAST REASON FOR EXAM: Male, 83 years old. Confusion RADIATION DOSAGE (If Supplied By Facility): CTDIvol = ( 44.99 ) mGy, DLP = ( 1177.03 ) mGycm TECHNIQUE: Transaxial CT imaging of the brain was performed without administration of intravenous contrast material. Individualized dose optimization techniques were used for this CT. COMPARISON: 09/28/2018 FINDINGS: Multiple parotid calcifications. Normal calvarium. Bilateral lens replacements. Normal size ventricles and extra-axial spaces for the patient's age. There are areas of decreased attenuation within the white matter tracts of the supratentorial brain, consistent with microvascular disease changes. Normal age-related changes of the basal ganglia. Normal brainstem. Normal cerebellum. Stable left frontal and parietal encephalomalacia. There is no intracranial hemorrhage. There are no findings of an acute ischemic infarction. Normal visualized paranasal sinuses. CT/Brain/Head without Contrast IMPRESSION: No CT evidence of acute infarct or hemorrhage. Stable left frontal and parietal encephalomalacia. If there is clinical concern for hyperacute ischemia that is not evident by CT, MRI should be considered if possible. Electronically Signed: Carmelo Canseco MD at 7:50 EST Tel , Service support ,
--- NOTE | 2018-10-13 06:05 | EKG12_ITS ---
Test Reason : ILL Blood Pressure : / mmHG Vent. Rate : 059 BPM Atrial Rate : 059 BPM P-R Int : 270 ms QRS Dur : 150 ms QT Int : 506 ms P-R-T Axes : 045 -52 -05 degrees QTc Int : 500 ms Sinus bradycardia with 1st degree A-V block with occasional Premature ventricular complexes Right bundle branch block Left anterior fascicular block Bifascicular block Abnormal ECG Confirmed by TYRONE MACK, NAJMA ([id number]), online content editor SARY MA ([id number]) on 10/16/2018 3:06:12 PM Referred By: NUNO Confirmed By:NAJMA HANSEN MD
[2018-10-13 06:34] LABS: Absolute Lymphocyte Count 0.52 X10^3/ul (0.83-4.51); Absolute Neutrophil Count 5.4 X10^3/uL (2.0-7.7); Eosinophil# 0.09 X10^3/uL; Eosinophils% 1.4 % (0-5); Hematocrit 27.9 % (40-54); Hemoglobin 8.2 g/dl (13.0-16.5); Lymphocyte # 0.52 X10^3/ul (4.0); Lymphocyte % 8.1 % (19-41); Mean Corp Hgb Conc 29.4 g/gl (32-36); Mean Corpuscular Hgb 28.2 pg (27.0-32.0); Mean Corpuscular Volume 95.9 fL (80-94); Mean Platelet Vol. 11.6 fl (6.2-12.0); Monocyte# 0.35 X10^3/uL; Monocyte% 5.5 % (0-10); Neutrophil # 5.42 X10^3/uL (2.7-7.7); Neutrophil % 84.7 % (47-70); Platelet Count 127 K/mm3 (150-450); RBC Distribution Width SD 46.7 fl (35.1-43.9); Red Blood Count 2.91 M/mm3 (4.6-6.2); White Blood Count 6.4 K/mm3 (4.4-11.0)
[2018-10-13 06:35] LABS: Differential Indicated SCAN CRITERIA MET; POSITIVE COUNT NO; POSITIVE DIFFERENTIAL YES; POSITIVE MORPHOLOGY NO
[2018-10-13 06:47] LABS: ALB/GLOB Ratio 0.5 RATIO (0.9-2.4); AST(SGOT) 32 U/L (15-37); Alanine Aminotransfer ALT/SGPT 20 U/L (16-61); Albumin, Serum 1.5 g/dL (3.2-5.0); Alkaline Phosphatase 97 U/L (45-117); Anion Gap 4 (5-15); BUN 71 mg/dL (7-18); BUN/Creat Ratio 39.2 RATIO (10-20); Calcium,Total 8.3 mg/dL (8.5-10.1); Chloride 109 mmol/L (98-107); Creatinine, Serum 1.81 mg/dL (0.70-1.30); EST Glomerular Filtration Rate 38 mL/min (>60); Est Glom Filt Rate - Afr Amer 47 mL/min (>60); Estimated Creatinine Clearance 33.05 ml/min; Globulin 3.3 g/dL (2.2-4.2); Glucose 92 mg/dL (74-106); Potassium 4.7 mmol/L (3.5-5.1); Protein, Total 4.8 g/dL (6.4-8.2); Sodium Level 143 mmol/L (136-145)
[2018-10-13] MEDS: LORazepam 2 MG/ML Syringe 1 MG IV (06:49)
--- NOTE | 2018-10-13 07:36 | ED.VISSUMM ---
- ER Visit Summary Date of Service: 10/13/18 Chief Complaint: Altered mental status History of Present Illness: The patient is a 83 M who presents with altered mental status. He was sent down from the TCU. They had reported that he was lethargic and also short of breath. He was given an aerosol. At the initial time of nursing evaluation here he was awake and denied any complaint. At the time of my evaluation he was just repetitively yelling I cannot get up. He was also yelling his 's name who 2 years ago. I was unable to obtain any further history. Physical Examination: Afebrile pulse ox 97% on room air vitals unremarkable Moist mucous membranes Heart regular rate and rhythm No respiratory distress no wheezing Abdomen soft nontender nondistended Patient has dressings on the bilateral legs and some open wounds on both legs no erythema no drainage Patient alert but oriented to self only Test Results: EKG shows sinus bradycardia at a rate of 59 no acute changes. Labs notable for hemoglobin 8.2, BUN 71, creatinine 1.81. Chest x-ray shows progressive alveolar disease on the left and progressive right pleural fluid. CT of the head is done and pending I do not appreciate any obvious acute abnormality on my review. Urinalysis pending. Emergency Department Course and Treatment: Workup as above. We attempted to straight cath the patient also to obtain a urinalysis given his delirium. He began to punch the nurse. He was given IV Ativan. He was given IV Lasix for progressive CHF. Given his delirium I do feel he will need admitted. I spoke to the hospitalist and patient will be admitted to the PCU. Treatment Plan: [] Disposition: Admit Impression: CHF Delirium This note was generated with [employer] dictation software. It may contain incorrect words, spelling, and punctuation that were not noted in review of the chart prior to signing ED Disposition - Plan for ED Patient: Chief Complaint: Alt LOC Referrals: Vijay Mason MD [Primary Care Provider] -
--- NOTE | 2018-10-13 07:45 | NURSING ---
DR SHARMA FOR DR REINA
--- NOTE | 2018-10-13 07:45 | NURSING ---
PCU PAINTSIL CHF, DELIRIUM
--- NOTE | 2018-10-13 07:48 | HP.PCM_ITS ---
Problem List (1) Acute delirium Status: Acute (2) Clostridium difficile colitis Status: Acute (3) Coronary artery disease Status: Chronic Qualifiers: Coronary Disease-Associated Artery/Lesion type: unspecified vessel or lesion type (4) Hypertension Status: Chronic Qualifiers: Hypertension type: essential hypertension Qualified Code(s): I10 - Essential (primary) hypertension (5) Stroke Status: Chronic Qualifiers: CVA mechanism: unspecified Qualified Code(s): I63.9 - Cerebral infarction, unspecified (6) Hyperlipidemia Status: Chronic Qualifiers: Hyperlipidemia type: unspecified Qualified Code(s): E78.5 - Hyperlipidemia, unspecified (7) Carotid artery disease Status: Chronic Qualifiers: Carotid artery disease type: unspecified Laterality: unspecified laterality Qualified Code(s): I77.9 - Disorder of arteries and arterioles, unspecified (8) Altered mental status Status: Acute History of Present Illness Date of Admission: 10/13/18 Chief Complaint: Altered mental status The patient is a 83 year old M [] Past Medical History Past Medical History (Chronic Problems): Chronic Problems Atrial fibrillation with rapid ventricular response (Chronic) Calciphylaxis (Chronic) Coronary artery disease (Chronic) Cellulitis of leg (Chronic) Healthcare associated bacterial pneumonia (Chronic) Sepsis (Chronic) Osteoarthritis (Chronic) BPH (benign prostatic hyperplasia) (Chronic) Leg ulcer (Chronic) Lymphedema (Chronic) Pleural effusion, right (Chronic) Hypertension (Chronic) Stroke (Chronic) Hyperlipidemia (Chronic) Carotid artery disease (Chronic) Anemia of chronic kidney failure (Chronic) Lymphedema of lower extremity (Chronic) Nephrolithiasis (Chronic) Gout (Chronic) CKD (chronic kidney disease), stage III (Chronic) BPH (benign prostatic hyperplasia) (Chronic) Allergies No Known Allergies Allergy (Verified 10/13/18 05:23) Home Medications: Ambulatory Orders Medication Instructions Recorded Labetalol [Trandate (Beta Lily)] 200 mg PO BID 10/10/16 Aspirin E.C. [Ecotrin] 81 mg PO DAILY 08/14/18 Finasteride [Proscar] 5 mg PO DAILY 08/19/18 Acetaminophen [Tylenol Tablet] 650 mg PO Q6H PRN PRN tab 10/02/18 Albuterol Aerosols [Ventolin 2.5 mg INHALATION Q2H PRN PRN 10/02/18 Aerosols] vial.neb. Magnesium Hydroxide [Milk Of 30 ml PO DAILY PRN udc 10/02/18 Magnesia] Allopurinol [Zyloprim] 300 mg PO DAILY 10/08/18 Apixaban [Eliquis] 2.5 mg PO BID 10/08/18 Epoetin Royer [Procrit] 10,000 units SC Q14D 10/08/18 Ergocalciferol [Vitamin D] 50,000 unit PO BURGOS 10/08/18 Furosemide [Lasix] 40 mg PO DAILY 10/08/18 Guaifenesin [Mucinex] 1,200 mg PO BID 10/08/18 Iron Polysaccharide Complex 150 mg PO DAILYCM 10/08/18 [Ferrex 150] Nutritional Supplement [Morales - 1 packet PO BIDCM 10/08/18 ORANGE FLAVOR] Pravastatin [Pravachol] 40 mg PO QHS 10/08/18 Fluoxetine [Prozac] 20 mg PO DAILY 10/12/18 Vancomcyin 125mg/5mL PO Liquid 125 mg PO Q6 10/12/18 Bisacodyl [Dulcolax] 10 mg PO DAILY PRN 10/13/18 Menthol/Lanolin/Calamine/Znox 1 applic TP TID 10/13/18 [Calmoseptine Ointment] Nystatin Powder [Mycostatin Powder] 1 applic TOPICAL BID 10/13/18 Polyethylene Glycol 3350 [Miralax] 17 gm PO DAILY 10/13/18 Surgical History: - - Bilateral carotid endarectomy Psychiatric History: No pertinent psych hx Lives: [place] Smoking Status: Never smoker Tobacco Use: Non-smoker Alcohol: None Drugs: None - *Family History Paternal Family History: Family History (Last Reviewed 10/08/18 @ 21:06 by Chuy Abrams DO) Mother Hyperthyroidism Father Diabetes Aortic aneurysm rupture History Items: Diabetes Maternal Family History: Family History (Last Reviewed 10/08/18 @ 21:06 by Chuy Abrams DO) Mother Hyperthyroidism Father Diabetes Aortic aneurysm rupture History Items: Heart Disease Review of Systems Unable to obtain accurate/complete ROS d/t: Unable to obtain on account of lethargy VTE Information - Inpt Only VTE Present on Admission: No VTE Pharm Prophylaxis ordered?: Yes Patient Problems: Active and Suspected Problems Acute delirium (Acute) Altered mental status (Acute) - Physical Exam General: Lethargic HEENT: Atraumatic, PERRLA, EOMI, Normocephalic Oral: Moist Mucosa Neck: Supple, No JVD, Negative Carotid Bruits Lungs: Clear to auscultation, Normal air movement Cardiovascular: Regular rate, Regular Rhythm, Normal S1, Normal S2, No murmurs Abdomen: Bowel Sounds Present, Soft, Non Tender, Non-Distended, No Hepato- splenomegaly Extremities: No edema Skin: No rashes, No breakdown Musculoskeletal: No Tenderness to Palpation of Joints or Extremities Lymphatic: No Cervical, Supraclavicular, or Inguinal Adenopathy Neurological: Cranial nerves II-XII grossly intact, Neuro grossly intact Psych/Mental Status: Normal Affect, Appropriate Vital Signs Temp Pulse Resp BP Pulse Ox 97.9 F 60 16 129/39 H 98 10/13/18 06:17 10/13/18 07:20 10/13/18 07:20 10/13/18 07:20 10/13/18 07:20 Oxygen Delivery Method Room Air Weight: 78.65 kg Body Mass Index (BMI) 24.8 Finger Stick Blood Glucose 122 Laboratory Tests Past 24 Hrs 10/13/18 10/13/18 06:19 06:19 WBC 6.4 RBC 2.91 L Hgb 8.2 L Hct 27.9 L MCV 95.9 H MCH 28.2 MCHC 29.4 L RDW 14.0 RDW Differential 46.7 H Plt Count 127 L MPV 11.6 Immature Gran % (Auto) 0.300 Neut % (Auto) 84.7 H Lymph % (Auto) 8.1 L Scurry % (Auto) 5.5 Eos % (Auto) 1.4 Baso % (Auto) 0.0 Absolute Neuts (auto) 5.4 Absolute Lymphs (auto) 0.52 L Total Counted Not Reportable Sodium 143 Potassium 4.7 Chloride 109 H Carbon Dioxide 30.0 Anion Gap 4 L BUN 71 H Creatinine 1.81 H Estim Creat Clear Calc 33.05 Est GFR (MDRD) Af Amer 47 L Est GFR (MDRD) Non-Af 38 L BUN/Creatinine Ratio 39.2 H Glucose 92 Calcium 8.3 L Total Bilirubin 0.30 AST 32 ALT 20 Alkaline Phosphatase 97 Total Protein 4.8 L Albumin 1.5 L Globulin 3.3 Albumin/Globulin Ratio 0.5 L Assessment/Plan All Active Problems Diarrhea (Acute) Clostridium difficile colitis (Acute) Blood in stool (Acute) Acute on chronic kidney failure (Acute) Hypernatremia (Acute) Hypokalemia (Acute) Delirium (Acute) Acute delirium (Acute) Altered mental status (Acute) 83-year-old with past medical history of CVA, hypertension, CKD, discharged on 11/02/2017 to TCU comes back with complaints of delirium and shortness of breath. Patient was combative in the ED, given Ativan, became lethargic. He was unarousable in PCU. ABG showed hypercapnia, respiratory acidosis 1. Acute on chronic hypoxic respiratory failure, likely secondary to medication side effect, started on BiPAP, continue to monitor mentation. 2. Acute metabolic encephalopathy, multifactorial, initially hyperactive now hypoactive delirium, the head was negative for any acute process started on IV ceftriaxone for possible UTI, will continue continue to monitor mentation. 3. Normocytic anemia,, at his baseline, 8.2 4. CKD stage III, baseline, continue to monitor 5. Possible UTI, contaminated as patient's perineum appear dirty, started on IV ceftriaxone, will continue, follow-up with urine cultures 6. Recent C. diff, on vancomycin, patient has decreased mentation, would continue on IV Flagyl for now, resume vancomycin if he is much more awake 7. Recent hypernatremia, sodium is normal 8. Recent hypokalemia, resolved 9. Hypertension 10. h/o CVA 11. Rest of history including BPH Asthma exacerbation is stable. 12. Code status: Full code. Discussed code status with patient's [id number] who will discuss with the son who is her . Agrees that patient should not be full code. The son will get back to the treatment staff on the expectations and plan. I discussed patient's care at the moment in detail. Code Visit Inpatient E&M: 89830 Init Hosp L3
[2018-10-13] MEDS: Furosemide 40 MG/4 ML Vial IV (07:59)
[2018-10-13 08:09] LABS: Mucous, Urine 0 SEEN /hpf (<or=2+)
[2018-10-13 08:10] LABS: Color, Urine Yellow (Yellow); Glucose, Dipstick Normal (Normal); Ketone-Dipstick Negative (Negative); Leukocyte Esterase-Dipstick 500 /ul (Negative); Nitrite-Dipstick Negative (Negative); Occult Blood-Urine 150 /ul (Negative); Protein-Dipstick 15 mg/dl (Negative); Specific Gravity, Urine 1.015 (1.002-1.030); Urine Bilirubin Dipstick Negative (Negative); Urine Clarity Cloudy (Clear); Urine Urobilinogen Normal (Normal)
[2018-10-13 08:17] LABS: Amorphous Sediment 2+; Bacteria 1+ /hpf (None Seen); Hyaline Cast 0-5 SEEN /lpf (0-5); Red Blood Cells-Urine 5-10 SEEN /hpf (0-5); Squamous Epithelial Cells - UA 0-5 SEEN /hpf (0-5); White Blood Cells 10-25 SEEN /hpf (0-5)
[2018-10-13] MEDS: Ceftriaxone 1 GM/50 ML BAG IV (09:05)
[2018-10-13 09:35] LABS: Lactic Acid 0.8 mmol/L (0.4-2.0)
[2018-10-13 09:56] LABS: Eosinophil# 0.11 X10^3/uL; Eosinophils% 1.9 % (0-5); Hematocrit 27.7 % (40-54); Hemoglobin 8.2 g/dl (13.0-16.5); Lymphocyte % 8.4 % (19-41); Mean Corp Hgb Conc 29.6 g/gl (32-36); Mean Corpuscular Hgb 27.7 pg (27.0-32.0); Mean Corpuscular Volume 93.6 fL (80-94); Mean Platelet Vol. 11.3 fl (6.2-12.0); Monocyte% 5.1 % (0-10); Neutrophil % 84.4 % (47-70); Platelet Count 128 K/mm3 (150-450); RBC Distribution Width CV 14.3 % (11.6-14.6); RBC Distribution Width SD 49.1 fl (35.1-43.9); Red Blood Count 2.96 M/mm3 (4.6-6.2); White Blood Count 5.9 K/mm3 (4.4-11.0)
[2018-10-13 09:58] LABS: Differential Indicated SCAN CRITERIA MET; POSITIVE COUNT NO; POSITIVE DIFFERENTIAL YES; POSITIVE MORPHOLOGY NO
[2018-10-13 10:15] LABS: BNP,B-Type NATRIURETIC PEPTIDE 166.1 pg/mL (0-100)
--- NOTE | 2018-10-13 10:41 | NURSING ---
[id number] nurse entered room patient - patient noted to me breathing deep rapid took o2 sats on ra was 73% o2 applied with nc and then nonrebreather was placed then sats increased to 100%. paged to notify. abgs ordered patie nt responsive to deep stimuli/painful stimuli was given ativan in er
[2018-10-13 10:55] LABS: Base Excess 5 mmol/L (-2 to +2); Bicarbonate 31.8 mmol/L (22-26); Blood Gas Specimen Type ART; O2 Delivery Device NRB Mask; PO2 306 mmHG (75-100); SITE R Radial; SO2 100 % (95-99); Time Given 1051; Total Carbon Dioxide 34 mmol/L; pCO2 68.2 mmHg (35-45); pH 7.28 (7.35-7.45)
[2018-10-13 14:31] LABS: Base Excess 4 mmol/L (-2 to +2); Bicarbonate 30.2 mmol/L (22-26); Blood Gas Specimen Type ART; EPAP 6; FI02 30; IPAP 12; PO2 81 mmHG (75-100); RR 12; SITE R Radial; SO2 95 % (95-99); Time Given 1400; Total Carbon Dioxide 32 mmol/L; pCO2 57.3 mmHg (35-45); pH 7.33 (7.35-7.45)
[2018-10-13] MEDS: Labetalol 20 MG/4 ML Vial 10 MG IV (22:17)
[2018-10-13] MEDS: 0.9% NaCl Peripheral Flush Adult/Peds IV ×2 (22:24→22:25)
[2018-10-14] VITALS (20 sets, daily range): BP systolic 141–177; BP diastolic 43–71; PULSE 60–96; RESP 12–37; TEMP 36.6–37.3; O2SAT 83–100
[2018-10-14 06:59] LABS: Anion Gap 6 (5-15); BUN 66 mg/dL (7-18); BUN/Creat Ratio 38.8 RATIO (10-20); Calcium,Total 8.2 mg/dL (8.5-10.1); Chloride 110 mmol/L (98-107); EST Glomerular Filtration Rate 41 mL/min (>60); Est Glom Filt Rate - Afr Amer 50 mL/min (>60); Estimated Creatinine Clearance 35.19 ml/min; Glucose 74 mg/dL (74-106); Potassium 4.6 mmol/L (3.5-5.1); Sodium Level 145 mmol/L (136-145)
[2018-10-14] MEDS: Labetalol 20 MG/4 ML Vial 10 MG IV (09:39)
--- NOTE | 2018-10-14 13:30 | PCM.PROGNOTE ---
<Lion Green - Last Filed: 10/14/18 13:37> Patient Problems: Active and Suspected Problems Acute delirium (Acute) Altered mental status (Acute) Subjective: The patient is very angry this morning. He was yelling with nobody present in the room, when I walked in he yelled at me and called me profanities, and refused to answer questions and refused to allow me to examine him. He then was yelling at the nurse, and again later was yelling with nobody present in the room. He also refused to take his oral medications. - Physical Exam Comment: Pt refused to allow me to examine him. Vital Signs Temp Pulse Resp BP Pulse Ox 98.5 F 67 24 H 173/58 H 97 10/14/18 11:57 10/14/18 11:57 10/14/18 11:57 10/14/18 11:57 10/14/18 11:57 Oxygen Flow Rate (L/min) 2 Oxygen Delivery Method Nasal Cannula Weight: 174 lb 2.643 oz Body Mass Index (BMI) 24.9 Finger Stick Blood Glucose 122 Intake and Output for Last 24 Hours 10/12/18 10/13/18 10/14/18 23:59 23:59 23:59 Intake Total 341 / 341 215 / 215 Balance 341 / 341 215 / 215 Microbiology Past 72 Hours 10/13/18 08:05 Urine Culture - Preliminary Urine, Random Yeast Laboratory Tests Past 24 Hrs 10/13/18 10/13/18 10/13/18 13:45 14:24 15:47 Specimen Type ART Sample Site R Radial pH 7.33 L Bicarbonate Actual 30.2 H POC Total CO2 32 Base Excess 4 H O2 Saturation 95 O2 % 30 ABG pCO2 57.3 H ABG pO2 81 Cole Test NA Respiration Rate 12 O2 Delivery Device Bi / C PAP EPAP 6 IPAP 12 Blood Gas Notified Whom [facility] Blood Gas Notified Time 1400 Sodium Potassium Chloride Carbon Dioxide Anion Gap BUN Creatinine Estim Creat Clear Calc Est GFR (MDRD) Af Amer Est GFR (MDRD) Non-Af BUN/Creatinine Ratio Glucose Calcium Troponin I < 0.015 < 0.015 10/14/18 06:30 Specimen Type Sample Site pH Bicarbonate Actual POC Total CO2 Base Excess O2 Saturation O2 % ABG pCO2 ABG pO2 Cole Test Respiration Rate O2 Delivery Device EPAP IPAP Blood Gas Notified Whom Blood Gas Notified Time Sodium 145 Potassium 4.6 Chloride 110 H Carbon Dioxide 29.0 Anion Gap 6 BUN 66 H Creatinine 1.70 H Estim Creat Clear Calc 35.19 Est GFR (MDRD) Af Amer 50 L Est GFR (MDRD) Non-Af 41 L BUN/Creatinine Ratio 38.8 H Glucose 74 Calcium 8.2 L Troponin I Medical Necessity - Tobacco Use Smoking Status: Never smoker Tobacco Use: Non-smoker Assessment/Plan All Active Problems Diarrhea (Acute) Clostridium difficile colitis (Acute) Blood in stool (Acute) Acute on chronic kidney failure (Acute) Hypernatremia (Acute) Hypokalemia (Acute) Delirium (Acute) Acute delirium (Acute) Altered mental status (Acute) 1. Acute on chronic hypoxic/hypercapneic respiratory failure - 2/2 ativan - appears to have significantly improved. No further benzos. Did well with BiPAP overnight. 2. Acute metabolic encephalopathy suspect 2/2 UTI - still very confused and angry. He may also have some underlying dementia. 3. Acute UTI - follow cultures, continue rocephin. 4. C diff colitis - continue IV flagyl, refusing orals. 5. CKDIII - stable 6. HTN - elevated likely because he is refusing orals. 7. Normocytic anemia - stable, hx iron deficiency, on iron and procrit 8. Hx CHF/pulmonary htn - since he is refusing PO meds, and has progressing fluid on imagine, will provide some IV lasix. 9. Hx CVA - asa/statin 10. BPH - proscar 11. Afib - rate controlled. Eliquis 12. Dysphagia - aspiration precautions. Last eval he did not require diet modifications. 13. Lymphedema - daily wraps 14. Depression - ssri DVT ppx: ifeanyi SMITH planning: from TCU, will likely return. This patient was seen by Lion Green PA-C under the supervision of Doctor Vela. <Pablito Vela - Last Filed: 10/14/18 18:29> Subjective: Patient was restless, agitated and mildly combative in the morning. When I saw him in afternoon is more quite, talking coherent, oriented to place and person but not time in front of her granddaughter, Ms. Hernandez - Physical Exam General: Alert, Cooperative, Confused - Sometimes confused, Disoriented HEENT: Atraumatic, PERRLA, EOMI, Normocephalic Neck: Supple, No JVD, Negative Carotid Bruits Lungs: No rhonchi, No wheeze, No rales, Diminished Cardiovascular: Regular rate, Regular Rhythm, Normal S1, Normal S2, No murmurs Abdomen: Bowel Sounds Present, Soft, Non Tender, Non-Distended Extremities: Capillary Refill Less than 3 Seconds, Edema, - - Lower extremities has Alan wrap bandage. History of lower extremity edema, lymphedema with small blisters Skin: No rashes, No breakdown Musculoskeletal: No Tenderness to Palpation of Joints or Extremities, Arthritic Changes, Muscle Wasting Neurological: Cranial nerves II-XII grossly intact, Deep Tendon Reflexes 2+/4 and Symmetrical, Neuro grossly intact Psych/Mental Status: Normal Affect, Appropriate Vital Signs Temp Pulse Resp BP Pulse Ox 97.8 F 65 20 H 157/59 H 94 10/14/18 17:57 10/14/18 17:57 10/14/18 17:57 10/14/18 17:57 10/14/18 17:57 Oxygen Flow Rate (L/min) 2 Oxygen Delivery Method Nasal Cannula Weight: 174 lb 2.643 oz Body Mass Index (BMI) 24.9 Finger Stick Blood Glucose 122 Intake and Output for Last 24 Hours 10/12/18 10/13/18 10/14/18 23:59 23:59 23:59 Intake Total 341 / 341 1045 / 1045 Balance 341 / 341 1045 / 1045 Microbiology Past 72 Hours 10/13/18 08:05 Urine Culture - Preliminary Urine, Random Yeast Laboratory Tests Past 24 Hrs 10/14/18 06:30 Sodium 145 Potassium 4.6 Chloride 110 H Carbon Dioxide 29.0 Anion Gap 6 BUN 66 H Creatinine 1.70 H Estim Creat Clear Calc 35.19 Est GFR (MDRD) Af Amer 50 L Est GFR (MDRD) Non-Af 41 L BUN/Creatinine Ratio 38.8 H Glucose 74 Calcium 8.2 L Assessment/Plan This patient was seen in conjunction with Lion BARONE. I have independently interviewed and examined the patient and reviewed pertinent history, examination findings, laboratory and plan of management. I have reviewed the note and agree with the documented findings with the few additional points. In brief, patient is admitted for metabolic encephalopathy and acute on chronic combined hypoxic and hypercarbic respiratory failure probably related to medication/Ativan. On intermittent BiPAP at night. Continue IV Flagyl for C. difficile colitis. Multiple comorbidities complicates the present care and expect difficult and delay recovery Discussed with patient's granddaughter, Ms. Hernandez I have discussed my assessment with Lion BARONE and orders have been reviewed. Code Visit Inpatient E&M: 96018 Subs Hosp L3
--- NOTE | 2018-10-14 19:36 | NURSING ---
Patient satting 86% on RA, refusing to keep on nasal cannula. Patient claiming he wants to tonight and calling this RN a bastard.
--- NOTE | 2018-10-14 20:19 | NURSING ---
Spoke with patient's son, Demetri about patient status. Family to come in to discuss patient wishes and determine code status.
--- NOTE | 2018-10-14 21:23 | PN_ITS ---
Patient Problems: Active and Suspected Problems Acute delirium (Acute) Altered mental status (Acute) Vitals/I&O's: Vital Signs Temp Pulse Resp BP Pulse Ox 97.8 F 60 20 H 157/59 H 83 10/14/18 17:57 10/14/18 19:05 18 17:57 10/14/18 17:57 10/14/18 20:24 Oxygen Flow Rate (L/min) 2 Oxygen Delivery Method Room Air Weight: 174 lb 2.643 oz Body Mass Index (BMI) 24.9 Finger Stick Blood Glucose 122 Intake and Output for Last 24 Hours 10/12/18 10/13/18 10/14/18 23:59 23:59 23:59 Intake Total 341 / 341 1045 / 1045 Balance 341 / 341 1045 / 1045 Microbiology Past 72 Hours 10/13/18 08:05 Urine, Random Urine Culture - Preliminary Yeast Laboratory Results 10/14/18 06:30: Sodium 145, Potassium 4.6, Chloride 110 H, Carbon Dioxide 29.0, Anion Gap 6, BUN 66 H, Creatinine 1.70 H, Estim Creat Clear Calc 35.19, Est GFR (MDRD) Af Amer 50 L, Est GFR (MDRD) Non-Af 41 L, BUN/Creatinine Ratio 38.8 H, Glucose 74, Calcium 8.2 L Current Medications Acetaminophen (Tylenol) 650 mg PO Q6H PRN PRN PRN Reason: Mild Pain (scale 0-3)/T>100.7 Albuterol Sulfate (Ventolin Aerosols) 2.5 mg INHALATION Q2H PRN PRN PRN Reason: sob/wheezing Allopurinol (Zyloprim) 300 mg PO DAILY [facility] Last Admin: 10/14/18 09:22 Dose: Not Given Apixaban (Eliquis) 2.5 mg PO BID [facility] Last Admin: 10/14/18 09:22 Dose: Not Given Aspirin (Ecotrin) 81 mg PO DAILYCM [facility] Last Admin: 10/14/18 09:21 Dose: Not Given Epoetin Royer (Procrit) 10,000 units SC Q14D [facility] Ergocalciferol (Vitamin D) 50,000 unit PO BURGOS [facility] Last Admin: 10/13/18 10:58 Dose: Not Given Finasteride (Proscar) 5 mg PO DAILY [facility] Last Admin: 10/14/18 09:22 Dose: Not Given Fluoxetine HCl (Prozac) 20 mg PO DAILY [facility] Last Admin: 10/14/18 09:30 Dose: Not Given Furosemide (Lasix) 20 mg IV DAILY [facility] Guaifenesin (Mucinex) 1,200 mg PO BID [facility] Last Admin: 10/14/18 09:22 Dose: Not Given Metronidazole (Flagyl) 500 mg in 100 mls @ 100 mls/hr IV Q8 [facility] Last Admin: 10/14/18 13:53 Dose: 100 mls/hr Labetalol HCl (Trandate) 200 mg PO BID [facility] Last Admin: 10/14/18 09:22 Dose: Not Given Labetalol HCl (Trandate) 10 mg IV Q4H PRN PRN PRN Reason: Sbp Greater Than 160 Last Admin: 10/14/18 09:39 Dose: 10 mg Magnesium Hydroxide (Milk Of Magnesia) 30 ml PO DAILY PRN PRN Reason: Constipation Nutritional Formula (Morales - [place] Flavor) [facility] Last Admin: 10/14/18 18:30 Dose: Not Given Ondansetron HCl (Zofran) 4 mg IV Q8H PRN PRN PRN Reason: NAUSEA Polysaccharide Iron Complex (Ferrex 150) [facility] Last Admin: 10/14/18 09:21 Dose: Not Given Pravastatin Sodium (Pravachol) 40 mg PO QHS [facility] Last Admin: 10/13/18 22:17 Dose: Not Given Sodium Chloride () 5 - 15 ml IV UD PRN PRN Reason: SALINE FLUSH Last Admin: 10/13/18 22:25 Dose: 5 ml Medical Necessity - Tobacco Use Smoking Status: Never smoker Tobacco Use: Non-smoker Assessment/Plan All Active Problems Diarrhea (Acute) Clostridium difficile colitis (Acute) Blood in stool (Acute) Acute on chronic kidney failure (Acute) Hypernatremia (Acute) Hypokalemia (Acute) Delirium (Acute) Acute delirium (Acute) Altered mental status (Acute) discussed code status with son DPKAILASH present and all agreed to DNR CCA status Patient would like to discontinue therapy and perhaps hospice consult will be appropriate. Patient was alert and did understand that by not continuing treatment he may and he acknowledged this appropriately. We will administer atropine and morphine as appropriate should he suddenly decline this evening
--- NOTE | 2018-10-14 23:59 | NURSING ---
Patient daughter in law called out stating patient was c/o SOB. Satting 82% on RA. Continuing to refuse to wear nasal cannula even when family offered to him. Daughter in law verbalized need for hospice. Will continue to monitor.
[2018-10-15] VITALS (15 sets, daily range): BP systolic 132–187; BP diastolic 47–77; PULSE 44–66; RESP 15–28; TEMP 35.4–37.4; O2SAT 95–98
[2018-10-15 05:41] LABS: Absolute Lymphocyte Count 0.49 X10^3/ul (0.83-4.51); Absolute Neutrophil Count 3.4 X10^3/uL (2.0-7.7); Eosinophil# 0.05 X10^3/uL; Eosinophils% 1.2 % (0-5); Hematocrit 26.7 % (40-54); Lymphocyte # 0.49 X10^3/ul (4.0); Lymphocyte % 11.8 % (19-41); Mean Corpuscular Hgb 27.4 pg (27.0-32.0); Mean Corpuscular Volume 91.4 fL (80-94); Mean Platelet Vol. 11.3 fl (6.2-12.0); Monocyte# 0.22 X10^3/uL; Monocyte% 5.3 % (0-10); Neutrophil # 3.39 X10^3/uL (2.7-7.7); Neutrophil % 81.5 % (47-70); Platelet Count 118 K/mm3 (150-450); RBC Distribution Width CV 14.3 % (11.6-14.6); RBC Distribution Width SD 47.7 fl (35.1-43.9); Red Blood Count 2.92 M/mm3 (4.6-6.2); White Blood Count 4.2 K/mm3 (4.4-11.0)
[2018-10-15 05:45] LABS: Differential Indicated SCAN CRITERIA MET; POSITIVE COUNT NO; POSITIVE DIFFERENTIAL YES; POSITIVE MORPHOLOGY NO
[2018-10-15 05:48] LABS: Anion Gap 7 (5-15); BUN 63 mg/dL (7-18); BUN/Creat Ratio 37.1 RATIO (10-20); Calcium,Total 8.2 mg/dL (8.5-10.1); Chloride 112 mmol/L (98-107); EST Glomerular Filtration Rate 41 mL/min (>60); Est Glom Filt Rate - Afr Amer 50 mL/min (>60); Estimated Creatinine Clearance 35.19 ml/min; Glucose 108 mg/dL (74-106); Potassium 4.6 mmol/L (3.5-5.1); Sodium Level 149 mmol/L (136-145)
[2018-10-15 06:05] LABS: Anisocytosis RARE; Hypochromasia 1+; Platelet Estimate SLT DEC (ADEQ)
[2018-10-15] MEDS: Aspirin E.C. 81 MG Tablet PO (08:57)
[2018-10-15] MEDS: APIXABAN 2.5 MG TABLET PO ×2 (08:57→21:27)
[2018-10-15] MEDS: FLUoxetine 20 MG Capsule PO (08:57)
[2018-10-15] MEDS: guaiFENesin 1,200 MG Tablet 1200 MG PO ×2 (08:57→21:27)
[2018-10-15] MEDS: Finasteride 5 MG Tablet PO (08:57)
[2018-10-15] MEDS: Labetalol 200 MG Tablet PO (08:57)
[2018-10-15] MEDS: Furosemide 20 MG/2 ML VIAL IV (08:57)
[2018-10-15] MEDS: Iron Polysaccharide Complex 150 MG CAPSULE PO (08:57)
[2018-10-15] MEDS: Allopurinol 300 MG Tablet PO (09:02)
--- NOTE | 2018-10-15 09:24 | CASEMGMT ---
Addendum entered by Lorena Espinoza 10/15/18 10:39: Received a call from Danielle at Hospice and they are meeting with family at today. Lorena RENEE Original Note: PA spoke with patient and his daughter in law and they would like Hospice. SW called Danielle at [facility] with referral and faxed information. DAVID spoke with patient's daughter in law and her name is Virgie ([phone]). She said Hospice could call her to set up a time. DAVID gave this information to Danielle at [facility]. Lorena RENEE
[2018-10-15] MEDS: 0.9% NaCl Peripheral Flush Adult/Peds IV (13:46)
--- NOTE | 2018-10-15 15:12 | CASEMGMT ---
[facility] aware that pt has hospice consult at this time, voices understanding. Richelle HONG CM
--- NOTE | 2018-10-15 15:55 | PCM.PROGNOTE ---
<Lion Green - Last Filed: 10/15/18 15:55> Patient Problems: Active and Suspected Problems Acute delirium (Acute) Altered mental status (Acute) Subjective: Pt resting comfortably in bed this AM. Pt did eventually put O2 back home after he could no longer tolerate being SOB. Took some meds today. Less angry. Seems depressed. He and daughter in law were agreeable to hospice. No pain. - Physical Exam General: Alert, Oriented x3, Cooperative HEENT: Atraumatic, PERRLA, EOMI, Normocephalic Neck: Supple, No JVD, Negative Carotid Bruits Lungs: Clear to auscultation, Normal air movement Cardiovascular: Regular rate, No murmurs Abdomen: Bowel Sounds Present, Soft, Non Tender Extremities: No edema, Capillary Refill Less than 3 Seconds Skin: No rashes, No breakdown Musculoskeletal: No Tenderness to Palpation of Joints or Extremities Neurological: Cranial nerves II-XII grossly intact Psych/Mental Status: Normal Affect, Appropriate, Alert and oriented to time, place, person, mood and affect Vital Signs Temp Pulse Resp BP Pulse Ox 95.7 F L 44 L 15 132/52 H 96 10/15/18 12:24 10/15/18 15:01 10/15/18 12:24 10/15/18 12:24 10/15/18 12:24 Oxygen Flow Rate (L/min) 2 Oxygen Delivery Method Nasal Cannula Weight: 169 lb 8.568 oz Body Mass Index (BMI) 24.9 Finger Stick Blood Glucose 122 Intake and Output for Last 24 Hours 10/13/18 10/14/18 10/15/18 23:59 23:59 23:59 Intake Total 341 / 341 1104.7 / 1104.7 400 / 400 Balance 341 / 341 1104.7 / 1104.7 400 / 400 Microbiology Past 72 Hours 10/13/18 08:05 Urine Culture - Final Urine, Random Marzena albicans 10/13/18 Unknown Blood Culture - Preliminary Blood Culture (Wb) - Anticubital Right No growth in 48 hours. 10/13/18 Unknown Blood Culture - Preliminary Blood Culture (Wb) - Right Forearm No growth in 48 hours. Laboratory Tests Past 24 Hrs 10/15/18 10/15/18 05:00 05:13 WBC 4.2 L RBC 2.92 L Hgb 8.0 L Hct 26.7 L MCV 91.4 MCH 27.4 MCHC 30.0 L RDW 14.3 RDW Differential 47.7 H Plt Count 118 L MPV 11.3 Immature Gran % (Auto) 0.200 Neut % (Auto) 81.5 H Lymph % (Auto) 11.8 L [place] % (Auto) 5.3 Eos % (Auto) 1.2 Baso % (Auto) 0.0 Absolute Neuts (auto) 3.4 Absolute Lymphs (auto) 0.49 L Total Counted Not Reportable Differential Comment SEE COMMENT Platelet Estimate SLT DEC Hypochromasia 1+ Anisocytosis RARE Sodium 149 H Potassium 4.6 Chloride 112 H Carbon Dioxide 30.0 Anion Gap 7 BUN 63 H Creatinine 1.70 H Estim Creat Clear Calc 35.19 Est GFR (MDRD) Af Amer 50 L Est GFR (MDRD) Non-Af 41 L BUN/Creatinine Ratio 37.1 H Glucose 108 H Calcium 8.2 L Medical Necessity - Tobacco Use Smoking Status: Never smoker Tobacco Use: Non-smoker Assessment/Plan All Active Problems Diarrhea (Acute) Clostridium difficile colitis (Acute) Blood in stool (Acute) Acute on chronic kidney failure (Acute) Hypernatremia (Acute) Hypokalemia (Acute) Delirium (Acute) Acute delirium (Acute) Altered mental status (Acute) 1. Acute on chronic hypoxic/hypercapneic respiratory failure - 2/2 ativan - appears to have significantly improved. No further benzos. Did well with BiPAP overnight. 2. Acute metabolic encephalopathy suspect 2/2 UTI - improved. Now more depressed. He may also have some underlying dementia. 3. Acute UTI - follow cultures, continue rocephin. 4. C diff colitis - continue IV flagyl, restart PO vanco if he will take it. 5. CKDIII - stable 6. HTN - continue prior regimen. 7. Normocytic anemia - stable, hx iron deficiency, on iron and procrit 8. Hx CHF/pulmonary htn - IV lasix. transition to PO if he will take it. 9. Hx CVA - asa/statin 10. BPH - proscar 11. Afib - rate controlled. Eliquis . He has missed multiple medication doses, at high risk of have RVR again 12. Dysphagia - aspiration precautions. Last eval he did not require diet modifications. 13. Lymphedema - daily wraps 14. Depression - ssri DVT ppx: eliquis DC planning: Hospice was consulted. They feel he is more appropriate for ECF instead of inpatient hospice at this time. This patient was seen by Lion Green PA-C under the supervision of Doctor Dane. <Pablito Vela - Last Filed: 10/15/18 18:39> Subjective: Patient is awake alert and oriented. He is more calm than yesterday. Patient and his [id number] agreed with hospice. - Physical Exam Vital Signs Temp Pulse Resp BP Pulse Ox 95.7 F L 44 L 15 132/52 H 96 10/15/18 12:24 10/15/18 15:01 10/15/18 12:24 10/15/18 12:24 10/15/18 12:24 Oxygen Flow Rate (L/min) 2 Oxygen Delivery Method Nasal Cannula Weight: 169 lb 8.568 oz Body Mass Index (BMI) 24.9 Finger Stick Blood Glucose 122 Intake and Output for Last 24 Hours 10/13/18 10/14/18 10/15/18 23:59 23:59 23:59 Intake Total 341 / 341 1104.7 / 1104.7 400 / 400 Balance 341 / 341 1104.7 / 1104.7 400 / 400 Microbiology Past 72 Hours 10/13/18 08:05 Urine Culture - Final Urine, Random Marzena albicans 10/13/18 Unknown Blood Culture - Preliminary Blood Culture (Wb) - Anticubital Right No growth in 48 hours. 10/13/18 Unknown Blood Culture - Preliminary Blood Culture (Wb) - Right Forearm No growth in 48 hours. Laboratory Tests Past 24 Hrs 10/15/18 10/15/18 05:00 05:13 WBC 4.2 L RBC 2.92 L Hgb 8.0 L Hct 26.7 L MCV 91.4 MCH 27.4 MCHC 30.0 L RDW 14.3 RDW Differential 47.7 H Plt Count 118 L MPV 11.3 Immature Gran % (Auto) 0.200 Neut % (Auto) 81.5 H Lymph % (Auto) 11.8 L [place] % (Auto) 5.3 Eos % (Auto) 1.2 Baso % (Auto) 0.0 Absolute Neuts (auto) 3.4 Absolute Lymphs (auto) 0.49 L Total Counted Not Reportable Differential Comment SEE COMMENT Platelet Estimate SLT DEC Hypochromasia 1+ Anisocytosis RARE Sodium 149 H Potassium 4.6 Chloride 112 H Carbon Dioxide 30.0 Anion Gap 7 BUN 63 H Creatinine 1.70 H Estim Creat Clear Calc 35.19 Est GFR (MDRD) Af Amer 50 L Est GFR (MDRD) Non-Af 41 L BUN/Creatinine Ratio 37.1 H Glucose 108 H Calcium 8.2 L Assessment/Plan This patient was seen in conjunction with Lion BARONE. I have independently interviewed and examined the patient and reviewed pertinent history, examination findings, laboratory and plan of management. I have reviewed the note and agree with the documented findings with the few additional points. In brief, patient is admitted for metabolic encephalopathy and acute on chronic combined hypoxic and hypercarbic respiratory failure probably related to medication/Ativan. On intermittent BiPAP at night. Continue IV Flagyl for C. difficile colitis. Urine culture shows 25,000-50,000 Marzena albicans. Diflucan added. Hospice was consulted. Multiple comorbidities complicates the present care and expect difficult and delay recovery I have discussed my assessment with Lion BARONE and orders have been reviewed. Code Visit Inpatient E&M: 44325 Subs Hosp L2
[2018-10-15] MEDS: Fluconazole 100 MG Tablet 200 MG PO (20:22)
[2018-10-15] MEDS: Pravastatin 40 MG Tablet PO (21:27)
[2018-10-16] VITALS (13 sets, daily range): BP systolic 154–183; BP diastolic 51–80; PULSE 48–62; RESP 24–34; TEMP 35.9–36.3; O2SAT 93–100
--- NOTE | 2018-10-16 08:18 | CPS ---
Pt did not tolerate the BiPap and does not want to wear it again.
--- NOTE | 2018-10-16 12:37 | DCINST_ITS ---
- Discharge Diagnoses Current Active Problems: Current Active and Chronic Problems Acute delirium (Acute) Altered mental status (Acute) You will use the following diet at home:: No restrictions Your food should be the consistency of: Regular Your liquids should be the consistency of: Regular/Thin Discharge Activity: Return to Normal Activity Allergies/Adverse Reactions: Allergies No Known Allergies Allergy (Verified 10/13/18 05:23) Medications to take at Discharge Labetalol [Trandate (Beta Lily)] 200 mg PO BID 10/10/16 Aspirin E.C. [Ecotrin] 81 mg PO DAILY 08/14/18 Finasteride [Proscar] 5 mg PO DAILY 08/19/18 Acetaminophen [Tylenol Tablet] 650 mg PO Q6H PRN PRN tab 10/02/18 Albuterol Aerosols [Ventolin Aerosols] 2.5 mg INHALATION Q2H PRN PRN vial.neb. 10/02/18 Magnesium Hydroxide [Milk Of Magnesia] 30 ml PO DAILY PRN udc 10/02/18 Allopurinol [Zyloprim] 300 mg PO DAILY 10/08/18 Apixaban [Eliquis] 2.5 mg PO BID 10/08/18 Epoetin Royer [Procrit] 10,000 units SC Q14D 10/08/18 Ergocalciferol [Vitamin D] 50,000 unit PO BURGOS 10/08/18 Furosemide [Lasix] 40 mg PO DAILY 10/08/18 Guaifenesin [Mucinex] 1,200 mg PO BID 10/08/18 Iron Polysaccharide Complex [Ferrex 150] 150 mg PO DAILYCM 10/08/18 Nutritional Supplement [Morales - ORANGE FLAVOR] 1 packet PO BIDCM 10/08/18 Pravastatin [Pravachol] 40 mg PO QHS 10/08/18 Fluoxetine [Prozac] 20 mg PO DAILY 10/12/18 Vancomcyin 125mg/5mL PO Liquid 125 mg PO Q6 10/12/18 Bisacodyl [Dulcolax] 10 mg PO DAILY PRN 10/13/18 Menthol/Lanolin/Calamine/Znox [Calmoseptine Ointment] 1 applic TP TID 10/13/18 Nystatin Powder [Mycostatin Powder] 1 applic TOPICAL BID 10/13/18 Polyethylene Glycol 3350 [Miralax] 17 gm PO DAILY 10/13/18 Fluconazole [Diflucan] 200 mg PO DAILY #13 tablet 10/16/18 The following prescriptions were given: Fluconazole [Diflucan] 200 mg PO DAILY #13 tablet Primary Care Physician: Vijay Mason MD [Primary Care Provider] - Please follow up with your Primary Care Physician in: 1-2 weeks Test Results: Test results from this visit will be discussed in further detail at your follow- up appointment, if applicable. Please Follow Up With: Hospice - Home hospice When: As directed Proposed Discharge Date: 10/16/18
--- NOTE | 2018-10-16 12:45 | DS.PCM_ITS ---
<Lion Green - Last Filed: 10/16/18 12:38> Discharge Date and Diagnosis - Problem List Patient Problems: Active and Suspected Problems Acute delirium (Acute) Altered mental status (Acute) Date of Admission: 10/13/18 Date of Discharge: 10/16/18 - Primary Discharge Diagnosis Active and Suspected Problems Acute metabolic encephalopathy 2/2 UTI - Candidal Acute hypoxic respiratory failure secondary to Ativan administration C. difficile colitis CKD stage III Chronic atrial fibrillation Chronic diastolic congestive heart failure pulmonary hypertension History of CVA Chronic normocytic anemia BPH Dysphagia Chronic lymphedema Depression - Secondary Discharge Diagnosis Chronic Problems Atrial fibrillation with rapid ventricular response (Chronic) Calciphylaxis (Chronic) Coronary artery disease (Chronic) Cellulitis of leg (Chronic) Healthcare associated bacterial pneumonia (Chronic) Sepsis (Chronic) Osteoarthritis (Chronic) BPH (benign prostatic hyperplasia) (Chronic) Leg ulcer (Chronic) Lymphedema (Chronic) Pleural effusion, right (Chronic) Hypertension (Chronic) Stroke (Chronic) Hyperlipidemia (Chronic) Carotid artery disease (Chronic) Anemia of chronic kidney failure (Chronic) Lymphedema of lower extremity (Chronic) Nephrolithiasis (Chronic) Gout (Chronic) CKD (chronic kidney disease), stage III (Chronic) BPH (benign prostatic hyperplasia) (Chronic) Hospital Course and Treatment Imaging Results: CT/Brain/Head without Contrast IMPRESSION: No CT evidence of acute infarct or hemorrhage. Stable left frontal and parietal encephalomalacia. If there is clinical concern for hyperacute ischemia that is not evident by CT, MRI should be considered if possible. 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 Stable alveolar disease on the right. Progressing right pleural fluid. Stable left pleural fluid. Consults: Hospice Operations: None Procedures: None Summary of Care Provided: Hospital course: The patient is a 83 year old M with past medical history as above who was recently discharged from the hospital to TCU, was recently been admitted to the hospital with CHF, A. fib with RVR, pneumonia, bacteremia, C. difficile, AK I, who was sent from TCU to the emergency room with increased confusion. He was found to have a UTI. He was given Ativan for agitation and became hypoxic and developed respiratory failure. He was admitted to the PCU no further benzodiazepines were given. His breathing improved with BiPAP overnight and he was weaned back to his baseline oxygen. He was given Rocephin for UTI. Urine culture demonstrated Marzena albicans and he was placed on fluconazole. While admitted he became very upset and temporarily was refusing all medications, was refusing oxygen. He desired for all of his care to be discontinued. His family was contacted and he was made DNR CCA. He temporarily allowed us to resume medication administration. The following day further discussion was had about his CODE STATUS and his desires. He desired with his multiple hospitalizations, continued functional decline, multiple ongoing chronic medical issues, and loss of will to live, that he be allowed to . Hospice was consulted. He did not qualify for inpatient hospice and it was decided that he would go home with hospice. He was made DNR CC only. We have prescribed him oral fluconazole to c lear his UTI. He will finish the previous course of oral vancomycin prescribed for C diff. He was discharged home with hospice in stable condition. His follow-up with your PCP in 1-2 weeks and with hospice as directed. This patient was seen by Lion Green PA-C under the supervision of Doctor Vela. [] Patient Problems: Active and Suspected Problems Acute delirium (Acute) Altered mental status (Acute) - Physical Exam General: Alert, Oriented x3, Cooperative HEENT: Atraumatic, PERRLA, EOMI, Normocephalic Neck: Supple, No JVD, Negative Carotid Bruits Lungs: Clear to auscultation, Normal air movement Cardiovascular: Regular rate, No murmurs Abdomen: Bowel Sounds Present, Soft, Non Tender Extremities: No edema, Capillary Refill Less than 3 Seconds Skin: No rashes, No breakdown Musculoskeletal: No Tenderness to Palpation of Joints or Extremities Neurological: Cranial nerves II-XII grossly intact Psych/Mental Status: Depressed, Alert and oriented to time, place, person, mood and affect Vital Signs Temp Pulse Resp BP Pulse Ox 96.9 F L 62 32 H 183/51 H 97 10/16/18 10:48 10/16/18 11:02 10/16/18 10:48 10/16/18 10:48 10/16/18 10:48 Oxygen Flow Rate (L/min) 2 Oxygen Delivery Method Nasal Cannula Weight: 164 lb 7.437 oz Body Mass Index (BMI) 24.9 Finger Stick Blood Glucose 122 Intake and Output for Last 24 Hours 10/14/18 10/15/18 10/16/18 23:59 23:59 23:59 Intake Total 1104.7 / 1104.7 1083 / 1083 70 / 70 Balance 1104.7 / 1104.7 1083 / 1083 70 / 70 Microbiology Past 72 Hours 10/13/18 08:05 Urine Culture - Final Urine, Random Marzena albicans 10/13/18 Unknown Blood Culture - Preliminary Blood Culture (Wb) - Anticubital Right No growth in 48 hours. 10/13/18 Unknown Blood Culture - Preliminary Blood Culture (Wb) - Right Forearm No growth in 48 hours. Discharge Diet: No Restrictions Discharge Activity: Return to Normal Activity Home Medications: Medications to take at Discharge Labetalol [Trandate (Beta Lily)] 200 mg PO BID 10/10/16 Aspirin E.C. [Ecotrin] 81 mg PO DAILY 08/14/18 Finasteride [Proscar] 5 mg PO DAILY 08/19/18 Acetaminophen [Tylenol Tablet] 650 mg PO Q6H PRN PRN tab 10/02/18 Albuterol Aerosols [Ventolin Aerosols] 2.5 mg INHALATION Q2H PRN PRN vial.neb. 10/02/18 Magnesium Hydroxide [Milk Of Magnesia] 30 ml PO DAILY PRN udc 10/02/18 Allopurinol [Zyloprim] 300 mg PO DAILY 10/08/18 Apixaban [Eliquis] 2.5 mg PO BID 10/08/18 Epoetin Royer [Procrit] 10,000 units SC Q14D 10/08/18 Ergocalciferol [Vitamin D] 50,000 unit PO BURGOS 10/08/18 Furosemide [Lasix] 40 mg PO DAILY 10/08/18 Guaifenesin [Mucinex] 1,200 mg PO BID 10/08/18 Iron Polysaccharide Complex [Ferrex 150] 150 mg PO DAILYCM 10/08/18 Nutritional Supplement [Morales - ORANGE FLAVOR] 1 packet PO BIDCM 10/08/18 Pravastatin [Pravachol] 40 mg PO QHS 10/08/18 Fluoxetine [Prozac] 20 mg PO DAILY 10/12/18 Vancomcyin 125mg/5mL PO Liquid 125 mg PO Q6 10/12/18 Bisacodyl [Dulcolax] 10 mg PO DAILY PRN 10/13/18 Menthol/Lanolin/Calamine/Znox [Calmoseptine Ointment] 1 applic TP TID 10/13/18 Nystatin Powder [Mycostatin Powder] 1 applic TOPICAL BID 10/13/18 Polyethylene Glycol 3350 [Miralax] 17 gm PO DAILY 10/13/18 Fluconazole [Diflucan] 200 mg PO DAILY #13 tablet 10/16/18 Following Prescrptions Were Given to Patient: Fluconazole [Diflucan] 200 mg PO DAILY #13 tablet Primary Care Physician: Vijay Mason MD [Primary Care Provider] - Please follow up with your Primary Care Physician in: 1-2 weeks Please Follow Up With: Hospice - Home hospice When: As directed Disposition: Home with Hospice Minutes spent on discharge:: 40 Patient Condition:: Stable Medical Necessity - Tobacco Use Smoking Status: Never smoker Tobacco Use: Non-smoker Meaningful Use Info Meaningful Use Diagnoses (Choose all that apply): None applicable <Pablito Vela - Last Filed: 10/16/18 16:18> Discharge Date and Diagnosis - Primary Discharge Diagnosis Active and Suspected Problems Acute delirium (Acute) Altered mental status (Acute) - Secondary Discharge Diagnosis Chronic Problems Atrial fibrillation with rapid ventricular response (Chronic) Calciphylaxis (Chronic) Coronary artery disease (Chronic) Cellulitis of leg (Chronic) Healthcare associated bacterial pneumonia (Chronic) Sepsis (Chronic) Osteoarthritis (Chronic) BPH (benign prostatic hyperplasia) (Chronic) Leg ulcer (Chronic) Lymphedema (Chronic) Pleural effusion, right (Chronic) Hypertension (Chronic) Stroke (Chronic) Hyperlipidemia (Chronic) Carotid artery disease (Chronic) Anemia of chronic kidney failure (Chronic) Lymphedema of lower extremity (Chronic) Nephrolithiasis (Chronic) Gout (Chronic) CKD (chronic kidney disease), stage III (Chronic) BPH (benign prostatic hyperplasia) (Chronic) Hospital Course and Treatment Summary of Care Provided: This patient was seen in conjunction with Lion BARONE. I have independently interviewed and examined the patient and reviewed pertinent history, examination findings, laboratory and plan of management. I have reviewed the note and agree with the documented findings with the few additional points. In brief, patient is admitted for metabolic encephalopathy and acute on chronic combined hypoxic and hypercarbic respiratory failure probably related to medication/Ativan. Has multiple admissions, recent 1 for CHF with A. fib with RVR, C. difficile, AK I, bacteremia most probably secondary to pneumonia and was transferred to TCU from where he got admitted at this time. On intermittent BiPAP at night. Continue IV Flagyl for C. difficile colitis. Urine culture shows 25,000-50,000 Marzena albicans. Diflucan added. Hospice was consulted. Patient is DNR CC. Patient is discharged home with home hospice care. Multiple comorbidities complicates the present care and expect difficult and delay recovery Discharge medication reconciliation done. Discharge follow-up instructions discussed with the patient's [id number]. Hospital course and discharge planning discussed with the patient's [id number] and she agrees. Total time spent, exact 35 minutes on discharge meds reconciliation, examination, review of imaging and blood test and discussion with the patient on follow-up instructions. I have discussed my assessment with Lion BARONE and orders have been reviewed. [] - Physical Exam Vital Signs Temp Pulse Resp BP Pulse Ox 96.9 F L 60 24 H 172/64 H 96 10/16/18 12:41 10/16/18 12:41 10/16/18 12:41 10/16/18 12:41 10/16/18 12:41 Oxygen Flow Rate (L/min) 2 Oxygen Delivery Method Nasal Cannula Weight: 164 lb 7.437 oz Body Mass Index (BMI) 24.9 Finger Stick Blood Glucose 122 Intake and Output for Last 24 Hours 10/14/18 10/15/18 10/16/18 23:59 23:59 23:59 Intake Total 1104.7 / 1104.7 1083 / 1083 100 / 100 Balance 1104.7 / 1104.7 1083 / 1083 100 / 100 Microbiology Past 72 Hours 10/13/18 08:05 Urine Culture - Final Urine, Random Marzena albicans 10/13/18 Unknown Blood Culture - Preliminary Blood Culture (Wb) - Anticubital Right No growth in 48 hours. 10/13/18 Unknown Blood Culture - Preliminary Blood Culture (Wb) - Right Forearm No growth in 48 hours. Code Visit Inpatient E&M: [id number] Disch Hosp
--- NOTE | 2018-10-16 13:20 | CASEMGMT ---
Addendum entered by Lakshmi Del Valle 10/16/18 15:05: Pt in need of transportation home. DAVID spoke with Soo at hospice and DME will be delivered between 3 and 4. Spoke with pt dil and pt is unable to be transported in family vehicle. Transportation arranged with [facility] for 4:30 pear picker. Hospice notified and will meet pt at his home. SW informed DIL of d/c time and that hospice would be meeting pt at his home. Nursing notified of d/c plan. CRISTAL Rouse Original Note: Social Work Pt ready for discharge today. Pt met with [facility] yesterday and plans to go home with hospice services. DAVID called Danielle at [facility] and notified of d/c and faxed d/c orders. Met with pt in room and informed that Hospice was notified of d/c and will see him at home. CRISTAL Rouse
--- NOTE | 2018-10-16 14:08 | NURSING ---
Report given to Deepak in Admissions at [facility].
--- OUTSIDE RECORDS SUMMARY | 2019-01-15 12:54 | XMS RPT_ITS ---
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 Collected: 10/13/2018 Status: F Source: [facility] 6:19 AM [facility] REPOSITORY TYPE CODE TESTS RESULT [...] GAP 4 Performed By: #### L500.4050 #### [facility] [address] [facility] [place], [address] CHEST 1 VIEW Observed: 10/13/2018 Status: F Source: [place] (PORTABLE) 6:06 AM [facility] REPOSITORY [facility] Imaging Services [address] [place] [address] Chest 1 View (Portable) MR#: [id number] Acct: [id number] Name: DOUG CAST Rep #: [id number] : 1935 M 83 From: Carmelo Canseco MD PCP: Vijay Mason MD Status: REG ER Study: Chest 1 View (Portable) Date of Exam: 10/13/18 Exam# [id number] Ordering Dr: Stanislaw Jaimes MD STUDY: X-RAY [...] CC: Stanislaw Jaimes MD; Vijay Mason MD Dye Weigher: Signed BRAIN/HEAD WITHOUT Observed: 10/13/2018 Status: F Source: [place] CONTRAST 6:06 AM [facility] REPOSITORY [facility] Imaging Services [address] [place], [place] [address] [address] Brain/Head without Contrast MR#: [id number] Acct: [id number] Name: DOUG CAST Brittani Rep #: [id number] : 1935 M 83 From: Carmelo Canseco MD PCP: Vijay Mason MD Status: REG ER Study: Brain/Head without Contrast Date of Exam: 10/13/18 Exam# [id number] Ordering Dr: Stanislaw Jaimes MD STUDY: CT [...] CC: Stanislaw Jaimes MD; Vijay Mason MD Dye Weigher: Signed BEDSIDE GLUCOSE Collected: 10/13/2018 Status: F Source: MARK 4:34 AM [facility] REPOSITORY TYPE CODE TESTS RESULT OUT OF RANGE REFERENCE UNITS LAB L501.080 70-110 mg/dL Normal BEDSIDE GLU 86 Result Comment: MANAGEMENT OF PATIENT CARE PER NURSING PROTOCOL Performed By: #### L501.080 #### [facility] Point of Care [address] [facility] [place] [address] Observed: 10/13/2018 Status: F Source: MARK CULTURE, BLOOD (WB) 12:00 AM [facility] REPOSITORY BC No growth in 5 days. Performed By: #### M200.1000 #### [facility] [address] [place], [address] Observed: 10/13/2018 Status: F Source: MARK CULTURE, BLOOD (WB) 12:00 AM [facility] REPOSITORY BC No growth in 5 days. Performed By: #### M200.1000 #### [facility] [address] [facility] [place], [address] HISTORY AND PHYSICAL Observed: 10/12/2018 Status: F Source: MARK EXAM 5:52 PM [facility] REPOSITORY [facility] Medical Records Department [address] [facility] [place] [address] History and Physical 10/12/18 1728 MR#: [id number] Acct: [id number] Name: DOUG CAST Rep #: [id number] : 1935 83 From: Christiano Boss MD PCP: Vijay Mason MD Status: ADM IN Y Location: [place] [address] Problem List (1) Diarrhea Status: Acute (2) [...] with below past medical history presented to [facility] Emergency Department 10/08/2018 with abnormal labs. [...] - Most recently, at [facility] in [place]. Smoking Status: Never smoker Tobacco Use: Non-smoker [...] high, consider tapering or prophylaxis dose. 10/12/18 6201 <Electronically signed by Christiano Boss MD> Date Christiano Boss MD Cosign Signature: Date (if applicable) CC: Vijay Mason MD; Christiano Boss MD Signed DISCHARGE SUMMARY Observed: 10/12/2018 Status: F Source: MARK 1:01 PM [facility] REPOSITORY 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 This note was generated with Dick [employer] software. It may contain incorrect words, spelling, [...] Robby Stephens MD When: 2 weeks. Disposition: [facility] facility Minutes spent on discharge:: 34 Patient Condition:: Stable Medical Necessity - Tobacco Use Smoking Status: Never smoker Tobacco Use: Non-smoker Meaningful Use Info Meaningful Use Diagnoses (Choose all that apply): None applicable Code Visit Inpatient E AND M: 36663 Disch Hosp 10/12/18 1301 <Electronically signed by Nanda Canada MD> Date Nanda Canada MD Cosigner Signature (if applicable): Date CC: Zakia Meyer MD; Nanda Canada; Diane Rosario M.D.; Vijay Mason MD Signed TRANSFER TO [facility] Observed: 10/12/2018 Status: F Source: [facility] 9:37 AM [facility] REPOSITORY [facility] Medical Records Department [address] [place] [address] Transfer to [facility] Care MR#: [id number] Acct: [id number] Name: DOUG CAST Brittani Rep #: [id number] : 1935 83 From: Nanda Canada MD PCP: Viajy Mason MD Status: ADM IN DOUG CAST Brittani [id number] (Patient) (Health Ins. Claim No.) (Day of Discharge to Facility) Certification of patient admission REQUIRED AT TIME OF ADMISSION. I CERTIFY THAT POST-HOSPITAL ECF SERVICES ARE REQUIRED TO BE GIVEN ON AN IN-PATIENT BASIS BECAUSE OF THE ABOVE NAMED PATIENT'S NEED FOR FDC CARE ON A CONTINUING BASIS FOR THE [...] F Source: MARK PROFILE (BMP) 6:24 AM [facility] REPOSITORY TYPE CODE TESTS RESULT [...] GAP 6 Performed By: #### L500.2500 #### [facility] [address] [facility] [place]. [place], [place], [address] CBC W/DIFF, AUTOMATED Collected: 10/12/2018 Status: F Source: [place] 6:24 AM [facility] REPOSITORY TYPE CODE TESTS RESULT [...] Lymph 0.49 Performed By: #### L100.0100 #### [facility] [address] [place], [place] [address] [place], [address] CBC W/DIFF, AUTOMATED Collected: 10/11/2018 Status: F Source: [place] 5:38 AM [facility] REPOSITORY TYPE CODE TESTS RESULT [...] Lymph 0.55 Performed By: #### L100.0100 #### [facility] [address] [place], [address] BASIC METABOLIC Collected: 10/11/2018 Status: F Source: [place] PROFILE ([facility]) 5:38 AM [facility] REPOSITORY TYPE CODE TESTS RESULT [...] GAP 5 Performed By: #### L500.2500 #### [facility] [address] [place], [address] CONSULTATION Observed: 10/10/2018 Status: F Source: [place] 8:05 AM [facility] REPOSITORY [facility] Medical Records Department [address] [place] [address] Consultation 10/10/18 0803 MR#: [id number] Acct: [id number] Name: DOUG CAST Rep #: [id number] : 1935 83 From: Fernando Hatch MD PCP: Vijay Mason MD Status: ADM IN Location: [place] [address] Reason for Consult Date of Consultation: 10/10/18 Reason for Consultation: kidney stone History of Present Illness: The patient is a 83 year old Male in [facility] admitted with multiple medical problems and as [...] Family, - - currently living at the [place] Smoking Status: Never smoker Tobacco Use: Non-smoker [...] 10/10/2018 Status: F Source: MARK 5:50 AM [facility] REPOSITORY TYPE CODE TESTS RESULT [...] Lymph 0.42 Performed By: #### L100.0100 #### [facility] [address] [place] [address]. [place], [place], [address] BASIC METABOLIC Collected: 10/10/2018 Status: F Source: [place] PROFILE (BMP) 5:50 AM [facility] REPOSITORY TYPE CODE TESTS RESULT [...] 6 Performed By: #### L500.2500, L501.5200 #### [facility] [address] [place], [address] MAGNESIUM Collected: 10/10/2018 Status: F Source: MARK 5:50 AM [facility] REPOSITORY TYPE CODE TESTS RESULT OUT OF RANGE REFERENCE UNITS LAB L501.5200 1.6-2.6 mg/dL Normal MG 2.0 Performed By: #### L500.2500, L501.5200 #### [facility] [address] [place], [address] ABDOMEN/PELVIS WITHOUT Observed: 10/09/2018 Status: F Source: MARK CONT 7:38 PM [facility] REPOSITORY [facility] Imaging Services [address] [place] [address] Abdomen/Pelvis without Cont MR#: [id number] Acct: [id number] Name: SEGUNDOUG Brittani Rep #: [id number] : 1935 M 83 From: Baltazar Moctezuma MD PCP: Vijay Mason MD Status: ADM IN Study: Abdomen/Pelvis without Cont Date of Exam: 10/09/18 Exam# [id number] Ordering Dr: Nanda Canada MD STUDY: CT [...] , CC: Nanda Canada; Vijay Mason MD Dye Weigher: Signed UREA NITROGEN, URINE Collected: 10/09/2018 Status: F Source: MARK 10:20 AM [facility] REPOSITORY TYPE CODE TESTS RESULT OUT OF RANGE REFERENCE UNITS LAB L502.0715 NO RANGE EST. mg/dL Normal URINE 793 UREA Performed By: #### L502.0715 #### [facility] [address] [place], [address] CREATININE, URINE Collected: 10/09/2018 Status: F Source: MARK (RANDOM) 10:20 AM [facility] REPOSITORY TYPE CODE TESTS RESULT OUT OF RANGE REFERENCE UNITS LAB L501.1200 NO RANGE EST. mg/dL Normal UR CREAT 88.30 Performed By: #### L501.1200 #### [facility] [address] [facility] [place], [address] CONSULTATION Observed: 10/09/2018 Status: F Source: MARK 7:39 AM [facility] REPOSITORY [facility] Medical Records Department [address] [place] [address] Consultation 10/09/18 0731 MR#: [id number] Acct: [id number] Name: DOUG CAST Rep #: [id number] : 1935 83 From: Zakia Meyer MD PCP: Vijay Mason MD Status: ADM IN Location: [facility] SY980-7 Problem List (1) Acute kidney injury superimposed [...] in July 2018. Patient was [facility] to [facility] jail due to diarrhea. Stool test came back positive for blood. Patient was on antibiotics at the jail for pneumonia treatment. Patient was admitted for [...] Lasix 40 mg p.o. daily at the jail. No NSAIDs used. No recent IV contrast [...] sob/wheezing Allopurinol (Zyloprim) 300 mg PO DAILY [facility] Amoxicillin (Amoxil) 500 mg PO Q12 [facility] Last Admin: 10/08/18 21:50 Dose: 500 mg Apixaban (Eliquis) 2.5 mg PO BID [facility] Last Admin: 10/08/18 21:50 Dose: 2.5 mg Aspirin (Ecotrin) 81 mg PO DAILY [facility] Epoetin Royer (Procrit) 10,000 units SC Q14D [facility] Ergocalciferol (Vitamin D) 50,000 unit PO BURGOS [facility] Finasteride (Proscar) 5 mg PO DAILY [facility] Furosemide (Lasix) 40 mg PO DAILY [facility] Guaifenesin (Mucinex) 1,200 mg PO BID [facility] Last Admin: 10/08/18 21:51 Dose: 1,200 mg Hydrocortisone Acetate (Anusol Hc) 25 mg RECTAL BID [facility] Stop: 10/11/18 10:01 Last Admin: 10/08/18 23:54 Dose: 25 mg Hydrocortisone Acetate (Anusol Hc) 25 mg RECTAL BID PRN PRN Labetalol HCl (Trandate) 200 mg PO BID [facility] Last Admin: 10/08/18 21:50 Dose: 200 mg Nutritional Formula (Morales - Burnside Flavor) [facility] Nutritional Formula (Nepro Carb Steady) 120 ml PO 4X/DAY [facility] Polysaccharide Iron Complex (Ferrex 150) 150 [facility] Potassium Chloride (K-Dur) 20 meq [facility] Stop: 10/09/18 08:01 Last Admin: 10/08/18 21:50 Dose: 20 meq Pravastatin Sodium (Pravachol) 40 mg PO QHS [facility] Last Admin: 10/08/18 21:50 Dose: 40 mg [...] BLOOD CNT Collected: 10/09/2018 Status: F Source: [place] NO DIFF 5:04 AM [facility] REPOSITORY TYPE CODE TESTS RESULT [...] MPV 12.1 Performed By: #### L100.0500 #### [facility] [place], [address] COMPREHENSIVE METABOLIC Collected: 10/09/2018 Status: F Source: MARK LAST 5:04 AM [facility] REPOSITORY TYPE CODE TESTS RESULT [...] Performed By: #### L500.4050, L501.2300, L501.5200 #### [facility] [address] [place], [address] PHOSPHORUS Collected: 10/09/2018 Status: F Source: MARK 5:04 AM [facility] REPOSITORY TYPE CODE TESTS RESULT OUT OF RANGE REFERENCE UNITS LAB L501.2300 2.5-4.9 mg/dL Normal PHOS 4.1 Performed By: #### L500.4050, L501.2300, L501.5200 #### [facility] [address] [place], [address] MAGNESIUM Collected: 10/09/2018 Status: F Source: MARK 5:04 AM [facility] REPOSITORY TYPE CODE TESTS RESULT OUT OF RANGE REFERENCE UNITS LAB L501.5200 1.6-2.6 mg/dL Normal MG 2.0 Performed By: #### L500.4050, L501.2300, L501.5200 #### [facility] [address] [place], [address] STOOL Observed: 10/09/2018 Status: F Source: MARK LACTOFERRIN/WBC 3:25 AM [facility] REPOSITORY Stool Lacto/WBC Normal Reference Range = Negative Fecal WBC Lactoferrin Positive: Fecal WBC Lactoferrin present Performed By: #### M100.0605 #### [facility] [address] [place], [address] Observed: 10/09/2018 Status: C Source: MARK CDIFF (MOLECULAR) 3:25 AM [facility] REPOSITORY Is the patient receiving laxatives? N New/unexplained onset of 3 or more stools in past 24 hrs? Y Cdiff-Molecular RESULTS CALLED TO Sheryl SAVAGE 10/09/18 Sergei [place]. REPORT READ BACK BY SOPHIA. Copy of report sent to Infection Control Printer [id number] 10/09/18 3822 MARIBEL. Normal Reference Range = Negative C. Diff DNA Positive-Toxigenic C. Difficile DNA Detected NAAT METHOD Testing was performed using nucleic acid amplification ORGANISM 1: Toxigenic C. difficile DNA Performed By: #### M100.6796 #### [facility] [address] [place], [address] Observed: 10/09/2018 Status: F Source: [place] ENTERIC PATHOGEN 3:25 AM [facility] PANEL STOOL REPOSITORY EP PANEL STOOL Not [...] Not Detected Performed By: #### M100.637 #### [facility] [address] [place], [address] EMERGENCY DEPARTMENT Observed: 10/09/2018 Status: F Source: [place] SUMMARY 12:35 AM [facility] REPOSITORY [facility] Medical Records Department [address] [place] [address] Emergency Department Summary 10/08/18 1857 MR#: [id number] Acct: [id number] Name: DOUG CAST Rep #: [id number] : 1935 83 From: Doug Currie MD [...] discharged home, and then bounced to a half-way facility secondary to functional decline. Patient apparently [...] prior radiograph This note was generated with [employer] dictation software. It may contain incorrect words, [...] problems, contact your Primary Care Provider. Call [facility] ([phone]) or report to the closest Emergency Room. Call 911 if necessary. 10/09/18 0035 <Electronically signed by Doug Currie MD> Date Doug Currie MD Cosigner Signature (If Indicated): Date CC: Vijay Mason MD HISTORY AND PHYSICAL Observed: 10/08/2018 Status: F Source: [place] EXAM 9:15 PM [facility] REPOSITORY [facility] Medical Records Department [address] [place] [address] History and Physical 10/08/182046 MR#: [id number] Acct: [id number] Name: SEGUNDOUG Brittani Rep #: [id number] : 1935 83 From: Chuy Abrams DO PCP: Vijay Mason MD Status: ADM IN Location: [place] [address] Problem List (1) Diarrhea Status: Acute (2) [...] who presented to the emergency department at [facility] on 10/08/2018 from [facility] jail with complaints of diarrhea, increased weakness, elevated [...] cannula. White blood cell count at the jail was 17.5 with 91% neutrophils. Hemoglobin was [...] Family, - - currently living at the [place] Smoking Status: Never smoker Tobacco Use: Non-smoker [...] Sl. Cloudy Urine pH 5.0 Ur Specific [place] 1.015 Assessment/Plan All Active Problems Calciphylaxis of [...] Likely needs to go back to the jail Code Visit Inpatient E AND M: 71239 Init Hosp L2 10/08/182114 <Electronically signed by Chuy Abrams DO> Date Chuy Abrams DO Cosigner Signature: Date (if applicable) CC: Gail Abrams; Vijay Mason MD Signed URINALYSIS, COMPLETE Collected: 10/08/2018 Status: F Source: MARK 6:45 PM [facility] REPOSITORY Order Comment: Order Date: 10/08/18 How [...] 0-5 SEEN Performed By: #### L400.0001 #### [facility] [address] [place], [place], [address] Observed: 10/08/2018 Status: F Source: MARK STOOL OCCULT BLOOD 5:40 PM [facility] IFOB REPOSITORY Order Date: 10/08/18 STOB iFOB Occult Blood Positive ORGANISM 1: OCCULT BLOOD POSITIVE Performed By: #### M100.7900 #### [facility] [address] [place], [address] CHEST 1 VIEW Observed: 10/08/2018 Status: F Source: MARK (PORTABLE) 5:34 PM [facility] REPOSITORY [facility] Imaging Services [address] [place] [address] Chest 1 View (Portable) MR#: [id number] Acct: [id number] Name: DOUG CAST Rep #: [id number] : 1935 M 83 From: Baltazar Moctezuma MD PCP: Vijay Mason MD Status: PRE ER Study: Chest 1 View (Portable) Date of Exam: 10/08/18 Exam# [id number] Ordering Dr: Doug Currie MD STUDY: X-RAY [...] , CC: Doug Currie; Vijay Mason MD Dye Weigher: Signed CBC-COMPLETE BLOOD CNT Collected: 10/08/2018 Status: F Source: MARK NO DIFF 6:40 AM [facility] REPOSITORY Order Comment: 119 TYPE CODE TESTS [...] MPV 11.8 Performed By: #### L100.0500 #### [facility] [address] [place], [address] BASIC METABOLIC Collected: 10/08/2018 Status: F Source: [place] PROFILE (BMP) 6:40 AM [facility] REPOSITORY Order Comment: 119 TYPE CODE TESTS [...] GAP 10 Performed By: #### L500.2500 #### [facility] [address] [place], [place], [address] CBC-COMPLETE BLOOD CNT Collected: 10/07/2018 Status: F Source: MARK NO DIFF 7:00 AM [facility] REPOSITORY Order Comment: 119 TYPE CODE TESTS [...] MPV 11.9 Performed By: #### L100.0500 #### [facility] [address] [facility] [address] [place], [place], [address] BASIC METABOLIC Collected: 10/07/2018 Status: F Source: MARK PROFILE (BMP) 7:00 AM [facility] REPOSITORY Order Comment: 119 TYPE CODE TESTS [...] GAP 10 Performed By: #### L500.2500 #### [facility] [address] [place], [place], [address] CBC-COMPLETE BLOOD CNT Collected: 10/05/2018 Status: F Source: [place] NO DIFF 7:25 AM [facility] REPOSITORY TYPE CODE TESTS RESULT [...] MPV 12.4 Performed By: #### L100.0500 #### [facility] [address] [place], [address] BASIC METABOLIC Collected: 10/05/2018 Status: F Source: MARK PROFILE (BMP) 7:25 AM [facility] REPOSITORY TYPE CODE TESTS RESULT [...] GAP 9 Performed By: #### L500.2500 #### [facility] [address] [facility] [place], [address] 12 LEAD ELECTROCARDIOGRAM Observed: 10/03/2018 Status: F Source: MARK 2:16 PM [facility] REPOSITORY [facility] Cardiovascular Services [address] [facility] [place] [address] 12 Lead EKG 09/29/18 0239 MR#: [id number] Acct: [id number] Name: DOUG CAST Rep #: [id number] : 1935 83 From: Rah Barba MD Attending Dr: Maureen Siddiqui Status: DIS IN Ordering Dr: Chase Zavala MD Date: 09/29/18 Location: [facility] Sex: M C Admitted: 09/29/18 Test [...] ECG Confirmed by BRET MACK, RAH ([id number]), editor in chief SARY MA ([id number]) on 10/03/2018 2:16:33 PM Referred By: DR NINA Confirmed By:RAH BARBA MD 10/03/18 1416 Date Rah Barba MD CC: Maureen Siddiqui; Chase Zavala MD; Vijay Mason MD Signed 12 LEAD ELECTROCARDIOGRAM Observed: 10/03/2018 Status: F Source: [place] 2:15 PM [facility] REPOSITORY [facility] Cardiovascular Services [address] [place] [address] 12 Lead EKG 09/30/18 0451 MR#: [id number] Acct: [id number] Name: DOUG CAST Rep #: [id number] : 1935 83 From: Rah Barba MD Attending Dr: Maureen Siddiqui Status: DIS IN Ordering Dr: Rah Barba MD Date: 09/30/18 Location: [facility] Sex: M C Admitted: 09/29/18 Test [...] Abnormal ECG Confirmed by BRET MACK, RAH ([id number]), editor in chief SARY MA ([id number]) on 10/03/2018 2:14:38 PM Referred By: SALLY Confirmed By:RAH BARBA MD 10/03/18 1414 Date Rah Barba MD CC: Maureen Siddiqui; Rah Barba MD; Vijay Mason MD Signed DISCHARGE SUMMARY Observed: 10/02/2018 Status: F Source: [place] 3:00 PM [facility] REPOSITORY [facility] Medical Records Department [address] [place] [address] Discharge Summary 10/02/18 1423 MR#: [id number] Acct: [id number] Name: DOUG CAST Brittani Rep #: [id number] : 1935 83 From: Lion BARONE PCP: Vijay Mason MD Status: DIS IN Y Location: [place] [address]1 ADDENDUM by Maureen Siddiqui on 10/02/18 at [...] AOCD/Fe deficiency anemia who presented to the [facility] ED on 09/29/18 w/ history of [...] hospital summary above. Inpatient E AND M: 24572 Disch Hosp 10/02/18 1500 <Electronically signed by [...] right pulmonary infiltration. 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 Sandrine Ramirez within 1-2 [...] Source: MARK CULTURE, BLOOD (WB) 8:40 AM [facility] REPOSITORY Has pt arrived? Y BC No growth in 5 days. Performed By: #### M200.1000 #### [facility] [address] [place], [place], [address] Observed: 10/02/2018 Status: F Source: MARK CULTURE, BLOOD (WB) 8:30 AM [facility] REPOSITORY Has pt arrived? Y BC No growth in 5 days. Performed By: #### M200.1000 #### [facility] [address] [place], [address] BASIC METABOLIC Collected: 10/02/2018 Status: F Source: MARK PROFILE (BMP) 6:20 AM [facility] REPOSITORY TYPE CODE TESTS RESULT [...] GAP 9 Performed By: #### L500.2500 #### [facility] [address] [place], [place], [address] CBC W/DIFF, AUTOMATED Collected: 10/02/2018 Status: F Source: [place] 6:20 AM [facility] REPOSITORY Order Comment: Comments: due to heparin [...] Lymph 0.26 Performed By: #### L100.0100 #### [facility] [address] [place], [address] PARTIAL THROMBOPLAST Collected: 10/02/2018 Status: F Source: [place] TIME 6:20 AM [facility] REPOSITORY Order Comment: Comments: on heparin drip TYPE CODE TESTS RESULT OUT OF REFERENCE UNITS RANGE LAB L300.4310 24.1-36.2 Seconds High PTT 72.4 Performed By: #### L300.4310 #### [facility] [address] [place], [address] CHEST PA AND LATERAL Observed: 10/02/2018 Status: F Source: [place] 12:00 AM [facility] REPOSITORY [facility] Imaging Services [address] [place] [address] Chest PA and Lateral MR#: [id number] Acct: [id number] Name: DOUG CAST Rep #: [id number] : 1935 M 83 From: Stiven Ball MD PCP: Vijay Mason MD Status: ADM IN Study: Chest PA and Lateral Date of Exam: 10/02/18 Exam# [id number] Ordering Dr: Lion Green STUDY: X-RAY CHEST [...] Stiven Ball MD at 13:51 EST Tel [phone], Service support , CC: ABISAI Green; Vijay Mason MD Dye Weigher: Signed PARTIAL THROMBOPLAST Collected: 10/01/2018 Status: F Source: [place] TIME 8:22 PM [facility] REPOSITORY TYPE CODE TESTS RESULT OUT OF REFERENCE UNITS RANGE LAB L300.4310 24.1-36.2 Seconds High PTT 72.6 Performed By: #### L300.4310 #### [facility] [address] [place] [address]. [place], [address] 12 LEAD ELECTROCARDIOGRAM Observed: 10/01/2018 Status: F Source: MARK 2:55 PM [facility] REPOSITORY [facility] Cardiovascular Services [address] [place] [address] 12 Lead EKG 09/28/182 MR#: [id number] Acct: [id number] Name: DOUG CAST Brittani Rep #: [id number] : 1935 83 From: Rah Barba MD Attending Dr: Maureen Siddiqui Status: ADM IN Ordering Dr: Baltazar Sultana MD Date: 09/28/18 Location: [facility] Sex: M C Admitted: 09/29/18 Test [...] Abnormal ECG Confirmed by BRET MACK, RAH ([id number]), editor in chief SARY MA ([id number]) on 10/01/2018 2:55:25 PM Referred By: JW Confirmed By:RAH BARBA MD 10/01/18 1455 Date Rah Barba MD CC: Maureen Siddiqui; BALTAZAR SULTANA MD; Vijay Mason MD Signed PARTIAL THROMBOPLAST Collected: 10/01/2018 Status: F Source: [place] TIME 2:00 PM [facility] REPOSITORY TYPE CODE TESTS RESULT OUT OF REFERENCE UNITS RANGE LAB L300.4310 24.1-36.2 Seconds High PTT 76.0 Performed By: #### L300.4310 #### [facility] [address] [place], [address] MODIFIED BARIUM Observed: 10/01/2018 Status: F Source: [place] SWALLOW STUDY 1:41 PM [facility] REPOSITORY [facility] Speech Pathology [address] [place] [address] Modified Barium Swallow Study MR#: [id number] Acct: [id number] Name: CASEYDOUG HUDSON Rep #: [id number] : 1935 83 From: Nohemy Booth M.A. [facility]-MEDICAL PARASITOLOGIST PRIMARY / SECONDARY DIAGNOSIS: HCAP/dysphagia REFERRING PHYSICIAN: [...] Pt is an 83 YOM admitted to [facility] on 09/29/2018 d/t shortness of breath, workup revealed sepsis with bacteremia secondary to gram positive pneumonia, atrial fibrillation w/ RVR, metabolic encephalopathy. Pt. known to [facility] MEDICAL PARASITOLOGIST department from admission earlier this year (Jul), [...] 1341 <Electronically signed by Nohemy Booth M.A., CCC-MEDICAL PARASITOLOGIST> Date Nohemy Booth M.A., CCC-MEDICAL PARASITOLOGIST Co-Signature Required for all Medicare patients Date/Time Co-Signature CC: BASIC METABOLIC Collected: 10/01/2018 Status: F Source: [place] PROFILE (BMP) 6:20 AM [facility] REPOSITORY TYPE CODE TESTS RESULT [...] GAP 11 Performed By: #### L500.2500 #### [facility] [address] [place], [place], [address] CBC W/DIFF, AUTOMATED Collected: 10/01/2018 Status: F Source: [place] 6:20 AM [facility] REPOSITORY TYPE CODE TESTS RESULT [...] Lymph 0.24 Performed By: #### L100.0100 #### [facility] [address] [facility] [id number] PARTIAL THROMBOPLAST Collected: 10/01/2018 Status: F Source: [place] TIME 6:20 AM [facility] REPOSITORY TYPE CODE TESTS RESULT OUT OF REFERENCE UNITS RANGE LAB L300.4310 24.1-36.2 Seconds High PTT 84.3 Performed By: #### L300.4310 #### [facility] [address] [facility] [address] MAGNESIUM Collected: 10/01/2018 Status: F Source: MARK 6:20 AM [facility] REPOSITORY Order Comment: Comments: ok to add on TYPE CODE TESTS RESULT OUT OF RANGE REFERENCE UNITS LAB L501.5200 1.6-2.6 mg/dL Normal MG 1.8 Performed By: ####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 [address] [place], [address] BRAIN/HEAD WITHOUT Observed: 08/16/2018 Status: F Source: MARK CONTRAST 12:00 AM [facility] REPOSITORY [facility] Imaging Services [address] [place] [address] Brain/Head without Contrast MR#: [id number] Acct: [id number] Name: DOUG CAST Brittani Rep #: [id number] : 1935 M 83 From: Boris Valderrama MD PCP: Vijay Mason MD Status: ADM IN Study: Brain/Head without Contrast Date of Exam: 08/16/18 Exam# [id number] Ordering Dr: Pablito Vela MD STUDY: CT [...] CC: Pablito Vela MD; Vijay Mason MD Dye Weigher: Signed Observed: 08/15/2018 Status: F Source: MARK CULTURE, URINE 2:58 PM [facility] REPOSITORY Urine Culture Culture exhibits no growth. Performed By: #### M100.0650 #### [facility] [address] [place], [place], [address] MRSA WOUND DNA BY Collected: 08/15/2018 Status: F Source: MARK PCR 10:45 AM [facility] REPOSITORY Order Comment: Order Date: 08/15/18 Specimen Source? Leg wound left TYPE CODE TESTS RESULT OUT OF RANGE REFERENCE UNITS LAB L8200.1100 Negative Normal MRSA Negative RESULT LAB L8200.1150 Negative High SA RESULT POSITIVE Performed By: #### L8200.1075 #### [facility] [address] [place], [address] CONSULTATION Observed: 08/15/2018 Status: F Source: [place] 10:36 AM [facility] REPOSITORY [facility] Medical Records Department [address] [place] [address] Consultation 08/15/18 1018 MR#: [id number] Acct: [id number] Name: DOUG CAST Rep #: [id number] : 1935 83 From: Zakia Meyer MD PCP: Vijay Mason MD Status: ADM IN Y Location: [address] ADDENDUM by Zakia Meyer MD on [...] back in 1999. Patient was brought to [facility] room yesterday because he was found [...] Reason: FEVER [facility]oprim) [facility] Last Admin: 08/15/18 09:35 Dose: Not Given Aspirin (Ecotrin) 81 [facility] Last Admin: 08/15/18 09:35 Dose: Not Given Ergocalciferol (Vitamin D) 50,000 unit PO BURGOS [facility] Finasteride (Proscar) 5 mg PO DAILY [facility] Last Admin: 08/15/18 09:36 Dose: Not Given Heparin Sodium (Porcine) (Heparin Na) 5,000 unit SC Q12 [facility] Last Admin: 08/15/18 09:49 Dose: 5,000 unit Hydralazine HCl (Apresoline Iv) 5 mg IV Q4H PRN PRN PRN Reason: SBP > 160 Piperacillin Sod/Tazobactam Sod (Zosyn) 3.375 gm in 50 mls @ 12.5 mls/hr IV Q12 [facility] Last Admin: 08/15/18 09:48 Dose: 12.5 mls/hr Vancomycin IV Pharmacy to Dose (1,000 ea/ Sodium Chloride) 500 mls @ 250 mls/hr IV X1 PRN; Protocol Sodium Chloride () 1,000 mls @ 100 mls/hr IV .Q10H [facility] Stop: 08/15/18 10:29 Last Admin: 08/15/18 01:17 Dose: 100 mls/hr Sodium Chloride () 1,000 mls @ 999 mls/hr IV .Q1H1M ONE Stop: 08/15/18 10:37 Last Admin: 08/15/18 09:52 Dose: 999 mls/hr Sodium Chloride () 1,000 mls @ 125 mls/hr IV .Q8H [facility] Last Admin: 08/15/18 09:53 Dose: 125 mls/hr Labetalol HCl (Trandate) 200 mg PO BID [facility] Last Admin: 08/15/18 09:36 Dose: Not Given Magnesium Hydroxide (Milk Of Magnesia) 30 ml PO DAILY PRN PRN Reason: Constipation Nutritional Formula (Lactose Free) (Ensure Enlive) 120 ml PO 4X/DAY [facility] Last Admin: 08/15/18 09:36 Dose: Not Given Ondansetron HCl (Zofran) 4 mg IV Q8H PRN PRN PRN Reason: NAUSEA Pravastatin Sodium (Pravachol) 40 mg PO QHS [facility] Sodium Chloride () 5 - 30 ml [...] care with Dr. Vela. Zakia Meyer MD [phone] 08/15/18 1032 <Electronically signed by Zakia Meyer MD> Date Zakia Meyer MD Cosigner Signature (if applicable): Date CC: Zakia Meyer MD; Bernardino Drake MD; Vijay Mason MD Signed KIDNEY AND BLADDER Observed: 08/15/2018 Status: F Source: [place] 10:33 AM [facility] REPOSITORY [facility] Imaging Services [address] [place] [address] Kidney and Bladder MR#: [id number] Acct: [id number] Name: DOUG CAST Rep #: [id number] : 1935 M 83 From: Dionte Castillo DO PCP: Vijay Mason MD Status: ADM IN Study: Kidney and Bladder Date of Exam: 08/15/18 Exam# [id number] Ordering Dr: Zakia Meyer MD STUDY: RENAL [...] Dionte Castillo DO at 16:08 EDT Tel [phone], Service support , CC: Zakia Meyer MD; Vijay Mason MD Dye Weigher: Signed AMMONIA Collected: 08/15/2018 Status: F Source: MARK 9:38 AM [facility] REPOSITORY TYPE CODE TESTS RESULT OUT OF RANGE REFERENCE UNITS LAB L503.5510 11-32 umol/L Normal AMMONIA 18.0 Performed By: #### L503.5510 #### [facility] [address] [place], [place], [address] BASIC METABOLIC Collected: 08/15/2018 Status: F Source: MARK PROFILE (BMP) 5:20 AM [facility] REPOSITORY TYPE CODE TESTS RESULT [...] 9 Performed By: #### L500.2500, L501.3620 #### [facility] [address] [place], [address] CPK TOTAL, CREATINE Collected: 08/15/2018 Status: F Source: MARK KINASE 5:20 AM [facility] REPOSITORY TYPE CODE TESTS RESULT OUT OF RANGE REFERENCE UNITS LAB L501.3620 39-308 U/L High CPK TOTAL 890 Performed By: #### L500.2500, L501.3620 #### [facility] [address] [place], [address] LACTIC ACID Collected: 08/15/2018 Status: F Source: MARK 1:33 AM [facility] REPOSITORY TYPE CODE TESTS RESULT OUT OF REFERENCE UNITS RANGE LAB L503.6005 0.4-2.0 mmol/L High LACTIC ACID 2.3 Result Comment: Critical Result(s) Called at: 02:27:05 08/15/2018 by: Cecilia Martin to CDotterer Performed By: #### L503.6005 #### [facility] [address] [place], [address] Observed: 08/15/2018 Status: F Source: MARK CULTURE, BLOOD (WB) 1:23 AM [facility] REPOSITORY BC No growth in 5 days. Performed By: #### M200.1000 #### [facility] [address] [place], [address] HISTORY AND PHYSICAL Observed: 08/15/2018 Status: F Source: MARK EXAM 1:08 AM [facility] REPOSITORY [facility] Medical Records Department [address] [place] [address] History and Physical 08/14/187 MR#: [id number] Acct: [id number] Name: DOUG CAST Rep #: [id number] : 1935 83 From: Chase Zavala MD PCP: Vijay Mason MD Status: ADM IN Location: [place] [id number] ADDENDUM by Chase Zavala MD on 08/15/18 at 0108 Code Visit Elevated troponin patient had elevated troponin at the ED. ED doctor reports consult cardiology. Per conversation between ED doctor and it assistant which was reported by ED doctor there [...] monitoring. Code Visit Inpatient Ankit AND M: 77740 Init Hosp L3 08/15/18 0037 <Electronically signed by Chase Zavala MD> Date Chase Zavala MD Cosigner Signature: Date (if applicable) CC: Chase Zavala MD; Vijay Mason MD Signed BASIC METABOLIC Collected: 08/15/2018 Status: F Source: MARK PROFILE (BMP) 12:25 AM [facility] REPOSITORY TYPE CODE TESTS RESULT [...] GAP 11 Performed By: #### L500.2500 #### [facility] [address] [place], [address] EMERGENCY DEPARTMENT Observed: 08/14/2018 Status: F Source: [place] SUMMARY 11:19 PM [facility] REPOSITORY [facility] Medical Records Department [address] [place] [address] Emergency Department Summary 08/14/182107 MR#: [id number] Acct: [id number] Name: DOUG CAST Rep #: [id number] : 1935 83 From: Ata Heath MD [...] 30 minutes. This note was generated with [employer] dictation software. It may contain incorrect words, [...] problems, contact your Primary Care Provider. Call [facility] ([phone]) or report to the closest Emergency Room. Call 911 if necessary. 08/14/18 0842 <Electronically signed by Ata Heath MD> Date Ata Heath MD Cosigner Signature (If Indicated): Date CC: Vijay Mason MD LACTIC ACID Collected: 08/14/2018 Status: F Source: MARK 9:15 PM [facility] REPOSITORY Order Comment: Yes/No query for Sepsis Lactate Rule Y TYPE CODE TESTS RESULT OUT OF REFERENCE UNITS RANGE LAB L503.6005 0.4-2.0 mmol/L High LACTIC ACID 2.1 Result Comment: CALLED [facility] WITH [facility]ICAL [facility] 08-14-18 AT 2154PM READ BACK BY SAME Performed By: #### L503.6005 #### [facility] [address] [facility]. [place], [place], [address] Observed: 08/14/2018 Status: F Source: MARK CULTURE, DEEP WOUND 8:05 PM [facility] REPOSITORY Order Date: 08/14/18 Gram Stain Gram [...] <=1 S (NF) indicates non-formulary drug at [facility]. Approval by Infectious Disease Specialist required before non-formulary drugs may be ordered and/or dispensed. Cult, Anaerobic No anaerobic bacteria isolated. Performed By: #### M100.1500 #### [facility] [address] [place], [place], [address] BRAIN/HEAD WITHOUT Observed: 08/14/2018 Status: F Source: [place] CONTRAST 6:54 PM [facility] REPOSITORY [facility] Imaging Services [address] [place] [address] Brain/Head without Contrast MR#: [id number] Acct: [id number] Name: DOUG CAST Rep #: [id number] : 1935 M 83 From: Dionte Castillo DO PCP: Vijay Mason MD Status: REG ER Study: Brain/Head without Contrast Date of Exam: 08/14/18 Exam# [id number] Ordering Dr: Ata Heath MD STUDY: CT [...] Dionte Castillo DO at 20:58 EDT Tel [phone], Service support , CC: Ata Heath MD; Vijay Mason MD Dye Weigher: Signed SPINE CERVICAL Observed: 08/14/2018 Status: F Source: [place] WITHOUT CONTRAS 6:54 PM [facility] REPOSITORY [facility] Imaging Services [address] [place] [address] Spine Cervical without Contras MR#: [id number] Acct: [id number] Name: DOUG CAST Rep #: [id number] : 1935 M 83 From: Dionte Castillo DO PCP: Vijay Mason MD Status: REG ER Study: Spine Cervical without Contras Date of Exam: 08/14/18 Exam# [id number] Ordering Dr: Ata Heath MD STUDY: CT [...] Dionte Castillo DO at 21:04 EDT Tel [phone], Service support , CC: Ata Heath MD; Vijay Mason MD Dye Weigher: Signed CHEST 1 VIEW Observed: 08/14/2018 Status: F Source: [place] (PORTABLE) 6:54 PM [facility] REPOSITORY [facility] Imaging Services [address] [place] [address] Chest 1 View (Portable) MR#: [id number] Acct: [id number] Name: DOUG CAST Rep #: [id number] : 1935 M 83 From: Dionte Castillo DO PCP: Vijay Mason MD Status: REG ER Study: Chest 1 View (Portable) Date of Exam: 08/14/18 Exam# [id number] Ordering Dr: Ata Heath MD STUDY: X-RAY [...] Dionte Castillo DO at 21:05 EDT Tel [phone], Service support , CC: Ata Heath MD; Vijay Mason MD Dye Weigher: Signed LUMBAR SPINE 2 OR 3 Observed: 08/14/2018 Status: F Source: [place] VIEWS 6:54 PM [facility] REPOSITORY [facility] Imaging Services [address] [place] [address] Lumbar Spine 2 or 3 Views MR#: [id number] Acct: [id number] Name: DOUG CAST Rep #: [id number] : 1935 M 83 From: Dionte Castillo DO PCP: Vijay Mason MD Status: REG ER Study: Lumbar Spine 2 or 3 Views Date of Exam: 08/14/18 Exam# [id number] Ordering Dr: Ata Heath MD STUDY: X-RAY [...] Signed: Dionte CastilloDO at 21:06 EDT Tel [phone], Service support , CC: Ata Heath MD; Vijay Mason MD Dye Weigher: Signed CBC W/DIFF, AUTOMATED Collected: 08/14/2018 Status: F Source: MARK 6:45 PM [facility] REPOSITORY TYPE CODE TESTS RESULT [...] MORPH C+C Performed By: #### L100.0100 #### [facility] [address] [place], [address] BASIC METABOLIC Collected: 08/14/2018 Status: C Source: [place] PROFILE (BMP) 6:45 PM [facility] REPOSITORY TYPE CODE TESTS RESULT [...] 12 Performed By: #### L500.2500, L501.4010 #### [facility] [address] [place], [address] TROPONIN-I Collected: 08/14/2018 Status: F Source: MARK 6:45 PM [facility] REPOSITORY TYPE CODE TESTS RESULT [...] 18 Performed By: #### L500.2500, L501.4010 #### [facility] [address] [place], [address] CPK TOTAL, CREATINE Collected: 08/14/2018 Status: F Source: MARK KINASE 6:45 PM [facility] REPOSITORY TYPE CODE TESTS RESULT OUT OF RANGE REFERENCE UNITS LAB L501.3620 39-308 U/L High CPK TOTAL 2125 Result Comment: Moderate Hemolysis, Result may be falsely increased. Performed By: #### L501.3620 #### [facility] [address] [facility] [place], [address] URINALYSIS, COMPLETE Collected: 08/14/2018 Status: F Source: MARK 5:35 PM [facility] REPOSITORY Order Comment: Order Date: 08/14/18 COLOR [...] 1+ URATE Performed By: #### L400.0001 #### [facility] [address] [facility] [place], [address] CREATININE, URINE Collected: 08/14/2018 Status: F Source: [place] 5:35 PM [facility] REPOSITORY Order Comment: Comments: Sent from ED TYPE CODE TESTS RESULT OUT OF RANGE REFERENCE UNITS LAB L502.0300 NO RANGE EST. mg/dL Normal URINE 253.00 CREAT Performed By: #### L502.0300 #### [facility] [address] [place], [address] URINE SODIUM Collected: 08/14/2018 Status: F Source: [place] 5:35 PM [facility] REPOSITORY Order Comment: Comments: Sent from ED TYPE CODE TESTS RESULT OUT OF RANGE REFERENCE UNITS LAB L501.5500 Not Establ. mmol/L Normal UR NA 55 Performed By: #### L501.5500 #### [facility] [address] [place], [address] PROGRESS Observed: 07/31/2018 Status: COMPLETED Source: [place] 11:32 AM [facility] REPOSITORY HNO ID: [id number] Author: Julisa Paulson (Maria Isabel) MARIA ISABEL Tran Service: (none) Author Type: LICENSED NURSE Type: Progress Notes Filed: 07/31/2018 1:51 PM Note Text: 82 year old male here for INACTIVATED INFLUENZA VACCINE. 3549-1414 Season Patient is identified by name and date of : Yes [] CONTRAINDICATIONS color enhanced section Age less than 6 months? No Allergy to eggs, chicken, chicken feathers, or chicken dander? No Allergy to thimerosal (a preservative) or formaldehyde, gelatin? No History of severe reaction to any vaccine component or a previous dose of influenza vaccination? No History of Guillain-[place] Syndrome within 6 weeks after a previous [...] sheet given? Yes See immunization activity in [facility] for details of immunizations adminstered today. Patient age: [age] year old For The 4414-3128 Flu Season 6-35 months old: Fluzone 0.25 [...] time. PROGRESS Observed: 07/31/2018 Status: COMPLETED Source: [place] 11:13 AM [facility] REPOSITORY HNO ID: [id number] Author: Rah Perez Service: (none) Author Type: [...] No jaundice or rash. No petechiae. NEUROLOGIC: shot coat tender II-XII are grossly intact. No focal motor weakness. MUSCULOSKELETAL: No muscle wasting. ASSESSMENT/PLAN: (D64.9) Anemia, unspecified type (primary encounter diagnosis) (N18.3) CKD (chronic kidney disease) stage 3, GFR 30-59 ml/min Assessment: -Tolerating and benefiting from Aranesp. -Maintaining appropriate iron levels. Plan: -Will continue every other week CBC/possible Aranesp. -Flu shot today. DO MARK Mendoza ABS GR + CBC Collected: 07/31/2018 Status: F Source: [place] 10:52 AM [facility] REPOSITORY TYPE CODE TESTS RESULT OUT OF REFERENCE UNITS RANGE LAB WWBC 3.70-11.00 k/uL [place] WBC 4.25 LAB WRBC 4.20-6.00 m/uL Low [place] RBC 3.55 LAB WHGB 13.0-17.0 g/dL Low [place] Hemoglobin 10.3 LAB WHCT 39.0-51.0 % Low [place] Hematocrit 34.5 LAB WMCV 80.0-100.0 fL [place] MCV 97.2 LAB WMCH 26.0-34.0 pg [place] MCH 29.0 LAB WMCHC 30.5-36.0 g/dL Low [place] MCHC 29.9 LAB WRDW 11.5-15.0 % [place] High RDW 15.2 LAB WPLT 150-400 k/uL [place] Platelet Cnt 176 LAB WMPV 9.0-12.7 fL [place] MPV 10.5 Result Comment: Test performed at: [facility] [place], [address] [place] [address]. LAB ABGRAN 1.45-7.50 k/uL Absol Gran 3.28 Count [place] ISTAT BMP Collected: 07/31/2018 Status: F Source: [place] 10:52 AM [facility] REPOSITORY TYPE CODE TESTS RESULT OUT OF [...] AND TIBC Collected: 07/31/2018 Status: F Source: [place] 10:52 AM [facility] REPOSITORY TYPE CODE TESTS RESULT OUT OF REFERENCE UNITS RANGE LAB IRN 41-186 ug/dL [place] 31 LAB TIBC 232-386 ug/dL Low TIBC 182 LAB SAT 15-57 % Transferrin Saturatn 17 Performed By: #### IRON, FERR #### [facility] [employer] [address] [place], [place] [address] FERRITIN Collected: 07/31/2018 Status: F Source: [place] 10:52 AM [facility] REPOSITORY TYPE CODE TESTS RESULT OUT OF REFERENCE UNITS RANGE LAB FERR 30.3-565.7 ng/mL Ferritin 448.4 Performed By: #### IRON, FERR #### [facility] [employer] [address] [address] CNOVSP Observed: 07/31/2018 Status: COMPLETED Source: [place] 9:50 AM [facility] REPOSITORY Visit (SP) Office (HEMAWS) DOUG CAST ([id number]) 1935 M [facility] Date Time Provider Department 07/31/18 9:50 [...] No jaundice or rash. No petechiae. NEUROLOGIC: shot coat tender II-XII are grossly intact. No focal motor [...] old male here for INACTIVATED INFLUENZA VACCINE. 3085-8240 Season Patient is identified by name and date of : Yes [] CONTRAINDICATIONS color enhanced section Age less than 6 months? No Allergy to eggs, chicken, chicken feathers, or chicken dander? No Allergy to thimerosal (a preservative) or formaldehyde, gelatin? No History of severe reaction to any vaccine component or a previous dose of influenza vaccination? No History of Guillain-[place] Syndrome within 6 weeks after a previous [...] sheet given? Yes See immunization activity in [facility] for details of immunizations adminstered today. Patient age: [age] year old For The 0812-9241 Flu Season 6-35 months old: Fluzone 0.25 [...] one months time. Referring Provider: RAH PEREZ [[id number]] Allergies As of Date: 07/31/2018 (No Known Allergies) Date Reviewed: 07/31/2018 Reviewed by: Julisa Paulson (Fueler) MARIA ISABEL Tran - Fully Assessed Reason [...] lab results Julisa Tran LPN >> Julisa Trna LPN SunJul 31, 2018 11:32 AM Status: Signed Influenza virus vaccine given as ordered. Right deltiod Julisa Tran LPN Encounter Status:Closed by RAH PEREZ DO on 07/31/18 [place] ABS GR + CBC Collected: 07/17/2018 Status: F Source: [place] 11:19 AM [facility] REPOSITORY TYPE CODE TESTS RESULT OUT OF REFERENCE UNITS RANGE LAB WWBC 3.70-11.00 k/uL [place] WBC 5.31 LAB WRBC 4.20-6.00 m/uL Low [place] RBC 3.35 LAB WHGB 13.0-17.0 g/dL Low [place] Hemoglobin 9.7 LAB WHCT 39.0-51.0 % Low [place] Hematocrit 31.6 LAB WMCV 80.0-100.0 fL [place] MCV 94.3 LAB WMCH 26.0-34.0 pg [place] MCH 29.0 LAB WMCHC 30.5-36.0 g/dL [place] MCHC 30.7 LAB WRDW 11.5-15.0 % [place] RDW 13.7 LAB WPLT 150-400 k/uL [place] Platelet Cnt 176 LAB WMPV 9.0-12.7 fL [place] MPV 10.1 Result Comment: Test performed at: [facility], [address] [place] [address] Rd[address] [place] [address]. LAB ABGRAN 1.45-7.50 k/uL Absol Gran 4.32 Count [place] ABS GR + CBC Collected: 07/03/2018 Status: F Source: [place] 12:00 PM [facility] REPOSITORY TYPE CODE TESTS RESULT OUT OF REFERENCE UNITS RANGE LAB WWBC 3.70-11.00 k/uL [place] WBC 6.20 LAB WRBC 4.20-6.00 m/uL Low [place] RBC 3.49 LAB WHGB 13.0-17.0 g/dL Low [place] Hemoglobin 10.1 LAB WHCT 39.0-51.0 % Low [place] Hematocrit 33.3 LAB WMCV 80.0-100.0 fL [place] MCV 95.4 LAB WMCH 26.0-34.0 pg [place] MCH 28.9 LAB WMCHC 30.5-36.0 g/dL Low [place] MCHC 30.3 LAB WRDW 11.5-15.0 % [place] RDW 13.4 LAB WPLT 150-400 k/uL [place] Platelet Cnt 166 LAB WMPV 9.0-12.7 fL [place] MPV 10.6 Result Comment: Test performed at: [facility], [address] [place] [address]. LAB ABGRAN 1.45-7.50 k/uL Absol Gran 5.24 Count [place] ABS GR + CBC Collected: 06/19/2018 Status: F Source: [place] 10:49 AM [facility] REPOSITORY TYPE CODE TESTS RESULT OUT OF REFERENCE UNITS RANGE LAB WWBC 3.70-11.00 k/uL [place] WBC 5.14 LAB WRBC 4.20-6.00 m/uL Low [place] RBC 3.77 LAB WHGB 13.0-17.0 g/dL Low [place] Hemoglobin 11.0 LAB WHCT 39.0-51.0 % Low [place] Hematocrit 35.8 LAB WMCV 80.0-100.0 fL [place] MCV 95.0 LAB WMCH 26.0-34.0 pg [place] MCH 29.2 LAB WMCHC 30.5-36.0 g/dL [place] MCHC 30.7 LAB WRDW 11.5-15.0 % [place] RDW 14.4 LAB WPLT 150-400 k/uL [place] Platelet Cnt 168 LAB WMPV 9.0-12.7 fL [place] MPV 10.4 Result Comment: Test performed at: [facility] [place], [address] [place] [address] Rd[address] [place] [address]. LAB ABGRAN 1.45-7.50 k/uL Absol Gran 4.29 Count [place] ABS GR + CBC Collected: 06/05/2018 Status: F Source: [place] 11:00 AM [facility] REPOSITORY TYPE CODE TESTS RESULT OUT OF REFERENCE UNITS RANGE LAB WWBC 3.70-11.00 k/uL [place] WBC 3.72 LAB WRBC 4.20-6.00 m/uL Low [place] RBC 3.23 LAB WHGB 13.0-17.0 g/dL Low [place] Hemoglobin 9.5 LAB WHCT 39.0-51.0 % Low [place] Hematocrit 30.9 LAB WMCV 80.0-100.0 fL [place] MCV 95.7 LAB WMCH 26.0-34.0 pg [place] MCH 29.4 LAB WMCHC 30.5-36.0 g/dL [place] MCHC 30.7 LAB WRDW 11.5-15.0 % [place] RDW 14.0 LAB WPLT 150-400 k/uL Low [place] Platelet Cnt 119 LAB WMPV 9.0-12.7 fL [place] MPV 10.7 LAB ABGRAN 1.45-7.50 k/uL Absol Gran Count 2.76 PROGRESS Observed: 05/25/2018 Status: COMPLETED Source: [place] 3:00 PM [facility]AMP[facility] REPOSITORY HNO ID: [id number] Author: Angel Medrano Service: (none) Author Type: [...] of these are being followed here in [place]. At this point I am most concerned [...] with more than 50% of the total kwvk-hn-glyb time of the visit in counseling / coordination of care. [place] ABS GR + CBC Collected: 05/22/2018 Status: F Source: [place] 11:07 AM [facility] REPOSITORY TYPE CODE TESTS RESULT OUT OF REFERENCE UNITS RANGE LAB WWBC 3.70-11.00 k/uL [place] WBC 4.27 LAB WRBC 4.20-6.00 m/uL Low [place] RBC 3.45 LAB WHGB 13.0-17.0 g/dL Low [place] Hemoglobin 10.2 LAB WHCT 39.0-51.0 % Low [place] Hematocrit 32.8 LAB WMCV 80.0-100.0 fL [place] MCV 95.1 LAB WMCH 26.0-34.0 pg [place] MCH 29.6 LAB WMCHC 30.5-36.0 g/dL [place] MCHC 31.1 LAB WRDW 11.5-15.0 % [place] RDW 14.3 LAB WPLT 150-400 k/uL Low [place] Platelet Cnt 116 LAB WMPV 9.0-12.7 fL [place] MPV 11.0 Result Comment: Test performed at: [facility] [place], [address] [place] [address]. LAB ABGRAN 1.45-7.50 k/uL Absol Gran 3.30 Count CNOV Observed: 05/17/2018 Status: COMPLETED Source: [place] 9:[address] [facility] REPOSITORY Office Visit (AGMIL) DOUG CAST ([id number]) 1935 M [facility] Date Time Provider Department 05/17/18 9:15 [...] of these are being followed here in [place]. At this point I am most concerned [...] with more than 50% of the total oqcc-ex-vxcf time of the visit in counseling / coordination of care. Referring Provider: VIJAY MASON [[id number]] Allergies As of Date: 05/17/2018 (No Known Allergies) Date Reviewed: 05/17/2018 Reviewed by: Angel Medrano - Fully Assessed Reason for Visit: Stenosis [1326] Cmt: Doug is here for follow up carotid stenosis. 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 Cardiovascular Services [address] [place] [address] Carotid Duplex Ultrasound 05/07/18 1001 MR#: [id number] Acct: [id number] Name: DOUG CAST Rep #: [id number] : 1935 82 From: Karthik Holloway MD Attending Dr: ANGEL MEDRANO MD Status: REG CLI Ordering Dr: Angel Medrano MD Date: 05/07/18 Location: [facility] Sex: M C Admitted: Reason [...] the left vertebral artery. Procedure Carotid Duplex 57589. Exam performed in department. Interpretation Summary Mild (<50%) stenosis right extracranial internal carotid. Mild (<50%) stenosis left extracranial internal carotid. Flow within the vertebral arteries is antegrade bilaterally. Ordering Physician: ANGEL MEDRANO Referring Physician: Vijay Mason Performed By: Kerri Alvarez RVT 05/08/18 1113 Date Karthik Holloway MD CC: ANGEL MEDRANO MD; Vijay Mason MD Date Dictated: 05/07/18 1001 Date Transcribed: 05/08/18 1113 Dye Weigher: Signed [place] ABS GR + CBC Collected: 05/08/2018 Status: F Source: [place] 11:11 AM [facility] REPOSITORY TYPE CODE TESTS RESULT OUT OF REFERENCE UNITS RANGE LAB WWBC 3.70-11.00 k/uL [place] WBC 3.38 LAB WRBC 4.20-6.00 m/uL Low [place] RBC 3.37 LAB WHGB 13.0-17.0 g/dL Low [place] Hemoglobin 10.0 LAB WHCT 39.0-51.0 % Low [place] Hematocrit 31.9 LAB WMCV 80.0-100.0 fL [place] MCV 94.7 LAB WMCH 26.0-34.0 pg [place] MCH 29.7 LAB WMCHC 30.5-36.0 g/dL [place] MCHC 31.3 LAB WRDW 11.5-15.0 % [place] RDW 13.5 LAB WPLT 150-400 k/uL Low [place] Platelet Cnt 114 LAB WMPV 9.0-12.7 fL [place] MPV 10.5 Result Comment: Test performed at: [facility], [address] [place] [address] Rd., [place] [address]. LAB ABGRAN 1.45-7.50 k/uL Absol Gran 2.64 Count IRON AND TIBC Collected: 04/24/2018 Status: F Source: [place] 11:17 AM [facility] REPOSITORY TYPE CODE TESTS RESULT OUT OF REFERENCE UNITS RANGE LAB IRN 41-186 ug/dL [place] 34 LAB TIBC 232-386 ug/dL Low TIBC 168 LAB SAT 15-57 % Transferrin Saturatn 20 Performed By: #### IRON, FERR #### [facility] [address] [place], [place] [address] FERRITIN Collected: 04/24/2018 Status: F Source: [place] 11:17 AM [facility] REPOSITORY TYPE CODE TESTS RESULT OUT OF REFERENCE UNITS RANGE LAB FERR 30.3-565.7 ng/mL Ferritin 348.0 Performed By: #### IRON, FERR #### [facility] [address] [place], [place] [address] [place] CBC AND DIFF Collected: 04/24/2018 Status: F Source: [place] 11:16 AM [facility] REPOSITORY TYPE CODE TESTS RESULT OUT OF REFERENCE UNITS RANGE LAB WWBC 3.70-11.00 k/uL Low [place] WBC 3.58 LAB WRBC 4.20-6.00 m/uL Low [place] RBC 3.43 LAB WHGB 13.0-17.0 g/dL Low [place] Hemoglobin 10.2 LAB WHCT 39.0-51.0 % Low [place] Hematocrit 32.8 LAB WMCV 80.0-100.0 fL [place] MCV 95.6 LAB WMCH 26.0-34.0 pg [place] MCH 29.7 LAB WMCHC 30.5-36.0 g/dL [place] MCHC 31.1 LAB WRDW 11.5-15.0 % [place] RDW 13.3 LAB WPLT 150-400 k/uL Low [place] Platelet Cnt 109 LAB WMPV 9.0-12.7 fL [place] MPV 10.9 Result Comment: Test performed at: [address] [place] [address]. LAB WNEUT % [place] Neut% 70.3 LAB WLYMP % [place] Lymp% 15.1 LAB WMONOC % Amrk Galax% 8.4 LAB WEOS % [place] Eos% 5.9 LAB WBASO % [place] Baso% 0.3 LAB WANEUT 1.45-7.5 k/uL 0 [place] Abs Neut 2.52 LAB WALYMP 1.00-4.0 k/uL Low 0 [place] Abs Lymp 0.54 LAB WAMONO <0.87 k/uL [place] Abs Galax 0.30 LAB WAEOS <0.46 k/uL [place] Abs Eos 0.21 LAB WABASO <0.11 k/uL [place] Abs Baso <0.03 DOWNTIME REPORT Observed: 04/18/2018 Status: F Source: [place] 1:15 PM [facility] REPOSITORY [facility] Medical Records Department [address] [place] [address] Downtime Report MR#: [id number] Acct: [id number] Name: DOUG CAST Rep #: [id number] : 1935 82 From: Harpreet Ma PCP: Status: REG CLI This patient was seen during an EMR downtime April 01, 2018 - April 08, 2018. This patient may have a combination of paper and electronic documentation or all paper documentation. All documentation is viewable within the e-chart portion of [facility] for each patient visit. [place] ABS GR + CBC Collected: 04/10/2018 Status: F Source: [place] 10:52 AM [facility] REPOSITORY TYPE CODE TESTS RESULT OUT OF REFERENCE UNITS RANGE LAB WWBC 3.70-11.00 k/uL [place] WBC 3.93 LAB WRBC 4.20-6.00 m/uL Low [place] RBC 3.71 LAB WHGB 13.0-17.0 g/dL Low [place] Hemoglobin 11.0 LAB WHCT 39.0-51.0 % Low [place] Hematocrit 36.0 LAB WMCV 80.0-100.0 fL [place] MCV 97.0 LAB WMCH 26.0-34.0 pg [place] MCH 29.6 LAB WMCHC 30.5-36.0 g/dL [place] MCHC 30.6 LAB WRDW 11.5-15.0 % [place] RDW 13.2 LAB WPLT 150-400 k/uL [place] Platelet Cnt 111 LAB WMPV 9.0-12.7 fL [place] MPV 11.3 Result Comment: Test performed at: [facility], [address] [place] [address]. LAB ABGRAN 1.45-7.50 k/uL Absol Gran 2.93 Count Observed: 04/05/2018 Status: F Source: [place] CULTURE, DEEP WOUND 9:00 AM [facility] REPOSITORY RESULT(S) PREVIOUSLY REPORTED ON [...] 160 R (NF) indicates non-formulary drug at [facility]. Approval by Infectious Disease Specialist required before non-formulary drugs may be ordered and/or dispensed. Cult, Anaerobic No anaerobic bacteria isolated. Performed By: #### M100.1500 #### [facility] [address] [place], [address] [place] ABS GR + CBC Collected: 03/27/2018 Status: F Source: [place] 11:01 AM [facility] REPOSITORY TYPE CODE TESTS RESULT OUT OF REFERENCE UNITS RANGE LAB WWBC 3.70-11.00 k/uL [place] WBC 4.88 LAB WRBC 4.20-6.00 m/uL Low [place] RBC 3.51 LAB WHGB 13.0-17.0 g/dL Low [place] Hemoglobin 10.5 LAB WHCT 39.0-51.0 % Low [place] Hematocrit 34.6 LAB WMCV 80.0-100.0 fL [place] MCV 98.6 LAB WMCH 26.0-34.0 pg [place] MCH 29.9 LAB WMCHC 30.5-36.0 g/dL Low [place] MCHC 30.3 LAB WRDW 11.5-15.0 % [place] RDW 13.3 LAB WPLT 150-400 k/uL [place] Platelet Cnt 138 LAB WMPV 9.0-12.7 fL [place] MPV 10.5 Result Comment: Test performed at: [facility] [place], [address] [place] [address]. LAB ABGRAN 1.45-7.50 k/uL Absol Gran 4.02 Count Observed: 03/15/2018 Status: F Source: [place] CULTURE, DEEP WOUND 11:30 AM [facility] REPOSITORY Comments: LLE ULCER Gram Stain Gram [...] <=1 S (NF) indicates non-formulary drug at [facility]. Approval by Infectious Disease Specialist required [...] <=0.5 S (NF) indicates non-formulary drug at [facility]. Approval by Infectious Disease Specialist required before non-formulary drugs may be ordered and/or dispensed. * CLSI guidelines does not recommend testing of cephalosporins. This interpretation is deduced from Beta-lactam/penicillin results. Cult, Anaerobic No anaerobic bacteria isolated. Performed By: #### M100.1500 #### [facility] [address] [place], [address] [place] ABS GR + CBC Collected: 03/13/2018 Status: F Source: [place] 11:13 AM [facility] REPOSITORY TYPE CODE TESTS RESULT OUT OF REFERENCE UNITS RANGE LAB WWBC 3.70-11.00 k/uL Low [place] WBC 3.24 LAB WRBC 4.20-6.00 m/uL Low [place] RBC 3.68 LAB WHGB 13.0-17.0 g/dL Low [place] Hemoglobin 11.0 LAB WHCT 39.0-51.0 % Low [place] Hematocrit 36.6 LAB WMCV 80.0-100.0 fL [place] MCV 99.5 LAB WMCH 26.0-34.0 pg [place] MCH 29.9 LAB WMCHC 30.5-36.0 g/dL Low [place] MCHC 30.1 LAB WRDW 11.5-15.0 % [place] RDW 15.0 LAB WPLT 150-400 k/uL [place] Platelet Cnt 102 LAB WMPV 9.0-12.7 fL [place] MPV 10.3 Result Comment: Test performed at: [facility], [address] [place] [address]. LAB ABGRAN 1.45-7.50 k/uL Absol Gran 2.45 Count BASIC METABOLIC Collected: 03/01/2018 Status: F Source: [place] PROFILE (BMP) 1:29 PM [facility] REPOSITORY TYPE CODE TESTS RESULT [...] GAP 5 Performed By: #### L500.2500 #### [facility] [address] [place], [address] VITAMIN D,25 HYDROXY Collected: 03/01/2018 Status: F Source: [place] 1:29 PM [facility] REPOSITORY TYPE CODE TESTS RESULT OUT OF RANGE REFERENCE UNITS LAB L506.1000 29.95-100.01 ng/mL Normal Vitamin D 76.4 25-OH Result Comment: Vitamin D 25(OH) Status Range Deficiency <20 ng/mL (50nmol/L) Insuffciency 20 - 30 ng/mL (50 - 75 nmol/L) Sufficiency 30 - 100 ng/mL (75 - 250 nmol/L) Toxicity >100 ng/mL (>250 nmol/L) Performed By: #### L506.1000 #### [facility] [address] [place], [address] CBC W/DIFF, AUTOMATED Collected: 03/01/2018 Status: F Source: [place] 1:29 PM [facility] REPOSITORY TYPE CODE TESTS RESULT [...] MOD DEC Performed By: #### L100.0100 #### [facility] [address] [place], [place], [address] [place] ABS GR + CBC Collected: 02/27/2018 Status: F Source: [place] 10:50 AM [facility] REPOSITORY TYPE CODE TESTS RESULT OUT OF REFERENCE UNITS RANGE LAB WWBC 3.70-11.00 k/uL [place] WBC 3.97 LAB WRBC 4.20-6.00 m/uL Low [place] RBC 3.08 LAB WHGB 13.0-17.0 g/dL Low [place] Hemoglobin 9.3 LAB WHCT 39.0-51.0 % Low [place] Hematocrit 30.7 LAB WMCV 80.0-100.0 fL [place] MCV 99.7 LAB WMCH 26.0-34.0 pg [place] MCH 30.2 LAB WMCHC 30.5-36.0 g/dL Low [place] MCHC 30.3 LAB WRDW 11.5-15.0 % [place] RDW 14.5 LAB WPLT 150-400 k/uL Low [place] Platelet Cnt 100 LAB WMPV 9.0-12.7 fL [place] MPV 11.3 Result Comment: Test performed at: [facility], [address] [place] [address]. LAB ABGRAN 1.45-7.50 k/uL Absol Gran 2.71 Count [place] ABS GR + CBC Collected: 02/13/2018 Status: F Source: [place] 11:50 AM [facility] REPOSITORY TYPE CODE TESTS RESULT OUT OF REFERENCE UNITS RANGE LAB WWBC 3.70-11.00 k/uL Low [place] WBC 3.53 LAB WRBC 4.20-6.00 m/uL [place] RBC 3.34 LAB WHGB 13.0-17.0 g/dL Low [place] Hemoglobin 10.0 LAB WHCT 39.0-51.0 % Low [place] Hematocrit 32.9 LAB WMCV 80.0-100.0 fL [place] MCV 98.5 LAB WMCH 26.0-34.0 pg [place] MCH 29.9 LAB WMCHC 30.5-36.0 g/dL Low [place] MCHC 30.4 LAB WRDW 11.5-15.0 % [place] RDW 14.4 LAB WPLT 150-400 k/uL [place] Platelet Cnt 103 LAB WMPV 9.0-12.7 fL [place] MPV 11.8 Result Comment: Test performed at: [facility], [address] [place] [address]. LAB ABGRAN 1.45-7.50 k/uL Absol Gran 2.83 Count PROGRESS Observed: 01/30/2018 Status: COMPLETED Source: [place] 10:57 AM [facility] REPOSITORY HNO ID: [id number] Author: Rah Perez Service: (none) Author Type: [...] No jaundice or rash. No petechiae. NEUROLOGIC: shot coat tender II-XII are grossly intact. No focal motor [...] + CBC Collected: 01/30/2018 Status: F Source: [place] 10:38 AM [facility] REPOSITORY TYPE CODE TESTS RESULT OUT OF REFERENCE UNITS RANGE LAB WWBC 3.70-11.00 k/uL [place] WBC 6.30 LAB WRBC 4.20-6.00 m/uL Low [place] RBC 3.55 LAB WHGB 13.0-17.0 g/dL Low [place] Hemoglobin 10.5 LAB WHCT 39.0-51.0 % Low [place] Hematocrit 34.9 LAB WMCV 80.0-100.0 fL [place] MCV 98.3 LAB WMCH 26.0-34.0 pg [place] MCH 29.6 LAB WMCHC 30.5-36.0 g/dL Low [place] MCHC 30.1 LAB WRDW 11.5-15.0 % [place] RDW 14.6 LAB WPLT 150-400 k/uL [place] Platelet Cnt 195 LAB WMPV 9.0-12.7 fL [place] MPV 10.0 Result Comment: Test performed at: [facility], [address] [place] [address]. LAB ABGRAN 1.45-7.50 k/uL Absol Gran 5.23 Count [place] ISTAT BMP Collected: 01/30/2018 Status: F Source: [place] 10:38 AM [facility] REPOSITORY TYPE CODE TESTS RESULT [...] GFR. CNOVSP Observed: 01/30/2018 Status: COMPLETED Source: [place] 10:30 AM [facility] REPOSITORY Visit (SP) Office (HEMASIYA) DOUG CAST ([id number]) 1935 M [facility] Date Time Provider Department 01/30/18 10:30 [...] No jaundice or rash. No petechiae. NEUROLOGIC: shot coat tender II-XII are grossly intact. No focal motor [...] Rah Perez DO Referring Provider: RAH PEREZ [[id number]] Allergies As of Date: 01/30/2018 (No Known [...] (moder*INVALID FOR* Visit Notes: >> Julisa Paulson (Fueler) Marc MARIA ISABEL SunJan 30, 2018 10:49 AM Status: Signed Est pt, discuss recent lab results 6 month f/u Julisa TranMARIA ISABEL Encounter Status:Closed by RAH PEREZ DO on 01/30/18 PREALBUMIN Collected: 01/25/2018 Status: F Source: [place] 12:40 PM [facility] REPOSITORY TYPE CODE TESTS RESULT OUT OF REFERENCE UNITS RANGE LAB L506.0500 20.0-40.0 mg/dL Low PREALBUMIN 7.0 Performed By: #### L506.0500 #### [facility] [address] [place], [place], [id number] CBC W/DIFF, AUTOMATED Collected: 01/25/2018 Status: F Source: [place] 12:40 PM [facility] REPOSITORY TYPE CODE TESTS RESULT [...] LYMPHOPENIA NOTED Performed By: #### L100.0100 #### [facility] [address] [place], [address] WOUND CTR HISTORY Observed: 01/25/2018 Status: F Source: [place] AND PHYSICAL 11:51 AM [facility] REPOSITORY [facility] [address] [place] [address] Wound Ctr History AND Physical 01/25/18 1141 MR#: [id number] Acct: [id number] Name: DOUG CAST Rep #: [id number] : 1935 82 From: Tena Staples ROBOTICS TECHNOLOGIST-C PCP: Vijay Mason Status: REG RCR Y [...] Date Recorded By Document 01/25/18 10:11 DV [id number] 01/25/18 10:58 DV Wound Center Nurse 1 [Ulcer Assessment] #5 Right Medial Ankle -Combined with other wound No -Current Size (cm) - Length 3.0 WC - Nurse 2 - General Ulcer CM Notes Start: 01/25/18 09:27 Freq: Status: Active Protocol: Activity Type Activity Date Activity User E-Sign Co-Sign Detail Recorded Client Recorded Date Recorded By Document 01/25/18 11:25 MW [id number] 01/25/18 11:33 MW Wound Center Nurse 2 [...] Date Recorded By Document 01/25/18 11:25 MW [id number] 01/25/18 11:33 [place] Wound Center Nurse 2 [...] Source: [place] CULTURE, DEEP WOUND 11:30 AM [facility] REPOSITORY Comments: LLE ULCER Gram Stain Gram [...] <=0.5 S (NF) indicates non-formulary drug at [facility]. Approval by Infectious Disease Specialist required before non-formulary drugs may be ordered and/or dispensed. * CLSI guidelines does not recommend testing of cephalosporins. This interpretation is deduced from Beta-lactam/penicillin results. Cult, Anaerobic No anaerobic bacteria isolated. Performed By: #### M100.1500 #### [facility] [address] [place], [address] [place] ABS GR + CBC Collected: 01/18/2018 Status: F Source: [place] 11:25 AM [facility] REPOSITORY TYPE CODE TESTS RESULT OUT OF REFERENCE UNITS RANGE LAB WWBC 3.70-11.00 k/uL [place] WBC 5.46 LAB WRBC 4.20-6.00 m/uL Low [place] RBC 3.35 LAB WHGB 13.0-17.0 g/dL Low [place] Hemoglobin 9.9 LAB WHCT 39.0-51.0 % Low [place] Hematocrit 32.6 LAB WMCV 80.0-100.0 fL [place] MCV 97.3 LAB WMCH 26.0-34.0 pg [place] MCH 29.6 LAB WMCHC 30.5-36.0 g/dL Low [place] MCHC 30.4 LAB WRDW 11.5-15.0 % [place] RDW 13.6 LAB WPLT 150-400 k/uL [place] Platelet Cnt 181 LAB WMPV 9.0-12.7 fL [place] MPV 10.3 Result Comment: Test performed at: [facility], [address] [place] [address]. LAB ABGRAN 1.45-7.50 k/uL Absol Gran 4.36 Count FERRITIN Collected: 01/18/2018 Status: F Source: [place] 11:25 [facility] REPOSITORY TYPE CODE TESTS RESULT OUT OF REFERENCE UNITS RANGE LAB FERR 30.3-565.7 ng/mL Ferritin 463.0 Performed By: #### FERR, IRON #### [facility] [address] [place], [place] [address] IRON AND TIBC Collected: 01/18/2018 Status: F Source: [place] 11:25 AM [facility] REPOSITORY TYPE CODE TESTS RESULT OUT OF REFERENCE UNITS RANGE LAB IRN 41-186 ug/dL Iron 55 LAB TIBC 232-386 ug/dL Low TIBC 159 LAB SAT 15-57 % Transferrin Saturatn 35 Performed By: #### FERR, IRON #### [facility] [address] [place], [place] [address] MARK ABS GR + CBC Collected: 01/02/2018 Status: F Source: [place] 10:44 AM [facility] REPOSITORY TYPE CODE TESTS RESULT OUT OF REFERENCE UNITS RANGE LAB WWBC 3.70-11.00 k/uL Mark WBC 5.32 LAB WRBC 4.20-6.00 m/uL Low [place] RBC 3.58 LAB WHGB 13.0-17.0 g/dL Low Mark Hemoglobin 10.6 LAB WHCT 39.0-51.0 % Low [place] Hematocrit 34.8 LAB WMCV 80.0-100.0 fL [place] MCV 97.2 LAB WMCH 26.0-34.0 pg [place] MCH 29.6 LAB WMCHC 30.5-36.0 g/dL [place] MCHC 30.5 LAB WRDW 11.5-15.0 % [place] RDW 13.6 LAB WPLT 150-400 k/uL Mark Platelet Cnt 151 LAB WMPV 9.0-12.7 fL Mark MPV 10.5 Result Comment: Test performed at: [address] [place] [address]. LAB ABGRAN 1.45-7.50 k/uL Absol Gran 4.35 Count MARK ABS GR + CBC Collected: 12/19/2017 Status: F Source: [place] 10:27 AM [facility] REPOSITORY TYPE CODE TESTS RESULT OUT OF REFERENCE UNITS RANGE LAB WWBC 3.70-11.00 k/uL [place] WBC 5.03 LAB WRBC 4.20-6.00 m/uL Low Mark RBC 3.58 LAB WHGB 13.0-17.0 g/dL Low [place] Hemoglobin 10.7 LAB WHCT 39.0-51.0 % Low [place] Hematocrit 35.2 LAB WMCV 80.0-100.0 fL [place] MCV 98.3 LAB WMCH 26.0-34.0 pg [place] MCH 29.9 LAB WMCHC 30.5-36.0 g/dL Low [place] MCHC 30.4 LAB WRDW 11.5-15.0 % Mark RDW 14.0 LAB WPLT 150-400 k/uL Low [place] Platelet Cnt 144 LAB WMPV 9.0-12.7 fL [place] MPV 10.8 Result Comment: Test performed at: [facility], [address] [place] [address]. LAB ABGRAN 1.45-7.50 k/uL Absol Gran 3.92 Count MARK ABS GR + CBC Collected: 11/21/2017 Status: F Source: [place] 10:53 AM [facility] REPOSITORY TYPE CODE TESTS RESULT OUT OF REFERENCE UNITS RANGE LAB WWBC 3.70-11.00 k/uL [place] WBC 5.01 LAB WRBC 4.20-6.00 m/uL Low [place] RBC 3.43 LAB WHGB 13.0-17.0 g/dL Low [place] Hemoglobin 10.3 LAB WHCT 39.0-51.0 % Low [place] Hematocrit 33.3 LAB WMCV 80.0-100.0 fL [place] MCV 97.1 LAB WMCH 26.0-34.0 pg [place] MCH 30.0 LAB WMCHC 30.5-36.0 g/dL Mark MCHC 30.9 LAB WRDW 11.5-15.0 % Mark RDW 13.7 LAB WPLT 150-400 k/uL Low [place] Platelet Cnt 129 LAB WMPV 9.0-12.7 fL [place] MPV 9.9 Result Comment: Test performed at: [facility], [address] [place] [address]. LAB ABGRAN 1.45-7.50 k/uL Absol Gran 3.87 Count HOSP Observed: 11/21/2017 Status: COMPLETED Source: [place] 10:30 AM [facility] REPOSITORY Infusion Center (HEMA[facility]) DOUG CAST ([id number]) 1935 [address] [facility] Date Time Provider Department 11/21/17 10:30 AM INJECTION [facility] W[facility] HEMAWS During your visit today, we recorded the following information about you: Sheila Moctezuma LPN 11/21/2017 11:14 AM Signed Injection deferred, parameters not met. Hgb 10.3. Sheila Moctezuma LPN Referring Provider: RAH PEREZ [[id number]] Allergies As of Date: 11/21/2017 (No Known [...] Drug No Known Unknown [facility] Allergy/416 Allergies/R07623 [facility] 038834(SNOM 0388(RXNORM) Repository ED CT) /[id number] NO KNOWN [facility] 6(SNOMED ALLERGIES [facility]) Repository Drug NO KNOWN [facility] Class/31271 ALLERGIES [place] 1003(SNOMED Repository CT) ENCOUNTERS ENCOUNTERS ADMIT/DISCHARGE ACCOUNT NUMBER ADMITTING ENCOUNTER LOCATION SOURCE CLASS 10/31/2018 [id number] Ambulatory BMSBuilding: [place] BMS.[facility] Repository 10/13/2018/10/16/20 [id number] [place], [place] Inpatient Mark [place] 18 Encounter [facility] ding:PCURoom Repository : [id number]: 1 10/13/2018 [id number] [place], [place] Ambulatory BMSBuilding: [place] BMS.[facility] Repository 10/13/2018 [id number] [place], [place] Ambulatory BMSBuilding: Mark BMS.[facility] Repository 10/13/2018 [id number] [place], [place] Ambulatory BMSBuilding: [place] BMS.[facility] Repository 10/13/2018 [id number] [place], [place] Ambulatory BMSBuilding: [place] BMS.[facility] Repository 10/12/2018/10/13/20 [id number] GeraChristiano Chi Inpatient Mark [place] 18 Encounter [facility] ding:TCURoom Repository : [id number]: 1 10/08/2018/10/12/20 [id number] Sementi, Inpatient [place] Mark 18 [place] Encounter [facility] ding:AB5Cccu Repository : MP301Apj: 1 10/08/2018 [id number] Sementi, Ambulatory BMSBuilding: Mark Gail BMS.[facility] Repository 10/08/2018 [id number] Sementi, Ambulatory BMSBuilding: Mark Gail BMS.[facility] Repository 10/08/2018 [id number] Sementi, Ambulatory BMSBuilding: [place] Gail BMS.[facility] Repository 10/08/2018 [id number] Sementi, Ambulatory BMSBuilding: [place] Gail BMS.[facility] Repository 10/08/2018 [id number] Sementi, Ambulatory BMSBuilding: [place] Gail BMS.[facility] Repository 10/08/2018 [id number] Ambulatory [facility] ding:OLS.AVE Repository B 10/07/2018 [id number] Ambulatory [facility] ding:OLS.AVE Repository B 10/05/2018 [id number] Ambulatory [facility] ding:OLS.AVE Repository B 09/29/2018/10/02/20 [id number] Agyepong, Inpatient [place] 18 [facility] ding:PCURoom Repository : [id number]: 1 09/29/2018 [id number] Agyepong, Ambulatory BMSBuilding: [place] BMS.[facility] Repository 09/29/2018 [id number] Agyepong, Ambulatory BMSBuilding: [place] BMS.[facility] Repository 09/29/2018 [id number] Agyepong, Ambulatory BMSBuilding: [place] Chase BMS.[facility] Repository 09/29/2018 [id number] Agyepong, Ambulatory BMSBuilding: [place] BMS.[facility] Repository 09/29/2018 [id number] Agyepong, Ambulatory BMSBuilding: [place] Chase BMS.[facility] Repository 09/29/2018 [id number] Agyepong, Ambulatory BMSBuilding: [place] Chase BMS.[facility] Repository 09/29/2018 [id number] Agyepong, Ambulatory BMSBuilding: [place] BMS.[facility] Repository 09/23/2018 [id number] Ambulatory [facility] ding:BFHLAB Repository 09/18/2018/09/18/20 [id number] Ambulatory [address] Repository 08/19/2018/09/17/20 [id number] Christiano Boss Chi Inpatient [address] ding:TCURoom Repository : [id number]: 1 08/14/2018/08/19/20 [id number] Agyepong, Inpatient [place] 18 [facility] ding:PCURoom Repository : [id number]: 1 08/14/2018 [id number] Agyepong, Ambulatory BMSBuilding: [place] BMS.[facility] Repository 08/14/2018 [id number] Agyepong, Ambulatory BMSBuilding: [place] BMS.[facility] Repository 08/14/2018 [id number] Agyepong, Ambulatory BMSBuilding: [place] Chase BMS.[facility] Repository 08/14/2018 [id number] Agyepong, Ambulatory BMSBuilding: [place] Chase BMS.[facility] Repository 08/14/2018 [id number] Agyepong, Ambulatory BMSBuilding: [place] BMS.[facility] Repository 08/14/2018 [id number] Agyepong, Ambulatory BMSBuilding: [place] BMS.[facility] Repository 07/31/2018/08/01/20 [id number] Ambulatory [address] [place] Repository 07/31/2018/07/31/20 [id number] Ambulatory [address] [place] Repository 07/31/2018/08/15/20 [id number] Ambulatory [address] [place] Repository 07/17/2018/07/18/20 [id number] Ambulatory [address] [place] Repository 07/17/2018/07/18/20 [id number] Ambulatory [place] 18 [facility] [place] Repository 07/03/2018/07/03/20 [id number] Ambulatory [place] 18 [facility] [place] Repository 07/03/2018/07/03/20 [id number] Ambulatory [place] [facility] [place] Repository 06/19/2018/06/19/20 [id number] Ambulatory [facility] [place] Repository 06/19/2018/06/19/20 [id number] Ambulatory [facility] [place] Repository 06/05/2018/06/05/20 [id number] Ambulatory [facility] [place] Repository 06/05/2018/06/06/20 [id number] Ambulatory [facility] [place] Repository 05/22/2018/05/23/20 [id number] Ambulatory [place] 18 [facility] [place] Repository 05/22/2018/05/22/20 [id number] Ambulatory [place] 18 [facility] [place] Repository 05/17/2018/05/17/20 [id number] Ambulatory [address] Other [place] Repository 05/17/2018/05/17/20 [id number] Ambulatory [address] MEDICAL Repository CENTERBuildi ng:AGWM 05/17/2018 [id number] Ambulatory [facility] MEDICAL Repository CENTERBuildi ng:AGWM 05/08/2018/05/09/20 [id number] Ambulatory [address] [place] Repository 05/08/2018/05/08/20 [id number] Ambulatory [address] [place] Repository 05/08/2018 [id number] Ambulatory [facility] ding:WC Repository 05/07/2018 [id number] Ambulatory [facility] ding:CVS Repository 04/26/2018/04/27/20 [id number] Ambulatory [address] ding:WC Repository 04/24/2018/04/24/20 [id number] Ambulatory [address] [place] Repository 04/24/2018/04/25/20 [id number] Ambulatory [address] [place] Repository 04/10/2018/04/11/20 [id number] Ambulatory [address] [place] Repository 04/10/2018/04/10/20 [id number] Ambulatory [address] [place] Repository 04/05/2018 [id number] Ambulatory [facility] ding:LABSPEC Repository 03/27/2018/03/27/20 [id number] Ambulatory [address] [place] Repository 03/27/2018/03/27/20 [id number] Ambulatory [address] [place] Repository 03/22/2018/03/28/20 [id number] Ambulatory [place] ding:WC Repository 03/13/2018/03/14/20 [id number] Ambulatory [address] [place] Repository 03/13/2018/03/13/20 [id number] Ambulatory [address] [place] Repository 03/04/2018 [id number] Ambulatory [facility] ding:LAB.FUT Repository URE 03/01/2018 [id number] [facility] [place] [facility] Repository 02/27/2018/02/29/20 [id number] Ambulatory [place] [place] Repository 02/27/2018/02/29/20 [id number] Ambulatory [address] [place] Repository 02/15/2018/02/26/20 [id number] Ambulatory [place] ding:WC Repository 02/13/2018/02/14/20 [id number] Ambulatory [address] [place] Repository 02/13/2018/02/14/20 [id number] Ambulatory [address] [place] Repository 01/30/2018/02/01/20 [id number] Ambulatory [place] 18 [facility] [place] Repository 01/30/2018/01/31/20 [id number] Ambulatory [place] [place] Repository 01/30/2018/02/01/20 [id number] Ambulatory [address] [place] Repository 01/25/2018/01/27/20 [id number] Ambulatory [place] ding:WC Repository 01/18/2018/01/19/20 [id number] Ambulatory [facility] [place] Repository 01/18/2018/01/22/20 [id number] Ambulatory [facility] [place] Repository 01/02/2018/01/04/20 [id number] Ambulatory [facility] [place] Repository 01/02/2018/01/03/20 [id number] Ambulatory [facility] [place] Repository 12/19/2017/12/20/19 [id number] Ambulatory [facility] [place] Repository 12/19/2017/12/19/19 [id number] Ambulatory [facility] [place] Repository 11/21/2017/11/21/19 [id number] Ambulatory [facility] [place] Repository 11/21/2017/11/22/19 [id number] Ambulatory [facility] [place] Repository PAYERS PAYERS ENCOUNTER GUARANTOR PAYER SUBSCRIBER SOURCE 10/31/2018 DOUG Flores [id number] HAPPY Insurance:MEDICARE VASASDOB: [facility] PART A BPolicy Number: [id number] [id number] Repository 32621Vfk: (330) Date:2018-10-31 [phone] () 10/31/2018 Secondary DOUG P Mark Insurance:HUMANA VASASDOB: [facility] [id number] Hospital Number: Repository [id number] Date:9620-10-62MP[address] [address]EF: 10/31/2018 Tertiary NOT GIVENUNK [place] Insurance:SELF PAY [facility] Hospital Number: Effective Repository Date:2018-10-31 10/13/2018 DOUG P Primary DOUG P [place] [id number] HAPPY Insurance:MEDICARE VASASDOB: Community [place] PART A BPolicy Number: [id number], [place] [id number] Repository 12532Vnf: (330) Date:2018-10-13 [phone] () 10/13/2018 Secondary DOUG P Mark Insurance:HUMANA VASASDOB: [facility] [id number] Hospital Number: Repository [id number] Date:8563-01-93MY[address] [address]OE: 10/13/2018 Tertiary NOT GIVENUNK [place] Insurance:SELF PAY [facility] Hospital Number: Effective Repository Date:2018-10-13 10/13/2018 DOUG P Primary DOUG P Mark [id number] [place] Insurance:MEDICARE VASASDOB: Community [place] PART A BPolicy Number: [id number], [place] [id number] Repository 57935Thw: (330) Date:2018-10-13 [phone] () 10/13/2018 Secondary DOUG P Mark Insurance:HUMANA VASASDOB: [facility] [id number] Hospital Number: Repository [id number] Date:6108-33-66JS [address] [address]TJ: 10/13/2018 Tertiary NOT GIVENUNK Mark Insurance:SELF PAY [facility] Hospital Number: Effective Repository Date:2018-10-13 10/13/2018 DOUG P Primary DOUG P [place] [id number] HAPPY Insurance:MEDICARE VASASDOB: [place] PART A BPolicy Number: [id number], [place] [id number] Repository 91683Bla: (330) Date:2018-10-13 [phone] () 10/13/2018 Secondary DOUG P [place] Insurance:HUMANA VASASDOB: [facility] [id number] Hospital Number: Repository [id number] Date:3020-59-32PE [address] [address]XV: 10/13/2018 Tertiary NOT GIVENUNK [place] Insurance:SELF PAY [facility] Hospital Number: Effective Repository Date:2018-10-13 10/13/2018 DOUG P Primary DOUG P [place] [id number] HAPPY Insurance:MEDICARE VASASDOB: [facility] PART A BPolicy Number: [id number], [place] [id number] Repository 71815Zqm: 330) Date:2018-10-13 [phone] () 10/13/2018 Secondary DOUG P Mark Insurance:HUMANA VASASDOB: [facility] [id number] Hospital Number: Repository [id number] Date:0022-64-01JQ [address] [address]BF: 10/13/2018 Tertiary NOT GIVENUNK [place] Insurance:SELF PAY [facility] Hospital Number: Effective Repository Date:2018-10-13 10/13/2018 DOUG P Primary DOUG P Mark [id number] [place] Insurance:LIFECARE [facility]: [id number], [place] [id number] Repository 95210Mum: (330) Date:2018-10-16 [phone] () 10/13/2018 Secondary DOUG P [place] Insurance:MEDICARE VASASDOB: Community PART A BPolicy Number: [id number] Hospital [id number] Repository Date:2018-10-13 10/13/2018 Tertiary DOUG P [place] Insurance:HUMANA VASASDOB: Community COMMERCIALPolicy [id number] Hospital Number: Repository [id number] Date:9522-21-46GX[address] [address]PV: 10/13/2018 Tertiary NOT GIVENUNK Mark Insurance:SELF PAY [facility] Number: Effective Repository Date:2018-10-13 10/12/2018 DOUG P Primary DOUG P [place] [id number] HAPPY Insurance:MEDICARE VASASDOB: [facility] [place] PART A BPolicy Number: [id number], [place] [id number] Repository 42421Myo: (333) Date:2018-10-12 [phone] () 10/12/2018 Secondary DOUG P Mark Insurance:HUMANA VASASDOB: Community COMMERCIALPolicy [id number] Hospital Number: Repository [id number] Date:4544-32-87DR[address] [address]NO: 10/12/2018 Tertiary NOT GIVENUNK [place] Insurance:SELF PAY [facility] Number: Effective Repository Date:2018-10-12 10/08/2018 DOUG P Primary DOUG P Mark [id number] [place] Insurance:MEDICARE VASASDOB: [facility] [place] PART A BPolicy Number: [id number], [place] [id number] Repository 71607Sdv: (221) Date:2018-10-08 [phone] () 10/08/2018 Secondary DOUG P [place] Insurance:HUMANA VASASDOB: Community COMMERCIALPolicy [id number] Hospital Number: Repository [id number] Date:4882-82-26WP[address] [address]NQ: 10/08/2018 Tertiary NOT GIVENUNK Mark Insurance:SELF PAY [facility] Number: Effective Repository Date:2018-10-08 10/08/2018 DOUG P Primary DOUG P [place] [id number] [place]APP[place] Insurance:MEDICARE VASASDOB: [facility] [place] PART A BPolicy Number: [id number], [place] [id number] Repository 94738Xfj: (283) Date:2018-10-089146 () 10/08/2018 Secondary DOUG P [place] Insurance:HUMANA VASASDOB: Community COMMERCIALPolicy [id number] Hospital Number: Repository [id number] Date:0622-81-02LM[address] [address]GK: 10/08/2018 Tertiary NOT GIVENUNK [place] Insurance:SELF PAY [facility] Number: Effective Repository Date:2018-10-08 10/08/2018 DOUG P Primary DOUG P [place] [id number] HAPP[place] Insurance:MEDICARE VASASDOB: [facility] [place] PART A BPolicy Number: [id number], [place] [id number] Repository 84719Qhe: 330) Date:2018-10-081983 () 10/08/2018 Secondary DOUG P Mark Insurance:HUMANA VASASDOB: [facility] COMMERCIALPolicy [id number] Hospital Number: Repository [id number] Date:9557-27-09WX[address] [address]SA: 10/08/2018 Tertiary NOT GIVENUNK [place] Insurance:SELF PAY [facility] Number: Effective Repository Date:2018-10-08 10/08/2018 DOUG P Primary DOUG P Mark [id number] [place] Insurance:MEDICARE VASASDOB: [facility] [place] PART A BPolicy Number: [id number], [place] [id number] Repository 04333Rso: (105) Date:2018-10-085511 () 10/08/2018 Secondary DOUG P Mark Insurance:HUMANA VASASDOB: [facility]Hon[facility] [id number] Hospital Number: Repository [id number] Date:6167-36-32QO[address] [address]WW: 10/08/2018 Tertiary NOT GIVENUNK [place] Insurance:SELF PAY [facility] Number: Effective Repository Date:2018-10-08 10/08/2018 DOUG P Primary DOUG P [place] [id number] [place] Insurance:MEDICARE VASASDOB: [place] PART A BPolicy Number: [id number], [place] [id number] Repository 28115Bhr: (330) Date:2018-10-08 [phone] () 10/08/2018 Secondary DOUG P [place] Insurance:HUMANA VASASDOB: Community COMMERCIALPolicy [id number] Hospital Number: Repository [id number] Date:3596-00-39UL [address] [place] [address]DC: 10/08/2018 Tertiary NOT GIVENUNK [place] Insurance:SELF PAY [facility] Hospital Number: Effective Repository Date:2018-10-08 10/08/2018 DOUG P Primary DOUG P [place] [id number] [place] Insurance:MEDICARE VASASDOB: [place] PART A BPolicy Number: [id number], [place] [id number] Repository 02810Gge: (141) Date:2018-10-08 [phone] () 10/08/2018 Secondary DOUG P [place] Insurance:HUMANA VASASDOB: [facility] [id number] Hospital Number: Repository [id number] Date:4536-85-22AZ [address] [place] [address]NC: 10/08/2018 Tertiary NOT GIVENUNK [place] Insurance:SELF PAY [facility] Hospital Number: Effective Repository Date:2018-10-08 10/08/2018 DOUG P Primary Insurance:SELF NOT GIVENUNK Mark [id number] [place] PAY [facility] Number: Effective [place] Date:2018-10-08 Repository 46099Pyo: (HP) 10/07/2018 DOUG P Primary Insurance:SELF NOT GIVENUNK Mark [id number] [place] PAY [facility] Number: Effective [place] Date:2018-10-07 Repository 59275Vcr: () 10/05/2018 DOUG P Primary Insurance:SELF NOT GIVENUNK Mark [id number] [place] PAY [facility] Number: Effective [place] Date:2018-10-05 Repository 96995Bmr: () 09/29/2018 DOUG P Primary DOUG P Mark [id number] [place] Insurance:MEDICARE VASASDOB: [place] PART A BPolicy Number: [id number], [place] [id number] Repository 34663Vuc: (959) Date:2018-09-28 [phone] () 09/29/2018 Secondary DOUG P [place] Insurance:HUMANA VASASDOB: [facility] [id number] Hospital Number: Repository [id number] Date:7060-04-77CC[address] [address]XK: 09/29/2018 Tertiary NOT GIVENUNK [place] Insurance:SELF PAY [facility] Number: Effective Repository Date:2018-09-28 09/29/2018 DOUG P Primary DOUG P [place] [id number] HAPP[place] Insurance:MEDICARE VASASDOB: [place] PART A BPolicy Number: [id number], [place] [id number] Repository 05102Lsv: (362) Date:2018-09-28 [phone] () 09/29/2018 Secondary DOUG P Mark Insurance:HUMANA VASASDOB: [facility] [id number] Hospital Number: Repository [id number] Date:2862-97-46IZ [address] [place] [address]WJ: 09/29/2018 Tertiary NOT GIVENUNK Mark Insurance:SELF PAY [facility] Number: Effective Repository Date:2018-09-29 09/29/2018 DOUG P Primary DOUG P [place] [id number] [place]APP[place] Insurance:MEDICARE VASASDOB: [place] PART A BPolicy Number: [id number], [place] [id number] Repository 31855Gte: (008) Date:2018-09-28 [phone] () 09/29/2018 Secondary DOUG P Mark Insurance:HUMANA VASASDOB: [facility] [id number] Hospital Number: Repository [id number] Date:7649-49-62PR [address] [address]CL: 09/29/2018 Tertiary NOT GIVENUNK [place] Insurance:SELF PAY [facility] Hospital Number: Effective Repository Date:2018-09-29 09/29/2018 DOUG P Primary DOUG P Mark [id number] HAPP[place] Insurance:MEDICARE VASASDOB: [facility] PART A BPolicy Number: [id number], [place] [id number] Repository 606[address]Fsg: 330) Date:2018-09-28 [phone] () 09/29/2018 Secondary DOUG P [place] Insurance:HUMANA VASASDOB: [facility] [id number] Hospital Number: Repository [id number] Date:7579-58-91CX [address] [address]SG: 09/29/2018 Tertiary NOT GIVENUNK Mark Insurance:SELF PAY [facility] Hospital Number: Effective Repository Date:2018-09-29 09/29/2018 DOUG P Primary DOUG P Mark [id number] [place] Insurance:MEDICARE VASASDOB: [facility] PART A BPolicy Number: [id number], [place] [id number] Repository 08617Igx: (198) Date:2018-09-28 [phone] () 09/29/2018 Secondary DOUG P [place] Insurance:HUMANA VASASDOB: [facility] [id number] Hospital Number: Repository [id number] Date:3916-72-43TJ [address] [address]HL: 09/29/2018 Tertiary NOT GIVENUNK [place] Insurance:SELF PAY [facility] Hospital Number: Effective Repository Date:2018-09-29 09/29/2018 DOUG P Primary DOUG P [place] [id number] HAPPY Insurance:MEDICARE VASASDOB: [place] PART A BPolicy Number: [id number], [place] [id number] Repository 57[address]Bdh: (330) Date:2018-09-286150 () 09/29/2018 Secondary DOUG P Mark Insurance:HUMANA VASASDOB: [facility] [id number] Hospital Number: Repository [id number] Date:0965-14-28OB [address] [place] [address]AW: 09/29/2018 Tertiary NOT GIVENUNK [place] Insurance:SELF PAY [facility] Hospital Number: Effective Repository Date:2018-09-29 09/29/2018 DOUG P Primary DOUG P [place] [id number] HAPPY Insurance:MEDICARE VASASDOB: [facility] PART A BPolicy Number: [id number], [place] [id number] Repository 42[address]Iod: 330) Date:2018-09-283868 () 09/29/2018 Secondary DOUG P [place] Insurance:HUMANA VASASDOB: [facility] [id number] Hospital Number: Repository [id number] Date:5050-99-89UC [address] [place] [address]TC: 09/29/2018 Tertiary NOT GIVENUNK [place] Insurance:SELF PAY [facility] Hospital Number: Effective Repository Date:2018-09-29 09/29/2018 DOUG P Primary DOUG P [place] [id number] HAPPY Insurance:MEDICARE VASASDOB: [facility] [place] PART A BPolicy Number: [id number], [place] [id number] Repository 18[address]Adi: (330) Date:2018-09-282437 () 09/29/2018 Secondary DOUG P [place] Insurance:HUMANA VASASDOB: [facility] [id number] Hospital Number: Repository [id number] Date:1425-39-92AP [address] [address]PU: 09/29/2018 Tertiary NOT GIVENUNK [place] Insurance:SELF PAY [facility] Effective Repository Date:2018-09-29 09/23/2018 DOUG P Primary DOUG P Mark [id number] HAPPY Insurance:MEDICARE VASASDOB: [facility] [place] PART A BPolicy Number: [id number], [place] [id number] Repository 88691Jpg: (101) Date:2018-09-23 [phone] () 09/23/2018 Secondary DOUG P [place] Insurance:HUMANA VASASDOB: [facility] COMMERCIALPolicy [id number] Hospital Number: Repository [id number] Date:3025-05-25OW [address] [address]OE: 09/23/2018 Tertiary NOT GIVENUNK Mark Insurance:SELF PAY [facility] Hospital Number: Effective Repository Date:2018-09-23 08/19/2018 DOUG P Primary DOUG P [place] [id number] HAPPY Insurance:MEDICARE VASASDOB: [facility] [place] PART A BPolicy Number: [id number], [place] [id number] Repository 978[address]Olq: (423) Date:2018-08-19 [phone] () 08/19/2018 Secondary DOUG P Mark Insurance:HUMANA VASASDOB: [facility] [id number] Hospital Number: Repository [id number] Date:9557-65-81FF [address] [address]HT: 08/19/2018 Tertiary NOT GIVENUNK Mark Insurance:SELF PAY [facility] Hospital Number: Effective Repository Date:2018-08-19 08/14/2018 Doug P Primary Doug P Mark [id number] HAPPY Insurance:MEDICARE VasasDOB: [facility] [place] PART A BPolicy Number: [id number], [place] [id number] Repository 245[address]Ubt: (911) Date:2018-08-14 [phone] (HP) 08/14/2018 Secondary Doug P Mark Insurance:HUMANA VasasDOB: Community COMMERCIALPolicy [id number] Hospital Number: Repository [id number] Date:0633-35-95QV[address] [address]VE: 08/14/2018 Tertiary NOT GIVENUNK [place] Insurance:SELF PAY [facility] Number: Effective Repository Date:2018-08-14 08/14/2018 Doug P Primary Doug P [place] [id number] HAPPY Insurance:MEDICARE VasasDOB: [facility] [place] PART A BPolicy Number: [id number], [place] [id number] Repository 18[address]Ojr: ([phone]) Date:2018-08-14 [phone] () 08/14/2018 Secondary Doug P Mark Insurance:HUMANA VasasDOB: [facility] [id number] Hospital Number: Repository [id number] Date:6137-52-36NK[address] [address]PX: 08/14/2018 Tertiary NOT GIVENUNK [place] Insurance:SELF PAY [facility] Number: Effective Repository Date:2018-08-14 08/14/2018 DOUG P Primary DOUG P [place] [id number] HAPPY Insurance:MEDICARE VASASDOB: [facility] [place] PART A BPolicy Number: [id number], [place] [id number] Repository 815[address]Qzb: (580) Date:2018-08-14 [phone] () 08/14/2018 Secondary DOUG P [place] Insurance:HUMANA VASASDOB: [facility] COMMERCIALPolicy [id number] Hospital Number: Repository [id number] Date:8268-19-09HA[address] [address]OS: 08/14/2018 Tertiary NOT GIVENUNK [place] Insurance:SELF PAY [facility] Number: Effective Repository Date:2018-08-14 08/14/2018 Doug P Primary Doug P [place] [id number] HAPPY Insurance:MEDICARE VasasDOB: [facility] [place] PART A BPolicy Number: [id number], [place] [id number] Repository 18837Vrf: 330) Date:2018-08-145640 () 08/14/2018 Secondary Doug P Mark Insurance:HUMANA VasasDOB: [facility] [id number] Hospital Number: Repository [id number] Date:3949-15-86HS[address] [address]NQ: 08/14/2018 Tertiary NOT GIVENUNK Mark Insurance:SELF PAY [facility] Hospital Number: Effective Repository Date:2018-08-14 08/14/2018 Doug P Primary Doug P [place] [id number] HAPPY Insurance:MEDICARE VasasDOB: [facility] [place] PART A BPolicy Number: [id number], [place] [id number] Repository 17851Tbj: 330) Date:2018-08-149261 () 08/14/2018 Secondary Doug P Mark Insurance:HUMANA VasasDOB: [facility] [id number] Hospital Number: Repository [id number] Date:6412-18-53JG[address] [address]LH: 08/14/2018 Tertiary NOT GIVENUNK [place] Insurance:SELF PAY [facility] Hospital Number: Effective Repository Date:2018-08-14 08/14/2018 Doug P Primary Doug P [place] [id number] HAPPY Insurance:MEDICARE VasasDOB: [facility] [place] PART A BPolicy Number: [id number], [place] [id number] Repository 97[address]Ote: 330) Date:2018-08-140610 () 08/14/2018 Secondary Doug P [place] Insurance:HUMANA VasasDOB: [facility] [id number] Hospital Number: Repository [id number] Date:9448-41-59CB [address] [address]LW: 08/14/2018 Tertiary NOT GIVENUNK Mark Insurance:SELF PAY [facility] Number: Effective Repository Date:2018-08-14 08/14/2018 Doug P Primary Doug Flores [id number] HAPPY Insurance:MEDICARE VasasDOB: [facility] [place] PART A BPolicy Number: [id number] Hospital [place] [id number] Repository [address]Eak: ([phone]) Date:2018-08-14 [phone] (HP) 08/14/2018 Secondary Doug Flores Insurance:HUMANA VasasDOB: [facility] [id number] Hospital Number: Repository [id number] Date:5850-15-53CI[address] [address]QF: 08/14/2018 Tertiary NOT GIVENUNK [place] Insurance:SELF PAY [facility] Number: Effective Repository Date:2018-08-14 05/17/2018 DOUG Primary DOUG Romero General VASASDOB: Insurance:MEDICARE A VASASDOB: [facility] AND BPolicy Number: [id number] Repository [place] [id number] [place], [place] Date: [address]Rvq: (HP) 05/17/2018 Secondary DOUG Romero General Insurance:HUMANA VASASDOB: [facility] MEDICARE [id number] Repository SUPPLEMENTPolicy Number: [id number] Date: 05/17/2018 DOUG Primary DOUG Romero General VASASDOB: Insurance:MEDICARE A VASASDOB: [facility] AND BPolicy Number: [id number] Repository [place] [id number] [place], [place] Date: [address]Btn: (HP) 05/17/2018 Secondary DOUG Romero General Insurance:HUMANA VASASDOB: [facility] MEDICARE [id number] Repository SUPPLEMENTPolicy Number: [id number] Date: 05/08/2018 Doug P Primary Doug [place] [id number] [place] Insurance:MEDICARE VasasDOB: [facility] [place] PART A BPolicy Number: [id number], [place] [id number] Repository 34[address]Bjr: 330) Date:2018-01-256572 () 05/08/2018 Secondary Doug P Mark Insurance:HUMANA VasasDOB: Community COMMERCIALPolicy [id number] Hospital Number: Repository [id number] Date:5110-63-13UN [address] [place] [address]BM: 05/08/2018 Tertiary NOT GIVENUNK [place] Insurance:SELF PAY [facility] Hospital Number: Effective Repository Date:2018-04-28 05/07/2018 Doug P Primary Doug P Mark [id number] HAPPY Insurance:MEDICARE VasasDOB: [facility] [place] PART A BPolicy Number: [id number], [place] [id number] Repository [address]Vbb: 330) Date:2018-04-229593 () 05/07/2018 Secondary Doug P [place] Insurance:HUMANA VasasDOB: [facility] [id number] Hospital Number: Repository [id number] Date:8101-13-76FM [address] [place] [address]UV: 05/07/2018 Tertiary NOT GIVENUNK Mark Insurance:SELF PAY [facility] Hospital Number: Effective Repository Date:2018-04-22 04/26/2018 Doug P Primary Doug P Mark [id number] [place] Insurance:MEDICARE VasasDOB: [facility] PART A BPolicy Number: [id number], [place] [id number] Repository [address]Ufz: 330) Date:2018-01-25 [phone] () 04/26/2018 Secondary Doug P Mark Insurance:HUMANA VasasDOB: [facility] [id number] Hospital Number: Repository [id number] Date:0451-33-86WR [address] [place] [address]SP: 04/26/2018 Tertiary NOT GIVENUNK [place] Insurance:SELF PAY [facility] Hospital Number: Effective Repository Date:2018-03-29 04/05/2018 Doug P Primary Doug P [place] [id number] [place] Insurance:MEDICARE VasasDOB: [facility] [place] PART A BPolicy Number: [id number], [place] [id number] Repository [address]Vws: 330) Date:2018-04-05 [phone] (HP) 04/05/2018 Secondary Doug P Mark Insurance:HUMANA VasasDOB: Community COMMERCIALPolicy [id number] Hospital Number: Repository [id number] Date:0619-37-58PQ[address] [address]AV: 04/05/2018 Tertiary NOT GIVENUNK [place] Insurance:SELF PAY [facility] Hospital Number: Effective Repository Date:2018-04-05 03/22/2018 Doug P Primary Doug P Mark [id number] [place] Insurance:MEDICARE VasasDOB: [facility] [place] PART A BPolicy Number: [id number], [place] [id number] Repository [address]Ude: Date:2018-01-25 ~33 0-4 (HP) 03/22/2018 Secondary Doug P Mark Insurance:HUMANA VasasDOB: [facility] [id number] Hospital Number: Repository [id number] Date:4951-21-38LM[address] [address]UH: 03/22/2018 Tertiary NOT GIVENUNK [place] Insurance:SELF PAY [facility] Hospital Number: Effective Repository Date:2018-02-26 03/04/2018 Doug P Primary Doug P [place] [id number] [place] Insurance:MEDICARE VasasDOB: [facility] [place] PART A BPolicy Number: [id number], [place] [id number] Repository [address]Ark: Date:2018-03-04 ~33 0-4 (HP) 03/04/2018 Secondary Doug P [place] Insurance:HUMANA VasasDOB: Community COMMERCIALPolicy [id number] Hospital Number: Repository [id number] Date:7292-89-67QG[address] [address]EX: 03/04/2018 Tertiary NOT GIVENUNK [place] Insurance:SELF PAY [facility] Number: Effective Repository Date:2018-03-04 03/01/2018 Doug Peter Primary Doug Peter [place] [id number] [place] Insurance:MEDICARE VasasDOB: [facility] [place] PART A BPolicy Number: [id number], [place] [id number] Repository [address]Hfe: Date:2018-03-01 ~33 0-4 (HP) 03/01/2018 Secondary Doug Peter [place] Insurance:HUMANA VasasDOB: [facility] [id number] Hospital Number: Repository [id number] Date:8483-51-92YX[address] [address]BB: 03/01/2018 Tertiary NOT GIVENUNK [place] Insurance:SELF PAY [facility] Number: Effective Repository Date:2018-03-01 02/15/2018 Doug Peter Primary Doug Peter Mark [id number] [place] Insurance:MEDICARE VasasDOB: [facility] [place] PART A BPolicy Number: [id number], [place] [id number] Repository [address]Bpc: Date:2018-01-25 ~33 0-4 (HP) 02/15/2018 Secondary Doug Peter [place] Insurance:HUMANA VasasDOB: [facility] [id number] Hospital Number: Repository [id number] Date:3543-11-64XQ[address] [address]BY: 02/15/2018 Tertiary NOT GIVENUNK [place] Insurance:SELF PAY [facility] Number: Effective Repository Date:2018-01-27 01/25/2018 Doug Peter Primary Doug Peter [place] [id number] [place] Insurance:MEDICARE VasasDOB: [facility] [place] PART A BPolicy Number: [id number] [place], [place] [id number] Repository [address]Gnf: Date:2018-01-25 ~33 0-4 (HP) 01/25/2018 Secondary Doug P [place] Insurance:HUMANA VasasDOB: [facility] [id number] Hospital Number: Repository [id number] Date:5388-71-59[address] [address]PGMUTAASA, [place] [address]XE: 01/25/2018 Tertiary NOT GIVENUNK [place] Insurance:SELF PAY [facility] Hospital Number: Effective Repository Date:2018-01-25
== END 2018-10-16 17:29 | disposition hospice, home (50) | DRG 727 ==
LOC: ED 05:51 → PCU 08:01
PROVIDERS: Emergency Medicine; Physician Assistant; Admitting Provider Internal Medicine; Emergency Provider Emergency Medicine; Family Provider Family Medicine; PCP Family Medicine; Visit Provider Internal Medicine
DX: B37.49 Other urogenital candidiasis (principal); J96.21 Acute and chronic respiratory failure with hypoxia; G93.41 Metabolic encephalopathy; J96.22 Acute and chronic respiratory failure with hypercapnia; A04.72 Enterocolitis due to Clostridium difficile, not specified as recurrent; I13.0 Hypertensive heart and chronic kidney disease with heart failure and stage 1 through stage 4 chronic kidney disease, or unspecified chronic kidney disease; I50.32 Chronic diastolic (congestive) heart failure; Z66 Do not resuscitate; T42.4X5A Adverse effect of benzodiazepines, initial encounter; Z86.73 Personal history of transient ischemic attack (TIA), and cerebral infarction without residual deficits; N40.0 Benign prostatic hyperplasia without lower urinary tract symptoms; N18.3 Chronic kidney disease, stage 3 (moderate); I27.20 Pulmonary hypertension, unspecified; I89.0 Lymphedema, not elsewhere classified; F32.9 Major depressive disorder, single episode, unspecified; I48.2 Chronic atrial fibrillation; R13.10 Dysphagia, unspecified; M10.9 Gout, unspecified; E78.5 Hyperlipidemia, unspecified; D63.1 Anemia in chronic kidney disease; I25.10 Atherosclerotic heart disease of native coronary artery without angina pectoris
CPT/HCPCS: 36415; 36600; 70450; 71045; 80048; 80053; 81001; 82803; 83605; 83880; 84484; 85025; 87040; 87086; 87088; 93005; 94002; 94003; 97162; 97165; 97530; 99251; 99285; J0885; J7030; P9612; A4216; G0463; J1940